=== PATIENT | male | born 1940 | race Caucasian/White ===

== ENCOUNTER → 2020-01-08 07:48 | Outpatient (CLI) | payer MEDICARE, SELFPAY ==
[2019-12-22 15:06] VITALS: BMI 30.8
--- NOTE | 2020-01-08 07:53 | ECHOD_ITS ---
Reason For Study: DYSPNEA Procedure This was a 2D Doppler, Color Flow transthoracic echocardiogram. Exam performed in department. Left Ventricle Normal LV size. Mild concentric left ventricular hypertrophy. The estimated ejection fraction is 53 %. Post operative septal motion. Normal diastology for age. No regional wall motion abnormalities noted. Right Ventricle Normal RV size. Normal systolic function. Tricuspid Valve Normal tricuspid valve. Mild tricuspid valve insufficiency. Pulmonary artery systolic pressure is 28 mmHg. Aortic Valve Mean aortic valve gradient 5 mmHg. Bioprosthetic aortic valve. Great Vessels Normal aortic root. The pulmonary artery is normal size. Normal inferior vena cava. Pericardium/Pleural No pericardial effusion. MMode/2D Measurements & Calculations LVIDd: 4.5 cm IVSd: 1.4 cm LVOT diam: 2.0 cm LVIDs: 3.0 cm LVPWd: 1.3 cm RVDd: 4.1 cm FS: 33.7 % LVOT area: 3.3 cm2 Ao root diam: 4.2 cm LAV(MOD-bp): 54.1 ml LVAd ap4: 34.2 cm2 LAV(MOD-bp) Indexed: 27.0 ml/m2 EDV(MOD-sp4): 110.6 ml LAV(MOD-sp2): 42.4 ml EDV(sp4-el): 113.0 ml LAV(MOD-sp4): 62.2 ml LVAs ap4: 19.7 cm2 ESV(MOD-sp4): 51.0 ml ESV(sp4-el): 46.3 ml EF(MOD-sp4): 53.9 % EF(sp4-el): 59.0 % SV(MOD-sp4): 59.7 ml SV(sp4-el): 66.7 ml LA A4 area: 19.7 cm2 LA dimension(2D): 5.2 cm RA A4 area: 16.6 cm2 Time Measurements MV dec time: 0.21 sec Doppler Measurements & Calculations MV E max nathaniel: 98.1 cm/sec Lat Peak E' Nathaniel: 10.3 cm/sec Med Peak E' Nathaniel: 3.4 cm/sec MV A max nathaniel: 96.5 cm/sec E/E' lat: 9.6 E/E' med: 29.2 MV E/A: 1.0 MV V2 max: 95.2 cm/sec Ao V2 max: 158.4 cm/sec LV V1 max: 74.4 cm/sec MV max P.6 mmHg Ao max P.0 mmHg LV V1 max P.2 mmHg MV V2 mean: 49.8 cm/sec Ao V2 mean: 107.6 cm/sec LV V1 mean P.3 mmHg MV mean P.3 mmHg Ao mean P.2 mmHg LV V1 mean: 53.4 cm/sec MV V2 VTI: 36.7 cm Ao V2 VTI: 36.6 cm LV V1 VTI: 19.1 cm MVA(VTI): 1.7 cm2 VIANEY(I,D): 1.7 cm2 VIANEY(V,D): 1.5 cm2 SV(LVOT): 62.6 ml PA V2 max: 159.0 cm/sec TR max nathaniel: 242.5 cm/sec TR max P.5 mmHg MV P1/2t-pr_phl: 93.4 msec Interpretation Summary Normal LV size. Mild concentric left ventricular hypertrophy. The estimated ejection fraction is 53 %. Normal diastology for age. Bioprosthetic aortic valve. Mean aortic valve gradient 5 mmHg. Ordering Physician: Aramis Larson Referring Physician: JOHNNY FRANCIS Performed By: Lyly Sanders, PÉREZ, RVT
[2020-01-08 10:40] LABS: T4 Free Direct 0.85 ng/dL (0.76-1.46)
[2020-01-08 12:25] LABS: BNP,B-Type NATRIURETIC PEPTIDE 156.3 pg/mL (0-100)
== END ==
PROVIDERS: PCP Family Medicine; Referring Provider Internal Medicine Cardiovascular Disease; Visit Provider Internal Medicine Cardiovascular Disease
DX: R06.00 Dyspnea, unspecified (principal); R06.02 Shortness of breath; I25.10 Atherosclerotic heart disease of native coronary artery without angina pectoris; Z95.2 Presence of prosthetic heart valve; M79.89 Other specified soft tissue disorders; R79.89 Other specified abnormal findings of blood chemistry
CPT/HCPCS: 36415; 83880; 84439; 84443; 93306

== ENCOUNTER → 2024-05-08 | Outpatient (CLI) | payer MEDICARE, SELFPAY ==
--- NOTE | 2024-05-08 12:53 | VDLE_ITS ---
Reason For Study: PAIN RIGHT LEFT GSV is normal. GSV is normal. CFV is compressible, spontaneous, phasic, CFV is compressible, spontaneous, phasic, competent and demonstrates normal competent, and demonstrates normal augmentation. augmentation. FV is compressible, spontaneous, phasic, FV is compressible, spontaneous, phasic, competent and demonstrates normal competent and demonstrates normal augmentation. augmentation. POP V is compressible, spontaneous, phasic, POP V is compressible, spontaneous, phasic, competent and demonstrates normal competent and demonstrates normal augmentation. augmentation. T/P Trunk is compressible. T/P Trunk is compressible. PTV is compressible. PTV is compressible. RT PerV is compressible. LT PerV is compressible. NON-VASCULAR structure noted in RT POP FOSSA measuring 3.46 cm x 1.54 cm. Procedure This is a venous duplex using B-mode, color flow and spectral Doppler. Exam performed in department. A preliminary report was called and/or faxed to Cristal Giron @ [phone] @ 13:20. VL/Venous Duplex US - Claudy Extrem Interpretation Summary Deep veins of the lower extremities are bilaterally patent and compressible seg mentally. There is no evidence of deep vein thrombosis on either side. Valvular competence appears in tact within the proximal deep venous systems bilaterally. The great saphenous veins appear bila terally patent and compressible segmentally. A non-vascular, hypoechoic structure is noted in the right popliteal space, measuring 3.46 cm x 1.54 cm. This probably represents a popliteal cyst. Clinical correlation is advised. Ordering Physician: Cristal Giron Referring Physician: Oniel Posada Performed By: Ashtyn Foster, JAZLYNCS, RVT
== END | disposition home or self-care (01) ==
LOC: CVS 12:46
PROVIDERS: PCP Family Medicine; Referring Provider Nurse Practitioner Family; Visit Provider Nurse Practitioner Family
DX: M79.604 Pain in right leg (principal); M79.605 Pain in left leg; R60.0 Localized edema
CPT/HCPCS: 93970

== ENCOUNTER 2025-01-19 03:53 | Observation (INO) | payer MEDICARE, SELFPAY ==
[2025-01-19] VITALS (15 sets, daily range): BP systolic 116–157; BP diastolic 59–98; PULSE 59–69; RESP 17–18; TEMP 36.3–36.8; O2SAT 86–96; BMI 33.4; BMI 32.0
--- NOTE | 2025-01-19 04:00 | CT_ITS ---
PROCEDURE: STROKE BRAIN/HEAD WITHOUT CONT 01/19/2025 REASON FOR EXAM: NEURO DEFICIT, ACUTE, STROKE SUSPECTED TECHNIQUE: STROKE BRAIN/HEAD WITHOUT CONT Coronal and Sagittal reconstruction series were provided. One or more dose reduction techniques were used (e.g., Automated exposure control, adjustment of the mA and/or kV according to patient size, use of iterative reconstruction technique. RADIATION DOSE SUMMARY: CTDlvol: 44.99 mGy DLP: 812 mGycm COMPARISON: None. FINDINGS: Mild diffuse cortical atrophy, commensurate with the patient's age. Scattered hypodense foci in the periventricular and subcortical white matter suggestive of chronic ischemic white matter disease. Normal size of the ventricles and extra-axial spaces for the patient's age. Normal basal ganglia and thalami. Normal brainstem. Normal cerebellum. There is no demonstrated extra-axial, intraparenchymal, or intraventricular hemorrhage. There are no findings of an acute ischemic infarction. Normal calvarium. There is no demonstrated fracture. Normal soft tissue structures. Mild chronic mucosal inflammatory changes of the visualized paranasal sinuses. CT/STROKE Brain/Head without Cont IMPRESSION: No CT evidence for acute brain abnormality. Reading Location: [facility]
--- NOTE | 2025-01-19 04:00 | EKG12_ITS ---
Test Reason : NEURO Blood Pressure : */* mmHG Vent. 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
--- NOTE | 2025-01-19 04:03 | CT_ITS ---
PROCEDURE: STROKE CTA HEAD AND NECK W/CON 01/19/2025 REASON FOR EXAM: NEURO DEFICIT, ACUTE, STROKE SUSPECTED TECHNIQUE: STROKE CTA HEAD AND NECK W/CON Multiplanar Sagittal and Coronal images were obtained. CONTRAST: Isovue-300 70 VOLUME: 100 mL One or more dose reduction techniques were used (e.g., Automated exposure control, adjustment of the mA and/or kV according to patient size, use of iterative reconstruction technique). RADIATION DOSE SUMMARY: CTDlvol: 19.77 mGy DLP: 816 mGycm COMPARISON: CT scan of the head on 01/19/2025. FINDINGS: Normal bilateral petrous carotid arteries. Calcified atheromatous plaques with mild multifocal stenosis of the right cavernous carotid artery with a normal supraclinoid bifurcation. Calcified atheromatous plaques with mild multifocal stenosis of the left cavernous carotid artery with a normal supraclinoid bifurcation. Normal right A1 segments of the anterior cerebral artery. Normal left A1 segments of the anterior cerebral artery. Normal intact anterior communicating artery (ACOM). Normal bilateral A2 segments of the anterior cerebral arteries. Normal right M1 and M2 segments of the middle cerebral arteries, with a normal M1 bifurcation. Normal left M1 and M2 segments of the middle cerebral arteries, with a normal M1 bifurcation. Normal right posterior communicating artery (PCOM). Normal left posterior communicating artery (PCOM). Normal bilateral vertebral arteries. Normal basilar artery with a normal basilar bifurcation. The visualized bilateral superior cerebellar (SCA) arteries are normal. Normal bilateral P1, P2 and visualized P3 segments of the posterior cerebral arteries. There is no demonstrated aneurysm of the [place]. There is no major vessel occlusion or hemodynamically significant stenosis. There is no demonstrated abnormality of the visualized brain. Technique: Axial CT angiographic images of the neck. Reformatted coronal and sagittal images. 3D, MIP images. Reconstructed images were reviewed on a different workstation by radiologist. RIGHT CAROTID ARTERIES: Normal right common carotid artery (CCA). 20% stenosis of the right common carotid bulb. 20% stenosis of the origin of the right internal carotid (ICA) artery without a hemodynamically significant stenosis. Normal visualized cervical portion of the right internal carotid artery. Normal origin of the right external carotid artery (ECA). LEFT CAROTID ARTERIES: Normal left common carotid artery (CCA). 20% stenosis of the left common carotid bulb. 20% stenosis of the origin of the left internal carotid (ICA) artery without a hemodynamically significant stenosis. Normal visualized cervical portion of the left internal carotid artery. Normal origin of the left external carotid artery (ECA). VERTEBRAL ARTERIES: 20% stenosis of the bilateral vertebral artery without a hemodynamically significant stenosis. CT/STROKE CTA Head AND Neck W/Con IMPRESSION: Atherosclerosis without high-grade stenosis. [facility]
--- OUTSIDE RECORDS SUMMARY | 2025-01-19 04:06 | XMS RPT_ITS | CCD ---
Author Organization [facility] Care Securities Clerk Name Role Phone KIZZY BAILEY Attending Unavailable KIZZY BAILEY Referring Unavailable Oniel Francis Primary Care Unavailable KIZZY BAILEY Attending Unavailable KIZZY BAILEY Referring Unavailable Oniel Francis Primary Care Unavailable ARLENE ROMAN Admitting Unavailable ARLENE ROMAN Attending Unavailable Oniel Francis Primary Care Unavailable Oniel Francis MD Primary Care Provider No, Referral Unavailable Unavailable Oniel Francis MD Primary Care Provider Oniel Francis MD Primary Care Provider Oniel Francis MD Primary Care Provider [phone] No, Referral Unavailable Unavailable No, Referral Unavailable Unavailable Oniel Francis MD Primary Care Provider Oniel Francis MD Primary Care Provider ONIEL FRANCIS MD Primary Care Physician [facility] PT Amy Unavailable Unavailable JAVI BARTH, DR DEAN Abbott Attending Unavailab Roseanne BARTH, ONIEL Abbott Primary Care Unavailable JAVI BARTH, DR DEAN Abbott Attending UnavailONIEL Doe MD Primary Care Unavailable JAVI BARTH, DR DEAN Abbott Attending Unavailab Roseanne BARTH, ONIEL Abbott Primary Care Unavailable DR DEAN CALDWELL MD Admitting Unavailab AMY [employer] Unavailable Oniel Francis Primary Care Unavailable Zina Duran Referring Unavailable Zina Duran Attending Unavailable Bree CLOTH WIRE WEAVERZina PATEL Unavailable Ella Valdovinos PA-C Unavailable [phone] Oniel Francis MD Primary Care Provider TITO, ONIEL A Primary Care Unavailable TITO, ONIEL A Referring Unavailable TITO, ONIEL A Primary Care Unavailable TITO, ONIEL A Referring Unavailable TITO, ONIEL A Primary Care Unavailable ELLA VALDOVINOS Attending Unavailable ZINA DURAN Referring Unavailable TITO, ONIEL A Primary Care Unavailable TITO, ONIEL A Primary Care Unavailable SELF Referring Unavailable ABBY PATE Attending Unavailable TITO, ONIEL A Primary Care Unavailable TITO, ONIEL A Attending Unavailable TITO, ONIEL A Primary Care Unavailable ELLA VALDOVINOS Attending Unavailable ZINA DURAN Attending Unavailable TITO, ONIEL A Primary Care Unavailable MARJ MACKEY Attending Unavailable MARJ MACKEY Referring Unavailable TITO, ONIEL A Primary Care Unavailable MARJ MACKEY Referring Unavailable TITO, ONIEL A Primary Care Unavailable ABBY PATE Attending Unavailable ABBY PATE Referring Unavailable TITO, ONIEL A Primary Care Unavailable MARJ MACKEY Referring Unavailable TITO, ONIEL A Primary Care Unavailable TITO, ONIEL A Primary Care Unavailable SHAMAR BARLOW Referring Unavailable TITO, ONIEL A Primary Care Unavailable TITO, ONIEL A Primary Care Unavailable MARJ MACKEY Attending Unavailable MARJ MACKEY Referring Unavailable Tito , Dr. Engle Primary Care Provider [phone] Dr. Aramis Larson MD Attending Provider Allergies Allergy Classification Reported Allergen(s) Allergy Type Date of Onset Reaction(s) Facility Iodine (and Iodine containting drugs) (2 sources) Iodine Drug Allergy 3 Other: See Comments [facility] Penicillins (antibiotic) (2 sources) Penicillin G Drug Allergy [address] [facility] (20 sources) Iodine; Translations: [IODINE] Drug Allergy 3 Other: See Comments [facility] Repository (20 sources) Penicillin; Translations: [PENICILLIN G] Drug Allergy 3 [facility] [place] Repository (3 sources) Contrast media; Translations: [iodinated radiocontrast agents] Allergy to substance Hypotension [facility] (3 sources) Penicillin; Translations: [penicillin] Drug Allergy Rash [facility] (1 source) Penicillins Drug allergy (disorder) 1 [facility] Repository (1 source) Penicillins Allergy to substance 1 [facility] Medications Current Medications Medication Drug Class(es) Dates Sig (Normalized) Sig (Original) acetaminophen 500 mg oral capsule (20 sources) Start: 02-19-2024 End: 03-04-2024 take 1 capsule by mouth once daily acetaminophen 500 mg oral capsule Dose : 1,000 mg = 2 cap(s), Oral, TID, PRN for pain, not to exceed 3000 mg/day, # 100 cap(s), 0 Refill(s), 03/04/24 8:41:00 AM EDT, Pharmacy: [facility]/pharmacy #[id number], 170.2, cm, 02/18/24 17:02:00 EDT, Height, kg, 02/18/24 17:02:00 EDT, Dosing Weight Start Date: 02/19/24 Stop Date: 03/04/24 Status: Ordered Start: 05-29-2019 take 2 tablets by mo uth three times daily as needed Acetaminophen 500 mg tablet Active 1000 mg PO THREE TIMES A DAY as needed May 29, 2019 12:00am take 2 tablets by mo uth every eight hours as needed acetaminophen (TYLENOL) 500 mg tablet Take 1,000 mg by mouth every 8 hours as needed for Pain. Active Comment on above: Take 1,000 mg by filemon th every 8 hours as needed for Pain. acetaminophen 500 mg / diphenhydrAMINE hydrochloride 25 mg oral tablet (3 sources) Histamine-1 Receptor Antagonist Start: 4 take 1 tablet by mouth once daily at bedtime as needed for pain Tylenol PM Extra Strength oral tablet Dose = 2 tab(s), Oral, qHS, PRN as needed for pain, # 20 tab(s), 0 Refill(s) Start Date: 01/27/24 Status: Ordered aspirin 81 mg chewable tablet (20 sources) Platelet Aggregation Inhibitor, Nonsteroidal Anti-inflammatory Drug Start: 0 take 1 tablet by mouth once daily Aspirin 81 mg tablet,chewable Active 81 mg PO DAILY December 22, 2019 3:09pm Start: 12-11-2019 take 1 tablet by filemon th once daily aspirin, enteric coated (ECOTRIN LOW STRENGTH) 81 mg EC tablet Take 1 tablet by mouth once daily. 12/11/2019 Active Start: 06-03-2019 End: 12-22-2019 take 2 tablets by mouth twice daily Aspirin 81 mg tablet,chewable Discontinued 162 mg PO TWICE A DAY June 03, 2019 9:19am December 22, 2019 3:11pm Start: 05-29-2019 End: 06-03-2019 take 2 tablets by mouth once daily Aspirin 81 mg tablet,chewable Discontinued 162 mg PO DAILY May 29, 2019 1:55pm June 03, 2019 9:22am Start: 05-28-2016 End: 05-29-2019 take 1 tablet by mouth every other day Aspirin 81 MG tablet,chewable Discontinued 81 mg PO EVERY OTHER DAY May 28, 2016 12:00am May 29, 2019 2:01pm Comment on above: Take 1 tablet by filemon th once daily. atorvastatin 80 mg oral tablet (20 sources) HMG-CoA Reductase Inhibitor Start: End: take 1 tablet by mouth once daily atorvastatin (LIPITOR) 80 mg tablet Indications: Mixed hyperlipidemia Take 1 tablet by mouth once daily. 90 tablet 1 11/02/2024 Active Start: 07-31-2023 take 1 tablet by filemon th once daily atorvastatin (LIPITOR) 80 mg tablet Indications: Mixed hyperlipidemia Take 1 tablet by mouth once daily. 90 tablet 1 07/31/2023 Active Start: 12-25-2022 take 1 tablet by filemon th once daily atorvastatin (LIPITOR) 80 mg tablet Indications: Mixed hyperlipidemia Take 1 tablet by mouth once daily. 90 tablet 1 12/25/2022 Active Start: 12-13-2021 End: 06-22-2022 take 1 tablet by mouth once daily atorvastatin (LIPITOR) 80 mg tablet Indications: Mixed hyperlipidemia Take 1 tablet by mouth once daily. 90 tablet 1 06/22/2022 Active Start: 05-28-2016 End: 11-07-2021 take 1 tablet by mouth once daily atorvastatin (LIPITOR) 40 mg tablet Indications: Mixed hyperlipidemia Take 1 tablet by mouth once daily. 90 tablet 1 11/08/2021 Active Comment on above: Take 1 tablet by filemon th once daily. carbidopa 25 mg / levodopa 100 mg oral tablet (20 sources) Aromatic Amino Acid Decarboxylation Inhibitor, Aromatic Amino Acid Start: End: take 3 tablets by mouth three times daily carbidopa-levodopa (SINEMET 25-100) 25-100 mg per tablet Indications: Parkinson's disease with dyskinesia and fluctuating manifestations (HCC) Take 3 tablets by mouth three times a day. 810 tablet 3 09/11/2024 09/11/2025 Active Comment on above: Take 3 tablets by mo uth three times daily. TAKE 3 TABLETS 3 GUSTAVO ES A DAY cholecalciferol 0.025 mg oral tablet (20 sources) Vitamin D Start: take 1 tablet by mouth twice daily Cholecalciferol (Vitamin D3) 25 mcg (1,000 unit) tablet Active 2000 U PO TWICE A DAY February 03, 2021 8:49am Start: 05-29-2019 End: 02-03-2021 take 1 tablet by mouth once daily Cholecalciferol (Vitamin D3) 1,000 unit (25 mcg) tablet Discontinued 4000 U PO DAILY May 29, 2019 1:58pm February 03, 2021 8:52am Start: 06-25-2016 take 2 tablets by mo uth once daily Cholecalciferol, Vitamin D3, 2,000 unit cap Take 2 tablets by mouth once daily. 0 06/25/2016 Active Start: 05-28-2016 End: 05-29-2019 take 2 tablets by mouth twice daily Cholecalciferol (Vitamin D3) 1,000 UNIT tablet Discontinued 2000 U PO TWICE A DAY May 28, 2016 12:00am May 29, 2019 2:01pm Comment on above: Take 2 tablets by mo ut once daily. clindamycin 150 mg oral capsule (20 sources) Lincosamide Antibacterial Start: 02-04-20 take 4 capsules by mouth once as needed Clindamycin Hcl 150 mg capsule Active 600 mg PO ONCE as needed February 03, 2021 12:00am Start: 12-29-2019 clindamycin (C LEOCIN) 150 mg capsule Take 4 tabs 30-60 min before dental procedures. 4 capsule 3 12/29/2019 Active Comment on above: Take 4 tabs 30-60 mi n before dental procedures. SENOKOT-S (2 sources) Start: 02-19-2024 Senokot S Dose = 2 tab(s), Oral, BID, Take until first bowel movement, then as needed, 0 Refill(s) Start Date: 02/19/24 Status: Ordered Start: 05-29-2019 End: 06-03-2019 Sennosides-Docusate Sodium ( Senna-S) 8.6-50 mg tablet Discontinued 1 {tbl} PO TWICE A DAY as needed May 29, 2019 12:00am June 03, 2019 9:21am doxycycline hyclate 100 mg oral tablet (3 sources) Tetracycline-class Drug Start: 12-14-2023 End: 12-21-2023 take 1 tablet by mouth twice daily doxycycline (VIBRA-TABS) 100 mg tablet Indications: Acute cough Take 1 tablet by mouth two times a day for 7 days. 14 tablet 0 12/14/2023 12/21/2023 Active Start: 02-19-2022 End: 02-26-2022 take 1 tablet by mouth twice daily doxycycline monohydrate 100 mg tablet Indications: Rash Take 1 tablet by mouth twice daily for 7 days. 14 tablet 0 02/19/2022 02/26/2022 Active Comment on above: Take 1 tablet by filemon twice daily for 7 days. ezetimibe 10 mg oral tablet (20 sources) Dietary Cholesterol Absorption Inhibitor Start: End: take 1 tablet by mouth once daily ezetimibe (ZETIA) 10 mg tablet Indications: Hyperlipidemia, unspecified hyperlipidemia type Take 1 tablet by mouth once daily. 90 tablet 3 08/31/2024 Active Start: 10-31-2023 End: 07-10-2024 take 1 tablet by mouth once daily ezetimibe (ZETIA) 10 mg tablet Indications: Hyperlipidemia, unspecified hyperlipidemia type Take 1 tablet by mouth once daily. 90 tablet 3 10/31/2023 07/10/2024 Discontinued Start: 04-30-2022 End: 10-29-2022 take 1 tablet by mouth once daily ezetimibe (ZETIA) 10 mg tablet Indications: Hyperlipidemia, unspecified hyperlipidemia type Take 1 tablet by mouth once daily. 90 tablet 3 10/29/2022 Active Comment on above: Take 1 tablet by filemon once daily. famotidine 20 mg oral tablet (1 source) Histamine-2 Receptor Antagonist Start: 02-19-2024 Pepcid 20 mg oral tablet Dose : 20 mg = 1 tab(s), Oral, qDay, # 30 tab(s), 0 Refill(s), Pharmacy: [facility]/pharmacy #[id number], 170.2, cm, 02/18/24 17:02:00 EDT, Height, kg, 02/18/24 17:02:00 EDT, Dosing Weight Start Date: 02/19/24 Status: Ordered Fish Oils (3 sources) Start: 01-27-2024 Fish Oil 1000 mg oral capsule Dose : 1,000 mg = 1 cap(s), Oral, qDay, # 90 cap(s), 0 Refill(s) Start Date: 01/27/24 Status: Ordered fluticasone propionate 0.05 mg/actuat metered dose nasal spray (20 sources) Corticosteroid Start: 05-29-2019 End: 02-03-2021 Fluticasone Propionate (Allergy Relief (Fluticasone)) 50 mcg/actuation spray,suspension Active 1 NMA INTRANASAL DAILY as needed February 03, 2021 8:50am Start: 06-20-2018 take 1 spray(s) by m out once daily fluticasone (FLONASE) 50 mcg/actuation nasal spray Use 1 Blum in each nostril once daily. Rinse mouth after use. 1 Bottle 5 06/20/2018 Active Comment on above: Use 1 Blum in each nostril once daily. Rinse mouth after use. levothyroxine sodium 0.025 mg oral tablet (20 sources) l-Thyroxine Start: 01-27-2024 Synthroid 25 mcg (0.025 mg) oral tablet Dose : 25 mcg = 1 tab(s), Oral, qDayAC, 0 Refill(s) Start Date: 01/27/24 Status: Ordered Start: 07-31-2023 End: 11-02-2024 take 1 tablet by mouth once daily for thyroid dysfunction levothyroxine (SYNTHROID) 25 mcg tablet Take 1 tablet by mouth once daily. Take on empty stomach. For thyroid. 90 tablet 1 11/02/2024 Active Start: 12-25-2022 take 1 tablet by filemon once daily for thyroid dysfunction levothyroxine (SYNTHROID) 25 mcg tablet Take 1 tablet by mouth once daily. Take on empty stomach. For thyroid. 90 tablet 1 12/25/2022 Active Start: 02-03-2021 End: 11-08-2022 take 1 tablet by mouth once daily for thyroid dysfunction levothyroxine (SYNTHROID) 25 mcg tablet Take 1 tablet by mouth once daily. Take on empty stomach. For thyroid. 90 tablet 1 11/08/2022 Active Comment on above: Take 1 tablet by filemon once daily. Take on empty stomach. For thyroid. meloxicam 15 mg oral tablet (20 sources) Nonsteroidal Anti-inflammatory Drug Start: 3 meloxicam (MOBIC) 15 mg tablet once daily. 12/05/2022 Active Comment on above: once daily. metoprolol tartrate 50 mg oral tablet (20 sources) beta-Adrenergic Parth Start: 0 End: 4 take 1 tablet by mouth twice daily metoprolol tartrate, short acting, (LOPRESSOR) 50 mg tablet Indications: Essential hypertension Take 1 tablet by mouth two times a day. 180 tablet 1 05/11/2024 Active Start: 06-03-2019 End: 12-22-2019 take 1 tablet by mouth twice daily Metoprolol Tartrate 25 mg tablet Discontinued 25 mg PO TWICE A DAY June 03, 2019 12:00am December 22, 2019 3:11pm Start: 05-29-2019 End: 06-03-2019 take 2 tablets by mouth twice daily Metoprolol Tartrate 25 mg tablet Discontinued 50 mg PO TWICE A DAY May 29, 2019 1:54pm June 03, 2019 9:20am Start: 05-28-2016 End: 05-29-2019 take 1 tablet by mouth twice daily Metoprolol Tartrate 25 MG tablet Discontinued 25 mg PO TWICE A DAY May 28, 2016 12:00am May 29, 2019 2:01pm Comment on above: Take 1 tablet by filemon twice daily. Take 1 tablet by filemon two times a day. mometasone furoate 1 mg/ml topical cream (5 sources) Corticosteroid Start: 12-26-19 23 End: 12-04-19 24 mometasone (ELOCON) 0.1 % cream Apply to areas twice a day. On for 4 days and off for 3 days. Repeat as needed. 15 g 1 12/25/2022 12/04/2023 Active Comment on above: Apply to areas twice a day. On for 4 days and off for 3 days. Repeat as needed. Erqxejya-Leh-Ur-Lycop en-Lutein 1 EACH tablet (1 source) Start: 05-28-20 Cpwnvijf-Nsy-Kg-Lyco pen-Lutein 1 EACH tablet Active 1 NMA PO DAILY May 28, 2016 12:00am Multivitamin preparation (3 sources) Start: 01-27-20 take 1 tablet by mouth once daily Multivitamin Dose = 1 tab(s), Oral, Daily, 0 Refill(s) Start Date: 01/27/24 Status: Ordered multivitamins w-minerals/lut(CENTRU M SILVER TAB) (20 sources) Start: 01-14-20 10 multivitamins w-minerals/lut(CENTR UM SILVER TAB) One tablet daily 0 01/13/2010 Active Comment on above: One tablet daily nitroglycerin 0.4 mg sublingual tablet (20 sources) Nitrate Vasodilator Start: 07-03-20 End: 02-26-20 nitroglycerin 0.4 mg sublingual tablet 0.4 mg Dose = 1 tab(s), Sublingual, q5min, PRN for chest pain, # 25 tab(s), 0 Refill(s) Start Date: 01/27/24 Status: Ordered Start: 06-03-2019 End: 07-03-2021 nitroglycerin sublingual (NI TROQUICK) 0.4 mg SL tablet Dissolve 1 tablet under the tongue every 5 minutes as needed. 5 tablet 1 06/09/2021 Active Start: 01-26-2017 End: 05-29-2019 Nitroglycerin 0.4 MG tablet Discontinued 0.4 mg SL Q5M as needed for Chest Pain January 26, 2017 12:00am May 29, 2019 1:59pm Comment on above: Dissolve 1 tablet un gunjan the tongue every 5 minutes as needed. [place]-3 Fatty Acids-Fish Oil 1 EACH capsule (1 source) Start: 05-28-20 16 [place]-3 Fatty Acids-Fish Oil 1 EACH capsule Active 1 NMA PO TWICE A DAY May 28, 2016 12:00am omega-3 fatty acids/vitamin e(FISH OIL 1,000 MG CAP) (20 sources) Start: 01-14-20 10 omega-3 fatty acids/vitamin e(FISH OIL 1,000 MG CAP) one tablet twice daily 0 01/13/2010 Active Comment on above: one tablet twice aliyah ly oxyCODONE hydrochloride 5 mg oral tablet (1 source) Opioid Agonist Start: 02-19-20 End: 02-26-20 24 take 1-2 tablets by mouth every four hours as needed for pain oxyCODONE 5 mg oral tablet ( IMMEDIATE release ) See Instructions, PRN as needed for pain, 1-2 tab(s) Oral q4h, # 42 tab(s), 0 Refill(s), 02/26/24 8:43:00 AM EDT, Pharmacy: [facility]/pharmacy #[id number], Status post total left knee replacement, 170.2, cm, 02/18/24 17:02:00 EDT, Height, 88, kg, 02/18/24 17:02:00 EDT, Dosing Weight Start Date: 02/19/24 Stop Date: 02/26/24 Status: Ordered perflutren lipid microspheres 1.3 mL in NaCl (PF) 0.9% 10 mL injection (DEFINADMETA) (20 sources) Start: 06-24-20 End: 09-22-19 perflutren lipid microspheres 1.3 mL in NaCl (PF) 0.9% 10 mL injection (DEFINADMETA) 24 hr propranolol hydrochloride 80 mg extended release oral capsule (4 sources) beta-Adrenergic Parth Start: 09-17-19 End: 03-16-20 take 1 capsule by mouth once daily propranolol ER (INDERAL LA) 80 mg 24 hr capsule Indications: Tremor Take 1 capsule by mouth once daily. 90 capsule 1 09/17/2024 03/16/2025 Active rivaroxaban 10 mg oral tablet (1 source) Factor Xa Inhibitor Start: 02-19-20 Xarelto 10 mg oral tablet Dose : 10 mg = 1 tab(s), Oral, qDay, 1 tablet daily for 2 weeks postoperatively due to past history of DVT, # 13 tab(s), 0 Refill(s), Pharmacy: [facility]/pharmacy #[id number], 170.2, cm, 02/18/24 17:02:00 EDT, Height, 88, kg, 02/18/24 17:02:00 EDT, Dosing Weight Start Date: 02/19/24 Status: Ordered 125 ml sodium chloride 9 mg/ml prefilled syringe (20 sources) Start: 06-24-20 End: 09-22-19 sodium chloride 0.9 % (flush) 10 mL (BD POSIFLUSH) tamsulosin hydrochloride 0.4 mg oral capsule (20 sources) alpha-Adrenergic Parth Start: 04-07-20 End: 08-03-20 take 2 capsules by mouth once daily at bedtime tamsulosin (FLOMAX) 0.4 mg Indications: Benign localized prostatic hyperplasia with lower urinary tract symptoms (LUTS) TAKE 2 CAPSULES BY MOUTH DAILY AT BEDTIME. 180 capsule 1 08/03/2024 Active Start: 02-10-2024 End: 04-07-2024 take 1 capsule by mouth once daily at bedtime tamsulosin (FLOMAX) 0.4 mg Take 1 capsule by mouth daily at bedtime. 30 capsule 5 02/10/2024 04/07/2024 Discontinued traZODone hydrochloride 50 mg oral tablet (5 sources) Serotonin Reuptake Inhibitor Start: 09-11-2024 End: 03-10-2025 take 1 tablet by mouth once daily at bedtime traZODone (DESYREL) 50 mg tablet Indications: Insomnia, unspecified type Take 1 tablet by mouth daily at bedtime. 90 tablet 1 09/11/2024 03/10/2025 Active vitamin b12 0.5 mg sublingual tablet (20 sources) Vitamin B12 Start: 05-29-2019 take 2 tablets by mouth once daily cyanocobalamin, vitamin B-12, 500 mcg ODT Indications: B12 deficiency Take 2 tablets by mouth once daily. 12/12/2021 Active Start: 10-18-2014 End: 05-29-2019 take 1 tablet under the tongue once daily Cyanocobalamin (Vitamin B-12) 500 MCG tablet, sublingual Discontinued 500 ug SL DAILY May 28, 2016 12:00am May 29, 2019 2:01pm Comment on above: Dissolve 500 mcg und er the tongue once daily. Take 2 tablets by [facility] once daily. Vitamin B12 500 mcg oral tablet (3 sources) Start: 01-27-2024 Vitamin B12 500 mcg oral tablet Dose : 500 mcg = 1 tab(s), Oral, Daily, 0 Refill(s) Start Date: 01/27/24 Status: Ordered Vitamin D3 (3 sources) Start: 01-27-2024 Vitamin D3 Dose : 100 mcg = 1 tab(s), Oral, Daily, # 90 tab(s), 0 Refill(s) Start Date: 01/27/24 Status: Ordered Completed/Discontinued Medications Medication Drug Class(es) Dates Sig (Normalized) Sig (Original) furosemide 40 mg oral tablet (20 sources) Loop Diuretic Start: 01-08-2020 End: 02-10-2024 take 1 tablet by mouth once daily Furosemide (Lasix) 40 mg tablet Discontinued 40 mg PO DAILY April 13, 2020 12:17pm August 10, 2021 5:46pm Comment on above: Take 1 tablet by filemon th once daily. Per cardio 24 hr isosorbide mononitrate 30 mg extended release oral tablet (1 source) Nitrate Vasodilator Start: 05-28-2016 End: 05-29-2019 Isosorbide Mononitrate 30 MG tablet Discontinued 45 mg PO DAILY May 28, 2016 12:00am May 29, 2019 1:59pm primidone 250 mg oral tablet (3 sources) Anti-epileptic Agent Start: 12-22-2019 End: 02-03-2021 take 1 tablet by mouth at bedtime Primidone 250 mg tablet Discontinued 250 mg PO AT BEDTIME December 22, 2019 12:00am February 03, 2021 8:51am Start: 05-28-2016 End: 12-22-2019 take 1 tablet by mouth at bedtime Primidone 50 mg tablet Discontinued 250 mg PO AT BEDTIME May 29, 2019 2:00pm December 22, 2019 3:12pm warfarin sodium 10 mg oral tablet (1 source) Vitamin K Antagonist Start: 05-28-2016 End: 05-29-2019 take 1 tablet by mouth once daily Warfarin 10 MG tablet Discontinued 10 mg PO DAILY May 28, 2016 12:00am May 29, 2019 2:01pm Problems Active Problems Problem Classification Problem Date Documented Da te Episodic/Chronic Complication of device; implant or graft (2 sources) Prosthetic aortic valve regurgitation; Translations: [Other specified complication of cardiac prosthetic devices, implants and grafts, initial encounter] 12-19-2019 Episodic Coronary atherosclerosis and other heart disease (20 sources) Coronary atherosclerosis; Translations: [Atherosclerotic heart disease of [place] coronary artery without angina pectoris] Onset: 08-24-2015 06-22-2019 Chronic Disorders of lipid metabolism (20 sources) Mixed hyperlipidemia; Translations: [Mixed hyperlipidemia] Onset: 10-09-2002 Chronic Essential hypertension (20 sources) Essential hypertension; Translations: [Essential (primary) hypertension] Onset: 10-30-2018 12-17-2018 Chronic Heart valve disorders (20 sources) Nonrheumatic aortic (valve) stenosis; Translations: [History of aortic valve replacement] Onset: 10-09-2002 Resolved: 01-14-2020 12-11-2019 Chronic Comment on above: Prosthetic valve #27 Bernice Rush Pericardial Vlave 10/13/02; REDO AVR w/ #27 CE valve 10/2018 Hyperplasia of prostate (20 sources) Benign prostatic hypertrophy with outflow obstruction; Translations: [Benign prostatic hyperplasia with lower urinary tract symptoms] Onset: 2006 12-18-2018 Chronic Nutritional deficiencies (20 sources) Vitamin D deficiency; Translations: [Vitamin D deficiency, unspecified] Onset: 12-03-2013 11-06-2014 Chronic Occlusion or stenosis of precerebral arteries (20 sources) Bilateral stenosis of carotid arteries; Translations: [Occlusion and stenosis of bilateral carotid arteries] Onset: 10-29-2008 12-07-2020 Chronic Comment on above: LCEA Open wounds of extremities (1 source) Laceration of finger without foreign body; Translations: [Laceration without foreign body of unspecified finger without damage to nail, initial encounter] 05-29-2019 Episodic Osteoarthritis (20 sources) Arthritis of knee; Translations: [Unilateral primary osteoarthritis, unspecified knee] Onset: 02-10-2024 02-10-2024 Chronic Other and unspecified benign neoplasm (1 source) History of polyp of colon; Translations: [History of colonic polyps] 05-11-2020 Episodic Other connective tissue disease (1 source) Artificial knee joint present; Translations: [Presence of left artificial knee joint] Onset: 02-19-2024 Chronic Other connective tissue disease (1 source) Bursitis of olecranon of right elbow; Translations: [Olecranon bursitis, right elbow] Episodic Other connective tissue disease (1 source) Pain in bilateral legs; Translations: [Pain in right leg] 05-07-2024 Episodic Other gastrointestinal disorders (6 sources) Chronic idiopathic constipation; Translations: [Chronic idiopathic constipation] Chronic Other lower respiratory disease (2 sources) Cough; Translations: [Acute cough] 12-14-2023 Episodic Other lower respiratory disease (2 sources) Abnormal findings on diagnostic imaging of lung; Translations: [Other nonspecific abnormal finding of lung field] 12-31-2023 Episodic Other lower respiratory disease (1 source) Hypoxemia; Translations: [Hypoxemia] Onset: 02-19-2024 Episodic Other lower respiratory disease (1 source) Dyspnea; Translations: [Dyspnea, unspecified] 01-08-2020 Episodic Other non-traumatic joint disorders (1 source) Hip pain; Translations: [Pain in right hip] Onset: 12-02-2024 12-02-2024 Episodic Other nutritional; endocrine; and metabolic disorders (20 sources) Obese class I; Translations: [Obesity, unspecified] Onset: 08-26-2018 12-17-2018 Chronic Other skin disorders (1 source) Eruption; Translations: [Rash and other nonspecific skin eruption] Episodic Other upper respiratory disease (20 sources) Allergic rhinitis; Translations: [Allergic rhinitis, unspecified] Onset: 06-20-2018 12-17-2018 Chronic Parkinson`s disease (20 sources) Parkinson's disease; Translations: [Parkinson's disease] Onset: 12-01-2013 12-07-2020 Chronic Parkinson`s disease (1 source) Parkinson`s disease; Translations: [Parkinson's disease with dyskinesia and fluctuating manifestations (HCC)] Onset: 09-11-2023 Residual codes; unclassified (20 sources) Hypoxia; Translations: [Idiopathic sleep related nonobstructive alveolar hypoventilation] Onset: 07-26-2015 12-07-2020 Chronic Residual codes; unclassified (4 sources) REM sleep behavior disorder; Translations: [REM sleep behavior disorder] Chronic Residual codes; unclassified (3 sources) Insomnia; Translations: [Insomnia, unspecified] 09-11-2023 Episodic Residual codes; unclassified (20 sources) Family history of cancer of colon; Translations: [Family history of malignant neoplasm of digestive organs] Onset: 01-31-2010 Resolved: 07-03-2021 07-03-2021 Episodic Residual codes; unclassified (1 source) Bilateral lower limb edema; Translations: [Localized edema] 05-07-2024 Episodic Spondylosis; intervertebral disc disorders; other back problems (20 sources) Neck pain; Translations: [Cervicalgia] Onset: 10-22-2008 Resolved: 02-22-2011 02-22-2011 Episodic Superficial injury; contusion (1 source) Contusion of finger; Translations: [Contusion of unspecified finger without damage to nail, initial encounter] 05-29-2019 Episodic Thyroid disorders (20 sources) Acquired hypothyroidism; Translations: [Hypothyroidism, unspecified] Onset: 03-16-2020 04-12-2020 Chronic Unclassified (20 sources) Active living will ; Translations: [Living will on file] Onset: 12-12-2021 12-12-2021 Unclassified (1 source) Acute cough; Translations: [Acute cough] Onset: 12-14-2023 Past or Other Problems Problem Classification Problem Date Documented Da te Episodic/Chronic Administrative/social admission (20 sources) Advance directive discussed with patient; Translations: [Other specified counseling] Onset: 2 12-12-2021 Episodic Coagulation and hemorrhagic disorders (20 sources) Blood coagulation disorder; Translations: [Coagulation defect, unspecified] Onset: 9 Resolved: 9 10-30-2018 Chronic Diabetes mellitus without complication (20 sources) Hyperglycemia; Translations: [Hyperglycemia, unspecified] Onset: 6 Resolved: 9 04-12-2020 Episodic Genitourinary symptoms and ill-defined conditions (20 sources) Microscopic hematuria; Translations: [Other microscopic hematuria] Onset: 1 Resolved: 3 01-10-2021 Episodic Joint disorders and dislocations; trauma-related (20 sources) Tear of meniscus of knee; Translations: [Unspecified tear of unspecified meniscus, current injury, unspecified knee, initial encounter] Onset: 6 07-31-2021 Episodic Nutritional deficiencies (20 sources) Cobalamin deficiency; Translations: [Deficiency of other specified B group vitamins] Onset: 5 10-18-2014 Episodic Other aftercare (20 sources) Patient encounter status; Translations: [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] Onset: 7 Resolved: 0 04-12-2020 Episodic Other circulatory disease (20 sources) H/O: heart disorder; Translations: [Personal history of other diseases of the circulatory system] Onset: 3 06-19-2017 Episodic Other connective tissue disease (20 sources) Synovial cyst of right popliteal space; Translations: [Synovial cyst of popliteal space [Mcintosh], right knee] Onset: 7 01-28-2017 Episodic Other connective tissue disease (20 sources) Swelling of hand; Translations: [Other specified soft tissue disorders] Onset: 0 12-31-2019 Episodic Other connective tissue disease (20 sources) Synovial cyst of popliteal space [Mcintosh], right knee; Translations: [Synovial cyst of popliteal space] Onset: 7 01-28-2017 Episodic Other connective tissue disease (2 sources) Pain in right leg; Translations: [Pain in right leg] Onset: 4 Episodic Other connective tissue disease (1 source) Pain in left leg; Translations: [Bilateral leg pain] Onset: 4 Episodic Other lower respiratory disease (20 sources) Dyspnea on exertion; Translations: [Other forms of dyspnea] Onset: 3 06-24-2023 Episodic Other lower respiratory disease (1 source) Other forms of dyspnea; Translations: [SAUCEDA (dyspnea on exertion)] Onset: 3 Episodic Other lower respiratory disease (1 source) Other nonspecific abnormal finding of lung field; Translations: [X-ray of lung, abnormal] Onset: 4 Episodic Other male genital disorders (17 sources) Disorder of prostate; Translations: [Disorder of prostate, unspecified] Onset: 6 06-19-2016 Episodic Other nervous system disorders (20 sources) Other abnormal involuntary movements; Translations: [Abnormal involuntary movements] Onset: 8 Resolved: 2 02-28-2012 Episodic Other nervous system disorders (20 sources) Tremor; Translations: [Tremor, unspecified] Onset: 0 Resolved: 0 01-14-2020 Episodic Other non-traumatic joint disorders (20 sources) Hand joint stiff; Translations: [Stiffness of unspecified hand, not elsewhere classified] Onset: 0 12-31-2019 Episodic Other screening for suspected conditions (not mental disorders or infectious disease) (1 source) Encounter for screening for cardiovascular disorders; Translations: [Screening for ischemic heart disease] Onset: 4 Episodic Other upper respiratory disease (20 sources) Seasonal allergy; Translations: [Other seasonal allergic rhinitis] Onset: 7 Resolved: 0 01-14-2020 Chronic Other upper respiratory infections (4 sources) Viral upper respiratory tract infection; Translations: [Acute upper respiratory infection, unspecified] Onset: 4 Episodic Phlebitis; thrombophlebitis and thromboembolism (20 sources) H/O: Deep vein thrombosis; Translations: [Personal history of other venous thrombosis and embolism] Onset: 7 Resolved: 0 06-19-2017 Episodic Residual codes; unclassified (20 sources) Sleep disorder; Translations: [Sleep disorder, unspecified] Onset: 5 08-24-2015 Episodic Residual codes; unclassified (20 sources) Family history of Parkinson's disease; Translations: [Family history of epilepsy and other diseases of the nervous system] Onset: 0 02-02-2020 Episodic Residual codes; unclassified (5 sources) Active living will ; Translations: [Personal history of other specified conditions] Onset: 2 12-12-2021 Episodic Residual codes; unclassified (20 sources) Family history of malignant neoplasm of gastrointestinal tract; Translations: [Family history of malignant neoplasm of digestive organs] Resolved: 0 01-14-2020 Episodic Residual codes; unclassified (1 source) Localized edema; Translations: [Bilateral lower extremity edema] Onset: 4 Episodic Unclassified (1 source) Tingling and numbness left fingers 05-29-2019 Results Test Name Value Interpretation Reference Range [facility] 09-18-2024 [facility] Telephone ([facility]) SONIYA COOLEY ([id number]) 1940 M Date Time Provider Department 09/18/24 ABBY PATE [facility] During your visit today, we recorded the following information about you: Moni Encarnacion MA 09/18/2024 2:07 PM Signed Abby Pate MD P [facility] Can you let patient know his game agent was OK with me switching metoprolol to propranolol, so I sent in for 80 mg propranolol once a day - he can just change one day to the next from metoprolol to this new propanolol dose. Depending on response we could increase propranolol in the future. Thanks Preicous Caballero RN 09/21/2024 12:16 PM Signed Called patient at [phone]. Left message on voicemail for patient to return call. Moni Encarnacion MA 09/23/2024 1:39 PM Signed Called and spoke with patient. He expressed understanding. Allergies As of Date: 09/18/2024 Noted Allergy Reaction IODINE 10/09/2002 14 - Other: See Comments Comments: ?decreased BP with iodinated contrast during a cardiac cath. Pt reports he was told by the game agent that they almost lost him due to his reaction and was allergic reaction. The patient reports taking 13 hour allergy premedications in the past with Iodinated contrast without experiencing any breakthrough reaction. PENICILLIN G 10/09/2002 4 - Hives Date Reviewed: 09/11/2024 Reviewed by: Moni Encarnacion MA - Fully Assessed Prescriptions as of 09/23/2024 - propranolol ER (INDERAL LA) 80 mg 24 hr capsule Take 1 capsule by mouth once daily. - traZODone (DESYREL) 50 mg tablet Take 1 tablet by mouth daily at bedtime. - carbidopa-levodopa (SINEMET 25-100) 25-100 mg per tablet Take 3 tablets by mouth three times a day. - ezetimibe (ZETIA) 10 mg tablet Take 1 tablet by mouth once daily. - tamsulosin (FLOMAX) 0.4 mg TAKE 2 CAPSULES BY MOUTH DAILY AT BEDTIME. - levothyroxine (SYNTHROID) 25 mcg tablet Take 1 tablet by mouth once daily. Take on empty stomach. For thyroid. - atorvastatin (LIPITOR) 80 mg tablet Take 1 tablet by mouth once daily. - meloxicam (MOBIC) 15 mg tablet once daily. - cyanocobalamin, vitamin B-12, 500 mcg ODT Take 2 tablets by mouth once daily. - nitroglycerin sublingual (NITROQUICK) 0.4 mg SL tablet Dissolve 1 tablet under the tongue every 5 minutes as needed. - clindamycin (CLEOCIN) 150 mg capsule Take 4 tabs 30-60 min before dental procedures. - aspirin, enteric coated (ECOTRIN LOW STRENGTH) 81 mg EC tablet Take 1 tablet by mouth once daily. - acetaminophen (TYLENOL) 500 mg tablet Take 1,000 mg by mouth every 8 hours as needed for Pain. - fluticasone (FLONASE) 50 mcg/actuation nasal spray Use 1 Blum in each nostril once daily. Rinse mouth after use. - Cholecalciferol, Vitamin D3, 2,000 unit cap Take 2 tablets by mouth once daily. - omega-3 fatty acids/vitamin e(FISH OIL 1,000 MG CAP) one tablet twice daily - multivitamins w-minerals/lut(CENTRU M SILVER TAB) One tablet daily Meds Comments as of 11/04/2018: 11/04/18 The medications are managed by this patient by: PATIENT and SPOUSE Rhea Alida Emery Pharm-T Problem List As Of Date 09/18/2024 Noted Resolved Aortic valve disorder [I35.9] 10/09/2002 01/14/2020 Mixed hyperlipidemia [E78.2] 10/09/2002 History of rheumatic heart disease [Z86.79] 10/09/2002 Aortic valve replaced [Z95.2] 11/13/2005 Benign localized prostatic hyperplasia with low*2006 Postsurgical aortocoronary bypass status [Z95.1]2006 Abnormal involuntary movements [R25.8, R25.9] 12/16/2007 02/28/2012 Cervicalgia [M54.2] 10/22/2008 02/22/2011 Carotid stenosis, asymptomatic, bilateral [I65.*10/29/2008 Family history of colon cancer [Z80.0] 01/31/2010 07/03/2021 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/01/2013 Vitamin D deficiency [E55.9] 12/03/2013 B12 deficiency [E53.8] 10/18/2014 Nocturnal hypoxemia [G47.34] 07/26/2015 Sleep disorder [G47.9] 07/26/2015 Coronary 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quechan ballard*08/24/2015 Meniscus tear [S83.209A] 12/27/2015 Elevated blood sugar [R73.9] 06/19/2016 Seasonal allergies [J30.2] 12/17/2016 01/14/2020 Medicare annual wellness visit, subsequent [Z00*12/17/2016 Colon cancer screening [Z12.11] 12/17/2016 01/14/2020 Synovial cyst of right popliteal space [M71.21] 01/28/2017 History of DVT (deep vein thrombosis) [Z86.718] 06/19/2017 Allergic rhinitis [J30.9] 06/20/2018 Obesity, Class I, BMI 30-34.9 [E66.811] 08/26/2018 Stress hyperglycemia [R73.9] 10/29/2018 11/01/2018 Coagulopathy (HCC) [D68.9] 10/29/2018 10/30/2018 Essential hypertension [I10] 10/30/2018 Family history of malignant neoplasm of gastroi* 01/14/2020 Acute deep vein thrombosis (DVT) of distal vein*04/20/2019 01/14/2020 Tremor [R25.1] 12/11/2019 01/14/2020 Family history of Parkinson's disease [Z82.0] 12/11/2019 Stiffness of hand joint [M25.649] 12/31/2019 Swelling of both henderson (more content not included)... Normal [facility] ECHOon 09-17-2024 Echocardiography Echocardiography Report: Transthoracic Echo [facility] Date of service: 09/17/2024 9:23:08 AM ARTS TECHNICIAN Ordering physician: MARJ MACKEY Indication: Routine surveillance of prosthetic valve (>3yrs) Technologist: Michelle Tomlin [facility] Interpreting physician: Tonia Castro MD PATIENT: Name: MR. SONIYA COOLEY : 1940 Age: 83 years Gender: M History of hypertension, coronary artery disease, valvular heart disease and dyslipidemia. Previous cardiovascular interventions: CABG (2002) Aortic valve replacement (2002, 2018) Primary rhythm: sinus. Height: 170.20 cm BSA: 2.08 m Weight: 91.17 kg BMI: 31.5 kg/m Heart rate 52 bpm Blood pressure 106/63 mmHg Technically difficult exam due to body habitus. Color Doppler was utilized to interrogate the cardiac valves assessed and spectral Doppler was utilized to determine the flow velocities and pressure gradients reported in this exam. MEASUREMENTS: Value Indexed Normal Max aortic dimension 4.0 cm Ao < 3.8 Left atrial volume 54 ml (4ch A-L) 26 ml/m Livier <= 34 LV ID (diastole) 4.1 cm (2D) 1.98 cm/m LV ID (systole) 3.0 cm (2D) 1.42 cm/m IVS, leaflet tips 1.5 cm (2D) Posterior wall thickness 1.4 cm (2D) Left ventricular mass 225 g (2D) 109 g/m LV stroke volume 69 ml (2D biplane) LV end diastolic volume 118 ml (2D biplane) 57.1 ml/m 34<=EDVi<75 LV end systolic volume 49 ml (2D biplane) 23.7 ml/m Ejection Fraction 59 % (2D biplane) EF > 52 FINDINGS: LEFT VENTRICLE The left ventricle is normal in size. There is mild concentric left ventricular hypertrophy. Left ventricular systolic function is normal. Grade I left ventricular diastolic dysfunction. Mitral annular lateral E/e': 5.7. Mitral annular septal E/e': 10.5. Wall Motion: All scored segments are normal. RIGHT VENTRICLE The right ventricle is normal in size. Right ventricular systolic function is mildly decreased. RV systolic tissue Doppler velocity is 9.0 cm/s. Estimated right ventricular systolic pressure is 30 mmHg consistent with normal pulmonary artery pressures. Estimated right atrial pressure is 3 mmHg (although IVC not seen). LEFT ATRIUM The left atrial cavity is normal in size. Pulmonary Veins: The pulmonary venous pattern showed normal systolic flow. RIGHT ATRIUM The right atrial cavity is normal in size. MITRAL VALVE There is mild mitral annular calcification observed posterior. There is trace mitral valve regurgitation. The pressure half time is 65 msec. The peak mitral E/A ratio is 0.64. The average mitral E/e' ratio is 8.1. The mitral flow deceleration time is 224 msec. TRICUSPID VALVE The tricuspid valve leaflets are structurally normal. There is moderate (2+) tricuspid valve regurgitation. AORTIC VALVE The aortic valve morphology was not well seen. Bernice-Rush prosthetic valve size #27. There is no aortic valve regurgitation. The peak gradient is 13 mmHg (peak velocity = 183.6 cm/s). The mean gradient is 7 mmHg. The LVOT mean velocity is 68.3 cm/s. The aortic VTI is 36.1 cm. The mean velocity in the aortic valve is 122.4 cm/s. The dimensionless valve index is 0.56. PULMONIC VALVE The pulmonic valve cusps are structurally normal. There is mild (1+) pulmonic valve regurgitation. AORTA The visualized aorta is borderline dilated. Measurements - Mid ascending aorta 4.0 cm. Distal ascending aorta 3.8 cm. INTERATRIAL SEPTUM The interatrial septum is mobile. INTERVENTRICULAR SEPTUM There is abnormal motion of the interventricular septum secondary to prior cardiac surgery. PERICARDIUM There is no pericardial effusion. CONCLUSIONS: - Technically difficult exam due to body habitus. - Exam indication: Routine surveillance of prosthetic valve (>3yrs) - The left ventricle is normal in size. There is mild concentric left ventricular hypertrophy. Left ventricular systolic function is normal. EF = 59 5% (2D biplane) Grade I left ventricular diastolic dysfunction. - The right ventricle is normal in size. Right ventricular systolic function is mildly decreased. - The visualized aorta is borderline dilated with a maximal dimension of 4.0 cm. - There is moderate (2+) tricuspid valve regurgitation. - Bernice-Rush prosthetic aortic valve (size #27). There is no aortic valve regurgitation. The peak gradient is 13 mmHg, the mean gradient is 7 mmHg and the dimensionless valve index is 0.56. Prior pk/mn gradients were 10/6 mmHg. - Exam was compared with the prior CC echocardiographic exam performed on 08/20/2023, prior pk/mn AV gradients were 10/6 mmHg respectively. Prior peak AV velocity was 156.3 cm/s. * * * Final (Updated) * * * CC [employer] [facility] Image : [id number] Normal [facility] CNOVon 09-11-2024 CNOV Office Visit ([facility] ) SONIYA COOLEY ([id number]) 1940 M Date Time Provider Department 09/11/24 3:00 PM ABBY PATE [facility] During your visit today, we recorded the following information about you: Pulse Blood pressure Weight Height 68/minute 150/88 94.1 kg 1.702 m Abby Pate MD 09/17/2024 3:31 PM Addendum Neurology Follow Up Note Subjective Soniya Cooley is an 83 year old male who presents for follow up. CC: PD Summary of prior care: 01/2020 right-handed male with a history of CAD / s/p CABG and AVR, left carotid stenosis s/p CEA, and tremor who presents for evaluation of tremor. His examination demonstrates mild parkinsonian features. His presentation is most consistent with Parkinson's Disease. He has motor features of tremor, mild left sided bradykinesia, and mild gait changes. He has mild hypomimia and hypophonia. 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 First visit 01/2020 taper off primidone, start levodopa, encourage exercise, increase hydration but caution with cardiac disease, start miralax. 05/2020 increase levodopa to 150 mg TID, increase hydration, add miralax. 10/2020 increase to 200 mg TID. 04/2021 increase levodopa to 300 mg TID, add melatonin. 08/2021 taper off levodopa without benefit. 12/2021 had increased to 300 TID, no change. 06/2022 try 250 TID with mild dyskinesia. 03/2023 offered changes deferred. 09/2023 no changes. 03/2024 try 350 mg TID. HPI Current Issues - Maybe tried 3.5 pills per dose for a couple weeks but not completely sure, thinks he did but he isn't sure - Not as sure right now how much it is helping, once forgot a couple doses in a row and woke up the next day very shaky - Will often forget the mid-day dose - Doesn't feel a clear ON effect after taking it - No clear side effects - Constipation good with miralax - Still trouble urinating all night, was started on Flomax 7 12 5 Cd/ld 25/100 3 3 3 Current Outpatient Medications Medication Sig Dispense Refill ezetimibe (ZETIA) 10 mg tablet Take 1 tablet by mouth once daily. 90 tablet 3 tamsulosin (FLOMAX) 0.4 mg TAKE 2 CAPSULES BY MOUTH DAILY AT BEDTIME. 180 capsule 1 levothyroxine (SYNTHROID) 25 mcg tablet Take 1 tablet by mouth once daily. Take on empty stomach. For thyroid. 90 tablet 1 atorvastatin (LIPITOR) 80 mg tablet Take 1 tablet by mouth once daily. 90 tablet 1 metoprolol tartrate, short acting, (LOPRESSOR) 50 mg tablet Take 1 tablet by mouth two times a day. 180 tablet 1 carbidopa-levodopa (SINEMET 25-100) 25-100 mg per tablet TAKE 3 TABLETS 3 TIMES A DAY 810 tablet 2 cyanocobalamin, vitamin B-12, 500 mcg ODT Take 2 tablets by mouth once daily. nitroglycerin sublingual (NITROQUICK) 0.4 mg SL tablet Dissolve 1 tablet under the tongue every 5 minutes as needed. 5 tablet 1 clindamycin (CLEOCIN) 150 mg capsule Take 4 tabs 30-60 min before dental procedures. 4 capsule 3 aspirin, enteric coated (ECOTRIN LOW STRENGTH) 81 mg EC tablet Take 1 tablet by mouth once daily. acetaminophen (TYLENOL) 500 mg tablet Take 1,000 mg by mouth every 8 hours as needed for Pain. fluticasone (FLONASE) 50 mcg/actuation nasal spray Use 1 Blum in each nostril once daily. Rinse mouth after use. 1 Bottle 5 Cholecalciferol, Vitamin D3, 2,000 unit cap Take 2 tablets by mouth once daily. 0 omega-3 fatty acids/vitamin e(FISH OIL 1,000 MG CAP) one tablet twice daily 0 multivitamins w-minerals/lut(CENTRU M SILVER TAB) One tablet daily 0 meloxicam (MOBIC) 15 mg tablet once daily. Current Facility-Administered Medications Medication Dose Route Frequency Provider Last Rate Last Admin perflutren lipid microspheres 1.3 mL in NaCl (PF) 0.9% 10 mL injection (DEFINITY) INTRAVENOUS DIRECTED PRN Marj Mackey MD sodium chloride 0.9 % (flush) 10 mL (BD POSIFLUSH) 10 mL INTRAVENOUS DIRECTED PRN Marj Mackey MD REVIEW OF SYSTEMS His ROS was positive for that mentioned in the HPI. Otherwise a 10-point ROS was completed and was negative. Objective OBJECTIVE 09/11/24 1446 BP: 150/88 BP Site: Right Arm BP Position: Sitting BP Cuff Size: Large Adult Pulse: 68 SpO2: 93% Weight: 94.1 kg (207 lb 7.3 oz) Height: 170.2 cm (5' 7) General: General Appearance: Well appearing, alert, in no acute distress, well-hydrated, well nourished. Head: Normocephalic Neurologic Exam: Mental Status: He is alert. Attention is intact. Language shows normal comprehension and fluency. Affect is appropriate. Cranial Nerves: Extraocular movements show full and smooth pursuits. No nystagmus. Facial activation is symmetric. Hearing is intact to conversation. There is mild hypomimia. There is mild hypophonia. There is no dysarthria. Tongue is midline. Palate elevates symmetrically. Shoulder shrug is normal. Last dose levodopa 300 mg @ 1300, exam 1520 (more content not included)... Normal [facility] Comprehensive metabolic 2000 panelon 09-01-2024 Albumin [Mass/Vol] 4.6 g/dL Normal 3.9-4.9 [facility] Comment on above: Order Comment: Myles gottlieb Type: BLOOD SPECIMEN Ordering Facility: [facility] Address: [address] [place] [address] Performed By: #### 2 4323-8 #### [facility] CLIA [id number] [address] [place] [address] [place] ALP [Catalytic activity/Vol] 96 U/L Normal 38-113 [facility] Comment on above: Order Comment: Myles gottlieb Type: BLOOD SPECIMEN Ordering Facility: [facility] Address: [address] [id number] Performed By: #### 2 4323-8 #### [facility] CLIA [id number] [address] [place] [address] [place] ALT [Catalytic activity/Vol] 34 U/L Normal 10-54 [facility] Comment on above: Order Comment: Myles gottlieb Type: BLOOD SPECIMEN Ordering Facility: [facility] Address: [address] [id number] Performed By: #### 2 4323-8 #### [facility] CLIA [id number] [address] [place] [address] [place] Anion gap [Moles/Vol] 9 mmol/L Normal 8-15 [facility] Comment on above: Order Comment: Speci men Type: BLOOD SPECIMEN Ordering Facility: [facility] Address: [address] [place] [address] Performed By: #### 2 4323-8 #### [facility] CLIA [id number] [address] [place] [address] [place] AST [Catalytic activity/Vol] 26 U/L Normal 14-40 [facility] Comment on above: Order Comment: Speci men Type: BLOOD SPECIMEN Ordering Facility: [facility] Address: [address] [place] [address] Performed By: #### 2 4323-8 #### [facility] CLIA [id number] [address] [place] [address] [place] Bilirubin [Mass/Vol] 0.9 mg/dL Normal 0.2-1.3 [facility] Comment on above: Order Comment: Speci men Type: BLOOD SPECIMEN Ordering Facility: [facility] Address: [address] [place] [address] Performed By: #### 2 4323-8 #### [facility] CLIA [id number] [address] [place] [address] [place] Calcium [Mass/Vol] 10.1 mg/dL Normal 8.5-10.2 [facility] Comment on above: Order Comment: Speci men Type: BLOOD SPECIMEN Ordering Facility: [facility] Address: [address] [place] [address] Performed By: #### 2 4323-8 #### [facility] CLIA [id number] [address] [place] [address] [place] Chloride [Moles/Vol] 104 mmol/L Normal 98-107 [facility] Comment on above: Order Comment: Speci men Type: BLOOD SPECIMEN Ordering Facility: [facility] Address: [address] [place], [place] [address] Performed By: #### 2 4323-8 #### [facility] CLIA [id number] [address] [place] [address] [place] CO2 [Moles/Vol] 27 mmol/L Normal 22-30 [facility] Comment on above: Order Comment: Speci men Type: BLOOD SPECIMEN Ordering Facility: [facility] Address: [address] [place] [address] Performed By: #### 2 4323-8 #### [facility] CLIA [id number] [address] [place] [address] [place] Creatinine [Mass/Vol] 0.84 mg/dL Normal 0.73-1.22 [facility] Comment on above: Order Comment: Speci men Type: BLOOD SPECIMEN Ordering Facility: [facility] Address: [address] [place] [address] Performed By: #### 2 4323-8 #### [facility] CLIA [id number] [address] [place] [address] [place] Creatinine and Glomerular filtration rate.predicted panel (S/P/Bld) 87 mL/min/1.73m??? Normal >=60 [facility] Comment on above: Order Comment: Speci men Type: BLOOD SPECIMEN Ordering Facility: [facility] Address: [address] [place] [address] Result Comment: Janae mated Glomerular Filtration Rate (eGFR) is calculated using the 2020 CKD-EPI creatinine equation. This equation utilizes serum creatinine, sex, and age as parameters. The creatinine assay has traceable calibration to isotope dilution-mass spectrometry. Refer to KDIGO guidelines for clinical interpretation. In patients with unstable renal function, e.g. those with acute kidney injury, the eGFR may not accurately reflect actual GFR. Performed By: #### 2 4323-8 #### [facility] CLIA [id number] [address] [place] [address] [place] Glucose [Mass/Vol] 124 mg/dL High 74-99 [facility] Comment on above: Order Comment: Specag men Type: BLOOD SPECIMEN Ordering Facility: [facility] Address: [address] [place] [address] Result Comment: The [place] Diabetes Association (ADA) provides guidance for cutoff values for fasting glucose and random glucose. The ADA defines fasting as no caloric intake for at least 8 hours. Fasting plasma glucose results between 100 to 125 mg/dL indicate increased risk for diabetes (prediabetes). Fasting plasma glucose results greater than or equal to 126 mg/dL meet the criteria for diagnosis of diabetes. In the absence of unequivocal hyperglycemia, results should be confirmed by repeat testing. In a patient with classic symptoms of hyperglycemia or hyperglycemic crisis, random plasma glucose results greater than or equal to 200 mg/dL meet the criteria for diagnosis of diabetes. Reference: Standards of Medical Care in Diabetes 2016, [place] Diabetes Association. Diabetes Care. 2016.39(Suppl 1). Performed By: #### 2 4323-8 #### [facility] [id number] [address] [place] [address] [place] Potassium [Moles/Vol] 4.7 mmol/L Normal 3.7-5.1 [facility] Comment on above: Order Comment: Myles gottlieb Type: BLOOD SPECIMEN Ordering Facility: [facility] Address: [address] [place], [place] [address] Performed By: #### 2 4323-8 #### [facility] [id number] [address] [place] [address] [place] Protein [Mass/Vol] 7.0 g/dL Normal 6.3-8.0 [facility] Comment on above: Order Comment: Myles gottlieb Type: BLOOD SPECIMEN Ordering Facility: [facility] Address: [address] [place], [place] [address] Performed By: #### 2 4323-8 #### [facility] CLIA [id number] [address] [place] [address] [place] Sodium [Moles/Vol] 140 mmol/L Normal 136-144 [facility] Comment on above: Order Comment: Speci men Type: BLOOD SPECIMEN Ordering Facility: [facility] Address: [address] [place] [address] Performed By: #### 2 4323-8 #### [facility] CLIA [id number] [address] [place] [address] [place] Urea nitrogen [Mass/Vol] 34 mg/dL High 9-24 [facility] Comment on above: Order Comment: Speci men Type: BLOOD SPECIMEN Ordering Facility: [facility] Address: [address] [place] [address] Performed By: #### 2 4323-8 #### [facility] [id number] [address] [place] [address] [place] Lipid 1996 panelon 5 Cholesterol [Mass/Vol] 109 mg/dL Normal <200 [facility] Comment on above: Order Comment: Speci men Type: BLOOD SPECIMENOrdering Facility: [facility] Address: [address] [place] [address] Result Comment: <200 mg/dL, Desirable 200-239 mg/dL, Borderline high >239 mg/dL, High Performed By: #### 3 3762-6 ####[facility] LABCLIA [id number] [place] [address] [place]#### 76584-0 ####[facility] LABCLIA [id number] [place] [id number] [place] [facility] [id number] [address] [place] Cholesterol in HDL [Mass/Vol] 47 mg/dL Normal >39 [facility] Comment on above: Order Comment: Speci men Type: BLOOD SPECIMENOrdering Facility: [facility] Address: [address] [place] [address] Result Comment: 40-5 9 mg/dL, Acceptable >59 mg/dL, High: Negative risk factor for coronary heart disease <40 mg/dL, Low: Positive risk factor for coronary heart disease Performed By: #### 3 3762-6 ####[facility] LABCLIA [id number] [place] [address] [place]#### 07448-0 ####[facility] LABCLIA [id number] [place] [address] [place] [facility] [id number] [place] [address] [place] Cholesterol in LDL [Mass/Vol] 47 mg/dL Normal <100 [facility] Comment on above: Order Comment: Speci men Type: BLOOD SPECIMENOrdering Facility: [facility] Address: [address] [place] [address] Result Comment: <100 mg/dL, Optimal 100-129 mg/dL, Near optimal/above optimal 130-159 mg/dL, Borderline high 160-189 mg/dL, High >189 mg/dL, Very high Secondary prevention optimal LDL Cholesterol levels are recommended to be < 70 mg/dL Performed By: #### 3 3762-6 ####[facility] LABCLIA [id number] [place] [address] [place]#### 79800-2 ####[facility] LABCLIA [id number] [place] [address] [place] [facility] [id number] [place] [address] [place] Cholesterol in LDL/Cholesterol in HDL [Mass ratio] 1.00 {ratio} Normal <2.54 [facility] Comment on above: Order Comment: Speci men Type: BLOOD SPECIMENOrdering Facility: [facility] Address: [address] [place] [address] Result Comment: Refe rence: 1. National Cholesterol Education Program ATP III Guideline At-A-Glance Quick Desk Reference: National Heart, Lung, and Blood Vader. National Institutes of Health. 2001: NIH Publication No. 01-3305. 2. An International Atherosclerosis Society position paper: global recommendations for the management of dyslipidemia: executive summary, Atherosclerosis. 2014: 232(2):410-413. Performed By: #### 3 3762-6 ####[facility] LABCLIA [id number] [address] [place] [facility]#### 99634-4 ####[facility] LABCLIA [id number] [address] [id number] [address] [place] Cholesterol in VLDL [Mass/Vol] 15 mg/dL Normal <30 [facility] Comment on above: Order Comment: Speci men Type: BLOOD SPECIMENOrdering Facility: [facility] Address: [address] [place] [address] Performed By: #### 3 3762-6 ####[facility] LABCLIA [id number] [address] [place]#### 06562-4 ####[facility] LABCLIA [id number] [address] [id number] [address] [place] Cholesterol non HDL [Mass/Vol] 62 mg/dL Normal <130 [facility] Comment on above: Order Comment: Speci men Type: BLOOD SPECIMENOrdering Facility: [facility] Address: [address] [place] [address] Result Comment: <130 mg/dL, Optimal 130-159 mg/dL, Near optimal/above optimal 160-189 mg/dL, Borderline high 190-219 mg/dL, High >219 mg/dL, Very high Secondary prevention optimal non HDL Cholesterol levels are recommended to be <100 mg/dL Performed By: #### 3 3762-6 ####[facility] LABCLIA [id number] [place] [address] [place]#### 19805-8 ####[facility] LABCLIA [id number] [place] [id number] [place] [address] [place] Cholesterol.total/Cho lesterol in HDL [Mass ratio] 2.32 {ratio} Normal <5.10 [facility] Comment on above: Order Comment: Speci men Type: BLOOD SPECIMENOrdering Facility: [facility] Address: [address] [place] [address] Performed By: #### 3 3762-6 ####[facility] LABCLIA [id number] [place] [address] [place]#### 56578-6 ####[facility] LABCLIA [id number] [place] [id number] [place] [address] [place] FASTING TIME 12 hrs Normal [facility] Comment on above: Order Comment: Speci men Type: BLOOD SPECIMENOrdering Facility: [facility] Address: [address] [place], [place] [address] Performed By: #### 3 3762-6 ####[facility] LABCLIA [id number] [place] [address] [place]#### 40403-2 ####[facility] LABCLIA [id number] [place] [id number] [place] [facility] [id number] [place] [address] [place] Triglyceride [Mass/Vol] 73 mg/dL Normal <150 [facility] Comment on above: Order Comment: Speci men Type: BLOOD SPECIMENOrdering Facility: [facility] Address: [address] [place] [address] Result Comment: <150 mg/dL, Normal 150-199 mg/dL, Borderline high 200-499 mg/dL, High >499 mg/dL, Very high Performed By: #### 3 3762-6 ####[facility] LABCLIA [id number] [place] [address] [place]#### 10028-3 ####[facility] LABIA [id number] [address] [id number] [place] [address] [place] NT-proBNP [facility] 09-01 Natriuretic peptide.B prohormone N-Terminal [Mass/Vol] 131 pg/mL Normal <450 [facility] Comment on above: Order Comment: Speci men Type: BLOOD SPECIMENOrdering Facility: [facility] Address: [address] [place] [address] Performed By: #### 3 3762-6 ####[facility] LABIA [id number] [place] [address] [place]#### 88709-1 ####[facility] LABIA [id number] [id number] [place] [address] [place] CNOVon 08-31-2024 CNOV Office Visit (CARDWS ) SONIYA COOLEY ([id number]) 1940 M Date Time Provider Department 08/31/24 3:40 PM MARJ MACKEY During your visit today, we recorded the following information about you: Pulse Respiration Blood pressure Weight 74/minute 14/minute 98/56 91.2 kg Height 1.702 m Marj Mackey MD 08/31/2024 4:39 PM Signed [facility] Cardiology ([address]) [address] [place] [address] OUTPATIENT VISIT DATE 08/31/2024 PRIMARY CARE PHYSICIAN: Oniel Francis [address] [place] [address] HISTORY OF PRESENT ILLNESS: Mr. Cooley is a 83 year old gentleman with a history of coronary artery disease with remote coronary bypass grafting with an SVG graft to dominant left circumflex, left PDA with a Y graft to the diagonal branch (2002). He underwent repeat grafting aortic valve replacement in 2019 with a LLANOS graft LAD and Bernice-Rush aortic valve replacement. He has a history of carotid artery disease with prior left carotid endarterectomy, hypertension, dyslipidemia. He presents the office for routine follow-up. Patient continues to have dyspnea on exertion which is unchanged from prior. He has not had overt chest pain or chest pressure. His functional capacity remains adequate. He has not had symptoms concerning for congestive heart failure including PND, orthopnea, or lower extremity edema. PAST MEDICAL HISTORY Diagnosis Date Acquired hypothyroidism 03/16/2020 Advance directive discussed with patient 12/12/2021 Allergic rhinitis 06/20/2018 Anticoagulated on Coumadin 01/28/[address] Francis: Aortic (per cardio target INR of 2-2.5.), was placed on coumadin per cardio due to US showing a build up on the bovine Valve, Started in 12/2015 Aortic valve disorder 10/09/2002 History: s/p AVR October 2002 Assessment: s/p 10/29/2018: Redo sternotomy AVR ( tissue valve size 27 ) was implanted in usual manner, LLANOS ( skeletonized ) to LAD BRIEF FINDINGS: Dense pericardial adhesions, degeneration of previous implanted aortic valve, Excellent quality and flow in LLANOS and good size LAD target Plan: ASA Aortic valve replaced 11/13/2005 Aortic, was placed on coumadin per cardio due to US showing a build up on the bovine Valve, Started in 12/2015 Aortic valve replaced 11/13/200510/2018 and anticoagulation was stopped. B12 deficiency 10/18/2014 Carotid stenosis, asymptomatic, bilateral 10/29/2008 S/P left repair, Sees Edu for yearly US. Coronary atherosclerosis 08/24/2015 History: S/p CABG with a sequential graft to the diagonal branch, lateral and posterior lateral circumflex branches as well as PDA in October 2002 Assessment: Now s/p CABG x 1 LLANOS to LAD Plan: CAD Core Measures: Aspirin: Yes Beta blockers: Yes Statins: Lipitor 40mg started 3-30, LFTs normal-continue on dc. Elevated fasting blood sugar 06/19/2016 Essential hypertension 10/30/2018 Family history of colon cancer 01/31/2010 Family history of malignant neoplasm of gastrointestinal tract Family history of Parkinson's disease 12/11/2019 History of DVT (deep vein thrombosis) 06/19/2017 Patient was on coumadin at the time. spring History of rheumatic heart disease 10/09/2002 Living will on file 12/12/2021 DPA: Elizabet () Meniscus tear 12/27/2015 Right, minimal. Seen Lamont hebert Microscopic hematuria 01/10/2021 Saw Luciano 02/2021 and felt further w/u not warranted. 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 Dunn Obesity, Class I, BMI 30-34.9 08/26/2018 Other proteinuria 01/10/2021 24 hr patient 01/2021 normal, Repeat yearly Other proteinuria 01/10/2021 24 hr patient 01/2021 normal, Parkinson disease (HCC) 12/01/2013 Postsurgical aortocoronary bypass status 2006 Rheum heart dis NEC/NOS Rheumatic fever Seasonal allergies 12/17/[address] Dash Sleep disorder 07/26/2015 Synovial cyst of right popliteal space 01/28/2017 US ER 01/2017: 3.5 x 1.1 CM Vitamin D deficiency 12/03/2013 PAST SURGICAL HISTORY Procedure Laterality Date 2D ECHO (EXEP) 01/08/2020 EF=53%, mild LVH, ABDOMINAL SURGERY HX CABG W/ARTERIAL GRAFT SINGLE ARTERIAL GRAFT 10/29/2018 used mammorary artery COLONOSCOPY FLX DX W/COLLJ SPEC WHEN PFRMD 2003 Colonoscopy COLONOSCOPY FLX DX W/COLLJ SPEC WHEN PFRMD 03/24/2010 Normal, recheck 5 yrs COLONOSCOPY FLX DX W/COLLJ SPEC WHEN PFRMD 01/28/2015 repeat in 5 yrs COLONOSCOPY FLX DX W/COLLJ SPEC WHEN PFRMD 07/03/2021 repeat in 5 years-polyp CORONARY ARTERY BYP W/VEIN AND ARTERY GRAFT 4 VEIN 2002 CABG, quadruple grafts FECAL OC (more content not included)... Normal [facility] 05-08-2024 [facility]ONIYA COOLEY ([id number]) 1940 M Date Time Provider Department 05/08/24 ZINA DURAN [facility] During your visit today, we recorded the following information about you: Zina Duran APRN.[employer] 05/08/2024 11:49 AM Signed Please let patient know their labs are WNL Olive Raphael OCCA 05/11/2024 11:02 AM Signed TC to patients , listed in chart to receive medical information, who verbalized understanding of below. asking that refills of atorvastatin and metoprolol be sent to pharmacy. Pended as such if provider agreeable. ROLAN 05/07/2024 NOV 02/08/2025 Zina Duran APRN.[employer] 05/11/2024 1:04 PM Signed Please let patient know refills sent. Also Us results from [facility] negative for DVT ;however does show a likely popliteal cyst which could be causing pain. Recommend follow up with ortho. Atuumn Mares MA 05/11/2024 1:07 PM Signed Left message for patient to return call to office RUSLAN NavasMayra cordero, CHELLY 05/11/2024 2:31 PM Signed Patient returned call and went over results, notes from Zina Duran [employer] with understanding. Patient said he has appt on Saturday with Dr Caldwell at [facility] and requesting a copy of report be faxed. Printed and faxed to [phone] as requested. Allergies As of Date: 05/08/2024 Noted Allergy Reaction IODINE 10/09/2002 14 - Other: See Comments Comments: ?decreased BP with iodinated contrast during a cardiac cath. Pt reports he was told by the game agent that they almost lost him due to his reaction and was allergic reaction. The patient reports taking 13 hour allergy premedications in the past with Iodinated contrast without experiencing any breakthrough reaction. PENICILLIN G 10/09/2002 4 - Hives Date Reviewed: 05/07/2024 Reviewed by: Autumn Mares MA - Fully Assessed Reason for Visit: Results [95] Primary Visit Diagnosis:Essential hypertension [I10] Other Visit Diagnosis:Mixed hyperlipidemia [E78.2] Order(s):atorvastatin (LIPITOR) 80 mg tabletTake 1 tablet by mouth once daily.Disp: 90 tabletRfl: 1 metoprolol tartrate, short acting, (LOPRESSOR) 50 mg tabletTake 1 tablet by mouth two times a day.Disp: 180 tabletRfl: 1 Prescriptions as of 05/11/2024 - atorvastatin (LIPITOR) 80 mg tablet Take 1 tablet by mouth once daily. - metoprolol tartrate, short acting, (LOPRESSOR) 50 mg tablet Take 1 tablet by mouth two times a day. - tamsulosin (FLOMAX) 0.4 mg Take 2 capsules by mouth daily at bedtime. - levothyroxine (SYNTHROID) 25 mcg tablet Take 1 tablet by mouth once daily. Take on empty stomach. For thyroid. - ezetimibe (ZETIA) 10 mg tablet Take 1 tablet by mouth once daily. - carbidopa-levodopa (SINEMET 25-100) 25-100 mg per tablet TAKE 3 TABLETS 3 TIMES A DAY - meloxicam (MOBIC) 15 mg tablet once daily. - cyanocobalamin, vitamin B-12, 500 mcg ODT Take 2 tablets by mouth once daily. - nitroglycerin sublingual (NITROQUICK) 0.4 mg SL tablet Dissolve 1 tablet under the tongue every 5 minutes as needed. - clindamycin (CLEOCIN) 150 mg capsule Take 4 tabs 30-60 min before dental procedures. - aspirin, enteric coated (ECOTRIN LOW STRENGTH) 81 mg EC tablet Take 1 tablet by mouth once daily. - acetaminophen (TYLENOL) 500 mg tablet Take 1,000 mg by mouth every 8 hours as needed for Pain. - fluticasone (FLONASE) 50 mcg/actuation nasal spray Use 1 Blum in each nostril once daily. Rinse mouth after use. - Cholecalciferol, Vitamin D3, 2,000 unit cap Take 2 tablets by mouth once daily. - omega-3 fatty acids/vitamin e(FISH OIL 1,000 MG CAP) one tablet twice daily - multivitamins w-minerals/lut(CENTRU M SILVER TAB) One tablet daily Facility-Administered Medications as of 05/11/2024 - perflutren lipid microspheres 1.3 mL in NaCl (PF) 0.9% 10 mL injection (DEFINITY) - sodium chloride 0.9 % (flush) 10 mL (BD POSIFLUSH) Meds Comments as of 11/04/2018: 11/04/18 The medications are managed by this patient by: PATIENT and SPOUSE Rhea Emery Pharm-T Problem List As Of Date 05/08/2024 Noted Resolved Aortic valve disorder [I35.9] 10/09/2002 01/14/2020 Mixed hyperlipidemia [E78.2] 10/09/2002 History of rheumatic heart disease [Z86.79] 10/09/2002 Aortic valve replaced [Z95.2] 11/13/2005 Benign localized prostatic hyperplasia with low*2006 Postsurgical aortocoronary bypass status [Z95.1]2006 Abnormal involuntary movements [R25.8, R25.9] 12/16/2007 02/28/2012 Cervicalgia [M54.2] 10/22/2008 02/22/2011 Carotid stenosis, asymptomatic, bilateral [I65.*10/29/2008 Family history of colon cancer [Z80.0] 01/31/2010 07/03/2021 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 [facility] SONIYA COOLEY ([id number]) 1940 M Date Time Provider Department 05/08/24 ZINA DURAN During your visit today, we recorded the following information about you: Mayra Breaux LPN 05/08/2024 10:03 AM Signed Patient Elizabet calling having problem scheduling ultrasound for his legs at [facility]. She was told office has to call to schedule. This nurse called and spoke to scheduling Rosalia and scheduled STAT ultrasound of his legs today at 1 pm patient to be there at 1245 pm. Phoned patient back and gave instructions, told may want to be earlier since construction is going on at [facility] area. Phoned space scheduler and cancelled appt for [facility] for this afternoon. Allergies As of Date: 05/08/2024 Noted Allergy Reaction IODINE 10/09/2002 14 - Other: See Comments Comments: ?decreased BP with iodinated contrast during a cardiac cath. Pt reports he was told by the game agent that they almost lost him due to his reaction and was allergic reaction. The patient reports taking 13 hour allergy premedications in the past with Iodinated contrast without experiencing any breakthrough reaction. PENICILLIN G 10/09/2002 4 - Hives Date Reviewed: 05/07/2024 Reviewed by: Autumn Mares MA - Fully Assessed Reason for Visit: problem scheduling ultrasound [Other] Prescriptions as of 05/08/2024 - tamsulosin (FLOMAX) 0.4 mg Take 2 capsules by mouth daily at bedtime. - levothyroxine (SYNTHROID) 25 mcg tablet Take 1 tablet by mouth once daily. Take on empty stomach. For thyroid. - atorvastatin (LIPITOR) 80 mg tablet Take 1 tablet by mouth once daily. - ezetimibe (ZETIA) 10 mg tablet Take 1 tablet by mouth once daily. - metoprolol tartrate, short acting, (LOPRESSOR) 50 mg tablet Take 1 tablet by mouth two times a day. - carbidopa-levodopa (SINEMET 25-100) 25-100 mg per tablet TAKE 3 TABLETS 3 TIMES A DAY - meloxicam (MOBIC) 15 mg tablet once daily. - cyanocobalamin, vitamin B-12, 500 mcg ODT Take 2 tablets by mouth once daily. - nitroglycerin sublingual (NITROQUICK) 0.4 mg SL tablet Dissolve 1 tablet under the tongue every 5 minutes as needed. - clindamycin (CLEOCIN) 150 mg capsule Take 4 tabs 30-60 min before dental procedures. - aspirin, enteric coated (ECOTRIN LOW STRENGTH) 81 mg EC tablet Take 1 tablet by mouth once daily. - acetaminophen (TYLENOL) 500 mg tablet Take 1,000 mg by mouth every 8 hours as needed for Pain. - fluticasone (FLONASE) 50 mcg/actuation nasal spray Use 1 Blum in each nostril once daily. Rinse mouth after use. - Cholecalciferol, Vitamin D3, 2,000 unit cap Take 2 tablets by mouth once daily. - omega-3 fatty acids/vitamin e(FISH OIL 1,000 MG CAP) one tablet twice daily - multivitamins w-minerals/lut(CENTRU M SILVER TAB) One tablet daily Facility-Administered Medications as of 05/08/2024 - perflutren lipid microspheres 1.3 mL in NaCl (PF) 0.9% 10 mL injection (DEFINITY) - sodium chloride 0.9 % (flush) 10 mL (BD POSIFLUSH) Meds Comments as of 11/04/2018: 11/04/18 The medications are managed by this patient by: PATIENT and SPOUSE Rhea Emery Pharm-T Problem List As Of Date 05/08/2024 Noted Resolved Aortic valve disorder [I35.9] 10/09/2002 01/14/2020 Mixed hyperlipidemia [E78.2] 10/09/2002 History of rheumatic heart disease [Z86.79] 10/09/2002 Aortic valve replaced [Z95.2] 11/13/2005 Benign localized prostatic hyperplasia with low*2006 Postsurgical aortocoronary bypass status [Z95.1]2006 Abnormal involuntary movements [R25.8, R25.9] 12/16/2007 02/28/2012 Cervicalgia [M54.2] 10/22/2008 02/22/2011 Carotid stenosis, asymptomatic, bilateral [I65.*10/29/2008 Family history of colon cancer [Z80.0] 01/31/2010 07/03/2021 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/01/2013 Vitamin D deficiency [E55.9] 12/03/2013 B12 deficiency [E53.8] 10/18/2014 Nocturnal hypoxemia [G47.34] 07/26/2015 Sleep disorder [G47.9] 07/26/2015 Coronary 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quechan ballard*08/24/2015 Meniscus tear [S83.209A] 12/27/2015 Elevated blood sugar [R73.9] 06/19/2016 Seasonal allergies [J30.2] 12/17/2016 01/14/2020 Medicare annual wellness visit, subsequent [Z00*12/17/2016 Colon cancer screening [Z12.11] 12/17/2016 01/14/2020 Synovial cyst of right popliteal space [M71.21] 01/28/2017 History of DVT (deep vein thrombosis) [Z86.718] 06/19/2017 Allergic rhinitis [J30.9] 06/20/2018 Obesity, Class I, BMI 30-34.9 [E66.811] 08/26/2018 Stress hyperglycemia [R73.9] 10/29/2018 11/01/2018 Coagulopathy (HCC) [D68.9] 10/29/2018 10/30/2018 Essential hypertension [I10] 10/30/2018 Family history of malignant neoplasm of gastroi* 01/14/2020 Acute deep vein thrombosis (DVT) of distal vein*04/20/2019 01/14/2020 Tremor [R25.1] 12/11/2019 01/14/2020 Family history of Parkinson's disease [Z82.0] 12/11/2019 Stiffness of hand jodie (more content not included)... Normal [facility] Venous Duplex US - Claudy Extre [facility] 05-08-2024 Venous Duplex US - Claudy Extrem [facility] [address] [place] [address] Venous Duplex US - Claudy Extrem 05/08/24 1257 MR#: [id number] Acct: [id number] Name: SONIYA COOLEY Rep #: [id number] : 1940 83 From: aCrloz Voss MD Attending Dr: Zina Duran, CHIEF CREW SCHEDULER-C Status: REG CLI Ordering Dr: Zina Duran CHIEF CREW SCHEDULER-C Date: 05/08/24 Location: [facility]S Sex: M C Admitted: Reason For Study: PAIN RIGHT LEFT GSV is normal. GSV is normal. CFV is compressible, spontaneous, phasic, CFV is compressible, spontaneous, phasic, competent and demonstrates normal competent, and demonstrates normal augmentation. augmentation. FV is compressible, spontaneous, phasic, FV is compressible, spontaneous, phasic, competent and demonstrates normal competent and demonstrates normal augmentation. augmentation. POP V is compressible, spontaneous, phasic, POP V is compressible, spontaneous, phasic, competent and demonstrates normal competent and demonstrates normal augmentation. augmentation. T/P Trunk is compressible. T/P Trunk is compressible. PTV is compressible. PTV is compressible. RT PerV is compressible. LT PerV is compressible. NON-VASCULAR structure noted in RT POP FOSSA measuring 3.46 cm x 1.54 cm. Procedure This is a venous duplex using B-mode, color flow and spectral Doppler. Exam performed in department. A preliminary report was called and/or faxed to Zina Duran @ [phone] @ 13:20. VL/Venous Duplex US - Claudy Extrem Interpretation Summary Deep veins of the lower extremities are bilaterally patent and compressible segmentally. There is no evidence of deep vein thrombosis on either side. Valvular competence appears intact within the proximal deep venous systems bilaterally. The great saphenous veins appear bilaterally patent and compressible segmentally. A non-vascular, hypoechoic structure is noted in the right popliteal space, measuring 3.46 cm x 1.54 cm. This probably represents a popliteal cyst. Clinical correlation is advised. Ordering Physician: Zina Duran Referring Physician: Oniel Francis Performed By: Ashtyn Foster, PÉREZ, RVT 05/08/242250 Date Carloz Voss MD CC: CHIEF CREW SCHEDULER-C Zina Duran; Dr. Oniel Francis MD Date Dictated: 05/08/24 1257 Date Transcribed: 05/08/242250 Doorshaker: Signed Normal [facility] CBC W Auto Differential pane l (Bld)on 05-07-2024 Basophils (Bld) [#/Vol] 0.05 10*3/uL Normal <0.11 [facility] Comment on above: Order Comment: Speci men Type: BLOOD SPECIMENOrdering Facility: [facility] Address: [address] [place] [address] Performed By: #### 5 7021-8 ####[facility] LABCLIA [id number] [place] [address] [place] Basophils/100 WBC (Bld) 0.8 % Normal [facility] Comment on above: Order Comment: Speci men Type: BLOOD SPECIMENOrdering Facility: [facility] Address: [address] [place] [address] Performed By: #### 5 7021-8 ####[facility] LABCLIA [id number] [place] [address] [place] Differential cell count method Nom (Bld) Auto Normal [facility] Comment on above: Order Comment: Speci men Type: BLOOD SPECIMENOrdering Facility: [facility] Address: [address] [place] [address] Performed By: #### 5 7021-8 ####[facility] LABCLIA [id number] [place] [address] [place] Eosinophils (Bld) [#/Vol] 0.42 10*3/uL Normal <0.46 [facility] Comment on above: Order Comment: Speci men Type: BLOOD SPECIMENOrdering Facility: [facility] Address: [address] [place] [address] Performed By: #### 5 7021-8 ####[facility] LABIA [id number] [place] [address] [place] Eosinophils/100 WBC (Bld) 6.3 % Normal [facility] Comment on above: Order Comment: Speci men Type: BLOOD SPECIMENOrdering Facility: [facility] Address: [address] [place] [address] Performed By: #### 5 7021-8 ####[facility] LABIA [id number] [place] [address] [place] Erythrocyte distribution width (RBC) [Ratio] 12.8 % Normal 11.5-15.0 [facility] Comment on above: Order Comment: Speci men Type: BLOOD SPECIMENOrdering Facility: [facility] Address: [address] [place] [address] Performed By: #### 5 7021-8 ####[facility] LABIA [id number] [place] [address] [place] Hematocrit (Bld) [Volume fraction] 41.0 % Normal 39.0-51.0 [facility] Comment on above: Order Comment: Speci men Type: BLOOD SPECIMENOrdering Facility: [facility] Address: [address] [place] [address] Performed By: #### 5 7021-8 ####[facility] LABCLIA [id number] [place] [address] [place] Hemoglobin (Bld) [Mass/Vol] 13.7 g/dL Normal 13.0-17.0 [facility] Comment on above: Order Comment: Speci men Type: BLOOD SPECIMENOrdering Facility: [facility] Address: [address] [place] [address] Performed By: #### 5 7021-8 ####[facility] LABCLIA [id number] [place] [address] [place] Immature granulocytes (Bld) [#/Vol] 0.03 10*3/uL Normal <0.10 [facility] Comment on above: Order Comment: Speci men Type: BLOOD SPECIMENOrdering Facility: [facility] Address: [address] [place] [address] Performed By: #### 5 7021-8 ####[facility] LABIA [id number] [place] [address] [place] Immature granulocytes/100 WBC (Bld) 0.5 % Normal [facility] Comment on above: Order Comment: Speci men Type: BLOOD SPECIMENOrdering Facility: [facility] Address: [address] [place] [address] Performed By: #### 5 7021-8 ####[facility] LABIA [id number] [place] [address] [place] Lymphocytes (Bld) [#/Vol] 2.63 10*3/uL Normal 1.00-4.00 [facility] Comment on above: Order Comment: Speci men Type: BLOOD SPECIMENOrdering Facility: [facility] Address: [address] [place] [address] Performed By: #### 5 7021-8 ####[facility] LABIA [id number] [place] [address] [place] Lymphocytes/100 WBC (Bld) 39.5 % Normal [facility] Comment on above: Order Comment: Speci men Type: BLOOD SPECIMENOrdering Facility: [facility] Address: [address] [place] [address] Performed By: #### 5 7021-8 ####[facility] LABIA [id number] [place] [address] [place] MCH (RBC) [Entitic mass] 32.5 pg Normal 26.0-34.0 [facility] Comment on above: Order Comment: Speci men Type: BLOOD SPECIMENOrdering Facility: [facility] Address: [address] [place] [address] Performed By: #### 5 7021-8 ####[facility] [id number] [place] [address] [place] MCHC (RBC) [Mass/Vol] 33.4 g/dL Normal 30.5-36.0 [facility] Comment on above: Order Comment: Speci men Type: BLOOD SPECIMENOrdering Facility: [facility] Address: [address] [place] [address] Performed By: #### 5 7021-8 ####[facility] [id number] [place] [address] [place] MCV (RBC) [Entitic vol] 97.2 fL Normal 80.0-100.0 [facility] Comment on above: Order Comment: Speci men Type: BLOOD SPECIMENOrdering Facility: [facility] Address: [address] [place] [address] Performed By: #### 5 7021-8 ####[facility] [id number] [place] [address] [place] Monocytes (Bld) [#/Vol] 0.66 10*3/uL Normal <0.87 [facility] Comment on above: Order Comment: Speci men Type: BLOOD SPECIMENOrdering Facility: [facility] Address: [address] [place] [address] Performed By: #### 5 7021-8 ####[facility] LABCLIA [id number] [place] [address] [place] Monocytes/100 WBC (Bld) 9.9 % Normal [facility] Comment on above: Order Comment: Speci men Type: BLOOD SPECIMENOrdering Facility: [facility] Address: [address] [place] [address] Performed By: #### 5 7021-8 ####[facility] LABCLIA [id number] [place] [address] [place] Neutrophils (Bld) [#/Vol] 2.86 10*3/uL Normal 1.45-7.50 [facility] Comment on above: Order Comment: Speci men Type: BLOOD SPECIMENOrdering Facility: [facility] Address: [address] [place] [address] Performed By: #### 5 7021-8 ####[facility] LABCLIA [id number] [place] [address] [place] Neutrophils/100 WBC (Bld) 43.0 % Normal [facility] Comment on above: Order Comment: Speci men Type: BLOOD SPECIMENOrdering Facility: [facility] Address: [address] [place] [address] Performed By: #### 5 7021-8 ####[facility] LABCLIA [id number] [place] [address] [place] Nucleated RBC (Bld) [#/Vol] 10*3/uL Normal <0.01 [facility] Comment on above: Order Comment: Speci men Type: BLOOD SPECIMENOrdering Facility: [facility] Address: [address] [place] [address] Performed By: #### 5 7021-8 ####[facility] LABCLIA [id number] [place] [address] [place] Nucleated RBC/100 WBC (Bld) [Ratio] 0.0 /100 WBC Normal [facility] Comment on above: Order Comment: Speci men Type: BLOOD SPECIMENOrdering Facility: [facility] Address: [address] [place] [address] Performed By: #### 5 7021-8 ####[facility] LABCLIA [id number] [place] [address] [place] Platelet mean volume (Bld) [Entitic vol] 11.5 fL Normal 9.0-12.7 [facility] Comment on above: Order Comment: Speci men Type: BLOOD SPECIMENOrdering Facility: [facility] Address: [address] [place] [address] Performed By: #### 5 7021-8 ####[facility] LABCLIA [id number] [place] [address] [place] Platelets (Bld) [#/Vol] 145 10*3/uL Low 150-400 [facility] Comment on above: Order Comment: Speci men Type: BLOOD SPECIMENOrdering Facility: [facility] Address: [address] [place] [address] Performed By: #### 5 7021-8 ####[facility] LABIA [id number] [place] [address] [place] RBC (Bld) [#/Vol] 4.22 10*6/uL Normal 4.20-6.00 [facility] Comment on above: Order Comment: Speci men Type: BLOOD SPECIMENOrdering Facility: [facility] Address: [address] [place] [address] Performed By: #### 5 7021-8 ####[facility] LABCLIA [id number] [place] [address] [place] WBC (Bld) [#/Vol] 6.65 10*3/uL Normal 3.70-11.00 [facility] Comment on above: Order Comment: Speci men Type: BLOOD SPECIMENOrdering Facility: [facility] Address: [address] [place] [address] Performed By: #### 5 7021-8 ####[facility] LABCHRISSIE [id number] [address] [id number] [address] [place] CNOVon 05-07-2024 CNOV Office Visit (FAMPWS ) SONIYA COOLEY ([id number]) 1940 M Date Time Provider Department 05/07/24 3:40 PM [facility] During your visit today, we recorded the following information about you: Pulse Respiration Blood pressure Weight 63/minute 16/minute 125/67 90.7 kg Zina Duran, 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 Patient presents for swelling to bilateral lower legs and pain to bilateral legs. Patient reports pain and swelling started about 3 days ago and has gradually gotten worse. Denies any new medications. Pain worse with ambulation better with rest. Patient reports he had knee replacement about 3 months ago. Past medical history, appointments, medications, allergies reviewed. Previous Medical History PAST MEDICAL HISTORY Diagnosis Date Acquired hypothyroidism 03/16/2020 Advance directive discussed with patient 12/12/2021 Allergic rhinitis 06/20/2018 Anticoagulated on Coumadin 01/28/[address] Francis: Aortic (per cardio target INR of 2-2.5.), was placed on coumadin per cardio due to US showing a build up on the bovine Valve, Started in 12/2015 Aortic valve disorder 10/09/2002 History: s/p AVR October 2002 Assessment: s/p 10/29/2018: Redo sternotomy AVR ( tissue valve size 27 ) was implanted in usual manner, LLANOS ( skeletonized ) to LAD BRIEF FINDINGS: Dense pericardial adhesions, degeneration of previous implanted aortic valve, Excellent quality and flow in LLANOS and good size LAD target Plan: ASA Aortic valve replaced 11/13/2005 Aortic, was placed on coumadin per cardio due to US showing a build up on the bovine Valve, Started in 12/2015 Aortic valve replaced 11/13/200510/2018 and anticoagulation was stopped. B12 deficiency 10/18/2014 Carotid stenosis, asymptomatic, bilateral 10/29/2008 S/P left repair, Sees Edu for yearly US. Coronary atherosclerosis 08/24/2015 History: S/p CABG with a sequential graft to the diagonal branch, lateral and posterior lateral circumflex branches as well as PDA in October 2002 Assessment: Now s/p CABG x 1 LLANOS to LAD Plan: CAD Core Measures: Aspirin: Yes Beta blockers: Yes Statins: Lipitor 40mg started 3-30, LFTs normal-continue on dc. Elevated fasting blood sugar 06/19/2016 Essential hypertension 10/30/2018 Family history of colon cancer 01/31/2010 Family history of malignant neoplasm of gastrointestinal tract Family history of Parkinson's disease 12/11/2019 History of DVT (deep vein thrombosis) 06/19/2017 Patient was on coumadin at the time. spring History of rheumatic heart disease 10/09/2002 Living will on file 12/12/2021 DPA: Elizabet () Meniscus tear 12/27/2015 Right, minimal. Seen Lamont hebert Microscopic hematuria 01/10/2021 Saw Luciano 02/2021 and felt further w/u not warranted. 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 Dunn Obesity, Class I, BMI 30-34.9 08/26/2018 Other proteinuria 01/10/2021 24 hr patient 01/2021 normal, Repeat yearly Other proteinuria 01/10/2021 24 hr patient 01/2021 normal, Parkinson disease (HCC) 12/01/2013 Postsurgical aortocoronary bypass status 2006 Rheum heart dis NEC/NOS Rheumatic fever Seasonal allergies 12/17/[address] Dash Sleep disorder 07/26/2015 Synovial cyst of right popliteal space 01/28/2017 US ER 01/2017: 3.5 x 1.1 CM Vitamin D deficiency 12/03/2013 Previous Surgical History PAST SURGICAL HISTORY Procedure Laterality Date 2D ECHO (EXEP) 01/08/2020 EF=53%, mild LVH, ABDOMINAL SURGERY HX CABG W/ARTERIAL GRAFT SINGLE ARTERIAL GRAFT 10/29/2018 used mammorary artery COLONOSCOPY FLX DX W/COLLJ SPEC WHEN PFRMD 2003 Colonoscopy COLONOSCOPY FLX DX W/COLLJ SPEC WHEN PFRMD 03/24/2010 Normal, recheck 5 yrs COLONOSCOPY FLX DX W/COLLJ SPEC WHEN PFRMD 01/28/2015 repeat in 5 yrs COLONOSCOPY FLX DX W/COLLJ SPEC WHEN PFRMD 07/03/2021 repeat in 5 years-polyp CORONARY ARTERY BYP W/VEIN AND ARTERY GRAFT 4 VEIN 2002 CABG, quadruple grafts FECAL OCCULT BLOOD TEST 12/25/2016 negative HEART CATHETERIZATION [facility], HEART SURGERY HX HERNIA REPAIR HX LAPAROSCOPY SURG CHOLECYSTECTOMY Cholecystectomy, lap LEFT HEART CATH,PERCUTANEOUS 1998 Cardiac cath, L heart PAST SURGICAL HISTORY OF 10/29/2018 Aortic valve replacement with pig valve and anticoagulation stopped RADICAL RESECTION TONSIL W/O CLOSURE REMV CATARACT EXTRACAP,INSERT LENS 08/22/2020 and 09/14/2020 REMV CATARACT EXTRACAP,INSERT LENS Bilateral 2021 RPLCMT PROST AORTIC VALVE OPEN XCP H (more content not included)... Normal [facility] 05-07-2024 [facility] SONIYA COOLEY ([id number]) 1940 M Date Time Provider Department 05/07/24 ZINA DURAN [facility] During your visit today, we recorded the following information about you: Sophie Collier 05/07/2024 4:57 PM Signed Pt called to check schedule in [place] for US. There are no appointments available here tomorrow. He would like to check at the [facility] if the order could be sent there to check appointment availability tomorrow. He kept the [facility] appointment just in case we find that the [facility] can't accommodate tomorrow. Zina Duran APRN.NIGHAT 05/07/2024 5:04 PM Signed Please check to see if [facility] has availability. If so please fax order. Autumn Mares MA 05/08/2024 9:12 AM Signed Referral placed. Waiting to hear back from pre access if approved RUSLAN Navas Brittany, MA 05/08/2024 9:28 AM Signed Approval received. Pt will call [facility] to schedule Autumn Mares MA Allergies As of Date: 05/07/2024 Noted Allergy Reaction IODINE 10/09/2002 14 - Other: See Comments Comments: ?decreased BP with iodinated contrast during a cardiac cath. Pt reports he was told by the game agent that they almost lost him due to his reaction and was allergic reaction. The patient reports taking 13 hour allergy premedications in the past with Iodinated contrast without experiencing any breakthrough reaction. PENICILLIN G 10/09/2002 4 - Hives Date Reviewed: 05/07/2024 Reviewed by: Autumn Mares MA - Fully Assessed Reason for Visit: US DVT order [Other] Prescriptions as of 05/08/2024 - tamsulosin (FLOMAX) 0.4 mg Take 2 capsules by mouth daily at bedtime. - levothyroxine (SYNTHROID) 25 mcg tablet Take 1 tablet by mouth once daily. Take on empty stomach. For thyroid. - atorvastatin (LIPITOR) 80 mg tablet Take 1 tablet by mouth once daily. - ezetimibe (ZETIA) 10 mg tablet Take 1 tablet by mouth once daily. - metoprolol tartrate, short acting, (LOPRESSOR) 50 mg tablet Take 1 tablet by mouth two times a day. - carbidopa-levodopa (SINEMET 25-100) 25-100 mg per tablet TAKE 3 TABLETS 3 TIMES A DAY - meloxicam (MOBIC) 15 mg tablet once daily. - cyanocobalamin, vitamin B-12, 500 mcg ODT Take 2 tablets by mouth once daily. - nitroglycerin sublingual (NITROQUICK) 0.4 mg SL tablet Dissolve 1 tablet under the tongue every 5 minutes as needed. - clindamycin (CLEOCIN) 150 mg capsule Take 4 tabs 30-60 min before dental procedures. - aspirin, enteric coated (ECOTRIN LOW STRENGTH) 81 mg EC tablet Take 1 tablet by mouth once daily. - acetaminophen (TYLENOL) 500 mg tablet Take 1,000 mg by mouth every 8 hours as needed for Pain. - fluticasone (FLONASE) 50 mcg/actuation nasal spray Use 1 Blum in each nostril once daily. Rinse mouth after use. - Cholecalciferol, Vitamin D3, 2,000 unit cap Take 2 tablets by mouth once daily. - omega-3 fatty acids/vitamin e(FISH OIL 1,000 MG CAP) one tablet twice daily - multivitamins w-minerals/lut(CENTRU M SILVER TAB) One tablet daily Facility-Administered Medications as of 05/08/2024 - perflutren lipid microspheres 1.3 mL in NaCl (PF) 0.9% 10 mL injection (DEFINITY) - sodium chloride 0.9 % (flush) 10 mL (BD POSIFLUSH) Meds Comments as of 11/04/2018: 11/04/18 The medications are managed by this patient by: PATIENT and SPOUSE Rhea Emery Pharm-T Problem List As Of Date 05/07/2024 Noted Resolved Aortic valve disorder [I35.9] 10/09/2002 01/14/2020 Mixed hyperlipidemia [E78.2] 10/09/2002 History of rheumatic heart disease [Z86.79] 10/09/2002 Aortic valve replaced [Z95.2] 11/13/2005 Benign localized prostatic hyperplasia with low*2006 Postsurgical aortocoronary bypass status [Z95.1]2006 Abnormal involuntary movements [R25.8, R25.9] 12/16/2007 02/28/2012 Cervicalgia [M54.2] 10/22/2008 02/22/2011 Carotid stenosis, asymptomatic, bilateral [I65.*10/29/2008 Family history of colon cancer [Z80.0] 01/31/2010 07/03/2021 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/01/2013 Vitamin D deficiency [E55.9] 12/03/2013 B12 deficiency [E53.8] 10/18/2014 Nocturnal hypoxemia [G47.34] 07/26/2015 Sleep disorder [G47.9] 07/26/2015 Coronary 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quechan ballard*08/24/2015 Meniscus tear [S83.209A] 12/27/2015 Elevated blood sugar [R73.9] 06/19/2016 Seasonal allergies [J30.2] 12/17/2016 01/14/2020 Medicare annual wellness visit, subsequent [Z00*12/17/2016 Colon cancer screening [Z12.11] 12/17/2016 01/14/2020 Synovial cyst of right popliteal space [M71.21] 01/28/2017 History of DVT (deep vein thrombosis) [Z86.718] 06/19/2017 Allergic rhinitis [J30.9] 06/20/2018 Obesity, Class I, BMI 30-34.9 [E66.811] 08/26/2018 Stress hyperglycemia [R73.9] 10/29/2018 11/01/2018 Coagulopathy (HCC) [D68.9] 10/29/2018 10/30/2018 Essential hypertension [I10] 10/30/2018 Family history of maligna (more content not included)... Normal [facility] Comprehensive metabolic 2000 panelon 05-07-2024 Albumin [Mass/Vol] 4.2 g/dL Normal 3.9-4.9 [facility] Comment on above: Order Comment: Speci men Type: BLOOD SPECIMEN Ordering Facility: [facility] Address: [address] [place] [address] Performed By: #### 2 4323-8 #### [facility] CLIA [id number] [address] [place] [address] [place] ALP [Catalytic activity/Vol] 103 U/L Normal 38-113 [facility] Comment on above: Order Comment: Speci men Type: BLOOD SPECIMEN Ordering Facility: [facility] Address: [address] [place] [address] Performed By: #### 2 4323-8 #### [facility] CLIA [id number] [address] [place] [address] [place] ALT [Catalytic activity/Vol] 11 U/L Normal 10-54 [facility] Comment on above: Order Comment: Speci men Type: BLOOD SPECIMEN Ordering Facility: [facility] Address: [address] [place] [address] Performed By: #### 2 4323-8 #### [facility] CLIA [id number] [address] [place] [address] [place] Anion gap [Moles/Vol] 9 mmol/L Normal 8-15 [facility] Comment on above: Order Comment: Speci men Type: BLOOD SPECIMEN Ordering Facility: [facility] Address: [address] [place] [address] Performed By: #### 2 4323-8 #### [facility] CLIA [id number] [address] [place] [address] [place] AST [Catalytic activity/Vol] 26 U/L Normal 14-40 [facility] Comment on above: Order Comment: Speci men Type: BLOOD SPECIMEN Ordering Facility: [facility] Address: [address] [place] [address] Performed By: #### 2 4323-8 #### [facility] CLIA [id number] [address] [place] [address] [place] Bilirubin [Mass/Vol] 0.4 mg/dL Normal 0.2-1.3 [facility] Comment on above: Order Comment: Speci men Type: BLOOD SPECIMEN Ordering Facility: [facility] Address: [address] [place] [address] Performed By: #### 2 4323-8 #### [facility] CLIA [id number] [address] [place] [address] [place] Calcium [Mass/Vol] 9.1 mg/dL Normal 8.5-10.2 [facility] Comment on above: Order Comment: Speci men Type: BLOOD SPECIMEN Ordering Facility: [facility] Address: [address] [place] [address] Performed By: #### 2 4323-8 #### [facility] CLIA [id number] [address] [place] [address] [place] Chloride [Moles/Vol] 107 mmol/L Normal 98-107 [facility] Comment on above: Order Comment: Speci men Type: BLOOD SPECIMEN Ordering Facility: [facility] Address: [address] [place] [address] Performed By: #### 2 4323-8 #### [facility] CLIA [id number] [address] [place] [address] [place] CO2 [Moles/Vol] 24 mmol/L Normal 22-30 [facility] Comment on above: Order Comment: Speci men Type: BLOOD SPECIMEN Ordering Facility: [facility] Address: [address] [place] [address] Performed By: #### 2 4323-8 #### [facility] CLIA [id number] [address] [place] [address] [place] Creatinine [Mass/Vol] 0.72 mg/dL Low 0.73-1.22 [facility] Comment on above: Order Comment: Speci men Type: BLOOD SPECIMEN Ordering Facility: [facility] Address: [address] [place] [address] Performed By: #### 2 4323-8 #### [facility] [id number] [address] [place] [address] [place] [facility] Creatinine and Glomerular filtration rate.predicted panel (S/P/Bld) 91 mL/min/1.73m??? Normal >=60 [facility] Comment on above: Order Comment: Speci men Type: BLOOD SPECIMEN Ordering Facility: [facility] Address: [address] [place] [address] Result Comment: Janae mated Glomerular Filtration Rate (eGFR) is calculated using the 2020 CKD-EPI creatinine equation. This equation utilizes serum creatinine, sex, and age as parameters. The creatinine assay has traceable calibration to isotope dilution-mass spectrometry. Refer to KDIGO guidelines for clinical interpretation. In patients with unstable renal function, e.g. those with acute kidney injury, the eGFR may not accurately reflect actual GFR. Performed By: #### 2 4323-8 #### [facility] [id number] [address] [place] [address] [place] Glucose [Mass/Vol] 141 mg/dL High 74-99 [facility] Comment on above: Order Comment: Speci men Type: BLOOD SPECIMEN Ordering Facility: [facility] Address: [address] [place] [address] Result Comment: The [place] [employer] Association (ADA) provides guidance for cutoff values for fasting glucose and random glucose. The ADA defines fasting as no caloric intake for at least 8 hours. Fasting plasma glucose results between 100 to 125 mg/dL indicate increased risk for diabetes (prediabetes). Fasting plasma glucose results greater than or equal to 126 mg/dL meet the criteria for diagnosis of diabetes. In the absence of unequivocal hyperglycemia, results should be confirmed by repeat testing. In a patient with classic symptoms of hyperglycemia or hyperglycemic crisis, random plasma glucose results greater than or equal to 200 mg/dL meet the criteria for diagnosis of diabetes. Reference: Standards of Medical Care in Diabetes 2016, [place] [employer] Association. Diabetes Care. 2016.39(Suppl 1). Performed By: #### 2 4323-8 #### [facility] [id number] [address] [place] [address] [place] Potassium [Moles/Vol] 4.1 mmol/L Normal 3.7-5.1 [facility] Comment on above: Order Comment: Murphyi men Type: BLOOD SPECIMEN Ordering Facility: [facility] Address: [address] [place] [address] Performed By: #### 2 4323-8 #### [facility] [id number] [address] [place] [address] [place] Protein [Mass/Vol] 6.6 g/dL Normal 6.3-8.0 [facility] Comment on above: Order Comment: Speci men Type: BLOOD SPECIMEN Ordering Facility: [facility] Address: [address] [place] [address] Performed By: #### 2 4323-8 #### [facility] [id number] [address] [place] [address] [place] Sodium [Moles/Vol] 140 mmol/L Normal 136-144 [facility] Comment on above: Order Comment: Speci men Type: BLOOD SPECIMEN Ordering Facility: [facility] Address: [address] [place] [address] Performed By: #### 2 4323-8 #### [facility] [id number] [address] [place] [address] [place] Urea nitrogen [Mass/Vol] 20 mg/dL Normal 9-24 [facility] Comment on above: Order Comment: Speci men Type: BLOOD SPECIMEN Ordering Facility: [facility] Address: [address] [place] [address] Performed By: #### 2 4323-8 #### [facility] [id number] [address] [place] [address] [place] Magnesium SerPl-mCncon 05-07 Magnesium [Mass/Vol] 2.3 mg/dL Normal 1.7-2.3 [facility] Comment on above: Order Comment: Speci men Type: BLOOD SPECIMEN Ordering Facility: [facility] Address: [address] [place] [address] Performed By: #### 2 4323-8 #### [facility] [id number] [address] [place] [address] [place] Phosphate SerPl-mCncon 05-07 Phosphate [Mass/Vol] 2.7 mg/dL Normal 2.7-4.8 [facility] Comment on above: Order Comment: Speci men Type: BLOOD SPECIMEN Ordering Facility: [facility] Address: [address] [place] [address] Performed By: #### 2 4323-8 #### [facility] [id number] [address] [place] [address] [facility] CNOVon 04-07-2024 CNOV Office Visit ([facility] ) SONIYA COOLEY ([id number]) 1940 M Date Time Provider Department 04/07/24 10:40 AM [facility] During your visit today, we recorded the following information about you: Temperature Pulse Respiration Blood pressure 97.9 degrees 75/minute 18/minute 104/70 Weight 88.9 kg Ella Valdovinos PA-C 04/07/2024 11:07 AM Signed Chief Complaint Patient presents with: Recheck HPI Soniya Cooley is a 83 year old male who presents here today for recheck nocturia.. Patient started flomax about 3 weeks ago. Continues to have frequent night time wakening to urinate. 3-4 times a night. No other concerns. Past medical history, appointments, medications, allergies reviewed. Previous Medical History PAST MEDICAL HISTORY 03/16/2020: Acquired hypothyroidism 12/12/2021: Advance directive discussed with patient 06/20/2018: Allergic rhinitis 01/28/2017: Anticoagulated on Coumadin Comment: Per Dr. Francis: Aortic (per cardio target INR of 2-2.5.), was placed on coumadin per cardio due to US showing a build up on the bovine Valve, Started in 12/201510/09/2002: Aortic valve disorder Comment: History: s/p AVR October 2002 Assessment: s/p 10/29/2018: Redo sternotomy AVR ( tissue valve size 27 ) was implanted in usual manner, LLANOS ( skeletonized ) to LAD BRIEF FINDINGS: Dense pericardial adhesions, degeneration of previous implanted aortic valve, Excellent quality and flow in LLANOS and good size LAD target Plan: ASA 11/13/2005: Aortic valve replaced Comment: Aortic, was placed on coumadin per cardio due to US showing a build up on the bovine Valve, Started in 12/201511/13/2005: Aortic valve replaced Comment: 10/2018 and anticoagulation was stopped. 10/18/2014: B12 deficiency 10/29/2008: Carotid stenosis, asymptomatic, bilateral Comment: S/P left repair, Sees Edu for yearly US. 08/24/2015: Coronary atherosclerosis Comment: History: S/p CABG with a sequential graft to the diagonal branch, lateral and posterior lateral circumflex branches as well as PDA in October 2002 Assessment: Now s/p CABG x 1 LLANOS to LAD Plan: CAD Core Measures: Aspirin: Yes Beta blockers: Yes Statins: Lipitor 40mg started -, LFTs normal-continue on dc. 06/19/2016: Elevated fasting blood sugar 10/30/2018: Essential hypertension Comment: 01/31/2010: Family history of colon cancer No date: Family history of malignant neoplasm of gastrointestinal tract 12/11/2019: Family history of Parkinson's disease 06/19/2017: History of DVT (deep vein thrombosis) Comment: Patient was on coumadin at the time. spring10/09/2002: History of rheumatic heart disease 12/12/2021: Living will on file Comment: DPA: Elizabet () 12/27/2015: Meniscus tear Comment: Right, minimal. Seen Lamont hebert 01/10/2021: Microscopic hematuria Comment: Saw Luciano 02/2021 and felt further w/u not warranted. 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 Dunn 08/26/2018: Obesity, Class I, BMI 30-34.9 01/10/2021: Other proteinuria Comment: 24 hr patient 01/2021 normal, Repeat yearly 01/10/2021: Other proteinuria Comment: 24 hr patient 01/2021 normal, 12/01/2013: Parkinson disease (HCC) 2006: Postsurgical aortocoronary bypass status No date: Rheum heart dis NEC/NOS Comment: Rheumatic fever 12/17/2016: Seasonal allergies Comment: Sees Dr. Dash 07/26/2015: Sleep disorder 01/28/2017: Synovial cyst of right popliteal space Comment: US ER 01/2017: 3.5 x 1.1 CM 12/03/2013: Vitamin D deficiency Previous Surgical History PAST SURGICAL HISTORY 01/08/2020: 2D ECHO (EXEP) Comment: EF=53%, mild LVH, No date: ABDOMINAL SURGERY HX 10/29/2018: CABG W/ARTERIAL GRAFT SINGLE ARTERIAL GRAFT Comment: used mammorary artery 2003: COLONOSCOPY FLX DX W/COLLJ SPEC WHEN PFRMD Comment: Colonoscopy 03/24/2010: COLONOSCOPY FLX DX W/COLLJ SPEC WHEN PFRMD Comment: Normal, recheck 5 yrs 01/28/2015: COLONOSCOPY FLX DX W/COLLJ SPEC WHEN PFRMD Comment: repeat in 5 yrs 07/03/2021: COLONOSCOPY FLX DX W/COLLJ SPEC WHEN PFRMD Comment: repeat in 5 years-polyp 2002: CORONARY ARTERY BYP W/VEIN AND ARTERY GRAFT 4 VEIN Comment: CABG, quadruple grafts 12/25/2016: FECAL OCCULT BLOOD TEST Comment: negative No date: HEART CATHETERIZATION Comment: [facility], No date: HEART SURGERY HX No date: HERNIA REPAIR HX : LAPAROSCOPY SURG CHOLECYSTECTOMY Comment: Cholecystectomy, lap 1997: LEFT HEART CATH,PERCUTANEOUS Comment: Cardiac cath, L heart 10/29/2018: PAST SURGICAL HISTORY OF Comment: Aortic valve replacement with pig valve and anticoagulation stopped No date: RADICAL RESECTIO (more content not included)... Normal [facility] Nickolas 04-07-2024 [facility] SONIYA COOLEY ([id number]) 1940 M Date Time Provider Department 04/07/24 ELLA VALDOVINOS [facility] During your visit today, we recorded the following information about you: Ella Valdovinos PA-C 04/07/2024 11:14 AM Signed Ordering labs for next year's wellness exam. Ella Valdovinos PA-C Allergies As of Date: 04/07/2024 Noted Allergy Reaction IODINE 10/09/2002 14 - Other: See Comments Comments: ?decreased BP with iodinated contrast during a cardiac cath. Pt reports he was told by the game agent that they almost lost him due to his reaction and was allergic reaction. The patient reports taking 13 hour allergy premedications in the past with Iodinated contrast without experiencing any breakthrough reaction. PENICILLIN G 10/09/2002 4 - Hives Date Reviewed: 04/07/2024 Reviewed by: Hazel Sellers LPN - Fully Assessed Reason for Visit: Orders [681] Primary Visit Diagnosis:Mixed hyperlipidemia [E78.2] Other Visit Diagnoses:Essential hypertension [I10] B12 deficiency [E53.8] Elevated blood sugar [R73.9] Acquired hypothyroidism [E03.9] Vitamin D deficiency [E55.9] Order(s):LIPID PANEL, NONFASTING [SQLIPNF] Order #: [id number] FUTURE URINALYSIS, WITH MICROSCOPIC [SQUAWMIC] Order #: [id number] FUTURE COMPREHENSIVE METABOLIC PANEL [SQCMP] Order #: [id number] FUTURE HEMOGLOBIN A1C [RODWA2J] Order #: [id number] FUTURE THYROID STIMULATING HORMONE [SQTSH] Order #: [id number] FUTURE VITAMIN D 25 HYDROXY [SQVITD] Order #: [id number] FUTURE VITAMIN B12 [SQB12] Order #: [id number] FUTURE COMPLETE BLOOD COUNT AND DIFFERENTIAL [SQCBCDIF] Order #: [id number] FUTURE Prescriptions as of 04/07/2024 - tamsulosin (FLOMAX) 0.4 mg Take 2 capsules by mouth daily at bedtime. - levothyroxine (SYNTHROID) 25 mcg tablet Take 1 tablet by mouth once daily. Take on empty stomach. For thyroid. - atorvastatin (LIPITOR) 80 mg tablet Take 1 tablet by mouth once daily. - ezetimibe (ZETIA) 10 mg tablet Take 1 tablet by mouth once daily. - metoprolol tartrate, short acting, (LOPRESSOR) 50 mg tablet Take 1 tablet by mouth two times a day. - carbidopa-levodopa (SINEMET 25-100) 25-100 mg per tablet TAKE 3 TABLETS 3 TIMES A DAY - meloxicam (MOBIC) 15 mg tablet once daily. - cyanocobalamin, vitamin B-12, 500 mcg ODT Take 2 tablets by mouth once daily. - nitroglycerin sublingual (NITROQUICK) 0.4 mg SL tablet Dissolve 1 tablet under the tongue every 5 minutes as needed. - clindamycin (CLEOCIN) 150 mg capsule Take 4 tabs 30-60 min before dental procedures. - aspirin, enteric coated (ECOTRIN LOW STRENGTH) 81 mg EC tablet Take 1 tablet by mouth once daily. - acetaminophen (TYLENOL) 500 mg tablet Take 1,000 mg by mouth every 8 hours as needed for Pain. - fluticasone (FLONASE) 50 mcg/actuation nasal spray Use 1 Blum in each nostril once daily. Rinse mouth after use. - Cholecalciferol, Vitamin D3, 2,000 unit cap Take 2 tablets by mouth once daily. - omega-3 fatty acids/vitamin e(FISH OIL 1,000 MG CAP) one tablet twice daily - multivitamins w-minerals/lut(CENTRU M SILVER TAB) One tablet daily Facility-Administered Medications as of 04/07/2024 - perflutren lipid microspheres 1.3 mL in NaCl (PF) 0.9% 10 mL injection (DEFINITY) - sodium chloride 0.9 % (flush) 10 mL (BD POSIFLUSH) Meds Comments as of 11/04/2018: 11/04/18 The medications are managed by this patient by: PATIENT and SPOUSE Rhea Emery Pharm-T Problem List As Of Date 04/07/2024 Noted Resolved Aortic valve disorder [I35.9] 10/09/2002 01/14/2020 Mixed hyperlipidemia [E78.2] 10/09/2002 History of rheumatic heart disease [Z86.79] 10/09/2002 Aortic valve replaced [Z95.2] 11/13/2005 Benign localized prostatic hyperplasia with low*2006 Postsurgical aortocoronary bypass status [Z95.1]2006 Abnormal involuntary movements [R25.8, R25.9] 12/16/2007 02/28/2012 Cervicalgia [M54.2] 10/22/2008 02/22/2011 Carotid stenosis, asymptomatic, bilateral [I65.*10/29/2008 Family history of colon cancer [Z80.0] 01/31/2010 07/03/2021 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/01/2013 Vitamin D deficiency [E55.9] 12/03/2013 B12 deficiency [E53.8] 10/18/2014 Nocturnal hypoxemia [G47.34] 07/26/2015 Sleep disorder [G47.9] 07/26/2015 Coronary 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quechan ballard*08/24/2015 Meniscus tear [S83.209A] 12/27/2015 Elevated blood sugar [R73.9] 06/19/2016 Seasonal allergies [J30.2] 12/17/2016 01/14/2020 Medicare annual wellness visit, subsequent [Z00*12/17/2016 Colon cancer screening [Z12.11] 12/17/2016 01/14/2020 Synovial cyst of right popliteal space [M71.21] 01/28/2017 History of DVT (deep vein thrombosis) [Z86.718] 06/19/2017 Allergic rhinitis [J30.9] 06/20/2018 Obesity, Class I, BMI 30-34.9 [E66.9] 08/26/2018 Stress hyperglycemia [R73.9] 10/29/2018 11/01/2018 Coagulopathy (HCC) [D68. (more content not included)... Normal [facility] CNOVon 03-11-2024 CNOV Office Visit ([facility] ) SONIYA COOLEY ([id number]) 1940 M Date Time Provider Department 03/11/24 1:00 PM ABBY PATE [facility] During your visit today, we recorded the following information about you: Pulse Blood pressure Weight Height 66/minute 113/74 85.6 kg 1.702 m Abby Pate MD 03/11/2024 2:11 PM Signed Neurology Follow Up Note Subjective Soniya Ella Cooley is a 83 year old male who presents for follow up. CC: PD Summary of prior care: 01/2020 right-handed male with a history of CAD / s/p CABG and AVR, left carotid stenosis s/p CEA, and tremor who presents for evaluation of tremor. His examination demonstrates mild parkinsonian features. His presentation is most consistent with Parkinson's Disease. He has motor features of tremor, mild left sided bradykinesia, and mild gait changes. He has mild hypomimia and hypophonia. 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 First visit 01/2020 taper off primidone, start levodopa, encourage exercise, increase hydration but caution with cardiac disease, start miralax. 05/2020 increase levodopa to 150 mg TID, increase hydration, add miralax. 10/2020 increase to 200 mg TID. 04/2021 increase levodopa to 300 mg TID, add melatonin. 08/2021 taper off levodopa without benefit. 12/2021 had increased to 300 TID, no change. 06/2022 try 250 TID with mild dyskinesia. 03/2023 offered changes deferred. 09/2023 no changes. HPI Current Issues 1. PD - Seems like doing worse - More tremor - Had knee surgery 3 weeks ago, seems a bit worse since then - Taking 3 pills TID still - No clear levodopa side effects - His notices wearing OFF and more clear ON effect, he doesn't seem to notice variability - One fall where was backing up and lost balance falling over the arm of a chair 2. Constipation - Was worse around surgery / pain medicine added stool softener now back to normal with Miralax 3. Sleep - Still trouble urinating all night - Was started on Flomax 7 12 5 Cd/ld 25/100 3 3 3 Current Outpatient Medications Medication Sig Dispense Refill tamsulosin (FLOMAX) 0.4 mg Take 1 capsule by mouth daily at bedtime. 30 capsule 5 levothyroxine (SYNTHROID) 25 mcg tablet Take 1 tablet by mouth once daily. Take on empty stomach. For thyroid. 90 tablet 1 atorvastatin (LIPITOR) 80 mg tablet Take 1 tablet by mouth once daily. 90 tablet 1 ezetimibe (ZETIA) 10 mg tablet Take 1 tablet by mouth once daily. 90 tablet 3 metoprolol tartrate, short acting, (LOPRESSOR) 50 mg tablet Take 1 tablet by mouth two times a day. 180 tablet 1 carbidopa-levodopa (SINEMET 25-100) 25-100 mg per tablet TAKE 3 TABLETS 3 TIMES A DAY 810 tablet 2 meloxicam (MOBIC) 15 mg tablet once daily. cyanocobalamin, vitamin B-12, 500 mcg ODT Take 2 tablets by mouth once daily. nitroglycerin sublingual (NITROQUICK) 0.4 mg SL tablet Dissolve 1 tablet under the tongue every 5 minutes as needed. 5 tablet 1 clindamycin (CLEOCIN) 150 mg capsule Take 4 tabs 30-60 min before dental procedures. 4 capsule 3 aspirin, enteric coated (ECOTRIN LOW STRENGTH) 81 mg EC tablet Take 1 tablet by mouth once daily. acetaminophen (TYLENOL) 500 mg tablet Take 1,000 mg by mouth every 8 hours as needed for Pain. fluticasone (FLONASE) 50 mcg/actuation nasal spray Use 1 Blum in each nostril once daily. Rinse mouth after use. 1 Bottle 5 Cholecalciferol, Vitamin D3, 2,000 unit cap Take 2 tablets by mouth once daily. 0 omega-3 fatty acids/vitamin e(FISH OIL 1,000 MG CAP) one tablet twice daily 0 multivitamins w-minerals/lut(CENTRU M SILVER TAB) One tablet daily 0 Current Facility-Administered Medications Medication Dose Route Frequency Provider Last Rate Last Admin perflutren lipid microspheres 1.3 mL in NaCl (PF) 0.9% 10 mL injection (DEFINITY) INTRAVENOUS DIRECTED PRMarj Mullen MD sodium chloride 0.9 % (flush) 10 mL (BD POSIFLUSH) 10 mL INTRAVENOUS DIRECTED PRN Marj Mackey MD REVIEW OF SYSTEMS His ROS was positive for that mentioned in the HPI. Otherwise a 10-point ROS was completed and was negative. Objective OBJECTIVE 03/11/24 1304 BP: 113/74 BP Site: Left Arm BP Position: Sitting BP Cuff Size: Large Adult Pulse: 66 Weight: 85.6 kg (188 lb 13.2 oz) Height: 170.2 cm (5' 7) General: General Appearance: Well appearing, alert, in no acute distress, well-hydrated, well nourished. Head: Normocephalic Neurologic Exam: Mental Status: He is alert. Attention is intact. Language shows normal comprehension and fluency. Affect is appropriate. Cranial Nerves: Extraocular movements show full and smooth pursuits. No nystagmus. Facial activation is symmetric. Hearing is intact to conversation. There is mild hypomimia. There is mild hypophonia. There is no dysarthria. Tongue is midline. Palate elevates symmetrically. Shoulder shru (more content not included)... Normal [facility] 02-24-2024 [facility] Telephone ([facility]) SONIYA COOLEY ([id number]) 1940 M Date Time Provider Department 02/24/24 [facility] FR[facility]IS [facility] During your visit today, we recorded the following information about you: Jessica Brown LPN 02/24/2024 4:26 PM Signed Pt and call to report at OV: 02/10/24 pt was prescribed flomax because he was getting up during the night to urinate. Pt reports he had knee surgery a week ago. Pt was supposed to wait two weeks after surgery to start Flomax but wanted to start medication right away. reports now pt is up more during the night urinating every 1.5-2 hours. Pt and are asking what pt should do because they are not getting much sleep at night. CHELLY Elizondo Danielle, APRN.[facility] 02/24/2024 4:33 PM Signed Is patient currently taking flomax? If he has not started medication he may start it. If he is taking it is he going more or less than before starting medication? Autumn Mares MA 02/24/2024 4:37 PM Signed Spoke to patient and . Pt states he is taking the Flomax and he is urinating more than before he started the medication. RUSLAN Navas Danielle, ANGIE.[facility] 02/25/2024 8:09 AM Signed Please let patient know it can take 2-6 weeks for medication to become effective. Stacy aVrghese, NORA 02/25/2024 11:51 AM Signed Call placed to patient and notified of provider message below. Patient verbalizes understanding and will continue taking Flomax. Stacy Varghese RN Allergies As of Date: 02/24/2024 Noted Allergy Reaction IODINE 10/09/2002 14 - Other: See Comments Comments: ?decreased BP with iodinated contrast during a cardiac cath. Pt reports he was told by the game agent that they almost lost him due to his reaction and was allergic reaction. The patient reports taking 13 hour allergy premedications in the past with Iodinated contrast without experiencing any breakthrough reaction. PENICILLIN G 10/09/2002 4 - Hives Date Reviewed: 02/10/2024 Reviewed by: Carmen Stoner MA - Fully Assessed Reason for Visit: Medication Question [7338] Prescriptions as of 02/25/2024 - tamsulosin (FLOMAX) 0.4 mg Take 1 capsule by mouth daily at bedtime. - levothyroxine (SYNTHROID) 25 mcg tablet Take 1 tablet by mouth once daily. Take on empty stomach. For thyroid. - atorvastatin (LIPITOR) 80 mg tablet Take 1 tablet by mouth once daily. - ezetimibe (ZETIA) 10 mg tablet Take 1 tablet by mouth once daily. - metoprolol tartrate, short acting, (LOPRESSOR) 50 mg tablet Take 1 tablet by mouth two times a day. - carbidopa-levodopa (SINEMET 25-100) 25-100 mg per tablet TAKE 3 TABLETS 3 TIMES A DAY - meloxicam (MOBIC) 15 mg tablet once daily. - cyanocobalamin, vitamin B-12, 500 mcg ODT Take 2 tablets by mouth once daily. - nitroglycerin sublingual (NITROQUICK) 0.4 mg SL tablet Dissolve 1 tablet under the tongue every 5 minutes as needed. - clindamycin (CLEOCIN) 150 mg capsule Take 4 tabs 30-60 min before dental procedures. - aspirin, enteric coated (ECOTRIN LOW STRENGTH) 81 mg EC tablet Take 1 tablet by mouth once daily. - acetaminophen (TYLENOL) 500 mg tablet Take 1,000 mg by mouth every 8 hours as needed for Pain. - fluticasone (FLONASE) 50 mcg/actuation nasal spray Use 1 Blum in each nostril once daily. Rinse mouth after use. - Cholecalciferol, Vitamin D3, 2,000 unit cap Take 2 tablets by mouth once daily. - omega-3 fatty acids/vitamin e(FISH OIL 1,000 MG CAP) one tablet twice daily - multivitamins w-minerals/lut(CENTRU M SILVER TAB) One tablet daily Facility-Administered Medications as of 02/25/2024 - perflutren lipid microspheres 1.3 mL in NaCl (PF) 0.9% 10 mL injection (DEFINITY) - sodium chloride 0.9 % (flush) 10 mL (BD POSIFLUSH) Meds Comments as of 11/04/2018: 11/04/18 The medications are managed by this patient by: PATIENT and SPOUSE Rhea Irwin Rupert Pharm-T Problem List As Of Date 02/24/2024 Noted Resolved Aortic valve disorder [I35.9] 10/09/2002 01/14/2020 Mixed hyperlipidemia [E78.2] 10/09/2002 History of rheumatic heart disease [Z86.79] 10/09/2002 Aortic valve replaced [Z95.2] 11/13/2005 Benign localized prostatic hyperplasia with low*2006 Postsurgical aortocoronary bypass status [Z95.1]2006 Abnormal involuntary movements [R25.8, R25.9] 12/16/2007 02/28/2012 Cervicalgia [M54.2] 10/22/2008 02/22/2011 Carotid stenosis, asymptomatic, bilateral [I65.*10/29/2008 Family history of colon cancer [Z80.0] 01/31/2010 07/03/2021 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/01/2013 Vitamin D deficiency [E55.9] 12/03/2013 B12 deficiency [E53.8] 10/18/2014 Nocturnal hypoxemia [G47.34] 07/26/2015 Sleep disorder [G47.9] 07/26/2015 Coronary 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quechan ballard*08/24/2015 Meniscus tear [S83.209A] 12/27/2015 Elevated blood sugar [R73.9] 06/19/2016 Seasonal (more content not included)... Normal [facility] .Auto Diffon 02-19-2024 Basophil, Absolute 0.0 10 3/mcL Normal 0.0-0.2 [facility] [place] Comment on above: Performed By: #### A BOGEL, ANEU, CBC, GFR, ADIFF, ABSGEL, BMP, ALB #### [address] [address] Basophils/100 WBC (Bld) 0.0 % Normal 0.0-2.5 [facility] ([place]) Comment on above: Performed By: #### A BOGEL, ANEU, CBC, GFR, ADIFF, ABSGEL, BMP, ALB #### [address] [address] Eosinophil, Absolute 0.0 10 3/mcL Normal 0.0-0.4 [facility] ([place]) Comment on above: Performed By: #### A BOGEL, ANEU, CBC, GFR, ADIFF, ABSGEL, BMP, ALB #### [address] [address] Eosinophils/100 WBC (Bld) 0.0 % Normal 0.0-7.0 [facility] ([place]) Comment on above: Performed By: #### A BOGEL, ANEU, CBC, GFR, ADIFF, ABSGEL, BMP, ALB #### [address] [address] Lymphocyte, Absolute 1.2 10 3/mcL Normal 0.8-3.9 [facility] ([place]) Comment on above: Performed By: #### A BOGEL, ANEU, CBC, GFR, ADIFF, ABSGEL, BMP, ALB #### [address] [address] Lymphocytes/100 WBC (Bld) 8.8 % Low 10.0-50.0 [facility] ([place]) Comment on above: Performed By: #### A BOGEL, ANEU, CBC, GFR, ADIFF, ABSGEL, BMP, ALB #### [address] [address] Monocyte, Absolute 0.6 10 3/mcL Normal 0.2-1.0 [facility] [place] Comment on above: Performed By: #### A BOGEL, ANEU, CBC, GFR, ADIFF, ABSGEL, BMP, ALB #### [address] [address] Monocytes/100 WBC (Bld) 4.7 % Normal 1.7-13.0 [facility] ([place]) Comment on above: Performed By: #### A BOGEL, ANEU, CBC, GFR, ADIFF, ABSGEL, BMP, ALB #### [address] [address] Neutrophils/100 WBC (Bld) 86.5 % High 37.0-80.0 [facility] ([place]) Comment on above: Performed By: #### A BOGEL, ANEU, CBC, GFR, ADIFF, ABSGEL, BMP, ALB #### [address] [address] .GFRon 02-19-2024 GFR 95 ml/min/1.73sqm Normal [facility] ([place]) Comment on above: Result Comment: GFR Population mean for , Non- Americans Ages 20-29 = 116 mL/min/1.73 sq.m. Ages 30-39 = 107 mL/min/1.73 sq.m. Ages 40-49 = 99 mL/min/1.73 sq.m. Ages 50-59 = 93 mL/min/1.73 sq.m. Ages 60-69 = 85 mL/min/1.73 sq.m. Ages 70+ = 75 mL/min/1.73 sq.m. Chronic Kidney Disease: Less than 60 mL/min/1.73 square meters End Stage Renal Disease: Less than 15 mL/min/1.73 square meters Performed By: #### A BOGEL, ANEU, CBC, GFR, ADIFF, ABSGEL, BMP, ALB #### [address] [address] GFR Non- 79 ml/min/1.73sqm Normal [facility] ([place]) Comment on above: Result Comment: GFR Population mean for , Non- Americans Ages 20-29 = 116 mL/min/1.73 sq.m. Ages 30-39 = 107 mL/min/1.73 sq.m. Ages 40-49 = 99 mL/min/1.73 sq.m. Ages 50-59 = 93 mL/min/1.73 sq.m. Ages 60-69 = 85 mL/min/1.73 sq.m. Ages 70+ = 75 mL/min/1.73 sq.m. Chronic Kidney Disease: Less than 60 mL/min/1.73 square meters End Stage Renal Disease: Less than 15 mL/min/1.73 square meters Performed By: #### A BOGEL, ANEU, CBC, GFR, ADIFF, ABSGEL, BMP, ALB #### [address] [address] .NEUABSon 02-19-2024 Neutrophil, Absolute 11.7 10 3/mcL High 2.9-6.2 A [facility] ([place]) Comment on above: Performed By: #### A BOGEL, ANEU, CBC, GFR, ADIFF, ABSGEL, BMP, ALB #### [address] [address] BMPon 02-19-2024 BUN/Creatinine Ratio 25 ratio Normal 7-27 [facility] [place] Comment on above: Performed By: #### A BOGEL, ANEU, CBC, GFR, ADIFF, ABSGEL, BMP, ALB #### [address] [address] Calcium [Mass/Vol] 8.9 mg/dL Normal 8.4-10.2 [facility] ([place]) Comment on above: Performed By: #### A BOGEL, ANEU, CBC, GFR, ADIFF, ABSGEL, BMP, ALB #### [address] [address] Chloride [Moles/Vol] 105 mmol/L Normal 98-107 [facility] [place] Comment on above: Performed By: #### A BOGEL, ANEU, CBC, GFR, ADIFF, ABSGEL, BMP, ALB #### [address] [address] CO2 [Moles/Vol] 26 mmol/L Normal 23-31 [facility] ([place]) Comment on above: Performed By: #### A BOGEL, ANEU, CBC, GFR, ADIFF, ABSGEL, BMP, ALB #### [address] [address] Creatinine [Mass/Vol] 0.92 mg/dL Normal 0.70-1.30 [facility] [place] Comment on above: Performed By: #### A BOGEL, ANEU, CBC, GFR, ADIFF, ABSGEL, BMP, ALB #### [address] [address] Electrolyte Balance 8.0 mEq/L Normal 4.0-15.0 [facility] ([place]) Comment on above: Performed By: #### A JAMIEEL, ANEU, CBC, GFR, ADIFF, ABSGEL, BMP, ALB #### [address] [address] Glucose [Mass/Vol] 131 mg/dL High 83-110 [facility] ([place]) Comment on above: Performed By: #### A ARA, ANEU, CBC, GFR, ADIFF, ABSGEL, BMP, ALB #### [address] [address] Potassium [Moles/Vol] 4.2 mmol/L Normal 3.5-5.1 [facility] [place] Comment on above: Performed By: #### A ARA ANEU, CBC, GFR, ADIFF, ABSGEL, BMP, ALB #### [address] [address] Sodium [Moles/Vol] 139 mmol/L Normal 136-145 [facility] ([place]) Comment on above: Performed By: #### A BOGEL, ANEU, CBC, GFR, ADIFF, ABSGEL, BMP, ALB #### [address] [address] Urea nitrogen [Mass/Vol] 23 mg/dL High 7-18 [facility] ([place] Comment on above: Performed By: #### A BOGEL, ANEU, CBC, GFR, ADIFF, ABSGEL, BMP, ALB #### [address] [address] CBCon 02-19-2024 Erythrocyte distribution width (RBC) [Ratio] 13.7 % Normal 11.5-14.5 [facility] ([place]) Comment on above: Performed By: #### G FR, ADIFF, CBC, ANEU, BMP #### [address] [address] Hematocrit (Bld) [Volume fraction] 37.1 % Low 42.0-52.0 [facility] ([place]) Comment on above: Performed By: #### G FR, ADIFF, CBC, ANEU, BMP #### [address] [address] Hgb 12.7 G/dL Low 14.0-18.0 [facility] ([place] Comment on above: Performed By: #### G FR, ADIFF, CBC, ANEU, BMP #### [address] [address] MCH (RBC) [Entitic mass] 33.1 pg High 27.0-31.2 [facility] ([place]) Comment on above: Performed By: #### Levi FR, ADIFF, CBC, ANEU, BMP #### [address] [address] MCHC 34.2 G/dL Normal 31.8-35.4 [facility] ([place]) Comment on above: Performed By: #### Levi FR, ADIFF, CBC, ANEU, BMP #### [address] [address] MCV (RBC) [Entitic vol] 96.7 fL High 80.0-94.0 [facility] ([place]) Comment on above: Performed By: #### G FR, ADIFF, CBC, ANEU, BMP #### [address] [address] Platelet 135 10 3/mcL Normal 130-400 [facility] ([place]) Comment on above: Performed By: #### G FR, ADIFF, CBC, ANEU, BMP #### [address] [address] Platelet mean volume (Bld) [Entitic vol] 9.4 fL Normal 7.4-10.4 [facility] ([place]) Comment on above: Performed By: #### G FR, ADIFF, CBC, ANEU, BMP #### [address] [place], [place] [address] RBC 3.84 10 6/mcL Low 4.04-6.13 [facility] ([place]) Comment on above: Performed By: #### G FR, ADIFF, CBC, ANEU, BMP #### [address] [place], [place] [address] WBC 13.6 10 3/mcL High 4.6-10.8 [facility] ([place]) Comment on above: Performed By: #### G FR, ADIFF, CBC, ANEU, BMP #### [address] [address] LABORATORYOrdered By: SYSTEM SYSTEM on 02-19-2024 Basophil, Absolute 0.0 103/mcL Normal 0.0 - 0.2 10^3/mcL AO Workflow SS Basophils/100 WBC (Bld) 0.0 % Normal 0.0 - 2.5 % AO Workflow SS Calcium [Mass/Vol] 8.9 mg/dL Normal 8.4 - 10. 2 mg/dL AO ADM SS Chloride [Moles/Vol] 105 mmol/L Normal 98 - 10 7 mmol/L AO ADM SS CO2 [Moles/Vol] 26 mmol/L Normal 23 - 31 mmol/L AO ADM SS Creatinine [Mass/Vol] 0.92 mg/dL Normal 0.70 - 1.30 mg/dL AO ADM SS Electrolyte Balance 8.0 mEq/L Normal 4.0 - 15 .0 mEq/L AO ADM SS Eosinophil, Absolute 0.0 103/mcL Normal 0.0 - 0 .4 10^3/mcL AO Workflow SS Eosinophils/100 WBC (Bld) 0.0 % Normal 0.0 - 7.0 % AO Workflow SS Erythrocyte distribution width (RBC) [Ratio] 13.7 % Normal 11.5 - 14.5 % AO Workflow SS GFR/1.73 sq M.predicted among blacks MDRD (S/P/Bld) [Vol rate/Area] 95 ml/min/1.73sqm Invalid Interpretation Code AO Chemistry S Comment on above: Interpretive Data: GFR Population mean for , Non- Americans Ages 20-29 = 116 mL/min/1.73 sq.m. Ages 30-39 = 107 mL/min/1.73 sq.m. Ages 40-49 = 99 mL/min/1.73 sq.m. Ages 50-59 = 93 mL/min/1.73 sq.m. Ages 60-69 = 85 mL/min/1.73 sq.m. Ages 70+ = 75 mL/min/1.73 sq.m. Chronic Kidney Disease: Less than 60 mL/min/1.73 square meters End Stage Renal Disease: Less than 15 mL/min/1.73 square meters GFR/1.73 sq M.predicted among non-blacks MDRD (S/P/Bld) [Vol rate/Area] 79 ml/min/1.73sqm Invalid Interpretation Code AO Chemistry S Comment on above: Interpretive Data: GFR Population mean for , Non- Americans Ages 20-29 = 116 mL/min/1.73 sq.m. Ages 30-39 = 107 mL/min/1.73 sq.m. Ages 40-49 = 99 mL/min/1.73 sq.m. Ages 50-59 = 93 mL/min/1.73 sq.m. Ages 60-69 = 85 mL/min/1.73 sq.m. Ages 70+ = 75 mL/min/1.73 sq.m. Chronic Kidney Disease: Less than 60 mL/min/1.73 square meters End Stage Renal Disease: Less than 15 mL/min/1.73 square meters Glucose [Mass/Vol] 131 mg/dL High 83 - 110 mg/dL AO ADM SS Hematocrit (Bld) [Volume fraction] 37.1 % Low 42.0 - 52.0 % AO Workflow SS Hemoglobin (Bld) [Mass/Vol] 12.7 G/dL Low 14.0 - 18.0 G/dL AO Workflow SS Lymphocyte, Absolute 1.2 103/mcL Normal 0.8 - 3 .9 10^3/mcL AO Workflow SS Lymphocytes/100 WBC (Bld) 8.8 % Low 10.0 - 50.0 % AO Workflow SS MCH (RBC) [Entitic mass] 33.1 pg High 27.0 - 31.2 pg AO Workflow SS MCHC 34.2 G/dL Normal 31.8 - 35.4 G/dL AO Workflow SS MCV (RBC) [Entitic vol] 96.7 fL High 80.0 - 94.0 fL AO Workflow SS Monocyte, Absolute 0.6 103/mcL Normal 0.2 - 1.0 10^3/mcL AO Workflow SS Monocytes/100 WBC (Bld) 4.7 % Normal 1.7 - 13.0 % AO Workflow SS Neutrophil, Absolute 11.7 103/mcL High 2.9 - 6 .2 10^3/mcL AO Workflow SS Neutrophils/100 WBC (Bld) 86.5 % High 37.0 - 80.0 % AO Workflow SS Platelet mean volume (Bld) [Entitic vol] 9.4 fL Normal 7.4 - 10.4 fL AO Workflow SS Platelets (Bld) [#/Vol] 135 103/mcL Normal 130 - 400 10^3/mcL AO Workflow SS Potassium [Moles/Vol] 4.2 mmol/L Normal 3.5 - 5.1 mmol/L AO ADM SS RBC (Bld) [#/Vol] 3.84 106/mcL Low 4.04 - 6.1 3 10^6/mcL AO Workflow SS Sodium [Moles/Vol] 139 mmol/L Normal 136 - 145 mmol/L AO ADM SS Urea nitrogen [Mass/Vol] 23 mg/dL High 7 - 18 mg/dL AO ADM SS Urea nitrogen/Creatinine [Mass ratio] 25 ratio Normal 7 - 27 ratio AO ADM SS WBC (Bld) [#/Vol] 13.6 103/mcL High 4.6 - 10.8 10^3/mcL AO Workflow SS ABO/Rh (Gel)on 02-18-2024 ABO/Rh Interp Positive Invalid Interpretation Code [facility] ([place]) Comment on above: Performed By: #### A LA BULLOCK, CBC, GFR, ADIFF, ABSGEL, BMP, ALB #### [address] [address] ABS (Gel)on 02-18-2024 ABSC Interp (Gel) Negative Normal [facility] ([place]) Comment on above: Performed By: #### A AL BULLOCK, CBC, GFR, ADIFF, ABSGEL, BMP, ALB #### [id number] [place], [place] [address] LABORATORYOrdered By: Pee Leavitt on 02-18-2024 ABO and Rh group Nom (Bld) Blood group A Rh(D) positive Invalid Interpretation Code AO BB Auto SS Blood group antibody screen Ql Negative ABSC (02/18/24 11:17 AM) Normal AO BB Auto SS XR KNEE 1 OR 2 VIEWS LEFTon 02-18-2024 XR KNEE 1 OR 2 VIEWS LEFT ORIGINAL EXAMINATION: TWO XRAY VIEWS OF THE LEFT KNEE 02/18/2024 3:33 pm COMPARISON: CT dated 01/27/2024 HISTORY: ORDERING SYSTEM PROVIDED HISTORY: Reason for Exam: Status Post Arthroplasty IMPRESSION: Status post left knee arthroplasty, patellar spurring. The hardware is intact. There are surgical skin tony. Expected postoperative changes including subcutaneous swelling, gas and joint fluid. No acute fracture. Hardware is intact. Vascular calcifications. Interpreted by: Nae Rahman Preliminary Report By: Nae Rahman Electronically signed By Nae Rahman Dictated Date: 02/18/2024 3:47:42 PM Prelim Date: 02/18/2024 3:48:22 PM Sign Date: 02/18/2024 3:48:22 PM Ordering Provider: DEAN Rivas [facility] ([place]) Nickolas 02-12-2024 [facility] Telephone (FAMPWS) SONIYA COOLEY ([id number]) 1940 Date Time Provider Department 02/12/24 [facility] During your visit today, we recorded the following information about you: Shae Morrissey LPN 02/12/2024 4:13 PM Signed Katia calling from [facility], pt is there for a pre op appt. Requesting last 2 chest xrays. Xrays from 12/14/23 AND 01/31/24 faxed to [phone]. Shae Morrissey LPN Allergies As of Date: 02/12/2024 Noted Allergy Reaction IODINE 10/09/2002 14 - Other: See Comments Comments: ?decreased BP with iodinated contrast during a cardiac cath. Pt reports he was told by the game agent that they almost lost him due to his reaction and was allergic reaction. The patient reports taking 13 hour allergy premedications in the past with Iodinated contrast without experiencing any breakthrough reaction. PENICILLIN G 10/09/2002 4 - Hives Date Reviewed: 02/10/2024 Reviewed by: Carmen Stoner MA - Fully Assessed Reason for Visit: Requsting Records [Other] Prescriptions as of 02/12/2024 - tamsulosin (FLOMAX) 0.4 mg Take 1 capsule by mouth daily at bedtime. - levothyroxine (SYNTHROID) 25 mcg tablet Take 1 tablet by mouth once daily. Take on empty stomach. For thyroid. - atorvastatin (LIPITOR) 80 mg tablet Take 1 tablet by mouth once daily. - ezetimibe (ZETIA) 10 mg tablet Take 1 tablet by mouth once daily. - metoprolol tartrate, short acting, (LOPRESSOR) 50 mg tablet Take 1 tablet by mouth two times a day. - carbidopa-levodopa (SINEMET 25-100) 25-100 mg per tablet TAKE 3 TABLETS 3 TIMES A DAY - meloxicam (MOBIC) 15 mg tablet once daily. - cyanocobalamin, vitamin B-12, 500 mcg ODT Take 2 tablets by mouth once daily. - nitroglycerin sublingual (NITROQUICK) 0.4 mg SL tablet Dissolve 1 tablet under the tongue every 5 minutes as needed. - clindamycin (CLEOCIN) 150 mg capsule Take 4 tabs 30-60 min before dental procedures. - aspirin, enteric coated (ECOTRIN LOW STRENGTH) 81 mg EC tablet Take 1 tablet by mouth once daily. - acetaminophen (TYLENOL) 500 mg tablet Take 1,000 mg by mouth every 8 hours as needed for Pain. - fluticasone (FLONASE) 50 mcg/actuation nasal spray Use 1 Blum in each nostril once daily. Rinse mouth after use. - Cholecalciferol, Vitamin D3, 2,000 unit cap Take 2 tablets by mouth once daily. - omega-3 fatty acids/vitamin e(FISH OIL 1,000 MG CAP) one tablet twice daily - multivitamins w-minerals/lut(CENTRU M SILVER TAB) One tablet daily Facility-Administered Medications as of 02/12/2024 - perflutren lipid microspheres 1.3 mL in NaCl (PF) 0.9% 10 mL injection (DEFINITY) - sodium chloride 0.9 % (flush) 10 mL (BD POSIFLUSH) Meds Comments as of 11/04/2018: 11/04/18 The medications are managed by this patient by: PATIENT and SPOUSE Rhea Irwin Rupert Pharm-T Problem List As Of Date 02/12/2024 Noted Resolved Aortic valve disorder [I35.9] 10/09/2002 01/14/2020 Mixed hyperlipidemia [E78.2] 10/09/2002 History of rheumatic heart disease [Z86.79] 10/09/2002 Aortic valve replaced [Z95.2] 11/13/2005 Benign localized prostatic hyperplasia with low*2006 Postsurgical aortocoronary bypass status [Z95.1]2006 Abnormal involuntary movements [R25.8, R25.9] 12/16/2007 02/28/2012 Cervicalgia [M54.2] 10/22/2008 02/22/2011 Carotid stenosis, asymptomatic, bilateral [I65.*10/29/2008 Family history of colon cancer [Z80.0] 01/31/2010 07/03/2021 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/01/2013 Vitamin D deficiency [E55.9] 12/03/2013 B12 deficiency [E53.8] 10/18/2014 Nocturnal hypoxemia [G47.34] 07/26/2015 Sleep disorder [G47.9] 07/26/2015 Coronary 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quechan ballard*08/24/2015 Meniscus tear [S83.209A] 12/27/2015 Elevated blood sugar [R73.9] 06/19/2016 Seasonal allergies [J30.2] 12/17/2016 01/14/2020 Medicare annual wellness visit, subsequent [Z00*12/17/2016 Colon cancer screening [Z12.11] 12/17/2016 01/14/2020 Synovial cyst of right popliteal space [M71.21] 01/28/2017 History of DVT (deep vein thrombosis) [Z86.718] 06/19/2017 Allergic rhinitis [J30.9] 06/20/2018 Obesity, Class I, BMI 30-34.9 [E66.9] 08/26/2018 Stress hyperglycemia [R73.9] 10/29/2018 11/01/2018 Coagulopathy (HCC) [D68.9] 10/29/2018 10/30/2018 Essential hypertension [I10] 10/30/2018 Family history of malignant neoplasm of gastroi* 01/14/2020 Acute deep vein thrombosis (DVT) of distal vein*04/20/2019 01/14/2020 Tremor [R25.1] 12/11/2019 01/14/2020 Family history of Parkinson's disease [Z82.0] 12/11/2019 Stiffness of hand joint [M25.649] 12/31/2019 Swelling of both hands [M79.89] 12/31/2019 Acquired hypothyroidism [E03.9] 03/16/2020 Pre-operative cardiovascular examination [Z01.8*04/12/2020 Microscopic hematuria [R31.29] 01/10/2021 Other proteinuria [R80.8] 01/10/2021 12/25/2022 Living will on file [[id number]] 12/12/2021 (more content not included)... Normal [facility] CNOVon 02-10-2024 CNOV Office Visit (FAMPWS ) SONIYA COOLEY ([id number]) 1940 M Date Time Provider Department 02/10/24 9:40 AM ELLA VALDOVINOS FAMWS During your visit today, we recorded the following information about you: Pulse Respiration Blood pressure Weight 60/minute 16/minute 118/72 89.8 kg Height 1.702 m Ella Valdovinos PA-C 02/10/2024 12:14 PM Addendum Soniya Cooley is a 83 year old male here for a Medicare wellness visit. Medicare Health Risk Assessment General Health Very good Exercise: Minutes/Day Exercise: Days/Week Alcohol: Daily Use 2-4 times a month Alcohol: Drinks/Day 1 or 2 Alcohol: 6 or more drinks Never Feel off balance No Concerns: Teeth/Dentures No Concerns: Sexual function No Troubled by feelings None of the above Frequency: Eating healthy diet Several days ADLs requiring help Safety precautions in home/vehicle Yes Smoke, vape, chews tobacco No Difficulty hearing No Difficulty seeing Yes Current Providers Specialists: I have reviewed specialist-related care of the patient in the medical record. Medical/Family history review Reviewed and updated problem list, medical/surgical/fami ly/social history, medications, and allergies. Opioid use review Opioid Medications (last 90 days) No data to display Anxiety/Depression screening PHQ-9 Score: 4 (Minimal Depression) Recommendation: no further intervention at this time Cognitive screening Mini Cog score: 5/5 Cognitive screening reviewed and No further action needed (score 3-5). Functional Observation Was the patient's Timed Up AND Go test unsteady or ? 12 seconds? No Advance Care Planning Surrogate decision maker and/or advance care plan documented Measurements BP 118/72 Pulse 60 Resp 16 Ht 5' 7 (1.70m) Wt 198 lb (89.8kg) BMI 31.00 kg/(m2). Vision Screening: Follows with optometry/ophthalmolo gy Assessment/Plan Medicare annual wellness visit, subsequent (Z00.00) - Counseled on healthy diet and regular exercise - Fall avoidance information provided - Personalized prevention plan provided Chief Complaint Patient presents with: Yearly Exam Medicare Wellness Exam HPI Soniya Cooley is a 83 year old male who presents here today for preop and extensive exam. Patient with hx CAD, HTN, hyperlipidemia, Parkinson's Disease, B12 deficiency, BPH, hypothyroid, and those as below. Patient is scheduled for Left TKA on 02/18/[address] Caldwell. No recent medical changes Did get clearance from cardiology already. Concern today: increase in nocturnal urination. 3-5 times a night. Past medical history, appointments, medications, allergies reviewed. Previous Medical History PAST MEDICAL HISTORY Diagnosis Date Acquired hypothyroidism 03/16/2020 Advance directive discussed with patient 12/12/2021 Allergic rhinitis 06/20/2018 Anticoagulated on Coumadin 01/28/[address] Francis: Aortic (per cardio target INR of 2-2.5.), was placed on coumadin per cardio due to US showing a build up on the bovine Valve, Started in 12/2015 Aortic valve disorder 10/09/2002 History: s/p AVR October 2002 Assessment: s/p 10/29/2018: Redo sternotomy AVR ( tissue valve size 27 ) was implanted in usual manner, LLANOS ( skeletonized ) to LAD BRIEF FINDINGS: Dense pericardial adhesions, degeneration of previous implanted aortic valve, Excellent quality and flow in LLANOS and good size LAD target Plan: ASA Aortic valve replaced 11/13/2005 Aortic, was placed on coumadin per cardio due to US showing a build up on the bovine Valve, Started in 12/2015 Aortic valve replaced 11/13/200510/2018 and anticoagulation was stopped. B12 deficiency 10/18/2014 Carotid stenosis, asymptomatic, bilateral 10/29/2008 S/P left repair, Sees Edu for yearly US. Coronary atherosclerosis 08/24/2015 History: S/p CABG with a sequential graft to the diagonal branch, lateral and posterior lateral circumflex branches as well as PDA in October 2002 Assessment: Now s/p CABG x 1 LLANOS to LAD Plan: CAD Core Measures: Aspirin: Yes Beta blockers: Yes Statins: Lipitor 40mg started 11-01, LFTs normal-continue on dc. Elevated fasting blood sugar 06/19/2016 Essential hypertension 10/30/2018 Family history of colon cancer 01/31/2010 Family history of malignant neoplasm of gastrointestinal tract Family history of Parkinson's disease 12/11/2019 History of DVT (deep vein thrombosis) 06/19/2017 Patient was on coumadin at the time. spring History of rheumatic heart disease 10/09/2002 Living will on file 12/12/2021 DPA: Elizabet () Meniscus tear 12/27/2015 Right, minimal. Seen [facility] Microscopic hematuria 01/10/2021 Saw [facility]iano 02/2021 and felt further w/u not warranted. 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 Normal [facility] Nickolas 02-03-2024 NIGHATN Telephone (FAMPWS) SONIYA COOLEY ([id number]) 1940 M Date Time Provider Department 02/03/24 ELLA VALDOVINOS During your visit today, we recorded the following information about you: Ella Valdovinos PA-C 02/03/2024 2:14 PM Signed Repeat CXR is normal. LAUREN Hurst Sherill A, LPN 02/03/2024 3:00 PM Signed Left message for pt to contact office. CHELLY Emanuel Roxanne, MA 02/04/2024 11:15 AM Signed Left additional message for patient to contact office. RUSLAN Morales Krystle, RN 02/05/2024 8:34 AM Signed Patient calls and notified of results. Patient verbalizes understanding. Stacy Varghese RN Allergies As of Date: 02/03/2024 Noted Allergy Reaction IODINE 10/09/2002 14 - Other: See Comments Comments: ?decreased BP with iodinated contrast during a cardiac cath. Pt reports he was told by the game agent that they almost lost him due to his reaction and was allergic reaction. The patient reports taking 13 hour allergy premedications in the past with Iodinated contrast without experiencing any breakthrough reaction. PENICILLIN G 10/09/2002 4 - Hives Date Reviewed: 12/31/2023 Reviewed by: Oniel Francis MD - Fully Assessed Reason for Visit: Results [95] Prescriptions as of 02/05/2024 - levothyroxine (SYNTHROID) 25 mcg tablet Take 1 tablet by mouth once daily. Take on empty stomach. For thyroid. - atorvastatin (LIPITOR) 80 mg tablet Take 1 tablet by mouth once daily. - ezetimibe (ZETIA) 10 mg tablet Take 1 tablet by mouth once daily. - metoprolol tartrate, short acting, (LOPRESSOR) 50 mg tablet Take 1 tablet by mouth two times a day. - carbidopa-levodopa (SINEMET 25-100) 25-100 mg per tablet TAKE 3 TABLETS 3 TIMES A DAY - meloxicam (MOBIC) 15 mg tablet once daily. - cyanocobalamin, vitamin B-12, 500 mcg ODT Take 2 tablets by mouth once daily. - nitroglycerin sublingual (NITROQUICK) 0.4 mg SL tablet Dissolve 1 tablet under the tongue every 5 minutes as needed. - furosemide (LASIX) 40 mg tablet Take 1 tablet by mouth once daily. Per cardio - clindamycin (CLEOCIN) 150 mg capsule Take 4 tabs 30-60 min before dental procedures. - aspirin, enteric coated (ECOTRIN LOW STRENGTH) 81 mg EC tablet Take 1 tablet by mouth once daily. - acetaminophen (TYLENOL) 500 mg tablet Take 1,000 mg by mouth every 8 hours as needed for Pain. - fluticasone (FLONASE) 50 mcg/actuation nasal spray Use 1 Blum in each nostril once daily. Rinse mouth after use. - Cholecalciferol, Vitamin D3, 2,000 unit cap Take 2 tablets by mouth once daily. - omega-3 fatty acids/vitamin e(FISH OIL 1,000 MG CAP) one tablet twice daily - multivitamins w-minerals/lut(CENTRU M SILVER TAB) One tablet daily Facility-Administered Medications as of 02/05/2024 - perflutren lipid microspheres 1.3 mL in NaCl (PF) 0.9% 10 mL injection (DEFINITY) - sodium chloride 0.9 % (flush) 10 mL (BD POSIFLUSH) Meds Comments as of 11/04/2018: 11/04/18 The medications are managed by this patient by: PATIENT and SPOUSE Rhea Emery Pharm-T Problem List As Of Date 02/03/2024 Noted Resolved Aortic valve disorder [I35.9] 10/09/2002 01/14/2020 Mixed hyperlipidemia [E78.2] 10/09/2002 History of rheumatic heart disease [Z86.79] 10/09/2002 Aortic valve replaced [Z95.2] 11/13/2005 Benign localized prostatic hyperplasia with low*2006 Postsurgical aortocoronary bypass status [Z95.1]2006 Abnormal involuntary movements [R25.8, R25.9] 12/16/2007 02/28/2012 Cervicalgia [M54.2] 10/22/2008 02/22/2011 Carotid stenosis, asymptomatic, bilateral [I65.*10/29/2008 Family history of colon cancer [Z80.0] 01/31/2010 07/03/2021 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/01/2013 Vitamin D deficiency [E55.9] 12/03/2013 B12 deficiency [E53.8] 10/18/2014 Nocturnal hypoxemia [G47.34] 07/26/2015 Sleep disorder [G47.9] 07/26/2015 Coronary 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quechan ballard*08/24/2015 Meniscus tear [S83.209A] 12/27/2015 Elevated blood sugar [R73.9] 06/19/2016 Seasonal allergies [J30.2] 12/17/2016 01/14/2020 Medicare annual wellness visit, subsequent [Z00*12/17/2016 Colon cancer screening [Z12.11] 12/17/2016 01/14/2020 Synovial cyst of right popliteal space [M71.21] 01/28/2017 History of DVT (deep vein thrombosis) [Z86.718] 06/19/2017 Allergic rhinitis [J30.9] 06/20/2018 Obesity, Class I, BMI 30-34.9 [E66.9] 08/26/2018 Stress hyperglycemia [R73.9] 10/29/2018 11/01/2018 Coagulopathy (HCC) [D68.9] 10/29/2018 10/30/2018 Essential hypertension [I10] 10/30/2018 Family history of malignant neoplasm of gastroi* 01/14/2020 Acute deep vein thrombosis (DVT) of distal vein*04/20/2019 01/14/2020 Tremor [R25.1] 12/11/2019 01/14/2020 Family history of Parkinson's disease [Z82.0] 12/11/2019 Stiffness of hand joint [M25.649] 12/31/2019 Swelling of both hands [M79. (more content not included)... Normal [facility] XR Chest PA and Lateralon IMPRESSION: Overall unremarkable exam with no acute radiographic abnormality. Doorshaker: PSCB Transcribe Date/Time: Feb 02 2024 10:25A Dictated by : MAGO RAINEY MD This examination was interpreted and the report reviewed and electronically signed by: MAGO RAINEY MD on Feb 02 2024 10:26AM [facility] DIVISION OF RADIOLOGY * * *Final Report* * * DATE OF EXAM: Jan 31 2024 8:17AM WOX [id number] - XR CHEST 2V FRONTAL/LAT / PROCEDURE REASON: multiple diagnoses * * * * Physician Interpretation * * * * EXAMINATION: CHEST RADIOGRAPH (2 VIEW FRONTAL & LATERAL) CLINICAL HISTORY: URI, acute X-ray of lung, abnormal MQ: XC2_6 EXAM DATE/TIME: 01/31/2024 8:17 AM COMPARISON: 12/14/2023. RESULT: Lines, tubes, and devices: None. Lungs and pleura: There has been resolution of the previously seen small left midlung opacity. No consolidation. No lung mass. No pleural effusion. No pneumothorax. 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 Bones and soft tissues: Unremarkable. DIVISION OF RADIOLOGY Provider, [facility] - 02/02/2024 * * *Final Report* * * DATE OF EXAM: Jan 31 2024 8:17AM WOX 5291 - XR CHEST 2V FRONTAL/LAT / PROCEDURE REASON: multiple diagnoses * * * * Physician Interpretation * * * * EXAMINATION: CHEST RADIOGRAPH (2 VIEW FRONTAL & LATERAL) CLINICAL HISTORY: URI, acute X-ray of lung, abnormal MQ: XC2_6 EXAM DATE/TIME: 01/31/2024 8:17 AM COMPARISON: 12/14/2023. RESULT: Lines, tubes, and devices: None. Lungs and pleura: There has been resolution of the previously seen small left midlung opacity. No consolidation. No lung mass. No pleural effusion. No pneumothorax. 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 Bones and soft tissues: Unremarkable. IMPRESSION IMPRESSION: Overall unremarkable exam with no acute radiographic abnormality. Doorshaker: PSCB Transcribe Date/Time: Feb 02 2024 10:25A Dictated by : MAGO RAINEY MD This examination was interpreted and the report reviewed and electronically signed by: MAGO RAINEY MD on Feb 02 2024 10:26AM EST [facility] XR Chest PA and LateralOrder ed By: Ccf Provider on 02-02-2024 [facility] 25(OH)D3 SerPl-mCncon 2023 25-hydroxyvitamin D3 [Mass/Vol] 56.2 ng/mL Normal 31.0-80.0 [facility] Comment on above: Order Comment: Speci men Type: BLOOD SPECIMENOrdering Facility: [facility] Address: [address] [place] [address] Result Comment: Clas sification of 25 [place] Vitamin D status: Deficiency/Insufficiency: < or = 30 ng/ml. Sufficiency/Optimal Levels: 31-80 ng/mL Toxicity: > 100 ng/mL. Test performed by chemiluminescent immunoassay. Performed By: #### 1 989-3 ####[facility] LABCLIA [id number] [place] [address] [place] CBC W Auto Differential pane l (Bld)on 01-31-2024 Basophils (Bld) [#/Vol] 0.04 10*3/uL Normal <0.11 [facility] Comment on above: Order Comment: Speci men Type: BLOOD SPECIMENOrdering Facility: [facility] Address: [address] [place] [address] Performed By: #### 5 7021-8 ####[facility] LABCLIA [id number] [place] [address] [place] Basophils/100 WBC (Bld) 0.6 % Normal [facility] Comment on above: Order Comment: Speci men Type: BLOOD SPECIMENOrdering Facility: [facility] Address: [address] [place] [address] Performed By: #### 5 7021-8 ####[facility] LABCLIA [id number] [place] [address] [place] Differential cell count method Nom (Bld) Auto Normal [facility] Comment on above: Order Comment: Speci men Type: BLOOD SPECIMENOrdering Facility: [facility] Address: [address] [place] [address] Performed By: #### 5 7021-8 ####[facility] LABCLIA [id number] [place] [address] [place] Eosinophils (Bld) [#/Vol] 0.40 10*3/uL Normal <0.46 [facility] Comment on above: Order Comment: Speci men Type: BLOOD SPECIMENOrdering Facility: [facility] Address: [address] [place] [address] Performed By: #### 5 7021-8 ####[facility] LABCLIA [id number] [place] [address] [place] Eosinophils/100 WBC (Bld) 5.6 % Normal [facility] Comment on above: Order Comment: Speci men Type: BLOOD SPECIMENOrdering Facility: [facility] Address: [address] [place] [address] Performed By: #### 5 7021-8 ####[facility] LABCLIA [id number] [place] [address] [place] Erythrocyte distribution width (RBC) [Ratio] 12.9 % Normal 11.5-15.0 [facility] Comment on above: Order Comment: Speci men Type: BLOOD SPECIMENOrdering Facility: [facility] Address: [address] [place] [address] Performed By: #### 5 7021-8 ####[facility] LABCLIA [id number] [place] [address] [place] Hematocrit (Bld) [Volume fraction] 44.9 % Normal 39.0-51.0 [facility] Comment on above: Order Comment: Speci men Type: BLOOD SPECIMENOrdering Facility: [facility] Address: [address] [place] [address] Performed By: #### 5 7021-8 ####[facility]CLIA [id number] [place] [address] [place] Hemoglobin (Bld) [Mass/Vol] 15.1 g/dL Normal 13.0-17.0 [facility] Comment on above: Order Comment: Speci men Type: BLOOD SPECIMENOrdering Facility: [facility] Address: [address] [place] [address] Performed By: #### 5 7021-8 ####[facility]CLIA [id number] [place] [address] [place] Immature granulocytes (Bld) [#/Vol] 10*3/uL Normal <0.10 [facility] Comment on above: Order Comment: Speci men Type: BLOOD SPECIMENOrdering Facility: [facility] Address: [address] [place] [address] Performed By: #### 5 7021-8 ####[facility] LABCLIA [id number] [place] [address] [place] Immature granulocytes/100 WBC (Bld) 0.3 % Normal [facility] Comment on above: Order Comment: Speci men Type: BLOOD SPECIMENOrdering Facility: [facility] Address: [address] [place] [address] Performed By: #### 5 7021-8 ####[facility] LABCLIA [id number] [place] [address] [place] Lymphocytes (Bld) [#/Vol] 3.12 10*3/uL Normal 1.00-4.00 [facility] Comment on above: Order Comment: Speci men Type: BLOOD SPECIMENOrdering Facility: [facility] Address: [address] [place] [address] Performed By: #### 5 7021-8 ####[facility] LABCLIA [id number] [place] [address] [place] Lymphocytes/100 WBC (Bld) 43.4 % Normal [facility] Comment on above: Order Comment: Speci men Type: BLOOD SPECIMENOrdering Facility: [facility] Address: [address] [place] [address] Performed By: #### 5 7021-8 ####[facility]CLIA [id number] [place] [address] [place] MCH (RBC) [Entitic mass] 32.3 pg Normal 26.0-34.0 [facility] Comment on above: Order Comment: Speci men Type: BLOOD SPECIMENOrdering Facility: [facility] Address: [address] [place] [address] Performed By: #### 5 7021-8 ####[facility] LABCLIA [id number] [place] [address] [place] MCHC (RBC) [Mass/Vol] 33.6 g/dL Normal 30.5-36.0 [facility] Comment on above: Order Comment: Speci men Type: BLOOD SPECIMENOrdering Facility: [facility] Address: [address] [place] [address] Performed By: #### 5 7021-8 ####[facility] LABCLIA [id number] [place] [address] [place] MCV (RBC) [Entitic vol] 96.1 fL Normal 80.0-100.0 [facility] Comment on above: Order Comment: Speci men Type: BLOOD SPECIMENOrdering Facility: [facility] Address: [address] [place] [address] Performed By: #### 5 7021-8 ####[facility] LABCLIA [id number] [place] [address] [place] Monocytes (Bld) [#/Vol] 0.68 10*3/uL Normal <0.87 [facility] Comment on above: Order Comment: Speci men Type: BLOOD SPECIMENOrdering Facility: [facility] Address: [address] [place] [address] Performed By: #### 5 7021-8 ####[facility] LABCLIA [id number] [place] [address] [place] Monocytes/100 WBC (Bld) 9.5 % Normal [facility] Comment on above: Order Comment: Speci men Type: BLOOD SPECIMENOrdering Facility: [facility] Address: [address] [place] [address] Performed By: #### 5 7021-8 ####[facility] LABCLIA [id number] [place] [id number] [place] Neutrophils (Bld) [#/Vol] 2.93 10*3/uL Normal 1.45-7.50 [facility] Comment on above: Order Comment: Speci men Type: BLOOD SPECIMENOrdering Facility: [facility] Address: [address] [place] [address] Performed By: #### 5 7021-8 ####[facility] LABCLIA [id number] [place] [address] [place] Neutrophils/100 WBC (Bld) 40.6 % Normal [facility] Comment on above: Order Comment: Speci men Type: BLOOD SPECIMENOrdering Facility: [facility] Address: [address] [place] [address] Performed By: #### 5 7021-8 ####[facility] LABCLIA [id number] [place] [address] [place] Nucleated RBC (Bld) [#/Vol] 10*3/uL Normal <0.01 [facility] Comment on above: Order Comment: Speci men Type: BLOOD SPECIMENOrdering Facility: [facility] Address: [address] [place] [address] Performed By: #### 5 7021-8 ####[facility] LABCLIA [id number] [place] [id number] [place] Nucleated RBC/100 WBC (Bld) [Ratio] 0.0 /100 WBC Normal [facility] Comment on above: Order Comment: Speci men Type: BLOOD SPECIMENOrdering Facility: [facility] Address: [address] [place] [address] Performed By: #### 5 7021-8 ####[facility] LABCLIA [id number] [place] [address] [place] Platelet mean volume (Bld) [Entitic vol] 12.0 fL Normal 9.0-12.7 [facility] Comment on above: Order Comment: Speci men Type: BLOOD SPECIMENOrdering Facility: [facility] Address: [address] [place] [address] Performed By: #### 5 7021-8 ####[facility] LABIA [id number] [place] [address] [place] Platelets (Bld) [#/Vol] 157 10*3/uL Normal 150-400 [facility] Comment on above: Order Comment: Speci men Type: BLOOD SPECIMENOrdering Facility: [facility] Address: [address] [place] [address] Performed By: #### 5 7021-8 ####[facility] LABIA [id number] [place] [address] [place] RBC (Bld) [#/Vol] 4.67 10*6/uL Normal 4.20-6.00 [facility] Comment on above: Order Comment: Speci men Type: BLOOD SPECIMENOrdering Facility: [facility] Address: [address] [place] [address] Performed By: #### 5 7021-8 ####[facility] LABIA [id number] [place] [address] [place] WBC (Bld) [#/Vol] 7.19 10*3/uL Normal 3.70-11.00 [facility] Comment on above: Order Comment: Speci men Type: BLOOD SPECIMENOrdering Facility: [facility] Address: [address] [place] [address] Performed By: #### 5 7021-8 ####[facility] LABIA [id number] [place] [address] [place] Comprehensive metabolic 2000 panelon 01-31-2024 Albumin [Mass/Vol] 4.2 g/dL Normal 3.9-4.9 [facility] Comment on above: Order Comment: Speci men Type: BLOOD SPECIMENOrdering Facility: [facility] Address: [address] [place] [address] Performed By: #### 3 016-3, 9, 40767-1, LIPNF ####[facility] LABCLIA [id number] [place] [address] [place] ALP [Catalytic activity/Vol] 97 U/L Normal 38-113 [facility] Comment on above: Order Comment: Speci men Type: BLOOD SPECIMENOrdering Facility: [facility] Address: [address] [place] [address] Performed By: #### 3 016-3, 2132-04, , LIPNF ####[facility] LABCLIA [id number] [place] [address] [place] ALT [Catalytic activity/Vol] 41 U/L Normal 10-54 [facility] Comment on above: Order Comment: Speci men Type: BLOOD SPECIMENOrdering Facility: [facility] Address: [address] [place] [address] Performed By: #### 3 016-3, 2132-04, , LIPNF ####[facility] LABCLIA [id number] [place] [address] [place] Anion gap [Moles/Vol] 11 mmol/L Normal 8-15 [facility] Comment on above: Order Comment: Speci men Type: BLOOD SPECIMENOrdering Facility: [facility] Address: [address] [place] [address] Performed By: #### 3 016-3, 9, , LIPNF ####[facility] LABCLIA [id number] [place] [address] [place] AST [Catalytic activity/Vol] 34 U/L Normal 14-40 [facility] Comment on above: Order Comment: Speci men Type: BLOOD SPECIMENOrdering Facility: [facility] Address: [address] [place] [address] Performed By: #### 3 016-3, 2132-04, , LIPNF ####[facility] LABCLIA [id number] [place] [address] [place] Bilirubin [Mass/Vol] 0.6 mg/dL Normal 0.2-1.3 [facility] Comment on above: Order Comment: Speci men Type: BLOOD SPECIMENOrdering Facility: [facility] Address: [address] [place] [address] Performed By: #### 3 016-3, 2132-04, , LIPNF ####[facility] LABCLIA [id number] [place] [address] [place] Calcium [Mass/Vol] 9.4 mg/dL Normal 8.5-10.2 [facility] Comment on above: Order Comment: Speci men Type: BLOOD SPECIMENOrdering Facility: [facility] Address: [address] [place] [address] Performed By: #### 3 016-3, 2132-04, , LIPNF ####[facility] LABCLIA [id number] [place] [address] [place] Chloride [Moles/Vol] 105 mmol/L Normal 98-107 [facility] Comment on above: Order Comment: Speci men Type: BLOOD SPECIMENOrdering Facility: [facility] Address: [address] [place] [address] Performed By: #### 3 016-3, 2132-04, , LIPNF ####[facility] LABCLIA [id number] [place] [id number] [place] CO2 [Moles/Vol] 24 mmol/L Normal 22-30 [facility] Comment on above: Order Comment: Speci men Type: BLOOD SPECIMENOrdering Facility: [facility] Address: [address] [place] [address] Performed By: #### 3 016-3, 2132-04, , LIPNF ####[facility] LABCLIA [id number] [place] [address] [place] Creatinine [Mass/Vol] 0.77 mg/dL Normal 0.73-1.22 [facility] Comment on above: Order Comment: Speci men Type: BLOOD SPECIMENOrdering Facility: [facility] Address: [address] [place] [address] Performed By: #### 3 016-3, 2132-04, , LIPNF ####[facility] LABCLIA [id number] [place] [address] [place] Creatinine and Glomerular filtration rate.predicted panel (S/P/Bld) 89 mL/min/1.73m??? Normal >=60 [facility] Comment on above: Order Comment: Speci men Type: BLOOD SPECIMENOrdering Facility: [facility] Address: [address] [place] [address] Result Comment: Janae mated Glomerular Filtration Rate (eGFR) is calculated using the 2020 CKD-EPI creatinine equation. This equation utilizes serum creatinine, sex, and age as parameters. The creatinine assay has traceable calibration to isotope dilution-mass spectrometry. Refer to KDIGO guidelines for clinical interpretation. In patients with unstable renal function, e.g. those with acute kidney injury, the eGFR may not accurately reflect actual GFR. Performed By: #### 3 016-3, 2132-04, , LIPNF ####[facility] LABCLIA [id number] [place] [address] [place] Glucose [Mass/Vol] 99 mg/dL Normal 74-99 [facility] Comment on above: Order Comment: Speci men Type: BLOOD SPECIMENOrdering Facility: [facility] Address: [address] [place] [address] Result Comment: The [place] [employer] (ADA) provides guidance for cutoff values for fasting glucose and random glucose. The ADA defines fasting as no caloric intake for at least 8 hours. Fasting plasma glucose results between 100 to 125 mg/dL indicate increased risk for diabetes (prediabetes). Fasting plasma glucose results greater than or equal to 126 mg/dL meet the criteria for diagnosis of diabetes. In the absence of unequivocal hyperglycemia, results should be confirmed by repeat testing. In a patient with classic symptoms of hyperglycemia or hyperglycemic crisis, random plasma glucose results greater than or equal to 200 mg/dL meet the criteria for diagnosis of diabetes. Reference: Standards of Medical Care in Diabetes 2016, [place] [employer]. Diabetes Care. 2016.39(Suppl 1). Performed By: #### 3 016-3, 2132-04, , LIPNF ####[facility] LABCLIA [id number] [place] [address] [place] Potassium [Moles/Vol] 4.3 mmol/L Normal 3.7-5.1 [facility] Comment on above: Order Comment: Speci men Type: BLOOD SPECIMENOrdering Facility: [facility] Address: [address] [place] [address] Performed By: #### 3 016-3, 2132-04, , LIPNF ####[facility] LABCLIA [id number] [place] [address] [place] Protein [Mass/Vol] 6.9 g/dL Normal 6.3-8.0 [facility] Comment on above: Order Comment: Speci men Type: BLOOD SPECIMENOrdering Facility: [facility] Address: [address] [place] [address] Performed By: #### 3 016-3, 2132-04, , LIPNF ####[facility] LABCLIA [id number] [place] [id number] [place] Sodium [Moles/Vol] 140 mmol/L Normal 136-144 [facility] Comment on above: Order Comment: Speci men Type: BLOOD SPECIMENOrdering Facility: [facility] [facility] Address: [address] [place] [address] Performed By: #### 3 016-3, 2132-04, , LIPNF ####[facility] LABCLIA [id number] [address] [address] [place] Urea nitrogen [Mass/Vol] 23 mg/dL Normal 9-24 [facility] Comment on above: Order Comment: Murphyi men Type: BLOOD SPECIMENOrdering Facility: [facility] Address: [address] [place] [address] Performed By: #### 3 016-3, 2132-04, , LIPNF ####[facility] LABCLIA [id number] [place] [address] [place] HbA1c (Bld)on 01-31-2024 Average glucose Estimated from glycated hemoglobin (Bld) [Mass/Vol] 120 mg/dL Normal [facility] Comment on above: Order Comment: [facility] Type: BLOOD SPECIMENOrdering Facility: [facility] Address: [address] [place] [address] Result Comment: eAG: (Estimated average glucose) is a calculated value from HgbA1c and is brewery representative of the average blood glucose level in the last 2-3 month period. Performed By: #### 5 5454-3 ####[facility] LABIA [id number] [place] [address] [place] HbA1c (Bld) [Mass fraction] 5.8 % High 4.3-5.6 [facility] Comment on above: [facility]: [facility] Type: BLOOD SPECIMENOrdering Facility: [facility] Address: [address] [place] [address] Result Comment: Amer ican Diabetes Association guidelines indicate that patients with HgbA1c in the range 5.7-6.4% are at increased risk for development of diabetes, and intervention by lifestyle modification may be beneficial. HgbA1c greater or equal to 6.5% is considered diagnostic of diabetes. Performed By: #### 5 5454-3 ####[facility] LABCLIA [id number] [address] [place] LIPID PANEL, NONFASTINGon Cholesterol [Mass/Vol] 106 mg/dL Normal <200 [facility] Comment on above: Order Comment: Speci men Type: BLOOD SPECIMENOrdering Facility: [facility] Address: [address] [place] [address] Result Comment: <200 mg/dL, Desirable 200-239 mg/dL, Borderline high >239 mg/dL, High Performed By: #### 3 016-3, 2132-04, , LIPNF ####[facility] LABCLIA [id number] [address] [place] HDL CHOLESTEROL, NF 45 mg/dL Normal >39 [facility] Comment on above: Order Comment: Speci men Type: BLOOD SPECIMENOrdering Facility: [facility] Address: [address] [place] [address] Result Comment: 40-5 9 mg/dL, Acceptable >59 mg/dL, High: Negative risk factor for coronary heart disease <40 mg/dL, Low: Positive risk factor for coronary heart disease Performed By: #### 3 016-3, 2132-04, , LIPNF ####[facility] LABCLIA [id number] [address] [place] LDL CHOLESTEROL, NF 48 mg/dL Normal <100 [facility] Comment on above: Order Comment: Speci men Type: BLOOD SPECIMENOrdering Facility: [facility] Address: [address] [place] [address] Result Comment: <100 mg/dL, Optimal 100-129 mg/dL, Near optimal/above optimal 130-159 mg/dL, Borderline high 160-189 mg/dL, High >189 mg/dL, Very high Secondary prevention optimal LDL Cholesterol levels are recommended to be < 70 mg/dL Performed By: #### 3 016-3, 2132-04, 95613-4, LIPNF ####[facility] LABCLIA [id number] [place] [address] [place] LDL/HDL RATIO, NF 1.07 mg/dL Normal <2.54 [facility] Comment on above: Order Comment: Speci men Type: BLOOD SPECIMENOrdering Facility: [facility] Address: [address] [place] [address] Result Comment: Refe rence: 1. National Cholesterol Education Program ATP III Guideline At-A-Glance Quick Desk Reference: National Heart, Lung, and Blood Vader. National Institutes of Health. 2001: NIH Publication No. 01-3305. 2. An International Atherosclerosis Society position paper: global recommendations for the management of dyslipidemia: executive summary, Atherosclerosis. 2014: 232(2):410-413. Performed By: #### 3 016-3, 2132-04, 01016-2, LIPNF ####[facility] LABCLIA [id number] [place] [address] [place] NON HDL CHOL, NF 61 mg/dL Normal <130 [facility] Comment on above: Order Comment: Speci men Type: BLOOD SPECIMENOrdering Facility: [facility] Address: [address] [place] [address] Result Comment: <130 mg/dL, Optimal 130-159 mg/dL, Near optimal/above optimal 160-189 mg/dL, Borderline high 190-219 mg/dL, High >219 mg/dL, Very high Secondary prevention optimal non HDL Cholesterol levels are recommended to be <100 mg/dL Performed By: #### 3 016-3, 2132-04, 12850-0, LIPNF ####[facility] LABCLIA [id number] [address] [place] T CHOL/HDL RATIO NF 2.36 mg/dL Normal <5.10 [facility] Comment on above: Order Comment: Speci men Type: BLOOD SPECIMENOrdering Facility: [facility] Address: [address] [place] [address] Performed By: #### 3 016-3, 2132-04, , LIPNF ####[facility] LABCLIA [id number] [place] [address] [place] TRIGLYCERIDES, NF 63 mg/dL Normal <150 [facility] Comment on above: Order Comment: Speci men Type: BLOOD SPECIMENOrdering Facility: [facility] Address: [address] [place] [address] Result Comment: <150 mg/dL, Normal 150-199 mg/dL, Borderline high 200-499 mg/dL, High >499 mg/dL, Very high Performed By: #### 3 016-3, 2132-04, , LIPNF ####[facility] LABIA [id number] [place] [address] [place] VLDL CHOLESTEROL, NF 13 mg/dL Normal <30 [facility] Comment on above: Order Comment: Speci men Type: BLOOD SPECIMENOrdering Facility: [facility] Address: [address] [place] [address] Performed By: #### 3 016-3, 2132-04, , LIPNF ####[facility] LABCLIA [id number] [place] [address] [place] TSH SerPl-aCncon 01-31-2024 TSH Qn 2.670 m[IU]/L Normal 0.270-4.200 [facility] Comment on above: Order Comment: Speci men Type: BLOOD SPECIMENOrdering Facility: [facility] Address: [address] [place] [address] Performed By: #### 3 016-3, 2132-04, , LIPNF ####[facility] LABCLIA [id number] [place] [address] [place] Urinalysis complete panel (U )on 01-31-2024 Bacteria LM.HPF (Urine sed) [#/Area] Negative Normal Negative [facility] Comment on above: Order Comment: Speci men Type: URINE SPECIMEN Ordering Facility: [facility] Address: [address] [place] [address] Performed By: #### 2 4356-8 #### [facility] CLIA [id number] [address] [place] [address] [place] Bilirubin Ql (U) Negative Normal Negative [facility] Comment on above: Order Comment: Speci men Type: URINE SPECIMEN Ordering Facility: [facility] Address: [address] [place] [address] Performed By: #### 2 4356-8 #### [facility] CLIA [id number] [address] [place] [address] [place] Clarity (Unsp spec) Clear Normal Clear [facility] Comment on above: Order Comment: Speci men Type: URINE SPECIMEN Ordering Facility: [facility] Address: [address] [place] [address] Performed By: #### 2 4356-8 #### [facility] CLIA [id number] [address] [place] [address] [place] Color (U) Yellow Normal Yellow [facility] Comment on above: Order Comment: Speci men Type: URINE SPECIMEN Ordering Facility: [facility] Address: [address] [place] [address] Performed By: #### 2 4356-8 #### [facility] CLIA [id number] [address] [place] [address] [place] Epithelial cells LM.HPF (Urine sed) [#/Area] None Seen Normal [facility] Comment on above: Order Comment: Speci men Type: URINE SPECIMEN Ordering Facility: [facility] Address: [address] [place] [address] Performed By: #### 2 4356-8 #### [facility] CLIA [id number] [address] [place] [address] [place] Glucose Test strip (U) [Mass/Vol] Negative Normal Negative [facility] Comment on above: Order Comment: Speci men Type: URINE SPECIMEN Ordering Facility: [facility] Address: [address] [place] [address] Performed By: #### 2 4356-8 #### [facility] CLIA [id number] [address] [place] [address] [place] Hemoglobin Ql (U) Negative Normal Negative [facility] Comment on above: Order Comment: Speci men Type: URINE SPECIMEN Ordering Facility: [facility] Address: [address] [place] [address] Performed By: #### 2 4356-8 #### [facility] CLIA [id number] [address] [place] [address] [place] Hyaline casts (Urine sed) [#/Area] 0 /[LPF] Normal 0 /LPF [facility] Comment on above: Order Comment: Speci men Type: URINE SPECIMEN Ordering Facility: [facility] Address: [address] [place] [address] Performed By: #### 2 4356-8 #### [facility] CLIA [id number] [address] [place] [address] [place] Ketones Ql (U) Negative Normal Negative [facility] Comment on above: Order Comment: Speci men Type: URINE SPECIMEN Ordering Facility: [facility] Address: [address] [place] [address] Performed By: #### 2 4356-8 #### [facility] CLIA [id number] [address] [place] [address] [place] Leukocyte esterase Test strip Ql (U) Negative Normal Negative [facility] Comment on above: Order Comment: Speci men Type: URINE SPECIMEN Ordering Facility: [facility] Address: [address] [place] [address] Performed By: #### 2 4356-8 #### [facility] CLIA [id number] [address] [place] [address] [place] Nitrite Ql (U) Negative Normal Negative [facility] Comment on above: Order Comment: Speci men Type: URINE SPECIMEN Ordering Facility: [facility] Address: [address] [place] [address] Performed By: #### 2 4356-8 #### [facility] CLIA [id number] [address] [place] [address] [place] pH (U) 6.0 [pH] Normal <8.5 [facility] Comment on above: Order Comment: Speci men Type: URINE SPECIMEN Ordering Facility: [facility] Address: [address] [place] [address] Performed By: #### 2 4356-8 #### [facility] CLIA [id number] [address] [place] [address] [place] Protein (U) [Mass/Vol] Negative Normal Negative [facility] Comment on above: Order Comment: Speci men Type: URINE SPECIMEN Ordering Facility: [facility] Address: [address] [place] [address] Performed By: #### 2 4356-8 #### [facility] CLIA [id number] [address] [place] [address] [place] RBC LM.HPF (Urine sed) [#/Area] 0-2 /HPF Normal 0-2 /HPF [facility] Comment on above: Order Comment: Speci men Type: URINE SPECIMEN Ordering Facility: [facility] Address: [address] [place] [address] Performed By: #### 2 4356-8 #### [facility] CLIA [id number] [address] [place] [address] [place] Specific gravity (U) [Rel density] 1.020 Normal 1.005-1.030 [facility] Comment on above: Order Comment: Speci men Type: URINE SPECIMEN Ordering Facility: [facility] Address: [address] [place] [address] Performed By: #### 2 4356-8 #### [facility] CLIA [id number] [address] [place] [address] [place] Urobilinogen Ql (U) 0.2 EU/dL Normal 0.2-1.0 EU/dL [facility] Comment on above: Order Comment: Speci men Type: URINE SPECIMEN Ordering Facility: [facility] Address: [address] [place] [address] Performed By: #### 2 4356-8 #### [facility] CLIA [id number] [address] [place] [address] [place] WBC LM.HPF (Urine sed) [#/Area] 0-5 /HPF Normal 0-5 /HPF [facility] Comment on above: Order Comment: Speci men Type: URINE SPECIMEN Ordering Facility: [facility] Address: [address] [place] [address] Performed By: #### 2 4356-8 #### [facility] CLIA [id number] [address] [place] [address] [place] Vit B12 SerPl-mCncon 024 Cobalamin (Vitamin B12) [Mass/Vol] 414 pg/mL Normal 232-1245 [facility] Comment on above: Order Comment: Speci men Type: BLOOD SPECIMENOrdering Facility: [facility] Address: [address] [place] [address] Performed By: #### 3 016-3, 2132-9, 85388-5, LIPNF ####[facility] LABCLIA [id number] [place] [address] [place] XR CHEST 2V FRONTAL/LATon XR CHEST 2V FRONTAL/LAT * * *Final Report* * * DATE OF EXAM: Jan 31 2024 8:17AM WOX [id number] - XR CHEST 2V FRONTAL/LAT / PROCEDURE REASON: multiple diagnoses * * * * Physician Interpretation * * * * EXAMINATION: CHEST RADIOGRAPH (2 VIEW FRONTAL and LATERAL) CLINICAL HISTORY: URI, acute X-ray of lung, abnormal MQ: [id number] EXAM DATE/TIME: 01/31/2024 8:17 AM COMPARISON: 12/14/2023. RESULT: Lines, tubes, and devices: None. Lungs and pleura: There has been resolution of the previously seen small left midlung opacity. No consolidation. No lung mass. No pleural effusion. No pneumothorax. 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 Bones and soft tissues: Unremarkable. IMPRESSION: Overall unremarkable exam with no acute radiographic abnormality. Doorshaker: PSCB Transcribe Date/Time: Feb 02 2024 10:25A Dictated by : MAGO RAINEY MD This examination was interpreted and the report reviewed and electronically signed by: MAGO RAINEY MD on Feb 02 2024 10:26AM EST [id number] N Normal [facility] XR Chest PA and Lateralon Radiology Study observation (narrative) [facility] .Auto Diffon 01-27-2024 Basophil, Absolute 0.0 10 3/mcL Normal 0.0-0.2 [facility] Comment on above: Performed By: #### A JAMIEELLA, CBC, GFR, ADIFF, ABSGEL, BMP, ALB #### [address] [address] Basophils/100 WBC (Bld) 0.4 % Normal 0.0-2.5 [facility] ([place] Comment on above: Performed By: #### A BOGEL ANEU, CBC, GFR, ADIFF, ABSGEL, BMP, ALB #### [address] [address] Eosinophil, Absolute 0.4 10 3/mcL Normal 0.0-0.4 [facility] ([place]) Comment on above: Performed By: #### A BOGEL ANEU, CBC, GFR, ADIFF, ABSGEL, BMP, ALB #### [address] [address] Eosinophils/100 WBC (Bld) 5.5 % Normal 0.0-7.0 [facility] [place] Comment on above: Performed By: #### A BOGEL, ANEU, CBC, GFR, ADIFF, ABSGEL, BMP, ALB #### [address] [address] Lymphocyte, Absolute 2.7 10 3/mcL Normal 0.8-3.9 [facility] ([place] Comment on above: Performed By: #### A BOGEL, ANEU, CBC, GFR, ADIFF, ABSGEL, BMP, ALB #### [address] [address] Lymphocytes/100 WBC (Bld) 40.8 % Normal 10.0-50.0 [facility] ([place] Comment on above: Performed By: #### A BOGEL, ANEU, CBC, GFR, ADIFF, ABSGEL, BMP, ALB #### [address] [address] Monocyte, Absolute 0.7 10 3/mcL Normal 0.2-1.0 [facility] [place] Comment on above: Performed By: #### A BOGEL, ANEU, CBC, GFR, ADIFF, ABSGEL, BMP, ALB #### [address] [address] Monocytes/100 WBC (Bld) 10.3 % Normal 1.7-13.0 [facility] ([place] Comment on above: Performed By: #### A BOGEL, ANEU, CBC, GFR, ADIFF, ABSGEL, BMP, ALB #### [address] [address] Neutrophils/100 WBC (Bld) 43.0 % Normal 37.0-80.0 [facility] [place] Comment on above: Performed By: #### A BOGEL, ANEU, CBC, GFR, ADIFF, ABSGEL, BMP, ALB #### [address] [address] .GFRon 01-27-2024 GFR 121 ml/min/1.73sqm Normal [facility] ([place] Comment on above: Result Comment: GFR Population mean for , Non- Americans Ages 20-29 = 116 mL/min/1.73 sq.m. Ages 30-39 = 107 mL/min/1.73 sq.m. Ages 40-49 = 99 mL/min/1.73 sq.m. Ages 50-59 = 93 mL/min/1.73 sq.m. Ages 60-69 = 85 mL/min/1.73 sq.m. Ages 70+ = 75 mL/min/1.73 sq.m. Chronic Kidney Disease: Less than 60 mL/min/1.73 square meters End Stage Renal Disease: Less than 15 mL/min/1.73 square meters Performed By: #### A BOGEL, ANEU, CBC, GFR, ADIFF, ABSGEL, BMP, ALB #### [address] [address] GFR Non- 100 ml/min/1.73sqm Normal [facility] ([place] Comment on above: Result Comment: GFR Population mean for , Non- Americans Ages 20-29 = 116 mL/min/1.73 sq.m. Ages 30-39 = 107 mL/min/1.73 sq.m. Ages 40-49 = 99 mL/min/1.73 sq.m. Ages 50-59 = 93 mL/min/1.73 sq.m. Ages 60-69 = 85 mL/min/1.73 sq.m. Ages 70+ = 75 mL/min/1.73 sq.m. Chronic Kidney Disease: Less than 60 mL/min/1.73 square meters End Stage Renal Disease: Less than 15 mL/min/1.73 square meters Performed By: #### A BOGEL, ANEU, CBC, GFR, ADIFF, ABSGEL, BMP, ALB #### [address] [address] .NEUABSon 01-27-2024 Neutrophil, Absolute 2.9 10 3/mcL Normal 2.9-6.2 [facility] ([place] Comment on above: Performed By: #### A BOGEL, ANEU, CBC, GFR, ADIFF, ABSGEL, BMP, ALB #### [address] [address] ABO/Rh (Gel)on 01-27-2024 ABO/Rh Interp Positive Invalid Interpretation Code [facility] ([place] Comment on above: Order Comment: SURG PEPITO 7/16 -AC Performed By: #### A BOGEL, ANEU, CBC, GFR, ADIFF, ABSGEL, BMP, ALB #### [address] [address] ABS (Gel)on 01-27-2024 ABSC Interp (Gel) Negative Normal [facility] ([place] Comment on above: Order Comment: SURG PEPITO 7/16 -AC Performed By: #### A BOGEL, ANEU, CBC, GFR, ADIFF, ABSGEL, BMP, ALB #### [address] [address] ALBon 01-27-2024 Albumin Level 3.9 G/dL Normal 3.4-4.8 [facility] ([place] Comment on above: Performed By: #### A JAMIEEL, ANEU, CBC, GFR, ADIFF, ABSGEL, BMP, ALB #### [address] [address] BMPon 01-27-2024 BUN/Creatinine Ratio 28 ratio High 7-27 [facility] [place] Comment on above: Performed By: #### A BOGEL, ANEU, CBC, GFR, ADIFF, ABSGEL, BMP, ALB #### [address] [address] Calcium [Mass/Vol] 8.8 mg/dL Normal 8.4-10.2 [facility] ([place]) Comment on above: Performed By: #### A BOGEL, ANEU, CBC, GFR, ADIFF, ABSGEL, BMP, ALB #### [address] [address] Chloride [Moles/Vol] 104 mmol/L Normal 98-107 [facility] [place] Comment on above: Performed By: #### A BOGEL, ANEU, CBC, GFR, ADIFF, ABSGEL, BMP, ALB #### [address] [address] CO2 [Moles/Vol] 30 mmol/L Normal 23-31 [facility] ([place] Comment on above: Performed By: #### A BOGEL, ANEU, CBC, GFR, ADIFF, ABSGEL, BMP, ALB #### [address] [address] Creatinine [Mass/Vol] 0.75 mg/dL Normal 0.70-1.30 [facility] [place] Comment on above: Performed By: #### A BOGEL, ANEU, CBC, GFR, ADIFF, ABSGEL, BMP, ALB #### [address] [address] Electrolyte Balance 7.0 mEq/L Normal 4.0-15.0 [facility] ([place]) Comment on above: Performed By: #### A BOGEL, ANEU, CBC, GFR, ADIFF, ABSGEL, BMP, ALB #### [address] [address] Glucose [Mass/Vol] 113 mg/dL High 83-110 [facility] ([place] Comment on above: Performed By: #### A BOGEL, ANEU, CBC, GFR, ADIFF, ABSGEL, BMP, ALB #### [address] [address] Potassium [Moles/Vol] 4.4 mmol/L Normal 3.5-5.1 [facility] [place] Comment on above: Performed By: #### A BOGEL, ANEU, CBC, GFR, ADIFF, ABSGEL, BMP, ALB #### [address] [address] Sodium [Moles/Vol] 141 mmol/L Normal 136-145 [facility] ([place] Comment on above: Performed By: #### A BOGEL, ANEU, CBC, GFR, ADIFF, ABSGEL, BMP, ALB #### [address] [address] Urea nitrogen [Mass/Vol] 21 mg/dL High 7-18 [facility] ([place] Comment on above: Performed By: #### A BOGEL, ANEU, CBC, GFR, ADIFF, ABSGEL, BMP, ALB #### [address] [address] CBCon 01-27-2024 Erythrocyte distribution width (RBC) [Ratio] 13.8 % Normal 11.5-14.5 [facility] ([place] Comment on above: Order Comment: Pre-A dmission Testing Performed By: #### A BOGEL, ANEU, CBC, GFR, ADIFF, ABSGEL, BMP, ALB #### [place] [address] Hematocrit (Bld) [Volume fraction] 43.2 % Normal 42.0-52.0 [facility] ([place] Comment on above: Order Comment: Pre-A dmission Testing Performed By: #### A BOGEL, ANEU, CBC, GFR, ADIFF, ABSGEL, BMP, ALB #### [place] [address] Hgb 15.2 G/dL Normal 14.0-18.0 [facility] ([place] Comment on above: Order Comment: Pre-A dmission Testing Performed By: #### A BOGEL, ANEU, CBC, GFR, ADIFF, ABSGEL, BMP, ALB #### [address] [address] MCH (RBC) [Entitic mass] 33.8 pg High 27.0-31.2 [facility] ([place] Comment on above: Order Comment: Pre-A dmission Testing Performed By: #### A BOGEL, ANEU, CBC, GFR, ADIFF, ABSGEL, BMP, ALB #### [place] [address] MCHC 35.1 G/dL Normal 31.8-35.4 [facility] ([place] Comment on above: Order Comment: Pre-A dmission Testing Performed By: #### A BOGEL, ANEU, CBC, GFR, ADIFF, ABSGEL, BMP, ALB #### [address] [address] MCV (RBC) [Entitic vol] 96.3 fL High 80.0-94.0 [facility] ([place] Comment on above: Order Comment: Pre-A dmission Testing Performed By: #### A BOGEL, ANEU, CBC, GFR, ADIFF, ABSGEL, BMP, ALB #### [address] [address] Platelet 147 10 3/mcL Normal 130-400 [facility] ([place] Comment on above: Order Comment: Pre-A dmission Testing Performed By: #### A BOGEL, ANEU, CBC, GFR, ADIFF, ABSGEL, BMP, ALB #### [address] [address] Platelet mean volume (Bld) [Entitic vol] 10.2 fL Normal 7.4-10.4 [facility] ([place] Comment on above: Order Comment: Pre-A dmission Testing Performed By: #### A BOGEL, ANEU, CBC, GFR, ADIFF, ABSGEL, BMP, ALB #### [address] [address] RBC 4.49 10 6/mcL Normal 4.04-6.13 [facility] ([place] Comment on above: Order Comment: Pre-A dmission Testing Performed By: #### A BOGEL, ANEU, CBC, GFR, ADIFF, ABSGEL, BMP, ALB #### [address] [address] WBC 6.7 10 3/mcL Normal 4.6-10.8 [facility] ([place] Comment on above: Order Comment: Pre-A dmission Testing Performed By: #### A BOGEL, ANEU, CBC, GFR, ADIFF, ABSGEL, BMP, ALB #### [address] [address] [address] KNEE W/O CONTRAST LEFTon 01-27-2024 CT KNEE W/O CONTRAST LEFT ORIGINAL EXAMINATION: CT OF THE LEFT KNEE WITHOUT CONTRAST 01/27/2024 1:20 pm TECHNIQUE: CT of the left knee was performed without the administration of intravenous contrast. Multiplanar reformatted images are provided for review. Automated exposure control, iterative reconstruction, and/or weight based adjustment of the mA/kV was utilized to reduce the radiation dose to as low as reasonably achievable. COMPARISON: None. HISTORY ORDERING SYSTEM PROVIDED HISTORY: Reason for Exam: PRIMARY OSTEOARTHRITIS LEFT KNEE FINDINGS: Survey images of the left hip: Degenerative changes. No fracture or aggressive bony lesion. Vascular calcifications noted. Left knee: Tricompartmental degenerative changes are most advanced in the medial tibiofemoral and patellofemoral compartments. A small joint effusion is identified. Survey images left ankle: No aggressive bony lesion. IMPRESSION: Tricompartmental degenerative changes of the left knee. Small joint effusion. Interpreted by: Shorty Loredo MD Preliminary Report By: Shorty Loredo MD Electronically signed By Shorty Loredo MD Dictated Date: 01/27/2024 1:33:01 PM Prelim Date: 01/27/2024 1:37:20 PM Sign Date: 01/27/2024 1:37:20 PM Ordering Provider: DEAN Rivas [facility] ([place]) LABORATORYOrdered By: Reg Heck on 01-27-2024 ABO and Rh group Nom (Bld) Blood group A Rh(D) positive Invalid Interpretation Code AO BB Auto SS Blood group antibody screen Ql Negative ABSC (01/27/24 11:50 AM) Normal AO BB Auto SS LABORATORYOrdered By: SYSTEM SYSTEM on 01-27-2024 Albumin BCP dye [Mass/Vol] 3.9 G/dL Normal 3.4 - 4.8 G/dL AO ADM SS Basophil, Absolute 0.0 103/mcL Normal 0.0 - 0.2 10^3/mcL AO Workflow SS Basophils/100 WBC (Bld) 0.4 % Normal 0.0 - 2.5 % AO Workflow SS Calcium [Mass/Vol] 8.8 mg/dL Normal 8.4 - 10. 2 mg/dL AO ADM SS Chloride [Moles/Vol] 104 mmol/L Normal 98 - 10 7 mmol/L AO ADM SS CO2 [Moles/Vol] 30 mmol/L Normal 23 - 31 mmol/L AO ADM SS Creatinine [Mass/Vol] 0.75 mg/dL Normal 0.70 - 1.30 mg/dL AO ADM SS Electrolyte Balance 7.0 mEq/L Normal 4.0 - 15 .0 mEq/L AO ADM SS Eosinophil, Absolute 0.4 103/mcL Normal 0.0 - 0 .4 10^3/mcL AO Workflow SS Eosinophils/100 WBC (Bld) 5.5 % Normal 0.0 - 7.0 % AO Workflow SS Erythrocyte distribution width (RBC) [Ratio] 13.8 % Normal 11.5 - 14.5 % AO Workflow SS GFR/1.73 sq M.predicted among blacks MDRD (S/P/Bld) [Vol rate/Area] 121 ml/min/1.73sqm Invalid Interpretation Code AO Chemistry S Comment on above: Interpretive Data: GFR Population mean for , Non- Americans Ages 20-29 = 116 mL/min/1.73 sq.m. Ages 30-39 = 107 mL/min/1.73 sq.m. Ages 40-49 = 99 mL/min/1.73 sq.m. Ages 50-59 = 93 mL/min/1.73 sq.m. Ages 60-69 = 85 mL/min/1.73 sq.m. Ages 70+ = 75 mL/min/1.73 sq.m. Chronic Kidney Disease: Less than 60 mL/min/1.73 square meters End Stage Renal Disease: Less than 15 mL/min/1.73 square meters GFR/1.73 sq M.predicted among non-blacks MDRD (S/P/Bld) [Vol rate/Area] 100 ml/min/1.73sqm Invalid Interpretation Code AO Chemistry S Comment on above: Interpretive Data: GFR Population mean for , Non- Americans Ages 20-29 = 116 mL/min/1.73 sq.m. Ages 30-39 = 107 mL/min/1.73 sq.m. Ages 40-49 = 99 mL/min/1.73 sq.m. Ages 50-59 = 93 mL/min/1.73 sq.m. Ages 60-69 = 85 mL/min/1.73 sq.m. Ages 70+ = 75 mL/min/1.73 sq.m. Chronic Kidney Disease: Less than 60 mL/min/1.73 square meters End Stage Renal Disease: Less than 15 mL/min/1.73 square meters Glucose [Mass/Vol] 113 mg/dL High 83 - 110 mg/dL AO ADM SS Hematocrit (Bld) [Volume fraction] 43.2 % Normal 42.0 - 52.0 % AO Workflow SS Hemoglobin (Bld) [Mass/Vol] 15.2 G/dL Normal 14.0 - 18.0 G/dL AO Workflow SS Lymphocyte, Absolute 2.7 103/mcL Normal 0.8 - 3 .9 10^3/mcL AO Workflow SS Lymphocytes/100 WBC (Bld) 40.8 % Normal 10.0 - 50.0 % AO Workflow SS MCH (RBC) [Entitic mass] 33.8 pg High 27.0 - 31.2 pg AO Workflow SS MCHC 35.1 G/dL Normal 31.8 - 35.4 G/dL AO Workflow SS MCV (RBC) [Entitic vol] 96.3 fL High 80.0 - 94.0 fL AO Workflow SS Monocyte, Absolute 0.7 103/mcL Normal 0.2 - 1.0 10^3/mcL AO Workflow SS Monocytes/100 WBC (Bld) 10.3 % Normal 1.7 - 13.0 % AO Workflow SS Neutrophil, Absolute 2.9 103/mcL Normal 2.9 - 6 .2 10^3/mcL AO Workflow SS Neutrophils/100 WBC (Bld) 43.0 % Normal 37.0 - 80.0 % AO Workflow SS Platelet mean volume (Bld) [Entitic vol] 10.2 fL Normal 7.4 - 10.4 fL AO Workflow SS Platelets (Bld) [#/Vol] 147 103/mcL Normal 130 - 400 10^3/mcL AO Workflow SS Potassium [Moles/Vol] 4.4 mmol/L Normal 3.5 - 5.1 mmol/L AO ADM SS RBC (Bld) [#/Vol] 4.49 106/mcL Normal 4.04 - 6.1 3 10^6/mcL AO Workflow SS Sodium [Moles/Vol] 141 mmol/L Normal 136 - 145 mmol/L AO ADM SS Urea nitrogen [Mass/Vol] 21 mg/dL High 7 - 18 mg/dL AO ADM SS Urea nitrogen/Creatinine [Mass ratio] 28 ratio High 7 - 27 ratio AO ADM SS WBC (Bld) [#/Vol] 6.7 103/mcL Normal 4.6 - 10.8 10^3/mcL AO Workflow SS LABORATORYOrdered By: Kaiser Lima on 01-27-2024 MRSA (PCR) Not Detected 1 (01/27/24 11:50 AM) Normal Not Detected AH Auto Viro/Sero SS Comment on above: Result Comment: [place] [id number] MRSA PCR Int MRSA DNA not detecte d by Real-Time Polymerase Chain Reaction (PCR). A negative result may be due to intermittent colonization. Colonization may vary depending on patient treatment, patient status, or exposure to high-risk environments.As with all PCR based in vitro diagnostic tests, extremely low levels of target below the limit of detection of the assay may be detected, but results may not be reproducible. Invalid Interpretation Code AH Auto Viro/Sero SS MRSAPCRon 01-27-2024 MRSA (PCR) Not detected Normal Not Detected [facility] ([place]) Comment on above: Result Comment: [place] [id number] Performed By: #### A LA BULLOCK, CBC, GFR, ADIFF, ABSGEL, BMP, ALB #### [address] [address] MRSA PCR Int Normal [facility] ([place]) Comment on above: Result Comment: MRSA DNA not detected by Real-Time Polymerase Chain Reaction (PCR). A negative result may be due to intermittent colonization. Colonization may vary depending on patient treatment, patient status, or exposure to high-risk environments. As with all PCR based in vitro diagnostic tests, extremely low levels of target below the limit of detection of the assay may be detected, but results may not be reproducible. See Below Performed By: #### A LA BULLOCK, CBC, GFR, ADIFF, ABSGEL, BMP, ALB #### [id number] [place], [place] [address] CNOVon 12-31-2023 CNOV Office Visit (FAMPWS ) SONIYA COOLEY ([id number]) 1940 M Date Time Provider Department 12/31/23 10:40 AM ONIEL FRANCIS During your visit today, we recorded the following information about you: Temperature Pulse Respiration Blood pressure 97.5 degrees 58/minute 16/minute 120/82 Weight 90.7 kg Oniel Francis MD 12/31/2023 7:09 PM Signed Chief Complaint Patient presents with: Follow Up HPI Soniya Cooley is a 83 year old male who presents here today for follow up on Urgent Care visit. Patient was seen in Urgent Care on 12/14/2023 for cough and congestion. Was treated with doxy 100 mg twice a day for a week. Patient indicated that his cough and congestion has cleared up and is feeling good. Has slight shortness of breath but feels it's similar to his normal. No fevers or chills. X-ray showed Questionable vague hazy opacity in the left midlung. Consider short-term follow-up. Past medical history, appointments, medications, allergies reviewed. Previous Medical History PAST MEDICAL HISTORY Diagnosis Date Acquired hypothyroidism 03/16/2020 Advance directive discussed with patient 12/12/2021 Allergic rhinitis 06/20/2018 Anticoagulated on Coumadin 01/28/[address] Francis: Aortic (per cardio target INR of 2-2.5.), was placed on coumadin per cardio due to US showing a build up on the bovine Valve, Started in 12/2015 Aortic valve disorder 10/09/2002 History: s/p AVR October 2002 Assessment: s/p 10/29/2018: Redo sternotomy AVR ( tissue valve size 27 ) was implanted in usual manner, LLANOS ( skeletonized ) to LAD BRIEF FINDINGS: Dense pericardial adhesions, degeneration of previous implanted aortic valve, Excellent quality and flow in LLANOS and good size LAD target Plan: ASA Aortic valve replaced 11/13/2005 Aortic, was placed on coumadin per cardio due to US showing a build up on the bovine Valve, Started in 12/2015 Aortic valve replaced 11/13/200510/2018 and anticoagulation was stopped. B12 deficiency 10/18/2014 Carotid stenosis, asymptomatic, bilateral 10/29/2008 S/P left repair, Sees Edu for yearly US. Coronary atherosclerosis 08/24/2015 History: S/p CABG with a sequential graft to the diagonal branch, lateral and posterior lateral circumflex branches as well as PDA in October 2002 Assessment: Now s/p CABG x 1 LLANOS to LAD Plan: CAD Core Measures: Aspirin: Yes Beta blockers: Yes Statins: Lipitor 40mg started 3-30, LFTs normal-continue on dc. Elevated fasting blood sugar 06/19/2016 Essential hypertension 10/30/2018 Family history of colon cancer 01/31/2010 Family history of malignant neoplasm of gastrointestinal tract Family history of Parkinson's disease 12/11/2019 History of DVT (deep vein thrombosis) 06/19/2017 Patient was on coumadin at the time. spring History of rheumatic heart disease 10/09/2002 Living will on file 12/12/2021 DPA: Elizabet () Meniscus tear 12/27/2015 Right, minimal. Seen Niagarazuly hebert Microscopic hematuria 01/10/2021 Saw [facility] 02/2021 and felt further w/u not warranted. 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 Dunn Obesity, Class I, BMI 30-34.9 08/26/2018 Other proteinuria 01/10/2021 24 hr patient 01/2021 normal, Repeat yearly Other proteinuria 01/10/2021 24 hr patient 01/2021 normal, Parkinson disease (HCC) 12/01/2013 Postsurgical aortocoronary bypass status 2006 Rheum heart dis NEC/NOS Rheumatic fever Seasonal allergies 12/17/[address] Dash Sleep disorder 07/26/2015 Synovial cyst of right popliteal space 01/28/2017 US ER 01/2017: 3.5 x 1.1 CM Vitamin D deficiency 12/03/2013 Previous Surgical History PAST SURGICAL HISTORY Procedure Laterality Date 2D ECHO (EXEP) 01/08/2020 EF=53%, mild LVH, ABDOMINAL SURGERY HX CABG W/ARTERIAL GRAFT SINGLE ARTERIAL GRAFT 10/29/2018 used mammorary artery COLONOSCOPY FLX DX W/COLLJ SPEC WHEN PFRMD 2003 Colonoscopy COLONOSCOPY FLX DX W/COLLJ SPEC WHEN PFRMD 03/24/2010 Normal, recheck 5 yrs COLONOSCOPY FLX DX W/COLLJ SPEC WHEN PFRMD 01/28/2015 repeat in 5 yrs COLONOSCOPY FLX DX W/COLLJ SPEC WHEN PFRMD 07/03/2021 repeat in 5 years-polyp CORONARY ARTERY BYP W/VEIN AND ARTERY GRAFT 4 VEIN 2002 CABG, quadruple grafts FECAL OCCULT BLOOD TEST 12/25/2016 negative HEART CATHETERIZATION [facility], HEART SURGERY HX HERNIA REPAIR HX LAPAROSCOPY SURG CHOLECYSTECTOMY Cholecystectomy, lap LEFT HEART CATH,PERCUTANEOUS 1998 Cardiac cath, L heart PAST SURGICAL HISTORY OF 10/29/2018 Aortic valve replacement with pig valve and anticoagulation stopped RADICAL RESECTION TONSIL W/O CLOSURE REMV CATARACT EXTRACAP,INSERT LENS 08/22/2020 and 09/14/2020 R (more content not included)... Normal [facility] CNOVon 12-23-2023 CNOV Office Visit (CAWSTR ) SONIYA COOLEY ([id number]) 1940 M Date Time Provider Department 12/23/23 3:40 PM MARJ MACKEY [facility] During your visit today, we recorded the following information about you: Pulse Blood pressure Weight Height 57/minute 119/72 89.2 kg 1.702 m Marj Mackey MD 12/23/2023 4:30 PM Signed [facility] Cardiology ([facility]) [address] [place] [id number] OUTPATIENT VISIT DATE 12/23/2023 PRIMARY CARE PHYSICIAN: Oniel Francis [address] [place] [address] HISTORY OF PRESENT ILLNESS: Mr. Cooley is a 83 year old gentleman with a history of coronary artery disease with remote coronary bypass grafting with an SVG graft to dominant left circumflex, left PDA with a Y graft to the diagonal branch (2002). He underwent repeat grafting aortic valve replacement in 2019 with a LLANOS graft LAD and Bernice-Rush aortic valve replacement. He has a history of carotid artery disease with prior left carotid endarterectomy, hypertension, dyslipidemia. He presents the office for routine follow-up. He is considering knee replacement surgery. Patient has been doing well from a functional standpoint. He has not had symptoms of chest pain or pressure. He does well from with ambulation and denies symptoms of shortness of breath or dyspnea on exertion. He has not had symptoms concerning for CHF including PND, orthopnea, or lower extremity edema. PAST MEDICAL HISTORY Diagnosis Date Acquired hypothyroidism 03/16/2020 Advance directive discussed with patient 12/12/2021 Allergic rhinitis 06/20/2018 Anticoagulated on Coumadin 01/28/[address] Francis: Aortic (per cardio target INR of 2-2.5.), was placed on coumadin per cardio due to US showing a build up on the bovine Valve, Started in 12/2015 Aortic valve disorder 10/09/2002 History: s/p AVR October 2002 Assessment: s/p 10/29/2018: Redo sternotomy AVR ( tissue valve size 27 ) was implanted in usual manner, LLANOS ( skeletonized ) to LAD BRIEF FINDINGS: Dense pericardial adhesions, degeneration of previous implanted aortic valve, Excellent quality and flow in LLANOS and good size LAD target Plan: ASA Aortic valve replaced 11/13/2005 Aortic, was placed on coumadin per cardio due to US showing a build up on the bovine Valve, Started in 12/2015 Aortic valve replaced 11/13/200510/2018 and anticoagulation was stopped. B12 deficiency 10/18/2014 Carotid stenosis, asymptomatic, bilateral 10/29/2008 S/P left repair, Sees Edu for yearly US. Coronary atherosclerosis 08/24/2015 History: S/p CABG with a sequential graft to the diagonal branch, lateral and posterior lateral circumflex branches as well as PDA in October 2002 Assessment: Now s/p CABG x 1 LLANOS to LAD Plan: CAD Core Measures: Aspirin: Yes Beta blockers: Yes Statins: Lipitor 40mg started 3-30, LFTs normal-continue on dc. Elevated fasting blood sugar 06/19/2016 Essential hypertension 10/30/2018 Family history of colon cancer 01/31/2010 Family history of malignant neoplasm of gastrointestinal tract Family history of Parkinson's disease 12/11/2019 History of DVT (deep vein thrombosis) 06/19/2017 Patient was on coumadin at the time. spring History of rheumatic heart disease 10/09/2002 Living will on file 12/12/2021 DPA: Elizabet () Meniscus tear 12/27/2015 Right, minimal. Seen [facility] Microscopic hematuria 01/10/2021 Saw [facility] 02/2021 and felt further w/u not warranted. 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 Dunn Obesity, Class I, BMI 30-34.9 08/26/2018 Other proteinuria 01/10/2021 24 hr patient 01/2021 normal, Repeat yearly Other proteinuria 01/10/2021 24 hr patient 01/2021 normal, Parkinson disease (HCC) 12/01/2013 Postsurgical aortocoronary bypass status 2006 Rheum heart dis NEC/NOS Rheumatic fever Seasonal allergies 12/17/[address] Dash Sleep disorder 07/26/2015 Synovial cyst of right popliteal space 01/28/2017 US ER 01/2017: 3.5 x 1.1 CM Vitamin D deficiency 12/03/2013 PAST SURGICAL HISTORY Procedure Laterality Date 2D ECHO (EXEP) 01/08/2020 EF=53%, mild LVH, ABDOMINAL SURGERY HX CABG W/ARTERIAL GRAFT SINGLE ARTERIAL GRAFT 10/29/2018 used mammorary artery COLONOSCOPY FLX DX W/COLLJ SPEC WHEN PFRMD 2003 Colonoscopy COLONOSCOPY FLX DX W/COLLJ SPEC WHEN PFRMD 03/24/2010 Normal, recheck 5 yrs COLONOSCOPY FLX DX W/COLLJ SPEC WHEN PFRMD 01/28/2015 repeat in 5 yrs COLONOSCOPY FLX DX W/COLLJ SPEC WHEN PFRMD 07/03/2021 repeat in 5 years-polyp CORONARY ARTERY BYP W/VEIN AND ARTERY GRAFT 4 VEIN , (more content not included)... Normal [facility] [id number] 12-23-2023 ECG01 Ventricular Rate : 6 8 BPM Atrial Rate : 68 BPM P-R Interval : 216 ms QRS Duration : 106 ms Q-T Interval : 404 ms QTC Calculation(Bazett) : 429 ms Calculated P [place] : 73 degrees Calculated R [place] : 32 degrees Calculated T [place] : 83 degrees SINUS RHYTHM WITH 1ST DEGREE AV BLOCK WITH PREMATURE SUPRAVENTRICULAR COMPLEXES AND WITH OCCASIONAL PREMATURE VENTRICULAR COMPLEXES NONSPECIFIC ST ABNORMALITY ABNORMAL ECG Confirmed by MD HANNAH, DILIP () on 12/24/2023 8:16:59 AM NAME : SONIYA COOLEY PID : [id number] : 1940 Gender : Male Race : ORD : Procedure Date : Dec 23 2023 15:45:47 Edit Date : Dec 24 2023 08:17:03 Diagnosis: SINUS RHYTHM WITH 1ST DEGREE AV BLOCK WITH PREMATURE SUPRAVENTRICULAR COMPLEXES AND WITH OCCASIONAL PREMATURE VENTRICULAR COMPLEXES NONSPECIFIC ST ABNORMALITY ABNORMAL ECG Confirmed by MD YOUNG GREGORY () on 12/24/2023 8:16:59 AM Test Reason : Location : 136 : [facility] Overread By : MD YOUNG GREGORY Edited By : MD YOUNG GREGORY Referred By : MARJ MACKEY [facility] : [facility] (FAMWS) SONIYA COOLEY ([id number]) 1940 M Date Time Provider Department 12/16/23 [facility] During your visit today, we recorded the following information about you: Oniel Francis MD 12/16/2023 10:05 PM Signed Needs f/u in 3 weeks within [facility] for f/u pneumonia and repeat chest x-ray to see if vague hazy opacity in left mid lung has resolved. Prudencio Barlow MA 12/17/2023 9:06 AM Signed Left message for patient to contact office. RUSLAN Morales Stephanie, RN 12/17/2023 11:46 AM Signed Patient's scheduled for appointment on 12/31/2023. Michelle Herring RN Allergies As of Date: 12/16/2023 Noted Allergy Reaction IODINE 10/09/2002 14 - Other: See Comments Comments: ?decreased BP with iodinated contrast during a cardiac cath. Pt reports he was told by the game agent that they almost lost him due to his reaction and was allergic reaction. The patient reports taking 13 hour allergy premedications in the past with Iodinated contrast without experiencing any breakthrough reaction. PENICILLIN G 10/09/2002 4 - Hives Date Reviewed: 12/14/2023 Reviewed by: Samara Grossman - Fully Assessed Reason for Visit: Appointment [[id number]] Prescriptions as of 12/17/2023 - doxycycline (VIBRA-TABS) 100 mg tablet Take 1 tablet by mouth two times a day for 7 days. - atorvastatin (LIPITOR) 80 mg tablet Take 1 tablet by mouth once daily. - ezetimibe (ZETIA) 10 mg tablet Take 1 tablet by mouth once daily. - metoprolol tartrate, short acting, (LOPRESSOR) 50 mg tablet Take 1 tablet by mouth two times a day. - levothyroxine (SYNTHROID) 25 mcg tablet Take 1 tablet by mouth once daily. Take on empty stomach. For thyroid. - carbidopa-levodopa (SINEMET 25-100) 25-100 mg per tablet TAKE 3 TABLETS 3 TIMES A DAY - meloxicam (MOBIC) 15 mg tablet once daily. - cyanocobalamin, vitamin B-12, 500 mcg ODT Take 2 tablets by mouth once daily. - nitroglycerin sublingual (NITROQUICK) 0.4 mg SL tablet Dissolve 1 tablet under the tongue every 5 minutes as needed. - furosemide (LASIX) 40 mg tablet Take 1 tablet by mouth once daily. Per cardio - clindamycin (CLEOCIN) 150 mg capsule Take 4 tabs 30-60 min before dental procedures. - aspirin, enteric coated (ECOTRIN LOW STRENGTH) 81 mg EC tablet Take 1 tablet by mouth once daily. - acetaminophen (TYLENOL) 500 mg tablet Take 1,000 mg by mouth every 8 hours as needed for Pain. - fluticasone (FLONASE) 50 mcg/actuation nasal spray Use 1 Blum in each nostril once daily. Rinse mouth after use. - Cholecalciferol, Vitamin D3, 2,000 unit cap Take 2 tablets by mouth once daily. - omega-3 fatty acids/vitamin e(FISH OIL 1,000 MG CAP) one tablet twice daily - multivitamins w-minerals/lut(CENTRU M SILVER TAB) One tablet daily Facility-Administered Medications as of 12/17/2023 - perflutren lipid microspheres 1.3 mL in NaCl (PF) 0.9% 10 mL injection (DEFINITY) - sodium chloride 0.9 % (flush) 10 mL (BD POSIFLUSH) Meds Comments as of 11/04/2018: 11/04/18 The medications are managed by this patient by: PATIENT and SPOUSE Rhea Emery Pharm-T Problem List As Of Date 12/16/2023 Noted Resolved Aortic valve disorder [I35.9] 10/09/2002 01/14/2020 Mixed hyperlipidemia [E78.2] 10/09/2002 History of rheumatic heart disease [Z86.79] 10/09/2002 Aortic valve replaced [Z95.2] 11/13/2005 Benign localized prostatic hyperplasia with low*2006 Postsurgical aortocoronary bypass status [Z95.1]2006 Abnormal involuntary movements [R25.8, R25.9] 12/16/2007 02/28/2012 Cervicalgia [M54.2] 10/22/2008 02/22/2011 Carotid stenosis, asymptomatic, bilateral [I65.*10/29/2008 Family history of colon cancer [Z80.0] 01/31/2010 07/03/2021 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/01/2013 Vitamin D deficiency [E55.9] 12/03/2013 B12 deficiency [E53.8] 10/18/2014 Nocturnal hypoxemia [G47.34] 07/26/2015 Sleep disorder [G47.9] 07/26/2015 Coronary 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quechan ballard*08/24/2015 Meniscus tear [S83.209A] 12/27/2015 Elevated blood sugar [R73.9] 06/19/2016 Seasonal allergies [J30.2] 12/17/2016 01/14/2020 Medicare annual wellness visit, subsequent [Z00*12/17/2016 Colon cancer screening [Z12.11] 12/17/2016 01/14/2020 Synovial cyst of right popliteal space [M71.21] 01/28/2017 History of DVT (deep vein thrombosis) [Z86.718] 06/19/2017 Allergic rhinitis [J30.9] 06/20/2018 Obesity, Class I, BMI 30-34.9 [E66.9] 08/26/2018 Stress hyperglycemia [R73.9] 10/29/2018 11/01/2018 Coagulopathy (HCC) [D68.9] 10/29/2018 10/30/2018 Essential hypertension [I10] 10/30/2018 Family history of malignant neoplasm of gastroi* 01/14/2020 Acute deep vein thrombosis (DVT) of distal vein*04/20/2019 01/14/2020 Tremor [R25.1] 12/11/2019 01/14/2020 Family history of Parkinson's disease [Z82.0] 12/11/2019 Stiffness of hand joint [M25.649] (more content not included)... Normal [facility] CNOVon 12-14-2023 CNOV Office Visit (UCWSTR ) RITAANNE BLUELIE Ella ([id number]) 1940 M Date Time Provider Department 12/14/23 11:15 AM SHAMAR BARLOW [facility] During your visit today, we recorded the following information about you: Temperature Pulse Respiration Blood pressure 96.2 degrees 62/minute 16/minute 120/62 Weight 91.1 kg Shamar Barlow APRN.[employer] 12/14/2023 1:47 PM Signed CC: Patient presents with: Cough: Congestion and runny nose x6 days HPI: Soniya Cooley is a 83 year old male who presents to the office with complaint of head congestion, cough, nonproductive, and rhinorrhea for 6 days. Symptoms are staying the same. Associated symptoms includes wheezing. Denies fever, nausea, vomiting , and diarrhea. Treatments tried include nothing so far. with no relief of symptoms. Sick contacts: unknown. History of asthma, frequent episodes of bronchitis, chronic bronchitis, bronchiectasis or COPD: No Smoker: No Seasonal/environmenta l allergies: No The ROS is otherwise negative. The patient's pmh, medications, allergies, and past visits are reviewed. PHYSICAL EXAM: BP 120/62 Pulse 62 Temp (!) 35.7 ?C (96.2 ?F) Resp 16 Wt 91.1 kg (200 lb 13.4 oz) SpO2 98% BMI 31.46 kg/m? General appearance: alert, cooperative, pleasant, in no acute distress Head: Normocephalic Eyes: EOM's intact, conjunctiva pink and moist, no icterus, sclera white, non-injected Ears: Right ear: External ear/canal- Normal, TM - clear with good landmarks. Left ear: External ear/canal- Normal, TM - clear with good landmarks Oropharynx:moist without lesions, No erythema, exudates or tonsillar hypertrophy. Heart: Negative. RRR without obvious murmur, gallop, or rubs. No ectopy. Lungs: clear to auscultation, without rales or wheeze, good air exchange PAST MEDICAL HISTORY Diagnosis Date Acquired hypothyroidism 03/16/2020 Advance directive discussed with patient 12/12/2021 Allergic rhinitis 06/20/2018 Anticoagulated on Coumadin 01/28/[address] Francis: Aortic (per cardio target INR of 2-2.5.), was placed on coumadin per cardio due to US showing a build up on the bovine Valve, Started in 12/2015 Aortic valve disorder 10/09/2002 History: s/p AVR October 2002 Assessment: s/p 10/29/2018: Redo sternotomy AVR ( tissue valve size 27 ) was implanted in usual manner, LLANOS ( skeletonized ) to LAD BRIEF FINDINGS: Dense pericardial adhesions, degeneration of previous implanted aortic valve, Excellent quality and flow in LLANOS and good size LAD target Plan: ASA Aortic valve replaced 11/13/2005 Aortic, was placed on coumadin per cardio due to US showing a build up on the bovine Valve, Started in 12/2015 Aortic valve replaced 11/13/200510/2018 and anticoagulation was stopped. B12 deficiency 10/18/2014 Carotid stenosis, asymptomatic, bilateral 10/29/2008 S/P left repair, Sees Edu for yearly US. Coronary atherosclerosis 08/24/2015 History: S/p CABG with a sequential graft to the diagonal branch, lateral and posterior lateral circumflex branches as well as PDA in October 2002 Assessment: Now s/p CABG x 1 LLANOS to LAD Plan: CAD Core Measures: Aspirin: Yes Beta blockers: Yes Statins: Lipitor 40mg started 3-30, LFTs normal-continue on dc. Elevated fasting blood sugar 06/19/2016 Essential hypertension 10/30/2018 Family history of colon cancer 01/31/2010 Family history of malignant neoplasm of gastrointestinal tract Family history of Parkinson's disease 12/11/2019 History of DVT (deep vein thrombosis) 06/19/2017 Patient was on coumadin at the time. spring History of rheumatic heart disease 10/09/2002 Living will on file 12/12/2021 DPA: Elizabet () Meniscus tear 12/27/2015 Right, minimal. Seen Lamont hebert Microscopic hematuria 01/10/2021 Saw Luciano 02/2021 and felt further w/u not warranted. 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 Dunn Obesity, Class I, BMI 30-34.9 08/26/2018 Other proteinuria 01/10/2021 24 hr patient 01/2021 normal, Repeat yearly Other proteinuria 01/10/2021 24 hr patient 01/2021 normal, Parkinson disease (HCC) 12/01/2013 Postsurgical aortocoronary bypass status 2006 Rheum heart dis NEC/NOS Rheumatic fever Seasonal allergies 12/17/[address] Dash Sleep disorder 07/26/2015 Synovial cyst of right popliteal space 01/28/2017 US ER 01/2017: 3.5 x 1.1 CM Vitamin D deficiency 12/03/2013 PAST SURGICAL HISTORY Procedure Laterality Date 2D ECHO (EXEP) 01/08/2020 EF=53%, mild LVH, ABDOMINAL SURGERY HX CABG W/ARTERIAL GRAFT SINGLE ARTERIAL GRAFT 10/29/2018 used mammorary artery COLONOSCOPY FLX DX W/COLLJ SPEC WHEN PFRMD 2003 Colonoscopy COLONOSCOPY FLX DX W/COLLJ SPEC WHEN PFRMD 03/24/2010 Normal, (more content not included)... Normal [facility] XR CHEST 2V FRONTAL/LATon XR CHEST 2V FRONTAL/LAT * * *Final Report* * * DATE OF EXAM: Dec 14 2023 11:49AM WOX [id number] - XR CHEST 2V FRONTAL/LAT / PROCEDURE REASON: Acute cough * * * * Physician Interpretation * * * * EXAMINATION: CHEST RADIOGRAPH (2 VIEW FRONTAL and LATERAL) CLINICAL HISTORY: Acute cough MQ: XC2_6 EXAM DATE/TIME: 12/14/2023 11:49 AM COMPARISON: Chest x-ray on 11/07/2018 RESULT: Lines, tubes, and devices: Status post aortic valve replacement. Lungs and pleura: Questionable vague hazy opacity in the left midlung. No lung mass. No pleural effusion. No pneumothorax. Cardiomediastinal silhouette: Stable cardiomediastinal silhouette. Bones and soft tissues: There are postoperative changes from median sternotomy. IMPRESSION: Questionable vague hazy opacity in the left midlung. Consider short-term follow-up. Doorshaker: PSCB Transcribe Date/Time: Dec 14 2023 1:30P Dictated by : JAGUAR GONZALES MD This examination was interpreted and the report reviewed and electronically signed by: JAGUAR GONZALES MD on Dec 14 2023 1:32PM EST [id number] N Normal [facility] XR Chest PA and Lateralon IMPRESSION: Questionable vague hazy opacity in the left midlung. Consider short-term follow-up. Doorshaker: GEOFFREY Transcribe Date/Time: Dec 14 2023 1:30P Dictated by : JAGUAR GONZALES MD This examination was interpreted and the report reviewed and electronically signed by: JAGUAR GONZALES MD on Dec 14 2023 1:32PM EST DIVISION OF RADIOLOGY * * *Final Report* * * DATE OF EXAM: Dec 14 2023 11:49AM WOX [id number] - XR CHEST 2V FRONTAL/LAT / PROCEDURE REASON: Acute cough * * * * Physician Interpretation * * * * EXAMINATION: CHEST RADIOGRAPH (2 VIEW FRONTAL & LATERAL) CLINICAL HISTORY: Acute cough MQ: XC2_6 EXAM DATE/TIME: 12/14/2023 11:49 AM COMPARISON: Chest x-ray on 11/07/2018 RESULT: Lines, tubes, and devices: Status post aortic valve replacement. Lungs and pleura: Questionable vague hazy opacity in the left midlung. No lung mass. No pleural effusion. No pneumothorax. Cardiomediastinal silhouette: Stable cardiomediastinal silhouette. Bones and soft tissues: There are postoperative changes from median sternotomy. DIVISION OF RADIOLOGY Provider, [facility] - 12/14/2023 * * *Final Report* * * DATE OF EXAM: Dec 14 2023 11:49AM WOX 5291 - XR CHEST 2V FRONTAL/LAT / PROCEDURE REASON: Acute cough * * * * Physician Interpretation * * * * EXAMINATION: CHEST RADIOGRAPH (2 VIEW FRONTAL & LATERAL) CLINICAL HISTORY: Acute cough MQ: XC2_6 EXAM DATE/TIME: 12/14/2023 11:49 AM COMPARISON: Chest x-ray on 11/07/2018 RESULT: Lines, tubes, and devices: Status post aortic valve replacement. Lungs and pleura: Questionable vague hazy opacity in the left midlung. No lung mass. No pleural effusion. No pneumothorax. Cardiomediastinal silhouette: Stable cardiomediastinal silhouette. Bones and soft tissues: There are postoperative changes from median sternotomy. IMPRESSION IMPRESSION: Questionable vague hazy opacity in the left midlung. Consider short-term follow-up. Doorshaker: PSCB Transcribe Date/Time: Dec 14 2023 1:30P Dictated by : JAGUAR GONZALES MD This examination was interpreted and the report reviewed and electronically signed by: JAGUAR GONZALES MD on Dec 14 2023 1:32PM EST [facility] Radiology Study observation (narrative) [facility] XR Chest PA and LateralOrder ed By: Ccf Provider on 12-14-2023 [facility] TSH BLDon 06-23-2022 TSH Qn 1.610 m[IU]/L 0.270 - 4.200 mIU/L [facility] HbA1c (Bld)on 06-22-2022 Average glucose Estimated from glycated hemoglobin (Bld) [Mass/Vol] 117 mg/dL [facility] HbA1c (Bld) [Mass fraction] 5.7 % High 4.3 - 5.6 % [facility] CNPGay 12-16-2020 CNPN Telephone (CODY) SONIYA COOLEY ([id number]) 1940 M Date Time Provider Department 12/16/20 ABBY PATE During your visit today, we recorded the following information about you: Michelle Blackmon Ma 12/16/2020 4:00 PM Signed Physical Therapy order faxed to Amy at [facility] PT at [phone]. Michelle Blackmon PANTOMIMIST ([facility]) Allergies As of Date: 12/16/2020 Noted Allergy Reaction IODINE 10/09/2002 14 - Other: See Comments Comments: ?decreased BP with iodinated contrast during a cardiac cath. Pt reports he was told by the game agent that they almost lost him due to his reaction and was allergic reaction. The patient reports taking 13 hour allergy premedications in the past with Iodinated contrast without experiencing any breakthrough reaction. PENICILLIN G 10/09/2002 4 - Hives Date Reviewed: 12/07/2020 Reviewed by: Oniel Francis MD - Fully Assessed Reason for Visit: Orders [681] Prescriptions as of 12/16/2020 Sig: LEVOTHYROXINE 25 MCG TABLET Take 1 tablet by mouth once d* ATORVASTATIN 40 MG TABLET Take 1 tablet by mouth once d* CARBIDOPA 25 MG-LEVODOPA 100 * Take 2 tablets by mouth three* NITROGLYCERIN 0.4 MG SUBLINGU* 0.4 mg. FUROSEMIDE 40 MG TABLET Take 1 tablet by mouth once d* CLINDAMYCIN HCL 150 MG CAPSULE Take 4 tabs 30-60 min before * METOPROLOL TARTRATE 50 MG TAB* Take 1 tablet by mouth twice * ASPIRIN 81 MG TABLET,DELAYED * Take 1 tablet by mouth once d* ACETAMINOPHEN 500 MG TABLET Take 1,000 mg by mouth every * FLUTICASONE PROPIONATE 50 MCG* Use 1 Blum in each nostril o* CHOLECALCIFEROL (VITAMIN D3) * Take 2 tablets by mouth once * CYANOCOBALAMIN (VIT B-12) 500* Dissolve 500 mcg under the to* Patient taking differently: Take 1,000 mcg by mouth once * * FISH OIL 1,000 MG CAPSULE one tablet twice daily * CENTRUM SILVER TABLET One tablet daily Problem List As Of Date 12/16/2020 Noted Resolved Aortic valve disorder [I35.9] 10/09/2002 01/14/2020 Mixed hyperlipidemia [E78.2] 10/09/2002 History of rheumatic heart disease [Z86.79] 10/09/2002 Aortic valve replaced [Z95.2] 11/13/2005 Benign localized prostatic hyperplasia with low*2006 Postsurgical aortocoronary bypass status [Z95.1]2006 Abnormal involuntary movements [R25.8, R25.9] 12/16/2007 02/28/2012 Cervicalgia [M54.2] 10/22/2008 02/22/2011 Carotid stenosis, asymptomatic, bilateral [I65.*10/29/2008 Family history of colon cancer [Z80.0] 01/31/2010 01/14/2020 Parkinson disease (HCC) [G20] 12/01/2013 Vitamin D deficiency [E55.9] 12/03/2013 B12 deficiency [E53.8] 10/18/2014 Nocturnal hypoxemia [G47.34] 07/26/2015 Sleep disorder [G47.9] 07/26/2015 Coronary atherosclerosis [I25.10] 08/24/2015 Meniscus tear [S83.209A] 12/27/2015 Elevated blood sugar [R73.9] 06/19/2016 Disorder of prostate [N42.9] 06/19/2016 Seasonal allergies [J30.2] 12/17/2016 01/14/2020 Medicare annual wellness visit, subsequent [Z00*12/17/2016 Colon cancer screening [Z12.11] 12/17/2016 01/14/2020 Synovial cyst of right popliteal space [M71.21] 01/28/2017 History of DVT (deep vein thrombosis) [Z86.718] 06/19/2017 Allergic rhinitis [J30.9] 06/20/2018 Obesity, Class I, BMI 30-34.9 [E66.9] 08/26/2018 Stress hyperglycemia [R73.9] 10/29/2018 11/01/2018 Coagulopathy (HCC) [D68.9] 10/29/2018 10/30/2018 Essential hypertension [I10] 10/30/2018 Family history of malignant neoplasm of gastroi* 01/14/2020 Acute deep vein thrombosis (DVT) of distal vein*04/20/2019 01/14/2020 Tremor [R25.1] 12/11/2019 01/14/2020 Family history of Parkinson's disease [Z82.0] 12/11/2019 Stiffness of hand joint [M25.649] 12/31/2019 Swelling of both hands [M79.89] 12/31/2019 Acquired hypothyroidism [E03.9] 03/16/2020 Medication management [Z79.899] 04/12/2020 Encounter Status:Closed by MICHELLE BLACKMON MA on 12/16/20 [facility] WILLIAMon 10-06-2020 CNOV Office Visit (ERASMOMarcus ) RITASONIYA BLUE ([id number]) 1940 M Date Time Provider Department 10/06/20 11:00 AM ABBY PATE During your visit today, we recorded the following information about you: Pulse Blood pressure Weight Height 52/minute 142/90 87.6 kg 1.702 m Abby Pate MD 10/20/2020 9:53 PM Signed FOLLOW UP NOTE Subjective Soniya Jaramillo Marioluis is a 79 year old male who presents for follow up. CC: PD Summary: Right-handed male with a history of CAD / s/p CABG and AVR, left carotid stenosis s/p CEA, and tremor who presents for evaluation of tremor. His examination demonstrates mild parkinsonian features. His presentation is most consistent with Parkinson's Disease. He has motor features of tremor, mild left sided bradykinesia, and mild gait changes. He has mild hypomimia and hypophonia. 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 First visit 01/2020 taper off primidone, start levodopa, encourage exercise, increase hydration but caution with cardiac disease, start miralax. Last visit 05/2020 increase levodopa to 150 mg TID, increase hydration, add miralax. HPI Current Issues 1. PD - Increased to 1.5 tabs of levodopa last visit - No benefit or worsening with increased dose - No side effects - Using weighted spoon, helping with eating - Exercises with walking 2. Constipation - Has been better since the last visit though completely sure why - Using Miralax PRN - Didn't significantly increase hydration 3. Sleep - For a period of time was having difficulty falling asleep, would be lying in bed awake - Thinks taking it too late in the evening seemed to negatively impact sleep - Has tried melatonin a couple times but doesn't take it regularly 0800 1200 17-1800 Cd/ld 25/100 1.5 1.5 1.5 Current Outpatient Medications Medication Sig Dispense Refill - carbidopa-levodopa (SINEMET 25-100) 25-100 mg per tablet Take 2 tablets by mouth three times daily. 540 tablet 3 - levothyroxine (SYNTHROID) 25 mcg tablet Take 1 tablet by mouth once daily. Take on empty stomach. For thyroid. 90 tablet 1 - atorvastatin (LIPITOR) 40 mg tablet Take 1 tablet by mouth once daily. 90 tablet 1 - nitroglycerin sublingual (NITROQUICK) 0.4 mg SL tablet 0.4 mg. - furosemide (LASIX) 40 mg tablet Take 1 tablet by mouth once daily. Per cardio - clindamycin (CLEOCIN) 150 mg capsule Take 4 tabs 30-60 min before dental procedures. 4 capsule 3 - metoprolol tartrate, short acting, (LOPRESSOR) 50 mg tablet Take 1 tablet by mouth twice daily. - aspirin, enteric coated (ECOTRIN LOW STRENGTH) 81 mg EC tablet Take 1 tablet by mouth once daily. - Cholecalciferol, Vitamin D3, 2,000 unit cap Take 2 tablets by mouth once daily. 0 - cyanocobalamin, vitamin B-12, 500 mcg TbDL Dissolve 500 mcg under the tongue once daily. (Patient taking differently: Take 1,000 mcg by mouth once daily. ) 0 - omega-3 fatty acids/vitamin e(FISH OIL 1,000 MG CAP) one tablet twice daily 0 - multivitamins w-minerals/lut(CENTRU M SILVER TAB) One tablet daily 0 - acetaminophen (TYLENOL) 500 mg tablet Take 1,000 mg by mouth every 8 hours as needed for Pain. - fluticasone (FLONASE) 50 mcg/actuation nasal spray Use 1 Blum in each nostril once daily. Rinse mouth after use. (Patient not taking: Reported on 10/06/2020 ) 1 Bottle 5 No current facility-administered medications for this visit. REVIEW OF SYSTEMS His ROS was positive for that mentioned in the HPI. Otherwise a 10-point ROS was completed and was negative. Objective OBJECTIVE 10/06/20 1057 BP: 142/90 BP Site: Right Arm BP Position: Sitting BP Cuff Size: Regular Adult Pulse: (!) 52 SpO2: 97% Weight: 193 lb 3.2 oz (87.6 kg) Height: 5' 7 (1.702 m) General: General Appearance: Well appearing, alert, in no acute distress, well-hydrated, well nourished. Head: Normocephalic, no masses, lesions, tenderness or abnormalities Neck: Supple Heart: RRR Peripheral Pulses: Normal Neurologic Exam: Mental Status: He is alert. He is fully oriented. Attention is intact. Memory is intact. Language shows normal comprehension and fluency. Affect is appropriate. Cranial Nerves: Pupils are equal and reactive to light. Extraocular movements show full and smooth pursuits. No nystagmus. Visual freeman are full to confrontation. Facial sensation is intact. Facial activation is symmetric. Hearing is intact to conversation. There is mild hypomimia. There is mild hypophonia. There is no dysarthria. Tongue is midline. Palate elevates symmetrically. Shoulder shrug is normal. Motor: Muscle bulk is normal. Muscle power is full. Bilateral UE and LLE rest tremor. Mild R>L bradykinesia. Neck rigidity. Mirror movements. Sensory: Intact to fine touch. Coordination: Finger to nose is smooth without ataxia. Gait/station: Mildly decreased (more content not included)... Normal [facility] CNOVon 06-03-2020 [facility] Office Visit (CODY ) SONIYA COOLEY ([id number]) 1940 M Date Time Provider Department 06/03/20 9:30 AM ABBY PATE During your visit today, we recorded the following information about you: Pulse Blood pressure Weight Height 66/minute 127/74 84.4 kg 1.702 m Abby Pate MD 06/03/2020 11:00 AM Signed FOLLOW UP NOTE Subjective Soniya Cooley is a 79 year old male who presents for follow up. CC: PD Summary: Right-handed male with a history of CAD / s/p CABG and AVR, left carotid stenosis s/p CEA, and tremor who presents for evaluation of tremor. His examination demonstrates mild parkinsonian features. His presentation is most consistent with Parkinson's Disease. He has motor features of tremor, mild left sided bradykinesia, and mild gait changes. He has mild hypomimia and hypophonia. 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 First visit 01/2020 taper off primidone, start levodopa, encourage exercise, increase hydration but caution with cardiac disease, start miralax. HPI Current Issues 1. PD - Slightly better since the last visit overall - Shaking maybe slightly worse when - More animated, seems to have more energy with talking per family. 2 of his 4 kids recently have spontaneously told him how much better he looks. - Still with tremor, which can interfere with certain activity - 2 siblings with PD - Exercises daily by walking up to 2 miles 2. Constipation - Going every 2-3 days and can be difficult - Drinks at least one large Powerade (32 oz) a day - Also does Citracel fiber tablets 0700 1200 1700 Cd/ld 25/100 1 1 1 Current Outpatient Medications Medication Sig Dispense Refill - carbidopa-levodopa (SINEMET 25-100) 25-100 mg per tablet Take 1.5 tablets by mouth three times daily. 405 tablet 3 - atorvastatin (LIPITOR) 40 mg tablet Take 1 tablet by mouth once daily. 90 tablet 1 - nitroglycerin sublingual (NITROQUICK) 0.4 mg SL tablet 0.4 mg. - furosemide (LASIX) 40 mg tablet Take 1 tablet by mouth once daily. Per cardio - levothyroxine (SYNTHROID) 25 mcg tablet Take 1 tablet by mouth once daily. Take on empty stomach. For thyroid. 90 tablet 1 - clindamycin (CLEOCIN) 150 mg capsule Take 4 tabs 30-60 min before dental procedures. 4 capsule 3 - metoprolol tartrate, short acting, (LOPRESSOR) 50 mg tablet Take 1 tablet by mouth twice daily. - aspirin, enteric coated (ECOTRIN LOW STRENGTH) 81 mg EC tablet Take 1 tablet by mouth once daily. - acetaminophen (TYLENOL) 500 mg tablet Take 1,000 mg by mouth every 8 hours as needed for Pain. - fluticasone (FLONASE) 50 mcg/actuation nasal spray Use 1 Blum in each nostril once daily. Rinse mouth after use. 1 Bottle 5 - Cholecalciferol, Vitamin D3, 2,000 unit cap Take 2 tablets by mouth once daily. 0 - cyanocobalamin, vitamin B-12, 500 mcg TbDL Dissolve 500 mcg under the tongue once daily. (Patient taking differently: Take 1,000 mcg by mouth once daily. ) 0 - omega-3 fatty acids/vitamin e(FISH OIL 1,000 MG CAP) one tablet twice daily 0 - multivitamins w-minerals/lut(CENTRU M SILVER TAB) One tablet daily 0 No current facility-administered medications for this visit. REVIEW OF SYSTEMS His ROS was positive for that mentioned in the HPI. Otherwise a 10-point ROS was completed and was negative. Objective OBJECTIVE 06/03/20 0925 BP: 127/74 Pulse: 66 SpO2: 96% Weight: 186 lb (84.4 kg) Height: 5' 7 (1.702 m) General: General Appearance: Well appearing, alert, in no acute distress, well-hydrated, well nourished. Head: Normocephalic, no masses, lesions, tenderness or abnormalities Neck: Supple Heart: RRR Peripheral Pulses: Normal Neurologic Exam: Mental Status: He is alert. He is fully oriented. Attention is intact. Memory is intact. Language shows normal comprehension and fluency. Affect is appropriate. Cranial Nerves: Pupils are equal and reactive to light. Extraocular movements show full and smooth pursuits. No nystagmus. Visual freeman are full to confrontation. Facial sensation is intact. Facial activation is symmetric. Hearing is intact to conversation. There is mild hypomimia. There is mild hypophonia. There is no dysarthria. Tongue is midline. Palate elevates symmetrically. Shoulder shrug is normal. Motor: Muscle bulk is normal. Muscle power is full. Rest tremor during exam most prominent in LUE and LLE but with walking has tremor of right hand. Mild bradykinesia. Neck rigidity. Mirror movements. Mouth opening / closing while doing Francisco J. Sensory: Intact to fine touch. Coordination: Finger to nose is smooth without ataxia. Gait/station: Mildly decreased arm swing on right. Right hand tremor during gait. MDS-UPDRS Motor subscale condition of exam Medication Off/On/Naiive OFF Time of UPDRS Time of Last Medication Last Medication (more content not included)... Normal [facility] INR, POCT Whole Bloodon 08-07 INR Coag RelTime (Bld) 1.40 {INR} High 0.90-1.10 [facility] Comment on above: Result Comment: Brayna dard Therapy 2.0-3.0 High Dose 2.5-3.5 Performed By: #### P INR #### [facility] [address] [id number] Vital Signs Date Time Vital Sign Value Performing Clinician Facility 01-18-2025 15:22-0400 Body height 170.[address] Oniel Francis MD Work Phone: [facility] 09-11-2024 14:46-0500 Body height 170.2 cm Abby Pate MD Work Phone: [facility] 09-11-2024 14:46-0500 Body mass index (BMI) [Ratio] 32.49 kg/m2 Abby Paet MD Work Phone: [facility] 09-11-2024 14:46-0500 Body weight 94.1 kg Abby Pate MD Work Phone: [facility] 09-11-2024 14:46-0500 Diastolic blood pressure 88 mm[Hg] Abby Pate MD Work Phone: [facility] 09-11-2024 14:46-0500 Heart rate 68 /min Abby Pate MD Work Phone: [facility] 09-11-2024 14:46-0500 SaO2% (BldA) [Mass fraction] 93 % Abby Pate MD Work Phone: [facility] 09-11-2024 14:46-0500 Systolic blood pressure 150 mm[Hg] Abby Pate MD Work Phone: [facility] 08-31-2024 15:43-0500 Body height 170.2 cm Marj Mackey MD Work Phone: [facility] 08-31-2024 15:43-0500 Body mass index (BMI) [Ratio] 31.48 kg/m2 Marj Mackey MD Work Phone: [facility] 08-31-2024 15:43-0500 Body weight 91.17 kg Marj Mackey MD Work Phone: [facility] 08-31-2024 15:43-0500 Diastolic blood pressure 56 mm[Hg] Marj Mackey MD Work Phone: [facility] 08-31-2024 15:43-0500 Heart rate 74 /min Marj Mackey MD Work Phone: [facility] 08-31-2024 15:43-0500 Respiratory rate 14 /min Marj Mackey MD Work Phone: [facility] 08-31-2024 15:43-0500 SaO2% (BldA) [Mass fraction] 95 % Marj Mackey MD Work Phone: [facility] 08-31-2024 15:43-0500 Systolic blood pressure 98 mm[Hg] Marj Mackey MD Work Phone: [facility] 05-07-2024 15:30-0400 Body mass index (BMI) [Ratio] 31.32 kg/m2 Zina Duran APRN.[employer] Work Phone: [facility] 05-07-2024 15:30-0400 Body weight 90.72 kg Zina Duran APRN.[employer] Work Phone: [facility] 05-07-2024 15:30-0400 Diastolic blood pressure 67 mm[Hg] Zina Duran APRN.[employer] Work Phone: [facility] 05-07-2024 15:30-0400 Heart rate 63 /min Zina Duran APRN.[employer] Work Phone: [facility] 05-07-2024 15:30-0400 Respiratory rate 16 /min Zina Duran APRN.[employer] Work Phone: [facility] 05-07-2024 15:30-0400 Systolic blood pressure 125 mm[Hg] Zina Duran APRN.[employer] Work Phone: [facility] 04-07-2024 10:57-0400 Diastolic blood pressure 70 mm[Hg] Ella Valdovinos PA-C Work Phone: [facility] 04-07-2024 10:57-0400 Systolic blood pressure 104 mm[Hg] Ella Valdovinos PA-C Work Phone: [facility] 04-07-2024 10:44-0400 Body mass index (BMI) [Ratio] 30.7 kg/m2 Ella Valdovinos PA-C Work Phone: [facility] 04-07-2024 10:44-0400 Body temperature 97.9 [degF] Ella Valdovinos PA-C Work Phone: [facility] 04-07-2024 10:44-0400 Body weight 88.91 kg Ella Valdovinos PA-C Work Phone: [facility] 04-07-2024 10:44-0400 Heart rate 75 /min Ella Valdovinos PA-C Work Phone: [facility] 04-07-2024 10:44-0400 Respiratory rate 18 /min Ella Valdovinos PA-C Work Phone: [facility] 04-07-2024 10:44-0400 SaO2% (BldA) [Mass fraction] 94 % Ella Valdovinos PA-C Work Phone: [facility] 03-11-2024 13:04-0400 Body height 170.2 cm Abby Pate MD Work Phone: [facility] 03-11-2024 13:04-0400 Body mass index (BMI) [Ratio] 29.57 kg/m2 Abby Pate MD Work Phone: [facility] 03-11-2024 13:04-0400 Body weight 85.65 kg Abby Pate MD Work Phone: [facility] 03-11-2024 13:04-0400 Diastolic blood pressure 74 mm[Hg] Abby Pate MD Work Phone: [facility] 03-11-2024 13:04-0400 Heart rate 66 /min Abby Pate MD Work Phone: [facility] 03-11-2024 13:04-0400 Systolic blood pressure 113 mm[Hg] Abby Pate MD Work Phone: [facility] 02-19-2024 15:10-0400 Body temperature 97.7 [degF] DR DEAN CALDWELL MD [facility] 02-19-2024 15:10-0400 Diastolic Blood Pressure Non-Invasive 71 mm[Hg] DR DEAN CALDWELL MD [facility] 02-19-2024 15:10-0400 Heart rate 68 /min DR DEAN CALDWELL MD [facility] 02-19-2024 15:10-0400 Respiratory rate 18 /min DR DEAN CALDWELL MD [facility] 02-19-2024 15:10-0400 Systolic Blood Pressure Non-Invasive 122 mm[Hg] DR DEAN CALDWELL MD [facility] 02-19-2024 13:16-0400 Respiratory rate 18 /min DR DEAN CALDWELL MD [facility] 02-19-2024 11:33-0400 Body temperature 97.52 [degF] DR DEAN CALDWELL MD [facility] 02-19-2024 11:33-0400 Diastolic Blood Pressure Non-Invasive 65 mm[Hg] DR DEAN CALDWELL MD [facility] 02-19-2024 11:33-0400 Heart rate 68 /min DR DEAN CALDWELL MD [facility] 02-19-2024 11:33-0400 Respiratory rate 18 /min DR DEAN CALDWELL MD [facility] 02-19-2024 11:33-0400 Systolic Blood Pressure Non-Invasive 126 mm[Hg] DR DEAN CALDWELL MD [facility] 02-19-2024 08:15-0400 Heart rate 84 /min DR DEAN CALDWELL MD [facility] [place] 02-19-2024 06:27-0400 Body temperature 97.34 [degF] DR DEAN CALDWELL MD [facility] [place] 02-19-2024 06:27-0400 Diastolic Blood Pressure Non-Invasive 58 mm[Hg] DR DEAN CALDWELL MD [facility] [place] 02-19-2024 06:27-0400 Heart rate 67 /min DR DEAN CALDWELL MD [facility] [place] 02-19-2024 06:27-0400 Systolic Blood Pressure Non-Invasive 103 mm[Hg] DR DEAN CALDWELL MD [facility] [place] 02-18-2024 20:42-0400 Heart rate 82 /min DR DEAN CALDWELL MD [facility] [place] 02-18-2024 17:02-0400 Body height 170.[address] DEAN CALDWELL MD [facility] [place] 02-18-2024 17:02-0400 Body weight [address] DEAN CALDWELL MD [facility] [place] 02-18-2024 17:02-0400 Body weight 30.38 kg/m2 DR DEAN CALDWELL MD [facility] [place] 02-18-2024 15:17-0400 Body temperature 97.52 [degF] DR DEAN CALDWELL MD [facility] [place] 02-18-2024 15:10-0400 Respiratory Rate - Anes 0 br/min DR DEAN CALDWELL MD [facility] [place] 02-18-2024 15:05-0400 Respiratory Rate - Anes 0 br/min DR DEAN CALDWELL MD [facility] [place] 02-18-2024 15:00-0400 Respiratory Rate - Anes 15 br/min DR DEAN CALDWELL MD [facility] [place] 02-18-2024 11:01-0400 Body height 170.[address] DEAN CALDWELL MD [facility] [place] 02-18-2024 11:01-0400 Body temperature 97.88 [degF] DR DEAN CALDWELL MD [facility] [place] 02-18-2024 11:01-0400 Body weight [address] DEAN CALDWELL MD [facility] [place] 02-18-2024 11:01-0400 Heart rate 60 /min DR DEAN CALDWELL MD [facility] [place] 02-10-2024 09:39-0400 Body height 170.2 cm Ella Valdovinos PA-C Work Phone: [facility] 02-10-2024 09:39-0400 Body mass index (BMI) [Ratio] 31.01 kg/m2 Ella Valdovinos PA-C Work Phone: [facility] 02-10-2024 09:39-0400 Body weight 89.81 kg Ella Valdovinos PA-C Work Phone: [facility] 02-10-2024 09:39-0400 Diastolic blood pressure 72 mm[Hg] Ella Valdovinos PA-C Work Phone: [facility] 02-10-2024 09:39-0400 Heart rate 60 /min Ella Valdovinos PA-C Work Phone: [facility] 02-10-2024 09:39-0400 Respiratory rate 16 /min Ella Valdovinos PA-C Work Phone: [facility] 02-10-2024 09:39-0400 Systolic blood pressure 118 mm[Hg] Ella Valdovinos PA-C Work Phone: [facility] 01-27-2024 11:15-[address] DEAN CALDWELL MD [facility] [place] 01-27-2024 11:15-[address] DEAN Calero [facility] [place] 01-27-2024 11:15-0400 Body height 170.[address] DEAN CALDEWLL MD [facility] [place] 01-27-2024 11:15-0400 Body weight 88.[address] DEAN CALDWELL MD [facility] [place] 01-27-2024 11:15-0400 Body weight 30.59 kg/m2 DR DEAN CALDWELL MD [facility] [place] 01-27-2024 11:15-0400 Diastolic Blood Pressure Non-Invasive 87 mm[Hg] DR DEAN CALDWELL MD [facility] [place] 01-27-2024 11:15-0400 Heart rate 60 /min DR DEAN CALDWELL MD [facility] [place] 01-27-2024 11:15-0400 Respiratory rate 18 /min DR DEAN CALDWELL MD [facility] [place] 01-27-2024 11:15-0400 Systolic Blood Pressure Non-Invasive 151 mm[Hg] DR DEAN CALDWELL MD [facility] [place] 12-31-2023 10:59-0400 Body mass index (BMI) [Ratio] 31.32 kg/m2 Oniel Francis MD Work Phone: [facility] 12-31-2023 10:59-0400 Body temperature 97.5 [degF] Oniel Francis MD Work Phone: [facility] 12-31-2023 10:59-0400 Body weight 90.72 kg Oniel Francis MD Work Phone: [facility] 12-31-2023 10:59-0400 Diastolic blood pressure 82 mm[Hg] Oniel Francis MD Work Phone: [facility] 12-31-2023 10:59-0400 Heart rate 58 /min Oniel Francis MD Work Phone: [facility] 12-31-2023 10:59-0400 Respiratory rate 16 /min Oniel Francis MD Work Phone: [facility] 12-31-2023 10:59-0400 SaO2% (BldA) [Mass fraction] 95 % Oniel Francis MD Work Phone: [facility] 12-31-2023 10:59-0400 Systolic blood pressure 120 mm[Hg] Oniel Francis MD Work Phone: [facility] 12-23-2023 15:40-0400 Body height 170.2 cm Marj Mackey MD Work Phone: [facility] 12-23-2023 15:40-0400 Body mass index (BMI) [Ratio] 30.79 kg/m2 Marj Mackey MD Work Phone: [facility] 12-23-2023 15:40-0400 Body weight 89.18 kg Marj Mackey MD Work Phone: [facility] 12-23-2023 15:40-0400 Diastolic blood pressure 72 mm[Hg] Marj Mackey MD Work Phone: [facility] 12-23-2023 15:40-0400 Heart rate 57 /min Marj Mackey MD Work Phone: [facility] 12-23-2023 15:40-0400 SaO2% (BldA) [Mass fraction] 96 % Marj Mackey MD Work Phone: [facility] 12-23-2023 15:40-0400 Systolic blood pressure 119 mm[Hg] Marj Mackey MD Work Phone: [facility] 12-14-2023 11:17-0400 Body mass index (BMI) [Ratio] 31.46 kg/m2 Shamar Barlow APRN.[employer] Work Phone: [facility] 12-14-2023 11:17-0400 Body temperature 96.21 [degF] Shamar Barlow APRN.[employer] Work Phone: [facility] 12-14-2023 11:17-0400 Body weight 91.1 kg Shamar Barlow APRN.[employer] Work Phone: [facility] 12-14-2023 11:17-0400 Diastolic blood pressure 62 mm[Hg] Shamar Barlow APRN.[employer] Work Phone: [facility] 12-14-2023 11:17-0400 Heart rate 62 /min Shamar Barlow APRN.[employer] Work Phone: [facility] 12-14-2023 11:17-0400 Respiratory rate 16 /min Shamar Barlow APRN.[employer] Work Phone: [facility] 12-14-2023 11:17-0400 SaO2% (BldA) [Mass fraction] 98 % Shamar Barlow APRN.[employer] Work Phone: [facility] 12-14-2023 11:17-0400 Systolic blood pressure 120 mm[Hg] Shamar Barlow APRN.[employer] Work Phone: [facility] 09-11-2023 13:31-0500 Body height 170.2 cm Abby Pate MD Work Phone: [facility] 09-11-2023 13:31-0500 Body weight 92 kg Abby Pate MD Work Phone: [facility] 09-11-2023 13:31-0500 Diastolic blood pressure 78 mm[Hg] Abby Pate MD Work Phone: [facility] 09-11-2023 13:31-0500 Heart rate 66 /min Abby Pate MD Work Phone: [facility] 09-11-2023 13:31-0500 SaO2% (BldA) [Mass fraction] 93 % Abby Pate MD Work Phone: [facility] 09-11-2023 13:31-0500 Systolic blood pressure 139 mm[Hg] Abby Pate MD Work Phone: [facility] 06-24-2023 15:52-0500 Body weight 89.81 kg Marj Mackey MD Work Phone: [facility] 06-24-2023 15:52-0500 Diastolic blood pressure 67 mm[Hg] Marj Mackey MD Work Phone: [facility] 06-24-2023 15:52-0500 Heart rate 66 /min Marj Mackey MD Work Phone: [facility] 06-24-2023 15:52-0500 Respiratory rate 16 /min Marj Mackey MD Work Phone: [facility] 06-24-2023 15:52-0500 SaO2% (BldA) [Mass fraction] 95 % Marj Mackey MD Work Phone: [facility] 06-24-2023 15:52-0500 Systolic blood pressure 117 mm[Hg] Marj Mackey MD Work Phone: [facility] 03-20-2023 11:33-0400 Body height 168.9 cm Abby Pate MD Work Phone: [facility] 03-20-2023 11:33-0400 Body weight 85.28 kg Abby Pate MD Work Phone: [facility] 03-20-2023 11:33-0400 Diastolic blood pressure 87 mm[Hg] Abby Pate MD Work Phone: [facility] 03-20-2023 11:33-0400 Heart rate 63 /min Abby Pate MD Work Phone: [facility] 03-20-2023 11:33-0400 SaO2% (BldA) [Mass fraction] 96 % Abby Pate MD Work Phone: [facility] 03-20-2023 11:33-0400 Systolic blood pressure 135 mm[Hg] Abby Pate MD Work Phone: [facility] 10-29-2022 11:18-0400 Diastolic blood pressure 78 mm[Hg] Marj Mackey MD Work Phone: [facility] 10-29-2022 11:18-0400 Systolic blood pressure 128 mm[Hg] Marj Mackey MD Work Phone: [facility] 10-29-2022 10:47-0400 Body height 170.2 cm Marj Mackey MD Work Phone: [facility] 10-29-2022 10:47-0400 Body weight 92.08 kg Marj Mackey MD Work Phone: [facility] 10-29-2022 10:47-0400 Heart rate 60 /min Marj Mackey MD Work Phone: [facility] 06-22-2022 08:48-0500 Body temperature 97.2 [degF] Oniel Francis MD Work Phone: [facility] 06-22-2022 08:48-0500 Body weight 88.91 kg Oniel Francis MD Work Phone: [facility] 06-22-2022 08:48-0500 Diastolic blood pressure 82 mm[Hg] Oniel Francis MD Work Phone: [facility] 06-22-2022 08:48-0500 Heart rate 60 /min Oniel Francis MD Work Phone: [facility] 06-22-2022 08:48-0500 Respiratory rate 18 /min Oniel Francis MD Work Phone: [facility] 06-22-2022 08:48-0500 Systolic blood pressure 136 mm[Hg] Oniel Francis MD Work Phone: [facility] 04-30-2022 09:59-0400 Body height 170.2 cm Marj Mackey MD Work Phone: [facility] 04-30-2022 09:59-0400 Body weight 88.45 kg Marj Mackey MD Work Phone: [facility] 04-30-2022 09:59-0400 Diastolic blood pressure 80 mm[Hg] Marj Mackey MD Work Phone: [facility] 04-30-2022 09:59-0400 Heart rate 56 /min Marj Mackey MD Work Phone: [facility] 04-30-2022 09:59-0400 SaO2% (BldA) [Mass fraction] 94 % Marj Mackey MD Work Phone: [facility] 04-30-2022 09:59-0400 Systolic blood pressure 120 mm[Hg] Marj Mackey MD Work Phone: [facility] 04-23-2022 17:38-0400 Body temperature 97.9 [degF] Naun Monterroso MD Work Phone: [facility] 04-23-2022 17:38-0400 Body weight 88.45 kg Naun Monterroso MD Work Phone: [facility] 04-23-2022 17:38-0400 Diastolic blood pressure 78 mm[Hg] Naun Monterroso MD Work Phone: [facility] 04-23-2022 17:38-0400 Heart rate 57 /min Naun Monterroso MD Work Phone: [facility] 04-23-2022 17:38-0400 Respiratory rate 18 /min Naun Monterroso MD Work Phone: [facility] 04-23-2022 17:38-0400 SaO2% (BldA) [Mass fraction] 94 % Naun Monterroso MD Work Phone: [facility] 04-23-2022 17:38-0400 Systolic blood pressure 116 mm[Hg] Naun Monterroso MD Work Phone: [facility] 02-19-2022 09:59-0400 Body temperature 96.8 [degF] Chraan Abel [employer] Work Phone: [facility] 02-19-2022 09:59-0400 Body weight 86.91 kg Charan Abel [employer] Work Phone: [facility] 02-19-2022 09:59-0400 Diastolic blood pressure 82 mm[Hg] Charan Abel [employer] Work Phone: [facility] 02-19-2022 09:59-0400 Heart rate 56 /min Charan Abel [employer]ER.[employer] Work Phone: [facility] 02-19-2022 09:59-0400 Respiratory rate 20 /min Charan Abel [employer]ER.[employer] Work Phone: [facility] 02-19-2022 09:59-0400 SaO2% (BldA) [Mass fraction] 94 % Charan Abel [employer]ER.[employer] Work Phone: [facility] 02-19-2022 09:59-0400 Systolic blood pressure 136 mm[Hg] Charan Abel [employer] Work Phone: [facility] 12-15-2021 15:27-0400 Body height 168 cm Abby Pate MD Work Phone: [facility] 12-15-2021 15:27-0400 Body weight 87.09 kg Abby Pate MD Work Phone: [facility] 12-15-2021 15:27-0400 Diastolic blood pressure 73 mm[Hg] Abby Pate MD Work Phone: [facility] 12-15-2021 15:27-0400 Heart rate 61 /min Abby Pate MD Work Phone: [facility] 12-15-2021 15:27-0400 Systolic blood pressure 128 mm[Hg] Abby Pate MD Work Phone: [facility] Encounters Encounter Date Encounter Type Care Provider Facility Start: 01-18-2025 End: 01-18-[address] Oniel Francis MD Work Phone: [facility] Work Phone: Start: 01-18-2025 End: 01-18-[address] Aramis Larson MD [facility] Start: 12-02-2024 End: 12-02-2024 Chart abstracting Prudencio Barlow MA [facility] [place] Comment on above: Consult (Outside [facility] - Dr. Bowden ) Start: 11-02-2024 End: 11-02-2024 Refill Oniel Francis MD Work Phone: [facility] [place] Comment on above: Refill Request Start: 09-18-2024 End: 09-18-2024 Follow-up encounter Marj Mackey MD Work Phone: [facility] [place] Start: 09-18-2024 End: 09-23-2024 Telephone encounter Abby Pate MD Work Phone: Neurology Start: 09-17-2024 End: 09-17-2024 ambulatory MARJ MACKEY Facility:[facility] Start: 09-11-2024 End: 09-11-2024 ambulatory ABBY PATE Facility:[facility] Start: 09-11-2024 End: 09-11-2024 Patient encounter procedure Abby Pate MD Work Phone: Neurology Comment on above: 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); Insomnia, unspecified type; Chronic idiopathic constipation; RBD (REM behavioral disorder) Start: 09-01-2024 End: 09-01-2024 ambulatory MARJ MACKEY Facility:[facility] Start: 08-31-2024 End: 08-31-2024 ambulatory MARJ MACKEY Facility:[facility] Start: 08-31-2024 End: 08-31-2024 Patient encounter procedure Marj Mackey MD Work Phone: Cardiology Comment on above: 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 (Primary Dx); Aortic valve replaced; Mixed hyperlipidemia; Essential hypertension; Carotid stenosis, asymptomatic, bilateral; Hyperlipidemia, unspecified hyperlipidemia type; SAUCEDA (dyspnea on exertion) Start: 08-01-2024 End: 08-03-2024 Refill Zina Duran APRN.[employer] Work Phone: [facility] Comment on above: Med Change Request Start: 07-10-2024 End: 07-13-2024 Refill Oniel rFancis MD Work Phone: [facility] Comment on above: Refill Request Start: 06-25-2024 End: 06-25-2024 Refill Zina Duran APRN.[employer] Work Phone: [facility] Comment on above: Med Change Request Start: 05-30-2024 End: 06-01-2024 Refill Zina Duran APRN.[employer] Work Phone: [facility] Comment on above: Med Change Request Start: 05-08-2024 End: 05-11-2024 Telephone encounter Zina Duran APRN.[employer] Work Phone: [facility] Comment on above: problem scheduling u ltrasound Results Start: 05-07-2024 End: 05-07-2024 Patient encounter procedure Zina Duran APRN.[employer] Work Phone: [facility] Comment on above: Bilateral leg pain ( Primary Dx); Bilateral lower extremity edema; Benign localized prostatic hyperplasia with lower urinary tract symptoms (LUTS) Start: 05-07-2024 End: 05-08-2024 ambulatory Oniel Francis Facility:[facility] Start: 05-07-2024 End: 05-08-2024 Telephone encounter Zina Duran APRN.[employer] Work Phone: [facility] Comment on above: US DVT order Start: 04-07-2024 End: 04-07-2024 Telephone encounter Ella Valdovinos PA-C Work Phone: [facility] [place] Comment on above: Orders Start: 04-07-2024 End: 04-07-2024 ambulatory ONIEL FRANCIS Facility:[facility] Start: 04-07-2024 End: 04-07-2024 Patient encounter procedure Ella Valdovinos PA-C Work Phone: [facility] [place] Comment on above: Nocturia associated with benign prostatic hyperplasia (Primary Dx) Start: 03-11-2024 End: 03-11-2024 ambulatory ONIEL FRANCIS Facility:[facility] Start: 03-11-2024 End: 03-11-2024 Patient encounter procedure Abby Pate MD Work Phone: Neurology Comment on above: 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); Chronic idiopathic constipation; Insomnia, unspecified type Start: 02-24-2024 Telephone encounter Oniel Francis MD Work Phone: [facility] [place] Comment on above: Medication Question Start: 02-18-2024 End: 02-19-[address] DEAN CALDWELL MD Facility: Start: 02-18-2024 End: 02-19-[address] DEAN CALDWELL MD [facility] Start: 02-12-2024 Telephone encounter Oniel Francis MD Work Phone: [facility] [place] Comment on above: Requsting Records Start: 02-10-2024 Patient encounter procedure ELLA VALDOVINOS [facility] Start: 02-10-2024 End: 02-10-2024 Patient encounter procedure Ella Valdovinos PA-C Work Phone: [facility] [place] Comment on above: Medicare annual well ness visit, subsequent (Primary Dx); Advance directive discussed with patient; Arthritis of knee; Acquired hypothyroidism; Elevated blood sugar; B12 deficiency; Mixed hyperlipidemia; Essential hypertension; 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, - [place] [facility]) Start: 02-03-2024 Telephone encounter Ella neff PA-C Work Phone: [facility] [place] Comment on above: Results Start: 01-31-2024 End: 01-31-2024 Subsequent hospital visit by physician [facility] [place] Work Phone: Radiology Comment on above: URI, acute [J06.9] Start: 01-31-2024 End: 01-31-2024 ambulatory ONIEL FRANCIS Facility:[facility] Start: 01-27-2024 End: 01-27-[address] DEAN CALDWELL MD Facility:[facility] Start: 01-27-2024 End: 01-27-[address] DEAN CALDWELL MD [facility] Start: 01-27-2024 End: 01-27-[address] DEAN CALDWELL MD [facility] Start: 01-27-2024 End: 01-27-[address] DEAN CALDWELL MD Facility:[facility] Start: 12-31-2023 End: 12-31-2023 ambulatory ONIEL FRANCIS Facility:[facility] Start: 12-31-2023 End: 12-31-2023 Patient encounter procedure Oniel Francis MD Work Phone: [facility] [place] Comment on above: URI, acute (Primary Dx); X-ray of lung, abnormal; Mixed hyperlipidemia; 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; Elevated blood sugar; Essential hypertension; Acquired hypothyroidism; Vitamin D deficiency; B12 deficiency Start: 12-23-2023 End: 12-23-2023 ambulatory ONIEL FRANCIS Facility:[facility] Start: 12-23-2023 End: 12-23-2023 Patient encounter procedure Marj Mackey MD Work Phone: Cardiology Comment on above: 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 (Primary Dx); Aortic valve replaced; Essential hypertension; Mixed hyperlipidemia; Carotid stenosis, asymptomatic, bilateral; Screening for ischemic heart disease; Pre-operative cardiovascular examination Start: 12-23-2023 End: 12-23-2023 Patient encounter status Marj Mackey MD Work Phone: [facility] Start: 12-16-2023 Telephone encounter Oniel Francis MD Work Phone: [facility] [place] Comment on above: Appointment Start: 12-14-2023 End: 12-14-2023 Subsequent hospital visit by physician [facility] [place] Work Phone: Radiology Comment on above: Acute cough [R05.1] Start: 12-14-2023 End: 12-14-2023 ambulatory ONIEL A TITO Facility:[facility] Start: 12-14-2023 End: 12-14-2023 Patient encounter procedure Shamar Barlow APRN.CNP Work Phone: [facility] Comment on above: Acute cough (Primary Dx) Start: 11-12-2023 ambulatory Lelia Soni [facility] [place] Comment on above: Population Health Na vigation Outreach ([place] [facility] ) Start: 09-11-2023 End: 09-11-2023 Patient encounter procedure Abby Pate MD Work Phone: Neurology Comment on above: 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); Chronic idiopathic constipation; Insomnia, unspecified type Start: 06-24-2023 End: 06-24-2023 Patient encounter procedure Marj Mackey MD Work Phone: Cardiology Comment on above: 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 (Primary Dx); Aortic valve replaced; Essential hypertension; Hyperlipidemia, unspecified hyperlipidemia type; Mixed hyperlipidemia; Carotid stenosis, asymptomatic, bilateral; SAUCEDA (dyspnea on exertion) Start: 03-20-2023 End: 03-20-2023 Patient encounter procedure Abby Pate MD Work Phone: Neurology Comment on above: Parkinson disease (H CC) (Primary Dx); Chronic idiopathic constipation; RBD (REM behavioral disorder) Start: 03-19-2023 Refill Abby Pate MD Work Phone: [facility] Comment on above: Refill Request (Carb idopa-Levodopa) Start: 12-25-2022 Patient encounter procedure Abby Pate MD Work Phone: [facility] Work Phone: Start: 12-12-2022 Telephone encounter Marj Mackey MD Work Phone: Cardiology Comment on above: Patient Update Start: 11-08-2022 Refill Oniel smith MD Work Phone: Family [facility] [place] Comment on above: Refill Request Start: 11-07-2022 Telephone encounter Marj Mackey MD Work Phone: Cardiology Comment on above: Patient Question Start: 10-29-2022 End: 10-29-2022 Patient encounter procedure Marj Mackey MD Work Phone: Cardiology Comment on above: 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 (Primary Dx); Aortic valve replaced; Essential hypertension; Mixed hyperlipidemia; Carotid stenosis, asymptomatic, bilateral; Hyperlipidemia, unspecified hyperlipidemia type Start: 07-13-2022 Refill Abby Pate MD Work Phone: [facility] Neurology Comment on above: Refill Request Start: 06-25-2022 Telephone encounter Oniel Francis MD Work Phone: [facility] [place] Comment on above: Results Start: 06-22-2022 End: 06-22-2022 Patient encounter procedure Oniel Francis MD Work Phone: [facility] [place] Comment on above: Essential hypertensi on (Primary Dx); Mixed hyperlipidemia; Elevated blood sugar; 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; Carotid stenosis, asymptomatic, bilateral; Acquired hypothyroidism; Vitamin D deficiency; Obesity, Class I, BMI 30-34.9; B12 deficiency; Viral URI with cough; Medication management Start: 06-18-2022 End: 06-18-2022 [facility] Abby Pate MD Work Phone: Neurology Comment on above: Parkinson disease (H CC) (Primary Dx); Chronic idiopathic constipation; RBD (REM behavioral disorder) Start: 05-23-2022 End: 05-23-2022 ambulatory Mi Nurse Work Phone: [facility] [place] Start: 05-11-2022 Refill Ella Russo on PA-C Work Phone: [facility] [place] Comment on above: Refill Request Start: 04-30-2022 End: 04-30-2022 Patient encounter procedure Marj Mackey MD Work Phone: Cardiology Comment on above: 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 (Primary Dx); Aortic valve replaced; Essential hypertension; Mixed hyperlipidemia; Carotid stenosis, asymptomatic, bilateral; Hyperlipidemia, unspecified hyperlipidemia type Start: 04-23-2022 End: 04-23-2022 Orders Only Marj Mackey MD Work Phone: Cardiology Comment on above: Aortic valve replace d (Primary Dx) Olecranon bursitis o f right elbow (Primary Dx) Start: 02-19-2022 End: 02-19-2022 Patient encounter procedure Charan Roman APRN.CNP Work Phone: [facility] Comment on above: Rash (Primary Dx) Start: 12-15-2021 End: 12-15-2021 Patient encounter procedure Abby Pate MD Work Phone: Neurology Comment on above: Parkinson disease (H CC) (Primary Dx); Chronic idiopathic constipation; RBD (REM behavioral disorder) Start: 12-12-2021 Patient encounter procedure Abby Pate MD Work Phone: [facility] Work Phone: Start: 12-01-2021 ambulatory Oniel smith MD Work Phone: [facility] [place] Start: 12-01-2021 Patient encounter procedure Oniel Francis MD Work Phone: [facility] [place] Comment on above: office visit Start: 11-07-2021 Refill Ella Russo on PA-C Work Phone: [facility] [place] Comment on above: Refill Request Start: 12-07-2020 Patient encounter procedure Ella Valdovinos PA-C Work Phone: [facility] Work Phone: Start: 08-26-2018 End: 08-26-2018 Evaluation and management of inpatient ARLENE Meredith Facility:[facility] Start: 01-17-2018 Patient encounter procedure KIZZY BAILEY Facility:[facility] Start: 12-31-2017 Patient encounter procedure KIZZY BAILEY Facility:[facility] Procedures Date Procedure Procedure Detail Performing Clinician Start: 02-18-[address] DEAN CALDWELL MD Comment on above: LEFT Start: 02-18-[address] DEAN CALDWELL MD Comment on above: LEFT Start: 02-10-2024 Adult depression screening assessment Abby Pate MD Work Phone: Start: 01-31-2024 Radiologic exam ches t 2 views Oniel Francis MD Work Phone: Start: 12-23-2023 Ecg routine ecg w/le ast 12 lds i&r only [facility] Provider Start: 12-14-2023 Radiologic exam ches t 2 views Shamar Barlow APRN.CNP Work Phone: Start: 05-23-2022 INFLUENZA SEASONAL QUADRIVALENT HIGH DOSE AGE 65+ Oniel Francis MD Work Phone: Start: 12-12-2021 Adult depression screening assessment Abby Pate MD Work Phone: Start: 06-08-2021 Adult depression screening assessment Ella Valdovinos PA-C Work Phone: Start: 10-03-2018 History of coronary artery bypass grafting H/O coronary artery bypass surgery Dr. 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 Ella Valdovinos PA-C Work Phone: Cholecystectomy DR DEAN RAMIREZ MD Colonoscopy DR DEAN Felix MD Coronary artery bypa ss grafts x 4 DR DEAN CALDWELL MD Tonsillectomy and adenoidectomy DR DEAN CALDWELL MD Plan of Treatment Date Care Activity Detail Author Start: 12-04-2027 Urine microalbumin profile [facility] Start: 09-01-2027 [facility] Start: 05-07-2027 [facility] Start: 01-30-2027 [facility] Start: 12-25-2025 DIABETES SCREEN DIABETES SCREEN [facility] Start: 12-25-2025 [facility] Start: 09-01-2025 Hepatitis B surface antibody level LDL Cholesterol [facility] Start: 06-22-2025 DIABETES SCREEN DIABETES SCREEN [facility] Start: 05-24-2025 End: 05-24-2025 Patient encounter procedure 05/24/2025 9:20 AM EDT Office Visit Cardiology [address] [place] [address] Marj Mackey MD [address] [facility] [address] [place] [address] 6 month follow up Cardiology Comment on above: 6 month follow up Start: 03-24-2025 End: 03-24-2025 Patient encounter procedure 03/24/2025 3:30 PM EDT Office Visit Neurology [address] [place] [address] [place] [phone] Abby Pate MD [address] [facility] [address] [place], [place] [id number] six month follow up Neurology Comment on above: six month follow up Start: 03-12-2025 End: 03-12-2025 Patient encounter procedure 03/12/2025 3:30 PM EDT Office Visit Neurology [address] [phone] Abby Pate MD [address] [place] [address] six month follow up Neurology Comment on above: six month follow up Start: 02-09-2025 Anxiety Screening Anxiety Screening [facility] Start: 02-09-2025 Depression Screening Depression Scre ening [facility] Start: 02-08-2025 End: 02-08-2025 Patient encounter procedure [facility] [place] Comment on above: Medicare Wellness Start: 02-02-2025 End: 05-04-2025 25-hydroxyvitamin D3 [Mass/volume] in Serum or Plasma VITAMIN D 25 HYDROXY Lab Routine Vitamin D deficiency Expected: 02/02/2025, Expires: 05/04/2025 [facility] Comment on above: Expected: 02/02/2025 , Expires: 05/04/2025 Start: 02-02-2025 End: 05-04-2025 CBC W Auto Differential panel - Blood COMPLETE BLOOD COUNT AND DIFFERENTIAL Lab Routine Essential hypertension B12 deficiency Elevated blood sugar Expected: 02/02/2025, Expires: 05/04/2025 [facility] Comment on above: Expected: 02/02/2025 , Expires: 05/04/2025 Start: 02-02-2025 End: 05-04-2025 Cobalamin (Vitamin B12) [Mass/volume] in Serum or Plasma VITAMIN B12 Lab Routine B12 deficiency Expected: 02/02/2025, Expires: 05/04/2025 [facility] Comment on above: Expected: 02/02/2025 , Expires: 05/04/2025 Start: 02-02-2025 End: 05-04-2025 Comprehensive metabolic 2000 panel - Serum or Plasma COMPREHENSIVE METABOLIC PANEL Lab Routine Essential hypertension Expected: 02/02/2025, Expires: 05/04/2025 [facility] Comment on above: Expected: 02/02/2025 , Expires: 05/04/2025 Start: 02-02-2025 End: 05-04-2025 Hemoglobin A1c in Blood HEMOGLOBIN A1C Lab Routine Elevated blood sugar Expected: 02/02/2025, Expires: 05/04/2025 [facility] Comment on above: Expected: 02/02/2025 , Expires: 05/04/2025 Start: 02-02-2025 End: 05-04-2025 LIPID PANEL, NONFASTING LIPID PANEL, NONFASTING Lab Routine Mixed hyperlipidemia Expected: 02/02/2025, Expires: 05/04/2025 [facility] Work Phone: Comment on above: Expected: 02/02/2025 , Expires: 05/04/2025 Start: 02-02-2025 End: 05-04-2025 Thyrotropin [Units/volume] in Serum or Plasma THYROID STIMULATING HORMONE Lab Routine Acquired hypothyroidism Expected: 02/02/2025, Expires: 05/04/2025 [facility] Comment on above: Expected: 02/02/2025 , Expires: 05/04/2025 Start: 02-02-2025 End: 05-04-2025 Urinalysis complete panel - Urine URINALYSIS, WITH MICROSCOPIC Lab Routine Essential hypertension Expected: 02/02/2025, Expires: 05/04/2025 [facility] Comment on above: Expected: 02/02/2025 , Expires: 05/04/2025 Start: 01-30-2025 Hepatitis B surface antibody level LDL Cholesterol [facility] Start: 01-18-2025 X-ray of lumbar spin e, two or three views Lumbar Spine 2 or 3 Views [facility] Start: 12-12-2024 DIABETES SCREEN DIABETES SCREEN [facility] Start: 09-17-2024 End: 09-17-2024 Patient encounter procedure 09/17/2024 9:40 AM EST Office Visit Cardiology [address] [place] [address] Coronary 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quechan coronary artery of quechan heart without... 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 Start: 09-11-2024 End: 09-11-2024 Patient encounter procedure 09/11/2024 3:00 PM EST Office Visit Neurology [address] [place] [phone] Abby Pate MD [address] [address] Six month follow up Neurology Comment on above: Six month follow up Start: 09-01-2024 End: 09-01-2024 ambulatory 09/01/2024 7:45 AM EST Results Only [facility] [address] [place] [address] Labs [facility] Comment on above: Labs Start: 08-31-2024 End: 08-31-2024 Patient encounter procedure 08/31/2024 3:40 PM EST Office Visit Cardiology [address] [place] [phone] Marj Mackey MD [address] [place], [place] [phone] 6 month follow up Cardiology Comment on above: 6 month follow up Start: 08-31-2024 End: 11-30-2024 Comprehensive metabolic 2000 panel - Serum or Plasma COMPREHENSIVE METABOLIC PANEL Lab Routine 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 Hyperlipidemia, unspecified hyperlipidemia type Expected: 08/31/2024, Expires: 11/30/2024 [facility] Comment on above: Expected: 08/31/2024 , Expires: 11/30/2024 Start: 08-31-2024 End: 11-30-2024 Lipid 1996 panel - Serum or Plasma LIPID PANEL BASIC Lab Routine Hyperlipidemia, unspecified hyperlipidemia type Expected: 08/31/2024, Expires: 11/30/2024 [facility] Comment on above: Expected: 08/31/2024 , Expires: 11/30/2024 Start: 08-31-2024 End: 11-30-2024 Natriuretic peptide.B prohormone N-Terminal [Mass/volume] in Serum or Plasma NT PRO BNP Lab Routine SAUCEDA (dyspnea on exertion) Expected: 08/31/2024, Expires: 11/30/2024 [facility] Comment on above: Expected: 08/31/2024 , Expires: 11/30/2024 Start: 08-05-2024 Advance Directive Discussion Advance Directive Discussion [facility] Start: 06-09-2024 DIABETES SCREEN DIABETES SCREEN [facility] Start: 05-08-2024 End: 05-08-2024 Patient encounter procedure 05/08/2024 1:00 PM EDT Appointment [facility] [address] [place] [address] Bilateral leg pain [M79.604, M79.605] [facility] Comment on above: Bilateral leg pain [ M79.604, M79.605] Start: 05-07-2024 End: 08-06-2024 CBC W Auto Differential panel - Blood [facility] Work Phone: Comment on above: Expected: 05/07/2024 , Expires: 08/06/2024 Start: 05-07-2024 End: 08-06-2024 Comprehensive metabolic 2000 panel - Serum or Plasma [facility] Comment on above: Expected: 05/07/2024 , Expires: 08/06/2024 Start: 05-07-2024 End: 08-06-2024 Magnesium [Mass/volume] in Serum or Plasma [facility] Comment on above: Expected: 05/07/2024 , Expires: 08/06/2024 Start: 05-07-2024 End: 08-06-2024 Phosphate [Mass/volume] in Serum or Plasma [facility] Comment on above: Expected: 05/07/2024 , Expires: 08/06/2024 Start: 04-07-2024 End: 04-07-2024 Patient encounter procedure 04/07/2024 10:40 AM EDT Office Visit [facility] [place] [address] [place], [place] [phone] Ella Valdovinos PA-C [address] [place], [place] [phone] 8 wk follow up, noctural urination/med follow upo [facility] [place] Comment on above: 8 wk follow up, noct ural urination/med follow upo Start: 04-05-2024 Covid-19 Vaccine ( season) Covid-19 Vaccine ( season) [facility] Start: 04-05-2024 Covid-19 Vaccine ( season) Covid-19 Vaccine () [facility] Start: 04-05-2024 Influenza vaccination [facility] Start: 03-11-2024 End: 03-11-2024 Patient encounter procedure 03/11/2024 1:00 PM EDT Office Visit Neurology [address] [place] [phone] Abby Pate MD [address] [address] 6 month follow up Neurology Comment on above: 6 month follow up Start: 02-10-2024 End: 02-10-2024 Patient encounter procedure 02/10/2024 9:40 AM EDT Office Visit [facility] [address] [place] [address] Ella Valdovinos PA-C [address] [facility] [address] Medicare Wellness [facility] [place] Comment on above: Medicare Wellness Start: 01-30-2024 End: 01-30-2024 Patient encounter procedure 01/30/2024 9:00 AM EDT Office Visit [facility] [address] [place] [address] Oniel Francis MD [address] [facility] [place] [address] Medicare Wellness [facility] [place] Comment on above: Medicare Wellness Start: 01-17-2024 End: 04-17-2024 25-hydroxyvitamin D3 [Mass/volume] in Serum or Plasma VITAMIN D 25 HYDROXY Lab Routine Vitamin D deficiency Expected: 01/17/2024, Expires: 04/17/2024 [facility] Comment on above: Expected: 01/17/2024 , Expires: 04/17/2024 Start: 01-17-2024 End: 04-17-2024 CBC W Auto Differential panel - Blood COMPLETE BLOOD COUNT AND DIFFERENTIAL Lab Routine Acquired hypothyroidism Expected: 01/17/2024, Expires: 04/17/2024 [facility] Comment on above: Expected: 01/17/2024 , Expires: 04/17/2024 Start: 01-17-2024 End: 04-17-2024 Cobalamin (Vitamin B12) [Mass/volume] in Serum or Plasma VITAMIN B12 Lab Routine B12 deficiency Expected: 01/17/2024, Expires: 04/17/2024 [facility] Comment on above: Expected: 01/17/2024 , Expires: 04/17/2024 Start: 01-17-2024 End: 04-17-2024 Comprehensive metabolic 2000 panel - Serum or Plasma COMPREHENSIVE METABOLIC PANEL Lab Routine Mixed hyperlipidemia 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 Elevated blood sugar Essential hypertension Expected: 01/17/2024, Expires: 04/17/2024 [facility] Comment on above: Expected: 01/17/2024 , Expires: 04/17/2024 Start: 01-17-2024 End: 04-17-2024 Hemoglobin A1c in Blood HEMOGLOBIN A1C Lab Routine Elevated blood sugar Expected: 01/17/2024, Expires: 04/17/2024 [facility] Comment on above: Expected: 01/17/2024 , Expires: 04/17/2024 Start: 01-17-2024 End: 04-17-2024 LIPID PANEL, NONFASTING LIPID PANEL, NONFASTING Lab Routine Mixed hyperlipidemia 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 Essential hypertension Expected: 01/17/2024, Expires: 04/17/2024 [facility] Comment on above: Expected: 01/17/2024 , Expires: 04/17/2024 Start: 01-17-2024 End: 04-17-2024 Thyrotropin [Units/volume] in Serum or Plasma THYROID STIMULATING HORMONE Lab Routine Acquired hypothyroidism Expected: 01/17/2024, Expires: 04/17/2024 [facility] Comment on above: Expected: 01/17/2024 , Expires: 04/17/2024 Start: 01-17-2024 End: 04-17-2024 Urinalysis complete panel - Urine URINALYSIS, WITH MICROSCOPIC Lab Routine Mixed hyperlipidemia Essential hypertension Expected: 01/17/2024, Expires: 04/17/2024 [facility] Comment on above: Expected: 01/17/2024 , Expires: 04/17/2024 Start: 01-14-2024 End: 01-29-2025 XR Chest PA and Lateral XR CHEST 2V FRONTAL/LAT Radiology Routine URI, acute X-ray of lung, abnormal Expected: 01/14/2024, Expires: 01/29/2025 [facility] Work Phone: Comment on above: Expected: 01/14/2024 , Expires: 01/29/2025 Start: 12-31-2023 End: 12-31-2023 Patient encounter procedure 12/31/2023 10:40 AM EDT Office Visit Family [facility] [place] [address] [place] [address] Oniel Francis MD [address] [place] [address] 12/13 EC Follow Up Family [facility] [place] Comment on above: 12/13 EC Follow Up Start: 12-26-2023 Hepatitis B surface antibody level LDL CHOLESTEROL [facility] Start: 12-23-2023 End: 12-23-2023 Patient encounter procedure 12/23/2023 3:40 PM EDT Office Visit Cardiology [address] [place] [phone] Marj Mackey MD [address] [place], [place] [phone] 6 month follow up Cardiology Comment on above: 6 month follow up Start: 10-30-2023 BP CONTROLLED (<130/80) BP CONTROLLE D (<130/80) [facility] Start: 09-27-2023 Covid-19 Vaccine () Covid-19 Vaccine () [facility] Start: 08-05-2023 Advance Directive Discussion Advance Directive Discussion [facility] Start: 08-05-2023 Behavioral Health Screening Behavioral Health Screening [facility] Start: 08-05-2023 Depression Assessment Depression Ass essment [facility] Start: 06-22-2023 ANNUAL PCP TEAM HOSPITALITY JOB TITLES SHANDA DISEASE VISIT ANNUAL PCP TEAM CHRONIC DISEASE VISIT [facility] Start: 06-22-2023 BP CONTROLLED (<130/80) BP CONTROLLE D (<130/80) [facility] Start: 06-14-2023 Hepatitis B surface antibody level LDL CHOLESTEROL [facility] Start: 04-23-2023 BP CONTROLLED (<130/80) BP CONTROLLE D (<130/80) [facility] Start: 04-05-2023 Influenza vaccination [facility] Start: 12-15-2022 BP CONTROLLED (<130/80) BP CONTROLLE D (<130/80) [facility] Start: 12-12-2022 Adult depression scr eening assessment DEPRESSION SCREENING [facility] Start: 12-12-2022 ANNUAL PCP TEAM HOSPITALITY JOB TITLES SHANDA DISEASE VISIT ANNUAL PCP TEAM CHRONIC DISEASE VISIT [facility] Start: 12-12-2022 Hepatitis B surface antibody level LDL CHOLESTEROL [facility] Start: 12-07-2022 End: 02-06-2023 25-hydroxyvitamin D3 [Mass/volume] in Serum or Plasma VITAMIN D 25 HYDROXY Lab Routine Vitamin D deficiency Expected: 12/07/2022, Expires: 02/06/2023 [facility] Work Phone: Comment on above: Expected: 12/07/2022 , Expires: 02/06/2023 Start: 12-07-2022 End: 02-06-2023 CBC W Auto Differential panel - Blood CBC + DIFF Lab Routine Acquired hypothyroidism Medication management Expected: 12/07/2022, Expires: 02/06/2023 [facility] Work Phone: Comment on above: Expected: 12/07/2022 , Expires: 02/06/2023 Start: 12-07-2022 End: 02-06-2023 Cobalamin (Vitamin B12) [Mass/volume] in Serum or Plasma VITAMIN B12 BLOOD Lab Routine B12 deficiency Expected: 12/07/2022, Expires: 02/06/2023 [facility] Work Phone: Comment on above: Expected: 12/07/2022 , Expires: 02/06/2023 Start: 12-07-2022 End: 02-06-2023 Comprehensive metabolic 2000 panel - Serum or Plasma COMP METABOLIC PANEL Lab Routine Mixed hyperlipidemia Essential hypertension 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 Expected: 12/07/2022, Expires: 02/06/2023 [facility] Work Phone: Comment on above: Expected: 12/07/2022 , Expires: 02/06/2023 Start: 12-07-2022 End: 02-06-2023 Hemoglobin A1c in Blood HGB A1C Lab Routine Elevated blood sugar Expected: 12/07/2022, Expires: 02/06/2023 [facility] Work Phone: Comment on above: Expected: 12/07/2022 , Expires: 02/06/2023 Start: 12-07-2022 End: 02-06-2023 LIPID PANEL, NONFASTING LIPID PANEL, NONFASTING Lab Routine Mixed hyperlipidemia Essential hypertension 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 Expected: 12/07/2022, Expires: 02/06/2023 [facility] Work Phone: Comment on above: Expected: 12/07/2022 , Expires: 02/06/2023 Start: 12-07-2022 End: 02-06-2023 Thyrotropin [Units/volume] in Serum or Plasma TSH BLD Lab Routine Acquired hypothyroidism Expected: 12/07/2022, Expires: 02/06/2023 [facility] Work Phone: Comment on above: Expected: 12/07/2022 , Expires: 02/06/2023 Start: 12-07-2022 End: 02-06-2023 Urinalysis complete panel - Urine URINALYSIS, WITH MICROSCOPIC Lab Routine Mixed hyperlipidemia Essential hypertension Expected: 12/07/2022, Expires: 02/06/2023 [facility] Work Phone: Comment on above: Expected: 12/07/2022 , Expires: 02/06/2023 Start: 10-06-2022 COVID-19 VACCINE (6 - Moderna series) COVID-19 VACCINE (6 - Moderna series) [facility] Start: 08-14-2022 BP CONTROLLED (<130/80) BP CONTROLLE D (<130/80) [facility] Start: 08-05-2022 ADVANCE DIRECTIVE DISCUSSION ADVANCE DIRECTIVE DISCUSSION [facility] Start: 08-05-2022 DEPRESSION ASSESSMENT DEPRESSION ASS ESSMENT [facility] Start: 06-09-2022 ANNUAL PCP TEAM HOSPITALITY JOB TITLES SHANDA DISEASE VISIT ANNUAL PCP TEAM CHRONIC DISEASE VISIT [facility] Start: 06-09-2022 Hepatitis B surface antibody level LDL CHOLESTEROL [facility] Start: 06-08-2022 Adult depression scr eening assessment DEPRESSION SCREENING [facility] Start: 04-30-2022 End: 06-30-2022 Alanine aminotransferase [Enzymatic activity/volume] in Serum or Plasma ALT/SGPT Lab Routine Mixed hyperlipidemia Expected: 04/30/2022, Expires: 06/30/2022 [facility] Work Phone: Comment on above: Expected: 04/30/2022 , Expires: 06/30/2022 Start: 04-30-2022 End: 06-30-2022 Aspartate aminotransferase [Enzymatic activity/volume] in Serum or Plasma AST/SGOT BLD Lab Routine Mixed hyperlipidemia Expected: 04/30/2022, Expires: 06/30/2022 [facility] Work Phone: Comment on above: Expected: 04/30/2022 , Expires: 06/30/2022 Start: 04-30-2022 End: 06-30-2022 Lipid 1996 panel - Serum or Plasma LIPID PANEL BASIC Lab Routine Mixed hyperlipidemia Expected: 04/30/2022, Expires: 06/30/2022 [facility] Work Phone: Comment on above: Expected: 04/30/2022 , Expires: 06/30/2022 Start: 04-20-2022 COVID-19 VACCINE (5 - Booster for Moderna series) COVID-19 VACCINE (5 - Booster for Moderna series) [facility] Start: 04-05-2022 Influenza vaccination INFLUENZA (#1) [facility] Start: 10-02-2021 COVID-19 VACCINE (4 - Booster for Moderna series) COVID-19 VACCINE (4 - Booster for Moderna series) [facility] Start: 08-05-2021 ADVANCE DIRECTIVE DISCUSSION ADVANCE DIRECTIVE DISCUSSION [facility] Start: 08-05-2021 DEPRESSION ASSESSMENT DEPRESSION ASS ESSMENT [facility] Start: 06-22-2020 BP CONTROLLED (<130/80) BP CONTROLLE D (<130/80) [facility] End: 04-23-2023 ECG COMPLETE ECG COMPLETE ECG Routine Aortic valve replaced 1 Occurrences starting 04/23/2022 until 04/23/2023 [facility] Work Phone: Comment on above: 1 Occurrences starti ng 04/23/2022 until 04/23/2023 ECG COMPLETE ECG COMPLETE ECG Routine Essential hypertension Hyperlipidemia, unspecified hyperlipidemia type Ordered: 06/18/2023 [facility] Work Phone: Comment on above: Ordered: 06/18/2023 ECG COMPLETE ECG COMPLETE ECG Routine Screening for ischemic heart disease Ordered: 12/18/2023 [facility] Work Phone: Comment on above: Ordered: 12/18/2023 ECG COMPLETE ECG COMPLETE ECG 12/23/2023 3:45 PM EDT [facility] End: 06-24-2024 Echocardiography ECHO Cardiology Routine Aortic valve replaced SAUCEDA (dyspnea on exertion) 1 Occurrences starting 06/24/2023 until 06/24/2024 [facility] Work Phone: Comment on above: 1 Occurrences starti ng 06/24/2023 until 06/24/2024 End: 08-31-2025 Echocardiography ECHO Cardiology Routine 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 Aortic valve replaced 1 Occurrences starting 08/31/2024 until 08/31/2025 [facility] Work Phone: Comment on above: 1 Occurrences starti ng 08/31/2024 until 08/31/2025 End: 04-30-2023 US CAROTID ARTERIES [facility] US CAROTID ARTERIES [facility] Vascular Lab Routine Carotid stenosis, asymptomatic, bilateral 1 Occurrences starting 04/30/2022 until 04/30/2023 [facility] Work Phone: Comment on above: 1 Occurrences starti ng 04/30/2022 until 04/30/2023 End: 06-24-2024 US CAROTID ARTERIES [facility] US CAROTID ARTERIES [facility] Vascular Lab Routine Carotid stenosis, asymptomatic, bilateral 1 Occurrences starting 06/24/2023 until 06/24/2024 [facility] Work Phone: Comment on above: 1 Occurrences starti ng 06/24/2023 until 06/24/2024 End: 06-06-2025 US Lower extremity vein - bilateral US DVT LOWER BILATERAL Radiology STAT Bilateral leg pain Bilateral lower extremity edema 1 Occurrences starting 05/07/2024 until 06/06/2025 [facility] Comment on above: 1 Occurrences starti ng 05/07/2024 until 06/06/2025 [facility] Immunizations Immunization Date Immunization Notes Care Provider Fa [facility] 06-14-2023 respiratory syncytia l virus (RSV) vaccine, adjuvanted (AREXVY) Ella Valdovinos PA-C Work Phone: [facility] 06-14-2023 RSV vaccine preF3, recombinant DR DEAN CALDWELL MD [facility] 05-27-2023 SARS-CoV-2 (COVID-19 ) [id number] DR DEAN CALDWELL MD [facility] 06-08-2022 SARS-CoV-2 (CV19)[id number] DEAN CALDWELL MD [facility] 05-23-2022 influenza, high-dose , quadrivalent vaccine (FLUZONE HIGH DOSE QUADRIVALENT) Mi Nurse Work Phone: [facility] Work Phone: 05-23-2022 influenza virus vacc ine, unspecified formulation Marj Mackey MD Work Phone: [facility] [place] 02-23-2022 SARS-CoV-2 (COVID-19 ) mRNA-[address] DEAN CALDWELL MD [facility] Comment on above: Result Comment: 2023: BOOSTER #2 12-12-2021 pneumococcal polysaccharide vaccine, 23 valent Abby Pate MD Work Phone: [facility] 06-09-2021 influenza virus vacc ine, unspecified formulation DR DEAN CALDWELL MD [facility] 06-09-2021 influenza, high-dose , quadrivalent vaccine (FLUZONE HIGH DOSE QUADRIVALENT) Ella Valdovinos PA-C Work Phone: [facility] 06-01-2021 SARS-CoV-2 (COVID-19 ) mRNA-[address] DEAN CALDWELL MD [facility] 09-28-2020 COVID-19 vaccine, fu ll dose (MODERNA) Ella Valdovinos PA-C Work Phone: [facility] Work Phone: 08-31-2020 COVID-19 vaccine, fu ll dose (MODERNA) Ella Valdovinos PA-C Work Phone: [facility] Work Phone: 06-22-[address] DEAN CALDWELL MD [facility] 06-21-2020 zoster vaccine recombinant Ella Valdovinos PA-C Work Phone: [facility] 05-25-2020 influenza virus vacc ine, unspecified formulation DR DEAN CALDWELL MD [facility] 05-25-2020 influenza, high-dose , quadrivalent vaccine (FLUZONE HIGH DOSE QUADRIVALENT) Ella Valdovinos PA-C Work Phone: [facility] Work Phone: 04-26-2020 zoster vaccine recombinant Ella Valdovinos PA-C Work Phone: [facility] 06-09-2019 influenza virus vacc ine, unspecified formulation DR DEAN CALDWELL MD [facility] 05-14-2018 influenza virus vacc ine, unspecified formulation DR DEAN CALDWELL MD [facility] 12-03-2017 diphtheria, tetanus toxoids and acellular pertussis vaccine, unspecified formulation Ella Valdovinos PA-C Work Phone: [facility] 12-03-2017 tetanus toxoid, redu lorraine diphtheria toxoid, and acellular pertussis vaccine, adsorbed Ella Valdovinos PA-C Work Phone: [facility] 06-19-2017 influenza virus vacc ine, unspecified formulation DR DEAN CALDWELL MD [facility] 06-19-2017 influenza, injectabl e, quadrivalent, contains preservative Ella HAAS-C Work Phone: [facility] 05-25-2016 influenza virus vacc ine, unspecified formulation DR DEAN CALDWELL MD [facility] 05-25-2016 influenza, high dose seasonal, preservative-free Ella HAAS-C Work Phone: [facility] 12-27-2015 pneumococcal polysaccharide vaccine, 23 valent Ella HAAS-C Work Phone: [facility] 05-16-2015 influenza virus vacc ine, unspecified formulation Ella HAAS-C Work Phone: [facility] Work Phone: 12-22-2014 pneumococcal conjuga te vaccine, 13 valent Ella Valdovinos PA-C Work Phone: [facility] Work Phone: 10-22-2014 tetanus toxoid, redu lorraine diphtheria toxoid, and acellular pertussis vaccine, adsorbed Ella Valdovinos PA-C Work Phone: [facility] Work Phone: 10-18-2014 pneumococcal conjuga te vaccine, 13 valent Ella Valdovinos PA-C Work Phone: [facility] 05-12-2014 influenza virus vacc ine, unspecified formulation DR DEAN CALDWELL MD [facility] 05-12-2014 influenza, seasonal, injectable Ella Valdovinos PA-C Work Phone: [facility] 05-16-2013 influenza virus vacc ine, unspecified formulation Ella Valdovinos PA-C Work Phone: [facility] 05-24-2012 influenza virus vacc ine, unspecified formulation Ella Valdovinos PA-C Work Phone: [facility] 06-22-2011 influenza virus vacc ine, unspecified formulation Ella Valdovinos PA-C Work Phone: [facility] 05-25-2010 influenza virus vacc ine, unspecified formulation Ella Valdovinos PA-C Work Phone: [facility] Work Phone: 05-24-2009 influenza virus vacc ine, unspecified formulation Ella Valdovinos PA-C Work Phone: [facility] Work Phone: 05-24-2009 zoster vaccine, live Ella Valdovinos PA-C Work Phone: [facility] Work Phone: 06-10-2007 influenza virus vacc ine, unspecified formulation Ella Valdovinos PA-C Work Phone: [facility] 2006 pneumococcal polysaccharide vaccine, 23 valent Ella Valdovinos PA-C Work Phone: [facility] Work Phone: 07-05-2005 influenza virus vacc ine, unspecified formulation Ella Valdovinos PA-C Work Phone: [facility] Work Phone: 06-30-2005 diphtheria and tetan us toxoids, adsorbed for pediatric use Ella Valdovinos PA-C Work Phone: [facility] Work Phone: Payers Date Payer Category Payer Self-pay 2019 Medicare (Managed Care) [employer] Member Subscriber Plan / Payer (Effective 2019-Present) Name: Soniya Cooley Relation to Subscriber: Self Name: Soniya Cooley Payer ID: [id number] ([facility]) Group ID: [id number] Type: HMO Address: [address] [place] [id number] 2019 Unknown [employer] [place] [employer] O [id number] 2019-Present [phone] [address] [place] [address] HMO [id number] 2019 Unknown [id number] 2019 Unknown [id number] 1940 Unknown [id number] 1941 Unknown [id number] 1941 Unknown [id number] 1941 Unknown [id number] 1941 Unknown [id number] 1941 Unknown [id number] Unknown [id number] Unknown [id number] Social History Date Type Detail Facility Start: 02-22-2011 End: 01-18-2025 Tobacco smoking status NHIS Never smoked tobacco [facility] Start: 08-14-2021 End: 12-02-2024 Alcohol intake Current drinker of alcohol (finding) [facility] Start: 08-14-2021 End: 09-11-2024 Alcohol intake [facility] Start: 06-03-2020 End: 06-19-2022 History SDOH Alcohol Frequency 3 [facility] Start: 12-10-2019 End: 06-03-2020 History SDOH Alcohol Std Drinks 98 [facility] Start: 06-03-2020 End: 06-19-2022 History SDOH Alcohol Binge 1 [facility] Start: 03-14-2020 End: 06-19-2022 History SDOH Social Connections Phone 4 [facility] Start: 03-14-2020 End: 06-19-2022 History SDOH Social Connections Get Together 2 [facility] Start: 03-14-2020 History SDOH Physica l Activity DPW 6 [facility] Start: 12-10-2019 End: 06-19-2022 History SDOH Physical Activity MPS 5 [facility] Start: 12-10-2019 Education 21 [facility] Start: 1940 Sex Assigned At Male [facility] Work Phone: Start: 11-14-2021 End: 06-22-2022 Exposure to SARS-CoV-2 (event) Not sure [facility] Start: 02-22-2011 Tobacco use and exposure Smoke less tobacco non-user [facility] Work Phone: Start: 06-19-2022 End: 09-11-2024 Social connection and isolation panel [facility] Do you belong to any clubs or organizations such as zoroastrianism groups, unions, fraternal or athletic groups, or school groups? No [facility] Are you now , , , , never or living with a partner? [facility] How often to you hav e a drink containing alcohol? 2-4 times a month [facility] How many standard dr inks containing alcohol do you have on a typical day? 1 or 2 [facility] How often do you hav e 6 or more drinks on 1 occasion? Never [facility] How hard is it for y ou to pay for the very basics like food, housing, medical care, and heating Not hard at all [facility] Do you feel stress - tense, restless, nervous, or anxious, or unable to sleep at night because your mind is troubled all the time - these days [OSQ] Not at all [facility] (I/We) worried norbert er (my/our) food would run out before (I/we) got money to buy more. Never true [facility] Start: 10-10-2018 Gender identity Identifies as male gender (finding) [facility] Work Phone: Sex Assigned At Sex [facility] Do you belong to any clubs or organizations such as zoroastrianism groups, unions, fraternal or athletic groups, or school groups? Yes [facility] Start: 05-29-2016 Alcohol Alcohol [facility] [place] Start: 05-29-2016 Lives Lives [facility] [place] Start: 05-29-2016 Tobacco Use Tobacco Use [facility] [place] Medical Equipment Procedure Code Equipment Code Equipment Original Text Equipment Identifier Dates [place] Thk1.65mm P tfe 4x.5in Cardiovascular Sterile - [id number] Start: 10-29-2018 Valve Aort 27mm Crp-Ed Thfx - [id number] Start: 10-29-2018 Goals Date Patient Goal Desired Activity /State Personal health goal Functional Status Date Assessment Result Facility 02-19-2024 [facility] Functional Status Single level home [facility] 02-19-2024 Functional Status Front wheeled [facility] 02-19-2024 Functional Status [facility] 02-19-2024 Functional Status Identified as high risk, Fall ID band on, Room located near nursing station, Bed alert on, Door open, Bathroom light on, Non-Slip footwear, Room check performed [facility] 02-19-2024 Functional Status [facility] 02-18-2024 Functional Status [facility] 02-18-2024 Functional Status [facility] 02-18-2024 Functional Status [facility] 02-18-2024 Functional Status Maintained [facility] 11-03-2018 Are you deaf, or do you have serious difficulty hearing No 11/03/2018 12:09 PM EDT Bekah GarzaRn)(Hist), RN [facility] 11-03-2018 Are you blind, or do you have serious difficulty seeing, even when wearing glasses No 11/03/2018 12:09 PM EDT Bekah GarzaRn)(Hist), RN [facility] 11-03-2018 Do you have serious difficulty walking or climbing stairs No 11/03/2018 12:09 PM EDT Bekah GarzaRn)(Hist), RN No [facility] 11-03-2018 Do you have difficul ty dressing or bathing No 11/03/2018 12:09 PM EDT Bekah GarzaRn)(Hist), RN No [facility] 11-03-2018 Because of a physica l, mental, or emotional condition, do you have difficulty doing errands alone such as visiting a physician's office or shopping No 11/03/2018 12:09 PM EDT Bekah GarzaRn)(Hist), RN No [facility] Mental Status Date Assessment Result Facility 02-19-2024 Mental Status Oriented x 4 [facility] 02-18-2024 Mental Status [facility] 02-18-2024 Mental Status [facility] 11-03-2018 Because of a physica l, mental, or emotional condition, do you have serious difficulty concentrating, remembering, or making decisions No 11/03/2018 12:09 PM EDBekah Sheridan (Rn)(Hist), RN No [facility] Clinical Notes 12-11-2019 to 12-02-2024 Prudencio Barlow MA - 12/02/2024 8:05 AM EDTTelephone Encounter - Elizabet Heredia - 11/02/2024 1:56 PM EDTTelephone Encounter - Elizabet Heredia - 11/02/2024 1:56 PM EDTPatient Instructions Note Date & Type Note Facility 12-02-2024 Note HNO ID: [id number] Author: PRUDENCIO BARLOW MA Service: ? Author Type: [employer] Tr[employer] Machine Operator Type: Progress Notes Filed: 12/02/2024 08:06 Note Text: Scan on 11/20/2024 4:11 PM by ProviderKaren PA-C: Consultation - Anesthesia/Pain Prudencio Barlow MA [facility] 12-02-2024 History of Present illness Narrative Scan on 11/20/2024 4:11 PM by ProviderKaren PA-C: Consultation - Anesthesia/Pain Prudencio Barlow MA documented in this encounter [facility] 11-02-2024 Telephone encounter Note Prescription Refill Information The patient has been identified by name and date of : Yes Caregiver verified no other encounters exist for this prescription request: Yes Caregiver confirmed with patient/requestor that no other refills are due, in the near future, with this provider at this time: Yes The last office visit in the department: 05-07-24 Does the patient have a future office visit with this provider/department: Yes Requested Prescriptions Pending Prescriptions Disp Refills levothyroxine (SYNTHROID) 25 mcg tablet 90 tablet 1 Sig: Take 1 tablet by mouth once daily. Take on empty stomach. For thyroid. atorvastatin (LIPITOR) 80 mg tablet 90 tablet 1 Sig: Take 1 tablet by mouth once daily. Elizabet Heredia November 02, 2024 1:57 PM [facility] 11-02-2024 Miscellaneous Notes Prescription Refill Information The patient has been identified by name and date of : Yes Caregiver verified no other encounters exist for this prescription request: Yes Caregiver confirmed with patient/requestor that no other refills are due, in the near future, with this provider at this time: Yes The last office visit in the department: 05-07-24 Does the patient have a future office visit with this provider/department: Yes Requested Prescriptions Pending Prescriptions Disp Refills levothyroxine (SYNTHROID) 25 mcg tablet 90 tablet 1 Sig: Take 1 tablet by mouth once daily. Take on empty stomach. For thyroid. atorvastatin (LIPITOR) 80 mg tablet 90 tablet 1 Sig: Take 1 tablet by mouth once daily. Elizabet Heredia November 02, 2024 1:57 PM documented in this encounter [facility] 09-23-2024 Telephone encounter Note Called and spoke with patient. He expressed understanding. [facility] 09-23-2024 Miscellaneous Notes Called and spoke with patient. He expressed understanding. Called patient at [phone]. Left message on voicemail for patient to return call. Images from the original note were not included. Abby Pate MD [facility] Can you let patient know his game agent was OK with me switching metoprolol to propranolol, so I sent in for 80 mg propranolol once a day - he can just change one day to the next from metoprolol to this new propanolol dose. Depending on response we could increase propranolol in the future. Thanks documented in this encounter [facility] 09-21-2024 Telephone encounter Note Called patient at [phone]. Left message on voicemail for patient to return call. [facility] 09-18-2024 Telephone encounter Note Images from the original note were not included. Abby Pate MD [facility] Can you let patient know his game agent was OK with me switching metoprolol to propranolol, so I sent in for 80 mg propranolol once a day - he can just change one day to the next from metoprolol to this new propanolol dose. Depending on response we could increase propranolol in the future. Thanks [facility] 09-18-2024 Telephone encounter Note Message with results sent to patient in [employer] message. Hemalatha Oneil LPN [facility] 09-18-2024 Miscellaneous Notes Message with results sent to patient in [email or web address] message. Hemalatha Oneil LPN Images from the original note were not included. Marj Mackey MD routed this conversation to [facility] Marj Mackey MD to Anne Cooley 09/18/24 1:54 PM Hey Les Your echocardiogram looks good and the valve continues to function well Lewis Mackey This [employer] message has not been read. documented in this encounter [facility] 09-18-2024 Telephone encounter Note Images from the original note were not included. Marj Mackey MD routed this conversation to [facility] Marj Mackey MD to Anne Cooley 09/18/24 1:54 PM Hey Les Your echocardiogram looks good and the valve continues to function well Lewis Mackey This [employer] message has not been read. [facility] 09-11-2024 Instructions Abby Pate MD - 09/11/2024 3:26 PM EST 1. I'll message Dr. Mackey to see if metoprolol can be changed to propranolol 2. Try trazodone for sleep - try a half pill at bedtime for a week and if no better go up to a full pill. If after 2-3 weeks of 1 pill you've had no benefit and no side effects you can go up to 2 pills and let me know for future refills. Watch out for sleepiness with it. documented in this encounter [facility] 09-11-2024 Note HNO ID: [id number] Author: ABBY PATE MD Service: ? Author Type: Physician Type: Progress Notes Filed: 09/17/2024 15:31 Note Text: Neurology Follow Up Note Subjective Soniya Cooley is an 83 year old male who presents for follow up. CC: PD Summary of prior care: 01/2020 right-handed male with a history of CAD / s/p CABG and AVR, left carotid stenosis s/p CEA, and tremor who presents for evaluation of tremor. His examination demonstrates mild parkinsonian features. His presentation is most consistent with Parkinson's Disease. He has motor features of tremor, mild left sided bradykinesia, and mild gait changes. He has mild hypomimia and hypophonia. 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 First visit 01/2020 taper off primidone, start levodopa, encourage exercise, increase hydration but caution with cardiac disease, start miralax. 05/2020 increase levodopa to 150 mg TID, increase hydration, add miralax. 10/2020 increase to 200 mg TID. 04/2021 increase levodopa to 300 mg TID, add melatonin. 08/2021 taper off levodopa without benefit. 12/2021 had increased to 300 TID, no change. 06/2022 try 250 TID with mild dyskinesia. 03/2023 offered changes deferred. 09/2023 no changes. 03/2024 try 350 mg TID. HPI Current Issues - Maybe tried 3.5 pills per dose for a couple weeks but not completely sure, thinks he did but he isn't sure - Not as sure right now how much it is helping, once forgot a couple doses in a row and woke up the next day very shaky - Will often forget the mid-day dose - Doesn't feel a clear ON effect after taking it - No clear side effects - Constipation good with miralax - Still trouble urinating all night, was started on Flomax 7 12 5 Cd/ld 25/100 3 3 3 Current Outpatient Medications Medication Sig Dispense Refill ezetimibe (ZETIA) 10 mg tablet Take 1 tablet by mouth once daily. 90 tablet 3 tamsulosin (FLOMAX) 0.4 mg TAKE 2 CAPSULES BY MOUTH DAILY AT BEDTIME. 180 capsule 1 levothyroxine (SYNTHROID) 25 mcg tablet Take 1 tablet by mouth once daily. Take on empty stomach. For thyroid. 90 tablet 1 atorvastatin (LIPITOR) 80 mg tablet Take 1 tablet by mouth once daily. 90 tablet 1 metoprolol tartrate, short acting, (LOPRESSOR) 50 mg tablet Take 1 tablet by mouth two times a day. 180 tablet 1 carbidopa-levodopa (SINEMET 25-100) 25-100 mg per tablet TAKE 3 TABLETS 3 TIMES A DAY 810 tablet 2 cyanocobalamin, vitamin B-12, 500 mcg ODT Take 2 tablets by mouth once daily. nitroglycerin sublingual (NITROQUICK) 0.4 mg SL tablet Dissolve 1 tablet under the tongue every 5 minutes as needed. 5 tablet 1 clindamycin (CLEOCIN) 150 mg capsule Take 4 tabs 30-60 min before dental procedures. 4 capsule 3 aspirin, enteric coated (ECOTRIN LOW STRENGTH) 81 mg EC tablet Take 1 tablet by mouth once daily. acetaminophen (TYLENOL) 500 mg tablet Take 1,000 mg by mouth every 8 hours as needed for Pain. fluticasone (FLONASE) 50 mcg/actuation nasal spray Use 1 Blum in each nostril once daily. Rinse mouth after use. 1 Bottle 5 Cholecalciferol, Vitamin D3, 2,000 unit cap Take 2 tablets by mouth once daily. 0 omega-3 fatty acids/vitamin e(FISH OIL 1,000 MG CAP) one tablet twice daily 0 multivitamins w-minerals/lut(CENTRUM SILVER TAB) One tablet daily 0 meloxicam (MOBIC) 15 mg tablet once daily. Current Facility-Administered Medications Medication Dose Route Frequency Provider Last Rate Last Admin perflutren lipid microspheres 1.3 mL in NaCl (PF) 0.9% 10 mL injection (DEFINITY) INTRAVENOUS DIRECTED PRN Marj Mackey MD sodium chloride 0.9 % (flush) 10 mL (BD POSIFLUSH) 10 mL INTRAVENOUS DIRECTED PRN Marj Mackey MD REVIEW OF SYSTEMS His ROS was positive for that mentioned in the HPI. Otherwise a 10-point ROS was completed and was negative. Objective OBJECTIVE 09/11/24 1446 BP: 150/88 BP Site: Right Arm BP Position: Sitting BP Cuff Size: Large Adult Pulse: 68 SpO2: 93% Weight: 94.1 kg (207 lb 7.3 oz) Height: 170.2 cm (5' 7) General: General Appearance: Well appearing, alert, in no acute distress, well-hydrated, well nourished. Head: Normocephalic Neurologic Exam: Mental Status: He is alert. Attention is intact. Language shows normal comprehension and fluency. Affect is appropriate. Cranial Nerves: Extraocular movements show full and smooth pursuits. No nystagmus. Facial activation is symmetric. Hearing is intact to conversation. There is mild hypomimia. There is mild hypophonia. There is no dysarthria. Tongue is midline. Palate elevates symmetrically. Shoulder shrug is normal. Last dose levodopa 300 mg @ 1300, exam 1520 Motor: Muscle bulk is normal. Muscle power is full. Mild bradykinesia. Mild-mod bilateral rest tremor intermittent. No dyskinesia. Coordination: Finger to nose is smooth without ataxia. Gait: Mildly stooped, mild tremor each hand DATA REVIEW Actual films (more content not included)... [facility] 09-11-2024 History of Present illness Narrative Neurology Follow Up Note Subjective Soniya Cooley is an 83 year old male who presents for follow up. CC: PD Summary of prior care: 01/2020 right-handed male with a history of CAD / s/p CABG and AVR, left carotid stenosis s/p CEA, and tremor who presents for evaluation of tremor. His examination demonstrates mild parkinsonian features. His presentation is most consistent with Parkinson's Disease. He has motor features of tremor, mild left sided bradykinesia, and mild gait changes. He has mild hypomimia and hypophonia. 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 First visit 01/2020 taper off primidone, start levodopa, encourage exercise, increase hydration but caution with cardiac disease, start miralax. 05/2020 increase levodopa to 150 mg TID, increase hydration, add miralax. 10/2020 increase to 200 mg TID. 04/2021 increase levodopa to 300 mg TID, add melatonin. 08/2021 taper off levodopa without benefit. 12/2021 had increased to 300 TID, no change. 06/2022 try 250 TID with mild dyskinesia. 03/2023 offered changes deferred. 09/2023 no changes. 03/2024 try 350 mg TID. HPI Current Issues - Maybe tried 3.5 pills per dose for a couple weeks but not completely sure, thinks he did but he isn't sure - Not as sure right now how much it is helping, once forgot a couple doses in a row and woke up the next day very shaky - Will often forget the mid-day dose - Doesn't feel a clear ON effect after taking it - No clear side effects - Constipation good with miralax - Still trouble urinating all night, was started on Flomax 7 12 5 Cd/ld 25/100 3 3 3 Current Outpatient Medications Medication Sig Dispense Refill ezetimibe (ZETIA) 10 mg tablet Take 1 tablet by mouth once daily. 90 tablet 3 tamsulosin (FLOMAX) 0.4 mg TAKE 2 CAPSULES BY MOUTH DAILY AT BEDTIME. 180 capsule 1 levothyroxine (SYNTHROID) 25 mcg tablet Take 1 tablet by mouth once daily. Take on empty stomach. For thyroid. 90 tablet 1 atorvastatin (LIPITOR) 80 mg tablet Take 1 tablet by mouth once daily. 90 tablet 1 metoprolol tartrate, short acting, (LOPRESSOR) 50 mg tablet Take 1 tablet by mouth two times a day. 180 tablet 1 carbidopa-levodopa (SINEMET 25-100) 25-100 mg per tablet TAKE 3 TABLETS 3 TIMES A DAY 810 tablet 2 cyanocobalamin, vitamin B-12, 500 mcg ODT Take 2 tablets by mouth once daily. nitroglycerin sublingual (NITROQUICK) 0.4 mg SL tablet Dissolve 1 tablet under the tongue every 5 minutes as needed. 5 tablet 1 clindamycin (CLEOCIN) 150 mg capsule Take 4 tabs 30-60 min before dental procedures. 4 capsule 3 aspirin, enteric coated (ECOTRIN LOW STRENGTH) 81 mg EC tablet Take 1 tablet by mouth once daily. acetaminophen (TYLENOL) 500 mg tablet Take 1,000 mg by mouth every 8 hours as needed for Pain. fluticasone (FLONASE) 50 mcg/actuation nasal spray Use 1 Blum in each nostril once daily. Rinse mouth after use. 1 Bottle 5 Cholecalciferol, Vitamin D3, 2,000 unit cap Take 2 tablets by mouth once daily. 0 omega-3 fatty acids/vitamin e(FISH OIL 1,000 MG CAP) one tablet twice daily 0 multivitamins w-minerals/lut(CENTRUM SILVER TAB) One tablet daily 0 meloxicam (MOBIC) 15 mg tablet once daily. Current Facility-Administered Medications Medication Dose Route Frequency Provider Last Rate Last Admin perflutren lipid microspheres 1.3 mL in NaCl (PF) 0.9% 10 mL injection (DEFINITY) INTRAVENOUS DIRECTED PRN Marj Mackey MD sodium chloride 0.9 % (flush) 10 mL (BD POSIFLUSH) 10 mL INTRAVENOUS DIRECTED PRN Marj Mackey MD REVIEW OF SYSTEMS His ROS was positive for that mentioned in the HPI. Otherwise a 10-point ROS was completed and was negative. Objective OBJECTIVE 09/11/24 1446 BP: 150/88 BP Site: Right Arm BP Position: Sitting BP Cuff Size: Large Adult Pulse: 68 SpO2: 93% Weight: 94.1 kg (207 lb 7.3 oz) Height: 170.2 cm (5' 7) General: General Appearance: Well appearing, alert, in no acute distress, well-hydrated, well nourished. Head: Normocephalic Neurologic Exam: Mental Status: He is alert. Attention is intact. Language shows normal comprehension and fluency. Affect is appropriate. Cranial Nerves: Extraocular movements show full and smooth pursuits. No nystagmus. Facial activation is symmetric. Hearing is intact to conversation. There is mild hypomimia. There is mild hypophonia. There is no dysarthria. Tongue is midline. Palate elevates symmetrically. Shoulder shrug is normal. Last dose levodopa 300 mg @ 1300, exam 1520 Motor: Muscle bulk is normal. Muscle power is full. Mild bradykinesia. Mild-mod bilateral rest tremor intermittent. No dyskinesia. Coordination: Finger to nose is smooth without ataxia. Gait: Mildly stooped, mild tremor each hand DATA REVIEW Actual films/image/tracing reviewed and summarized as follows: n/a Old records reviewed and summarized as follows: n/a Assessment/Plan ASSESSMENT & PLAN: Soniya Cooley is an 83 year old right-handed male with a history of CAD / s/p CABG and AVR, left carotid stenosis s/p CEA, and tremor who presents for follow up of PD. His examination shows tremor predominant parkinsonism. 1. Parkinson's Disease - Not much change since last visit - Unclear levodopa benefit, misses mid-day dose without clear effect, though after missing two doses once had significant tremor - They aren't completely sure but think they tried increasing levodopa after last visit without benefit so returned to 3 pills TID - Some recent data that propranolol can help PD tremor, and he is actually most bothered by action tremor. He is on metoprolol with heart history, will touch base with his game agent if metoprolol could be changed to propranolol from a cardiac perspective or if metoprolol is clearly best and should not be changed. - Encouraged exercise 2. Constipation - Miralax 3. RBD, insomnia - Working with PCP on medications for nocturia without much benefit as of yet - Will try low dose of trazodone, gave him titration and discussed side effects - Should consider seeing a urologist depending on course Follow-up: 6 months Risks & Side Effects of Newly Prescribed Medication, Discussed with Patient: YES Abby Pate MD [facility] Neurology documented in this encounter [facility] 08-31-2024 History of Present illness Narrative Images from the original note were not included. [facility] Cardiology ([address]) [address] [facility] [id number] OUTPATIENT VISIT DATE 08/31/2024 PRIMARY CARE PHYSICIAN: Oniel Francis [address] [place] [address] HISTORY OF PRESENT ILLNESS: Mr. Cooley is a 83 year old gentleman with a history of coronary artery disease with remote coronary bypass grafting with an SVG graft to dominant left circumflex, left PDA with a Y graft to the diagonal branch (2002). He underwent repeat grafting aortic valve replacement in 2019 with a LLANOS graft LAD and Bernice-Rush aortic valve replacement. He has a history of carotid artery disease with prior left carotid endarterectomy, hypertension, dyslipidemia. He presents the office for routine follow-up. Patient continues to have dyspnea on exertion which is unchanged from prior. He has not had overt chest pain or chest pressure. His functional capacity remains adequate. He has not had symptoms concerning for congestive heart failure including PND, orthopnea, or lower extremity edema. PAST MEDICAL HISTORY Diagnosis Date Acquired hypothyroidism 03/16/2020 Advance directive discussed with patient 12/12/2021 Allergic rhinitis 06/20/2018 Anticoagulated on Coumadin 01/28/[address] Francis: Aortic (per cardio target INR of 2-2.5.), was placed on coumadin per cardio due to US showing a build up on the bovine Valve, Started in 12/2015 Aortic valve disorder 10/09/2002 History: s/p AVR October 2002 Assessment: s/p 10/29/2018: Redo sternotomy AVR ( tissue valve size 27 ) was implanted in usual manner, LLANOS ( skeletonized ) to LAD BRIEF FINDINGS: Dense pericardial adhesions, degeneration of previous implanted aortic valve, Excellent quality and flow in LLANOS and good size LAD target Plan: ASA Aortic valve replaced 11/13/2005 Aortic, was placed on coumadin per cardio due to US showing a build up on the bovine Valve, Started in 12/2015 Aortic valve replaced 11/13/200510/2018 and anticoagulation was stopped. B12 deficiency 10/18/2014 Carotid stenosis, asymptomatic, bilateral 10/29/2008 S/P left repair, Sees Edu for yearly US. Coronary atherosclerosis 08/24/2015 History: S/p CABG with a sequential graft to the diagonal branch, lateral and posterior lateral circumflex branches as well as PDA in October 2002 Assessment: Now s/p CABG x 1 LLANOS to LAD Plan: CAD Core Measures: Aspirin: Yes Beta blockers: Yes Statins: Lipitor 40mg started 3-30, LFTs normal-continue on dc. Elevated fasting blood sugar 06/19/2016 Essential hypertension 10/30/2018 Family history of colon cancer 01/31/2010 Family history of malignant neoplasm of gastrointestinal tract Family history of Parkinson's disease 12/11/2019 History of DVT (deep vein thrombosis) 06/19/2017 Patient was on coumadin at the time. spring History of rheumatic heart disease 10/09/2002 Living will on file 12/12/2021 DPA: Elizabet () Meniscus tear 12/27/2015 Right, minimal. Seen Lamont hebert Microscopic hematuria 01/10/2021 Saw Luciano 02/2021 and felt further w/u not warranted. 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 Dunn Obesity, Class I, BMI 30-34.9 08/26/2018 Other proteinuria 01/10/2021 24 hr patient 01/2021 normal, Repeat yearly Other proteinuria 01/10/2021 24 hr patient 01/2021 normal, Parkinson disease (HCC) 12/01/2013 Postsurgical aortocoronary bypass status 2006 Rheum heart dis NEC/NOS Rheumatic fever Seasonal allergies 12/17/[address] Dash Sleep disorder 07/26/2015 Synovial cyst of right popliteal space 01/28/2017 US ER 01/2017: 3.5 x 1.1 CM Vitamin D deficiency 12/03/2013 PAST SURGICAL HISTORY Procedure Laterality Date 2D ECHO (EXEP) 01/08/2020 EF=53%, mild LVH, ABDOMINAL SURGERY HX CABG W/ARTERIAL GRAFT SINGLE ARTERIAL GRAFT 10/29/2018 used mammorary artery COLONOSCOPY FLX DX W/COLLJ SPEC WHEN PFRMD 2003 Colonoscopy COLONOSCOPY FLX DX W/COLLJ SPEC WHEN PFRMD 03/24/2010 Normal, recheck 5 yrs COLONOSCOPY FLX DX W/COLLJ SPEC WHEN PFRMD 01/28/2015 repeat in 5 yrs COLONOSCOPY FLX DX W/COLLJ SPEC WHEN PFRMD 07/03/2021 repeat in 5 years-polyp CORONARY ARTERY BYP W/VEIN & ARTERY GRAFT 4 VEIN 2002 CABG, quadruple grafts FECAL OCCULT BLOOD TEST 12/25/2016 negative HEART CATHETERIZATION [facility], HEART SURGERY HX HERNIA REPAIR HX LAPAROSCOPY SURG CHOLECYSTECTOMY Cholecystectomy, lap LEFT HEART CATH,PERCUTANEOUS 1998 Cardiac cath, L heart PAST SURGICAL HISTORY OF 10/29/2018 Aortic valve replacement with pig valve and anticoagulation stopped RADICAL RESECTION TONSIL W/O CLOSURE REMV CATARACT EXTRACAP,INSERT LENS 08/22/2020 and 09/14/2020 REMV CATARACT EXTRACAP,INSERT LENS Bilateral 2021 RPLCMT PROST AORTIC VALVE OPEN XCP HOMOGRF/STENT 10/13/2002 Aortic valve replacement RPR 1ST INGUN HRNA AGE 5 YRS/> REDUCIBLE Hernia repair, inguinal SKIN BIOPSY HX TEAEC W/PATCH GRF CAROTID VERTB SUBCLAV NECK INC 12/24/2008 Endarterectomy, carotid, Left TONSILLECTOMY HX TOTAL KNEE REPLACEMENT Left 02/18/2024 SOCIAL HISTORY Social History Tobacco Use Smoking status: Never Smokeless tobacco: Never Vaping Use Vaping status: Never Used Substance Use Topics Alcohol use: Yes Alcohol/week: 3.0 standard drinks of alcohol Types: 3 Cans of Beer (12oz) per week Comment: social only Drug use: No FAMILY HISTORY Problem Relation Age of Onset Ischemic Heart Disease Mother Colon Cancer Mother Heart Mother chf Thyroid Mother Diabetes Father other (liver failure/ETOH abuse) Father Ischemic Heart Disease Sister Ischemic Heart Disease Brother Ischemic Heart Disease Brother Hyperlipidemia Sister PTCA/PCI other (parkensons) Sister Cancer Brother prostate cancer other (Kurtisensons) Brother Hyperlipidemia Child Hyperlipidemia Child ALLERGIES: ALLERGIES Allergen Reactions Iodine Other: See Comments ?decreased BP with iodinated contrast during a cardiac cath. Pt reports he was told by the game agent that they almost lost him due to his reaction and was allergic reaction. The patient reports taking 13 hour allergy premedications in the past with Iodinated contrast without experiencing any breakthrough reaction. Penicillin G Hives MEDICATIONS: tamsulosin (FLOMAX) 0.4 mg^TAKE 2 CAPSULES BY MOUTH DAILY AT BEDTIME.^Disp: 180 capsule^Rfl: 1 levothyroxine (SYNTHROID) 25 mcg tablet^Take 1 tablet by mouth once daily. Take on empty stomach. For thyroid.^Disp: 90 tablet^Rfl: 1 atorvastatin (LIPITOR) 80 mg tablet^Take 1 tablet by mouth once daily.^Disp: 90 tablet^Rfl: 1 metoprolol tartrate, short acting, (LOPRESSOR) 50 mg tablet^Take 1 tablet by mouth two times a day.^Disp: 180 tablet^Rfl: 1 carbidopa-levodopa (SINEMET 25-100) 25-100 mg per tablet^TAKE 3 TABLETS 3 TIMES A DAY^Disp: 810 tablet^Rfl: 2 cyanocobalamin, vitamin B-12, 500 mcg ODT^Take 2 tablets by mouth once daily.^Disp: ^Rfl: nitroglycerin sublingual (NITROQUICK) 0.4 mg SL tablet^Dissolve 1 tablet under the tongue every 5 minutes as needed.^Disp: 5 tablet^Rfl: 1 clindamycin (CLEOCIN) 150 mg capsule^Take 4 tabs 30-60 min before dental procedures.^Disp: 4 capsule^Rfl: 3 aspirin, enteric coated (ECOTRIN LOW STRENGTH) 81 mg EC tablet^Take 1 tablet by mouth once daily.^Disp: ^Rfl: acetaminophen (TYLENOL) 500 mg tablet^Take 1,000 mg by mouth every 8 hours as needed for Pain.^Disp: ^Rfl: fluticasone (FLONASE) 50 mcg/actuation nasal spray^Use 1 Blum in each nostril once daily. Rinse mouth after use.^Disp: 1 Bottle^Rfl: 5 Cholecalciferol, Vitamin D3, 2,000 unit cap^Take 2 tablets by mouth once daily.^Disp: ^Rfl: 0 omega-3 fatty acids/vitamin e(FISH OIL 1,000 MG CAP)^one tablet twice daily^Disp: ^Rfl: 0 multivitamins w-minerals/lut(CENTRUM SILVER TAB)^One tablet daily^Disp: ^Rfl: 0 ezetimibe (ZETIA) 10 mg tablet^Take 1 tablet by mouth once daily.^Disp: 90 tablet^Rfl: 3 meloxicam (MOBIC) 15 mg tablet^once daily.^Disp: ^Rfl: (Patient not taking: Reported on 08/31/2024) REVIEW OF SYSTEMS: Review of Systems Constitutional: Negative for chills, fever, malaise/fatigue and weight loss. HENT: Negative for hearing loss and sore throat. Eyes: Negative for blurred vision and double vision. Respiratory: Negative. Cardiovascular: Negative. Genitourinary: Negative for dysuria, frequency, hematuria and urgency. Musculoskeletal: Negative. Skin: Negative. Neurological: Negative for dizziness, seizures, loss of consciousness, weakness and headaches. Endo/Heme/Allergies: Negative for environmental allergies. Does not bruise/bleed easily. Psychiatric/Behavioral: Negative for depression. PHYSICAL EXAMINATION: BP 98/56 Pulse 74 Resp 14 Ht 5' 7 (1.70m) Wt 201 lb (91.2kg) SpO2 95% BMI 31.47 kg/(m^2). General: Pleasant gentleman sitting appears comfortable no apparent distress. He is alert and oriented x3 HEENT: Carotid upstrokes are brisk bilaterally. Left carotid endarterectomy scar noted. No JVD. Pulmonary: Lungs are clear no rales, wheezes, rhonchi Cardiovascular: Normal S1, S2 with regular rate and rhythm. Hudspeth aortic valve sounds noted. CARDIOVASCULAR MEDICINE TESTING: ECG in the office 12/23/2023: Sinus rhythm with first-degree AV block. Frequent conducted PACs. No significant ST or T wave changes Cardiac Catheterization August 2018 Findings: Left main Normal LAD 50% mid stenosis LCx (dominant) severe diffuse proximal disease RCA 100% mid occlusion (non-dominant per records) SVG to Diagonal, AV groove LCx, LPDA patent IFR of the 50% stenosis in the mid LAD was 0.85 which was hemodynamically significant. Impressions: Severe quechan multivessel CAD Patent Bypass grafts Echocardiogram [facility] 01/08/2020 Normal LV size, mild concentric left ventricular hypertrophy. Estimated EF 53% Normal functioning bioprosthetic aortic valve. Mean aortic valve gradient 5 mmHg CTA Chest 10/17/2018: IMPRESSION: 1. Status post AVR and CABG. The bioprosthetic AVR has mild cusp calcifications. 2. The thoracic aorta is normal, aside from mild mixed atherosclerotic changes of the arch and descending segment. There is no acute aortic pathology. 3. Proximity of the cardiovascular structures to the sternum: The left brachiocephalic vein and right ventricular myocardium both lie immediately adjacent to the retrosternum. The remainder of the cardiac and vascular structures, including the bypass grafts, lie a safe distance (>5 mm) from the sternum. Echocardiogram 08/20/2023: - The left ventricle is normal in size. There is mild concentric left ventricular hypertrophy. Left ventricular systolic function is normal. EF = 59 5% (2D biplane) Left ventricular diastolic function was not evaluated. There is paradoxical septal motion consistent with the patient's previous open heart surgery - The right ventricle is normal in size. Right ventricular systolic function is normal. - The visualized aorta is borderline dilated with a maximal dimension of 4.0 cm. - Bernice-Rush prosthetic aortic valve (size #27). There is no aortic valve regurgitation. The peak gradient is 10 mmHg, the mean gradient is 6 mmHg and the dimensionless valve index is 0.37. - Exam was compared with the prior CC echocardiographic exam performed on 10/29/2018 (OR). Carotid Ultrasound 08/20/2023 IMPRESSION Irregular cardiac rhythm noted. Compared to prior study of 05/08/2022, No significant change. RIGHT SIDE Common carotid artery: Plaque visualized without evidence of hemodynamically significant stenosis. Internal carotid artery: 20-39% stenosis. Vertebral artery: Patent and antegrade flow noted. Innominate artery: Turbulent flow noted. LEFT SIDE Common carotid artery: Plaque visualized without evidence of hemodynamically significant stenosis. Endarterectomy patch at distal measuring 1.2 cm. Internal carotid artery: 20-39% stenosis. Endarterectomy patch from origin to proximal . Vertebral artery: Patent and antegrade flow noted. Carotid Ultrasound 05/08/2022: IMPRESSION Compared to prior study of 03/23/2015, no change in degree of stenosis. RIGHT SIDE Common carotid artery: Plaque visualized without evidence of hemodynamically significant stenosis. Internal carotid artery: 20-39% stenosis. Vertebral artery: Patent and antegrade flow noted. LEFT SIDE Common carotid artery: Patent. Endarterectomy patch at distal measuring 1.06 cm. Internal carotid artery: 20-39% stenosis. Endarterectomy patch from origin to proximal . Vertebral artery: Patent and antegrade flow noted. CABG/AVR Date of Surgery: 10/29/2018 Primary Surgeon: Michelle Ramirez MD Operations: Reoperative median sternotomy, coronary artery bypass grafting with in situ left internal thoracic artery to the LAD and replacement of aortic valve with #27 CE valve IMPRESSION: Mr. Cooley is a 83 year old gentleman with a history of coronary artery disease and remote coronary bypass grafting in 2002 with an SVG Y graft diagonal and left PDA. He had undergone repeat coronary bypass grafting with aortic valve replacement 2018. Preoperative catheterization demonstrated patent SVG graft. He had a LLANOS to the LAD and a Bernice-Rush valve placed October 2018. He has a history of carotid artery disease with a left carotid endarterectomy, peripheral arterial disease, hypertension, and dyslipidemia. He presents for routine follow-up PLAN AND RECOMMENDATIONS: 1. 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 - ICD9: 414.01, ICD10: I25.10 (primary diagnosis) Patient with chronic dyspnea on exertion. Unclear if this is an anginal equivalent. May consider restratification. I have ordered a follow-up echocardiogram. - ECHO - PERFLUTREN LIPID MICROSPHERES 1.1 MG/ML INJECTION IN NS 10 ML - SODIUM CHLORIDE 0.9 % (FLUSH) INJECTION SYRINGE - COMPREHENSIVE METABOLIC PANEL 2. Aortic valve replaced - ICD9: V43.3, ICD10: Z95.2 - ECHO - PERFLUTREN LIPID MICROSPHERES 1.1 MG/ML INJECTION IN NS 10 ML - SODIUM CHLORIDE 0.9 % (FLUSH) INJECTION SYRINGE 3. Mixed hyperlipidemia - ICD9: 272.2, ICD10: E78.2 Maintained on atorvastatin 80 mg daily and Zetia 10 mg daily. Last fasting blood work was from January 2024 at which time his LDL cholesterol was 48 mg/dL 4. Essential hypertension - ICD9: 401.9, ICD10: I10 Well-controlled on current regimen 5. Carotid stenosis, asymptomatic, bilateral - ICD9: 433.10, 433.30, ICD10: I65.23 Mild bilateral disease most recent carotid ultrasound August 2023 6. Hyperlipidemia, unspecified hyperlipidemia type - ICD9: 272.4, ICD10: E78.5 - EZETIMIBE 10 MG TABLET - LIPID PANEL BASIC - COMPREHENSIVE METABOLIC PANEL 7. SAUCEDA (dyspnea on exertion) - ICD9: 786.09, ICD10: R06.09 - NT PRO BNP Marj Mackey MD documented in this encounter [facility] 08-31-2024 Note HNO ID: [id number] Author: MARJ MACKEY MD Service: ? Author Type: Physician Type: Progress Notes Filed: 08/31/2024 16:39 Note Text: [facility] Cardiology ([address]) [address] [facility] [address] OUTPATIENT VISIT DATE 08/31/2024 PRIMARY CARE PHYSICIAN: Oniel Franics [address] [place] [address] HISTORY OF PRESENT ILLNESS: Mr. Cooley is a 83 year old gentleman with a history of coronary artery disease with remote coronary bypass grafting with an SVG graft to dominant left circumflex, left PDA with a Y graft to the diagonal branch (2002). He underwent repeat grafting aortic valve replacement in 2019 with a LLANOS graft LAD and Bernice-Rush aortic valve replacement. He has a history of carotid artery disease with prior left carotid endarterectomy, hypertension, dyslipidemia. He presents the office for routine follow-up. Patient continues to have dyspnea on exertion which is unchanged from prior. He has not had overt chest pain or chest pressure. His functional capacity remains adequate. He has not had symptoms concerning for congestive heart failure including PND, orthopnea, or lower extremity edema. PAST MEDICAL HISTORY Diagnosis Date Acquired hypothyroidism 03/16/2020 Advance directive discussed with patient 12/12/2021 Allergic rhinitis 06/20/2018 Anticoagulated on Coumadin 01/28/[address] Francis: Aortic (per cardio target INR of 2-2.5.), was placed on coumadin per cardio due to US showing a build up on the bovine Valve, Started in 12/2015 Aortic valve disorder 10/09/2002 History: s/p AVR October 2002 Assessment: s/p 10/29/2018: Redo sternotomy AVR ( tissue valve size 27 ) was implanted in usual manner, LLANOS ( skeletonized ) to LAD BRIEF FINDINGS: Dense pericardial adhesions, degeneration of previous implanted aortic valve, Excellent quality and flow in LLANOS and good size LAD target Plan: ASA Aortic valve replaced 11/13/2005 Aortic, was placed on coumadin per cardio due to US showing a build up on the bovine Valve, Started in 12/2015 Aortic valve replaced 11/13/200510/2018 and anticoagulation was stopped. B12 deficiency 10/18/2014 Carotid stenosis, asymptomatic, bilateral 10/29/2008 S/P left repair, Sees Edu for yearly US. Coronary atherosclerosis 08/24/2015 History: S/p CABG with a sequential graft to the diagonal branch, lateral and posterior lateral circumflex branches as well as PDA in October 2002 Assessment: Now s/p CABG x 1 LLANOS to LAD Plan: CAD Core Measures: Aspirin: Yes Beta blockers: Yes Statins: Lipitor 40mg started 3-30, LFTs normal-continue on dc. Elevated fasting blood sugar 06/19/2016 Essential hypertension 10/30/2018 Family history of colon cancer 01/31/2010 Family history of malignant neoplasm of gastrointestinal tract Family history of Parkinson's disease 12/11/2019 History of DVT (deep vein thrombosis) 06/19/2017 Patient was on coumadin at the time. spring History of rheumatic heart disease 10/09/2002 Living will on file 12/12/2021 DPA: Elizabet () Meniscus tear 12/27/2015 Right, minimal. Seen Lamont hebert Microscopic hematuria 01/10/2021 Saw Luciano 02/2021 and felt further w/u not warranted. 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 Dunn Obesity, Class I, BMI 30-34.9 08/26/2018 Other proteinuria 01/10/2021 24 hr patient 01/2021 normal, Repeat yearly Other proteinuria 01/10/2021 24 hr patient 01/2021 normal, Parkinson disease (HCC) 12/01/2013 Postsurgical aortocoronary bypass status 2006 Rheum heart dis NEC/NOS Rheumatic fever Seasonal allergies 12/17/[address] Dash Sleep disorder 07/26/2015 Synovial cyst of right popliteal space 01/28/2017 US ER 01/2017: 3.5 x 1.1 CM Vitamin D deficiency 12/03/2013 PAST SURGICAL HISTORY Procedure Laterality Date 2D ECHO (EXEP) 01/08/2020 EF=53%, mild LVH, ABDOMINAL SURGERY HX CABG W/ARTERIAL GRAFT SINGLE ARTERIAL GRAFT 10/29/2018 used mammorary artery COLONOSCOPY FLX DX W/COLLJ SPEC WHEN PFRMD 2003 Colonoscopy COLONOSCOPY FLX DX W/COLLJ SPEC WHEN PFRMD 03/24/2010 Normal, recheck 5 yrs COLONOSCOPY FLX DX W/COLLJ SPEC WHEN PFRMD 01/28/2015 repeat in 5 yrs COLONOSCOPY FLX DX W/COLLJ SPEC WHEN PFRMD 07/03/2021 repeat in 5 years-polyp CORONARY ARTERY BYP W/VEIN AND ARTERY GRAFT 4 VEIN 2002 CABG, quadruple grafts FECAL OCCULT BLOOD TEST 12/25/2016 negative HEART CATHETERIZATION [facility], HEART SURGERY HX HERNIA REPAIR HX LAPAROSCOPY SURG CHOLECYSTECTOMY Cholecystectomy, lap LEFT HEART CATH,PERCUTANEOUS 1998 Cardiac cath, L heart PAST SURGICAL HISTORY OF 10/29/2018 Aortic valve rep (more content not included)... [facility] 08-03-2024 Telephone encounter Note Prescription Refill Information The patient has been identified by name and date of : Yes Caregiver verified no other encounters exist for this prescription request: Yes Caregiver confirmed with patient/requestor that no other refills are due, in the near future, with this provider at this time: Yes The last office visit in the department: 02/10/2024 Does the patient have a future office visit with this provider/department: Yes Requested Prescriptions Pending Prescriptions Disp Refills tamsulosin (FLOMAX) 0.4 mg [Pharmacy Med Name: TAMSULOSIN HCL 0.4 MG CAPSULE] 180 capsule 1 Sig: TAKE 2 CAPSULES BY MOUTH DAILY AT BEDTIME. Анна Martini LPN August 03, 2024 7:25 AM [facility] 08-03-2024 Miscellaneous Notes Prescription Refill Information The patient has been identified by name and date of : Yes Caregiver verified no other encounters exist for this prescription request: Yes Caregiver confirmed with patient/requestor that no other refills are due, in the near future, with this provider at this time: Yes The last office visit in the department: 02/10/2024 Does the patient have a future office visit with this provider/department: Yes Requested Prescriptions Pending Prescriptions Disp Refills tamsulosin (FLOMAX) 0.4 mg [Pharmacy Med Name: TAMSULOSIN HCL 0.4 MG CAPSULE] 180 capsule 1 Sig: TAKE 2 CAPSULES BY MOUTH DAILY AT BEDTIME. Анна Martini LPN August 03, 2024 7:25 AM documented in this encounter [facility] 07-10-2024 Telephone encounter Note The following approved medication requests have been transmitted electronically. Requested Prescriptions Signed Prescriptions Disp Refills levothyroxine (SYNTHROID) 25 mcg tablet 90 tablet 1 Sig: Take 1 tablet by mouth once daily. Take on empty stomach. For thyroid. Authorizing Provider: ONIEL FRANCIS MD [facility] 07-10-2024 Miscellaneous Notes The following approved medication requests have been transmitted electronically. Requested Prescriptions Signed Prescriptions Disp Refills levothyroxine (SYNTHROID) 25 mcg tablet 90 tablet 1 Sig: Take 1 tablet by mouth once daily. Take on empty stomach. For thyroid. Authorizing Provider: ONIEL FRANCIS MD Sent message to [facility] for other medication refill. Prescription Refill Information The patient has been identified by name and date of : Yes Caregiver verified no other encounters exist for this prescription request: Yes Caregiver confirmed with patient/requestor that no other refills are due, in the near future, with this provider at this time: Yes The last office visit in the department: 02/2024 Does the patient have a future office visit with this provider/department: Yes Requested Prescriptions Pending Prescriptions Disp Refills ezetimibe (ZETIA) 10 mg tablet 90 tablet 3 Sig: Take 1 tablet by mouth once daily. levothyroxine (SYNTHROID) 25 mcg tablet 90 tablet 1 Sig: Take 1 tablet by mouth once daily. Take on empty stomach. For thyroid. Prudencio Barlow MA July 10, 2024 4:52 PM Patient has been identified by name and date of : Yes, Patient phones for refill(s): Requested Prescriptions Pending Prescriptions Disp Refills ezetimibe (ZETIA) 10 mg tablet 90 tablet 3 Sig: Take 1 tablet by mouth once daily. levothyroxine (SYNTHROID) 25 mcg tablet 90 tablet 1 Sig: Take 1 tablet by mouth once daily. Take on empty stomach. For thyroid. Date of last office visit in primary care: 05/07/2024 Date of next office visit in primary care: 02/08/2025 Please advise. Thank you. Daly Art. documented in this encounter [facility] 07-10-2024 Telephone encounter Note Prescription Refill Information The patient has been identified by name and date of : Yes Caregiver verified no other encounters exist for this prescription request: Yes Caregiver confirmed with patient/requestor that no other refills are due, in the near future, with this provider at this time: Yes The last office visit in the department: Does the patient have a future office visit with this provider/department: Yes Requested Prescriptions Pending Prescriptions Disp Refills ezetimibe (ZETIA) 10 mg tablet 90 tablet 3 Sig: Take 1 tablet by mouth once daily. Prudencio Barlow MA July 10, 2024 4:54 PM [facility] 07-10-2024 Miscellaneous Notes Prescription Refill Information The patient has been identified by name and date of : Yes Caregiver verified no other encounters exist for this prescription request: Yes Caregiver confirmed with patient/requestor that no other refills are due, in the near future, with this provider at this time: Yes The last office visit in the department: Does the patient have a future office visit with this provider/department: Yes Requested Prescriptions Pending Prescriptions Disp Refills ezetimibe (ZETIA) 10 mg tablet 90 tablet 3 Sig: Take 1 tablet by mouth once daily. Prudencio Barlow MA July 10, 2024 4:54 PM documented in this encounter [facility] 07-10-2024 Telephone encounter Note Sent message to [facility] for other medication refill. Prescription Refill Information The patient has been identified by name and date of : Yes Caregiver verified no other encounters exist for this prescription request: Yes Caregiver confirmed with patient/requestor that no other refills are due, in the near future, with this provider at this time: Yes The last office visit in the department: 02/2024 Does the patient have a future office visit with this provider/department: Yes Requested Prescriptions Pending Prescriptions Disp Refills ezetimibe (ZETIA) 10 mg tablet 90 tablet 3 Sig: Take 1 tablet by mouth once daily. levothyroxine (SYNTHROID) 25 mcg tablet 90 tablet 1 Sig: Take 1 tablet by mouth once daily. Take on empty stomach. For thyroid. Prudencio Barlow MA July 10, 2024 4:52 PM [facility] 07-10-2024 Telephone encounter Note Patient has been identified by name and date of : Yes, Patient phones for refill(s): Requested Prescriptions Pending Prescriptions Disp Refills ezetimibe (ZETIA) 10 mg tablet 90 tablet 3 Sig: Take 1 tablet by mouth once daily. levothyroxine (SYNTHROID) 25 mcg tablet 90 tablet 1 Sig: Take 1 tablet by mouth once daily. Take on empty stomach. For thyroid. Date of last office visit in primary care: 05/07/2024 Date of next office visit in primary care: 02/08/2025 Please advise. Thank you. Daly Art. [facility] 05-11-2024 Telephone encounter Note Patient returned call and went over results, notes from Zina Duran [employer]IE[employer]W SCHEDULER with understanding. Patient said he has appt on Saturday with Dr Caldwell at [facility] and requesting a copy of report be faxed. Printed and faxed to [phone] as requested. [facility] 05-11-2024 Miscellaneous Notes Patient returned call and went over results, notes from Zina Duran [employer]IE[employer]W SCHEDULER with understanding. Patient said he has appt on Saturday with Dr Caldwell at [facility] and requesting a copy of report be faxed. Printed and faxed to [phone] as requested. Left message for patient to return call to office Autumn Mares MA Please let patient know refills sent. Also Us results from [facility] negative for DVT ;however does show a likely popliteal cyst which could be causing pain. Recommend follow up with ortho. TC to patients , listed in chart to receive medical information, who verbalized understanding of below. asking that refills of atorvastatin and metoprolol be sent to pharmacy. Pended as such if provider agreeable. [facility] 05/07/2024 NOV 02/08/2025 Please let patient know their labs are WNL documented in this encounter [facility] 05-11-2024 Telephone encounter Note Left message for patient to return call to office Autumn Mares MA [facility] 05-11-2024 Telephone encounter Note Please let patient know refills sent. Also Us results from [facility] negative for DVT ;however does show a likely popliteal cyst which could be causing pain. Recommend follow up with ortho. [facility] 05-11-2024 Telephone encounter Note TC to patients , listed in chart to receive medical information, who verbalized understanding of below. asking that refills of atorvastatin and metoprolol be sent to pharmacy. Pended as such if provider agreeable. [facility] 05/07/2024 NOV 02/08/2025 [facility] 05-08-2024 Telephone encounter Note Please let patient know their labs are WNL [facility] 05-08-2024 Telephone encounter Note Patient Elizabet calling having problem scheduling ultrasound for his legs at [facility]. She was told office has to call to schedule. This nurse called and spoke to scheduling Rosalia and scheduled STAT ultrasound of his legs today at 1 pm patient to be there at 1245 pm. Phoned patient back and gave instructions, told may want to be earlier since construction is going on at [facility] area. Phoned space scheduler and cancelled appt for [facility] for this afternoon. [facility] 05-08-2024 Miscellaneous Notes Patient Elizabet calling having problem scheduling ultrasound for his legs at [facility]. She was told office has to call to schedule. This nurse called and spoke to scheduling Rosalia and scheduled STAT ultrasound of his legs today at 1 pm patient to be there at 1245 pm. Phoned patient back and gave instructions, told may want to be earlier since construction is going on at [facility] area. Phoned space scheduler and cancelled appt for [facility] for this afternoon. documented in this encounter [facility] 05-08-2024 Telephone encounter Note Approval received. Pt will call [facility] to schedule Autumn Mares MA [facility] 05-08-2024 Miscellaneous Notes Approval received. Pt will call [facility] to schedule Autumn Mares MA Referral placed. Waiting to hear back from pre access if approved Autumn Mares MA Please check to see if [facility] has availability. If so please fax order. Pt called to check schedule in [place] for [place]. There are no appointments available here tomorrow. He would like to check at the [facility] if the order could be sent there to check appointment availability tomorrow. He kept the [facility] appointment just in case we find that the [facility] can't accommodate tomorrow. documented in this encounter [facility] 05-08-2024 Telephone encounter Note Referral placed. Waiting to hear back from pre access if approved Autumn Mares MA [facility] 05-07-2024 Telephone encounter Note Please check to see if [facility] has availability. If so please fax order. [facility] 05-07-2024 Telephone encounter Note Pt called to check schedule in [place] for US. There are no appointments available here tomorrow. He would like to check at the [facility] if the order could be sent there to check appointment availability tomorrow. He kept the [facility] appointment just in case we find that the [facility] can't accommodate tomorrow. [facility] Work Phone: 05-07-2024 Note HNO ID: [id number] Author: ZINA DURAN APRN.[employer] Service: ? Author Type: Nurse Practitioner Type: Progress Notes Filed: 05/07/2024 16:00 Note Text: Chief Complaint Patient presents with: Edema: Both legs X 3 days Leg Pain: Thigh pain X 3 days HPI Soniya Cooley is a 83 year old male who presents here today for Above Complaints.. Patient presents for swelling to bilateral lower legs and pain to bilateral legs. Patient reports pain and swelling started about 3 days ago and has gradually gotten worse. Denies any new medications. Pain worse with ambulation better with rest. Patient reports he had knee replacement about 3 months ago. Past medical history, appointments, medications, allergies reviewed. Previous Medical History PAST MEDICAL HISTORY Diagnosis Date Acquired hypothyroidism 03/16/2020 Advance directive discussed with patient 12/12/2021 Allergic rhinitis 06/20/2018 Anticoagulated on Coumadin 01/28/[address] Francis: Aortic (per cardio target INR of 2-2.5.), was placed on coumadin per cardio due to US showing a build up on the bovine Valve, Started in 12/2015 Aortic valve disorder 10/09/2002 History: s/p AVR October 2002 Assessment: s/p 10/29/2018: Redo sternotomy AVR ( tissue valve size 27 ) was implanted in usual manner, LLANOS ( skeletonized ) to LAD BRIEF FINDINGS: Dense pericardial adhesions, degeneration of previous implanted aortic valve, Excellent quality and flow in LLANOS and good size LAD target Plan: ASA Aortic valve replaced 11/13/2005 Aortic, was placed on coumadin per cardio due to US showing a build up on the bovine Valve, Started in 12/2015 Aortic valve replaced 11/13/200510/2018 and anticoagulation was stopped. B12 deficiency 10/18/2014 Carotid stenosis, asymptomatic, bilateral 10/29/2008 S/P left repair, Sees Edu for yearly US. Coronary atherosclerosis 08/24/2015 History: S/p CABG with a sequential graft to the diagonal branch, lateral and posterior lateral circumflex branches as well as PDA in October 2002 Assessment: Now s/p CABG x 1 LLANOS to LAD Plan: CAD Core Measures: Aspirin: Yes Beta blockers: Yes Statins: Lipitor 40mg started 3-30, LFTs normal-continue on dc. Elevated fasting blood sugar 06/19/2016 Essential hypertension 10/30/2018 Family history of colon cancer 01/31/2010 Family history of malignant neoplasm of gastrointestinal tract Family history of Parkinson's disease 12/11/2019 History of DVT (deep vein thrombosis) 06/19/2017 Patient was on coumadin at the time. spring History of rheumatic heart disease 10/09/2002 Living will on file 12/12/2021 DPA: Elizabet () Meniscus tear 12/27/2015 Right, minimal. Seen Lamont hebert Microscopic hematuria 01/10/2021 Saw Luciano 02/2021 and felt further w/u not warranted. 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 Dunn Obesity, Class I, BMI 30-34.9 08/26/2018 Other proteinuria 01/10/2021 24 hr patient 01/2021 normal, Repeat yearly Other proteinuria 01/10/2021 24 hr patient 01/2021 normal, Parkinson disease (HCC) 12/01/2013 Postsurgical aortocoronary bypass status 2006 Rheum heart dis NEC/NOS Rheumatic fever Seasonal allergies 12/17/[address] Dash Sleep disorder 07/26/2015 Synovial cyst of right popliteal space 01/28/2017 US ER 01/2017: 3.5 x 1.1 CM Vitamin D deficiency 12/03/2013 Previous Surgical History PAST SURGICAL HISTORY Procedure Laterality Date 2D ECHO (EXEP) 01/08/2020 EF=53%, mild LVH, ABDOMINAL SURGERY HX CABG W/ARTERIAL GRAFT SINGLE ARTERIAL GRAFT 10/29/2018 used mammorary artery COLONOSCOPY FLX DX W/COLLJ SPEC WHEN PFRMD 2003 Colonoscopy COLONOSCOPY FLX DX W/COLLJ SPEC WHEN PFRMD 03/24/2010 Normal, recheck 5 yrs COLONOSCOPY FLX DX W/COLLJ SPEC WHEN PFRMD 01/28/2015 repeat in 5 yrs COLONOSCOPY FLX DX W/COLLJ SPEC WHEN PFRMD 07/03/2021 repeat in 5 years-polyp CORONARY ARTERY BYP W/VEIN AND ARTERY GRAFT 4 VEIN 2002 CABG, quadruple grafts FECAL OCCULT BLOOD TEST 12/25/2016 negative HEART CATHETERIZATION [facility], HEART SURGERY HX HERNIA REPAIR HX LAPAROSCOPY SURG CHOLECYSTECTOMY Cholecystectomy, lap LEFT HEART CATH,PERCUTANEOUS 1998 Cardiac cath, L heart PAST SURGICAL HISTORY OF 10/29/2018 Aortic valve replacement with pig valve and anticoagulation stopped RADICAL RESECTION TONSIL W/O CLOSURE REMV CATARACT EXTRACAP,INSERT LENS 08/22/2020 and 09/14/2020 REMV CATARACT EXTRACAP,INSERT LENS Bilateral 2021 RPLCMT PROST AORTIC VALVE OPEN XCP HOMOGRF/STENT 10/13/2002 Aortic valve replacement RPR 1ST INGUN HRNA AGE 5 YRS/> REDUCIBLE Hernia repair, inguinal SKIN BIOPSY HX TEAEC W/PATCH GRF CAROTID VERTB SUBCLAV NECK INC 12/24/2008 Endarterectomy, carotid, Left TONSILLECTOMY HX TOTA (more content not included)... [facility] 05-07-2024 History of Present illness Narrative Chief Complaint Patient presents with: Edema: Both legs X 3 days Leg Pain: Thigh pain X 3 days HPI Soniya Cooley is a 83 year old male who presents here today for Above Complaints.. Patient presents for swelling to bilateral lower legs and pain to bilateral legs. Patient reports pain and swelling started about 3 days ago and has gradually gotten worse. Denies any new medications. Pain worse with ambulation better with rest. Patient reports he had knee replacement about 3 months ago. Past medical history, appointments, medications, allergies reviewed. Previous Medical History PAST MEDICAL HISTORY Diagnosis Date Acquired hypothyroidism 03/16/2020 Advance directive discussed with patient 12/12/2021 Allergic rhinitis 06/20/2018 Anticoagulated on Coumadin 01/28/[address] Francis: Aortic (per cardio target INR of 2-2.5.), was placed on coumadin per cardio due to US showing a build up on the bovine Valve, Started in 12/2015 Aortic valve disorder 10/09/2002 History: s/p AVR October 2002 Assessment: s/p 10/29/2018: Redo sternotomy AVR ( tissue valve size 27 ) was implanted in usual manner, LLANOS ( skeletonized ) to LAD BRIEF FINDINGS: Dense pericardial adhesions, degeneration of previous implanted aortic valve, Excellent quality and flow in LLANOS and good size LAD target Plan: ASA Aortic valve replaced 11/13/2005 Aortic, was placed on coumadin per cardio due to US showing a build up on the bovine Valve, Started in 12/2015 Aortic valve replaced 11/13/200510/2018 and anticoagulation was stopped. B12 deficiency 10/18/2014 Carotid stenosis, asymptomatic, bilateral 10/29/2008 S/P left repair, Sees Edu for yearly US. Coronary atherosclerosis 08/24/2015 History: S/p CABG with a sequential graft to the diagonal branch, lateral and posterior lateral circumflex branches as well as PDA in October 2002 Assessment: Now s/p CABG x 1 LLANOS to LAD Plan: CAD Core Measures: Aspirin: Yes Beta blockers: Yes Statins: Lipitor 40mg started -, LFTs normal-continue on dc. Elevated fasting blood sugar 06/19/2016 Essential hypertension 10/30/2018 Family history of colon cancer 01/31/2010 Family history of malignant neoplasm of gastrointestinal tract Family history of Parkinson's disease 12/11/2019 History of DVT (deep vein thrombosis) 06/19/2017 Patient was on coumadin at the time. spring History of rheumatic heart disease 10/09/2002 Living will on file 12/12/2021 DPA: Elizabet () Meniscus tear 12/27/2015 Right, minimal. Seen Lamont hebert Microscopic hematuria 01/10/2021 Saw Luciano 02/2021 and felt further w/u not warranted. 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 Dunn Obesity, Class I, BMI 30-34.9 08/26/2018 Other proteinuria 01/10/2021 24 hr patient 01/2021 normal, Repeat yearly Other proteinuria 01/10/2021 24 hr patient 01/2021 normal, Parkinson disease (HCC) 12/01/2013 Postsurgical aortocoronary bypass status 2006 Rheum heart dis NEC/NOS Rheumatic fever Seasonal allergies 12/17/[address] Dash Sleep disorder 07/26/2015 Synovial cyst of right popliteal space 01/28/2017 US ER 01/2017: 3.5 x 1.1 CM Vitamin D deficiency 12/03/2013 Previous Surgical History PAST SURGICAL HISTORY Procedure Laterality Date 2D ECHO (EXEP) 01/08/2020 EF=53%, mild LVH, ABDOMINAL SURGERY HX CABG W/ARTERIAL GRAFT SINGLE ARTERIAL GRAFT 10/29/2018 used mammorary artery COLONOSCOPY FLX DX W/COLLJ SPEC WHEN PFRMD 2003 Colonoscopy COLONOSCOPY FLX DX W/COLLJ SPEC WHEN PFRMD 03/24/2010 Normal, recheck 5 yrs COLONOSCOPY FLX DX W/COLLJ SPEC WHEN PFRMD 01/28/2015 repeat in 5 yrs COLONOSCOPY FLX DX W/COLLJ SPEC WHEN PFRMD 07/03/2021 repeat in 5 years-polyp CORONARY ARTERY BYP W/VEIN & ARTERY GRAFT 4 VEIN 2002 CABG, quadruple grafts FECAL OCCULT BLOOD TEST 12/25/2016 negative HEART CATHETERIZATION [facility], HEART SURGERY HX HERNIA REPAIR HX LAPAROSCOPY SURG CHOLECYSTECTOMY Cholecystectomy, lap LEFT HEART CATH,PERCUTANEOUS 1998 Cardiac cath, L heart PAST SURGICAL HISTORY OF 10/29/2018 Aortic valve replacement with pig valve and anticoagulation stopped RADICAL RESECTION TONSIL W/O CLOSURE REMV CATARACT EXTRACAP,INSERT LENS 08/22/2020 and 09/14/2020 REMV CATARACT EXTRACAP,INSERT LENS Bilateral 2021 RPLCMT PROST AORTIC VALVE OPEN XCP HOMOGRF/STENT 10/13/2002 Aortic valve replacement RPR 1ST INGUN HRNA AGE 6 YRS/> REDUCIBLE Hernia repair, inguinal SKIN BIOPSY HX TEAEC W/PATCH GRF CAROTID VERTB SUBCLAV NECK INC 12/24/2008 Endarterectomy, carotid, Left TONSILLECTOMY HX TOTAL KNEE REPLACEMENT Left 02/18/2024 Family History FAMILY HISTORY Problem Relation Age of Onset Ischemic Heart Disease Mother Colon Cancer Mother Heart Mother chf Thyroid Mother Diabetes Father other (liver failure/ETOH abuse) Father Ischemic Heart Disease Sister Ischemic Heart Disease Brother Ischemic Heart Disease Brother Hyperlipidemia Sister PTCA/PCI other ([place]) Sister Cancer Brother prostate cancer other ([place]) Brother Hyperlipidemia Child Hyperlipidemia Child Patient Allergies ALLERGIES Allergen Reactions Iodine Other: See Comments ?decreased BP with iodinated contrast during a cardiac cath. Pt reports he was told by the game agent that they almost lost him due to his reaction and was allergic reaction. The patient reports taking 13 hour allergy premedications in the past with Iodinated contrast without experiencing any breakthrough reaction. Penicillin G Hives Current Medications Current Outpatient Medications on File Prior to Visit Medication Sig tamsulosin (FLOMAX) 0.4 mg Take 2 capsules by mouth daily at bedtime. levothyroxine (SYNTHROID) 25 mcg tablet Take 1 tablet by mouth once daily. Take on empty stomach. For thyroid. atorvastatin (LIPITOR) 80 mg tablet Take 1 tablet by mouth once daily. ezetimibe (ZETIA) 10 mg tablet Take 1 tablet by mouth once daily. metoprolol tartrate, short acting, (LOPRESSOR) 50 mg tablet Take 1 tablet by mouth two times a day. carbidopa-levodopa (SINEMET 25-100) 25-100 mg per tablet TAKE 3 TABLETS 3 TIMES A DAY meloxicam (MOBIC) 15 mg tablet once daily. cyanocobalamin, vitamin B-12, 500 mcg ODT Take 2 tablets by mouth once daily. nitroglycerin sublingual (NITROQUICK) 0.4 mg SL tablet Dissolve 1 tablet under the tongue every 5 minutes as needed. clindamycin (CLEOCIN) 150 mg capsule Take 4 tabs 30-60 min before dental procedures. aspirin, enteric coated (ECOTRIN LOW STRENGTH) 81 mg EC tablet Take 1 tablet by mouth once daily. acetaminophen (TYLENOL) 500 mg tablet Take 1,000 mg by mouth every 8 hours as needed for Pain. fluticasone (FLONASE) 50 mcg/actuation nasal spray Use 1 Blum in each nostril once daily. Rinse mouth after use. Cholecalciferol, Vitamin D3, 2,000 unit cap Take 2 tablets by mouth once daily. omega-3 fatty acids/vitamin e(FISH OIL 1,000 MG CAP) one tablet twice daily multivitamins w-minerals/lut(CENTRUM SILVER TAB) One tablet daily Current Facility-Administered Medications on File Prior to Visit Medication perflutren lipid microspheres 1.3 mL in NaCl (PF) 0.9% 10 mL injection (DEFINITY) sodium chloride 0.9 % (flush) 10 mL (BD POSIFLUSH) Social History Social History Tobacco Use Smoking status: Never Smokeless tobacco: Never Vaping Use Vaping status: Never Used Substance Use Topics Alcohol use: Yes Alcohol/week: 3.0 standard drinks of alcohol Types: 3 Cans of Beer (12oz) per week Comment: social only Drug use: No Review of Symptoms REVIEW OF SYSTEMS SEE HPI EXAM: BP 125/67 Pulse 63 Resp 16 Wt 90.7 kg (200 lb) BMI 31.32 kg/m General Appearance: Well appearing, alert, in no acute distress, well-hydrated, well nourished.. Lungs: Lungs clear to auscultation. No wheezing, rhonchi, rales.. Heart: RRR without murmur, gallop, or rubs. No ectopy. Extremities: Pulses: 2+, Edema: 1-2+ pitting edema bilaterally from ankles down. Bilateral calves tender with palpation. Health Maintenance List Influenza Vaccine(1) due on 04/05/2024 Covid-19 Vaccine( season) due on 04/05/2024 LDL Cholesterol due on 01/30/2025 Depression Screening due on 02/09/2025 Anxiety Screening due on 02/09/2025 Diabetes Screening due on 01/30/2027 DTaP,Tdap,Td Vaccine(5 - Td or Tdap) due on 12/04/2027 Advance Directive Discussion Completed RSV Vaccine Completed Shingrix Vaccine Completed Pneumococcal Vaccine: 65+ Completed Colorectal Cancer Screening Discontinued ASSESSMENT/PLAN: 1. Bilateral leg pain - ICD9: 729.5, ICD10: M79.604, M79.605 (primary diagnosis) - COMPLETE BLOOD COUNT AND DIFFERENTIAL - MAGNESIUM - US DVT LOWER BILATERAL 2. Bilateral lower extremity edema - ICD9: 782.3, ICD10: R60.0 - COMPREHENSIVE METABOLIC PANEL - PHOSPHORUS INORGANIC - US DVT LOWER BILATERAL Zina Duran APRN.[employer] documented in this encounter [facility] 04-07-2024 Miscellaneous Notes Ordering labs for next year's wellness exam. Ella Valdovinos PA-C documented in this encounter [facility] 04-07-2024 Telephone encounter Note Ordering labs for next year's wellness exam. Ella Valdovinos PA-C [facility] 04-07-2024 Note HNO ID: [id number] Author: ELLA VALDOVINOS PA-C Service: ? Author Type: Physician [employer] Worker Type: Progress Notes Filed: 04/07/2024 11:07 Note Text: Chief Complaint Patient presents with: Recheck HPI Soniya Cooley is a 83 year old male who presents here today for recheck nocturia.. Patient started flomax about 3 weeks ago. Continues to have frequent night time wakening to urinate. 3-4 times a night. No other concerns. Past medical history, appointments, medications, allergies reviewed. Previous Medical History PAST MEDICAL HISTORY 03/16/2020: Acquired hypothyroidism 12/12/2021: Advance directive discussed with patient 06/20/2018: Allergic rhinitis 01/28/2017: Anticoagulated on Coumadin Comment: Per Dr. Francis: Aortic (per cardio target INR of 2-2.5.), was placed on coumadin per cardio due to US showing a build up on the bovine Valve, Started in 12/201510/09/2002: Aortic valve disorder Comment: History: s/p AVR October 2002 Assessment: s/p 10/29/2018: Redo sternotomy AVR ( tissue valve size 27 ) was implanted in usual manner, LLANOS ( skeletonized ) to LAD BRIEF FINDINGS: Dense pericardial adhesions, degeneration of previous implanted aortic valve, Excellent quality and flow in LLANOS and good size LAD target Plan: ASA 11/13/2005: Aortic valve replaced Comment: Aortic, was placed on coumadin per cardio due to US showing a build up on the bovine Valve, Started in 12/201511/13/2005: Aortic valve replaced Comment: 10/2018 and anticoagulation was stopped. 10/18/2014: B12 deficiency 10/29/2008: Carotid stenosis, asymptomatic, bilateral Comment: S/P left repair, Sees Edu for yearly US. 08/24/2015: Coronary atherosclerosis Comment: History: S/p CABG with a sequential graft to the diagonal branch, lateral and posterior lateral circumflex branches as well as PDA in October 2002 Assessment: Now s/p CABG x 1 LLANOS to LAD Plan: CAD Core Measures: Aspirin: Yes Beta blockers: Yes Statins: Lipitor 40mg started 3-30, LFTs normal-continue on dc. 06/19/2016: Elevated fasting blood sugar 10/30/2018: Essential hypertension Comment: 01/31/2010: Family history of colon cancer No date: Family history of malignant neoplasm of gastrointestinal tract 12/11/2019: Family history of Parkinson's disease 06/19/2017: History of DVT (deep vein thrombosis) Comment: Patient was on coumadin at the time. spring10/09/2002: History of rheumatic heart disease 12/12/2021: Living will on file Comment: DPA: Elizabet () 12/27/2015: Meniscus tear Comment: Right, minimal. Seen Lamont hebert 01/10/2021: Microscopic hematuria Comment: Saw Luciano 02/2021 and felt further w/u not warranted. 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 Dunn 08/26/2018: Obesity, Class I, BMI 30-34.9 01/10/2021: Other proteinuria Comment: 24 hr patient 01/2021 normal, Repeat yearly 01/10/2021: Other proteinuria Comment: 24 hr patient 01/2021 normal, 12/01/2013: Parkinson disease (HCC) 2006: Postsurgical aortocoronary bypass status No date: Rheum heart dis NEC/NOS Comment: Rheumatic fever 12/17/2016: Seasonal allergies Comment: Sees Dr. Dash 07/26/2015: Sleep disorder 01/28/2017: Synovial cyst of right popliteal space Comment: US ER 01/2017: 3.5 x 1.1 CM 12/03/2013: Vitamin D deficiency Previous Surgical History PAST SURGICAL HISTORY 01/08/2020: 2D ECHO (EXEP) Comment: EF=53%, mild LVH, No date: ABDOMINAL SURGERY HX 10/29/2018: CABG W/ARTERIAL GRAFT SINGLE ARTERIAL GRAFT Comment: used mammorary artery 2003: COLONOSCOPY FLX DX W/COLLJ SPEC WHEN PFRMD Comment: Colonoscopy 03/24/2010: COLONOSCOPY FLX DX W/COLLJ SPEC WHEN PFRMD Comment: Normal, recheck 5 yrs 01/28/2015: COLONOSCOPY FLX DX W/COLLJ SPEC WHEN PFRMD Comment: repeat in 5 yrs 07/03/2021: COLONOSCOPY FLX DX W/COLLJ SPEC WHEN PFRMD Comment: repeat in 5 years-polyp 2002: CORONARY ARTERY BYP W/VEIN AND ARTERY GRAFT 4 VEIN Comment: CABG, quadruple grafts 12/25/2016: FECAL OCCULT BLOOD TEST Comment: negative No date: HEART CATHETERIZATION Comment: [facility], No date: HEART SURGERY HX No date: HERNIA REPAIR HX : LAPAROSCOPY SURG CHOLECYSTECTOMY Comment: Cholecystectomy, lap 1997: LEFT HEART CATH,PERCUTANEOUS Comment: Cardiac cath, L heart 10/29/2018: PAST SURGICAL HISTORY OF Comment: Aortic valve replacement with pig valve and anticoagulation stopped No date: RADICAL RESECTION TONSIL W/O CLOSURE No date: REMV CATARACT EXTRACAP,INSERT LENS Comment: 08/22/2020 and 09/14/20202021: REMV CATARACT EXTRACAP,INSERT LENS; Bilateral 10/13/2002: RPLCMT PROST AORTIC VALVE OPEN XCP HOMOGRF/STENT Comment: Aortic valve replacement : RPR 1ST INGUN HRNA AGE 6 Y (more content not included)... [facility] 04-07-2024 History of Present illness Narrative Chief Complaint Patient presents with: Recheck HPI Soniya Cooley is a 83 year old male who presents here today for recheck nocturia.. Patient started flomax about 3 weeks ago. Continues to have frequent night time wakening to urinate. 3-4 times a night. No other concerns. Past medical history, appointments, medications, allergies reviewed. Previous Medical History PAST MEDICAL HISTORY 03/16/2020: Acquired hypothyroidism 12/12/2021: Advance directive discussed with patient 06/20/2018: Allergic rhinitis 01/28/2017: Anticoagulated on Coumadin Comment: Per Dr. Francis: Aortic (per cardio target INR of 2-2.5.), was placed on coumadin per cardio due to US showing a build up on the bovine Valve, Started in 12/201510/09/2002: Aortic valve disorder Comment: History: s/p AVR October 2002 Assessment: s/p 10/29/2018: Redo sternotomy AVR ( tissue valve size 27 ) was implanted in usual manner, LLANOS ( skeletonized ) to LAD BRIEF FINDINGS: Dense pericardial adhesions, degeneration of previous implanted aortic valve, Excellent quality and flow in LLANOS and good size LAD target Plan: ASA 11/13/2005: Aortic valve replaced Comment: Aortic, was placed on coumadin per cardio due to US showing a build up on the bovine Valve, Started in 12/201511/13/2005: Aortic valve replaced Comment: 10/2018 and anticoagulation was stopped. 10/18/2014: B12 deficiency 10/29/2008: Carotid stenosis, asymptomatic, bilateral Comment: S/P left repair, Sees Edu for yearly US. 08/24/2015: Coronary atherosclerosis Comment: History: S/p CABG with a sequential graft to the diagonal branch, lateral and posterior lateral circumflex branches as well as PDA in October 2002 Assessment: Now s/p CABG x 1 LLANOS to LAD Plan: CAD Core Measures: Aspirin: Yes Beta blockers: Yes Statins: Lipitor 40mg started 3-30, LFTs normal-continue on dc. 06/19/2016: Elevated fasting blood sugar 10/30/2018: Essential hypertension Comment: 01/31/2010: Family history of colon cancer No date: Family history of malignant neoplasm of gastrointestinal tract 12/11/2019: Family history of Parkinson's disease 06/19/2017: History of DVT (deep vein thrombosis) Comment: Patient was on coumadin at the time. spring10/09/2002: History of rheumatic heart disease 12/12/2021: Living will on file Comment: DPA: Elizabet () 12/27/2015: Meniscus tear Comment: Right, minimal. Seen Lamont hebert 01/10/2021: Microscopic hematuria Comment: Saw Luciano 02/2021 and felt further w/u not warranted. 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 Dunn 08/26/2018: Obesity, Class I, BMI 30-34.9 01/10/2021: Other proteinuria Comment: 24 hr patient 01/2021 normal, Repeat yearly 01/10/2021: Other proteinuria Comment: 24 hr patient 01/2021 normal, 12/01/2013: Parkinson disease (HCC) 2006: Postsurgical aortocoronary bypass status No date: Rheum heart dis NEC/NOS Comment: Rheumatic fever 12/17/2016: Seasonal allergies Comment: Sees Dr. Dash 07/26/2015: Sleep disorder 01/28/2017: Synovial cyst of right popliteal space Comment: US ER 01/2017: 3.5 x 1.1 CM 12/03/2013: Vitamin D deficiency Previous Surgical History PAST SURGICAL HISTORY 01/08/2020: 2D ECHO (EXEP) Comment: EF=53%, mild LVH, No date: ABDOMINAL SURGERY HX 10/29/2018: CABG W/ARTERIAL GRAFT SINGLE ARTERIAL GRAFT Comment: used mammorary artery 2003: COLONOSCOPY FLX DX W/COLLJ SPEC WHEN PFRMD Comment: Colonoscopy 03/24/2010: COLONOSCOPY FLX DX W/COLLJ SPEC WHEN PFRMD Comment: Normal, recheck 5 yrs 01/28/2015: COLONOSCOPY FLX DX W/COLLJ SPEC WHEN PFRMD Comment: repeat in 5 yrs 07/03/2021: COLONOSCOPY FLX DX W/COLLJ SPEC WHEN PFRMD Comment: repeat in 5 years-polyp 2002: CORONARY ARTERY BYP W/VEIN & ARTERY GRAFT 4 VEIN Comment: CABG, quadruple grafts 12/25/2016: FECAL OCCULT BLOOD TEST Comment: negative No date: HEART CATHETERIZATION Comment: [facility], No date: HEART SURGERY HX No date: HERNIA REPAIR HX : LAPAROSCOPY SURG CHOLECYSTECTOMY Comment: Cholecystectomy, lap 1997: LEFT HEART CATH,PERCUTANEOUS Comment: Cardiac cath, L heart 10/29/2018: PAST SURGICAL HISTORY OF Comment: Aortic valve replacement with pig valve and anticoagulation stopped No date: RADICAL RESECTION TONSIL W/O CLOSURE No date: REMV CATARACT EXTRACAP,INSERT LENS Comment: 08/22/2020 and 09/14/20202021: REMV CATARACT EXTRACAP,INSERT LENS; Bilateral 10/13/2002: RPLCMT PROST AORTIC VALVE OPEN XCP HOMOGRF/STENT Comment: Aortic valve replacement : RPR 1ST INGUN HRNA AGE 6 YRS/> REDUCIBLE Comment: Hernia repair, inguinal No date: SKIN BIOPSY HX 12/24/2008: TEAEC W/PATCH GRF CAROTID VERTB SUBCLAV NECK INC Comment: Endarterectomy, carotid, Left No date: TONSILLECTOMY HX 02/18/2024: TOTAL KNEE REPLACEMENT; Left Family History FAMILY HISTORY Problem Relation Age of Onset Ischemic Heart Disease Mother Colon Cancer Mother Heart Mother chf Thyroid Mother Diabetes Father other (liver failure/ETOH abuse) Father Ischemic Heart Disease Sister Ischemic Heart Disease Brother Ischemic Heart Disease Brother Hyperlipidemia Sister PTCA/PCI other ([place]) Sister Cancer Brother prostate cancer other ([place]) Brother Hyperlipidemia Child Hyperlipidemia Child Patient Allergies ALLERGIES Allergen Reactions Iodine Other: See Comments ?decreased BP with iodinated contrast during a cardiac cath. Pt reports he was told by the game agent that they almost lost him due to his reaction and was allergic reaction. The patient reports taking 13 hour allergy premedications in the past with Iodinated contrast without experiencing any breakthrough reaction. Penicillin G Hives Current Medications Current Outpatient Medications on File Prior to Visit Medication Sig levothyroxine (SYNTHROID) 25 mcg tablet Take 1 tablet by mouth once daily. Take on empty stomach. For thyroid. atorvastatin (LIPITOR) 80 mg tablet Take 1 tablet by mouth once daily. ezetimibe (ZETIA) 10 mg tablet Take 1 tablet by mouth once daily. metoprolol tartrate, short acting, (LOPRESSOR) 50 mg tablet Take 1 tablet by mouth two times a day. carbidopa-levodopa (SINEMET 25-100) 25-100 mg per tablet TAKE 3 TABLETS 3 TIMES A DAY meloxicam (MOBIC) 15 mg tablet once daily. cyanocobalamin, vitamin B-12, 500 mcg ODT Take 2 tablets by mouth once daily. nitroglycerin sublingual (NITROQUICK) 0.4 mg SL tablet Dissolve 1 tablet under the tongue every 5 minutes as needed. clindamycin (CLEOCIN) 150 mg capsule Take 4 tabs 30-60 min before dental procedures. aspirin, enteric coated (ECOTRIN LOW STRENGTH) 81 mg EC tablet Take 1 tablet by mouth once daily. acetaminophen (TYLENOL) 500 mg tablet Take 1,000 mg by mouth every 8 hours as needed for Pain. fluticasone (FLONASE) 50 mcg/actuation nasal spray Use 1 Blum in each nostril once daily. Rinse mouth after use. Cholecalciferol, Vitamin D3, 2,000 unit cap Take 2 tablets by mouth once daily. omega-3 fatty acids/vitamin e(FISH OIL 1,000 MG CAP) one tablet twice daily multivitamins w-minerals/lut(CENTRUM SILVER TAB) One tablet daily Current Facility-Administered Medications on File Prior to Visit Medication perflutren lipid microspheres 1.3 mL in NaCl (PF) 0.9% 10 mL injection (DEFINITY) sodium chloride 0.9 % (flush) 10 mL (BD POSIFLUSH) Social History Social History Tobacco Use Smoking status: Never Smokeless tobacco: Never Vaping Use Vaping status: Never Used Substance Use Topics Alcohol use: Yes Alcohol/week: 3.0 standard drinks of alcohol Types: 3 Cans of Beer (12oz) per week Comment: social only Drug use: No Review of Symptoms REVIEW OF SYSTEMS See hpi EXAM: BP 96/60 (BP Site: Left Arm, BP Position: Sitting, BP Cuff Size: Large Adult) Pulse 75 Temp 36.6 C (97.9 F) Resp 18 Wt 88.9 kg (196 lb) SpO2 94% BMI 30.70 kg/m General Appearance: Well appearing, alert, in no acute distress, well-hydrated, well nourished.. Health Maintenance List Covid-19 Vaccine() due on 04/05/2024 Influenza Vaccine(1) due on 04/05/2024 LDL Cholesterol due on 01/30/2025 Depression Screening due on 02/09/2025 Anxiety Screening due on 02/09/2025 Diabetes Screening due on 01/30/2027 DTaP,Tdap,Td Vaccine(5 - Td or Tdap) due on 12/04/2027 Advance Directive Discussion Completed RSV Vaccine Completed Shingrix Vaccine Completed Pneumococcal Vaccine: 65+ Completed Colorectal Cancer Screening Discontinued Data reviewed ASSESSMENT/PLAN: 1. Nocturia associated with benign prostatic hyperplasia - ICD9: 600.01, 788.43, ICD10: N40.1, R35.1 Increase flomax to 0.8 If not improving, patient to let me know and will set up with urology Ella Valdovinos PA-C documented in this encounter [facility] 03-11-2024 Instructions Abby Pate MD - 03/11/2024 1:29 PM EDT Try taking 3.5 pills of the carbidopa/levodopa three times a day. You can wait a few weeks to start doing this to see if things improve with a little more time away from the surgery. Watch out for side effects such as nausea, light-headedness, fatigue, hallucinations, or extra movements (dyskinesia). documented in this encounter [facility] 03-11-2024 Note HNO ID: [id number] Author: ABBY PATE MD Service: ? Author Type: Physician Type: Progress Notes Filed: 03/11/2024 14:11 Note Text: Neurology Follow Up Note Subjective Soniya Cooley is a 83 year old male who presents for follow up. CC: PD Summary of prior care: 01/2020 right-handed male with a history of CAD / s/p CABG and AVR, left carotid stenosis s/p CEA, and tremor who presents for evaluation of tremor. His examination demonstrates mild parkinsonian features. His presentation is most consistent with Parkinson's Disease. He has motor features of tremor, mild left sided bradykinesia, and mild gait changes. He has mild hypomimia and hypophonia. 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 First visit 01/2020 taper off primidone, start levodopa, encourage exercise, increase hydration but caution with cardiac disease, start miralax. 05/2020 increase levodopa to 150 mg TID, increase hydration, add miralax. 10/2020 increase to 200 mg TID. 04/2021 increase levodopa to 300 mg TID, add melatonin. 08/2021 taper off levodopa without benefit. 12/2021 had increased to 300 TID, no change. 06/2022 try 250 TID with mild dyskinesia. 03/2023 offered changes deferred. 09/2023 no changes. HPI Current Issues 1. PD - Seems like doing worse - More tremor - Had knee surgery 3 weeks ago, seems a bit worse since then - Taking 3 pills TID still - No clear levodopa side effects - His notices wearing OFF and more clear ON effect, he doesn't seem to notice variability - One fall where was backing up and lost balance falling over the arm of a chair 2. Constipation - Was worse around surgery / pain medicine added stool softener now back to normal with Miralax 3. Sleep - Still trouble urinating all night - Was started on Flomax 7 12 5 Cd/ld 25/100 3 3 3 Current Outpatient Medications Medication Sig Dispense Refill tamsulosin (FLOMAX) 0.4 mg Take 1 capsule by mouth daily at bedtime. 30 capsule 5 levothyroxine (SYNTHROID) 25 mcg tablet Take 1 tablet by mouth once daily. Take on empty stomach. For thyroid. 90 tablet 1 atorvastatin (LIPITOR) 80 mg tablet Take 1 tablet by mouth once daily. 90 tablet 1 ezetimibe (ZETIA) 10 mg tablet Take 1 tablet by mouth once daily. 90 tablet 3 metoprolol tartrate, short acting, (LOPRESSOR) 50 mg tablet Take 1 tablet by mouth two times a day. 180 tablet 1 carbidopa-levodopa (SINEMET 25-100) 25-100 mg per tablet TAKE 3 TABLETS 3 TIMES A DAY 810 tablet 2 meloxicam (MOBIC) 15 mg tablet once daily. cyanocobalamin, vitamin B-12, 500 mcg ODT Take 2 tablets by mouth once daily. nitroglycerin sublingual (NITROQUICK) 0.4 mg SL tablet Dissolve 1 tablet under the tongue every 5 minutes as needed. 5 tablet 1 clindamycin (CLEOCIN) 150 mg capsule Take 4 tabs 30-60 min before dental procedures. 4 capsule 3 aspirin, enteric coated (ECOTRIN LOW STRENGTH) 81 mg EC tablet Take 1 tablet by mouth once daily. acetaminophen (TYLENOL) 500 mg tablet Take 1,000 mg by mouth every 8 hours as needed for Pain. fluticasone (FLONASE) 50 mcg/actuation nasal spray Use 1 Blum in each nostril once daily. Rinse mouth after use. 1 Bottle 5 Cholecalciferol, Vitamin D3, 2,000 unit cap Take 2 tablets by mouth once daily. 0 omega-3 fatty acids/vitamin e(FISH OIL 1,000 MG CAP) one tablet twice daily 0 multivitamins w-minerals/lut(CENTRUM SILVER TAB) One tablet daily 0 Current Facility-Administered Medications Medication Dose Route Frequency Provider Last Rate Last Admin perflutren lipid microspheres 1.3 mL in NaCl (PF) 0.9% 10 mL injection (DEFINITY) INTRAVENOUS DIRECTED PRMarj Mullen MD sodium chloride 0.9 % (flush) 10 mL (BD POSIFLUSH) 10 mL INTRAVENOUS DIRECTED PRN Marj Mackey MD REVIEW OF SYSTEMS His ROS was positive for that mentioned in the HPI. Otherwise a 10-point ROS was completed and was negative. Objective OBJECTIVE 03/11/24 1304 BP: 113/74 BP Site: Left Arm BP Position: Sitting BP Cuff Size: Large Adult Pulse: 66 Weight: 85.6 kg (188 lb 13.2 oz) Height: 170.2 cm (5' 7) General: General Appearance: Well appearing, alert, in no acute distress, well-hydrated, well nourished. Head: Normocephalic Neurologic Exam: Mental Status: He is alert. Attention is intact. Language shows normal comprehension and fluency. Affect is appropriate. Cranial Nerves: Extraocular movements show full and smooth pursuits. No nystagmus. Facial activation is symmetric. Hearing is intact to conversation. There is mild hypomimia. There is mild hypophonia. There is no dysarthria. Tongue is midline. Palate elevates symmetrically. Shoulder shrug is normal. Last dose levodopa 300 mg @ 12, exam 1317. Mildly ON. Motor: Muscle bulk is normal. Muscle power is full. Mild bradykinesia. L>RUE mild-mod severity, mild LLE tremor up to mod with Francisco J, no bradykinesia, no rigidity. No dyskinesia today. 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 [facility] 03-11-2024 History of Present illness Narrative Neurology Follow Up Note Subjective Soniya oColey is a 83 year old male who presents for follow up. CC: PD Summary of prior care: 01/2020 right-handed male with a history of CAD / s/p CABG and AVR, left carotid stenosis s/p CEA, and tremor who presents for evaluation of tremor. His examination demonstrates mild parkinsonian features. His presentation is most consistent with Parkinson's Disease. He has motor features of tremor, mild left sided bradykinesia, and mild gait changes. He has mild hypomimia and hypophonia. 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 First visit 01/2020 taper off primidone, start levodopa, encourage exercise, increase hydration but caution with cardiac disease, start miralax. 05/2020 increase levodopa to 150 mg TID, increase hydration, add miralax. 10/2020 increase to 200 mg TID. 04/2021 increase levodopa to 300 mg TID, add melatonin. 08/2021 taper off levodopa without benefit. 12/2021 had increased to 300 TID, no change. 06/2022 try 250 TID with mild dyskinesia. 03/2023 offered changes deferred. 09/2023 no changes. HPI Current Issues 1. PD - Seems like doing worse - More tremor - Had knee surgery 3 weeks ago, seems a bit worse since then - Taking 3 pills TID still - No clear levodopa side effects - His notices wearing OFF and more clear ON effect, he doesn't seem to notice variability - One fall where was backing up and lost balance falling over the arm of a chair 2. Constipation - Was worse around surgery / pain medicine added stool softener now back to normal with Miralax 3. Sleep - Still trouble urinating all night - Was started on Flomax 7 12 5 Cd/ld 25/100 3 3 3 Current Outpatient Medications Medication Sig Dispense Refill tamsulosin (FLOMAX) 0.4 mg Take 1 capsule by mouth daily at bedtime. 30 capsule 5 levothyroxine (SYNTHROID) 25 mcg tablet Take 1 tablet by mouth once daily. Take on empty stomach. For thyroid. 90 tablet 1 atorvastatin (LIPITOR) 80 mg tablet Take 1 tablet by mouth once daily. 90 tablet 1 ezetimibe (ZETIA) 10 mg tablet Take 1 tablet by mouth once daily. 90 tablet 3 metoprolol tartrate, short acting, (LOPRESSOR) 50 mg tablet Take 1 tablet by mouth two times a day. 180 tablet 1 carbidopa-levodopa (SINEMET 25-100) 25-100 mg per tablet TAKE 3 TABLETS 3 TIMES A DAY 810 tablet 2 meloxicam (MOBIC) 15 mg tablet once daily. cyanocobalamin, vitamin B-12, 500 mcg ODT Take 2 tablets by mouth once daily. nitroglycerin sublingual (NITROQUICK) 0.4 mg SL tablet Dissolve 1 tablet under the tongue every 5 minutes as needed. 5 tablet 1 clindamycin (CLEOCIN) 150 mg capsule Take 4 tabs 30-60 min before dental procedures. 4 capsule 3 aspirin, enteric coated (ECOTRIN LOW STRENGTH) 81 mg EC tablet Take 1 tablet by mouth once daily. acetaminophen (TYLENOL) 500 mg tablet Take 1,000 mg by mouth every 8 hours as needed for Pain. fluticasone (FLONASE) 50 mcg/actuation nasal spray Use 1 Blum in each nostril once daily. Rinse mouth after use. 1 Bottle 5 Cholecalciferol, Vitamin D3, 2,000 unit cap Take 2 tablets by mouth once daily. 0 omega-3 fatty acids/vitamin e(FISH OIL 1,000 MG CAP) one tablet twice daily 0 multivitamins w-minerals/lut(CENTRUM SILVER TAB) One tablet daily 0 Current Facility-Administered Medications Medication Dose Route Frequency Provider Last Rate Last Admin perflutren lipid microspheres 1.3 mL in NaCl (PF) 0.9% 10 mL injection (DEFINITY) INTRAVENOUS DIRECTED PRMarj Mullen MD sodium chloride 0.9 % (flush) 10 mL (BD POSIFLUSH) 10 mL INTRAVENOUS DIRECTED PRN Marj Mackey MD REVIEW OF SYSTEMS His ROS was positive for that mentioned in the HPI. Otherwise a 10-point ROS was completed and was negative. Objective OBJECTIVE 03/11/24 1304 BP: 113/74 BP Site: Left Arm BP Position: Sitting BP Cuff Size: Large Adult Pulse: 66 Weight: 85.6 kg (188 lb 13.2 oz) Height: 170.2 cm (5' 7) General: General Appearance: Well appearing, alert, in no acute distress, well-hydrated, well nourished. Head: Normocephalic Neurologic Exam: Mental Status: He is alert. Attention is intact. Language shows normal comprehension and fluency. Affect is appropriate. Cranial Nerves: Extraocular movements show full and smooth pursuits. No nystagmus. Facial activation is symmetric. Hearing is intact to conversation. There is mild hypomimia. There is mild hypophonia. There is no dysarthria. Tongue is midline. Palate elevates symmetrically. Shoulder shrug is normal. Last dose levodopa 300 mg @ 12, exam 1317. Mildly ON. Motor: Muscle bulk is normal. Muscle power is full. Mild bradykinesia. L>RUE mild-mod severity, mild LLE tremor up to mod with Francisco J, no bradykinesia, no rigidity. No dyskinesia today. Coordination: Finger to nose is smooth without ataxia. Gait: Walks with walker due to recent left knee surgery DATA REVIEW Actual films/image/tracing reviewed and summarized as follows: n/a Old records reviewed and summarized as follows: n/a Assessment/Plan ASSESSMENT & PLAN: Soniya Cooley is a 83 year old right-handed male with a history of CAD / s/p CABG and AVR, left carotid stenosis s/p CEA, and tremor who presents for follow up of PD. His examination shows tremor predominant parkinsonism. 1. Parkinson's Disease - Tremor worse since last visit and only main symptom, minimal bradykinesia or rigidity, gait more from knee right now - Seems to have levodopa benefit though not always clear - Not wearing OFF, no current peak side effects - Can try increasing to 3.5 tabs TID, discussed side effects - Discussed surgeries for tremor, not a great candidate for DBS with age / medical conditions, could consider HIFU if interested which he is not currently - Encouraged exercise 2. Constipation - Miralax 3. RBD, insomnia - Working with PCP on medications for nocturia Follow-up: 6 months Risks & Side Effects of Newly Prescribed Medication, Discussed with Patient: YES Abby Pate MD [facility] Neurology documented in this encounter [facility] 02-25-2024 Telephone encounter Note Call placed to patient and notified of provider message below. Patient verbalizes understanding and will continue taking Flomax. Stacy Varghese RN [facility] 02-25-2024 Miscellaneous Notes Call placed to patient and notified of provider message below. Patient verbalizes understanding and will continue taking Flomax. Stacy Varghese RN Please let patient know it can take 2-6 weeks for medication to become effective. Spoke to patient and . Pt states he is taking the Flomax and he is urinating more than before he started the medication. Autumn Mares MA Is patient currently taking flomax? If he has not started medication he may start it. If he is taking it is he going more or less than before starting medication? Pt and call to report at OV: 02/10/24 pt was prescribed flomax because he was getting up during the night to urinate. Pt reports he had knee surgery a week ago. Pt was supposed to wait two weeks after surgery to start Flomax but wanted to start medication right away. reports now pt is up more during the night urinating every 1.5-2 hours. Pt and are asking what pt should do because they are not getting much sleep at night. Jessica Brown LPN documented in this encounter [facility] 02-25-2024 Telephone encounter Note Please let patient know it can take 2-6 weeks for medication to become effective. [facility] Work Phone: 02-24-2024 Telephone encounter Note Spoke to patient and . Pt states he is taking the Flomax and he is urinating more than before he started the medication. Autumn Mares MA [facility] 02-24-2024 Telephone encounter Note Is patient currently taking flomax? If he has not started medication he may start it. If he is taking it is he going more or less than before starting medication? [facility] 02-24-2024 Telephone encounter Note Pt and call to report at OV: 02/10/24 pt was prescribed flomax because he was getting up during the night to urinate. Pt reports he had knee surgery a week ago. Pt was supposed to wait two weeks after surgery to start Flomax but wanted to start medication right away. reports now pt is up more during the night urinating every 1.5-2 hours. Pt and are asking what pt should do because they are not getting much sleep at night. Jessica Brown LPN [facility] 02-19-2024 Note Discharge Instructions Thank you for allowing [facility] to assist you with your healthcare needs. The following is important discharge information regarding your hospital visit. Your Care Team Dr eDan Caldwell Your Diagnosis CAD (coronary artery disease) DVT (deep venous thrombosis) Hypertension Hypothyroidism Parkinson's disease Postoperative hypoxia Status post total left knee replacement What to do next Follow Up Appointments Follow Up with ONIEL FRANCIS When:Only if needed Where:[address] [place] [address]- Business (1) Follow Up with CHRIS COX When:In 2 weeks Where:[facility] [address] [place] [address]- Business (1) Someone Will Contact You Regarding These Home Health Referrals No home referrals have been ordered for you. No one will call you. Allergies Contrast dye Hypotension penicillin Rash Medications Please ask your primary doctor or pharmacist before taking any other medication not listed, including over the counter drugs, herbal medications, vitamins and or supplements as they may interact with your home medications. What How Much When Why Instructions Last Dose New acetaminophen (acetaminophen 500 mg oral capsule) 2 cap by mouth Three (3) times a day as needed for for pain not to exceed 3000 mg/ day Pickup at [facility]/pharmacy #[id number] New docusate-senna (Senokot S) 2 tab(s) by mouth Two (2) times a day Take until first bowel movement, then as needed New famotidine (Pepcid 20 mg oral tablet) 1 tab(s) by mouth Once a day Pickup at [facility]/pharmacy #[id number] New oxyCODONE (oxyCODONE 5 mg oral tablet ( IMMEDIATE release )) See instructions Status post total left knee replacement 1-2 tab(s) Oral q4h, As needed for as needed for pain Pickup at [facility]/pharmacy #[id number] New rivaroxaban (Xarelto 10 mg oral tablet) 1 tab(s) by mouth Once a day Status post total left knee replacement 1 tablet daily for 2 weeks postoperatively due to past history of DVT Pickup at [facility]/pharmacy #3321 Unchanged acetaminophen-diphenhydramine (Tylenol PM Extra Strength oral tablet) 2 tab(s) by mouth Daily at bedtime as needed for as needed for pain Unchanged aspirin (aspirin 81 mg oral delayed release tablet) 1 tab(s) by mouth Every day Unchanged atorvastatin (atorvastatin 80 mg oral tablet) 1 tab(s) by mouth Every day Unchanged carbidopa-levodopa (carbidopa-levodopa 25 mg-100 mg oral tablet) 3 tab(s) by mouth Three (3) times a day Unchanged cholecalciferol (Vitamin D3) 100 Microgram by mouth Every day Unchanged cyanocobalamin (Vitamin B12 500 mcg oral tablet) 1 tab(s) by mouth Every day Unchanged ezetimibe (ezetimibe 10 mg oral tablet) 1 tab(s) by mouth Every day Unchanged furosemide (Lasix 40 mg oral tablet) 1 tab(s) by mouth Every day Unchanged levothyroxine (Synthroid 25 mcg (0.025 mg) oral tablet) 1 tab(s) by mouth Once a day before a meal Unchanged metoprolol (Metoprolol Tartrate 50 mg oral tablet) 1 tab(s) by mouth Two (2) times a day Unchanged multivitamin (Multivitamin) 1 tab(s) by mouth Every day Unchanged nitroGLYcerin (nitroglycerin 0.4 mg sublingual tablet) 1 tab(s) under the tongue Every 5 minutes as needed for for chest pain Unchanged omega-3 polyunsaturated fatty acids (Fish Oil 1000 mg oral capsule) 1 cap by mouth Once a day Unchanged tamsulosin (tamsulosin 0.4 mg oral capsule) 1 cap by mouth Once a day Pharmacy Information [facility]/pharmacy #[id number]: [address] [place], [place] [id number] [phone] Please take this list to your next doctor s visit. Bring all medications you take, including over the counter medications, herbals and other supplements with you to your doctor s visit. Patients and families are reminded to discard old lists and to update any records with all medication providers or retail pharmacies. Education Materials [facility] Post-operative Instructions PLEASE FOLLOW [facility] POST-OP INSTRUCTIONS GIVEN WATCH FOR SIGNS OF INFECTION: call the office ([phone]) if experencing any of the following: (Usually appears 36-48 hours after surgery) Increased temperature (101 degrees Fahrenheit or higher) Redness or swelling Increased uncontrolled pain Foul odor or drainage Calf discomfort Significant swelling Or if having any chest pain, shortness of breath, or difficulty breathing or swallowing call the office or go the nearest Emergency Room. If you have any questions, please call your doctor at the number listed on your follow up instructions. Form: 338A ([id number]) R: 12/09 Additional Information VACCINATE! IT SAVES LIVES! Members of the community who have not yet received the COVID-19 vaccine and would like to receive it can visit one of [facility] vaccine clinics. There are many vaccine clinic locations within the [facility]. For locations and available times, please visit [email or web address].[place] .gov/. It is important to note that some COVID mobile vaccine clinics are held outdoors and may be canceled in rainy or stormy conditions. To learn more about pediatric vaccinations (ages 5-11), we invite you to visit the [facility] webpage. [email or web address] -[email or web address] To learn more about the COVID-19 vaccine, we invite you to visit the CDC website for a list of frequently asked questions.https://www.cdc.gov/coron avirus/2019-ncov/vaccines/faq.html [facility] Patient Portal Access Instructions: Stay connected with your healthcare team and access your personal medical information anytime with the [facility] Patient Portal. Please follow the directions below to create your [facility] account: 1.Access the email account you provided upon registration to the hospital/physician office.2.Look for an invitation email from [facility].3.Open the email and access the invitation link: Accept Invitation to [facility].4.Fill in the required freeman to create your account. To access your account, visit [email or web address]. Click the blue button labeled Access Patient Portal and then log in with the username and password that you created in the steps above. You will be able to view your test results, lab results, a summary of your visits, upcoming appointments and more. There is also a convenient messaging option where you can send secure messages to your provider. In addition, you will have the ability to download any documents or summaries to your computer and/or send the information securely to a physician. Remember that your healthcare information is confidential, so carefully consider who you will allow to register on the [facility] Patient Portal for access to your information. You can also access the [facility] Patient Portal on the [facility] marti. Simply click on Patient Portal and then log into your account. If you would like to receive a full copy of your medical records, please contact the [facility] Medical Records Department by calling [phone], Saturday through Saturday between 8 a.m. and 4:30 p.m. HOW TO SAFELY DISPOSE OF PRESCRIPTION MEDICATIONS Please use one of the following methods to safely dispose of your unused medications. 1.Use a drug disposal kit: the drug disposal pouch allows you to safely discard your old and unused drugs. Ask your nurse to give you one when you are discharged.2.Visit a local take-back location: Many local pharmacies and police departments have programs that collect old and unwanted prescription drugs. Call your local pharmacy or go to http://Windcentrale.Groxis/5H5Le9n to find one close to you.3.Make use of household items: Use cat litter or old coffee grounds to dispose medications if other options are not available. Mix your drugs with these household products, seal them in an airtight container and throw it into the garbage. Call [facility]: [phone] to be sure your drugs can be disposed of in this way. Some medicines may require a different approach.4.Never flush your medications down the toilet. IF YOU HAVE BEEN PRESCRIBED AN OPIOID FOR PAIN If you have been prescribed an opioid (such as hydrocodone, oxycodone or morphine), it is critical to understand the possible side effects and risks of opioid pain medications. Even when taken as directed, opioids can have several side effects including: Tolerance, meaning you might need to take more of a medication for the same pain relief. Nausea, vomiting and/or constipation. Sleepiness, dizziness, dry mouth, confusion, depression or itching. Physical dependence, meaning you have withdrawal symptoms when a medication is stopped, can develop within a few days. KNOW YOUR RESPONSIBILITIES It is important to know exactly how much and how often to take the opioid pain medications you are prescribed. Never take opioids in higher amounts or more often than prescribed. Do not combine opioids with alcohol or other drugs that cause drowsiness, such as benzodiazepines, also known as benzos, including diazepam and alprazolam, muscle relaxants or sleep aids. Never sell or share prescription opioids. This is illegal. Store opioids in a secure place and out of reach of others (including children, family, friends and visitors). The last page of this document has been signed and retained as a CHART COPY. Signatures Patient Education Materials [address] [place] [address] Post-op Instruction 03/2017 (59722) Medication Leaflets My discharge plan and instructions have been reviewed and explained to me and I,SONIYA COOLEY understand my current condition and have read and understand these discharge instructions. I have received a written copy of the plan/instructions. If I have questions, I am aware that I should contact my doctor. 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 Patient denies any chest pain, shortness of breath, dizziness, lightheadedness, nausea or vomiting, or calf pain. No adverse overnight events. Pain has been controlled on medications. Patient has required 1 L of nasal oxygen overnight. He denies any shortness of breath. Patient states his does tell him he snores at nighttime. I do feel he has undiagnosed sleep apnea which could be playing a part. Patient does have history of benign prostatic hyperplasia and has been able to urinate on his own. Also has history of Parkinson's. He is doing very well from pain standpoint at this time. Plan is for patient to go home when medically stable. He does have outpatient physical therapy established. Objective Vitals and Measurements T: 36.3 C (Oral) TMIN: 36.3 C (Oral) TMAX: 36.6 C (Temporal Artery) HR: 84 (Apical) RR: 18 BP: 103/58 SpO2: 95% HT: 170.2 cm WT: 88 kg BMI: 30.38 Intake and Output 7AM Yesterday to 7AM Today Intake and Output (Last 24 hours) Intake Administration Information 1746.20 Supplement Intake 240.00 Output Urine Voided 3.00 Intra-Op EBL 200.00 Urine Count 2.00 Diaper Count 1.00 Total Summary Total Intake 1986.20 Total Output 203.00 Fluid Balance 1783.20 Physical Exam Vital signs stable, afebrile. Currently on 1 L nasal oxygen SCD's and ABBY Hose in place bilaterally Patient is able to plantarflex and dorsiflex actively Sensation is intact to saphenous, sural, superficial and deep peroneal, and tibial distribution Dressings are clean dry and intact Negative signs and symptoms of DVT, negative Homans bilaterally Weight Dosing Weight: 88 kg (02/18/24) Dosing Weight: 88 kg (02/18/24) Medications Medications (28) Active Scheduled: (16) acetaminophen 500 mg Tablet 1,000 mg 2 tab(s), Oral, q8hr atorvastatin 40 mg tablet 80 mg 2 tab(s), Oral, Daily carbidopa-levodopa 25 mg-100 mg Tablet 3 tab(s), Oral, TID ceFAZolin 2 g, IV Piggyback, q8h docusate sodium 100 mg Capsule 100 mg 1 cap(s), Oral, BID docusate-senna (Senokot S) 50 mg-8.6 mg Tablet 2 tab(s), Oral, BID ezetimibe 10 mg tablet 10 mg 1 tab(s), Oral, Daily famotidine 20 mg tablet 20 mg 1 tab(s), Oral, qDay levothyroxine 50 mcg tablet 25 mcg 0.5 tab(s), Oral, qDayAC magnesium hydroxide 8% Suspension 30 mL UD 30 mL, Oral, Daily meloxicam 7.5 mg tablet 7.5 mg 1 tab(s), Oral, BIDM metoprolol tartrate 50 mg tablet 50 mg 1 tab(s), Oral, BID multivitamin (Myadec) with minerals Therapeutic Multiple Vitamins with Minerals Tablet 1 tab(s), Oral, qDayM ondansetron 2 mg/ 1 mL 2 mL INJ 4 mg 2 mL, IV Push, q8hr rivaroxaban 10 mg tablet 10 mg 1 tab(s), Oral, qDay tamsulosin 0.4 mg Capsule 0.4 mg 1 cap(s), Oral, qDay Continuous: (0) PRN: (12) acetaminophen 325 mg Tablet 650 mg 2 tab(s), Oral, q4h diphenhydramine 25 mg tablet 25 mg 1 tab(s), Oral, q6h diphenhyDRAMINE 50 mg/mL (1 mL) INJ 25 mg 0.5 mL, IV Push, q6h furosemide 40 mg tablet 40 mg 1 tab(s), Oral, Daily ketorolac 30 mg/mL (1 mL) vial 15 mg 0.5 mL, IV Push, q6h morphine 2 mg/mL 1 mL syringe 2 mg 1 mL, IV Push, q1h nitroglycerin 0.4 mg Tablet (25/btl) 0.4 mg 1 tab(s), Sublingual, q5min ondansetron 2 mg/ 1 mL 2 mL INJ 4 mg 2 mL, IV Push, q8h oxycodone 5 mg tablet (immediate release) 5 mg 1 tab(s), Oral, q4h oxycodone 5 mg tablet (immediate release) 10 mg 2 tab(s), Oral, q4h prochlorperazine 10 mg/2 mL vial 5 mg 1 mL, IV Push, q6h sodium biphosphate-sodium phosphate 19 gm-7 gm Enema 133 mL, Rectal, qDay Lab Results 02/18 05:25 WBC: 13.6 H Hgb: 12.7 L Hct: 37.1 L Platelet: 135 Neutrophil %: 86.5 H Glucose Level: 131 H Sodium Level: 139 Potassium Level: 4.2 BUN: 23 H Creatinine Lvl (s): 0.92 EKG No qualifying data available. Assessment/Plan 1. Status post robotic assisted left total knee arthroplasty postop day #1 2. Continue pain medications: Tylenol and oxycodone 3. DVT prophylaxis: Patient is currently on Xarelto 10 mg once daily for 2 weeks postoperatively. He does have past history of DVT. Plan will be for 2 weeks of Xarelto followed by 2 weeks of aspirin 81 mg twice daily. I did discuss this in detail with the patient. 4. Physical therapy: Weightbearing as tolerated with walker 5. H & H: 12.7/37.1, asymptomatic. Labs have been reviewed and stable 6. Reactive Leukocytosis: currently 13.6, afebrile. Patient did receive decadron intra-operatively. No clinical signs of infection. 7. Encouraged incentive spirometry 8. Continue postoperative medical management per medicine 9. Postoperative constipation: Discussed with the patient to continue stool softener until first bowel movement. After first bowel movement patient can then take as needed. They were also instructed that if they are not able to have a bowel movement within 3 days they are to contact our office for change of medication. Patient voiced understanding. 10. Disposition: Plan will be for possible discharge home this afternoon as long as patient is medically stable, tolerates therapy, and pain is adequately controlled. Case was discussed with medicine and plan will be to get patient out of bed up and moving. Recommended incentive spirometer. As long as patient is able to wean off of oxygen plan will be for discharge home today. I did suggest to the patient to have discussion with primary care physician for appropriate workup for possible sleep apnea. He did voiced understanding. Patient would like his prescriptions E scribed to [facility] in [facility]. He has outpatient physical therapy established. He will follow-up per postoperative instructions. Upon discharge he will contact our office with any concerns or questions. I have reviewed the [place] Automated Rx Reporting System (OARRS) report for this patient for refill pattern and other prescriber involvement as part of the appropriate surveillance for the provision of acute and chronic controlled medications. The report was requested and reviewed on the date of this entry, and was considered in the prescribing process This dictation was created using voice recognition software. Phonetic and/or grammatical errors may exist. Digitally Signed by CHRIS COX PA-C on 02/19/2024 08:40 AM [facility] 02-19-2024 Hospital Discharge instructions Patient Education 02/19/2024 08:40:59 5 - [facility] Post-op Instruction 03/2017 (22936) [facility] Post-operative Instructions PLEASE FOLLOW [facility] POST-OP INSTRUCTIONS GIVEN WATCH FOR SIGNS OF INFECTION: call the office ([phone]) if experencing any of the following: (Usually appears 36-48 hours after surgery) Increased temperature (101 degrees Fahrenheit or higher) Redness or swelling Increased uncontrolled pain Foul odor or drainage Calf discomfort Significant swelling Or if having any chest pain, shortness of breath, or difficulty breathing or swallowing call the office or go the nearest Emergency Room. If you have any questions, please call your doctor at the number listed on your follow up instructions. Form: 338A (14832) R: 12/09 Follow Up Care 01/09/2024 07:46:38 With:ONIEL FRANCIS Address: [address] [place] [address]- Business (1) When: only if needed With:CHRIS COX Address: [facility] [address] [place] [id number] Business (1) When:Within 2 Week(s) [facility] 02-19-2024 Note Date of Service February 19, 2024 Subjective The patient was sitting in bed upon examination. Patient denies any chest pain, shortness of breath, dizziness, lightheadedness, nausea or vomiting, or calf pain. No adverse overnight events. Pain has been controlled on medications. Patient has required 1 L of nasal oxygen overnight. He denies any shortness of breath. Patient states his does tell him he snores at nighttime. I do feel he has undiagnosed sleep apnea which could be playing a part. Patient does have history of benign prostatic hyperplasia and has been able to urinate on his own. Also has history of Parkinson's. He is doing very well from pain standpoint at this time. Plan is for patient to go home when medically stable. He does have outpatient physical therapy established. Objective Vitals and Measurements T: 36.3 C (Oral) TMIN: 36.3 C (Oral) TMAX: 36.6 C (Temporal Artery) HR: 84 (Apical) RR: 18 BP: 103/58 SpO2: 95% HT: 170.2 cm WT: 88 kg BMI: 30.38 Intake and Output 7AM Yesterday to 7AM Today Intake and Output (Last 24 hours) Intake Administration Information 1746.20 Supplement Intake 240.00 Output Urine Voided 3.00 Intra-Op EBL 200.00 Urine Count 2.00 Diaper Count 1.00 Total Summary Total Intake 1986.20 Total Output 203.00 Fluid Balance 1783.20 Physical Exam Vital signs stable, afebrile. Currently on 1 L nasal oxygen SCD's and ABBY Hose in place bilaterally Patient is able to plantarflex and dorsiflex actively Sensation is intact to saphenous, sural, superficial and deep peroneal, and tibial distribution Dressings are clean dry and intact Negative signs and symptoms of DVT, negative Homans bilaterally Weight Dosing Weight: 88 kg (02/18/24) Dosing Weight: 88 kg (02/18/24) Medications Medications (28) Active Scheduled: (16) acetaminophen 500 mg Tablet 1,000 mg 2 tab(s), Oral, q8hr atorvastatin 40 mg tablet 80 mg 2 tab(s), Oral, Daily carbidopa-levodopa 25 mg-100 mg Tablet 3 tab(s), Oral, TID ceFAZolin 2 g, IV Piggyback, q8h docusate sodium 100 mg Capsule 100 mg 1 cap(s), Oral, BID docusate-senna (Senokot S) 50 mg-8.6 mg Tablet 2 tab(s), Oral, BID ezetimibe 10 mg tablet 10 mg 1 tab(s), Oral, Daily famotidine 20 mg tablet 20 mg 1 tab(s), Oral, qDay levothyroxine 50 mcg tablet 25 mcg 0.5 tab(s), Oral, qDayAC magnesium hydroxide 8% Suspension 30 mL UD 30 mL, Oral, Daily meloxicam 7.5 mg tablet 7.5 mg 1 tab(s), Oral, BIDM metoprolol tartrate 50 mg tablet 50 mg 1 tab(s), Oral, BID multivitamin (Myadec) with minerals Therapeutic Multiple Vitamins with Minerals Tablet 1 tab(s), Oral, qDayM ondansetron 2 mg/ 1 mL 2 mL INJ 4 mg 2 mL, IV Push, q8hr rivaroxaban 10 mg tablet 10 mg 1 tab(s), Oral, qDay tamsulosin 0.4 mg Capsule 0.4 mg 1 cap(s), Oral, qDay Continuous: (0) PRN: (12) acetaminophen 325 mg Tablet 650 mg 2 tab(s), Oral, q4h diphenhydramine 25 mg tablet 25 mg 1 tab(s), Oral, q6h diphenhyDRAMINE 50 mg/mL (1 mL) INJ 25 mg 0.5 mL, IV Push, q6h furosemide 40 mg tablet 40 mg 1 tab(s), Oral, Daily ketorolac 30 mg/mL (1 mL) vial 15 mg 0.5 mL, IV Push, q6h morphine 2 mg/mL 1 mL syringe 2 mg 1 mL, IV Push, q1h nitroglycerin 0.4 mg Tablet (25/btl) 0.4 mg 1 tab(s), Sublingual, q5min ondansetron 2 mg/ 1 mL 2 mL INJ 4 mg 2 mL, IV Push, q8h oxycodone 5 mg tablet (immediate release) 5 mg 1 tab(s), Oral, q4h oxycodone 5 mg tablet (immediate release) 10 mg 2 tab(s), Oral, q4h prochlorperazine 10 mg/2 mL vial 5 mg 1 mL, IV Push, q6h sodium biphosphate-sodium phosphate 19 gm-7 gm Enema 133 mL, Rectal, qDay Lab Results 02/18 05:25 WBC: 13.6 H Hgb: 12.7 L Hct: 37.1 L Platelet: 135 Neutrophil %: 86.5 H Glucose Level: 131 H Sodium Level: 139 Potassium Level: 4.2 BUN: 23 H Creatinine Lvl (s): 0.92 EKG No qualifying data available. Assessment/Plan 1. Status post robotic assisted left total knee arthroplasty postop day #1 2. Continue pain medications: Tylenol and oxycodone 3. DVT prophylaxis: Patient is currently on Xarelto 10 mg once daily for 2 weeks postoperatively. He does have past history of DVT. Plan will be for 2 weeks of Xarelto followed by 2 weeks of aspirin 81 mg twice daily. I did discuss this in detail with the patient. 4. Physical therapy: Weightbearing as tolerated with walker 5. H & H: 12.7/37.1, asymptomatic. Labs have been reviewed and stable 6. Reactive Leukocytosis: currently 13.6, afebrile. Patient did receive decadron intra-operatively. No clinical signs of infection. 7. Encouraged incentive spirometry 8. Continue postoperative medical management per medicine 9. Postoperative constipation: Discussed with the patient to continue stool softener until first bowel movement. After first bowel movement patient can then take as needed. They were also instructed that if they are not able to have a bowel movement within 3 days they are to contact our office for change of medication. Patient voiced understanding. 10. Disposition: Plan will be for possible discharge home this afternoon as long as patient is medically stable, tolerates therapy, and pain is adequately controlled. Case was discussed with medicine and plan will be to get patient out of bed up and moving. Recommended incentive spirometer. As long as patient is able to wean off of oxygen plan will be for discharge home today. I did suggest to the patient to have discussion with primary care physician for appropriate workup for possible sleep apnea. He did voiced understanding. Patient would like his prescriptions E scribed to [facility] in [facility]. He has outpatient physical therapy established. He will follow-up per postoperative instructions. Upon discharge he will contact our office with any concerns or questions. I have reviewed the [place] Automated Rx Reporting System (OARRS) report for this patient for refill pattern and other prescriber involvement as part of the appropriate surveillance for the provision of acute and chronic controlled medications. The report was requested and reviewed on the date of this entry, and was considered in the prescribing process This dictation was created using voice recognition software. Phonetic and/or grammatical errors may exist. Digitally Signed by CHRIS COX PA-C on 02/19/2024 08:40 AM [facility] 02-18-2024 Note ORIGINAL EXAMINATION: TWO XRAY VIEWS OF THE LEFT KNEE 02/18/2024 3:33 pm COMPARISON: CT dated 01/27/2024 HISTORY: ORDERING SYSTEM PROVIDED HISTORY: Reason for Exam: Status Post Arthroplasty IMPRESSION: Status post left knee arthroplasty, patellar spurring. The hardware is intact. There are surgical skin tony. Expected postoperative changes including subcutaneous swelling, gas and joint fluid. No acute fracture. Hardware is intact. Vascular calcifications. 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 Family's history: negative. Review of Systems Ear/Nose/Mouth/Throat: Negative. Respiratory: Negative. Cardiovascular: cad, htn. Gastrointestinal: Negative. Genitourinary: Negative. Endocrine: hypothyroid. Musculoskeletal: OA. Integumentary: Negative. Neurologic: parkinsons. Health Status Allergies: Allergic Reactions (Selected) Severity Not Documented Contrast dye- Hypotension. Penicillin- Rash., Allergies (2) ActiveSeverityReaction penicillinRash Contrast dyeHypotension Current medications: (Selected) Inpatient Medications Ordered Cyklokapron IVPB: 2,000 mg, 20 mL, 0 mL/hr, Topical (INT), PREOP pharm Decadron: 10 mg, 1 mL, IV Push, AsDirected LR 1,000 mL: 20 mL/hr, Intravenous, Stop: 02/18/24 23:59:00 EDT Naropin 25 mg + Toradol 15 mg + morphine 2.5 mg + EPINEPHrine 0.3 m mg, 5 mL, mL/hr, Other, PREOP pharm Naropin 25 mg + Toradol 15 mg + morphine 2.5 mg + EPINEPHrine 0.3 m mg, 5 mL, mL/hr, Other, PREOP pharm ceFAZolin: 2 gram(s), 200 mL/hr, IV Piggyback, PREOP pharm Documented Medications Documented Fish Oil 1000 mg oral capsule: 1,000 mg, 1 cap(s), Oral, qDay, 90 cap(s), 0 Refill(s) Lasix 40 mg oral tablet: 40 mg, 1 tab(s), Oral, Daily, 0 Refill(s) Metoprolol Tartrate 50 mg oral tablet: 50 mg, 1 tab(s), Oral, BID, 180 tab(s), 0 Refill(s) Multivitamin: 1 tab(s), Oral, Daily, 0 Refill(s) Synthroid 25 mcg (0.025 mg) oral tablet: 25 mcg, 1 tab(s), Oral, qDayAC, 0 Refill(s) Tylenol PM Extra Strength oral tablet: 2 tab(s), Oral, qHS, PRN: as needed for pain, 20 tab(s), 0 Refill(s) Vitamin B12 500 mcg oral tablet: 500 mcg, 1 tab(s), Oral, Daily, 0 Refill(s) Vitamin D3: 100 mcg, 1 tab(s), Oral, Daily, 90 tab(s), 0 Refill(s) aspirin 81 mg oral delayed release tablet: 81 mg, 1 tab(s), Oral, Daily, 0 Refill(s) atorvastatin 80 mg oral tablet: 80 mg, 1 tab(s), Oral, Daily, 0 Refill(s) carbidopa-levodopa 25 mg-100 mg oral tablet: 3 tab(s), Oral, TID, 540 tab(s), 0 Refill(s) ezetimibe 10 mg oral tablet: 10 mg, 1 tab(s), Oral, Daily, 0 Refill(s) nitroglycerin 0.4 mg sublingual tablet: 0.4 mg, 1 tab(s), Sublingual, q5min, PRN: for chest pain, 25 tab(s), 0 Refill(s) tamsulosin 0.4 mg oral capsule: 0.4 mg, 1 cap(s), Oral, qDay, 30 cap(s), 0 Refill(s), Medications (6) Active Scheduled: (5) ceFAZolin 2 gram(s), IV Piggyback, PREOP pharm dexamethasone 10 mg/mL (1mL) SDV 10 mg 1 mL, IV Push, AsDirected ropivacaine 25 mg + ketorolac 15 mg + morphine 2.5 mg + epinephrine 0.3 mg 25 mg 5 mL, Other, PREOP pharm ropivacaine 25 mg + ketorolac 15 mg + morphine 2.5 mg + epinephrine 0.3 mg 25 mg 5 mL, Other, PREOP pharm tranexamic acid 2,000 mg 20 mL, Topical (INT), PREOP pharm Continuous: (1) Lactated Ringers 1,000 mL 1,000 mL, Intravenous, 20 mL/hr PRN: (0) Problem list: Active Problems (8) CAD (coronary artery disease) DVT (deep venous thrombosis) Hypertension Hypothyroidism Osteoarthritis Parkinson's disease Pneumonia Rheumatic fever Histories Past Medical History: No active or resolved past medical history items have been selected or recorded. Family History: No family history items have been selected or recorded. Procedure history: Arthroplasty of knee ([id number]) on 02/18/2024 at 83 Years. Comments: 02/18/2024 10:54 EDT - Chichi Gunderson RN LEFT CABG x 3 - Coronary artery bypass grafts x 3 ([id number]) in 2019 at 78 Years. Tonsillectomy and adenoidectomy ([id number]). Colonoscopy ([id number]). Cholecystectomy ([id number]). CABG x 4 - Coronary artery bypass grafts x 4 ([id number]). Social History: Social & Psychosocial Habits Alcohol 02/18/2024 Use: Current Frequency: 1-2 times per week Substance Abuse 02/18/2024 Use: Never Tobacco 02/18/2024 Tobacco Use: Never (less than 100 in l Home/Environment 02/18/2024 Domestic Concerns None Lives In Single level home Spouse Name ELIZABET Marital Status of Patient if Patient Independent Adult: Nutrition/Health 02/18/2024 Type of diet: Regular Eating Difficulties None Physical Examination Vital Signs 02/18/2024 13:55 EDT Heart Rate Monitored 63 bpm bpm Respiratory Rate - Anes 19 br/min br/min Systolic Blood Pressure Non-Invasive 115 mmHg mmHg Diastolic Blood Pressure Non-Invasive 59 mmHg mmHg 02/18/2024 13:50 EDT Heart Rate Monitored 67 bpm bpm Respiratory Rate - Anes 0 br/min br/min Systolic Blood Pressure Non-Invasive 102 mmHg mmHg Diastolic Blood Pressure Non-Invasive 59 mmHg mmHg 02/18/2024 13:45 EDT Respiratory Rate - Anes 0 br/min br/min 02/18/2024 13:40 EDT Respiratory Rate - Anes 0 br/min br/min Systolic Blood Pressure Non-Invasive 125 mmHg mmHg Diastolic Blood Pressure Non-Invasive 85 mmHg mmHg 02/18/2024 11:01 EDT Temperature Temporal Artery 36.6 DegC Peripheral Pulse Rate 60 bpm Respiratory Rate 17 br/min Vital Signs (last 24 hrs) Last Charted Temp Tzecvmtk87.6 DegC (FEB 17 11:01) Heart Rate [id number] bpm (FEB 17 13:55) CLJ828 mmHg (FEB 17 13:55) DBP59 mmHg (FEB 17 13:55) Measurements from flowsheet : Measurements 02/18/2024 11:01 EDT Height 170.2 cm Admission Weight 88 kg [place] Body Weight 66.12 kg Admission Body Mass Index 30.38 m2 Pain assessment: Pain Assessment 02/18/2024 11:01 EDT Primary Pain Intensity 0 Pain Scale Type 0-10 Pain scale . General: Alert and oriented. Airway: Normal temporomandibular joint mobility. Mallampati classification: II (soft palate, fauces, uvula visible). Head: Normocephalic. Dentition Evaluation: Own teeth. Neck: Supple. Respiratory: Lungs are clear to auscultation. Cardiovascular: pvc. Heart Sounds: Normal. Gastrointestinal: Soft. Musculoskeletal Normal range of motion. Integumentary: Intact. Neurologic: Alert, Oriented. Review / Management Results review: No qualifying data available , Lab results 02/18/2024 13:59 EDT SN - CTm - Surgery Start 02/18/2024 13:57 02/18/2024 13:55 EDT Heart Rate Monitored 63 bpm bpm Respiratory Rate - Anes 19 br/min br/min Systolic Blood Pressure Non-Invasive 115 mmHg mmHg Diastolic Blood Pressure Non-Invasive 59 mmHg mmHg Oxygen Saturation 98 % % 02/18/2024 13:50 EDT Heart Rate Monitored 67 bpm bpm Respiratory Rate - Anes 0 br/min br/min Systolic Blood Pressure Non-Invasive 102 mmHg mmHg Diastolic Blood Pressure Non-Invasive 59 mmHg mmHg Oxygen Saturation 96 % % 02/18/2024 13:45 EDT Respiratory Rate - Anes 0 br/min br/min 02/18/2024 13:40 EDT Respiratory Rate - Anes 0 br/min br/min Systolic Blood Pressure Non-Invasive 125 mmHg mmHg Diastolic Blood Pressure Non-Invasive 85 mmHg mmHg 02/18/2024 13:23 EDT SN - Proc - Anesthesia Type Spinal SN - Proc - Actual Procedure ROBOTIC ASSISTED LEFT TOTAL KNEE ARTHROPLASTY 02/18/2024 13:23 EDT SN - Irl - Irrigant Normal Saline 02/18/2024 13:23 EDT SN - SP - Prep Agents Chloraprep SN - SP - HR - Method Clipped 02/18/2024 13:22 EDT SN - PP - Body Position OP Supine 02/18/2024 13:20 EDT SN - PTCare - Anti-thromboembolism Lorrie Sequential Compression Device (SCD) 02/18/2024 13:20 EDT SN - Assess - LOC Alert SN - Assess - Orientation Oriented X 3 SN - Assess - Post-op Skin Integrity Intact/Dry 02/18/2024 13:19 EDT SN - GA - Medication SODIUM CHLORIDE 0.9% 43.95ML SN - GA - Medication SODIUM CHLORIDE 0.9% 43.95ML SN - GA - Medication SODIUM CHLORIDE 0.9% 50ML SN - GA - Route of Administration Local SN - GA - Route of Administration Local SN - GA - Route of Administration Topical SN - GA - By (Single) SN - GA - By (Single) SN - GA - By (Single) SN - GA - By (Single) SN - GA - By (Single) SN - GA - By (Single) 02/18/2024 13:16 EDT SN - GCD - Post-operative Diagnosis UNILATERAL PRIMARY OSTEOARTHRITIS, LEFT KNEE SN - GCD - Case Level Level 6 02/18/2024 13:11 EDT SN - DRS - Site and Details LEFT KNEE- 02/18/2024 13:08 EDT SN - Cul - Culture Type No Specimen per Surgeon 02/18/2024 13:06 EDT SN - CAt - Case Attendee SN - CAt - Case Attendee SN - CAt - Case Attendee SN - CAt - Case Attendee SN - CAt - Case Attendee SN - CAt - Case Attendee SN - CAt - Case Attendee SN - CAt - Case Attendee SN - CAt - Case Attendee SN - CAt - Case Attendee SN - CAt - Case Attendee SN - CAt - Case Attendee SN - CAt - Case Attendee SN - CAt - Case Attendee SN - CAt - Case Attendee SN - CAt - Case Attendee SN - CAt - Case Attendee SN - CAt - Case Attendee SN - CAt - Role Performed Primary Surgeon SN - CAt - Role Performed Laundry Or Dry Cleaners Counter Clerk 1 SN - CAt - Role Performed Scrub 1 SN - CAt - Role Performed Scrub 1 SN - CAt - Role Performed Teacher Early Childhood Development 1 SN - CAt - Role Performed [employer] SOFTWARE DEVELOPMENT ENGINEER SN - CAt - Role Performed Refrigerator Room Clerk SN - CAt - Role Performed Refrigerator Room Clerk SN - CAt - Role Performed Physician Egg Factory Worker 02/18/2024 12:41 EDT citric acid-sodium citrate Not Done: Other (Not Done) 02/18/2024 11:39 EDT SN - Preop - CTm Pt in SDS Room 02/18/2024 10:41 SN - Preop - CTm Pt Ready for OR/Proced 02/18/2024 11:39 02/18/2024 11:38 EDT Wrist Right 20 gauge Peripheral IV Activity: Insert new site Peripheral IV Dressing Condition: Clean, Dry, Intact Peripheral IV Dressing Activity: Transparent dressing Peripheral IV Line Status/Patency: Continuous infusion Peripheral IV Site Condition: No complications Peripheral IV Equipment: Extension set Peripheral IV Number of Attempts: 2 02/18/2024 11:23 EDT celecoxib 400 mg mg 02/18/2024 11:22 EDT Lactated Ringers Injection 1,000 mL mL 02/18/2024 11:21 EDT famotidine 20 mg mg 02/18/2024 11:17 EDT ABO/Rh Interp A POS ABSC Interp (Gel) Negative ABSC 02/18/2024 11:01 EDT Height 170.2 cm Admission Weight 88 kg [place] Body Weight 66.12 kg Admission Body Mass Index 30.38 m2 Temperature Temporal Artery 36.6 DegC Peripheral Pulse Rate 60 bpm Respiratory Rate 17 br/min Primary Pain Intensity 0 Pain Scale Type 0-10 Pain scale Heart Rhythm Regular Dorsalis Pedis Pulse, Left 2+ Normal Dorsalis Pedis Pulse, Right 2+ Normal Respirations Unlabored All Lobes Breath Sounds Clear Oxygen Therapy Room air Oxygen Saturation 95 % Abdomen Description Non-distended Bowel Sounds All Quadrants Present Skin Temperature Warm Skin Description [place] Skin Integrity Intact Mucous Membrane Color [place] Skin Moisture General Dry Neurological Symptoms Patient denies Characteristics of Speech Clear Level of Consciousness Alert Strength All Extremities Strong Affect/Behavior Appropriate, Calm, Cooperative Orientation Oriented x 4 Sequential Compression Device right knee high applied/on Antiembolism Stocking On/Re-applied right thigh high Standard Safety ID band on, Allergy Band on, Call device within reach, Bed in low position, Wheels locked, Non-Slip footwear 02/18/2024 10:55 EDT Designated Person #1 We May Share MARIS MCNEAL [phone] Designated Person #1 Relationship Spouse Privacy Restrictions Requested None Status N/A Sensory Deficits None Sleep Apnea Snore Yes Sleep Apnea Tired Yes Sleep Apnea Obstruction No Sleep Apnea Pressure Yes Sleep Apnea BMI No Sleep Apnea Age Yes Sleep Apnea Neck No Sleep Apnea Gender Yes Sleep Apnea Score 5 HI Diagnosed With Sleep Apnea No Advanced Directives Yes Advance Directive Type [place] Durable Power of Alignment Specialist for [place], [place] Declaration (Living Will) Advance Directive Location Indicates that [place] has been given copy Infectious Disease Symptoms Patient states no symptoms Infectious Disease Recent Exposure No Alcohol and Drug Use No Employee of Institutional Living No Health Care Employee No History of Exposure to TB No History of Positive Chest X-Ray for TB No History of Positive TB Skin Test No Homeless No Known Immunosuppression No Recent Immigrant No Resident of Institutional Living No Bloody Sputum No Fatigue No Fever No Loss of Appetite No Night Sweats No Persistent Cough > 3 Weeks No Weight Loss No Pre-Op Patient Education NPO after midnight, No smoking after midnight, No makeup, No jewelry, Aware of surgery location, Pre-op education done, 1 bottle CHG wash with instructions given, Instructed to take ordered medications, Anesthesia block education provided SN - Preprocedure Comments Spoke with patient, Verbalizes/Nonverbally indicates understanding, Other: METOPROLOL, LEVOTHYROXINE, CARBIDPOA-LEVODOPA Barriers to Learning None evident Teaching Method Explanation, Printed materials Preferred Spoken Language Citizen Of [place] Preferred Written Language Citizen Of [place] Teaching Evaluation Verbalizes/Nonverbally indicates understanding Total Joint Book Given Yes Safety Brochure Information Reviewed Unable to complete Chaz Welcome Video Viewed No Information Given by Patient Patient's Current Physicians Patient's Current Physicians Discharge To, Anticipated Home with family care Prev Test Positive/Diagnosis w/COVID-19 Yes Previous COVID-19 Positive Date 2020 Current Quarantine/Isolated any Illness No Any Contact with Sick Animals/Birds No Traveled Anywhere in Last 30 Days No Lost Weight Unintentionally Recently No Eat Poorly Due to Decreased Appetite No Total MST Score 0 N/A Personal Devices, Patient Valuables Glasses Anesthesia/Transfusions Prior anesthesia Admission Note-Nursing Same Day Patient History 02/18/2024 10:41 EDT Urinary Elimination Voiding, no difficulties IV Present Present Allergies Yes Anesthesia Extension Set Applied Yes Movie Shot Camera Operator On Yes Consent Form Signed Yes Patient Dressed In Hospital gown CHG Preoperative Wash/Wipe Night before procedure, Day of procedure Preop Nasal Swab Povidone-Iodine CHG Skin Prep Completed for Eligible Surgery History & Physical Update On Chart Yes History & Physical On Chart Yes Belongings At Bedside Glasses, Shirt, Shoes, Shorts Personal Home Medications Received No home medications were brought in NPO Status Maintained Allergy Band on and Verified Yes Patient ID Band on and Verified Yes Implants Verified Yes Pacemaker/AICD Verified Yes Site Verified by Patient/Family Yes Anesthesia Consent Signed Yes Blood Consent Signed Yes Last Fluid Intake 02/17/2024 22:00 Last Food Intake 02/17/2024 22:00 . Assessment and Plan [place] Society of Anesthesiologists (ASA) physical status classification: Class III. Anesthetic Preoperative Plan Premedication: intravenous. Anesthetic technique: Spinal. Induction: intravenously. Maintenance airway: 40%. Regional: Adductor Canal Block. Postoperative pain management: Per surgeon. Informed consent: signed by patient. Digitally Signed by HUSEYIN ANGELO on 02/18/2024 02:08 PM [facility] 02-12-2024 Telephone encounter Note Katia calling from [facility], pt is there for a pre op appt. Requesting last 2 chest xrays. Xrays from 12/14/23 & 01/31/24 faxed to [phone]. Shae Morrissey LPN [facility] 02-12-2024 Miscellaneous Notes Katia calling from [facility], pt is there for a pre op appt. Requesting last 2 chest xrays. Xrays from 12/14/23 & 01/31/24 faxed to [phone]. Shae Morrissey LPN documented in this encounter [facility] 02-10-2024 Instructions Ella Valdovinos PA-C - 02/10/2024 10:18 AM EDT After 2 weeks post op. Start flomax to see if would help with night time frequent urination. Follow up up about 4 weeks for recheck after starting medication. Screening schedule The following prevention plan is recommended: Advance Directive Discussion due on 08/05/2023 Behavioral Health Screening Never done Covid-19 Vaccine( season) due on 09/27/2023 WHAT YOU CAN DO TO PREVENT FALLS Many falls can be prevented. By making some changes, you can lower your chances of falling. Four things YOU can do to prevent falls for you* and your caregiver 1. Begin a regular exercise program Exercise is one of the most important ways to lower your chances of falling. It makes you stronger and helps you feel better. Exercises that improve balance and coordination (like Avery Chi) are the most helpful. Lack of exercise leads to weakness and increases your chances of falling. Ask your doctor or health care provider about the best type of exercise program for you. 2. Have your health care provider review your medicines Have your doctor or pharmacist review all the medicines you take, even [id number] medicines. As you get older, the way medicines work in your body can change. Some medicines, or combinations of medicines, can make you sleepy or dizzy and can cause you to fall. 3. Have your vision checked Have your eyes checked by an eye doctor at least once a year. You may be wearing the wrong glasses or have a condition like glaucoma or cataracts that limits your vision. Poor vision can increase your chances of falling. 4. Make your home safer About half of all falls happen at home. To make your home safer: Remove things you can trip over (like papers, books, clothes, and shoes) from stairs and places where you walk. Remove small throw rugs or use double-sided tape to keep the rugs from slipping. Keep items you use often in cabinets you can reach easily without using a step stool. Have grab bars put in next to your toilet and in the tub or shower. Use non-slip mats in the bathtub and on shower floors. Improve the lighting in your home. As you get older, you need brighter lights to see well. Hang light-weight curtains or shades to reduce glare. Have handrails and lights put in on all staircases. Wear shoes both inside and outside the house. Avoid going barefoot or wearing slippers. For more information, contact: Centers for Disease Control and Prevention www.cdc.gov/injury * This information may not apply if you have certain medical conditions. documented in this encounter [facility] 02-10-2024 Note HNO ID: [id number] Author: ELLA VALDOVINOS PA-C Service: ? Author Type: Physician Egg Factory Worker Type: Progress Notes Filed: 02/10/2024 12:14 Note Text: Soniya Cooley is a 83 year old male here for a Medicare wellness visit. Medicare Health Risk Assessment General Health Very good Exercise: Minutes/Day Exercise: Days/Week Alcohol: Daily Use 2-4 times a month Alcohol: Drinks/Day 1 or 2 Alcohol: 6 or more drinks Never Feel off balance No Concerns: Teeth/Dentures No Concerns: Sexual function No Troubled by feelings None of the above Frequency: Eating healthy diet Several days ADLs requiring help Safety precautions in home/vehicle Yes Smoke, vape, chews tobacco No Difficulty hearing No Difficulty seeing Yes Current Providers Specialists: I have reviewed specialist-related care of the patient in the medical record. Medical/Family history review Reviewed and updated problem list, medical/surgical/family/social history, medications, and allergies. Opioid use review Opioid Medications (last 90 days) No data to display Anxiety/Depression screening PHQ-9 Score: 4 (Minimal Depression) Recommendation: no further intervention at this time Cognitive screening Mini Cog score: 5/5 Cognitive screening reviewed and No further action needed (score 3-5). Functional Observation Was the patient's Timed Up AND Go test unsteady or ? 12 seconds? No Advance Care Planning Surrogate decision maker and/or advance care plan documented Measurements BP 118/72 Pulse 60 Resp 16 Ht 5' 7 (1.70m) Wt 198 lb (89.8kg) BMI 31.00 kg/(m2). Vision Screening: Follows with optometry/ophthalmology Assessment/Plan Medicare annual wellness visit, subsequent (Z00.00) - Counseled on healthy diet and regular exercise - Fall avoidance information provided - Personalized prevention plan provided Chief Complaint Patient presents with: Yearly Exam Medicare Wellness Exam HPI Soniya Cooley is a 83 year old male who presents here today for preop and extensive exam. Patient with hx CAD, HTN, hyperlipidemia, Parkinson's Disease, B12 deficiency, BPH, hypothyroid, and those as below. Patient is scheduled for Left TKA on 02/18/[address] Caldwell. No recent medical changes Did get clearance from cardiology already. Concern today: increase in nocturnal urination. 3-5 times a night. Past medical history, appointments, medications, allergies reviewed. Previous Medical History PAST MEDICAL HISTORY Diagnosis Date Acquired hypothyroidism 03/16/2020 Advance directive discussed with patient 12/12/2021 Allergic rhinitis 06/20/2018 Anticoagulated on Coumadin 01/28/[address] Francis: Aortic (per cardio target INR of 2-2.5.), was placed on coumadin per cardio due to US showing a build up on the bovine Valve, Started in 12/2015 Aortic valve disorder 10/09/2002 History: s/p AVR October 2002 Assessment: s/p 10/29/2018: Redo sternotomy AVR ( tissue valve size 27 ) was implanted in usual manner, LLANOS ( skeletonized ) to LAD BRIEF FINDINGS: Dense pericardial adhesions, degeneration of previous implanted aortic valve, Excellent quality and flow in LLANOS and good size LAD target Plan: ASA Aortic valve replaced 11/13/2005 Aortic, was placed on coumadin per cardio due to US showing a build up on the bovine Valve, Started in 12/2015 Aortic valve replaced 11/13/200510/2018 and anticoagulation was stopped. B12 deficiency 10/18/2014 Carotid stenosis, asymptomatic, bilateral 10/29/2008 S/P left repair, Sees Edu for yearly US. Coronary atherosclerosis 08/24/2015 History: S/p CABG with a sequential graft to the diagonal branch, lateral and posterior lateral circumflex branches as well as PDA in October 2002 Assessment: Now s/p CABG x 1 LLANOS to LAD Plan: CAD Core Measures: Aspirin: Yes Beta blockers: Yes Statins: Lipitor 40mg started 3-30, LFTs normal-continue on dc. Elevated fasting blood sugar 06/19/2016 Essential hypertension 10/30/2018 Family history of colon cancer 01/31/2010 Family history of malignant neoplasm of gastrointestinal tract Family history of Parkinson's disease 12/11/2019 History of DVT (deep vein thrombosis) 06/19/2017 Patient was on coumadin at the time. spring History of rheumatic heart disease 10/09/2002 Living will on file 12/12/2021 DPA: Elizabet () Meniscus tear 12/27/2015 Right, minimal. Seen [facility] Microscopic hematuria 01/10/2021 Saw Wolf 02/2021 and felt further w/u not warranted. 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 Dunn Obesity, Class I, BMI 30-34.9 08/26/2018 Other proteinuria 01/10/2021 24 hr patient 01/2021 normal, Repeat yearly Other proteinuria 01/10/2021 24 hr patient 01/2021 normal, Parkinson disease (HCC) 12/01/2013 Postsurgical aort (more content not included)... [facility] 02-10-2024 History of Present illness Narrative Images from the original note were not included. Soniya Cooley is a 83 year old male here for a Medicare wellness visit. Medicare Health Risk Assessment General Health Very good Exercise: Minutes/Day Exercise: Days/Week Alcohol: Daily Use 2-4 times a month Alcohol: Drinks/Day 1 or 2 Alcohol: 6 or more drinks Never Feel off balance No Concerns: Teeth/Dentures No Concerns: Sexual function No Troubled by feelings None of the above Frequency: Eating healthy diet Several days ADLs requiring help Safety precautions in home/vehicle Yes Smoke, vape, chews tobacco No Difficulty hearing No Difficulty seeing Yes Current Providers Specialists: I have reviewed specialist-related care of the patient in the medical record. Medical/Family history review Reviewed and updated problem list, medical/surgical/family/social history, medications, and allergies. Opioid use review Opioid Medications (last 90 days) No data to display Anxiety/Depression screening PHQ-9 Score: 4 (Minimal Depression) Recommendation: no further intervention at this time Cognitive screening Mini Cog score: 5/5 Cognitive screening reviewed and No further action needed (score 3-5). Functional Observation Was the patient's Timed Up & Go test unsteady or ? 12 seconds? No Advance Care Planning Surrogate decision maker and/or advance care plan documented Measurements BP 118/72 Pulse 60 Resp 16 Ht 5' 7 (1.70m) Wt 198 lb (89.8kg) BMI 31.00 kg/(m^2). Vision Screening: Follows with optometry/ophthalmology Assessment/Plan Medicare annual wellness visit, subsequent (Z00.00) - Counseled on healthy diet and regular exercise - Fall avoidance information provided - Personalized prevention plan provided Chief Complaint Patient presents with: Yearly Exam Medicare Wellness Exam HPI Soniya Cooley is a 83 year old male who presents here today for preop and extensive exam. Patient with hx CAD, HTN, hyperlipidemia, Parkinson's Disease, B12 deficiency, BPH, hypothyroid, and those as below. Patient is scheduled for Left TKA on 02/18/[address] Caldwell. No recent medical changes Did get clearance from cardiology already. Concern today: increase in nocturnal urination. 3-5 times a night. Past medical history, appointments, medications, allergies reviewed. Previous Medical History PAST MEDICAL HISTORY Diagnosis Date Acquired hypothyroidism 03/16/2020 Advance directive discussed with patient 12/12/2021 Allergic rhinitis 06/20/2018 Anticoagulated on Coumadin 01/28/[address] Francis: Aortic (per cardio target INR of 2-2.5.), was placed on coumadin per cardio due to US showing a build up on the bovine Valve, Started in 12/2015 Aortic valve disorder 10/09/2002 History: s/p AVR October 2002 Assessment: s/p 10/29/2018: Redo sternotomy AVR ( tissue valve size 27 ) was implanted in usual manner, LLANOS ( skeletonized ) to LAD BRIEF FINDINGS: Dense pericardial adhesions, degeneration of previous implanted aortic valve, Excellent quality and flow in LLANOS and good size LAD target Plan: ASA Aortic valve replaced 11/13/2005 Aortic, was placed on coumadin per cardio due to US showing a build up on the bovine Valve, Started in 12/2015 Aortic valve replaced 11/13/200510/2018 and anticoagulation was stopped. B12 deficiency 10/18/2014 Carotid stenosis, asymptomatic, bilateral 10/29/2008 S/P left repair, Sees Edu for yearly US. Coronary atherosclerosis 08/24/2015 History: S/p CABG with a sequential graft to the diagonal branch, lateral and posterior lateral circumflex branches as well as PDA in October 2002 Assessment: Now s/p CABG x 1 LLANOS to LAD Plan: CAD Core Measures: Aspirin: Yes Beta blockers: Yes Statins: Lipitor 40mg started 3-30, LFTs normal-continue on dc. Elevated fasting blood sugar 06/19/2016 Essential hypertension 10/30/2018 Family history of colon cancer 01/31/2010 Family history of malignant neoplasm of gastrointestinal tract Family history of Parkinson's disease 12/11/2019 History of DVT (deep vein thrombosis) 06/19/2017 Patient was on coumadin at the time. spring History of rheumatic heart disease 10/09/2002 Living will on file 12/12/2021 DPA: Elizabet () Meniscus tear 12/27/2015 Right, minimal. Seen [facility] Microscopic hematuria 01/10/2021 Saw [facility] 02/2021 and felt further w/u not warranted. 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 Dunn Obesity, Class I, BMI 30-34.9 08/26/2018 Other proteinuria 01/10/2021 24 hr patient 01/2021 normal, Repeat yearly Other proteinuria 01/10/2021 24 hr patient 01/2021 normal, Parkinson disease (HCC) 12/01/2013 Postsurgical aortocoronary bypass status 2006 Rheum heart dis NEC/NOS Rheumatic fever Seasonal allergies 12/17/[address] Dash Sleep disorder 07/26/2015 Synovial cyst of right popliteal space 01/28/2017 US ER 01/2017: 3.5 x 1.1 CM Vitamin D deficiency 12/03/2013 Previous Surgical History PAST SURGICAL HISTORY Procedure Laterality Date 2D ECHO (EXEP) 01/08/2020 EF=53%, mild LVH, ABDOMINAL SURGERY HX CABG W/ARTERIAL GRAFT SINGLE ARTERIAL GRAFT 10/29/2018 used mammorary artery COLONOSCOPY FLX DX W/COLLJ SPEC WHEN PFRMD 2003 Colonoscopy COLONOSCOPY FLX DX W/COLLJ SPEC WHEN PFRMD 03/24/2010 Normal, recheck 5 yrs COLONOSCOPY FLX DX W/COLLJ SPEC WHEN PFRMD 01/28/2015 repeat in 5 yrs COLONOSCOPY FLX DX W/COLLJ SPEC WHEN PFRMD 07/03/2021 repeat in 5 years-polyp CORONARY ARTERY BYP W/VEIN & ARTERY GRAFT 4 VEIN 2002 CABG, quadruple grafts FECAL OCCULT BLOOD TEST 12/25/2016 negative HEART CATHETERIZATION [facility], HEART SURGERY HX HERNIA REPAIR HX LAPAROSCOPY SURG CHOLECYSTECTOMY Cholecystectomy, lap LEFT HEART CATH,PERCUTANEOUS 1998 Cardiac cath, L heart PAST SURGICAL HISTORY OF 10/29/2018 Aortic valve replacement with pig valve and anticoagulation stopped RADICAL RESECTION TONSIL W/O CLOSURE REMV CATARACT EXTRACAP,INSERT LENS 08/22/2020 and 09/14/2020 REMV CATARACT EXTRACAP,INSERT LENS Bilateral 2021 RPLCMT PROST AORTIC VALVE OPEN XCP HOMOGRF/STENT 10/13/2002 Aortic valve replacement RPR 1ST INGUN HRNA AGE 6 YRS/> REDUCIBLE Hernia repair, inguinal SKIN BIOPSY HX TEAEC W/PATCH GRF CAROTID VERTB SUBCLAV NECK INC 12/24/2008 Endarterectomy, carotid, Left TONSILLECTOMY HX Family History FAMILY HISTORY Problem Relation Age of Onset Ischemic Heart Disease Mother Colon Cancer Mother Heart Mother chf Thyroid Mother Diabetes Father other (liver failure/ETOH abuse) Father Ischemic Heart Disease Sister Ischemic Heart Disease Brother Ischemic Heart Disease Brother Hyperlipidemia Sister PTCA/PCI other (jerzyensons) Sister Cancer Brother prostate cancer other (Kurtisensons) Brother Hyperlipidemia Child Hyperlipidemia Child Patient Allergies ALLERGIES Allergen Reactions Iodine Other: See Comments ?decreased BP with iodinated contrast during a cardiac cath. Pt reports he was told by the game agent that they almost lost him due to his reaction and was allergic reaction. The patient reports taking 13 hour allergy premedications in the past with Iodinated contrast without experiencing any breakthrough reaction. Penicillin G Hives Current Medications Current Outpatient Medications on File Prior to Visit Medication Sig levothyroxine (SYNTHROID) 25 mcg tablet Take 1 tablet by mouth once daily. Take on empty stomach. For thyroid. atorvastatin (LIPITOR) 80 mg tablet Take 1 tablet by mouth once daily. ezetimibe (ZETIA) 10 mg tablet Take 1 tablet by mouth once daily. metoprolol tartrate, short acting, (LOPRESSOR) 50 mg tablet Take 1 tablet by mouth two times a day. carbidopa-levodopa (SINEMET 25-100) 25-100 mg per tablet TAKE 3 TABLETS 3 TIMES A DAY meloxicam (MOBIC) 15 mg tablet once daily. nitroglycerin sublingual (NITROQUICK) 0.4 mg SL tablet Dissolve 1 tablet under the tongue every 5 minutes as needed. clindamycin (CLEOCIN) 150 mg capsule Take 4 tabs 30-60 min before dental procedures. aspirin, enteric coated (ECOTRIN LOW STRENGTH) 81 mg EC tablet Take 1 tablet by mouth once daily. acetaminophen (TYLENOL) 500 mg tablet Take 1,000 mg by mouth every 8 hours as needed for Pain. fluticasone (FLONASE) 50 mcg/actuation nasal spray Use 1 Blum in each nostril once daily. Rinse mouth after use. Cholecalciferol, Vitamin D3, 2,000 unit cap Take 2 tablets by mouth once daily. cyanocobalamin, vitamin B-12, 500 mcg ODT Take 2 tablets by mouth once daily. furosemide (LASIX) 40 mg tablet Take 1 tablet by mouth once daily. Per cardio (Patient not taking: Reported on 12/14/2023) omega-3 fatty acids/vitamin e(FISH OIL 1,000 MG CAP) one tablet twice daily multivitamins w-minerals/lut(CENTRUM SILVER TAB) One tablet daily Current Facility-Administered Medications on File Prior to Visit Medication perflutren lipid microspheres 1.3 mL in NaCl (PF) 0.9% 10 mL injection (DEFINITY) sodium chloride 0.9 % (flush) 10 mL (BD POSIFLUSH) Social History Social History Tobacco Use Smoking status: Never Smokeless tobacco: Never Vaping Use Vaping Use: Never used Substance Use Topics Alcohol use: Yes Alcohol/week: 3.0 standard drinks of alcohol Types: 3 Cans of Beer (12oz) per week Comment: social only Drug use: No Review of Symptoms REVIEW OF SYSTEMS GENERAL: No weight loss, malaise or fevers HEENT: No changes in hearing or vision, no nose bleeds or other nasal problems NECK: Negative for lumps, goiter, pain and significant neck swelling RESPIRATORY: Negative for cough, hemoptysis, wheezing, COPD, dyspnea or shortness of breath CARDIOVASCULAR: Negative for chest pain, leg swelling, CHF or palpitations GI: Negative for abdominal discomfort, blood in stools or black stools, change in bowel habit, heart burn, nausea, vomiting : No history of dysuria, frequency or incontinence, See HPI MUSCULOSKELETAL: chronic knee pain SKIN: Negative for lesions, rash, and itching PSYCH: Negative for sleep disturbance, mood disorder and recent psychosocial stressors HEMATOLOGY/LYMPHOLOGY: Negative for prolonged bleeding, bruising easily or swollen nodes ENDOCRINE: Negative for cold or heat intolerance, polyuria, polydipsia and goiter NEURO:+parkinson's with tremor. No history of headaches, syncope, paralysis, seizures EXAM: BP 118/72 Pulse 60 Resp 16 Ht 170.2 cm (5' 7) Wt 89.8 kg (198 lb) BMI 31.01 kg/m General Appearance: Well appearing, alert, in no acute distress, well-hydrated, well nourished.. Skin: Skin color, texture, turgor normal, no suspicious rashes or lesions. Head: Normocephalic, no masses, lesions, tenderness or abnormalities. Eyes: Anicteric sclera. Pupils are equally round and reactive to light. Extraocular movements are intact. . Ears: External ears normal, canals clear, TMs pearly pruett. Nose/Sinuses: Nares normal, septum midline, mucosa normal, no drainage or sinus tenderness. Oropharynx: Lips, mucosa, and tongue normal, teeth and gums normal, oropharynx normal. Neck: Supple, no adenopathy; thyroid symmetric, normal size, no bruits. Lungs: Lungs clear to auscultation. No wheezing, rhonchi, rales.. Heart: RRR without murmur, gallop, or rubs. No ectopy. Abdomen: Normal abdominal exam, Abdomen soft, non-tender. Bowel sounds normal. No masses, organomegaly. Extremities: No deformities, edema, skin discoloration, clubbing or cyanosis. Good capillary refill.. Peripheral Pulses: Normal. Neurologic: Gait normal. Reflexes normal and symmetric. Sensation grossly intact.. Health Maintenance List Covid-19 Vaccine( season) due on 09/27/2023 Influenza Vaccine(1) due on 04/05/2024 LDL Cholesterol due on 01/30/2025 Diabetes Screening due on 01/30/2027 DTaP,Tdap,Td Vaccine(4 - Td or Tdap) due on 12/04/2027 Advance Directive Discussion Completed Behavioral Health Screening Completed RSV Vaccine Completed Shingrix Vaccine Completed Pneumococcal Vaccine: 65+ Completed Colorectal Cancer Screening Discontinued Data reviewed CXR 01/31/24: WNL Latest Ref Rng 01/31/2024 WBC 3.70 - 11.00 k/uL 7.19 RBC 4.20 - 6.00 m/uL 4.67 Hemoglobin 13.0 - 17.0 g/dL 15.1 Hematocrit 39.0 - 51.0 % 44.9 MCV 80.0 - 100.0 fL 96.1 MCH 26.0 - 34.0 pg 32.3 MCHC 30.5 - 36.0 g/dL 33.6 RDW-CV 11.5 - 15.0 % 12.9 Platelet Count 150 - 400 k/uL 157 MPV 9.0 - 12.7 fL 12.0 Neut% % 40.6 Abs Neut (ANC) 1.45 - 7.50 k/uL 2.93 Lymph% % 43.4 Abs Lymph 1.00 - 4.00 k/uL 3.12 [place]% % 9.5 Abs [place] <0.87 k/uL 0.68 Eosin% % 5.6 Abs Eosin <0.46 k/uL 0.40 Baso% % 0.6 Abs Baso <0.11 k/uL 0.04 Immature Gran % % 0.3 IMMATURE GRANS (ABS) <0.10 k/uL <0.03 NRBC /100 WBC 0.0 Absolute nRBC <0.01 k/uL <0.01 DTYPE Auto Color Yellow Yellow Clarity Clear Clear Glucose, Urine Negative Negative Bilirubin, Urine Negative Negative Ketones, Urine Negative Negative Specific [place], Ur 1.005 - 1.030 1.020 Hemoglobin/Blood,Ur Negative Negative pH, Urine <8.5 6.0 Protein, Urine Negative Negative Urobilinogen 0.2-1.0 EU/dL 0.2 EU/dL Nitrites Negative Negative Leukest Negative Negative WBC, Urine 0-5 /HPF 0-5 /HPF RBC, Urine 0-2 /HPF 0-2 /HPF Bacteria Negative /HPF Negative Epithelial Cells /HPF None Seen Hyaline Cast 0 /LPF 0 /LPF Protein, Total 6.3 - 8.0 g/dL 6.9 Albumin 3.9 - 4.9 g/dL 4.2 Calcium 8.5 - 10.2 mg/dL 9.4 Bilirubin, Total 0.2 - 1.3 mg/dL 0.6 Alkaline Phosphatase 38 - 113 U/L 97 AST 14 - 40 U/L 34 ALT 10 - 54 U/L 41 Glucose 74 - 99 mg/dL 99 BUN 9 - 24 mg/dL 23 Creatinine 0.73 - 1.22 mg/dL 0.77 Sodium 136 - 144 mmol/L 140 Potassium 3.7 - 5.1 mmol/L 4.3 Chloride 98 - 107 mmol/L 105 CO2 22 - 30 mmol/L 24 Anion Gap 8 - 15 mmol/L 11 eGFR >=60 mL/min/1.73m 89 Total Cholesterol, Nonfasting <200 mg/dL 106 Triglycerides, Nonfasting <150 mg/dL 63 HDL Cholesterol, Nonfasting >39 mg/dL 45 LDL Cholesterol, Nonfasting <100 mg/dL 48 Non HDL Cholesterol, Nonfasting <130 mg/dL 61 VLDL Cholesterol, Nonfasting <30 mg/dL 13 Total Chol/HDL Ratio, Nonfasting <5.10 mg/dL 2.36 LDL/HDL Ratio, Nonfasting <2.54 mg/dL 1.07 Hemoglobin A1C 4.3 - 5.6 % 5.8 (H) Estimated Average Glucose mg/dL 120 Vitamin B12 232 - 1,245 pg/mL 414 Vitamin D 25 Hydroxy 31.0 - 80.0 ng/mL 56.2 TSH 0.270 - 4.200 mIU/L 2.670 ASSESSMENT/PLAN: 1. Medicare annual wellness visit, subsequent - ICD9: V70.0, ICD10: Z00.00 (primary diagnosis) - Counseled on healthy diet and regular exercise - Follow up for annual exam in one year 2. Advance directive discussed with patient - ICD9: V65.49, ICD10: Z71.89 Up to date 3. Arthritis of knee - ICD9: 716.96, ICD10: M17.10 Patient is medically cleared for surgery 4. Acquired hypothyroidism - ICD9: 244.9, ICD10: E03.9 - Instructed patient on importance of taking on an empty stomach either first thing in the morning or at bedtime. - continue current dose of Synthroid 5. Elevated blood sugar - ICD9: 790.29, ICD10: R73.9 stable 6. B12 deficiency - ICD9: 266.2, ICD10: E53.8 Overall stable. Low normal. Patient can start OTC b12 every other day 7. Mixed hyperlipidemia - ICD9: 272.2, ICD10: E78.2 - Controlled - Continue current medications - Counseled on healthy diet and regular exercise 8. Essential hypertension - ICD9: 401.9, ICD10: I10 - Controlled - Continue current medications - Recommend home blood pressure monitoring, to bring results to next visit - Encouraged sodium restriction, DASH or Mediterranean diet - Recommend regular aerobic exercise 9. 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 - ICD9: 414.01, ICD10: I25.10 Continue with cardio Stable 10. Aortic valve replaced - ICD9: V43.3, ICD10: Z95.2 Cont with cardio stable 11. Parkinson's disease with dyskinesia and fluctuating manifestations (HCC) - ICD9: 332.0, ICD10: G20.B2 Continue with neuro Stable. 12. BPH associated with nocturia - ICD9: 600.01, 788.43, ICD10: N40.1, R35.1 Will have patient trial flomax. Start this after surgery and then follow up 1 month later. Follow up around 2 months for recheck on nocturia. Otherwise wellness in 1 year. Ella Valdovinos PA-C I spent a total of 40 minutes on the date of the service which included preparing to see the patient, [id number] patient care, completing clinical documentation, obtaining and/or reviewing separately obtained history, performing a medically appropriate examination, counseling and educating the patient/family/caregiver, ordering medications, tests, or procedures, and communicating results to the patient/family/caregiver. documented in this encounter [facility] 02-05-2024 Note HNO ID: [id number] Author: ZINA SANTIAGO MA Service: ? Author Type: Thermal Cutting Tracer Machine Operator Type: Progress Notes Filed: 02/05/2024 12:20 Note Text: POPULATION HEALTH NAVIGATION OUTREACH Action/FYI Patient is on [facility] CURRENT ROSTER Workbench list for below and needs appointment to address: Advance Directive Discussion Behavioral Health Screening Covid-19 Vaccine( season) Hemoglobin A1C (%) Date Value 01/31/2024 5.8 06/09/2021 5.7 Patient due for: Medicare Annual Wellness Visit Advance Directives Patient already scheduled for AWV. Updated notes for AWV to please address due care gaps and HCC gap closure. No HCC Reason for Outreach Care Gap/HCC or Scheduling Wellness Visits Care Gaps due: Medicare Annual Wellness Visit Advance Directives Patient Contacted: Unable or unnecessary to reach patient: Patient already scheduled Updated appointment notes Navigation Signature: Zina Santiago MA February 05, 2024 12:19 PM [facility] 02-05-2024 History of Present illness Narrative POPULATION HEALTH NAVIGATION OUTREACH Action/FYI Patient is on [facility] CURRENT ROSTER Workbench list for below and needs appointment to address: Advance Directive Discussion Behavioral Health Screening Covid-19 Vaccine( season) Hemoglobin A1C (%) Date Value 01/31/2024 5.8 06/09/2021 5.7 Patient due for: Medicare Annual Wellness Visit Advance Directives Patient already scheduled for AWV. Updated notes for AWV to please address due care gaps and HCC gap closure. No HCC Reason for Outreach Care Gap/HCC or Scheduling Wellness Visits Care Gaps due: Medicare Annual Wellness Visit Advance Directives Patient Contacted: Unable or unnecessary to reach patient: Patient already scheduled Updated appointment notes Navigation Signature: Zina Santiago MA February 05, 2024 12:19 PM documented in this encounter [facility] 02-05-2024 Telephone encounter Note Patient calls and notified of results. Patient verbalizes understanding. Stacy Varghese RN [facility] 02-05-2024 Miscellaneous Notes Patient calls and notified of results. Patient verbalizes understanding. Stacy Varghese RN Left additional message for patient to contact office. Prudencio Barlow MA Left message for pt to contact office. Hazel Sellers LPN Repeat CXR is normal. Ella Valdovinos PA-C documented in this encounter [facility] 02-05-2024 Note Patient Outreach (NE TNAV) SONIYA COOLEY ([id number]) 1940 M Date Time Provider Department 02/05/24 [facility] During your visit today, we recorded the following information about you: Zina Santiago MA 02/05/2024 12:20 PM Signed POPULATION HEALTH NAVIGATION OUTREACH Action/FYI Patient is on [facility] CURRENT ROSTER Workbench list for below and needs appointment to address: Advance Directive Discussion Behavioral Health Screening Covid-19 Vaccine( season) Hemoglobin A1C (%) Date Value 01/31/2024 5.8 06/09/2021 5.7 Patient due for: Medicare Annual Wellness Visit Advance Directives Patient already scheduled for AWV. Updated notes for AWV to please address due care gaps and HCC gap closure. No HCC Reason for Outreach Care Gap/HCC or Scheduling Wellness Visits Care Gaps due: Medicare Annual Wellness Visit Advance Directives Patient Contacted: Unable or unnecessary to reach patient: Patient already scheduled Updated appointment notes Navigation Signature: Zina Santiago MA February 05, 2024 12:19 PM Allergies As of Date: 02/05/2024 Noted Allergy Reaction IODINE 10/09/2002 14 - Other: See Comments Comments: ?decreased BP with iodinated contrast during a cardiac cath. Pt reports he was told by the game agent that they almost lost him due to his reaction and was allergic reaction. The patient reports taking 13 hour allergy premedications in the past with Iodinated contrast without experiencing any breakthrough reaction. PENICILLIN G 10/09/2002 4 - Hives Date Reviewed: 12/31/2023 Reviewed by: Oniel Francis MD - Fully Assessed Reason for Visit: Population Health Navigation Outreach [[id number]] Cmt: [facility] 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 - AWV, Care gaps, - [place] [facility] Prescriptions as of 02/05/2024 - levothyroxine (SYNTHROID) 25 mcg tablet Take 1 tablet by mouth once daily. Take on empty stomach. For thyroid. - atorvastatin (LIPITOR) 80 mg tablet Take 1 tablet by mouth once daily. - ezetimibe (ZETIA) 10 mg tablet Take 1 tablet by mouth once daily. - metoprolol tartrate, short acting, (LOPRESSOR) 50 mg tablet Take 1 tablet by mouth two times a day. - carbidopa-levodopa (SINEMET 25-100) 25-100 mg per tablet TAKE 3 TABLETS 3 TIMES A DAY - meloxicam (MOBIC) 15 mg tablet once daily. - cyanocobalamin, vitamin B-12, 500 mcg ODT Take 2 tablets by mouth once daily. - nitroglycerin sublingual (NITROQUICK) 0.4 mg SL tablet Dissolve 1 tablet under the tongue every 5 minutes as needed. - furosemide (LASIX) 40 mg tablet Take 1 tablet by mouth once daily. Per cardio - clindamycin (CLEOCIN) 150 mg capsule Take 4 tabs 30-60 min before dental procedures. - aspirin, enteric coated (ECOTRIN LOW STRENGTH) 81 mg EC tablet Take 1 tablet by mouth once daily. - acetaminophen (TYLENOL) 500 mg tablet Take 1,000 mg by mouth every 8 hours as needed for Pain. - fluticasone (FLONASE) 50 mcg/actuation nasal spray Use 1 Blum in each nostril once daily. Rinse mouth after use. - Cholecalciferol, Vitamin D3, 2,000 unit cap Take 2 tablets by mouth once daily. - omega-3 fatty acids/vitamin e(FISH OIL 1,000 MG CAP) one tablet twice daily - multivitamins w-minerals/lut(CENTRUM SILVER TAB) One tablet daily Facility-Administered Medications as of 02/05/2024 - perflutren lipid microspheres 1.3 mL in NaCl (PF) 0.9% 10 mL injection (DEFINITY) - sodium chloride 0.9 % (flush) 10 mL (BD POSIFLUSH) Meds Comments as of 11/04/2018: 11/04/18 The medications are managed by this patient by: PATIENT and SPOUSE Rhea Irwin Rupert Pharm-T Problem List As Of Date 02/05/2024 Noted Resolved Aortic valve disorder [I35.9] 10/09/2002 01/14/2020 Mixed hyperlipidemia [E78.2] 10/09/2002 History of rheumatic heart disease [Z86.79] 10/09/2002 Aortic valve replaced [Z95.2] 11/13/2005 Benign localized prostatic hyperplasia with low*2006 Postsurgical aortocoronary bypass status [Z95.1]2006 Abnormal involuntary movements [R25.8, R25.9] 12/16/2007 02/28/2012 Cervicalgia [M54.2] 10/22/2008 02/22/2011 Carotid stenosis, asymptomatic, bilateral [I65.*10/29/2008 Family history of colon cancer [Z80.0] 01/31/2010 07/03/2021 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/01/2013 Vitamin D deficiency [E55.9] 12/03/2013 B12 deficiency [E53.8] 10/18/2014 Nocturnal hypoxemia [G47.34] 07/26/2015 Sleep disorder [G47.9] 07/26/2015 Coronary 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quechan ballard*08/24/2015 Meniscus tear [S83.209A] 12/27/2015 Elevated blood sugar [R73.9] 06/19/2016 Seasonal allergies [J30.2] 12/17/2016 01/14/2020 Medicare annual wellness visit, subsequent [Z00*12/17/2016 Colon cancer screening [Z12.11] 12/17/2016 01/14/2020 Synovial cyst of right popliteal space [M71.21] 01/28/2017 History of DVT (deep vein thrombosis) [Z86.718] 06/19/2017 Nasir (more content not included)... [facility] 02-04-2024 Telephone encounter Note Left additional message for patient to contact office. Prudencio Barlow MA [facility] 02-03-2024 Telephone encounter Note Left message for pt to contact office. Hazel Sellers LPN [facility] 02-03-2024 Telephone encounter Note Repeat CXR is normal. Ella Valdovinos PA-C [facility] 01-31-2024 History of Present illness Narrative Radiology Service Progress Note PATIENT NAME: Soniya Cooley DATE OF SERVICE: January 31, 2024 TIME: 8:11 AM PATIENT IDENTITY VERIFICATION COMPLETED USING TWO (2) IDENTIFIERS: Name and Date of confirmed by patient verbally. FALL SCREENING: Has the patient had 2 falls in the last year or 1 fall with injury or currently using an Ambulatory Assistive Device (Walker, Cane, Wheelchair, Crutches, etc.)? No PATIENT GENDER DATA: Male PATIENT RELEVANT IMPLANT DATA REVIEWED: Not Applicable PATIENT PRESENTS WITH AN IMPLANTABLE OR ATTACHED STARCHMAKER: No RADIOLOGY DEPARTMENT: General X-ray: Exam(s) Completed: Chest X-Ray PERIPHERAL IV DATA: Not applicable SIGNED BY: RT Teresa(Elvira) January 31, 2024 8:11 AM documented in this encounter [facility] 01-31-2024 Note HNO ID: [id number] Author: IFEANYI WILCOX RT(R) Service: Radiology Author Type: Technologist Type: Progress Notes Filed: 01/31/2024 08:18 Note Text: Radiology Service Progress Note PATIENT NAME: Soniya Cooley DATE OF SERVICE: January 31, 2024 TIME: 8:11 AM PATIENT IDENTITY VERIFICATION COMPLETED USING TWO (2) IDENTIFIERS: Name and Date of confirmed by patient verbally. FALL SCREENING: Has the patient had 2 falls in the last year or 1 fall with injury or currently using an Ambulatory Assistive Device (Walker, Cane, Wheelchair, Crutches, etc.)? No PATIENT GENDER DATA: Male PATIENT RELEVANT IMPLANT DATA REVIEWED: Not Applicable PATIENT PRESENTS WITH AN IMPLANTABLE OR ATTACHED STARCHMAKER: No RADIOLOGY DEPARTMENT: General X-ray: Exam(s) Completed: Chest X-Ray PERIPHERAL IV DATA: Not applicable SIGNED BY: RT Teresa(R) January 31, 2024 8:11 AM [facility] 01-27-2024 Note ORIGINAL EXAMINATION: CT OF THE LEFT KNEE WITHOUT CONTRAST 01/27/2024 1:20 pm TECHNIQUE: CT of the left knee was performed without the administration of intravenous contrast. Multiplanar reformatted images are provided for review. Automated exposure control, iterative reconstruction, and/or weight based adjustment of the mA/kV was utilized to reduce the radiation dose to as low as reasonably achievable. COMPARISON: None. HISTORY ORDERING SYSTEM PROVIDED HISTORY: Reason for Exam: PRIMARY OSTEOARTHRITIS LEFT KNEE FINDINGS: Survey images of the left hip: Degenerative changes. No fracture or aggressive bony lesion. Vascular calcifications noted. Left knee: Tricompartmental degenerative changes are most advanced in the medial tibiofemoral and patellofemoral compartments. A small joint effusion is identified. Survey images left ankle: No aggressive bony lesion. IMPRESSION: Tricompartmental degenerative changes of the left knee. Small joint effusion. Interpreted by: Shorty Loredo MD Preliminary Report By: Shorty Loredo MD Electronically signed By Shorty Loredo MD Dictated Date: 01/27/2024 1:33:01 PM Prelim Date: 01/27/2024 1:37:20 PM Sign Date: 01/27/2024 1:37:20 PM Ordering Provider: [facility] 12-31-2023 Instructions Oniel Francis MD - 12/31/2023 11:44 AM EDT Come in to get the repeat chest x-ray on or after 01/17/2024 along with labs and urine test. You do not need to fast. documented in this encounter [facility] 12-31-2023 Note HNO ID: [id number] Author: ONIEL FRANCIS MD Service: ? Author Type: Physician Type: Progress Notes Filed: 12/31/2023 19:09 Note Text: Chief Complaint Patient presents with: Follow Up HPI Soniya Cooley is a 83 year old male who presents here today for follow up on Urgent Care visit. Patient was seen in Urgent Care on 12/14/2023 for cough and congestion. Was treated with doxy 100 mg twice a day for a week. Patient indicated that his cough and congestion has cleared up and is feeling good. Has slight shortness of breath but feels it's similar to his normal. No fevers or chills. X-ray showed Questionable vague hazy opacity in the left midlung. Consider short-term follow-up. Past medical history, appointments, medications, allergies reviewed. Previous Medical History PAST MEDICAL HISTORY Diagnosis Date Acquired hypothyroidism 03/16/2020 Advance directive discussed with patient 12/12/2021 Allergic rhinitis 06/20/2018 Anticoagulated on Coumadin 01/28/[address] Francis: Aortic (per cardio target INR of 2-2.5.), was placed on coumadin per cardio due to US showing a build up on the bovine Valve, Started in 12/2015 Aortic valve disorder 10/09/2002 History: s/p AVR October 2002 Assessment: s/p 10/29/2018: Redo sternotomy AVR ( tissue valve size 27 ) was implanted in usual manner, LLANOS ( skeletonized ) to LAD BRIEF FINDINGS: Dense pericardial adhesions, degeneration of previous implanted aortic valve, Excellent quality and flow in LLANOS and good size LAD target Plan: ASA Aortic valve replaced 11/13/2005 Aortic, was placed on coumadin per cardio due to US showing a build up on the bovine Valve, Started in 12/2015 Aortic valve replaced 11/13/200510/2018 and anticoagulation was stopped. B12 deficiency 10/18/2014 Carotid stenosis, asymptomatic, bilateral 10/29/2008 S/P left repair, Sees [facility] for yearly US. Coronary atherosclerosis 08/24/2015 History: S/p CABG with a sequential graft to the diagonal branch, lateral and posterior lateral circumflex branches as well as PDA in October 2002 Assessment: Now s/p CABG x 1 LLANOS to LAD Plan: CAD Core Measures: Aspirin: Yes Beta blockers: Yes Statins: Lipitor 40mg started 3-30, LFTs normal-continue on dc. Elevated fasting blood sugar 06/19/2016 Essential hypertension 10/30/2018 Family history of colon cancer 01/31/2010 Family history of malignant neoplasm of gastrointestinal tract Family history of Parkinson's disease 12/11/2019 History of DVT (deep vein thrombosis) 06/19/2017 Patient was on coumadin at the time. spring History of rheumatic heart disease 10/09/2002 Living will on file 12/12/2021 DPA: Elizabet () Meniscus tear 12/27/2015 Right, minimal. Seen [facility] Microscopic hematuria 01/10/2021 Saw [facility] 02/2021 and felt further w/u not warranted. 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 Dunn Obesity, Class I, BMI 30-34.9 08/26/2018 Other proteinuria 01/10/2021 24 hr patient 01/2021 normal, Repeat yearly Other proteinuria 01/10/2021 24 hr patient 01/2021 normal, Parkinson disease (HCC) 12/01/2013 Postsurgical aortocoronary bypass status 2006 Rheum heart dis NEC/NOS Rheumatic fever Seasonal allergies 12/17/[address] Dash Sleep disorder 07/26/2015 Synovial cyst of right popliteal space 01/28/2017 US ER 01/2017: 3.5 x 1.1 CM Vitamin D deficiency 12/03/2013 Previous Surgical History PAST SURGICAL HISTORY Procedure Laterality Date 2D ECHO (EXEP) 01/08/2020 EF=53%, mild LVH, ABDOMINAL SURGERY HX CABG W/ARTERIAL GRAFT SINGLE ARTERIAL GRAFT 10/29/2018 used mammorary artery COLONOSCOPY FLX DX W/COLLJ SPEC WHEN PFRMD 2003 Colonoscopy COLONOSCOPY FLX DX W/COLLJ SPEC WHEN PFRMD 03/24/2010 Normal, recheck 5 yrs COLONOSCOPY FLX DX W/COLLJ SPEC WHEN PFRMD 01/28/2015 repeat in 5 yrs COLONOSCOPY FLX DX W/COLLJ SPEC WHEN PFRMD 07/03/2021 repeat in 5 years-polyp CORONARY ARTERY BYP W/VEIN AND ARTERY GRAFT 4 VEIN 2002 CABG, quadruple grafts FECAL OCCULT BLOOD TEST 12/25/2016 negative HEART CATHETERIZATION [facility], HEART SURGERY HX HERNIA REPAIR HX LAPAROSCOPY SURG CHOLECYSTECTOMY Cholecystectomy, lap LEFT HEART CATH,PERCUTANEOUS 1998 Cardiac cath, L heart PAST SURGICAL HISTORY OF 10/29/2018 Aortic valve replacement with pig valve and anticoagulation stopped RADICAL RESECTION TONSIL W/O CLOSURE REMV CATARACT EXTRACAP,INSERT LENS 08/22/2020 and 09/14/2020 REMV CATARACT EXTRACAP,INSERT LENS Bilateral 2021 RPLCMT PROST AORTIC VALVE OPEN XCP HOMOGRF/STENT 10/13/2002 Aortic valve replacement RPR 1ST INGUN HRNA AGE 5 YRS/> REDUCIBLE Hernia repair, inguinal SKIN BIOPSY HX TEAEC W/PATCH GRF CAROTID VERTB SUBCLAV NECK INC 12/24/2008 Endarterec (more content not included)... [facility] 12-31-2023 History of Present illness Narrative Chief Complaint Patient presents with: Follow Up HPI Soniya Cooley is a 83 year old male who presents here today for follow up on Urgent Care visit. Patient was seen in Urgent Care on 12/14/2023 for cough and congestion. Was treated with doxy 100 mg twice a day for a week. Patient indicated that his cough and congestion has cleared up and is feeling good. Has slight shortness of breath but feels it's similar to his normal. No fevers or chills. X-ray showed Questionable vague hazy opacity in the left midlung. Consider short-term follow-up. Past medical history, appointments, medications, allergies reviewed. Previous Medical History PAST MEDICAL HISTORY Diagnosis Date Acquired hypothyroidism 03/16/2020 Advance directive discussed with patient 12/12/2021 Allergic rhinitis 06/20/2018 Anticoagulated on Coumadin 01/28/[address] Francis: Aortic (per cardio target INR of 2-2.5.), was placed on coumadin per cardio due to US showing a build up on the bovine Valve, Started in 12/2015 Aortic valve disorder 10/09/2002 History: s/p AVR October 2002 Assessment: s/p 10/29/2018: Redo sternotomy AVR ( tissue valve size 27 ) was implanted in usual manner, LLANOS ( skeletonized ) to LAD BRIEF FINDINGS: Dense pericardial adhesions, degeneration of previous implanted aortic valve, Excellent quality and flow in LLANOS and good size LAD target Plan: ASA Aortic valve replaced 11/13/2005 Aortic, was placed on coumadin per cardio due to US showing a build up on the bovine Valve, Started in 12/2015 Aortic valve replaced 11/13/200510/2018 and anticoagulation was stopped. B12 deficiency 10/18/2014 Carotid stenosis, asymptomatic, bilateral 10/29/2008 S/P left repair, Sees [facility] for yearly US. Coronary atherosclerosis 08/24/2015 History: S/p CABG with a sequential graft to the diagonal branch, lateral and posterior lateral circumflex branches as well as PDA in October 2002 Assessment: Now s/p CABG x 1 LLANOS to LAD Plan: CAD Core Measures: Aspirin: Yes Beta blockers: Yes Statins: Lipitor 40mg started 11-01, LFTs normal-continue on dc. Elevated fasting blood sugar 06/19/2016 Essential hypertension 10/30/2018 Family history of colon cancer 01/31/2010 Family history of malignant neoplasm of gastrointestinal tract Family history of Parkinson's disease 12/11/2019 History of DVT (deep vein thrombosis) 06/19/2017 Patient was on coumadin at the time. spring History of rheumatic heart disease 10/09/2002 Living will on file 12/12/2021 DPA: Elizabet () Meniscus tear 12/27/2015 Right, minimal. Seen [facility] Microscopic hematuria 01/10/2021 Saw [facility] 02/2021 and felt further w/u not warranted. 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 Dunn Obesity, Class I, BMI 30-34.9 08/26/2018 Other proteinuria 01/10/2021 24 hr patient 01/2021 normal, Repeat yearly Other proteinuria 01/10/2021 24 hr patient 01/2021 normal, Parkinson disease (HCC) 12/01/2013 Postsurgical aortocoronary bypass status 2006 Rheum heart dis NEC/NOS Rheumatic fever Seasonal allergies 12/17/[address] Dash Sleep disorder 07/26/2015 Synovial cyst of right popliteal space 01/28/2017 US ER 01/2017: 3.5 x 1.1 CM Vitamin D deficiency 12/03/2013 Previous Surgical History PAST SURGICAL HISTORY Procedure Laterality Date 2D ECHO (EXEP) 01/08/2020 EF=53%, mild LVH, ABDOMINAL SURGERY HX CABG W/ARTERIAL GRAFT SINGLE ARTERIAL GRAFT 10/29/2018 used mammorary artery COLONOSCOPY FLX DX W/COLLJ SPEC WHEN PFRMD 2003 Colonoscopy COLONOSCOPY FLX DX W/COLLJ SPEC WHEN PFRMD 03/24/2010 Normal, recheck 5 yrs COLONOSCOPY FLX DX W/COLLJ SPEC WHEN PFRMD 01/28/2015 repeat in 5 yrs COLONOSCOPY FLX DX W/COLLJ SPEC WHEN PFRMD 07/03/2021 repeat in 5 years-polyp CORONARY ARTERY BYP W/VEIN & ARTERY GRAFT 4 VEIN 2002 CABG, quadruple grafts FECAL OCCULT BLOOD TEST 12/25/2016 negative HEART CATHETERIZATION [facility], HEART SURGERY HX HERNIA REPAIR HX LAPAROSCOPY SURG CHOLECYSTECTOMY Cholecystectomy, lap LEFT HEART CATH,PERCUTANEOUS 1998 Cardiac cath, L heart PAST SURGICAL HISTORY OF 10/29/2018 Aortic valve replacement with pig valve and anticoagulation stopped RADICAL RESECTION TONSIL W/O CLOSURE REMV CATARACT EXTRACAP,INSERT LENS 08/22/2020 and 09/14/2020 REMV CATARACT EXTRACAP,INSERT LENS Bilateral 2021 RPLCMT PROST AORTIC VALVE OPEN XCP HOMOGRF/STENT 10/13/2002 Aortic valve replacement RPR 1ST INGUN HRNA AGE 5 YRS/> REDUCIBLE Hernia repair, inguinal SKIN BIOPSY HX TEAEC W/PATCH GRF CAROTID VERTB SUBCLAV NECK INC 12/24/2008 Endarterectomy, carotid, Left TONSILLECTOMY HX Family History FAMILY HISTORY Problem Relation Age of Onset Ischemic Heart Disease Mother Colon Cancer Mother Heart Mother chf Thyroid Mother Diabetes Father other (liver failure/ETOH abuse) Father Ischemic Heart Disease Sister Ischemic Heart Disease Brother Ischemic Heart Disease Brother Hyperlipidemia Sister PTCA/PCI other (parkensons) Sister Cancer Brother prostate cancer other (Pakensons) Brother Hyperlipidemia Child Hyperlipidemia Child Patient Allergies ALLERGIES Allergen Reactions Iodine Other: See Comments ?decreased BP with iodinated contrast during a cardiac cath. Pt reports he was told by the game agent that they almost lost him due to his reaction and was allergic reaction. The patient reports taking 13 hour allergy premedications in the past with Iodinated contrast without experiencing any breakthrough reaction. Penicillin G Hives Current Medications Current Outpatient Medications on File Prior to Visit Medication Sig atorvastatin (LIPITOR) 80 mg tablet Take 1 tablet by mouth once daily. ezetimibe (ZETIA) 10 mg tablet Take 1 tablet by mouth once daily. metoprolol tartrate, short acting, (LOPRESSOR) 50 mg tablet Take 1 tablet by mouth two times a day. levothyroxine (SYNTHROID) 25 mcg tablet Take 1 tablet by mouth once daily. Take on empty stomach. For thyroid. carbidopa-levodopa (SINEMET 25-100) 25-100 mg per tablet TAKE 3 TABLETS 3 TIMES A DAY meloxicam (MOBIC) 15 mg tablet once daily. cyanocobalamin, vitamin B-12, 500 mcg ODT Take 2 tablets by mouth once daily. nitroglycerin sublingual (NITROQUICK) 0.4 mg SL tablet Dissolve 1 tablet under the tongue every 5 minutes as needed. furosemide (LASIX) 40 mg tablet Take 1 tablet by mouth once daily. Per cardio (Patient not taking: Reported on 12/14/2023) clindamycin (CLEOCIN) 150 mg capsule Take 4 tabs 30-60 min before dental procedures. aspirin, enteric coated (ECOTRIN LOW STRENGTH) 81 mg EC tablet Take 1 tablet by mouth once daily. acetaminophen (TYLENOL) 500 mg tablet Take 1,000 mg by mouth every 8 hours as needed for Pain. fluticasone (FLONASE) 50 mcg/actuation nasal spray Use 1 Blum in each nostril once daily. Rinse mouth after use. Cholecalciferol, Vitamin D3, 2,000 unit cap Take 2 tablets by mouth once daily. omega-3 fatty acids/vitamin e(FISH OIL 1,000 MG CAP) one tablet twice daily multivitamins w-minerals/lut(CENTRUM SILVER TAB) One tablet daily Current Facility-Administered Medications on File Prior to Visit Medication perflutren lipid microspheres 1.3 mL in NaCl (PF) 0.9% 10 mL injection (DEFINITY) sodium chloride 0.9 % (flush) 10 mL (BD POSIFLUSH) Social History Social History Tobacco Use Smoking status: Never Smokeless tobacco: Never Vaping Use Vaping Use: Never used Substance Use Topics Alcohol use: Yes Alcohol/week: 3.0 standard drinks of alcohol Types: 3 Cans of Beer (12oz) per week Comment: social only Drug use: No Review of Symptoms REVIEW OF SYSTEMS See HPI EXAM: BP 120/82 (BP Site: Right Arm, BP Position: Sitting, BP Cuff Size: Large Adult) Pulse (!) 58 Temp 36.4 C (97.5 F) (Tympanic) Resp 16 Wt 90.7 kg (200 lb) SpO2 95% BMI 31.32 kg/m General Appearance: Well appearing, alert, in no acute distress, well-hydrated, well nourished.. Neck: Supple, no adenopathy; thyroid symmetric, normal size, no bruits. Lungs: Lungs clear to auscultation. No wheezing, rhonchi, rales.. Heart: RRR without murmur, gallop, or rubs. No ectopy. Extremities: No deformities, edema. Health Maintenance List Advance Directive Discussion due on 08/05/2023 Behavioral Health Screening Never done Covid-19 Vaccine( season) due on 09/27/2023 LDL Cholesterol due on 12/26/2023 Influenza Vaccine(Season Ended) due on 04/05/2024 Diabetes Screening due on 12/25/2025 DTaP,Tdap,Td Vaccine(4 - Td or Tdap) due on 12/04/2027 RSV Vaccine Completed Shingrix Vaccine Completed Pneumococcal Vaccine: 65+ Completed Colorectal Cancer Screening Discontinued Data reviewed Results XR CHEST 2V FRONTAL/LAT (Acc#[id number] ) (Order [id number]) Patient Info Patient Name Sex Soniya Camacho ([id number]) Male 1940 12/14/2023 1:34 PM - Radiology, [place] [facility] Impression IMPRESSION: Questionable vague hazy opacity in the left midlung. Consider short-term follow-up. Doorshaker: GEOFFREY Transcribe Date/Time: Dec 14 2023 1:30P Dictated by : JAGUAR GONZALES MD This examination was interpreted and the report reviewed and electronically signed by: JAGUAR GONZALES MD on Dec 14 2023 1:32PM EST Results-Findings * * *Final Report* * * DATE OF EXAM: Dec 14 2023 11:49AM WOX [id number] - XR CHEST 2V FRONTAL/LAT / PROCEDURE REASON: Acute cough * * * * Physician Interpretation * * * * EXAMINATION: CHEST RADIOGRAPH (2 VIEW FRONTAL & LATERAL) CLINICAL HISTORY: Acute cough MQ: [id number] EXAM DATE/TIME: 12/14/2023 11:49 AM COMPARISON: Chest x-ray on 11/07/2018 RESULT: Lines, tubes, and devices: Status post aortic valve replacement. Lungs and pleura: Questionable vague hazy opacity in the left midlung. No lung mass. No pleural effusion. No pneumothorax. Cardiomediastinal silhouette: Stable cardiomediastinal silhouette. Bones and soft tissues: There are postoperative changes from median sternotomy. A/P ASSESSMENT/PLAN: 1. URI, acute - ICD9: 465.9, ICD10: J06.9 (primary diagnosis) - resolved and clinically doing well - XR CHEST 2V FRONTAL/LAT 2. X-ray of lung, abnormal - ICD9: 793.19, ICD10: R91.8 Will repeat a - XR CHEST 2V FRONTAL/LAT on or after 01/14/2024 F/u next routine or sooner if needed. Oniel Francis MD documented in this encounter [facility] 12-23-2023 History of Present illness Narrative Images from the original note were not included. [facility] SECTION OF [facility]IONAL CARDIOLOGY Cardiology ([facility]) [address] [facility] [id number] OUTPATIENT VISIT DATE 12/23/2023 PRIMARY CARE PHYSICIAN: Oniel Francis [address] [place] [address] HISTORY OF PRESENT ILLNESS: Mr. Cooley is a 83 year old gentleman with a history of coronary artery disease with remote coronary bypass grafting with an SVG graft to dominant left circumflex, left PDA with a Y graft to the diagonal branch (2002). He underwent repeat grafting aortic valve replacement in 2019 with a LLANOS graft LAD and Bernice-Rush aortic valve replacement. He has a history of carotid artery disease with prior left carotid endarterectomy, hypertension, dyslipidemia. He presents the office for routine follow-up. He is considering knee replacement surgery. Patient has been doing well from a functional standpoint. He has not had symptoms of chest pain or pressure. He does well from with ambulation and denies symptoms of shortness of breath or dyspnea on exertion. He has not had symptoms concerning for CHF including PND, orthopnea, or lower extremity edema. PAST MEDICAL HISTORY Diagnosis Date Acquired hypothyroidism 03/16/2020 Advance directive discussed with patient 12/12/2021 Allergic rhinitis 06/20/2018 Anticoagulated on Coumadin 01/28/[address] Francis: Aortic (per cardio target INR of 2-2.5.), was placed on coumadin per cardio due to US showing a build up on the bovine Valve, Started in 12/2015 Aortic valve disorder 10/09/2002 History: s/p AVR October 2002 Assessment: s/p 10/29/2018: Redo sternotomy AVR ( tissue valve size 27 ) was implanted in usual manner, LLANOS ( skeletonized ) to LAD BRIEF FINDINGS: Dense pericardial adhesions, degeneration of previous implanted aortic valve, Excellent quality and flow in LLANOS and good size LAD target Plan: ASA Aortic valve replaced 11/13/2005 Aortic, was placed on coumadin per cardio due to US showing a build up on the bovine Valve, Started in 12/2015 Aortic valve replaced 11/13/200510/2018 and anticoagulation was stopped. B12 deficiency 10/18/2014 Carotid stenosis, asymptomatic, bilateral 10/29/2008 S/P left repair, Sees [facility] for yearly US. Coronary atherosclerosis 08/24/2015 History: S/p CABG with a sequential graft to the diagonal branch, lateral and posterior lateral circumflex branches as well as PDA in October 2002 Assessment: Now s/p CABG x 1 LLANOS to LAD Plan: CAD Core Measures: Aspirin: Yes Beta blockers: Yes Statins: Lipitor 40mg started 3-30, LFTs normal-continue on dc. Elevated fasting blood sugar 06/19/2016 Essential hypertension 10/30/2018 Family history of colon cancer 01/31/2010 Family history of malignant neoplasm of gastrointestinal tract Family history of Parkinson's disease 12/11/2019 History of DVT (deep vein thrombosis) 06/19/2017 Patient was on coumadin at the time. spring History of rheumatic heart disease 10/09/2002 Living will on file 12/12/2021 DPA: Elizabet () Meniscus tear 12/27/2015 Right, minimal. Seen [facility] Microscopic hematuria 01/10/2021 Saw [facility] 02/2021 and felt further w/u not warranted. 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 Dunn Obesity, Class I, BMI 30-34.9 08/26/2018 Other proteinuria 01/10/2021 24 hr patient 01/2021 normal, Repeat yearly Other proteinuria 01/10/2021 24 hr patient 01/2021 normal, Parkinson disease (HCC) 12/01/2013 Postsurgical aortocoronary bypass status 2006 Rheum heart dis NEC/NOS Rheumatic fever Seasonal allergies 12/17/[address] Dash Sleep disorder 07/26/2015 Synovial cyst of right popliteal space 01/28/2017 US ER 01/2017: 3.5 x 1.1 CM Vitamin D deficiency 12/03/2013 PAST SURGICAL HISTORY Procedure Laterality Date 2D ECHO (EXEP) 01/08/2020 EF=53%, mild LVH, ABDOMINAL SURGERY HX CABG W/ARTERIAL GRAFT SINGLE ARTERIAL GRAFT 10/29/2018 used mammorary artery COLONOSCOPY FLX DX W/COLLJ SPEC WHEN PFRMD 2003 Colonoscopy COLONOSCOPY FLX DX W/COLLJ SPEC WHEN PFRMD 03/24/2010 Normal, recheck 5 yrs COLONOSCOPY FLX DX W/COLLJ SPEC WHEN PFRMD 01/28/2015 repeat in 5 yrs COLONOSCOPY FLX DX W/COLLJ SPEC WHEN PFRMD 07/03/2021 repeat in 5 years-polyp CORONARY ARTERY BYP W/VEIN & ARTERY GRAFT 4 VEIN 2002 CABG, quadruple grafts FECAL OCCULT BLOOD TEST 12/25/2016 negative HEART CATHETERIZATION [facility], HEART SURGERY HX HERNIA REPAIR HX LAPAROSCOPY SURG CHOLECYSTECTOMY Cholecystectomy, lap LEFT HEART CATH,PERCUTANEOUS 1997 Cardiac cath, L heart PAST SURGICAL HISTORY OF 10/29/2018 Aortic valve replacement with pig valve and anticoagulation stopped RADICAL RESECTION TONSIL W/O CLOSURE REMV CATARACT EXTRACAP,INSERT LENS 08/22/2020 and 09/14/2020 REMV CATARACT EXTRACAP,INSERT LENS Bilateral 2021 RPLCMT PROST AORTIC VALVE OPEN XCP HOMOGRF/STENT 10/13/2002 Aortic valve replacement RPR 1ST INGUN HRNA AGE 6 YRS/> REDUCIBLE Hernia repair, inguinal SKIN BIOPSY HX TEAEC W/PATCH GRF CAROTID VERTB SUBCLAV NECK INC 12/24/2008 Endarterectomy, carotid, Left TONSILLECTOMY HX SOCIAL HISTORY Social History Tobacco Use Smoking status: Never Smokeless tobacco: Never Vaping Use Vaping Use: Never used Substance Use Topics Alcohol use: Yes Alcohol/week: 3.0 standard drinks of alcohol Types: 3 Cans of Beer (12oz) per week Comment: social only Drug use: No FAMILY HISTORY Problem Relation Age of Onset Ischemic Heart Disease Mother Colon Cancer Mother Heart Mother chf Thyroid Mother Diabetes Father other (liver failure/ETOH abuse) Father Ischemic Heart Disease Sister Ischemic Heart Disease Brother Ischemic Heart Disease Brother Hyperlipidemia Sister PTCA/PCI other ([place]) Sister Cancer Brother prostate cancer other ([place]) Brother Hyperlipidemia Child Hyperlipidemia Child ALLERGIES: ALLERGIES Allergen Reactions Iodine Other: See Comments ?decreased BP with iodinated contrast during a cardiac cath. Pt reports he was told by the game agent that they almost lost him due to his reaction and was allergic reaction. The patient reports taking 13 hour allergy premedications in the past with Iodinated contrast without experiencing any breakthrough reaction. Penicillin G Hives MEDICATIONS: atorvastatin (LIPITOR) 80 mg tablet^Take 1 tablet by mouth once daily.^Disp: 90 tablet^Rfl: 1 ezetimibe (ZETIA) 10 mg tablet^Take 1 tablet by mouth once daily.^Disp: 90 tablet^Rfl: 3 metoprolol tartrate, short acting, (LOPRESSOR) 50 mg tablet^Take 1 tablet by mouth two times a day.^Disp: 180 tablet^Rfl: 1 levothyroxine (SYNTHROID) 25 mcg tablet^Take 1 tablet by mouth once daily. Take on empty stomach. For thyroid.^Disp: 90 tablet^Rfl: 1 carbidopa-levodopa (SINEMET 25-100) 25-100 mg per tablet^TAKE 3 TABLETS 3 TIMES A DAY^Disp: 810 tablet^Rfl: 2 meloxicam (MOBIC) 15 mg tablet^once daily.^Disp: ^Rfl: cyanocobalamin, vitamin B-12, 500 mcg ODT^Take 2 tablets by mouth once daily.^Disp: ^Rfl: nitroglycerin sublingual (NITROQUICK) 0.4 mg SL tablet^Dissolve 1 tablet under the tongue every 5 minutes as needed.^Disp: 5 tablet^Rfl: 1 clindamycin (CLEOCIN) 150 mg capsule^Take 4 tabs 30-60 min before dental procedures.^Disp: 4 capsule^Rfl: 3 aspirin, enteric coated (ECOTRIN LOW STRENGTH) 81 mg EC tablet^Take 1 tablet by mouth once daily.^Disp: ^Rfl: acetaminophen (TYLENOL) 500 mg tablet^Take 1,000 mg by mouth every 8 hours as needed for Pain.^Disp: ^Rfl: fluticasone (FLONASE) 50 mcg/actuation nasal spray^Use 1 Blum in each nostril once daily. Rinse mouth after use.^Disp: 1 Bottle^Rfl: 5 Cholecalciferol, Vitamin D3, 2,000 unit cap^Take 2 tablets by mouth once daily.^Disp: ^Rfl: 0 omega-3 fatty acids/vitamin e(FISH OIL 1,000 MG CAP)^one tablet twice daily^Disp: ^Rfl: 0 multivitamins w-minerals/lut(CENTRUM SILVER TAB)^One tablet daily^Disp: ^Rfl: 0 furosemide (LASIX) 40 mg tablet^Take 1 tablet by mouth once daily. Per cardio^Disp: ^Rfl: (Patient not taking: Reported on 12/14/2023) REVIEW OF SYSTEMS: Review of Systems Constitutional: Negative for chills, fever, malaise/fatigue and weight loss. HENT: Negative for hearing loss and sore throat. Eyes: Negative for blurred vision and double vision. Respiratory: Negative. Cardiovascular: Negative. Genitourinary: Negative for dysuria, frequency, hematuria and urgency. Musculoskeletal: Negative. Skin: Negative. Neurological: Negative for dizziness, seizures, loss of consciousness, weakness and headaches. Endo/Heme/Allergies: Negative for environmental allergies. Does not bruise/bleed easily. Psychiatric/Behavioral: Negative for depression. PHYSICAL EXAMINATION: BP 119/72 Pulse 57 Ht 5' 7 (1.70m) Wt 196 lb 9.6 oz (89.2kg) SpO2 96% BMI 30.78 kg/(m^2). General: Pleasant gentleman sitting appears comfortable no apparent distress. He is alert and oriented x3 HEENT: Carotid upstrokes are brisk bilaterally. Left carotid endarterectomy scar noted. No JVD. Pulmonary: Lungs are clear no rales, wheezes, rhonchi Cardiovascular: Normal S1, S2 with regular rate and rhythm. Hudspeth aortic valve sounds noted. CARDIOVASCULAR MEDICINE TESTING: ECG in the office 12/23/2023: Sinus rhythm with first-degree AV block. Frequent conducted PACs. No significant ST or T wave changes Cardiac Catheterization August 2018 Findings: Left main Normal LAD 50% mid stenosis LCx (dominant) severe diffuse proximal disease RCA 100% mid occlusion (non-dominant per records) SVG to Diagonal, AV groove LCx, LPDA patent IFR of the 50% stenosis in the mid LAD was 0.85 which was hemodynamically significant. Impressions: Severe quechan multivessel CAD Patent Bypass grafts Echocardiogram [facility] 01/08/2020 Normal LV size, mild concentric left ventricular hypertrophy. Estimated EF 53% Normal functioning bioprosthetic aortic valve. Mean aortic valve gradient 5 mmHg CTA Chest 10/17/2018: IMPRESSION: 1. Status post AVR and CABG. The bioprosthetic AVR has mild cusp calcifications. 2. The thoracic aorta is normal, aside from mild mixed atherosclerotic changes of the arch and descending segment. There is no acute aortic pathology. 3. Proximity of the cardiovascular structures to the sternum: The left brachiocephalic vein and right ventricular myocardium both lie immediately adjacent to the retrosternum. The remainder of the cardiac and vascular structures, including the bypass grafts, lie a safe distance (>5 mm) from the sternum. Echocardiogram 08/20/2023: - The left ventricle is normal in size. There is mild concentric left ventricular hypertrophy. Left ventricular systolic function is normal. EF = 59 5% (2D biplane) Left ventricular diastolic function was not evaluated. There is paradoxical septal motion consistent with the patient's previous open heart surgery - The right ventricle is normal in size. Right ventricular systolic function is normal. - The visualized aorta is borderline dilated with a maximal dimension of 4.0 cm. - Bernice-Rush prosthetic aortic valve (size #27). There is no aortic valve regurgitation. The peak gradient is 10 mmHg, the mean gradient is 6 mmHg and the dimensionless valve index is 0.37. - Exam was compared with the prior echocardiographic exam performed on 10/29/2018 (OR). Carotid Ultrasound 08/20/2023 IMPRESSION Irregular cardiac rhythm noted. Compared to prior study of 05/08/2022, No significant change. RIGHT SIDE Common carotid artery: Plaque visualized without evidence of hemodynamically significant stenosis. Internal carotid artery: 20-39% stenosis. Vertebral artery: Patent and antegrade flow noted. Innominate artery: Turbulent flow noted. LEFT SIDE Common carotid artery: Plaque visualized without evidence of hemodynamically significant stenosis. Endarterectomy patch at distal measuring 1.2 cm. Internal carotid artery: 20-39% stenosis. Endarterectomy patch from origin to proximal . Vertebral artery: Patent and antegrade flow noted. Carotid Ultrasound 05/08/2022: IMPRESSION Compared to prior study of 03/23/2015, no change in degree of stenosis. RIGHT SIDE Common carotid artery: Plaque visualized without evidence of hemodynamically significant stenosis. Internal carotid artery: 20-39% stenosis. Vertebral artery: Patent and antegrade flow noted. LEFT SIDE Common carotid artery: Patent. Endarterectomy patch at distal measuring 1.06 cm. Internal carotid artery: 20-39% stenosis. Endarterectomy patch from origin to proximal . Vertebral artery: Patent and antegrade flow noted. CABG/AVR Date of Surgery: 10/29/2018 Primary Surgeon: Michelle Ramirez MD Operations: Reoperative median sternotomy, coronary artery bypass grafting with in situ left internal thoracic artery to the LAD and replacement of aortic valve with #27 CE valve IMPRESSION: Mr. Cooley is a 83 year old gentleman with a history of coronary artery disease and remote coronary bypass grafting in 2002 with an SVG Y graft diagonal and left PDA. He had undergone repeat coronary bypass grafting with aortic valve replacement 2018. Preoperative catheterization demonstrated patent SVG graft. He had a LLANOS to the LAD and a Bernice-Rush valve placed October 2018. He has a history of carotid artery disease with a left carotid endarterectomy, peripheral arterial disease, hypertension, and dyslipidemia. He presents for routine follow-up PLAN AND RECOMMENDATIONS: 1. 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 - ICD9: 414.01, ICD10: I25.10 (primary diagnosis) Patient doing well without symptoms concerning for angina. Continue current medical therapy and risk factor modification 2. Aortic valve replaced - ICD9: V43.3, ICD10: Z95.2 Well-functioning bioprosthetic aortic valve echocardiogram August 2023. Patient needs antibiotic prophylaxis for procedures 3. Essential hypertension - ICD9: 401.9, ICD10: I10 Well-controlled on current regimen 4. Mixed hyperlipidemia - ICD9: 272.2, ICD10: E78.2 Patient doing well on atorvastatin 80 mg daily. 5. Carotid stenosis, asymptomatic, bilateral - ICD9: 433.10, 433.30, ICD10: I65.23 Follow-up carotid ultrasound August 2023 demonstrating mild bilateral disease 6. Screening for ischemic heart disease - ICD9: V81.0, ICD10: Z13.6 - ECG COMPLETE 7. Pre-operative cardiovascular examination - ICD9: V72.81, ICD10: Z01.810 Patient is at low acceptable risk for moderate risk procedure. He will need no further testing prior to surgery. Marj Mackey MD documented in this encounter [facility] 12-23-2023 Note HNO ID: [id number] Author: MARJ MACKEY MD Service: ? Author Type: Physician Type: Progress Notes Filed: 12/23/2023 16:30 Note Text: [facility] CARDIOLOGY Cardiology ([facility]) [address] [facility] [id number] OUTPATIENT VISIT DATE 12/23/2023 PRIMARY CARE PHYSICIAN: Oniel Francis [address] [place] [address] HISTORY OF PRESENT ILLNESS: Mr. Cooley is a 83 year old gentleman with a history of coronary artery disease with remote coronary bypass grafting with an SVG graft to dominant left circumflex, left PDA with a Y graft to the diagonal branch (2002). He underwent repeat grafting aortic valve replacement in 2019 with a LLANOS graft LAD and Bernice-Rush aortic valve replacement. He has a history of carotid artery disease with prior left carotid endarterectomy, hypertension, dyslipidemia. He presents the office for routine follow-up. He is considering knee replacement surgery. Patient has been doing well from a functional standpoint. He has not had symptoms of chest pain or pressure. He does well from with ambulation and denies symptoms of shortness of breath or dyspnea on exertion. He has not had symptoms concerning for CHF including PND, orthopnea, or lower extremity edema. PAST MEDICAL HISTORY Diagnosis Date Acquired hypothyroidism 03/16/2020 Advance directive discussed with patient 12/12/2021 Allergic rhinitis 06/20/2018 Anticoagulated on Coumadin 01/28/[address] Francis: Aortic (per cardio target INR of 2-2.5.), was placed on coumadin per cardio due to US showing a build up on the bovine Valve, Started in 12/2015 Aortic valve disorder 10/09/2002 History: s/p AVR October 2002 Assessment: s/p 10/29/2018: Redo sternotomy AVR ( tissue valve size 27 ) was implanted in usual manner, LLANOS ( skeletonized ) to LAD BRIEF FINDINGS: Dense pericardial adhesions, degeneration of previous implanted aortic valve, Excellent quality and flow in LLANOS and good size LAD target Plan: ASA Aortic valve replaced 11/13/2005 Aortic, was placed on coumadin per cardio due to US showing a build up on the bovine Valve, Started in 12/2015 Aortic valve replaced 11/13/200510/2018 and anticoagulation was stopped. B12 deficiency 10/18/2014 Carotid stenosis, asymptomatic, bilateral 10/29/2008 S/P left repair, Sees Edu for yearly US. Coronary atherosclerosis 08/24/2015 History: S/p CABG with a sequential graft to the diagonal branch, lateral and posterior lateral circumflex branches as well as PDA in October 2002 Assessment: Now s/p CABG x 1 LLANOS to LAD Plan: CAD Core Measures: Aspirin: Yes Beta blockers: Yes Statins: Lipitor 40mg started 3-30, LFTs normal-continue on dc. Elevated fasting blood sugar 06/19/2016 Essential hypertension 10/30/2018 Family history of colon cancer 01/31/2010 Family history of malignant neoplasm of gastrointestinal tract Family history of Parkinson's disease 12/11/2019 History of DVT (deep vein thrombosis) 06/19/2017 Patient was on coumadin at the time. spring History of rheumatic heart disease 10/09/2002 Living will on file 12/12/2021 DPA: Elizabet () Meniscus tear 12/27/2015 Right, minimal. Seen [facility] Microscopic hematuria 01/10/2021 Saw [facility] 02/2021 and felt further w/u not warranted. 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 Sabilia Obesity, Class I, BMI 30-34.9 08/26/2018 Other proteinuria 01/10/2021 24 hr patient 01/2021 normal, Repeat yearly Other proteinuria 01/10/2021 24 hr patient 01/2021 normal, Parkinson disease (HCC) 12/01/2013 Postsurgical aortocoronary bypass status 2006 Rheum heart dis NEC/NOS Rheumatic fever Seasonal allergies 12/17/[address] Dash Sleep disorder 07/26/2015 Synovial cyst of right popliteal space 01/28/2017 US ER 01/2017: 3.5 x 1.1 CM Vitamin D deficiency 12/03/2013 PAST SURGICAL HISTORY Procedure Laterality Date 2D ECHO (EXEP) 01/08/2020 EF=53%, mild LVH, ABDOMINAL SURGERY HX CABG W/ARTERIAL GRAFT SINGLE ARTERIAL GRAFT 10/29/2018 used mammorary artery COLONOSCOPY FLX DX W/COLLJ SPEC WHEN PFRMD 2003 Colonoscopy COLONOSCOPY FLX DX W/COLLJ SPEC WHEN PFRMD 03/24/2010 Normal, recheck 5 yrs COLONOSCOPY FLX DX W/COLLJ SPEC WHEN PFRMD 01/28/2015 repeat in 5 yrs COLONOSCOPY FLX DX W/COLLJ SPEC WHEN PFRMD 07/03/2021 repeat in 5 years-polyp CORONARY ARTERY BYP W/VEIN AND ARTERY GRAFT 4 VEIN 2002 CABG, quadruple grafts FECAL OCCULT BLOOD TEST 12/25/2016 negative HEART CATHETERIZATION [facility], HEART SURGERY HX HERNIA REPAIR HX LAPAROSCOPY SURG CHOLECYSTECTOMY Cholecystectomy, lap LEFT HEART CATH,PERCUTANEOUS 1997 Cardiac cath, (more content not included)... [facility] 12-17-2023 Telephone encounter Note Patient's scheduled for appointment on 12/31/2023. Michelle Herring RN [facility] 12-17-2023 Miscellaneous Notes Patient's scheduled for appointment on 12/31/2023. Michelle Herring RN Left message for patient to contact office. Prudencio Barlow MA Needs f/u in 3 weeks within [facility] for f/u pneumonia and repeat chest x-ray to see if vague hazy opacity in left mid lung has resolved. documented in this encounter [facility] 12-17-2023 Telephone encounter Note Left message for patient to contact office. Prudencio Barlow MA [facility] 12-16-2023 Telephone encounter Note Needs f/u in 3 weeks within [facility] for f/u pneumonia and repeat chest x-ray to see if vague hazy opacity in left mid lung has resolved. [facility] 12-14-2023 History of Present illness Narrative Radiology Service Progress Note PATIENT NAME: Soniya Cooley DATE OF SERVICE: December 14, 2023 TIME: 11:44 AM PATIENT IDENTITY VERIFICATION COMPLETED USING TWO (2) IDENTIFIERS: Name and Date of confirmed by patient verbally. FALL SCREENING: Has the patient had 2 falls in the last year or 1 fall with injury or currently using an Ambulatory Assistive Device (Walker, Cane, Wheelchair, Crutches, etc.)? No PATIENT GENDER DATA: Male PATIENT RELEVANT IMPLANT DATA REVIEWED: Not Applicable PATIENT PRESENTS WITH AN IMPLANTABLE OR ATTACHED STARCHMAKER: No RADIOLOGY DEPARTMENT: General X-ray: Exam(s) Completed: Chest X-Ray PERIPHERAL IV DATA: Not applicable SIGNED BY: RT Marjorie(R) December 14, 2023 11:44 AM documented in this encounter [facility] 12-14-2023 Note HNO ID: [id number] Author: GEORGE LYMAN RT(Elvira) Service: ? Author Type: Technologist Type: Progress Notes Filed: 12/14/2023 11:49 Note Text: Radiology Service Progress Note PATIENT NAME: Soniya Cooley DATE OF SERVICE: December 14, 2023 TIME: 11:44 AM PATIENT IDENTITY VERIFICATION COMPLETED USING TWO (2) IDENTIFIERS: Name and Date of confirmed by patient verbally. FALL SCREENING: Has the patient had 2 falls in the last year or 1 fall with injury or currently using an Ambulatory Assistive Device (Walker, Cane, Wheelchair, Crutches, etc.)? No PATIENT GENDER DATA: Male PATIENT RELEVANT IMPLANT DATA REVIEWED: Not Applicable PATIENT PRESENTS WITH AN IMPLANTABLE OR ATTACHED STARCHMAKER: No RADIOLOGY DEPARTMENT: General X-ray: Exam(s) Completed: Chest X-Ray PERIPHERAL IV DATA: Not applicable SIGNED BY: RT Marjorie(Elvira) December 14, 2023 11:44 AM [facility] 12-14-2023 Note HNO ID: [id number] Author: SHAMAR BARLOW APRN.[employer] Service: ? Author Type: Nurse Practitioner Type: Progress Notes Filed: 12/14/2023 13:47 Note Text: CC: Patient presents with: Cough: Congestion and runny nose x6 days HPI: Soniya Cooley is a 83 year old male who presents to the office with complaint of head congestion, cough, nonproductive, and rhinorrhea for 6 days. Symptoms are staying the same. Associated symptoms includes wheezing. Denies fever, nausea, vomiting , and diarrhea. Treatments tried include nothing so far. with no relief of symptoms. Sick contacts: unknown. History of asthma, frequent episodes of bronchitis, chronic bronchitis, bronchiectasis or COPD: No Smoker: No Seasonal/environmental allergies: No The ROS is otherwise negative. The patient's pmh, medications, allergies, and past visits are reviewed. PHYSICAL EXAM: BP 120/62 Pulse 62 Temp (!) 35.7 ?C (96.2 ?F) Resp 16 Wt 91.1 kg (200 lb 13.4 oz) SpO2 98% BMI 31.46 kg/m? General appearance: alert, cooperative, pleasant, in no acute distress Head: Normocephalic Eyes: EOM's intact, conjunctiva pink and moist, no icterus, sclera white, non-injected Ears: Right ear: External ear/canal- Normal, TM - clear with good landmarks. Left ear: External ear/canal- Normal, TM - clear with good landmarks Oropharynx:moist without lesions, No erythema, exudates or tonsillar hypertrophy. Heart: Negative. RRR without obvious murmur, gallop, or rubs. No ectopy. Lungs: clear to auscultation, without rales or wheeze, good air exchange PAST MEDICAL HISTORY Diagnosis Date Acquired hypothyroidism 03/16/2020 Advance directive discussed with patient 12/12/2021 Allergic rhinitis 06/20/2018 Anticoagulated on Coumadin 01/28/[address] Francis: Aortic (per cardio target INR of 2-2.5.), was placed on coumadin per cardio due to US showing a build up on the bovine Valve, Started in 12/2015 Aortic valve disorder 10/09/2002 History: s/p AVR October 2002 Assessment: s/p 10/29/2018: Redo sternotomy AVR ( tissue valve size 27 ) was implanted in usual manner, LLANOS ( skeletonized ) to LAD BRIEF FINDINGS: Dense pericardial adhesions, degeneration of previous implanted aortic valve, Excellent quality and flow in LLANOS and good size LAD target Plan: ASA Aortic valve replaced 11/13/2005 Aortic, was placed on coumadin per cardio due to US showing a build up on the bovine Valve, Started in 12/2015 Aortic valve replaced 11/13/200510/2018 and anticoagulation was stopped. B12 deficiency 10/18/2014 Carotid stenosis, asymptomatic, bilateral 10/29/2008 S/P left repair, Sees [facility] for yearly US. Coronary atherosclerosis 08/24/2015 History: S/p CABG with a sequential graft to the diagonal branch, lateral and posterior lateral circumflex branches as well as PDA in October 2002 Assessment: Now s/p CABG x 1 LLANOS to LAD Plan: CAD Core Measures: Aspirin: Yes Beta blockers: Yes Statins: Lipitor 40mg started 3-30, LFTs normal-continue on dc. Elevated fasting blood sugar 06/19/2016 Essential hypertension 10/30/2018 Family history of colon cancer 01/31/2010 Family history of malignant neoplasm of gastrointestinal tract Family history of Parkinson's disease 12/11/2019 History of DVT (deep vein thrombosis) 06/19/2017 Patient was on coumadin at the time. spring History of rheumatic heart disease 10/09/2002 Living will on file 12/12/2021 DPA: Elizabet () Meniscus tear 12/27/2015 Right, minimal. Seen [facility] Microscopic hematuria 01/10/2021 Saw [facility] 02/2021 and felt further w/u not warranted. 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 Dunn Obesity, Class I, BMI 30-34.9 08/26/2018 Other proteinuria 01/10/2021 24 hr patient 01/2021 normal, Repeat yearly Other proteinuria 01/10/2021 24 hr patient 01/2021 normal, Parkinson disease (HCC) 12/01/2013 Postsurgical aortocoronary bypass status 2006 Rheum heart dis NEC/NOS Rheumatic fever Seasonal allergies 12/17/[address] Dash Sleep disorder 07/26/2015 Synovial cyst of right popliteal space 01/28/2017 US ER 01/2017: 3.5 x 1.1 CM Vitamin D deficiency 12/03/2013 PAST SURGICAL HISTORY Procedure Laterality Date 2D ECHO (EXEP) 01/08/2020 EF=53%, mild LVH, ABDOMINAL SURGERY HX CABG W/ARTERIAL GRAFT SINGLE ARTERIAL GRAFT 10/29/2018 used mammorary artery COLONOSCOPY FLX DX W/COLLJ SPEC WHEN PFRMD 2003 Colonoscopy COLONOSCOPY FLX DX W/COLLJ SPEC WHEN PFRMD 03/24/2010 Normal, recheck 5 yrs COLONOSCOPY FLX DX W/COLLJ SPEC WHEN PFRMD 01/28/2015 repeat in 5 yrs COLONOSCOPY FLX DX W/COLLJ SPEC WHEN PFRMD 07/03/2021 repeat in 5 years-polyp CORONARY ARTERY BYP W/VEIN AND ARTERY GRAFT 4 VEIN 2002 CABG, quadruple grafts FECAL OCCULT BLOOD TEST (more content not included)... [facility] 12-14-2023 History of Present illness Narrative CC: Patient presents with: Cough: Congestion and runny nose x6 days HPI: Soniya Cooley is a 83 year old male who presents to the office with complaint of head congestion, cough, nonproductive, and rhinorrhea for 6 days. Symptoms are staying the same. Associated symptoms includes wheezing. Denies fever, nausea, vomiting , and diarrhea. Treatments tried include nothing so far. with no relief of symptoms. Sick contacts: unknown. History of asthma, frequent episodes of bronchitis, chronic bronchitis, bronchiectasis or COPD: No Smoker: No Seasonal/environmental allergies: No The ROS is otherwise negative. The patient's pmh, medications, allergies, and past visits are reviewed. PHYSICAL EXAM: BP 120/62 Pulse 62 Temp (!) 35.7 C (96.2 F) Resp 16 Wt 91.1 kg (200 lb 13.4 oz) SpO2 98% BMI 31.46 kg/m General appearance: alert, cooperative, pleasant, in no acute distress Head: Normocephalic Eyes: EOM's intact, conjunctiva pink and moist, no icterus, sclera white, non-injected Ears: Right ear: External ear/canal- Normal, TM - clear with good landmarks. Left ear: External ear/canal- Normal, TM - clear with good landmarks Oropharynx:moist without lesions, No erythema, exudates or tonsillar hypertrophy. Heart: Negative. RRR without obvious murmur, gallop, or rubs. No ectopy. Lungs: clear to auscultation, without rales or wheeze, good air exchange PAST MEDICAL HISTORY Diagnosis Date Acquired hypothyroidism 03/16/2020 Advance directive discussed with patient 12/12/2021 Allergic rhinitis 06/20/2018 Anticoagulated on Coumadin 01/28/[address] Francis: Aortic (per cardio target INR of 2-2.5.), was placed on coumadin per cardio due to US showing a build up on the bovine Valve, Started in 12/2015 Aortic valve disorder 10/09/2002 History: s/p AVR October 2002 Assessment: s/p 10/29/2018: Redo sternotomy AVR ( tissue valve size 27 ) was implanted in usual manner, LLANOS ( skeletonized ) to LAD BRIEF FINDINGS: Dense pericardial adhesions, degeneration of previous implanted aortic valve, Excellent quality and flow in LLANOS and good size LAD target Plan: ASA Aortic valve replaced 11/13/2005 Aortic, was placed on coumadin per cardio due to US showing a build up on the bovine Valve, Started in 12/2015 Aortic valve replaced 11/13/200510/2018 and anticoagulation was stopped. B12 deficiency 10/18/2014 Carotid stenosis, asymptomatic, bilateral 10/29/2008 S/P left repair, Sees [facility] for yearly US. Coronary atherosclerosis 08/24/2015 History: S/p CABG with a sequential graft to the diagonal branch, lateral and posterior lateral circumflex branches as well as PDA in October 2002 Assessment: Now s/p CABG x 1 LLANOS to LAD Plan: CAD Core Measures: Aspirin: Yes Beta blockers: Yes Statins: Lipitor 40mg started 11-01, LFTs normal-continue on dc. Elevated fasting blood sugar 06/19/2016 Essential hypertension 10/30/2018 Family history of colon cancer 01/31/2010 Family history of malignant neoplasm of gastrointestinal tract Family history of Parkinson's disease 12/11/2019 History of DVT (deep vein thrombosis) 06/19/2017 Patient was on coumadin at the time. spring History of rheumatic heart disease 10/09/2002 Living will on file 12/12/2021 DPA: Elizabet () Meniscus tear 12/27/2015 Right, minimal. Seen Lamont hebert Microscopic hematuria 01/10/2021 Saw Luciano 02/2021 and felt further w/u not warranted. 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 Dunn Obesity, Class I, BMI 30-34.9 08/26/2018 Other proteinuria 01/10/2021 24 hr patient 01/2021 normal, Repeat yearly Other proteinuria 01/10/2021 24 hr patient 01/2021 normal, Parkinson disease (HCC) 12/01/2013 Postsurgical aortocoronary bypass status 2006 Rheum heart dis NEC/NOS Rheumatic fever Seasonal allergies 12/17/[address] Dash Sleep disorder 07/26/2015 Synovial cyst of right popliteal space 01/28/2017 US ER 01/2017: 3.5 x 1.1 CM Vitamin D deficiency 12/03/2013 PAST SURGICAL HISTORY Procedure Laterality Date 2D ECHO (EXEP) 01/08/2020 EF=53%, mild LVH, ABDOMINAL SURGERY HX CABG W/ARTERIAL GRAFT SINGLE ARTERIAL GRAFT 10/29/2018 used mammorary artery COLONOSCOPY FLX DX W/COLLJ SPEC WHEN PFRMD 2003 Colonoscopy COLONOSCOPY FLX DX W/COLLJ SPEC WHEN PFRMD 03/24/2010 Normal, recheck 5 yrs COLONOSCOPY FLX DX W/COLLJ SPEC WHEN PFRMD 01/28/2015 repeat in 5 yrs COLONOSCOPY FLX DX W/COLLJ SPEC WHEN PFRMD 07/03/2021 repeat in 5 years-polyp CORONARY ARTERY BYP W/VEIN & ARTERY GRAFT 4 VEIN 2002 CABG, quadruple grafts FECAL OCCULT BLOOD TEST 12/25/2016 negative HEART CATHETERIZATION [facility], HEART SURGERY HX HERNIA REPAIR HX LAPAROSCOPY SURG CHOLECYSTECTOMY Cholecystectomy, lap LEFT HEART CATH,PERCUTANEOUS 1998 Cardiac cath, L heart PAST SURGICAL HISTORY OF 10/29/2018 Aortic valve replacement with pig valve and anticoagulation stopped RADICAL RESECTION TONSIL W/O CLOSURE REMV CATARACT EXTRACAP,INSERT LENS 08/22/2020 and 09/14/2020 REMV CATARACT EXTRACAP,INSERT LENS Bilateral 2021 RPLCMT PROST AORTIC VALVE OPEN XCP HOMOGRF/STENT 10/13/2002 Aortic valve replacement RPR 1ST INGUN HRNA AGE 5 YRS/> REDUCIBLE Hernia repair, inguinal SKIN BIOPSY HX TEAEC W/PATCH GRF CAROTID VERTB SUBCLAV NECK INC 12/24/2008 Endarterectomy, carotid, Left TONSILLECTOMY HX ALLERGIES Iodine and Penicillin G MEDICATIONS atorvastatin (LIPITOR) 80 mg tablet^Take 1 tablet by mouth once daily.^Disp: 90 tablet^Rfl: 1 ezetimibe (ZETIA) 10 mg tablet^Take 1 tablet by mouth once daily.^Disp: 90 tablet^Rfl: 3 metoprolol tartrate, short acting, (LOPRESSOR) 50 mg tablet^Take 1 tablet by mouth two times a day.^Disp: 180 tablet^Rfl: 1 levothyroxine (SYNTHROID) 25 mcg tablet^Take 1 tablet by mouth once daily. Take on empty stomach. For thyroid.^Disp: 90 tablet^Rfl: 1 carbidopa-levodopa (SINEMET 25-100) 25-100 mg per tablet^TAKE 3 TABLETS 3 TIMES A DAY^Disp: 810 tablet^Rfl: 2 meloxicam (MOBIC) 15 mg tablet^once daily.^Disp: ^Rfl: cyanocobalamin, vitamin B-12, 500 mcg ODT^Take 2 tablets by mouth once daily.^Disp: ^Rfl: nitroglycerin sublingual (NITROQUICK) 0.4 mg SL tablet^Dissolve 1 tablet under the tongue every 5 minutes as needed.^Disp: 5 tablet^Rfl: 1 clindamycin (CLEOCIN) 150 mg capsule^Take 4 tabs 30-60 min before dental procedures.^Disp: 4 capsule^Rfl: 3 aspirin, enteric coated (ECOTRIN LOW STRENGTH) 81 mg EC tablet^Take 1 tablet by mouth once daily.^Disp: ^Rfl: acetaminophen (TYLENOL) 500 mg tablet^Take 1,000 mg by mouth every 8 hours as needed for Pain.^Disp: ^Rfl: fluticasone (FLONASE) 50 mcg/actuation nasal spray^Use 1 Blum in each nostril once daily. Rinse mouth after use.^Disp: 1 Bottle^Rfl: 5 Cholecalciferol, Vitamin D3, 2,000 unit cap^Take 2 tablets by mouth once daily.^Disp: ^Rfl: 0 omega-3 fatty acids/vitamin e(FISH OIL 1,000 MG CAP)^one tablet twice daily^Disp: ^Rfl: 0 multivitamins w-minerals/lut(CENTRUM SILVER TAB)^One tablet daily^Disp: ^Rfl: 0 furosemide (LASIX) 40 mg tablet^Take 1 tablet by mouth once daily. Per cardio^Disp: ^Rfl: (Patient not taking: Reported on 12/14/2023) FAMILY HISTORY Problem Relation Age of Onset Ischemic Heart Disease Mother Colon Cancer Mother Heart Mother chf Thyroid Mother Diabetes Father other (liver failure/ETOH abuse) Father Ischemic Heart Disease Sister Ischemic Heart Disease Brother Ischemic Heart Disease Brother Hyperlipidemia Sister PTCA/PCI other (erin) Sister Cancer Brother prostate cancer other (Malini) Brother Hyperlipidemia Child Hyperlipidemia Child Social History Tobacco Use Smoking status: Never Smokeless tobacco: Never Vaping Use Vaping Use: Never used Substance Use Topics Alcohol use: Yes Alcohol/week: 3.0 standard drinks of alcohol Types: 3 Cans of Beer (12oz) per week Comment: social only Drug use: No ASSESSMENT/PLAN: 1. Acute cough - ICD9: 786.2, ICD10: R05.1 - XR CHEST 2V FRONTAL/LAT * * * * Physician Interpretation * * * * EXAMINATION: CHEST RADIOGRAPH (2 VIEW FRONTAL & LATERAL) CLINICAL HISTORY: Acute cough MQ: [id number] EXAM DATE/TIME: 12/14/2023 11:49 AM COMPARISON: Chest x-ray on 11/07/2018 RESULT: Lines, tubes, and devices: Status post aortic valve replacement. Lungs and pleura: Questionable vague hazy opacity in the left midlung. No lung mass. No pleural effusion. No pneumothorax. Cardiomediastinal silhouette: Stable cardiomediastinal silhouette. Bones and soft tissues: There are postoperative changes from median sternotomy. IMPRESSION IMPRESSION: Questionable vague hazy opacity in the left midlung. Consider short-term follow-up. Doorshaker: GEOFFREY Transcribe Date/Time: Dec 14 2023 1:30P Dictated by : JAGUAR GONZALES MD - DOXYCYCLINE HYCLATE 100 MG TABLET Instructed that they needed to follow-up in 1 to 2 weeks with primary care for possible repeat x-ray to see if the hazy opacity went away. Will forward chart to PCP. Prescription instructions reviewed with patient as applicable. Potential red flag symptoms discussed with the patient. Reviewed appropriate action plan to take if red flag symptoms occur. Patient agreeable to treatment plan. Shamar Barlow APRN.[employer] documented in this encounter [facility] 11-12-2023 History of Present illness Narrative POPULATION HEALTH NAVIGATION OUTREACH Action/FYI Contacted patient to schedule [place] Annual Wellness Visit, care gaps and HCCs due. 1st attempt: Left message with my direct number 2nd attempt: My Chart message sent Reason for Outreach Care Gap/HCC or Scheduling Wellness Visits Care Gaps due: Medicare Annual Wellness Visit Patient Contacted: Unable or unnecessary to reach patient: Left message MyChart message sent HCC related Navigation Signature: Lelia Soni MA November 12, 2023 3:16 PM documented in this encounter [facility] 09-11-2023 Instructions Abby Pate MD - 09/11/2023 2:08 PM EST Continue the same dose of medication today, consider compressing the times to every 5 hours. Try to stay physically active, consider stationary bike if it doesn't trigger too much pain. Ask your doctor about medications for urination overnight. Continue the miralax for constipation. documented in this encounter [facility] 09-11-2023 History of Present illness Narrative Neurology Follow Up Note Subjective Soniya Cooley is a 82 year old male who presents for follow up. CC: PD Summary of prior care: Right-handed male with a history of CAD / s/p CABG and AVR, left carotid stenosis s/p CEA, and tremor who presents for evaluation of tremor. His examination demonstrates mild parkinsonian features. His presentation is most consistent with Parkinson's Disease. He has motor features of tremor, mild left sided bradykinesia, and mild gait changes. He has mild hypomimia and hypophonia. 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 First visit 01/2020 taper off primidone, start levodopa, encourage exercise, increase hydration but caution with cardiac disease, start miralax. 05/2020 increase levodopa to 150 mg TID, increase hydration, add miralax. 10/2020 increase to 200 mg TID. 04/2021 increase levodopa to 300 mg TID, add melatonin. 08/2021 taper off levodopa without benefit. 12/2021 had increased to 300 TID, no change. 06/2022 try 250 TID with mild dyskinesia. HPI Current Issues 1. PD - Tremor slightly worse - Little bit harder to eat - Taking levodopa every 6 hours, doesn't notice wearing off - notices mouth movements occasionally - Not exercising much right now with knee pain 2. Constipation - Still doing well with miralax - No LH 3. Sleep - Bedtime is 10-1030 - Biggest issue is staying asleep, gets up to urinate every 1-2 hours. Has not seen urology. Often hard to go back to sleep after waking up sometimes. - Goes to sleep fairly quickly when he first goes to bed. 6-7 12 6 Cd/ld 25/100 3 3 3 Current Outpatient Medications Medication Sig Dispense Refill levothyroxine (SYNTHROID) 25 mcg tablet Take 1 tablet by mouth once daily. Take on empty stomach. For thyroid. 90 tablet 1 atorvastatin (LIPITOR) 80 mg tablet Take 1 tablet by mouth once daily. 90 tablet 1 carbidopa-levodopa (SINEMET 25-100) 25-100 mg per tablet TAKE 3 TABLETS 3 TIMES A DAY 810 tablet 2 metoprolol tartrate, short acting, (LOPRESSOR) 50 mg tablet Take 1 tablet by mouth twice daily. 180 tablet 1 mometasone (ELOCON) 0.1 % cream Apply to areas twice a day. On for 4 days and off for 3 days. Repeat as needed. 15 g 1 meloxicam (MOBIC) 15 mg tablet once daily. ezetimibe (ZETIA) 10 mg tablet Take 1 tablet by mouth once daily. 90 tablet 3 cyanocobalamin, vitamin B-12, 500 mcg ODT Take 2 tablets by mouth once daily. nitroglycerin sublingual (NITROQUICK) 0.4 mg SL tablet Dissolve 1 tablet under the tongue every 5 minutes as needed. 5 tablet 1 furosemide (LASIX) 40 mg tablet Take 1 tablet by mouth once daily. Per cardio clindamycin (CLEOCIN) 150 mg capsule Take 4 tabs 30-60 min before dental procedures. 4 capsule 3 aspirin, enteric coated (ECOTRIN LOW STRENGTH) 81 mg EC tablet Take 1 tablet by mouth once daily. acetaminophen (TYLENOL) 500 mg tablet Take 1,000 mg by mouth every 8 hours as needed for Pain. fluticasone (FLONASE) 50 mcg/actuation nasal spray Use 1 Blum in each nostril once daily. Rinse mouth after use. 1 Bottle 5 Cholecalciferol, Vitamin D3, 2,000 unit cap Take 2 tablets by mouth once daily. 0 omega-3 fatty acids/vitamin e(FISH OIL 1,000 MG CAP) one tablet twice daily 0 multivitamins w-minerals/lut(CENTRUM SILVER TAB) One tablet daily 0 Current Facility-Administered Medications Medication Dose Route Frequency Provider Last Rate Last Admin perflutren lipid microspheres 1.3 mL in NaCl (PF) 0.9% 10 mL injection (DEFINITY) INTRAVENOUS DIRECTED PRN Marj Mackey MD sodium chloride 0.9 % (flush) 10 mL (BD POSIFLUSH) 10 mL INTRAVENOUS DIRECTED PRN Marj Mackey MD REVIEW OF SYSTEMS His ROS was positive for that mentioned in the HPI. Otherwise a 10-point ROS was completed and was negative. Objective OBJECTIVE 09/11/23 1331 BP: 139/78 Pulse: 66 SpO2: 93% Weight: 92 kg (202 lb 13.2 oz) Height: 170.2 cm (5' 7) General: General Appearance: Well appearing, alert, in no acute distress, well-hydrated, well nourished. Head: Normocephalic Neurologic Exam: Mental Status: He is alert. Attention is intact. Language shows normal comprehension and fluency. Affect is appropriate. Cranial Nerves: Extraocular movements show full and smooth pursuits. No nystagmus. Facial activation is symmetric. Hearing is intact to conversation. There is mild hypomimia. There is mild hypophonia. There is no dysarthria. Tongue is midline. Palate elevates symmetrically. Shoulder shrug is normal. Last dose levodopa 300 mg @ 12-1230, exam 1400. Mildly ON. Motor: Muscle bulk is normal. Muscle power is full. Mild bradykinesia. L>RUE mild-mod severity, no LE tremor, minimal R>L bradykinesia, no rigidity. There is minimal oral dyskinesia during FRANCISCO J only. Coordination: Finger to nose is smooth without ataxia. Gait: No tremor during gait, good arm swing and stride length DATA REVIEW Actual films/image/tracing reviewed and summarized as follows: n/a Old records reviewed and summarized as follows: n/a Assessment/Plan ASSESSMENT & PLAN: Soniya Cooley is a 82 year old right-handed male with a history of CAD / s/p CABG and AVR, left carotid stenosis s/p CEA, and tremor who presents for follow up of PD. His examination shows tremor predominant parkinsonism. 1. Parkinson's Disease - ON exam today looks better than last visit when was OFF - Discuss possible changes and decided to leave things unchanged today - Can slightly compress times - Encouraged exercise 2. Constipation - Improved with Miralax 3. RBD, insomnia - Sounds like biggest issue right now is frequent urination at night - Discussed med options for other issues like levodopa or melatonin but deferred, will talk to his PCP about urination and potentially see urology Follow-up: 6 months Risks & Side Effects of Newly Prescribed Medication, Discussed with Patient: n/a Abby Pate MD [facility] Neurology documented in this encounter [facility] 06-24-2023 Instructions Marj Mackey MD - 06/24/2023 4:28 PM EST We are ordering an echocardiogram and a carotid ultrasound documented in this encounter [facility] 06-24-2023 History of Present illness Narrative Images from the original note were not included. [facility] Cardiology ([address]) [address] [facility] [address] OUTPATIENT VISIT DATE 06/24/2023 PRIMARY CARE PHYSICIAN: Oniel Francis [address] [place] [address] HISTORY OF PRESENT ILLNESS: Mr. Cooley is a 82 year old gentleman with a history of coronary artery disease with remote coronary bypass grafting with an SVG graft to dominant left circumflex, left PDA with a Y graft to the diagonal branch (2002). He underwent repeat grafting aortic valve replacement in 2019 with a LLANOS graft LAD and Bernice-Rush aortic valve replacement. Since his last visit, he reports mild increased shortness of breath on exertion. He has not had overt chest pain or pressure. He has not had symptoms concerning for CHF including PND, orthopnea, or lower extremity edema. PAST MEDICAL HISTORY Diagnosis Date Acquired hypothyroidism 03/16/2020 Advance directive discussed with patient 12/12/2021 Allergic rhinitis 06/20/2018 Anticoagulated on Coumadin 01/28/[address] Francis: Aortic (per cardio target INR of 2-2.5.), was placed on coumadin per cardio due to US showing a build up on the bovine Valve, Started in 12/2015 Aortic valve disorder 10/09/2002 History: s/p AVR October 2002 Assessment: s/p 10/29/2018: Redo sternotomy AVR ( tissue valve size 27 ) was implanted in usual manner, LLANOS ( skeletonized ) to LAD BRIEF FINDINGS: Dense pericardial adhesions, degeneration of previous implanted aortic valve, Excellent quality and flow in LLANOS and good size LAD target Plan: ASA Aortic valve replaced 11/13/2005 Aortic, was placed on coumadin per cardio due to US showing a build up on the bovine Valve, Started in 12/2015 Aortic valve replaced 11/13/200510/2018 and anticoagulation was stopped. B12 deficiency 10/18/2014 Carotid stenosis, asymptomatic, bilateral 10/29/2008 S/P left repair, Sees Edu for yearly US. Coronary atherosclerosis 08/24/2015 History: S/p CABG with a sequential graft to the diagonal branch, lateral and posterior lateral circumflex branches as well as PDA in October 2002 Assessment: Now s/p CABG x 1 LLANOS to LAD Plan: CAD Core Measures: Aspirin: Yes Beta blockers: Yes Statins: Lipitor 40mg started 11-01, LFTs normal-continue on dc. Elevated fasting blood sugar 06/19/2016 Essential hypertension 10/30/2018 Family history of colon cancer 01/31/2010 Family history of malignant neoplasm of gastrointestinal tract Family history of Parkinson's disease 12/11/2019 History of DVT (deep vein thrombosis) 06/19/2017 Patient was on coumadin at the time. spring History of rheumatic heart disease 10/09/2002 Living will on file 12/12/2021 DPA: Elizabet () Meniscus tear 12/27/2015 Right, minimal. Seen [facility] hebert Microscopic hematuria 01/10/2021 Saw Luciano 02/2021 and felt further w/u not warranted. 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 Dunn Obesity, Class I, BMI 30-34.9 08/26/2018 Other proteinuria 01/10/2021 24 hr patient 01/2021 normal, Repeat yearly Other proteinuria 01/10/2021 24 hr patient 01/2021 normal, Parkinson disease 12/01/2013 Postsurgical aortocoronary bypass status 2006 Rheum heart dis NEC/NOS Rheumatic fever Seasonal allergies 12/17/[address] Dash Sleep disorder 07/26/2015 Synovial cyst of right popliteal space 01/28/2017 US ER 01/2017: 3.5 x 1.1 CM Vitamin D deficiency 12/03/2013 PAST SURGICAL HISTORY Procedure Laterality Date 2D ECHO (EXEP) 01/08/2020 EF=53%, mild LVH, ABDOMINAL SURGERY HX CABG W/ARTERIAL GRAFT SINGLE ARTERIAL GRAFT 10/29/2018 used mammorary artery COLONOSCOPY FLX DX W/COLLJ SPEC WHEN PFRMD 2003 Colonoscopy COLONOSCOPY FLX DX W/COLLJ SPEC WHEN PFRMD 03/24/2010 Normal, recheck 5 yrs COLONOSCOPY FLX DX W/COLLJ SPEC WHEN PFRMD 01/28/2015 repeat in 5 yrs COLONOSCOPY FLX DX W/COLLJ SPEC WHEN PFRMD 07/03/2021 repeat in 5 years-polyp CORONARY ARTERY BYP W/VEIN & ARTERY GRAFT 4 VEIN 2002 CABG, quadruple grafts FECAL OCCULT BLOOD TEST 12/25/2016 negative HEART CATHETERIZATION [facility], HEART SURGERY HX HERNIA REPAIR HX LAPAROSCOPY SURG CHOLECYSTECTOMY Cholecystectomy, lap LEFT HEART CATH,PERCUTANEOUS 1998 Cardiac cath, L heart PAST SURGICAL HISTORY OF 10/29/2018 Aortic valve replacement with pig valve and anticoagulation stopped RADICAL RESECTION TONSIL W/O CLOSURE REMV CATARACT EXTRACAP,INSERT LENS 08/22/2020 and 09/14/2020 REMV CATARACT EXTRACAP,INSERT LENS Bilateral 2021 RPLCMT PROST AORTIC VALVE OPEN XCP HOMOGRF/STENT 10/13/2002 Aortic valve replacement RPR 1ST INGUN HRNA AGE 6 YRS/> REDUCIBLE Hernia repair, inguinal SKIN BIOPSY HX TEAEC W/PATCH GRF CAROTID VERTB SUBCLAV NECK INC 12/24/2008 Endarterectomy, carotid, Left TONSILLECTOMY HX SOCIAL HISTORY Social History Tobacco Use Smoking status: Never Smokeless tobacco: Never Vaping Use Vaping Use: Never used Substance Use Topics Alcohol use: Yes Alcohol/week: 7.5 standard drinks of alcohol Types: 3 Cans of Beer (12oz) per week Comment: social only Drug use: No FAMILY HISTORY Problem Relation Age of Onset Ischemic Heart Disease Mother Colon Cancer Mother Heart Mother chf Thyroid Mother Diabetes Father other (liver failure/ETOH abuse) Father Ischemic Heart Disease Sister Ischemic Heart Disease Brother Ischemic Heart Disease Brother Hyperlipidemia Sister PTCA/PCI other (parkensons) Sister Cancer Brother prostate cancer other (Pakensons) Brother Hyperlipidemia Child Hyperlipidemia Child ALLERGIES: ALLERGIES Allergen Reactions Iodine Other: See Comments ?decreased BP with iodinated contrast during a cardiac cath. Pt reports he was told by the game agent that they almost lost him due to his reaction and was allergic reaction. The patient reports taking 13 hour allergy premedications in the past with Iodinated contrast without experiencing any breakthrough reaction. Penicillin G Hives MEDICATIONS: carbidopa-levodopa (SINEMET 25-100) 25-100 mg per tablet TAKE 3 TABLETS 3 TIMES A DAY levothyroxine (SYNTHROID) 25 mcg tablet Take 1 tablet by mouth once daily. Take on empty stomach. For thyroid. atorvastatin (LIPITOR) 80 mg tablet Take 1 tablet by mouth once daily. metoprolol tartrate, short acting, (LOPRESSOR) 50 mg tablet Take 1 tablet by mouth twice daily. mometasone (ELOCON) 0.1 % cream Apply to areas twice a day. On for 4 days and off for 3 days. Repeat as needed. meloxicam (MOBIC) 15 mg tablet once daily. ezetimibe (ZETIA) 10 mg tablet Take 1 tablet by mouth once daily. cyanocobalamin, vitamin B-12, 500 mcg ODT Take 2 tablets by mouth once daily. nitroglycerin sublingual (NITROQUICK) 0.4 mg SL tablet Dissolve 1 tablet under the tongue every 5 minutes as needed. clindamycin (CLEOCIN) 150 mg capsule Take 4 tabs 30-60 min before dental procedures. aspirin, enteric coated (ECOTRIN LOW STRENGTH) 81 mg EC tablet Take 1 tablet by mouth once daily. acetaminophen (TYLENOL) 500 mg tablet Take 1,000 mg by mouth every 8 hours as needed for Pain. fluticasone (FLONASE) 50 mcg/actuation nasal spray Use 1 Blum in each nostril once daily. Rinse mouth after use. Cholecalciferol, Vitamin D3, 2,000 unit cap Take 2 tablets by mouth once daily. omega-3 fatty acids/vitamin e(FISH OIL 1,000 MG CAP) one tablet twice daily multivitamins w-minerals/lut(CENTRUM SILVER TAB) One tablet daily furosemide (LASIX) 40 mg tablet Take 1 tablet by mouth once daily. Per cardio (Patient not taking: Reported on 06/24/2023) REVIEW OF SYSTEMS: Review of Systems Constitutional: Negative for chills, fever, malaise/fatigue and weight loss. HENT: Negative for hearing loss and sore throat. Eyes: Negative for blurred vision and double vision. Respiratory: Negative. Cardiovascular: Negative. Genitourinary: Negative for dysuria, frequency, hematuria and urgency. Musculoskeletal: Negative. Skin: Negative. Neurological: Negative for dizziness, seizures, loss of consciousness, weakness and headaches. Endo/Heme/Allergies: Negative for environmental allergies. Does not bruise/bleed easily. Psychiatric/Behavioral: Negative for depression. PHYSICAL EXAMINATION: BP 117/67 Pulse 66 Resp 16 Wt 198 lb (89.8kg) SpO2 95% General: Pleasant gentleman sitting appears comfortable no apparent distress. He is alert and oriented x3 HEENT: Carotid upstrokes are brisk bilaterally. Left carotid endarterectomy scar noted. No JVD. Pulmonary: Lungs are clear no rales, wheezes, rhonchi Cardiovascular: Normal S1, S2 with regular rate and rhythm. Hudspeth aortic valve sounds noted. CARDIOVASCULAR MEDICINE TESTING: Cardiac Catheterization August 2018 Findings: Left main Normal LAD 50% mid stenosis LCx (dominant) severe diffuse proximal disease RCA 100% mid occlusion (non-dominant per records) SVG to Diagonal, AV groove LCx, LPDA patent IFR of the 50% stenosis in the mid LAD was 0.85 which was hemodynamically significant. Impressions: Severe quechan multivessel CAD Patent Bypass grafts Echocardiogram [facility] 01/08/2020 Normal LV size, mild concentric left ventricular hypertrophy. Estimated EF 53% Normal functioning bioprosthetic aortic valve. Mean aortic valve gradient 5 mmHg CTA Chest 10/17/2018: IMPRESSION: 1. Status post AVR and CABG. The bioprosthetic AVR has mild cusp calcifications. 2. The thoracic aorta is normal, aside from mild mixed atherosclerotic changes of the arch and descending segment. There is no acute aortic pathology. 3. Proximity of the cardiovascular structures to the sternum: The left brachiocephalic vein and right ventricular myocardium both lie immediately adjacent to the retrosternum. The remainder of the cardiac and vascular structures, including the bypass grafts, lie a safe distance (>5 mm) from the sternum. Carotid Ultrasound 05/08/2022: IMPRESSION Compared to prior study of 03/23/2015, no change in degree of stenosis. RIGHT SIDE Common carotid artery: Plaque visualized without evidence of hemodynamically significant stenosis. Internal carotid artery: 20-39% stenosis. Vertebral artery: Patent and antegrade flow noted. LEFT SIDE Common carotid artery: Patent. Endarterectomy patch at distal measuring 1.06 cm. Internal carotid artery: 20-39% stenosis. Endarterectomy patch from origin to proximal . Vertebral artery: Patent and antegrade flow noted. CABG/AVR Date of Surgery: 10/29/2018 Primary Surgeon: Michelle Ramirez MD Operations: Reoperative median sternotomy, coronary artery bypass grafting with in situ left internal thoracic artery to the LAD and replacement of aortic valve with #27 CE valve IMPRESSION: Mr. Cooley is a 82 year old gentleman with a history of coronary artery disease and remote coronary bypass grafting in 2002 with an SVG Y graft diagonal and left PDA. He had undergone repeat coronary bypass grafting with aortic valve replacement 2018. Preoperative catheterization demonstrated patent SVG graft. He had a LLANOS to the LAD and a Bernice-Rush valve placed October 2018. He has a history of carotid artery disease with a left carotid endarterectomy, peripheral arterial disease, hypertension, and dyslipidemia. He presents for routine follow-up PLAN AND RECOMMENDATIONS: 1. 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 - ICD9: 414.01, ICD10: I25.10 (primary diagnosis) Doing well without overt anginal symptoms. Some symptoms of shortness of breath. We will recheck an echocardiogram for LV function. May need to consider repeat ischemic evaluation if any progression of symptoms. 2. Aortic valve replaced - ICD9: V43.3, ICD10: Z95.2 - ECHO - PERFLUTREN LIPID MICROSPHERES 1.1 MG/ML INJECTION IN NS 10 ML - SODIUM CHLORIDE 0.9 % (FLUSH) INJECTION SYRINGE 3. Essential hypertension - ICD9: 401.9, ICD10: I10 Well-controlled on current regimen. - ECG COMPLETE 4. Hyperlipidemia, unspecified hyperlipidemia type - ICD9: 272.4, ICD10: E78.5 Maintained on Lipitor 80 mg/Zetia 10 mg once daily. Fasting blood work from December 2022 was reviewed. LDL cholesterol 51 mg/dL - ECG COMPLETE 5. Mixed hyperlipidemia - ICD9: 272.2, ICD10: E78.2 6. Carotid stenosis, asymptomatic, bilateral - ICD9: 433.10, 433.30, ICD10: I65.23 History of left carotid endarterectomy. Repeat carotid ultrasound - US CAROTID ARTERIES [facility] 7. SAUCEDA (dyspnea on exertion) - ICD9: 786.09, ICD10: R06.09 - ECHO - PERFLUTREN LIPID MICROSPHERES 1.1 MG/ML INJECTION IN NS 10 ML - SODIUM CHLORIDE 0.9 % (FLUSH) INJECTION SYRINGE Marj Mackey MD documented in this encounter [facility] 03-20-2023 Instructions Abby Pate MD - 03/20/2023 12:03 PM EDT Lets keep things the same today. We could consider compressing the times of your doses to every 5 hours to try to reduce OFF time. Try to keep an eye on when you're feeling better or worse in comparison to medicine timing. Try to increase activitiy. documented in this encounter [facility] 03-20-2023 History of Present illness Narrative Neurology Follow Up Note Subjective Soniya Cooley is a 82 year old male who presents for follow up. CC: PD Summary of prior care: Right-handed male with a history of CAD / s/p CABG and AVR, left carotid stenosis s/p CEA, and tremor who presents for evaluation of tremor. His examination demonstrates mild parkinsonian features. His presentation is most consistent with Parkinson's Disease. He has motor features of tremor, mild left sided bradykinesia, and mild gait changes. He has mild hypomimia and hypophonia. 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 First visit 01/2020 taper off primidone, start levodopa, encourage exercise, increase hydration but caution with cardiac disease, start miralax. 05/2020 increase levodopa to 150 mg TID, increase hydration, add miralax. 10/2020 increase to 200 mg TID. 04/2021 increase levodopa to 300 mg TID, add melatonin. 08/2021 taper off levodopa without benefit. 12/2021 had increased to 300 TID, no change. 06/2022 try 250 TID with mild dyskinesia. HPI Current Issues 1. PD - Tremor has worsened a bit - Thinks there is some wearing OFF hard to say exactly how long - When he wakes up tremor is definitely worse though not that bothersome - Seeing ortho about knee, had gel injected, doesn't exercise much - Generally doing well on 300 mg TID - Not noticing much mouth movement (dyskinesia) 2. Constipation - Still doing good with miralax - No LH 3. Sleep - Bedtime is 10-1030 - Sleeping well overall except occasionally wakes up to urinate - Moaning a bit more at night, not acting out dreams physically - Gets some cramps in his legs when getting into bed 6-7 12 6-7 Cd/ld 25/100 3 3 3 Current Outpatient Medications Medication Sig Dispense Refill carbidopa-levodopa (SINEMET 25-100) 25-100 mg per tablet TAKE 3 TABLETS 3 TIMES A DAY 810 tablet 2 levothyroxine (SYNTHROID) 25 mcg tablet Take 1 tablet by mouth once daily. Take on empty stomach. For thyroid. 90 tablet 1 atorvastatin (LIPITOR) 80 mg tablet Take 1 tablet by mouth once daily. 90 tablet 1 metoprolol tartrate, short acting, (LOPRESSOR) 50 mg tablet Take 1 tablet by mouth twice daily. 180 tablet 1 mometasone (ELOCON) 0.1 % cream Apply to areas twice a day. On for 4 days and off for 3 days. Repeat as needed. 15 g 1 meloxicam (MOBIC) 15 mg tablet once daily. ezetimibe (ZETIA) 10 mg tablet Take 1 tablet by mouth once daily. 90 tablet 3 cyanocobalamin, vitamin B-12, 500 mcg ODT Take 2 tablets by mouth once daily. nitroglycerin sublingual (NITROQUICK) 0.4 mg SL tablet Dissolve 1 tablet under the tongue every 5 minutes as needed. 5 tablet 1 furosemide (LASIX) 40 mg tablet Take 1 tablet by mouth once daily. Per cardio (Patient not taking: Reported on 02/27/2023) clindamycin (CLEOCIN) 150 mg capsule Take 4 tabs 30-60 min before dental procedures. 4 capsule 3 aspirin, enteric coated (ECOTRIN LOW STRENGTH) 81 mg EC tablet Take 1 tablet by mouth once daily. acetaminophen (TYLENOL) 500 mg tablet Take 1,000 mg by mouth every 8 hours as needed for Pain. fluticasone (FLONASE) 50 mcg/actuation nasal spray Use 1 Blum in each nostril once daily. Rinse mouth after use. 1 Bottle 5 Cholecalciferol, Vitamin D3, 2,000 unit cap Take 2 tablets by mouth once daily. 0 omega-3 fatty acids/vitamin e(FISH OIL 1,000 MG CAP) one tablet twice daily 0 multivitamins w-minerals/lut(CENTRUM SILVER TAB) One tablet daily 0 No current facility-administered medications for this visit. REVIEW OF SYSTEMS His ROS was positive for that mentioned in the HPI. Otherwise a 10-point ROS was completed and was negative. Objective OBJECTIVE 03/20/23 1133 BP: 135/87 BP Site: Left Arm BP Position: Sitting BP Cuff Size: Regular Adult Pulse: 63 SpO2: 96% Weight: 85.3 kg (188 lb) Height: 168.9 cm (5' 6.5) General: General Appearance: Well appearing, alert, in no acute distress, well-hydrated, well nourished. Head: Normocephalic Neurologic Exam: Mental Status: He is alert. Attention is intact. Language shows normal comprehension and fluency. Affect is appropriate. Cranial Nerves: Extraocular movements show full and smooth pursuits. No nystagmus. Facial activation is symmetric. Hearing is intact to conversation. There is mild hypomimia. There is mild hypophonia. There is no dysarthria. Tongue is midline. Palate elevates symmetrically. Shoulder shrug is normal. Last dose levodopa 300 mg @ 2304-7094, exam 1200. Mildly ON. Motor: Muscle bulk is normal. Muscle power is full. Mild bradykinesia. L>RUE mod severity rest tremor mod RLE today as well, mild R>L bradykinesia, no rigidity. There is mild oral dyskinesia during FRANCISCO J only. Coordination: Finger to nose is smooth without ataxia. Gait: Subtle right hand tremor during gait, good arm swing and stride length DATA REVIEW Actual films/image/tracing reviewed and summarized as follows: n/a Old records reviewed and summarized as follows: n/a Assessment/Plan ASSESSMENT & PLAN: Soniya Cooley is a 82 year old right-handed male with a history of CAD / s/p CABG and AVR, left carotid stenosis s/p CEA, and tremor who presents for follow up of PD. His examination shows tremor predominant parkinsonism. 1. Parkinson's Disease - Tremor worse on exam today may be in an OFF state - Seems to be wearing OFF a bit but doesn't think he wants to change regimen today - Could compress timing to every 5 hours if interested - Could also consider adding a CR dose at bedtime if interested - Encouraged him to resume exercise 2. Constipation - Miralax 3. RBD - Not bad enough to need melatonin Follow-up: 6 months Risks & Side Effects of Newly Prescribed Medication, Discussed with Patient: n/a Abby Pate MD [facility] Neurology documented in this encounter [facility] 03-19-2023 Miscellaneous Notes Pharmacy requesting refills as follows via ERAR: ROLAN: 06/18/2022 NOV: 03/20/2023 Requested Prescriptions Pending Prescriptions Disp Refills carbidopa-levodopa (SINEMET 25-100) 25-100 mg per tablet [Pharmacy Med Name: CARB/LEVO TAB 25-100MG] 810 tablet 2 Sig: TAKE 3 TABLETS 3 TIMES A DAY Please review and advise. Amy Garcia documented in this encounter [facility] 12-12-2022 Miscellaneous Notes Pt calling to let office know that [facility] ordered Meloxicam for him. He wanted to be sure it was ok to take with his other medications. Added to med list. No contraindications listed. I verified with ink jet operator. Ana Quigley documented in this encounter [facility] 11-08-2022 Miscellaneous Notes Patient has been identified by name and date of : Pharmacy phones for refill(s): Requested Prescriptions Pending Prescriptions Disp Refills levothyroxine (SYNTHROID) 25 mcg tablet 90 tablet 1 Sig: Take 1 tablet by mouth once daily. Take on empty stomach. For thyroid. Date of last office visit in primary care: 06/22/2022, has appt 12/25/2022 Last 2 Encounter Wt Readings: Date: Wt: 10/29/2022 92.1 kg (203 lb) 06/22/2022 88.9 kg (196 lb) Previous labs/tests for medication: Thyroid: TSH Date Value 06/22/2022 1.610 mIU/L 06/09/2021 1.700 uU/mL Please advise. Thank you. Mayra Breaux LPN documented in this encounter [facility] 11-07-2022 Miscellaneous Notes Patient called this nurse requesting clarification about possibly needing an echocardiogram. Patient reports understanding of plan of care that Dr. Mackey May consider repeat echocardiogram later this year. At 6 month follow up after this nurse reviewed MD note from appointment on 10/29/22. Zoe Madrid RN documented in this encounter [facility] 10-29-2022 History of Present illness Narrative Images from the original note were not included. [facility] SECTION OF REGIONAL CARDIOLOGY Cardiology ([facility]) [address] [facility] [id number] OUTPATIENT VISIT DATE 10/29/2022 PRIMARY CARE PHYSICIAN: Oniel Francis [address] [place] [address] HISTORY OF PRESENT ILLNESS: Mr. Cooley is a 81 year old gentleman with a history of coronary artery disease with remote coronary bypass grafting with an SVG graft to dominant left circumflex, left PDA with a Y graft to the diagonal branch (2002). He underwent repeat grafting aortic valve replacement in 2019 with a LLANOS graft LAD and Bernice-Rush aortic valve replacement. Overall, he reports that he has been doing well from a functional standpoint. He denies symptoms of chest pain or pressure. He has not had symptoms concerning for congestive heart failure including PND, orthopnea, or lower extremity edema. He has not had palpitations, lightheadedness, dizziness, or syncope. PAST MEDICAL HISTORY Diagnosis Date Acquired hypothyroidism 03/16/2020 Advance directive discussed with patient 12/12/2021 Allergic rhinitis 06/20/2018 Anticoagulated on Coumadin 01/28/[address] Francis: Aortic (per cardio target INR of 2-2.5.), was placed on coumadin per cardio due to US showing a build up on the bovine Valve, Started in 12/2015 Aortic valve disorder 10/09/2002 History: s/p AVR October 2002 Assessment: s/p 10/29/2018: Redo sternotomy AVR ( tissue valve size 27 ) was implanted in usual manner, LLANOS ( skeletonized ) to LAD BRIEF FINDINGS: Dense pericardial adhesions, degeneration of previous implanted aortic valve, Excellent quality and flow in LLANOS and good size LAD target Plan: ASA Aortic valve replaced 11/13/2005 Aortic, was placed on coumadin per cardio due to US showing a build up on the bovine Valve, Started in 12/2015 Aortic valve replaced 11/13/200510/2018 and anticoagulation was stopped. B12 deficiency 10/18/2014 Carotid stenosis, asymptomatic, bilateral 10/29/2008 S/P left repair, Sees Edu for yearly US. Coronary atherosclerosis 08/24/2015 History: S/p CABG with a sequential graft to the diagonal branch, lateral and posterior lateral circumflex branches as well as PDA in October 2002 Assessment: Now s/p CABG x 1 LLANOS to LAD Plan: CAD Core Measures: Aspirin: Yes Beta blockers: Yes Statins: Lipitor 40mg started -, LFTs normal-continue on dc. Elevated fasting blood sugar 06/19/2016 Essential hypertension 10/30/2018 Family history of colon cancer 01/31/2010 Family history of malignant neoplasm of gastrointestinal tract Family history of Parkinson's disease 12/11/2019 History of DVT (deep vein thrombosis) 06/19/2017 Patient was on coumadin at the time. spring History of rheumatic heart disease 10/09/2002 Living will on file 12/12/2021 DPA: Elizabet () Meniscus tear 12/27/2015 Right, minimal. Seen Niagar[facility] hebert Microscopic hematuria 01/10/2021 Saw Luciano 02/2021 and felt further w/u not warranted. 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 Dunn Obesity, Class I, BMI 30-34.9 08/26/2018 Other proteinuria 01/10/2021 24 hr patient 01/2021 normal, Repeat yearly Parkinson disease (HCC) 12/01/2013 Postsurgical aortocoronary bypass status 2006 Rheum heart dis NEC/NOS Rheumatic fever Seasonal allergies 12/17/[address] Dash Sleep disorder 07/26/2015 Synovial cyst of right popliteal space 01/28/2017 US ER 01/2017: 3.5 x 1.1 CM Vitamin D deficiency 12/03/2013 PAST SURGICAL HISTORY Procedure Laterality Date 2D ECHO (EXEP) 01/08/2020 EF=53%, mild LVH, ABDOMINAL SURGERY HX CABG W/ARTERIAL GRAFT SINGLE ARTERIAL GRAFT 10/29/2018 used mammorary artery COLONOSCOPY FLX DX W/COLLJ SPEC WHEN PFRMD 2003 Colonoscopy COLONOSCOPY FLX DX W/COLLJ SPEC WHEN PFRMD 03/24/2010 Normal, recheck 5 yrs COLONOSCOPY FLX DX W/COLLJ SPEC WHEN PFRMD 01/28/2015 repeat in 5 yrs COLONOSCOPY FLX DX W/COLLJ SPEC WHEN PFRMD 07/03/2021 repeat in 5 years-polyp CORONARY ARTERY BYP W/VEIN & ARTERY GRAFT 4 VEIN 2002 CABG, quadruple grafts EYE SURGERY HX FECAL OCCULT BLOOD TEST 12/25/2016 negative HEART CATHETERIZATION [facility], HEART SURGERY HX HERNIA REPAIR HX LAPAROSCOPY SURG CHOLECYSTECTOMY Cholecystectomy, lap LEFT HEART CATH,PERCUTANEOUS 1998 Cardiac cath, L heart PAST SURGICAL HISTORY OF 10/29/2018 Aortic valve replacement with pig valve and anticoagulation stopped RADICAL RESECTION TONSIL W/O CLOSURE REMV CATARACT EXTRACAP,INSERT LENS 08/22/2020 and 09/14/2020 RPLCMT PROST AORTIC VALVE OPEN XCP HOMOGRF/STENT 10/13/2002 Aortic valve replacement RPR 1ST INGUN HRNA AGE 5 YRS/> REDUCIBLE Hernia repair, inguinal SKIN BIOPSY HX TEAEC W/PATCH GRF CAROTID VERTB SUBCLAV NECK INC 12/24/2008 Endarterectomy, carotid, Left TONSILLECTOMY HX SOCIAL HISTORY Social History Tobacco Use Smoking status: Never Smokeless tobacco: Never Vaping Use Vaping Use: Never used Substance Use Topics Alcohol use: Yes Alcohol/week: 7.5 standard drinks Types: 3 Cans of Beer (12oz) per week Comment: social only Drug use: No FAMILY HISTORY Problem Relation Age of Onset Ischemic Heart Disease Mother Colon Cancer Mother Heart Mother chf Thyroid Mother Diabetes Father other (liver failure/ETOH abuse) Father Ischemic Heart Disease Sister Ischemic Heart Disease Brother Ischemic Heart Disease Brother Hyperlipidemia Sister PTCA/PCI other (parkensons) Sister Cancer Brother prostate cancer other (Pakensons) Brother Hyperlipidemia Child Hyperlipidemia Child ALLERGIES: ALLERGIES Allergen Reactions Iodine Other: See Comments ?decreased BP with iodinated contrast during a cardiac cath. Pt reports he was told by the game agent that they almost lost him due to his reaction and was allergic reaction. The patient reports taking 13 hour allergy premedications in the past with Iodinated contrast without experiencing any breakthrough reaction. Penicillin G Hives MEDICATIONS: carbidopa-levodopa (SINEMET 25-100) 25-100 mg per tablet TAKE 3 TABLETS 3 TIMES A DAY atorvastatin (LIPITOR) 80 mg tablet Take 1 tablet by mouth once daily. levothyroxine (SYNTHROID) 25 mcg tablet Take 1 tablet by mouth once daily. Take on empty stomach. For thyroid. cyanocobalamin, vitamin B-12, 500 mcg ODT Take 2 tablets by mouth once daily. nitroglycerin sublingual (NITROQUICK) 0.4 mg SL tablet Dissolve 1 tablet under the tongue every 5 minutes as needed. metoprolol tartrate, short acting, (LOPRESSOR) 50 mg tablet Take 1 tablet by mouth twice daily. aspirin, enteric coated (ECOTRIN LOW STRENGTH) 81 mg EC tablet Take 1 tablet by mouth once daily. acetaminophen (TYLENOL) 500 mg tablet Take 1,000 mg by mouth every 8 hours as needed for Pain. fluticasone (FLONASE) 50 mcg/actuation nasal spray Use 1 Blum in each nostril once daily. Rinse mouth after use. Cholecalciferol, Vitamin D3, 2,000 unit cap Take 2 tablets by mouth once daily. omega-3 fatty acids/vitamin e(FISH OIL 1,000 MG CAP) one tablet twice daily multivitamins w-minerals/lut(CENTRUM SILVER TAB) One tablet daily ezetimibe (ZETIA) 10 mg tablet Take 1 tablet by mouth once daily. furosemide (LASIX) 40 mg tablet Take 1 tablet by mouth once daily. Per cardio (Patient not taking: Reported on 10/29/2022) clindamycin (CLEOCIN) 150 mg capsule Take 4 tabs 30-60 min before dental procedures. (Patient not taking: No sig reported) REVIEW OF SYSTEMS: Review of Systems Constitutional: Negative for chills, fever, malaise/fatigue and weight loss. HENT: Negative for hearing loss and sore throat. Eyes: Negative for blurred vision and double vision. Respiratory: Negative. Cardiovascular: Negative. Genitourinary: Negative for dysuria, frequency, hematuria and urgency. Musculoskeletal: Negative. Skin: Negative. Neurological: Negative for dizziness, seizures, loss of consciousness, weakness and headaches. Endo/Heme/Allergies: Negative for environmental allergies. Does not bruise/bleed easily. Psychiatric/Behavioral: Negative for depression. PHYSICAL EXAMINATION: BP 128/78 Pulse 60 Ht 5' 7 (1.70m) Wt 203 lb (92.1kg) BMI 31.79 kg/(m^2). General: Pleasant gentleman sitting appears comfortable no apparent distress. He is alert and oriented x3 HEENT: Carotid upstrokes are brisk bilaterally. Left carotid endarterectomy scar noted. No JVD. Pulmonary: Lungs are clear no rales, wheezes, rhonchi Cardiovascular: Normal S1, S2 with regular rate and rhythm. Hudspeth aortic valve sounds noted. CARDIOVASCULAR MEDICINE TESTING: Cardiac Catheterization August 2018 Findings: Left main Normal LAD 50% mid stenosis LCx (dominant) severe diffuse proximal disease RCA 100% mid occlusion (non-dominant per records) SVG to Diagonal, AV groove LCx, LPDA patent IFR of the 50% stenosis in the mid LAD was 0.85 which was hemodynamically significant. Impressions: Severe quechan multivessel CAD Patent Bypass grafts Echocardiogram [facility] 01/08/2020 Normal LV size, mild concentric left ventricular hypertrophy. Estimated EF 53% Normal functioning bioprosthetic aortic valve. Mean aortic valve gradient 5 mmHg CTA Chest 10/17/2018: IMPRESSION: 1. Status post AVR and CABG. The bioprosthetic AVR has mild cusp calcifications. 2. The thoracic aorta is normal, aside from mild mixed atherosclerotic changes of the arch and descending segment. There is no acute aortic pathology. 3. Proximity of the cardiovascular structures to the sternum: The left brachiocephalic vein and right ventricular myocardium both lie immediately adjacent to the retrosternum. The remainder of the cardiac and vascular structures, including the bypass grafts, lie a safe distance (>5 mm) from the sternum. Carotid Ultrasound 05/08/2022: IMPRESSION Compared to prior study of 03/23/2015, no change in degree of stenosis. RIGHT SIDE Common carotid artery: Plaque visualized without evidence of hemodynamically significant stenosis. Internal carotid artery: 20-39% stenosis. Vertebral artery: Patent and antegrade flow noted. LEFT SIDE Common carotid artery: Patent. Endarterectomy patch at distal measuring 1.06 cm. Internal carotid artery: 20-39% stenosis. Endarterectomy patch from origin to proximal . Vertebral artery: Patent and antegrade flow noted. CABG/AVR Date of Surgery: 10/29/2018 Primary Surgeon: Michelle Ramirez MD Operations: Reoperative median sternotomy, coronary artery bypass grafting with in situ left internal thoracic artery to the LAD and replacement of aortic valve with #27 CE valve IMPRESSION: Mr. Cooley is a 81 year old gentleman with a history of coronary artery disease and remote coronary bypass grafting in 2002 with an SVG Y graft diagonal and left PDA. He had undergone repeat coronary bypass grafting with aortic valve replacement 2018. Preoperative catheterization demonstrated patent SVG graft. He had a LLANOS to the LAD and a Bernice-Rush valve placed October 2018. He has a history of carotid artery disease with a left carotid endarterectomy, peripheral arterial disease, hypertension, and dyslipidemia. He presents for routine follow-up PLAN AND RECOMMENDATIONS: 1. 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 - ICD9: 414.01, ICD10: I25.10 (primary diagnosis) Patient doing well without symptoms concerning for angina. Continue current medical therapy and risk factor modification 2. Aortic valve replaced - ICD9: V43.3, ICD10: Z95.2 Last echocardiogram 2019. May consider repeat echocardiogram later this year. 3. Essential hypertension - ICD9: 401.9, ICD10: I10 Well-controlled on current regimen. 4. Mixed hyperlipidemia - ICD9: 272.2, ICD10: E78.2 Maintained on Lipitor 80 mg daily. I have added Zetia 10 mg daily. Most recent blood work was from June 2022. LDL cholesterol 50 mg/dL. Patient's is reporting increased cost for the Setia. Therapy and attempt to get the medication at another pharmacy. However, the crespo is markedly elevated may consider discontinuation of Zetia 5. Carotid stenosis, asymptomatic, bilateral - ICD9: 433.10, 433.30, ICD10: I65.23 History of left carotid endarterectomy. Most recent ultrasound May 2022. Mild disease bilaterally. 6. Hyperlipidemia, unspecified hyperlipidemia type - ICD9: 272.4, ICD10: E78.5 - EZETIMIBE 10 MG TABLET Marj Mackey MD documented in this encounter [facility] 07-18-2022 Miscellaneous Notes Pharmacy requesting refills as follows via ERAR: ROLAN: 06/18/22 NOV: not scheduled Requested Prescriptions Pending Prescriptions Disp Refills carbidopa-levodopa (SINEMET 25-100) 25-100 mg per tablet [Pharmacy Med Name: CARB/LEVO TAB 25-100MG] 810 tablet 2 Sig: TAKE 3 TABLETS 3 TIMES A DAY Please review and advise. Moni Encarnacion documented in this encounter [facility] 06-26-2022 Miscellaneous Notes Patient calls and notified of results and providers instructions. Patient verbalizes understanding. Stacy Varghese RN Left message for pt to contact office. Hazel Sellers LPN Let patient know his thyroid lab was ok. His A1c is still slightly elevated at 5.7% and has been stable at thi for the last 18 months Continue to try to reduce sugars, starches and carbs in diet. documented in this encounter [facility] 06-22-2022 Instructions Oniel Francis MD - 06/22/2022 9:16 AM EST Please get labs and urine test done on or after 12/07/2022 prior to your next visit. documented in this encounter [facility] 06-22-2022 History of Present illness Narrative Chief Complaint Cough/Runny Nose/Sore Throat HPI Soniya Cooley is a 81 year old male who presents here today for Cough/Runny Nose/Throat Symptoms started about a week sago. The sore throat has improved. Still has rhinorrhea and cough with slight yellow mucus. No hemoptysis. No ear pain, facial pain, gum pain. No shortness of breath or wheezing. No new body aches. No nausea, vomiting or diarrhea. Loss of taste and smell has been a chronic issue. Hs been taking z-cam and niquil with improvement and cough seems to be getting better. Past medical history, appointments, medications, allergies reviewed. Previous Medical History PAST MEDICAL HISTORY Diagnosis Date Acquired hypothyroidism 03/16/2020 Advance directive discussed with patient 12/12/2021 Allergic rhinitis 06/20/2018 Anticoagulated on Coumadin 01/28/[address] Francis: Aortic (per cardio target INR of 2-2.5.), was placed on coumadin per cardio due to US showing a build up on the bovine Valve, Started in 12/2015 Aortic valve disorder 10/09/2002 History: s/p AVR October 2002 Assessment: s/p 10/29/2018: Redo sternotomy AVR ( tissue valve size 27 ) was implanted in usual manner, LLANOS ( skeletonized ) to LAD BRIEF FINDINGS: Dense pericardial adhesions, degeneration of previous implanted aortic valve, Excellent quality and flow in LLANOS and good size LAD target Plan: ASA Aortic valve replaced 11/13/2005 Aortic, was placed on coumadin per cardio due to US showing a build up on the bovine Valve, Started in 12/2015 Aortic valve replaced 11/13/200510/2018 and anticoagulation was stopped. B12 deficiency 10/18/2014 Carotid stenosis, asymptomatic, bilateral 10/29/2008 S/P left repair, Sees Edu for yearly US. Coronary atherosclerosis 08/24/2015 History: S/p CABG with a sequential graft to the diagonal branch, lateral and posterior lateral circumflex branches as well as PDA in October 2002 Assessment: Now s/p CABG x 1 LLANOS to LAD Plan: CAD Core Measures: Aspirin: Yes Beta blockers: Yes Statins: Lipitor 40mg started 3-30, LFTs normal-continue on dc. Elevated fasting blood sugar 06/19/2016 Essential hypertension 10/30/2018 Family history of colon cancer 01/31/2010 Family history of malignant neoplasm of gastrointestinal tract Family history of Parkinson's disease 12/11/2019 History of DVT (deep vein thrombosis) 06/19/2017 Patient was on coumadin at the time. spring History of rheumatic heart disease 10/09/2002 Living will on file 12/12/2021 DPA: Elizabet () Meniscus tear 12/27/2015 Right, minimal. Seen Niagarazuly hebert Microscopic hematuria 01/10/2021 Saw Luciano 02/2021 and felt further w/u not warranted. 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 Dunn Obesity, Class I, BMI 30-34.9 08/26/2018 Other proteinuria 01/10/2021 24 hr patient 01/2021 normal, Repeat yearly Parkinson disease (HCC) 12/01/2013 Postsurgical aortocoronary bypass status 2006 Rheum heart dis NEC/NOS Rheumatic fever Seasonal allergies 12/17/[address] Dash Sleep disorder 07/26/2015 Synovial cyst of right popliteal space 01/28/2017 US ER 01/2017: 3.5 x 1.1 CM Vitamin D deficiency 12/03/2013 Previous Surgical History PAST SURGICAL HISTORY Procedure Laterality Date 2D ECHO (EXEP) 01/08/2020 EF=53%, mild LVH, ABDOMINAL SURGERY HX CABG W/ARTERIAL GRAFT SINGLE ARTERIAL GRAFT 10/29/2018 used mammorary artery COLONOSCOPY FLX DX W/COLLJ SPEC WHEN PFRMD 2003 Colonoscopy COLONOSCOPY FLX DX W/COLLJ SPEC WHEN PFRMD 03/24/2010 Normal, recheck 5 yrs COLONOSCOPY FLX DX W/COLLJ SPEC WHEN PFRMD 01/28/2015 repeat in 5 yrs COLONOSCOPY FLX DX W/COLLJ SPEC WHEN PFRMD 07/03/2021 repeat in 5 years-polyp CORONARY ARTERY BYP W/VEIN & ARTERY GRAFT 4 VEIN 2002 CABG, quadruple grafts EYE SURGERY HX FECAL OCCULT BLOOD TEST 12/25/2016 negative HEART CATHETERIZATION [facility], HEART SURGERY HX HERNIA REPAIR HX LAPAROSCOPY SURG CHOLECYSTECTOMY Cholecystectomy, lap LEFT HEART CATH,PERCUTANEOUS 1997 Cardiac cath, L heart PAST SURGICAL HISTORY OF 10/29/2018 Aortic valve replacement with pig valve and anticoagulation stopped RADICAL RESECTION TONSIL W/O CLOSURE REMV CATARACT EXTRACAP,INSERT LENS 08/22/2020 and 09/14/2020 RPLCMT PROST AORTIC VALVE OPEN XCP HOMOGRF/STENT 10/13/2002 Aortic valve replacement RPR 1ST INGUN HRNA AGE 6 YRS/> REDUCIBLE Hernia repair, inguinal SKIN BIOPSY HX TEAEC W/PATCH GRF CAROTID VERTB SUBCLAV NECK INC 12/24/2008 Endarterectomy, carotid, Left TONSILLECTOMY HX Family History FAMILY HISTORY Problem Relation Age of Onset Ischemic Heart Disease Mother Colon Cancer Mother Heart Mother chf Thyroid Mother Diabetes Father other (liver failure/ETOH abuse) Father Ischemic Heart Disease Sister Ischemic Heart Disease Brother Ischemic Heart Disease Brother Hyperlipidemia Sister PTCA/PCI other (parkensons) Sister Cancer Brother prostate cancer other (Pakensons) Brother Hyperlipidemia Child Hyperlipidemia Child Patient Allergies ALLERGIES Allergen Reactions Iodine Other: See Comments ?decreased BP with iodinated contrast during a cardiac cath. Pt reports he was told by the game agent that they almost lost him due to his reaction and was allergic reaction. The patient reports taking 13 hour allergy premedications in the past with Iodinated contrast without experiencing any breakthrough reaction. Penicillin G Hives Current Medications Current Outpatient Medications on File Prior to Visit Medication Sig levothyroxine (SYNTHROID) 25 mcg tablet Take 1 tablet by mouth once daily. Take on empty stomach. For thyroid. ezetimibe (ZETIA) 10 mg tablet Take 1 tablet by mouth once daily. atorvastatin (LIPITOR) 80 mg tablet Take 1 tablet by mouth once daily. cyanocobalamin, vitamin B-12, 500 mcg ODT Take 2 tablets by mouth once daily. carbidopa-levodopa (SINEMET 25-100) 25-100 mg per tablet Take 3 tablets by mouth three times daily. nitroglycerin sublingual (NITROQUICK) 0.4 mg SL tablet Dissolve 1 tablet under the tongue every 5 minutes as needed. furosemide (LASIX) 40 mg tablet Take 1 tablet by mouth once daily. Per cardio clindamycin (CLEOCIN) 150 mg capsule Take 4 tabs 30-60 min before dental procedures. (Patient not taking: No sig reported) metoprolol tartrate, short acting, (LOPRESSOR) 50 mg tablet Take 1 tablet by mouth twice daily. aspirin, enteric coated (ECOTRIN LOW STRENGTH) 81 mg EC tablet Take 1 tablet by mouth once daily. acetaminophen (TYLENOL) 500 mg tablet Take 1,000 mg by mouth every 8 hours as needed for Pain. fluticasone (FLONASE) 50 mcg/actuation nasal spray Use 1 Blum in each nostril once daily. Rinse mouth after use. Cholecalciferol, Vitamin D3, 2,000 unit cap Take 2 tablets by mouth once daily. omega-3 fatty acids/vitamin e(FISH OIL 1,000 MG CAP) one tablet twice daily multivitamins w-minerals/lut(CENTRUM SILVER TAB) One tablet daily No current facility-administered medications on file prior to visit. Social History Social History Tobacco Use Smoking status: Never Smokeless tobacco: Never Vaping Use Vaping Use: Never used Substance Use Topics Alcohol use: Yes Alcohol/week: 7.5 standard drinks Types: 3 Cans of Beer (12oz) per week Comment: social only Drug use: No Review of Symptoms REVIEW OF SYSTEMS See HPI GENERAL: No weight loss, malaise or fevers CARDIOVASCULAR: Negative for chest pain, leg swelling, hypertension, CHF or palpitations GI: No nausea, vomiting, or diarrhea and No heartburn or reflux symptoms ENDOCRINE: Negative for cold or heat intolerance, polyuria, polydipsia and goiter NEURO: No history of headaches, syncope, paralysis, seizures or tremors EXAM: BP 136/82 (BP Site: Right Arm, BP Position: Sitting, BP Cuff Size: Regular Adult) Pulse 60 Temp 36.2 C (97.2 F) (Tympanic) Resp 18 Wt 88.9 kg (196 lb) BMI 30.70 kg/m Last 5 Encounter Wt Readings: Date: Wt: 06/22/2022 88.9 kg (196 lb) 04/30/2022 88.5 kg (195 lb) 04/23/2022 88.5 kg (195 lb) 02/19/2022 86.9 kg (191 lb 9.6 oz) 12/15/2021 87.1 kg (192 lb) General Appearance: Well appearing, alert, in no acute distress, well-hydrated, well nourished.. Head: Normocephalic, no masses, lesions, tenderness or abnormalities. Eyes: Anicteric sclera. Pupils are equally round. Extraocular movements are intact. . Ears: External ears, TM's normal, canals clear. Nose/Sinuses: Nares normal, septum midline, mucosa normal, no drainage or sinus tenderness. Oropharynx: Lips, mucosa, and tongue normal, teeth and gums normal, oropharynx with post nasal drainage and mild erythema Neck: Supple, no adenopathy; thyroid symmetric, normal size, no bruits. Lungs: Lungs clear to auscultation. No wheezing, rhonchi, rales.. Heart: RRR without murmur, gallop, or rubs. No ectopy. Abdomen: Normal abdominal exam, Abdomen soft, non-tender. Bowel sounds normal. No masses, organomegaly. Extremities: No deformities, edema, skin discoloration, Good capillary refill. . Health Maintenance List BP CONTROLLED (<130/80) due on 06/22/2020 DEPRESSION ASSESSMENT Never done ANNUAL PCP TEAM CHRONIC DISEASE VISIT due on 12/12/2022 LDL CHOLESTEROL due on 06/14/2023 DIABETES SCREEN due on 12/12/2024 DTAP,TDAP,TD(4 - Td or Tdap) due on 12/04/2027 INFLUENZA Completed ADVANCE DIRECTIVE DISCUSSION Completed SHINGRIX VACCINE Completed COVID-19 VACCINE Completed PNEUMOCOCCAL: 65+ Completed Data reviewed Component Latest Ref Rng & Units 12/12/2021 06/14/2022 WBC 3.70 - 11.00 k/uL 6.61 RBC 4.20 - 6.00 m/uL 5.01 Hemoglobin 13.0 - 17.0 g/dL 16.1 Hematocrit 39.0 - 51.0 % 49.3 MCV 80.0 - 100.0 fL 98.4 MCH 26.0 - 34.0 pg 32.1 MCHC 30.5 - 36.0 g/dL 32.7 RDW-CV 11.5 - 15.0 % 12.9 Platelet Count 150 - 400 k/uL 155 MPV 9.0 - 12.7 fL 11.4 Neut% % 43.5 Abs Neut (ANC) 1.45 - 7.50 k/uL 2.88 Lymph% % 44.3 Abs Lymph 1.00 - 4.00 k/uL 2.93 [place]% % 9.2 Abs [place] <0.87 k/uL 0.61 Eosin% % 2.0 Abs Eosin <0.46 k/uL 0.13 Baso% % 0.8 Abs Baso <0.11 k/uL 0.05 Immature Gran % % 0.2 IMMATURE GRANS (ABS) <0.10 k/uL <0.03 NRBC /100 WBC 0.0 Absolute nRBC <0.01 k/uL <0.01 DTYPE Auto Protein, Total 6.3 - 8.0 g/dL 7.3 Albumin 3.9 - 4.9 g/dL 4.6 Calcium 8.5 - 10.2 mg/dL 9.6 Bilirubin, Total 0.2 - 1.3 mg/dL 1.1 Alkaline Phosphatase 38 - 113 U/L 113 AST 14 - 40 U/L 34 35 ALT 10 - 54 U/L 36 37 Glucose 74 - 99 mg/dL 99 BUN 9 - 24 mg/dL 24 Creatinine 0.73 - 1.22 mg/dL 0.85 Sodium 136 - 144 mmol/L 140 Potassium 3.7 - 5.1 mmol/L 4.6 Chloride 97 - 105 mmol/L 104 CO2 22 - 30 mmol/L 26 Anion Gap 9 - 18 mmol/L 10 eGFR >=60 mL/min/1.73m 88 Cholesterol, Total <200 mg/dL 113 Triglyceride <150 mg/dL 99 HDL Cholesterol >39 mg/dL 43 Non HDL Cholesterol <130 mg/dL 70 Fasting Time hrs 12 VLDL Cholesterol <30 mg/dL 20 TC:HDL Ratio <5.10 2.63 LDL Cholesterol <100 mg/dL 50 LDL:HDL Ratio <2.54 1.16 Total Cholesterol, Nonfasting <200 mg/dL 152 Triglycerides, Nonfasting <150 mg/dL 97 HDL Cholesterol, Nonfasting >39 mg/dL 48 LDL Cholesterol, Nonfasting <100 mg/dL 85 Non HDL Cholesterol, Nonfasting <130 mg/dL 104 VLDL Cholesterol, Nonfasting <30 mg/dL 19 Total Chol/HDL Ratio, Nonfasting <5.10 mg/dL 3.17 LDL/HDL Ratio, Nonfasting <2.54 mg/dL 1.77 Hemoglobin A1C 4.3 - 5.6 % 5.7 (H) Estimated Average Glucose mg/dL 117 Vitamin B12 232-1,245 pg/mL 1,130 Vitamin D 25 Hydroxy 31.0 - 80.0 ng/mL 61.1 TSH 0.270 - 4.200 mIU/L 1.710 A/P ASSESSMENT/PLAN: 1. Essential hypertension - ICD9: 401.9, ICD10: I10 (primary diagnosis) - good control - Continue current medication(s) - Recommended regular aerobic exercise. - Recommend home blood pressure monitoring, to bring results in on next visit - Goal of BP <130/80 2. Mixed hyperlipidemia - ICD9: 272.2, ICD10: E78.2 - good control - Encouraged following a low fat, low cholesterol diet. - Discussed the benefits of regular aerobic exercise and weight loss. - Encouraged following a low carbohydrate, healthy oil intake diet. - Continue current therapy. - ATORVASTATIN 80 MG TABLET 3. Elevated blood sugar - ICD9: 790.29, ICD10: R73.9 - check A1c 4. 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 - ICD9: 414.01, ICD10: I25.10 - clinically stable no changes and cont f/u with cardio 5. Carotid stenosis, asymptomatic, bilateral - ICD9: 433.10, 433.30, ICD10: I65.23 - management per vascular and lipids good. 6. Acquired hypothyroidism - ICD9: 244.9, ICD10: E03.9 - Instructed patient on importance of taking on an empty stomach either first thing in the morning or at bedtime. - continue current dose of Synthroid Check TSH 7. Vitamin D deficiency - ICD9: 268.9, ICD10: E55.9 - controlled 8. Obesity, Class I, BMI 30-34.9 - ICD9: 278.00, ICD10: E66.9 Stable - Behavioral intervention 9. B12 deficiency - ICD9: 266.2, ICD10: E53.8 - controlled 10. Viral URI with cough - ICD9: 465.9, ICD10: J06.9 - Discussed viral etiology and rationale for treatment. - Symptomatic treatment with prn analgesia - Supportive care with fluids and rest - will not test for covid since today would be day 110 and patient is improved. Diagnosis would not change Tx. Guidelines discussed. Requested Prescriptions Signed Prescriptions Disp Refills atorvastatin (LIPITOR) 80 mg tablet 90 tablet 1 Sig: Take 1 tablet by mouth once daily. F/u in 6 months extensive check CMP, TSH, Lipid, UA, A1c, CBC, B12, Vit D prior Oniel Francis MD documented in this encounter [facility] 06-18-2022 History of Present illness Narrative VIRTUAL VISIT PROGRESS NOTE This is a virtual visit. It required patient-provider interaction for the medical decision making as documented below. Persons Present: patient and patient's spouse/significant other Subjective Soniya Cooley is a 81 year old male who presents for follow up. CC: PD Summary of prior care: Right-handed male with a history of CAD / s/p CABG and AVR, left carotid stenosis s/p CEA, and tremor who presents for evaluation of tremor. His examination demonstrates mild parkinsonian features. His presentation is most consistent with Parkinson's Disease. He has motor features of tremor, mild left sided bradykinesia, and mild gait changes. He has mild hypomimia and hypophonia. 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 First visit 01/2020 taper off primidone, start levodopa, encourage exercise, increase hydration but caution with cardiac disease, start miralax. 05/2020 increase levodopa to 150 mg TID, increase hydration, add miralax. 10/2020 increase to 200 mg TID. 04/2021 increase levodopa to 300 mg TID, add melatonin. 08/2021 taper off levodopa without benefit. 12/2021 no changes. HPI Current Issues 1. PD - Generally doing well on 300 mg TID - Little bit of tremor first thing in morning before medication - No side effects - Still walking for exercise - Sometimes mouth moves slightly, more noticeable is the legs moving more in the left leg 2. Constipation - Still doing good with miralax 3. Sleep - Sleeping well overall except occasionally wakes up to urinate - Moaning a bit more at night, not acting out dreams physically 0700 1200 1700 Cd/ld 25/100 3 3 3 Current Outpatient Medications Medication Sig Dispense Refill levothyroxine (SYNTHROID) 25 mcg tablet Take 1 tablet by mouth once daily. Take on empty stomach. For thyroid. 90 tablet 1 ezetimibe (ZETIA) 10 mg tablet Take 1 tablet by mouth once daily. 90 tablet 3 atorvastatin (LIPITOR) 80 mg tablet Take 1 tablet by mouth once daily. 90 tablet 1 cyanocobalamin, vitamin B-12, 500 mcg ODT Take 2 tablets by mouth once daily. carbidopa-levodopa (SINEMET 25-100) 25-100 mg per tablet Take 3 tablets by mouth three times daily. 810 tablet 2 nitroglycerin sublingual (NITROQUICK) 0.4 mg SL tablet Dissolve 1 tablet under the tongue every 5 minutes as needed. 5 tablet 1 furosemide (LASIX) 40 mg tablet Take 1 tablet by mouth once daily. Per cardio clindamycin (CLEOCIN) 150 mg capsule Take 4 tabs 30-60 min before dental procedures. (Patient not taking: No sig reported) 4 capsule 3 metoprolol tartrate, short acting, (LOPRESSOR) 50 mg tablet Take 1 tablet by mouth twice daily. aspirin, enteric coated (ECOTRIN LOW STRENGTH) 81 mg EC tablet Take 1 tablet by mouth once daily. acetaminophen (TYLENOL) 500 mg tablet Take 1,000 mg by mouth every 8 hours as needed for Pain. fluticasone (FLONASE) 50 mcg/actuation nasal spray Use 1 Blum in each nostril once daily. Rinse mouth after use. 1 Bottle 5 Cholecalciferol, Vitamin D3, 2,000 unit cap Take 2 tablets by mouth once daily. 0 omega-3 fatty acids/vitamin e(FISH OIL 1,000 MG CAP) one tablet twice daily 0 multivitamins w-minerals/lut(CENTRUM SILVER TAB) One tablet daily 0 No current facility-administered medications for this visit. REVIEW OF SYSTEMS His ROS was positive for that mentioned in the HPI. Otherwise a 10-point ROS was completed and was negative. Objective OBJECTIVE There were no vitals filed for this visit. General: General Appearance: Well appearing, alert, in no acute distress, well-hydrated, well nourished. Head: Normocephalic Neurologic Exam: Mental Status: He is alert. Attention is intact. Language shows normal comprehension and fluency. Affect is appropriate. Cranial Nerves: Extraocular movements show full and smooth pursuits. No nystagmus. Facial activation is symmetric. Hearing is intact to conversation. There is mild hypomimia. There is mild hypophonia. There is no dysarthria. Tongue is midline. Palate elevates symmetrically. Shoulder shrug is normal. Motor: Muscle bulk is normal. Muscle power is full. Mild R>L rest tremor and bradykinesia. There is mild oral dyskinesia during FRANCISCO J only. Coordination: Finger to nose is smooth without ataxia. DATA REVIEW Actual films/image/tracing reviewed and summarized as follows: n/a Old records reviewed and summarized as follows: n/a Assessment/Plan ASSESSMENT & PLAN: Soniya Cooley is a 81 year old right-handed male with a history of CAD / s/p CABG and AVR, left carotid stenosis s/p CEA, and tremor who presents for follow up of PD. His examination shows tremor predominant parkinsonism. 1. Parkinson's Disease - Generally doing well on 300 mg levodopa TID with tremor control - On exam has subtle oral dyskinesia, not bothersome to him - Discussed options, could either continue unchanged or do slight reduction in levodopa to 250 mg TID to see if same level of control without dyskinesia, will try 2.5 tabs first but if he he is interested could try the 25/250 mg tabs - Continue excellent exercise 2. Constipation - Miralax 3. 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 Requested Prescriptions Signed Prescriptions Disp Refills levothyroxine (SYNTHROID) 25 mcg tablet 90 tablet 1 Sig: Take 1 tablet by mouth once daily. Take on empty stomach. For thyroid. Authorizing Provider: ONIEL FRANCIS MD Patient has been identified by name and date of : Yes Requested Prescriptions Pending Prescriptions Disp Refills levothyroxine (SYNTHROID) 25 mcg tablet 90 tablet 1 Sig: Take 1 tablet by mouth once daily. Take on empty stomach. For thyroid. RX INSTRUCTIONS: Patient aware RX will be sent to pharmacy. No need to notify patient. Prudencio Barlow MA Rolan: 12/2021 Nov: 06/2022 Last refill: 11/2021 documented in this encounter [facility] 04-30-2022 Instructions Marj Mackey MD - 04/30/2022 10:36 AM EDT We are adding Zetia 10 mg once per day Repeat fasting blood work in 3-4 months We are scheduling you for an ultrasound of the carotids documented in this encounter [facility] 04-30-2022 History of Present illness Narrative Images from the original note were not included. [facility] SECTION OF REGIONAL CARDIOLOGY Cardiology ([facility]) [address] [facility] [id number] OUTPATIENT VISIT DATE 04/30/2022 PRIMARY CARE PHYSICIAN: Oniel Francis [address] [place] [address] REFERRING PHYSICIAN: SELF CHIEF COMPLAINT: Establish new cardiology follow-up HISTORY OF PRESENT ILLNESS: Mr. Cooley is a 81 year old gentleman with a history of coronary artery disease with remote coronary bypass grafting with an SVG graft to dominant left circumflex, left PDA with a Y graft to the diagonal branch 2002. Underwent repeat grafting aortic valve replacement in 2018 with a LLANOS graft LAD and Bernice-Rush aortic valve replacement. He presents office to establish new cardiology follow-up. From a functional standpoint, he continues to do extremely well. He has had no limitations due to shortness of breath or chest pain/pressure. He has not had symptoms concerning for CHF including PND, orthopnea, lower extremity edema. He has a prescription for Lasix which he uses as needed for lower extremity edema. According to his , home blood pressure readings have been adequate. He denies symptoms concerning for palpitations, heart racing, lightheadedness, dizziness, or syncope. PAST MEDICAL HISTORY Diagnosis Date Acquired hypothyroidism 03/16/2020 Advance directive discussed with patient 12/12/2021 Allergic rhinitis 06/20/2018 Anticoagulated on Coumadin 01/28/[address] Francis: Aortic (per cardio target INR of 2-2.5.), was placed on coumadin per cardio due to US showing a build up on the bovine Valve, Started in 12/2015 Aortic valve disorder 10/09/2002 History: s/p AVR October 2002 Assessment: s/p 10/29/2018: Redo sternotomy AVR ( tissue valve size 27 ) was implanted in usual manner, LLANOS ( skeletonized ) to LAD BRIEF FINDINGS: Dense pericardial adhesions, degeneration of previous implanted aortic valve, Excellent quality and flow in LLANOS and good size LAD target Plan: ASA Aortic valve replaced 11/13/2005 Aortic, was placed on coumadin per cardio due to US showing a build up on the bovine Valve, Started in 12/2015 Aortic valve replaced 11/13/200510/2018 and anticoagulation was stopped. B12 deficiency 10/18/2014 Carotid stenosis, asymptomatic, bilateral 10/29/2008 S/P left repair, Sees Edu for yearly US. Coronary atherosclerosis 08/24/2015 History: S/p CABG with a sequential graft to the diagonal branch, lateral and posterior lateral circumflex branches as well as PDA in October 2002 Assessment: Now s/p CABG x 1 LLANOS to LAD Plan: CAD Core Measures: Aspirin: Yes Beta blockers: Yes Statins: Lipitor 40mg started 11-01, LFTs normal-continue on dc. Elevated fasting blood sugar 06/19/2016 Essential hypertension 10/30/2018 Family history of colon cancer 01/31/2010 Family history of malignant neoplasm of gastrointestinal tract Family history of Parkinson's disease 12/11/2019 History of DVT (deep vein thrombosis) 06/19/2017 Patient was on coumadin at the time. spring History of rheumatic heart disease 10/09/2002 Living will on file 12/12/2021 DPA: Elizabet () Meniscus tear 12/27/2015 Right, minimal. Seen Lamont hebert Microscopic hematuria 01/10/2021 Saw Luciano 02/2021 and felt further w/u not warranted. 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 Dunn Obesity, Class I, BMI 30-34.9 08/26/2018 Other proteinuria 01/10/2021 24 hr patient 01/2021 normal, Repeat yearly Parkinson disease (HCC) 12/01/2013 Postsurgical aortocoronary bypass status 2006 Rheum heart dis NEC/NOS Rheumatic fever Seasonal allergies 12/17/[address] Dash Sleep disorder 07/26/2015 Synovial cyst of right popliteal space 01/28/2017 US ER 01/2017: 3.5 x 1.1 CM Vitamin D deficiency 12/03/2013 PAST SURGICAL HISTORY Procedure Laterality Date 2D ECHO (EXEP) 01/08/2020 EF=53%, mild LVH, ABDOMINAL SURGERY HX CABG W/ARTERIAL GRAFT SINGLE ARTERIAL GRAFT 10/29/2018 used mammorary artery COLONOSCOPY FLX DX W/COLLJ SPEC WHEN PFRMD 2003 Colonoscopy COLONOSCOPY FLX DX W/COLLJ SPEC WHEN PFRMD 03/24/2010 Normal, recheck 5 yrs COLONOSCOPY FLX DX W/COLLJ SPEC WHEN PFRMD 01/28/2015 repeat in 5 yrs COLONOSCOPY FLX DX W/COLLJ SPEC WHEN PFRMD 07/03/2021 repeat in 5 years-polyp CORONARY ARTERY BYP W/VEIN & ARTERY GRAFT 4 VEIN 2002 CABG, quadruple grafts EYE SURGERY HX FECAL OCCULT BLOOD TEST 12/25/2016 negative HEART CATHETERIZATION [facility], HEART SURGERY HX HERNIA REPAIR HX LAPAROSCOPY SURG CHOLECYSTECTOMY Cholecystectomy, lap LEFT HEART CATH,PERCUTANEOUS 1998 Cardiac cath, L heart PAST SURGICAL HISTORY OF 10/29/2018 Aortic valve replacement with pig valve and anticoagulation stopped RADICAL RESECTION TONSIL W/O CLOSURE REMV CATARACT EXTRACAP,INSERT LENS 08/22/2020 and 09/14/2020 RPLCMT PROST AORTIC VALVE OPEN XCP HOMOGRF/STENT 10/13/2002 Aortic valve replacement RPR 1ST INGUN HRNA AGE 6 YRS/> REDUCIBLE Hernia repair, inguinal SKIN BIOPSY HX TEAEC W/PATCH GRF CAROTID VERTB SUBCLAV NECK INC 12/24/2008 Endarterectomy, carotid, Left TONSILLECTOMY HX SOCIAL HISTORY Social History Tobacco Use Smoking status: Never Smokeless tobacco: Never Vaping Use Vaping Use: Never used Substance Use Topics Alcohol use: Yes Alcohol/week: 7.5 standard drinks Types: 3 Cans of Beer (12oz) per week Comment: social only Drug use: No FAMILY HISTORY Problem Relation Age of Onset Ischemic Heart Disease Mother Colon Cancer Mother Heart Mother chf Thyroid Mother Diabetes Father other (liver failure/ETOH abuse) Father Ischemic Heart Disease Sister Ischemic Heart Disease Brother Ischemic Heart Disease Brother Hyperlipidemia Sister PTCA/PCI other (jerzyensons) Sister Cancer Brother prostate cancer other (Kurtisensons) Brother Hyperlipidemia Child Hyperlipidemia Child ALLERGIES: ALLERGIES Allergen Reactions Iodine Other: See Comments ?decreased BP with iodinated contrast during a cardiac cath. Pt reports he was told by the game agent that they almost lost him due to his reaction and was allergic reaction. The patient reports taking 13 hour allergy premedications in the past with Iodinated contrast without experiencing any breakthrough reaction. Penicillin G Hives MEDICATIONS: atorvastatin (LIPITOR) 80 mg tablet Take 1 tablet by mouth once daily. cyanocobalamin, vitamin B-12, 500 mcg ODT Take 2 tablets by mouth once daily. levothyroxine (SYNTHROID) 25 mcg tablet Take 1 tablet by mouth once daily. Take on empty stomach. For thyroid. carbidopa-levodopa (SINEMET 25-100) 25-100 mg per tablet Take 3 tablets by mouth three times daily. nitroglycerin sublingual (NITROQUICK) 0.4 mg SL tablet Dissolve 1 tablet under the tongue every 5 minutes as needed. metoprolol tartrate, short acting, (LOPRESSOR) 50 mg tablet Take 1 tablet by mouth twice daily. aspirin, enteric coated (ECOTRIN LOW STRENGTH) 81 mg EC tablet Take 1 tablet by mouth once daily. acetaminophen (TYLENOL) 500 mg tablet Take 1,000 mg by mouth every 8 hours as needed for Pain. fluticasone (FLONASE) 50 mcg/actuation nasal spray Use 1 Blum in each nostril once daily. Rinse mouth after use. Cholecalciferol, Vitamin D3, 2,000 unit cap Take 2 tablets by mouth once daily. omega-3 fatty acids/vitamin e(FISH OIL 1,000 MG CAP) one tablet twice daily multivitamins w-minerals/lut(CENTRUM SILVER TAB) One tablet daily furosemide (LASIX) 40 mg tablet Take 1 tablet by mouth once daily. Per cardio clindamycin (CLEOCIN) 150 mg capsule Take 4 tabs 30-60 min before dental procedures. (Patient not taking: No sig reported) REVIEW OF SYSTEMS: Review of Systems Constitutional: Negative for chills, fever, malaise/fatigue and weight loss. HENT: Negative for hearing loss and sore throat. Eyes: Negative for blurred vision and double vision. Respiratory: Negative. Cardiovascular: Negative. Genitourinary: Negative for dysuria, frequency, hematuria and urgency. Musculoskeletal: Negative. Skin: Negative. Neurological: Negative for dizziness, seizures, loss of consciousness, weakness and headaches. Endo/Heme/Allergies: Negative for environmental allergies. Does not bruise/bleed easily. Psychiatric/Behavioral: Negative for depression. PHYSICAL EXAMINATION: BP 120/80 Pulse 56 Ht 5' 7 (1.70m) Wt 195 lb (88.5kg) SpO2 94% BMI 30.53 kg/(m^2). General: Pleasant gentleman sitting appears comfortable no apparent distress. He is alert and oriented x3 HEENT: Carotid upstrokes are brisk bilaterally. Left carotid endarterectomy scar noted. No JVD. Pulmonary: Lungs are clear no rales, wheezes, rhonchi Cardiovascular: Normal S1, S2 with regular rate and rhythm. Hudspeth aortic valve sounds noted. CARDIOVASCULAR MEDICINE TESTING: Cardiac Catheterization August 2018 Findings: Left main Normal LAD 50% mid stenosis LCx (dominant) severe diffuse proximal disease RCA 100% mid occlusion (non-dominant per records) SVG to Diagonal, AV groove LCx, LPDA patent IFR of the 50% stenosis in the mid LAD was 0.85 which was hemodynamically significant. Impressions: Severe quechan multivessel CAD Patent Bypass grafts Echocardiogram [facility] 01/08/2020 Normal LV size, mild concentric left ventricular hypertrophy. Estimated EF 53% Normal functioning bioprosthetic aortic valve. Mean aortic valve gradient 5 mmHg CABG/AVR Date of Surgery: 10/29/2018 Primary Surgeon: Michelle Ramirez MD Operations: Reoperative median sternotomy, coronary artery bypass grafting with in situ left internal thoracic artery to the LAD and replacement of aortic valve with #27 CE valve IMPRESSION: Mr. Cooley is a 81 year old gentleman with a history of coronary artery disease and remote coronary bypass grafting in 2002 with an SVG Y graft diagonal and left PDA. He had undergone repeat coronary bypass grafting with aortic valve replacement 2018. Preoperative catheterization demonstrated patent SVG graft. He had a LLANOS to the LAD and a Bernice-Rush valve placed October 2018. He has a history of carotid artery disease with a left carotid endarterectomy, peripheral arterial disease, hypertension, and dyslipidemia. He presents the office to establish new cardiology follow-up. PLAN AND RECOMMENDATIONS: 1. 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 - ICD9: 414.01, ICD10: I25.10 (primary diagnosis) Patient doing well without symptoms concerning for angina. Continue current medical therapy and risk factor modification. 2. Aortic valve replaced - ICD9: V43.3, ICD10: Z95.2 Well-functioning aortic valve on most recent echocardiogram. Consider repeat echocardiogram 2022 3. Essential hypertension - ICD9: 401.9, ICD10: I10 Well-controlled on current regimen 4. Mixed hyperlipidemia - ICD9: 272.2, ICD10: E78.2 Maintained on Lipitor 80 mg daily. Blood work from December 2021 was reviewed. LDL cholesterol 85 mg/dL. I have added Zetia 10 mg daily to his medical regimen. Discussed dietary modification for further improvements in his cholesterol profile and cardiovascular risk reduction - ALT/SGPT - AST/SGOT BLD - LIPID PANEL BASIC 5. Carotid stenosis, asymptomatic, bilateral - ICD9: 433.10, 433.30, ICD10: I65.23 History of left carotid endarterectomy. Plan to repeat carotid ultrasound before next office visit. - US CAROTID ARTERIES [facility] 6. Hyperlipidemia, unspecified hyperlipidemia type - ICD9: 272.4, ICD10: E78.5 - EZETIMIBE 10 MG TABLET Marj Mackey MD documented in this encounter [facility] 04-23-2022 History of Present illness Narrative Patient presents with: Pain (Elbow Pain): Possible bursitis R elbow x today HPI: Right elbow swelling: Duration: noticed today Location: right posterior elbow Character: no pain, feels tight when he bends his elbow Pain relievers: takes daily aspirin Associated: Pertinent negatives: Denies known injury, fever, malaise MEDICATIONS: atorvastatin (LIPITOR) 80 mg tablet Take 1 tablet by mouth once daily. cyanocobalamin, vitamin B-12, 500 mcg ODT Take 2 tablets by mouth once daily. levothyroxine (SYNTHROID) 25 mcg tablet Take 1 tablet by mouth once daily. Take on empty stomach. For thyroid. carbidopa-levodopa (SINEMET 25-100) 25-100 mg per tablet Take 3 tablets by mouth three times daily. nitroglycerin sublingual (NITROQUICK) 0.4 mg SL tablet Dissolve 1 tablet under the tongue every 5 minutes as needed. furosemide (LASIX) 40 mg tablet Take 1 tablet by mouth once daily. Per cardio clindamycin (CLEOCIN) 150 mg capsule Take 4 tabs 30-60 min before dental procedures. (Patient not taking: Reported on 07/17/2021 ) metoprolol tartrate, short acting, (LOPRESSOR) 50 mg tablet Take 1 tablet by mouth twice daily. aspirin, enteric coated (ECOTRIN LOW STRENGTH) 81 mg EC tablet Take 1 tablet by mouth once daily. acetaminophen (TYLENOL) 500 mg tablet Take 1,000 mg by mouth every 8 hours as needed for Pain. fluticasone (FLONASE) 50 mcg/actuation nasal spray Use 1 Blum in each nostril once daily. Rinse mouth after use. Cholecalciferol, Vitamin D3, 2,000 unit cap Take 2 tablets by mouth once daily. omega-3 fatty acids/vitamin e(FISH OIL 1,000 MG CAP) one tablet twice daily multivitamins w-minerals/lut(CENTRUM SILVER TAB) One tablet daily ALLERGIES: ALLERGIES Allergen Reactions Iodine Other: See Comments ?decreased BP with iodinated contrast during a cardiac cath. Pt reports he was told by the game agent that they almost lost him due to his reaction and was allergic reaction. The patient reports taking 13 hour allergy premedications in the past with Iodinated contrast without experiencing any breakthrough reaction. Penicillin G Hives VITALS: BP 116/78 Pulse (!) 57 Temp 36.6 C (97.9 F) Resp 18 Wt 88.5 kg (195 lb) SpO2 94% BMI 31.34 kg/m PE: Pleasant, in no acute distress. Accompanied by his . Elbow: right. Ping-pong ball sized fluid filled sac over the olecranon. No overlying erythema, induration, or abrasion. Non-tender to palpation. Normal range of motion ASSESSMENT/PLAN: 1. Olecranon bursitis of right elbow - ICD9: 726.33, ICD10: M70.21 Suspect hemorrhagic bursitis because of rapid onset painless fluid collection. Placed in Jim wrap. Avoid pressure on the elbow. Follow-up immediately with signs of infection such as redness, pain, or fever/malaise. He may consider orthopedic evaluation for large size of hematoma, but often risk of infection outweighs benefits of evacuation. Naun Monterroso MD documented in this encounter [facility] 04-23-2022 History of Present illness Narrative 01 documented in this encounter [facility] 02-19-2022 History of Present illness Narrative Images from the original note were not included. Subjective HPI HPI Soniya Cooley is a 81 year old male who presents today for CC of tender bumps on body. This started 3 days ago, more coming. Has tried squeezing/popping. Risk factors, no new clothing, injuries. Denies fever. .Patient presents with: Rash: buttocks and groin x3 weeks, 3 days getting worse PAST MEDICAL HISTORY Diagnosis Date Acquired hypothyroidism 03/16/2020 Advance directive discussed with patient 12/12/2021 Allergic rhinitis 06/20/2018 Anticoagulated on Coumadin 01/28/[address] Francis: Aortic (per cardio target INR of 2-2.5.), was placed on coumadin per cardio due to US showing a build up on the bovine Valve, Started in 12/2015 Aortic valve disorder 10/09/2002 History: s/p AVR October 2002 Assessment: s/p 10/29/2018: Redo sternotomy AVR ( tissue valve size 27 ) was implanted in usual manner, LLANOS ( skeletonized ) to LAD BRIEF FINDINGS: Dense pericardial adhesions, degeneration of previous implanted aortic valve, Excellent quality and flow in LLANOS and good size LAD target Plan: ASA Aortic valve replaced 11/13/2005 Aortic, was placed on coumadin per cardio due to US showing a build up on the bovine Valve, Started in 12/2015 Aortic valve replaced 11/13/200510/2018 and anticoagulation was stopped. B12 deficiency 10/18/2014 Carotid stenosis, asymptomatic, bilateral 10/29/2008 S/P left repair, Sees Edu for yearly US. Coronary atherosclerosis 08/24/2015 History: S/p CABG with a sequential graft to the diagonal branch, lateral and posterior lateral circumflex branches as well as PDA in October 2002 Assessment: Now s/p CABG x 1 LLANOS to LAD Plan: CAD Core Measures: Aspirin: Yes Beta blockers: Yes Statins: Lipitor 40mg started 3-30, LFTs normal-continue on dc. Elevated fasting blood sugar 06/19/2016 Essential hypertension 10/30/2018 Family history of colon cancer 01/31/2010 Family history of malignant neoplasm of gastrointestinal tract Family history of Parkinson's disease 12/11/2019 History of DVT (deep vein thrombosis) 06/19/2017 Patient was on coumadin at the time. spring History of rheumatic heart disease 10/09/2002 Living will on file 12/12/2021 DPA: Elizabet () Meniscus tear 12/27/2015 Right, minimal. Seen [facility] Microscopic hematuria 01/10/2021 Saw [facility] 02/2021 and felt further w/u not warranted. 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 Dunn Obesity, Class I, BMI 30-34.9 08/26/2018 Other proteinuria 01/10/2021 24 hr patient 01/2021 normal, Repeat yearly Parkinson disease (HCC) 12/01/2013 Postsurgical aortocoronary bypass status 2006 Rheum heart dis NEC/NOS Rheumatic fever Seasonal allergies 12/17/[address] Dash Sleep disorder 07/26/2015 Synovial cyst of right popliteal space 01/28/2017 US ER 01/2017: 3.5 x 1.1 CM Vitamin D deficiency 12/03/2013 PAST SURGICAL HISTORY Procedure Laterality Date 2D ECHO (EXEP) 01/08/2020 EF=53%, mild LVH, ABDOMINAL SURGERY HX CABG W/ARTERIAL GRAFT SINGLE ARTERIAL GRAFT 10/29/2018 used mammorary artery COLONOSCOPY FLX DX W/COLLJ SPEC WHEN PFRMD 2003 Colonoscopy COLONOSCOPY FLX DX W/COLLJ SPEC WHEN PFRMD 03/24/2010 Normal, recheck 5 yrs COLONOSCOPY FLX DX W/COLLJ SPEC WHEN PFRMD 01/28/2015 repeat in 5 yrs COLONOSCOPY FLX DX W/COLLJ SPEC WHEN PFRMD 07/03/2021 repeat in 5 years-polyp CORONARY ARTERY BYP W/VEIN & ARTERY GRAFT 4 VEIN 2002 CABG, quadruple grafts EYE SURGERY HX FECAL OCCULT BLOOD TEST 12/25/2016 negative HEART CATHETERIZATION [facility], HEART SURGERY HX HERNIA REPAIR HX LAPAROSCOPY SURG CHOLECYSTECTOMY Cholecystectomy, lap LEFT HEART CATH,PERCUTANEOUS 1997 Cardiac cath, L heart PAST SURGICAL HISTORY OF 10/29/2018 Aortic valve replacement with pig valve and anticoagulation stopped RADICAL RESECTION TONSIL W/O CLOSURE REMV CATARACT EXTRACAP,INSERT LENS 08/22/2020 and 09/14/2020 RPLCMT PROST AORTIC VALVE OPEN XCP HOMOGRF/STENT 10/13/2002 Aortic valve replacement RPR 1ST INGUN HRNA AGE 6 YRS/> REDUCIBLE Hernia repair, inguinal SKIN BIOPSY HX TEAEC W/PATCH GRF CAROTID VERTB SUBCLAV NECK INC 12/24/2008 Endarterectomy, carotid, Left TONSILLECTOMY HX ALLERGIES Iodine and Penicillin G MEDICATIONS atorvastatin (LIPITOR) 80 mg tablet Take 1 tablet by mouth once daily. cyanocobalamin, vitamin B-12, 500 mcg ODT Take 2 tablets by mouth once daily. levothyroxine (SYNTHROID) 25 mcg tablet Take 1 tablet by mouth once daily. Take on empty stomach. For thyroid. carbidopa-levodopa (SINEMET 25-100) 25-100 mg per tablet Take 3 tablets by mouth three times daily. nitroglycerin sublingual (NITROQUICK) 0.4 mg SL tablet Dissolve 1 tablet under the tongue every 5 minutes as needed. furosemide (LASIX) 40 mg tablet Take 1 tablet by mouth once daily. Per cardio metoprolol tartrate, short acting, (LOPRESSOR) 50 mg tablet Take 1 tablet by mouth twice daily. aspirin, enteric coated (ECOTRIN LOW STRENGTH) 81 mg EC tablet Take 1 tablet by mouth once daily. acetaminophen (TYLENOL) 500 mg tablet Take 1,000 mg by mouth every 8 hours as needed for Pain. fluticasone (FLONASE) 50 mcg/actuation nasal spray Use 1 Blum in each nostril once daily. Rinse mouth after use. Cholecalciferol, Vitamin D3, 2,000 unit cap Take 2 tablets by mouth once daily. omega-3 fatty acids/vitamin e(FISH OIL 1,000 MG CAP) one tablet twice daily multivitamins w-minerals/lut(CENTRUM SILVER TAB) One tablet daily doxycycline monohydrate 100 mg tablet Take 1 tablet by mouth twice daily for 7 days. clindamycin (CLEOCIN) 150 mg capsule Take 4 tabs 30-60 min before dental procedures. FAMILY HISTORY Problem Relation Age of Onset Ischemic Heart Disease Mother Colon Cancer Mother Heart Mother chf Thyroid Mother Diabetes Father other (liver failure/ETOH abuse) Father Ischemic Heart Disease Sister Ischemic Heart Disease Brother Ischemic Heart Disease Brother Hyperlipidemia Sister PTCA/PCI other (parkensons) Sister Cancer Brother prostate cancer other (Kurtisensons) Brother Hyperlipidemia Child Hyperlipidemia Child Social History Tobacco Use Smoking status: Never Smoker Smokeless tobacco: Never Used Vaping Use Vaping Use: Never used Substance Use Topics Alcohol use: Yes Alcohol/week: 7.5 standard drinks Types: 3 Cans of Beer (12oz) per week Comment: social only Drug use: No ROS Objective Blood pressure 136/82, pulse (!) 56, temperature 36 C (96.8 F), resp. rate 20, weight 86.9 kg (191 lb 9.6 oz), SpO2 94 %. Physical Exam Constitutional: General: He is not in acute distress. Appearance: He is not toxic-appearing or diaphoretic. HENT: Head: Normocephalic and atraumatic. Pulmonary: Effort: Pulmonary effort is normal. No accessory muscle usage or respiratory distress. Skin: Neurological: Mental Status: He is alert and oriented to person, place, and time. ASSESSMENT/PLAN: 1. Rash - ICD9: 782.1, ICD10: R21 Cover with doxy, f/u for continued/worsening s/s. - DOXYCYCLINE MONOHYDRATE 100 MG TABLET Agrees to plan Charan Roman APRN.[employer] documented in this encounter [facility] 12-15-2021 Instructions Abby Pate MD - 12/15/2021 3:52 PM EDT Continue the same dose of medication today. Continue to exercise as much as possible. Consider melatonin for dream enactment behavior - 5 mg a couple hours before bed for 2 weeks then increase to 10 mg if no improvement. documented in this encounter [facility] 12-15-2021 History of Present illness Narrative FOLLOW UP NOTE Subjective Soniya Cooley is a 81 year old male who presents for follow up. CC: PD Summary: Right-handed male with a history of CAD / s/p CABG and AVR, left carotid stenosis s/p CEA, and tremor who presents for evaluation of tremor. His examination demonstrates mild parkinsonian features. His presentation is most consistent with Parkinson's Disease. He has motor features of tremor, mild left sided bradykinesia, and mild gait changes. He has mild hypomimia and hypophonia. 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 First visit 01/2020 taper off primidone, start levodopa, encourage exercise, increase hydration but caution with cardiac disease, start miralax. 05/2020 increase levodopa to 150 mg TID, increase hydration, add miralax. 10/2020 increase to 200 mg TID. 04/2021 increase levodopa to 300 mg TID, add melatonin. 08/2021 taper off levodopa without benefit. HPI Current Issues 1. PD - In interim from last visit had tapered down levodopa to 100 mg TID but shaking worsened so went back up to 300 mg TID - No side effects - No fluctuations - Walks daily 2. Constipation - Still doing good with miralax 3. Sleep - Sometimes wakes up at night to urinate then can't get back to sleep - Moans sometimes in his sleep, physical behavior a few times a month - Sometimes calls out in sleep, maybe a couple times a week - Took melatonin for a while but hasn't lately, didn't notice any difference with it. Not sure took that long. 0800 1200 17-1800 Cd/ld 25/100 3 3 3 Current Outpatient Medications Medication Sig Dispense Refill atorvastatin (LIPITOR) 80 mg tablet Take 1 tablet by mouth once daily. 90 tablet 1 cyanocobalamin, vitamin B-12, 500 mcg ODT Take 2 tablets by mouth once daily. levothyroxine (SYNTHROID) 25 mcg tablet Take 1 tablet by mouth once daily. Take on empty stomach. For thyroid. 90 tablet 1 carbidopa-levodopa (SINEMET 25-100) 25-100 mg per tablet Take 3 tablets by mouth three times daily. 810 tablet 2 nitroglycerin sublingual (NITROQUICK) 0.4 mg SL tablet Dissolve 1 tablet under the tongue every 5 minutes as needed. 5 tablet 1 furosemide (LASIX) 40 mg tablet Take 1 tablet by mouth once daily. Per cardio metoprolol tartrate, short acting, (LOPRESSOR) 50 mg tablet Take 1 tablet by mouth twice daily. aspirin, enteric coated (ECOTRIN LOW STRENGTH) 81 mg EC tablet Take 1 tablet by mouth once daily. acetaminophen (TYLENOL) 500 mg tablet Take 1,000 mg by mouth every 8 hours as needed for Pain. fluticasone (FLONASE) 50 mcg/actuation nasal spray Use 1 Blum in each nostril once daily. Rinse mouth after use. 1 Bottle 5 Cholecalciferol, Vitamin D3, 2,000 unit cap Take 2 tablets by mouth once daily. 0 omega-3 fatty acids/vitamin e(FISH OIL 1,000 MG CAP) one tablet twice daily 0 multivitamins w-minerals/lut(CENTRUM SILVER TAB) One tablet daily 0 clindamycin (CLEOCIN) 150 mg capsule Take 4 tabs 30-60 min before dental procedures. (Patient not taking: Reported on 07/17/2021 ) 4 capsule 3 No current facility-administered medications for this visit. REVIEW OF SYSTEMS His ROS was positive for that mentioned in the HPI. Otherwise a 10-point ROS was completed and was negative. Objective OBJECTIVE 12/15/21 1527 BP: 128/73 BP Site: Right Arm BP Position: Sitting BP Cuff Size: Regular Adult Pulse: 61 Weight: 87.1 kg (192 lb) Height: 168 cm (5' 6.14) General: General Appearance: Well appearing, alert, in no acute distress, well-hydrated, well nourished. Head: Normocephalic Neck: Supple Heart: Borderline bradycardic Peripheral Pulses: Normal Neurologic Exam: Mental Status: He is alert. He is fully oriented. Attention is intact. Memory is intact. Language shows normal comprehension and fluency. Affect is appropriate. Cranial Nerves: Extraocular movements show full and smooth pursuits. No nystagmus. Visual freeman are full to confrontation. Facial activation is symmetric. Hearing is intact to conversation. There is mild hypomimia. There is mild hypophonia. There is no dysarthria. Tongue is midline. Palate elevates symmetrically. Shoulder shrug is normal. Motor: Muscle bulk is normal. Muscle power is full. Mild R>L rest tremor improved from prior. Minimal R>L bradykinesia. Neck rigidity. Mirror movements. Sensory: Intact to fine touch. Coordination: Finger to nose is smooth without ataxia. Gait/station: Mildly decreased arm swing on right. Right hand tremor during gait. DATA REVIEW Actual films/image/tracing reviewed and summarized as follows: n/a Old records reviewed and summarized as follows: n/a Assessment/Plan ASSESSMENT & PLAN: Soniya Cooley is a 81 year old right-handed male with a history of CAD / s/p CABG and AVR, left carotid stenosis s/p CEA, and tremor who presents for follow up of PD. His examination shows tremor predominant parkinsonism. 1. Parkinson's Disease - Levodopa 300 mg TID has helped tremor, continue - No wearing OFF to need to increase frequency - Continue excellent exercise 2. Constipation - Better with miralax, continue 3. RBD - Discussed use of melatonin if they feel is needed Follow-up: 6 months Risks & Side Effects of Newly Prescribed Medication, Discussed with Patient: n/a Abby Pate MD [facility] Neurology documented in this encounter [facility] 11-08-2021 Miscellaneous Notes Pt notified of same and that rx's have lacie sent as requested. Hazel Sellers LPN Please let patient know to contact us for refills. Prescription sent Ella Valdovinos PA-C Please send both medications to mail order pharmacy, [facility]. The pharmacy has been trying to reach the office with no reply. documented in this encounter [facility] 01-10-2021 History of Past i llness Narrative Problem Noted Date Diagnosed Date Resolved Date Other proteinuria 01/10/2021 12/25/2022 Overview: 24 hr patient 01/2021 normal, Tremor 12/11/2019 01/14/2020 Acute deep vein thrombosis ( DVT) of distal vein of lower extremity 04/20/2019 01/14/2020 Stress hyperglycemia 10/29/2018 019 Overview: History: No h/o DM. Assessment: Adrianna-operative insulin resistance and exacerbation of hyperglycemia. Plan: SSI Coagulopathy 10/29/2018 10/30/2018 Overview: History: Given 2 FFP, 2 Plts intra-op. Assessment: No significant bleeding so far. Temp 35.9 Plan: Recheck Coags. Monitor for bleeding. Seasonal allergies 12/17/2016 0 Overview: Sees Dr. Dash Colon cancer screening 12/17/201601/13 Family history of colon cancer 01/31/2010 07/03/2021 Cervicalgia 10/22/2008 02/22/2011 Abnormal involuntary movements(781.0) 12/16/2007 02/28/2012 Aortic valve disorder 10/09/20022019 Overview: History: s/p AVR October 2002 and 10/2018 Assessment: s/p 10/29/2018: Redo sternotomy AVR ( tissue valve size 27 ) was implanted in usual manner, LLANOS ( skeletonized ) to LAD BRIEF FINDINGS: Dense pericardial adhesions, degeneration of previous implanted aortic valve, Excellent quality and flow in LLANOS and good size LAD target Plan: ASA Family history of malignant neoplasm of gastrointestinal tract 01/14/2020 documented as of this encounter (statuses as of 03/19/2023) [facility] History of Past illness Narrative* Problem Noted Date Diagnosed Date Resolved Date Other proteinuria 01/10/2021 12/25/2022 Overview: 24 hr patient 01/2021 normal, Tremor 12/11/2019 01/14/2020 Acute deep vein thrombosis ( DVT) of distal vein of lower extremity 04/20/2019 01/14/2020 Stress hyperglycemia 10/29/201811/01/ 019 Overview: History: No h/o DM. Assessment: Adrianna-operative insulin resistance and exacerbation of hyperglycemia. Plan: SSI Coagulopathy 10/29/2018 10/30/2018 Overview: History: Given 2 FFP, 2 Plts intra-op. Assessment: No significant bleeding so far. Temp 35.9 Plan: Recheck Coags. Monitor for bleeding. Seasonal allergies 12/17/2016 0 Overview: Sees Dr. Dash Colon cancer screening 12/17/201601/13 Family history of colon cancer 01/31/2010 07/03/2021 Cervicalgia 10/22/2008 02/22/2011 Abnormal involuntary movements(781.0) 12/16/2007 02/28/2012 Aortic valve disorder 10/09/20022019 Overview: History: s/p AVR October 2002 and 10/2018 Assessment: s/p 10/29/2018: Redo sternotomy AVR ( tissue valve size 27 ) was implanted in usual manner, LLANOS ( skeletonized ) to LAD BRIEF FINDINGS: Dense pericardial adhesions, degeneration of previous implanted aortic valve, Excellent quality and flow in LLANOS and good size LAD target Plan: ASA Family history of malignant neoplasm of gastrointestinal tract 01/14/2020 documented as of this encounter (statuses as of 03/21/2023) [facility] History of Past illness Narrative* Problem Noted Date Diagnosed Date Resolved Date Other proteinuria 01/10/2021 12/25/2022 Overview: 24 hr patient 01/2021 normal, Tremor 12/11/2019 01/14/2020 Acute deep vein thrombosis ( DVT) of distal vein of lower extremity 04/20/2019 01/14/2020 Stress hyperglycemia 10/29/201811/01/ 019 Overview: History: No h/o DM. Assessment: Adrianna-operative insulin resistance and exacerbation of hyperglycemia. Plan: SSI Coagulopathy 10/29/2018 10/30/2018 Overview: History: Given 2 FFP, 2 Plts intra-op. Assessment: No significant bleeding so far. Temp 35.9 Plan: Recheck Coags. Monitor for bleeding. Seasonal allergies 12/17/2016 0 Overview: Sees Dr. Dash Colon cancer screening 12/17/201601/13 Family history of colon cancer 01/31/2010 07/03/2021 Cervicalgia 10/22/2008 02/22/2011 Abnormal involuntary movements(781.0) 12/16/2007 02/28/2012 Aortic valve disorder 10/09/20022019 Overview: History: s/p AVR October 2002 and 10/2018 Assessment: s/p 10/29/2018: Redo sternotomy AVR ( tissue valve size 27 ) was implanted in usual manner, LLANOS ( skeletonized ) to LAD BRIEF FINDINGS: Dense pericardial adhesions, degeneration of previous implanted aortic valve, Excellent quality and flow in LLANOS and good size LAD target Plan: ASA Family history of malignant neoplasm of gastrointestinal tract 01/14/2020 documented as of this encounter (statuses as of 06/25/2023) [facility] History of Past illness Narrative* Problem Noted Date Diagnosed Date Resolved Date Other proteinuria 01/10/2021 12/25/2022 Overview: 24 hr patient 01/2021 normal, Tremor 12/11/2019 01/14/2020 Acute deep vein thrombosis ( DVT) of distal vein of lower extremity 04/20/2019 01/14/2020 Stress hyperglycemia 10/29/201811/01/ 019 Overview: History: No h/o DM. Assessment: Adrianna-operative insulin resistance and exacerbation of hyperglycemia. Plan: SSI Coagulopathy 10/29/2018 10/30/2018 Overview: History: Given 2 FFP, 2 Plts intra-op. Assessment: No significant bleeding so far. Temp 35.9 Plan: Recheck Coags. Monitor for bleeding. Seasonal allergies 12/17/2016 0 Overview: Sees Dr. Dash Colon cancer screening 12/17/201601/13 Family history of colon cancer 01/31/2010 07/03/2021 Cervicalgia 10/22/2008 02/22/2011 Abnormal involuntary movements(781.0) 12/16/2007 02/28/2012 Aortic valve disorder 10/09/20022019 Overview: History: s/p AVR October 2002 and 10/2018 Assessment: s/p 10/29/2018: Redo sternotomy AVR ( tissue valve size 27 ) was implanted in usual manner, LLANOS ( skeletonized ) to LAD BRIEF FINDINGS: Dense pericardial adhesions, degeneration of previous implanted aortic valve, Excellent quality and flow in LLANOS and good size LAD target Plan: ASA Family history of malignant neoplasm of gastrointestinal tract 01/14/2020 documented as of this encounter (statuses as of 09/12/2023) [facility] History of Past illness Narrative* Problem Noted Date Diagnosed Date Resolved Date Other proteinuria 01/10/2021 12/25/2022 Overview: 24 hr patient 01/2021 normal, Tremor 12/11/2019 01/14/2020 Acute deep vein thrombosis ( DVT) of distal vein of lower extremity 04/20/2019 01/14/2020 Stress hyperglycemia 10/29/2018 019 Overview: History: No h/o DM. Assessment: Adrianna-operative insulin resistance and exacerbation of hyperglycemia. Plan: SSI Coagulopathy 10/29/2018 10/30/2018 Overview: History: Given 2 FFP, 2 Plts intra-op. Assessment: No significant bleeding so far. Temp 35.9 Plan: Recheck Coags. Monitor for bleeding. Seasonal allergies 12/17/2016 Overview: Sees Dr. Dash Colon cancer screening 12/17/201601/13 Family history of colon cancer 01/31/2010 07/03/2021 Cervicalgia 10/22/2008 02/22/2011 Abnormal involuntary movements(781.0) 12/16/2007 02/28/2012 Aortic valve disorder 10/09/20022019 Overview: History: s/p AVR October 2002 and 10/2018 Assessment: s/p 10/29/2018: Redo sternotomy AVR ( tissue valve size 27 ) was implanted in usual manner, LLANOS ( skeletonized ) to LAD BRIEF FINDINGS: Dense pericardial adhesions, degeneration of previous implanted aortic valve, Excellent quality and flow in LLANOS and good size LAD target Plan: ASA Family history of malignant neoplasm of gastrointestinal tract 01/14/2020 documented as of this encounter (statuses as of 11/13/2023) [facility]21 NoteHNO ID: [id number] Author: Abby Pate Service: ? Author Type: Physician Type: Progress Notes Filed: 10/20/2020 9:53 PM Note Text: FOLLOW UP NOTE Subjective Soniya Cooley is a 79 year old male who presents for follow up. CC: PD Summary: Right-handed male with a history of CAD / s/p CABG and AVR, left carotid stenosis s/p CEA, and tremor who presents for evaluation of tremor. His examination demonstrates mild parkinsonian features. His presentation is most consistent with Parkinson's Disease. He has motor features of tremor, mild left sided bradykinesia, and mild gait changes. He has mild hypomimia and hypophonia. 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 First visit 01/2020 taper off primidone, start levodopa, encourage exercise, increase hydration but caution with cardiac disease, start miralax. Last visit 05/2020 increase levodopa to 150 mg TID, increase hydration, add miralax. HPI Current Issues 1. PD - Increased to 1.5 tabs of levodopa last visit - No benefit or worsening with increased dose - No side effects - Using weighted spoon, helping with eating - Exercises with walking 2. Constipation - Has been better since the last visit though completely sure why - Using Miralax PRN - Didn't significantly increase hydration 3. Sleep - For a period of time was having difficulty falling asleep, would be lying in bed awake - Thinks taking it too late in the evening seemed to negatively impact sleep - Has tried melatonin a couple times but doesn't take it regularly 0800 1200 17-1800 Cd/ld 25/100 1.5 1.5 1.5 Current Outpatient Medications Medication Sig Dispense Refill - carbidopa-levodopa (SINEMET 25-100) 25-100 mg per tablet Take 2 tablets by mouth three times daily. 540 tablet 3 - levothyroxine (SYNTHROID) 25 mcg tablet Take 1 tablet by mouth once daily. Take on empty stomach. For thyroid. 90 tablet 1 - atorvastatin (LIPITOR) 40 mg tablet Take 1 tablet by mouth once daily. 90 tablet 1 - nitroglycerin sublingual (NITROQUICK) 0.4 mg SL tablet 0.4 mg. - furosemide (LASIX) 40 mg tablet Take 1 tablet by mouth once daily. Per cardio - clindamycin (CLEOCIN) 150 mg capsule Take 4 tabs 30-60 min before dental procedures. 4 capsule 3 - metoprolol tartrate, short acting, (LOPRESSOR) 50 mg tablet Take 1 tablet by mouth twice daily. - aspirin, enteric coated (ECOTRIN LOW STRENGTH) 81 mg EC tablet Take 1 tablet by mouth once daily. - Cholecalciferol, Vitamin D3, 2,000 unit cap Take 2 tablets by mouth once daily. 0 - cyanocobalamin, vitamin B-12, 500 mcg TbDL Dissolve 500 mcg under the tongue once daily. (Patient taking differently: Take 1,000 mcg by mouth once daily. ) 0 - omega-3 fatty acids/vitamin e(FISH OIL 1,000 MG CAP) one tablet twice daily 0 - multivitamins w-minerals/lut(CENTRUM SILVER TAB) One tablet daily 0 - acetaminophen (TYLENOL) 500 mg tablet Take 1,000 mg by mouth every 8 hours as needed for Pain. - fluticasone (FLONASE) 50 mcg/actuation nasal spray Use 1 Blum in each nostril once daily. Rinse mouth after use. (Patient not taking: Reported on 10/06/2020 ) 1 Bottle 5 No current facility-administered medications for this visit. REVIEW OF SYSTEMS His ROS was positive for that mentioned in the HPI. Otherwise a 10-point ROS was completed and was negative. Objective OBJECTIVE 10/06/20 1057 BP: 142/90 BP Site: Right Arm BP Position: Sitting BP Cuff Size: Regular Adult Pulse: (!) 52 SpO2: 97% Weight: 193 lb 3.2 oz (87.6 kg) Height: 5' 7 (1.702 m) General: General Appearance: Well appearing, alert, in no acute distress, well-hydrated, well nourished. Head: Normocephalic, no masses, lesions, tenderness or abnormalities Neck: Supple Heart: RRR Peripheral Pulses: Normal Neurologic Exam: Mental Status: He is alert. He is fully oriented. Attention is intact. Memory is intact. Language shows normal comprehension and fluency. Affect is appropriate. Cranial Nerves: Pupils are equal and reactive to light. Extraocular movements show full and smooth pursuits. No nystagmus. Visual freeman are full to confrontation. Facial sensation is intact. Facial activation is symmetric. Hearing is intact to conversation. There is mild hypomimia. There is mild hypophonia. There is no dysarthria. Tongue is midline. Palate elevates symmetrically. Shoulder shrug is normal. Motor: Muscle bulk is normal. Muscle power is full. Bilateral UE and LLE rest tremor. Mild R>L bradykinesia. Neck rigidity. Mirror movements. Sensory: Intact to fine touch. Coordination: Finger to nose is smooth without ataxia. Gait/station: Mildly decreased arm swing on right. Right hand tremor during gait. MDS-UPDRS 06/03/2020 10/06/2020 MDS-UPDRS MEDICATION OFF/ON OFF ON MDS-UPDRS TIME of UPDRS - 65437 MDS-UPDRS TIME OF LAST MEDICATION - 38516 MDS-UPDRS LAST MEDICATION TAKEN - cd/ld 25/100 mg 1.5 tabs MDS (more content not included)...[facility]10-30-2020 NoteHNO ID: [id number] Author: Abby Pate Service: ? Author Type: Physician Type: Progress Notes Filed: 06/03/2020 11:00 AM Note Text: FOLLOW UP NOTE Subjective Soniya Cooley is a 79 year old male who presents for follow up. CC: PD Summary: Right-handed male with a history of CAD / s/p CABG and AVR, left carotid stenosis s/p CEA, and tremor who presents for evaluation of tremor. His examination demonstrates mild parkinsonian features. His presentation is most consistent with Parkinson's Disease. He has motor features of tremor, mild left sided bradykinesia, and mild gait changes. He has mild hypomimia and hypophonia. 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 First visit 01/2020 taper off primidone, start levodopa, encourage exercise, increase hydration but caution with cardiac disease, start miralax. HPI Current Issues 1. PD - Slightly better since the last visit overall - Shaking maybe slightly worse when - More animated, seems to have more energy with talking per family. 2 of his 4 kids recently have spontaneously told him how much better he looks. - Still with tremor, which can interfere with certain activity - 2 siblings with PD - Exercises daily by walking up to 2 miles 2. Constipation - Going every 2-3 days and can be difficult - Drinks at least one large Powerade (32 oz) a day - Also does Citracel fiber tablets 0700 1200 1700 Cd/ld 25/100 1 1 1 Current Outpatient Medications Medication Sig Dispense Refill - carbidopa-levodopa (SINEMET 25-100) 25-100 mg per tablet Take 1.5 tablets by mouth three times daily. 405 tablet 3 - atorvastatin (LIPITOR) 40 mg tablet Take 1 tablet by mouth once daily. 90 tablet 1 - nitroglycerin sublingual (NITROQUICK) 0.4 mg SL tablet 0.4 mg. - furosemide (LASIX) 40 mg tablet Take 1 tablet by mouth once daily. Per cardio - levothyroxine (SYNTHROID) 25 mcg tablet Take 1 tablet by mouth once daily. Take on empty stomach. For thyroid. 90 tablet 1 - clindamycin (CLEOCIN) 150 mg capsule Take 4 tabs 30-60 min before dental procedures. 4 capsule 3 - metoprolol tartrate, short acting, (LOPRESSOR) 50 mg tablet Take 1 tablet by mouth twice daily. - aspirin, enteric coated (ECOTRIN LOW STRENGTH) 81 mg EC tablet Take 1 tablet by mouth once daily. - acetaminophen (TYLENOL) 500 mg tablet Take 1,000 mg by mouth every 8 hours as needed for Pain. - fluticasone (FLONASE) 50 mcg/actuation nasal spray Use 1 Blum in each nostril once daily. Rinse mouth after use. 1 Bottle 5 - Cholecalciferol, Vitamin D3, 2,000 unit cap Take 2 tablets by mouth once daily. 0 - cyanocobalamin, vitamin B-12, 500 mcg TbDL Dissolve 500 mcg under the tongue once daily. (Patient taking differently: Take 1,000 mcg by mouth once daily. ) 0 - omega-3 fatty acids/vitamin e(FISH OIL 1,000 MG CAP) one tablet twice daily 0 - multivitamins w-minerals/lut(CENTRUM SILVER TAB) One tablet daily 0 No current facility-administered medications for this visit. REVIEW OF SYSTEMS His ROS was positive for that mentioned in the HPI. Otherwise a 10-point ROS was completed and was negative. Objective OBJECTIVE 06/03/20 0925 BP: 127/74 Pulse: 66 SpO2: 96% Weight: 186 lb (84.4 kg) Height: 5' 7 (1.702 m) General: General Appearance: Well appearing, alert, in no acute distress, well-hydrated, well nourished. Head: Normocephalic, no masses, lesions, tenderness or abnormalities Neck: Supple Heart: RRR Peripheral Pulses: Normal Neurologic Exam: Mental Status: He is alert. He is fully oriented. Attention is intact. Memory is intact. Language shows normal comprehension and fluency. Affect is appropriate. Cranial Nerves: Pupils are equal and reactive to light. Extraocular movements show full and smooth pursuits. No nystagmus. Visual freeman are full to confrontation. Facial sensation is intact. Facial activation is symmetric. Hearing is intact to conversation. There is mild hypomimia. There is mild hypophonia. There is no dysarthria. Tongue is midline. Palate elevates symmetrically. Shoulder shrug is normal. Motor: Muscle bulk is normal. Muscle power is full. Rest tremor during exam most prominent in LUE and LLE but with walking has tremor of right hand. Mild bradykinesia. Neck rigidity. Mirror movements. Mouth opening / closing while doing Francisco J. Sensory: Intact to fine touch. Coordination: Finger to nose is smooth without ataxia. Gait/station: Mildly decreased arm swing on right. Right hand tremor during gait. MDS-UPDRS Motor subscale condition of exam Medication Off/On/Naiive OFF Time of UPDRS Time of Last Medication Last Medication Taken DBS Right DBS Left MDS-UPDRS Motor subscale scores Speech 2-Mild. Loss of modulation, diction, or volume, with a few words unclear, but the overall sentences easy to follow. Facial Expression 2-Mild. In addition to decreased eye-blink frequency, Ma (more content not included)...[facility]06-30-2020 NoteHNO ID: [id number] Author: Abby Pate Service: ? Author Type: Physician Type: Progress Notes Filed: 02/02/2020 1:56 PM Note Text: VIRTUAL VISIT NEW PATIENT NOTE This is a virtual visit. It required patient-provider interaction for the medical decision making as documented below. Persons Present: patient and patient's spouse/significant other Subjective HPI Soniya Cooley is a 79 year old right-handed male who presents for evaluation of tremor. Dr. Francis is the referring physician. Dr. Oniel Francis MD is the PCP. He has been dealing with tremor for around 2-3 years. He first noticed it in his left hand, then spread into right hand and left leg. He notices the hand tremor more when he is using it though left leg more at rest per . They notice tremor when his hand is rest on the steering wheel. He will spill some food while eating, using a spoon now more. No known alcohol response to tremor. He has 2 siblings with PD, both diagnosed in the last 1.5 years (older sister and younger brother). 5 brothers and 2 sisters total. Mom with shaking towards end of her life. [place] background. He endorses some difficulty with manual dexterity due to tremor. Handwriting is small and hard to read. He denies difficulty with walking, says seems slower, slightly hunched. Sense of smell gone, thinks lost it after heart surgery 17 years ago. He has constipation going every 2-3 days but very hard. Doesn't drink enough fluids. Has started taking fiber (citracel) without much benefit. notes that he will moan in his sleep and may push at her a bit, nothing more formed. He was started on primidone pretty close to when his tremor started, slowly increased to current dose of 250 mg QHS. He isn't sure how much benefit it has given him. Was also started on gabapentin late 2018 but this caused too much sedation so stopped. No major problems with memory. Denies mood changes. No LH with standing. Urination with slow stream, going more often with diuretic recently started. Unable to get erections. Recently started on low dose levothyroxine recently with mildly elevated TSH. Medications: Current Outpatient Medications Medication Sig Dispense Refill - nitroglycerin sublingual (NITROQUICK) 0.4 mg SL tablet 0.4 mg. - furosemide (LASIX) 40 mg tablet Take 1 tablet by mouth once daily. Per cardio - levothyroxine (SYNTHROID) 25 mcg tablet Take 1 tablet by mouth once daily. Take on empty stomach. For thyroid. 90 tablet 1 - clindamycin (CLEOCIN) 150 mg capsule Take 4 tabs 30-60 min before dental procedures. 4 capsule 3 - metoprolol tartrate, short acting, (LOPRESSOR) 50 mg tablet Take 1 tablet by mouth twice daily. - aspirin, enteric coated (ECOTRIN LOW STRENGTH) 81 mg EC tablet Take 1 tablet by mouth once daily. - primidone (MYSOLINE) 250 mg tablet Take 1 tablet by mouth daily at bedtime. 90 tablet 1 - atorvastatin (LIPITOR) 40 mg tablet Take 1 tablet by mouth once daily. 90 tablet 1 - acetaminophen (TYLENOL) 500 mg tablet Take 1,000 mg by mouth every 8 hours as needed for Pain. - fluticasone (FLONASE) 50 mcg/actuation nasal spray Use 1 Blum in each nostril once daily. Rinse mouth after use. 1 Bottle 5 - Cholecalciferol, Vitamin D3, 2,000 unit cap Take 2 tablets by mouth once daily. 0 - cyanocobalamin, vitamin B-12, 500 mcg TbDL Dissolve 500 mcg under the tongue once daily. (Patient taking differently: Take 1,000 mcg by mouth once daily. ) 0 - omega-3 fatty acids/vitamin e(FISH OIL 1,000 MG CAP) one tablet twice daily 0 - multivitamins w-minerals/lut(CENTRUM SILVER TAB) One tablet daily 0 No current facility-administered medications for this visit. ROS ROS: His ROS was positive for that mentioned in the HPI. Otherwise a 10-point ROS was completed and was negative. ALLERGIES Allergen Reactions - Iodine Other: See Comments ?decreased BP with iodinated contrast during a cardiac cath. Pt reports he was told by the game agent that they almost lost him due to his reaction and was allergic reaction. The patient reports taking 13 hour allergy premedications in the past with Iodinated contrast without experiencing any breakthrough reaction. - Penicillin G Hives Past Medical History: PAST MEDICAL HISTORY Diagnosis Date - Allergic rhinitis 06/20/2018 - Anticoagulated on Coumadin 01/28/[address] Francis: Aortic (per cardio target INR of 2-2.5.), was placed on coumadin per cardio due to US showing a build up on the bovine Valve, Started in 12/2015 - Aortic valve disorder 10/09/2002 History: s/p AVR October 2002 Assessment: s/p 10/29/2018: Redo sternotomy AVR ( tissue valve size 27 ) was implanted in usual manner, LLANOS ( skeletonized )?to LAD BRIEF FINDINGS:?Dense pericardial adhesions, degeneration of previous implanted aortic valve, Excellent quality and flow in LLANOS and good size LAD target Plan: ASA - Aortic valve replaced 11/14/19 (more content not included)...[facility]05-08-2020 History of Past illness Narrative* Problem Noted Date Resolved Date Tremor 12/11/2019 01/14/2020 Acute deep vein thrombosis ( DVT) of distal vein of lower extremity 04/20/2019 01/14/2020 Stress hyperglycemia 10/29/2018 11/01/2018 Overview: History: No h/o DM. Assessment: Adrianna-operative insulin resistance and exacerbation of hyperglycemia. Plan: SSI Coagulopathy 10/29/2018 10/30/2018 Overview: History: Given 2 FFP, 2 Plts intra-op. Assessment: No significant bleeding so far. Temp 35.9 Plan: Recheck Coags. Monitor for bleeding. Seasonal allergies 12/17/2016 01/14/2020 Overview: Sees Dr. Dash Colon cancer screening 12/17/2016 0 Family history of colon cancer 01/31/2010 1 09/02/2020 Cervicalgia 10/22/2008 02/22/2011 Abnormal involuntary movements(781.0) 12/16/2007 02/28/2012 Aortic valve disorder 10/09/2002 01/14/2020 Overview: History: s/p AVR October 2002 and 10/2018 Assessment: s/p 10/29/2018: Redo sternotomy AVR ( tissue valve size 27 ) was implanted in usual manner, LLANOS ( skeletonized ) to LAD BRIEF FINDINGS: Dense pericardial adhesions, degeneration of previous implanted aortic valve, Excellent quality and flow in LLANOS and good size LAD target Plan: ASA Family history of malignant neoplasm of gastrointestinal tract 01/14/2020 documented as of this encounter (statuses as of 11/08/2021) [facility]05-08-2020 History of Past illness Narrative* Problem Noted Date Resolved Date Tremor 12/11/2019 01/14/2020 Acute deep vein thrombosis ( DVT) of distal vein of lower extremity 04/20/2019 01/14/2020 Stress hyperglycemia 10/29/2018 11/01/2018 Overview: History: No h/o DM. Assessment: Adrianna-operative insulin resistance and exacerbation of hyperglycemia. Plan: SSI Coagulopathy 10/29/2018 10/30/2018 Overview: History: Given 2 FFP, 2 Plts intra-op. Assessment: No significant bleeding so far. Temp 35.9 Plan: Recheck Coags. Monitor for bleeding. Seasonal allergies 12/17/2016 01/14/2020 Overview: Sees Dr. Dash Colon cancer screening 12/17/2016 0 Family history of colon cancer 01/31/2010 1 09/02/2020 Cervicalgia 10/22/2008 02/22/2011 Abnormal involuntary movements(781.0) 12/16/2007 02/28/2012 Aortic valve disorder 10/09/2002 01/14/2020 Overview: History: s/p AVR October 2002 and 10/2018 Assessment: s/p 10/29/2018: Redo sternotomy AVR ( tissue valve size 27 ) was implanted in usual manner, LLANOS ( skeletonized ) to LAD BRIEF FINDINGS: Dense pericardial adhesions, degeneration of previous implanted aortic valve, Excellent quality and flow in LLANOS and good size LAD target Plan: ASA Family history of malignant neoplasm of gastrointestinal tract 01/14/2020 documented as of this encounter (statuses as of 12/01/2021) [facility] History of Past illness Narrative* Problem Noted Date Resolved Date Tremor 12/11/2019 01/14/2020 Acute deep vein thrombosis ( DVT) of distal vein of lower extremity 04/20/2019 01/14/2020 Stress hyperglycemia 10/29/2018 11/01/2018 Overview: History: No h/o DM. Assessment: Adrianna-operative insulin resistance and exacerbation of hyperglycemia. Plan: SSI Coagulopathy 10/29/2018 10/30/2018 Overview: History: Given 2 FFP, 2 Plts intra-op. Assessment: No significant bleeding so far. Temp 35.9 Plan: Recheck Coags. Monitor for bleeding. Seasonal allergies 12/17/2016 01/14/2020 Overview: Sees Dr. Dash Colon cancer screening 12/17/2016 0 Family history of colon cancer 01/31/2010 1 09/02/2020 Cervicalgia 10/22/2008 02/22/2011 Abnormal involuntary movements(781.0) 12/16/2007 02/28/2012 Aortic valve disorder 10/09/2002 01/14/2020 Overview: History: s/p AVR October 2002 and 10/2018 Assessment: s/p 10/29/2018: Redo sternotomy AVR ( tissue valve size 27 ) was implanted in usual manner, LLANOS ( skeletonized ) to LAD BRIEF FINDINGS: Dense pericardial adhesions, degeneration of previous implanted aortic valve, Excellent quality and flow in LLANOS and good size LAD target Plan: ASA Family history of malignant neoplasm of gastrointestinal tract 01/14/2020 documented as of this encounter (statuses as of 12/15/2021) [facility] History of Past illness Narrative* Problem Noted Date Resolved Date Tremor 12/11/2019 01/14/2020 Acute deep vein thrombosis ( DVT) of distal vein of lower extremity 04/20/2019 01/14/2020 Stress hyperglycemia 10/29/2018 11/01/2018 Overview: History: No h/o DM. Assessment: Adrianna-operative insulin resistance and exacerbation of hyperglycemia. Plan: SSI Coagulopathy 10/29/2018 10/30/2018 Overview: History: Given 2 FFP, 2 Plts intra-op. Assessment: No significant bleeding so far. Temp 35.9 Plan: Recheck Coags. Monitor for bleeding. Seasonal allergies 12/17/2016 01/14/2020 Overview: Sees Dr. Dash Colon cancer screening 12/17/2016 0 Family history of colon cancer 01/31/2010 1 09/02/2020 Cervicalgia 10/22/2008 02/22/2011 Abnormal involuntary movements(781.0) 12/16/2007 02/28/2012 Aortic valve disorder 10/09/2002 01/14/2020 Overview: History: s/p AVR October 2002 and 10/2018 Assessment: s/p 10/29/2018: Redo sternotomy AVR ( tissue valve size 27 ) was implanted in usual manner, LLANOS ( skeletonized ) to LAD BRIEF FINDINGS: Dense pericardial adhesions, degeneration of previous implanted aortic valve, Excellent quality and flow in LLANOS and good size LAD target Plan: ASA Family history of malignant neoplasm of gastrointestinal tract 01/14/2020 documented as of this encounter (statuses as of 02/19/2022) [facility] History of Past illness Narrative* Problem Noted Date Resolved Date Tremor 12/11/2019 01/14/2020 Acute deep vein thrombosis ( DVT) of distal vein of lower extremity 04/20/2019 01/14/2020 Stress hyperglycemia 10/29/2018 11/01/2018 Overview: History: No h/o DM. Assessment: Adrianna-operative insulin resistance and exacerbation of hyperglycemia. Plan: SSI Coagulopathy 10/29/2018 10/30/2018 Overview: History: Given 2 FFP, 2 Plts intra-op. Assessment: No significant bleeding so far. Temp 35.9 Plan: Recheck Coags. Monitor for bleeding. Seasonal allergies 12/17/2016 01/14/2020 Overview: Sees Dr. Dash Colon cancer screening 12/17/2016 0 Family history of colon cancer 01/31/2010 1 09/02/2020 Cervicalgia 10/22/2008 02/22/2011 Abnormal involuntary movements(781.0) 12/16/2007 02/28/2012 Aortic valve disorder 10/09/2002 01/14/2020 Overview: History: s/p AVR October 2002 and 10/2018 Assessment: s/p 10/29/2018: Redo sternotomy AVR ( tissue valve size 27 ) was implanted in usual manner, LLANOS ( skeletonized ) to LAD BRIEF FINDINGS: Dense pericardial adhesions, degeneration of previous implanted aortic valve, Excellent quality and flow in LLANOS and good size LAD target Plan: ASA Family history of malignant neoplasm of gastrointestinal tract 01/14/2020 documented as of this encounter (statuses as of 04/23/2022) [facility] History of Past illness Narrative* Problem Noted Date Resolved Date Tremor 12/11/2019 01/14/2020 Acute deep vein thrombosis ( DVT) of distal vein of lower extremity 04/20/2019 01/14/2020 Stress hyperglycemia 10/29/2018 11/01/2018 Overview: History: No h/o DM. Assessment: Adrianna-operative insulin resistance and exacerbation of hyperglycemia. Plan: SSI Coagulopathy 10/29/2018 10/30/2018 Overview: History: Given 2 FFP, 2 Plts intra-op. Assessment: No significant bleeding so far. Temp 35.9 Plan: Recheck Coags. Monitor for bleeding. Seasonal allergies 12/17/2016 01/14/2020 Overview: Sees Dr. Dash Colon cancer screening 12/17/2016 0 Family history of colon cancer 01/31/2010 1 09/02/2020 Cervicalgia 10/22/2008 02/22/2011 Abnormal involuntary movements(781.0) 12/16/2007 02/28/2012 Aortic valve disorder 10/09/2002 01/14/2020 Overview: History: s/p AVR October 2002 and 10/2018 Assessment: s/p 10/29/2018: Redo sternotomy AVR ( tissue valve size 27 ) was implanted in usual manner, LLANOS ( skeletonized ) to LAD BRIEF FINDINGS: Dense pericardial adhesions, degeneration of previous implanted aortic valve, Excellent quality and flow in LLANOS and good size LAD target Plan: ASA Family history of malignant neoplasm of gastrointestinal tract 01/14/2020 documented as of this encounter (statuses as of 04/23/2022) [facility] History of Past illness Narrative* Problem Noted Date Resolved Date Tremor 12/11/2019 01/14/2020 Acute deep vein thrombosis ( DVT) of distal vein of lower extremity 04/20/2019 01/14/2020 Stress hyperglycemia 10/29/2018 11/01/2018 Overview: History: No h/o DM. Assessment: Adrianna-operative insulin resistance and exacerbation of hyperglycemia. Plan: SSI Coagulopathy 10/29/2018 10/30/2018 Overview: History: Given 2 FFP, 2 Plts intra-op. Assessment: No significant bleeding so far. Temp 35.9 Plan: Recheck Coags. Monitor for bleeding. Seasonal allergies 12/17/2016 01/14/2020 Overview: Sees Dr. Dash Colon cancer screening 12/17/2016 0 Family history of colon cancer 01/31/2010 1 09/02/2020 Cervicalgia 10/22/2008 02/22/2011 Abnormal involuntary movements(781.0) 12/16/2007 02/28/2012 Aortic valve disorder 10/09/2002 01/14/2020 Overview: History: s/p AVR October 2002 and 10/2018 Assessment: s/p 10/29/2018: Redo sternotomy AVR ( tissue valve size 27 ) was implanted in usual manner, LLANOS ( skeletonized ) to LAD BRIEF FINDINGS: Dense pericardial adhesions, degeneration of previous implanted aortic valve, Excellent quality and flow in LLANOS and good size LAD target Plan: ASA Family history of malignant neoplasm of gastrointestinal tract 01/14/2020 documented as of this encounter (statuses as of 04/30/2022) [facility] History of Past illness Narrative* Problem Noted Date Resolved Date Tremor 12/11/2019 01/14/2020 Acute deep vein thrombosis ( DVT) of distal vein of lower extremity 04/20/2019 01/14/2020 Stress hyperglycemia 10/29/2018 11/01/2018 Overview: History: No h/o DM. Assessment: Adrianna-operative insulin resistance and exacerbation of hyperglycemia. Plan: SSI Coagulopathy 10/29/2018 10/30/2018 Overview: History: Given 2 FFP, 2 Plts intra-op. Assessment: No significant bleeding so far. Temp 35.9 Plan: Recheck Coags. Monitor for bleeding. Seasonal allergies 12/17/2016 01/14/2020 Overview: Sees Dr. Dash Colon cancer screening 12/17/2016 0 Family history of colon cancer 01/31/2010 1 09/02/2020 Cervicalgia 10/22/2008 02/22/2011 Abnormal involuntary movements(781.0) 12/16/2007 02/28/2012 Aortic valve disorder 10/09/2002 01/14/2020 Overview: History: s/p AVR October 2002 and 10/2018 Assessment: s/p 10/29/2018: Redo sternotomy AVR ( tissue valve size 27 ) was implanted in usual manner, LLANOS ( skeletonized ) to LAD BRIEF FINDINGS: Dense pericardial adhesions, degeneration of previous implanted aortic valve, Excellent quality and flow in LLANOS and good size LAD target Plan: ASA Family history of malignant neoplasm of gastrointestinal tract 01/14/2020 documented as of this encounter (statuses as of 05/11/2022) [facility] History of Past illness Narrative* Problem Noted Date Resolved Date Tremor 12/11/2019 01/14/2020 Acute deep vein thrombosis ( DVT) of distal vein of lower extremity 04/20/2019 01/14/2020 Stress hyperglycemia 10/29/2018 11/01/2018 Overview: History: No h/o DM. Assessment: Adrianna-operative insulin resistance and exacerbation of hyperglycemia. Plan: SSI Coagulopathy 10/29/2018 10/30/2018 Overview: History: Given 2 FFP, 2 Plts intra-op. Assessment: No significant bleeding so far. Temp 35.9 Plan: Recheck Coags. Monitor for bleeding. Seasonal allergies 12/17/2016 01/14/2020 Overview: Sees Dr. Dash Colon cancer screening 12/17/2016 0 Family history of colon cancer 01/31/2010 1 09/02/2020 Cervicalgia 10/22/2008 02/22/2011 Abnormal involuntary movements(781.0) 12/16/2007 02/28/2012 Aortic valve disorder 10/09/2002 01/14/2020 Overview: History: s/p AVR October 2002 and 10/2018 Assessment: s/p 10/29/2018: Redo sternotomy AVR ( tissue valve size 27 ) was implanted in usual manner, LLANOS ( skeletonized ) to LAD BRIEF FINDINGS: Dense pericardial adhesions, degeneration of previous implanted aortic valve, Excellent quality and flow in LLANOS and good size LAD target Plan: ASA Family history of malignant neoplasm of gastrointestinal tract 01/14/2020 documented as of this encounter (statuses as of 05/23/2022) [facility] History of Past illness Narrative* Problem Noted Date Resolved Date Tremor 12/11/2019 01/14/2020 Acute deep vein thrombosis ( DVT) of distal vein of lower extremity 04/20/2019 01/14/2020 Stress hyperglycemia 10/29/2018 11/01/2018 Overview: History: No h/o DM. Assessment: Adrianna-operative insulin resistance and exacerbation of hyperglycemia. Plan: SSI Coagulopathy 10/29/2018 10/30/2018 Overview: History: Given 2 FFP, 2 Plts intra-op. Assessment: No significant bleeding so far. Temp 35.9 Plan: Recheck Coags. Monitor for bleeding. Seasonal allergies 12/17/2016 01/14/2020 Overview: Sees Dr. Dash Colon cancer screening 12/17/2016 0 Family history of colon cancer 01/31/2010 1 09/02/2020 Cervicalgia 10/22/2008 02/22/2011 Abnormal involuntary movements(781.0) 12/16/2007 02/28/2012 Aortic valve disorder 10/09/2002 01/14/2020 Overview: History: s/p AVR October 2002 and 10/2018 Assessment: s/p 10/29/2018: Redo sternotomy AVR ( tissue valve size 27 ) was implanted in usual manner, LLANOS ( skeletonized ) to LAD BRIEF FINDINGS: Dense pericardial adhesions, degeneration of previous implanted aortic valve, Excellent quality and flow in LLANOS and good size LAD target Plan: ASA Family history of malignant neoplasm of gastrointestinal tract 01/14/2020 documented as of this encounter (statuses as of 06/24/2022) [facility] History of Past illness Narrative* Problem Noted Date Resolved Date Tremor 12/11/2019 01/14/2020 Acute deep vein thrombosis ( DVT) of distal vein of lower extremity 04/20/2019 01/14/2020 Stress hyperglycemia 10/29/2018 11/01/2018 Overview: History: No h/o DM. Assessment: Adrianna-operative insulin resistance and exacerbation of hyperglycemia. Plan: SSI Coagulopathy 10/29/2018 10/30/2018 Overview: History: Given 2 FFP, 2 Plts intra-op. Assessment: No significant bleeding so far. Temp 35.9 Plan: Recheck Coags. Monitor for bleeding. Seasonal allergies 12/17/2016 01/14/2020 Overview: Sees Dr. Dash Colon cancer screening 12/17/2016 0 Family history of colon cancer 01/31/2010 1 09/02/2020 Cervicalgia 10/22/2008 02/22/2011 Abnormal involuntary movements(781.0) 12/16/2007 02/28/2012 Aortic valve disorder 10/09/2002 01/14/2020 Overview: History: s/p AVR October 2002 and 10/2018 Assessment: s/p 10/29/2018: Redo sternotomy AVR ( tissue valve size 27 ) was implanted in usual manner, LLANOS ( skeletonized ) to LAD BRIEF FINDINGS: Dense pericardial adhesions, degeneration of previous implanted aortic valve, Excellent quality and flow in LLANOS and good size LAD target Plan: ASA Family history of malignant neoplasm of gastrointestinal tract 01/14/2020 documented as of this encounter (statuses as of 06/24/2022) [facility] History of Past illness Narrative* Problem Noted Date Resolved Date Tremor 12/11/2019 01/14/2020 Acute deep vein thrombosis ( DVT) of distal vein of lower extremity 04/20/2019 01/14/2020 Stress hyperglycemia 10/29/2018 11/01/2018 Overview: History: No h/o DM. Assessment: Adrianna-operative insulin resistance and exacerbation of hyperglycemia. Plan: SSI Coagulopathy 10/29/2018 10/30/2018 Overview: History: Given 2 FFP, 2 Plts intra-op. Assessment: No significant bleeding so far. Temp 35.9 Plan: Recheck Coags. Monitor for bleeding. Seasonal allergies 12/17/2016 01/14/2020 Overview: Sees Dr. Dash Colon cancer screening 12/17/2016 0 Family history of colon cancer 01/31/2010 1 09/02/2020 Cervicalgia 10/22/2008 02/22/2011 Abnormal involuntary movements(781.0) 12/16/2007 02/28/2012 Aortic valve disorder 10/09/2002 01/14/2020 Overview: History: s/p AVR October 2002 and 10/2018 Assessment: s/p 10/29/2018: Redo sternotomy AVR ( tissue valve size 27 ) was implanted in usual manner, LLANOS ( skeletonized ) to LAD BRIEF FINDINGS: Dense pericardial adhesions, degeneration of previous implanted aortic valve, Excellent quality and flow in LLANOS and good size LAD target Plan: ASA Family history of malignant neoplasm of gastrointestinal tract 01/14/2020 documented as of this encounter (statuses as of 06/26/2022) [facility] History of Past illness Narrative* Problem Noted Date Resolved Date Tremor 12/11/2019 01/14/2020 Acute deep vein thrombosis ( DVT) of distal vein of lower extremity 04/20/2019 01/14/2020 Stress hyperglycemia 10/29/2018 11/01/2018 Overview: History: No h/o DM. Assessment: Adrianna-operative insulin resistance and exacerbation of hyperglycemia. Plan: SSI Coagulopathy 10/29/2018 10/30/2018 Overview: History: Given 2 FFP, 2 Plts intra-op. Assessment: No significant bleeding so far. Temp 35.9 Plan: Recheck Coags. Monitor for bleeding. Seasonal allergies 12/17/2016 01/14/2020 Overview: Sees Dr. Dash Colon cancer screening 12/17/2016 0 Family history of colon cancer 01/31/2010 1 09/02/2020 Cervicalgia 10/22/2008 02/22/2011 Abnormal involuntary movements(781.0) 12/16/2007 02/28/2012 Aortic valve disorder 10/09/2002 01/14/2020 Overview: History: s/p AVR October 2002 and 10/2018 Assessment: s/p 10/29/2018: Redo sternotomy AVR ( tissue valve size 27 ) was implanted in usual manner, LLANOS ( skeletonized ) to LAD BRIEF FINDINGS: Dense pericardial adhesions, degeneration of previous implanted aortic valve, Excellent quality and flow in LLANOS and good size LAD target Plan: ASA Family history of malignant neoplasm of gastrointestinal tract 01/14/2020 documented as of this encounter (statuses as of 07/18/2022) [facility] History of Past illness Narrative* Problem Noted Date Resolved Date Tremor 12/11/2019 01/14/2020 Acute deep vein thrombosis ( DVT) of distal vein of lower extremity 04/20/2019 01/14/2020 Stress hyperglycemia 10/29/2018 11/01/2018 Overview: History: No h/o DM. Assessment: Adrianna-operative insulin resistance and exacerbation of hyperglycemia. Plan: SSI Coagulopathy 10/29/2018 10/30/2018 Overview: History: Given 2 FFP, 2 Plts intra-op. Assessment: No significant bleeding so far. Temp 35.9 Plan: Recheck Coags. Monitor for bleeding. Seasonal allergies 12/17/2016 01/14/2020 Overview: Sees Dr. Dash Colon cancer screening 12/17/2016 0 Family history of colon cancer 01/31/2010 1 09/02/2020 Cervicalgia 10/22/2008 02/22/2011 Abnormal involuntary movements(781.0) 12/16/2007 02/28/2012 Aortic valve disorder 10/09/2002 01/14/2020 Overview: History: s/p AVR October 2002 and 10/2018 Assessment: s/p 10/29/2018: Redo sternotomy AVR ( tissue valve size 27 ) was implanted in usual manner, LLANOS ( skeletonized ) to LAD BRIEF FINDINGS: Dense pericardial adhesions, degeneration of previous implanted aortic valve, Excellent quality and flow in LLANOS and good size LAD target Plan: ASA Family history of malignant neoplasm of gastrointestinal tract 01/14/2020 documented as of this encounter (statuses as of 10/29/2022) [facility] History of Past illness Narrative* Problem Noted Date Resolved Date Tremor 12/11/2019 01/14/2020 Acute deep vein thrombosis ( DVT) of distal vein of lower extremity 04/20/2019 01/14/2020 Stress hyperglycemia 10/29/2018 11/01/2018 Overview: History: No h/o DM. Assessment: Adrianna-operative insulin resistance and exacerbation of hyperglycemia. Plan: SSI Coagulopathy 10/29/2018 10/30/2018 Overview: History: Given 2 FFP, 2 Plts intra-op. Assessment: No significant bleeding so far. Temp 35.9 Plan: Recheck Coags. Monitor for bleeding. Seasonal allergies 12/17/2016 01/14/2020 Overview: Sees Dr. Dash Colon cancer screening 12/17/2016 0 Family history of colon cancer 01/31/2010 1 09/02/2020 Cervicalgia 10/22/2008 02/22/2011 Abnormal involuntary movements(781.0) 12/16/2007 02/28/2012 Aortic valve disorder 10/09/2002 01/14/2020 Overview: History: s/p AVR October 2002 and 10/2018 Assessment: s/p 10/29/2018: Redo sternotomy AVR ( tissue valve size 27 ) was implanted in usual manner, LLANOS ( skeletonized ) to LAD BRIEF FINDINGS: Dense pericardial adhesions, degeneration of previous implanted aortic valve, Excellent quality and flow in LLANOS and good size LAD target Plan: ASA Family history of malignant neoplasm of gastrointestinal tract 01/14/2020 documented as of this encounter (statuses as of 11/08/2022) [facility] of Past illness Narrative* Problem Noted Date Resolved Date Tremor 12/11/2019 01/14/2020 Acute deep vein thrombosis ( DVT) of distal vein of lower extremity 04/20/2019 01/14/2020 Stress hyperglycemia 10/29/2018 11/01/2018 Overview: History: No h/o DM. Assessment: Adrianna-operative insulin resistance and exacerbation of hyperglycemia. Plan: SSI Coagulopathy 10/29/2018 10/30/2018 Overview: History: Given 2 FFP, 2 Plts intra-op. Assessment: No significant bleeding so far. Temp 35.9 Plan: Recheck Coags. Monitor for bleeding. Seasonal allergies 12/17/2016 01/14/2020 Overview: Sees Dr. Dash Colon cancer screening 12/17/2016 0 Family history of colon cancer 01/31/2010 1 09/02/2020 Cervicalgia 10/22/2008 02/22/2011 Abnormal involuntary movements(781.0) 12/16/2007 02/28/2012 Aortic valve disorder 10/09/2002 01/14/2020 Overview: History: s/p AVR October 2002 and 10/2018 Assessment: s/p 10/29/2018: Redo sternotomy AVR ( tissue valve size 27 ) was implanted in usual manner, LLANOS ( skeletonized ) to LAD BRIEF FINDINGS: Dense pericardial adhesions, degeneration of previous implanted aortic valve, Excellent quality and flow in LLANOS and good size LAD target Plan: ASA Family history of malignant neoplasm of gastrointestinal tract 01/14/2020 documented as of this encounter (statuses as of 11/08/2022) [facility] of Past illness Narrative* Problem Noted Date Resolved Date Tremor 12/11/2019 01/14/2020 Acute deep vein thrombosis ( DVT) of distal vein of lower extremity 04/20/2019 01/14/2020 Stress hyperglycemia 10/29/2018 11/01/2018 Overview: History: No h/o DM. Assessment: Adrianna-operative insulin resistance and exacerbation of hyperglycemia. Plan: SSI Coagulopathy 10/29/2018 10/30/2018 Overview: History: Given 2 FFP, 2 Plts intra-op. Assessment: No significant bleeding so far. Temp 35.9 Plan: Recheck Coags. Monitor for bleeding. Seasonal allergies 12/17/2016 01/14/2020 Overview: Sees Dr. Dash Colon cancer screening 12/17/2016 0 Family history of colon cancer 01/31/2010 1 09/02/2020 Cervicalgia 10/22/2008 02/22/2011 Abnormal involuntary movements(781.0) 12/16/2007 02/28/2012 Aortic valve disorder 10/09/2002 01/14/2020 Overview: History: s/p AVR October 2002 and 10/2018 Assessment: s/p 10/29/2018: Redo sternotomy AVR ( tissue valve size 27 ) was implanted in usual manner, LLANOS ( skeletonized ) to LAD BRIEF FINDINGS: Dense pericardial adhesions, degeneration of previous implanted aortic valve, Excellent quality and flow in LLANOS and good size LAD target Plan: ASA Family history of malignant neoplasm of gastrointestinal tract 01/14/2020 documented as of this encounter (statuses as of 12/13/2022) [facility]* Diagnosis Mixed hyperlipidemia [facility] Parkinson disease (HCC)- Primary Paralysis agitans Chronic idiopathic constipation Unspecified constipation 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 [facility] Rash- Primary Rash and other nonspecific skin eruption [facility] Aortic valve replaced- Primary Heart valve replaced by other means [facility] Diagnosis Olecranon bursitis of right elbow- Primary Olecranon bursitis [facility] Diagnosis 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 Aortic valve replaced Heart valve replaced by other means Essential hypertension Unspecified essential hypertension Mixed hyperlipidemia Carotid stenosis, asymptomatic, bilateral Hyperlipidemia, unspecified hyperlipidemia type [facility] Diagnosis Essential hypertension- Primary Unspecified essential hypertension Mixed hyperlipidemia Elevated blood sugar Other abnormal glucose 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 Carotid stenosis, asymptomatic, bilateral Acquired hypothyroidism Unspecified hypothyroidism Vitamin D deficiency Unspecified vitamin D deficiency Obesity, Class I, BMI 30-34.9 Obesity, unspecified B12 deficiency Other B-complex deficiencies Viral URI with cough Acute upper respiratory infections of unspecified site Medication management Encounter for long-term (current) use of other medications [facility] Diagnosis Parkinson disease (HCC) Paralysis agitans [facility] 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 Aortic valve replaced Heart valve replaced by other means Essential hypertension Unspecified essential hypertension Mixed hyperlipidemia Carotid stenosis, asymptomatic, bilateral Hyperlipidemia, unspecified hyperlipidemia type [facility] Parkinson disease (HCC) Paralysis agitans [facility] Parkinson disease (HCC)- Primary Paralysis agitans Chronic idiopathic constipation Unspecified constipation 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 [facility] Diagnosis 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 Aortic valve replaced Heart valve replaced by other means Essential hypertension Unspecified essential hypertension Hyperlipidemia, unspecified hyperlipidemia type Mixed hyperlipidemia Carotid stenosis, asymptomatic, bilateral SAUCEDA (dyspnea on exertion) Other dyspnea and respiratory abnormality [facility] Diagnosis 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 Chronic idiopathic constipation Unspecified constipation Insomnia, unspecified type [facility] Acute cough- Primary [facility] 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 Aortic valve replaced Heart valve replaced by other means Essential hypertension Unspecified essential hypertension Mixed hyperlipidemia Carotid stenosis, asymptomatic, bilateral Screening for ischemic heart disease Pre-operative cardiovascular examination [facility] Diagnosis URI, acute- Primary Acute upper respiratory infections of unspecified site X-ray of lung, abnormal Other nonspecific abnormal finding of lung field Mixed hyperlipidemia 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 Elevated blood sugar Other abnormal glucose Essential hypertension Unspecified essential hypertension Acquired hypothyroidism Unspecified hypothyroidism Vitamin D deficiency Unspecified vitamin D deficiency B12 deficiency Other B-complex deficiencies [facility] Diagnosis Medicare annual wellness visit, subsequent- Primary Routine general medical examination at a health care facility [facility] directive discussed with patient Other specified counseling Arthritis of knee Unspecified arthropathy, lower leg Acquired hypothyroidism Unspecified hypothyroidism Elevated blood sugar Other abnormal glucose B12 deficiency Other B-complex deficiencies Mixed hyperlipidemia Essential hypertension Unspecified essential hypertension 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 Aortic valve replaced Heart valve replaced by other means Parkinson's disease with dyskinesia and fluctuating manifestations (HCC) BPH associated with nocturia Hypertrophy of prostate with urinary obstruction and other lower urinary tract symptoms (LUTS) [facility]* Diagnosis 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 Chronic idiopathic constipation Unspecified constipation Insomnia, unspecified type documented [facility] this encounter [facility]* Diagnosis Nocturia associated with benign prostatic hyperplasia- Primary documented [facility]* Diagnosis Mixed hyperlipidemia- Primary Essential hypertension Unspecified essential hypertension B12 deficiency Other B-complex deficiencies Elevated blood sugar Other abnormal glucose Acquired hypothyroidism Unspecified hypothyroidism Vitamin D deficiency Unspecified vitamin D deficiency documented in this encounter [facility] note* Diagnosis URI, acute Acute upper respiratory infections of unspecified site X-ray of lung, abnormal Other nonspecific abnormal finding of lung field [facility] encounter [facility]* Diagnosis Acute cough [facility]* Diagnosis Bilateral leg pain- Primary Pain in limb Bilateral lower extremity edema Edema Benign localized prostatic hyperplasia with lower urinary tract symptoms (LUTS) Benign localized hyperplasia of prostate with urinary obstruction and other lower urinary tract symptoms (LUTS) documented [facility]* Diagnosis Essential hypertension- Primary Unspecified essential hypertension Mixed hyperlipidemia documented [facility]* Diagnosis Benign localized prostatic hyperplasia with lower urinary tract symptoms (LUTS) Benign localized hyperplasia of prostate with urinary obstruction and other lower urinary tract symptoms (LUTS) documented [facility]* Diagnosis Hyperlipidemia, unspecified hyperlipidemia type documented [facility]* Diagnosis Hyperlipidemia, unspecified hyperlipidemia type documented in this encounter [facility] note* Diagnosis Benign localized prostatic hyperplasia with lower urinary tract symptoms (LUTS) Benign localized hyperplasia of prostate with urinary obstruction and other lower urinary tract symptoms (LUTS) [facility]* Diagnosis 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 Aortic valve replaced Heart valve replaced by other means Mixed hyperlipidemia Essential hypertension Unspecified essential hypertension Carotid stenosis, asymptomatic, bilateral Hyperlipidemia, unspecified hyperlipidemia type SAUCEDA (dyspnea on exertion) Other dyspnea and respiratory abnormality [facility]* Diagnosis 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 Insomnia, unspecified type Chronic idiopathic constipation Unspecified constipation 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 [facility] Mixed hyperlipidemia [facility] noteNo assessment information availableMenifee Global [facility] Center Work Phone: Hospital course Narrative No data available for this section [facility] Discharge instructions No data available for this section [facility] Progress note No data available for this section [facility] Reason for referral (narrative)* Outpatient Procedure (Routine) - Authorized Specialty Diagnoses / Procedures Referred By Nayely t Referred To [facility] Diagnoses Aortic valve replaced Procedures ECG COMPLETE ECG ROUTINE ECG W/LEAST 12 LDS W/I&R Marj Mackey MD [address] [place] [address] [address] Referral ID Status Reason Start Date Expiration Date Visits Requested Visits Authorized [id number] Authorized Auto-Generat ed Referral 04/23/2022 04/23/2023 1 1 [facility] for referral (narrative)* Outpatient Procedure (Routine) - Authorized Specialty Diagnoses / Procedures Referred By Contac t Referred To [facility] Diagnoses Carotid stenosis, asymptomatic, bilateral Procedures US CAROTID ARTERIES CLAUDY VAS LAB DUPLEX SCAN EXTRACRANIAL ART COMPL BI STUDY Marj Mackey MD [address] [place] [address] [address] Referral ID Status Reason Start Date Expiration Date Visits Requested Visits Authorized [id number] Authorized Auto-Generat ed Referral 04/30/2022 08/04/2022 1 1 [facility] for referral (narrative)* Outpatient Procedure (Routine) - Authorized Specialty Diagnoses / Procedures [facility] Diagnoses Carotid stenosis, asymptomatic, bilateral Procedures US CAROTID ARTERIES CLAUDY VAS LAB DUPLEX SCAN EXTRACRANIAL ART COMPL BI STUDY Marj Mackey MD [facility] [place] [address] [address] Referral ID Status Reason Start Date Expiration Date Visits Requested Visits Authorized [id number] Authorized Auto-Generat ed Referral 3 06/23/2024 1 1 * Outpatient Procedure (Routine) - Authorized Specialty Diagnoses / Procedures [facility] Diagnoses Aortic valve replaced SAUCEDA (dyspnea on exertion) Procedures ECHO ECHO TTHRC R-T 2D W/WOM-MODE COMPL SPEC&COLR D Marj Mackey MD [address] [place] [address] [address] Referral ID Status Reason Start Date Expiration Date Visits Requested Visits Authorized [id number] Authorized Auto-Generat ed Referral 3 06/23/2024 1 1 * Outpatient Procedure (Routine) - Pending Review Specialty Diagnoses / Procedures [facility] Referred To Contact [facility] Diagnoses Essential hypertension Hyperlipidemia, unspecified hyperlipidemia type Procedures ECG COMPLETE ECG ROUTINE ECG W/LEAST 12 LDS W/I&R Marj Mackey MD [address] [place] [address] [address] Referral ID Status Reason Start Date Expiration Date Visits Requested Visits Authorized [id number] Pending Review Auto-Generat ed Referral 3 06/17/2024 1 1 [facility] for referral (narrative)* Outpatient Procedure (Routine) - Pending Review Specialty Diagnoses / Procedures [facility] Referred To Contact [facility] Diagnoses Screening for ischemic heart disease Procedures ECG COMPLETE ECG ROUTINE ECG W/LEAST 12 LDS W/I&R Marj Mackey MD [address] [place] [address] Fax: [facility] [address] [address] Referral ID Status Reason Start Date Expiration Date Visits Requested Visits Authorized [id number] Pending Review Auto-Generat ed Referral 12/18/2023 12/17/2024 1 1 [facility] for referral (narrative)* Diagnostic Procedure Only (Urgent) - Authorized Specialty Diagnoses / Procedures [facility]erred [facility] Referred To Contact [facility] Diagnoses Bilateral leg pain Bilateral lower extremity edema Procedures US DVT LOWER BILATERAL DUP-SCAN XTR VEINS COMPLETE BILATERAL STUDY Zina Druan APRN.[employer] [facility] [place] [address] [place] [id number] Referral ID Status Reason Start Date Expiration Date Visits Requested Visits Authorized [id number] Authorized Auto-Generat ed Referral 05/07/2024 06/06/2025 1 1 T [facility] for referral (narrative)* Outpatient Procedure (Routine) - Authorized Specialty Diagnoses / Procedures [facility] Referred To Contact [facility] Diagnoses 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 Aortic valve replaced Procedures ECHO ECHO TTHRC R-T 2D W/WOM-MODE COMPL SPEC&COLR D Marj Mackey MD [address] [place] [address] Fax: [facility] [address] [place] [address] Referral ID Status Reason Start Date Expiration Date Visits Requested Visits Authorized [id number] Authorized Auto-Generat ed Referral 08/31/2024 08/31/2025 1 1 [facility] for referral (narrative)No reason for referral information availableMenifee Global Medical Center Work Phone: Summary Purpose Family History Relationship Condition Age at Onset Recorded Date/T dany mother Cardiac disease Unknown Malignant neoplasm of colon Unknown father Diabetes mellitus Unknown sister Cardiac disease Unknown brother Cardiac disease Unknown Advance Directives Documents on File Type Date 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 Advance Directive(s) 07/03/2021 9:21 AM Advance Directive(s) 06/16/2021 11:32 AM Advance Directive(s) 10/17/2018 5:01 PM Advance Directive(s) 10/17/2018 5:00 PM Advance Directive(s) 09/24/2018 1:08 PM Advance Directive(s) 08/26/2018 7:31 AM Advance Directive(s) 09/05/2011 12:00 AM Advance Directive(s) 09/20/2006 12:00 AM Documents on File Type Date Recorded 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 Advance Directive(s) 10/17/2018 5:00 PM Advance Directive(s) 09/05/2011 Advance Directive(s) 09/20/2006 Documents on File Type Date Recorded 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 Advance Directive(s) 10/17/2018 5:00 PM Advance Directive(s) 09/05/2011 Advance Directive(s) 09/20/2006 Advance Directive Response Recorded Date/ Time Advance Directives Yes January 18 3:22pm Chief Complaint and Reason for Visit Chief Complaint Admit Date XRAY January 18, 2025 3:23 pm Additional Source Comments (unrecognized sect ion and content) No Status Records FoundNo Status Records FoundNo Status Records FoundNo Status Records FoundNo Status Records Found INFORMATION SOURCE (unrecogn ized section and content) DATE CREATED AUTHOR 10/18/2018 [facility] DATE CREATED AUTHOR AUTHOR'S ORGANIZ ATION 12/19/2020 [facility] DATE CREATED AUTHOR AUTHOR'S ORGANIZ ATION 02/26/2024 [facility] ([place]) DATE CREATED AUTHOR AUTHOR'S ORGANIZ ATION 06/06/2024 [facility] DATE CREATED AUTHOR AUTHOR'S ORGANIZ ATION 12/03/2024 [facility] Source Comments (unrecognize d section and content) In the event this informatio n is protected by the Federal Confidentiality of Alcohol and Drug Abuse Patient Records regulations: The Federal rules restrict any use of the information to criminally investigate or prosecute any alcohol or drug abuse patient.[facility] the event this information is protected by the Federal Confidentiality of Alcohol and Drug Abuse Patient Records regulations: The Federal rules restrict any use of the information to criminally investigate or prosecute any alcohol or drug abuse patient.[facility] SystemIn the event this information is protected by the Federal Confidentiality of Alcohol and Drug Abuse Patient Records regulations: The Federal rules restrict any use of the information to criminally investigate or prosecute any alcohol or drug abuse patient.[facility] SystemIn the event this information is protected by the Federal Confidentiality of Alcohol and Drug Abuse Patient Records regulations: The Federal rules restrict any use of the information to criminally investigate or prosecute any alcohol or drug abuse patient.[facility] SystemIn the event this information is protected by the Federal Confidentiality of Alcohol and Drug Abuse Patient Records regulations: The Federal rules restrict any use of the information to criminally investigate or prosecute any alcohol or drug abuse patient.[facility] SystemIn the event this information is protected by the Federal Confidentiality of Alcohol and Drug Abuse Patient Records regulations: The Federal rules restrict any use of the information to criminally investigate or prosecute any alcohol or drug abuse patient.[facility] SystemIn the event this information is protected by the Federal Confidentiality of Alcohol and Drug Abuse Patient Records regulations: The Federal rules restrict any use of the information to criminally investigate or prosecute any alcohol or drug abuse patient.[facility] SystemIn the event this information is protected by the Federal Confidentiality of Alcohol and Drug Abuse Patient Records regulations: The Federal rules restrict any use of the information to criminally investigate or prosecute any alcohol or drug abuse patient.[facility] SystemIn the event this information is protected by the Federal Confidentiality of Alcohol and Drug Abuse Patient Records regulations: The Federal rules restrict any use of the information to criminally investigate or prosecute any alcohol or drug abuse patient.[facility] SystemIn the event this information is protected by the Federal Confidentiality of Alcohol and Drug Abuse Patient Records regulations: The Federal rules restrict any use of the information to criminally investigate or prosecute any alcohol or drug abuse patient.[facility] SystemIn the event this information is protected by the Federal Confidentiality of Alcohol and Drug Abuse Patient Records regulations: The Federal rules restrict any use of the information to criminally investigate or prosecute any alcohol or drug abuse patient.[facility] SystemIn the event this information is protected by the Federal Confidentiality of Alcohol and Drug Abuse Patient Records regulations: The Federal rules restrict any use of the information to criminally investigate or prosecute any alcohol or drug abuse patient.[facility] SystemIn the event this information is protected by the Federal Confidentiality of Alcohol and Drug Abuse Patient Records regulations: The Federal rules restrict any use of the information to criminally investigate or prosecute any alcohol or drug abuse patient.[facility] SystemIn the event this information is protected by the Federal Confidentiality of Alcohol and Drug Abuse Patient Records regulations: The Federal rules restrict any use of the information to criminally investigate or prosecute any alcohol or drug abuse patient.[facility] SystemIn the event this information is protected by the Federal Confidentiality of Alcohol and Drug Abuse Patient Records regulations: The Federal rules restrict any use of the information to criminally investigate or prosecute any alcohol or drug abuse patient.[facility] SystemIn the event this information is protected by the Federal Confidentiality of Alcohol and Drug Abuse Patient Records regulations: The Federal rules restrict any use of the information to criminally investigate or prosecute any alcohol or drug abuse patient.[facility] SystemIn the event this information is protected by the Federal Confidentiality of Alcohol and Drug Abuse Patient Records regulations: The Federal rules restrict any use of the information to criminally investigate or prosecute any alcohol or drug abuse patient.[facility] SystemIn the event this information is protected by the Federal Confidentiality of Alcohol and Drug Abuse Patient Records regulations: The Federal rules restrict any use of the information to criminally investigate or prosecute any alcohol or drug abuse patient.[facility] SystemIn the event this information is protected by the Federal Confidentiality of Alcohol and Drug Abuse Patient Records regulations: The Federal rules restrict any use of the information to criminally investigate or prosecute any alcohol or drug abuse patient.[facility] SystemIn the event this information is protected by the Federal Confidentiality of Alcohol and Drug Abuse Patient Records regulations: The Federal rules restrict any use of the information to criminally investigate or prosecute any alcohol or drug abuse patient.[facility] the event this information is protected by the Federal Confidentiality of Alcohol and Drug Abuse Patient Records regulations: The Federal rules restrict any use of the information to criminally investigate or prosecute any alcohol or drug abuse patient.[facility] SystemIn the event this information is protected by the Federal Confidentiality of Alcohol and Drug Abuse Patient Records regulations: The Federal rules restrict any use of the information to criminally investigate or prosecute any alcohol or drug abuse patient.[facility] SystemIn the event this information is protected by the Federal Confidentiality of Alcohol and Drug Abuse Patient Records regulations: The Federal rules restrict any use of the information to criminally investigate or prosecute any alcohol or drug abuse patient.[facility] the event this information is protected by the Federal Confidentiality of Alcohol and Drug Abuse Patient Records regulations: The Federal rules restrict any use of the information to criminally investigate or prosecute any alcohol or drug abuse patient.[facility] SystemIn the event this information is protected by the Federal Confidentiality of Alcohol and Drug Abuse Patient Records regulations: The Federal rules restrict any use of the information to criminally investigate or prosecute any alcohol or drug abuse patient.[facility] SystemIn the event this information is protected by the Federal Confidentiality of Alcohol and Drug Abuse Patient Records regulations: The Federal rules restrict any use of the information to criminally investigate or prosecute any alcohol or drug abuse patient.[facility] SystemIn the event this information is protected by the Federal Confidentiality of Alcohol and Drug Abuse Patient Records regulations: The Federal rules restrict any use of the information to criminally investigate or prosecute any alcohol or drug abuse patient.[facility] SystemIn the event this information is protected by the Federal Confidentiality of Alcohol and Drug Abuse Patient Records regulations: The Federal rules restrict any use of the information to criminally investigate or prosecute any alcohol or drug abuse patient.[facility] SystemIn the event this information is protected by the Federal Confidentiality of Alcohol and Drug Abuse Patient Records regulations: The Federal rules restrict any use of the information to criminally investigate or prosecute any alcohol or drug abuse patient.[facility] SystemIn the event this information is protected by the Federal Confidentiality of Alcohol and Drug Abuse Patient Records regulations: The Federal rules restrict any use of the information to criminally investigate or prosecute any alcohol or drug abuse patient.[facility] SystemIn the event this information is protected by the Federal Confidentiality of Alcohol and Drug Abuse Patient Records regulations: The Federal rules restrict any use of the information to criminally investigate or prosecute any alcohol or drug abuse patient.[facility] SystemIn the event this information is protected by the Federal Confidentiality of Alcohol and Drug Abuse Patient Records regulations: The Federal rules restrict any use of the information to criminally investigate or prosecute any alcohol or drug abuse patient.[facility] SystemIn the event this information is protected by the Federal Confidentiality of Alcohol and Drug Abuse Patient Records regulations: The Federal rules restrict any use of the information to criminally investigate or prosecute any alcohol or drug abuse patient.[facility] SystemIn the event this information is protected by the Federal Confidentiality of Alcohol and Drug Abuse Patient Records regulations: The Federal rules restrict any use of the information to criminally investigate or prosecute any alcohol or drug abuse patient.[facility] SystemIn the event this information is protected by the Federal Confidentiality of Alcohol and Drug Abuse Patient Records regulations: The Federal rules restrict any use of the information to criminally investigate or prosecute any alcohol or drug abuse patient.[facility] SystemIn the event this information is protected by the Federal Confidentiality of Alcohol and Drug Abuse Patient Records regulations: The Federal rules restrict any use of the information to criminally investigate or prosecute any alcohol or drug abuse patient.[facility] SystemIn the event this information is protected by the Federal Confidentiality of Alcohol and Drug Abuse Patient Records regulations: The Federal rules restrict any use of the information to criminally investigate or prosecute any alcohol or drug abuse patient.[facility] SystemIn the event this information is protected by the Federal Confidentiality of Alcohol and Drug Abuse Patient Records regulations: The Federal rules restrict any use of the information to criminally investigate or prosecute any alcohol or drug abuse patient.[facility] SystemIn the event this information is protected by the Federal Confidentiality of Alcohol and Drug Abuse Patient Records regulations: The Federal rules restrict any use of the information to criminally investigate or prosecute any alcohol or drug abuse patient.[facility] SystemIn the event this information is protected by the Federal Confidentiality of Alcohol and Drug Abuse Patient Records regulations: The Federal rules restrict any use of the information to criminally investigate or prosecute any alcohol or drug abuse patient.[facility] SystemIn the event this information is protected by the Federal Confidentiality of Alcohol and Drug Abuse Patient Records regulations: The Federal rules restrict any use of the information to criminally investigate or prosecute any alcohol or drug abuse patient.[facility] SystemIn the event this information is protected by the Federal Confidentiality of Alcohol and Drug Abuse Patient Records regulations: The Federal rules restrict any use of the information to criminally investigate or prosecute any alcohol or drug abuse patient.[facility] SystemIn the event this information is protected by the Federal Confidentiality of Alcohol and Drug Abuse Patient Records regulations: The Federal rules restrict any use of the information to criminally investigate or prosecute any alcohol or drug abuse patient.[facility] SystemIn the event this information is protected by the Federal Confidentiality of Alcohol and Drug Abuse Patient Records regulations: The Federal rules restrict any use of the information to criminally investigate or prosecute any alcohol or drug abuse patient.[facility] SystemIn the event this information is protected by the Federal Confidentiality of Alcohol and Drug Abuse Patient Records regulations: The Federal rules restrict any use of the information to criminally investigate or prosecute any alcohol or drug abuse patient.[facility] SystemIn the event this information is protected by the Federal Confidentiality of Alcohol and Drug Abuse Patient Records regulations: The Federal rules restrict any use of the information to criminally investigate or prosecute any alcohol or drug abuse patient.[facility] SystemIn the event this information is protected by the Federal Confidentiality of Alcohol and Drug Abuse Patient Records regulations: The Federal rules restrict any use of the information to criminally investigate or prosecute any alcohol or drug abuse patient.[facility] SystemIn the event this information is protected by the Federal Confidentiality of Alcohol and Drug Abuse Patient Records regulations: The Federal rules restrict any use of the information to criminally investigate or prosecute any alcohol or drug abuse patient.[facility] SystemIn the event this information is protected by the Federal Confidentiality of Alcohol and Drug Abuse Patient Records regulations: The Federal rules restrict any use of the information to criminally investigate or prosecute any alcohol or drug abuse patient.[facility] SystemIn the event this information is protected by the Federal Confidentiality of Alcohol and Drug Abuse Patient Records regulations: The Federal rules restrict any use of the information to criminally investigate or prosecute any alcohol or drug abuse patient.[facility] SystemIn the event this information is protected by the Federal Confidentiality of Alcohol and Drug Abuse Patient Records regulations: The Federal rules restrict any use of the information to criminally investigate or prosecute any alcohol or drug abuse patient.[facility] Reason for Visit (unrecogniz ed section and content) Reason Onset Date Comments Refill Request 11/07/2021 Reason Comments Parkinson's Disease Reason Comments Rash buttocks and groin x 3 weeks, 3 days getting worse Reason Comments Pain (Elbow Pain) Possible bursitis R elbow x today Reason Comments New Reason Onset Date Comments Refill Request 05/11/2022 Reason Comments Cough Reason Comments Follow Up Reason Comments Results Reason Comments Refill Request Reason Comments Patient Question Reason Onset Date Comments Refill Request 11/08/2022 Reason Comments Patient Update Reason Comments Refill Request Carbidopa-Levodopa Reason Comments Established Patient Follow-Up Reason Comments Follow Up Parkinsons Reason Onset Date Comments Population Health Navigation Outreach 11/12/2023 [place] [facility] Reason Comments Cough Congestion and runny nose x6 days Reason Comments Appointment Reason Comments Follow Up Reason Onset Date Comments Population Health Navigation Outreach 02/05/[address] [place] 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, - [place] [facility] Reason Comments Yearly Exam Medicare Wellness Exam Reason Comments Requsting Records Reason Comments Medication Question Reason Comments 6 month follow up Reason Comments Recheck Reason Comments Orders Reason Comments Edema Both legs X 3 days Leg Pain Thigh pain X 3 days Reason Comments US DVT order Reason Comments problem scheduling ultrasound Reason Comments Med Change Request Reason Onset Date Comments Refill Request 07/10/2024 Reason Onset Date Comments Results 09/18/2024 Reason Onset Date Comments Refill Request 11/02/2024 Reason Comments Consult Outside Pain Managem ent - Dr. Bowden Care Teams (unrecognized sec tion and content) Securities Clerk Relationship Specialty Start Date End Date Oniel Francis MD [address] [facility] [address] PCP - General Family Practice 05/16/15 No, Referral Referring 10/17/18 Securities Clerk Relationship Specialty Start Date End Date Oniel Francis MD [address] [facility] [place] [address] PCP - General Family Practice 05/16/15 No, Referral Referring 10/17/18 Securities Clerk Relationship Specialty Start Date End Date Oniel Farncis MD [address] [facility] [place] [address] PCP - General Family Practice 05/16/15 No, Referral Referring 10/17/18 Securities Clerk Relationship Specialty Start Date End Date Oniel Francis MD [address] [facility] [place] [address] PCP - General Family Practice 05/16/15 No, Referral Referring 10/17/18 Securities Clerk Relationship Specialty Start Date End Date Oniel Francis MD [address] [facility] [place] [address] PCP - General Family Practice 05/16/15 No, Referral Referring 10/17/18 Securities Clerk Relationship Specialty Start Date End Date Oniel Francis MD [address] [facility] [place] [address] PCP - General Family Medicine 05/16/15 No, Referral Referring 10/17/18 Securities Clerk Relationship Specialty Start Date End Date Oniel Francis MD [address] [facility] [place] [address] PCP - General Family Medicine 05/16/15 No, Referral Referring 10/17/18 Securities Clerk Relationship Specialty Start Date End Date Oniel Francis MD [address] [facility] [place] [address] PCP - General Family Medicine 05/16/15 No, Referral Referring 10/17/18 Securities Clerk Relationship Specialty Start Date End Date Oniel Francis MD [address] [place] [address] PCP - General Family Medicine 05/16/15 No, Referral Referring 10/17/18 Securities Clerk Relationship Specialty Start Date End Date Oniel Francis MD [address] [place] [address] PCP - General Family Medicine 05/16/15 No, Referral Referring 10/17/18 Securities Clerk Relationship Specialty Start Date End Date Oniel Francis MD [address] [place] [address] PCP - General Family Medicine 05/16/15 No, Referral Referring 10/17/18 Securities Clerk Relationship Specialty Start Date End Date Oniel Francis MD [address] [place] [address] PCP - General Family Medicine 05/16/15 No, Referral Referring 10/17/18 Securities Clerk Relationship Specialty Start Date End Date Oniel Francis MD [facility] [place] [address] PCP - General Family Medicine 05/16/15 No, Referral Referring 10/17/18 Securities Clerk Relationship Specialty Start Date End Date Oniel Francis MD [facility] [place] [address] PCP - General Family Medicine 05/16/15 No, Referral Referring 10/17/18 Securities Clerk Relationship Specialty [place] [address] [place] [address] [place] [address] PCP - General Family Medicine 05/16/15 No, Referral Referring 10/17/18 Securities Clerk Relationship Specialty Start Date End Date Oniel Francis MD [address] [place] [address] PCP - General Family Medicine 05/16/15 No, Referral Referring 10/17/18 Securities Clerk Relationship Specialty Start Date End Date Oniel Francis MD [address] [facility] [place] [address] PCP - General Family Medicine 05/16/15 No, Referral Referring 10/17/18 Securities Clerk Relationship Specialty Start Date End Date Oniel Francis MD [address] [facility] [place] [address] PCP - General Family Medicine 05/16/15 No, Referral Referring 10/17/18 Securities Clerk Relationship Specialty Start Date End Date Oniel Francis MD [address] [facility] [place] [address] PCP - General Family Medicine 05/16/15 No, Referral Referring 10/17/18 Securities Clerk Relationship Specialty Start Date End Date Oniel Francis MD [address] [facility] [place] [address] PCP - General Family Medicine 05/16/15 No, Referral Referring 10/17/18 Securities Clerk Relationship Specialty Start Date End Date Oniel Francis MD [address] [facility] [place] [address] PCP - General Family Medicine 05/16/15 No, Referral Referring 10/17/18 Securities Clerk Relationship Specialty Start Date End Date Oniel Francis MD [address] [facility] [place] [address] PCP - General Family Medicine 05/16/15 No, Referral Referring 10/17/18 Securities Clerk Relationship Specialty Start Date End Date Oniel Francis MD [address] [facility] [place] [address] PCP - General Family Medicine 05/16/15 No, Referral Referring 10/17/18 Securities Clerk Relationship Specialty Start Date End Date Oniel Francis MD [address] [facility] [place] [address] PCP - General Family Medicine 05/16/15 No, Referral Referring 10/17/18 Securities Clerk Relationship Specialty Start Date End Date Oniel Francis MD [address] [facility] [place] [address] PCP - General Family Medicine 05/16/15 No, Referral Referring 10/17/18 Securities Clerk Relationship Specialty Start Date End Date Oniel Francis MD [address] [facility] [place] [address] PCP - General Family Medicine 05/16/15 No, Referral Referring 10/17/18 Securities Clerk Relationship Specialty Start Date End Date Oniel Francis MD [address] [facility] [place] [address] PCP - General Family Medicine 05/16/15 No, Referral Referring 10/17/18 Securities Clerk Relationship Specialty Start Date End Date Oniel Francis MD [address] [facility] [place] [address] PCP - General Family Medicine 05/16/15 No, Referral Referring 10/17/18 Securities Clerk Relationship Specialty Start Date End Date Oniel Francis MD [address] [facility] [place] [address] PCP - General Family Medicine 05/16/15 No, Referral Referring 10/17/18 Securities Clerk Relationship Specialty Start Date End Date Oniel Francis MD [address] [facility] [place] [address] PCP - General Family Medicine 05/16/15 No, Referral Referring 10/17/18 Securities Clerk Relationship Specialty Start Date End Date Oniel Francis MD [address] [place] [address] PCP - General Family Medicine 05/16/15 No, Referral Referring 10/17/18 Securities Clerk Relationship Specialty Start Date End Date Oniel Francis MD [address] [place] [address] PCP - General Family Medicine 05/16/15 No, Referral Referring 10/17/18 Securities Clerk Relationship Specialty Start Date End Date Oniel Francis MD [address] [place] [address] PCP - General Family Medicine 05/16/15 No, Referral Referring 10/17/18 Securities Clerk Relationship Specialty Start Date End Date Oniel Francis MD [address] [place] [address] PCP - General Family Medicine 05/16/15 No, Referral Referring 10/17/18 Zina Duran APRN.[employer] [address] [place] [address] Supervisor Painting Department Family Medicine 07/11/24 Ella Valdovinos PA-C [address] [facility] [place] [address] Supervisor Painting Department Family Medicine 07/11/24 Securities Clerk Relationship Specialty Start Date End Date Oniel Francis MD [address] [place] [address] PCP - General Family Medicine 05/16/15 No, Referral Referring 10/17/18 Zina Duran APRN.[employer] [address] [place] [address] Supervisor Painting Department Family Medicine 07/11/24 Ella Valdovinos PA-C [address] [place] [address] Supervisor Painting Department Family Medicine 07/11/24 Securities Clerk Relationship Specialty Start Date End Date Oniel Francis MD [address] [place] [address] PCP - General Family Medicine 05/16/15 No, Referral Referring 10/17/18 Zina Duran APRN.[employer] [address] [place] [address] Supervisor Painting Department Family Medicine 07/11/24 Ella Valdovinos PA-C [address] [place] [address] Supervisor Painting Department Family [facility] 07/11/24 Securities Clerk Relationship Specialty Start Date End Date Oniel Francis MD [address] [place] [address] PCP - General Family Medicine 05/16/15 No, Referral Referring 10/17/18 Zina Duran APRN.[employer] [facility] [place] [address] Supervisor Painting Department Family Medicine 07/11/24 Ella Valdovinos PA-C [address] [place] [address] Supervisor Painting Department Family [facility] 07/11/24 Securities Clerk Relationship Specialty Start Date End Date Oniel Francis MD [address] [place] [address] PCP - General Family Medicine 05/16/15 No, Referral Referring 10/17/18 Zina Duran APRN.[employer] [address] [place] [address] Supervisor Painting Department Family [facility] 07/11/24 Ella Valdovinos PA-C [address] [place] [address] [facility] Securities Clerk Relationship Specialty Start Date End Date Oniel Francis MD [address] [place] [address] PCP - General Family Medicine 05/16/15 No, Referral Referring 10/17/18 Zina Duran APRN.[employer] [address] [place] [address] Supervisor Painting Department Family [facility] 07/11/24 Ella Valdovinos PA-C [address] [place] [address] [facility] 07/11/24 Securities Clerk Relationship Specialty Start Date End Date Oniel Francis MD [address] [place] [address] PCP - General Family Medicine 05/16/15 No, Referral Referring 10/17/18 Zina Duran APRN.[employer] [address] [place], [place] [id number] [facility] 07/11/24 Ella Valdovinos PA-C [address] [place], [place] [id number] [facility] 07/11/24 Securities Clerk Relationship Specialty Start Date End Date Oniel Francis MD [address] [place] [address] PCP - General Family Medicine 11/09/24 No, Referral Referring 10/17/18 Zina Duran APRN.[employer] [address] [place] [address] [facility] 07/11/24 Ella Valdovinos PA-C [address] [place], [place] [id number] [facility] 07/11/24 Team Status: Active Member Role Status Dates Dr. Oniel Francis MD Family Provider Active Dr. Oniel Francis MD Primary Care Provider Active Team Status: Inactive Member Role Status Dates Dr. Oniel Francis MD Primary Care Provider Active Start: January 18, 2025 End: January 18, 2025 Dr. Aramis Larson MD Attending Provider Active S tart: January 18, 2025 End: January 18, 2025 Goals (unrecognized section and content) Goals may be documented in a n alternate section FOR RECORDS PERTAINING TO PATIENTS WHO ARE OR HAVE BEEN ENROLLED IN A CHEMICAL DEPENDENCY/SUBSTANCEABUSE PROGRAM, SOME INFORMATION MAY BE OMITTED. This clinical summary was aggregated from multiple sources. Caution should be exercised in using it in the provision of clinical care. This summary normalizes information from multiple sources, and as a consequence, information in this document may materially change the coding, format and clinical context of patient data. In addition, data may be omitted in some cases. CLINICAL DECISIONS SHOULD BE BASED ON THE PRIMARY CLINICAL RECORDS. [employer] provides no warranty or guarantee of the accuracy or completeness of information in this document.
[2025-01-19 04:08] LABS: Absolute Lymphocyte Count 3.03 X10^3/uL (0.83-4.51); Absolute Neutrophil Count 2.3 X10^3/uL (2.0-7.7); Basophil# 0.03 X10^3/uL; Basophil% 0.5 % (0-1); Eosinophil# 0.27 X10^3/uL; Eosinophils% 4.3 % (0-5); Hematocrit 40.8 % (40-54); Hemoglobin 14.2 g/dL (13.0-16.5); Lymphocyte # 3.03 X10^3/ul (0.83-4.51); Lymphocyte % 48.3 % (19-41); Mean Corp Hgb Conc 34.8 g/dL (32-36); Mean Corpuscular Hgb 32.9 pg (27.0-32.0); Mean Corpuscular Volume 94.7 fL (80-94); Mean Platelet Vol. 10.4 fl (6.2-12.0); Monocyte# 0.63 X10^3/uL; NRBC Flagged by Analyzer 0 % (0-5); Neutrophil % 36.7 % (47-70); Platelet Count 135 K/mm3 (150-450); RBC Distribution Width CV 13.2 % (11.6-14.6); RBC Distribution Width SD 46.3 fl (35.1-43.9); Red Blood Count 4.31 M/mm3 (4.6-6.2); White Blood Count 6.3 K/mm3 (4.4-11.0)
[2025-01-19 04:17] LABS: Prothrombin Time (Protime)PT. 13.4 SECONDS (11.7-14.9)
[2025-01-19 04:18] LABS: Partial Thromboplast Time 28.5 Seconds (24.1-36.2)
[2025-01-19 04:25] LABS: Anion Gap 12 (5-15); BUN 25 mg/dL (4-19); Calcium,Total 9.7 mg/dL (7.6-11.0); Carbon Dioxide 23.1 mmol/L (21.0-32.0); Chloride 105 mmol/L (98-108); Creatinine, Serum 0.91 mg/dL (0.70-1.20); EST Glomerular Filtration Rate 84 (>60); Estimated Creatinine Clearance 68.19 ml/min (50-250); Glucose 145 mg/dL (70-99); Potassium 4.1 mmol/L (3.3-5.1); Sodium Level 140 mmol/L (133-145)
[2025-01-19] MEDS: Aspirin 325 MG Tablet PO (04:31)
--- NOTE | 2025-01-19 04:45 | RAD_ITS ---
PROCEDURE: CHEST 1 VIEW 01/19/2025 REASON FOR EXAM: NEURO DEFICIT, ACUTE, STROKE SUSPECTED TECHNIQUE: Frontal view of the chest. COMPARISON: None. FINDINGS: Unremarkable median sternotomy wires. Mild bilateral basilar atelectatic pulmonary changes. There is no demonstrated pleural abnormality. Enlarged cardiac silhouette. Normal mediastinum and julee. Normal visualized pulmonary arteries. Atheromatous plaques of the visualized aortic arch and descending thoracic aorta. Diffuse spondylosis of the visualized thoracic spine. Normal visualized ribs, clavicles. Degenerative joint disease. There is no demonstrated abnormality of the visualized soft tissue structures of the upper abdomen. RAD/Chest 1 View IMPRESSION: Mild bilateral basilar atelectatic pulmonary changes. Reading [facility]
[2025-01-19 04:46] LABS: Bacteria 0 SEEN /hpf (None Seen); Mucous, Urine 0 SEEN /hpf (<or=2+); Red Blood Cells-Urine 0 SEEN /hpf (0-5); Squamous Epithelial Cells - UA 0 SEEN /hpf (0-5); White Blood Cells 0 SEEN /hpf (0-5)
[2025-01-19 04:48] LABS: Color, Urine Yellow (Yellow); Glucose, Dipstick Normal (Normal); Ketone-Dipstick Negative (Negative); Leukocyte Esterase-Dipstick Negative /ul (Negative); Nitrite-Dipstick Negative (Negative); Occult Blood-Urine Negative /ul (Negative); Protein-Dipstick Negative (Negative); Specific Gravity, Urine 1.015 (1.002-1.030); Urine Bilirubin Dipstick Negative (Negative); Urine Clarity Clear (Clear); Urine Urobilinogen Normal (Normal)
--- NOTE | 2025-01-19 05:47 | EX.ED.DYSGE1 ---
HPI History of Present Illness Chief Complaint: Neuro S/Sx Informant: patient and spouse/S.O. Narrative Narrative: Patient is an 84-year-old male with past medical history of Parkinson's disease hypertension hyperlipidemia and coronary artery disease. Patient and state that he awoke this morning to use the restroom but was so weak that he could not stand and she noticed that during this time he was also slurring his speech. She states that he went to bed approximate 11 PM and that was his last known well. With concern for an acute stroke he was brought in for evaluation. [facility] Medical History (Updated 01/19/25 @ 08:[address] Tate Mcdonough, DO) Parkinson disease Family history of malignant neoplasm of colon in mother Personal history of colonic polyps Essential tremor Aortic prosthetic valve regurgitation Deep vein thrombophlebitis of right leg Obesity Left carotid artery stenosis Prosthetic aortic valve stenosis Central sleep apnea Nonrheumatic aortic (valve) insufficiency Bicuspid aortic valve Vitamin D deficiency History of rheumatic fever Hyperlipidemia History of carotid artery disease Atherosclerosis of coronary artery of [place] heart without angina pectoris Essential hypertension Contusion of finger without damage to nail Laceration of finger of left hand without foreign body without damage to nail Hemorrhoids Shortness of breath Neck pain on left side Tingling and numbness left fingers Home Medications ?Medication ?Instructions ?Recorded ?Last Taken ?Type rhpayeqe-qcx-omzve acid 0.4 1 ea PO DAILY 05/28/16 05/28/16 History mg-lycopene 300 mcg-lutein 250 mcg tablet acetaminophen 500 mg tablet 1,000 mg PO TID PRN fever or pain 05/29/19 Unknown History cyanocobalamin (vitamin B-12) 500 1,000 mcg PO DAILY 05/29/19 Unknown History mcg sublingual tablet aspirin 81 mg chewable tablet 81 mg PO DAILY 12/22/19 Unknown History carbidopa 25 mg-levodopa 100 mg 2 tab PO TID 02/03/21 Unknown History tablet cholecalciferol (vitamin D3) 25 2,000 unit PO BID 02/03/21 Unknown History mcg (1,000 unit) tablet fluticasone propionate 50 1 spray intranasal DAILY PRN nasal 02/03/21 Unknown History mcg/actuation nasal congestion spray,suspension (Allergy Relief (fluticasone)) levothyroxine 25 mcg tablet 25 mcg PO DAILY 02/03/21 Unknown History metoprolol tartrate 50 mg tablet See Rx Instructions .Route 12/17/22 Unknown Rx .COMPLEX #180 tabs nitroglycerin 0.4 mg sublingual See Rx Instructions .Route 02/25/23 Unknown Rx tablet .COMPLEX #25 tabs atorvastatin 80 mg tablet 80 mg PO QHS 01/19/25 Unknown History propranolol 80 mg capsule,24 80 mg PO Q24H 01/19/25 Unknown History hr,extended release tamsulosin 0.4 mg capsule 0.8 mg PO QHS 01/19/25 Unknown History trazodone 50 mg tablet 50 mg PO QHS 01/19/25 Unknown History Allergy/AdvReac Type Severity Reaction Status Date / Time iodine Allergy Other Verified 01/19/25 03:56 Penicillins Allergy Hives Verified 01/19/25 03:56 Family History Mother Heart disease Colon cancer Father Diabetes Sister Heart disease Brother Heart disease Surgical History (Updated 01/19/25 @ 04:14 by Alexsandra Salas) History of single vessel coronary artery bypass History of cataract extraction History of colonoscopy (~2014) History of left heart catheterization (08/26/18) H/O coronary artery bypass surgery (10/2018) H/O aortic valve replacement (10/2018) History of left-sided carotid endarterectomy (2008) History of hernia repair History of cholecystectomy History of tonsillectomy Social History Smoking Status: Never smoker alcohol intake: current alcohol intake frequency: a few times a month Alcohol type: beer and wine substance use type: does not use caffeine: No ROS ROS ED Constitutional Constitutional ED: Denies chills or fever(s) Eyes Eyes: Denies blurry vision or change in vision ENT ENT ED: Denies sore throat Cardiovascular Cardiovascular: Denies chest pain, palpitations or racing heartbeat Respiratory/Chest Respiratory/Chest: Denies cough or dyspnea Gastrointestinal Gastrointestinal: Denies abdominal pain, diarrhea, nausea or vomiting Genitourinary Genitourinary ED: Denies dysuria Musculoskeletal Musculoskeletal: Denies myalgias Integumentary Denies rash Neurologic Neurologic: Reports weakness; Denies headache(s) Hematologic/Lymphatic Hematologic/Lymphatic: Denies easy bleeding or easy bruising EXAM Physical Exam Const Vital Signs: 01/19/25 03:53 01/19/25 03:57 01/19/25 04:00 Temperature 98.0 F Temperature Source Oral Pulse Rate 69 67 69 Respiratory Rate 18 18 18 Blood Pressure 152/73 H 152/73 H 137/70 H Blood Pressure Mean 99 99 92 Pulse Ox 93 93 92 Oxygen Delivery Method Room Air Room Air 01/19/25 04:10 01/19/25 04:30 01/19/25 05:00 Temperature Temperature Source Pulse Rate 68 66 Respiratory Rate 18 18 Blood Pressure 154/84 H 135/83 H Blood Pressure Mean 107 100 Pulse Ox 93 92 92 Oxygen Delivery Method Room Air Room Air Room Air 01/19/25 05:30 01/19/25 06:00 Temperature Temperature Source Pulse Rate 65 63 Respiratory Rate 18 18 Blood Pressure 157/92 H 141/75 H Blood Pressure Mean 113 97 Pulse Ox 93 92 Oxygen Delivery Method Room Air Room Air Positive well nourished and well developed General Appearance ED: well developed; Negative for pallor HEENT HEENT Narrative: Normocephalic atraumatic Eyes PERRL and EOMs intact bilaterally Neck supple Neck Narrative: No nuchal rigidity or meningeal signs Resp normal respiratory effort and clear to auscultation bilaterally Cardio regular rate and regular rhythm Rate: other Other Details: Radial and carotid pulses are equal and symmetric GI normal to inspection, nondistended, normoactive bowel sounds, non-tender, non-distended and no masses GI Narrative: No voluntary guarding or rigidity or pulsatile mass Auscultation: normoactive bowel sounds Palpation: soft Extremity normal to inspection Extremity Narrative: No asymmetric edema no pitting edema negative Homans' sign bilaterally Neuro oriented x3, CN's II-XII intact bilaterally and no sensory deficits noted Neuro Narrative: GCS of 15 Cranial nerves II through XII are grossly intact without focal neurologic deficit No pronator drift no dysmetria no truncal ataxia NIH stroke scale score of 0 Sensorium / Orientation: alert Motor Exam: general weakness Psych mental status grossly normal Skin no rashes or lesions noted and no wounds General Skin Exam: Negative for jaundice or pallor MDM MDM MDM Narrative Medical decision making narrative: Patient arrived to the ER with stable vitals and by the time he had arrived from home had improvement of his symptoms. As the patient's last known well was 11 PM and is now 4 AM he is outside any type of stroke window and therefore there is no need for TNK. Moreover his symptoms are spontaneously improving. However as patient could have an LVO and further intervention be needed a stroke alert was activated upon his arrival and he received a CT and CTA of the head and neck. Imaging studies revealed no acute finding. The case was discussed with [facility] neurologist Dr. Rosales who agrees that patient is outside the window for TNK he has had spontaneous resolution/improvement of his symptoms and therefore there is no need for intervention at this time. He recommends checking for potential metabolic causes of his weakness and having an MRI performed to confirm no acute stroke. Patient and family were instructed of this plan and they are agreeable to the care at this time. The patient's labs show no leukocytosis signs of acute kidney injury or clinically significant electrolyte abnormality to suggest this as the cause of his symptoms. Urine sample shows no sign of infection and chest x-ray reveals no acute lung pathology. [facility] recommends patient receive a full-strength aspirin based on his symptoms that appear most consistent with potential TIA. Therefore in order to complete the stroke workup he will be admitted to the hospital for continued observation and care History & Record Review Discussion w/independent historian: Patient and Significant other Lab Data Attestation: I reviewed the patient's lab results. Labs: Laboratory Results - last 24 hr 01/19/25 01/19/25 04:00 04:40 WBC 6.3 RBC 4.31 L Hgb 14.2 Hct 40.8 MCV 94.7 H MCH 32.9 H MCHC 34.8 RDW Std Deviation 46.3 H RDW Coeff of [place] 13.2 Plt Count 135 L MPV 10.4 Immature Gran % (Auto) 0.200 Neut % (Auto) 36.7 L Lymph % (Auto) 48.3 H [place] % (Auto) 10.0 Eos % (Auto) 4.3 Baso % (Auto) 0.5 Absolute Neuts (auto) 2.3 Absolute Lymphs (auto) 3.03 Nucleated RBC % 0 PT 13.4 INR 1.0 APTT 28.5 Sodium 140 Potassium 4.1 Chloride 105 Carbon Dioxide 23.1 Anion Gap 12 BUN 25 H Creatinine 0.91 Estim Creat Clear Calc 68.19 Est GFR (MDRD) Non-Af 84 BUN/Creatinine Ratio 27.0 H Glucose 145 H Calcium 9.7 Urine Color Yellow Urine Clarity Clear Urine pH 6.0 Ur Specific [place] 1.015 Urine Protein Negative Urine Glucose (UA) Normal Urine Ketones Negative Urine Occult Blood Negative Urine Nitrite Negative Urine Bilirubin Negative Urine Urobilinogen Normal Ur Leukocyte Esterase Negative Urine RBC 0 SEEN Urine WBC 0 SEEN Ur Squamous Epith Cells 0 SEEN Urine Bacteria 0 SEEN Urine Mucus 0 SEEN Radiography Diagnostic Testing: Clinical Impression(s) from Imaging Studies Brain CT 01/19/25 04:00 IMPRESSION: No CT evidence for acute brain abnormality. Reading Location: [place] [address] Head/Neck CTA 01/19/25 04:03 IMPRESSION: Atherosclerosis without high-grade stenosis. Reading [id number] Chest X-Ray 01/19/25 04:45 IMPRESSION: Mild bilateral basilar atelectatic pulmonary changes. Reading Location: [place] [address] Chest x-ray as interpreted by the emergency medicine physician reveals bibasilar atelectasis without acute infiltrate or pneumothorax Management Discussion w/another healthcare provider: Hospitalist and [employer] Tender Discharge Plan Dx/Rx/DC Orders Clinical Impression: Stroke-like symptoms, Essential hypertension, Hyperlipidemia, Parkinson's disease Disposition Disposition: Acute Care Hospital [facility] Discharge Date/Time: 01/19/25 07:02
--- NOTE | 2025-01-19 05:58 | HP.PCM_ITS ---
HPI - General General Date of Admission: 01/19/25 Date of Service: 01/19/25 Chief Complaint: Leg weakness and slurring of speech HPI Narrative SEBASTIÁN COOLEY, is a 84 M who presents to the emergency room with chief complaint of lower extremity weakness and slurring of speech. Onset of symptoms began approximately 11:00 earlier this evening when he awoke to use the restroom and found himself to be weak in both lower extremities. His spouse noticed he was slurring his speech for approximately 15 minutes and then that subsequently resolved. Patient has significant past medical history of carotid artery disease, coronary artery bypass surgery in 2019, status post aortic valve replacement, and hypertension. Patient arrived in the emergency room by personal vehicle with the spouse several hours later as symptoms seem to have resolved. 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 Laboratory studies were unremarkable. And urinalysis was negative. There is a fact that all neurologic symptoms have resolved at this point patient will be admitted for observation and an MRI of the head will be ordered to rule out active neurologic process. Patient currently denies chest pain, shortness of breath, fever or chills and/or nausea vomiting or diarrhea. [facility] Medical History (Updated 01/19/25 @ 05:[address] Tate Mcdonough, ) Parkinson disease Family history of malignant neoplasm of colon in mother Personal history of colonic polyps Essential tremor Aortic prosthetic valve regurgitation Deep vein thrombophlebitis of right leg Obesity Left carotid artery stenosis Prosthetic aortic valve stenosis Central sleep apnea Nonrheumatic aortic (valve) insufficiency Bicuspid aortic valve Vitamin D deficiency History of rheumatic fever Hyperlipidemia History of carotid artery disease Atherosclerosis of coronary artery of [place] heart without angina pectoris Essential hypertension Contusion of finger without damage to nail Laceration of finger of left hand without foreign body without damage to nail Hemorrhoids Shortness of breath Neck pain on left side Tingling and numbness left fingers Home Medications ?Medication ?Instructions ?Recorded ?Last Taken ?Type esmrroci-xrv-tkgqt acid 0.4 1 ea PO DAILY 05/28/16 History mg-lycopene 300 mcg-lutein 250 mcg tablet acetaminophen 500 mg tablet 1,000 mg PO TID PRN fever or pain 05/29/19 Unknown History cyanocobalamin (vitamin B-12) 500 1,000 mcg PO DAILY 1 Unknown History mcg sublingual tablet aspirin 81 mg chewable tablet 81 mg PO DAILY 12/22/19 Unknown History carbidopa 25 mg-levodopa 100 mg 2 tab PO TID 02/03/21 Unknown History tablet cholecalciferol (vitamin D3) 25 2,000 unit PO BID 09/25 Unknown History mcg (1,000 unit) tablet fluticasone propionate 50 1 spray intranasal DAILY PRN nasal 02/03/21 Unknown History mcg/actuation nasal congestion spray,suspension (Allergy Relief (fluticasone)) levothyroxine 25 mcg tablet 25 mcg PO DAILY 02/03/21 U nknown History metoprolol tartrate 50 mg tablet See Rx Instructions . Route 12/17/22 Unknown Rx .COMPLEX #180 tabs nitroglycerin 0.4 mg sublingual See Rx Instructions .R oute 02/25/23 Unknown Rx tablet .COMPLEX #25 tabs atorvastatin 80 mg tablet 80 mg PO QHS 01/19/25 Unknow n History propranolol 80 mg capsule,24 80 mg PO Q24H 01/19/25 Un known History hr,extended release tamsulosin 0.4 mg capsule 0.8 mg PO QHS 01/19/25 Unkno wn History trazodone 50 mg tablet 50 mg PO QHS 01/19/25 Unknow n History Allergy/AdvReac Type Severity Reaction Status Date / Time iodine Allergy Other Verified 01/19/25 03:56 Penicillins Allergy Hives Verified 01/19/25 03:56 Family History Mother Heart disease Colon cancer Father Diabetes Sister Heart disease Brother Heart disease Surgical History (Updated 01/19/25 @ 04:14 by Alexsandra Salas) History of single vessel coronary artery bypass History of cataract extraction History of colonoscopy (~2014) History of left heart catheterization (08/26/18) H/O coronary artery bypass surgery (10/2018) H/O aortic valve replacement (10/2018) History of left-sided carotid endarterectomy (2008) History of hernia repair History of cholecystectomy History of tonsillectomy Social History Smoking Status: Never smoker alcohol intake: current alcohol intake frequency: a few times a month Alcohol type: beer and wine substance use type: does not use caffeine: No ROS Constitutional Constitutional: Denies chills or fever(s) Eyes Eyes: Denies blurry vision ENT HEENT: Denies abnormal hearing Cardiovascular Cardiovascular: Denies chest pain Respiratory/Chest Respiratory/Chest: Denies shortness of breath at rest Gastrointestinal Gastrointestinal: Denies abdominal pain Genitourinary Genitourinary: Denies dysuria Musculoskeletal Musculoskeletal: Denies back pain Integumentary Integumentary: Denies dry skin Neurologic Neurologic: Reports abnormal speech and focal weakness Psychiatric Psychiatric: Denies anxiety Endocrine Endocrinology: Denies change in body appearance Vital Signs Vital Signs Vital Signs: 01/19/25 03:53 01/19/25 03:57 01/19/25 04:00 Temperature 98.0 F Temperature Source Oral Pulse Rate 69 67 69 Respiratory Rate 18 18 18 Blood Pressure 152/73 H 152/73 H 137/70 H Blood Pressure Mean 99 99 92 Pulse Ox 93 93 92 Oxygen Delivery Method Room Air Room Air 01/19/25 04:10 01/19/25 04:30 01/19/25 05:00 Temperature Temperature Source Pulse Rate 68 66 Respiratory Rate 18 18 Blood Pressure 154/84 H 135/83 H Blood Pressure Mean 107 100 Pulse Ox 93 92 92 Oxygen Delivery Method Room Air Room Air Room Air Weight Weight: 213 lb 6.519 oz Body Mass Index (BMI) 33.4 Physical Exam Const alert, oriented x3 and no apparent distress General Appearance: cooperative and well developed HEENT normocephalic and head/scalp atraumatic Neck no lymphadenopathy Lymph Lymphatic: no lymphadenopathy noted Resp normal respiratory effort, normal air movement and clear to auscultation bilaterally Cardio regular rate, regular rhythm, S1 normal heart sound and S2 normal heart sound GI normal to inspection, nondistended, normoactive bowel sounds Extremity normal capillary refill General Extremity: no tenderness to palpation of joints or extremities Skin General Skin Exam: no breakdown Neuro CN's II-XII intact bilaterally, no focal motor deficits and no sensory deficits noted Speech: speech normal Motor Exam: strength 5/5 throughout Psych thought process normal, cooperative and affect normal Results Lab / Micro Data 01/19/25 04:00 01/19/25 04:00 Labs: Laboratory Results - last 24 hr 01/19/25 04:00: WBC 6.3, RBC 4.31 L, Hgb 14.2, Hct 40.8, MCV 94.7 H, MCH 32.9 H, MCHC 34.8, RDW Std Deviation 46.3 H, RDW Coeff of [place] 13.2, Plt Count 135 L, MPV 10.4, Immature Gran % (Auto) 0.200, Neut % (Auto) 36.7 L, Lymph % (Auto) 48.3 H, [place] % (Auto) 10.0, Eos % (Auto) 4.3, Baso % (Auto) 0.5, Absolute Neuts (auto) 2.3, Absolute Lymphs (auto) 3.03, Nucleated RBC % 0, PT 13.4, INR 1.0, APTT 28.5, Sodium 140, Potassium 4.1, Chloride 105, Carbon Dioxide 23.1, Anion Gap 12, BUN 25 H, Creatinine 0.91, Estim Creat Clear Calc 68.19, Est GFR (MDRD) Non- Af 84, BUN/Creatinine Ratio 27.0 H, Glucose 145 H, Calcium 9.7 01/19/25 04:40: Urine Color Yellow, Urine Clarity Clear, Urine pH 6.0, Ur Specific [place] 1.015, Urine Protein Negative, Urine Glucose (UA) Normal, Urine Ketones Negative, Urine Occult Blood Negative, Urine Nitrite Negative, Urine Bilirubin Negative, Urine Urobilinogen Normal, Ur Leukocyte Esterase Negative, Urine RBC 0 SEEN, Urine WBC 0 SEEN, Ur Squamous Epith Cells 0 SEEN, Urine Bacteria 0 SEEN, Urine Mucus 0 SEEN Imaging Radiology Impression Brain CT 01/19/25 04:00 IMPRESSION: No CT evidence for acute brain abnormality. [facility] Head/Neck CTA 01/19/25 04:03 IMPRESSION: Atherosclerosis without high-grade stenosis. Reading Location: [place] [address] Chest X-Ray 01/19/25 04:45 IMPRESSION: Mild bilateral basilar atelectatic pulmonary changes. Reading Location: [place] [address] Assessment & Plan Assessment/Plan (1) H/O coronary artery bypass surgery: (2) H/O aortic valve replacement: (3) Essential hypertension: (4) Hyperlipidemia: (5) Stroke-like symptoms: PLAN: Plan 1 strokelike symptoms that have resolved consistent with transient ischemic attack?admit patient to progressive care unit for observation, initiate neurologic assessments every 4 hours, continue aspirin therapy and order MRI of the brain. CT angiogram was performed and patient does have some level of disease that we will need to be followed by vascular surgery post discharge. 2. Hyperlipidemia?continue statin medication 3. Hypertension?continue routine home medications will add as needed antihypertensive therapy per protocol 4. DVT prophylaxis?low molecular weight heparin Charges/Coding Visit Charges OBSV E&M: 35672 Observ/hosp same date L2
--- OUTSIDE RECORDS SUMMARY | 2025-01-19 06:32 | XMS RPT_ITS | CCD ---
Author Organization [facility] Providers Care Secondary Art Teacher Name Role Phone KIZZY BAILEY Attending Unavailable [...] Oniel Francis MD Primary Care Provider [phone] ONIEL FRANCIS MD Primary Care Physician Merritt [...] Referring Unavailable Zina Duran Attending Unavailable Bree MANAGER MANAGEMENTZina PATEL Unavailable Elal Valdovinos PA-C Unavailable [phone] Oniel Francis MD Primary Care Provider TITO, [...] Unavailable TITO, ONIEL A Primary Care Unavailable ITTO, ONIEL A Attending Unavailable TITO, ONIEL A [...] Tito , Dr. Engle Primary Care Provider [phone] Dr. Aramis Larson MD Attending Provider Allergies Allergy Classification Reported Allergen(s) Allergy Type Date of Onset Reaction(s) Facility Iodine (and Iodine containting drugs) (2 sources) Iodine Drug Allergy 3 Other: See Comments [facility] Penicillins (antibiotic) (2 sources) Penicillin G Drug Allergy 3 [facility] (20 sources) Iodine; Translations: [IODINE] Drug Allergy 3 Other: See Comments [facility] Repository (20 sources) Penicillin; Translations: [PENICILLIN G] Drug Allergy 3 [facility] Repository (3 sources) Contrast media; Translations: [iodinated radiocontrast agents] Allergy to substance Hypotension [facility] (3 sources) Penicillin; Translations: [penicillin] Drug Allergy Rash [facility] (1 source) Penicillins Drug allergy (disorder) 1 [facility] Repository (1 source) Penicillins Allergy to substance 1 [facility] Medications Current Medications Medication Drug Class(es) Dates Sig (Normalized) Sig (Original) acetaminophen 500 mg oral capsule (20 sources) Start: 02-19-2024 End: 03-04-2024 take 1 capsule by mouth once daily acetaminophen 500 mg oral capsule Dose : 1,000 mg = 2 cap(s), Oral, TID, PRN for pain, not to exceed 3000 mg/day, # 100 cap(s), 0 Refill(s), 03/04/24 8:41:00 AM EDT, Pharmacy: [facility]/pharmacy #[id number], 170.2, cm, 02/18/24 17:02:00 EDT, [...] qDay, # 30 tab(s), 0 Refill(s), Pharmacy: [facility]/pharmacy #[id number], 170.2, cm, 02/18/24 17:02:00 EDT, [...] (FLONASE) 50 mcg/actuation nasal spray Use 1 Rigby in each nostril once daily. Rinse mouth after use. 1 Bottle 5 06/20/2018 Active Comment on above: Use 1 Rigby in each nostril once daily. Rinse mouth [...] off for 3 days. Repeat as needed. Gkdmtkuo-Mfk-Mg-Lycop en-Lutein 1 EACH tablet (1 source) Start: 05-28-20 Vhmylrxi-Vvx-Na-Lyco pen-Lutein 1 EACH tablet Active 1 NMA [...] the tongue every 5 minutes as needed. Davison-3 Fatty Acids-Fish Oil 1 EACH capsule (1 source) Start: 05-28-20 16 Davison-3 Fatty Acids-Fish Oil 1 EACH capsule Active [...] 0 Refill(s), 02/26/24 8:43:00 AM EDT, Pharmacy: [facility]/pharmacy #[id number], Status post total left knee replacement, 170.2, cm, 02/18/24 17:02:00 EDT, Height, 88, kg, 02/18/24 17:02:00 EDT, Dosing Weight Start Date: 02/19/24 Stop Date: 02/26/24 Status: Ordered perflutren lipid microspheres 1.3 mL in NaCl (PF) 0.9% 10 mL injection (DEFINWag Moblie) (20 sources) Start: 06-24-20 End: 09-22-19 perflutren lipid microspheres 1.3 mL in NaCl (PF) 0.9% 10 mL injection (DEFINWag Moblie) 24 hr propranolol hydrochloride 80 mg extended [...] DVT, # 13 tab(s), 0 Refill(s), Pharmacy: [facility]/pharmacy #[id number], 170.2, cm, 02/18/24 17:02:00 EDT, [...] tongue once daily. Take 2 tablets by [facility] once daily. Vitamin B12 500 mcg oral [...] Coronary atherosclerosis; Translations: [Atherosclerotic heart disease of [place] coronary artery without angina pectoris] Onset: 08-24-2015 [...] (20 sources) Patient encounter status; Translations: [Other rib puller (current) drug therapy] Onset: 7 Resolved: 0 04-12-2020 Episodic Other circulatory disease (20 sources) H/O: heart disorder; Translations: [Personal history of other diseases of the circulatory system] Onset: 3 06-19-2017 Episodic Other connective tissue disease (20 sources) Synovial cyst of right popliteal space; Translations: [Synovial cyst of popliteal space [[place]], right knee] Onset: 7 01-28-2017 Episodic Other [...] Results Test Name Value Interpretation Reference Range [facility] 09-18-2024 [facility] Telephone ([facility]) SONIYA COOLEY ([id number]) 1940 M Date Time Provider Department 09/18/24 ABBY PATE [facility] During your visit today, we recorded the following information about you: Moni Encarnacion MA 09/18/2024 2:07 PM Signed Abby Pate MD P [facility] Pool Can you let patient know his health advocate was OK with me switching metoprolol to propranolol, so I sent in for 80 mg propranolol once a day - he can just change one day to the next from metoprolol to this new propanolol dose. Depending on response we could increase propranolol in the future. Thanks Precious Caballero RN 09/21/2024 12:16 PM Signed Called patient at [phone]. Left message on voicemail for patient to return call. Moni Encarnacion MA 09/23/2024 1:39 PM Signed Called and spoke with patient. He expressed understanding. Allergies As of Date: 09/18/2024 Noted Allergy Reaction IODINE 10/09/2002 14 - Other: See Comments Comments: ?decreased BP with iodinated contrast during a cardiac cath. Pt reports he was told by the health advocate that they almost lost him due to [...] (FLONASE) 50 mcg/actuation nasal spray Use 1 Rigby in each nostril once daily. 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 Rinse mouth [...] exam 1520 (more content not included)... Normal [facility] Comprehensive metabolic 2000 panelon 09-01-2024 Albumin [Mass/Vol] 4.6 g/dL Normal 3.9-4.9 [facility] Comment on above: Order Comment: Myles gottlieb Type: BLOOD SPECIMEN Ordering Facility: [facility] Address: [address] [place] [address] Performed By: #### 2 4323-8 #### [facility] CLIA [id number] [address] [place] [address] [place] ALP [Catalytic activity/Vol] 96 U/L Normal 38-113 [facility] Comment on above: Order Comment: Myles gottlieb Type: BLOOD SPECIMEN Ordering Facility: [facility] Address: [address] [id number] Performed By: #### 2 4323-8 #### [facility] CLIA [id number] [address] [place] [address] [place] ALT [Catalytic activity/Vol] 34 U/L Normal 10-54 [facility] Comment on above: Order Comment: Myles gottlieb Type: BLOOD SPECIMEN Ordering Facility: [facility] Address: [address] [id number] Performed By: #### 2 4323-8 #### [facility] CLIA [id number] [address] [place] [address] [place] Anion gap [Moles/Vol] 9 mmol/L Normal 8-15 [facility] Comment on above: Order Comment: Speci men Type: BLOOD SPECIMEN Ordering Facility: [facility] Address: [address] [place] [address] Performed By: #### 2 4323-8 #### [facility] CLIA [id number] [address] [place] [address] [place] AST [Catalytic activity/Vol] 26 U/L Normal 14-40 [facility] Comment on above: Order Comment: Speci men Type: BLOOD SPECIMEN Ordering Facility: [facility] Address: [address] [place] [address] Performed By: #### 2 4323-8 #### [facility] CLIA [id number] [address] [place] [address] [place] Bilirubin [Mass/Vol] 0.9 mg/dL Normal 0.2-1.3 [facility] Comment on above: Order Comment: Speci men Type: BLOOD SPECIMEN Ordering Facility: [facility] Address: [address] [place] [address] Performed By: #### 2 4323-8 #### [facility] CLIA [id number] [address] [place] [address] [place] Calcium [Mass/Vol] 10.1 mg/dL Normal 8.5-10.2 [facility] Comment on above: Order Comment: Speci men Type: BLOOD SPECIMEN Ordering Facility: [facility] Address: [address] [place] [address] Performed By: #### 2 4323-8 #### [facility] CLIA [id number] [address] [place] [address] [place] Chloride [Moles/Vol] 104 mmol/L Normal 98-107 [facility] Comment on above: Order Comment: Speci men Type: BLOOD SPECIMEN Ordering Facility: [facility] Address: [address] [place], [place] [address] Performed By: #### 2 4323-8 #### [facility] CLIA [id number] [address] [place] [address] [place] CO2 [Moles/Vol] 27 mmol/L Normal 22-30 [facility] Comment on above: Order Comment: Speci men Type: BLOOD SPECIMEN Ordering Facility: [facility] Address: [address] [place] [address] Performed By: #### 2 4323-8 #### [facility] CLIA [id number] [address] [place] [address] [place] Creatinine [Mass/Vol] 0.84 mg/dL Normal 0.73-1.22 [facility] Comment on above: Order Comment: Speci men Type: BLOOD SPECIMEN Ordering Facility: [facility] Address: [address] [place] [address] Performed By: #### 2 4323-8 #### [facility] CLIA [id number] [address] [place] [address] [place] Creatinine and Glomerular filtration rate.predicted panel (S/P/Bld) 87 mL/min/1.73m??? Normal >=60 [facility] Comment on above: Order Comment: Speci men Type: BLOOD SPECIMEN Ordering Facility: [facility] Address: [address] [place] [address] Result Comment: Janae mated Glomerular Filtration Rate [...] GFR. Performed By: #### 2 4323-8 #### [facility] CLIA [id number] [address] [place] [address] [place] Glucose [Mass/Vol] 124 mg/dL High 74-99 [facility] Comment on above: Order Comment: Specag men Type: BLOOD SPECIMEN Ordering Facility: [facility] Address: [address] [place] [address] Result Comment: The [place] Diabetes Association (ADA) provides guidance for cutoff [...] Standards of Medical Care in Diabetes 2016, [place] Diabetes Association. Diabetes Care. 2016.39(Suppl 1). Performed By: #### 2 4323-8 #### [id number] [address] [place] [address] [place] Potassium [Moles/Vol] 4.7 mmol/L Normal 3.7-5.1 [facility] Comment on above: Order Comment: Myles gottlieb Type: BLOOD SPECIMEN Ordering Facility: [facility] Address: [address] [place], [place] [address] Performed By: #### 2 4323-8 #### [facility] [id number] [address] [place] [address] [place] Protein [Mass/Vol] 7.0 g/dL Normal 6.3-8.0 [facility] Comment on above: Order Comment: Myles gottlieb Type: BLOOD SPECIMEN Ordering Facility: [facility] Address: [address] [place], [place] [address] Performed By: #### 2 4323-8 #### [facility] CLIA [id number] [address] [place] [address] [place] Sodium [Moles/Vol] 140 mmol/L Normal 136-144 [facility] Comment on above: Order Comment: Speci men Type: BLOOD SPECIMEN Ordering Facility: [facility] Address: [address] [place] [address] Performed By: #### 2 4323-8 #### [facility] CLIA [id number] [address] [place] [address] [place] Urea nitrogen [Mass/Vol] 34 mg/dL High 9-24 [facility] Comment on above: Order Comment: Speci men Type: BLOOD SPECIMEN Ordering Facility: [facility] Address: [address] [place] [address] Performed By: #### 2 4323-8 #### [facility] [id number] [address] [place] [address] [place] Lipid 1996 panelon 5 Cholesterol [Mass/Vol] 109 mg/dL Normal <200 [facility] Comment on above: Order Comment: Speci men Type: BLOOD SPECIMENOrdering Facility: [facility] Address: [address] [place] [address] Result Comment: <200 mg/dL, Desirable 200-239 mg/dL, Borderline high >239 mg/dL, High Performed By: #### 3 3762-6 ####[facility] LABCLIA [id number] [place] [address] [place]#### 50559-1 ####[facility] LABCLIA [id number] [place] [id number] [place] [facility] [id number] [address] [place] Cholesterol in HDL [Mass/Vol] 47 mg/dL Normal >39 [facility] Comment on above: Order Comment: Speci men Type: BLOOD SPECIMENOrdering Facility: [facility] Address: [address] [place] [address] Result Comment: 40-5 9 mg/dL, Acceptable >59 mg/dL, High: Negative risk factor for coronary heart disease <40 mg/dL, Low: Positive risk factor for coronary heart disease Performed By: #### 3 3762-6 ####[facility] LABCLIA [id number] [place] [address] [place]#### 01973-7 ####[facility] LABCLIA [id number] [place] [address] [place] [facility] [id number] [place] [address] [place] Cholesterol in LDL [Mass/Vol] 47 mg/dL Normal <100 [facility] Comment on above: Order Comment: Speci men Type: BLOOD SPECIMENOrdering Facility: [facility] Address: [address] [place] [address] Result Comment: <100 mg/dL, Optimal 100-129 mg/dL, Near optimal/above optimal 130-159 mg/dL, Borderline high 160-189 mg/dL, High >189 mg/dL, Very high Secondary prevention optimal LDL Cholesterol levels are recommended to be < 70 mg/dL Performed By: #### 3 3762-6 ####[facility] LABCLIA [id number] [place] [address] [place]#### 35991-9 ####[facility] LABCLIA [id number] [place] [address] [place] [facility] [id number] [place] [address] [place] Cholesterol in LDL/Cholesterol in HDL [Mass ratio] 1.00 {ratio} Normal <2.54 [facility] Comment on above: Order Comment: Speci men Type: BLOOD SPECIMENOrdering Facility: [facility] Address: [address] [place] [address] Result Comment: Refe rence: 1. National Cholesterol Education Program ATP III Guideline At-A-Glance Quick Desk Reference: National Heart, Lung, and Blood [place]. National Institutes of Health. 2001: NIH Publication No. 01-3305. 2. An International Atherosclerosis Society position paper: global recommendations for the management of dyslipidemia: executive summary, Atherosclerosis. 2014: 232(2):410-413. Performed By: #### 3 3762-6 ####[facility] LABCLIA [id number] [address] STATES [facility]#### 05838-2 ####[facility] LABCLIA [id number] [address] [id number] [address] [place] Cholesterol in VLDL [Mass/Vol] 15 mg/dL Normal <30 [facility] Comment on above: Order Comment: Speci men Type: BLOOD SPECIMENOrdering Facility: [facility] Address: [address] [place] [address] Performed By: #### 3 3762-6 ####[facility] LABCLIA [id number] [address] [place]#### 43643-6 ####[facility] LABCLIA [id number] [address] [id number] [address] [place] Cholesterol non HDL [Mass/Vol] 62 mg/dL Normal <130 [facility] Comment on above: Order Comment: Speci men Type: BLOOD SPECIMENOrdering Facility: [facility] Address: [address] [place] [address] Result Comment: <130 mg/dL, Optimal 130-159 mg/dL, Near optimal/above optimal 160-189 mg/dL, Borderline high 190-219 mg/dL, High >219 mg/dL, Very high Secondary prevention optimal non HDL Cholesterol levels are recommended to be <100 mg/dL Performed By: #### 3 3762-6 ####[facility] LABCLIA [id number] [place] [address] [place]#### 81699-5 ####[facility] LABCLIA [id number] [place] [id number] [place] [address] [place] Cholesterol.total/Cho lesterol in HDL [Mass ratio] 2.32 {ratio} Normal <5.10 [facility] Comment on above: Order Comment: Speci men Type: BLOOD SPECIMENOrdering Facility: [facility] Address: [address] [place] [address] Performed By: #### 3 3762-6 ####[facility] LABCLIA [id number] [place] [address] [place]#### 81886-4 ####[facility] LABCLIA [id number] [place] [id number] [place] [address] [place] FASTING TIME 12 hrs Normal [facility] Comment on above: Order Comment: Speci men Type: BLOOD SPECIMENOrdering Facility: [facility] Address: [address] [place], [place] [address] Performed By: #### 3 3762-6 ####[facility] LABCLIA [id number] [place] [address] [place]#### 54476-2 ####[facility] LABCLIA [id number] [place] [id number] [place] [facility] [id number] [place] [address] [place] Triglyceride [Mass/Vol] 73 mg/dL Normal <150 [facility] Comment on above: Order Comment: Speci men Type: BLOOD SPECIMENOrdering Facility: [facility] Address: [address] [place] [address] Result Comment: <150 mg/dL, Normal 150-199 mg/dL, Borderline high 200-499 mg/dL, High >499 mg/dL, Very high Performed By: #### 3 3762-6 ####[facility] LABCLIA [id number] [place] [address] [place]#### 56976-5 ####[facility] LABIA [id number] [id number] [place] [address] [place] NT-proBNP [facility] 09-01 Natriuretic peptide.B prohormone N-Terminal [Mass/Vol] 131 pg/mL Normal <450 [facility] Comment on above: Order Comment: Speci men Type: BLOOD SPECIMENOrdering Facility: [facility] Address: [address] [place] [address] Performed By: #### 3 3762-6 ####[facility] LABIA [id number] [place] [address] [place]#### 23430-2 ####[facility] LABIA [id number] [id number] [place] [address] [place] CNOVon 08-31-2024 CNOV Office Visit ([facility] ) SONIYA COOLEY ([id number]) 1940 M Date Time Provider Department 08/31/24 3:40 PM MARJ MACKEY During your visit today, we recorded the following information about you: Pulse Respiration Blood pressure Weight 74/minute 14/minute 98/56 91.2 kg Height 1.702 m Marj Mackey MD 08/31/2024 4:39 PM Signed [facility]ARDIOLOGY Cardiology ([address]) [address] [facility] [address] OUTPATIENT VISIT DATE 08/31/2024 PRIMARY CARE PHYSICIAN: Oniel Francis [address] [place] [address] HISTORY OF PRESENT ILLNESS: Mr. Cooley is [...] FECAL OC (more content not included)... Normal [facility] OS[facility]OO[facility] ([id number]) 1940 M Date Time Provider Department 05/08/24 ZINA DURAN [facility] During your visit today, we recorded the following information about you: Zina Duran APRN.TEMPORARY ADMINISTRATIVE ASSISTANT 05/08/2024 11:49 AM Signed Please let patient know their labs are WNL Olive Raphael OCCA 05/11/2024 11:02 AM Signed TC to patients , listed in chart to receive medical information, who verbalized understanding of below. asking that refills of atorvastatin and metoprolol be sent to pharmacy. Pended as such if provider agreeable. ROLAN 05/07/2024 NOV 02/08/2025 Zina Duran APRN.TEMPORARY ADMINISTRATIVE ASSISTANT 05/11/2024 1:04 PM Signed Please let patient know refills sent. Also Us results from [facility] negative for DVT ;however does show a likely popliteal cyst which could be causing pain. Recommend follow up with ortho. Autumn Mares MA 05/11/2024 1:07 PM Signed Left message for patient to return call to office RUSLAN NavasMayra cordero, CHELLY 05/11/2024 2:31 PM Signed Patient returned call and went over results, notes from Zina Duran NUT GRADER with understanding. Patient said he has appt on Saturday with Dr Caldwell at [facility] and requesting a copy of report be faxed. Printed and faxed to [phone] as requested. Allergies As of Date: 05/08/2024 Noted Allergy Reaction IODINE 10/09/2002 14 - Other: See Comments Comments: ?decreased BP with iodinated contrast during a cardiac cath. Pt reports he was told by the health advocate that they almost lost him due to [...] (FLONASE) 50 mcg/actuation nasal spray Use 1 Rigby in each nostril once daily. Rinse mouth [...] involving na (more content not included)... [facility] SONIYA COOLEY ([id number]) 1940 M Date Time Provider Department 05/08/24 ZINA DURAN During your visit today, we recorded the following information about you: Mayra Breaux LPN 05/08/2024 10:03 AM Signed Patient Elizabet calling having problem scheduling ultrasound for his legs at [facility]. She was told office has to call to schedule. This nurse called and spoke to scheduling Rosalia and scheduled STAT ultrasound of his legs today at 1 pm patient to be there at 1245 pm. Phoned patient back and gave instructions, told may want to be earlier since construction is going on at [facility] area. Phoned imaging scheduler and cancelled appt for [place] for this afternoon. Allergies As of Date: 05/08/2024 Noted Allergy Reaction IODINE 10/09/2002 14 - Other: See Comments Comments: ?decreased BP with iodinated contrast during a cardiac cath. Pt reports he was told by the health advocate that they almost lost him due to [...] (FLONASE) 50 mcg/actuation nasal spray Use 1 Rigby in each nostril once daily. 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 Normal [facility] Venous Duplex US - Claudy Extre [facility] 05-08-2024 Venous Duplex US - Claudy Extrem [facility] [address] [place] [address] Venous Duplex US - Claudy Extrem 05/08/24 1257 MR#: [id number] Acct: [id number] Name: SONIYA COOLEY Rep #: [id number] : 1940 83 From: Carloz Voss MD Attending Dr: Zina Duran, NUT GRADER-C Status: REG CLI Ordering Dr: Zina Duran NUT GRADER-C Date: 05/08/24 Location: [facility] Sex: M C [...] called and/or faxed to Zina Duran @ [phone] @ 13:20. VL/Venous Duplex US - Claudy [...] RVT 05/08/242250 Date Carloz Voss MD CC: NUT GRADER-C Zina Duran; Dr. Oniel Francis MD Date Dictated: 05/08/24 1257 Date Transcribed: 05/08/242250 Medical Physics Researcher: Signed Normal [facility] CBC W Auto Differential pane l (Bld)on 05-07-2024 Basophils (Bld) [#/Vol] 0.05 10*3/uL Normal <0.11 [facility] Comment on above: Order Comment: Speci men Type: BLOOD SPECIMENOrdering Facility: [facility] Address: [address] [place] [address] Performed By: #### 5 7021-8 ####[facility] LABCLIA [id number] [place] [address] [place] Basophils/100 WBC (Bld) 0.8 % Normal [facility] Comment on above: Order Comment: Speci men Type: BLOOD SPECIMENOrdering Facility: [facility] Address: [address] [place] [address] Performed By: #### 5 7021-8 ####[facility] LABCLIA [id number] [place] [address] [place] Differential cell count method Nom (Bld) Auto Normal [facility] Comment on above: Order Comment: Speci men Type: BLOOD SPECIMENOrdering Facility: [facility] Address: [address] [place] [address] Performed By: #### 5 7021-8 ####[facility] LABCLIA [id number] [place] [address] [place] Eosinophils (Bld) [#/Vol] 0.42 10*3/uL Normal <0.46 [facility] Comment on above: Order Comment: Speci men Type: BLOOD SPECIMENOrdering Facility: [facility] Address: [address] [place] [address] Performed By: #### 5 7021-8 ####[facility] LABIA [id number] [place] [address] [place] Eosinophils/100 WBC (Bld) 6.3 % Normal [facility] Comment on above: Order Comment: Speci men Type: BLOOD SPECIMENOrdering Facility: [facility] Address: [address] [place] [address] Performed By: #### 5 7021-8 ####[facility] LABIA [id number] [place] [address] [place] Erythrocyte distribution width (RBC) [Ratio] 12.8 % Normal 11.5-15.0 [facility] Comment on above: Order Comment: Speci men Type: BLOOD SPECIMENOrdering Facility: [facility] Address: [address] [place] [address] Performed By: #### 5 7021-8 ####[facility] LABIA [id number] [place] [address] [place] Hematocrit (Bld) [Volume fraction] 41.0 % Normal 39.0-51.0 [facility] Comment on above: Order Comment: Speci men Type: BLOOD SPECIMENOrdering Facility: [facility] Address: [address] [place] [address] Performed By: #### 5 7021-8 ####[facility] LABCLIA [id number] [place] [address] [place] Hemoglobin (Bld) [Mass/Vol] 13.7 g/dL Normal 13.0-17.0 [facility] Comment on above: Order Comment: Speci men Type: BLOOD SPECIMENOrdering Facility: [facility] Address: [address] [place] [address] Performed By: #### 5 7021-8 ####[facility] LABCLIA [id number] [place] [address] [place] Immature granulocytes (Bld) [#/Vol] 0.03 10*3/uL Normal <0.10 [facility] Comment on above: Order Comment: Speci men Type: BLOOD SPECIMENOrdering Facility: [facility] Address: [address] [place] [address] Performed By: #### 5 7021-8 ####[facility] LABIA [id number] [place] [address] [place] Immature granulocytes/100 WBC (Bld) 0.5 % Normal [facility] Comment on above: Order Comment: Speci men Type: BLOOD SPECIMENOrdering Facility: [facility] Address: [address] [place] [address] Performed By: #### 5 7021-8 ####[facility] LABIA [id number] [place] [address] [place] Lymphocytes (Bld) [#/Vol] 2.63 10*3/uL Normal 1.00-4.00 [facility] Comment on above: Order Comment: Speci men Type: BLOOD SPECIMENOrdering Facility: [facility] Address: [address] [place] [address] Performed By: #### 5 7021-8 ####[facility] LABIA [id number] [place] [address] [place] Lymphocytes/100 WBC (Bld) 39.5 % Normal [facility] Comment on above: Order Comment: Speci men Type: BLOOD SPECIMENOrdering Facility: [facility] Address: [address] [place] [address] Performed By: #### 5 7021-8 ####[facility] LABIA [id number] [place] [address] [place] MCH (RBC) [Entitic mass] 32.5 pg Normal 26.0-34.0 [facility] Comment on above: Order Comment: Speci men Type: BLOOD SPECIMENOrdering Facility: [facility] Address: [address] [place] [address] Performed By: #### 5 7021-8 ####[facility] [id number] [place] [address] [place] MCHC (RBC) [Mass/Vol] 33.4 g/dL Normal 30.5-36.0 [facility] Comment on above: Order Comment: Speci men Type: BLOOD SPECIMENOrdering Facility: [facility] Address: [address] [place] [address] Performed By: #### 5 7021-8 ####[facility] [id number] [place] [address] [place] MCV (RBC) [Entitic vol] 97.2 fL Normal 80.0-100.0 [facility] Comment on above: Order Comment: Speci men Type: BLOOD SPECIMENOrdering Facility: [facility] Address: [address] [place] [address] Performed By: #### 5 7021-8 ####[facility] [id number] [place] [address] [place] Monocytes (Bld) [#/Vol] 0.66 10*3/uL Normal <0.87 [facility] Comment on above: Order Comment: Speci men Type: BLOOD SPECIMENOrdering Facility: [facility] Address: [address] [place] [address] Performed By: #### 5 7021-8 ####[facility] LABCLIA [id number] [place] [address] [place] Monocytes/100 WBC (Bld) 9.9 % Normal [facility] Comment on above: Order Comment: Speci men Type: BLOOD SPECIMENOrdering Facility: [facility] Address: [address] [place] [address] Performed By: #### 5 7021-8 ####[facility] LABCLIA [id number] [place] [address] [place] Neutrophils (Bld) [#/Vol] 2.86 10*3/uL Normal 1.45-7.50 [facility] Comment on above: Order Comment: Speci men Type: BLOOD SPECIMENOrdering Facility: [facility] Address: [address] [place] [address] Performed By: #### 5 7021-8 ####[facility] LABCLIA [id number] [place] [address] [place] Neutrophils/100 WBC (Bld) 43.0 % Normal [facility] Comment on above: Order Comment: Speci men Type: BLOOD SPECIMENOrdering Facility: [facility] Address: [address] [place] [address] Performed By: #### 5 7021-8 ####[facility] LABCLIA [id number] [place] [address] [place] Nucleated RBC (Bld) [#/Vol] 10*3/uL Normal <0.01 [facility] Comment on above: Order Comment: Speci men Type: BLOOD SPECIMENOrdering Facility: [facility] Address: [address] [place] [address] Performed By: #### 5 7021-8 ####[facility] LABCLIA [id number] [place] [address] [place] Nucleated RBC/100 WBC (Bld) [Ratio] 0.0 /100 WBC Normal [facility] Comment on above: Order Comment: Speci men Type: BLOOD SPECIMENOrdering Facility: [facility] Address: [address] [place] [address] Performed By: #### 5 7021-8 ####[facility] LABCLIA [id number] [place] [address] [place] Platelet mean volume (Bld) [Entitic vol] 11.5 fL Normal 9.0-12.7 [facility] Comment on above: Order Comment: Speci men Type: BLOOD SPECIMENOrdering Facility: [facility] Address: [address] [place] [address] Performed By: #### 5 7021-8 ####[facility] LABCLIA [id number] [place] [address] [place] Platelets (Bld) [#/Vol] 145 10*3/uL Low 150-400 [facility] Comment on above: Order Comment: Speci men Type: BLOOD SPECIMENOrdering Facility: [facility] Address: [address] [place] [address] Performed By: #### 5 7021-8 ####[facility] LABIA [id number] [place] [address] [place] RBC (Bld) [#/Vol] 4.22 10*6/uL Normal 4.20-6.00 [facility] Comment on above: Order Comment: Speci men Type: BLOOD SPECIMENOrdering Facility: [facility] Address: [address] [place] [address] Performed By: #### 5 7021-8 ####[facility] LABCLIA [id number] [place] [address] [place] WBC (Bld) [#/Vol] 6.65 10*3/uL Normal 3.70-11.00 [facility] Comment on above: Order Comment: Speci men Type: BLOOD SPECIMENOrdering Facility: [facility] Address: [address] [place] [address] Performed By: #### 5 7021-8 ####[facility] LABCHRISSIE [id number] [address] [id number] [address] [place] CNOVon 05-07-2024 CNOV Office Visit ([facility] ) SONIYA COOLEY ([id number]) 1940 M Date Time Provider Department 05/07/24 3:40 PM [facility] During your visit today, we recorded the following information about you: Pulse Respiration Blood pressure Weight 63/minute 16/minute 125/67 90.7 kg Zina Duran, MANAGER MANAGEMENT.TEMPORARY ADMINISTRATIVE ASSISTANT 05/07/2024 4:00 PM Signed Chief Complaint Patient [...] XCP H (more content not included)... Normal [facility] SONIYA COOLEY ([id number]) 1940 M Date Time Provider Department 05/07/24 ZINA DURAN [facility] During your visit today, we recorded the following information about you: Sophie Collier 05/07/2024 4:57 PM Signed Pt called to check schedule in [place] for [place]. There are no appointments available here tomorrow. He would like to check at the [facility] if the order could be sent there to check appointment availability tomorrow. He kept the [place] appointment just in case we find that the [facility] can't accommodate tomorrow. Zina Duran APRN.NIGHAT 05/07/2024 5:04 PM Signed Please check to see if [facility] has availability. If so please fax order. Autumn Mares MA 05/08/2024 9:12 AM Signed Referral placed. Waiting to hear back from pre access if approved RUSLAN Navas Brittany, MA 05/08/2024 9:28 AM Signed Approval received. Pt will call [facility] to schedule Autumn Mares MA Allergies As of Date: 05/07/2024 Noted Allergy Reaction IODINE 10/09/2002 14 - Other: See Comments Comments: ?decreased BP with iodinated contrast during a cardiac cath. Pt reports he was told by the health advocate that they almost lost him due to [...] (FLONASE) 50 mcg/actuation nasal spray Use 1 Rigby in each nostril once daily. Rinse mouth [...] disorder [G47.9] 07/26/2015 Coronary 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[place] owing[place] ballard*08/24/2015 Meniscus tear [S83.209A] 12/27/2015 Elevated blood [...] of maligna (more content not included)... Normal [facility] Comprehensive metabolic 2000 panelon 05-07-2024 Albumin [Mass/Vol] 4.2 g/dL Normal 3.9-4.9 [facility] Comment on above: Order Comment: Speci men Type: BLOOD SPECIMEN [facility] Facility[facility] Address: [address] [place] [address] Performed By: #### 2 4323-8 #### [facility] CLIA [id number] [address] [place] [address] [place] ALP [Catalytic activity/Vol] 103 U/L Normal 38-113 [facility] Comment on above: Order Comment: Speci men Type: BLOOD SPECIMEN [facility] Address: [address] [place] [address] Performed By: #### 2 4323-8 #### [facility] CLIA [id number] [address] [place] [address] [place] ALT [Catalytic activity/Vol] 11 U/L Normal 10-54 [facility] Comment on above: Order Comment: Speci men Type: BLOOD SPECIMEN [facility] Facility: [facility] Address: [address] [place] [address] Performed By: #### 2 4323-8 #### [facility] CLIA [id number] [address] [place] [address] [place] Anion gap [Moles/Vol] 9 mmol/L Normal 8-15 [facility] Comment on above: Order Comment: Speci men Type: BLOOD SPECIMEN [facility] Address: [address] [place] [address] Performed By: #### 2 4323-8 #### [facility] CLIA [id number] [address] [place] [address] [place] AST [Catalytic activity/Vol] 26 U/L Normal 14-40 [facility] Comment on above: Order Comment: Speci men Type: BLOOD SPECIMEN Ordering Facility: [facility] Address: [address] [place] [address] Performed By: #### 2 4323-8 #### [facility] CLIA [id number] [address] [place] [address] [place] Bilirubin [Mass/Vol] 0.4 mg/dL Normal 0.2-1.3 [facility] Comment on above: Order Comment: Speci men Type: BLOOD SPECIMEN Ordering Facility: [facility] Address: [address] [place] [address] Performed By: #### 2 4323-8 #### [facility] CLIA [id number] [address] [place] [address] [place] Calcium [Mass/Vol] 9.1 mg/dL Normal 8.5-10.2 [facility] Comment on above: Order Comment: Speci men Type: BLOOD SPECIMEN [facility]ing Facility: [facility] Address: [address] [place] [address] Performed By: #### 2 4323-8 #### [facility] CLIA [id number] [address] [place] [address] [place] Chloride [Moles/Vol] 107 mmol/L Normal 98-107 [facility] Comment on above: Order Comment: Speci men Type: BLOOD SPECIMEN [facility]: [facility] Address: [address] [place] [address] Performed By: #### 2 4323-8 #### [facility] CLIA [id number] [address] [place] [address] [place] CO2 [Moles/Vol] 24 mmol/L Normal 22-30 [facility] Comment on above: Order Comment: Speci men Type: BLOOD SPECIMEN Ordering Facility: [facility] Address: [address] [place] [address] Performed By: #### 2 4323-8 #### [facility] CLIA [id number] [address] [place] [address] [place] Creatinine [Mass/Vol] 0.72 mg/dL Low 0.73-1.22 [facility] Comment on above: Order Comment: Speci men Type: BLOOD SPECIMEN Ordering Facility: [facility] Address: [address] [place] [address] Performed By: #### 2 4323-8 #### [id number] [address] [place] [address] [place] [facility] Creatinine and Glomerular filtration rate.predicted panel (S/P/Bld) 91 mL/min/1.73m??? Normal >=60 [facility] Comment on above: Order Comment: Speci men Type: BLOOD SPECIMEN [facility] Address: [address] [place] [address] Result Comment: Janae mated Glomerular Filtration Rate [...] GFR. Performed By: #### 2 4323-8 #### [facility] [id number] [address] [place] [address] [place] Glucose [Mass/Vol] 141 mg/dL High 74-99 [facility] Comment on above: Order Comment: Speci men Type: BLOOD SPECIMEN Ordering Facility: [facility] Address: [address] [place] [address] Result Comment: The [place] Diabetes Association (ADA) provides guidance for cutoff [...] Standards of Medical Care in Diabetes 2016, [place] [employer]. Diabetes Care. 2016.39(Suppl 1). Performed By: #### 2 4323-8 #### [facility] [id number] [address] [place] [address] [place] Potassium [Moles/Vol] 4.1 mmol/L Normal 3.7-5.1 [facility] Comment on above: Order Comment: Murphyi men Type: BLOOD SPECIMEN Ordering Facility: [facility] Address: [address] [place] [address] Performed By: #### 2 4323-8 #### [facility] [id number] [address] [place] [address] [place] Protein [Mass/Vol] 6.6 g/dL Normal 6.3-8.0 [facility] Comment on above: Order Comment: Speci men Type: BLOOD SPECIMEN [facility]ing [facility]: [facility] Address: [address] [place] [address] Performed By: #### 2 4323-8 #### [facility] [id number] [address] [place] [address] [place] Sodium [Moles/Vol] 140 mmol/L Normal 136-144 [facility] Comment on above: Order Comment: Speci men Type: BLOOD SPECIMEN Ordering Facility: [facility] Address: [address] [place] [address] Performed By: #### 2 4323-8 #### [facility] [id number] [address] [place] [address] [place] Urea nitrogen [Mass/Vol] 20 mg/dL Normal 9-24 [facility] Comment on above: Order Comment: Speci men Type: BLOOD SPECIMEN [facility]ing Facility: [facility] Address: [address] [place] [address] Performed By: #### 2 4323-8 #### [facility] [id number] [address] [place] [address] [place] Magnesium SerPl-mCncon 05-07 Magnesium [Mass/Vol] 2.3 mg/dL Normal 1.7-2.3 [facility] Comment on above: Order Comment: Speci men Type: BLOOD SPECIMEN Ordering Facility: [facility] Address: [address] [place] [address] Performed By: #### 2 4323-8 #### [facility] [id number] [address] [place] [address] [place] Phosphate SerPl-mCncon 05-07 Phosphate [Mass/Vol] 2.7 mg/dL Normal 2.7-4.8 [facility] Comment on above: Order Comment: Speci men Type: BLOOD SPECIMEN Ordering Facility: [facility] Address: [address] [place] [address] Performed By: #### 2 4323-8 #### [facility] [id number] [address] [place] [address] [facility] CNOVon 04-07-2024 CNOV Office Visit (FAMPWS ) SONIYA COOLEY ([id number]) 1940 M Date Time Provider Department 04/07/24 10:40 AM [facility] During your visit today, we recorded [...] RADICAL RESECTIO (more content not included)... Normal [facility] Nickolas 04-07-2024 [facility] SONIYA COOLEY ([id number]) 1940 M Date Time Provider Department 04/07/24 ELLA VALDOVINOS [facility] During your visit today, we recorded the following information about you: Ella Valdovinos PA-C 04/07/2024 11:14 AM Signed Ordering labs for next year's wellness exam. Ella Valdovinos PA-C Allergies As of Date: 04/07/2024 Noted Allergy Reaction IODINE 10/09/2002 14 - Other: See Comments Comments: ?decreased BP with iodinated contrast during a cardiac cath. Pt reports he was told by the health advocate that they almost lost him due to [...] [E55.9] Order(s):LIPID PANEL, NONFASTING [SQLIPNF] Order #: [id number] FUTURE URINALYSIS, WITH MICROSCOPIC [SQUAWMIC] Order #: [id number] FUTURE COMPREHENSIVE METABOLIC PANEL [SQCMP] Order #: [id number] FUTURE HEMOGLOBIN A1C [KRUYH4K] Order #: [id number] FUTURE THYROID STIMULATING HORMONE [SQTSH] Order #: [id number] FUTURE VITAMIN D 25 HYDROXY [SQVITD] Order #: [id number] FUTURE VITAMIN B12 [SQB12] Order #: [id number] FUTURE COMPLETE BLOOD COUNT AND DIFFERENTIAL [SQCBCDIF] Order #: [id number] FUTURE Prescriptions as of 04/07/2024 - tamsulosin [...] (FLONASE) 50 mcg/actuation nasal spray Use 1 Rigby in each nostril once daily. Rinse mouth [...] disorder [G47.9] 07/26/2015 Coronary 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[place] owing[place] ballard*08/24/2015 Meniscus tear [S83.209A] 12/27/2015 Elevated blood [...] (HCC) [D68. (more content not included)... Normal [facility] CNOVon 03-11-2024 CNOV Office Visit ([facility] ) SONIYA COOLEY ([id number]) 1940 M Date Time Provider Department 03/11/24 1:00 PM ABBY PATE [facility] During your visit today, we recorded [...] (FLONASE) 50 mcg/actuation nasal spray Use 1 Rigby in each nostril once daily. Rinse mouth [...] Shoulder shru (more content not included)... Normal [facility] 02[facility]24-[facility] SON[facility] COO[facility] ([id number]) 1940 M Date Time Provider Department 02/24/24 [facility] During your visit today, we recorded [...] much sleep at night. CHELLY Elizondo Danielle, APRN.[facility] 02/24/2024 4:33 PM Signed Is patient currently [...] he started the medication. RUSLAN Navas Danielle, ANGIE.[facility] 02/25/2024 8:09 AM Signed Please let patient know it can take 2-6 weeks for medication to become effective. Stacy Varghese, NORA 02/25/2024 11:51 AM Signed Call placed to patient and notified of provider message below. Patient verbalizes understanding and will continue taking Flomax. Stacy Varghese RN Allergies As of Date: 02/24/2024 Noted Allergy Reaction IODINE 10/09/2002 14 - Other: See Comments Comments: ?decreased BP with iodinated contrast during a cardiac cath. Pt reports he was told by the health advocate that they almost lost him due to his reaction and was allergic reaction. The patient reports taking 13 hour allergy premedications in the past with Iodinated contrast without experiencing any breakthrough reaction. PENICILLIN G 10/09/2002 4 - Hives Date Reviewed: 02/10/2024 Reviewed by: Carmen Stoner MA - Fully Assessed Reason for Visit: Medication Question [2688] Prescriptions as of 02/25/2024 - tamsulosin (FLOMAX) [...] (FLONASE) 50 mcg/actuation nasal spray Use 1 Rigby in each nostril once daily. Rinse mouth [...] disorder [G47.9] 07/26/2015 Coronary 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[place] ballard*08/24/2015 Meniscus tear [S83.209A] 12/27/2015 Elevated blood sugar [R73.9] 06/19/2016 Seasonal (more content not included)... Normal [facility] .Auto Diffon 02-19-2024 Basophil, Absolute 0.0 10 3/mcL Normal 0.0-0.2 [facility] ([place]) Comment on above: Performed By: #### A BOGEL, ANEU, CBC, GFR, ADIFF, ABSGEL, BMP, ALB #### [address] [address] Basophils/100 WBC (Bld) 0.0 % Normal 0.0-2.5 [facility] ([place]) Comment on above: Performed By: #### A BOGEL, ANEU, CBC, GFR, ADIFF, ABSGEL, BMP, ALB #### [address] [address] Eosinophil, Absolute 0.0 10 3/mcL Normal 0.0-0.4 [facility] ([place]) Comment on above: Performed By: #### A BOGEL, ANEU, CBC, GFR, ADIFF, ABSGEL, BMP, ALB #### [address] [address] Eosinophils/100 WBC (Bld) 0.0 % Normal 0.0-7.0 [facility] ([place]) Comment on above: Performed By: #### A BOGEL, ANEU, CBC, GFR, ADIFF, ABSGEL, BMP, ALB #### [address] [address] Lymphocyte, Absolute 1.2 10 3/mcL Normal 0.8-3.9 [facility] ([place]) Comment on above: Performed By: #### A BOGEL, ANEU, CBC, GFR, ADIFF, ABSGEL, BMP, ALB #### [address] [address] Lymphocytes/100 WBC (Bld) 8.8 % Low 10.0-50.0 [facility] ([place]) Comment on above: Performed By: #### A BOGEL, ANEU, CBC, GFR, ADIFF, ABSGEL, BMP, ALB #### [address] [address] Monocyte, Absolute 0.6 10 3/mcL Normal 0.2-1.0 [facility] ([place]) Comment on above: Performed By: #### A BOGEL, ANEU, CBC, GFR, ADIFF, ABSGEL, BMP, ALB #### [address] [address] Monocytes/100 WBC (Bld) 4.7 % Normal 1.7-13.0 [facility] ([place]) Comment on above: Performed By: #### A BOGEL, ANEU, CBC, GFR, ADIFF, ABSGEL, BMP, ALB #### [address] [address] Neutrophils/100 WBC (Bld) 86.5 % High 37.0-80.0 [facility] ([place]) Comment on above: Performed By: #### A BOGEL, ANEU, CBC, GFR, ADIFF, ABSGEL, BMP, ALB #### [address] [address] .GFRon 02-19-2024 GFR 95 ml/min/1.73sqm Normal [facility] ([place]) Comment on above: Result Comment: GFR [...] CBC, GFR, ADIFF, ABSGEL, BMP, ALB #### [address] [address] GFR Non- 79 ml/min/1.73sqm Normal [facility] ([place]) Comment on above: Result Comment: GFR [...] CBC, GFR, ADIFF, ABSGEL, BMP, ALB #### [address] [address] .NEUABSon 02-19-2024 Neutrophil, Absolute 11.7 10 3/mcL High 2.9-6.2 A [facility] ([place]) Comment on above: Performed By: #### A BOGEL, ANEU, CBC, GFR, ADIFF, ABSGEL, BMP, ALB #### [address] [address] BMPon 02-19-2024 BUN/Creatinine Ratio 25 ratio Normal 7-27 [facility] ([place]) Comment on above: Performed By: #### A BOGEL, ANEU, CBC, GFR, ADIFF, ABSGEL, BMP, ALB #### [address] [address] Calcium [Mass/Vol] 8.9 mg/dL Normal 8.4-10.2 [facility] ([place]) Comment on above: Performed By: #### A BOGEL, ANEU, CBC, GFR, ADIFF, ABSGEL, BMP, ALB #### [address] [address] Chloride [Moles/Vol] 105 mmol/L Normal 98-107 [facility] ([place]) Comment on above: Performed By: #### A BOGEL, ANEU, CBC, GFR, ADIFF, ABSGEL, BMP, ALB #### [address] [address] CO2 [Moles/Vol] 26 mmol/L Normal 23-31 [facility] ([place]) Comment on above: Performed By: #### A BOGEL, ANEU, CBC, GFR, ADIFF, ABSGEL, BMP, ALB #### [address] [address] Creatinine [Mass/Vol] 0.92 mg/dL Normal 0.70-1.30 [facility] ([place]) Comment on above: Performed By: #### A BOGEL, ANEU, CBC, GFR, ADIFF, ABSGEL, BMP, ALB #### [address] [address] Electrolyte Balance 8.0 mEq/L Normal 4.0-15.0 [facility] ([place]) Comment on above: Performed By: #### A JAMIEEL, ANEU, CBC, GFR, ADIFF, ABSGEL, BMP, ALB #### [address] [address] Glucose [Mass/Vol] 131 mg/dL High 83-110 [facility] ([place]) Comment on above: Performed By: #### A ARA, ANEU, CBC, GFR, ADIFF, ABSGEL, BMP, ALB #### [address] [address] Potassium [Moles/Vol] 4.2 mmol/L Normal 3.5-5.1 [facility] ([place]) Comment on above: Performed By: #### A ARA ANEU, CBC, GFR, ADIFF, ABSGEL, BMP, ALB #### [address] [address] Sodium [Moles/Vol] 139 mmol/L Normal 136-145 [facility] ([place]) Comment on above: Performed By: #### A BOGEL, ANEU, CBC, GFR, ADIFF, ABSGEL, BMP, ALB #### [address] [address] Urea nitrogen [Mass/Vol] 23 mg/dL High 7-18 [facility] ([place]) Comment on above: Performed By: #### A BOGEL, ANEU, CBC, GFR, ADIFF, ABSGEL, BMP, ALB #### [address] [address] CBCon 02-19-2024 Erythrocyte distribution width (RBC) [Ratio] 13.7 % Normal 11.5-14.5 [facility] ([place]) Comment on above: Performed By: #### G FR, ADIFF, CBC, ANEU, BMP #### [address] [address] Hematocrit (Bld) [Volume fraction] 37.1 % Low 42.0-52.0 [facility] ([place]) Comment on above: Performed By: #### G FR, ADIFF, CBC, ANEU, BMP #### [address] [address] Hgb 12.7 G/dL Low 14.0-18.0 [facility] ([place]) Comment on above: Performed By: #### G FR, ADIFF, CBC, ANEU, BMP #### [address] [address] MCH (RBC) [Entitic mass] 33.1 pg High 27.0-31.2 [facility] ([place]) Comment on above: Performed By: #### Levi FR, ADIFF, CBC, ANEU, BMP #### [address] [address] MCHC 34.2 G/dL Normal 31.8-35.4 [facility] ([place]) Comment on above: Performed By: #### Levi FR, ADIFF, CBC, ANEU, BMP #### [address] [address] MCV (RBC) [Entitic vol] 96.7 fL High 80.0-94.0 [facility] ([place]) Comment on above: Performed By: #### G FR, ADIFF, CBC, ANEU, BMP #### [address] [address] Platelet 135 10 3/mcL Normal 130-400 [facility] ([place]) Comment on above: Performed By: #### G FR, ADIFF, CBC, ANEU, BMP #### [address] [address] Platelet mean volume (Bld) [Entitic vol] 9.4 fL Normal 7.4-10.4 [facility] ([place]) Comment on above: Performed By: #### G FR, ADIFF, CBC, ANEU, BMP #### [address] [place], [place] [address] RBC 3.84 10 6/mcL Low 4.04-6.13 [facility] ([place]) Comment on above: Performed By: #### G FR, ADIFF, CBC, ANEU, BMP #### [address] [place], [place] [address] WBC 13.6 10 3/mcL High 4.6-10.8 [facility] ([place]) Comment on above: Performed By: #### G FR, ADIFF, CBC, ANEU, BMP #### [address] [address] LABORATORYOrdered By: SYSTEM SYSTEM on 02-19-2024 Basophil, [...] 02-18-2024 ABO/Rh Interp Positive Invalid Interpretation Code [facility] ([place]) Comment on above: Performed By: #### A LA BULLOCK, CBC, GFR, ADIFF, ABSGEL, BMP, ALB #### [address] [address] ABS (Gel)on 02-18-2024 ABSC Interp (Gel) Negative Normal [facility] ([place]) Comment on above: Performed By: #### A LA BULLOCK, CBC, GFR, ADIFF, ABSGEL, BMP, ALB #### [address] [place], [place] [address] LABORATORYOrdered By: Pee Leavitt on 02-18-2024 ABO [...] 02/18/2024 3:48:22 PM Ordering Provider: DEAN Rivas [facility] ([place]) [facility]) [facility] ([id number]) 1940 Date Time Provider Department 02/12[facility] During [facility] visit today, we recorded the following information about you: Shae Morrissey LPN 02/12/2024 4:13 PM Signed Katia calling from [address] [employer], pt is there for a pre op appt. Requesting last 2 chest xrays. Xrays from 12/14/23 AND 01/31/24 faxed to [phone]. Shae Morrissey LPN Allergies As of Date: 02/12/2024 Noted Allergy Reaction IODINE 10/09/2002 14 - Other: See Comments Comments: ?decreased BP with iodinated contrast during a cardiac cath. Pt reports he was told by the health advocate that they almost lost him due to [...] (FLONASE) 50 mcg/actuation nasal spray Use 1 Rigby in each nostril once daily. Rinse mouth [...] disorder [G47.9] 07/26/2015 Coronary 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[place] ballard*08/24/2015 Meniscus tear [S83.209A] 12/27/2015 Elevated blood [...] [R80.8] 01/10/2021 12/25/2022 Living will on file [[id number]] 12/12/2021 (more content not included)... Normal [facility] CNOVon 02-10-2024 CNOV Office Visit (FAMPWS ) SONIYA COOLEY ([id number]) 1940 M Date Time Provider Department 02/10/24 [...] Nocturnal hy (more content not included)... Normal [facility] Nickolas 02-03-2024 [facility]IGH[facility] Telephone (FAMPWS) SONIYA COOLEY ([id number]) 1940 M Date Time Provider Department 02/03/24 [...] Pt reports he was told by the health advocate that they almost lost him due to [...] (FLONASE) 50 mcg/actuation nasal spray Use 1 Rigby in each nostril once daily. Rinse mouth [...] by this patient by: PATIENT and SPOUSE Reha Emery Pharm-T Problem List As Of Date [...] disorder [G47.9] 07/26/2015 Coronary 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[place] ballard*08/24/2015 Meniscus tear [S83.209A] 12/27/2015 Elevated blood [...] hands [M79. (more content not included)... Normal [facility] XR Chest PA and Lateralon IMPRESSION: Overall unremarkable exam with no acute radiographic abnormality. Medical Physics Researcher: PSCB Transcribe Date/Time: Feb 02 2024 10:25A Dictated by : MAGO RAINEY MD This examination was interpreted and the report reviewed and electronically signed by: MAGO RAINEY MD on Feb 02 2024 10:26AM [facility] DIVISION OF RADIOLOGY * * *Final Report* [...] soft tissues: Unremarkable. DIVISION OF RADIOLOGY Provider, [facility] - 02/02/2024 * * *Final Report* [...] unremarkable exam with no acute radiographic abnormality. Medical Physics Researcher: PSCB Transcribe Date/Time: Feb 02 2024 10:25A Dictated by : MAGO RAINEY MD This examination was interpreted and the report reviewed and electronically signed by: MAGO RAINEY MD on Feb 02 2024 10:26AM EST [facility] XR Chest PA and LateralOrder ed By: Ccf Provider on 02-02-2024 [facility] 25(OH)D3 SerPl-mCncon 2023 25-hydroxyvitamin D3 [Mass/Vol] 56.2 ng/mL Normal 31.0-80.0 [facility] Comment on above: Order Comment: Speci men Type: BLOOD SPECIMENOrdering Facility: [facility] Address: [address] [place] [address] Result Comment: Clas sification of 25 [place] Vitamin D status: Deficiency/Insufficiency: < or = 30 ng/ml. Sufficiency/Optimal Levels: 31-80 ng/mL Toxicity: > 100 ng/mL. Test performed by chemiluminescent immunoassay. Performed By: #### 1 989-3 ####[facility] LABCLIA [id number] [place] [address] [place] CBC W Auto Differential pane l (Bld)on 01-31-2024 Basophils (Bld) [#/Vol] 0.04 10*3/uL Normal <0.11 [facility] Comment on above: Order Comment: Speci men Type: BLOOD SPECIMENOrdering Facility: [facility] Address: [address] [place] [address] Performed By: #### 5 7021-8 ####[facility] LABCLIA [id number] [place] [address] [place] Basophils/100 WBC (Bld) 0.6 % Normal [facility] Comment on above: Order Comment: Speci men Type: BLOOD SPECIMENOrdering Facility: [facility] Address: [address] [place] [address] Performed By: #### 5 7021-8 ####[facility] LABCLIA [id number] [place] [address] [place] Differential cell count method Nom (Bld) Auto Normal [facility] Comment on above: Order Comment: Speci men Type: BLOOD SPECIMENOrdering Facility: [facility] Address: [address] [place] [address] Performed By: #### 5 7021-8 ####[facility] LABCLIA [id number] [place] [address] [place] Eosinophils (Bld) [#/Vol] 0.40 10*3/uL Normal <0.46 [facility] Comment on above: Order Comment: Speci men Type: BLOOD SPECIMENOrdering Facility: [facility] Address: [address] [place] [address] Performed By: #### 5 7021-8 ####[facility] LABCLIA [id number] [place] [address] [place] Eosinophils/100 WBC (Bld) 5.6 % Normal [facility] Comment on above: Order Comment: Speci men Type: BLOOD SPECIMENOrdering Facility: [facility] Address: [address] [place] [address] Performed By: #### 5 7021-8 ####[facility] LABCLIA [id number] [place] [address] [place] Erythrocyte distribution width (RBC) [Ratio] 12.9 % Normal 11.5-15.0 [facility] Comment on above: Order Comment: Speci men Type: BLOOD SPECIMENOrdering Facility: [facility] Address: [address] [place] [address] Performed By: #### 5 7021-8 ####[facility] LABCLIA [id number] [place] [address] [place] Hematocrit (Bld) [Volume fraction] 44.9 % Normal 39.0-51.0 [facility] Comment on above: Order Comment: Speci men Type: BLOOD SPECIMENOrdering Facility: [facility] Address: [address] [place] [address] Performed By: #### 5 7021-8 ####[facility] LABCLIA [id number] [place] [address] [place] Hemoglobin (Bld) [Mass/Vol] 15.1 g/dL Normal 13.0-17.0 [facility] Comment on above: Order Comment: Speci men Type: BLOOD SPECIMENOrdering Facility: [facility] Address: [address] [place] [address] Performed By: #### 5 7021-8 ####[facility] LABCLIA [id number] [place] [address] [place] Immature granulocytes (Bld) [#/Vol] 10*3/uL Normal <0.10 [facility] Comment on above: Order Comment: Speci men Type: BLOOD SPECIMENOrdering Facility: [facility] Address: [address] [place] [address] Performed By: #### 5 7021-8 ####[facility] LABCLIA [id number] [place] [address] [place] Immature granulocytes/100 WBC (Bld) 0.3 % Normal [facility] Comment on above: Order Comment: Speci men Type: BLOOD SPECIMENOrdering Facility: [facility] Address: [address] [place] [address] Performed By: #### 5 7021-8 ####[facility] LABCLIA [id number] [place] [address] [place] Lymphocytes (Bld) [#/Vol] 3.12 10*3/uL Normal 1.00-4.00 [facility] Comment on above: Order Comment: Speci men Type: BLOOD SPECIMENOrdering Facility: [facility] Address: [address] [place] [address] Performed By: #### 5 7021-8 ####[facility] LABCLIA [id number] [place] [address] [place] Lymphocytes/100 WBC (Bld) 43.4 % Normal [facility] Comment on above: Order Comment: Speci men Type: BLOOD SPECIMENOrdering Facility: [facility] Address: [address] [place] [address] Performed By: #### 5 7021-8 ####[facility] LABCLIA [id number] [place] [address] [place] MCH (RBC) [Entitic mass] 32.3 pg Normal 26.0-34.0 [facility] Comment on above: Order Comment: Speci men Type: BLOOD SPECIMENOrdering Facility: [facility] Address: [address] [place] [address] Performed By: #### 5 7021-8 ####[facility] LABCLIA [id number] [place] [address] [place] MCHC (RBC) [Mass/Vol] 33.6 g/dL Normal 30.5-36.0 [facility] Comment on above: Order Comment: Speci men Type: BLOOD SPECIMENOrdering Facility: [facility] Address: [address] [place] [address] Performed By: #### 5 7021-8 ####[facility] LABCLIA [id number] [place] [address] [place] MCV (RBC) [Entitic vol] 96.1 fL Normal 80.0-100.0 [facility] Comment on above: Order Comment: Speci men Type: BLOOD SPECIMENOrdering Facility: [facility] Address: [address] [place] [address] Performed By: #### 5 7021-8 ####[facility] LABCLIA [id number] [place] [address] [place] Monocytes (Bld) [#/Vol] 0.68 10*3/uL Normal <0.87 [facility] Comment on above: Order Comment: Speci men Type: BLOOD SPECIMENOrdering Facility: [facility] Address: [address] [place] [address] Performed By: #### 5 7021-8 ####[facility] LABCLIA [id number] [place] [address] [place] Monocytes/100 WBC (Bld) 9.5 % Normal [facility] Comment on above: Order Comment: Speci men Type: BLOOD SPECIMENOrdering Facility: [facility] Address: [address] [place] [address] Performed By: #### 5 7021-8 ####[facility] LABCLIA [id number] [place] [id number] [place] Neutrophils (Bld) [#/Vol] 2.93 10*3/uL Normal 1.45-7.50 [facility] Comment on above: Order Comment: Speci men Type: BLOOD SPECIMENOrdering Facility: [facility] Address: [address] [place] [address] Performed By: #### 5 7021-8 ####[facility] LABCLIA [id number] [place] [address] [place] Neutrophils/100 WBC (Bld) 40.6 % Normal [facility] Comment on above: Order Comment: Speci men Type: BLOOD SPECIMENOrdering Facility: [facility] Address: [address] [place] [address] Performed By: #### 5 7021-8 ####[facility] LABCLIA [id number] [place] [address] [place] Nucleated RBC (Bld) [#/Vol] 10*3/uL Normal <0.01 [facility] Comment on above: Order Comment: Speci men Type: BLOOD SPECIMENOrdering Facility: [facility] Address: [address] [place] [address] Performed By: #### 5 7021-8 ####[facility] LABCLIA [id number] [place] [id number] [place] Nucleated RBC/100 WBC (Bld) [Ratio] 0.0 /100 WBC Normal [facility] Comment on above: Order Comment: Speci men Type: BLOOD SPECIMENOrdering Facility: [facility] Address: [address] [place] [address] Performed By: #### 5 7021-8 ####[facility] LABCLIA [id number] [place] [address] [place] Platelet mean volume (Bld) [Entitic vol] 12.0 fL Normal 9.0-12.7 [facility] Comment on above: Order Comment: Speci men Type: BLOOD SPECIMENOrdering Facility: [facility] Address: [address] [place] [address] Performed By: #### 5 7021-8 ####[facility] LABIA [id number] [place] [address] [place] Platelets (Bld) [#/Vol] 157 10*3/uL Normal 150-400 [facility] Comment on above: Order Comment: Speci men Type: BLOOD SPECIMENOrdering Facility: [facility] Address: [address] [place] [address] Performed By: #### 5 7021-8 ####[facility] LABIA [id number] [place] [address] [place] RBC (Bld) [#/Vol] 4.67 10*6/uL Normal 4.20-6.00 [facility] Comment on above: Order Comment: Speci men Type: BLOOD SPECIMENOrdering Facility: [facility] Address: [address] [place] [address] Performed By: #### 5 7021-8 ####[facility] LABIA [id number] [place] [address] [place] WBC (Bld) [#/Vol] 7.19 10*3/uL Normal 3.70-11.00 [facility] Comment on above: Order Comment: Speci men Type: BLOOD SPECIMENOrdering Facility: [facility] Address: [address] [place] [address] Performed By: #### 5 7021-8 ####[facility] LABIA [id number] [place] [address] [place] Comprehensive metabolic 2000 panelon 01-31-2024 Albumin [Mass/Vol] 4.2 g/dL Normal 3.9-4.9 [facility] Comment on above: Order Comment: Speci men Type: BLOOD SPECIMENOrdering Facility: [facility] Address: [address] [place] [address] Performed By: #### 3 016-3, 9, 71734-3, LIPNF ####[facility] LABCLIA [id number] [place] [address] [place] ALP [Catalytic activity/Vol] 97 U/L Normal 38-113 [facility] Comment on above: Order Comment: Speci men Type: BLOOD SPECIMENOrdering Facility: [facility] Address: [address] [place] [address] Performed By: #### 3 016-3, 2132-04, , LIPNF ####[facility] LABCLIA [id number] [place] [address] [place] ALT [Catalytic activity/Vol] 41 U/L Normal 10-54 [facility] Comment on above: Order Comment: Speci men Type: BLOOD SPECIMENOrdering Facility: [facility] Address: [address] [place] [address] Performed By: #### 3 016-3, 2132-04, , LIPNF ####[facility] LABCLIA [id number] [place] [address] [place] Anion gap [Moles/Vol] 11 mmol/L Normal 8-15 [facility] Comment on above: Order Comment: Speci men Type: BLOOD SPECIMENOrdering Facility: [facility] Address: [address] [place] [address] Performed By: #### 3 016-3, 9, , LIPNF ####[facility] LABCLIA [id number] [place] [address] [place] AST [Catalytic activity/Vol] 34 U/L Normal 14-40 [facility] Comment on above: Order Comment: Speci men Type: BLOOD SPECIMENOrdering Facility: [facility] Address: [address] [place] [address] Performed By: #### 3 016-3, 2132-04, , LIPNF ####[facility] LABCLIA [id number] [place] [address] [place] Bilirubin [Mass/Vol] 0.6 mg/dL Normal 0.2-1.3 [facility] Comment on above: Order Comment: Speci men Type: BLOOD SPECIMENOrdering Facility: [facility] Address: [address] [place] [address] Performed By: #### 3 016-3, 2132-04, , LIPNF ####[facility] LABCLIA [id number] [place] [address] [place] Calcium [Mass/Vol] 9.4 mg/dL Normal 8.5-10.2 [facility] Comment on above: Order Comment: Speci men Type: BLOOD SPECIMENOrdering Facility: [facility] Address: [address] [place] [address] Performed By: #### 3 016-3, 2132-04, , LIPNF ####[facility] LABCLIA [id number] [place] [address] [place] Chloride [Moles/Vol] 105 mmol/L Normal 98-107 [facility] Comment on above: Order Comment: Speci men Type: BLOOD SPECIMENOrdering Facility: [facility] Address: [address] [place] [address] Performed By: #### 3 016-3, 2132-04, , LIPNF ####[facility] LABCLIA [id number] [place] [id number] [place] CO2 [Moles/Vol] 24 mmol/L Normal 22-30 [facility] Comment on above: Order Comment: Speci men Type: BLOOD SPECIMENOrdering Facility: [facility] Address: [address] [place] [address] Performed By: #### 3 016-3, 2132-04, , LIPNF ####[facility] LABCLIA [id number] [place] [address] [place] Creatinine [Mass/Vol] 0.77 mg/dL Normal 0.73-1.22 [facility] Comment on above: Order Comment: Speci men Type: BLOOD SPECIMENOrdering Facility: [facility] Address: [address] [place] [address] Performed By: #### 3 016-3, 2132-04, , LIPNF ####[facility] LABCLIA [id number] [place] [address] [place] Creatinine and Glomerular filtration rate.predicted panel (S/P/Bld) 89 mL/min/1.73m??? Normal >=60 [facility] Comment on above: Order Comment: Speci men Type: BLOOD SPECIMENOrdering Facility: [facility] Address: [address] [place] [address] Result Comment: Janae mated Glomerular Filtration Rate [...] By: #### 3 016-3, 2132-04, , LIPNF ####[facility] LABCLIA [id number] [place] [address] [place] Glucose [Mass/Vol] 99 mg/dL Normal 74-99 [facility] Comment on above: Order Comment: Speci men Type: BLOOD SPECIMENOrdering Facility: [facility] Address: [address] [place] [address] Result Comment: The [place] [employer] (ADA) provides guidance for cutoff [...] Standards of Medical Care in Diabetes 2016, [place] [employer]. Diabetes Care. 2016.39(Suppl 1). Performed By: #### 3 016-3, 2132-04, , LIPNF ####[facility] LABCLIA [id number] [place] [address] [place] Potassium [Moles/Vol] 4.3 mmol/L Normal 3.7-5.1 [facility] Comment on above: Order Comment: Speci men Type: BLOOD SPECIMENOrdering Facility: [facility] Address: [address] [place] [address] Performed By: #### 3 016-3, 2132-04, , LIPNF ####[facility] [facility] [id number] [place] [address] [place] Protein [Mass/Vol] 6.9 g/dL Normal 6.3-8.0 [facility] Comment on above: Order Comment: Speci men Type: BLOOD SPECIMENOrdering Facility: [facility] Address: [address] [place] [address] Performed By: #### 3 016-3, 2132-04, , LIPNF ####[facility] [id number] [place] [id number] [place] Sodium [Moles/Vol] 140 mmol/L Normal 136-144 [facility] Comment on above: Order Comment: Speci men Type: BLOOD SPECIMENOrdering Facility: [facility] Address: [address] [place] [address] Performed By: #### 3 016-3, 2132-04, , LIPNF ####[facility] [id number] [address] [address] [place] Urea nitrogen [Mass/Vol] 23 mg/dL Normal 9-24 [facility] Comment on above: Order Comment: Murphyi men Type: BLOOD SPECIMENOrdering Facility: [facility] Address: [address] [place] [address] Performed By: #### 3 016-3, 2132-04, , LIPNF ####[facility] [id number] [place] [address] [place] HbA1c (Bld)on 01-31-2024 Average glucose Estimated from glycated hemoglobin (Bld) [Mass/Vol] 120 mg/dL Normal [facility] Comment on above: Order Comment: [facility] Type: BLOOD SPECIMENOrdering Facility: [facility] Address: [address] [place] [address] Result Comment: eAG: (Estimated average glucose) is a calculated value from HgbA1c and is inbound customer service representative of the average blood glucose level in the last 2-3 month period. Performed By: #### 5 5454-3 ####[facility] LABIA [id number] [place] [address] [place] HbA1c (Bld) [Mass fraction] 5.8 % High 4.3-5.6 [facility] Comment on above: Order Comment: [facility] Type: BLOOD SPECIMENOrdering Facility: [facility] Address: [address] [place] [address] Result Comment: Amer ican Diabetes Association guidelines indicate that patients with HgbA1c in the range 5.7-6.4% are at increased risk for development of diabetes, and intervention by lifestyle modification may be beneficial. HgbA1c greater or equal to 6.5% is considered diagnostic of diabetes. Performed By: #### 5 5454-3 ####[facility] [id number] [address] [place] LIPID PANEL, NONFASTINGon Cholesterol [Mass/Vol] 106 mg/dL Normal <200 [facility] Comment on above: Order Comment: Speci men Type: BLOOD SPECIMENOrdering Facility: [facility] Address: [address] [place] [address] Result Comment: <200 mg/dL, Desirable 200-239 mg/dL, Borderline high >239 mg/dL, High Performed By: #### 3 016-3, 2132-04, , LIPNF ####[facility] [id number] [address] [place] HDL CHOLESTEROL, NF 45 mg/dL Normal >39 [facility] Comment on above: Order Comment: Speci men Type: BLOOD SPECIMENOrdering Facility: [facility] Address: [address] [place] [address] Result Comment: 40-5 9 mg/dL, Acceptable >59 mg/dL, High: Negative risk factor for coronary heart disease <40 mg/dL, Low: Positive risk factor for coronary heart disease Performed By: #### 3 016-3, 2132-04, , LIPNF ####[facility] [id number] [address] [place] LDL CHOLESTEROL, NF 48 mg/dL Normal <100 [facility] Comment on above: Order Comment: Speci men Type: BLOOD SPECIMENOrdering Facility: [facility] Address: [address] [place] [address] Result Comment: <100 mg/dL, Optimal 100-129 mg/dL, Near optimal/above optimal 130-159 mg/dL, Borderline high 160-189 mg/dL, High >189 mg/dL, Very high Secondary prevention optimal LDL Cholesterol levels are recommended to be < 70 mg/dL Performed By: #### 3 016-3, 2132-04, 00867-2, LIPNF ####[facility]IA [id number] [place] [address] [place] LDL/HDL RATIO, NF 1.07 mg/dL Normal <2.54 [facility] Comment on above: Order Comment: Speci men Type: BLOOD SPECIMENOrdering Facility: [facility] Address: [address] [place] [address] Result Comment: Refe rence: 1. National Cholesterol Education Program ATP III Guideline At-A-Glance Quick Desk Reference: National Heart, Lung, and Blood [place]. National Institutes of Health. 2001: NIH Publication No. 01-3305. 2. An International Atherosclerosis Society position paper: global recommendations for the management of dyslipidemia: executive summary, Atherosclerosis. 2014: 232(2):410-413. Performed By: #### 3 016-3, 2132-04, 72395-8, LIPNF ####[facility] [id number] [place] [address] [place] NON HDL CHOL, NF 61 mg/dL Normal <130 [facility] Comment on above: Order Comment: Speci men Type: BLOOD SPECIMENOrdering Facility: [facility] Address: [address] [place] [address] Result Comment: <130 mg/dL, Optimal 130-159 mg/dL, Near optimal/above optimal 160-189 mg/dL, Borderline high 190-219 mg/dL, High >219 mg/dL, Very high Secondary prevention optimal non HDL Cholesterol levels are recommended to be <100 mg/dL Performed By: #### 3 016-3, 2132-04, 41841-9, LIPNF ####[facility] [id number] [address] [place] T CHOL/HDL RATIO NF 2.36 mg/dL Normal <5.10 [facility] Comment on above: Order Comment: Speci men Type: BLOOD SPECIMENOrdering Facility: [facility] Address: [address] [place] [address] Performed By: #### 3 016-3, 2132-04, , LIPNF ####[facility] [id number] [place] [address] [place] TRIGLYCERIDES, NF 63 mg/dL Normal <150 [facility] Comment on above: Order Comment: Speci men Type: BLOOD SPECIMENOrdering Facility: [facility] Address: [address] [place] [address] Result Comment: <150 mg/dL, Normal 150-199 mg/dL, Borderline high 200-499 mg/dL, High >499 mg/dL, Very high Performed By: #### 3 016-3, 2132-04, , LIPNF ####[facility] LABIA [id number] [place] [address] [place] VLDL CHOLESTEROL, NF 13 mg/dL Normal <30 [facility] Comment on above: Order Comment: Speci men Type: BLOOD SPECIMENOrdering Facility: [facility] Address: [address] [place] [address] Performed By: #### 3 016-3, 2132-04, , LIPNF ####[facility] [id number] [place] [address] [place] TSH SerPl-aCncon 01-31-2024 TSH Qn 2.670 m[IU]/L Normal 0.270-4.200 [facility] Comment on above: Order Comment: Speci men Type: BLOOD SPECIMENOrdering Facility: [facility] Address: [address] [place] [address] Performed By: #### 3 016-3, 2132-04, , LIPNF ####[facility] [id number] [place] [address] [place] Urinalysis complete panel (U )on 01-31-2024 Bacteria LM.HPF (Urine sed) [#/Area] Negative Normal Negative [facility] Comment on above: Order Comment: Speci men Type: URINE SPECIMEN [facility] Address: [address] [place] [address] Performed By: #### 2 4356-8 #### [facility] CLIA [id number] [address] [place] [address] [place] Bilirubin Ql (U) Negative Normal Negative [facility] Comment on above: Order Comment: Speci men Type: URINE SPECIMEN [facility] Address: [address] [place] [address] Performed By: #### 2 4356-8 #### [facility] CLIA [id number] [address] [place] [address] [place] Clarity (Unsp spec) Clear Normal Clear [facility] Comment on above: Order Comment: Speci men Type: URINE SPECIMEN [facility] Address: [address] [place] [address] Performed By: #### 2 4356-8 #### [facility] CLIA [id number] [address] [place] [address] [place] Color (U) Yellow Normal Yellow [facility] Comment on above: Order Comment: Speci men Type: URINE SPECIMEN [facility] Address: [address] [place] [address] Performed By: #### 2 4356-8 #### [facility] CLIA [id number] [address] [place] [address] [place] Epithelial cells LM.HPF (Urine sed) [#/Area] None Seen Normal [facility] Comment on above: Order Comment: Speci men Type: URINE SPECIMEN [facility] Address: [address] [place] [address] Performed By: #### 2 4356-8 #### [facility] CLIA [id number] [address] [place] [address] [place] Glucose Test strip (U) [Mass/Vol] Negative Normal Negative [facility] Comment on above: Order Comment: Speci men Type: URINE SPECIMEN [facility] Address: [address] [place] [address] Performed By: #### 2 4356-8 #### [facility] CLIA [id number] [address] [place] [address] [place] Hemoglobin Ql (U) Negative Normal Negative [facility] Comment on above: Order Comment: Speci men Type: URINE SPECIMEN [facility] Address: [address] [place] [address] Performed By: #### 2 4356-8 #### [facility] CLIA [id number] [address] [place] [address] [place] Hyaline casts (Urine sed) [#/Area] 0 /[LPF] Normal 0 /LPF [facility] Comment on above: Order Comment: Speci men Type: URINE SPECIMEN [facility] Address: [address] [place] [address] Performed By: #### 2 4356-8 #### [facility] CLIA [id number] [address] [place] [address] [place] Ketones Ql (U) Negative Normal Negative [facility] Comment on above: Order Comment: Speci men Type: URINE SPECIMEN [facility] Address: [address] [place] [address] Performed By: #### 2 4356-8 #### [facility] CLIA [id number] [address] [place] [address] [place] Leukocyte esterase Test strip Ql (U) Negative Normal Negative [facility] Comment on above: Order Comment: Speci men Type: URINE SPECIMEN [facility] Address: [address] [place] [address] Performed By: #### 2 4356-8 #### [facility] CLIA [id number] [address] [place] [address] [place] Nitrite Ql (U) Negative Normal Negative [facility] Comment on above: Order Comment: Speci men Type: URINE SPECIMEN [facility] Address: [address] [place] [address] Performed By: #### 2 4356-8 #### [facility] CLIA [id number] [address] [place] [address] [place] pH (U) 6.0 [pH] Normal <8.5 [facility] Comment on above: Order Comment: Speci men Type: URINE SPECIMEN [facility] Address: [address] [place] [address] Performed By: #### 2 4356-8 #### [facility] CLIA [id number] [address] [place] [address] [place] Protein (U) [Mass/Vol] Negative Normal Negative [facility] Comment on above: Order Comment: Speci men Type: URINE SPECIMEN [facility] Address: [address] [place] [address] Performed By: #### 2 4356-8 #### [facility] CLIA [id number] [address] [place] [address] [place] RBC LM.HPF (Urine sed) [#/Area] 0-2 /HPF Normal 0-2 /HPF [facility] Comment on above: Order Comment: Speci men Type: URINE SPECIMEN [facility] Address: [address] [place] [address] Performed By: #### 2 4356-8 #### [facility] CLIA [id number] [address] [place] [address] [place] Specific gravity (U) [Rel density] 1.020 Normal 1.005-1.030 [facility] Comment on above: Order Comment: Speci men Type: URINE SPECIMEN [facility] Address: [address] [place] [address] Performed By: #### 2 4356-8 #### [facility] CLIA [id number] [address] [place] [address] [place] Urobilinogen Ql (U) 0.2 EU/dL Normal 0.2-1.0 EU/dL [facility] Comment on above: Order Comment: Speci men Type: URINE SPECIMEN [facility] Address: [address] [place] [address] Performed By: #### 2 4356-8 #### [facility] CLIA [id number] [address] [place] [address] [place] WBC LM.HPF (Urine sed) [#/Area] 0-5 /HPF Normal 0-5 /HPF [facility] Comment on above: Order Comment: Speci men Type: URINE SPECIMEN [facility] Address: [address] [place] [address] Performed By: #### 2 4356-8 #### [facility] CLIA [id number] [address] [place] [address] [place] Vit B12 SerPl-mCncon 024 Cobalamin (Vitamin B12) [Mass/Vol] 414 pg/mL Normal 232-1245 [facility] Comment on above: Order Comment: Speci men Type: BLOOD SPECIMENOrdering Facility: [facility] Address: [address] [place] [address] Performed By: #### 3 016-3, 2132-9, 13775-3, LIPNF ####[facility] LABCLIA [id number] [place] [address] [place] XR CHEST 2V [...] unremarkable exam with no acute radiographic abnormality. Medical Physics Researcher: PSCB Transcribe Date/Time: Feb 02 2024 10:25A Dictated by : MAGO RAINEY MD This examination was interpreted and the report reviewed and electronically signed by: MAGO RAINEY MD on Feb 02 2024 10:26AM EST [id number] N Normal [facility] XR Chest PA and Lateralon Radiology Study observation (narrative) [facility] .Auto Diffon 01-27-2024 Basophil, Absolute 0.0 10 3/mcL Normal 0.0-0.2 [facility] ([place]) Comment on above: Performed By: #### A JAMIEELLA, CBC, GFR, ADIFF, ABSGEL, BMP, ALB #### [address] [address] Basophils/100 WBC (Bld) 0.4 % Normal 0.0-2.5 [facility] ([place]) Comment on above: Performed By: #### A BOGEL ANEU, CBC, GFR, ADIFF, ABSGEL, BMP, ALB #### [address] [address] Eosinophil, Absolute 0.4 10 3/mcL Normal 0.0-0.4 [facility] ([place]) Comment on above: Performed By: #### A BOGEL ANEU, CBC, GFR, ADIFF, ABSGEL, BMP, ALB #### [address] [address] Eosinophils/100 WBC (Bld) 5.5 % Normal 0.0-7.0 [facility] ([place]) Comment on above: Performed By: #### A BOGEL, ANEU, CBC, GFR, ADIFF, ABSGEL, BMP, ALB #### [address] [address] Lymphocyte, Absolute 2.7 10 3/mcL Normal 0.8-3.9 [facility] ([place]) Comment on above: Performed By: #### A BOGEL, ANEU, CBC, GFR, ADIFF, ABSGEL, BMP, ALB #### [address] [address] Lymphocytes/100 WBC (Bld) 40.8 % Normal 10.0-50.0 [facility] ([place]) Comment on above: Performed By: #### A BOGEL, ANEU, CBC, GFR, ADIFF, ABSGEL, BMP, ALB #### [address] [address] Monocyte, Absolute 0.7 10 3/mcL Normal 0.2-1.0 [facility] ([place]) Comment on above: Performed By: #### A BOGEL, ANEU, CBC, GFR, ADIFF, ABSGEL, BMP, ALB #### [address] [address] Monocytes/100 WBC (Bld) 10.3 % Normal 1.7-13.0 [facility] ([place]) Comment on above: Performed By: #### A BOGEL, ANEU, CBC, GFR, ADIFF, ABSGEL, BMP, ALB #### [address] [address] Neutrophils/100 WBC (Bld) 43.0 % Normal 37.0-80.0 [facility] ([place]) Comment on above: Performed By: #### A BOGEL, ANEU, CBC, GFR, ADIFF, ABSGEL, BMP, ALB #### [address] [address] .GFRon 01-27-2024 GFR 121 ml/min/1.73sqm Normal [facility] ([place]) Comment on above: Result Comment: GFR Population [...] CBC, GFR, ADIFF, ABSGEL, BMP, ALB #### [address] [address] GFR Non- 100 ml/min/1.73sqm Normal [facility] ([place]) Comment on above: Result Comment: GFR Population [...] CBC, GFR, ADIFF, ABSGEL, BMP, ALB #### [address] [address] .NEUABSon 01-27-2024 Neutrophil, Absolute 2.9 10 3/mcL Normal 2.9-6.2 [facility] ([place]) Comment on above: Performed By: #### A BOGEL, ANEU, CBC, GFR, ADIFF, ABSGEL, BMP, ALB #### [address] [address] ABO/Rh (Gel)on 01-27-2024 ABO/Rh Interp Positive Invalid Interpretation Code [facility] ([place]) Comment on above: Order Comment: SURG PEPITO 7/16 -AC Performed By: #### A BOGEL, ANEU, CBC, GFR, ADIFF, ABSGEL, BMP, ALB #### [address] [address] ABS (Gel)on 01-27-2024 ABSC Interp (Gel) Negative Normal [facility] ([place]) Comment on above: Order Comment: SURG PEPITO 7/16 -AC Performed By: #### A BOGEL, ANEU, CBC, GFR, ADIFF, ABSGEL, BMP, ALB #### [address] [address] ALBon 01-27-2024 Albumin Level 3.9 G/dL Normal 3.4-4.8 [facility] ([place]) Comment on above: Performed By: #### A JAMIEEL, ANEU, CBC, GFR, ADIFF, ABSGEL, BMP, ALB #### [address] [address] BMPon 01-27-2024 BUN/Creatinine Ratio 28 ratio High 7-27 [facility] ([place]) Comment on above: Performed By: #### A BOGEL, ANEU, CBC, GFR, ADIFF, ABSGEL, BMP, ALB #### [address] [address] Calcium [Mass/Vol] 8.8 mg/dL Normal 8.4-10.2 [facility] ([place]) Comment on above: Performed By: #### A BOGEL, ANEU, CBC, GFR, ADIFF, ABSGEL, BMP, ALB #### [address] [address] Chloride [Moles/Vol] 104 mmol/L Normal 98-107 [facility] ([place]) Comment on above: Performed By: #### A BOGEL, ANEU, CBC, GFR, ADIFF, ABSGEL, BMP, ALB #### [address] [address] CO2 [Moles/Vol] 30 mmol/L Normal 23-31 [facility] ([place]) Comment on above: Performed By: #### A BOGEL, ANEU, CBC, GFR, ADIFF, ABSGEL, BMP, ALB #### [address] [address] Creatinine [Mass/Vol] 0.75 mg/dL Normal 0.70-1.30 [facility] ([place]) Comment on above: Performed By: #### A BOGEL, ANEU, CBC, GFR, ADIFF, ABSGEL, BMP, ALB #### [address] [address] Electrolyte Balance 7.0 mEq/L Normal 4.0-15.0 [facility] ([place]) Comment on above: Performed By: #### A BOGEL, ANEU, CBC, GFR, ADIFF, ABSGEL, BMP, ALB #### [address] [address] Glucose [Mass/Vol] 113 mg/dL High 83-110 [facility] ([place]) Comment on above: Performed By: #### A BOGEL, ANEU, CBC, GFR, ADIFF, ABSGEL, BMP, ALB #### [address] [address] Potassium [Moles/Vol] 4.4 mmol/L Normal 3.5-5.1 [facility] ([place]) Comment on above: Performed By: #### A BOGEL, ANEU, CBC, GFR, ADIFF, ABSGEL, BMP, ALB #### [address] [address] Sodium [Moles/Vol] 141 mmol/L Normal 136-145 [facility] ([place]) Comment on above: Performed By: #### A BOGEL, ANEU, CBC, GFR, ADIFF, ABSGEL, BMP, ALB #### [address] [address] Urea nitrogen [Mass/Vol] 21 mg/dL High 7-18 [facility] ([place]) Comment on above: Performed By: #### A BOGEL, ANEU, CBC, GFR, ADIFF, ABSGEL, BMP, ALB #### [address] [address] CBCon 01-27-2024 Erythrocyte distribution width (RBC) [Ratio] 13.8 % Normal 11.5-14.5 [facility] ([place]) Comment on above: Order Comment: Pre-A dmission Testing Performed By: #### A BOGEL, ANEU, CBC, GFR, ADIFF, ABSGEL, BMP, ALB #### [place] [address] Hematocrit (Bld) [Volume fraction] 43.2 % Normal 42.0-52.0 [facility] ([place]) Comment on above: Order Comment: Pre-A dmission Testing Performed By: #### A BOGEL, ANEU, CBC, GFR, ADIFF, ABSGEL, BMP, ALB #### [place] [address] Hgb 15.2 G/dL Normal 14.0-18.0 [facility] ([place]) Comment on above: Order Comment: Pre-A dmission Testing Performed By: #### A BOGEL, ANEU, CBC, GFR, ADIFF, ABSGEL, BMP, ALB #### [address] [address] MCH (RBC) [Entitic mass] 33.8 pg High 27.0-31.2 [facility] ([place]) Comment on above: Order Comment: Pre-A dmission Testing Performed By: #### A BOGEL, ANEU, CBC, GFR, ADIFF, ABSGEL, BMP, ALB #### [place] [id number] MCHC 35.1 G/dL Normal 31.8-35.4 [facility] ([place]) Comment on above: Order Comment: Pre-A dmission Testing Performed By: #### A BOGEL, ANEU, CBC, GFR, ADIFF, ABSGEL, BMP, ALB #### [address] [address] MCV (RBC) [Entitic vol] 96.3 fL High 80.0-94.0 [facility] ([place]) Comment on above: Order Comment: Pre-A dmission Testing Performed By: #### A BOGEL, ANEU, CBC, GFR, ADIFF, ABSGEL, BMP, ALB #### [address] [address] Platelet 147 10 3/mcL Normal 130-400 [facility] ([place]) Comment on above: Order Comment: Pre-A dmission Testing Performed By: #### A BOGEL, ANEU, CBC, GFR, ADIFF, ABSGEL, BMP, ALB #### [address] [address] Platelet mean volume (Bld) [Entitic vol] 10.2 fL Normal 7.4-10.4 [facility] ([place]) Comment on above: Order Comment: Pre-A dmission Testing Performed By: #### A BOGEL, ANEU, CBC, GFR, ADIFF, ABSGEL, BMP, ALB #### [address] [address] RBC 4.49 10 6/mcL Normal 4.04-6.13 [facility] ([place]) Comment on above: Order Comment: Pre-A dmission Testing Performed By: #### A BOGEL, ANEU, CBC, GFR, ADIFF, ABSGEL, BMP, ALB #### [address] [address] WBC 6.7 10 3/mcL Normal 4.6-10.8 [facility] ([place]) Comment on above: Order Comment: Pre-A dmission Testing Performed By: #### A BOGEL, ANEU, CBC, GFR, ADIFF, ABSGEL, BMP, ALB #### [address] [address] [address] KNEE W/O CONTRAST LEFTon 01-27-2024 CT [...] 01/27/2024 1:37:20 PM Ordering Provider: DEAN Rivas [facility] ([place]) LABORATORYOrdered By: Reg Heck on 01-27-2024 ABO [...] Comment on above: Result Comment: [place] [id number] MRSA PCR Int MRSA DNA not detecte [...] MRSA (PCR) Not detected Normal Not Detected [facility] ([place]) Comment on above: Result Comment: [place] [id number] Performed By: #### A LA BULLOCK, CBC, GFR, ADIFF, ABSGEL, BMP, ALB #### [address] [address] MRSA PCR Int Normal [facility] ([place]) Comment on above: Result Comment: MRSA DNA [...] CBC, GFR, ADIFF, ABSGEL, BMP, ALB #### [place] [id number] [place], [place] [address] CNOVon 12-31-2023 CNOV Office Visit (FAMPWS ) SONIYA COOLEY ([id number]) 1940 M Date Time Provider Department 12/31/23 10:40 AM ONIEL FRANCIS During your visit today, we recorded the following information about you: Temperature Pulse Respiration Blood pressure 97.5 degrees 58/minute 16/minute 120/82 Weight 90.7 kg nOiel Francis MD 12/31/2023 7:09 PM Signed Chief [...] () Meniscus tear 12/27/2015 Right, minimal. [facility]en [facility] Microscopic hematuria 01/10/2021 Saw Luciano 02/2021 [...] 09/14/2020 R (more content not included)... Normal [facility] CNOVon 12-23-2023 CNOV Office Visit (CAWSTR ) SONIYA COOLEY ([id number]) 1940 M Date Time Provider Department 12/23/23 3:40 PM MARJ MACKEY [facility] During your visit today, we recorded the following information about you: Pulse Blood pressure Weight Height 57/minute 119/72 89.2 kg 1.702 m Marj Mackey MD 12/23/2023 4:30 PM Signed [facility] Cardiology (Lamont Guzmanwerich [place]) [address] [facility] [id number] OUTPATIENT VISIT DATE 12/23/2023 PRIMARY CARE PHYSICIAN: Oniel Francis [address] [place] [address] HISTORY OF PRESENT ILLNESS: Mr. Cooley is [...] VEIN , (more content not included)... Normal [facility] [id number] 12-23-2023 ECG01 Ventricular Rate : 6 8 BPM Atrial Rate : 68 BPM P-R Interval : 216 ms QRS Duration : 106 ms Q-T Interval : 404 ms QTC Calculation(Bazett) : 429 ms Calculated P [place] : 73 degrees Calculated R [place] : 32 degrees Calculated T [place] : 83 degrees SINUS RHYTHM WITH 1ST DEGREE AV BLOCK WITH PREMATURE SUPRAVENTRICULAR COMPLEXES AND WITH OCCASIONAL PREMATURE VENTRICULAR COMPLEXES NONSPECIFIC ST ABNORMALITY ABNORMAL ECG Confirmed by MD HANNAH, DILIP () on 12/24/2023 8:16:59 AM NAME : SONIYA COOLEY PID : [id number] : 1940 Gender : Male Race : [...] MARJ MACKEY Acquired by : Evelyn MONROY [facility]ON[facility]OO[facility] ([id number]) 1940 M Date Time Provider Department 12/16/23 [facility] During your visit today, we recorded [...] Pt reports he was told by the health advocate that they almost lost him due to [...] (FLONASE) 50 mcg/actuation nasal spray Use 1 Rigby in each nostril once daily. 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 Normal [facility] CNOVon 12-14-2023 CNOV Office Visit (UCWSTR ) RITAANNE BLUELIE Ella ([id number]) 1940 M Date Time Provider Department 12/14/23 11:15 AM SHAMAR BARLOW [facility] During your visit today, we recorded the following information about you: Temperature Pulse Respiration Blood pressure 96.2 degrees 62/minute 16/minute 120/62 Weight 91.1 kg Shamar Barlow APRN.TEMPORARY ADMINISTRATIVE ASSISTANT 12/14/2023 1:47 PM Signed CC: Patient presents [...] 03/24/2010 Normal, (more content not included)... Normal [facility] XR CHEST 2V FRONTAL/LATon XR CHEST [...] in the left midlung. Consider short-term follow-up. Medical Physics Researcher: PSCB Transcribe Date/Time: Dec 14 2023 1:30P Dictated by : JAGUAR GONZALES MD This examination was interpreted and the report reviewed and electronically signed by: JAGUAR GONZALES MD on Dec 14 2023 1:32PM EST [id number] N Normal [facility] XR Chest PA and Lateralon IMPRESSION: Questionable vague hazy opacity in the left midlung. Consider short-term follow-up. Medical Physics Researcher: GEOFFREY Transcribe Date/Time: Dec 14 2023 1:30P [...] from median sternotomy. DIVISION OF RADIOLOGY [facility] * * *Final [...] in the left midlung. Consider short-term follow-up. Medical Physics Researcher: PSCB Transcribe Date/Time: Dec 14 2023 1:30P Dictated by : JAGUAR GONZALES MD This examination was interpreted and the report reviewed and electronically signed by: JAGUAR GONZALES MD on Dec 14 2023 1:32PM EST [facility] Radiology Study observation (narrative) [facility] XR Chest PA and LateralOrder ed By: Ccf Provider on 12-14-2023 [facility] TSH BLDon 06-23-2022 TSH Qn 1.610 m[IU]/L 0.270 - 4.200 mIU/L [facility] HbA1c (Bld)on 06-22-2022 Average glucose Estimated from glycated hemoglobin (Bld) [Mass/Vol] 117 mg/dL [facility] HbA1c (Bld) [Mass fraction] 5.7 % High 4.3 - 5.6 % [facility] CNPGay 12-16-2020 CNP[facility] Telephone (CODY) SONIYA COOLEY ([id number]) 1940 M Date Time Provider Department 12/16/20 ABBY PATE During your visit today, we recorded the following information about you: Michelle Blackmon Ma 12/16/2020 4:00 PM Signed Physical Therapy order faxed to Amy at [facility] PT at [phone]. Michelle Blackmon OPERATIONS MGR ([facility]) Allergies As of Date: 12/16/2020 Noted Allergy Reaction IODINE 10/09/2002 14 - Other: See Comments Comments: ?decreased BP with iodinated contrast during a cardiac cath. Pt reports he was told by the health advocate that they almost lost him due to [...] * FLUTICASONE PROPIONATE 50 MCG* Use 1 Rigby in each nostril o* CHOLECALCIFEROL (VITAMIN D3) [...] Status:Closed by MICHELLE BLACKMON MA on 12/16/20 [facility] WILLIAMon 10-06-2020 CNOV Office Visit (ERASMOMarcus ) RITASONIYA BLUE ([id number]) 1940 M Date Time Provider Department 10/06/20 [...] (FLONASE) 50 mcg/actuation nasal spray Use 1 Rigby in each nostril once daily. Rinse mouth [...] Mildly decreased (more content not included)... Normal [facility] CNOVon 06-03-2020 [facility] Office Visit (CODY ) SONIYA COOLEY ([id number]) 1940 M Date Time Provider Department 06/03/20 [...] (FLONASE) 50 mcg/actuation nasal spray Use 1 Rigby in each nostril once daily. Rinse mouth [...] Last Medication (more content not included)... Normal [facility] INR, POCT Whole Bloodon 08-07 INR Coag RelTime (Bld) 1.40 {INR} High 0.90-1.10 [facility] Comment on above: Result Comment: Brayan dard Therapy 2.0-3.0 High Dose 2.5-3.5 Performed By: #### P INR #### [facility] [address] [id number] Vital Signs Date Time Vital Sign Value Performing Clinician Facility 01-18-2025 15:22-0400 Body height 170.[address] Oniel Francis MD Work Phone: [facility] 09-11-2024 14:46-0500 Body height 170.2 cm Abby aPte MD Work Phone: [facility] 09-11-2024 14:46-0500 Body mass index (BMI) [Ratio] 32.49 kg/m2 Abby Pate MD Work Phone: [facility] 09-11-2024 14:46-0500 Body weight 94.1 kg Abby Pate MD Work Phone: [facility] 09-11-2024 14:46-0500 Diastolic blood pressure 88 mm[Hg] Abby Pate MD Work Phone: [facility] 09-11-2024 14:46-0500 Heart rate 68 /min Abby Pate MD Work Phone: [facility] 09-11-2024 14:46-0500 SaO2% (BldA) [Mass fraction] 93 % Abby Pate MD Work Phone: [facility] 09-11-2024 14:46-0500 Systolic blood pressure 150 mm[Hg] Abby Pate MD Work Phone: [facility] 08-31-2024 15:43-0500 Body height 170.2 cm Marj Mackey MD Work Phone: [facility] 08-31-2024 15:43-0500 Body mass index (BMI) [Ratio] 31.48 kg/m2 Marj Mackey MD Work Phone: [facility] 08-31-2024 15:43-0500 Body weight 91.17 kg Marj Mackey MD Work Phone: [facility] 08-31-2024 15:43-0500 Diastolic blood pressure 56 mm[Hg] Marj Mackey MD Work Phone: [facility] 08-31-2024 15:43-0500 Heart rate 74 /min Marj Mackey MD Work Phone: [facility] 08-31-2024 15:43-0500 Respiratory rate 14 /min Marj Mackey MD Work Phone: [facility] 08-31-2024 15:43-0500 SaO2% (BldA) [Mass fraction] 95 % Marj aMckey MD Work Phone: [facility] 08-31-2024 15:43-0500 Systolic blood pressure 98 mm[Hg] Marj Mackey MD Work Phone: [facility] 05-07-2024 15:30-0400 Body mass index (BMI) [Ratio] 31.32 kg/m2 Zina Duran APRN.TEMPORARY ADMINISTRATIVE ASSISTANT Work Phone: [facility] 05-07-2024 15:30-0400 Body weight 90.72 kg Zina Duran APRN.TEMPORARY ADMINISTRATIVE ASSISTANT Work Phone: [facility] 05-07-2024 15:30-0400 Diastolic blood pressure 67 mm[Hg] Zina Duran APRN.TEMPORARY ADMINISTRATIVE ASSISTANT Work Phone: [facility] 05-07-2024 15:30-0400 Heart rate 63 /min Zina Duran APRN.TEMPORARY ADMINISTRATIVE ASSISTANT Work Phone: [facility] 05-07-2024 15:30-0400 Respiratory rate 16 /min Zina Duran APRN.TEMPORARY ADMINISTRATIVE ASSISTANT Work Phone: [facility] 05-07-2024 15:30-0400 Systolic blood pressure 125 mm[Hg] Zina Duran APRN.TEMPORARY ADMINISTRATIVE ASSISTANT Work Phone: [facility] 04-07-2024 10:57-0400 Diastolic blood pressure 70 mm[Hg] Ella Valdovinos PA-C Work Phone: [facility] 04-07-2024 10:57-0400 Systolic blood pressure 104 mm[Hg] Ella Valdovinos PA-C Work Phone: [facility] 04-07-2024 10:44-0400 Body mass index (BMI) [Ratio] 30.7 kg/m2 Ella Valdovinos PA-C Work Phone: [facility] 04-07-2024 10:44-0400 Body temperature 97.9 [degF] Ella Valdovinos PA-C Work Phone: [facility] 04-07-2024 10:44-0400 Body weight 88.91 kg Ella Valdovinos PA-C Work Phone: [facility] 04-07-2024 10:44-0400 Heart rate 75 /min Ella Valdovinos PA-C Work Phone: [facility] 04-07-2024 10:44-0400 Respiratory rate 18 /min Ella Valdovinos PA-C Work Phone: [facility] 04-07-2024 10:44-0400 SaO2% (BldA) [Mass fraction] 94 % Ella Valdovinos PA-C Work Phone: [facility] 03-11-2024 13:04-0400 Body height 170.2 cm Abby Pate MD Work Phone: [facility] 03-11-2024 13:04-0400 Body mass index (BMI) [Ratio] 29.57 kg/m2 Abby Pate MD Work Phone: [facility] 03-11-2024 13:04-0400 Body weight 85.65 kg Abby Pate MD Work Phone: [facility] 03-11-2024 13:04-0400 Diastolic blood pressure 74 mm[Hg] Abby Pate MD Work Phone: [facility] 03-11-2024 13:04-0400 Heart rate 66 /min Abby Pate MD Work Phone: [facility] 03-11-2024 13:04-0400 Systolic blood pressure 113 mm[Hg] Abby Pate MD Work Phone: [facility] 02-19-2024 15:10-0400 Body temperature 97.7 [degF] DR DEAN CALDWELL MD [facility] 02-19-2024 15:10-0400 Diastolic Blood Pressure Non-Invasive 71 mm[Hg] DR DEAN CALDWELL MD [facility] 02-19-2024 15:10-0400 Heart rate 68 /min DR DEAN CALDWELL MD [facility] 02-19-2024 15:10-0400 Respiratory rate 18 /min DR DEAN CALDWELL MD [facility] 02-19-2024 15:10-0400 Systolic Blood Pressure Non-Invasive 122 mm[Hg] DR DEAN CALDWELL MD [facility] 02-19-2024 13:16-0400 Respiratory rate 18 /min DR DEAN CALDWELL MD [facility] 02-19-2024 11:33-0400 Body temperature 97.52 [degF] DR DEAN CALDWELL MD [facility] 02-19-2024 11:33-0400 Diastolic Blood Pressure Non-Invasive 65 mm[Hg] DR DEAN CALDWELL MD [facility] 02-19-2024 11:33-0400 Heart rate 68 /min DR DEAN CALDWELL MD [facility] 02-19-2024 11:33-0400 Respiratory rate 18 /min DR DEAN CALDWELL MD [facility] 02-19-2024 11:33-0400 Systolic Blood Pressure Non-Invasive 126 mm[Hg] DR DEAN CALDWELL MD [facility] 02-19-2024 08:15-0400 Heart rate 84 /min DR DEAN CALDWELL MD [facility] 02-19-2024 06:27-0400 Body temperature 97.34 [degF] DR DEAN CALDWELL MD [facility] 02-19-2024 06:27-0400 Diastolic Blood Pressure Non-Invasive 58 mm[Hg] DR DEAN CALDWELL MD [facility] 02-19-2024 06:27-0400 Heart rate 67 /min DR DEAN CALDWELL MD [facility] 02-19-2024 06:27-0400 Systolic Blood Pressure Non-Invasive 103 mm[Hg] DR DEAN CALDEWLL MD [facility] 02-18-2024 20:42-0400 Heart rate 82 /min DR DEAN CALDWELL MD [facility] 02-18-2024 17:02-0400 Body height 170.[address] DEAN CALDWELL MD [facility] 02-18-2024 17:02-0400 Body weight [address] DEAN CALDWELL MD [facility] 02-18-2024 17:02-0400 Body weight 30.38 kg/m2 DR DEAN CALDWELL MD [facility] 02-18-2024 15:17-0400 Body temperature 97.52 [degF] DR DEAN CALDWELL MD [facility] 02-18-2024 15:10-0400 Respiratory Rate - Anes 0 br/min DR DEAN CALDWELL MD [facility] 02-18-2024 15:05-0400 Respiratory Rate - Anes 0 br/min DR DEAN CALDWELL MD [facility] 02-18-2024 15:00-0400 Respiratory Rate - Anes 15 br/min DR DEAN CALDWELL MD [facility] 02-18-2024 11:01-0400 Body height 170.[address] DEAN CALDWELL MD [facility] 02-18-2024 11:01-0400 Body temperature 97.88 [degF] DR DEAN CALDWELL MD [facility] 02-18-2024 11:01-0400 Body weight [address] DEAN CALDWELL MD [facility] 02-18-2024 11:01-0400 Heart rate 60 /min DR DEAN CALDWELL MD [facility] 02-10-2024 09:39-0400 Body height 170.2 cm Ella Valdovinos PA-C Work Phone: [facility] 02-10-2024 09:39-0400 Body mass index (BMI) [Ratio] 31.01 kg/m2 Ella Valdovinos PA-C Work Phone: [facility] 02-10-2024 09:39-0400 Body weight 89.81 kg Ella Valdovinos PA-C Work Phone: [facility] 02-10-2024 09:39-0400 Diastolic blood pressure 72 mm[Hg] Ella Valdovinos PA-C Work Phone: [facility] 02-10-2024 09:39-0400 Heart rate 60 /min Ella Valdovinos PA-C Work Phone: [facility] 02-10-2024 09:39-0400 Respiratory rate 16 /min Ella Valdovinos PA-C Work Phone: [facility] 02-10-2024 09:39-0400 Systolic blood pressure 118 mm[Hg] Ella Valdovinos PA-C Work Phone: [facility] 01-27-2024 11:15-[address] DEAN CALDWELL MD [facility] 01-27-2024 11:15-[address] DEAN Calero [facility] 01-27-2024 11:15-0400 Body height 170.[address] DEAN CALDWELL MD [facility] 01-27-2024 11:15-0400 Body weight 88.[address] DEAN CALDWELL MD [facility] 01-27-2024 11:15-0400 Body weight 30.59 kg/m2 DR DEAN CALDWELL MD [facility] 01-27-2024 11:15-0400 Diastolic Blood Pressure Non-Invasive 87 mm[Hg] DR DEAN CALDWELL MD [facility] 01-27-2024 11:15-0400 Heart rate 60 /min DR DEAN CALDWELL MD [facility] 01-27-2024 11:15-0400 Respiratory rate 18 /min DR DEAN CALDWELL MD [facility] 01-27-2024 11:15-0400 Systolic Blood Pressure Non-Invasive 151 mm[Hg] DR DEAN CALDWELL MD [facility] 12-31-2023 10:59-0400 Body mass index (BMI) [Ratio] 31.32 kg/m2 Oniel Francis MD Work Phone: [facility] 12-31-2023 10:59-0400 Body temperature 97.5 [degF] Oniel Francis MD Work Phone: [facility] 12-31-2023 10:59-0400 Body weight 90.72 kg Oniel Francis MD Work Phone: [facility] 12-31-2023 10:59-0400 Diastolic blood pressure 82 mm[Hg] Oniel Francis MD Work Phone: [facility] 12-31-2023 10:59-0400 Heart rate 58 /min Oniel Francis MD Work Phone: [facility] 12-31-2023 10:59-0400 Respiratory rate 16 /min Oniel Francis MD Work Phone: [facility] 12-31-2023 10:59-0400 SaO2% (BldA) [Mass fraction] 95 % Oniel Francis MD Work Phone: [facility] 12-31-2023 10:59-0400 Systolic blood pressure 120 mm[Hg] Oniel Francis MD Work Phone: [facility] 12-23-2023 15:40-0400 Body height 170.2 cm Marj Mackey MD Work Phone: [facility] 12-23-2023 15:40-0400 Body mass index (BMI) [Ratio] 30.79 kg/m2 Marj Mackey MD Work Phone: [facility] 12-23-2023 15:40-0400 Body weight 89.18 kg Marj Mackey MD Work Phone: [facility] 12-23-2023 15:40-0400 Diastolic blood pressure 72 mm[Hg] Marj Mackey MD Work Phone: [facility] 12-23-2023 15:40-0400 Heart rate 57 /min Marj Mackey MD Work Phone: [facility] 12-23-2023 15:40-0400 SaO2% (BldA) [Mass fraction] 96 % Marj Mackey MD Work Phone: [facility] 12-23-2023 15:40-0400 Systolic blood pressure 119 mm[Hg] Marj Mackey MD Work Phone: [facility] 12-14-2023 11:17-0400 Body mass index (BMI) [Ratio] 31.46 kg/m2 Shamar Barlow APRN.TEMPORARY ADMINISTRATIVE ASSISTANT Work Phone: [facility] 12-14-2023 11:17-0400 Body temperature 96.21 [degF] Shamar Barlow APRN.TEMPORARY ADMINISTRATIVE ASSISTANT Work Phone: [facility] 12-14-2023 11:17-0400 Body weight 91.1 kg Shamar Barlow APRN.TEMPORARY ADMINISTRATIVE ASSISTANT Work Phone: [facility] 12-14-2023 11:17-0400 Diastolic blood pressure 62 mm[Hg] Shamar Barlow APRN.TEMPORARY ADMINISTRATIVE ASSISTANT Work Phone: [facility] 12-14-2023 11:17-0400 Heart rate 62 /min Shamar Barlow APRN.TEMPORARY ADMINISTRATIVE ASSISTANT Work Phone: [facility] 12-14-2023 11:17-0400 Respiratory rate 16 /min Shamar Barlow APRN.TEMPORARY ADMINISTRATIVE ASSISTANT Work Phone: [facility] 12-14-2023 11:17-0400 SaO2% (BldA) [Mass fraction] 98 % Shamar Barlow APRN.TEMPORARY ADMINISTRATIVE ASSISTANT Work Phone: [facility] 12-14-2023 11:17-0400 Systolic blood pressure 120 mm[Hg] Shamar Barlow APRN.TEMPORARY ADMINISTRATIVE ASSISTANT Work Phone: [facility] 09-11-2023 13:31-0500 Body height 170.2 cm Abby Pate MD Work Phone: [facility] 09-11-2023 13:31-0500 Body weight 92 kg Abby Pate MD Work Phone: [facility] 09-11-2023 13:31-0500 Diastolic blood pressure 78 mm[Hg] Abby Pate MD Work Phone: [facility] 09-11-2023 13:31-0500 Heart rate 66 /min Abby Pate MD Work Phone: [facility] 09-11-2023 13:31-0500 SaO2% (BldA) [Mass fraction] 93 % Abby Pate MD Work Phone: [facility] 09-11-2023 13:31-0500 Systolic blood pressure 139 mm[Hg] Abby Pate MD Work Phone: [facility] 06-24-2023 15:52-0500 Body weight 89.81 kg Marj Mackey MD Work Phone: [facility] 06-24-2023 15:52-0500 Diastolic blood pressure 67 mm[Hg] Marj Mackey MD Work Phone: [facility] 06-24-2023 15:52-0500 Heart rate 66 /min Marj Mackey MD Work Phone: [facility] 06-24-2023 15:52-0500 Respiratory rate 16 /min Marj Mackey MD Work Phone: [facility] 06-24-2023 15:52-0500 SaO2% (BldA) [Mass fraction] 95 % Marj Mackey MD Work Phone: [facility] 06-24-2023 15:52-0500 Systolic blood pressure 117 mm[Hg] Marj Mackey MD Work Phone: [facility] 03-20-2023 11:33-0400 Body height 168.9 cm Abby Pate MD Work Phone: [facility] 03-20-2023 11:33-0400 Body weight 85.28 kg Abby Pate MD Work Phone: [facility] 03-20-2023 11:33-0400 Diastolic blood pressure 87 mm[Hg] Abby Pate MD Work Phone: [facility] 03-20-2023 11:33-0400 Heart rate 63 /min Abby Pate MD Work Phone: [facility] 03-20-2023 11:33-0400 SaO2% (BldA) [Mass fraction] 96 % Abby Pate MD Work Phone: [facility] 03-20-2023 11:33-0400 Systolic blood pressure 135 mm[Hg] Abby Pate MD Work Phone: [facility] 10-29-2022 11:18-0400 Diastolic blood pressure 78 mm[Hg] Marj Mackey MD Work Phone: [facility] 10-29-2022 11:18-0400 Systolic blood pressure 128 mm[Hg] Marj Mackey MD Work Phone: [facility] 10-29-2022 10:47-0400 Body height 170.2 cm Marj Mackey MD Work Phone: [facility] 10-29-2022 10:47-0400 Body weight 92.08 kg Marj Mackey MD Work Phone: [facility] 10-29-2022 10:47-0400 Heart rate 60 /min Marj Mackey MD Work Phone: [facility] 06-22-2022 08:48-0500 Body temperature 97.2 [degF] Oniel Francis MD Work Phone: [facility] 06-22-2022 08:48-0500 Body weight 88.91 kg Oniel Francis MD Work Phone: [facility] 06-22-2022 08:48-0500 Diastolic blood pressure 82 mm[Hg] Oniel Francis MD Work Phone: [facility] 06-22-2022 08:48-0500 Heart rate 60 /min Oniel Francis MD Work Phone: [facility] 06-22-2022 08:48-0500 Respiratory rate 18 /min Oniel Francis MD Work Phone: [facility] 06-22-2022 08:48-0500 Systolic blood pressure 136 mm[Hg] Oniel Francis MD Work Phone: [facility] 04-30-2022 09:59-0400 Body height 170.2 cm Marj Mackey MD Work Phone: [facility] 04-30-2022 09:59-0400 Body weight 88.45 kg Marj Mackey MD Work Phone: [facility] 04-30-2022 09:59-0400 Diastolic blood pressure 80 mm[Hg] Marj Mackey MD Work Phone: [facility] 04-30-2022 09:59-0400 Heart rate 56 /min Marj Mackey MD Work Phone: [facility] 04-30-2022 09:59-0400 SaO2% (BldA) [Mass fraction] 94 % Marj Mackey MD Work Phone: [facility] 04-30-2022 09:59-0400 Systolic blood pressure 120 mm[Hg] Marj Mackey MD Work Phone: [facility] 04-23-2022 17:38-0400 Body temperature 97.9 [degF] Naun Monterroso MD Work Phone: [facility] 04-23-2022 17:38-0400 Body weight 88.45 kg Naun Monterroso MD Work Phone: [facility] 04-23-2022 17:38-0400 Diastolic blood pressure 78 mm[Hg] Naun Monterroso MD Work Phone: [facility] 04-23-2022 17:38-0400 Heart rate 57 /min Naun Monterroso MD Work Phone: [facility] 04-23-2022 17:38-0400 Respiratory rate 18 /min Naun Montreroso MD Work Phone: [facility] 04-23-2022 17:38-0400 SaO2% (BldA) [Mass fraction] 94 % Naun Monterroso MD Work Phone: [facility] 04-23-2022 17:38-0400 Systolic blood pressure 116 mm[Hg] Naun Monterroso MD Work Phone: [facility] 02-19-2022 09:59-0400 Body temperature 96.8 [degF] Charan Abel MANAGER MANAGEMENT.TEMPORARY ADMINISTRATIVE ASSISTANT Work Phone: [facility] 02-19-2022 09:59-0400 Body weight 86.91 kg Charan Abel MANAGER MANAGEMENT.TEMPORARY ADMINISTRATIVE ASSISTANT Work Phone: [facility] 02-19-2022 09:59-0400 Diastolic blood pressure 82 mm[Hg] Charan Abel MANAGER MANAGEMENT.TEMPORARY ADMINISTRATIVE ASSISTANT Work Phone: [facility] 02-19-2022 09:59-0400 Heart rate 56 /min Charan Abel MANAGER MANAGEMENT.TEMPORARY ADMINISTRATIVE ASSISTANT Work Phone: [facility] 02-19-2022 09:59-0400 Respiratory rate 20 /min Charan Abel MANAGER MANAGEMENT.TEMPORARY ADMINISTRATIVE ASSISTANT Work Phone: [facility] 02-19-2022 09:59-0400 SaO2% (BldA) [Mass fraction] 94 % Charan Abel MANAGER MANAGEMENT.TEMPORARY ADMINISTRATIVE ASSISTANT Work Phone: [facility] 02-19-2022 09:59-0400 Systolic blood pressure 136 mm[Hg] Charan Able MANAGER MANAGEMENT.TEMPORARY ADMINISTRATIVE ASSISTANT Work Phone: [facility] 12-15-2021 15:27-0400 Body height 168 cm Abby Pate MD Work Phone: [facility] 12-15-2021 15:27-0400 Body weight 87.09 kg Abby Pate MD Work Phone: [facility] 12-15-2021 15:27-0400 Diastolic blood pressure 73 mm[Hg] Abby Pate MD Work Phone: [facility] 12-15-2021 15:27-0400 Heart rate 61 /min Abby Pate MD Work Phone: [facility] 12-15-2021 15:27-0400 Systolic blood pressure 128 mm[Hg] Abby Pate MD Work Phone: [facility] Encounters Encounter Date Encounter Type Care Provider Facility Start: 01-18-2025 End: 01-18-[address] Oniel Francis MD Work Phone: [facility] Work Phone: Start: 01-18-2025 End: 01-18-[address] Aramis Larson MD [facility] Start: 12-02-2024 End: 12-02-2024 Chart abstracting Prudencio Barlow MA [facility] [place] Comment on above: Consult (Outside Patrick n Management - Dr. Bowden ) Start: 11-02-2024 End: 11-02-2024 Refill Oniel Francis MD Work Phone: [facility] [place] Comment on above: Refill Request Start: 09-18-2024 End: 09-18-2024 Follow-up encounter Marj Mackey MD Work Phone: [facility] Cardiology [place] Start: 09-18-2024 End: 09-23-2024 Telephone encounter Abby Pate MD Work Phone: Neurology Start: 09-17-2024 End: 09-17-2024 ambulatory MARJ MACKEY Facility:[facility] Start: 09-11-2024 End: 09-11-2024 ambulatory ABBY PATE Facility:[facility] Start: 09-11-2024 End: 09-11-2024 Patient encounter procedure Abby Pate MD Work Phone: Neurology Comment on above: 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); Insomnia, unspecified type; Chronic idiopathic constipation; RBD (REM behavioral disorder) Start: 09-01-2024 End: 09-01-2024 ambulatory MARJ MACKEY Facility:[facility] Start: 08-31-2024 End: 08-31-2024 ambulatory MARJ MACKEY Facility:[facility] Start: 08-31-2024 End: 08-31-2024 Patient encounter procedure Marj Mackey MD Work Phone: Cardiology Comment on above: Coronary artery dise ase involving [place] coronary artery of [place] heart without angina pectoris (Primary Dx); Aortic valve replaced; Mixed hyperlipidemia; Essential hypertension; Carotid stenosis, asymptomatic, bilateral; Hyperlipidemia, unspecified hyperlipidemia type; SAUCEDA (dyspnea on exertion) Start: 08-01-2024 End: 08-03-2024 Refill Zina Duran APRN.TEMPORARY ADMINISTRATIVE ASSISTANT Work Phone: [facility] Comment on above: Med Change Request Start: 07-10-2024 End: 07-13-2024 Refill Oniel Francis MD Work Phone: [facility] Comment on above: Refill Request Start: 06-25-2024 End: 06-25-2024 Refill Zina Duran APRN.TEMPORARY ADMINISTRATIVE ASSISTANT Work Phone: [facility] Comment on above: Med Change Request Start: 05-30-2024 End: 06-01-2024 Refill Zina Duran APRN.TEMPORARY ADMINISTRATIVE ASSISTANT Work Phone: [facility] Comment on above: Med Change Request Start: 05-08-2024 End: 05-11-2024 Telephone encounter Zina Duran APRN.TEMPORARY ADMINISTRATIVE ASSISTANT Work Phone: [facility] Comment on above: problem scheduling u ltrasound Results Start: 05-07-2024 End: 05-07-2024 Patient encounter procedure Zina uDran APRN.TEMPORARY ADMINISTRATIVE ASSISTANT Work Phone: [facility] Comment on above: Bilateral leg pain ( Primary Dx); Bilateral lower extremity edema; Benign localized prostatic hyperplasia with lower urinary tract symptoms (LUTS) Start: 05-07-2024 End: 05-08-2024 ambulatory Oniel Francis Facility:[facility] Start: 05-07-2024 End: 05-08-2024 Telephone encounter Zina Duran APRN.TEMPORARY ADMINISTRATIVE ASSISTANT Work Phone: [facility] Comment on above: US DVT order Start: 04-07-2024 End: 04-07-2024 Telephone encounter Ella Valdovinos PA-C Work Phone: [facility] [place] Comment on above: Orders Start: 04-07-2024 End: 04-07-2024 ambulatory ONIEL FRANCIS Facility:[facility] Start: 04-07-2024 End: 04-07-2024 Patient encounter procedure Ella Valdovinos PA-C Work Phone: [facility] [place] Comment on above: Nocturia associated with benign prostatic hyperplasia (Primary Dx) Start: 03-11-2024 End: 03-11-2024 ambulatory ONIEL FRANCIS Facility:[facility] Start: 03-11-2024 End: 03-11-2024 Patient encounter procedure Abby Pate MD Work Phone: Neurology Comment on above: 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); Chronic idiopathic constipation; Insomnia, unspecified type Start: 02-24-2024 Telephone encounter Oniel Francis MD Work Phone: [facility] [place] Comment on above: Medication Question Start: 02-18-2024 End: 02-19-[address] DEAN CALDWELL MD Facility: Start: 02-18-2024 End: 02-19-[address] DEAN CALDWELL MD [facility] Start: 02-12-2024 Telephone encounter Oniel Francis MD Work Phone: [facility] [place] Comment on above: Requsting Records Start: 02-10-2024 Patient encounter procedure ELLA VALDOVINOS [facility] Start: 02-10-2024 End: 02-10-2024 Patient encounter procedure Ella Valdovinos PA-C Work Phone: [facility] [place] Comment on above: Medicare annual well ness visit, subsequent (Primary Dx); Advance directive discussed with patient; Arthritis of knee; Acquired hypothyroidism; Elevated blood sugar; B12 deficiency; Mixed hyperlipidemia; Essential hypertension; Coronary 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[place] coronary artery of [place] heart without angina pectoris; Aortic valve replaced; Parkinson's disease with dyskinesia and fluctuating manifestations (HCC); BPH associated with nocturia Start: 02-10-2024 End: 02-10-2024 ambulatory ONIEL FRANCIS Facility:[facility] Start: 02-05-2024 ambulatory Zina Santiago MA [facility] [place] Start: 02-05-2024 Patient encounter procedure Zina Santiago MA [facility] Comment on above: Population Health Na vigation Outreach ([place] [facility] 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 - AWV, Care gaps, - [place] [facility]) Start: 02-03-2024 Telephone encounter Ella neff PA-C Work Phone: [facility] [place] Comment on above: Results Start: 01-31-2024 End: 01-31-2024 Subsequent hospital visit by physician [facility] [place] Work Phone: Radiology Comment on above: URI, acute [J06.9] Start: 01-31-2024 End: 01-31-2024 ambulatory ONIEL FRANCIS Facility:[facility] Start: 01-27-2024 End: 01-27-[address] DEAN CALDWELL MD Facility:[facility] Start: 01-27-2024 End: 01-27-[address] DEAN CALDWELL MD [facility] Start: 01-27-2024 End: 01-27-[address] DEAN CALDWELL MD [facility] Start: 01-27-2024 End: 01-27-[address] DEAN CALDWELL MD Facility:[facility] Start: 12-31-2023 End: 12-31-2023 ambulatory ONIEL FRANCIS Facility:[facility] Start: 12-31-2023 End: 12-31-2023 Patient encounter procedure Oniel Francis MD Work Phone: [facility] [place] Comment on above: URI, acute (Primary Dx); X-ray of lung, abnormal; Mixed hyperlipidemia; Coronary 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[place] coronary artery of [place] heart without angina pectoris; Elevated blood sugar; Essential hypertension; Acquired hypothyroidism; Vitamin D deficiency; B12 deficiency Start: 12-23-2023 End: 12-23-2023 ambulatory ONIEL FRANCIS Facility:[facility] Start: 12-23-2023 End: 12-23-2023 Patient encounter procedure Marj Mackey MD Work Phone: Cardiology Comment on above: Coronary artery dise ase involving [place] coronary artery of [place] heart without angina pectoris (Primary Dx); Aortic valve replaced; Essential hypertension; Mixed hyperlipidemia; Carotid stenosis, asymptomatic, bilateral; Screening for ischemic heart disease; Pre-operative cardiovascular examination Start: 12-23-2023 End: 12-23-2023 Patient encounter status Marj Mackey MD Work Phone: [facility] Start: 12-16-2023 Telephone encounter Oniel Francis MD Work Phone: [facility] [place] Comment on above: Appointment Start: 12-14-2023 End: 12-14-2023 Subsequent hospital visit by physician [facility] [place] Work Phone: Radiology Comment on above: Acute cough [R05.1] Start: 12-14-2023 End: 12-14-2023 ambulatory ONIEL A TITO Facility:[facility] Start: 12-14-2023 End: 12-14-2023 Patient encounter procedure Shamar Barlow APRN.CNP Work Phone: [place] [facility] Comment on above: Acute cough (Primary Dx) Start: 11-12-2023 ambulatory Lelia Soni MA [facility] [place] Comment on above: Population Health Na vigation Outreach ([place] [facility] ) Start: 09-11-2023 End: 09-11-2023 Patient encounter procedure Abby Pate MD Work Phone: Neurology Comment on above: 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); Chronic idiopathic constipation; Insomnia, unspecified type Start: 06-24-2023 End: 06-24-2023 Patient encounter procedure Marj Mackey MD Work Phone: Cardiology Comment on above: Coronary artery dise ase involving [place] coronary artery of [place] heart without angina pectoris (Primary Dx); Aortic valve replaced; Essential hypertension; Hyperlipidemia, unspecified hyperlipidemia type; Mixed hyperlipidemia; Carotid stenosis, asymptomatic, bilateral; SAUCEDA (dyspnea on exertion) Start: 03-20-2023 End: 03-20-2023 Patient encounter procedure Abby Pate MD Work Phone: Neurology Comment on above: Parkinson disease (H CC) (Primary Dx); Chronic idiopathic constipation; RBD (REM behavioral disorder) Start: 03-19-2023 Refill Abby Pate MD Work Phone: [facility] Neurology Comment on above: Refill Request (Carb idopa-Levodopa) Start: 12-25-2022 Patient encounter procedure Abby Pate MD Work Phone: [facility] Work Phone: Start: 12-12-2022 Telephone encounter Marj [...] on above: Coronary artery dise ase involving [place] coronary artery of [place] heart without angina pectoris (Primary Dx); Aortic valve replaced; Essential hypertension; Mixed hyperlipidemia; Carotid stenosis, asymptomatic, bilateral; Hyperlipidemia, unspecified hyperlipidemia type Start: 07-13-2022 Refill Abyb Pate MD Work Phone: [facility] Neurology Comment on above: Refill Request Start: 06-25-2022 Telephone encounter Oniel Francis MD Work Phone: Family Medicine [place] Comment on above: Results Start: 06-22-2022 End: 06-22-2022 Patient encounter procedure Oniel Francis MD Work Phone: Family Medicine [place] Comment on above: Essential hypertensi on (Primary Dx); Mixed hyperlipidemia; Elevated blood sugar; Coronary 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[place] coronary artery of [place] heart without angina pectoris; Carotid stenosis, asymptomatic, bilateral; Acquired hypothyroidism; Vitamin D deficiency; Obesity, Class I, BMI 30-34.9; B12 deficiency; Viral URI with cough; Medication management Start: 06-18-2022 End: 06-18-2022 [facility] Abby Pate MD Work Phone: Neurology Comment on above: Parkinson disease (H CC) (Primary Dx); Chronic idiopathic constipation; RBD (REM behavioral disorder) Start: 05-23-2022 End: 05-23-2022 ambulatory Mi Nurse Work Phone: Family Medicine [place] Start: 05-11-2022 Refill Ella Russo on PA-C Work Phone: [facility] [place] Comment on above: Refill Request Start: 04-30-2022 End: 04-30-2022 Patient encounter procedure Marj Mackey MD Work Phone: Cardiology Comment on above: Coronary artery dise ase involving [place] coronary artery of [place] heart without angina pectoris (Primary Dx); Aortic valve replaced; Essential hypertension; Mixed hyperlipidemia; Carotid stenosis, asymptomatic, bilateral; Hyperlipidemia, unspecified hyperlipidemia type Start: 04-23-2022 End: 04-23-2022 Orders Only Marj Mackey MD Work Phone: Cardiology Comment on above: Aortic valve replace d (Primary Dx) Olecranon bursitis o f right elbow (Primary Dx) Start: 02-19-2022 End: 02-19-2022 Patient encounter procedure Charan Roman APRN.CNP Work Phone: [facility] Comment on above: Rash (Primary Dx) Start: 12-15-2021 End: 12-15-2021 Patient encounter procedure Abby Pate MD Work Phone: Neurology Comment on above: Parkinson disease (H CC) (Primary Dx); Chronic idiopathic constipation; RBD (REM behavioral disorder) Start: 12-12-2021 Patient encounter procedure Abby Pate MD Work Phone: [facility] Work Phone: Start: 12-01-2021 ambulatory Oniel smith MD Work Phone: [facility] [place] Start: 12-01-2021 Patient encounter procedure Oniel Francis MD Work Phone: [facility] [place] Comment on above: office visit Start: 11-07-2021 Refill Ella Russo on PA-C Work Phone: [facility] [place] Comment on above: Refill Request Start: 12-07-2020 Patient encounter procedure Ella Valdovinos PA-C Work Phone: [facility] Work Phone: Start: 08-26-2018 End: 08-26-2018 Evaluation and management of inpatient ARLENE Meredith Facility:[facility] Start: 01-17-2018 Patient encounter procedure KIZZY BAILEY Facility:[facility] Start: 12-31-2017 Patient encounter procedure KIZZY BAILEY Facility:[facility] Procedures Date Procedure Procedure Detail Performing Clinician [...] Detail Author Start: 12-04-2027 Urine microalbumin profile [facility] Start: 09-01-2027 [facility] Start: 05-07-2027 [facility] Start: 01-30-2027 [facility] Start: 12-25-2025 DIABETES SCREEN DIABETES SCREEN [facility] Start: 12-25-2025 [facility] Start: 09-01-2025 Hepatitis B surface antibody level LDL Cholesterol [facility] Start: 06-22-2025 DIABETES SCREEN DIABETES SCREEN [facility] Start: 05-24-2025 End: 05-24-2025 Patient encounter procedure 05/24/2025 9:20 AM EDT Office Visit Cardiology [address] [place] [address] Marj Mackey MD [address] [facility] [address] [place] [address] 6 month follow up Cardiology Comment on above: 6 month follow up Start: 03-24-2025 End: 03-24-2025 Patient encounter procedure 03/24/2025 3:30 PM EDT Office Visit Neurology [address] [place] [address] [place] [phone] Abby Pate MD [address] [place], [place] [id number] six month follow up Neurology Comment on above: six month follow up Start: 03-12-2025 End: 03-12-2025 Patient encounter procedure 03/12/2025 3:30 PM EDT Office Visit Neurology [address] [place] [phone] Abby Pate MD [address] [place] [address] six month follow up Neurology Comment on above: six month follow up Start: 02-09-2025 Anxiety Screening Anxiety Screening [facility] Start: 02-09-2025 Depression Screening Depression Scre ening [facility] Start: 02-08-2025 End: 02-08-2025 Patient encounter procedure [facility] [place] Comment on above: Medicare Wellness Start: 02-02-2025 End: 05-04-2025 25-hydroxyvitamin D3 [Mass/volume] in Serum or Plasma VITAMIN D 25 HYDROXY Lab Routine Vitamin D deficiency Expected: 02/02/2025, Expires: 05/04/2025 [facility] Comment on above: Expected: 02/02/2025 , Expires: 05/04/2025 Start: 02-02-2025 End: 05-04-2025 CBC W Auto Differential panel - Blood COMPLETE BLOOD COUNT AND DIFFERENTIAL Lab Routine Essential hypertension B12 deficiency Elevated blood sugar Expected: 02/02/2025, Expires: 05/04/2025 [facility] Comment on above: Expected: 02/02/2025 , Expires: 05/04/2025 Start: 02-02-2025 End: 05-04-2025 Cobalamin (Vitamin B12) [Mass/volume] in Serum or Plasma VITAMIN B12 Lab Routine B12 deficiency Expected: 02/02/2025, Expires: 05/04/2025 [facility] Comment on above: Expected: 02/02/2025 , Expires: 05/04/2025 Start: 02-02-2025 End: 05-04-2025 Comprehensive metabolic 2000 panel - Serum or Plasma COMPREHENSIVE METABOLIC PANEL Lab Routine Essential hypertension Expected: 02/02/2025, Expires: 05/04/2025 [facility] Comment on above: Expected: 02/02/2025 , Expires: 05/04/2025 Start: 02-02-2025 End: 05-04-2025 Hemoglobin A1c in Blood HEMOGLOBIN A1C Lab Routine Elevated blood sugar Expected: 02/02/2025, Expires: 05/04/2025 [facility] Comment on above: Expected: 02/02/2025 , Expires: 05/04/2025 Start: 02-02-2025 End: 05-04-2025 LIPID PANEL, NONFASTING LIPID PANEL, NONFASTING Lab Routine Mixed hyperlipidemia Expected: 02/02/2025, Expires: 05/04/2025 [facility] Work Phone: Comment on above: Expected: 02/02/2025 , Expires: 05/04/2025 Start: 02-02-2025 End: 05-04-2025 Thyrotropin [Units/volume] in Serum or Plasma THYROID STIMULATING HORMONE Lab Routine Acquired hypothyroidism Expected: 02/02/2025, Expires: 05/04/2025 [facility] Comment on above: Expected: 02/02/2025 , Expires: 05/04/2025 Start: 02-02-2025 End: 05-04-2025 Urinalysis complete panel - Urine URINALYSIS, WITH MICROSCOPIC Lab Routine Essential hypertension Expected: 02/02/2025, Expires: 05/04/2025 [facility] Comment on above: Expected: 02/02/2025 , Expires: 05/04/2025 Start: 01-30-2025 Hepatitis B surface antibody level LDL Cholesterol [facility] Start: 01-18-2025 X-ray of lumbar spin e, two or three views Lumbar Spine 2 or 3 Views [facility] Start: 12-12-2024 DIABETES SCREEN DIABETES SCREEN [facility] Start: 09-17-2024 End: 09-17-2024 Patient encounter procedure 09/17/2024 9:40 AM EST Office Visit Cardiology [address] [place] [address] Coronary 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[place] coronary artery of [place] heart without... Cardiology Comment on above: Coronary artery dise ase involving [place] coronary artery of [place] heart without... Start: 09-11-2024 End: 09-11-2024 Patient encounter procedure 09/11/2024 3:00 PM EST Office Visit Neurology [address] [place] [phone] Abby Pate MD [address] [place] [address] Six month follow up Neurology Comment on above: Six month follow up Start: 09-01-2024 End: 09-01-2024 ambulatory 09/01/2024 7:45 AM EST Results Only [facility] [address] [place] [address] Labs [facility] Comment on above: Labs Start: 08-31-2024 End: 08-31-2024 Patient encounter procedure 08/31/2024 3:40 PM EST Office Visit Cardiology [address] [place] [phone] Marj Mackey MD [address] [place], [place] [id number] 6 month follow up Cardiology Comment on above: 6 month follow up Start: 08-31-2024 End: 11-30-2024 Comprehensive metabolic 2000 panel - Serum or Plasma COMPREHENSIVE METABOLIC PANEL Lab Routine Coronary 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[place] coronary artery of [place] heart without angina pectoris Hyperlipidemia, unspecified hyperlipidemia type Expected: 08/31/2024, Expires: 11/30/2024 [facility] Comment on above: Expected: 08/31/2024 , Expires: 11/30/2024 Start: 08-31-2024 End: 11-30-2024 Lipid 1996 panel - Serum or Plasma LIPID PANEL BASIC Lab Routine Hyperlipidemia, unspecified hyperlipidemia type Expected: 08/31/2024, Expires: 11/30/2024 [facility] Comment on above: Expected: 08/31/2024 , Expires: 11/30/2024 Start: 08-31-2024 End: 11-30-2024 Natriuretic peptide.B prohormone N-Terminal [Mass/volume] in Serum or Plasma NT PRO BNP Lab Routine SAUCEDA (dyspnea on exertion) Expected: 08/31/2024, Expires: 11/30/2024 [facility] Comment on above: Expected: 08/31/2024 , Expires: 11/30/2024 Start: 08-05-2024 Advance Directive Discussion Advance Directive Discussion [facility] Start: 06-09-2024 DIABETES SCREEN DIABETES SCREEN [facility] Start: 05-08-2024 End: 05-08-2024 Patient encounter procedure 05/08/2024 1:00 PM EDT Appointment [facility] [address] [facility] [place] [address] Bilateral leg pain [M79.604, M79.605] [facility] Comment on above: Bilateral leg pain [ M79.604, M79.605] Start: 05-07-2024 End: 08-06-2024 CBC W Auto Differential panel - Blood [facility] Work Phone: Comment on above: Expected: 05/07/2024 , Expires: 08/06/2024 Start: 05-07-2024 End: 08-06-2024 Comprehensive metabolic 2000 panel - Serum or Plasma [facility] Comment on above: Expected: 05/07/2024 , Expires: 08/06/2024 Start: 05-07-2024 End: 08-06-2024 Magnesium [Mass/volume] in Serum or Plasma [facility] Comment on above: Expected: 05/07/2024 , Expires: 08/06/2024 Start: 05-07-2024 End: 08-06-2024 Phosphate [Mass/volume] in Serum or Plasma [facility] Comment on above: Expected: 05/07/2024 , Expires: 08/06/2024 Start: 04-07-2024 End: 04-07-2024 Patient encounter procedure 04/07/2024 10:40 AM EDT Office Visit [facility] [place] [address] [place], [place] [id number] Ella Valdovinos PA-C [address] [place], [place] [phone] 8 wk follow up, noctural urination/med follow upo [facility] [place] Comment on above: 8 wk follow up, noct ural urination/med follow upo Start: 04-05-2024 Covid-19 Vaccine ( season) Covid-19 Vaccine ( season) [facility] Start: 04-05-2024 Covid-19 Vaccine ( season) Covid-19 Vaccine () [facility] Start: 04-05-2024 Influenza vaccination C [facility] Start: 03-11-2024 End: 03-11-2024 Patient encounter procedure 03/11/2024 1:00 PM EDT Office Visit Neurology [address] [place] [phone] Abby Pate MD [address] [place] [address] 6 month follow up Neurology Comment on above: 6 month follow up Start: 02-10-2024 End: 02-10-2024 Patient encounter procedure 02/10/2024 9:40 AM EDT Office Visit [facility] [address] [facility] [address] Ella Valdovinos PA-C [address] [place] [address] Medicare Wellness [facility] [place] Comment on above: Medicare Wellness Start: 01-30-2024 End: 01-30-2024 Patient encounter procedure 01/30/2024 9:00 AM EDT Office Visit [facility] [address] [place] [address] Oniel Francis MD [address] [place] [address] Medicare Wellness [facility] [place] Comment on above: Medicare Wellness Start: 01-17-2024 End: 04-17-2024 25-hydroxyvitamin D3 [Mass/volume] in Serum or Plasma VITAMIN D 25 HYDROXY Lab Routine Vitamin D deficiency Expected: 01/17/2024, Expires: 04/17/2024 [facility] Comment on above: Expected: 01/17/2024 , Expires: 04/17/2024 Start: 01-17-2024 End: 04-17-2024 CBC W Auto Differential panel - Blood COMPLETE BLOOD COUNT AND DIFFERENTIAL Lab Routine Acquired hypothyroidism Expected: 01/17/2024, Expires: 04/17/2024 [facility] Comment on above: Expected: 01/17/2024 , Expires: 04/17/2024 Start: 01-17-2024 End: 04-17-2024 Cobalamin (Vitamin B12) [Mass/volume] in Serum or Plasma VITAMIN B12 Lab Routine B12 deficiency Expected: 01/17/2024, Expires: 04/17/2024 [facility] Comment on above: Expected: 01/17/2024 , Expires: 04/17/2024 Start: 01-17-2024 End: 04-17-2024 Comprehensive metabolic 2000 panel - Serum or Plasma COMPREHENSIVE METABOLIC PANEL Lab Routine Mixed hyperlipidemia Coronary 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[place] coronary artery of [place] heart without angina pectoris Elevated blood sugar Essential hypertension Expected: 01/17/2024, Expires: 04/17/2024 [facility] Comment on above: Expected: 01/17/2024 , Expires: 04/17/2024 Start: 01-17-2024 End: 04-17-2024 Hemoglobin A1c in Blood HEMOGLOBIN A1C Lab Routine Elevated blood sugar Expected: 01/17/2024, Expires: 04/17/2024 [facility] Comment on above: Expected: 01/17/2024 , Expires: 04/17/2024 Start: 01-17-2024 End: 04-17-2024 LIPID PANEL, NONFASTING LIPID PANEL, NONFASTING Lab Routine Mixed hyperlipidemia Coronary 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[place] coronary artery of [place] heart without angina pectoris Essential hypertension Expected: 01/17/2024, Expires: 04/17/2024 [facility] Comment on above: Expected: 01/17/2024 , Expires: 04/17/2024 Start: 01-17-2024 End: 04-17-2024 Thyrotropin [Units/volume] in Serum or Plasma THYROID STIMULATING HORMONE Lab Routine Acquired hypothyroidism Expected: 01/17/2024, Expires: 04/17/2024 [facility] Comment on above: Expected: 01/17/2024 , Expires: 04/17/2024 Start: 01-17-2024 End: 04-17-2024 Urinalysis complete panel - Urine URINALYSIS, WITH MICROSCOPIC Lab Routine Mixed hyperlipidemia Essential hypertension Expected: 01/17/2024, Expires: 04/17/2024 [facility] Comment on above: Expected: 01/17/2024 , Expires: 04/17/2024 Start: 01-14-2024 End: 01-29-2025 XR Chest PA and Lateral XR CHEST 2V FRONTAL/LAT Radiology Routine URI, acute X-ray of lung, abnormal Expected: 01/14/2024, Expires: 01/29/2025 [facility] Work Phone: Comment on above: Expected: 01/14/2024 , Expires: 01/29/2025 Start: 12-31-2023 End: 12-31-2023 Patient encounter procedure 12/31/2023 10:40 AM EDT Office Visit [facility] [address] [place] [address] Oniel Francis MD [address] [place] [address] 12/13 EC Follow Up [facility] Comment on above: 12/13 EC Follow Up Start: 12-26-2023 Hepatitis B surface antibody level LDL CHOLESTEROL [facility] Start: 12-23-2023 End: 12-23-2023 Patient encounter procedure 12/23/2023 3:40 PM EDT Office Visit Cardiology [address] [place] [id number] Marj Mackey MD [address] [place], [place] [id number] 6 month follow up Cardiology Comment on above: 6 month follow up Start: 10-30-2023 BP CONTROLLED (<130/80) BP CONTROLLE D (<130/80) [facility] Start: 09-27-2023 Covid-19 Vaccine () Covid-19 Vaccine () [facility] Start: 08-05-2023 Advance Directive Discussion Advance Directive Discussion [facility] Start: 08-05-2023 Behavioral Health Screening Behavioral Health Screening [facility] Start: 08-05-2023 Depression Assessment Depression Ass essment [facility] Start: 06-22-2023 ANNUAL PCP TEAM EXTRACTOR TENDER RAW STOCK SHANDA DISEASE VISIT ANNUAL PCP TEAM CHRONIC DISEASE VISIT [facility] Start: 06-22-2023 BP CONTROLLED (<130/80) BP CONTROLLE D (<130/80) [facility] Start: 06-14-2023 Hepatitis B surface antibody level LDL CHOLESTEROL [facility] Start: 04-23-2023 BP CONTROLLED (<130/80) BP CONTROLLE D (<130/80) [facility] Start: 04-05-2023 Influenza vaccination C [facility] Start: 12-15-2022 BP CONTROLLED (<130/80) BP CONTROLLE D (<130/80) [facility] Start: 12-12-2022 Adult depression scr eening assessment DEPRESSION SCREENING [facility] Start: 12-12-2022 ANNUAL PCP TEAM EXTRACTOR TENDER RAW STOCK SHANDA DISEASE VISIT ANNUAL PCP TEAM CHRONIC DISEASE VISIT [facility] Start: 12-12-2022 Hepatitis B surface antibody level LDL CHOLESTEROL [facility] Start: 12-07-2022 End: 02-06-2023 25-hydroxyvitamin D3 [Mass/volume] in Serum or Plasma VITAMIN D 25 HYDROXY Lab Routine Vitamin D deficiency Expected: 12/07/2022, Expires: 02/06/2023 [facility] Work Phone: Comment on above: Expected: 12/07/2022 , Expires: 02/06/2023 Start: 12-07-2022 End: 02-06-2023 CBC W Auto Differential panel - Blood CBC + DIFF Lab Routine Acquired hypothyroidism Medication management Expected: 12/07/2022, Expires: 02/06/2023 [facility] Work Phone: Comment on above: Expected: 12/07/2022 , Expires: 02/06/2023 Start: 12-07-2022 End: 02-06-2023 Cobalamin (Vitamin B12) [Mass/volume] in Serum or Plasma VITAMIN B12 BLOOD Lab Routine B12 deficiency Expected: 12/07/2022, Expires: 02/06/2023 [facility] Work Phone: Comment on above: Expected: 12/07/2022 , Expires: 02/06/2023 Start: 12-07-2022 End: 02-06-2023 Comprehensive metabolic 2000 panel - Serum or Plasma COMP METABOLIC PANEL Lab Routine Mixed hyperlipidemia Essential hypertension Coronary 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[place] coronary artery of [place] heart without angina pectoris Expected: 12/07/2022, Expires: 02/06/2023 [facility] Work Phone: Comment on above: Expected: 12/07/2022 , Expires: 02/06/2023 Start: 12-07-2022 End: 02-06-2023 Hemoglobin A1c in Blood HGB A1C Lab Routine Elevated blood sugar Expected: 12/07/2022, Expires: 02/06/2023 [facility] Work Phone: Comment on above: Expected: 12/07/2022 , Expires: 02/06/2023 Start: 12-07-2022 End: 02-06-2023 LIPID PANEL, NONFASTING LIPID PANEL, NONFASTING Lab Routine Mixed hyperlipidemia Essential hypertension Coronary 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[place] coronary artery of [place] heart without angina pectoris Expected: 12/07/2022, Expires: 02/06/2023 [facility] Work Phone: Comment on above: Expected: 12/07/2022 , Expires: 02/06/2023 Start: 12-07-2022 End: 02-06-2023 Thyrotropin [Units/volume] in Serum or Plasma TSH BLD Lab Routine Acquired hypothyroidism Expected: 12/07/2022, Expires: 02/06/2023 [facility] Work Phone: Comment on above: Expected: 12/07/2022 , Expires: 02/06/2023 Start: 12-07-2022 End: 02-06-2023 Urinalysis complete panel - Urine URINALYSIS, WITH MICROSCOPIC Lab Routine Mixed hyperlipidemia Essential hypertension Expected: 12/07/2022, Expires: 02/06/2023 [facility] Work Phone: Comment on above: Expected: 12/07/2022 , Expires: 02/06/2023 Start: 10-06-2022 COVID-19 VACCINE (6 - Moderna series) COVID-19 VACCINE (6 - Moderna series) [facility] Start: 08-14-2022 BP CONTROLLED (<130/80) BP CONTROLLE D (<130/80) [facility] Start: 08-05-2022 ADVANCE DIRECTIVE DISCUSSION ADVANCE DIRECTIVE DISCUSSION [facility] Start: 08-05-2022 DEPRESSION ASSESSMENT DEPRESSION ASS ESSMENT [facility] Start: 06-09-2022 ANNUAL PCP TEAM EXTRACTOR TENDER RAW STOCK SHANDA DISEASE VISIT ANNUAL PCP TEAM CHRONIC DISEASE VISIT [facility] Start: 06-09-2022 Hepatitis B surface antibody level LDL CHOLESTEROL [facility] Start: 06-08-2022 Adult depression scr eening assessment DEPRESSION SCREENING [facility] Start: 04-30-2022 End: 06-30-2022 Alanine aminotransferase [Enzymatic activity/volume] in Serum or Plasma ALT/SGPT Lab Routine Mixed hyperlipidemia Expected: 04/30/2022, Expires: 06/30/2022 [facility] Work Phone: Comment on above: Expected: 04/30/2022 , Expires: 06/30/2022 Start: 04-30-2022 End: 06-30-2022 Aspartate aminotransferase [Enzymatic activity/volume] in Serum or Plasma AST/SGOT BLD Lab Routine Mixed hyperlipidemia Expected: 04/30/2022, Expires: 06/30/2022 [facility] Work Phone: Comment on above: Expected: 04/30/2022 , Expires: 06/30/2022 Start: 04-30-2022 End: 06-30-2022 Lipid 1996 panel - Serum or Plasma LIPID PANEL BASIC Lab Routine Mixed hyperlipidemia Expected: 04/30/2022, Expires: 06/30/2022 [facility] Work Phone: Comment on above: Expected: 04/30/2022 , Expires: 06/30/2022 Start: 04-20-2022 COVID-19 VACCINE (5 - Booster for Moderna series) COVID-19 VACCINE (5 - Booster for Moderna series) [facility] Start: 04-05-2022 Influenza vaccination INFLUENZA (#1) [facility] Start: 10-02-2021 COVID-19 VACCINE (4 - Booster for Moderna series) COVID-19 VACCINE (4 - Booster for Moderna series) [facility] Start: 08-05-2021 ADVANCE DIRECTIVE DISCUSSION ADVANCE DIRECTIVE DISCUSSION [facility] Start: 08-05-2021 DEPRESSION ASSESSMENT DEPRESSION ASS ESSMENT [facility] Start: 06-22-2020 BP CONTROLLED (<130/80) BP CONTROLLE D (<130/80) [facility] End: 04-23-2023 ECG COMPLETE ECG COMPLETE ECG Routine Aortic valve replaced 1 Occurrences starting 04/23/2022 until 04/23/2023 [facility] Work Phone: Comment on above: 1 Occurrences starti ng 04/23/2022 until 04/23/2023 ECG COMPLETE ECG COMPLETE ECG Routine Essential hypertension Hyperlipidemia, unspecified hyperlipidemia type Ordered: 06/18/2023 [facility] Work Phone: Comment on above: Ordered: 06/18/2023 ECG COMPLETE ECG COMPLETE ECG Routine Screening for ischemic heart disease Ordered: 12/18/2023 [facility] Work Phone: Comment on above: Ordered: 12/18/2023 ECG COMPLETE ECG COMPLETE ECG 12/23/2023 3:45 PM EDT [facility] End: 06-24-2024 Echocardiography ECHO Cardiology Routine Aortic valve replaced SAUCEDA (dyspnea on exertion) 1 Occurrences starting 06/24/2023 until 06/24/2024 [facility] Work Phone: Comment on above: 1 Occurrences starti ng 06/24/2023 until 06/24/2024 End: 08-31-2025 Echocardiography ECHO Cardiology Routine Coronary 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[place] coronary artery of [place] heart without angina pectoris Aortic valve replaced 1 Occurrences starting 08/31/2024 until 08/31/2025 [facility] Work Phone: Comment on above: 1 Occurrences starti ng 08/31/2024 until 08/31/2025 End: 04-30-2023 US CAROTID ARTERIES [facility]UDY [facility]AS LAB US CAROTID ARTERIES [facility]UD[facility] Vascular Lab Routine Carotid stenosis, asymptomatic, bilateral 1 Occurrences starting 04/30/2022 until 04/30/2023 [facility] Work Phone: Comment on above: 1 Occurrences starti ng 04/30/2022 until 04/30/2023 End: 06-24-2024 US CAROTID ARTERIES CLAUDY VAS LAB US CAROTID ARTERIES CLAUDY VAS LAB Vascular Lab Routine Carotid stenosis, asymptomatic, bilateral 1 Occurrences starting 06/24/2023 until 06/24/2024 [facility] Work Phone: Comment on above: 1 Occurrences starti ng 06/24/2023 until 06/24/2024 End: 06-06-2025 US Lower extremity vein - bilateral US DVT LOWER BILATERAL Radiology STAT Bilateral leg pain Bilateral lower extremity edema 1 Occurrences starting 05/07/2024 until 06/06/2025 [facility] Comment on above: 1 Occurrences starti ng 05/07/2024 until 06/06/2025 [facility] Immunizations Immunization Date Immunization Notes Care Provider Fa [facility] 06-14-2023 respiratory syncytia l virus (RSV) vaccine, adjuvanted (AREXVY) Ella Valdovinos PA-C Work Phone: [facility] 06-14-2023 RSV vaccine preF3, recombinant DR DEAN CALDWELL MD [facility] 05-27-2023 SARS-CoV-2 (COVID-19 ) [id number] DR DEAN CALDWELL MD [facility] 06-08-2022 SARS-CoV-2 (CV19)mRNA-[address] DEAN CALDWELL MD [facility] 05-23-2022 influenza, high-dose , quadrivalent vaccine (FLUZONE HIGH DOSE QUADRIVALENT) Mi Nurse Work Phone: [facility] Work Phone: 05-23-2022 influenza virus vacc ine, unspecified formulation Marj Mackey MD Work Phone: [facility] 02-23-2022 SARS-CoV-2 (COVID-19 ) mRNA-[id number] DEAN CALDWELL MD [facility] Comment on above: Result Comment: 2023: BOOSTER #2 12-12-2021 pneumococcal polysaccharide vaccine, 23 valent Abby Pate MD Work Phone: [facility] 06-09-2021 influenza virus vacc ine, unspecified formulation DR DEAN CALDWELL MD [facility] 06-09-2021 influenza, high-dose , quadrivalent vaccine (FLUZONE HIGH DOSE QUADRIVALENT) Ella Valdovinos PA-C Work Phone: [facility] 06-01-2021 SARS-CoV-2 (COVID-19 ) mRNA-[id number] DEAN CALDWELL MD [facility] 09-28-2020 COVID-19 vaccine, fu ll dose (MODERNA) Ella Valdovinos PA-C Work Phone: [facility] Work Phone: 08-31-2020 COVID-19 vaccine, fu ll dose (MODERNA) Ella Valdovinos PA-C Work Phone: [facility] Work Phone: 06-22-[address] DEAN CALDWELL MD [facility] 06-21-2020 zoster vaccine recombinant Ella Valdovinos PA-C Work Phone: [facility] 05-25-2020 influenza virus vacc ine, unspecified formulation DR DEAN CALDWELL MD [facility] 05-25-2020 influenza, high-dose , quadrivalent vaccine (FLUZONE HIGH DOSE QUADRIVALENT) Ella Valdovinos PA-C Work Phone: [facility] Work Phone: 04-26-2020 zoster vaccine recombinant Ella Valdovinos PA-C Work Phone: [facility] 06-09-2019 influenza virus vacc ine, unspecified formulation DR DEAN CALDWELL MD [facility] 05-14-2018 influenza virus vacc ine, unspecified formulation DR DEAN CALDWELL MD [facility] 12-03-2017 diphtheria, tetanus toxoids and acellular pertussis vaccine, unspecified formulation Ella Valdovinos PA-C Work Phone: [facility] 12-03-2017 tetanus toxoid, redu lorraine diphtheria toxoid, and acellular pertussis vaccine, adsorbed Ella Valdovinos PA-C Work Phone: [facility] 06-19-2017 influenza virus vacc ine, unspecified formulation DR DEAN CALDWELL MD [facility] 06-19-2017 influenza, injectabl e, quadrivalent, contains preservative Ella HAAS-C Work Phone: [facility] 05-25-2016 influenza virus vacc ine, unspecified formulation DR DEAN CALDWELL MD [facility] 05-25-2016 influenza, high dose seasonal, preservative-free Ella HAAS-C Work Phone: [facility] 12-27-2015 pneumococcal polysaccharide vaccine, 23 valent Ella HAAS-C Work Phone: [facility] 05-16-2015 influenza virus vacc ine, unspecified formulation Ella HAAS-C Work Phone: [facility] Work Phone: 12-22-2014 pneumococcal conjuga te vaccine, 13 valent Ella Valdovinos PA-C Work Phone: [facility] Work Phone: 10-22-2014 tetanus toxoid, redu lorraine diphtheria toxoid, and acellular pertussis vaccine, adsorbed Ella Valdovinos PA-C Work Phone: [facility] Work Phone: 10-18-2014 pneumococcal conjuga te vaccine, 13 valent Ella Valdovinos PA-C Work Phone: [facility] 05-12-2014 influenza virus vacc ine, unspecified formulation DR DEAN CALDWELL MD [facility] 05-12-2014 influenza, seasonal, injectable Ella Valdovinos PA-C Work Phone: [facility] 05-16-2013 influenza virus vacc ine, unspecified formulation Ella Valdovinos PA-C Work Phone: [facility] 05-24-2012 influenza virus vacc ine, unspecified formulation Ella Valdovinos PA-C Work Phone: [facility] 06-22-2011 influenza virus vacc ine, unspecified formulation Ella Valdovinos PA-C Work Phone: [facility] 05-25-2010 influenza virus vacc ine, unspecified formulation Ella Valdovinos PA-C Work Phone: [facility] Work Phone: 05-24-2009 influenza virus vacc ine, unspecified formulation Ella Valdovinos PA-C Work Phone: [facility] Work Phone: 05-24-2009 zoster vaccine, live Ella Valdovinos PA-C Work Phone: [facility] Work Phone: 06-10-2007 influenza virus vacc ine, unspecified formulation Ella Valdovinos PA-C Work Phone: [facility] 2006 pneumococcal polysaccharide vaccine, 23 valent Ella aVldovinos PA-C Work Phone: [facility] Work Phone: 07-05-2005 influenza virus vacc ine, unspecified formulation Ella Valdovinos PA-C Work Phone: [facility] Work Phone: 06-30-2005 diphtheria and tetan us toxoids, adsorbed for pediatric use Ella Valdovinos PA-C Work Phone: [facility] Work Phone: Payers Date Payer Category Payer Self-pay 2019 Medicare (Managed Care) [employer] Member Subscriber Plan / Payer (Effective 2019-Present) Name: Soniya Cooley Relation to Subscriber: Self Name: Soniya Cooley Payer ID: [id number] ([facility]) Group ID: [id number] Type: HMO Address: [address] [place] [id number] 2019 Unknown [employer] O [id number] 2019-Present [phone] [address] [place] [address] HMO [id number] 2019 Unknown [id number] 2019 Unknown [id number] 1941 Unknown [id number] 1941 Unknown [id number] 1941 Unknown [id number] 1941 Unknown [id number] 1941 Unknown [id number] 1941 Unknown [id number] Unknown [id number] Unknown [id number] Social History Date Type Detail Facility Start: 02-22-2011 End: 01-18-2025 Tobacco smoking status NHIS Never smoked tobacco [facility] Start: 08-14-2021 End: 12-02-2024 Alcohol intake Current drinker of alcohol (finding) [facility] Start: 08-14-2021 End: 09-11-2024 Alcohol intake [facility] Start: 06-03-2020 End: 06-19-2022 History SDOH Alcohol Frequency 3 [facility] Start: 12-10-2019 End: 06-03-2020 History SDOH Alcohol Std Drinks 98 [facility] Start: 06-03-2020 End: 06-19-2022 History SDOH Alcohol Binge 1 [facility] Start: 03-14-2020 End: 06-19-2022 History SDOH Social Connections Phone 4 [facility] Start: 03-14-2020 End: 06-19-2022 History SDOH Social Connections Get Together 2 [facility] Start: 03-14-2020 History SDOH Physica l Activity DPW 6 [facility] Start: 12-10-2019 End: 06-19-2022 History SDOH Physical Activity MPS 5 [facility] Start: 12-10-2019 Education 21 [facility] Start: 1940 Sex Assigned At Male C [facility] Work Phone: Start: 11-14-2021 End: 06-22-2022 Exposure to SARS-CoV-2 (event) Not sure [facility] Start: 02-22-2011 Tobacco use and exposure Smoke less tobacco non-user [facility] Work Phone: Start: 06-19-2022 End: 09-11-2024 Social connection and isolation panel [facility] Do you belong to any clubs or organizations such as religion groups, unions, fraternal or athletic groups, or school groups? No [facility] Are you now , , , , never or living with a partner? [facility] How often to you hav e a drink containing alcohol? 2-4 times a month [facility] How many standard dr inks containing alcohol do you have on a typical day? 1 or 2 [facility] How often do you hav e 6 or more drinks on 1 occasion? Never [facility] How hard is it for y ou to pay for the very basics like food, housing, medical care, and heating Not hard at all [facility] Do you feel stress - tense, restless, nervous, or anxious, or unable to sleep at night because your mind is troubled all the time - these days [OSQ] Not at all [facility] (I/We) worried norbert er (my/our) food would run out before (I/we) got money to buy more. Never true [facility] Start: 10-10-2018 Gender identity Identifies as male gender (finding) [facility] Work Phone: Sex Assigned At Sex [facility] Do you belong to any clubs or organizations such as religion groups, unions, fraternal or athletic groups, or school groups? Yes [facility] Start: 05-29-[address] [facility] Start: 05-29-[address] [facility] Start: 05-29-[address] [facility] Medical Equipment Procedure Code Equipment Code Equipment Original Text Equipment Identifier Dates Solsberry Thk1.65mm P tfe 4x.5in Cardiovascular Sterile - [id number] Start: 10-29-2018 Valve Aort 27mm Crp-Ed Thfx - [id number] Start: 10-29-2018 Goals Date Patient Goal Desired Activity /State Personal health goal Functional Status Date Assessment Result Facility 02-19-2024 [facility] Functional Status Single level home [facility] 02-19-2024 Functional Status Front wheeled [facility] 02-19-2024 Functional Status [facility] 02-19-2024 Functional Status Identified as high risk, Fall ID band on, Room located near nursing station, Bed alert on, Door open, Bathroom light on, Non-Slip footwear, Room check performed [facility] 02-19-2024 Functional Status [facility] 02-18-2024 Functional Status [facility] 02-18-2024 Functional Status [facility] 02-18-2024 Functional Status [facility] 02-18-2024 Functional Status Maintained [facility] 11-03-2018 Are you deaf, or do you have serious difficulty hearing No 11/03/2018 12:09 PM EDT Bekah GarzaRn)(Hist), RN [facility] 11-03-2018 Are you blind, or do you have serious difficulty seeing, even when wearing glasses No 11/03/2018 12:09 PM EDT Bekah GarzaRn)(Hist), RN [facility] 11-03-2018 Do you have serious difficulty walking or climbing stairs No 11/03/2018 12:09 PM EDT Bekah GarzaRn)(Hist), RN No [facility] 11-03-2018 Do you have difficul ty dressing or bathing No 11/03/2018 12:09 PM EDT Bekah GarzaRn)(Hist), RN No [facility] 11-03-2018 Because of a physica l, mental, or emotional condition, do you have difficulty doing errands alone such as visiting a physician's office or shopping No 11/03/2018 12:09 PM EDT Bekah GarzaRn)(Hist), RN No [facility] Mental Status Date Assessment Result Facility 02-19-2024 Mental Status Oriented x 4 [facility] 02-18-2024 Mental Status [facility] 02-18-2024 Mental Status [facility] 11-03-2018 Because of a physica l, mental, or emotional condition, do you have serious difficulty concentrating, remembering, or making decisions No 11/03/2018 12:09 PM EDBkeah Sheridan (Rn)(Hist), RN No [facility] Clinical Notes 12-11-2019 to 12-02-2024 Prudencio Barlow MA - 12/02/2024 8:05 AM EDTTelephone Encounter - Elizabet Heredia - 11/02/2024 1:56 PM EDTTelephone Encounter - Elizabet Heredia - 11/02/2024 1:56 PM EDTPatient Instructions Note Date & Type Note Facility 12-02-2024 Note HNO ID: [id number] Author: PRUDENCIO BARLOW MA Service: ? Author Type: Porcelain Technician Type: Progress Notes Filed: 12/02/2024 08:06 Note Text: Scan on 11/20/2024 4:11 PM by ProviderKaren PA-C: Consultation - Anesthesia/Pain Prudencio Barlow MA [facility] 12-02-2024 History of Present illness Narrative Scan on 11/20/2024 4:11 PM by ProviderKaren PA-C: Consultation - Anesthesia/Pain Prudencio Barlow MA documented in this encounter [facility] [facility]24 Telephone encounter Note Prescription Refill Information [...] Elizabet Heredia November 02, 2024 1:57 PM [facility] 11-02-2024 Miscellaneous Notes Prescription Refill Information The [...] 2024 1:57 PM documented in this encounter [facility] 09-23-2024 Telephone encounter Note Called and spoke with patient. He expressed understanding. [facility] 09-23-2024 Miscellaneous Notes Called and spoke with patient. He expressed understanding. Called patient at [phone]. Left message on voicemail for patient to return call. Images from the original note were not included. Abby Pate MD P [facility] Can you let patient know his health advocate was OK with me switching metoprolol to propranolol, so I sent in for 80 mg propranolol once a day - he can just change one day to the next from metoprolol to this new propanolol dose. Depending on response we could increase propranolol in the future. Thanks documented in this encounter [facility] 09-21-2024 Telephone encounter Note Called patient at [phone]. Left message on voicemail for patient to return call. [facility] 09-18-2024 Telephone encounter Note Images from the original note were not included. Abby Pate MD P [facility] Can you let patient know his health advocate was OK with me switching metoprolol to propranolol, so I sent in for 80 mg propranolol once a day - he can just change one day to the next from metoprolol to this new propanolol dose. Depending on response we could increase propranolol in the future. Thanks [facility] 09-18-2024 Telephone encounter Note Message with results sent to patient in [employer]rock [employer] message. Hemalatha Oneil LPN [facility] 09-18-2024 Miscellaneous Notes Message with results sent to patient in SafeBoott message. Hemalatha Oneil LPN Images from the original note were not included. Marj Mackey MD routed this conversation to [facility] Marj Mackey MD to Anne Cooley 09/18/24 1:54 PM Hey Les Your echocardiogram looks good and the valve continues to function well Lewis Mackey This PeopleJar message has not been read. documented in this encounter [facility] 09-18-2024 Telephone encounter Note Images from the original note were not included. Marj Mackey MD routed this conversation to [facility] Marj Mackey MD to Anne Cooley 09/18/24 1:54 PM Hey Les Your echocardiogram looks good and the valve continues to function well Lewis Mackey This ImaCort message has not been read. [facility] 09-11-2024 Instructions Abby Pate MD - 09/11/2024 [...] sleepiness with it. documented in this encounter [facility] 09-11-2024 Note HNO ID: [id number] Author: ABBY PATE MD Service: ? Author [...] (FLONASE) 50 mcg/actuation nasal spray Use 1 Rigby in each nostril once daily. Rinse mouth [...] REVIEW Actual films (more content not included)... [facility] 09-11-2024 History of Present illness Narrative [...] (FLONASE) 50 mcg/actuation nasal spray Use 1 Rigby in each nostril once daily. Rinse mouth [...] heart history, will touch base with his health advocate if metoprolol could be changed to propranolol [...] Discussed with Patient: YES Abby Pate MD [facility] Neurology documented in this encounter [facility] 08-31-2024 History of Present illness Narrative Images from the original note were not included. [facility] SE[facility]IONAL CARDIOLOGY Cardiology ([address]) [address] [facility] [address] OUTPATIENT VISIT DATE 08/31/2024 PRIMARY CARE PHYSICIAN: Oniel Francis [address] [place] [address] HISTORY OF PRESENT ILLNESS: Mr. Cooley is [...] 06/20/2018 Anticoagulated on Coumadin 01/28/[address] Fracnis: Aortic (per cardio target INR of 2-2.5.), [...] Pt reports he was told by the health advocate that they almost lost him due to [...] fluticasone (FLONASE) 50 mcg/actuation nasal spray^Use 1 Rigby in each nostril once daily. Rinse mouth [...] S1, S2 with regular rate and rhythm. Harris aortic valve sounds noted. CARDIOVASCULAR MEDICINE TESTING: [...] 0.85 which was hemodynamically significant. 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 Coronary 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[place] coronary artery of [place] heart without angina pectoris - ICD9: 414.01, [...] Marj Mackey MD documented in this encounter [facility] 08-31-2024 Note HNO ID: [id number] Author: MARJ MACKEY MD Service: ? Author Type: Physician Type: Progress Notes Filed: 08/31/2024 16:39 Note Text: [facility]AL CARDIOLOGY Cardiology ([address]) [address] [facility] [address] OUTPATIENT VISIT DATE 08/31/2024 PRIMARY CARE PHYSICIAN: Oniel Francis [address] [place] [address] HISTORY OF PRESENT ILLNESS: Mr. Cooley is [...] Aortic valve rep (more content not included)... [facility] 08-03-2024 Telephone encounter Note Prescription Refill [...] Martini LPN August 03, 2024 7:25 AM [facility] 08-03-2024 Miscellaneous Notes Prescription Refill Information The [...] 2024 7:25 AM documented in this encounter [facility] 07-10-2024 Telephone encounter Note The following approved medication requests have been transmitted electronically. Requested Prescriptions Signed Prescriptions Disp Refills levothyroxine (SYNTHROID) 25 mcg tablet 90 tablet 1 Sig: Take 1 tablet by mouth once daily. Take on empty stomach. For thyroid. Authorizing Provider: ONIEL FRANCIS MD [facility] 07-10-2024 Miscellaneous Notes The following approved medication requests have been transmitted electronically. Requested Prescriptions Signed Prescriptions Disp Refills levothyroxine (SYNTHROID) 25 mcg tablet 90 tablet 1 Sig: Take 1 tablet by mouth once daily. Take on empty stomach. For thyroid. Authorizing Provider: ONIEL FRANCIS MD Sent message to [facility] for other medication refill. Prescription Refill [...] you. Daly Art. documented in this encounter [facility] 07-10-2024 Telephone encounter Note Prescription Refill Information [...] Barlow MA July 10, 2024 4:54 PM [facility] 07-10-2024 Miscellaneous Notes Prescription Refill Information The [...] 2024 4:54 PM documented in this encounter [facility] 07-10-2024 Telephone encounter Note Sent message to [facility] for other medication refill. Prescription Refill [...] Barlow MA July 10, 2024 4:52 PM [facility] 07-10-2024 Telephone encounter Note Patient has [...] 02/08/2025 Please advise. Thank you. Daly Art. [facility] 05-11-2024 Telephone encounter Note Patient returned call and went over results, notes from Zina Duran NUT GRADER with understanding. Patient said he has appt on Saturday with Dr Caldwell at [facility] and requesting a copy of report be faxed. Printed and faxed to [phone] as requested. [facility] 05-11-2024 Miscellaneous Notes Patient returned call and went over results, notes from Zina Duran NUT GRADER with understanding. Patient said he has appt on Saturday with Dr Caldwell at [facility] and requesting a copy of report be faxed. Printed and faxed to [phone] as requested. Left message for patient to return call to office Autumn Mares MA Please let patient know refills sent. Also Us results from [facility] negative for DVT ;however does show [...] labs are WNL documented in this encounter [facility] 05-11-2024 Telephone encounter Note Left message for patient to return call to office Autumn Mares MA [facility] 05-11-2024 Telephone encounter Note Please let patient know refills sent. Also Us results from [facility] negative for DVT ;however does show a likely popliteal cyst which could be causing pain. Recommend follow up with ortho. [facility] 05-11-2024 Telephone encounter Note TC to patients , listed in chart to receive medical information, who verbalized understanding of below. asking that refills of atorvastatin and metoprolol be sent to pharmacy. Pended as such if provider agreeable. ROLAN 05/07/2024 NOV 02/08/2025 [facility] 05-08-2024 Telephone encounter Note Please let patient know their labs are WNL [facility] 05-08-2024 Telephone encounter Note Patient Elizabet calling having problem scheduling ultrasound for his legs at [facility]. She was told office has to call to schedule. This nurse called and spoke to scheduling Rosalia and scheduled STAT ultrasound of his legs today at 1 pm patient to be there at 1245 pm. Phoned patient back and gave instructions, told may want to be earlier since construction is going on at [facility] area. Phoned imaging scheduler and cancelled appt for [place] for this afternoon. [facility] 05-08-2024 Miscellaneous Notes Patient Elizabet calling having problem scheduling ultrasound for his legs at [facility]. She was told office has to call to schedule. This nurse called and spoke to scheduling Rosalia and scheduled STAT ultrasound of his legs today at 1 pm patient to be there at 1245 pm. Phoned patient back and gave instructions, told may want to be earlier since construction is going on at [facility] area. Phoned imaging scheduler and cancelled appt for [place] for this afternoon. documented in this encounter [facility] 05-08-2024 Telephone encounter Note Approval received. Pt will call [facility] to schedule Autumn Mares MA [facility] 05-08-2024 Miscellaneous Notes Approval received. Pt will call [facility] to schedule Autumn Mares MA Referral placed. Waiting to hear back from pre access if approved Autumn Mares MA Please check to see if [facility] has availability. If so please fax order. Pt called to check schedule in [facility] for [place]. There are no appointments available here tomorrow. He would like to check at the [facility] if the order could be sent there to check appointment availability tomorrow. He kept the [place] appointment just in case we find that the [facility] can't accommodate tomorrow. documented in this encounter [facility] 05-08-2024 Telephone encounter Note Referral placed. Waiting to hear back from pre access if approved Autumn Mares MA [facility] 05-07-2024 Telephone encounter Note Please check to see if [facility] has availability. If so please fax order. [facility] 05-07-2024 Telephone encounter Note Pt called to check schedule in [facility] for [place]. There are no appointments available here tomorrow. He would like to check at the [facility] if the order could be sent there to check appointment availability tomorrow. He kept the [place] appointment just in case we find that the [facility] can't accommodate tomorrow. [facility] Work Phone: 05-07-2024 Note HNO ID: [id number] Author: ZINA DURAN APRN.TEMPORARY ADMINISTRATIVE ASSISTANT Service: ? Author Type: Nurse Practitioner Type: [...] TONSILLECTOMY HX TOTA (more content not included)... [facility] 05-07-2024 History of Present illness Narrative [...] Pt reports he was told by the health advocate that they almost lost him due to [...] (FLONASE) 50 mcg/actuation nasal spray Use 1 Rigby in each nostril once daily. Rinse mouth [...] - US DVT LOWER BILATERAL Zina Duran APRN.TEMPORARY ADMINISTRATIVE ASSISTANT documented in this encounter [facility] 04-07-2024 Miscellaneous Notes Ordering labs for next year's wellness exam. Ella Valdovinos PA-C documented in this encounter [facility] 04-07-2024 Telephone encounter Note Ordering labs for next year's wellness exam. Ella Valdovinos PA-C [facility] 04-07-2024 Note HNO ID: [id number] Author: ELLA VALDOVINOS PA-C Service: ? Author Type: Physician Director Religious Education Type: Progress Notes Filed: 04/07/2024 11:07 Note [...] AGE 6 Y (more content not included)... [facility] 04-07-2024 History of Present illness Narrative [...] Pt reports he was told by the health advocate that they almost lost him due to [...] (FLONASE) 50 mcg/actuation nasal spray Use 1 Rigby in each nostril once daily. Rinse mouth [...] Ella Valdovinos PA-C documented in this encounter [facility] 03-11-2024 Instructions Abby Pate MD - 03/11/2024 [...] extra movements (dyskinesia). documented in this encounter [facility] 03-11-2024 Note HNO ID: [id number] Author: ABBY PATE MD Service: ? Author [...] (FLONASE) 50 mcg/actuation nasal spray Use 1 Rigby in each nostril once daily. Rinse mouth [...] no bradykinesia, no rigidity. No dyskinesia today. Student Career Development Specialist (more content not included)... [facility] 03-11-2024 History of Present illness Narrative [...] (FLONASE) 50 mcg/actuation nasal spray Use 1 Rigby in each nostril once daily. Rinse mouth [...] Discussed with Patient: YES Abby Pate MD [facility] Neurology documented in this encounter [facility] 02-25-2024 Telephone encounter Note Call placed to patient and notified of provider message below. Patient verbalizes understanding and will continue taking Flomax. Stacy Varghese RN [facility] 02-25-2024 Miscellaneous Notes Call placed to patient [...] Jessica Brown LPN documented in this encounter [facility] 02-25-2024 Telephone encounter Note Please let patient know it can take 2-6 weeks for medication to become effective. [facility] Work Phone: 02-24-2024 Telephone encounter Note Spoke to patient and . Pt states he is taking the Flomax and he is urinating more than before he started the medication. Autumn Mraes MA [facility] 02-24-2024 Telephone encounter Note Is patient currently taking flomax? If he has not started medication he may start it. If he is taking it is he going more or less than before starting medication? [facility] 02-24-2024 Telephone encounter Note Pt and call [...] much sleep at night. Jessica Brown LPN [facility] 02-19-2024 Note Discharge Instructions Thank you for allowing [facility] to assist you with your healthcare needs. The following is important discharge information regarding your hospital visit. Your Care Team Dr Dean Caldwell Your Diagnosis CAD (coronary artery disease) DVT (deep venous thrombosis) Hypertension Hypothyroidism Parkinson's disease Postoperative hypoxia Status post total left knee replacement What to do next Follow Up Appointments Follow Up with ONIEL FRANCIS When:Only if needed Where:[address] [place] [address]- Business (1) Follow Up with CHRIS COX When:In 2 weeks Where:[facility] [address] [place] [address]- Business (1) Someone Will Contact You Regarding [...] to exceed 3000 mg/ day Pickup at [facility]/pharmacy #2657 New docusate-senna (Senokot S) 2 tab(s) by mouth Two (2) times a day Take until first bowel movement, then as needed New famotidine (Pepcid 20 mg oral tablet) 1 tab(s) by mouth Once a day Pickup at [facility]/pharmacy #3321 New oxyCODONE (oxyCODONE 5 mg oral tablet ( IMMEDIATE release )) See instructions Status post total left knee replacement 1-2 tab(s) Oral q4h, As needed for as needed for pain Pickup at [facility]/pharmacy #3321 New rivaroxaban (Xarelto 10 mg oral tablet) 1 tab(s) by mouth Once a day Status post total left knee replacement 1 tablet daily for 2 weeks postoperatively due to past history of DVT Pickup at [facility]/pharmacy #3321 Unchanged acetaminophen-diphenhydramine (Tylenol PM Extra [...] by mouth Once a day Pharmacy Information [facility]/pharmacy #3321: [address] [place], [place] [id number] [phone] Please take this list to your next [...] FOR SIGNS OF INFECTION: call the office ([phone]) if experencing any of the following: (Usually [...] on your follow up instructions. Form: 338A (30454) R: 12/09 Additional Information VACCINATE! IT SAVES LIVES! Members of the community who have not yet received the COVID-19 vaccine and would like to receive it can visit one of [facility] vaccine clinics. There are many vaccine clinic locations within the [facility]. For locations and available times, please visit [email or web address] It is important to note that some COVID mobile vaccine clinics are held outdoors and may be canceled in rainy or stormy conditions. To learn more about pediatric vaccinations (ages 5-11), we invite you to visit the [facility] webpage. [email or web address] -[email or web address] To learn more about the COVID-19 vaccine, we invite you to visit the CDC website for a list of frequently asked questions.https://www.cdc.gov/coron avirus/2019-ncov/vaccines/faq.html [facility] Patient [facility] Access Instructions: Stay connected with your healthcare team and access your personal medical information anytime with the [facility] Patient Portal. Please follow the directions below to create your [facility] account: 1.Access the email account you provided upon registration to the hospital/physician office.2.Look for an invitation email from [facility].3.Open the email and access the invitation link: Accept Invitation to [facility].4.Fill in the required freeman to create your account. To access your account, visit [email or web address]. Click the blue button labeled Access Patient [...] you will allow to register on the [facility] Patient Portal for access to your information. You can also access the [facility] Patient Portal on the [facility] marti. Simply click on Patient Portal and then log into your account. If you would like to receive a full copy of your medical records, please contact the [facility] Medical Records Department by calling [phone], Saturday through Saturday between 8 a.m. and [...] Call your local pharmacy or go to [email or web address] to find one close to you.3.Make use of household items: Use cat litter or old coffee grounds to dispose medications if other options are not available. Mix your drugs with these household products, seal them in an airtight container and throw it into the garbage. Call [facility]: [phone] to be sure your drugs can be [...] a CHART COPY. Signatures Patient Education Materials [address] [place] [address] Post-op Instruction 03/2017 (32736) Medication Leaflets My discharge plan and instructions have been reviewed and explained to me and I,SONIYA COOLEY understand my current condition and have read and understand these discharge instructions. I have received a written copy of the plan/instructions. If I have questions, I am aware that I should contact my doctor. Patient/Web Designer Signature: ____ Date/Time: Relationship to Patient: __ Witness Name/Signature: Date/Time: [facility] 02-19-2024 Note Date of Service February 19, [...] would like his prescriptions E scribed to [facility] in [facility]. He has outpatient physical therapy established. He will follow-up per postoperative instructions. Upon discharge he will contact our office with any concerns or questions. I have reviewed the [place] Automated Rx Reporting System (OARRS) report for [...] CHRIS COX PA-C on 02/19/2024 08:40 AM [facility] 02-19-2024 Hospital Discharge instructions Patient Education 02/19/2024 08:40:59 5 - [facility] Post-op Instruction 03/2017 (79035) [facility] Post-operative Instructions PLEASE FOLLOW [facility] POST-OP INSTRUCTIONS GIVEN WATCH FOR SIGNS OF INFECTION: call the office ([phone]) if experencing any of the following: (Usually [...] on your follow up instructions. Form: 338A (73279) R: 12/09 Follow Up Care 01/09/2024 07:46:38 With:ONIEL FRANCIS Address: [address] [place] [address]- Business (1) When: only if needed With:CHRIS COX Address: [facility] [address] [place] [address] Business (1) When:Within 2 Week(s) [facility] 02-19-2024 Note Date of Service February 19, [...] would like his prescriptions E scribed to [facility] in [facility]. He has outpatient physical therapy established. He will follow-up per postoperative instructions. Upon discharge he will contact our office with any concerns or questions. I have reviewed the [place] Automated Rx Reporting System (OARRS) report for [...] CHRIS COX PA-C on 02/19/2024 08:40 AM [facility] 02-18-2024 Note ORIGINAL EXAMINATION: TWO XRAY VIEWS [...] Date: 02/18/2024 3:48:22 PM Ordering Provider: [facility] 02-18-2024 Anesthesiology Consult note Patient: SONIYA COOLEY Age: 83 years Sex: Male : 1940 Associated Diagnoses: None Author: HUSEYIN ANGELO APRN-CASER SHOE PARTS Preoperative Information Time of last food or [...] or recorded. Procedure history: Arthroplasty of knee ([id number]) on 02/18/2024 at 83 Years. 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 Tonsillectomy and adenoidectomy (126424712). Colonoscopy (543230188). Cholecystectomy (04476438). CABG x 4 - Coronary artery bypass grafts x 4 ([id number]). Social History: Social & Psychosocial Habits Alcohol [...] Signs (last 24 hrs) Last Charted Temp Zypqqwsy73.6 DegC (FEB 17 11:01) Heart Rate Tfrwvfuir93 bpm (FEB 17 13:55) RWQ180 mmHg (FEB 17 13:55) DBP59 mmHg (FEB 17 13:55) Measurements from flowsheet : Measurements 02/18/2024 11:01 EDT Height 170.2 cm Admission Weight 88 kg [place] Body Weight 66.12 kg Admission Body Mass [...] Integrity Intact/Dry 02/18/2024 13:19 EDT SN - [place] - Medication SODIUM CHLORIDE 0.9% 43.95ML SN - [place] - Medication SODIUM CHLORIDE 0.9% 43.95ML SN - [place] - Medication SODIUM CHLORIDE 0.9% 50ML SN - [place] - Route of Administration Local SN - [place] - Route of Administration Local SN - [place] - Route of Administration Topical SN - [place] - By (Single) SN - [place] - By (Single) SN - [place] - By (Single) SN - [place] - By (Single) SN - [place] - By (Single) SN - [place] - By (Single) 02/18/2024 13:16 EDT SN [...] Surgeon SN - CAt - Role Performed Mechanical Systems Designer 1 SN - CAt - Role Performed Scrub 1 SN - CAt - Role Performed Scrub 1 SN - CAt - Role Performed Security Operations Manager 1 SN - CAt - Role Performed CASER [employer]S SN - CAt - Role Performed Aviculturist SN - CAt - Role Performed Aviculturist SN - CAt - Role Performed Physician Director Religious Education 02/18/2024 12:41 EDT citric acid-sodium citrate Not [...] Height 170.2 cm Admission Weight 88 kg [place] Body Weight 66.12 kg Admission Body Mass [...] Quadrants Present Skin Temperature Warm Skin Description [place] Skin Integrity Intact Mucous Membrane Color [place] Skin Moisture General Dry Neurological Symptoms Patient [...] Person #1 We May Share MARIS MCNEAL [phone] Designated Person #1 Relationship Spouse Privacy Restrictions Requested None Status N/A Sensory Deficits None Sleep Apnea Snore Yes Sleep Apnea Tired Yes Sleep Apnea Obstruction No Sleep Apnea Pressure Yes Sleep Apnea BMI No Sleep Apnea Age Yes Sleep Apnea Neck No Sleep Apnea Gender Yes Sleep Apnea Score 5 HI Diagnosed With Sleep Apnea No Advanced Directives Yes Advance Directive Type [place] Durable Power of Brick Paver for [place], [place] Declaration (Living Will) Advance Directive Location [...] Method Explanation, Printed materials Preferred Spoken Language Palestinian Preferred Written Language Palestinian Teaching Evaluation Verbalizes/Nonverbally indicates understanding Total Joint [...] Allergies Yes Anesthesia Extension Set Applied Yes Restaurant Hourly Manager On Yes Consent Form Signed Yes Patient [...] Intake 02/17/2024 22:00 . Assessment and Plan [place] [employer] Anesthesiologists (ASA) physical status classification: Class III. Anesthetic Preoperative Plan Premedication: intravenous. Anesthetic technique: Spinal. Induction: intravenously. Maintenance airway: 40%. Regional: Adductor Canal Block. Postoperative pain management: Per surgeon. Informed consent: signed by patient. Digitally Signed by HUSEYIN ANGELO on 02/18/2024 02:08 PM [facility] 02-12-2024 Telephone encounter Note Katia calling from [facility], pt is there for a pre op appt. Requesting last 2 chest xrays. Xrays from 12/14/23 & 01/31/24 faxed to [phone]. Shae Morrissey LPN [facility] 02-12-2024 Miscellaneous Notes Katia calling from [facility], pt is there for a pre op appt. Requesting last 2 chest xrays. Xrays from 12/14/23 & 01/31/24 faxed to [phone]. Shae Morrissey LPN documented in this encounter [facility] 02-10-2024 Instructions Ella Valdovinos PA-C - 02/10/2024 [...] review all the medicines you take, even diqx-qsx-[id number] medicines. As you get older, the way [...] certain medical conditions. documented in this encounter [facility] 02-10-2024 Note HNO ID: [id number] Author: ELLA VALDOVINOS PA-C Service: ? Author Type: Physician Director Religious Education Type: Progress Notes Filed: 02/10/2024 12:14 Note [...] 12/01/2013 Postsurgical aort (more content not included)... [facility] 02-10-2024 History of Present illness Narrative [...] Pt reports he was told by the health advocate that they almost lost him due to [...] (FLONASE) 50 mcg/actuation nasal spray Use 1 Rigby in each nostril once daily. Rinse mouth [...] Abs Lymph 1.00 - 4.00 k/uL 3.12 Amador% % 9.5 Abs Amador <0.87 k/uL 0.68 Eosin% % 5.6 Abs Eosin <0.46 k/uL 0.40 Baso% % 0.6 Abs Baso <0.11 k/uL 0.04 Immature Gran % % 0.3 IMMATURE GRANS (ABS) <0.10 k/uL <0.03 NRBC /100 WBC 0.0 Absolute nRBC <0.01 k/uL <0.01 DTYPE Auto Color Yellow Yellow Clarity Clear Clear Glucose, Urine Negative Negative Bilirubin, Urine Negative Negative Ketones, Urine Negative Negative Specific [place], Ur 1.005 - 1.030 1.020 Hemoglobin/Blood,Ur Negative [...] aerobic exercise 9. Coronary 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[place] coronary artery of [place] heart without angina pectoris - ICD9: 414.01, [...] which included preparing to see the patient, [id number] patient care, completing clinical documentation, obtaining and/or reviewing separately obtained history, performing a medically appropriate examination, counseling and educating the patient/family/caregiver, ordering medications, tests, or procedures, and communicating results to the patient/family/caregiver. documented in this encounter [facility] 02-05-2024 Note HNO ID: [id number] Author: ZINA SANTIAGO MA Service: ? Author Type: Porcelain Technician Type: Progress Notes Filed: 02/05/2024 12:20 Note Text: POPULATION HEALTH NAVIGATION OUTREACH Action/FYI Patient is on [facility] CURRENT ROSTER Workbench list for below and [...] Santiago MA February 05, 2024 12:19 PM [facility] 02-05-2024 History of Present illness Narrative POPULATION HEALTH NAVIGATION OUTREACH Action/FYI Patient is on [facility] CURRENT ROSTER Workbench list for below and [...] 2024 12:19 PM documented in this encounter [facility] 02-05-2024 Telephone encounter Note Patient calls and notified of results. Patient verbalizes understanding. Stacy Varghese RN [facility] 02-05-2024 Miscellaneous Notes Patient calls and notified of results. Patient verbalizes understanding. Stacy Varghese RN Left additional message for patient to contact office. Prudencio Barlow MA Left message for pt to contact office. Hazel Sellers LPN Repeat CXR is normal. Ella Valdovinos PA-C documented in this encounter [facility] 02-05-2024 Note Patient Outreach (NE TNAV) SONIYA COOLEY ([id number]) 1940 M Date Time Provider Department 02/05/24 ZINA SANTIAGO [facility] During your visit today, we recorded the following information about you: Zina Santiago MA 02/05/2024 12:20 PM Signed POPULATION HEALTH NAVIGATION OUTREACH Action/FYI Patient is on [facility] CURRENT ROSTER Workbench list for below and [...] Pt reports he was told by the health advocate that they almost lost him due to his reaction and was allergic reaction. The patient reports taking 13 hour allergy premedications in the past with Iodinated contrast without experiencing any breakthrough reaction. PENICILLIN G 10/09/2002 4 - Hives Date Reviewed: 12/31/2023 Reviewed by: Oniel Francis MD - Fully Assessed Reason for Visit: Population Health Navigation Outreach [3910] Cmt: [facility] 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 - AWV, Care gaps, - [facility] Prescriptions as of 02/05/2024 - levothyroxine [...] (FLONASE) 50 mcg/actuation nasal spray Use 1 Rigby in each nostril once daily. Rinse mouth [...] disorder [G47.9] 07/26/2015 Coronary 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[place] ballard*08/24/2015 Meniscus tear [S83.209A] 12/27/2015 Elevated blood sugar [R73.9] 06/19/2016 Seasonal allergies [J30.2] 12/17/2016 01/14/2020 Medicare annual wellness visit, subsequent [Z00*12/17/2016 Colon cancer screening [Z12.11] 12/17/2016 01/14/2020 Synovial cyst of right popliteal space [M71.21] 01/28/2017 History of DVT (deep vein thrombosis) [Z86.718] 06/19/2017 Nasir (more content not included)... [facility] 02-04-2024 Telephone encounter Note Left additional message for patient to contact office. Prudencio Barlow MA [facility] 02-03-2024 Telephone encounter Note Left message for pt to contact office. Hazel Sellers LPN [facility] 02-03-2024 Telephone encounter Note Repeat CXR is normal. Ella Valdovinos PA-C [facility] 01-31-2024 History of Present illness Narrative Radiology [...] PATIENT PRESENTS WITH AN IMPLANTABLE OR ATTACHED KITCHEN OPERATOR: No RADIOLOGY DEPARTMENT: General X-ray: Exam(s) Completed: Chest X-Ray PERIPHERAL IV DATA: Not applicable SIGNED BY: RT Teresa(Elvira) January 31, 2024 8:11 AM documented in this encounter [facility] 01-31-2024 Note HNO ID: [id number] Author: IFEANYI WILOCX RT(R) Service: Radiology Author Type: Technologist Type: [...] PATIENT PRESENTS WITH AN IMPLANTABLE OR ATTACHED KITCHEN OPERATOR: No RADIOLOGY DEPARTMENT: General X-ray: Exam(s) Completed: Chest X-Ray PERIPHERAL IV DATA: Not applicable SIGNED BY: RT Teresa(R) January 31, 2024 8:11 AM [facility] 01-27-2024 Note ORIGINAL EXAMINATION: CT OF [...] Date: 01/27/2024 1:37:20 PM Ordering Provider: [facility] 12-31-2023 Instructions Oniel Francis MD - 12/31/2023 11:44 AM EDT Come in to get the repeat chest x-ray on or after 01/17/2024 along with labs and urine test. You do not need to fast. documented in this encounter [facility] 12-31-2023 Note HNO ID: [id number] Author: ONIEL FRANCIS MD Service: ? Author Type: Physician Type: Progress Notes Filed: 12/31/2023 19:09 Note Text: Chief Complaint Patient presents with: Follow Up HPI Soniya Cooely is a 83 year old male who [...] INC 12/24/2008 Endarterec (more content not included)... [facility] 12-31-2023 History of Present illness Narrative [...] Pt reports he was told by the health advocate that they almost lost him due to [...] (FLONASE) 50 mcg/actuation nasal spray Use 1 Rigby in each nostril once daily. Rinse mouth [...] Data reviewed Results XR CHEST 2V FRONTAL/LAT (Acc#[id number] ) (Order [id number]) Patient Info Patient Name Sex Soniya Camacho ([id number]) Male 1940 12/14/2023 1:34 PM - Radiology, [place] Impression IMPRESSION: Questionable vague hazy opacity in the left midlung. Consider short-term follow-up. Medical Physics Researcher: GEOFFREY Transcribe Date/Time: Dec 14 2023 1:30P [...] Oniel Francis MD documented in this encounter [facility] 12-23-2023 History of Present illness Narrative Images from the original note were not included. [facility] SECTION OF REGIONAL CARDIOLOGY Cardiology ([facility]) [address] [id number] OUTPATIENT VISIT DATE 12/23/2023 PRIMARY CARE PHYSICIAN: Oniel Francis [address] [place] [address] HISTORY OF PRESENT ILLNESS: Mr. Cooley is [...] () Meniscus tear 12/27/2015 Right, minimal. [facility] Microscopic hematuria 01/10/2021 Saw Luc[facility] 02/2021 [...] Pt reports he was told by the health advocate that they almost lost him due to [...] fluticasone (FLONASE) 50 mcg/actuation nasal spray^Use 1 Rigby in each nostril once daily. Rinse mouth [...] S1, S2 with regular rate and rhythm. Harris aortic valve sounds noted. CARDIOVASCULAR MEDICINE TESTING: [...] 0.85 which was hemodynamically significant. 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 Coronary 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[place] coronary artery of [place] heart without angina pectoris - ICD9: 414.01, [...] Marj Mackey MD documented in this encounter [facility] 12-23-2023 Note HNO ID: [id number] Author: MARJ MACKEY MD Service: ? Author Type: Physician Type: Progress Notes Filed: 12/23/2023 16:30 Note Text: [facility] SECTION OF REGIONAL CARDIOLOGY Cardiology ([facility]) [address] [id number] OUTPATIENT VISIT DATE 12/23/2023 PRIMARY CARE PHYSICIAN: Oniel Francis [address] [place] [address] HISTORY OF PRESENT ILLNESS: Mr. Cooley is [...] 1997 Cardiac cath, (more content not included)... [facility] 12-17-2023 Telephone encounter Note Patient's scheduled for appointment on 12/31/2023. Michelle Herring RN [facility] 12-17-2023 Miscellaneous Notes Patient's scheduled for appointment on 12/31/2023. Michelle Herring RN Left message for patient to contact office. Prudencio Barlow MA Needs f/u in 3 weeks within [facility] for f/u pneumonia and repeat chest x-ray to see if vague hazy opacity in left mid lung has resolved. documented in this encounter [facility] 12-17-2023 Telephone encounter Note Left message for patient to contact office. Prudencio Barlow MA [facility] 12-16-2023 Telephone encounter Note Needs f/u in 3 weeks within [facility] for f/u pneumonia and repeat chest x-ray to see if vague hazy opacity in left mid lung has resolved. [facility] 12-14-2023 History of Present illness Narrative Radiology [...] PATIENT PRESENTS WITH AN IMPLANTABLE OR ATTACHED KITCHEN OPERATOR: No RADIOLOGY DEPARTMENT: General X-ray: Exam(s) Completed: Chest X-Ray PERIPHERAL IV DATA: Not applicable SIGNED BY: RT Marjorie(R) December 14, 2023 11:44 AM documented in this encounter [facility] 12-14-2023 Note HNO ID: [id number] Author: GEORGE LYMAN RT(Elvira) Service: ? Author [...] PATIENT PRESENTS WITH AN IMPLANTABLE OR ATTACHED KITCHEN OPERATOR: No RADIOLOGY DEPARTMENT: General X-ray: Exam(s) Completed: Chest X-Ray PERIPHERAL IV DATA: Not applicable SIGNED BY: RT Marjorie(Elvira) December 14, 2023 11:44 AM [facility] 12-14-2023 Note HNO ID: [id number] Author: SHAMAR BARLOW APRN.TEMPORARY ADMINISTRATIVE ASSISTANT Service: ? Author Type: Nurse Practitioner Type: [...] OCCULT BLOOD TEST (more content not included)... [facility] 12-14-2023 History of Present illness Narrative [...] fluticasone (FLONASE) 50 mcg/actuation nasal spray^Use 1 Rigby in each nostril once daily. Rinse mouth [...] in the left midlung. Consider short-term follow-up. Medical Physics Researcher: GEOFFREY Transcribe Date/Time: Dec 14 2023 1:30P [...] Patient agreeable to treatment plan. Shamar Barlow APRN.TEMPORARY ADMINISTRATIVE ASSISTANT documented in this encounter [facility] 11-12-2023 History of Present illness Narrative POPULATION HEALTH NAVIGATION OUTREACH Action/FYI Contacted patient to schedule [place] Annual Wellness Visit, care gaps and HCCs [...] 2023 3:16 PM documented in this encounter [facility] 09-11-2023 Instructions Abby Pate MD - 09/11/2023 2:08 PM EST Continue the same dose of medication today, consider compressing the times to every 5 hours. Try to stay physically active, consider stationary bike if it doesn't trigger too much pain. Ask your doctor about medications for urination overnight. Continue the miralax for constipation. documented in this encounter [facility] 09-11-2023 History of Present illness Narrative Neurology [...] (FLONASE) 50 mcg/actuation nasal spray Use 1 Rigby in each nostril once daily. Rinse mouth [...] Discussed with Patient: n/a Abby Pate MD [facility] Neurology documented in this encounter [facility] 06-24-2023 Instructions Marj Mackey MD - 06/24/2023 4:28 PM EST We are ordering an echocardiogram and a carotid ultrasound documented in this encounter [facility] 06-24-2023 History of Present illness Narrative Images from the original note were not included. [facility] SECTION OF REGIONAL CARDIOLOGY Cardiology ([address]) [address] [facility] [id number] OUTPATIENT VISIT DATE 06/24/2023 PRIMARY CARE PHYSICIAN: Oniel Francis [address] [place] [address] HISTORY OF PRESENT ILLNESS: Mr. Cooley is [...] Pt reports he was told by the health advocate that they almost lost him due to [...] (FLONASE) 50 mcg/actuation nasal spray Use 1 Rigby in each nostril once daily. Rinse mouth [...] S1, S2 with regular rate and rhythm. Harris aortic valve sounds noted. CARDIOVASCULAR MEDICINE TESTING: Cardiac Catheterization August 2018 Findings: Left main Normal LAD 50% mid stenosis LCx (dominant) severe diffuse proximal disease RCA 100% mid occlusion (non-dominant per records) SVG to Diagonal, AV groove LCx, LPDA patent IFR of the 50% stenosis in the mid LAD was 0.85 which was hemodynamically significant. 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 Coronary 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[place] coronary artery of [place] heart without angina pectoris - ICD9: 414.01, [...] Marj Mackey MD documented in this encounter [facility] 03-20-2023 Instructions Abby Pate MD - 03/20/2023 12:03 PM EDT Lets keep things the same today. We could consider compressing the times of your doses to every 5 hours to try to reduce OFF time. Try to keep an eye on when you're feeling better or worse in comparison to medicine timing. Try to increase activitiy. documented in this encounter [facility] 03-20-2023 History of Present illness Narrative Neurology [...] (FLONASE) 50 mcg/actuation nasal spray Use 1 Rigby in each nostril once daily. Rinse mouth [...] normal. Last dose levodopa 300 mg @ 1357-6432, exam 1200. Mildly ON. Motor: Muscle bulk [...] Discussed with Patient: n/a Abby Pate MD [facility] Neurology documented in this encounter [facility] 03-19-2023 Miscellaneous Notes Pharmacy requesting refills as follows via ERAR: ROLAN: 06/18/2022 NOV: 03/20/2023 Requested Prescriptions Pending Prescriptions Disp Refills carbidopa-levodopa (SINEMET 25-100) 25-100 mg per tablet [Pharmacy Med Name: CARB/LEVO TAB 25-100MG] 810 tablet 2 Sig: TAKE 3 TABLETS 3 TIMES A DAY Please review and advise. Amy Garcia documented in this encounter [facility] 12-12-2022 Miscellaneous Notes Pt calling to let office know that [facility] ordered Meloxicam for him. He wanted to be sure it was ok to take with his other medications. Added to med list. No contraindications listed. I verified with loans officer. Ana Quigley documented in this encounter [facility] 11-08-2022 Miscellaneous Notes Patient has been identified [...] Mayra Breaux LPN documented in this encounter [facility] 11-07-2022 Miscellaneous Notes Patient called this nurse requesting clarification about possibly needing an echocardiogram. Patient reports understanding of plan of care that Dr. Mackey May consider repeat echocardiogram later this year. At 6 month follow up after this nurse reviewed MD note from appointment on 10/29/22. Zoe Madrid RN documented in this encounter [facility] 10-29-2022 History of Present illness Narrative Images from the original note were not included. [facility] SECTION OF REGIONAL CARDIOLOGY Cardiology ([facility]) [address] [id number] OUTPATIENT VISIT DATE 10/29/2022 PRIMARY CARE PHYSICIAN: Oniel Francis [address] [place] [address] HISTORY OF PRESENT ILLNESS: Mr. Cooley is [...] () Meniscus tear 12/27/2015 Right, minimal. [facility] 01/10/2021 Saw [facility] 02/2021 [...] Pt reports he was told by the health advocate that they almost lost him due to [...] (FLONASE) 50 mcg/actuation nasal spray Use 1 Rigby in each nostril once daily. Rinse mouth [...] S1, S2 with regular rate and rhythm. Harris aortic valve sounds noted. CARDIOVASCULAR MEDICINE TESTING: Cardiac Catheterization August 2018 Findings: Left main Normal LAD 50% mid stenosis LCx (dominant) severe diffuse proximal disease RCA 100% mid occlusion (non-dominant per records) SVG to Diagonal, AV groove LCx, LPDA patent IFR of the 50% stenosis in the mid LAD was 0.85 which was hemodynamically significant. 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 Coronary 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[place] coronary artery of [place] heart without angina pectoris - ICD9: 414.01, [...] Marj Mackey MD documented in this encounter [facility] 07-18-2022 Miscellaneous Notes Pharmacy requesting refills as follows via ERAR: ROLAN: 06/18/22 NOV: not scheduled Requested Prescriptions Pending Prescriptions Disp Refills carbidopa-levodopa (SINEMET 25-100) 25-100 mg per tablet [Pharmacy Med Name: CARB/LEVO TAB 25-100MG] 810 tablet 2 Sig: TAKE 3 TABLETS 3 TIMES A DAY Please review and advise. Moni Encarnacion documented in this encounter [facility] 06-26-2022 Miscellaneous Notes Patient calls and notified [...] carbs in diet. documented in this encounter [facility] 06-22-2022 Instructions Oniel Francis MD - 06/22/2022 9:16 AM EST Please get labs and urine test done on or after 12/07/2022 prior to your next visit. documented in this encounter [facility] 06-22-2022 History of Present illness Narrative Chief [...] () Meniscus tear 12/27/2015 Right, minimal. [facility] 01/10/2021 Saw [facility] 02/2021 [...] Pt reports he was told by the health advocate that they almost lost him due to [...] (FLONASE) 50 mcg/actuation nasal spray Use 1 Rigby in each nostril once daily. Rinse mouth [...] Abs Lymph 1.00 - 4.00 k/uL 2.93 Amador% % 9.2 Abs Amador <0.87 k/uL 0.61 Eosin% % 2.0 Abs [...] check A1c 4. Coronary 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[place] coronary artery of [place] heart without angina pectoris - ICD9: 414.01, [...] Oniel Francis MD documented in this encounter [facility] 06-18-2022 History of Present illness Narrative VIRTUAL [...] (FLONASE) 50 mcg/actuation nasal spray Use 1 Rigby in each nostril once daily. Rinse mouth [...] Discussed with Patient: YES Abby Pate MD [facility] Neurology documented in this encounter [facility] 05-11-2022 Miscellaneous Notes The following approved medication [...] Last refill: 11/2021 documented in this encounter [facility] 04-30-2022 Instructions Marj Mackey MD - 04/30/2022 10:36 AM EDT We are adding Zetia 10 mg once per day Repeat fasting blood work in 3-4 months We are scheduling you for an ultrasound of the carotids documented in this encounter [facility] 04-30-2022 History of Present illness Narrative Images from the original note were not included. [facility] SECTION OF REGIONAL CARDIOLOGY Cardiology ([facility]) [address] [id number] OUTPATIENT VISIT DATE 04/30/2022 PRIMARY CARE PHYSICIAN: Oniel Francis [address] [place] [address] REFERRING PHYSICIAN: SELF CHIEF COMPLAINT: Establish new [...] Pt reports he was told by the health advocate that they almost lost him due to [...] (FLONASE) 50 mcg/actuation nasal spray Use 1 Rigby in each nostril once daily. Rinse mouth [...] S1, S2 with regular rate and rhythm. Harris aortic valve sounds noted. CARDIOVASCULAR MEDICINE TESTING: Cardiac Catheterization August 2018 Findings: Left main Normal LAD 50% mid stenosis LCx (dominant) severe diffuse proximal disease RCA 100% mid occlusion (non-dominant per records) SVG to Diagonal, AV groove LCx, LPDA patent IFR of the 50% stenosis in the mid LAD was 0.85 which was hemodynamically significant. 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 Coronary 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[place] coronary artery of [place] heart without angina pectoris - ICD9: 414.01, [...] Marj Mackey MD documented in this encounter [facility] 04-23-2022 History of Present illness Narrative Patient [...] (FLONASE) 50 mcg/actuation nasal spray Use 1 Rigby in each nostril once daily. Rinse mouth [...] Pt reports he was told by the health advocate that they almost lost him due to [...] Naun Monterroso MD documented in this encounter [facility] 04-23-2022 History of Present illness Narrative 01 documented in this encounter [facility] 02-19-2022 History of Present illness Narrative Images from the original note were not included. Subjective HPI HPI Sonyia Cooley is a 81 year old male [...] (FLONASE) 50 mcg/actuation nasal spray Use 1 Rigby in each nostril once daily. Rinse mouth [...] MG TABLET Agrees to plan Charan Roman APRN.TEMPORARY ADMINISTRATIVE ASSISTANT documented in this encounter [facility] 12-15-2021 Instructions Abby Pate MD - 12/15/2021 3:52 PM EDT Continue the same dose of medication today. Continue to exercise as much as possible. Consider melatonin for dream enactment behavior - 5 mg a couple hours before bed for 2 weeks then increase to 10 mg if no improvement. documented in this encounter [facility] 12-15-2021 History of Present illness Narrative FOLLOW [...] (FLONASE) 50 mcg/actuation nasal spray Use 1 Rigby in each nostril once daily. Rinse mouth [...] Discussed with Patient: n/a Abby Pate MD [facility] Neurology documented in this encounter [facility] 11-08-2021 Miscellaneous Notes Pt notified of same and that rx's have lacie sent as requested. Hazel Sellers LPN Please let patient know to contact us for refills. Prescription sent Ella Valdovinos PA-C Please send both medications to mail order pharmacy, [facility]. The pharmacy has been trying to reach the office with no reply. documented in this encounter [facility] 01-10-2021 History of Past i llness Narrative [...] of this encounter (statuses as of 03/19/2023) [facility] History of Past illness Narrative* Problem Noted [...] of this encounter (statuses as of 03/21/2023) [facility] History of Past illness Narrative* Problem Noted [...] of this encounter (statuses as of 06/25/2023) [facility] History of Past illness Narrative* Problem Noted [...] aortic valve, Excellent quality and flow in LLNAOS and good size LAD target Plan: ASA Family history of malignant neoplasm of gastrointestinal tract 01/14/2020 documented as of this encounter (statuses as of 09/12/2023) [facility] History of Past illness Narrative* Problem Noted [...] of this encounter (statuses as of 11/13/2023) [facility]03-04-2021 NoteHNO ID: [id number] Author: Abby Pate Service: ? Author Type: [...] (FLONASE) 50 mcg/actuation nasal spray Use 1 Rigby in each nostril once daily. Rinse mouth [...] OFF ON MDS-UPDRS TIME of UPDRS - 36375 MDS-UPDRS TIME OF LAST MEDICATION - 57128 MDS-UPDRS LAST MEDICATION TAKEN - cd/ld 25/100 mg 1.5 tabs MDS (more content not included)...[facility]10-30-2020 NoteHNO ID: [id number] Author: Abby Pate Service: ? Author Type: [...] (FLONASE) 50 mcg/actuation nasal spray Use 1 Rigby in each nostril once daily. Rinse mouth [...] decreased eye-blink frequency, Ma (more content not included)...[facility]06-30-2020 NoteHNO ID: [id number] Author: Abby Pate Service: ? Author Type: [...] who presents for evaluation of tremor. Dr. Farncis is the referring physician. Dr. Oniel Francis [...] with shaking towards end of her life. [place]ian and French background. He endorses some difficulty with manual [...] (FLONASE) 50 mcg/actuation nasal spray Use 1 Rigby in each nostril once daily. Rinse mouth [...] Pt reports he was told by the health advocate that they almost lost him due to [...] Aortic valve replaced 11/14/19 (more content not included)...[facility] History of Past illness Narrative* Problem Noted [...] of this encounter (statuses as of 11/08/2021) [facility] History of Past illness Narrative* Problem [...] of this encounter (statuses as of 12/01/2021) [facility] History of Past illness Narrative* Problem [...] of this encounter (statuses as of 12/15/2021) [facility] History of Past illness Narrative* Problem [...] of this encounter (statuses as of 02/19/2022) [facility] History of Past illness Narrative* Problem [...] of this encounter (statuses as of 04/23/2022) [facility] History of Past illness Narrative* Problem [...] of this encounter (statuses as of 04/23/2022) [facility] History of Past illness Narrative* Problem [...] of this encounter (statuses as of 04/30/2022) [facility] History of Past illness Narrative* Problem [...] of this encounter (statuses as of 05/11/2022) [facility] History of Past illness Narrative* Problem [...] of this encounter (statuses as of 05/23/2022) [facility] History of Past illness Narrative* Problem [...] of this encounter (statuses as of 06/24/2022) [facility] History of Past illness Narrative* Problem [...] of this encounter (statuses as of 06/24/2022) [facility] History of Past illness Narrative* Problem [...] of this encounter (statuses as of 06/26/2022) [facility] History of Past illness Narrative* Problem [...] of this encounter (statuses as of 07/18/2022) [facility] History of Past illness Narrative* Problem [...] of this encounter (statuses as of 10/29/2022) [facility] History of Past illness Narrative* Problem [...] of this encounter (statuses as of 11/08/2022) [facility] History of Past illness Narrative* Problem [...] of this encounter (statuses as of 11/08/2022) [facility] History of Past illness Narrative* Problem [...] of this encounter (statuses as of 12/13/2022) [facility] Evaluation note* Diagnosis Mixed hyperlipidemia [facility] Diagnosis Parkinson disease (HCC)- Primary Paralysis agitans Chronic idiopathic constipation Unspecified constipation 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 [facility] Diagnosis Rash- Primary Rash and other nonspecific skin eruption [facility] Diagnosis Aortic valve replaced- Primary Heart valve replaced by other means [facility] Diagnosis Olecranon bursitis of right elbow- Primary Olecranon bursitis [facility] Diagnosis Coronary 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[place] coronary artery of [place] heart without angina pectoris- Primary Aortic valve replaced Heart valve replaced by other means Essential hypertension Unspecified essential hypertension Mixed hyperlipidemia Carotid stenosis, asymptomatic, bilateral Hyperlipidemia, unspecified hyperlipidemia type [facility] Diagnosis Essential hypertension- Primary Unspecified essential hypertension Mixed hyperlipidemia Elevated blood sugar Other abnormal glucose Coronary 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[place] coronary artery of [place] heart without angina pectoris Carotid stenosis, asymptomatic, bilateral Acquired hypothyroidism Unspecified hypothyroidism Vitamin D deficiency Unspecified vitamin D deficiency Obesity, Class I, BMI 30-34.9 Obesity, unspecified B12 deficiency Other B-complex deficiencies Viral URI with cough Acute upper respiratory infections of unspecified site Medication management Encounter for long-term (current) use of other medications [facility] Diagnosis Parkinson disease (HCC) Paralysis agitans [facility] Diagnosis Coronary 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[place] coronary artery of [place] heart without angina pectoris- Primary Aortic valve replaced Heart valve replaced by other means Essential hypertension Unspecified essential hypertension Mixed hyperlipidemia Carotid stenosis, asymptomatic, bilateral Hyperlipidemia, unspecified hyperlipidemia type [facility] Diagnosis Parkinson disease (HCC) Paralysis agitans [facility] Diagnosis Parkinson disease (HCC)- Primary Paralysis agitans Chronic idiopathic constipation Unspecified constipation 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 [facility] Diagnosis Coronary 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[place] coronary artery of [place] heart without angina pectoris- Primary Aortic valve replaced Heart valve replaced by other means Essential hypertension Unspecified essential hypertension Hyperlipidemia, unspecified hyperlipidemia type Mixed hyperlipidemia Carotid stenosis, asymptomatic, bilateral SAUCEDA (dyspnea on exertion) Other dyspnea and respiratory abnormality [facility] Diagnosis 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 Chronic idiopathic constipation Unspecified constipation Insomnia, unspecified type [facility] Diagnosis Acute cough- Primary Acute cough [facility] Diagnosis Coronary 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[place] coronary artery of [place] heart without angina pectoris- Primary Aortic valve replaced Heart valve replaced by other means Essential hypertension Unspecified essential hypertension Mixed hyperlipidemia Carotid stenosis, asymptomatic, bilateral Screening for ischemic heart disease Pre-operative cardiovascular examination [facility] Diagnosis URI, acute- Primary Acute upper respiratory infections of unspecified site X-ray of lung, abnormal Other nonspecific abnormal finding of lung field Mixed hyperlipidemia Coronary 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[place] coronary artery of [place] heart without angina pectoris Elevated blood sugar Other abnormal glucose Essential hypertension Unspecified essential hypertension Acquired hypothyroidism Unspecified hypothyroidism Vitamin D deficiency Unspecified vitamin D deficiency B12 deficiency Other B-complex deficiencies [facility] Diagnosis Medicare annual wellness visit, subsequent- Primary Routine general medical examination at a health care facility Advance directive discussed with patient Other specified counseling Arthritis of knee Unspecified arthropathy, lower leg Acquired hypothyroidism Unspecified hypothyroidism Elevated blood sugar Other abnormal glucose B12 deficiency Other B-complex deficiencies Mixed hyperlipidemia Essential hypertension Unspecified essential hypertension 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 fluctuating manifestations (HCC) BPH associated with nocturia Hypertrophy of prostate with urinary obstruction and other lower urinary tract symptoms (LUTS) [facility] Diagnosis 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 Chronic idiopathic constipation Unspecified constipation Insomnia, unspecified type [facility]* Diagnosis Nocturia associated with benign prostatic hyperplasia- Primary [facility] Diagnosis Mixed hyperlipidemia- Primary Essential hypertension Unspecified essential hypertension B12 deficiency Other B-complex deficiencies Elevated blood sugar Other abnormal glucose Acquired hypothyroidism Unspecified hypothyroidism Vitamin D deficiency Unspecified vitamin D deficiency documented in this encounter [facility] note* Diagnosis URI, acute Acute upper respiratory infections of unspecified site X-ray of lung, abnormal Other nonspecific abnormal finding of lung field [facility] Diagnosis Acute cough [facility] Diagnosis Bilateral leg pain- Primary Pain in limb Bilateral lower extremity edema Edema Benign localized prostatic hyperplasia with lower urinary tract symptoms (LUTS) Benign localized hyperplasia of prostate with urinary obstruction and other lower urinary tract symptoms (LUTS) [facility]* Diagnosis Essential hypertension- Primary Unspecified essential hypertension Mixed hyperlipidemia [facility]* Diagnosis Benign localized prostatic hyperplasia with lower urinary tract symptoms (LUTS) Benign localized hyperplasia of prostate with urinary obstruction and other lower urinary tract symptoms (LUTS) [facility]* Diagnosis Hyperlipidemia, unspecified hyperlipidemia type [facility]* Diagnosis Hyperlipidemia, unspecified hyperlipidemia type documented in this encounter [facility] note* Diagnosis Benign localized prostatic hyperplasia with lower urinary tract symptoms (LUTS) Benign localized hyperplasia of prostate with urinary obstruction and other lower urinary tract symptoms (LUTS) [facility]* Diagnosis Coronary 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[place] coronary artery of [place] heart without angina pectoris- Primary Aortic valve replaced Heart valve replaced by other means Mixed hyperlipidemia Essential hypertension Unspecified essential hypertension Carotid stenosis, asymptomatic, bilateral Hyperlipidemia, unspecified hyperlipidemia type SAUCEDA (dyspnea on exertion) Other dyspnea and respiratory abnormality [facility]* Diagnosis 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 Insomnia, unspecified type Chronic idiopathic constipation Unspecified constipation 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 [facility] Diagnosis Mixed hyperlipidemia [facility] noteNo assessment information availableSherman [facility]aks [facility] Work Phone: Hospital course Narrative No data available for this section [facility] Hospital Discharge instructions No data available for this section [facility] Progress note No data available for this section [facility] Reason for referral (narrative)* Outpatient Procedure (Routine) - Authorized Specialty Diagnoses / Procedures Referred By Nayely t Referred To [facility] [place] Diagnoses Aortic valve replaced Procedures ECG COMPLETE ECG ROUTINE ECG W/LEAST 12 LDS W/I&R Marj Mackey MD [address] [place] [address] [address] Referral ID Status Reason Start Date Expiration Date Visits Requested Visits Authorized [id number] Authorized Auto-Generat ed Referral 04/23/2022 04/23/2023 1 1 [facility] for referral (narrative)* Outpatient Procedure (Routine) - Authorized Specialty Diagnoses / Procedures Referred By Contac t Referred To [facility] Diagnoses Carotid stenosis, asymptomatic, bilateral Procedures US CAROTID ARTERIES CLAUDY VAS LAB DUPLEX SCAN EXTRACRANIAL ART COMPL BI STUDY Marj Mackey MD [address] [place] [address] [address] Referral ID Status Reason Start Date Expiration Date Visits Requested Visits Authorized [id number] Authorized Auto-Generat ed Referral 04/30/2022 08/04/2022 1 1 [facility] for referral (narrative)* Outpatient Procedure (Routine) - Authorized Specialty Diagnoses / Procedures [facility] Diagnoses Carotid stenosis, asymptomatic, bilateral Procedures US CAROTID ARTERIES CLAUDY VAS LAB DUPLEX SCAN EXTRACRANIAL ART COMPL BI STUDY Marj Mackey MD [facility] [place] [address] [address] Referral ID Status Reason Start Date Expiration Date Visits Requested Visits Authorized [id number] Authorized Auto-Generat ed Referral 3 06/23/2024 1 1 * Outpatient Procedure (Routine) - Authorized Specialty Diagnoses / Procedures [facility] Diagnoses Aortic valve replaced SAUCEDA (dyspnea on exertion) Procedures ECHO ECHO TTHRC R-T 2D W/WOM-MODE COMPL SPEC&COLR D Marj Mackey MD [address] [place] [address] [address] Referral ID Status Reason Start Date Expiration Date Visits Requested Visits Authorized [id number] Authorized Auto-Generat ed Referral 3 06/23/2024 1 1 * Outpatient Procedure (Routine) - Pending Review Specialty Diagnoses / Procedures [facility]erred To [facility] Diagnoses Essential hypertension Hyperlipidemia, unspecified hyperlipidemia type Procedures ECG COMPLETE ECG ROUTINE ECG W/LEAST 12 LDS W/I&R Marj Mackey MD [address] [place] [address] [address] [address] Referral ID Status Reason Start Date Expiration Date Visits Requested Visits Authorized [id number] Pending Review Auto-Generat ed Referral 3 06/17/2024 1 1 [facility] for referral (narrative)* Outpatient Procedure (Routine) - Pending Review Specialty Diagnoses / Procedures [facility]erred To Contact [facility] [place] Diagnoses Screening for ischemic heart disease Procedures ECG COMPLETE ECG ROUTINE ECG W/LEAST 12 LDS W/I&R Marj Mackey MD [address] [place] [address] Fax: [facility] [address] [address] Referral ID Status Reason Start Date Expiration Date Visits Requested Visits Authorized [id number] Pending Review Auto-Generat ed Referral 12/18/2023 12/17/2024 1 1 [facility] for referral (narrative)* Diagnostic Procedure Only (Urgent) - Authorized Specialty Diagnoses / Procedures [facility] Referred To Contact [facility] Diagnoses Bilateral leg pain Bilateral lower extremity edema Procedures US DVT LOWER BILATERAL DUP-SCAN XTR VEINS COMPLETE BILATERAL STUDY Zina Duran APRN.TEMPORARY ADMINISTRATIVE ASSISTANT [facility] [place] [address] [place] [address] Referral ID Status Reason Start Date Expiration Date Visits Requested Visits Authorized [id number] Authorized Auto-Generat ed Referral 05/07/2024 06/06/2025 1 1 T [facility] for referral (narrative)* Outpatient Procedure (Routine) - Authorized Specialty Diagnoses / Procedures [facility] Referred To Contact [facility] [place] Diagnoses Coronary 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[place] coronary artery of [place] heart without angina pectoris Aortic valve replaced Procedures ECHO ECHO TTHRC R-T 2D W/WOM-MODE COMPL SPEC&COLR D Marj Mackey MD [address] [place] [address] Fax: [facility] [place] [address] [place] [address] Referral ID Status Reason Start Date Expiration Date Visits Requested Visits Authorized [id number] Authorized Auto-Generat ed Referral 08/31/2024 08/31/2025 1 1 [facility] for referral (narrative)No reason for referral information availableSherman [facility]aks [facility] Work Phone: Summary Purpose Family History Relationship Condition Age at Onset Recorded Date/T dany mother Cardiac disease Unknown Malignant neoplasm of colon Unknown father Diabetes mellitus Unknown sister Cardiac disease Unknown brother Cardiac disease Unknown Advance Directives Documents on File Type Date Recorded 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 Advance Directive(s) 07/03/2021 9:21 AM Advance Directive(s) 06/16/2021 11:32 AM Advance Directive(s) 10/17/2018 5:01 PM Advance Directive(s) 10/17/2018 5:00 PM Advance Directive(s) 09/24/2018 1:08 PM Advance Directive(s) 08/26/2018 7:31 AM Advance Directive(s) 09/05/2011 12:00 AM Advance Directive(s) 09/20/2006 12:00 AM Documents on File Type Date Recorded 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 DATE CREATED AUTHOR AUTHOR'S ORGANIZ ATION 02/26/2024 [facility] ([place]) DATE CREATED AUTHOR AUTHOR'S ORGANIZ ATION 06/06/2024 [facility] DATE CREATED AUTHOR AUTHOR'S ORGANIZ ATION 12/03/2024 [facility] Source Comments (unrecognize d section and content) In the event this informatio n is protected by the Federal Confidentiality of Alcohol and Drug Abuse Patient Records regulations: The Federal rules restrict any use of the information to criminally investigate or prosecute any alcohol or drug abuse patient.[facility] the event this information is protected by the Federal Confidentiality of Alcohol and Drug Abuse Patient Records regulations: The Federal rules restrict any use of the information to criminally investigate or prosecute any alcohol or drug abuse patient.[facility] the event this information is protected by the Federal Confidentiality of Alcohol and Drug Abuse Patient Records regulations: The Federal rules restrict any use of the information to criminally investigate or prosecute any alcohol or drug abuse patient.[facility] the event this information is protected by the Federal Confidentiality of Alcohol and Drug Abuse Patient Records regulations: The Federal rules restrict any use of the information to criminally investigate or prosecute any alcohol or drug abuse patient.[facility] the event this information is protected by the Federal Confidentiality of Alcohol and Drug Abuse Patient Records regulations: The Federal rules restrict any use of the information to criminally investigate or prosecute any alcohol or drug abuse patient.[facility] the event this information is protected by the Federal Confidentiality of Alcohol and Drug Abuse Patient Records regulations: The Federal rules restrict any use of the information to criminally investigate or prosecute any alcohol or drug abuse patient.[facility] the event this information is protected by the Federal Confidentiality of Alcohol and Drug Abuse Patient Records regulations: The Federal rules restrict any use of the information to criminally investigate or prosecute any alcohol or drug abuse patient.[facility] the event this information is protected by the Federal Confidentiality of Alcohol and Drug Abuse Patient Records regulations: The Federal rules restrict any use of the information to criminally investigate or prosecute any alcohol or drug abuse patient.[facility] the event this information is protected by the Federal Confidentiality of Alcohol and Drug Abuse Patient Records regulations: The Federal rules restrict any use of the information to criminally investigate or prosecute any alcohol or drug abuse patient.[facility] HospitalIn the event this information is protected by the Federal Confidentiality of Alcohol and Drug Abuse Patient Records regulations: The Federal rules restrict any use of the information to criminally investigate or prosecute any alcohol or drug abuse patient.[facility] HospitalIn the event this information is protected by the Federal Confidentiality of Alcohol and Drug Abuse Patient Records regulations: The Federal rules restrict any use of the information to criminally investigate or prosecute any alcohol or drug abuse patient.[facility] HospitalIn the event this information is protected by the Federal Confidentiality of Alcohol and Drug Abuse Patient Records regulations: The Federal rules restrict any use of the information to criminally investigate or prosecute any alcohol or drug abuse patient.[facility] HospitalIn the event this information is protected by the Federal Confidentiality of Alcohol and Drug Abuse Patient Records regulations: The Federal rules restrict any use of the information to criminally investigate or prosecute any alcohol or drug abuse patient.[facility] HospitalIn the event this information is protected by the Federal Confidentiality of Alcohol and Drug Abuse Patient Records regulations: The Federal rules restrict any use of the information to criminally investigate or prosecute any alcohol or drug abuse patient.[facility] HospitalIn the event this information is protected by the Federal Confidentiality of Alcohol and Drug Abuse Patient Records regulations: The Federal rules restrict any use of the information to criminally investigate or prosecute any alcohol or drug abuse patient.[facility] HospitalIn the event this information is protected by the Federal Confidentiality of Alcohol and Drug Abuse Patient Records regulations: The Federal rules restrict any use of the information to criminally investigate or prosecute any alcohol or drug abuse patient.[facility] HospitalIn the event this information is protected by the Federal Confidentiality of Alcohol and Drug Abuse Patient Records regulations: The Federal rules restrict any use of the information to criminally investigate or prosecute any alcohol or drug abuse patient.[facility] HospitalIn the event this information is protected by the Federal Confidentiality of Alcohol and Drug Abuse Patient Records regulations: The Federal rules restrict any use of the information to criminally investigate or prosecute any alcohol or drug abuse patient.[facility] HospitalIn the event this information is protected by the Federal Confidentiality of Alcohol and Drug Abuse Patient Records regulations: The Federal rules restrict any use of the information to criminally investigate or prosecute any alcohol or drug abuse patient.[facility] HospitalIn the event this information is protected by the Federal Confidentiality of Alcohol and Drug Abuse Patient Records regulations: The Federal rules restrict any use of the information to criminally investigate or prosecute any alcohol or drug abuse patient.[facility] the event this information is protected by the Federal Confidentiality of Alcohol and Drug Abuse Patient Records regulations: The Federal rules restrict any use of the information to criminally investigate or prosecute any alcohol or drug abuse patient.[facility] HospitalIn the event this information is protected by the Federal Confidentiality of Alcohol and Drug Abuse Patient Records regulations: The Federal rules restrict any use of the information to criminally investigate or prosecute any alcohol or drug abuse patient.[facility] HospitalIn the event this information is protected by [...] or prosecute any alcohol or drug abuse patient.[facility] HospitalIn the event this information is protected by the Federal Confidentiality of Alcohol and Drug Abuse Patient Records regulations: The Federal rules restrict any use of the information to criminally investigate or prosecute any alcohol or drug abuse patient.[facility] HospitalIn the event this information is protected by the Federal Confidentiality of Alcohol and Drug Abuse Patient Records regulations: The Federal rules restrict any use of the information to criminally investigate or prosecute any alcohol or drug abuse patient.[facility] HospitalIn the event this information is protected by the Federal Confidentiality of Alcohol and Drug Abuse Patient Records regulations: The Federal rules restrict any use of the information to criminally investigate or prosecute any alcohol or drug abuse patient.[facility] HospitalIn the event this information is protected by the Federal Confidentiality of Alcohol and Drug Abuse Patient Records regulations: The Federal rules restrict any use of the information to criminally investigate or prosecute any alcohol or drug abuse patient.[facility] HospitalIn the event this information is protected by the Federal Confidentiality of Alcohol and Drug Abuse Patient Records regulations: The Federal rules restrict any use of the information to criminally investigate or prosecute any alcohol or drug abuse patient.[facility] HospitalIn the event this information is protected by the Federal Confidentiality of Alcohol and Drug Abuse Patient Records regulations: The Federal rules restrict any use of the information to criminally investigate or prosecute any alcohol or drug abuse patient.[facility] HospitalIn the event this information is protected by the Federal Confidentiality of Alcohol and Drug Abuse Patient Records regulations: The Federal rules restrict any use of the information to criminally investigate or prosecute any alcohol or drug abuse patient.[facility] HospitalIn the event this information is protected by the Federal Confidentiality of Alcohol and Drug Abuse Patient Records regulations: The Federal rules restrict any use of the information to criminally investigate or prosecute any alcohol or drug abuse patient.[facility] HospitalIn the event this information is protected by the Federal Confidentiality of Alcohol and Drug Abuse Patient Records regulations: The Federal rules restrict any use of the information to criminally investigate or prosecute any alcohol or drug abuse patient.[facility] HospitalIn the event this information is protected by the Federal Confidentiality of Alcohol and Drug Abuse Patient Records regulations: The Federal rules restrict any use of the information to criminally investigate or prosecute any alcohol or drug abuse patient.[facility] HospitalIn the event this information is protected by the Federal Confidentiality of Alcohol and Drug Abuse Patient Records regulations: The Federal rules restrict any use of the information to criminally investigate or prosecute any alcohol or drug abuse patient.[facility] HospitalIn the event this information is protected by the Federal Confidentiality of Alcohol and Drug Abuse Patient Records regulations: The Federal rules restrict any use of the information to criminally investigate or prosecute any alcohol or drug abuse patient.[facility] HospitalIn the event this information is protected by the Federal Confidentiality of Alcohol and Drug Abuse Patient Records regulations: The Federal rules restrict any use of the information to criminally investigate or prosecute any alcohol or drug abuse patient.[facility] HospitalIn the event this information is protected by the Federal Confidentiality of Alcohol and Drug Abuse Patient Records regulations: The Federal rules restrict any use of the information to criminally investigate or prosecute any alcohol or drug abuse patient.[facility] HospitalIn the event this information is protected by the Federal Confidentiality of Alcohol and Drug Abuse Patient Records regulations: The Federal rules restrict any use of the information to criminally investigate or prosecute any alcohol or drug abuse patient.[facility] HospitalIn the event this information is protected by the Federal Confidentiality of Alcohol and Drug Abuse Patient Records regulations: The Federal rules restrict any use of the information to criminally investigate or prosecute any alcohol or drug abuse patient.[facility] HospitalIn the event this information is protected by the Federal Confidentiality of Alcohol and Drug Abuse Patient Records regulations: The Federal rules restrict any use of the information to criminally investigate or prosecute any alcohol or drug abuse patient.[facility] HospitalIn the event this information is protected by the Federal Confidentiality of Alcohol and Drug Abuse Patient Records regulations: The Federal rules restrict any use of the information to criminally investigate or prosecute any alcohol or drug abuse patient.[facility] HospitalIn the event this information is protected by the Federal Confidentiality of Alcohol and Drug Abuse Patient Records regulations: The Federal rules restrict any use of the information to criminally investigate or prosecute any alcohol or drug abuse patient.[facility] HospitalIn the event this information is protected by the Federal Confidentiality of Alcohol and Drug Abuse Patient Records regulations: The Federal rules restrict any use of the information to criminally investigate or prosecute any alcohol or drug abuse patient.[facility] HospitalIn the event this information is protected by the Federal Confidentiality of Alcohol and Drug Abuse Patient Records regulations: The Federal rules restrict any use of the information to criminally investigate or prosecute any alcohol or drug abuse patient.[facility] HospitalIn the event this information is protected by the Federal Confidentiality of Alcohol and Drug Abuse Patient Records regulations: The Federal rules restrict any use of the information to criminally investigate or prosecute any alcohol or drug abuse patient.[facility] HospitalIn the event this information is protected by the Federal Confidentiality of Alcohol and Drug Abuse Patient Records regulations: The Federal rules restrict any use of the information to criminally investigate or prosecute any alcohol or drug abuse patient.[facility] HospitalIn the event this information is protected by the Federal Confidentiality of Alcohol and Drug Abuse Patient Records regulations: The Federal rules restrict any use of the information to criminally investigate or prosecute any alcohol or drug abuse patient.[facility] HospitalIn the event this information is protected by the Federal Confidentiality of Alcohol and Drug Abuse Patient Records regulations: The Federal rules restrict any use of the information to criminally investigate or prosecute any alcohol or drug abuse patient.[facility] HospitalIn the event this information is protected by the Federal Confidentiality of Alcohol and Drug Abuse Patient Records regulations: The Federal rules restrict any use of the information to criminally investigate or prosecute any alcohol or drug abuse patient.[facility] HospitalIn the event this information is protected by the Federal Confidentiality of Alcohol and Drug Abuse Patient Records regulations: The Federal rules restrict any use of the information to criminally investigate or prosecute any alcohol or drug abuse patient.[facility] Reason for Visit (unrecogniz ed section and [...] Date Comments Population Health Navigation Outreach 11/12/2023 [place] AWV/HCC Reason Comments Cough Congestion and runny nose x6 days Reason Comments Appointment Reason Comments Follow Up Reason Onset Date Comments Population Health Navigation Outreach 02/05/2024 [place] [facility] 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 - AWV, [...] Care Teams (unrecognized sec tion and content) Secondary Art Teacher Relationship Specialty Start Date End Date Oniel Francis MD [address] [place] [address] PCP - General Family Practice 05/16/15 No, Referral Referring 10/17/18 Secondary Art Teacher Relationship Specialty Start Date End Date Oniel Francis MD [address] [facility] [address] PCP - General Family Practice 05/16/15 No, Referral Referring 10/17/18 Secondary Art Teacher Relationship Specialty Start Date End Date Oniel Francis MD [address] [facility] [place] [address] PCP - General Family Practice 05/16/15 No, Referral Referring 10/17/18 Secondary Art Teacher Relationship Specialty Start Date End Date Oniel Francis MD [address] [facility] [address] PCP - General Family Practice 05/16/15 No, Referral Referring 10/17/18 Secondary Art Teacher Relationship Specialty Start Date End Date Oniel Francis MD [address] [facility] [address] PCP - General Family Practice 05/16/15 No, Referral Referring 10/17/18 Secondary Art Teacher Relationship Specialty Start Date End Date Oniel Francis MD [address] [facility] [place] [address] PCP - General Family Medicine 05/16/15 No, Referral Referring 10/17/18 Secondary Art Teacher Relationship Specialty Start Date End Date Oniel Francis MD [address] [facility] [place] [address] PCP - General Family Medicine 05/16/15 No, Referral Referring 10/17/18 Secondary Art Teacher Relationship Specialty Start Date End Date Oniel Francis MD [address] [facility] [address] PCP - General Family Medicine 05/16/15 No, Referral Referring 10/17/18 Secondary Art Teacher Relationship Specialty Start Date End Date Oniel Francis MD [address] [place] [address] PCP - General Family Medicine 05/16/15 No, Referral Referring 10/17/18 Secondary Art Teacher Relationship Specialty Start Date End Date Oniel Francis MD [address] [place] [address] PCP - General Family Medicine 05/16/15 No, Referral Referring 10/17/18 Secondary Art Teacher Relationship Specialty Start Date End Date Oniel Francis MD [address] [place] [address] PCP - General Family Medicine 05/16/15 No, Referral Referring 10/17/18 Secondary Art Teacher Relationship Specialty Start Date End Date Oniel Francis MD [address] [place] [address] PCP - General Family Medicine 05/16/15 No, Referral Referring 10/17/18 Secondary Art Teacher Relationship Specialty Start Date End Date Oniel Francis MD [facility] [place] [address] PCP - General Family Medicine 05/16/15 No, Referral Referring 10/17/18 Secondary Art Teacher Relationship Specialty Start Date End Date Oniel Francis MD [facility] [place] [address] PCP - General Family Medicine 05/16/15 No, Referral Referring 10/17/18 Secondary Art Teacher Relationship Specialty [place] [address] [place] [address] [place] [address] PCP - General Family Medicine 05/16/15 No, Referral Referring 10/17/18 Secondary Art Teacher Relationship Specialty Start Date End Date Oniel Francis MD [address] [place] [address] PCP - General Family Medicine 05/16/15 No, Referral Referring 10/17/18 Secondary Art Teacher Relationship Specialty Start Date End Date Oniel Francis MD [address] [facility] [address] PCP - General Family Medicine 05/16/15 No, Referral Referring 10/17/18 Secondary Art Teacher Relationship Specialty Start Date End Date Oniel Francis MD [address] [facility] [place] [address] PCP - General Family Medicine 05/16/15 No, Referral Referring 10/17/18 Secondary Art Teacher Relationship Specialty Start Date End Date Oniel Francis MD [address] [facility] [address] PCP - General Family Medicine 05/16/15 No, Referral Referring 10/17/18 Secondary Art Teacher Relationship Specialty Start Date End Date Oniel Francis MD [address] [facility] [place] [address] PCP - General Family Medicine 05/16/15 No, Referral Referring 10/17/18 Secondary Art Teacher Relationship Specialty Start Date End Date Oniel Francis MD [address] [facility] [place] [address] PCP - General Family Medicine 05/16/15 No, Referral Referring 10/17/18 Secondary Art Teacher Relationship Specialty Start Date End Date Oniel Francis MD [address] [facility] [place] [address] PCP - General Family Medicine 05/16/15 No, Referral Referring 10/17/18 Secondary Art Teacher Relationship Specialty Start Date End Date Oniel Francis MD [address] [facility] [place] [address] PCP - General Family Medicine 05/16/15 No, Referral Referring 10/17/18 Secondary Art Teacher Relationship Specialty Start Date End Date Oniel Francis MD [address] [facility] [place] [address] PCP - General Family Medicine 05/16/15 No, Referral Referring 10/17/18 Secondary Art Teacher Relationship Specialty Start Date End Date Oniel Francis MD [address] [facility] [place] [address] PCP - General Family Medicine 05/16/15 No, Referral Referring 10/17/18 Secondary Art Teacher Relationship Specialty Start Date End Date Oniel Francis MD [address] [facility] [place] [address] PCP - General Family Medicine 05/16/15 No, Referral Referring 10/17/18 Secondary Art Teacher Relationship Specialty Start Date End Date Oniel Francis MD [address] [facility] [place] [address] PCP - General Family Medicine 05/16/15 No, Referral Referring 10/17/18 Secondary Art Teacher Relationship Specialty Start Date End Date Oniel Francis MD [address] [facility] [place] [address] PCP - General Family Medicine 05/16/15 No, Referral Referring 10/17/18 Secondary Art Teacher Relationship Specialty Start Date End Date Oniel Francis MD [address] [facility] [place] [address] PCP - General Family Medicine 05/16/15 No, Referral Referring 10/17/18 Secondary Art Teacher Relationship Specialty Start Date End Date Oniel Francis MD [address] [facility] [place] [address] PCP - General Family Medicine 05/16/15 No, Referral Referring 10/17/18 Secondary Art Teacher Relationship Specialty Start Date End Date Oniel Francis MD [address] [place] [address] PCP - General Family Medicine 05/16/15 No, Referral Referring 10/17/18 Secondary Art Teacher Relationship Specialty Start Date End Date Oniel Francis MD [address] [place] [address] PCP - General Family Medicine 05/16/15 No, Referral Referring 10/17/18 Secondary Art Teacher Relationship Specialty Start Date End Date Oniel Francis MD [address] [place] [address] PCP - General Family Medicine 05/16/15 No, Referral Referring 10/17/18 Secondary Art Teacher Relationship Specialty Start Date End Date Oniel Francis MD [address] [place] [address] PCP - General Family Medicine 05/16/15 No, Referral Referring 10/17/18 Zina Duran APRN.TEMPORARY ADMINISTRATIVE ASSISTANT [address] [place] [address] Medical Detail Representative Family Medicine 07/11/24 Ella Valdovinos PA-C [address] [facility] [address] Medical Detail Representative Family Medicine 07/11/24 Secondary Art Teacher Relationship Specialty Start Date End Date Oniel Francis MD [address] [place] [address] PCP - General Family Medicine 05/16/15 No, Referral Referring 10/17/18 Zina Duran APRN.TEMPORARY ADMINISTRATIVE ASSISTANT [address] [place] [address] Medical Detail Representative Family Medicine 07/11/24 Ella Valdovinos PA-C [address] [place] [address] Medical Detail Representative Family Medicine 07/11/24 Secondary Art Teacher Relationship Specialty Start Date End Date Oniel Francis MD [address] [place] [address] PCP - General Family Medicine 05/16/15 No, Referral Referring 10/17/18 Zina Duran APRN.TEMPORARY ADMINISTRATIVE ASSISTANT [address] [place] [address] Medical Detail Representative Family Medicine 07/11/24 Ella Valdovinos PA-C [address] [place] [address] Medical Detail Representative Family [facility] 07/11/24 Secondary Art Teacher Relationship Specialty Start Date End Date Oniel Francis MD [address] [place] [address] PCP - General Family Medicine 05/16/15 No, Referral Referring 10/17/18 Zina Duran APRN.TEMPORARY ADMINISTRATIVE ASSISTANT [facility] [place] [address] Medical Detail Representative Family Medicine 07/11/24 Ella Valdovinos PA-C [address] [place] [address] Medical Detail Representative Family [facility] 07/11/24 Secondary Art Teacher Relationship Specialty Start Date End Date Oniel Francis MD [address] [place] [address] PCP - General Family Medicine 05/16/15 No, Referral Referring 10/17/18 Zina Duran APRN.TEMPORARY ADMINISTRATIVE ASSISTANT [address] [place] [address] Medical Detail Representative Family [facility] 07/11/24 Ella Valdovinos PA-C [address] [place] [address] [facility] Secondary Art Teacher Relationship Specialty Start Date End Date Oniel Francis MD [address] [place] [address] PCP - General Family Medicine 05/16/15 No, Referral Referring 10/17/18 Zina Duran APRN.TEMPORARY ADMINISTRATIVE ASSISTANT [address] [place] [address] Medical Detail Representative Family [facility] 07/11/24 Ella Valdovinos PA-C [address] [place] [address] [facility] Secondary Art Teacher Relationship Specialty Start Date End Date Oniel Francis MD [address] [place] [address] PCP - General Family Medicine 05/16/15 No, Referral Referring 10/17/18 Zina Duran APRN.TEMPORARY ADMINISTRATIVE ASSISTANT [address] [place], [place] [id number] [facility] 07/11/24 Ella Valdovinos PA-C [address] [place], [place] [id number] [facility] 07/11/24 Secondary Art Teacher Relationship Specialty Start Date End Date Oniel Francis MD [address] [place] [address] PCP - General Family Medicine 11/09/24 No, Referral Referring 10/17/18 Zina Duran APRN.TEMPORARY ADMINISTRATIVE ASSISTANT [address] [place] [address] [facility] 07/11/24 Ella Valdovinos PA-C [address] [place], [place] [id number] [facility] 07/11/24 Team Status: Active Member Role Status [...] BE BASED ON THE PRIMARY CLINICAL RECORDS. [employer] provides no warranty or guarantee of the accuracy or completeness of information in this document.
--- NOTE | 2025-01-19 06:55 | ED.RN ---
verbal order to discontinue NIH due to patient being a zero for the entire ED duration.
--- NOTE | 2025-01-19 09:20 | MRI_ITS ---
EXAM: BRAIN WITHOUT CONTRAST CLINICAL HISTORY: TIA, slurred speech, bilateral lower extremity weakness COMPARISON: None. TECHNIQUE: Multiplanar, multisequence MR images of the brain were obtained without gadolinium contrast material. FINDINGS: No intracranial hemorrhage, mass, mass effect, midline shift or pathologic extra- axial fluid collection. No hydrocephalus. There is no significant white matter disease.. No areas of restricted diffusion to suggest acute ischemia or infarction. No gradient signal blooming artifacts are identified. No cerebellar tonsillar ectopia. No sellar/suprasellar signal abnormalities. The ocular globes and intraorbital soft tissues are symmetrically unremarkable. Sinus disease is visible in the floor of the right maxillary sinus. There is fluid signal in a portion of the right mastoid air cells, with mastoiditis. MRI/Brain without Contrast IMPRESSION: Sinus disease is visible in the floor of the right maxillary sinus. There is fluid signal in a portion of the right mastoid air cells, with mastoid itis. No acute intracranial abnormality is identified. Reading Location: [facility]
[2025-01-19] MEDS: Aspirin 81 MG TAB.CHEW PO (10:37)
[2025-01-19] MEDS: Propranolol LA 80 MG Capsule PO (10:37)
[2025-01-19] MEDS: Carbidopa/Levodopa 25/100 Tablet PO ×2 (10:37→16:41)
[2025-01-19] MEDS: Enoxaparin 40 MG/0.4 ML Syringe SC (10:38)
--- NOTE | 2025-01-19 13:24 | CON.PCM.NE_ITS ---
Assessment and Plan: Stroke Assessment/Plan Mr Cooley presents with acute onset dysarthria and bilateral lower extremity weakness concerning for a Transient Ischemic Attack (TIA). While he did miss a dose of sinemet that evening, he has never had such pronounced dysarthria with previous missed doses so less likely symptoms d/t PD. Obtain lipid panel and hemoglobin A1c. Recommend TTE and 30 day fashion artist after discharge. PT/OT eval. Load with clopidogrel 300mg now. Use aspirin 81mg and clopidogrel 75mg daily x 21 days then stop clopidogrel. Continue aspirin indefinitely. Continue home atorvastatin 80mg daily. OK to discharge after TTE from neurological standpoint. Follow up with neurology as an outpatient. Warned about signs and symptoms of a stroke. HPI Consult Data Date of Consult: 01/19/25 HPI Narrative HPI Narrative: SEBASTIÁN COOLEY, is a 84 M w/ Parkinson Disease, L carotid stenosis s/p CEA, CAD s/p CABG (2019). 01/19/25 awoke in the night w/ acute BLE weakness and dysarthria x 40 min then resolved. NIHSS 0. Did miss a dose of Sinemet but never has had dysarthria like that before with prior missed doses. MRI/CTA neg. [facility] Medical History (Updated 01/19/25 @ 08:[address] Tate Mcdonough, ) Parkinson disease Family history of malignant neoplasm of colon in mother Personal history of colonic polyps Essential tremor Aortic prosthetic valve regurgitation Deep vein thrombophlebitis of right leg Obesity Left carotid artery stenosis Prosthetic aortic valve stenosis Central sleep apnea Nonrheumatic aortic (valve) insufficiency Bicuspid aortic valve Vitamin D deficiency History of rheumatic fever Hyperlipidemia History of carotid artery disease Atherosclerosis of coronary artery of [place] heart without angina pectoris Essential hypertension Contusion of finger without damage to nail Laceration of finger of left hand without foreign body without damage to nail Hemorrhoids Shortness of breath Neck pain on left side Tingling and numbness left fingers Home Medications ?Medication ?Instructions ?Recorded ?Last Taken ?Type slqybaig-exa-cvooq acid 0.4 1 ea PO DAILY 05/28/16 History mg-lycopene 300 mcg-lutein 250 mcg tablet acetaminophen 500 mg tablet 1,000 mg PO TID PRN fever or pain 05/29/19 Unknown History cyanocobalamin (vitamin B-12) 500 1,000 mcg PO DAILY 1 Unknown History mcg sublingual tablet aspirin 81 mg chewable tablet 81 mg PO DAILY 12/22/19 Unknown History carbidopa 25 mg-levodopa 100 mg 2 tab PO TID 02/03/21 Unknown History tablet cholecalciferol (vitamin D3) 25 2,000 unit PO BID 09/25 Unknown History mcg (1,000 unit) tablet fluticasone propionate 50 1 spray intranasal DAILY PRN nasal 02/03/21 Unknown History mcg/actuation nasal congestion spray,suspension (Allergy Relief (fluticasone)) levothyroxine 25 mcg tablet 25 mcg PO DAILY 02/03/21 U nknown History metoprolol tartrate 50 mg tablet See Rx Instructions . Route 12/17/22 Unknown Rx .COMPLEX #180 tabs nitroglycerin 0.4 mg sublingual See Rx Instructions .R oute 02/25/23 Unknown Rx tablet .COMPLEX #25 tabs atorvastatin 80 mg tablet 80 mg PO QHS 01/19/25 Unknow n History propranolol 80 mg capsule,24 80 mg PO Q24H 01/19/25 Un known History hr,extended release tamsulosin 0.4 mg capsule 0.8 mg PO QHS 01/19/25 Unkno wn History trazodone 50 mg tablet 50 mg PO QHS 01/19/25 Unknow n History Allergy/AdvReac Type Severity Reaction Status Date / Time iodine Allergy Other Verified 01/19/25 03:56 Penicillins Allergy Hives Verified 01/19/25 03:56 Family History Mother Heart disease Colon cancer Father Diabetes Sister Heart disease Brother Heart disease Surgical History (Updated 01/19/25 @ 04:14 by Alexsandra Salas) History of single vessel coronary artery bypass History of cataract extraction History of colonoscopy (~2014) History of left heart catheterization (08/26/18) H/O coronary artery bypass surgery (10/2018) H/O aortic valve replacement (10/2018) History of left-sided carotid endarterectomy (2008) History of hernia repair History of cholecystectomy History of tonsillectomy Social History Smoking Status: Never smoker alcohol intake: current alcohol intake frequency: a few times a month Alcohol type: beer and wine substance use type: does not use caffeine: No Vital Signs Vital Signs Vital Signs: 01/19/25 03:53 01/19/25 03:57 01/19/25 04:00 Temperature 98.0 F Temperature Source Oral Pulse Rate 69 67 69 Respiratory Rate 18 18 18 Blood Pressure 152/73 H 152/73 H 137/70 H Blood Pressure Mean 99 99 92 Blood Pressure Source Blood Pressure Position Blood Pressure Location Pulse Ox 93 93 92 Oxygen Delivery Method Room Air Room Air Oxygen Flow Rate (L/min) 01/19/25 04:10 01/19/25 04:30 01/19/25 05:00 Temperature Temperature Source Pulse Rate 68 66 Respiratory Rate 18 18 Blood Pressure 154/84 H 135/83 H Blood Pressure Mean 107 100 Blood Pressure Source Blood Pressure Position Blood Pressure Location Pulse Ox 93 92 92 Oxygen Delivery Method Room Air Room Air Room Air Oxygen Flow Rate (L/min) 01/19/25 05:30 01/19/25 06:00 01/19/25 06:22 Temperature 98.2 F Temperature Source Pulse Rate 65 63 64 Respiratory Rate 18 18 18 Blood Pressure 157/92 H 141/75 H 139/59 H Blood Pressure Mean 113 97 85 Blood Pressure Source Blood Pressure Position Blood Pressure Location Pulse Ox 93 92 93 Oxygen Delivery Method Room Air Room Air Oxygen Flow Rate (L/min) 01/19/25 06:30 01/19/25 06:45 01/19/25 08:07 Temperature 97.7 F L Temperature Source Oral Pulse Rate 60 65 Respiratory Rate 18 18 Blood Pressure 127/98 H 116/78 Blood Pressure Mean 107 90 Blood Pressure Source Monitor Blood Pressure Position Semi-Fowlers Blood Pressure Location Left Arm Pulse Ox 86 94 95 Oxygen Delivery Method Room Air Nasal Cannula Nasal Cannula Oxygen Flow Rate (L/min) 1 2 01/19/25 10:00 01/19/25 10:45 01/19/25 12:51 Temperature 97.4 F L Temperature Source Oral Pulse Rate 59 L Respiratory Rate 17 Blood Pressure 131/78 H Blood Pressure Mean 95 Blood Pressure Source Monitor Blood Pressure Position Semi-Fowlers Blood Pressure Location Left Arm Pulse Ox 96 94 Oxygen Delivery Method Nasal Cannula Nasal Cannula Oxygen Flow Rate (L/min) 3 3 3 Weight Weight: 92.8 kg Body Mass Index (BMI) 32.0 EEG Results Procedure Details EEG Procedure Details: SEBASTIÁN COOLEY is a 84 year old M with a past medical history of , who presents for evaluation of Electroencephalogram on DATE at TIME Physical Exam Narrative No focal neurological deficits. NIHSS 0. mRS 0. Lab / Micro Data 01/19/25 04:00 01/19/25 04:00 Labs: Laboratory Results - last 24 hr 01/19/25 04:00: WBC 6.3, RBC 4.31 L, Hgb 14.2, Hct 40.8, MCV 94.7 H, MCH 32.9 H, MCHC 34.8, RDW Std Deviation 46.3 H, RDW Coeff of Adrian 13.2, Plt Count 135 L, MPV 10.4, Immature Gran % (Auto) 0.200, Neut % (Auto) 36.7 L, Lymph % (Auto) 48.3 H, [place] % (Auto) 10.0, Eos % (Auto) 4.3, Baso % (Auto) 0.5, Absolute Neuts (auto) 2.3, Absolute Lymphs (auto) 3.03, Nucleated RBC % 0, PT 13.4, INR 1.0, APTT 28.5, Sodium 140, Potassium 4.1, Chloride 105, Carbon Dioxide 23.1, Anion Gap 12, BUN 25 H, Creatinine 0.91, Estim Creat Clear Calc 68.19, Est GFR (MDRD) Non- Af 84, BUN/Creatinine Ratio 27.0 H, Glucose 145 H, Calcium 9.7 01/19/25 04:40: Urine Color Yellow, Urine Clarity Clear, Urine pH 6.0, Ur Specific [place] 1.015, Urine Protein Negative, Urine Glucose (UA) Normal, Urine Ketones Negative, Urine Occult Blood Negative, Urine Nitrite Negative, Urine Bilirubin Negative, Urine Urobilinogen Normal, Ur Leukocyte Esterase Negative, Urine RBC 0 SEEN, Urine WBC 0 SEEN, Ur Squamous Epith Cells 0 SEEN, Urine Bacteria 0 SEEN, Urine Mucus 0 SEEN Imaging Radiology Impression Brain CT 01/19/25 04:00 IMPRESSION: No CT evidence for acute brain abnormality. [facility] Head/Neck CTA 01/19/25 04:03 IMPRESSION: Atherosclerosis without high-grade stenosis. Reading Location: [id number] Chest X-Ray 01/19/25 04:45 IMPRESSION: Mild bilateral basilar atelectatic pulmonary changes. [facility] Brain MRI 01/19/25 09:20 IMPRESSION: Sinus disease is visible in the floor of the right maxillary sinus. There is fluid signal in a portion of the right mastoid air cells, with mastoiditis. No acute intracranial abnormality is identified. Reading [facility] Active Medications Active Medications Active Medications: Current Medications Generic Name Dose Route Start Last Admin Trade Name Freq PRN Reason Stop Dose Admin Acetaminophen 1,000 mg 01/19/25 07:29 Acetaminophen 500 Mg Tablet PO TID PRN fever or pain Aspirin 81 mg 01/19/25 08:00 01/19/25 10:37 Aspirin 81 Mg Tab.Chew PO 81 mg BREAKFAST PEPITO Administration Atorvastatin Calcium 80 mg 01/19/25 22:00 Atorvastatin Calcium 80 Mg Tablet PO QHS PEPITO Carbidopa/Levodopa 2 tablet 01/19/25 11:00 01/19/25 10:37 Carbidopa/Levodopa 25/100 Tablet PO 2 tablet TIDAC PEPITO Administration Enoxaparin Sodium 40 mg 01/19/25 10:00 01/19/25 10:38 Enoxaparin 40 Mg/0.4 Ml Syringe SC 40 mg DAILY PEPITO Administration Sodium Chloride 250 mls @ 15 mls/hr 01/19/25 07:44 IV .[id number] PRN Saline Flush Sodium Chloride 250 mls @ 15 mls/hr 01/19/25 07:44 IV .[id number] PRN Additional IVPB Infusion Levothyroxine Sodium 25 mcg 01/20/25 06:00 Levothyroxine 25 Mcg Tablet PO DAILY@0600 PEPITO Propranolol HCl 80 mg 01/19/25 10:00 01/19/25 10:37 Propranolol La 80 Mg Capsule PO 80 mg Q24 PEPITO Administration Protocol Sodium Chloride 10 - 40 ml 01/19/25 07:44 0.9% Saline Lock 10 Ml Syringe IV UD PRN SALINE FLUSH Tamsulosin HCl 0.8 mg 01/19/25 22:00 Tamsulosin Hcl 0.4 Mg Capsule PO QHS [facility] NIHSS NIHSS Nursing Documentation NIHSS Nursing Documentation: NIHSS: Ischemic Stroke/TIA Start: 01/19/25 07:29 Text: For PCU Patients: NIH and Neuro Check every 4 Status: Active hours, PRN and with change in RN caregiver. Freq: [id number] Protocol: Activity Type Activity Date Activity User E-sign Co-sign Detail Recorded Client Recorded Date Recorded By Document 01/19/25 10:00 EM desktop 01/19/25 10:27 EM 01/19/25 10:00 NIH Stroke Scale [NIHSS] A score of 0 is normal or asymptomatic . Total possible score is 42. Inpatient: RN or Physician to activate a stroke alert for onset of new stroke symptoms or with NIHSS increase >/= 3 points. Following change in neurological status, NIHSS will be performed per physician order or more frequently PRN. -1a. Level of Consciousness 0 - Alert; keenly responsive -1b. LOC Questions 0 - Answers BOTH questions correctly -1c. LOC Commands 0 - Performs BOTH tasks correctly -2. Best Gaze 0 - Normal -3. Visual 0 - No visual loss -4. Facial Palsy 0 - Normal symmetrical movements -5a. Left Arm 0 - No drift; arm holds 90 ( or 45) degrees for full 10 seconds -5b. Right Arm 0 - No drift; arm holds 90 ( or 45) degrees for full 10 seconds -6a. Left Leg 0 - No drift; leg holds 30- degree position for full 5 seconds -6b. Right Leg 0 - No drift; leg holds 30- degree position for full 5 seconds -7. Limb Ataxia 0 - Absent -8. Sensory 0 - Normal; no sensory loss -9. Best Language 0 - No aphasia; normal -10. Dysarthria 0 - Normal -11. Extinction and Inattention 0 - No abnormality -Total 0 Query Text:A score of 0 is normal or asymptomatic. Total possible score is 42 . ED: Notify Physician for NIHSS increase by > / = 3 points. Inpatient: RN or Physician to activate a stroke alert for NIHSS increase of > / = 3 points. Coma Scale [Assess] -Eye Opening Spontaneous -Motor Obeys Commands -Verbal Oriented [Total] -Coma Scale Total 15
--- NOTE | 2025-01-19 13:33 | ECHOCS_ITS ---
Reason For Study Reason For Study: TIA/CVA Procedure This was a 2D Doppler, Color Flow transthoracic echocardiogram. Contrast injection was performed. Exam performed portable in patient room. Left Ventricle Normal LV size. The left ventricular ejection fraction is 55 %. Stage 1 diastolic dysfunction. No regional wall motion abnormalities noted. Right Ventricle Normal RV size. Normal systolic function. Atria Normal left atrium. Normal right atrium. Mitral Valve Mild mitral valve prolapse. Mild (1+) eccentric mitral valve insufficiency. Tricuspid Valve Normal tricuspid valve. Mild tricuspid valve insufficiency. Pulmonary artery systolic pressure is 23 mmHg. Aortic Valve Mean aortic valve gradient 5 mmHg. Bioprosthetic aortic valve. Pulmonic Valve Normal pulmonic valve. Great Vessels Mildly dilated aortic root. The pulmonary artery is normal size. Inferior vena cava collapse with respiration. Pericardium/Pleural No pericardial effusion. Medication Diluted definity 3ml given slow IV push to enhance endocardial definition. MMode/2D Measurements & Calculations LVIDd: 4.8 cm IVSd: 0.97 cm LVOT diam: 2.1 cm LVIDs: 3.0 cm LVPWd: 1.2 cm RVDd: 4.7 cm FS: 36.8 % LVOT area: 3.5 cm2 asc Aorta Diam: 3.9 cm LAV(MOD-bp): 48.5 ml LVAd ap4: 35.7 cm2 LAV(MOD-bp) Indexed: 23.8 ml/m2 LVLd ap4: 8.0 cm LAV(MOD-sp2): 52.0 ml EDV(MOD-sp4): 124.9 ml LAV(MOD-sp4): 44.9 ml EDV(sp4-el): 135.3 ml LVAs ap4: 22.2 cm2 LVLs ap4: 6.9 cm ESV(MOD-sp4): 58.8 ml ESV(sp4-el): 60.1 ml EF(MOD-sp4): 52.9 % EF(sp4-el): 55.6 % LVAd ap2: 36.5 cm2 SV(MOD-sp4): 66.1 ml SV(MOD-sp2): 62.1 ml LVLd ap2: 8.3 cm SI(MOD-sp4): 32.4 ml/m2 SI(MOD-sp2): 30.4 ml/m2 EDV(MOD-sp2): 130.2 ml EDV(sp2-el): 135.4 ml LVAs ap2: 25.0 cm2 LVLs ap2: 7.5 cm ESV(MOD-sp2): 68.2 ml ESV(sp2-el): 70.3 ml EF(MOD-sp2): 47.7 % SV(sp4-el): 75.2 ml Ao sinus diam: 3.[address] Junction: 2.9 cm LA dimension(2D): 4.6 cm LA A4 area: 17.9 cm2 RA A4 area: 16.0 cm2 TAPSE: 1.4 cm Time Measurements MV dec time: 0.32 sec Doppler Measurements & Calculations MV E max nathaniel: 54.9 cm/sec Lat Peak E' Nathaniel: 11.1 cm/sec Med Peak E' Nathaniel: 5.6 cm/sec MV A max nathaniel: 81.9 cm/sec E/E' lat: 5.0 E/E' med: 9.7 MV E/A: 0.67 MV dec slope: 173.9 cm/sec2 Ao V2 max: 148.3 cm/sec LV V1 max: 91.3 cm/sec Ao max P.8 mmHg LV V1 max P.3 mmHg Ao V2 mean: 103.3 cm/sec LV V1 mean P.3 mmHg Ao mean P.8 mmHg LV V1 mean: 74.9 cm/sec Ao V2 VTI: 30.2 cm LV V1 VTI: 18.8 cm AV (velocity ratio): 0.62 VIANEY(I,D): 2.2 cm2 VIANEY(V,D): 2.2 cm2 SV(LVOT): 65.9 ml PA V2 max: 132.7 cm/sec PI end-d nathaniel: 78.6 cm/sec TR max nathaniel: 224.4 cm/sec TR max P.1 mmHg ECHO/Echo Complete W/ Contrast Interpretation Summary The left ventricular ejection fraction is 55 %. Normal LV size. Stage 1 diastolic dysfunction. Pulmonary artery systolic pressure is 23 mmHg. Bioprosthetic aortic valve. Contrast injection was performed. Ordering Physician: Freeman Lu Performed By: Suzan Leonard RDCS
--- NOTE | 2025-01-19 14:02 | CASEMGMT ---
SW did not complete a PHQ9 as patient did not have a Stroke. Consuelo CRUZ
[2025-01-19] MEDS: Clopidogrel Bisulfate 300 MG Tablet PO (16:44)
--- NOTE | 2025-01-19 17:39 | CASEMGMT ---
NORA PIERRE NOTE: RN CM to room. Pt resting in bed, @ bedside. Pt lives w/, independent. He and deny having any discharge needs or concerns. Giorgio NAILSN NORA PIERRE
--- NOTE | 2025-01-19 18:05 | PCM.DC ---
Discharge Instructions Diet Discharge Diet: No restrictions DC O2, CPAP, BIPAP needs Home O2 Discharge instructions: No Dressing / Incision Discharge Activity: Return to Normal Activity Weight Bearing Status: Full weight bearing Follow Up Care Test Results: Test results from this visit will be discussed in further detail at your follow-up appointment, if applicable. Discharge Plan Admission Admit Date/Time: 01/19/25 06:07 Primary Reason for Your Visit: Transient ischemic attack Attending Provider: Freeman Lu Primary Care Provider: Oniel Posada Consulting Providers: Mik Kilgore; Graham Gutierrez; Brooklyn Peñaloza; Bianca Jerry; Kavita Glass; Odessa Wray; Matthew Rushing; Yarely Ackerman; Harinder Hill; Jorge Bui; Nando Rosales; Xenia Fournier; Sulaiman Carrasquillo; Aleksandra Gonzales; Zoila Maciel; Audi Phillip; Adebayo Valdovinos; Dali Sanchez; Ángel King; Dary Villalta; Tia Mcleod Instructions Additional Instructions / Restrictions: Follow-up as scheduled with your neurologist Discharge Orders/Prescriptions Prescriptions: New clopidogrel [Plavix] 75 mg tablet 75 mg PO DAILY Qty: 21 0RF Rx Instructions: Start on 01/20/2025, take for 21 days then discontinue Continued acetaminophen 500 mg tablet 1,000 mg PO TID PRN (Reason: fever or pain) fluticasone propionate [Allergy Relief (fluticasone)] 50 mcg/actuation spray,suspension 1 spray INTRANASAL DAILY PRN (Reason: nasal congestion) carbidopa-levodopa 25-100 mg tablet 2 tab PO TID levothyroxine 25 mcg tablet 25 mcg PO DAILY pezhcpmp-euu-CT-lycopen-lutein 1 EACH tablet 1 ea PO DAILY Patient Comments: supplement cyanocobalamin (vitamin B-12) 500 mcg tablet, sublingual 1,000 mcg PO DAILY Patient Comments: supplement aspirin 81 mg tablet,chewable 81 mg PO DAILY Patient Comments: heart health cholecalciferol (vitamin D3) 25 mcg (1,000 unit) tablet 2,000 unit PO BID Patient Comments: supplement atorvastatin 80 mg tablet 80 mg PO QHS propranolol 80 mg capsule,extended release 24 hr 80 mg PO Q24H trazodone 50 mg tablet 50 mg PO QHS tamsulosin 0.4 mg capsule 0.8 mg PO QHS metoprolol tartrate 50 mg tablet See Rx Instructions .ROUTE .COMPLEX Qty: 180 3RF Dose Instruction: TAKE 1 TABLET TWICE A DAY Rx Instructions: TAKE 1 TABLET TWICE A DAY nitroglycerin 0.4 mg tablet, sublingual See Rx Instructions .ROUTE .COMPLEX Qty: 25 6RF Dose Instruction: PLACE 1 TABLET UNDER THE TONGUE AND ALLOW TO DISSOLVE EVERY 5 TO 15 MINUTES FOR CHEST PAIN. DO NOT EXCEED 3 DOSES Rx Instructions: PLACE 1 TABLET UNDER THE TONGUE AND ALLOW TO DISSOLVE EVERY 5 TO 15 MINUTES FOR CHEST PAIN. DO NOT EXCEED 3 DOSES Other Ambulatory Orders: 30 Day Event Recorder Preventi (Urgent) Timeframe: 1 Day Facility: [facility] - Location: Cardiovascular Services Ordered By: Dr. Freeman Lu Referrals / Follow Up: Oniel Posada MD [Primary Care Provider] - See Referral Note (At next appointment time) Disposition Disposition (needs filled in before D/C Order can be placed): Home, Self Care
--- NOTE | 2025-01-19 18:12 | DS.PCM_ITS ---
Providers Date of Admission: 01/19/25 Date of Discharge: 01/19/25 Primary Care Physician: Dr. Oniel Posada MD Consultations 01/19/25 12:11 Neurology [Consult: Tele-Neurology] Routine Consulting Provider: [facility] Reason for Consult: ? TIA EMERGENT Consult: No MD Notified: Yes Date Notified: 01/19/25 Time Notified: 12:11 Method of Notification: Answering Service Nursing Unit Staff Notify [facility] of Tele-Neurology Consult: Yes Reason For Visit: TRANSIENT ISCHEMIC ATTACK Diagnosis Discharge Diagnosis (1) H/O coronary artery bypass surgery: Status: Resolved Code(s): Z95.1 - Presence of aortocoronary bypass graft (2) H/O aortic valve replacement: Status: Chronic Code(s): Z95.2 - Presence of prosthetic heart valve (3) Essential hypertension: Status: Chronic Code(s): I10 - Essential (primary) hypertension (4) Hyperlipidemia: Status: Chronic Code(s): E78.5 - Hyperlipidemia, unspecified (5) Stroke-like symptoms: Status: Acute Code(s): R29.90 - Unspecified symptoms and signs involving the nervous system Plan 1. Transient ischemic attack #2 Parkinson's disease #3 coronary artery disease #4 aortic valvular disease #5 hyperlipidemia Medications at Discharge Home Medications zcpnsblp-vzr-vxtem acid 0.4 mg-lycopene 300 mcg-lutein 250 mcg tablet 1 ea PO DAILY 05/28/16 acetaminophen 500 mg tablet 1,000 mg PO TID PRN fever or pain 05/29/19 cyanocobalamin (vitamin B-12) 500 mcg sublingual tablet 1,000 mcg PO DAILY 05/29/19 aspirin 81 mg chewable tablet 81 mg PO DAILY 12/22/19 carbidopa 25 mg-levodopa 100 mg tablet 2 tab PO TID 02/03/21 cholecalciferol (vitamin D3) 25 mcg (1,000 unit) tablet 2,000 unit PO BID 02/03/21 fluticasone propionate 50 mcg/actuation nasal spray,suspension (Allergy Relief (fluticasone)) 1 spray intranasal DAILY PRN nasal congestion 02/03/21 levothyroxine 25 mcg tablet 25 mcg PO DAILY 02/03/21 metoprolol tartrate 50 mg tablet See Rx Instructions .Route .COMPLEX #180 tabs 12/17/22 nitroglycerin 0.4 mg sublingual tablet See Rx Instructions .Route .COMPLEX #25 tabs 02/25/23 atorvastatin 80 mg tablet 80 mg PO QHS 01/19/25 clopidogrel 75 mg tablet (Plavix) 75 mg PO DAILY #21 tabs 01/19/25 propranolol 80 mg capsule,24 hr,extended release 80 mg PO Q24H 01/19/25 tamsulosin 0.4 mg capsule 0.8 mg PO QHS 01/19/25 trazodone 50 mg tablet 50 mg PO QHS 01/19/25 Hospital Course Operations None Procedures 2-D Echocardiogram Summary of Care Provided Minutes Spent on Discharge: 31 Hospital Course: This 84-year-old white male was seen in the emergency room at [facility] after being brought in by his due to slurred speech and generalized weakness when the patient awoke the morning of 01/19/2025. Patient had gone to bed approximately 11 PM the night before and was well at that time. A stroke team was not called due to the timeframe, the case was discussed with [facility] neurologist however and it was confirmed he was outside the window for TNK and he had spontaneous resolution of his symptoms by the time he had reached the emergency room. Patient had a CT of the brain and CTA of the head and neck which did not reveal any large vessel occlusion or stroke or bleed. Patient's NIH was 0, labs were unremarkable. Patient was placed in observation status on PCU, he was seen in consultation by neurology who recommended a 30-day Holter monitor, the use of aspirin and Plavix for 21 days then drop in the Plavix off, and recommended a statin and the patient follow-up with neurology. Patient had established care with a neurologist due to his Parkinson's disease and had an upcoming appointment in the next few weeks. Patient had echocardiogram performed which was unremarkable, patient was seen by PT and OT as well as speech therapy and required no follow-up to the fact he was asymptomatic On 01/19/2025, patient was seen and examined: On examination he appeared in good health and spirits. Vital signs as documented. Skin warm and dry and without overt rashes. Neck without JVD, neck was supple, trachea midline, thyroid was normal. Lungs clear bilaterally, normal air movement was noted. Heart exam notable for regular rhythm, normal sounds and absence of murmurs, rubs or gallops. Abdomen unremarkable and without evidence of organomegaly, masses, or abdominal aortic enlargement. Bowel sounds are present, abdomen is not distended. Extremities nonedematous, no cyanosis was noted, no clubbing was noted. Neuro: Cranial nerves II through XII are grossly intact, no focal motor deficits were noted, sensation to light touch and pinprick intact, motor exam 5/5 throughout. Psych: Patient is alert and oriented x3, he does not appear anxious or depressed, he does not appear agitated. Patient was discharged home in stable condition on 01/19/2025 Weight / BMI Weight Weight: 92.8 kg Body Mass Index (BMI) 32.0 ABG / Lab / Microbiology Data 01/19/25 04:00 01/19/25 04:00 Laboratory: Laboratory Results - last 24 hr 01/19/25 04:00: WBC 6.3, RBC 4.31 L, Hgb 14.2, Hct 40.8, MCV 94.7 H, MCH 32.9 H, MCHC 34.8, RDW Std Deviation 46.3 H, RDW Coeff of Adrian 13.2, Plt Count 135 L, MPV 10.4, Immature Gran % (Auto) 0.200, Neut % (Auto) 36.7 L, Lymph % (Auto) 48.3 H, [place] % (Auto) 10.0, Eos % (Auto) 4.3, Baso % (Auto) 0.5, Absolute Neuts (auto) 2.3, Absolute Lymphs (auto) 3.03, Nucleated RBC % 0, PT 13.4, INR 1.0, APTT 28.5, Sodium 140, Potassium 4.1, Chloride 105, Carbon Dioxide 23.1, Anion Gap 12, BUN 25 H, Creatinine 0.91, Estim Creat Clear Calc 68.19, Est GFR (MDRD) Non- Af 84, BUN/Creatinine Ratio 27.0 H, Glucose 145 H, Calcium 9.7 01/19/25 04:40: Urine Color Yellow, Urine Clarity Clear, Urine pH 6.0, Ur Specific [place] 1.015, Urine Protein Negative, Urine Glucose (UA) Normal, Urine Ketones Negative, Urine Occult Blood Negative, Urine Nitrite Negative, Urine Bilirubin Negative, Urine Urobilinogen Normal, Ur Leukocyte Esterase Negative, Urine RBC 0 SEEN, Urine WBC 0 SEEN, Ur Squamous Epith Cells 0 SEEN, Urine Bacteria 0 SEEN, Urine Mucus 0 SEEN Radiography Diagnostic Testing: Radiology Impression Brain CT 01/19/25 04:00 IMPRESSION: No CT evidence for acute brain abnormality. Reading Location: [place] [id number] Head/Neck CTA 01/19/25 04:03 IMPRESSION: Atherosclerosis without high-grade stenosis. [facility] Chest X-Ray 01/19/25 04:45 IMPRESSION: Mild bilateral basilar atelectatic pulmonary changes. [facility] Brain MRI 01/19/25 09:20 IMPRESSION: Sinus disease is visible in the floor of the right maxillary sinus. There is fluid signal in a portion of the right mastoid air cells, with mastoiditis. No acute intracranial abnormality is identified. [facility] Echocardiogram 01/19/25 13:33 Interpretation Summary The left ventricular ejection fraction is 55 %. Normal LV size. Stage 1 diastolic dysfunction. Pulmonary artery systolic pressure is 23 mmHg. Bioprosthetic aortic valve. Contrast injection was performed. Ordering Physician: Freeman Lu Performed By: Suzan Leonard RDCS D/C Instructions Discharge Diet: No restrictions Weight Bearing Status: Full weight bearing DC O2, CPAP, BIPAP Needs Home O2 Discharge instructions: No Meaningful Use Info Meaningful Use Meaningful Use Diagnoses (Choose all that apply): None applicable Ischemic Stroke Statin Dosing Therapy Reference: STATIN DOSE THERAPY REFERENCE: * Patients > 75 years receive moderate or high dose statin therapy. * Patients 75 years or YOUNGER should receive HIGH intensity statin dose unless contraindicated. You will be required to document reason for non-treatment if statin daily dose does not meet guidelines. HIGH DOSE STATIN THERAPY DAILY Atorvastatin > than or = to 40 mg Rosuvastatin > than or = to 20 mg Amlodipine + Atorvastatin > than or = to 2.5/40 mg Ezetimibe + Simvastatin 10/80 mg Simvastatin 80mg Discharge Plan Admission Admit Date/Time: 01/19/25 06:07 Primary Reason for Your Visit: Transient ischemic attack Attending Provider: Freeman Lu Primary Care Provider: Oniel Posada Consulting Providers: Mik Kilgore; Graham Gutierrez; Brooklyn Peñaloza; Bianca Jerry; Kavita Glass; Odessa Wray; Matthew Rushing; Yarely Ackerman; Harinder Hill; Jorge Bui; Nando Rosales; Xenia Fournier; Sulaiman Carrasquillo; Aleksandra Gonzales; Zoila Maciel; Audi Phillip; Adebayo Valdovinos; Dali Sanchez; Ángel King; Dary Villalta; Tia Mcleod Instructions Additional Instructions / Restrictions: Follow-up as scheduled with your neurologist Discharge Orders/Prescriptions Prescriptions: New clopidogrel [Plavix] 75 mg tablet 75 mg PO DAILY Qty: 21 0RF Rx Instructions: Start on 01/20/2025, take for 21 days then discontinue Continued acetaminophen 500 mg tablet 1,000 mg PO TID PRN (Reason: fever or pain) fluticasone propionate [Allergy Relief (fluticasone)] 50 mcg/actuation spray,suspension 1 spray INTRANASAL DAILY PRN (Reason: nasal congestion) carbidopa-levodopa 25-100 mg tablet 2 tab PO TID levothyroxine 25 mcg tablet 25 mcg PO DAILY mlqpobrh-nbz-PL-lycopen-lutein 1 EACH tablet 1 ea PO DAILY Patient Comments: supplement cyanocobalamin (vitamin B-12) 500 mcg tablet, sublingual 1,000 mcg PO DAILY Patient Comments: supplement aspirin 81 mg tablet,chewable 81 mg PO DAILY Patient Comments: heart [facility] cholecalciferol (vitamin D3) 25 mcg (1,000 unit) tablet 2,000 unit PO BID Patient Comments: supplement atorvastatin 80 mg tablet 80 mg PO QHS propranolol 80 mg capsule,extended release 24 hr 80 mg PO Q24H trazodone 50 mg tablet 50 mg PO QHS tamsulosin 0.4 mg capsule 0.8 mg PO QHS metoprolol tartrate 50 mg tablet See Rx Instructions .ROUTE .COMPLEX Qty: 180 3RF Dose Instruction: TAKE 1 TABLET TWICE A DAY Rx Instructions: TAKE 1 TABLET TWICE A DAY nitroglycerin 0.4 mg tablet, sublingual See Rx Instructions .ROUTE .COMPLEX Qty: 25 6RF Dose Instruction: PLACE 1 TABLET UNDER THE TONGUE AND ALLOW TO DISSOLVE EVERY 5 TO 15 MINUTES FOR CHEST PAIN. DO NOT EXCEED 3 DOSES Rx Instructions: PLACE 1 TABLET UNDER THE TONGUE AND ALLOW TO DISSOLVE EVERY 5 TO 15 MINUTES FOR CHEST PAIN. DO NOT EXCEED 3 DOSES Other Ambulatory Orders: 30 Day Event Recorder Preventi (Urgent) Timeframe: 1 Day Facility: [facility] - Location: Cardiovascular Services Ordered By: Dr. Freeman Lu Referrals / Follow Up: Oniel Posada MD [Primary Care Provider] - See Referral Note (At next appointment time) Disposition Disposition (needs filled in before D/C Order can be placed): Home, Self Care Charges/Coding Visit Charges Inpatient E&M: 20205 Disch Hosp >30min
[2025-01-27 17:28] LABS: Bedside Glucose 136 mg/dL (74-106)
== END 2025-01-19 19:06 | disposition home or self-care (01) ==
LOC: ED 05:49 → PCU 06:29
PROVIDERS: Admitting Provider Family Medicine; Emergency Provider Emergency Medicine; PCP Family Medicine; Visit Provider Internal Medicine
DX: G45.9 Transient cerebral ischemic attack, unspecified (principal); G20.A1 Parkinson's disease without dyskinesia, without mention of fluctuations; R47.81 Slurred speech; I25.10 Atherosclerotic heart disease of native coronary artery without angina pectoris; Z95.2 Presence of prosthetic heart valve; Z79.82 Long term (current) use of aspirin; E78.5 Hyperlipidemia, unspecified; I69.322 Dysarthria following cerebral infarction; R29.898 Other symptoms and signs involving the musculoskeletal system; I10 Essential (primary) hypertension; Z79.899 Other long term (current) drug therapy; Z95.1 Presence of aortocoronary bypass graft
CPT/HCPCS: 70450; 70496; 70498; 70551; 71045; 80048; 81001; 82962; 85025; 85610; 85730; 93005; 93306; 94762; 96372; 97161; 97166; 99221; 99285; Q9957; Q9967; A4216; C8929; G0378

== ENCOUNTER → 2025-02-23 | Outpatient (CLI) | payer MEDICARE, SELFPAY ==
[2025-02-23 17:28] LABS: PSA,Total- Diagnostic 1.18 ng/mL (0.00-4.00)
== END | disposition home or self-care (01) ==
LOC: LAB 15:31
PROVIDERS: PCP Family Medicine; Referring Provider Urology; Visit Provider Urology
DX: N40.3 Nodular prostate with lower urinary tract symptoms (principal)
CPT/HCPCS: 36415; 84153

== ENCOUNTER 2025-04-07 13:41 | Observation (INO) | payer MEDICARE, SELFPAY ==
--- NOTE | 2025-03-24 20:19 | PAT.ANESEVAL ---
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 When Was Last Pacemaker Check QUESTION #4 FULL TEXT: You/Your Family Experience fever (hyperthermia) with Anesthesia Last Oral Intake Last Oral intake: Last Oral Intake NPO since Meds taken in AM with sips of water? 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: PONV - industrial plant custodian Female No 03/24/25 09:11 HX of Motion Sickness No 03/24/25 09:11 HX of N/V After Surgery No 03/24/25 09:11 Non-Smoker Yes 03/24/25 09:11 Duration of Surgery greater Yes 03/24/25 09:11 than 60 minutes Number of Risk Factors 2 03/24/25 09:11 PONV Score Moderate Risk 03/24/25 09:11 Height & Weight Height & Weight: Anesthesia: Height & Weight Height 5 ft 7 in 01/19/25 16:08 Respiratory Assessment Respiratory Assessment - industrial plant custodian: Respiratory Tract Infection Hx - industrial plant custodian Hx Respiratory Tract Infection No 03/24/25 09:11 STOP Sleep Apnea STOP Sleep Apnea - industrial plant custodian: STOP Sleep Apnea - industrial plant custodian Hx Hypertension Yes 03/24/25 09:11 Hx Sleep Apnea No 03/24/25 09:11 CPAP BIPAP Do you snore loudly (louder Yes 03/24/25 09:11 than talking or can be heard Do you often feel tired/ No 03/24/25 09:11 fatigued/ sleepy during daytime? Has anyone observed you stop No 03/24/25 09:11 breathing during sleep? STOP Results Positive 03/24/25 09:11 QUESTION #5 FULL TEXT : Do you snore loudly (louder than talking or can be heard through closed doors)? 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 Specify any problems Hx of Preganancy in last 3 N/A 03/24/25 09:11 Months Nurse Filling Out Transfusion [id number] 03/24/25 09:11 & Questions: Date: 03/24/25 03/24/25 09:11 Time: :03/24/25 09:11 Patient unable to answer at this time (ie. confused, unrespo /Reproduction History /Reproductive History - industrial plant custodian: /Reproductive Hx- industrial plant custodian Hx Now Gestational Age (in weeks): EDC: Hx Hx Para Hx Section SAB PFSH Medical History (Updated 03/24/25 @ 09:25 by James Landis) Thyroid disease History of steroid therapy Back pain TIA (transient ischemic attack) History of edema History of Holter monitoring History of echocardiogram History of stress test Cardiology follow-up encounter Parkinson's disease Stroke-like symptoms Parkinson disease Family history of malignant neoplasm of colon in mother Personal history of colonic polyps Essential tremor Aortic prosthetic valve regurgitation Deep vein thrombophlebitis of right leg Obesity Left carotid artery stenosis Prosthetic aortic valve stenosis Central sleep apnea Nonrheumatic aortic (valve) insufficiency Bicuspid aortic valve Vitamin D deficiency History of rheumatic fever Hyperlipidemia History of carotid artery disease Atherosclerosis of coronary artery of [place] heart without angina pectoris Essential hypertension Contusion of finger without damage to nail Laceration of finger of left hand without foreign body without damage to nail Hemorrhoids Shortness of breath Neck pain on left side Tingling and numbness left fingers Home Medications ?Medication ?Instructions ?Recorded ?Last Taken ?Type jgovplui-zfk-tbptm acid 0.4 1 ea PO DAILY SUPP 05/28/16 05/28/16 History mg-lycopene 300 mcg-lutein 250 mcg tablet acetaminophen 500 mg tablet 1,000 mg PO TID PRN fever or pain 05/29/19 Unknown History cyanocobalamin (vitamin B-12) 500 1,000 mcg PO DAILY SUPP 05/29/19 Unknown History mcg sublingual tablet aspirin 81 mg chewable tablet 81 mg PO DAILY PER DR 12/22/19 Unknown History carbidopa 25 mg-levodopa 100 mg 2 tab PO TID PARKINSONS 02/03/21 Unknown History tablet cholecalciferol (vitamin D3) 25 2,000 unit PO BID SUPP 02/03/21 Unknown History mcg (1,000 unit) tablet fluticasone propionate 50 1 spray intranasal DAILY PRN nasal 02/03/21 Unknown History mcg/actuation nasal congestion spray,suspension (Allergy Relief (fluticasone)) levothyroxine 25 mcg tablet 25 mcg PO DAILY THYROID 02/03/21 Unknown History atorvastatin 80 mg tablet 80 mg PO QHS CHOLESTEROL 01/19/25 Unknown History propranolol 80 mg capsule,24 80 mg PO Q24H BP 01/19/25 Unknown History hr,extended release tamsulosin 0.4 mg capsule 0.[address] mg PO QHS PER DR 01/19/25 Unknown History trazodone 50 mg tablet 50 mg PO QHS SLEEP 01/19/25 Unknown History clopidogrel 75 mg tablet (Plavix) 75 mg PO DAILY BLOOD THINNER 03/24/25 Unknown History metoprolol tartrate 50 mg tablet 50 mg PO BID BP 03/24/25 Unknown History nitroglycerin 0.4 mg sublingual 0.4 mg sublingual Q5M PRN CHEST 03/24/25 Unknown History tablet PAIN Allergy/AdvReac Type Severity Reaction Status Date / Time iodine Allergy Other Verified 03/24/25 09:05 Penicillins Allergy Hives Verified 03/24/25 09:05 Family History Mother Heart disease Colon cancer Father Diabetes Sister Heart disease Brother Heart disease Surgical History (Updated 03/24/25 @ 09:25 by aJmes Landis) History of total left knee replacement History of single vessel coronary artery bypass History of cataract extraction History of colonoscopy (~2014) History of left heart catheterization (08/26/18) H/O coronary artery bypass surgery (10/2018) H/O aortic valve replacement (10/2018) History of left-sided carotid endarterectomy (2008) History of hernia repair History of cholecystectomy History of tonsillectomy Social History Smoking Status: Never smoker alcohol intake: current alcohol intake frequency: a few times a month Alcohol type: beer and wine substance use type: does not use caffeine: No Audit: Pertinent Findings Pertinent Findings EKG Perinent findings: 01/19/2025. Sinus rhythm with sinus arrhythmia with occasional PVCs. Inferior infarct (cited on or before May 28, 2016) Echo (EF%) pertinent findings: January 19, 2025. EF of 55%. PASP is 23 mmHg. Bioprosthetic aortic valve. Mean aortic valve gradient 5 mmHg. Consult pertinent findings: 08/31/2024. Dr. [facility]?cardiology. 1. Coronary artery disease of [place] coronary arteries without angina pectoris-chronic dyspnea on exertion. Check echo to evaluate heart (see above) 2. Aortic valve replaced-check function with echo. 3. Hypertension?well-controlled. 4. Carotid stenosis?asymptomatic, bilateral?mild on most recent carotid ultrasound August 2023. 5. Dyspnea on exertion-check a BNP Additional pertinent findings: January 27, 2025. Holter monitor. Predominant rhythm was sinus. VE burden was 4%. SVE burden was 1%. Recommendation Anesthesia Recommendation Anesthesia recommendation: OPTIMIZED for anesthesia
[2025-04-07] VITALS (15 sets, daily range): BP systolic 128–171; BP diastolic 71–96; PULSE 52–68; RESP 14–18; TEMP 36.1–36.9; O2SAT 91–98; BMI 29.3
[2025-04-07] MEDS: Lactated Ringers 1,000 ML 15 ML IV (10:35)
--- NOTE | 2025-04-07 11:12 | PCM.PRE.AN2 ---
ASA Classification* ASA Classification ASA Classification: 3 (CABG x 4, CAD, Parkinsons , hypothyroid ) Assessment & Plan Anesthesia* Anesthesia Assessment Anesthesia Assessment: Discussed sedation and/or anesthesia options, risks, benefits, and alternatives with patient/parents/legal guardian/POA. Questions invited. The patient/parents/legal guardian/POA seems to understand and agrees to proceed with anesthesia plan. Reviewed the physical assessment, medical history, allergy history and patient home medications list prior to surgery/procedure/anesthetic and documented any changes. Performed airway and anesthesia risk assessments. I discussed with the patient the increased risk of complications, including but not limited to NM, CVA, and due to his recent TIA and cardiac history. The patient verbalized understanding and agreed to proceed with the procedure today Anesthesia Type Anesthesia Type: General (LMA. Keep BP well controlled near baseline due to CAD ) History Source History Obtained from:: Patient and Chart Anesthesia Focused Assessment* Temperature: 97.0 F Pulse Rate: 63 Blood Pressure: 128/78 Respiratory Rate: 18 Pulse Ox: 95 Oxygen Delivery Method: Room Air Airway Assessment Mouth opens: >3 cm Mallampati Score: III Neck Range of motion (ROM): Full ROM Labs Anesthesia Preop lab: CBC WBC 6.3 K/mm3 (4.4-11.0) 01/19/25 04:00 01/19/25 RBC 4.31 M/mm3 (4.6-6.2) L 01/19/25 04:00 01/19/25 Hgb 14.2 g/dL (13.0-16.5) 01/19/25 04:00 01/19/25 Hct 40.8 % (40-54) 01/19/25 04:00 01/19/25 Plt Count 135 K/mm3 (150-450) L 01/19/25 04:00 01/19/25 CHEMISTRY Potassium 4.1 mmol/L (3.3-5.1) 01/19/25 04:00 01/19/25 Sodium 140 mmol/L (133-145) 01/19/25 04:00 01/19/25 BUN 25 mg/dL (4-19) H 01/19/25 04:00 01/19/25 Creatinine 0.91 mg/dL (0.70-1.20) 01/19/25 04:00 01/19/25 Glucose 145 mg/dL (70-99) H 01/19/25 04:00 01/19/25 POC Glucose 136 mg/dL (74-106) H 01/19/25 03:56 01/19/25 TSH 4.20 uIU/mL (0.358-3.74) H 01/08/20 10:06 01/08/20 COAG PT 13.4 SECONDS (11.7-14.9) 01/19/25 04:00 01/19/25 Pre-Assessment Diagnosis/Proposed Procedure Planned Operative Procedure(s): TRANSURETEHRAL RESECTION OF PROSTATE, BOTOX IN BLADDER Anesthesia History Anesthesia History - senior gis analyst: Anesthesia History - senior gis analyst Hx Hospitalization Yes 03/24/25 09:11 Any Problems With Anesthesia No 03/24/25 09:11 Cholinesterase deficiency No 03/24/25 09:11 You/Your Family Experience No 03/24/25 09:11 fever (hyperthermia) with Relationship Recent Exposure to Contagious No 04/07/25 10:17 Disease Does patient have nerve No 03/24/25 09:11 stimulator Patient instructed to have device shut off --Does patient have Pacemaker No 04/07/25 10:17 or ICD? When Was Last Pacemaker Check QUESTION #4 FULL TEXT: You/Your Family Experience fever (hyperthermia) with Anesthesia Last Oral Intake Last Oral intake: Last Oral Intake NPO since 23:00 04/07/25 10:17 Meds taken in AM with sips of Yes 04/07/25 10:17 water? Meds patient instructed to take am of surgery PONV PONV - senior gis analyst: PONV - senior gis analyst Female No 03/24/25 09:11 HX of Motion Sickness No 03/24/25 09:11 HX of N/V After Surgery No 03/24/25 09:11 Non-Smoker Yes 03/24/25 09:11 Duration of Surgery greater Yes 03/24/25 09:11 than 60 minutes Number of Risk Factors 2 03/24/25 09:11 PONV Score Moderate Risk 03/24/25 09:11 Height & Weight Height & Weight: Anesthesia: Height & Weight Height 5 ft 7 in 04/07/25 10:17 Weight: 85 kg 04/07/25 10:17 Body Mass Index (BMI) 29.3 04/07/25 10:17 Respiratory Assessment Respiratory Assessment - senior gis analyst: Respiratory Tract Infection Hx - senior gis analyst Hx Respiratory Tract Infection No 03/24/25 09:11 STOP Sleep Apnea STOP Sleep Apnea - senior gis analyst: STOP Sleep Apnea - senior gis analyst Hx Hypertension Yes 03/24/25 09:11 Hx Sleep Apnea No 03/24/25 09:11 CPAP BIPAP Do you snore loudly (louder Yes 03/24/25 09:11 than talking or can be heard Do you often feel tired/ No 03/24/25 09:11 fatigued/ sleepy during daytime? Has anyone observed you stop No 03/24/25 09:11 breathing during sleep? STOP Results Positive 03/24/25 09:11 QUESTION #5 FULL TEXT : Do you snore loudly (louder than talking or can be heard through closed doors)? 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 Specify any problems Hx of Preganancy in last 3 N/A 03/24/25 09:11 Months Nurse Filling Out Transfusion [id number] 03/24/25 09:11 & Questions: Date: 03/24/25 03/24/25 09:11 Time: :03/24/25 09:11 Patient unable to answer at this time (ie. confused, unrespo /Reproduction History /Reproductive History - senior gis analyst: /Reproductive Hx- senior gis analyst Hx Now Gestational Age (in weeks): EDC: Hx Hx Para Hx Section SAB Active Medications Active Medications: Current Medications Generic Name Dose Route Start Last Admin Trade Name Freq PRN Reason Stop Dose Admin Botulinum Toxin Type A 100 units 04/07/25 12:00 Botulinum Toxin A 100 Units Vial IJ 04/07/25 12:01 X1 ONE Cefazolin Sodium 2 gm/ Sodium 110 mls @ 200 mls/hr 04/07/25 12:00 Chloride IV 04/07/25 12:32 INTRAOP ONE Lactated Ringer's 1,000 mls @ 15 mls/hr 04/07/25 10:45 04/07/25 10:35 IV 15 mls/hr .Q48H PEPITO Administration PFSH Medical History (Updated 03/24/25 @ 09:25 by James Landis) Thyroid disease History of steroid therapy Back pain TIA (transient ischemic attack) History of edema History of Holter monitoring History of echocardiogram History of stress test Cardiology follow-up encounter Parkinson's disease Stroke-like symptoms Parkinson disease Family history of malignant neoplasm of colon in mother Personal history of colonic polyps Essential tremor Aortic prosthetic valve regurgitation Deep vein thrombophlebitis of right leg Obesity Left carotid artery stenosis Prosthetic aortic valve stenosis Central sleep apnea Nonrheumatic aortic (valve) insufficiency Bicuspid aortic valve Vitamin D deficiency History of rheumatic fever Hyperlipidemia History of carotid artery disease Atherosclerosis of coronary artery of [place] heart without angina pectoris Essential hypertension Contusion of finger without damage to nail Laceration of finger of left hand without foreign body without damage to nail Hemorrhoids Shortness of breath Neck pain on left side Tingling and numbness left fingers Home Medications ?Medication ?Instructions ?Recorded ?Last Taken ?Type hkotatwr-xns-ilzll acid 0.4 1 ea PO DAILY SUPP 05/28/16 03/17/25 History mg-lycopene 300 mcg-lutein 250 mcg tablet acetaminophen 500 mg tablet 1,000 mg PO TID PRN fever or pain 05/29/19 Unknown History cyanocobalamin (vitamin B-12) 500 1,000 mcg PO DAILY SUPP 05/29/19 03/17/25 History mcg sublingual tablet aspirin 81 mg chewable tablet 81 mg PO DAILY PER 12/22/19 03/17/25 History carbidopa 25 mg-levodopa 100 mg 2 tab PO TID PARKINSONS 02/03/21 04/07/25 History tablet cholecalciferol (vitamin D3) 25 2,000 unit PO BID SUPP 02/03/21 03/17/25 History mcg (1,000 unit) tablet fluticasone propionate 50 1 spray intranasal DAILY PRN nasal 02/03/21 Unknown History mcg/actuation nasal congestion spray,suspension (Allergy Relief (fluticasone)) levothyroxine 25 mcg tablet 25 mcg PO DAILY THYROID 02/03/21 04/07/25 History atorvastatin 80 mg tablet 80 mg PO QHS CHOLESTEROL 01/19/25 04/06/25 History propranolol 80 mg capsule,24 80 mg PO Q24H BP 01/19/25 04/07/25 History hr,extended release tamsulosin 0.4 mg capsule 0.[address] PO QHS PER DR 01/19/25 04/06/25 History clopidogrel 75 mg tablet (Plavix) 75 mg PO DAILY BLOOD THINNER 03/24/25 Unknown History Held on 03/25/25. Instructions: MD Ordered nitroglycerin 0.4 mg sublingual 0.4 mg sublingual Q5M PRN CHEST 03/24/25 Unknown History tablet PAIN ezetimibe 10 mg tablet 10 mg PO DAILY 03/25/25 04/06/25 History finasteride 5 mg tablet 5 mg PO QHS 03/25/25 04/06/25 History Allergy/AdvReac Type Severity Reaction Status Date / Time iodine Allergy Other Verified 04/07/25 10:14 Penicillins Allergy Hives Verified 04/07/25 10:14 Family History Mother Heart disease Colon cancer Father Diabetes Sister Heart disease Brother Heart disease Surgical History (Updated 03/24/25 @ 09:25 by James Landis) History of total left knee replacement History of single vessel coronary artery bypass History of cataract extraction History of colonoscopy (~2014) History of left heart catheterization (08/26/18) H/O coronary artery bypass surgery (10/2018) H/O aortic valve replacement (10/2018) History of left-sided carotid endarterectomy (2008) History of hernia repair History of cholecystectomy History of tonsillectomy Social History Smoking Status: Never smoker alcohol intake: current alcohol intake frequency: a few times a month Alcohol type: beer and wine substance use type: does not use caffeine: No Review of Systems (Anesthesia) ROS Narrative System reviewed and no additional complaints, except as documented.
--- NOTE | 2025-04-07 12:00 | PROS_PTH ---
PATIENT: SEBASTIÁN COOLEY LOC: MS3 U#:[id number] AGE/SX: 84/M ROOM: [facility] [place]04/07/[address]: Dr. Andi Jara MD : 1940 BED: 1 DIS: 04/08/2025 SPEC #: [id number] RECD: 04/07/25 13:52 STATUS: GREG ESPINOZA #: [id number] VICKY: 04/07/25 12:[address]: Andi Jara DEPT: SURGICAL PATHOLOGY RECD BY: Piero Waddell ENTERED: 04/07/25 14:42 SP TYPE: TURP OTHR DR: Dr. Oniel Posada MD Tissues: A - Prostate, NOS Procedures: Surgery Specimen Level IV HEADER OPERATION: Cystoscopy, transurethral resection prostate, Botox injection PRE-OP DIAGNOSIS: Elevated prostate specific antigen, frequency of micturition TISSUE SUBMITTED: A- Prostate tissue MICROSCOPIC DIAGNOSIS A. Prostate, transurethral resection: Benign prostate tissue with stromal hyperplasia. MICROSCOPIC DESCRIPTION Slides are reviewed. GROSS DESCRIPTION A. Received in formalin labeled with the patient's name and date of . Designated as prostate tissue is a 12.9 g, 5.5 x 5.5 x 1.3 cm aggregate of irregular, neely, rubbery and cauterized tissue fragments. Entirely submitted in 7 cassettes. MO 04/07/2025 CPT:81302
[2025-04-07] MEDS: Cefazolin 1 GM/5 ML Vial 2 GM IV (12:40)
[2025-04-07] MEDS: Lidocaine 1% (5 ml sdv) 5 ML Vial 10 ML IV (12:49)
[2025-04-07] MEDS: 0.9% Normal Saline (Pres. free 10 ML Vial (13:08)
[2025-04-07] MEDS: fentaNYL 100 MCG/2 ML Ampul IV (13:17)
--- NOTE | 2025-04-07 13:33 | DCINST_ITS ---
Discharge Instructions DC O2, CPAP, BIPAP needs Home O2 Discharge instructions: No Dressing / Incision Discharge Activity: Return to Normal Activity and May Not Drive (while taking narcotic pain medications.) Dressing / Incision Call your doctor if you observe: Fever of 101 or Higher Follow Up Care Please Follow Up With: Andi Jara MD When: Call [phone] for an appointment Test Results: Test results from this visit will be discussed in further detail at your follow- up appointment, if applicable. Discharge Plan Admission Primary Reason for Your Visit: TURP AND BOTOX Attending Provider: Andi Jara Primary Care Provider: Oniel Posada Instructions Print Language: Belizean Discharge Orders/Prescriptions Prescriptions: Continued acetaminophen 500 mg tablet 1,000 mg PO TID PRN (Reason: fever or pain) fluticasone propionate [Allergy Relief (fluticasone)] 50 mcg/actuation spray,suspension 1 spray INTRANASAL DAILY PRN (Reason: nasal congestion) carbidopa-levodopa 25-100 mg tablet 2 tab PO TID levothyroxine 25 mcg tablet 25 mcg PO DAILY wqfgircj-vdy-DJ-lycopen-lutein 1 EACH tablet 1 ea PO DAILY Patient Comments: supplement cyanocobalamin (vitamin B-12) 500 mcg tablet, sublingual 1,000 mcg PO DAILY Patient Comments: supplement cholecalciferol (vitamin D3) 25 mcg (1,000 unit) tablet 2,000 unit PO BID Patient Comments: supplement nitroglycerin 0.4 mg tablet, sublingual 0.4 mg sublingual Q5M PRN (Reason: CHEST PAIN) Rx Instructions: PLACE 1 TABLET UNDER THE TONGUE AND ALLOW TO DISSOLVE EVERY 5 TO 15 MINUTES FOR CHEST PAIN. DO NOT EXCEED 3 DOSES ezetimibe 10 mg tablet 10 mg PO DAILY finasteride 5 mg tablet 5 mg PO QHS atorvastatin 80 mg tablet 80 mg PO QHS propranolol 80 mg capsule,extended release 24 hr 80 mg PO Q24H tamsulosin 0.4 mg capsule 0.8 mg PO QHS Held aspirin 81 mg tablet,chewable 81 mg PO DAILY Hold Instructions: Resume on 04/21/25. Patient Comments: heart [facility] clopidogrel [Plavix] 75 mg tablet 75 mg PO DAILY Hold Instructions: Resume on 04/21/25. Patient Comments: Patient never started after TIA Referrals / Follow Up: Oniel Posada MD [Primary Care Provider] - Andi Jara MD [Med Staff - Active Staff] - Disposition Disposition (needs filled in before D/C Order can be placed): Home, Self Care
--- NOTE | 2025-04-07 13:34 | PCM.OPRPT ---
Operative Report (Standard) Operative Information Date of Procedure: 04/07/25 Pre-Operative Diagnosis: BPH with obstruction and overactive bladder urge incontinence Post-Operative Diagnosis: Same Surgery/Procedure Performed: Cystoscopy injection of Botox in the bladder and transurethral section of prostate daily release and dupe printer: No Type of Anesthesia: General RN Documented Start/Stop Times: Operation Date: 04/07/25 12:00 Case Time Into Pre-Op 04/07/25 09:57 Anesthesia Start 04/07/25 12:40 Into Room 04/07/25 12:40 Out of Pre-Op 04/07/25 12:40 Procedure Start 04/07/25 13:00 Procedure End 04/07/25 13:28 Into Recovery Procedure Start Time: 13:00 Procedure Stop Time: 13:28 Select all DRAINS/GRAFTS/IMPLANTS that apply: Drains Drain details: 22 Russian three-way Estimated Blood Loss: 10 cc Specimen collected: Yes Description of specimen(s) removed: prostate tissue Description of surgery: Indication this is an 84-year-old male who has Parkinson's multiple medical problems who has frequency and urgency and bladder control problems on cystoscopy was found to have a significantly obstructive prostate causing blockage but he also has underlying Parkinson's and overactive bladder so today organ to try to treat both conditions again given Botox injection of the bladder 100 units discomfort on the bladder and will resect also the prostate open to help with bladder emptying hopefully this will improve his bladder symptoms and improve his bladder emptying and cut down his frequency the patient understands no guarantees of surgery or the procedure will help him and his and his problems with bladder control and frequency and urgency also that the risk of Inc. urinary incontinence and leakage and problems getting worse. This is explained to the patient the preoperative area he did express understanding and organ to proceed today Patient was taken back to the operating OptiSmoo duction of general anesthesia he was placed in dorsolithotomy position went in the bladder with a 21 Russian rigid cystourethroscope, 100 units of Botox prepared in the back table we then with the cystoscope he had a short but very obstructive prostate lateral lobes mostly a lot of tissue obstructing from the left lateral lobe of the prostate I then used a Botox needle and injected 10 sites about 1 cc per site for a total of 100 units to the back of the bladder the goal of this was to decrease bladder contractility so that his frequency and urgency will calm down. I then switched over to the resectoscope and using a median loop and used a 24 Russian 9 continuous-flow resectoscope identified the prostate identified obstructing tissue left and right uteruses were identified and then proceeded with the resection resected the prostate completely resect the prostate laterally and then resected back to the verumontanum but I made sure I did not over resect and nature of plenty of tissue around the sphincter area so the patient would hopefully not have any bladder control problems look like a good resection wide open tissue but enough tissue in the sphincter area that hopefully have good control of his bladder. Cauterized extensively to get hemostasis but a catheter in and then for the catheter and continuous bladder irrigation patient was taken back to the PACU in stable condition. Surgical Findings: Very obstructive prostate resected open Complications Complications: No Admit VTE Documentation VTE Present on Admission: No VTE Mechan Device Prophylaxis: SCD's VTE Pharm Prophylaxis ordered?: No
--- NOTE | 2025-04-07 13:42 | PCM.POST.ANE ---
Anesthesia: Postop Eval I Current Vital Signs Temperature: 97.8 F Pulse Rate: 55 Blood Pressure: 131/72 Respiratory Rate: 16 Pulse Ox: 92 Assessment Airway patent: Yes Spontaneous unlabored respirations: Yes nausea: No Vomiting: No Anesthesia Complication: No Fluid Hydration Crystalloid volume administer (ml): 1,000 Total IV fluid infused: 1,000 Progress Note Anesthesia document: Postop Eval 1 completed: Yes
--- NOTE | 2025-04-07 15:15 | POSTOPAN2_ITS ---
Anesthesia Postop Eval I Sum Postop Eval Completion status Anesthesia document: Postop Eval 1 completed: Yes Anesthesia Postop Eval I Summary Anesthesia Postop Eval I Summary: Anesthesia Postop Eval I: Assessment Summary Airway patent Yes 04/07/25 13:42 DENTURE CONTOUR [email or web address] Spontaneous unlabored Yes 04/07/25 13:42 DENTURE CONTOUR WIRE [email or web address] respirations Mental status nausea No 04/07/25 13:42 DENTURE CONTOUR [email or web address] Vomiting No 04/07/25 13:42 DENTURE CONTOUR [email or web address] Anesthesia Postop Eval I: Fluid Summary Crystalloid volume administer 1,000 04/07/25 13:42 DENTURE CONTOUR WIRE [email or web address] (ml) Colloids volume administered ( ml) Blood Product volume administered (ml) Total IV fluid infused 1,000 04/07/25 13:42 DENTURE CONTOUR WIRE [email or web address] Anesthesia Postop Eval I: Summary Notes Anesthesia Complication No 04/07/25 13:42 DENTURE CONTOUR WIRE [email or web address] Anesthesia Complication Comment: Post-operative progress note Anesthesia: Postop Eval II Evaluation Mental status: Awake Pain Level: 0 nausea: No Vomiting: No Complications Anesthesia Complication: No
--- NOTE | 2025-04-07 15:15 | PCM.POSTANE2 ---
Anesthesia Postop Eval I Sum Postop Eval Completion status Anesthesia document: Postop Eval 1 completed: Yes Anesthesia Postop Eval I Summary Anesthesia Postop Eval I Summary: Anesthesia Postop Eval I: Assessment Summary Airway patent Yes 04/07/25 13:42 [email or web address] Spontaneous unlabored Yes 04/07/25 13:42 [email or web address] respirations Mental status nausea No 04/07/25 13:42 [email or web address] Vomiting No 04/07/25 13:42 [email or web address] Anesthesia Postop Eval I: Fluid Summary Crystalloid volume administer 1,000 04/07/25 13:42 [email or web address] (ml) Colloids volume administered ( ml) Blood Product volume administered (ml) Total IV fluid infused 1,000 04/07/25 13:42 [email or web address] Anesthesia Postop Eval I: Summary Notes Anesthesia Complication No 04/07/25 13:42 [email or web address] Anesthesia Complication Comment: Post-operative progress note Anesthesia: Postop Eval II Evaluation Mental status: Awake Pain Level: 0 nausea: No Vomiting: No Complications Anesthesia Complication: No
[2025-04-07] MEDS: 0.9% Normal Saline (1000mL) 1,000 ML 125 ML IV ×2 (15:23→23:26)
[2025-04-08 03:28] VITALS: BP 116/69; PULSE 64; RESP 18; TEMP 36.8; O2SAT 94
[2025-04-08] MEDS: 0.9% Normal Saline (1000mL) 1,000 ML 125 ML IV (07:02)
[2025-04-08 07:05] VITALS: BP 106/63; PULSE 64; RESP 18; TEMP 36.6; O2SAT 94
--- NOTE | 2025-04-08 07:30 | DS.PCM_ITS ---
Providers Date of Admission: 04/07/25 Date of Discharge: 04/08/25 Primary Care Physician: Dr. Oniel Posada MD Reason For Visit: TURP Medications at Discharge Home Medications daxflhoo-idb-gqzsl acid 0.4 mg-lycopene 300 mcg-lutein 250 mcg tablet 1 ea PO DAILY SUPP 05/28/16 acetaminophen 500 mg tablet 1,000 mg PO TID PRN fever or pain 05/29/19 cyanocobalamin (vitamin B-12) 500 mcg sublingual tablet 1,000 mcg PO DAILY SUPP 05/29/19 aspirin 81 mg chewable tablet 81 mg PO DAILY PER 12/22/19 Held on 04/07/25. Instructions: Resume on 04/21/25. carbidopa 25 mg-levodopa 100 mg tablet 3 tab PO TID PARKINSONS 02/03/21 cholecalciferol (vitamin D3) 25 mcg (1,000 unit) tablet 2,000 unit PO BID SUPP 02/03/21 fluticasone propionate 50 mcg/actuation nasal spray,suspension (Allergy Relief (fluticasone)) 1 spray intranasal DAILY PRN nasal congestion 02/03/21 levothyroxine 25 mcg tablet 25 mcg PO DAILY THYROID 02/03/21 atorvastatin 80 mg tablet 80 mg PO QHS CHOLESTEROL 01/19/25 propranolol 80 mg capsule,24 hr,extended release 80 mg PO Q24H BP 01/19/25 tamsulosin 0.4 mg capsule 0.8 mg PO QHS PER 01/19/25 clopidogrel 75 mg tablet (Plavix) 75 mg PO DAILY BLOOD THINNER 03/24/25 Held on 04/07/25. Instructions: Resume on 04/21/25. nitroglycerin 0.4 mg sublingual tablet 0.4 mg sublingual Q5M PRN CHEST PAIN 03/24/25 ezetimibe 10 mg tablet 10 mg PO DAILY 03/25/25 finasteride 5 mg tablet 5 mg PO QHS 03/25/25 Hospital Course Operations TURP Physical Exam Const alert and oriented x3 General Appearance: cooperative HEENT normocephalic and head/scalp atraumatic Eyes PERRL and EOMs intact bilaterally Neck supple, no JVD and no carotid bruits Resp normal respiratory effort, normal air movement and clear to auscultation bilaterally Cardio regular rate and no murmurs GI normal to inspection, nondistended, normoactive bowel sounds and soft to palpation Extremity normal capillary refill General Extremity: no tenderness to palpation of joints or extremities; Negative for edema Skin no rashes or lesions noted and no wounds General Skin Exam: no breakdown Neuro CN's II-XII intact bilaterally Psych affect normal Appearance: appropriate Weight / BMI Weight Weight: 85 kg Body Mass Index (BMI) 29.3 D/C Instructions Call your doctor if you observe: Fever of 101 or Higher DC O2, CPAP, BIPAP Needs Home O2 Discharge instructions: No Please Follow Up With: Andi Jara MD When: Call [phone] for an appointment Meaningful Use Info Meaningful Use Meaningful Use Diagnoses (Choose all that apply): None applicable Discharge Plan Admission Admit Date/Time: 04/07/25 13:41 Primary Reason for Your Visit: TURP AND BOTOX Attending Provider: Andi Jara Primary Care Provider: Oniel Posada Discharge Orders/Prescriptions Prescriptions: Continued acetaminophen 500 mg tablet 1,000 mg PO TID PRN (Reason: fever or pain) fluticasone propionate [Allergy Relief (fluticasone)] 50 mcg/actuation spray,suspension 1 spray INTRANASAL DAILY PRN (Reason: nasal congestion) carbidopa-levodopa 25-100 mg tablet 3 tab PO TID levothyroxine 25 mcg tablet 25 mcg PO DAILY nyqenfgs-lic-EK-lycopen-lutein 1 EACH tablet 1 ea PO DAILY Patient Comments: supplement cyanocobalamin (vitamin B-12) 500 mcg tablet, sublingual 1,000 mcg PO DAILY Patient Comments: supplement cholecalciferol (vitamin D3) 25 mcg (1,000 unit) tablet 2,000 unit PO BID Patient Comments: supplement nitroglycerin 0.4 mg tablet, sublingual 0.4 mg sublingual Q5M PRN (Reason: CHEST PAIN) Rx Instructions: PLACE 1 TABLET UNDER THE TONGUE AND ALLOW TO DISSOLVE EVERY 5 TO 15 MINUTES FOR CHEST PAIN. DO NOT EXCEED 3 DOSES ezetimibe 10 mg tablet 10 mg PO DAILY finasteride 5 mg tablet 5 mg PO QHS atorvastatin 80 mg tablet 80 mg PO QHS propranolol 80 mg capsule,extended release 24 hr 80 mg PO Q24H tamsulosin 0.4 mg capsule 0.8 mg PO QHS Held aspirin 81 mg tablet,chewable 81 mg PO DAILY Hold Instructions: Resume on 04/21/25. Patient Comments: heart [employer] [facility] clopidogrel [Plavix] 75 mg tablet 75 mg PO DAILY Hold Instructions: Resume on 04/21/25. Patient Comments: Patient never started after TIA Referrals / Follow Up: Oniel Posada MD [Primary Care Provider] - Andi Jara MD [Med Staff - Active Staff] - Disposition Discharge Orders: Discharge Patient (Routine); Ordered 04/08/25 Ordered By: Dr. Andi Jara
[2025-04-08 09:15] VITALS: BP 112/62; PULSE 62; RESP 16; TEMP 36.6; O2SAT 94
--- NOTE | 2025-04-08 11:39 | CHAPLAIN ---
Type of Pastoral Visit _x__ Initial Visit ___ Follow-up Visit ___ On-call Visit ___ General Patient Visit ___ Spiritual Assessment ___ Family Conference ___ Bereavement ___ Rapid Response ___ Code Blue ___ Other (describe below) Pastoral Care Referral From _x__ Patient ___ Family ___ Nurse ___ Physician ___ [place] Manager ___ Ice Skating Instructor ___ Other (describe below) Sacrament/Intervention _x__ Active listening ___ Anointing ___ Buddhist ___ Bereavement ___ Communion ___ Belinda exploration ___ ___ Life review ___ Prayer ___ Reconciliation ___ Sacrament of Sick _x__ Supportive presence ___ Wedding ___ Other (describe below) Pastoral Comments patient reports doing well and has expectation of being discharged; spouse is with him and is supportive stating we have been through many surgeries and know what to do; patient denies worries or concerns
[2025-04-08 13:42] VITALS: BP 114/62; PULSE 66; RESP 16; TEMP 36.4; O2SAT 94
== END 2025-04-08 13:43 | disposition home or self-care (01) ==
LOC: SDC 13:52 → MS3 13:52
PROVIDERS: Admitting Provider Urology; PCP Family Medicine; Referring Provider Urology; Visit Provider Urology
PROC: 0VT08ZZ Resection of Prostate, Via Natural or Artificial Opening Endoscopic (ICD-10-PCS; CPT 52601; principal; 2025-04-07 11:50)
DX: N40.1 Benign prostatic hyperplasia with lower urinary tract symptoms (principal); G20.A1 Parkinson's disease without dyskinesia, without mention of fluctuations; N32.81 Overactive bladder; N39.41 Urge incontinence; N13.8 Other obstructive and reflux uropathy; Z79.899 Other long term (current) drug therapy; Z79.82 Long term (current) use of aspirin; R35.0 Frequency of micturition
CPT/HCPCS: 52601; 52287; 00914; 88305; 96360; 96361; 99221; G0378; J0585; J2405

== ENCOUNTER 2025-04-10 06:03 | Emergency (ER) | payer MEDICARE, SELFPAY ==
[2025-04-10 06:05] VITALS: BP 172/91; PULSE 71; RESP 20; TEMP 36.5; O2SAT 96; BMI 30.4
--- NOTE | 2025-04-10 06:07 | EX.ED.DYSGE1 ---
HPI History of Present Illness Chief Complaint: Abd Pain [facility] Medical History (Updated 03/24/25 @ 09:25 by James Landis) Thyroid disease History of steroid therapy Back pain TIA (transient ischemic attack) History of edema History of Holter monitoring History of echocardiogram History of stress test Cardiology follow-up encounter Parkinson's disease Stroke-like symptoms Parkinson disease Family history of malignant neoplasm of colon in mother Personal history of colonic polyps Essential tremor Aortic prosthetic valve regurgitation Deep vein thrombophlebitis of right leg Obesity Left carotid artery stenosis Prosthetic aortic valve stenosis Central sleep apnea Nonrheumatic aortic (valve) insufficiency Bicuspid aortic valve Vitamin D deficiency History of rheumatic fever Hyperlipidemia History of carotid artery disease Atherosclerosis of coronary artery of [place] heart without angina pectoris Essential hypertension Contusion of finger without damage to nail Laceration of finger of left hand without foreign body without damage to nail Hemorrhoids Shortness of breath Neck pain on left side Tingling and numbness left fingers Home Medications ?Medication ?Instructions ?Recorded ?Last Taken ?Type acetaminophen 500 mg tablet 1,000 mg PO TID PRN fever or pain 05/29/19 Unknown History aspirin 81 mg chewable tablet 81 mg PO DAILY PER 12/22/19 03/17/25 History Held on 04/07/25. Instructions: Resume on 04/21/25. carbidopa 25 mg-levodopa 100 mg 3 tab PO TID PARKINSONS 02/03/21 04/07/25 History tablet levothyroxine 25 mcg tablet 25 mcg PO DAILY THYROID 02/03/21 04/07/25 History atorvastatin 80 mg tablet 80 mg PO QHS CHOLESTEROL 01/19/25 04/06/25 History propranolol 80 mg capsule,24 80 mg PO Q24H BP 01/19/25 04/07/25 History hr,extended release tamsulosin 0.4 mg capsule 0.8 mg PO QHS PER 01/19/25 04/06/25 History clopidogrel 75 mg tablet (Plavix) 75 mg PO DAILY BLOOD THINNER 03/24/25 Unknown History Held on 04/07/25. Instructions: Resume on 04/21/25. nitroglycerin 0.4 mg sublingual 0.4 mg sublingual Q5M PRN CHEST 03/24/25 Unknown History tablet PAIN ezetimibe 10 mg tablet 10 mg PO DAILY 03/25/25 04/06/25 History finasteride 5 mg tablet 5 mg PO QHS 03/25/25 04/06/25 History ciprofloxacin HCl 500 mg tablet 500 mg PO BID 7 days #14 TABLETS 04/10/25 Unknown Rx Allergy/AdvReac Type Severity Reaction Status Date / Time iodine Allergy Other Verified 04/07/25 10:14 Penicillins Allergy Hives Verified 04/07/25 10:14 Family History Mother Heart disease Colon cancer Father Diabetes Sister Heart disease Brother Heart disease Surgical History (Updated 03/24/25 @ 09:25 by James Landis) History of total left knee replacement History of single vessel coronary artery bypass History of cataract extraction History of colonoscopy (~2014) History of left heart catheterization (08/26/18) H/O coronary artery bypass surgery (10/2018) H/O aortic valve replacement (10/2018) History of left-sided carotid endarterectomy (2008) History of hernia repair History of cholecystectomy History of tonsillectomy Social History Smoking Status: Never smoker alcohol intake: current alcohol intake frequency: a few times a month Alcohol type: beer and wine substance use type: does not use caffeine: No EXAM Physical Exam Const Vital Signs: 04/10/25 06:05 Temperature 97.7 F L Temperature Source Oral Pulse Rate 71 Respiratory Rate 20 H Blood Pressure 172/91 H Blood Pressure Mean 118 Pulse Ox 96 Oxygen Delivery Method Room Air MDM MDM MDM Narrative Medical decision making narrative: HISTORY OF PRESENT ILLNESS: Chief complaint: Lower abdominal pain 84-year-old male presents 3 days postop after transurethral resection of prostate here at [facility] by Dr. Jara of the local urologist. He states he has lower abdominal pain. This began yesterday. Notes decreased urination. No sense of fullness in the lower abdomen. The patient's notes he got a Botox injection as well as a TURP. Notes bleeding has slowed down since the operation. Patient denies vomiting, fever. Denies falls. REVIEW OF SYSTEMS: Pertinent positives: Abdominal pain, decreased urination Pertinent negatives: As per HPI PHYSICAL EXAM: Nursing triage notes reviewed, Vital signs reviewed Constitutional: please see mdm HENT: MMM Eyes: Pupils equal round and reactive to light, Extraocular muscles intact Neck: No stridor, no JVD, full neck ROM Lungs: Clear to auscultation, No wheezing or rales. No increased work of breathing, no conversational dyspnea, no accessory muscle use, no nasal flaring. No respiratory distress noted Heart: Regular rate and rhythm, No murmurs, No rubs and No gallops, 2+ distal pulses (radial, femoral, posterior tibial) in all extremities Abdomen: Suprapubic TTP, suprapubic distention and fullness. But no rigidity, rebound or guarding, no obvious peritoneal signs, no palpable pulsatile abdominal masses, no auscultated abdominal bruit : No CVAT Extremities: No edema Neuro: No new focal neurological deficits, cranial nerves II through XII intact, 5/5 strength in all present extremities. Intact sensation to light touch in all present extremities, 2+ reflexes bilateral patella tendons. Skin: No rash or lesions noted MEDICAL DECISION MAKING: Chief Complaint: please see HPI External records reviewed: Reviewed operative report by Dr. Jara. Patient underwent cystoscopy with injection of Botox in the bladder and transurethral resection of the prostate on 04/07/2025 Factors affecting care: BPH, overactive bladder, urge incontinence Social determinants of health: none History obtained from others: Consults: none initially likely will require urology consultation once workup is complete. MDM Narrative: The patient was initially hypertensive the blood pressure 172/91, he is afebrile he is nontoxic-appearing. Exam with suprapubic TTP and fullness. Bladder scan revealed greater than 700 cc of urine in the bladder. Is consistent with urinary retention. Patient noted complete improvement in symptoms after Cárdenas catheter was placed. I considered the following differential diagnosis: Urinary retention, UTI, NAVDEEP I obtained a broad lab and imaging workup to further determine if the patient was suffering from a life-threatening etiology. Patient's clinical exam and history consistent with likely urinary retention. Opted to check the patient's kidney function, blood counts and place a Cárdenas catheter. Upon reassessment after Cárdenas catheter placement the patient noted complete improvement in symptoms. ALL IMAGES (IF OBTAINED) HAVE BEEN PERSONALLY REVIEWED AND INTERPRETED BY MYSELF. CBC with mild leukocytosis suggestive of systemic summation, no anemia BMP with no significant electrolyte abnormalities, no sign of endorgan hypoperfusion, there is slight renal insufficiency owing to recent surgery and urinary retention but no significant acute kidney injury or signs of renal failure. Urinalysis is pending at this time. Urine cultures pending at this time. Given recent bladder manipulation with TURP and Cárdenas catheter placement will give prophylactic ciprofloxacin. Gave strict return precautions for urinary retention. Gave close outpatient urology follow-up. The patient and/or family, caregivers express understanding. The patient and/or family, caregivers agrees with the plan. Shared decision making: I will have a discussion with the patient and or visitors regarding risk/benefits of further testing or admission. They will be made aware of of the risk/benefits inherent in this decision they will be given the opportunity to voice understanding. Total critical care time today provided was at least 0 minutes. This excludes separately billable procedures. Critical care time (if documented) is secondary to the patient having high probability of clinically significant/life threatening deterioration in the patient's condition which required my urgent intervention. Impression: 1. Acute abdominal pain 2. History of TURP 3. History of BPH Dispo: Pending lab and imaging evaluation This note was generated with [employer] dictation software. It may contain incorrect words, spelling, and punctuation that were not noted in review of the chart prior to signing. Lab Data Labs: Laboratory Results - last 24 hr 04/10/25 04/10/25 06:12 06:30 WBC 12.8 H RBC 4.17 L Hgb 13.7 Hct 39.7 L MCV 95.2 H MCH 32.9 H MCHC 34.5 RDW Std Deviation 46.0 H RDW Coeff of Adrian 13.1 Plt Count 199 MPV 10.2 Immature Gran % (Auto) 0.500 Neut % (Auto) 74.8 H Lymph % (Auto) 15.0 L Brule % (Auto) 7.8 Eos % (Auto) 1.4 Baso % (Auto) 0.5 Absolute Neuts (auto) 9.6 H Absolute Lymphs (auto) 1.92 Nucleated RBC % 0 Sodium 136 Potassium 4.2 Chloride 103 Carbon Dioxide 19.7 L Anion Gap 13 BUN 29 H Creatinine 1.34 H Estim Creat Clear Calc 44.25 L Est GFR (MDRD) Non-Af 53 L BUN/Creatinine Ratio 21.9 H Glucose 166 H Calcium 9.7 Urine Color Cristiane Urine Clarity Sl. Cloudy Urine pH 6.0 Ur Specific [place] 1.015 Urine Protein 100 H Urine Glucose (UA) Normal Urine Ketones 5 H Urine Occult Blood 250 H Urine Nitrite Positive H Urine Bilirubin Negative Urine Urobilinogen Normal Ur Leukocyte Esterase 25 H Urine RBC 10-25 SEEN Urine WBC 0 SEEN Ur Squamous Epith Cells 0 SEEN Urine Bacteria 1+ Urine Mucus 0 SEEN Discharge Plan Triage Chief Complaint: Abd Pain Other Complaint: Male Pain/Injury ED Provider: Ronn Olson Dx/Rx/DC Orders Instructions: ED Urinary Retention, Female Prescriptions: New ciprofloxacin HCl 500 mg tablet 500 mg PO BID 7 Days Qty: 14 0RF No Action acetaminophen 500 mg tablet 1,000 mg PO TID PRN (Reason: fever or pain) carbidopa-levodopa 25-100 mg tablet 3 tab PO TID levothyroxine 25 mcg tablet 25 mcg PO DAILY aspirin 81 mg tablet,chewable 81 mg PO DAILY Patient Comments: heart [facility] clopidogrel [Plavix] 75 mg tablet 75 mg PO DAILY Patient Comments: Patient never started after TIA nitroglycerin 0.4 mg tablet, sublingual 0.4 mg sublingual Q5M PRN (Reason: CHEST PAIN) Rx Instructions: PLACE 1 TABLET UNDER THE TONGUE AND ALLOW TO DISSOLVE EVERY 5 TO 15 MINUTES FOR CHEST PAIN. DO NOT EXCEED 3 DOSES ezetimibe 10 mg tablet 10 mg PO DAILY finasteride 5 mg tablet 5 mg PO QHS atorvastatin 80 mg tablet 80 mg PO QHS propranolol 80 mg capsule,extended release 24 hr 80 mg PO Q24H tamsulosin 0.4 mg capsule 0.8 mg PO QHS Primary Care Provider: Oniel Posada Referrals: Andi Jara MD [Med Staff - Active Staff] - Activity Restrictions/Additional Instructions: Thank you for trusting us with your care today! Your presentation is consistent with urinary retention. This is treated with Cárdenas catheter. Cárdenas cath remains in place until outpatient urology follow-up. Please take ciprofloxacin as prescribed until course is complete. Please take Tylenol (2 pills, 650 mg), ibuprofen (2 pills, 400 mg) every 6 hours as needed for pain and fever control. Please return to the emergency department if your symptoms change or worsen. Please follow with Dr. Jara for further outpatient evaluation and management. Print Language: Kazakh Disposition Disposition: Home, Self Care
[2025-04-10] MEDS: Lidocaine Jelly 2% 20 ML Syringe (URO-JET) 1 APPLIC TOPICAL (06:28)
[2025-04-10 06:32] LABS: Hematocrit 39.7 % (40-54); Hemoglobin 13.7 g/dL (13.0-16.5); Immature Granulocytes Count 0.060 X10^3/uL (0.0-0.0); Mean Corp Hgb Conc 34.5 g/dL (32-36); Mean Corpuscular Volume 95.2 fL (80-94); Mean Platelet Vol. 10.2 fl (6.2-12.0); NRBC Flagged by Analyzer 0 % (0-5); Platelet Count 199 K/mm3 (150-450); RBC Distribution Width CV 13.1 % (11.6-14.6); RBC Distribution Width SD 46.0 fl (35.1-43.9); Red Blood Count 4.17 M/mm3 (4.6-6.2); White Blood Count 12.8 K/mm3 (4.4-11.0)
[2025-04-10 06:43] LABS: Mucous, Urine 0 SEEN /hpf (<or=2+); Squamous Epithelial Cells - UA 0 SEEN /hpf (0-5)
[2025-04-10 06:45] LABS: Color, Urine Amber (Yellow); Glucose, Dipstick Normal (Normal); Ketone-Dipstick 5 mg/dl (Negative); Leukocyte Esterase-Dipstick 25 /ul (Negative); Nitrite-Dipstick Positive (Negative); Occult Blood-Urine 250 /ul (Negative); Protein-Dipstick 100 mg/dl (Negative); Specific Gravity, Urine 1.015 (1.002-1.030); Urine Bilirubin Dipstick Negative (Negative)
--- OUTSIDE RECORDS SUMMARY | 2025-04-10 06:48 | XMS RPT_ITS | CCD ---
Author Organization [facility] Care Team Providers Care Garage Worker Name Role Phone KIZZY BAILEY Attending Unavailable [...] Oniel Francis MD Primary Care Provider [phone] Oniel Francis MD Primary Care Provider No, Referral Unavailable Unavailable No, Referral Unavailable Unavailable Oniel Francis MD Primary Care Provider Oniel Francis MD Primary Care Provider [phone] ONIEL FRANCIS MD Primary Care Physician Merritt PT, Amy Unavailable Unavailable JAVI BARTH, DR DEAN Abbott Attending UnavailONIEL Doe MD Primary Care Unavailable JAVI BARTH, DR DEAN Abbott Attending UnavailONIEL Doe MD Primary Care Unavailable JAVI BARTH, DR DEAN Abbott Attending Unavailab Roseanne BARTH, ONIEL Abbott Primary Care Unavailable JAVI BARTH, DR DEAN Abbott Admitting Unavailab AMY Shine Consulting Unavailable Bree ADAMS.RECOVERY ASSISTANT, Zina Unavailable Ella Valdovinos PA-C Unavailable Oniel Francis MD Primary Care Provider Tito BARTH, Dr. Engle Primary Care Provider Marsha BARTH, Dr. Self Attending Provider Dr. Tate Mcdonough DO Emergency Provider Jame BARTH, Dr. Houser Attending Provider Jame BARTH, Dr. Houser Admit Provider Jame BARTH, Dr. Houser Other Provider Dr. Leti Lu DO Attending Provider Graham Gutierrez MD Other Provider Unavailable Jh BARTH, Dr. Barahona Other Provider Rosalino BARTH, Bianca Other Provider Unavailable Dr. Kavita Glass DO Other Provider Nils BARTH, Dr. Saxena Other Provider Сергей BARTH, Dr. Castro Other Provider Tyron BARTH, Dr. Pritchett Other Provider Liz BARTH, Dr. Pizano Other Provider Hao BARTH, Dr. Barlow Other Provider Bobby BARTH, Dr. Collier Other Provider Xenia Fournier MD Other Provider Foreign BARTH, Dr. Hilario Other Provider Christian BARTH, Dr. Lake Other Provider Janell BARTH, Dr. Cummings Other Provider Dr. Audi Phillip MD Other Provider Bonifacio BARTH, Dr. Fiore Other Provider Laura BARTH, Dr. Mcnally Other Provider Christine BARTH, Dr. Neal Other Provider Pawan BARTH, Dr. Foote Other Provider Unavailable Harsha BARTH, Tia Other Provider Unavailable Bree BUCKLE INSPECTOR.RECOVERY ASSISTANT, Zina Unavailable Bonifacio AGUILAR, Ella Unavailable Dr. Leti Lu DO Referring Provider Estefani BARTH, Dr. Andi Jaramillo Attending Provider Estefani BARTH, Dr. Andi Jaramillo Referring Provider TITO, ONIEL A Primary Care Unavailable MARJ MACKEY Referring Unavailable ITTO, ONIEL A Primary Care Unavailable WEISSFELD, ABBY Referring Unavailable WEISSFELD, ABBY Attending Unavailable NARENDRAMARJ CHRISTIANSEN Referring Unavailable TITO, ONIEL A Primary Care Unavailable NARENDRAMARJ Referring Unavailable NARENDRA, MARJ HOUSER Attending Unavailable TITO, ONIEL A Primary Care Unavailable TITO, ONIEL A Primary Care Unavailable ZINA DURAN Referring Unavailable TITO, ONIEL A Primary Care Unavailable ZINA DURAN Attending Unavailable TITO, ONIEL A Primary Care Unavailable ELLA VALDOVINOS Attending Unavailable TITO, ONIEL A Primary Care Unavailable WEISSFELD, ABBY Referring Unavailable WEISSFELD, ABBY Attending Unavailable TITO, ONIEL A Primary Care Unavailable LETI RODRIGUEZ Attending Unavailable TITO, ONIEL A Primary Care Unavailable ELLA VALDOVINOS Referring Unavailable TITO, ONIEL A Attending Unavailable TITO, ONIEL A Primary Care Unavailable Estefani BARTH, Dr. Andi Jaramillo Admit Provider [phone] Tito, Oniel Primary Care Unavailable Mik Kilgore Attending Unavailable Tito, Oniel Primary Care Unavailable Aramis Larson Attending Unavailable Tito, Oniel Primary Care Unavailable KnZina ybarra Referring Unavailable Zina Duran Attending Unavailable Leti Lu Attending Unavailable Tito, Oniel Primary Care Unavailable Mik Kilgore Admitting Unavailable Mik Kilgore Consulting Unavailable Graham Gutierrez Consulting Unavailable Adeli, Amir Consulting Unavailable Hinduja, Bianca Consulting Unavailable Quan, Kavita Consulting Unavailable Zha, Odessa Consulting Unavailable Сергей, Matthew Consulting Unavailable Tyron, Yarely Consulting Unavailable Harinder Hill Consulting Unavailable Jorge Bui Consulting Unavailable Nando Rosales Consulting Unavailable Xenia Fournier Consulting Unavailable Sulaiman Carrasquillo Consulting Unavailable Aleksandra Gonzales Consulting Unavailable Zoila Maciel Consulting Unavailable Kenji, Madisond Yoan Consulting UnavailAdebayo Alan Consulting Unavailable Dali Sanchez Consulting Unavailable Ángel King Consulting Unavailable Dary Villalta Consulting Unavailable Tia Mcleod Consulting Unavailable Oniel Francis Primary Care Unavailable Leti Lu Referring Unavailable Aramis Larson Attending Unavailable Oniel Francis Primary Care Unavailable Andi Jara Admitting Unavailable Andi Jara Attending Unavailable Andi Jara Referring Unavailable Oniel Francis Primary Care Unavailable EstefaniAndi madera Referring Unavailable Andi Jara Attending Unavailable Leti Lu Attending Unavailable Leti Lu Referring Unavailable Tito Oniel [facility]available Aramis Larson Attending Unavailable Allergies Allergy Classification Reported Allergen(s) Allergy Type Date of Onset Reaction(s) Facility Iodine (and Iodine containting drugs) (2 sources) Iodine Drug Allergy 3 Other: See Comments [facility] Penicillins (antibiotic) (2 sources) Penicillin G Drug Allergy 3 [facility] (20 sources) Iodine; Translations: [IODINE] Drug Allergy 3 Other: See Comments [facility] Repository (20 sources) Penicillin; Translations: [PENICILLIN G] Drug Allergy 3 [facility] [place] Repository (3 sources) Contrast media; Translations: [iodinated radiocontrast agents] Allergy to substance Hypotension [facility] (3 sources) Penicillin; Translations: [penicillin] Drug Allergy Rash [facility] (5 sources) Penicillins Allergy to substance 1 [facility] (1 source) Penicillins Drug allergy (disorder) 5 [facility] Repository Medications Current Medications Medication Drug Class(es) Dates Sig (Normalized) Sig (Original) acetaminophen 500 mg oral capsule (20 sources) Start: 02-19-2024 End: 03-04-2024 take 1 capsule by mouth once daily acetaminophen 500 mg oral capsule Dose : 1,000 mg = 2 cap(s), Oral, TID, PRN for pain, not to exceed 3000 mg/day, # 100 cap(s), 0 Refill(s), 03/04/24 8:41:00 AM EDT, Pharmacy: [facility]/pharmacy #[id number], 170.2, cm, 02/18/24 17:02:00 EDT, Height, kg, 02/18/24 17:02:00 EDT, Dosing Weight Start Date: 02/19/24 Stop Date: 03/04/24 Status: Ordered Start: 05-29-2019 take 2 tablets by mo uth three times daily as needed for pain Acetaminophen 500 mg tablet Active 1000 mg PO THREE TIMES A DAY as needed for fever or pain May 29, 2019 12:00am take 2 tablets [...] mg PO DAILY December 22, 2019 3:09pm PER DR On Hold: Resume on 04/21/25. Start: 12-11-2019 take 1 tablet by filemon [...] Comment on above: Take 1 tablet by filmeon th once daily. atorvastatin 80 mg oral tablet (20 sources) HMG-CoA Reductase Inhibitor Start: End: take 1 tablet by mouth once daily atorvastatin (LIPITOR) 80 mg tablet Indications: Mixed hyperlipidemia Take 1 tablet by mouth once daily. 90 tablet 1 02/08/2025 Active Start: 07-31-2023 take 1 tablet by [...] tablet 1 06/22/2022 Active Start: 05-28-2016 End: 01-19-2025 take 1 tablet by mouth at bedtime Atorvastatin 40 MG tablet Discontinued 40 mg PO AT BEDTIME May 28, 2016 12:00am January 19, 2025 4:10am Comment on above: Take 1 tablet by filemon th once daily. carbidopa 25 mg / levodopa 100 mg extended release oral tablet (20 sources) Aromatic Amino Acid Decarboxylation Inhibitor, Aromatic Amino Acid Start: 03-24-2025 carbidopa-levodopa CR (SINEMET CR) 25-100 mg per tablet Indications: Parkinson's disease with dyskinesia and fluctuating manifestations (HCC) Take 3 pills at bedtime. 270 tablet 3 03/24/2025 Active Start: 02-03-2021 End: 09-11-2025 take 3 tablets by mouth three times daily carbidopa-levodopa (SINEMET 25-100) 25-100 mg per tablet Indications: Parkinson's disease with dyskinesia and fluctuating manifestations (HCC) Take 3 tablets by mouth three times a day. 810 tablet 3 09/11/2024 09/11/2025 Active Comment on above: Take 3 tablets by mo [facility] three times daily. TAKE 3 TABLETS 3 GUSTAVO ES A DAY cholecalciferol 0.025 mg oral tablet (20 sources) Vitamin D Start: 02-04-20 take 1 tablet by mouth twice daily Cholecalciferol (Vitamin D3) 25 mcg (1,000 unit) tablet Active 2000 U PO TWICE A DAY February 03, 2021 8:49am SUPP Start: 05-29-2019 End: 02-03-2021 take 1 tablet [...] 2 tablets by mo ut once daily. clopidogrel 75 mg oral tablet (16 sources) P2Y12 Platelet Inhibitor Start: 01-19-2025 End: 03-24-2025 take 1 tablet by mouth once daily clopidogrel (PLAVIX) 75 mg tablet Take 1 tablet by mouth once daily. 90 tablet 1 02/23/2025 Active SENOKOT-S (6 sources) Start: 02-19-2024 Senokot S Dose = [...] above: Take 1 tablet by filemon th twice daily for 7 days. ezetimibe 10 mg oral tablet (20 sources) Dietary Cholesterol Absorption Inhibitor Start: 07-13-2024 End: 08-31-2024 take 1 tablet by mouth once daily Ezetimibe 10 mg tablet Active 10 mg PO DAILY March 25, 2025 12:00am Start: 10-31-2023 End: 07-10-2024 take 1 tablet [...] 1 tablet by filemon th once daily. famotidine 20 mg oral tablet (1 source) Histamine-2 Receptor Antagonist Start: 02-19-20 Pepcid 20 mg oral tablet Dose : 20 mg = 1 tab(s), Oral, qDay, # 30 tab(s), 0 Refill(s), Pharmacy: [facility]/pharmacy #[id number], 170.2, cm, 02/18/24 17:02:00 EDT, Height, kg, 02/18/24 17:02:00 EDT, Dosing Weight Start Date: 02/19/24 Status: Ordered finasteride 5 mg oral tablet (2 sources) 5-alpha Reductase Inhibitor Start: 02-24-20 take 1 tablet by mouth at bedtime Finasteride 5 mg tablet Active 5 mg PO AT BEDTIME March 25, 2025 12:00am Fish Oils (3 sources) Start: 01-27-20 Fish Oil 1000 mg oral capsule Dose : 1,000 mg = 1 cap(s), Oral, qDay, # 90 cap(s), 0 Refill(s) Start Date: 01/27/24 Status: Ordered fluticasone propionate 0.05 mg/actuat metered dose nasal spray (20 sources) Corticosteroid Start: 05-29-20 End: 02-04-20 Fluticasone Propionate (Allergy Relief (Fluticasone)) 50 mcg/actuation spray,suspension Active 1 NMA INTRANASAL DAILY as needed for nasal congestion February 03, 2021 8:50am Start: 06-20-2018 End: 02-26-2025 take 1 spray(s) by mouth once daily fluticasone (FLONASE) 50 mcg/actuation nasal spray Use 1 spray in each nostril once daily. Rinse mouth after use. 1 each 5 02/26/2025 02/26/2025 Discontinued Comment on above: Use 1 Howard in each nostril once daily. Rinse mouth after use. levothyroxine sodium 0.025 mg oral tablet (20 sources) l-Thyroxine Start: 01-27-2024 Synthroid 25 mcg (0.025 mg) oral tablet Dose : 25 mcg = 1 tab(s), Oral, qDayAC, 0 Refill(s) Start Date: 01/27/24 Status: Ordered Start: 02-03-2021 End: 11-02-2024 take 1 tablet by mouth once daily for thyroid dysfunction levothyroxine (SYNTHROID) 25 mcg tablet Take 1 tablet by mouth once daily. Take on empty stomach. For thyroid. 90 tablet 1 11/02/2024 Active Comment on above: Take 1 tablet by filemon once daily. Take on empty stomach. For thyroid. mometasone furoate 1 mg/ml topical cream (5 sources) Corticosteroid Start: 12-25-2022 End: 12-04-2023 mometasone (ELOCON) 0.1 % cream Apply to areas twice a day. On for 4 days and off for 3 days. Repeat as needed. 15 g 1 12/25/2022 12/04/2023 Active Comment on above: Apply to areas twice a day. On for 4 days and off for 3 days. Repeat as needed. Sfjpdabs-Dqo-Pz-Lycopen -Lutein 1 EACH tablet (5 sources) Start: 05-28-2016 Oikwvmwr-Ziv-Bb-Lycope n-Lutein 1 EACH tablet Active 1 NMA PO DAILY May 28, 2016 12:00am SUPP Start: 05-28-2016 Sfpzndwv-Ftp-Z k-Oqkldic-Zxuuqb 1 EACH tablet Active 1 NMA PO DAILY May 28, 2016 12:00am Multivitamin preparation (3 sources) Start: 01-27-2024 take 1 tablet by mouth once daily Multivitamin Dose = 1 tab(s), Oral, Daily, 0 Refill(s) Start Date: 01/27/24 Status: Ordered multivitamins w-minerals/lut(CENTR UM SILVER TAB) (20 sources) Start: 01-13-2010 multivitamins w-minerals/lut(CENT RUM SILVER TAB) One tablet daily 0 01/13/2010 Active Comment on above: One tablet daily nitroglycerin 0.4 mg sublingual tablet (20 sources) Nitrate Vasodilator Start: 07-03-2021 End: 03-24-2025 Nitroglycerin 0.4 mg tablet, sublingual Discontinued 0 .ROUTE .COMPLEX 25 6 February 25, 2023 8:38am March 24, 2025 9:11am PLACE 1 TABLET UNDER THE TONGUE AND ALLOW TO DISSOLVE EVERY 5 TO 15 MINUTES FOR CHEST PAIN. DO NOT EXCEED 3 DOSES Start: 06-03-2019 End: 07-03-2021 Nitroglycerin 0.4 mg tablet, sublingual Active 0.4 mg SL Q5M as needed for CHEST PAIN March 24, 2025 12:00am PLACE 1 TABLET UNDER THE TONGUE AND ALLOW TO DISSOLVE EVERY 5 TO 15 MINUTES FOR CHEST PAIN. DO NOT EXCEED 3 DOSES Start: 01-26-2017 End: 05-29-2019 Nitroglycerin 0.4 MG tablet Discontinued 0.4 mg SL Q5M as needed for Chest Pain January 26, 2017 12:00am May 29, 2019 1:59pm Comment on above: Dissolve 1 tablet un gunjan the tongue every 5 minutes as needed. omega-3 fatty acids/vitamin e(FISH OIL 1,000 MG CAP) (20 sources) Start: 0 omega-3 fatty acids/vitamin e(FISH OIL 1,000 MG CAP) one tablet twice daily 0 01/13/2010 Active Comment on above: one tablet twice aliyah ly oxyCODONE hydrochloride 5 mg oral tablet (1 source) Opioid Agonist Start: 4 End: 4 take 1-2 tablets by mouth every four hours as needed for pain oxyCODONE 5 mg oral tablet ( IMMEDIATE release ) See Instructions, PRN as needed for pain, 1-2 tab(s) Oral q4h, # 42 tab(s), 0 Refill(s), 02/26/24 8:43:00 AM EDT, Pharmacy: [facility]/pharmacy #[id number], Status post total left knee replacement, 170.2, cm, 02/18/24 17:02:00 EDT, Height, 88, kg, 02/18/24 17:02:00 EDT, Dosing Weight Start Date: 02/19/24 Stop Date: 02/26/24 Status: Ordered perflutren lipid microspheres 1.3 mL in NaCl (PF) 0.9% 10 mL injection (DEFININRFOOD) (20 sources) Start: End: perflutren lipid microspheres 1.3 mL in NaCl (PF) 0.9% 10 mL injection (DEFINITY) 24 hr propranolol hydrochloride 80 mg extended release oral capsule (19 sources) beta-Adrenergic Parth Start: take 1 capsule by mouth every twenty-four hours Propranolol 80 mg capsule,extended release 24 hr Active 80 mg PO Q24H January 19, 2025 12:00am BP Start: 09-17-2024 End: 03-16-2025 take 1 capsule by mouth once daily propranolol ER (INDERAL LA) 80 mg 24 hr capsule Indications: Tremor TAKE ONE CAPSULE BY MOUTH EVERY DAY 90 capsule 1 03/12/2025 Active rivaroxaban 10 mg oral tablet (1 source) Factor Xa Inhibitor Start: 02-19-2024 Xarelto 10 mg oral tablet Dose : 10 mg = 1 tab(s), Oral, qDay, 1 tablet daily for 2 weeks postoperatively due to past history of DVT, # 13 tab(s), 0 Refill(s), Pharmacy: [facility]/pharmacy #[id number], 170.2, cm, 02/18/24 17:02:00 EDT, Height, 88, kg, 02/18/24 17:02:00 EDT, Dosing Weight Start Date: 02/19/24 Status: Ordered 125 ml sodium chloride 9 mg/ml prefilled syringe (20 sources) Start: 06-24-2023 End: 09-22-2024 sodium chloride 0.9 % (flush) 10 mL (BD POSIFLUSH) tamsulosin hydrochloride 0.4 mg oral capsule (20 sources) alpha-Adrenergi c Parth Start: 04-07-2024 End: 02-26-2025 take 2 capsules by mouth once daily at bedtime tamsulosin (FLOMAX) 0.4 mg Indications: Benign localized prostatic hyperplasia with lower urinary tract symptoms (LUTS) Take 2 capsules by mouth daily at bedtime. 180 capsule 1 02/26/2025 Active Start: 02-10-2024 End: 04-07-2024 take 1 capsule by mouth once daily at bedtime tamsulosin (FLOMAX) 0.4 mg Take 1 capsule by mouth daily at bedtime. 30 capsule 5 02/10/2024 04/07/2024 Discontinued vitamin b12 0.5 mg sublingual tablet (20 [...] tongue once daily. Take 2 tablets by mo [facility] once daily. Vitamin B12 500 mcg [...] Drug Class(es) Dates Sig (Normalized) Sig (Original) clindamycin 150 mg oral capsule (20 sources) Lincosamide Antibacterial Start: 02-03-2021 End: 01-19-2025 take 4 capsules by mouth once as needed Clindamycin Hcl 150 mg capsule Discontinued 600 mg PO ONCE as needed February 03, 2021 12:00am January 19, 2025 4:08am Start: 12-29-2019 clindamycin (C LEOCIN) 150 mg capsule Take 4 tabs 30-60 min before dental procedures. 4 capsule 3 12/29/2019 Active Comment on above: Take 4 tabs 30-60 mi n before dental procedures. furosemide 40 mg oral tablet (20 sources) Loop Diuretic Start: 0 End: 5 take 1 tablet by mouth once daily Furosemide (Lasix) 40 mg tablet Discontinued 40 mg PO DAILY 90 3 August 10, 2021 5:46pm January 19, 2025 4:08am Comment on above: Take 1 tablet by fielmon th once daily. Per cardio 24 hr isosorbide mononitrate 30 mg extended release oral tablet (5 sources) Nitrate Vasodilator Start: 6 End: 9 Isosorbide Mononitrate 30 MG tablet Discontinued 45 mg PO DAILY May 28, 2016 12:00am May 29, 2019 1:59pm meloxicam 15 mg oral tablet (20 sources) Nonsteroidal Anti-inflammatory Drug Start: 3 End: 5 meloxicam (MOBIC) 15 mg tablet once daily. 12/05/2022 02/08/2025 Discontinued (Course of therapy completed) Comment on above: once daily. metoprolol tartrate 50 mg oral tablet (20 sources) beta-Adrenergic Parth Start: 0 End: 5 take 1 tablet by mouth twice daily Metoprolol Tartrate 50 mg tablet Discontinued 50 mg PO TWICE A DAY March 24, 2025 12:00am March 25, 2025 2:06pm BP Start: 06-03-2019 End: 12-22-2019 take 1 tablet [...] above: Take 1 tablet by filemon th twice daily. Take 1 tablet by filemon th two times a day. [place]-3 Fatty Acids-Fish Oil 1 EACH capsule (5 sources) Start: 05-28-2016 End: 01-19-2025 [place]-3 Fatty Acids-Fish Oil 1 EACH capsule Discontinued 1 NMA PO TWICE A DAY May 28, 2016 12:00am January 19, 2025 4:09am Start: 05-28-2016 [place]-3 Fatty Acids-Fish Oil 1 EACH capsule Active 1 NMA PO TWICE A DAY May 28, 2016 12:00am primidone 250 mg oral tablet (15 sources) Anti-epileptic Agent Start: 12-22-2019 End: 02-03-2021 take 1 tablet by mouth at bedtime Primidone 250 mg tablet Discontinued 250 mg PO AT BEDTIME December 22, 2019 12:00am February 03, 2021 8:51am Start: 05-28-2016 End: 12-22-2019 take 1 tablet by mouth at bedtime Primidone 50 mg tablet Discontinued 250 mg PO AT BEDTIME May 29, 2019 2:00pm December 22, 2019 3:12pm traZODone hydrochloride 50 mg oral tablet (20 sources) Serotonin Reuptake Inhibitor Start: 09-11-2024 End: 03-25-2025 take 1 tablet by mouth at bedtime Trazodone 50 mg tablet Discontinued 50 mg PO AT BEDTIME January 19, 2025 12:00am March 25, 2025 2:07pm SLEEP warfarin sodium 10 mg oral tablet (5 sources) Vitamin K Antagonist Start: 05-28-2016 End: 05-29-2019 take 1 tablet by mouth once daily Warfarin 10 MG tablet Discontinued 10 mg PO DAILY May 28, 2016 12:00am May 29, 2019 2:01pm Problems Active Problems Problem Classification Problem Date Documented Da te Episodic/Chronic Complication of device; implant or graft (10 sources) Prosthetic aortic valve regurgitation; Translations: [Other specified complication of cardiac prosthetic devices, implants and grafts, initial encounter] 12-19-2019 Episodic Coronary atherosclerosis and other heart disease (20 sources) Coronary atherosclerosis; Translations: [Atherosclerotic heart disease of [place] coronary artery without angina pectoris] Onset: 08-24-2015 06-22-2019 Chronic Coronary atherosclerosis and other heart disease (1 source) Presence of aortocoronary bypass graft; Translations: [Presence of aortocoronary bypass graft] Onset: 01-20-2025 Episodic Disorders of lipid metabolism (20 sources) Mixed [...] with lower urinary tract symptoms] Onset: 2006 Resolved: 02-08-2025 12-18-2018 Chronic Immunizations and screening for infectious disease (2 sources) Vaccination needed; Translations: [Encounter for immunization] Onset: 02-08-2025 02-08-2025 Episodic Nutritional deficiencies (20 sources) Vitamin D deficiency; Translations: [Vitamin D deficiency, unspecified] Onset: 12-03-2013 11-06-2014 Chronic Occlusion or stenosis of precerebral arteries (20 sources) Bilateral stenosis of carotid arteries; Translations: [Occlusion and stenosis of bilateral carotid arteries] Onset: 10-29-2008 12-07-2020 Chronic Comment on above: LCEA Open wounds of extremities (5 sources) Laceration of finger without foreign body; Translations: [Laceration without foreign body of unspecified finger without damage to nail, initial encounter] 05-29-2019 Episodic Osteoarthritis (20 sources) Arthritis of knee; Translations: [Unilateral primary osteoarthritis, unspecified knee] Onset: 02-10-2024 02-10-2024 Chronic Other aftercare (20 sources) Patient encounter status; Translations: [Other snf (current) drug therapy] Onset: 12-17-2016 Resolved: 01-14-2020 04-12-2020 Episodic Other aftercare (1 source) Other snf (current) drug therapy; Translations: [Medication management] Onset: 02-08-2025 Episodic Other and unspecified benign neoplasm (5 sources) History of polyp of colon; Translations: [History of colonic polyps] 05-11-2020 Episodic Other circulatory disease (12 sources) History of transient ischemic attack; Translations: [Personal history of transient ischemic attack (TIA), and cerebral infarction without residual deficits] Onset: 02-08-2025 02-08-2025 Episodic Other circulatory disease (1 source) Personal history of transient ischemic attack (TIA), and cerebral infarction without residual deficits; Translations: [Hx of transient ischemic attack (TIA)] Onset: 02-08-2025 Episodic Other connective tissue disease (1 source) Artificial knee joint present; Translations: [Presence of left artificial knee joint] Onset: 02-19-2024 Chronic Other connective tissue disease (1 source) Bursitis of olecranon of right elbow; Translations: [Olecranon bursitis, right elbow] Episodic Other connective tissue disease (1 source) Pain in bilateral legs; Translations: [Pain in right leg] 05-07-2024 Episodic Other connective tissue disease (8 sources) Neurological symptom; Translations: [Unspecified symptoms and signs involving the nervous system] 01-19-2025 Episodic Other connective tissue disease (1 source) Unspecified symptoms and signs involving the nervous system; Translations: [Unspecified symptoms and signs involving the nervous system] Onset: 01-20-2025 Episodic Other gastrointestinal disorders (6 sources) Chronic idiopathic constipation; Translations: [Chronic idiopathic constipation] Chronic Other gastrointestinal disorders (1 source) Chronic idiopathic constipation; Translations: [Chronic idiopathic constipation] Onset: 03-24-2025 Chronic Other lower respiratory disease (2 sources) Cough; Translations: [Acute cough] 12-14-2023 Episodic Other lower respiratory disease (2 sources) Abnormal findings on diagnostic imaging of lung; Translations: [Other nonspecific abnormal finding of lung field] 12-31-2023 Episodic Other lower respiratory disease (1 source) Hypoxemia; Translations: [Hypoxemia] Onset: 02-19-2024 Episodic Other lower respiratory disease (5 sources) Dyspnea; Translations: [Dyspnea, unspecified] 01-08-2020 Episodic Other nervous system disorders (1 source) Other chronic pain; Translations: [Chronic bilateral low back pain without sciatica] Onset: 12-02-2024 Chronic Other nervous system disorders (1 source) Slurred speech; Translations: [Slurred speech] Onset: 01-27-2025 Episodic Other nutritional; endocrine; and metabolic disorders (20 sources) Obese class I; Translations: [Obesity, unspecified] Onset: 08-26-2018 12-17-2018 Chronic Other skin disorders (1 source) Eruption; Translations: [Rash and other nonspecific skin eruption] Episodic Other upper respiratory disease (20 sources) Allergic rhinitis; Translations: [Allergic rhinitis, unspecified] Onset: 06-20-2018 12-17-2018 Chronic Other upper respiratory infections (5 sources) Viral upper respiratory tract infection; Translations: [Acute upper respiratory infection, unspecified] Onset: 02-26-2025 Episodic Parkinson`s disease (20 sources) Parkinson's disease; Translations: [...] sleep behavior disorder] Chronic Residual codes; unclassified (4 sources) Insomnia; Translations: [Insomnia, unspecified] 09-11-2023 Episodic Residual codes; unclassified (1 source) Bilateral lower limb edema; Translations: [Localized edema] 05-07-2024 Episodic Residual codes; unclassified (1 source) Insomnia, unspecified; Translations: [Insomnia, unspecified type] Onset: 03-24-2025 Episodic Screening and history of mental health and substance abuse codes (2 sources) Encounter for screening examination for other mental health and behavioral disorders; Translations: [Encounter for screening for depression] Onset: 02-08-2025 Episodic Superficial injury; contusion (5 sources) Contusion of finger; Translations: [Contusion of unspecified finger without damage to nail, initial encounter] 05-29-2019 Episodic Thyroid disorders (20 sources) Acquired hypothyroidism; Translations: [Hypothyroidism, unspecified] Onset: 03-16-2020 04-12-2020 Chronic Unclassified (20 sources) Active living will ; Translations: [Living will on file] Onset: 12-12-2021 12-12-2021 Unclassified (3 sources) At next appointment time Unclassified (1 source) Obesity, Class I, BMI 30-34.9; Translations: [Obesity, Class I, BMI 30-34.9] Onset: 12-17-2018 Unclassified (1 source) Chronic bilateral low back pain without sciatica; Translations: [Chronic bilateral low back pain without sciatica] Onset: 12-02-2024 Past or Other Problems Problem Classification Problem [...] Microscopic hematuria; Translations: [Other microscopic hematuria] Onset: Resolved: 3 01-10-2021 Episodic Joint disorders and dislocations; trauma-related (20 sources) Tear of meniscus of knee; Translations: [Unspecified tear of unspecified meniscus, current injury, unspecified knee, initial encounter] Onset: 6 07-31-2021 Episodic Neoplasms of unspecified nature or uncertain behavior (11 sources) 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; Translations: [Neoplasm of uncertain behavior of bone and articular cartilage] Onset: 6 02-08-2025 Episodic Nutritional deficiencies (20 sources) Cobalamin deficiency; Translations: [Deficiency of other specified B group vitamins] Onset: 5 10-18-2014 Episodic Other circulatory disease (20 sources) H/O: [...] (2 sources) Pain in right leg; Translations: [Bilateral leg pain] Onset: 4 Episodic Other connective tissue disease (1 source) Pain in left leg; Translations: [Bilateral leg pain] Onset: 4 Episodic Other lower respiratory disease (20 sources) Dyspnea on exertion; Translations: [Other forms of dyspnea] Onset: 3 06-24-2023 Episodic Other lower respiratory disease (1 source) Other forms of dyspnea; Translations: [SAUCEDA (dyspnea on exertion)] Onset: 3 Episodic Other male genital disorders (17 sources) [...] elsewhere classified] Onset: 0 12-31-2019 Episodic Other non-traumatic joint disorders (12 sources) Hip pain; Translations: [Pain in right hip] Onset: 5 12-02-2024 Episodic Other upper respiratory disease (20 sources) Seasonal allergy; Translations: [Other seasonal allergic rhinitis] Onset: 7 Resolved: 0 01-14-2020 Chronic Phlebitis; thrombophlebitis and thromboembolism (20 sources) H/O: [...] of malignant neoplasm of digestive organs] Onset: 0 Resolved: 1 07-03-2021 Episodic Residual codes; unclassified (20 sources) Family history of malignant neoplasm of gastrointestinal tract; Translations: [Family history of malignant neoplasm of digestive organs] Resolved: 0 01-14-2020 Episodic Residual codes; unclassified (1 source) Localized edema; Translations: [Bilateral lower extremity edema] Onset: 4 Episodic Spondylosis; intervertebral disc disorders; other back problems (20 sources) Neck pain; Translations: [Cervicalgia] Onset: 9 Resolved: 1 02-22-2011 Episodic Unclassified (5 sources) Tingling and numbness left fingers 05-29-2019 Results Test Name Value Interpretation Reference Range Facility Discharge Instructionon Discharge Instruction [facility] Medical Records Department [address] [place] [address] Instructions for Home/Discharge Instructions 04/07/25 1333 MR#: [id number] Acct: [id number] Name: SONIYA COOLEY Rep #: [id number] : 1940 84 From: Andi Jara MD PCP: Dr. Oniel Francis MD Status:REG SDC Discharge Instructions DC O2, CPAP, BIPAP needs Home O2 Discharge instructions: No Dressing / Incision Discharge Activity: Return to Normal Activity and May Not Drive (while taking narcotic pain medications.) Dressing / Incision Call your doctor if you observe: Fever of 101 or Higher Follow Up Care Please Follow Up With: Andi Jara MD When: Call [phone] for an appointment Test Results: Test results from this visit will be discussed in further detail at your follow-up appointment, if applicable. Discharge Plan Admission Primary Reason for Your Visit: TURP AND BOTOX Attending Provider: Andi Jara Primary Care Provider: Oniel Francis Instructions Print Language: Ugandan Discharge Orders/Prescriptions Prescriptions: Continued acetaminophen 500 mg tablet 1,000 mg PO TID PRN (Reason: fever or pain) fluticasone propionate [Allergy Relief (fluticasone)] 50 mcg/actuation spray,suspension 1 spray INTRANASAL DAILY PRN (Reason: nasal congestion) carbidopa-levodopa 25-100 mg tablet 2 tab PO TID levothyroxine 25 mcg tablet 25 mcg PO DAILY [id number] pen-lutein 1 EACH tablet 1 ea PO DAILY Patient Comments: supplement cyanocobalamin (vitamin B-12) 500 mcg tablet, sublingual 1,000 mcg PO DAILY Patient Comments: supplement cholecalciferol (vitamin D3) 25 mcg (1,000 unit) tablet 2,000 unit PO BID Patient Comments: supplement nitroglycerin 0.4 mg tablet, sublingual 0.4 mg sublingual Q5M PRN (Reason: CHEST PAIN) Rx Instructions: PLACE 1 TABLET UNDER THE TONGUE AND ALLOW TO DISSOLVE EVERY 5 TO 15 MINUTES FOR CHEST PAIN. DO NOT EXCEED 3 DOSES ezetimibe 10 mg tablet 10 mg PO DAILY finasteride 5 mg tablet 5 mg PO QHS atorvastatin 80 mg tablet 80 mg PO QHS propranolol 80 mg capsule,extended release 24 hr 80 mg PO Q24H tamsulosin 0.4 mg capsule 0.8 mg PO QHS Held aspirin 81 mg tablet,chewable 81 mg PO DAILY Hold Instructions: Resume on 04/21/25. Patient Comments: heart [facility] clopidogrel [Plavix] 75 mg tablet 75 mg PO DAILY Hold Instructions: Resume on 04/21/25. Patient Comments: Patient never started after TIA Referrals / Follow Up: Oniel Francis MD [Primary Care Provider] - Andi Jara MD [Med Staff - Active Staff] - Disposition Disposition (needs filled in before D/C Order can be placed): Home, Self Care 04/07/25 1334 Andi Jara MD CC: Dr. Oniel Francis MD Signed [facility] MR/POSTOP.ANEon 04-07-2025 MR/POSTOP.[facility] Medical Records Department [address] [place] [address] Anesthesia Postop Eval I 04/07/25 134 MR#: [id number] Acct: [id number] Name: SONIYA COOLEY Ella Rep #: [id number] : 1940 84 From: Fred Hernandez CRNA PCP: Dr. Oniel Francis MD Status:REG [facility] Y Race: C Location: [place] [address] Anesthesia: Postop Eval I Current Vital Signs Temperature: 97.8 F Pulse Rate: 55 Blood Pressure: 131/72 Respiratory Rate: 16 Pulse Ox: 92 Assessment Airway patent: Yes Spontaneous unlabored respirations: Yes nausea: No Vomiting: No Anesthesia Complication: No Fluid Hydration Crystalloid volume administer (ml): 1,000 Total IV fluid infused: 1,000 Progress Note Anesthesia document: Postop Eval 1 completed: Yes 04/07/251341 Date Fred Hernandez OCEANOGRAPHIC METEOROLOGIST Cosigner Signature: Date CC: Signed [facility] MR/[id number] 04-07-2025 MR/POST[address] Medical Records Department [address] [place] [address] Anesthesia Postop Eval II 04/07/25 1515 MR#: [id number] Acct: [id number] Name: FRANCISCATRACHITOSONIYA L Rep #: [id number] : 1940 84 From: Dario Pires MD PCP: Dr. Oniel Francis MD Status:ADM DARI Y Race: C Location: MS3 [id number] Anesthesia Postop Eval I Sum Postop Eval Completion status Anesthesia document: Postop Eval 1 completed: Yes Anesthesia Postop Eval I Summary Anesthesia Postop Eval I Summary: Anesthesia Postop Eval I: Assessment Summary Airway patent Yes 04/07/25 13:42 OCEANOGRAPHIC METEOROLOGIST.TNES Spontaneous unlabored Yes 04/07/25 13:42 OCEANOGRAPHIC METEOROLOGIST.TNES respirations Mental status nausea No 04/07/25 13:42 OCEANOGRAPHIC METEOROLOGIST.TNES Vomiting No 04/07/25 13:42 OCEANOGRAPHIC METEOROLOGIST.TNES Anesthesia Postop Eval I: Fluid Summary Crystalloid volume administer 1,000 04/07/25 13:42 OCEANOGRAPHIC METEOROLOGIST.TNES (ml) Colloids volume administered ( ml) Blood Product volume administered (ml) Total IV fluid infused 1,000 04/07/25 13:42 OCEANOGRAPHIC METEOROLOGIST.TNES Anesthesia Postop Eval I: Summary Notes Anesthesia Complication No 04/07/25 13:42 OCEANOGRAPHIC METEOROLOGIST.TNES Anesthesia Complication Comment: Post-operative progress note Anesthesia: Postop Eval II Evaluation Mental status: Awake Pain Level: 0 nausea: No Vomiting: No Complications Anesthesia Complication: No 04/07/25 1515 Date Dario Pires MD Cosigner Signature: Date CC: Signed Normal [facility] Operative Reporton 5 Operative Report [facility] Medical Records Department [address] [place] [address] Operative Report 04/07/25 1334 MR#: [id number] Acct: [id number] Name: SONIYA COOLEY Rep #: [id number] : 1940 84 From: Andi Jara MD PCP: Dr. Oniel Francis MD Status:REG [facility] Location: [place] [id number] Operative Report (Standard) Operative Information Date of Procedure: 04/07/25 Pre-Operative Diagnosis: BPH with obstruction and overactive bladder urge incontinence Post-Operative Diagnosis: Same Surgery/Procedure Performed: Cystoscopy injection of Botox in the bladder and transurethral section of prostate travel assistant: No Type of Anesthesia: General RN Documented Start/Stop Times: Operation Date: 04/07/25 12:00 Case Time Into Pre-Op 04/07/25 09:57 Anesthesia Start 04/07/25 12:40 Into Room 04/07/25 12:40 Out of Pre-Op 04/07/25 12:40 Procedure Start 04/07/25 13:00 Procedure End 04/07/25 13:28 Into Recovery Procedure Start Time: 13:00 Procedure Stop Time: 13:28 Select all DRAINS/GRAFTS/IMPLAN TS that apply: Drains Drain details: 22 Kazakh three-way Estimated Blood Loss: 10 cc Specimen collected: Yes Description of specimen(s) removed: prostate tissue Description of surgery: Indication this is an 84-year-old male who has Parkinson's multiple medical problems who has frequency and urgency and bladder control problems on cystoscopy was found to have a significantly obstructive prostate causing blockage but he also has underlying Parkinson's and overactive bladder so today organ to try to treat both conditions again given Botox injection of the bladder 100 units discomfort on the bladder and will resect also the prostate open to help with bladder emptying hopefully this will improve his bladder symptoms and improve his bladder emptying and cut down his frequency the patient understands no guarantees of surgery or the procedure will help him and his and his problems with bladder control and frequency and urgency also that the risk of Inc. urinary incontinence and leakage and problems getting worse. This is explained to the patient the preoperative area he did express understanding and organ to proceed today Patient was taken back to the operating OptiSmooth duction of general anesthesia he was placed in dorsolithotomy position went in the bladder with a 21 Kazakh rigid cystourethroscope, 100 units of Botox prepared in the back table we then with the cystoscope he had a short but very obstructive prostate lateral lobes mostly a lot of tissue obstructing from the left lateral lobe of the prostate I then used a Botox needle and injected 10 sites about 1 cc per site for a total of 100 units to the back of the bladder the goal of this was to decrease bladder contractility so that his frequency and urgency will calm down. I then switched over to the resectoscope and using a median loop and used a 24 Kazakh 9 continuous-flow resectoscope identified the prostate identified obstructing tissue left and right uteruses were identified and then proceeded with the resection resected the prostate completely resect the prostate laterally and then resected back to the verumontanum but I made sure I did not over resect and nature of plenty of tissue around the sphincter area so the patient would hopefully not have any bladder control problems look like a good resection wide open tissue but enough tissue in the sphincter area that hopefully have good control of his bladder. Cauterized extensively to get hemostasis but a catheter in and then for the catheter and continuous bladder irrigation patient was taken back to the PACU in stable condition. Surgical Findings: Very obstructive prostate resected open Complications Complications: No Admit VTE Documentation VTE Present on Admission: No VTE Mechan Device Prophylaxis: SCD's VTE Pharm Prophylaxis ordered?: No 04/07/25 2136 Cosigner Signature (if applicable): CC: Dr. Oniel Francis MD; Dr. Andi Jara MD Signed Normal [facility] 03-24-2025 [facility] Telephone (Godengo[facility]) SONIYA COOLEY ([id number]) 1940 M Date Time Provider Department 03/24/25 [facility] During your visit today, we recorded the following information about you: Michelle Herring RN 03/24/2025 9:56 AM Signed James from [facility] PAT calls and is requesting lab results, last cardiology office visit note, and EKG results to be faxed to [phone]. Information faxed as requested. Michelle Herring RN Allergies As of Date: 03/24/2025 Noted Allergy Reaction IODINE 10/09/2002 14 - Other: See Comments Comments: ?decreased BP with iodinated contrast during a cardiac cath. Pt reports he was told by the white goods appliance tech that they almost lost him due to his reaction and was allergic reaction. The patient reports taking 13 hour allergy premedications in the past with Iodinated contrast without experiencing any breakthrough reaction. PENICILLIN G 10/09/2002 4 - Hives Date Reviewed: 02/26/2025 Reviewed by: Ml Connelly MA - Fully Assessed Reason for Visit: Faxed Information [Other] Prescriptions as of 03/24/2025 - propranolol ER (INDERAL LA) 80 mg 24 hr capsule TAKE ONE CAPSULE BY MOUTH EVERY DAY - tamsulosin (FLOMAX) 0.4 mg Take 2 capsules by mouth daily at bedtime. - clopidogrel (PLAVIX) 75 mg tablet Take 1 tablet by mouth once daily. - traZODone (DESYREL) 50 mg tablet TAKE 1 TABLET BY MOUTH AT BEDTIME - atorvastatin (LIPITOR) 80 mg tablet Take 1 tablet by mouth once daily. - levothyroxine (SYNTHROID) 25 mcg tablet Take 1 tablet by mouth once daily. Take on empty stomach. For thyroid. - carbidopa-levodopa (SINEMET 25-100) 25-100 mg per tablet Take 3 tablets by mouth three times a day. - ezetimibe (ZETIA) 10 mg tablet Take 1 tablet by mouth once daily. - cyanocobalamin, vitamin B-12, 500 [...] 8 hours as needed for Pain. - Cholecalciferol, Vitamin D3, 2,000 unit cap Take 2 tablets by mouth once daily. - omega-3 fatty acids/vitamin e(FISH OIL 1,000 MG CAP) one tablet twice daily - multivitamins w-minerals/lut(CENTR UM SILVER TAB) One tablet daily Meds Comments as of 11/04/2018: 11/04/18 The medications are managed by this patient by: PATIENT and SPOUSE Rhea Emery Pharm-T Problem List As Of Date 03/24/2025 Noted Resolved Aortic valve disorder [I35.9] 10/09/2002 01/14/2020 Mixed hyperlipidemia [E78.2] 10/09/2002 History of rheumatic heart disease [Z86.79] 10/09/2002 Aortic valve replaced [Z95.2] 11/13/2005 Benign localized prostatic hyperplasia with low*2006 02/08/2025 Postsurgical aortocoronary bypass status [Z95.1]2006 Abnormal involuntary movements [R25.8, R25.9] 12/16/2007 02/28/2012 Cervicalgia [M54.2] 10/22/2008 02/22/2011 Carotid stenosis, asymptomatic, bilateral [I65.*10/29/2008 Family history of colon cancer [Z80.0] 01/31/2010 07/03/2021 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/01/2013 Vitamin D deficiency [E55.9] 12/03/2013 B12 deficiency [E53.8] 10/18/2014 Nocturnal hypoxemia [G47.34] 07/26/2015 Sleep disorder [G47.9] 07/26/2015 Coronary 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[place]*08/24/2015 Meniscus tear [S83.209A] 12/27/2015 Elevated hemoglobin A1c [R73.09] 06/19/2016 Seasonal allergies [J30.2] 12/17/2016 01/14/2020 Medicare [...] [R80.8] 01/10/2021 12/25/2022 Living will on file [LMN5603] 12/12/2021 Advance directive discussed with patient [Z71.8*12/12/2021 SAUCEDA (dyspnea on exertion) [R06.09] 06/24/2023 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 Normal [facility] MR/PAT.Lauren 03-24-2025 MR/PAT.[facility] Medical Records Department [address] [place] [address] PAT - Anesthesia 03/24/252018 MR#: [id number] Acct: [id number] Name: SONIYA COOLEY Rep #: [id number] : 1940 84 From: Francis Rene MD PCP: Dr. 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 When Was Last Pacemaker Check QUESTION #4 FULL TEXT: You/Your Family Experience fever (hyperthermia) with Anesthesia Last Oral Intake Last Oral intake: Last Oral Intake NPO since Meds taken in AM with sips of water? 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 Female No 03/24/25 09:11 HX of Motion Sickness No 03/24/25 09:11 HX of N/V After Surgery No 03/24/25 09:11 Non-Smoker Yes 03/24/25 09:11 Duration of Surgery greater Yes 03/24/25 09:11 than 60 minutes Number of Risk Factors 2 03/24/25 09:11 PONV Score Moderate Risk 03/24/25 09:11 Height Weight Height Weight: Anesthesia: Height Weight Height 5 ft 7 in 01/19/25 16:08 Respiratory Assessment Respiratory Assessment - metalworker: Respiratory Tract Infection Hx - metalworker Hx Respiratory Tract Infection No 03/24/25 09:11 STOP Sleep Apnea STOP Sleep Apnea - metalworker: STOP Sleep Apnea - metalworker Hx Hypertension Yes 03/24/25 09:11 Hx Sleep Apnea No 03/24/25 09:11 CPAP BIPAP Do you snore loudly (louder Yes 03/24/25 09:11 than talking or can be heard Do you often feel tired/ No 03/24/25 09:11 fatigued/ sleepy during daytime? Has anyone observed you stop No 03/24/25 09:11 breathing during sleep? STOP Results Positive 03/24/25 09:11 QUESTION #5 FULL TEXT : Do you snore loudly (louder than talking or can be heard through closed doors)? 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 Specify any problems Hx of Preganancy in last 3 N/A 03/24/25 09:11 Months Nurse Filling Out Transfusion [email or web address] 03/24/25 09:11 Questions: Date: 03/24/25 03/24/25 09:11 Time: 09:17 03/24/25 09:11 Patient unable to answer at this time (ie. confused, unrespo /Reproducti on History /Reproducti ve History - metalworker: /Reproducti ve Hx- metalworker Hx Now Gestational Age (in weeks): EDC: Hx Hx Para Hx Section SAB PFSH Medical History (Updated 03/24/25 @ :25 by James Landis) Thyroid disease History of steroid therapy Back pain TIA (transient ischemic attack) History of edema History of Holter monitoring History of echocardiogram History of stress test Cardiology follow-up encounter Parkinson's disease Stroke-like symptoms Parkinson disease Family history of malignant neoplasm of colon in mother Personal history of colonic polyps Essential tremor Aortic prosthetic valve regurgitation Deep vein thrombophlebitis of right leg Obesity Left carotid artery stenosis Prosthetic aortic valve stenosis Central sleep apnea Nonrheumatic aortic (valve) insufficiency Bicuspid aortic valve Vitamin D deficiency History of rheumatic fever Hyperlipidemia History of carotid artery disease Atherosclerosis of coronary artery of [place] heart without angina pectoris Essential hypertension Contusion of finger without damage to nail Lacerati (more content not included)... Normal [facility] 02-26-2025 [facility] Office Visit ([facility]) SONIYA COOLEY ([id number]) 1940 M Date Time Provider Department 02/26/25 8:30 AM LETI RODRIGUEZ During your visit today, we recorded the following information about you: Temperature Pulse Respiration Blood pressure 97.7 degrees 61/minute 20/minute 98/70 Weight 89.6 kg Leti Rodriguez PA-C 02/26/2025 8:37 AM Signed [facility] Subjective Soniya Cooley is a 84 year old male. Patient presents with: Rhinitis: Covid test Patient is an 84-year-old male who arrives for testing for COVID-19. Patient reports that he attended the of his sister several days ago with a large number of people that were in attendance. Patient states he developed mild congestion over the past 1 to 2 days. Patient denies fever, chills, myalgia, sinus pressure, sore throat, cough or other illness symptoms. Patient states he otherwise is feeling in good health. Patient has received a COVID-19 vaccine. Review of Systems HENT: Positive for congestion. All other systems reviewed and are negative. Objective BP 98/70 Pulse 61 Temp 36.5 ?C (97.7 ?F) Resp 20 Wt 89.6 kg (197 lb 8.5 oz) SpO2 95% BMI 32.37 kg/m? Physical Exam Vitals and nursing note reviewed. Constitutional: Appearance: Normal appearance. He is normal weight. HENT: Head: Normocephalic and atraumatic. Right Ear: Tympanic membrane, ear canal and external ear normal. Left Ear: Tympanic membrane, ear canal and external ear normal. Nose: Nose normal. Mouth/Throat: Mouth: Mucous membranes are moist. Pharynx: Oropharynx is clear. Eyes: Extraocular Movements: Extraocular movements intact. Conjunctiva/sclera: Conjunctivae normal. Pupils: Pupils are equal, round, and reactive to light. Cardiovascular: Rate and Rhythm: Normal rate and regular rhythm. Pulses: Normal pulses. Heart sounds: Normal heart sounds. Pulmonary: Effort: Pulmonary effort is normal. Breath sounds: Normal breath sounds. Musculoskeletal: Cervical back: Normal range of motion and neck supple. Skin: General: Skin is warm and dry. Capillary Refill: Capillary refill takes less than 2 seconds. Neurological: General: No focal deficit present. Mental Status: He is alert and oriented to person, place, and time. Psychiatric: Mood and Affect: Mood normal. Behavior: Behavior normal. Thought Content: Thought content normal. Judgment: Judgment normal. MDM Unremarkable physical exam findings as noted above. Influenza A/B/SARS-CoV-2/RSV PCR was ordered and the patient was advised that results will be available tomorrow. Supportive care was discussed and the patient and his verbalize excellent understanding of same. CLINICAL IMPRESSION: Acute URI; Covid-19 Testing ASSESSMENT/PLAN: 1. Acute URI - ICD9: 465.9, ICD10: J06.9 - COVID AND INFLUENZA A/B AND RSV PCR, ROUTINE [facility] Amount and/or Complexity of Data Reviewed Clinical lab tests: ordered Risk of Complications, Morbidity, and/or Mortality Presenting problems: low Diagnostic procedures: low Management options: je Rodriguez PA-C Allergies As of Date: 02/26/2025 Noted Allergy Reaction IODINE 10/09/2002 14 - Other: See Comments Comments: ?decreased BP with iodinated contrast during a cardiac cath. Pt reports he was told by the white goods appliance tech that they almost lost him due to his reaction and was allergic reaction. The patient reports taking 13 hour allergy premedications in the past with Iodinated contrast without experiencing any breakthrough reaction. PENICILLIN G 10/09/2002 4 - Hives Date Reviewed: 02/26/2025 Reviewed by: Ml Connelly MA - Fully Assessed Reason for Visit: Rhinitis [369] Cmt: Covid test Primary Visit Diagnosis:Acute URI [J06.9] Order(s):COVID AND INFLUENZA A/B AND RSV PCR, ROUTINE [[id number]] Order #: [id number]. #:[id number] Prescriptions as of 02/26/2025 - tamsulosin (FLOMAX) 0.4 mg Take 2 capsules by mouth daily at bedtime. - clopidogrel (PLAVIX) 75 mg tablet Take 1 tablet by mouth once daily. - traZODone (DESYREL) 50 mg tablet TAKE 1 TABLET BY MOUTH AT BEDTIME - atorvastatin (LIPITOR) 80 mg tablet Take 1 tablet by mouth once daily. - levothyroxine (SYNTHROID) 25 mcg tablet Take 1 tablet by mouth once daily. Take on empty stomach. For thyroid. - propranolol ER (INDERAL LA) 80 mg 24 hr capsule Take 1 capsule by mouth once daily. - carbidopa-levodopa (SINEMET 25-100) 25-100 mg per tablet Take 3 tablets by mouth three times a day. - ezetimibe (ZETIA) 10 mg tablet Take 1 tablet by mouth once daily. - cyanocobalamin, vitamin B-12, 500 mcg ODT Take 2 tablets by mouth once daily. - nitroglycerin sublingual (NITROQUICK) 0.4 mg SL tablet Dissolve 1 tablet under the tongue every 5 minutes as needed. - clindamycin (CLEOCIN) 150 mg capsule Take 4 tabs 30-60 min before dental procedures. - (more content not included)... Normal [facility] SONIYA COOLEY ([id number]) 1940 M Date Time Provider Department 02/26/25 LETI RODRIGUEZ [facility] During your visit today, we recorded the following information about you: Stacy Varghese RN 02/26/2025 3:04 PM Signed Patient had urgent care visit this morning with Leti HAAS.and is calling to ask when the Paxlovid prescription is going to be sent to [facility]. He reports extremely runny nose and feels warm to touch but thermometer isn't working and is reading 94.3. Noted orders for Covid Testing. Don't seen any results back. Patient reports he was told he would have them back by now. Let him know I would pass the message along. Stacy Varghese RN Allergies As of Date: 02/26/2025 Noted Allergy Reaction IODINE 10/09/2002 14 - Other: See Comments Comments: ?decreased BP with iodinated contrast during a cardiac cath. Pt reports he was told by the white goods appliance tech that they almost lost him due to his reaction and was allergic reaction. The patient reports taking 13 hour allergy premedications in the past with Iodinated contrast without experiencing any breakthrough reaction. PENICILLIN G 10/09/2002 4 - Hives Date Reviewed: 02/26/2025 Reviewed by: Ml Connelly MA - Fully Assessed Reason for Visit: Patient Question [2618] Prescriptions as of 03/02/2025 - tamsulosin (FLOMAX) 0.4 mg Take 2 capsules by mouth daily at bedtime. - clopidogrel (PLAVIX) 75 mg tablet Take 1 tablet by mouth once daily. - traZODone (DESYREL) 50 mg tablet TAKE 1 TABLET BY MOUTH AT BEDTIME - atorvastatin (LIPITOR) 80 mg tablet Take 1 tablet by mouth once daily. - levothyroxine (SYNTHROID) 25 mcg tablet Take 1 tablet by mouth once daily. Take on empty stomach. For thyroid. - propranolol ER (INDERAL LA) 80 mg 24 hr capsule Take 1 capsule by mouth once daily. - carbidopa-levodopa (SINEMET 25-100) 25-100 mg per tablet Take 3 tablets by mouth three times a day. - ezetimibe (ZETIA) 10 mg tablet Take 1 tablet by mouth once daily. - cyanocobalamin, vitamin B-12, 500 [...] 8 hours as needed for Pain. - Cholecalciferol, Vitamin D3, 2,000 unit cap Take 2 tablets by mouth once daily. - omega-3 fatty acids/vitamin e(FISH OIL 1,000 MG CAP) one tablet twice daily - multivitamins w-minerals/lut(CENTR UM SILVER TAB) One tablet daily Meds Comments as of 11/04/2018: 11/04/18 The medications are managed by this patient by: PATIENT and SPOUSE Rhea Emery Pharm-T Problem List As Of Date 02/26/2025 Noted Resolved Aortic valve disorder [I35.9] 10/09/2002 01/14/2020 Mixed hyperlipidemia [E78.2] 10/09/2002 History of rheumatic heart disease [Z86.79] 10/09/2002 Aortic valve replaced [Z95.2] 11/13/2005 Benign localized prostatic hyperplasia with low*2006 02/08/2025 Postsurgical aortocoronary bypass status [Z95.1]2006 Abnormal involuntary movements [R25.8, R25.9] 12/16/2007 02/28/2012 Cervicalgia [M54.2] 10/22/2008 02/22/2011 Carotid stenosis, asymptomatic, bilateral [I65.*10/29/2008 Family history of colon cancer [Z80.0] 01/31/2010 07/03/2021 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/01/2013 Vitamin D deficiency [E55.9] 12/03/2013 B12 deficiency [E53.8] 10/18/2014 Nocturnal hypoxemia [G47.34] 07/26/2015 Sleep disorder [G47.9] 07/26/2015 Coronary 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[place]*08/24/2015 Meniscus tear [S83.209A] 12/27/2015 Elevated hemoglobin A1c [R73.09] 06/19/2016 Seasonal allergies [J30.2] 12/17/2016 01/14/2020 Medicare [...] cardiovascular examination [Z01.8*04/12/2020 Microscopic hematuria [R31.29] 01/10/2021 Othe (more content not included)... Normal [facility] (OUTSIDE)on 02-23-2025 [facility] PSA,Total- Diagnosticon 02-03 PSA, DIAGNOSTIC 1.18 ng/mL Normal 0.00-4.00 [facility] Comment on above: Result Comment: This test was performed using the [employer] tPSA method. Measured values of a patient??sample can vary depending on the testing procedure used. PSA values determined on patient samples by different testing procedures cannot be used interchangeably. If there is a change in PSA assays while monitoring therapy, sequential testing should be performed to confirm baseline values. Performed By: #### L [phone] ####[facility] [id number] [place], [address] [facility] Telephone ([facility]) SONIYA COOLEY ([id number]) 1940 M Date Time Provider Department 02/19/25 ONIEL FRANCIS [facility] During your visit today, we recorded the following information about you: Oniel Francis MD 02/19/2025 5:48 PM Signed Let patient know that the halter monitor he wore after being in [facility] for TIA is showing runs of supraventricular tachycardia and that there were two short runs of V-tach. I want him to continue the plavix but would also like for him to see his white goods appliance tech Dr. Mackey for further eval. (I included Dr. Mackey to see if he can help facilitate an appt.) The 14 day halter was done through [facility] and will be scanned into chart. Roshni Aranda, RN 02/22/2025 12:49 PM Signed Pt's called and is notified of providers results and instructions. She voices understanding. Please call Pt and try and schedule an earlier appointment that May [address] Mackey. Pt's reports he has an appointment coming up with his back doctor where he put the needles in his back, he was asking if this would be ok for him to do. I told her I would need to ask provider. The patient has been identified by name and date of : Yes Caregiver verified no other encounters exist for this prescription request: Yes Caregiver confirmed with patient/requestor that no other refills are due, in the near future, with this provider at this time: Yes The last office visit in the department: 02/08/2025 Does the patient have a future office visit with this provider/department: Yes 02/09/2026 Requested Prescriptions Pending Prescriptions Disp Refills clopidogrel (PLAVIX) 75 mg tablet 90 tablet 1 Sig: Take 1 tablet by mouth once daily. oRshni Aranda RN February 22, 2025 12:48 PM Kenney Gonzalez MD 02/23/2025 2:53 PM Signed With their recent TIA I would be hesitant to stop their antiplatelet medications for at least 3 months. Are they able to do the injections while he is still taking Plavix? Monalisa Arreola RN 02/24/2025 9:18 AM Signed Left vm for pt to return call to triage nurse, for provider message. 's mailbox is full Stacy Varghese RN 02/24/2025 10:55 AM Signed Spouse returns call and message below reviewed. She reports that patient hasn't been taking Plavix and will restart once receives from pharmacy. Reports he is scheduled for injection tomorrow with Dr. Lynn and they plan to do that one as he hasn't been on Plavix and will discuss further injections at appt tomorrow. NORA Carvalho Christopher B, MD 02/24/2025 11:00 AM Signed Reviewed. Will forward to PCP as CHIARA. Zoe Madrid RN 02/25/2025 2:39 PM Signed Patient scheduled to see Dr. Mackey 03/01/25. Zoe Madrid RN Allergies As of Date: 02/19/2025 Noted Allergy Reaction IODINE 10/09/2002 14 - Other: See Comments Comments: ?decreased BP with iodinated contrast during a cardiac cath. Pt reports he was told by the white goods appliance tech that they almost lost him due to his reaction and was allergic reaction. The patient reports taking 13 hour allergy premedications in the past with Iodinated contrast without experiencing any breakthrough reaction. PENICILLIN G 10/09/2002 4 - Hives Date Reviewed: 02/08/2025 Reviewed by: Oniel Francis MD - Fully Assessed Reason for Visit: Results [95] Appointment [186] Order(s):clopidogrel (PLAVIX) 75 mg tabletTake 1 tablet by mouth once daily.Disp: 90 tabletRfl: 1 Prescriptions as of 02/25/2025 - clopidogrel (PLAVIX) 75 mg tablet Take 1 tablet by mouth once daily. - traZODone (DESYREL) 50 mg tablet TAKE 1 TABLET BY MOUTH AT BEDTIME - atorvastatin (LIPITOR) 80 mg tablet Take 1 tablet by mouth once daily. - levothyroxine (SYNTHROID) 25 mcg tablet Take 1 tablet by mouth once daily. Take on empty stomach. For thyroid. - propranolol ER (INDERAL LA) 80 mg 24 hr capsule Take 1 capsule by mouth once daily. - carbidopa-levodopa (SINEMET 25-100) 25-100 mg per tablet Take 3 tablets by mouth three times a day. - ezetimibe (ZETIA) 10 mg tablet Take 1 tablet by mouth once daily. - tamsulosin (FLOMAX) 0.4 mg TAKE 2 CAPSULES BY MOUTH DAILY AT BEDTIME. - cyanocobalamin, vitamin B-12, 500 mcg ODT [...] (FLONASE) 50 mcg/actuation nasal spray Use 1 Howard in each nostril once daily. Rinse mouth after use. - Cholecalciferol, Vitamin D3, 2,000 unit cap Take 2 tablets by (more content not included)... Normal [facility] 25(OH)D3 [facility]am 2024 25-hydroxyvitamin D3 [Mass/Vol] 53.1 ng/mL Normal 31.0-80.0 [facility] Comment on above: Order Comment: Speci men Type: BLOOD SPECIMENOrdering Facility: [facility] Address: [address] [place] [address] Result Comment: Clas sification of 25 [place] Vitamin D status: Deficiency/Insufficiency: < or = 30 ng/ml. Sufficiency/Optimal Levels: 31-80 ng/mL Toxicity: > 100 ng/mL. Test performed by chemiluminescent immunoassay. Performed By: #### 9 5941-1 #### [facility] CLIA [id number] [address] [place] [address] [place] CBC W Auto Differential pane l (Bld)on 02-08-2025 Basophils (Bld) [#/Vol] 0.06 10*3/uL Normal <0.11 [facility] Comment on above: Order Comment: Speci men Type: BLOOD SPECIMENOrdering Facility: [facility] Address: [address] [place] [address] Performed By: #### 9 5941-1 #### [facility] CLIA [id number] [address] [place] [address] [place] Basophils/100 WBC (Bld) 0.9 % Normal [facility] Comment on above: Order Comment: Speci men Type: BLOOD SPECIMENOrdering Facility: [facility] Address: [address] [place] [address] Performed By: #### 9 5941-1 #### [facility] CLIA [id number] [address] [place] [address] [place] Differential cell count method Nom (Bld) Auto Normal [facility] Comment on above: Order Comment: Speci men Type: BLOOD SPECIMENOrdering Facility: [facility] Address: [address] [place] [address] Performed By: #### 9 5941-1 #### [facility] CLIA [id number] [address] [place] [address] [place] Eosinophils (Bld) [#/Vol] 0.35 10*3/uL Normal <0.46 [facility] Comment on above: Order Comment: Speci men Type: BLOOD SPECIMENOrdering Facility: [facility] Address: [address] [place] [address] Performed By: #### 9 5941-1 #### [facility] CLIA [id number] [address] [place] [address] [place] Eosinophils/100 WBC (Bld) 5.3 % Normal [facility] Comment on above: Order Comment: Speci men Type: BLOOD SPECIMENOrdering Facility: [facility] Address: [address] [place] [address] Performed By: #### 9 5941-1 #### [facility] CLIA [id number] [address] [place] [address] [place] Erythrocyte distribution width (RBC) [Ratio] 13.3 % Normal 11.5-15.0 [facility] Comment on above: Order Comment: Speci men Type: BLOOD SPECIMENOrdering Facility: [facility] Address: [address] [place] [address] Performed By: #### 9 5941-1 #### [facility] CLIA [id number] [address] [place] [address] [place] Hematocrit (Bld) [Volume fraction] 43.1 % Normal 39.0-51.0 [facility] Comment on above: Order Comment: Speci men Type: BLOOD SPECIMENOrdering Facility: [facility] Address: [address] [place] [address] Performed By: #### 9 5941-1 #### [facility] CLIA [id number] [address] [place] [address] [place] Hemoglobin (Bld) [Mass/Vol] 14.5 g/dL Normal 13.0-17.0 [facility] Comment on above: Order Comment: Speci men Type: BLOOD SPECIMENOrdering Facility: [facility] Address: [address] [place] [address] Performed By: #### 9 5941-1 #### [facility] CLIA [id number] [address] [place] [address] [place] Immature granulocytes (Bld) [#/Vol] 10*3/uL Normal <0.10 [facility] Comment on above: Order Comment: Speci men Type: BLOOD SPECIMENOrdering Facility: [facility] Address: [address] [place] [address] Performed By: #### 9 5941-1 #### [facility] CLIA [id number] [address] [place] [address] [place] Immature granulocytes/100 WBC (Bld) 0.2 % Normal [facility] Comment on above: Order Comment: Speci men Type: BLOOD SPECIMENOrdering Facility: [facility] Address: [address] [place] [address] Performed By: #### 9 5941-1 #### [facility] CLIA [id number] [address] [place] [address] [place] Lymphocytes (Bld) [#/Vol] 2.24 10*3/uL Normal 1.00-4.00 [facility] Comment on above: Order Comment: Speci men Type: BLOOD SPECIMENOrdering Facility: [facility] Address: [address] [place] [address] Performed By: #### 9 5941-1 #### [facility] CLIA [id number] [address] [place] [address] [place] Lymphocytes/100 WBC (Bld) 33.9 % Normal [facility] Comment on above: Order Comment: Speci men Type: BLOOD SPECIMENOrdering Facility: [facility] Address: [address] [place] [address] Performed By: #### 9 5941-1 #### [facility] CLIA [id number] [address] [place] [address] [place] MCH (RBC) [Entitic mass] 33.3 pg Normal 26.0-34.0 [facility] Comment on above: Order Comment: Speci men Type: BLOOD SPECIMENOrdering Facility: [facility] Address: [address] [place] [address] Performed By: #### 9 5941-1 #### [facility] CLIA [id number] [address] [place] [address] [place] MCHC (RBC) [Mass/Vol] 33.6 g/dL Normal 30.5-36.0 [facility] Comment on above: Order Comment: Speci men Type: BLOOD SPECIMENOrdering Facility: [facility] Address: [address] [place] [address] Performed By: #### 9 5941-1 #### [facility] CLIA [id number] [address] [place] [address] [place] MCV (RBC) [Entitic vol] 99.1 fL Normal 80.0-100.0 [facility] Comment on above: Order Comment: Speci men Type: BLOOD SPECIMENOrdering Facility: [facility] Address: [address] [place] [address] Performed By: #### 9 5941-1 #### [facility] CLIA [id number] [address] [place] [address] [place] Monocytes (Bld) [#/Vol] 0.71 10*3/uL Normal <0.87 [facility] Comment on above: Order Comment: Speci men Type: BLOOD SPECIMENOrdering Facility: [facility] Address: [address] [place] [address] Performed By: #### 9 5941-1 #### [facility] CLIA [id number] [address] [place] [address] [place] Monocytes/100 WBC (Bld) 10.8 % Normal [facility] Comment on above: Order Comment: Speci men Type: BLOOD SPECIMENOrdering Facility: [facility] Address: [address] [place] [address] Performed By: #### 9 5941-1 #### [facility] CLIA [id number] [address] [place] [address] [place] Neutrophils (Bld) [#/Vol] 3.23 10*3/uL Normal 1.45-7.50 [facility] Comment on above: Order Comment: Speci men Type: BLOOD SPECIMENOrdering Facility: [facility] Address: [address] [place] [address] Performed By: #### 9 5941-1 #### [facility] CLIA [id number] [address] [place] [address] [place] Neutrophils/100 WBC (Bld) 48.9 % Normal [facility] Comment on above: Order Comment: Speci men Type: BLOOD SPECIMENOrdering Facility: [facility] Address: [address] [place] [address] Performed By: #### 9 5941-1 #### [facility] CLIA [id number] [address] [place] [address] [place] Nucleated RBC (Bld) [#/Vol] 10*3/uL Normal <0.01 [facility] Comment on above: Order Comment: Speci men Type: BLOOD SPECIMENOrdering Facility: [facility] Address: [address] [place] [address] Performed By: #### 9 5941-1 #### [facility] CLIA [id number] [address] [place] [address] [place] Nucleated RBC/100 WBC (Bld) [Ratio] 0.0 /100 WBC Normal [facility] Comment on above: Order Comment: Speci men Type: BLOOD SPECIMENOrdering Facility: [facility] Address: [address] [place] [address] Performed By: #### 9 5941-1 #### [facility] CLIA [id number] [address] [place] [address] [place] Platelet mean volume (Bld) [Entitic vol] 12.0 fL Normal 9.0-12.7 [facility] Comment on above: Order Comment: Speci men Type: BLOOD SPECIMENOrdering Facility: [facility] Address: [address] [place] [address] Performed By: #### 9 5941-1 #### [facility] CLIA [id number] [address] [place] [address] [place] Platelets (Bld) [#/Vol] 149 10*3/uL Low 150-400 [facility] Comment on above: Order Comment: Speci men Type: BLOOD SPECIMENOrdering Facility: [facility] Address: [address] [place] [address] Performed By: #### 9 5941-1 #### [facility] CLIA [id number] [address] [place] [address] [place] RBC (Bld) [#/Vol] 4.35 10*6/uL Normal 4.20-6.00 [facility] Comment on above: Order Comment: Speci men Type: BLOOD SPECIMENOrdering Facility: [facility] Address: [address] [place] [address] Performed By: #### 9 5941-1 #### [facility] CLIA [id number] [address] [place] [address] [place] WBC (Bld) [#/Vol] 6.60 10*3/uL Normal 3.70-11.00 [facility] Comment on above: Order Comment: Speci men Type: BLOOD SPECIMENOrdering Facility: [facility] Address: [address] [place] [address] Performed By: #### 9 5941-1 #### [facility] CLIA [id number] [address] [place] [address] [facility] CNOVon 02-08-2025 CNOV Office Visit (FAMPWS) SONIYA COOLEY ([id number]) 1940 M Date Time Provider Department 02/08/25 8:00 AM ONIEL FRANCIS During your visit today, we recorded the following information about you: Pulse Respiration Blood pressure Weight 60/minute 18/minute 92/64 90.8 kg Height 1.664 m Oniel Francis MD 02/08/2025 9:20 PM Signed Soniyajanet Cooley is a 84 year old male here for a Medicare wellness visit. Medicare Health Risk Assessment General Health Fair Exercise: Minutes/Day 30 min Exercise: Days/Week 1 day Alcohol: Daily Use Monthly or less Alcohol: Drinks/Day 1 or 2 Alcohol: 6 or more drinks Never Feel off balance Yes Concerns: Teeth/Dentures No Concerns: Sexual function No Troubled by feelings None of the above Frequency: Eating healthy diet Several days ADLs requiring help Walking Safety precautions in home/vehicle No (No grab bar in the bathroom, rugs in home) Smoke, vape, chews tobacco No Difficulty hearing No Difficulty seeing No Current Providers Specialists: I have reviewed specialist-related care of the patient in the medical record. Medical/Family history review Reviewed and updated problem list, medical/surgical/fam gerson/social history, medications, and allergies. Opioid use review Opioid Medications (last 90 days) No data to display Anxiety/Depression screening PHQ-2 Score: 0 (Lower risk for depression) ANA CRISTINA-2 Score: 0 (Lower risk for anxiety) Recommendation: no further intervention at this time Cognitive screening Mini Cog Score: 2 Cognitive screening reviewed, received 3-5. Mini-Cog Patient asked to remember the following three words: Banana, [place] and Chair Visuospatial/Executi ve Functioning: Clock drawin/2 (Normal clock with all number in correct sequence and position, hands are correct = 2 points, inability or refusal to draw a clock = 0) Three word recall: 2/3 Total score: 3/5 (Total score = word recall score + clock draw score) Functional Observation Was the patient's Timed Up AND Go test unsteady or >= 12 seconds? no Advance Care Planning Surrogate decision maker and/or advance care plan documented Measurements BP 92/64 (BP Site: Right Arm, BP Position: Sitting, BP Cuff Size: Large Adult) Pulse 60 Resp 18 Ht 166.4 cm (5' 5.5) Wt 90.8 kg (200 lb 3.2 oz) BMI 32.81 kg/m? Vision Screening: Follows with optometry/ophthalmol ogy Assessment/Plan Medicare annual wellness visit, subsequent (Z00.00) - Counseled on healthy diet and regular exercise - Fall avoidance information provided - Personalized prevention plan provided See below Chief Complaint Patient presents with: Medicare Wellness Exam HPI Soniya Cooley is a 84 year old male who presents here today for a follow up and Medicare Wellness. Patient with hx CAD, HTN, hyperlipidemia, Parkinson's Disease, B12 deficiency, BPH, hypothyroid, and those as below. Patient recently in [facility] for TIA. Placed on plavix. Ordered event monitor. Patient has this on currently. Is taking the plavix. Omero is currently wearing a Holter monitor and is taking Plavix, but is no longer on Coumadin. He is also taking a baby aspirin. He reports difficulty getting up and out of chairs, sometimes requiring multiple attempts or assistance, but does not believe he needs a walker. He does not have a lift chair. Omero had a knee replacement about a year ago and has been receiving pain management for back and hip pain, including injections, with another injection planned due to insufficient relief from the first. Omero had cataract surgery over a year ago and is experiencing vision changes, noting that the results were not as good as expected. He has an upcoming appointment with an offshore wind operations manager in [place]. He reports stable dyspnea, but denies hemoptysis, chest pain, or palpitations. Omero had a TIA with symptoms of general weakness adn slurred speach, which had fully resolved by the time he presented to the ER. Extensive testing at the hospital did not identify a cause. He was advised not to drive until seen by his neurologist, but he drove to today's appointment. He denies nausea, emesis, diarrhea, heartburn, hematuria, or hematochezia. Omero reports nocturia every hour, which disrupts his sleep, and does not find Flomax helpful. He has an upcoming appointment with a urologist. Omero had a couple of skin lesions removed recently and sees a stakes player annually for skin checks. He denies unexplained bruising, changes in heat or cold tolerance, increased thirst, syncope, or seizures. He experiences stable tremors due to Parkinson's disease. Omero is taking multiple medications, including atorvastatin, vitamin D, B12, ezetimibe, Flonase, levothyroxine, a multivitamin, fish oil, tamsulosin, trazodone, and propranolol. He reports that trazodone dose not seem to (more content not included)... Normal [facility] Comprehensive metabolic 2000 panelon 02-08-2025 Albumin [Mass/Vol] 4.4 g/dL Normal 3.9-4.9 [facility] Comment on above: Order Comment: Speci men Type: BLOOD SPECIMENOrdering Facility: [facility] Address: [address] [place] [address] Performed By: #### 9 5941-1 #### [facility] CLIA [id number] [address] [place] [address] [place] ALP [Catalytic activity/Vol] 87 U/L Normal 38-113 [facility] Comment on above: Order Comment: Speci men Type: BLOOD SPECIMENOrdering Facility: [facility] Address: [address] [place] [address] Performed By: #### 9 5941-1 #### [facility] CLIA [id number] [address] [place] [address] [place] ALT [Catalytic activity/Vol] 36 U/L Normal 10-54 [facility] Comment on above: Order Comment: Speci men Type: BLOOD SPECIMENOrdering Facility: [facility] Address: [address] [place] [address] Performed By: #### 9 5941-1 #### [facility] CLIA [id number] [address] [place] [address] [place] Anion gap [Moles/Vol] 11 mmol/L Normal 8-15 [facility] Comment on above: Order Comment: Speci men Type: BLOOD SPECIMENOrdering Facility: [facility] Address: [address] [place] [address] Performed By: #### 9 5941-1 #### [facility] CLIA [id number] [address] [place] [address] [place] AST [Catalytic activity/Vol] 36 U/L Normal 14-40 [facility] Comment on above: Order Comment: Speci men Type: BLOOD SPECIMENOrdering Facility: [facility] Address: [address] [place] [address] Performed By: #### 9 5941-1 #### [facility] CLIA [id number] [address] [place] [address] [place] Bilirubin [Mass/Vol] 0.8 mg/dL Normal 0.2-1.3 [facility] Comment on above: Order Comment: Speci men Type: BLOOD SPECIMENOrdering Facility: [facility] Address: [address] [place] [address] Performed By: #### 9 5941-1 #### [facility] CLIA [id number] [address] [place] [address] [place] Calcium [Mass/Vol] 9.6 mg/dL Normal 8.5-10.2 [facility] Comment on above: Order Comment: Speci men Type: BLOOD SPECIMENOrdering Facility: [facility] Address: [address] [place] [address] Performed By: #### 9 5941-1 #### [facility] CLIA [id number] [address] [place], [place] [address] [place] Chloride [Moles/Vol] 104 mmol/L Normal 98-107 [facility] Comment on above: Order Comment: Speci men Type: BLOOD SPECIMENOrdering Facility: [facility] Address: [address] [place] [address] Performed By: #### 9 5941-1 #### [facility] CLIA [id number] [address] [place] [address] [place] CO2 [Moles/Vol] 25 mmol/L Normal 22-30 [facility] Comment on above: Order Comment: Speci men Type: BLOOD SPECIMENOrdering Facility: [facility] Address: [address] [place] [address] Performed By: #### 9 5941-1 #### [facility] CLIA [id number] [address] [place] [address] [place] Creatinine [Mass/Vol] 0.80 mg/dL Normal 0.73-1.22 [facility] Comment on above: Order Comment: Speci men Type: BLOOD SPECIMENOrdering Facility: [facility] Address: [address] [place] [address] Performed By: #### 9 5941-1 #### [facility] CLIA [id number] [address] [place] [address] [place] Creatinine and Glomerular filtration rate.predicted panel (S/P/Bld) 88 mL/min/1.73m??? Normal >=60 [facility] Comment on above: Order Comment: Speci men Type: BLOOD SPECIMENOrdering Facility: [facility] Address: [address] [place] [address] Result Comment: Janae mated Glomerular Filtration Rate [...] accurately reflect actual GFR. Performed By: #### 9 5941-1 #### [facility] CLIA [id number] [address] [place] [address] [place] Glucose [Mass/Vol] 117 mg/dL High 74-99 [facility] Comment on above: Order Comment: Speci men Type: BLOOD SPECIMENOrdering Facility: [facility] Address: [address] [place] [address] Result Comment: The [place] Diabetes Association (ADA) provides guidance for cutoff [...] Standards of Medical Care in Diabetes 2016, [place] [employer] Association. Diabetes Care. 2016.39(Suppl 1). Performed By: #### 9 5941-1 #### [facility] CLIA [id number] [address] [place] [address] [place] Potassium [Moles/Vol] 4.4 mmol/L Normal 3.7-5.1 [facility] Comment on above: Order Comment: Speci men Type: BLOOD SPECIMENOrdering Facility: [facility] Address: [address] [place] [address] Performed By: #### 9 5941-1 #### [facility] CLIA [id number] [address] [place] [address] [place] Protein [Mass/Vol] 7.0 g/dL Normal 6.3-8.0 [facility] Comment on above: Order Comment: Speci men Type: BLOOD SPECIMENOrdering Facility: [facility] Address: [address] [place] [address] Performed By: #### 9 5941-1 #### [facility] CLIA [id number] [address] [place] [address] [place] Sodium [Moles/Vol] 140 mmol/L Normal 136-144 [facility] Comment on above: Order Comment: Myles gottlieb Type: BLOOD SPECIMENOrdering Facility: [facility] Address: [address] [place] [address] Performed By: #### 9 5941-1 #### [facility] CLIA [id number] [address] [place] [address] [place] Urea nitrogen [Mass/Vol] 21 mg/dL Normal 9-24 [facility] Comment on above: Order Comment: Murphyi men Type: BLOOD SPECIMENOrdering Facility: [facility] Address: [address] [place] [address] Performed By: #### 9 5941-1 #### [facility] CLIA [id number] [address] [place] [address] [place] HbA1c (Bld)on 02-08-2025 Average glucose Estimated from glycated hemoglobin (Bld) [Mass/Vol] 140 mg/dL Normal [facility] Comment on above: Order Comment: Myles gottlieb Type: BLOOD SPECIMENOrdering Facility: [facility] Address: [address] [place] [address] Result Comment: eAG: (Estimated average glucose) is a calculated value from HgbA1c and is provider service representative of the average blood glucose level in the last 2-3 month period. Performed By: #### 5 5454-3 ####[facility] LABCLIA [id number] [place] [address] [place] HbA1c (Bld) [Mass fraction] 6.5 % High 4.3-5.6 [facility] Comment on above: Order Comment: Myles gottlieb Type: BLOOD SPECIMENOrdering Facility: [facility] Address: [address] [place] [address] Result Comment: [place] Diabetes Association guidelines indicate that patients with HgbA1c in the range 5.7-6.4% are at increased risk for development of diabetes, and intervention by lifestyle modification may be beneficial. HgbA1c greater or equal to 6.5% is considered diagnostic of diabetes. Performed By: #### 5 5454-3 ####[facility] LABCLIA [id number] [address] OF [facility] LIPID PANEL, NONFASTINGon Cholesterol [Mass/Vol] 116 mg/dL Normal <200 [facility] Comment on above: Order Comment: Speci men Type: BLOOD SPECIMENOrdering Facility: [facility] Address: [address] [place] [address] Result Comment: <200 mg/dL, Desirable 200-239 mg/dL, Borderline high >239 mg/dL, High Performed By: #### 9 5941-1 #### [facility] CLIA [id number] [address] [place] [address] HDL CHOLESTEROL, NF 46 mg/dL Normal >39 [facility] Comment on above: Order Comment: Speci [facility] Type: BLOOD SPECIMENOrdering Facility: [facility] Address: [address] [place] [address] Result Comment: 40-5 9 mg/dL, Acceptable >59 mg/dL, High: Negative risk factor for coronary heart disease <40 mg/dL, Low: Positive risk factor for coronary heart disease Performed By: #### 9 5941-1 #### [facility] CLIA [id number] [address] [place] [address] LDL CHOLESTEROL CALCULATED, NF 52 mg/dL Normal <100 [facility] Comment on above: Order Comment: Speci men Type: BLOOD SPECIMENOrdering Facility: [facility] Address: [address] [place] [address] Result Comment: <100 mg/dL, Optimal 100-129 mg/dL, Near optimal/above optimal 130-159 mg/dL, Borderline high 160-189 mg/dL, High >189 mg/dL, Very high Secondary prevention optimal LDL Cholesterol levels are recommended to be <70 mg/dL LDL cholesterol is calculated using the Uribe-NIH equation. Performed By: #### 9 5941-1 #### [facility] CLIA [id number] [address] [place] [address] [place] LDL/HDL RATIO, NF 1.13 mg/dL Normal <2.54 [facility] Comment on above: Order Comment: Speci men Type: BLOOD SPECIMENOrdering Facility: [facility] Address: [address] [place] [address] Result Comment: Refe rence: 1. National Cholesterol Education Program ATP III Guideline At-A-Glance Quick Desk Reference: National Heart, Lung, and Blood [place]. National Institutes of Health. 2001: NIH Publication No. 01-3305. 2. An International Atherosclerosis Society position paper: global recommendations for the management of dyslipidemia: executive summary, Atherosclerosis. 2014: 232(2):410-413. Performed By: #### 9 5941-1 #### [facility] [place] [id number] [address] [place] [address] [place] NON HDL CHOL, NF 70 mg/dL Normal <130 [facility] Comment on above: Order Comment: Speci men Type: BLOOD SPECIMENOrdering Facility: [facility] Address: [address] [place] [address] Result Comment: <130 mg/dL, Optimal 130-159 mg/dL, Near optimal/above optimal 160-189 mg/dL, Borderline high 190-219 mg/dL, High >219 mg/dL, Very high Secondary prevention optimal non HDL Cholesterol levels are recommended to be <100 mg/dL Performed By: #### 9 5941-1 #### [facility] CLIA [id number] [address] [place] [address] [place] T CHOL/HDL RATIO NF 2.52 mg/dL Normal <5.10 [facility] Comment on above: Order Comment: Speci men Type: BLOOD SPECIMENOrdering Facility: [facility] Address: [address] [place] [address] Performed By: #### 9 5941-1 #### [facility] CLIA [id number] [address] [place] [address] [place] TRIGLYCERIDES, NF 94 mg/dL Normal <150 [facility] Comment on above: Order Comment: Speci men Type: BLOOD SPECIMENOrdering Facility: [facility] Address: [address] [place] [address] Result Comment: <150 mg/dL, Normal 150-199 mg/dL, Borderline high 200-499 mg/dL, High >499 mg/dL, Very high Performed By: #### 9 5941-1 #### [facility] CLIA [id number] [address] [place] [address] [place] VLDL CHOLESTEROL, NF 13 mg/dL Normal <30 [facility] Comment on above: Order Comment: Speci men Type: BLOOD SPECIMENOrdering Facility: [facility] Address: [address] [place] [address] Performed By: #### 9 5941-1 #### [facility] CLIA [id number] [address] [place] [address] [place] TSH SerPl-aCncon 02-08-2025 TSH Qn 1.680 m[IU]/L Normal 0.270-4.200 [facility] Comment on above: Order Comment: Speci men Type: BLOOD SPECIMENOrdering Facility: [facility] Address: [address] [place] [address] Performed By: #### 9 5941-1 #### [facility] CLIA [id number] [address] [place] [address] [place] Urinalysis complete panel (U )on 02-08-2025 Bacteria LM.HPF (Urine sed) [#/Area] Negative Normal Negative [facility] Comment on above: Order Comment: Speci men Type: URINE SPECIMENOrdering Facility: [facility] Address: [address] [place] [address] Performed By: #### 9 5941-1 #### [facility] CLIA [id number] [id number] [address] [place] Bilirubin Ql (U) Negative Normal Negative [facility] Comment on above: Order Comment: Speci men Type: URINE SPECIMENOrdering Facility: [facility] Address: [address] [place] [address] Performed By: #### 9 5941-1 #### [facility] CLIA [id number] [address] [place] [address] [place] Clarity (Unsp spec) Clear Normal Clear [facility] Comment on above: Order Comment: Speci men Type: URINE SPECIMENOrdering Facility: [facility] Address: [address] [place] [address] Performed By: #### 9 5941-1 #### [facility] CLIA [id number] [address] [place] [address] [place] Color (U) Dark Yellow Abnormal Yellow [facility] Comment on above: Order Comment: Speci men Type: URINE SPECIMENOrdering Facility: [facility] Address: [address] [place] [address] Performed By: #### 9 5941-1 #### [facility] CLIA [id number] [address] [place] [address] [place] Epithelial cells LM.HPF (Urine sed) [#/Area] None Seen Normal [facility] Comment on above: Order Comment: Speci men Type: URINE SPECIMENOrdering Facility: [facility] Address: [address] [place] [address] Performed By: #### 9 5941-1 #### [facility] CLIA [id number] [address] [place] [address] [place] Glucose Test strip (U) [Mass/Vol] Negative Normal Negative [facility] Comment on above: Order Comment: Speci men Type: URINE SPECIMENOrdering Facility: [facility] Address: [address] [place] [address] Performed By: #### 9 5941-1 #### [facility] CLIA [id number] [address] [place] [address] [place] Hemoglobin Ql (U) Negative Normal Negative [facility] Comment on above: Order Comment: Speci men Type: URINE SPECIMENOrdering Facility: [facility] Address: [address] [place] [address] Performed By: #### 9 5941-1 #### [facility] CLIA [id number] [address] [place] [address] [place] Hyaline casts (Urine sed) [#/Area] 0 /[LPF] Normal 0 /LPF [facility] Comment on above: Order Comment: Speci men Type: URINE SPECIMENOrdering Facility: [facility] Address: [address] [place] [address] Performed By: #### 9 5941-1 #### [facility] CLIA [id number] [address] [place] [address] [place] Ketones Ql (U) Trace Abnormal Negative [facility] Comment on above: Order Comment: Speci men Type: URINE SPECIMENOrdering Facility: [facility] Address: [address] [place] [address] Performed By: #### 9 5941-1 #### [facility] CLIA [id number] [address] [place] [address] [place] Leukocyte esterase Test strip Ql (U) Negative Normal Negative [facility] Comment on above: Order Comment: Speci men Type: URINE SPECIMENOrdering Facility: [facility] Address: [address] [place] [address] Performed By: #### 9 5941-1 #### [facility] CLIA [id number] [address] [place] [address] [place] Nitrite Ql (U) Negative Normal Negative [facility] Comment on above: Order Comment: Speci men Type: URINE SPECIMENOrdering Facility: [facility] Address: [address] [place] [address] Performed By: #### 9 5941-1 #### [facility] CLIA [id number] [address] [place] [address] [place] pH (U) 6.0 [pH] Normal <8.5 [facility] Comment on above: Order Comment: Speci men Type: URINE SPECIMENOrdering Facility: [facility] Address: [address] [place] [address] Performed By: #### 9 5941-1 #### [facility] CLIA [id number] [address] [place] [address] [place] Protein (U) [Mass/Vol] Trace Abnormal Negative [facility] Comment on above: Order Comment: Speci men Type: URINE SPECIMENOrdering Facility: [facility] Address: [address] [place] [address] Performed By: #### 9 5941-1 #### [facility] CLIA [id number] [address] [place] [address] [place] RBC LM.HPF (Urine sed) [#/Area] 0-2 /HPF Normal 0-2 /HPF [facility] Comment on above: Order Comment: Speci men Type: URINE SPECIMENOrdering Facility: [facility] Address: [address] [place] [address] Performed By: #### 9 5941-1 #### [facility] CLIA [id number] [address] [place] [address] [place] Specific gravity (U) [Rel density] 1.025 Normal 1.005-1.030 [facility] Comment on above: Order Comment: Speci men Type: URINE SPECIMENOrdering Facility: [facility] Address: [address] [place] [address] Performed By: #### 9 5941-1 #### [facility] CLIA [id number] [address] [place] [address] [place] Urobilinogen Ql (U) 0.2 EU/dL Normal 0.2-1.0 EU/dL [facility] Comment on above: Order Comment: Speci men Type: URINE SPECIMENOrdering Facility: [facility] Address: [address] [place] [address] Performed By: #### 9 5941-1 #### [facility] CLIA [id number] [address] [place] [address] [place] WBC LM.HPF (Urine sed) [#/Area] 0-5 /HPF Normal 0-5 /HPF [facility] Comment on above: Order Comment: Speci men Type: URINE SPECIMENOrdering Facility: [facility] Address: [address] [place] [address] Performed By: #### 9 5941-1 #### [facility] CLIA [id number] [address] [place] [address] [place] Vit B12 [facility] 02-08- 025 Cobalamin (Vitamin B12) [Mass/Vol] 942 pg/mL Normal 232-1245 [facility] Comment on above: Order Comment: Speci men Type: BLOOD SPECIMENOrdering Facility: [facility] Address: [address] [place] [address] Performed By: #### 9 5941-1 #### [facility] CLIA [id number] [address] [place] [address] [place] Bedside Glucoseon 01-27-2025 FINGERSTICK GLU 136 mg/dL High 74-106 [facility] Comment on above: Result Comment: MICHAEL GEMENT OF PATIENT CARE PER NURSING PROTOCOL Performed By: #### L 501.080 ####[facility] [address] [place], [address] CBC W/Diff, Automatedon 01-03 Absolute Neut Normal 2.0-7.7 [facility] Comment on above: Result Comment: Canc elled via OM: Order cancelled - Patient discharged Performed By: #### L 500.4100, L100.0100 ####[facility] [address] [place], [address] HCT Normal 40-54 [facility] Comment on above: Result Comment: Canc elled via OM: Order cancelled - Patient discharged Performed By: #### L 500.4100, L100.0100 ####[facility] [address] [place], [address] HGB Normal 13.0-16.5 [facility] Comment on above: Result Comment: Canc elled via OM: Order cancelled - Patient discharged Performed By: #### L 500.4100, L100.0100 ####[facility] [address] [place], [address] MCH Normal 27.0-32.0 [facility] Comment on above: Result Comment: Canc elled via OM: Order cancelled - Patient discharged Performed By: #### L 500.4100, L100.0100 ####[facility] [address] [place], [address] MCHC Normal 32-36 [facility] Comment on above: Result Comment: Canc elled via OM: Order cancelled - Patient discharged Performed By: #### L 500.4100, L100.0100 ####[facility] [address] [place], [address] MCV Normal 80-94 [facility] Comment on above: Result Comment: Canc elled via OM: Order cancelled - Patient discharged Performed By: #### L 500.4100, L100.0100 ####[facility] [address] [place], [address] NEUT% Normal 47-70 [facility] Comment on above: Result Comment: Canc elled via OM: Order cancelled - Patient discharged Performed By: #### L 500.4100, L100.0100 ####[facility] [address] [place], [address] PLT Normal 150-450 [facility] Comment on above: Result Comment: Canc elled via OM: Order cancelled - Patient discharged Performed By: #### L 500.4100, L100.0100 ####[facility] [address] [place], [address] RBC Normal 4.6-6.2 [facility] Comment on above: Result Comment: Canc elled via OM: Order cancelled - Patient discharged Performed By: #### L 500.4100, L100.0100 ####[facility] [address] [place], [address] RDW CV Normal 11.6-14.6 [facility] Comment on above: Result Comment: Canc elled via OM: Order cancelled - Patient discharged Performed By: #### L 500.4100, L100.0100 ####[facility] [address] [place], [address] RDW SD Normal 35.1-43.9 [facility] Comment on above: Result Comment: Canc elled via OM: Order cancelled - Patient discharged Performed By: #### L 500.4100, L100.0100 ####[facility] [address] [place], [address] WBC Normal 4.4-11.0 [facility] Comment on above: Result Comment: Canc elled via OM: Order cancelled - Patient discharged Performed By: #### L 500.4100, L100.0100 ####[facility] [address] [place], [address] Lipid Profileon 01-20-2025 CHOL Normal <=200 [facility] Comment on above: Order Comment: Comme nts: NPO at MN prior to lipid panel Result Comment: Canc elled via OM: Order cancelled - Patient discharged Performed By: #### L 500.4100, L100.0100 ####[facility] [address] [place], [address] CHOL:HDL Normal [facility] Comment on above: Order Comment: Comme nts: NPO at MN prior to lipid panel Result Comment: Canc elled via OM: Order cancelled - Patient discharged Performed By: #### L 500.4100, L100.0100 ####[facility] [address], [address] CLDL Normal [facility] Comment on above: Order Comment: Comme nts: NPO at MN prior to lipid panel Result Comment: Canc elled via OM: Order cancelled - Patient discharged Performed By: #### L 500.4100, L100.0100 ####[facility] [address] [place], [address] HDL Normal [facility] Comment on above: Order Comment: Comme nts: NPO at MN prior to lipid panel Result Comment: Canc elled via OM: Order cancelled - Patient discharged Performed By: #### L 500.4100, L100.0100 ####[facility] [address] [place], [address] TRIG Normal [facility] Comment on above: Order Comment: Comme nts: NPO at MN prior to lipid panel Result Comment: Canc elled via OM: Order cancelled - Patient discharged Performed By: #### L 500.4100, L100.0100 ####[facility] [address] [place], [address] VLDL Normal 5-40 [facility] Comment on above: Order Comment: Comme nts: NPO at MN prior to lipid panel Result Comment: Canc elled via OM: Order cancelled - Patient discharged Performed By: #### L 500.4100, L100.0100 ####[facility] [address] [place], [address] 12 Lead EKGon 01-19-2025 12 Lead EKG [facility] Cardiovascular Services [address] [place] [address] 12 Lead EKG 01/19/25 0418 MR#: [id number] Acct: [id number] Name: SONIYA COOLEY Rep #: [id number] : 1940 84 From: Aramis Larson MD Attending Dr: Dr. Leti Lu DO Status: A DM DARI Ordering Dr: Tate Mcdonough DO Date: 01/19/25 Location: U Sex: M C Admitted: 01/19/25 Test Reason : NEURO Blood Pressure : */* mmHG Vent. 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 Oniel Francis MD; Dr. Leti Lu DO; Tate Mcdonough DO Signed Normal [facility] Absolute lymphocyte countOrd ered By: Tate Mcdonough on 01-19-2025 Lymphocytes Auto (Unsp spec) [#/Vol] 3.03 10*3/uL 0.83-4.51 [facility] Absolute neutrophil countOrd ered By: Tate Mcdonough on 01-19-2025 Neutrophils (Bld) [#/Vol] 2.3 10*3/uL 2.0-7.7 [facility] Activated partial thrombopla stin time (aPTT) in platelet poor plasma by coagulation aOrdered By: Tate Mcdonough on 01-19-2025 aPTT Coag (PPP) [Time] 28.5 s 24.1-36.2 [facility] Anion gap in Serum or Plasma Ordered By: Tate Mcdonough on 01-19-2025 Anion gap [Moles/Vol] 12 mmol/L 5-15 [facility] Automated blood erythrocyte countOrdered By: Tate Mcdonough on 01-19-2025 RBC (Bld) [#/Vol] 4.31 10*6/uL Low 4.6-6.2 [facility] Comment on above: Performed By: #### L 300.3900, L300.4310, L100.0100, L500.2500 #### [facility] [address] [place], [address] Automated blood hematocrit ( percentage)Ordered By: Tate Mcdonough on 01-19-2025 Hematocrit (Bld) [Volume fraction] 40.8 % Normal 40-54 [facility] Comment on above: Performed By: #### L 300.3900, L300.4310, L100.0100, L500.2500 #### [facility] [address] [place], [address] Automated lymphocyte count a s percentage of total leukocytesOrdered By: Tate Mcdonough on 01-19-2025 Lymphocytes/100 WBC Auto (Unsp spec) 48.3 % High 19-41 [facility] BUN/creatinine ratioOrdered By: Tate Mcdonough on 01-19-2025 Urea nitrogen/Creatinine [Mass ratio] 27.0 mg/mg High 10-20 [facility] Basic Metabolic Profile (BMP )on 01-19-2025 BUN/CRE 27.0 RATIO High 10-20 [facility] Comment on above: Performed By: #### L 300.3900, L300.4310, L100.0100, L500.2500 #### [facility] [address] [place], [address] ECRCL 68.19 ml/min Normal 50-250 [facility] Comment on above: Performed By: #### L 300.3900, L300.4310, L100.0100, L500.2500 #### [facility] [address] [place], [address] GAP 12 Normal 5-15 [facility] Comment on above: Performed By: #### L 300.3900, L300.4310, L100.0100, L500.2500 #### [facility] [address] [place], [address] Potassium [Moles/Vol] 4.1 mmol/L Normal 3.3-5.1 [facility] Comment on above: Performed By: #### L 300.3900, L300.4310, L100.0100, L500.2500 #### [facility] [address] [place], [address] Basophil percentageOrdered B y: Tate Mcdonough on 01-19-2025 Basophils/100 WBC (Bld) 0.5 % Normal 0-1 [facility] Comment on above: Performed By: #### L 300.3900, L300.4310, L100.0100, L500.2500 #### [facility] [address] [place], [address] Bilirubin Test strip Ql (U)O rdered By: Tate Mcdonough on 01-19-2025 Bilirubin Ql (U) Negative Negative [facility] Brain without Contraston Brain without Contrast [facility] Imaging Services [address] [place] [address] Brain without Contrast MR#: [id number] Acct: [id number] Name: SONIYA COOLEY Rep #: [id number] : 1940 M 84 From: Lucas Monroe MD PCP: Dr. Oniel Francis MD Status: ADM DARI Study: Brain without Contrast Date of Exam: 01/19/25 Exam# [id number] Ordering Dr: Mik Kilgore MD EXAM: BRAIN WITHOUT CONTRAST CLINICAL HISTORY: TIA, slurred speech, bilateral lower extremity weakness COMPARISON: None. TECHNIQUE: Multiplanar, multisequence MR images of the brain were obtained without gadolinium contrast material. FINDINGS: No intracranial hemorrhage, mass, mass effect, midline shift or pathologic extra- axial fluid collection. No hydrocephalus. There is no significant white matter disease.. No areas of restricted diffusion to suggest acute ischemia or infarction. No gradient signal blooming artifacts are identified. No cerebellar tonsillar ectopia. No sellar/suprasellar signal abnormalities. The ocular globes and intraorbital soft tissues are symmetrically unremarkable. Sinus disease is visible in the floor of the right maxillary sinus. There is fluid signal in a portion of the right mastoid air cells, with mastoiditis. MRI/Brain without Contrast IMPRESSION: Sinus disease is visible in the floor of the right maxillary sinus. There is fluid signal in a portion of the right mastoid air cells, with mastoiditis. No acute intracranial abnormality is identified. Reading Location: [facility] CC: Dr. Oniel Francis MD; Dr. Mik Kilgore MD Eeg Technician: Signed Normal [facility] CBC W/Diff, Automatedon - Absolute Lymph 3.03 X10 3/uL Normal 0.83-4.51 [facility] Comment on above: Performed By: #### L 300.3900, L300.4310, L100.0100, L500.2500 #### [facility] [address] [place], [address] Absolute Neut 2.3 X10 3/uL Normal 2.0-7.7 [facility] Comment on above: Performed By: #### L 300.3900, L300.4310, L100.0100, L500.2500 #### [facility] [address] [place], [address] IG% 0.200 Normal 0.0-0.9 [facility] Comment on above: Result Comment: IG% - Immature Granulocytes (promyelocytes, myelocytes and metamyelocytes) > 1% indicates that a LEFT SHIFT is Present. Performed By: #### L 300.3900, L300.4310, L100.0100, L500.2500 #### [facility] [address] [place], [address] Lymphocytes/100 WBC (Bld) 48.3 % High 19-41 [facility] Comment on above: Performed By: #### L 300.3900, L300.4310, L100.0100, L500.2500 #### [facility] [address] [place], [address] Nucleated RBC (Bld) [#/Vol] 0 10*3/uL Normal 0-5 [facility] Comment on above: Performed By: #### L 300.3900, L300.4310, L100.0100, L500.2500 #### [facility] [address] [place], [address] RDW SD 46.3 fl High 35.1-43.9 [facility] Comment on above: Performed By: #### L 300.3900, L300.4310, L100.0100, L500.2500 #### [facility] [address] [place], [address] Carbon dioxide, total [Moles /volume] in Central venous bloodOrdered By: Tate Mcdonough on 01-19-2025 CO2 [Moles/Vol] 23.1 mmol/L Normal 21.0-32.0 [facility] Comment on above: Performed By: #### L 300.3900, L300.4310, L100.0100, L500.2500 #### [facility] [address] [place], [address] Chest 1 Viewon 01-19-2025 Chest 1 View [facility] Imaging Services [address] [place] [address] Chest 1 View MR#: [id number] Acct: [id number] Name: SONIYA COOLEY Rep #: [id number] : 1940 M 84 From: Luis Enrique jung MD PCP: Dr. Oniel Francis MD Status: REG ER Study: Chest 1 View Date of Exam: 01/19/25 Exam# [id number] Ordering Dr: Tate Mcdonough DO PROCEDURE: CHEST 1 VIEW 01/19/2025 REASON FOR EXAM: NEURO DEFICIT, ACUTE, STROKE SUSPECTED TECHNIQUE: Frontal view of the chest. COMPARISON: None. FINDINGS: Unremarkable median sternotomy wires. Mild bilateral basilar atelectatic pulmonary changes. There is no demonstrated pleural abnormality. Enlarged cardiac silhouette. Normal mediastinum and julee. Normal visualized pulmonary arteries. Atheromatous plaques of the visualized aortic arch and descending thoracic aorta. Diffuse spondylosis of the visualized thoracic spine. Normal visualized ribs, clavicles. Degenerative joint disease. There is no demonstrated abnormality of the visualized soft tissue structures of the upper abdomen. RAD/Chest 1 View IMPRESSION: Mild bilateral basilar atelectatic pulmonary changes. Reading Location: [place] [address] CC: Dr. Oniel Francis MD; Tate Mcdonough DO Eeg Technician: Signed Normal [facility] Chloride assayOrdered By: Marjan Mcdonough on 01-19-2025 Chloride [Moles/Vol] 105 mmol/L Normal 98-108 [facility] Comment on above: Performed By: #### L 300.3900, L300.4310, L100.0100, L500.2500 #### [facility] [address] [facility] [place], [address] Discharge Instructionon 01-03 Discharge Instruction [facility] Medical Records Department [address] [place] [address] Instructions for Home/Discharge Instructions 01/19/25 1805 MR#: [id number] Acct: [id number] Name: SONIYA COOLEY Rep #: [id number] : 1940 84 From: Leti Lu DO PCP: Dr. Oniel Francis MD Status:ADM DARI Discharge Instructions Diet Discharge Diet: No restrictions DC O2, CPAP, BIPAP needs Home O2 Discharge instructions: No Dressing / Incision Discharge Activity: Return to Normal Activity Weight Bearing Status: Full weight bearing Follow Up Care Test Results: Test results from this visit will be discussed in further detail at your follow-up appointment, if applicable. Discharge Plan Admission Admit Date/Time: 01/19/25 06:07 Primary Reason for Your Visit: Transient ischemic attack Attending Provider: Leti Lu Primary Care Provider: Oniel Francis Consulting Providers: Mik Kilgore; Graham Gutierrez; Brooklyn Peñaloza; Bianca Jerry; Kavita Glass; Odessa Wray; Matthew Rushing; Yarely Ackerman; Harinder Hill; Jorge Bui; Nando Rosales; Xenia Fournier; Sulaiman Luna; Aleksandra Gonzales; Zoila Maciel; Audi Phillip; Adebayo Valdovinos; Dali Sanchez; Ángel King; Dary Villalta; Tia Mcleod Instructions Additional Instructions / Restrictions: Follow-up as scheduled with your neurologist Discharge Orders/Prescriptions Prescriptions: New clopidogrel [Plavix] 75 mg tablet 75 mg PO DAILY Qty: 21 0RF Rx Instructions: Start on 01/20/2025, take for 21 days then discontinue Continued acetaminophen 500 mg tablet 1,000 mg PO TID PRN (Reason: fever or pain) fluticasone propionate [Allergy Relief (fluticasone)] 50 mcg/actuation spray,suspension 1 spray INTRANASAL DAILY PRN (Reason: nasal congestion) carbidopa-levodopa 25-100 mg tablet 2 tab PO TID levothyroxine 25 mcg tablet 25 mcg PO DAILY grniiuxn-ukg-HI-lyco pen-lutein 1 EACH tablet 1 ea PO DAILY Patient Comments: supplement cyanocobalamin (vitamin B-12) 500 mcg tablet, sublingual 1,000 mcg PO DAILY Patient Comments: supplement aspirin 81 mg tablet,chewable 81 mg PO DAILY Patient Comments: heart health cholecalciferol (vitamin D3) 25 mcg (1,000 unit) tablet 2,000 unit PO BID Patient Comments: supplement atorvastatin 80 mg tablet 80 mg PO QHS propranolol 80 mg capsule,extended release 24 hr 80 mg PO Q24H trazodone 50 mg tablet 50 mg PO QHS tamsulosin 0.4 mg capsule 0.8 mg PO QHS metoprolol tartrate 50 mg tablet See Rx Instructions .ROUTE .COMPLEX Qty: 180 3RF Dose Instruction: TAKE 1 TABLET TWICE A DAY Rx Instructions: TAKE 1 TABLET TWICE A DAY nitroglycerin 0.4 mg tablet, sublingual See Rx Instructions .ROUTE .COMPLEX Qty: 25 6RF Dose Instruction: PLACE 1 TABLET UNDER THE TONGUE AND ALLOW TO DISSOLVE EVERY 5 TO 15 MINUTES FOR CHEST PAIN. DO NOT EXCEED 3 DOSES Rx Instructions: PLACE 1 TABLET UNDER THE TONGUE AND ALLOW TO DISSOLVE EVERY 5 TO 15 MINUTES FOR CHEST PAIN. DO NOT EXCEED 3 DOSES Other Ambulatory Orders: 30 Day Event Recorder Preventi (Urgent) Timeframe: 1 Day Facility: [facility] - Location: Cardiovascular Services Ordered By: Dr. Leti Lu Referrals / Follow Up: Oniel Francis MD [Primary Care Provider] - See Referral Note (At next appointment time) Disposition Disposition (needs filled in before D/C Order can be placed): Home, Self Care 01/19/251811 Leti Lu DO CC: Kavita Glass; Aleksandra Gonzales; Adebayo Valdovinos; Odessa Wray MD; Bianca Jerry MD; Graham Gutierrez MD; Dr. Brooklyn Peñaloza MD; Dr. Matthew Rushing MD; Dr. Yarely Ackerman MD; Dr. Jorge Bui MD; Dr. Harinder Hill MD; Dr. Oniel Francis MD; Dr. Nando Rosales MD; Dr. Sulaiman Carrasquillo DO; Dr. Audi Phillip MD; Dr. Zoila Maciel MD; Dr. Mik Kilgore MD; Dr. Dali Sanchez MD; Dr. Ángel King MD; Dr. Dary Villalta MD; Xenia Fournier DO; Tia Mcleod MD Signed Normal [facility] Echo Complete W/ Contraston 01-19-2025 Echo Complete W/ Contrast [facility] Cardiovascular Services [address] [place] [address] Echo Complete W/ Contrast 01/19/25 1437 MR#: [id number] Acct: [id number] Name: SONIYA COOLEY Rep #: [id number] : 1940 84 From: Aramis Larson MD Attending Dr: Dr. Leti Lu, Status: A DM DARI Ordering Dr: Leti Lu DO Date: 01/19/25 Location: [facility] Sex: M C Admitted: 01/19/25 Reason For Study Reason For Study: TIA/CVA Procedure This was a 2D Doppler, Color Flow transthoracic echocardiogram. Contrast injection was performed. Exam performed portable in patient room. Left Ventricle Normal LV size. The left ventricular ejection fraction is 55 %. Stage 1 diastolic dysfunction. No regional wall motion abnormalities noted. Right Ventricle Normal RV size. Normal systolic function. Atria Normal left atrium. Normal right atrium. Mitral Valve Mild mitral valve prolapse. Mild (1+) eccentric mitral valve insufficiency. Tricuspid Valve Normal tricuspid valve. Mild tricuspid valve insufficiency. Pulmonary artery systolic pressure is 23 mmHg. Aortic Valve Mean aortic valve gradient 5 mmHg. Bioprosthetic aortic valve. Pulmonic Valve Normal pulmonic valve. Great Vessels Mildly dilated aortic root. The pulmonary artery is normal size. Inferior vena cava collapse with respiration. Pericardium/Pleural No pericardial effusion. Medication Diluted definity 3ml given slow IV push to enhance endocardial definition. MMode/2D Measurements Calculations LVIDd: 4.8 cm IVSd: 0.97 cm LVOT diam: 2.1 cm LVIDs: 3.0 cm LVPWd: 1.2 cm RVDd: 4.7 cm FS: 36.8 % LVOT area: 3.5 cm2 asc Aorta Diam: 3.9 cm LAV(MOD-bp): 48.5 ml LVAd ap4: 35.7 cm2 LAV(MOD-bp) Indexed: 23.8 ml/m2 LVLd ap4: 8.0 cm LAV(MOD-sp2): 52.0 ml EDV(MOD-sp4): 124.9 ml LAV(MOD-sp4): 44.9 ml EDV(sp4-el): 135.3 ml LVAs ap4: 22.2 cm2 LVLs ap4: 6.9 cm ESV(MOD-sp4): 58.8 ml ESV(sp4-el): 60.1 ml EF(MOD-sp4): 52.9 % EF(sp4-el): 55.6 % LVAd ap2: 36.5 cm2 SV(MOD-sp4): 66.1 ml SV(MOD-sp2): 62.1 ml LVLd ap2: 8.3 cm SI(MOD-sp4): 32.4 ml/m2 SI(MOD-sp2): 30.4 ml/m2 EDV(MOD-sp2): 130.2 ml EDV(sp2-el): 135.4 ml LVAs ap2: 25.0 cm2 LVLs ap2: 7.5 cm ESV(MOD-sp2): 68.2 ml ESV(sp2-el): 70.3 ml EF(MOD-sp2): 47.7 % SV(sp4-el): 75.2 ml Ao sinus diam: 3.[address] Junction: 2.9 cm LA dimension(2D): 4.6 cm LA A4 area: 17.9 cm2 RA A4 area: 16.0 cm2 TAPSE: 1.4 cm Time Measurements MV dec time: 0.32 sec Doppler Measurements Calculations MV E max kian: 54.9 cm/sec Lat Peak E' Kian: 11.1 cm/sec Med Peak E' Kian: 5.6 cm/sec MV A max kian: 81.9 cm/sec E/E' lat: 5.0 E/E' med: 9.7 MV E/A: 0.67 MV dec slope: 173.9 cm/sec2 Ao V2 max: 148.3 cm/sec LV V1 max: 91.3 cm/sec Ao max P.8 mmHg LV V1 max P.3 mmHg Ao V2 mean: 103.3 cm/sec LV V1 mean P.3 mmHg Ao mean P.8 mmHg LV V1 mean: 74.9 cm/sec Ao V2 VTI: 30.2 cm LV V1 VTI: 18.8 cm AV (velocity ratio): 0.62 VIANEY(I,D): 2.2 cm2 VIANEY(V,D): 2.2 cm2 SV(LVOT): 65.9 ml PA V2 max: 132.7 cm/sec PI end-d kian: 78.6 cm/sec TR max kian: 224.4 cm/sec TR max P.1 mmHg ECHO/Echo Complete W/ Contrast Interpretation Summary The left ventricular ejection fraction is 55 %. Normal LV size. Stage 1 diastolic dysfunction. Pulmonary artery systolic pressure is 23 mmHg. Bioprosthetic aortic valve. Contrast injection was performed. Ordering Physician: Leti Lu Performed By: Suzan Leonard RDCS 01/19/25 1720 Date Aramis Larson MD CC: Dr. Oniel Francis MD; Dr. Leti Lu, DO Date Dictated: 01/19/251436 Date Transcribed: 01/19/25 1720 Eeg Technician: Signed Normal [facility] Echocardiogram study reportO rdered By: Aramis Larson on 01-19-2025 Study report [facility] Cardiovascular Services [address] [place] [address] Echo Complete W/ Contrast 01/19/251436 MR#: [id number] Acct: [id number] Name: SONIYA COOLEY Rep #:[id number] : 1940 84 From: Aramis Calero Attending Dr: Dr. Leti Lu, DO Status: ADM DARI Ordering Dr: Leti Lu DO Date: 01/19/25 Location: [facility] Sex: M C Admitted: 01/19/25 Reason For Study Reason For Study: TIA/CVA Procedure This was a 2D Doppler, Color Flow transthoracic echocardiogram. Contrast injection was performed. Exam performed portable in patient room. Left Ventricle Normal LV size. The left ventricular ejection fraction is 55 %. Stage 1 diastolic dysfunction. No regional wall motion abnormalities noted. Right Ventricle Normal RV size. Normal systolic function. Atria Normal left atrium. Normal right atrium. Mitral Valve Mild mitral valve prolapse. Mild (1+) eccentric mitral valve insufficiency. Tricuspid Valve Normal tricuspid valve. Mild tricuspid valve insufficiency. Pulmonary artery systolic pressure is 23 mmHg. Aortic Valve Mean aortic valve gradient 5 mmHg. Bioprosthetic aortic valve. Pulmonic Valve Normal pulmonic valve. Great Vessels Mildly dilated aortic root. The pulmonary artery is normal size. Inferior vena cava collapse with respiration. Pericardium/Pleural No pericardial effusion. Medication Diluted definity 3ml given slow IV push to enhance endocardial definition. MMode/2D Measurements & Calculations LVIDd: 4.8 cm IVSd: 0.97 cm LVOT diam: 2.1 cm LVIDs: 3.0 cm LVPWd: 1.2 cm RVDd: 4.7 cm FS: 36.8 % LVOT area: 3.5 cm2 asc Aorta Diam: 3.9 cm LAV(MOD-bp): 48.5 ml LVAd ap4: 35.7 cm2 LAV(MOD-bp) Indexed: 23.8 ml/m2 LVLd ap4: 8.0 cm LAV(MOD-sp2): 52.0 ml EDV(MOD-sp4): 124.9 ml LAV(MOD-sp4): 44.9 ml EDV(sp4-el): 135.3 ml LVAs ap4: 22.2 cm2 LVLs ap4: 6.9 cm ESV(MOD-sp4): 58.8 ml ESV(sp4-el): 60.1 ml EF(MOD-sp4): 52.9 % EF(sp4-el): 55.6 % LVAd ap2: 36.5 cm2 SV(MOD-sp4): 66.1 ml SV(MOD-sp2): 62.1 ml LVLd ap2: 8.3 cm SI(MOD-sp4): 32.4 ml/m2 SI(MOD-sp2): 30.4 ml/m2 EDV(MOD-sp2): 130.2 ml EDV(sp2-el): 135.4 ml LVAs ap2: 25.0 cm2 LVLs ap2: 7.5 cm ESV(MOD-sp2): 68.2 ml ESV(sp2-el): 70.3 ml EF(MOD-sp2): 47.7 % SV(sp4-el): 75.2 ml Ao sinus diam: 3.[address] Junction: 2.9 cm LA dimension(2D): 4.6 cm LA A4 area: 17.9 cm2 RA A4 area: 16.0 cm2 _ TAPSE: 1.4 cm Time Measurements MV dec time: 0.32 sec Doppler Measurements & Calculations MV E max kian: 54.9 cm/sec Lat Peak E' Kian: 11.1 cm/sec Med Peak E' Kian: 5.6 cm/sec MV A max kian: 81.9 cm/sec E/E' lat: 5.0 E/E' med: 9.7 MV E/A: 0.67 MV dec slope: 173.9 cm/sec2 Ao V2 max: 148.3 cm/sec LV V1 max: 91.3 cm/sec Ao max P.8 mmHg LV V1 max P.3 mmHg Ao V2 mean: 103.3 cm/sec LV V1 mean P.3 mmHg Ao mean P.8 mmHg LV V1 mean: 74.9 cm/sec Ao V2 VTI: 30.2 cm LV V1 VTI: 18.8 cm AV (velocity ratio): 0.62 VIANEY(I,D): 2.2 cm2 VIANEY(V,D): 2.2 cm2 SV(LVOT): 65.9 ml PA V2 max: 132.7 cm/sec PI end-d kian: 78.6 cm/sec TR max kian: 224.4 cm/sec TR max P.1 mmHg ECHO/Echo Complete W/ Contrast Interpretation Summary The left ventricular ejection fraction is 55 %. Normal LV size. Stage 1 diastolic dysfunction. Pulmonary artery systolic pressure is 23 mmHg. Bioprosthetic aortic valve. Contrast injection was performed. Ordering Physician: Leti Lu Performed By: Suzan Leonard, RDVERENA 01/19/25 1720 Date _ Aramis Larson MD CC: Dr. Oniel Francis MD; Dr. Leti Lu, ~ Date Dictated: 01/19/25 1437 Date Transcribed: 01/19/251719 Eeg Technician: Signed [facility] Work Phone: Electrocardiogram reportOrde red By: Aramis Larson on 01-19-2025 EKG study [facility] Cardiovascular Services [address] [place] [address] 12 Lead EKG 01/19/25 0418 MR#: [id number] Acct: [id number] Name: SONIYA COOLEY Rep #:[id number] : 1940 84 From: Aramis Larson MD Attending Dr: Dr. Leti Lu DO Status: ADM DARI Ordering Dr: Tate Mcdonough DO Date: Location: [facility] Sex: M C Admitted: 01/19/25 Test Reason : NEURO Blood Pressure : */* mmHG Vent. Rate : 71 BPM Atrial Rate : 71 BPM P-R Int : 196 ms QRS Dur : 108 ms QT Int : 410 ms P-R-T Axes : 20 9 86 degrees QTcB Int : 445 ms Sinus rhythm with sinus arrhythmia with occasional Premature ventricular complexes Inferior infarct (cited on or before 28-May-2016) Abnormal ECG Confirmed by MARSHA BARTH, ARAMIS ([id number]), map editor JACKELYN DONNELLY ([id number]) on 01/19/2025 10:54:56 AM Referred By: Confirmed By: ARAMIS LARSON MD 01/19/25 1055 Date _ Aramis Larson MD CC: Dr. Oniel Francis MD; Dr. Leti Lu DO; Tate Mcdonough DO ~ Signed [facility] Work Phone: Emergency Department Summary on 01-19-2025 Emergency Department Summary [facility] Medical Records Department [address] [place] [address] Emergency Department Summary 01/19/25 MR#: [id number] Acct: [id number] Name: SONIYA COOLEY Rep #: [id number] : 1940 84 From: Tate Mcdonough DO PCP: Dr. Oniel Francis MD Status:ADM DARI Location: [place] [address] HPI History of Present Illness Chief Complaint: Neuro S/Sx Informant: patient and spouse/S.O. Narrative Narrative: Patient is an 84-year-old male with past medical history of Parkinson's disease hypertension hyperlipidemia and coronary artery disease. Patient and state that he awoke this morning to use the restroom but was so weak that he could not stand and she noticed that during this time he was also slurring his speech. She states that he went to bed approximate 11 PM and that was his last known well. With concern for an acute stroke he was brought in for evaluation. [facility] Medical History (Updated 01/19/25 @ 08:[address] Tate Mcdonough DO) Parkinson disease Family history of malignant neoplasm of colon in mother Personal history of colonic polyps Essential tremor Aortic prosthetic valve regurgitation Deep vein thrombophlebitis of right leg Obesity Left carotid artery stenosis Prosthetic aortic valve stenosis Central sleep apnea Nonrheumatic aortic (valve) insufficiency Bicuspid aortic valve Vitamin D deficiency History of rheumatic fever Hyperlipidemia History of carotid artery disease Atherosclerosis of coronary artery of [place] heart without angina pectoris Essential hypertension Contusion of finger without damage to nail Laceration of finger of left hand without foreign body without damage to nail Hemorrhoids Shortness of breath Neck pain on left side Tingling and numbness left fingers Home Medications ???Medication ???Instructions ???Recorded ???Last Taken ???Type sesmfslf-omp-jxqfx acid 0.4 1 ea PO DAILY 05/28/16 05/28/16 Hi story mg-lycopene 300 mcg-lutein 250 mcg tablet acetaminophen 500 mg tablet 1,000 mg PO TID PRN fever or pain 05/29/19 Unknown History cyanocobalamin (vitamin B-12) 500 1,000 mcg PO DAILY 05/29/19 Unkno wn History mcg sublingual tablet aspirin 81 mg chewable tablet 81 mg PO DAILY 12/22/19 Unknown Hi story carbidopa 25 mg-levodopa 100 mg 2 tab PO TID 02/03/21 Unknown Hist ory tablet cholecalciferol (vitamin D3) 25 2,000 unit PO BID 02/03/21 Unknown History mcg (1,000 unit) tablet fluticasone propionate 50 1 spray intranasal DAILY PRN nasal 02/03/21 Unknown History mcg/actuation nasal congestion spray,suspension (Allergy Relief (fluticasone)) levothyroxine 25 mcg tablet 25 mcg PO DAILY 02/03/21 Unknown H istory metoprolol tartrate 50 mg tablet See Rx Instructions .Route 3 Unknown Rx .COMPLEX #180 tabs nitroglycerin 0.4 mg sublingual See Rx Instructions .Route 3 Unknown Rx tablet .COMPLEX #25 tabs atorvastatin 80 mg tablet 80 mg PO QHS 01/19/25 Unknown Hist ory propranolol 80 mg capsule,24 80 mg PO Q24H 01/19/25 Unknown His tory hr,extended release tamsulosin 0.4 mg capsule 0.8 mg PO QHS 01/19/25 Unknown His tory trazodone 50 mg tablet 50 mg PO QHS 01/19/25 Unknown Hist ory Allergy/AdvReac Type Severity Reaction Status Date / Time iodine Allergy Other Verified 01/19/25 03:56 Penicillins Allergy Hives Verified 01/19/25 03:56 Family History Mother Heart disease Colon cancer Father Diabetes Sister Heart disease Brother Heart disease Surgical History (Updated 01/19/25 @ 04:14 by Alexsandra Salas) History of single vessel coronary artery bypass History of cataract extraction History of colonoscopy ( 2014) History of left heart catheterization (08/26/18) H/O coronary artery bypass surgery (10/2018) H/O aortic valve replacement (10/2018) History of left-sided carotid endarterectomy (2008) History of hernia repair History of cholecystectomy History of tonsillectomy Social History Smoking Status: Never smoker alcohol intake: current alcohol intake frequency: a few times a month Alcohol type: beer and wine substance use type: does not use caffeine: No ROS ROS ED Constitutional Constitutional ED: Denies chills or fever(s) Eyes Eyes: Denies blurry vision or change in vision ENT ENT ED: Denies sore throat Cardiovascular Cardiovascular: Denies chest pain, palpitations or racing heartbeat Respiratory/Chest Respiratory/Chest: Denies cough or dyspnea Gastrointestinal Gastrointestinal: Denies abdominal pain, diarrhea, nausea or vomiting Genitourinary Genitourinary ED: Denies dysuria Musculoskeletal Musculoskeletal: Denies myalgias Integumentary Denies rash Neurologic Neurologic: (more content not included)... Normal [facility] Eosinophil percentageOrdered By: Tate Mcdonough on 01-19-2025 Eosinophils/100 WBC (Bld) 4.3 % Normal 0-5 [facility] Comment on above: Performed By: #### L 300.3900, L300.4310, L100.0100, L500.2500 #### [facility] [address], [place], [id number] Erythrocyte distribution wid th ratioOrdered By: Tate Mcdonough on 01-19-2025 Erythrocyte distribution width (RBC) [Ratio] 13.2 % Normal 11.6-14.6 [facility] Comment on above: Performed By: #### L 300.3900, L300.4310, L100.0100, L500.2500 #### [facility] [address], [place], [address] Erythrocyte distribution wid th standard deviationOrdered By: Tate Mcdonough on 01-19-2025 Erythrocyte distribution width (RBC) [Ratio] 46.3 fl High 35.1-43.9 [facility] Glomerular filtration rate ( GFR) estimation/1.73 sq m using serum, plasma, or whole bOrdered By: Tate Mcdonough on 01-19-2025 GFR/1.73 sq M.predicted among non-blacks MDRD (S/P/Bld) [Vol rate/Area] 84 mL/min/{1.73_m2} Normal >60 [facility] Comment on above: mL/min/1.73m2 CKD-EP I Creatinine Equation (2020) Result Comment: mL/m in/1.73m2 CKD-EPI Creatinine Equation (2020) Performed By: #### L 300.3900, L300.4310, L100.0100, L500.2500 #### [facility] [address] [place], [address] [facility] at [facility] deOrdered By: Leti Lu on 01-19-2025 Glucose [Mass/Vol] 136 mg/dL High 74-106 [facility] Comment on above: MANAGEMENT OF PATIEN T CARE PER NURSING PROTOCOL Hemoglobin measurementOrdere d By: Tate Mcdonough on 01-19-2025 Hemoglobin (Bld) [Mass/Vol] 14.2 g/dL Normal 13.0-16.5 [facility] Comment on above: Performed By: #### L 300.3900, L300.4310, L100.0100, L500.2500 #### [facility] [address] [place], [address] Immature granulocytes/100 WB C Auto (Bld)Ordered By: Tate Mcdonough on 01-19-2025 Immature granulocytes/100 WBC (Bld) 0.200 % 0.0-0.9 [facility] Comment on above: IG% - Immature Granu locytes (promyelocytes, myelocytes and metamyelocytes) > 1% indicates that a LEFT SHIFT is Present. International normalized rat io (INR) calculationOrdered By: Tate Mcdonough on 01-19-2025 INR Coag (Bld) [Relative time] 1.0 {INR} [facility] Ketones Test strip Ql (U)Ord ered By: Tate Mcdonough on 01-19-2025 Ketones Ql (U) Negative Negative [facility] MCV (mean corpuscular volume ) determinationOrdered By: Tate Mcdonough on 01-19-2025 MCV (RBC) [Entitic vol] 94.7 fL High 80-94 [facility] Comment on above: Performed By: #### L 300.3900, L300.4310, L100.0100, L500.2500 #### [facility] [address] [place], [address] MR/CON.PCM.NEon 01-19-2025 MR/CON.PCM.NE [facility] Medical Records Department [address] [place] [address] Consultation - Neurology 01/19/25 1324 MR#: [id number] Acct: [id number] Name: SONIYA COOLEY Rep #: [id number] : 1940 84 From: Sulaiman Carrasquillo MD PCP: Dr. Oniel Francis MD Status:ADM DARI Location: [place] [address] Assessment and Plan: Stroke Assessment/Plan Mr Cooley presents with acute onset dysarthria and bilateral lower extremity weakness concerning for a Transient Ischemic Attack (TIA). While he did miss a dose of sinemet that evening, he has never had such pronounced dysarthria with previous missed doses so less likely symptoms d/t PD. Obtain lipid panel and hemoglobin A1c. Recommend TTE and 30 day rock duster after discharge. PT/OT eval. Load with clopidogrel 300mg now. Use aspirin 81mg and clopidogrel 75mg daily x 21 days then stop clopidogrel. Continue aspirin indefinitely. Continue home atorvastatin 80mg daily. OK to discharge after TTE from neurological standpoint. Follow up with neurology as an outpatient. Warned about signs and symptoms of a stroke. HPI Consult Data Date of Consult: 01/19/25 HPI Narrative HPI Narrative: SONIYA COOLEY, is a 84 M w/ Parkinson Disease, L carotid stenosis s/p CEA, CAD s/p CABG (2019). 01/19/25 awoke in the night w/ acute BLE weakness and dysarthria x 40 min then resolved. NIHSS 0. Did miss a dose of Sinemet but never has had dysarthria like that before with prior missed doses. MRI/CTA neg. [facility] Medical History (Updated 01/19/25 @ 08:[address] Tate Mcdonough DO) Parkinson disease Family history of malignant neoplasm of colon in mother Personal history of colonic polyps Essential tremor Aortic prosthetic valve regurgitation Deep vein thrombophlebitis of right leg Obesity Left carotid artery stenosis Prosthetic aortic valve stenosis Central sleep apnea Nonrheumatic aortic (valve) insufficiency Bicuspid aortic valve Vitamin D deficiency History of rheumatic fever Hyperlipidemia History of carotid artery disease Atherosclerosis of coronary artery of [place] heart without angina pectoris Essential hypertension Contusion of finger without damage to nail Laceration of finger of left hand without foreign body without damage to nail Hemorrhoids Shortness of breath Neck pain on left side Tingling and numbness left fingers Home Medications ???Medication ???Instructions ???Recorded ???Last Taken ???Type bmsfjvbf-vme-mlabt acid 0.4 1 ea PO DAILY 05/28/16 05/28/16 Hi story mg-lycopene 300 mcg-lutein 250 mcg tablet acetaminophen 500 mg tablet 1,000 mg PO TID PRN fever or pain 05/29/19 Unknown History cyanocobalamin (vitamin B-12) 500 1,000 mcg PO DAILY 05/29/19 Unkno wn History mcg sublingual tablet aspirin 81 mg chewable tablet 81 mg PO DAILY 12/22/19 Unknown Hi story carbidopa 25 mg-levodopa 100 mg 2 tab PO TID 02/03/21 Unknown Hist ory tablet cholecalciferol (vitamin D3) 25 2,000 unit PO BID 02/03/21 Unknown History mcg (1,000 unit) tablet fluticasone propionate 50 1 spray intranasal DAILY PRN nasal 02/03/21 Unknown History mcg/actuation nasal congestion spray,suspension (Allergy Relief (fluticasone)) levothyroxine 25 mcg tablet 25 mcg PO DAILY 02/03/21 Unknown H istory metoprolol tartrate 50 mg tablet See Rx Instructions .Route 3 Unknown Rx .COMPLEX #180 tabs nitroglycerin 0.4 mg sublingual See Rx Instructions .Route 3 Unknown Rx tablet .COMPLEX #25 tabs atorvastatin 80 mg tablet 80 mg PO QHS 01/19/25 Unknown Hist ory propranolol 80 mg capsule,24 80 mg PO Q24H 01/19/25 Unknown His tory hr,extended release tamsulosin 0.4 mg capsule 0.8 mg PO QHS 01/19/25 Unknown His tory trazodone 50 mg tablet 50 mg PO QHS 01/19/25 Unknown Hist ory Allergy/AdvReac Type Severity Reaction Status Date / Time iodine Allergy Other Verified 01/19/25 03:56 Penicillins Allergy Hives Verified 01/19/25 03:56 Family History Mother Heart disease Colon cancer Father Diabetes Sister Heart disease Brother Heart disease Surgical History (Updated 01/19/25 @ 04:14 by Alexsandra Salas) History of single vessel coronary artery bypass History of cataract extraction History of colonoscopy ( 2014) History of left heart catheterization (08/26/18) H/O coronary artery bypass surgery (10/2018) H/O aortic valve replacement (10/2018) History of left-sided carotid endarterectomy (2008) History of hernia repair History of cholecystectomy History of tonsillectomy Social History Smoking Status: Never smoker alcohol intake: current alcohol intake frequency: a few times a month Alcohol type: beer and wine substance use type: does not use caffeine: N (more content not included)... Normal [facility] Magnetic resonance imaging r eportOrdered By: Lucas Monroe on 01-19-2025 Study report [facility] Imaging Services [address] [place] [address] Brain without Contrast MR#: [id number] Acct: [id number] Name: SONIYA COOLEY Rep #: [id number] : 1940 M 84 From: Graciela Monroe MD PCP: Dr. Oniel Francis MD Status: ADM DARI Study:Brain without Contrast Date of Exam: 01/19/25 Exam# [id number] Ordering Dr: Mik Kilgore MD EXAM: BRAIN WITHOUT CONTRAST CLINICAL HISTORY: TIA, slurred speech, bilateral lower extremity weakness COMPARISON: None. TECHNIQUE: Multiplanar, multisequence MR images of the brain were obtained without gadolinium contrast material. FINDINGS: No intracranial hemorrhage, mass, mass effect, midline shift or pathologic extra- axial fluid collection. No hydrocephalus. There is no significant white matter disease.. No areas of restricted diffusion to suggest acute ischemia or infarction. No gradient signal blooming artifacts are identified. No cerebellar tonsillar ectopia. No sellar/suprasellar signal abnormalities. The ocular globes and intraorbital soft tissues are symmetrically unremarkable. Sinus disease is visible in the floor of the right maxillary sinus. There is fluid signal in a portion of the right mastoid air cells, with mastoiditis. MRI/Brain without Contrast IMPRESSION: Sinus disease is visible in the floor of the right maxillary sinus. There is fluid signal in a portion of the right mastoid air cells, with mastoiditis. No acute intracranial abnormality is identified. Reading Location: [facility] CC: Dr. Oniel Francis MD; Dr. Mik Kilgore MD ~ Eeg Technician: Signed [facility] Mean corpuscular hemoglobin (MCH) determinationOrdered By: Tate Mcdonough on 01-19-2025 MCH (RBC) [Entitic mass] 32.9 pg High 27.0-32.0 [facility] Comment on above: Performed By: #### L 300.3900, L300.4310, L100.0100, L500.2500 #### [facility] [address] [place], [place], [id number] Mean corpuscular hemoglobin concentration (MCHC) determinationOrdered By: Tate Mcdonough on 01-19-2025 MCHC (RBC) [Mass/Vol] 34.8 g/dL Normal 32-36 [facility] Comment on above: Performed By: #### L 300.3900, L300.4310, L100.0100, L500.2500 #### [facility] [address] [place], [place], [id number] Mean platelet volume determi nationOrdered By: Tate Mcdonough on 01-19-2025 Platelet mean volume (Bld) [Entitic vol] 10.4 fL Normal 6.2-12.0 [facility] Comment on above: Performed By: #### L 300.3900, L300.4310, L100.0100, L500.2500 #### [facility] [address] [place], [place], [address] Microscopic analysis of urin e for red blood cells (RBC)Ordered By: Tate Mcdonough on 01-19-2025 Microscopic analysis of urine for red blood cells (RBC) 0 SEEN /hpf 0-5 [facility] Monocyte percentageOrdered B y: Tate Mcdonough on 01-19-2025 Monocytes/100 WBC (Bld) 10.0 % Normal 0-10 [facility] Comment on above: Performed By: #### L 300.3900, L300.4310, L100.0100, L500.2500 #### [facility] [address] [place], [address] Mucus LM Ql (Urine sed)Order ed By: Tate Mcdonough on 01-19-2025 Mucus Ql (Urine sed) 0 SEEN /hpf [facility] Neutrophil percentageOrdered By: Tate Mcdonough on 01-19-2025 Neutrophils/100 WBC (Bld) 36.7 % Low 47-70 [facility] Comment on above: Performed By: #### L 300.3900, L300.4310, L100.0100, L500.2500 #### [facility] [address] [place], [address] Nitrite Test strip Ql (U)Ord ered By: Tate Mcdonough on 01-19-2025 Nitrite Ql (U) Negative Negative [facility] Nucleated red blood cell per centageOrdered By: Tate Mcdonough on 01-19-2025 Nucleated RBC/100 WBC (Bld) [Ratio] 0 % 0-5 [facility] Partial Thromboplast Timeon 01-19-2025 aPTT Coag (Bld) [Time] 28.5 s Normal 24.1-36.2 [facility] Comment on above: Performed By: #### L 300.3900, L300.4310, L100.0100, L500.2500 ####[facility] [id number] [facility] [place], [address] Platelet countOrdered By: Marjan Mcdonough on 01-19-2025 Platelets (Bld) [#/Vol] 135 10*3/uL Low 150-450 [facility] Comment on above: Performed By: #### L 300.3900, L300.4310, L100.0100, L500.2500 #### [facility] [address] [place], [address] Potassium measurement (mass/ volume)Ordered By: Tate Mcdonough on 01-19-2025 Potassium (Unsp spec) [Mass/Vol] 4.1 mmol/L 3.3-5.1 [facility] Protein Test strip Ql (U)Ord ered By: Tate Mcdonough on 01-19-2025 Protein Ql (U) Negative Negative [facility] Prothrombin Time w/INRon INR Coag (PPP) [Relative time] 1.0 {INR} Normal [facility] Comment on above: Performed By: #### L 300.3900, L300.4310, L100.0100, L500.2500 ####[facility] [id number] [place], [address] Prothrombin timeOrdered By: Tate Mcdonough on 01-19-2025 PT Coag (PPP) [Time] 13.4 s Normal 11.7-14.9 [facility] Comment on above: Performed By: #### L 300.3900, L300.4310, L100.0100, L500.2500 ####[facility] [id number] [place], [address] STROKE Brain/Head without Co nton 01-19-2025 STROKE Brain/Head without Cont [facility] Imaging Services [address] [place] [address] STROKE Brain/Head without Cont MR#: [id number] Acct: [id number] Name: SONIYA COOLEY Ella Rep #: [id number] : 1940 M 84 From: Luis Enrique jung MD PCP: Dr. Oniel Francis MD Status: REG ER Study: STROKE Brain/Head without Cont Date of Exam: 0 01/19/25 Exam# [id number] Ordering Dr: Tate Mcdonough DO PROCEDURE: STROKE BRAIN/HEAD WITHOUT CONT 01/19/2025 REASON FOR EXAM: NEURO DEFICIT, ACUTE, STROKE SUSPECTED TECHNIQUE: STROKE BRAIN/HEAD WITHOUT CONT Coronal and Sagittal reconstruction series were provided. One or more dose reduction techniques were used (e.g., Automated exposure control, adjustment of the mA and/or kV according to patient size, use of iterative reconstruction technique. RADIATION DOSE SUMMARY: CTDlvol: 44.99 mGy DLP: 812 mGycm COMPARISON: None. FINDINGS: Mild diffuse cortical atrophy, commensurate with the patient's age. Scattered hypodense foci in the periventricular and subcortical white matter suggestive of chronic ischemic white matter disease. Normal size of the ventricles and extra-axial spaces for the patient's age. Normal basal ganglia and thalami. Normal brainstem. Normal cerebellum. There is no demonstrated extra-axial, intraparenchymal, or intraventricular hemorrhage. There are no findings of an acute ischemic infarction. Normal calvarium. There is no demonstrated fracture. Normal soft tissue structures. Mild chronic mucosal inflammatory changes of the visualized paranasal sinuses. CT/STROKE Brain/Head without Cont IMPRESSION: No CT evidence for acute brain abnormality. Reading Location: [place] [address] CC: Dr. Oniel Francis MD; Tate Mcdonough DO Eeg Technician: Signed Normal [facility] STROKE CTA Head AND Neck W/C onon 01-19-2025 STROKE CTA Head AND Neck W/Con [facility] Imaging Services [address] [place] [address] STROKE CTA Head AND Neck W/Con MR#: [id number] Acct: [id number] Name: SONIYA COOLEY Rep #: [id number] : 1940 M 84 From: Luis Enrique jung MD PCP: Dr. Oniel Francis MD Status: REG ER Study: STROKE CTA Head AND Neck W/Con Date of Exam: 0 01/19/25 Exam# [id number] Ordering Dr: Tate Mcdonough DO PROCEDURE: STROKE CTA HEAD AND NECK W/CON 01/19/2025 REASON FOR EXAM: NEURO DEFICIT, ACUTE, STROKE SUSPECTED TECHNIQUE: STROKE CTA HEAD AND NECK W/CON Multiplanar Sagittal and Coronal images were obtained. CONTRAST: Isovue-300 70 VOLUME: 100 mL One or more dose reduction techniques were used (e.g., Automated exposure control, adjustment of the mA and/or kV according to patient size, use of iterative reconstruction technique). RADIATION DOSE SUMMARY: CTDlvol: 19.77 mGy DLP: 816 mGycm COMPARISON: CT scan of the head on 01/19/2025. FINDINGS: Normal bilateral petrous carotid arteries. Calcified atheromatous plaques with mild multifocal stenosis of the right cavernous carotid artery with a normal supraclinoid bifurcation. Calcified atheromatous plaques with mild multifocal stenosis of the left cavernous carotid artery with a normal supraclinoid bifurcation. Normal right A1 segments of the anterior cerebral artery. Normal left A1 segments of the anterior cerebral artery. Normal intact anterior communicating artery (ACOM). Normal bilateral A2 segments of the anterior cerebral arteries. Normal right M1 and M2 segments of the middle cerebral arteries, with a normal M1 bifurcation. Normal left M1 and M2 segments of the middle cerebral arteries, with a normal M1 bifurcation. Normal right posterior communicating artery (PCOM). Normal left posterior communicating artery (PCOM). Normal bilateral vertebral arteries. Normal basilar artery with a normal basilar bifurcation. The visualized bilateral superior cerebellar (SCA) arteries are normal. Normal bilateral P1, P2 and visualized P3 segments of the posterior cerebral arteries. There is no demonstrated aneurysm of the [place]. There is no major vessel occlusion or hemodynamically significant stenosis. There is no demonstrated abnormality of the visualized brain. Technique: Axial CT angiographic images of the neck. Reformatted coronal and sagittal images. 3D, MIP images. Reconstructed images were reviewed on a different workstation by radiologist. RIGHT CAROTID ARTERIES: Normal right common carotid artery (CCA). 20% stenosis of the right common carotid bulb. 20% stenosis of the origin of the right internal carotid (ICA) artery without a hemodynamically significant stenosis. Normal visualized cervical portion of the right internal carotid artery. Normal origin of the right external carotid artery (ECA). LEFT CAROTID ARTERIES: Normal left common carotid artery (CCA). 20% stenosis of the left common carotid bulb. 20% stenosis of the origin of the left internal carotid (ICA) artery without a hemodynamically significant stenosis. Normal visualized cervical portion of the left internal carotid artery. Normal origin of the left external carotid artery (ECA). VERTEBRAL ARTERIES: 20% stenosis of the bilateral vertebral artery without a hemodynamically significant stenosis. CT/STROKE CTA Head AND Neck W/Con IMPRESSION: Atherosclerosis without high-grade stenosis. Reading Location: [place] [address] CC: Dr. Oniel Francis MD; Tate Mcdonough DO Eeg Technician: Signed Normal [facility] Serum creatinine measurement (mass/volume)Ordered By: Tate Mcdonough on 01-19-2025 Creatinine [Mass/Vol] 0.91 mg/dL Normal 0.70-1.20 [facility] Comment on above: Performed By: #### L 300.3900, L300.4310, L100.0100, L500.2500 #### [facility] [address] [place], [address] Serum glucose measurement (m ass/volume)Ordered By: Tate Mcdonough on 01-19-2025 Glucose [Mass/Vol] 145 mg/dL High 70-99 [facility] Comment on above: Performed By: #### L 300.3900, L300.4310, L100.0100, L500.2500 #### [facility] [address] [facility] [place], [address] Serum or plasma calcium juan urement (mass/volume)Ordered By: Tate Mcdonough on 01-19-2025 Calcium [Mass/Vol] 9.7 mg/dL Normal 7.6-11.0 [facility] Comment on above: Performed By: #### L 300.3900, L300.4310, L100.0100, L500.2500 #### [facility] [address] [facility] [place], [address] Serum or plasma urea nitroge n measurement (mass/volume)Ordered By: Tate Mcdonough on 01-19-2025 Urea nitrogen [Mass/Vol] 25 mg/dL High 4-19 [facility] Comment on above: Performed By: #### L 300.3900, L300.4310, L100.0100, L500.2500 #### [facility] [address] [place], [address] Sodium levelOrdered By: Aime Mcdonough on 01-19-2025 Sodium [Moles/Vol] 140 mmol/L Normal 133-145 [facility] Comment on above: Performed By: #### L 300.3900, L300.4310, L100.0100, L500.2500 #### [facility] [address] [place], [address] Squamous epithelial cells de tection in urine sediment by light microscopyOrdered By: Tate Mcdonough on 01-19-2025 Epithelial cells.squamous LM Ql (Urine sed) 0 SEEN /hpf 0-5 [facility] Urinalysis, Completeon 01-19 BACTERIA 0 SEEN Normal None Seen [facility] Comment on above: Order Comment: CLEAN CATCH Performed By: #### L 400.0001 #### [facility] [address] [place], [address] EPI,SQUAMOUS 0 SEEN Normal 0-5 [facility] Comment on above: Order Comment: CLEAN CATCH Performed By: #### L 400.0001 #### [facility] [address] [place], [address] Mucus Ql (Urine sed) 0 SEEN Normal [facility] Comment on above: Order Comment: CLEAN CATCH Performed By: #### L 400.0001 #### [facility] [address] [place], [address] RBC 0 SEEN Normal 0-5 [facility] Comment on above: Order Comment: CLEAN CATCH Performed By: #### L 400.0001 #### [facility] [address] [place], [address] WBC 0 SEEN Normal 0-5 [facility] Comment on above: Order Comment: CLEAN CATCH Performed By: #### L 400.0001 #### [facility] [address] [place], [place], [id number] Urine clarityOrdered By: Denny Mcdonough on 01-19-2025 Clarity (U) Clear Clear [facility] Urine color determinationOrd ered By: Tate Mcdonough on 01-19-2025 Color (U) Yellow Yellow [facility] Urine glucose detectionOrder ed By: Tate Mcdonough on 01-19-2025 Glucose Ql (U) Normal mg/dl Normal [facility] Urine leukocyte esterase det ection by dipstickOrdered By: Tate Mcdonough on 01-19-2025 Leukocyte esterase Test strip Ql (U) Negative Negative [facility] Urine pHOrdered By: Tate gutierrez on 01-19-2025 pH (U) 6.0 [pH] 5.0 - 8.0 [facility] Urine sediment bacteria coun t by microscopy (number/high power field)Ordered By: Tate Mcdonough on 01-19-2025 Bacteria LM.HPF (Urine sed) [#/Area] 0 /[HPF] None Seen [facility] Urine specific gravity measu rementOrdered By: Tate Mcdonough on 01-19-2025 Specific gravity (U) [Rel density] 1.015 1.002-1.030 [facility] Urine urobilinogen measureme ntOrdered By: Tate Mcdonough on 01-19-2025 Urobilinogen Ql (U) Normal mg/dl Normal [facility] White blood cell (WBC) count Ordered By: Tate Mcdonough on 01-19-2025 WBC (Bld) [#/Vol] 6.3 10*3/uL Normal 4.4-11.0 [facility] Comment on above: Performed By: #### L 300.3900, L300.4310, L100.0100, L500.2500 #### [facility] [address] [place], [place], [address] White blood cell countOrdere d By: Tate Mcdonough on 01-19-2025 White blood cell count 0 SEEN /hpf 0-5 [facility] Lumbar Spine 2 or 3 Viewson 01-18-2025 Lumbar Spine 2 or 3 Views [facility] [address] [place] [address] Lumbar Spine 2 or 3 Views MR#: [id number] Acct: [id number] Name: SONIYA COOLEY Rep #: [id number] : 1940 M 84 From: Luis Enrique jung MD PCP: Dr. Oniel Francis MD Status: DEP AMB Study: Lumbar Spine 2 or 3 Views Date of Exam: Exam# [id number] Ordering Dr: Mayra Hicks PROCEDURE: LUMBAR SPINE 2 OR 3 VIEWS 01/18/2025 REASON FOR EXAM: LUMBAR DEGENERATIVE DISC DISEASE TECHNIQUE: LUMBAR SPINE 2 OR 3 VIEWS COMPARISON: None. FINDINGS: Mild degenerative dextroscoliosis apex at L3. Grade 1 anterolisthesis of L3 on L4 measuring 4.6 mm. There are diffuse spondylotic changes. Findings are demonstrated to by diffuse disc space narrowing, osteophyte formation and degenerative endplate sclerosis. There is diffuse facet joint arthropathy with secondary bilateral neural foramina narrowing. No fracture or dislocation is seen. No aggressive lytic or blastic bony lesion is noted. RAD/Lumbar Spine 2 or 3 Views IMPRESSION: Spondylosis. Reading Location: [place] [address] CC: Mayra Hicks; Dr. 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 Depending on response we could increase propranolol in the future. Thanks Precious Caballero RN 09/21/2024 12:16 PM Signed Called patient at [phone]. Left message on voicemail for patient to return call. Moni Encarnacion MA 09/23/2024 1:39 PM Signed Called and spoke with patient. He expressed understanding. Allergies As of Date: 09/18/2024 Noted Allergy Reaction IODINE 10/09/2002 14 - Other: See Comments Comments: ?decreased BP with iodinated contrast during a cardiac cath. Pt reports he was told by the white goods appliance tech that they almost lost him due to [...] (FLONASE) 50 mcg/actuation nasal spray Use 1 Howard in each nostril once daily. Rinse mouth after use. - Cholecalciferol, Vitamin D3, 2,000 unit cap Take 2 tablets by mouth once daily. - omega-3 fatty acids/vitamin e(FISH OIL 1,000 MG CAP) one tablet twice daily - multivitamins w-minerals/lut(CENTR UM SILVER TAB) One tablet daily Meds Comments [...] disorder [G47.9] 07/26/2015 Coronary 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[place]*08/24/2015 Meniscus tear [S83.209A] 12/27/2015 Elevated blood [...] both henderson (more content not included)... 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 DynamicsSISUID Normal [facility] CNOVon 09-11-2024 CNOV Office Visit ([facility]) SONIYA COOLEY ([id number]) 1940 M Date Time Provider Department 09/11/24 3:00 PM ABBY PATE [facility] During your visit today, we recorded [...] (FLONASE) 50 mcg/actuation nasal spray Use 1 Howard in each nostril once daily. Rinse mouth after use. 1 Bottle 5 Cholecalciferol, Vitamin D3, 2,000 unit cap Take 2 tablets by mouth once daily. 0 omega-3 fatty acids/vitamin e(FISH OIL 1,000 MG CAP) one tablet twice daily 0 multivitamins w-minerals/lut(CENTR UM SILVER TAB) One tablet daily 0 meloxicam (MOBIC) 15 mg tablet once daily. Current Facility-Administere d Medications Medication Dose Route Frequency Provider Last [...] exam 1520 (more content not included)... Normal [facility] Comprehensive metabolic 2000 panelon 09-01-2024 Albumin [Mass/Vol] 4.6 g/dL Normal 3.9-4.9 [facility] Comment on above: Order Comment: Speci men Type: BLOOD SPECIMENOrdering Facility: [facility] Address: [address] [place], [place] [address] Performed By: #### 2 4323-8 ####[facility] [id number] [place] [address] [place] ALP [Catalytic activity/Vol] 96 U/L Normal 38-113 [facility] Comment on above: Order Comment: Speci men Type: BLOOD SPECIMENOrdering Facility: [facility] Address: [address] [place] [address] Performed By: #### 2 4323-8 ####[facility] [id number] [place] [address] [place] ALT [Catalytic activity/Vol] 34 U/L Normal 10-54 [facility] Comment on above: Order Comment: Speci men Type: BLOOD SPECIMENOrdering Facility: [facility] Address: [address] [place] [address] Performed By: #### 2 4323-8 ####[facility] MILLTOWNCLIA [id number] [place] [address] [place] Anion gap [Moles/Vol] 9 mmol/L Normal 8-15 [facility] Comment on above: Order Comment: Speci men Type: BLOOD SPECIMENOrdering Facility: [facility] Address: [address] [place] [address] Performed By: #### 2 4323-8 ####[facility] [id number] [place] [address] [place] AST [Catalytic activity/Vol] 26 U/L Normal 14-40 [facility] Comment on above: Order Comment: Speci men Type: BLOOD SPECIMENOrdering Facility: [facility] Address: [address] [place] [address] Performed By: #### 2 4323-8 ####[facility] MILLTOWNCLIA [id number] [place] [address] [place] Bilirubin [Mass/Vol] 0.9 mg/dL Normal 0.2-1.3 [facility] Comment on above: Order Comment: Speci men Type: BLOOD SPECIMENOrdering Facility: [facility] Address: [address] [place] [address] Performed By: #### 2 4323-8 ####[facility] MILLTOWNCLIA [id number] [place] [address] [place] Calcium [Mass/Vol] 10.1 mg/dL Normal 8.5-10.2 [facility] Comment on above: Order Comment: Speci men Type: BLOOD SPECIMENOrdering Facility: [facility] Address: [address] [place] [address] Performed By: #### 2 4323-8 ####[facility] [id number] [place] [address] [place] Chloride [Moles/Vol] 104 mmol/L Normal 98-107 [facility] Comment on above: Order Comment: Speci men Type: BLOOD SPECIMENOrdering Facility: [facility] Address: [address] [place] [address] Performed By: #### 2 4323-8 ####[facility] [id number] [place] [address] [place] CO2 [Moles/Vol] 27 mmol/L Normal 22-30 [facility] Comment on above: Order Comment: Speci men Type: BLOOD SPECIMENOrdering Facility: [facility] Address: [address] [place] [address] Performed By: #### 2 4323-8 ####[facility]ENTER[facility] [id number] [place] [address] [place] Creatinine [Mass/Vol] 0.84 mg/dL Normal 0.73-1.22 [facility] Comment on above: Order Comment: Speci men Type: BLOOD SPECIMENOrdering Facility: [facility] Address: [address] [place] [address] Performed By: #### 2 4323-8 ####[facility] [id number] [place] [address] [facility] Creatinine and Glomerular filtration rate.predicted panel (S/P/Bld) 87 mL/min/1.73m??? Normal >=60 [facility] Comment on above: Order Comment: Speci men Type: BLOOD SPECIMENOrdering Facility: [facility] Address: [address] [place] [address] Result Comment: Janae mated Glomerular Filtration Rate [...] actual GFR. Performed By: #### 2 4323-8 ####[facility] [id number] [place] [address] [place] Glucose [Mass/Vol] 124 mg/dL High 74-99 [facility] Comment on above: Order Comment: Speci men Type: BLOOD SPECIMENOrdering Facility: [facility] Address: [address] [place] [address] Result Comment: The [place] Diabetes Association (ADA) provides guidance for cutoff [...] Standards of Medical Care in Diabetes 2016, [place] Diabetes Association. Diabetes Care. 2016.39(Suppl 1). Performed By: #### 2 4323-8 ####[facility] [id number] [place] [address] [place] Potassium [Moles/Vol] 4.7 mmol/L Normal 3.7-5.1 [facility] Comment on above: Order Comment: Speci men Type: BLOOD SPECIMENOrdering Facility: [facility] Address: [address] [place] [address] Performed By: #### 2 4323-8 ####[facility] [id number] [place] [address] [place] Protein [Mass/Vol] 7.0 g/dL Normal 6.3-8.0 [facility] Comment on above: Order Comment: Speci men Type: BLOOD SPECIMENOrdering Facility: [facility] Address: [address] [place] [address] Performed By: #### 2 4323-8 ####[facility] [id number] [place] [address] [place] Sodium [Moles/Vol] 140 mmol/L Normal 136-144 [facility] Comment on above: Order Comment: Speci men Type: BLOOD SPECIMENOrdering Facility: [facility] Address: [address] [place] [address] Performed By: #### 2 4323-8 ####[facility] ER[facility] [id number] [place] [address] [place] Urea nitrogen [Mass/Vol] 34 mg/dL High 9-24 [facility] Comment on above: Order Comment: Speci men Type: BLOOD SPECIMENOrdering Facility: [facility] Address: [address] [place] [address] Performed By: #### 2 4323-8 ####[facility] ERNCLIA [id number] [place] [address] [facility] Lipid 1996 panelon 5 Cholesterol [Mass/Vol] 109 mg/dL Normal <200 [facility] Comment on above: Order Comment: Speci men Type: BLOOD SPECIMENOrdering Facility: [facility] Address: [address] [place] [address] Result Comment: <200 mg/dL, Desirable 200-239 mg/dL, Borderline high >239 mg/dL, High Performed By: #### 3 3762-6 ####[facility] LABCLIA [id number] [place] [address] [place]#### 43563-2 ####[facility] LABCLIA [id number] [place] [address] [place] AMERICALOU[facility] CENTERLIA [id number] [address] [place] Cholesterol in HDL [Mass/Vol] 47 mg/dL Normal >39 [facility] Comment on above: Order Comment: Murphyi men Type: BLOOD SPECIMENOrdering Facility: [facility] Address: [address] [place] [address] Result Comment: 40-5 9 mg/dL, Acceptable >59 mg/dL, High: Negative risk factor for coronary heart disease <40 mg/dL, Low: Positive risk factor for coronary heart disease Performed By: #### 3 3762-6 ####[facility] LABCLIA [id number] [place] [address] [place]#### 35285-5 ####[facility] LABCLIA [id number] [place] [address] [place] [facility] [id number] [address] [place] Cholesterol in LDL [Mass/Vol] 47 mg/dL Normal <100 [facility] Comment on above: Order Comment: Murphyi men Type: BLOOD SPECIMENOrdering Facility: [facility] Address: [address] [place] [address] Result Comment: <100 mg/dL, Optimal 100-129 mg/dL, Near optimal/above optimal 130-159 mg/dL, Borderline high 160-189 mg/dL, High >189 mg/dL, Very high Secondary prevention optimal LDL Cholesterol levels are recommended to be < 70 mg/dL Performed By: #### 3 3762-6 ####[facility] LABCLIA [id number] [place] [address] [place]#### 68751-4 ####[facility] LABCLIA [id number] [place] [address] [place] [facility] [id number] [place] [address] [place] Cholesterol in LDL/Cholesterol in HDL [Mass ratio] 1.00 {ratio} Normal <2.54 [facility] Comment on above: Order Comment: Myles gottlieb Type: BLOOD SPECIMENOrdering Facility: [facility] Address: [address] [place] [address] Result Comment: Mitesh michel: 1. National Cholesterol Education Program ATP III Guideline At-A-Glance Quick Desk Reference: National Heart, Lung, and Blood [place]. National Institutes of Health. 2001: NIH Publication No. 01-3305. 2. An International Atherosclerosis Society position paper: global recommendations for the management of dyslipidemia: executive summary, Atherosclerosis. 2014: 232(2):410-413. Performed By: #### 3 3762-6 ####[facility] LABCLIA [id number] [place] [address] [place]#### 79979-5 ####[facility] LABCLIA [id number] [address] [id number] [place] [address] [place] Cholesterol in VLDL [Mass/Vol] 15 mg/dL Normal <30 [facility] Comment on above: Order Comment: Myles gottlieb Type: BLOOD SPECIMENOrdering Facility: [facility] Address: [address] [place] [address] Performed By: #### 3 3762-6 ####[facility] LABCLIA [id number] [place] [address] [place]#### 97424-3 ####[facility] LABCLIA [id number] [address] STATES OF [facility] [id number] [place] [address] [place] Cholesterol non HDL [Mass/Vol] 62 mg/dL Normal <130 [facility] Comment on above: Order Comment: Speci men Type: BLOOD SPECIMENOrdering Facility: [facility] Address: [address] [place] [address] Result Comment: <130 mg/dL, Optimal 130-159 mg/dL, Near optimal/above optimal 160-189 mg/dL, Borderline high 190-219 mg/dL, High >219 mg/dL, Very high Secondary prevention optimal non HDL Cholesterol levels are recommended to be <100 mg/dL Performed By: #### 3 3762-6 ####[facility] LABCLIA [id number] [place] [address] [place]#### 64608-2 ####[facility] LABCLIA [id number] [place] [id number] [place] [address] [place] Cholesterol.total/Luann sterol in HDL [Mass ratio] 2.32 {ratio} Normal <5.10 [facility] Comment on above: Order Comment: Speci men Type: BLOOD SPECIMENOrdering Facility: [facility] Address: [address] [place] [address] Performed By: #### 3 3762-6 ####[facility] LABCLIA [id number] [place] [address] [place]#### 15292-2 ####[facility] LABCLIA [id number] [address] [id number] [address] [place] FASTING TIME 12 hrs Normal [facility] Comment on above: Order Comment: Speci men Type: BLOOD SPECIMENOrdering Facility: [facility] Address: [address] [place], [place] [address] Performed By: #### 3 3762-6 ####[facility] LABCLIA [id number] [place] [address] [place]#### 76344-0 ####[facility] LABCLIA [id number] [address] [id number] [place] [address] [place] Triglyceride [Mass/Vol] 73 mg/dL Normal <150 [facility] Comment on above: Order Comment: Speci men Type: BLOOD SPECIMENOrdering Facility: [facility] Address: [address] [place] [address] Result Comment: <150 mg/dL, Normal 150-199 mg/dL, Borderline high 200-499 mg/dL, High >499 mg/dL, Very high Performed By: #### 3 3762-6 ####[facility] LABCLIA [id number] [place] [address] [place]#### 45500-9 ####[facility] LABCLIA [id number] [id number] [place] [address] [place] NT-proBNP [facility] 09-01 Natriuretic peptide.B prohormone N-Terminal [Mass/Vol] 131 pg/mL Normal <450 [facility] Comment on above: Order Comment: Speci men Type: BLOOD SPECIMENOrdering Facility: [facility] Address: [address] [place] [id number] Performed By: #### 3 3762-6 ####[facility] LABCLIA [id number] [place] [address] [place]#### 71156-4 ####[facility] LABCLIA [id number] [address] [facility] [id number] [place], [place] [address] [place] [address] CNOVon 08-31-2024 CNOV Office Visit ([facility]) SONIYA COOLEY ([id number]) 1940 M Date Time Provider Department 08/31/24 3:40 PM MARJ MACKEY During your visit today, we recorded the following information about you: Pulse Respiration Blood pressure Weight 74/minute 14/minute 98/56 91.2 kg Height 1.702 m Marj Mackey MD 08/31/2024 4:39 PM Signed [facility] Cardiology ([facility]) [address] [facility] [id number] OUTPATIENT VISIT DATE 08/31/2024 PRIMARY CARE PHYSICIAN: Oniel Francis [address] [place] [address] HISTORY OF PRESENT ILLNESS: Mr. Cooley is [...] FECAL OC (more content not included)... Normal [facility]ON[facility]OO[facility] ([id number]) 1940 M Date Time Provider Department 05/08/24 ZINA DURAN During your visit today, we recorded the following information about you: Mayra Breaux LPN 05/08/2024 10:03 AM Signed Patient Elizabet calling having problem scheduling ultrasound for his legs at [facility]. She was told office has to call to schedule. This nurse called and spoke to scheduling Rosalia and scheduled STAT ultrasound of his legs today at 1 pm patient to be there at 1245 pm. Phoned patient back and gave instructions, told may want to be earlier since construction is going on at [facility] area. Phoned recruiting scheduler and cancelled appt for [place] for this afternoon. Allergies As of Date: 05/08/2024 Noted Allergy Reaction IODINE 10/09/2002 14 - Other: See Comments Comments: ?decreased BP with iodinated contrast during a cardiac cath. Pt reports he was told by the white goods appliance tech that they almost lost him due to [...] (FLONASE) 50 mcg/actuation nasal spray Use 1 Howard in each nostril once daily. Rinse mouth after use. - Cholecalciferol, Vitamin D3, 2,000 unit cap Take 2 tablets by mouth once daily. - omega-3 fatty acids/vitamin e(FISH OIL 1,000 MG CAP) one tablet twice daily - multivitamins w-minerals/lut(CENTR UM SILVER TAB) One tablet daily Facility-Administere d Medications as of 05/08/2024 - perflutren lipid [...] disorder [G47.9] 07/26/2015 Coronary 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[place]*08/24/2015 Meniscus tear [S83.209A] 12/27/2015 Elevated blood [...] hand jodie (more content not included)... [facility]ON[facility]OO[facility] ([id number]) 1940 M Date Time Provider Department 05/08/24 ZINA DURAN [facility] During your visit today, we recorded the following information about you: Zina Duran APRN.RECOVERY ASSISTANT 05/08/2024 11:49 AM Signed Please let patient know their labs are WNL Olive Raphael OCCA 05/11/2024 11:02 AM Signed TC to patients , listed in chart to receive medical information, who verbalized understanding of below. asking that refills of atorvastatin and metoprolol be sent to pharmacy. Pended as such if provider agreeable. ROLAN 05/07/2024 NOV 02/08/2025 Zina Duran APRN.RECOVERY ASSISTANT 05/11/2024 1:04 PM Signed Please let patient know refills sent. Also Us results from [facility] negative for DVT ;however does show a likely popliteal cyst which could be causing pain. Recommend follow up with ortho. Autumn Mares MA 05/11/2024 1:07 PM Signed Left message for patient to return call to office RUSLAN NavasMayra corderoCHELLY 05/11/2024 2:31 PM Signed Patient returned call and went over results, notes from Zina Duran COMMUNITY [employer]S WORKER with understanding. Patient said he has appt on Saturday with Dr Caldwell at [facility] and requesting a copy of report be faxed. Printed and faxed to [phone] as requested. Allergies As of Date: 05/08/2024 Noted Allergy Reaction IODINE 10/09/2002 14 - Other: See Comments Comments: ?decreased BP with iodinated contrast during a cardiac cath. Pt reports he was told by the [employer] goods appliance tech that they almost lost him due to [...] hypertension [I10] Other Visit Diagnosis:Mixed hyperlipidemia [E78.2] Order(s):atorvastati n (LIPITOR) 80 mg tabletTake 1 tablet by [...] (FLONASE) 50 mcg/actuation nasal spray Use 1 Howard in each nostril once daily. Rinse mouth after use. - Cholecalciferol, Vitamin D3, 2,000 unit cap Take 2 tablets by mouth once daily. - omega-3 fatty acids/vitamin e(FISH OIL 1,000 MG CAP) one tablet twice daily - multivitamins w-minerals/lut(CENTR UM SILVER TAB) One tablet daily Facility-Administere d Medications as of 05/11/2024 - perflutren lipid [...] involving na (more content not included)... Normal [facility] Venous Duplex US - Claudy Extre mon 05-08-2024 Venous Duplex US - Claudy Extrem [facility] [address] [place] [address] Venous Duplex US - Claudy Extrem 05/08/24 1257 MR#: [id number] Acct: [id number] Name: SONIYA COOLEY Rep #: [id number] : 1940 83 From: Carloz Voss MD Attending Dr: Zina Duran, COMMUNITY ARTS WORKER-C Status: REG CLI Ordering Dr: Zina Duran COMMUNITY ARTS WORKER-C Date: 05/08/24 Location: [facility] Sex: M C [...] called and/or faxed to Zina Duran @ [phone] @ 13:20. VL/Venous Duplex US - Claudy [...] RVT 05/08/242250 Date Carloz Voss MD CC: COMMUNITY ARTS WORKER-C Zina Duran; Dr. Oniel Francis MD Date Dictated: 05/08/24 1257 Date Transcribed: 05/08/242250 Eeg Technician: Signed Normal [facility] CBC W Auto Differential pane l (Bld)on 05-07-2024 Basophils (Bld) [#/Vol] 0.05 10*3/uL Normal <0.11 [facility] Comment on above: Order Comment: Speci men Type: BLOOD SPECIMENOrdering Facility: [facility] Address: [address] [place] [address] Performed By: #### 5 7021-8 ####[facility] LABCLIA [id number] [place] [address] [place] Basophils/100 WBC (Bld) 0.8 % Normal C [facility] Comment on above: Order Comment: Speci men Type: BLOOD SPECIMENOrdering Facility: [facility] Address: [address] [place] [address] Performed By: #### 5 7021-8 ####[facility] LABCLIA [id number] [place] [address] [place] Differential cell count method Nom (Bld) Auto Normal [facility] Comment on above: Order Comment: Speci men Type: BLOOD SPECIMENOrdering Facility: [facility] Address: [address] [place] [address] Performed By: #### 5 7021-8 ####[facility] LABCLIA [id number] [place] [address] [place] Eosinophils (Bld) [#/Vol] 0.42 10*3/uL Normal <0.46 [facility] Comment on above: Order Comment: Speci men Type: BLOOD SPECIMENOrdering Facility: [facility] Address: [address] [place] [address] Performed By: #### 5 7021-8 ####[facility] LABCLIA [id number] [place] [address] [place] Eosinophils/100 WBC (Bld) 6.3 % Normal [facility] Comment on above: Order Comment: Speci men Type: BLOOD SPECIMENOrdering Facility: [facility] Address: [address] [place] [address] Performed By: #### 5 7021-8 ####[facility] LABCLIA [id number] [place] [address] [place] Erythrocyte distribution width (RBC) [Ratio] 12.8 % Normal 11.5-15.0 [facility] Comment on above: Order Comment: Speci men Type: BLOOD SPECIMENOrdering Facility: [facility] Address: [address] [place] [address] Performed By: #### 5 7021-8 ####[facility] LABCLIA [id number] [place] [address] [place] Hematocrit (Bld) [Volume fraction] 41.0 % Normal 39.0-51.0 [facility] Comment on above: Order Comment: Speci men Type: BLOOD SPECIMENOrdering Facility: [facility] Address: [address] [place] [address] Performed By: #### 5 7021-8 ####[facility] LABCLIA [id number] [place] [address] [place] Hemoglobin (Bld) [Mass/Vol] 13.7 g/dL Normal 13.0-17.0 [facility] Comment on above: Order Comment: Speci men Type: BLOOD SPECIMENOrdering Facility: [facility] Address: [address] [place] [address] Performed By: #### 5 7021-8 ####[facility] LABCLIA [id number] [place] [address] [place] Immature granulocytes (Bld) [#/Vol] 0.03 10*3/uL Normal <0.10 [facility] Comment on above: Order Comment: Speci men Type: BLOOD SPECIMENOrdering Facility: [facility] Address: [address] [place] [address] Performed By: #### 5 7021-8 ####[facility] LABCLIA [id number] [place] [address] [place] Immature granulocytes/100 WBC (Bld) 0.5 % Normal [facility] Comment on above: Order Comment: Speci men Type: BLOOD SPECIMENOrdering Facility: [facility] Address: [address] [place] [address] Performed By: #### 5 7021-8 ####[facility] LABCLIA [id number] [place] [address] [place] Lymphocytes (Bld) [#/Vol] 2.63 10*3/uL Normal 1.00-4.00 [facility] Comment on above: Order Comment: Speci men Type: BLOOD SPECIMENOrdering Facility: [facility] Address: [address] [place] [address] Performed By: #### 5 7021-8 ####[facility] LABCLIA [id number] [place] [address] [place] Lymphocytes/100 WBC (Bld) 39.5 % Normal [facility] Comment on above: Order Comment: Speci men Type: BLOOD SPECIMENOrdering Facility: [facility] Address: [address] [place] [address] Performed By: #### 5 7021-8 ####[facility] LABCLIA [id number] [place] [address] [place] MCH (RBC) [Entitic mass] 32.5 pg Normal 26.0-34.0 [facility] Comment on above: Order Comment: Speci men Type: BLOOD SPECIMENOrdering Facility: [facility] Address: [address] [place] [address] Performed By: #### 5 7021-8 ####[facility] LABCLIA [id number] [place] [address] [place] MCHC (RBC) [Mass/Vol] 33.4 g/dL Normal 30.5-36.0 [facility] Comment on above: Order Comment: Speci men Type: BLOOD SPECIMENOrdering Facility: [facility] Address: [address] [place] [address] Performed By: #### 5 7021-8 ####[facility] LABCLIA [id number] [place] [address] [place] MCV (RBC) [Entitic vol] 97.2 fL Normal 80.0-100.0 C [facility] Comment on above: Order Comment: Speci men Type: BLOOD SPECIMENOrdering Facility: [facility] Address: [address] [place] [address] Performed By: #### 5 7021-8 ####[facility] LABCLIA [id number] [place] [address] [place] Monocytes (Bld) [#/Vol] 0.66 10*3/uL Normal <0.87 [facility] Comment on above: Order Comment: Speci men Type: BLOOD SPECIMENOrdering Facility: [facility] Address: [address] [place] [address] Performed By: #### 5 7021-8 ####[facility] LABCLIA [id number] [place] [address] [place] Monocytes/100 WBC (Bld) 9.9 % Normal [facility] Comment on above: Order Comment: Speci men Type: BLOOD SPECIMENOrdering Facility: [facility] Address: [address] [place] [address] Performed By: #### 5 7021-8 ####[facility] LABCLIA [id number] [place] [address] [place] Neutrophils (Bld) [#/Vol] 2.86 10*3/uL Normal 1.45-7.50 [facility] Comment on above: Order Comment: Speci men Type: BLOOD SPECIMENOrdering Facility: [facility] Address: [address] [place] [address] Performed By: #### 5 7021-8 ####[facility] LABCLIA [id number] [place] [address] [place] Neutrophils/100 WBC (Bld) 43.0 % Normal [facility] Comment on above: Order Comment: Speci men Type: BLOOD SPECIMENOrdering Facility: [facility] Address: [address] [place] [address] Performed By: #### 5 7021-8 ####[facility] LABCLIA [id number] [place] [address] [place] Nucleated RBC (Bld) [#/Vol] 10*3/uL Normal <0.01 [facility] Comment on above: Order Comment: Speci men Type: BLOOD SPECIMENOrdering Facility: [facility] Address: [address] [place] [address] Performed By: #### 5 7021-8 ####[facility] LABIA [id number] [place] [address] [place] Nucleated RBC/100 WBC (Bld) [Ratio] 0.0 /100 WBC Normal [facility] Comment on above: Order Comment: Speci men Type: BLOOD SPECIMENOrdering Facility: [facility] Address: [address] [place] [address] Performed By: #### 5 7021-8 ####[facility] LABIA [id number] [place] [address] [place] Platelet mean volume (Bld) [Entitic vol] 11.5 fL Normal 9.0-12.7 [facility] Comment on above: Order Comment: Speci men Type: BLOOD SPECIMENOrdering Facility: [facility] Address: [address] [place] [address] Performed By: #### 5 7021-8 ####[facility] LABIA [id number] [place] [address] [place] Platelets (Bld) [#/Vol] 145 10*3/uL Low 150-400 [facility] Comment on above: Order Comment: Speci men Type: BLOOD SPECIMENOrdering Facility: [facility] Address: [address] [place] [address] Performed By: #### 5 7021-8 ####[facility] LABIA [id number] [place] [address] [place] RBC (Bld) [#/Vol] 4.22 10*6/uL Normal 4.20-6.00 [facility] Comment on above: Order Comment: Speci men Type: BLOOD SPECIMENOrdering Facility: [facility] Address: [address] [place] [address] Performed By: #### 5 7021-8 ####[facility] LABCLIA [id number] [address] [address] [place] WBC (Bld) [#/Vol] 6.65 10*3/uL Normal 3.70-11.00 [facility] Comment on above: Order Comment: Speci men Type: BLOOD SPECIMENOrdering Facility: [facility] Address: [address] [facility] [place] [address] Performed By: #### 5 7021-8 ####[facility] LABCLIA [id number] [address] [address] [place] CNOVon 05-07-2024 CNOV Office Visit (RYAN) SONIYA COOLEY ([id number]) 1940 M Date Time Provider Department 05/07/24 3:40 PM ZINA DURAN During your visit today, we recorded the following information about you: Pulse Respiration Blood pressure Weight 63/minute 16/minute 125/67 90.7 kg Zina Duran, BUCKLE INSPECTOR.RECOVERY ASSISTANT 05/07/2024 4:00 PM Signed Chief Complaint [...] () Meniscus tear 12/27/2015 Right, minimal. Seen [place] [facility]o Microscopic hematuria 01/10/2021 Saw [facility] 02/2021 [...] XCP H (more content not included)... Normal [facility] CNPGay 05-07-2024 CNPN Telephone (FAMPWS) SONIYA COOLEY ([id number]) 1940 M Date Time Provider Department 05/07/24 ZINA DURAN During your visit today, we recorded the following information about you: Sophie Collier 05/07/2024 4:57 PM Signed Pt called to check schedule in [place] for [place]. There are no appointments available here tomorrow. He would like to check at the [facility] if the order could be sent there to check appointment availability tomorrow. He kept the [place] appointment just in case we find that the [facility] can't accommodate tomorrow. Zina Duran APRN.RECOVERY ASSISTANT 05/07/2024 5:04 PM Signed Please check to see if [facility] has availability. If so please fax order. Autumn Mares MA 05/08/2024 9:12 AM Signed Referral placed. Waiting to hear back from pre access if approved RUSLAN Navas Brittany, MA 05/08/2024 9:28 AM Signed Approval received. Pt will call [facility] to schedule Autumn Mares MA Allergies As of Date: 05/07/2024 Noted Allergy Reaction IODINE 10/09/2002 14 - Other: See Comments Comments: ?decreased BP with iodinated contrast during a cardiac cath. Pt reports he was told by the [employer] appliance tech that they almost lost him due to [...] (FLONASE) 50 mcg/actuation nasal spray Use 1 Howard in each nostril once daily. Rinse mouth after use. - Cholecalciferol, Vitamin D3, 2,000 unit cap Take 2 tablets by mouth once daily. - omega-3 fatty acids/vitamin e(FISH OIL 1,000 MG CAP) one tablet twice daily - multivitamins w-minerals/lut(CENTR UM SILVER TAB) One tablet daily Facility-Administere d Medications as of 05/08/2024 - perflutren lipid [...] disorder [G47.9] 07/26/2015 Coronary 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[place]*08/24/2015 Meniscus tear [S83.209A] 12/27/2015 Elevated blood [...] of maligna (more content not included)... Normal [facility] Comprehensive metabolic 2000 panelon 05-07-2024 Albumin [Mass/Vol] 4.2 g/dL Normal 3.9-4.9 [facility] Comment on above: Order Comment: Speci men Type: BLOOD SPECIMENOrdering Facility: [facility] Address: [address] [place] [address] Performed By: #### 2 777-1, 27982-6, 35128-5 ####[facility] LABCLIA [id number] [place] [address] [place] ALP [Catalytic activity/Vol] 103 U/L Normal 38-113 [facility] Comment on above: Order Comment: Speci men Type: BLOOD SPECIMENOrdering Facility: [facility] Address: [address] [place] [address] Performed By: #### 2 777-1, , ####[facility] LABCLIA [id number] [place] [id number] [place] ALT [Catalytic activity/Vol] 11 U/L Normal 10-54 [facility] Comment on above: Order Comment: Speci men Type: BLOOD SPECIMENOrdering Facility: [facility] Address: [address] [place] [address] Performed By: #### 2 777-1, , ####[facility] LABCLIA [id number] [place] [address] [place] Anion gap [Moles/Vol] 9 mmol/L Normal 8-15 [facility] Comment on above: Order Comment: Speci men Type: BLOOD SPECIMENOrdering Facility: [facility] Address: [address] [place] [address] Performed By: #### 2 777-1, , ####[facility] LABCLIA [id number] [place] [address] [place] AST [Catalytic activity/Vol] 26 U/L Normal 14-40 [facility] Comment on above: Order Comment: Speci men Type: BLOOD SPECIMENOrdering Facility: [facility] Address: [address] [place], [place] [address] Performed By: #### 2 777-1, , ####[facility] LABCLIA [id number] [place] [id number] [place] Bilirubin [Mass/Vol] 0.4 mg/dL Normal 0.2-1.3 [facility] Comment on above: Order Comment: Speci men Type: BLOOD SPECIMENOrdering Facility: [facility] Address: [address] [place], [place] [address] Performed By: #### 2 777-1, 33556-6, ####[facility] LABCLIA [id number] [place] [id number] [place] Calcium [Mass/Vol] 9.1 mg/dL Normal 8.5-10.2 [facility] Comment on above: Order Comment: Speci men Type: BLOOD SPECIMENOrdering Facility: [facility] Address: [address] [place] [address] Performed By: #### 2 777-1, 45292-5, ####[facility] LABCLIA [id number] [place] [address] [place] Chloride [Moles/Vol] 107 mmol/L Normal 98-107 [facility] Comment on above: Order Comment: Speci men Type: BLOOD SPECIMENOrdering Facility: [facility] Address: [address] [place], [place] [address] Performed By: #### 2 777-1, , ####[facility] LABIA [id number] [place] [address] [place] CO2 [Moles/Vol] 24 mmol/L Normal 22-30 [facility] Comment on above: Order Comment: Speci men Type: BLOOD SPECIMENOrdering Facility: [facility] Address: [address] [place] [address] Performed By: #### 2 777-1, 82166-8, ####[facility] LABCLIA [id number] [place] [id number] [place] Creatinine [Mass/Vol] 0.72 mg/dL Low 0.73-1.22 [facility] Comment on above: Order Comment: Speci men Type: BLOOD SPECIMENOrdering Facility: [facility] Address: [address] [place] [address] Performed By: #### 2 777-1, 15564-7, ####[facility] LABIA [id number] [place] [address] [place] Creatinine and Glomerular filtration rate.predicted panel (S/P/Bld) 91 mL/min/1.73m??? Normal >=60 [facility] Comment on above: Order Comment: Myles gottlieb Type: BLOOD SPECIMENOrdering Facility: [facility] Address: [address] [place] [address] Result Comment: Janae mated Glomerular Filtration Rate [...] reflect actual GFR. Performed By: #### 2 777-1, 70773-0, ####[facility] LABIA [id number] [place] [address] [place] Glucose [Mass/Vol] 141 mg/dL High 74-99 [facility] Comment on above: Order Comment: Myles gottlieb Type: BLOOD SPECIMENOrdering Facility: [facility] Address: [address] [place] [address] Result Comment: The [place] Diabetes [employer] (ADA) provides guidance for cutoff [...] Standards of Medical Care in Diabetes 2016, [place] [employer]. Diabetes Care. 2016.39(Suppl 1). Performed By: #### 2 777-1, , ####[facility] LABCLIA [id number] [address] [address] [place] Potassium [Moles/Vol] 4.1 mmol/L Normal 3.7-5.1 [facility] Comment on above: Order Comment: Speci men Type: BLOOD SPECIMENOrdering Facility: [facility] Address: [address] [place] [address] Performed By: #### 2 777-1, , ####[facility] LABCLIA [id number] [address] [address] [place] Protein [Mass/Vol] 6.6 g/dL Normal 6.3-8.0 [facility] Comment on above: Order Comment: Speci men Type: BLOOD SPECIMENOrdering Facility: [facility] Address: [address] [place] [address] Performed By: #### 2 777-1, , ####[facility] LABCLIA [id number] [address] [address] [place] Sodium [Moles/Vol] 140 mmol/L Normal 136-144 [facility] Comment on above: Order Comment: Speci men Type: BLOOD SPECIMENOrdering Facility: [facility] Address: [address] [place] [address] Performed By: #### 2 777-1, , ####[facility] LABCLIA [id number] [address] [address] [place] Urea nitrogen [Mass/Vol] 20 mg/dL Normal 9-24 [facility] Comment on above: Order Comment: Speci men Type: BLOOD SPECIMENOrdering Facility: [facility] Address: [address] [place] [address] Performed By: #### 2 777-1, , ####[facility] LABCLIA [id number] [address] [address] [place] Magnesium [facility] Magnesium [Mass/Vol] 2.3 mg/dL Normal 1.7-2.3 [facility] Comment on above: Order Comment: Speci men Type: BLOOD SPECIMENOrdering Facility: [facility] Address: [address] [place] [address] Performed By: #### 2 777-1, 50759-5, ####[facility] LABIA [id number] [place] [id number] [place] Phosphate SerPl-mCncon 05-07 Phosphate [Mass/Vol] 2.7 mg/dL Normal 2.7-4.8 [facility] Comment on above: Order Comment: Speci men Type: BLOOD SPECIMENOrdering Facility: [facility] Address: [address] [place] [address] Performed By: #### 2 777-1, 00728-6, ####[facility] [id number] [place] [id number] [place] CNOVon 04-07-2024 [facility] ([id number]) 1940 M Date Time Provider Department 04/07/24 10:40 AM [facility] During your visit today, we recorded [...] Meniscus tear Comment: Right, minimal. Seen [place] [facility] 01/10/2021: Microscopic hematuria Comment: Saw [facility] 02/2021 and felt further w/u not warranted. 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 Normal [facility] CNPNon 04-07-2024 CNPN Telephone (FAMPWS) SONIYA COOLEY ([id number]) 1940 M Date Time Provider Department 04/07/24 [facility] During your visit today, we recorded the following information about you: Ella Valdovinos PA-C 04/07/2024 11:14 AM Signed Ordering labs for next year's wellness exam. Ella Valdovinos PA-C Allergies As of Date: 04/07/2024 Noted Allergy Reaction IODINE 10/09/2002 14 - Other: See Comments Comments: ?decreased BP with iodinated contrast during a cardiac cath. Pt reports he was told by the white goods appliance tech that they almost lost him due to his reaction and was allergic reaction. The patient reports taking 13 hour allergy premedications in the past with Iodinated contrast without experiencing any breakthrough reaction. PENICILLIN G 10/09/2002 4 - Hives Date Reviewed: 04/07/2024 Reviewed by: Keren Sykes LPN - Fully Assessed Reason for Visit: Orders [681] Primary Visit Diagnosis:Mixed hyperlipidemia [E78.2] Other Visit Diagnoses:Essential hypertension [I10] B12 deficiency [E53.8] Elevated blood sugar [R73.9] Acquired hypothyroidism [E03.9] Vitamin D deficiency [E55.9] Order(s):LIPID PANEL, NONFASTING [SQLIPNF] Order #: [id number] FUTURE URINALYSIS, WITH MICROSCOPIC [SQUAWMIC] Order #: [id number] FUTURE COMPREHENSIVE METABOLIC PANEL [SQCMP] Order #: [id number] FUTURE HEMOGLOBIN A1C [WJFRE4Y] Order #: [id number] FUTURE THYROID STIMULATING HORMONE [SQTSH] Order #: [id number] FUTURE VITAMIN D 25 HYDROXY [SQVITD] Order #: [id number] FUTURE VITAMIN B12 [SQB12] Order #: [id number] FUTURE COMPLETE BLOOD COUNT AND DIFFERENTIAL [SQCBCDIF] Order #: [id number] FUTURE Prescriptions as of 04/07/2024 - tamsulosin [...] (FLONASE) 50 mcg/actuation nasal spray Use 1 Howard in each nostril once daily. Rinse mouth after use. - Cholecalciferol, Vitamin D3, 2,000 unit cap Take 2 tablets by mouth once daily. - omega-3 fatty acids/vitamin e(FISH OIL 1,000 MG CAP) one tablet twice daily - multivitamins w-minerals/lut(CENTR UM SILVER TAB) One tablet daily Facility-Administere d Medications as of 04/07/2024 - perflutren lipid microspheres 1.3 mL in NaCl (PF) 0.9% 10 mL injection (DEFINITY) - sodium chloride 0.9 % (flush) 10 mL (BD POSIFLUSH) Meds Comments as of 11/04/2018: 11/04/18 The medications are managed by this patient by: PATIENT and SPOUSE Rhea Irwin Rupert Pharm-T Problem List As Of Date 04/07/2024 [...] disorder [G47.9] 07/26/2015 Coronary 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[place]*08/24/2015 Meniscus tear [S83.209A] 12/27/2015 Elevated blood [...] (HCC) [D68. (more content not included)... Normal [facility] .Auto Diffon 02-19-2024 Basophil, Absolute 0.0 10 3/mcL Normal 0.0-0.2 [facility] ([place] Comment on above: Performed By: #### A BOGEL, ANEU, CBC, GFR, ADIFF, ABSGEL, BMP, ALB #### [address] [address] Basophils/100 WBC (Bld) 0.0 % Normal 0.0-2.5 A [facility] ([place]) Comment on above: Performed By: #### A BOGEL, ANEU, CBC, GFR, ADIFF, ABSGEL, BMP, ALB #### [address] [address] Eosinophil, Absolute 0.0 10 3/mcL Normal 0.0-0.4 [facility] ([place] Comment on above: Performed By: #### A BOGEL, ANEU, CBC, GFR, ADIFF, ABSGEL, BMP, ALB #### [address] [address] Eosinophils/100 WBC (Bld) 0.0 % Normal 0.0-7.0 [facility] ([place] Comment on above: Performed By: #### A BOGEL, ANEU, CBC, GFR, ADIFF, ABSGEL, BMP, ALB #### [address] [address] Lymphocyte, Absolute 1.2 10 3/mcL Normal 0.8-3.9 [facility] ([place] Comment on above: Performed By: #### A BOGEL, ANEU, CBC, GFR, ADIFF, ABSGEL, BMP, ALB #### [address] [address] Lymphocytes/100 WBC (Bld) 8.8 % Low 10.0-50.0 [facility] ([place] Comment on above: Performed By: #### A BOGEL, ANEU, CBC, GFR, ADIFF, ABSGEL, BMP, ALB #### [address] [address] Monocyte, Absolute 0.6 10 3/mcL Normal 0.2-1.0 [facility] [place] Comment on above: Performed By: #### A BOGEL, ANEU, CBC, GFR, ADIFF, ABSGEL, BMP, ALB #### [address] [address] Monocytes/100 WBC (Bld) 4.7 % Normal 1.7-13.0 A [facility] ([place] Comment on above: Performed By: #### A BOGEL, ANEU, CBC, GFR, ADIFF, ABSGEL, BMP, ALB #### [address] [address] Neutrophils/100 WBC (Bld) 86.5 % High 37.0-80.0 [facility] ([place] Comment on above: Performed By: #### A BOGEL, ANEU, CBC, GFR, ADIFF, ABSGEL, BMP, ALB #### [address] [address] .GFRon 02-19-2024 GFR 95 ml/min/1.73sqm Normal [facility] ([place] Comment on above: Result Comment: GFR Population [...] CBC, GFR, ADIFF, ABSGEL, BMP, ALB #### [address] [address] GFR Non- 79 ml/min/1.73sqm Normal [facility] ([place] Comment on above: Result Comment: GFR Population [...] mL/min/1.73 square meters Performed By: #### A JAMIEEL, ANEU, CBC, GFR, ADIFF, ABSGEL, BMP, ALB #### [address] [address] .NEUABSon 02-19-2024 Neutrophil, Absolute 11.7 10 3/mcL High 2.9-6.2 [facility] ([place] Comment on above: Performed By: #### A BOGEL, ANEU, CBC, GFR, ADIFF, ABSGEL, BMP, ALB #### [address] [address] BMPon 02-19-2024 BUN/Creatinine Ratio 25 ratio Normal 7-27 [facility] ([place] Comment on above: Performed By: #### A BOGEL, ANEU, CBC, GFR, ADIFF, ABSGEL, BMP, ALB #### [address] [address] Calcium [Mass/Vol] 8.9 mg/dL Normal 8.4-10.2 [facility] ([place] Comment on above: Performed By: #### A BOGEL, ANEU, CBC, GFR, ADIFF, ABSGEL, BMP, ALB #### [address] [address] Chloride [Moles/Vol] 105 mmol/L Normal 98-107 [facility] ([place] Comment on above: Performed By: #### A BOGEL, ANEU, CBC, GFR, ADIFF, ABSGEL, BMP, ALB #### [address] [address] CO2 [Moles/Vol] 26 mmol/L Normal 23-31 [facility] ([place] Comment on above: Performed By: #### A BOGEL, ANEU, CBC, GFR, ADIFF, ABSGEL, BMP, ALB #### [address] [address] Creatinine [Mass/Vol] 0.92 mg/dL Normal 0.70-1.30 [facility] ([place] Comment on above: Performed By: #### A BOGEL, ANEU, CBC, GFR, ADIFF, ABSGEL, BMP, ALB #### [address] [address] Electrolyte Balance 8.0 mEq/L Normal 4.0-15.0 [facility] ([place]) Comment on above: Performed By: #### A BOGEL, ANEU, CBC, GFR, ADIFF, ABSGEL, BMP, ALB #### [address] [address] Glucose [Mass/Vol] 131 mg/dL High 83-110 [facility] ([place] Comment on above: Performed By: #### A BOGEL, ANEU, CBC, GFR, ADIFF, ABSGEL, BMP, ALB #### [address] [address] Potassium [Moles/Vol] 4.2 mmol/L Normal 3.5-5.1 [facility] ([place] Comment on above: Performed By: #### A BOGEL, ANEU, CBC, GFR, ADIFF, ABSGEL, BMP, ALB #### [address] [address] Sodium [Moles/Vol] 139 mmol/L Normal 136-145 [facility] ([place] Comment on above: Performed By: #### A BOGEL, ANEU, CBC, GFR, ADIFF, ABSGEL, BMP, ALB #### [address] [address] Urea nitrogen [Mass/Vol] 23 mg/dL High 7-18 [facility] ([place] Comment on above: Performed By: #### A BOGEL, ANEU, CBC, GFR, ADIFF, ABSGEL, BMP, ALB #### [address] [address] CBCon 02-19-2024 Erythrocyte distribution width (RBC) [Ratio] 13.7 % Normal 11.5-14.5 [facility] ([place] Comment on above: Performed By: #### G FR, ADIFF, CBC, ANEU, BMP #### [address] [address] Hematocrit (Bld) [Volume fraction] 37.1 % Low 42.0-52.0 [facility] ([place] Comment on above: Performed By: #### G FR, ADIFF, CBC, ANEU, BMP #### [address] [address] Hgb 12.7 G/dL Low 14.0-18.0 [facility] ([place] Comment on above: Performed By: #### G FR, ADIFF, CBC, ANEU, BMP #### [address] [address] MCH (RBC) [Entitic mass] 33.1 pg High 27.0-31.2 [facility] ([place] Comment on above: Performed By: #### G FR, ADIFF, CBC, ANEU, BMP #### [address] [address] MCHC 34.2 G/dL Normal 31.8-35.4 [facility] ([place] Comment on above: Performed By: #### G FR, ADIFF, CBC, ANEU, BMP #### [address] [address] MCV (RBC) [Entitic vol] 96.7 fL High 80.0-94.0 A [facility] ([place] Comment on above: Performed By: #### G FR, ADIFF, CBC, ANEU, BMP #### [address] [address] Platelet 135 10 3/mcL Normal 130-400 [facility] ([place] Comment on above: Performed By: #### G FR, ADIFF, CBC, ANEU, BMP #### [address] [address] Platelet mean volume (Bld) [Entitic vol] 9.4 fL Normal 7.4-10.4 [facility] ([place] Comment on above: Performed By: #### G FR, ADIFF, CBC, ANEU, BMP #### [place] [address] RBC 3.84 10 6/mcL Low 4.04-6.13 [facility] ([place] Comment on above: Performed By: #### G FR, ADIFF, CBC, ANEU, BMP #### [address] [address] WBC 13.6 10 3/mcL High 4.6-10.8 [facility] ([place] Comment on above: Performed By: #### G FR, ADIFF, CBC, ANEU, BMP #### [address] [address] LABORATORYOrdered By: SYSTEM SYSTEM on 02-19-2024 Basophil, [...] 02-18-2024 ABO/Rh Interp Positive Invalid Interpretation Code [facility] ([place] Comment on above: Performed By: #### A BOGZAYNAB, ANEU, CBC, GFR, ADIFF, ABSGEL, BMP, ALB #### [place] [address] [place], [place] [address] ABS (Gel)on 02-18-2024 ABSC Interp (Gel) Negative Normal [facility] ([place] Comment on above: Performed By: #### A BOGEL, ANEU, CBC, GFR, ADIFF, ABSGEL, BMP, ALB #### [address] [place], [place] [address] LABORATORYOrdered By: Pee Leavitt on 02-18-2024 ABO [...] Date: 02/18/2024 3:48:22 PM Ordering Provider: DEAN CALDWELL Normal [facility] ([place] XR Chest PA and Lateralon IMPRESSION: Overall unremarkable exam with no acute radiographic abnormality. [facility] Transcribe Date/Time: Feb 02 2024 10:25A Dictated by : MAGO RAINEY MD This examination was interpreted and the report reviewed and electronically signed by: MAGO RAINEY MD on Feb 02 2024 10:26AM [facility] DIVISION OF RADIOLOGY * * *Final [...] soft tissues: Unremarkable. DIVISION OF RADIOLOGY Provider, [facility] [place] - 02/02/2024 * * *Final Report* * [...] unremarkable exam with no acute radiographic abnormality. Eeg Technician: [facility] Transcribe Date/Time: Feb 02 2024 10:25A Dictated by : MAGO RAINEY MD This examination was interpreted and the report reviewed and electronically signed by: MAGO RAINEY MD on Feb 02 2024 10:26AM EST [facility] XR Chest PA and LateralOrder ed By: Ccf Provider on 02-02-2024 [facility] XR Chest PA and Lateralon Radiology Study observation (narrative) [facility] .Auto Diffon 01-27-2024 Basophil, Absolute 0.0 10 3/mcL Normal 0.0-0.2 [facility] ([place]) Comment on above: Performed By: #### A BOGEL, ANEU, CBC, GFR, ADIFF, ABSGEL, BMP, ALB #### [address] [address] Basophils/100 WBC (Bld) 0.4 % Normal 0.0-2.5 A [facility] ([place] Comment on above: Performed By: #### A BOGEL, ANEU, CBC, GFR, ADIFF, ABSGEL, BMP, ALB #### [address] [address] Eosinophil, Absolute 0.4 10 3/mcL Normal 0.0-0.4 [facility] ([place] Comment on above: Performed By: #### A BOGEL, ANEU, CBC, GFR, ADIFF, ABSGEL, BMP, ALB #### [address] [address] Eosinophils/100 WBC (Bld) 5.5 % Normal 0.0-7.0 [facility] ([place] Comment on above: Performed By: #### A BOGEL, ANEU, CBC, GFR, ADIFF, ABSGEL, BMP, ALB #### [address] [address] Lymphocyte, Absolute 2.7 10 3/mcL Normal 0.8-3.9 [facility] ([place] Comment on above: Performed By: #### A BOGEL, ANEU, CBC, GFR, ADIFF, ABSGEL, BMP, ALB #### [address] [address] Lymphocytes/100 WBC (Bld) 40.8 % Normal 10.0-50.0 [facility] ([place] Comment on above: Performed By: #### A BOGEL, ANEU, CBC, GFR, ADIFF, ABSGEL, BMP, ALB #### [address] [address] Monocyte, Absolute 0.7 10 3/mcL Normal 0.2-1.0 [facility] ([place] Comment on above: Performed By: #### A BOGEL, ANEU, CBC, GFR, ADIFF, ABSGEL, BMP, ALB #### [address] [address] Monocytes/100 WBC (Bld) 10.3 % Normal 1.7-13.0 A [facility] ([place] Comment on above: Performed By: #### A [place], CBC, GFR, ADIFF, ABSGEL, BMP, ALB #### [address] [address] Neutrophils/100 WBC (Bld) 43.0 % Normal 37.0-80.0 [facility] [place] Comment on above: Performed By: #### A ARA ANEU, CBC, GFR, ADIFF, ABSGEL, BMP, ALB #### [address] [address] .GFRon 01-27-2024 GFR 121 ml/min/1.73sqm Normal [facility] ([place] Comment on above: Result Comment: GFR Population [...] mL/min/1.73 square meters Performed By: #### A [place], CBC, GFR, ADIFF, ABSGEL, BMP, ALB #### [address] [address] GFR Non- 100 ml/min/1.73sqm Normal [facility] ([place] Comment on above: Result Comment: GFR Population [...] CBC, GFR, ADIFF, ABSGEL, BMP, ALB #### [address] [address] .NEUABSon 01-27-2024 Neutrophil, Absolute 2.9 10 3/mcL Normal 2.9-6.2 [facility] ([place] Comment on above: Performed By: #### A BOGEL, ANEU, CBC, GFR, ADIFF, ABSGEL, BMP, ALB #### [address] [address] ABO/Rh (Gel)on 01-27-2024 ABO/Rh Interp Positive Invalid Interpretation Code [facility] [place] Comment on above: Order Comment: SURG PEPITO 7/16 -AC Performed By: #### A BOGEL, ANEU, CBC, GFR, ADIFF, ABSGEL, BMP, ALB #### [address] [address] ABS (Gel)on 01-27-2024 ABSC Interp (Gel) Negative Normal [facility] [place] Comment on above: Order Comment: SURG PEPITO 7/16 -AC Performed By: #### A BOGEL, ANEU, CBC, GFR, ADIFF, ABSGEL, BMP, ALB #### [address] [address] ALBon 01-27-2024 Albumin Level 3.9 G/dL Normal 3.4-4.8 [facility] ([place] Comment on above: Performed By: #### A BOGEL, ANEU, CBC, GFR, ADIFF, ABSGEL, BMP, ALB #### [address] [address] BMPon 01-27-2024 BUN/Creatinine Ratio 28 ratio High 7-27 [facility] ([place] Comment on above: Performed By: #### A BOGEL, ANEU, CBC, GFR, ADIFF, ABSGEL, BMP, ALB #### [address] [address] Calcium [Mass/Vol] 8.8 mg/dL Normal 8.4-10.2 [facility] ([place] Comment on above: Performed By: #### A BOGEL, ANEU, CBC, GFR, ADIFF, ABSGEL, BMP, ALB #### [address] [address] Chloride [Moles/Vol] 104 mmol/L Normal 98-107 [facility] ([place] Comment on above: Performed By: #### A BOGEL, ANEU, CBC, GFR, ADIFF, ABSGEL, BMP, ALB #### [address] [address] CO2 [Moles/Vol] 30 mmol/L Normal 23-31 [facility] ([place] Comment on above: Performed By: #### A BOGEL, ANEU, CBC, GFR, ADIFF, ABSGEL, BMP, ALB #### [address] [address] Creatinine [Mass/Vol] 0.75 mg/dL Normal 0.70-1.30 [facility] ([place] Comment on above: Performed By: #### A BOGEL, ANEU, CBC, GFR, ADIFF, ABSGEL, BMP, ALB #### [address] [address] Electrolyte Balance 7.0 mEq/L Normal 4.0-15.0 [facility] ([place] Comment on above: Performed By: #### A BOGEL, ANEU, CBC, GFR, ADIFF, ABSGEL, BMP, ALB #### [address] [address] Glucose [Mass/Vol] 113 mg/dL High 83-110 [facility] ([place] Comment on above: Performed By: #### A BOGEL, ANEU, CBC, GFR, ADIFF, ABSGEL, BMP, ALB #### [address] [address] Potassium [Moles/Vol] 4.4 mmol/L Normal 3.5-5.1 [facility] ([place] Comment on above: Performed By: #### A BOGEL, ANEU, CBC, GFR, ADIFF, ABSGEL, BMP, ALB #### [address] [address] Sodium [Moles/Vol] 141 mmol/L Normal 136-145 [facility] ([place] Comment on above: Performed By: #### A BOGEL, ANEU, CBC, GFR, ADIFF, ABSGEL, BMP, ALB #### [address] [address] Urea nitrogen [Mass/Vol] 21 mg/dL High 7-18 [facility] ([place] Comment on above: Performed By: #### A BOGEL, ANEU, CBC, GFR, ADIFF, ABSGEL, BMP, ALB #### [address] [address] CBCon 01-27-2024 Erythrocyte distribution width (RBC) [Ratio] 13.8 % Normal 11.5-14.5 [facility] ([place] Comment on above: Order Comment: Pre-A dmission Testing Performed By: #### A BOGEL, ANEU, CBC, GFR, ADIFF, ABSGEL, BMP, ALB #### [address] [address] Hematocrit (Bld) [Volume fraction] 43.2 % Normal 42.0-52.0 [facility] [place] Comment on above: Order Comment: Pre-A dmission Testing Performed By: #### A BOGEL, ANEU, CBC, GFR, ADIFF, ABSGEL, BMP, ALB #### [address] [address] Hgb 15.2 G/dL Normal 14.0-18.0 [facility] [place] Comment on above: Order Comment: Pre-A dmission Testing Performed By: #### A BOGEL, ANEU, CBC, GFR, ADIFF, ABSGEL, BMP, ALB #### [address] [address] MCH (RBC) [Entitic mass] 33.8 pg High 27.0-31.2 [facility] ([place] Comment on above: Order Comment: Pre-A dmission Testing Performed By: #### A BOGEL, ANEU, CBC, GFR, ADIFF, ABSGEL, BMP, ALB #### [address] [address] MCHC 35.1 G/dL Normal 31.8-35.4 [facility] ([place] Comment on above: Order Comment: Pre-A dmission Testing Performed By: #### A BOGEL, ANEU, CBC, GFR, ADIFF, ABSGEL, BMP, ALB #### [address] [address] MCV (RBC) [Entitic vol] 96.3 fL High 80.0-94.0 A [facility] ([place] Comment on above: Order Comment: Pre-A dmission Testing Performed By: #### A BOGEL, ANEU, CBC, GFR, ADIFF, ABSGEL, BMP, ALB #### [address] [address] Platelet 147 10 3/mcL Normal 130-400 [facility] ([place] Comment on above: Order Comment: Pre-A dmission Testing Performed By: #### A BOGEL, ANEU, CBC, GFR, ADIFF, ABSGEL, BMP, ALB #### [address] [address] Platelet mean volume (Bld) [Entitic vol] 10.2 fL Normal 7.4-10.4 [facility] ([place] Comment on above: Order Comment: Pre-A dmission Testing Performed By: #### A BOGEL, ANEU, CBC, GFR, ADIFF, ABSGEL, BMP, ALB #### [address] [address] RBC 4.49 10 6/mcL Normal 4.04-6.13 [facility] ([place] Comment on above: Order Comment: Pre-A dmission Testing Performed By: #### A BOGEL, ANEU, CBC, GFR, ADIFF, ABSGEL, BMP, ALB #### [address] [address] WBC 6.7 10 3/mcL Normal 4.6-10.8 [facility] ([place] Comment on above: Order Comment: Pre-A dmission Testing Performed By: #### A BOGEL, ANEU, CBC, GFR, ADIFF, ABSGEL, BMP, ALB #### [address] [place], [place] [address] CT KNEE W/O CONTRAST LEFTon 01-27-2024 CT [...] 01/27/2024 1:37:20 PM Ordering Provider: DEAN Rivas [facility] ([place]) LABORATORYOrdered By: Reg Heck on 01-27-2024 ABO [...] 1 (01/27/24 11:50 AM) Normal Not Detected [facility] Comment on above: Result Comment: [place] [id number] MRSA PCR Int MRSA DNA not detected by Real-Time Polymerase [...] may not be reproducible. Invalid Interpretation Code Auto Viro/Sero SS MRSAPCRon 01-27-2024 MRSA (PCR) Not detected Normal Not Detected [facility] ([place] Comment on above: Result Comment: [place] [id number] Performed By: #### A BOGEL, ANEU, CBC, GFR, ADIFF, ABSGEL, BMP, ALB #### [place] [address] [place], [place] [address] MRSA PCR Int Normal [facility] ([place] Comment on above: Result Comment: MRSA DNA [...] reproducible. See Below Performed By: #### A BOGEL, ANEU, CBC, GFR, ADIFF, ABSGEL, BMP, ALB #### [facility] [address] [place], [place] [address] XR Chest PA and Lateralon IMPRESSION: Questionable vague hazy opacity in the left midlung. Consider short-term follow-up. Eeg Technician: GEOFFREY Transcribe Date/Time: Dec 14 2023 1:30P Dictated by : JAGUAR GONZALES MD This examination was interpreted and the report reviewed and electronically signed by: JAGUAR GONZALES MD on Dec 14 2023 1:32PM [facility] DIVISION OF RADIOLOGY * * *Final [...] from median sternotomy. DIVISION OF RADIOLOGY Provider, [facility] - 12/14/2023 * * *Final Report* * [...] in the left midlung. Consider short-term follow-up. Eeg Technician: PSCB Transcribe Date/Time: Dec 14 2023 1:30P Dictated by : JAGUAR GONZALES MD This examination was interpreted and the report reviewed and electronically signed by: JAGUAR GONZALES MD on Dec 14 2023 1:32PM EST [facility] Radiology Study observation (narrative) [facility] XR Chest PA and LateralOrder ed By: Ccf Provider on 12-14-2023 [facility] TSH BLDon 06-23-2022 TSH Qn 1.610 m[IU]/L 0.270 - 4.200 mIU/L [facility] HbA1c (Bld)on 06-22-2022 Average glucose Estimated from glycated hemoglobin (Bld) [Mass/Vol] 117 mg/dL [facility] HbA1c (Bld) [Mass fraction] 5.7 % High 4.3 - 5.6 % [facility] CNPNon 12-16-2020 CNPN Telephone ([employer]) SONIYA COOLEY ([id number]) 1940 M Date Time Provider Department 12/16/20 ABBY PATE During your visit today, we recorded the following information about you: Michelle Blackmon Ma 12/16/2020 4:00 PM Signed Physical Therapy order faxed to Amy at [facility] PT at [phone]. Michelle Blackmon [facility] ([facility]) Allergies As of Date: 12/16/2020 Noted Allergy Reaction IODINE 10/09/2002 14 - Other: See Comments Comments: ?decreased BP with iodinated contrast during a cardiac cath. Pt reports he was told by the white goods appliance tech that they almost lost him due to [...] * FLUTICASONE PROPIONATE 50 MCG* Use 1 Howard in each nostril o* CHOLECALCIFEROL (VITAMIN D3) [...] MICHELLE BLACKMON MA on 12/16/20 [facility] [place] 10-06-2020 WILLIAM Office Visit (CODY) SONIYA COOLEY ([id number]) 1940 M Date Time Provider Department 10/06/20 11:00 AM ABBY PATE During your visit today, we recorded the following information about you: Pulse Blood pressure Weight Height 52/minute 142/90 87.6 kg 1.702 m Abby Pate MD 10/20/2020 9:53 PM Signed FOLLOW UP NOTE Subjective Soniya Cooley [...] one tablet twice daily 0 - multivitamins w-minerals/lut(CENTR UM SILVER TAB) One tablet daily 0 - acetaminophen (TYLENOL) 500 mg tablet Take 1,000 mg by mouth every 8 hours as needed for Pain. - fluticasone (FLONASE) 50 mcg/actuation nasal spray Use 1 Howard in each nostril once daily. Rinse mouth after use. (Patient not taking: Reported on 10/06/2020 ) 1 Bottle 5 No current facility-administere d medications for this visit. REVIEW OF SYSTEMS [...] included)... Normal [facility] CNOVon 06-03-2020 [facility] Office Visit (CODY) RITASONIYA BLUE ([id number]) 1940 M Date Time Provider Department 06/03/20 [...] (FLONASE) 50 mcg/actuation nasal spray Use 1 Howard in each nostril once daily. Rinse mouth [...] one tablet twice daily 0 - multivitamins w-minerals/lut(CENTR UM SILVER TAB) One tablet daily 0 No current facility-administere d medications for this visit. REVIEW OF SYSTEMS [...] Coag RelTime (Bld) 1.40 {INR} High 0.90-1.10 [facility] Comment on above: Result Comment: Brayan dard Therapy 2.0-3.0 High Dose 2.5-3.5 Performed By: #### P INR #### [address] [address] Vital Signs Date Time Vital Sign Value Performing Clinician Facility 04-08-2025 13:42-0400 Body temperature 97.6 [degF] Dr. Oniel Francis MD Work Phone: 3(046)[phone] [place] [address] 04-08-2025 13:42-0400 Diastolic blood pressure 62 mm[Hg] Dr. Oniel Francis MD Work Phone: 7(440)598-035966 [place] [address] 04-08-2025 13:42-0400 Heart rate 66 /min Dr. Oniel Francis MD Work Phone: 4(394)893-224466 [place] [address] 04-08-2025 13:42-0400 Respiratory rate 16 /min Dr. Oniel Francis MD Work Phone: 5(113)098-072266 [place] [address] 04-08-2025 13:42-0400 SaO2% (BldA) [Mass fraction] 94 % Dr. Oniel Francis MD Work Phone: 1(238)024-408866 [place] [address] 04-08-2025 13:42-0400 Systolic blood pressure 114 mm[Hg] Dr. Oniel Francis MD Work Phone: 1(391)530-184566 [place] [address] 04-08-2025 07:05-0400 Inhaled oxygen flow rate 2 L/min Dr. Oniel Francis MD Work Phone: 8(438)917-981666 [place] [address] 04-07-2025 15:42-0400 Body height 170.[address] Oniel Francis MD Work Phone: 2(139)303-162866 [place] [address] 04-07-2025 15:42-0400 Body mass index (BMI) [Ratio] 29.3 kg/m2 Dr. Oniel Francis MD Work Phone: 4(210)[phone] [place] [address] 04-07-2025 15:42-0400 Body weight [address] Oniel Francis MD Work Phone: 1(150)015-198566 [place] [address] 02-26-2025 08:26-0400 Body mass index (BMI) [Ratio] 32.37 kg/m2 Leti Rodriguez PA-C Work Phone: 9(181)681-184112 [place] [address] 02-26-2025 08:26-0400 Body temperature 97.7 [degF] Leti Clutter PA-C Work Phone: [facility] 02-26-2025 08:26-0400 Body weight 89.6 kg Leti Clutter PA-C Work Phone: [facility] 02-26-2025 08:26-0400 Diastolic blood pressure 70 mm[Hg] Leti Clutter PA-C Work Phone: [facility] 02-26-2025 08:26-0400 Heart rate 61 /min Leti Clutter PA-C Work Phone: [facility] 02-26-2025 08:26-0400 Respiratory rate 20 /min Leti Clutter PA-C Work Phone: [facility] 02-26-2025 08:26-0400 SaO2% (BldA) [Mass fraction] 95 % Leti Clutter PA-C Work Phone: [facility] 02-26-2025 08:26-0400 Systolic blood pressure 98 mm[Hg] Leti Clutter PA-C Work Phone: [facility] 02-08-2025 08:07-0400 Body height 166.4 cm Oniel Francis MD Work Phone: [facility] 02-08-2025 08:07-0400 Body mass index (BMI) [Ratio] 32.81 kg/m2 Oniel Francis MD Work Phone: [facility] 02-08-2025 08:07-0400 Body weight 90.81 kg Oniel Francis MD Work Phone: [facility] 02-08-2025 08:07-0400 Diastolic blood pressure 64 mm[Hg] Oniel Francis MD Work Phone: [facility] 02-08-2025 08:07-0400 Heart rate 60 /min Oniel Francis MD Work Phone: [facility] 02-08-2025 08:07-0400 Respiratory rate 18 /min Oniel Francis MD Work Phone: [facility] 02-08-2025 08:07-0400 Systolic blood pressure 92 mm[Hg] Oniel Francis MD Work Phone: [facility] 01-19-2025 17:16-0400 Body temperature 97.7 [degF] Dr. Oniel Francis MD Work Phone: 8(196)541-934666 [place] [address] 01-19-2025 17:16-0400 Diastolic blood pressure 79 mm[Hg] Dr. Oniel Francis MD Work Phone: 8(550)376-488666 [place] [address] 01-19-2025 17:16-0400 Heart rate 61 /min Dr. Oniel Francis MD Work Phone: 0(861)329-472066 [place] [address] 01-19-2025 17:16-0400 Respiratory rate 17 /min Dr. Oniel Francis MD Work Phone: 6(719)277-273966 [place] [address] 01-19-2025 17:16-0400 SaO2% (BldA) [Mass fraction] 90 % Dr. Oniel Francis MD Work Phone: 1(083)426-501766 [place] [address] 01-19-2025 17:16-0400 Systolic blood pressure 132 mm[Hg] Dr. Oniel Francis MD Work Phone: 2(900)377-633566 [place] [address] 01-19-2025 17:00-0400 Body mass index (BMI) [Ratio] 32 kg/m2 Dr. Oniel Francis MD Work Phone: 6(475)457-156466 [place] [address] 01-19-2025 16:08-0400 Body height 170.[address] Oniel Francis MD Work Phone: 2(689)008-235966 [place] [address] 01-19-2025 16:08-0400 Body weight 92.[address] Oniel Francis MD Work Phone: 8(169)310-080866 [place] [address] 01-19-2025 12:51-0400 Inhaled oxygen flow rate 3 L/min Dr. Oniel Francis MD Work Phone: 8(740)375-669866 [place] [address] 01-19-2025 06:45-0400 Inhaled oxygen flow rate 1 L/min Dr. Oniel Francis MD Work Phone: 6(116)716-124366 [place] [address] 01-19-2025 06:45-0400 SaO2% (BldA) [Mass fraction] 94 % Dr. Oniel Francis MD Work Phone: 2(003)232-497474 [place] [address] 01-19-2025 06:30-0400 Diastolic blood pressure 98 mm[Hg] Dr. Oniel Francis MD Work Phone: 0(788)796-010066 [place] [address] 01-19-2025 06:30-0400 Heart rate 60 /min Dr. Oniel Francis MD Work Phone: 7(132)306-292366 [place] [address] 01-19-2025 06:30-0400 Respiratory rate 18 /min Dr. Oniel Francis MD Work Phone: 1(537)298-177366 [place] [address] 01-19-2025 06:30-0400 Systolic blood pressure 127 mm[Hg] Dr. Oniel Francis MD Work Phone: 8(189)954-804466 [place] [address] 01-19-2025 06:22-0400 Body temperature 98.2 [degF] Dr. Oniel Francis MD Work Phone: 9(564)068-062466 [place] [address] 01-19-2025 03:57-0400 Body height 170.[address] Oniel Francis MD Work Phone: 9(839)296-084066 [place] [address] 01-19-2025 03:57-0400 Body mass index (BMI) [Ratio] 33.4 kg/m2 Dr. Oniel Francis MD Work Phone: 3(212)125-515966 [place] [address] 01-19-2025 03:57-0400 Body weight 96.[address] Oniel Francis MD Work Phone: 6(146)820-025366 [place] [address] 01-18-2025 15:22-0400 Body height 170.[address] Oniel Francis MD Work Phone: 0(626)633-183166 [place] [address] 09-11-2024 14:46-0500 Body height 170.2 cm Abby Pate MD Work Phone: [facility] 09-11-2024 14:46-0500 Body mass index (BMI) [Ratio] 32.49 kg/m2 Abby Pate MD Work Phone: [facility] 09-11-2024 14:46-0500 Body weight 94.1 kg Abby Pate MD Work Phone: [facility] 09-11-2024 14:46-0500 Diastolic blood pressure 88 mm[Hg] Abby Pate MD Work Phone: [facility] 09-11-2024 14:46-0500 Heart rate 68 /min Abby Pate MD Work Phone: [facility] 09-11-2024 14:46-0500 SaO2% (BldA) [Mass fraction] 93 % Abby Pate MD Work Phone: [facility] 09-11-2024 14:46-0500 Systolic blood pressure 150 mm[Hg] Abby Pate MD Work Phone: [facility] 08-31-2024 15:43-0500 Body height 170.2 cm Marj Mackey MD Work Phone: [facility] 08-31-2024 15:43-0500 Body mass index (BMI) [Ratio] 31.48 kg/m2 Marj Mackey MD Work Phone: [facility] 08-31-2024 15:43-0500 Body weight 91.17 kg Marj Mackey MD Work Phone: [facility] 08-31-2024 15:43-0500 Diastolic blood pressure 56 mm[Hg] Marj Mackey MD Work Phone: [facility] 08-31-2024 15:43-0500 Heart rate 74 /min Marj Mackey MD Work Phone: [facility] 08-31-2024 15:43-0500 Respiratory rate 14 /min Marj Mackey MD Work Phone: [facility] 08-31-2024 15:43-0500 SaO2% (BldA) [Mass fraction] 95 % Marj Mackey MD Work Phone: [facility] 08-31-2024 15:43-0500 Systolic blood pressure 98 mm[Hg] Mraj Mackey MD Work Phone: [facility] 05-07-2024 15:30-0400 Body mass index (BMI) [Ratio] 31.32 kg/m2 Zina Duran BUCKLE INSPECTOR.RECOVERY ASSISTANT Work Phone: [facility] 05-07-2024 15:30-0400 Body weight 90.72 kg Zina Duran BUCKLE INSPECTOR.RECOVERY ASSISTANT Work Phone: [facility] 05-07-2024 15:30-0400 Diastolic blood pressure 67 mm[Hg] Zina Duran BUCKLE INSPECTOR.RECOVERY ASSISTANT Work Phone: [facility] 05-07-2024 15:30-0400 Heart rate 63 /min Zina Duran BUCKLE INSPECTOR.RECOVERY ASSISTANT Work Phone: [facility] 05-07-2024 15:30-0400 Respiratory rate 16 /min Zina Duran BUCKLE INSPECTOR.RECOVERY ASSISTANT Work Phone: [facility] 05-07-2024 15:30-0400 Systolic blood pressure 125 mm[Hg] Zina Duran APRN.RECOVERY ASSISTANT Work Phone: [facility] 04-07-2024 10:57-0400 Diastolic blood pressure 70 mm[Hg] Ella Valdovinos PA-C Work Phone: [facility] 04-07-2024 10:57-0400 Systolic blood pressure 104 mm[Hg] Ella Valdovinos PA-C Work Phone: [facility] 04-07-2024 10:44-0400 Body mass index (BMI) [Ratio] 30.7 kg/m2 Ella Valdovinos PA-C Work Phone: [facility] 04-07-2024 10:44-0400 Body temperature 97.9 [degF] Ella Valdovinos PA-C Work Phone: [facility] 04-07-2024 10:44-0400 Body weight 88.91 kg Ella Valdovinos PA-C Work Phone: [facility] 04-07-2024 10:44-0400 Heart rate 75 /min Ella Valdovinos PA-C Work Phone: [facility] 04-07-2024 10:44-0400 Respiratory rate 18 /min Ella Valdovinos PA-C Work Phone: [facility] 04-07-2024 10:44-0400 SaO2% (BldA) [Mass fraction] 94 % Ella Valdovinos PA-C Work Phone: [facility] 03-11-2024 13:04-0400 Body height 170.2 cm Abby Pate MD Work Phone: [facility] 03-11-2024 13:04-0400 Body mass index (BMI) [Ratio] 29.57 kg/m2 Abby Pate MD Work Phone: [facility] 03-11-2024 13:04-0400 Body weight 85.65 kg Abby Pate MD Work Phone: [facility] 03-11-2024 13:04-0400 Diastolic blood pressure 74 mm[Hg] Abby Pate MD Work Phone: [facility] 03-11-2024 13:04-0400 Heart rate 66 /min Abby Pate MD Work Phone: [facility] 03-11-2024 13:04-0400 Systolic blood pressure 113 mm[Hg] Abby Pate MD Work Phone: [facility] 02-19-2024 15:10-0400 Body temperature 97.7 [degF] DR DEAN CALDWELL MD [facility] 02-19-2024 15:10-0400 Diastolic Blood Pressure Non-Invasive 71 mm[Hg] DR DEAN CALDWELL MD [facility] 02-19-2024 15:10-0400 Heart rate 68 /min DR DEAN CALDWELL MD [facility] 02-19-2024 15:10-0400 Respiratory rate 18 /min DR DEAN CALDWELL MD [facility] 02-19-2024 15:10-0400 Systolic Blood Pressure Non-Invasive 122 mm[Hg] DR DEAN CALDWELL MD [facility] 02-19-2024 13:16-0400 Respiratory rate 18 /min DR DEAN CALDWELL MD [facility] 02-19-2024 11:33-0400 Body temperature 97.52 [degF] DR DEAN CALDWELL MD [facility] 02-19-2024 11:33-0400 Diastolic Blood Pressure Non-Invasive 65 mm[Hg] DR DEAN CALDWELL MD [facility] 02-19-2024 11:33-0400 Heart rate 68 /min DR DEAN CALDWELL MD [facility] 02-19-2024 11:33-0400 Respiratory rate 18 /min DR DEAN CALDWELL MD [facility] 02-19-2024 11:33-0400 Systolic Blood Pressure Non-Invasive 126 mm[Hg] DR DEAN CALDWELL MD [facility] 02-19-2024 08:15-0400 Heart rate 84 /min DR DEAN CALDWELL MD [facility] 02-19-2024 06:27-0400 Body temperature 97.34 [degF] DR DEAN CALDWELL MD [facility] 02-19-2024 06:27-0400 Diastolic Blood Pressure Non-Invasive 58 mm[Hg] DR DEAN CALDWELL MD [facility] 02-19-2024 06:27-0400 Heart rate 67 /min DR DEAN CALDWELL MD [facility] 02-19-2024 06:27-0400 Systolic Blood Pressure Non-Invasive 103 mm[Hg] DR DEAN CALDWELL MD [facility] 02-18-2024 20:42-0400 Heart rate 82 /min DR DEAN CALDWELL MD [facility] 02-18-2024 17:02-0400 Body height 170.[address] DEAN CALDWELL MD [facility] 02-18-2024 17:02-04[address] Body weight [address] DEAN CALDWELL MD [facility] 02-18-2024 17:02-0400 Body weight 30.38 kg/m2 DR DEAN CALDWELL MD [facility] 02-18-2024 15:17-0400 Body temperature 97.52 [degF] DR DEAN CALDWELL MD [facility] 02-18-2024 15:10-0400 Respiratory Rate - Anes 0 br/min DR DEAN CALDWLEL MD [facility] 02-18-2024 15:05-0400 Respiratory Rate - Anes 0 br/min DR DEAN CALDWELL MD [facility] 02-18-2024 15:00-0400 Respiratory Rate - Anes 15 br/min DR DEAN CALDWELL MD [facility] 02-18-2024 11:01-0400 Body height 170.[address] DEAN CALDWELL MD [facility] 02-18-2024 11:01-0400 Body temperature 97.88 [degF] DR DEAN CALDWELL MD [facility] 02-18-2024 11:01-0400 Body weight [address] DEAN CALDWELL MD [facility] 02-18-2024 11:01-0400 Heart rate 60 /min DR DEAN CALDWELL MD [facility] 02-10-2024 09:39-0400 Body height 170.2 cm Ella Valdovinos PA-C Work Phone: [facility] 02-10-2024 09:39-0400 Body mass index (BMI) [Ratio] 31.01 kg/m2 Ella Valdovinos PA-C Work Phone: [facility] 02-10-2024 09:39-0400 Body weight 89.81 kg Ella Valdovinos PA-C Work Phone: [facility] 02-10-2024 09:39-0400 Diastolic blood pressure 72 mm[Hg] Ella Valdovinos PA-C Work Phone: [facility] 02-10-2024 09:39-0400 Heart rate 60 /min Ella Valdovinos PA-C Work Phone: [facility] 02-10-2024 09:39-0400 Respiratory rate 16 /min Ella Valdovinos PA-C Work Phone: [facility] 02-10-2024 09:39-0400 Systolic blood pressure 118 mm[Hg] Ella Valdovinos PA-C Work Phone: [facility] 01-27-2024 11:15-[address] DEAN CALDWELL MD [facility] 01-27-2024 11:15-[address] DEAN Calero [facility] 01-27-2024 11:15-0400 Body height 170.[address] DEAN CALDWELL MD [facility] 01-27-2024 11:15-0400 Body weight 88.[address] DEAN CALDWELL MD [facility] 01-27-2024 11:15-0400 Body weight 30.59 kg/m2 DR DEAN CALDWELL MD [facility] 01-27-2024 11:15-0400 Diastolic Blood Pressure Non-Invasive 87 mm[Hg] DR DEAN CALDWELL MD [facility] 01-27-2024 11:15-0400 Heart rate 60 /min DR DEAN CALDWELL MD [facility] 01-27-2024 11:15-0400 Respiratory rate 18 /min DR DEAN CALDWELL MD [facility] 01-27-2024 11:15-0400 Systolic Blood Pressure Non-Invasive 151 mm[Hg] DR DEAN CALDWELL MD [facility] 12-31-2023 10:59-0400 Body mass index (BMI) [Ratio] 31.32 kg/m2 Oniel Francis MD Work Phone: [facility] 12-31-2023 10:59-0400 Body temperature 97.5 [degF] Oniel Francis MD Work Phone: [facility] 12-31-2023 10:59-0400 Body weight 90.72 kg Oniel Francis MD Work Phone: [facility] 12-31-2023 10:59-0400 Diastolic blood pressure 82 mm[Hg] Oniel Francis MD Work Phone: [facility] 12-31-2023 10:59-0400 Heart rate 58 /min Oniel Francis MD Work Phone: [facility] 12-31-2023 10:59-0400 Respiratory rate 16 /min Oniel Francis MD Work Phone: [facility] 12-31-2023 10:59-0400 SaO2% (BldA) [Mass fraction] 95 % Oniel Francis MD Work Phone: [facility] 12-31-2023 10:59-0400 Systolic blood pressure 120 mm[Hg] Oniel Francis MD Work Phone: [facility] 12-23-2023 15:40-0400 Body height 170.2 cm Marj Mackey MD Work Phone: [facility] 12-23-2023 15:40-0400 Body mass index (BMI) [Ratio] 30.79 kg/m2 Marj Mackey MD Work Phone: [facility] 12-23-2023 15:40-0400 Body weight 89.18 kg Marj Mackey MD Work Phone: [facility] 12-23-2023 15:40-0400 Diastolic blood pressure 72 mm[Hg] Marj Mackey MD Work Phone: [facility] 12-23-2023 15:40-0400 Heart rate 57 /min Marj Mackey MD Work Phone: [facility] 12-23-2023 15:40-0400 SaO2% (BldA) [Mass fraction] 96 % Marj Mackey MD Work Phone: [facility] 12-23-2023 15:40-0400 Systolic blood pressure 119 mm[Hg] Marj Mackey MD Work Phone: [facility] 12-14-2023 11:17-0400 Body mass index (BMI) [Ratio] 31.46 kg/m2 Eva Barlow APRN.RECOVERY ASSISTANT Work Phone: [facility] 12-14-2023 11:17-0400 Body temperature 96.21 [degF] Eva Barlow APRN.RECOVERY ASSISTANT Work Phone: [facility] 12-14-2023 11:17-0400 Body weight 91.1 kg Eva Barlow APRN.RECOVERY ASSISTANT Work Phone: [facility] 12-14-2023 11:17-0400 Diastolic blood pressure 62 mm[Hg] Eva Barlow APRN.RECOVERY ASSISTANT Work Phone: [facility] 12-14-2023 11:17-0400 Heart rate 62 /min Eva Barlow APRN.RECOVERY ASSISTANT Work Phone: [facility] 12-14-2023 11:17-0400 Respiratory rate 16 /min Eva Barlow APRN.RECOVERY ASSISTANT Work Phone: [facility] 12-14-2023 11:17-0400 SaO2% (BldA) [Mass fraction] 98 % Eva Barlow APRN.RECOVERY ASSISTANT Work Phone: [facility] 12-14-2023 11:17-0400 Systolic blood pressure 120 mm[Hg] Eva Barlow APRN.RECOVERY ASSISTANT Work Phone: [facility] 09-11-2023 13:31-0500 Body height 170.2 cm Abby Pate MD Work Phone: [facility] 09-11-2023 13:31-0500 Body weight 92 kg Abby Pate MD Work Phone: [facility] 09-11-2023 13:31-0500 Diastolic blood pressure 78 mm[Hg] Abby Pate MD Work Phone: [facility] 09-11-2023 13:31-0500 Heart rate 66 /min Abby Pate MD Work Phone: [facility] 09-11-2023 13:31-0500 SaO2% (BldA) [Mass fraction] 93 % Abby Pate MD Work Phone: [facility] 09-11-2023 13:31-0500 Systolic blood pressure 139 mm[Hg] Abby Pate MD Work Phone: [facility] 06-24-2023 15:52-0500 Body weight 89.81 kg Marj Mackey MD Work Phone: [facility] 06-24-2023 15:52-0500 Diastolic blood pressure 67 mm[Hg] Marj Mackey MD Work Phone: [facility] 06-24-2023 15:52-0500 Heart rate 66 /min Marj Mackey MD Work Phone: [facility] 06-24-2023 15:52-0500 Respiratory rate 16 /min Marj Mackey MD Work Phone: [facility] 06-24-2023 15:52-0500 SaO2% (BldA) [Mass fraction] 95 % Marj Mackey MD Work Phone: [facility] 06-24-2023 15:52-0500 Systolic blood pressure 117 mm[Hg] Marj Mackey MD Work Phone: [facility] 03-20-2023 11:33-0400 Body height 168.9 cm Abby Pate MD Work Phone: [facility] 03-20-2023 11:33-0400 Body weight 85.28 kg Abby Pate MD Work Phone: [facility] 03-20-2023 11:33-0400 Diastolic blood pressure 87 mm[Hg] Abby Pate MD Work Phone: [facility] 03-20-2023 11:33-0400 Heart rate 63 /min Abby Pate MD Work Phone: [facility] 03-20-2023 11:33-0400 SaO2% (BldA) [Mass fraction] 96 % Abby Pate MD Work Phone: [facility] 03-20-2023 11:33-0400 Systolic blood pressure 135 mm[Hg] Abby Pate MD Work Phone: [facility] 10-29-2022 11:18-0400 Diastolic blood pressure 78 mm[Hg] Marj Mackey MD Work Phone: [facility] 10-29-2022 11:18-0400 Systolic blood pressure 128 mm[Hg] Marj Mackey MD Work Phone: [facility] 10-29-2022 10:47-0400 Body height 170.2 cm Marj Mackey MD Work Phone: [facility] 10-29-2022 10:47-0400 Body weight 92.08 kg Marj Mackey MD Work Phone: [facility] 10-29-2022 10:47-0400 Heart rate 60 /min Marj Mackey MD Work Phone: [facility] 06-22-2022 08:48-0500 Body temperature 97.2 [degF] Oniel Francis MD Work Phone: [facility] 06-22-2022 08:48-0500 Body weight 88.91 kg Oniel Francis MD Work Phone: [facility] 06-22-2022 08:48-0500 Diastolic blood pressure 82 mm[Hg] Oniel Francis MD Work Phone: [facility] 06-22-2022 08:48-0500 Heart rate 60 /min Oniel Francis MD Work Phone: [facility] 06-22-2022 08:48-0500 Respiratory rate 18 /min Oniel Francis MD Work Phone: [facility] 06-22-2022 08:48-0500 Systolic blood pressure 136 mm[Hg] Oniel Francis MD Work Phone: [facility] 04-30-2022 09:59-0400 Body height 170.2 cm Marj Mackey MD Work Phone: [facility] 04-30-2022 09:59-0400 Body weight 88.45 kg Marj Mackey MD Work Phone: [facility] 04-30-2022 09:59-0400 Diastolic blood pressure 80 mm[Hg] Marj Mackey MD Work Phone: [facility] 04-30-2022 09:59-0400 Heart rate 56 /min Marj Mackey MD Work Phone: [facility] 04-30-2022 09:59-0400 SaO2% (BldA) [Mass fraction] 94 % Marj Mackey MD Work Phone: [facility] 04-30-2022 09:59-0400 Systolic blood pressure 120 mm[Hg] Marj Mackey MD Work Phone: [facility] 04-23-2022 17:38-0400 Body temperature 97.9 [degF] Naun Monterroso MD Work Phone: [facility] 04-23-2022 17:38-0400 Body weight 88.45 kg Naun Monterroso MD Work Phone: [facility] 04-23-2022 17:38-0400 Diastolic blood pressure 78 mm[Hg] Naun Monterroso MD Work Phone: [facility] 04-23-2022 17:38-0400 Heart rate 57 /min Naun Monterroso MD Work Phone: [facility] 04-23-2022 17:38-0400 Respiratory rate 18 /min Naun Monterroso MD Work Phone: [facility] 04-23-2022 17:38-0400 SaO2% (BldA) [Mass fraction] 94 % Naun Monterroso MD Work Phone: [facility] 04-23-2022 17:38-0400 Systolic blood pressure 116 mm[Hg] Naun Monterroso MD Work Phone: [facility] 02-19-2022 09:59-0400 Body temperature 96.8 [degF] Charan Roman BUCKLE INSPECTOR.RECOVERY ASSISTANT Work Phone: [facility] 02-19-2022 09:59-0400 Body weight 86.91 kg Charan Roman BUCKLE INSPECTOR.RECOVERY ASSISTANT Work Phone: [facility] 02-19-2022 09:59-0400 Diastolic blood pressure 82 mm[Hg] Charan Roman APRN.RECOVERY ASSISTANT Work Phone: [facility] 02-19-2022 09:59-0400 Heart rate 56 /min Charan Roman APRN.RECOVERY ASSISTANT Work Phone: [facility] 02-19-2022 09:59-0400 Respiratory rate 20 /min Charan Roman APRN.RECOVERY ASSISTANT Work Phone: [facility] 02-19-2022 09:59-0400 SaO2% (BldA) [Mass fraction] 94 % Charan Roman BUCKLE INSPECTOR.RECOVERY ASSISTANT Work Phone: [facility] 02-19-2022 09:59-0400 Systolic blood pressure 136 mm[Hg] Charan Roman BUCKLE INSPECTOR.RECOVERY ASSISTANT Work Phone: [facility] 12-15-2021 15:27-0400 Body height 168 cm Abby Pate MD Work Phone: [facility] 12-15-2021 15:27-0400 Body weight 87.09 kg Abby Pate MD Work Phone: [facility] 12-15-2021 15:27-0400 Diastolic blood pressure 73 mm[Hg] Abby Pate MD Work Phone: [facility] 12-15-2021 15:27-0400 Heart rate 61 /min Abby Pate MD Work Phone: [facility] 12-15-2021 15:27-0400 Systolic blood pressure 128 mm[Hg] Abby Pate MD Work Phone: [facility] Encounters Encounter Date Encounter Type Care Provider Facility Start: 04-08-2025 End: 04-08-2025 Chart abstracting Oniel Francis MD Work Phone: [facility] Comment on above: Abstract ([facility] disch rge summary, Dr. Jara) Start: 04-07-2025 End: 04-08-2025 ambulatory Oniel Francis Facility:[facility] Start: 04-07-2025 End: 04-08-2025 Evaluation and management of inpatient Dr. Andi Jara MD -Medical Surgical 3 Work Phone: Start: 04-07-2025 End: 04-08-[address] Oniel Francis MD Work Phone: -[facility] Surgical 3 Start: 03-24-2025 End: 03-24-2025 ambulatory ONIEL FRANCIS Facility:[facility] Start: 03-24-2025 End: 03-24-2025 Chart abstracting Oniel Francis MD Work Phone: [facility] Comment on above: Abstract (Urology Pr ocedure report) Start: 03-24-2025 End: 03-24-2025 Telephone encounter Oniel Francis MD Work Phone: [facility] [place] Comment on above: Faxed Information Start: 02-26-2025 End: 02-26-2025 Office outpatient new 30 minutes Leti Rodriguez PA-C Work Phone: [facility] Comment on above: Acute URI (Primary D x) Start: 02-26-2025 End: 03-02-2025 Refill Oneil Francis MD Work Phone: [facility] [place] Comment on above: Refill Request Patient Question Start: 02-24-2025 End: 02-24-2025 Chart abstracting Oniel Francis MD Work Phone: [facility] [place] Comment on above: Outside [id number] Ordered; Outside Urology Start: 02-23-2025 End: 02-23-[address] Oniel Francis MD Work Phone: -Laboratory Start: 02-23-2025 End: 02-23-[address] Andi Jara MD -Laboratory Work Phone: Start: 02-23-2025 End: 02-23-2025 ambulatory Oniel Francis Facility:[facility] Start: 02-19-2025 End: 02-25-2025 Telephone encounter Oniel Francis MD Work Phone: [facility] Comment on above: Results; Appointment Start: 02-13-2025 End: 02-15-2025 Refill Abby Pate MD Work Phone: Neurology Comment on above: Refill Request Start: 02-10-2025 End: 02-11-2025 Follow-up encounter Oniel Francis MD Work Phone: [facility] Comment on above: Results Start: 02-08-2025 End: 02-08-2025 ambulatory ONIEL FRANCIS Facility:[facility] Start: 02-08-2025 End: 02-08-2025 Patient encounter procedure Oniel Francis MD Work Phone: [facility] Comment on above: Medicare annual well ness visit, subsequent (Primary Dx); Mixed hyperlipidemia; Essential hypertension; Acquired hypothyroidism; Elevated blood sugar; Carotid stenosis, asymptomatic, bilateral; Coronary 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[place] coronary artery of [place] heart without angina pectoris; Aortic valve replaced; Hx of transient ischemic attack (TIA); Parkinson's disease with dyskinesia and fluctuating manifestations (HCC); B12 deficiency; Obesity, Class I, BMI 30-34.9; Vitamin D deficiency; Chronic bilateral low back pain without sciatica; Advance directive discussed with patient; BPH associated with nocturia; Need for vaccination; Encounter for screening examination for other mental health and behavioral disorders; Screening for depression; Medication management; Sleep disorder Start: 02-08-2025 End: 02-08-2025 ambulatory ONIEL FRANCIS Facility:[facility] Start: 01-27-2025 ambulatory Oniel Francis [facility] Start: 01-27-2025 Non-patient / Non-visit Dr. Pierre BARTH -[facility] Work Phone: Start: 01-27-2025 ambulatory Leti Lu [facility] Start: 01-27-[address] Leti jauregui DO -Cardiovascular Services Work Phone: Start: 01-19-2025 ambulatory Oniel Francis Facility :[facility] Start: 01-19-2025 Non-patient / Non-visit Dr. Pierre BARTH -[facility] Start: 01-19-2025 End: 01-19-2025 Evaluation and management of inpatient Dr. Mik Kilgore MD -Progressive Care Unit Work Phone: Start: 01-19-2025 End: 01-19-[address] Oniel Frnacis MD Work Phone: [facility] Work Phone: Start: 01-19-2025 End: 01-19-2025 ambulatory Leti Lu Facility:[facility] Start: 01-19-2025 Non-patient / Non-visit Dr. Mik jacob MD -[place] [facility] Work Phone: Start: 01-18-2025 End: 01-18-[address] Aramis Larson MD -[facility] Start: 01-18-2025 End: 01-18-[address] Oniel Francis MD Work Phone: [facility] Work Phone: Start: 12-02-2024 End: 12-02-2024 Chart abstracting Prudencio Barlow [facility] Comment on above: Consult (Outside Patrick n Management - Dr. Bowden ) Start: 11-02-2024 End: 11-02-2024 Refill Oniel Francis MD Work Phone: [facility] Comment on above: Refill Request Start: 09-18-2024 End: 09-18-2024 Follow-up encounter Marj Mackey MD Work Phone: [facility] Cardiology [place] Start: 09-18-2024 End: 09-23-2024 Telephone encounter Abby Pate MD Work Phone: Neurology Start: 09-17-2024 End: 09-17-2024 ambulatory ONIEL FRANCIS Facility:[facility] Start: 09-11-2024 End: 09-11-2024 ambulatory ONIEL FRANCIS Facility:[facility] Start: 09-11-2024 End: 09-11-2024 Patient encounter procedure Abby Pate MD Work Phone: Neurology Comment on above: 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); Insomnia, unspecified type; Chronic idiopathic constipation; RBD (REM behavioral disorder) Start: 09-01-2024 End: 09-01-2024 ambulatory MARJ MACKEY Facility:[facility] Start: 08-31-2024 End: 08-31-2024 ambulatory MARJ MACKEY Facility:[facility] Start: 08-31-2024 End: 08-31-2024 Patient encounter procedure Marj Mackey MD Work Phone: Cardiology Comment on above: Coronary artery dise ase involving [place] coronary artery of [place] heart without angina pectoris (Primary Dx); Aortic valve replaced; Mixed hyperlipidemia; Essential hypertension; Carotid stenosis, asymptomatic, bilateral; Hyperlipidemia, unspecified hyperlipidemia type; SAUCEDA (dyspnea on exertion) Start: 08-01-2024 End: 08-03-2024 Refill Zina Duran APRN.CNP Work Phone: [facility] [place] Comment on above: Med Change Request Start: 07-10-2024 End: 07-13-2024 Refill Oniel Francis MD Work Phone: [facility] [place] Comment on above: Refill Request Start: 06-25-2024 End: 06-25-2024 Refill Zina Duran APRN.RECOVERY ASSISTANT Work Phone: [facility] [place] Comment on above: Med Change Request Start: 05-30-2024 End: 06-01-2024 Refill Zina Duran APRN.RECOVERY ASSISTANT Work Phone: [facility] [place] Comment on above: Med Change Request Start: 05-08-2024 End: 05-11-2024 Telephone encounter Zina Duran APRN.CNP Work Phone: [facility] [place] Comment on above: problem scheduling u ltrasound Results Start: 05-07-2024 End: 05-07-2024 Patient encounter procedure Zina Duran APRN.CNP Work Phone: [facility] [place] Comment on above: Bilateral leg pain ( Primary Dx); Bilateral lower extremity edema; Benign localized prostatic hyperplasia with lower urinary tract symptoms (LUTS) Start: 05-07-2024 End: 05-08-2024 ambulatory ONIEL FRANCIS Facility:[facility] Start: 05-07-2024 End: 05-08-2024 Telephone encounter Zina Duran APRN.CNP Work Phone: [facility] [place] Comment on above: US DVT order Start: 04-07-2024 End: 04-07-2024 Telephone encounter Ella Valdovinos PA-C [facility] Comment on above: Orders Start: 04-07-2024 End: 04-07-2024 ambulatory ONIEL FRANCIS Facility:[facility] Start: 04-07-2024 End: 04-07-2024 Patient encounter procedure Ella Valdovinos PA-C Work Phone: [facility] [place] Comment on above: Nocturia associated with benign prostatic hyperplasia (Primary Dx) Start: 03-11-2024 End: 03-11-2024 Patient encounter procedure Abby Pate MD Work Phone: Neurology Comment on above: 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); Chronic idiopathic constipation; Insomnia, unspecified type Start: 02-24-2024 Telephone encounter Oniel Francis MD Work Phone: Family [facility] [place] Comment on above: Medication Question Start: 02-18-2024 End: 02-19-[address] DEAN CALDWELL MD Facility: Start: 02-18-2024 End: 02-19-[address] DEAN CALDWELL MD [facility] Start: 02-12-2024 Telephone encounter Oniel Francis MD Work Phone: Family [facility] [place] Comment on above: Requsting Records Start: 02-10-2024 End: 02-10-2024 Patient encounter procedure Ella Valdovinos PA-C Work Phone: Family [facility] [place] Comment on above: Medicare annual well ness visit, subsequent (Primary Dx); Advance directive discussed with patient; Arthritis of knee; Acquired hypothyroidism; Elevated blood sugar; B12 deficiency; Mixed hyperlipidemia; Essential hypertension; Coronary 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[place] coronary artery of [place] heart without angina pectoris; Aortic valve replaced; Parkinson's disease with dyskinesia and fluctuating manifestations (HCC); BPH associated with nocturia Start: 02-05-2024 ambulatory [facility] [place] Start: 02-05-2024 Patient encounter procedure [facility] [place] Comment on above: Population Health Na vigation Outreach ([place] [facility] 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 - AW[facility], Care gaps, - [place] [facility]) Start: 02-03-2024 Telephone encounter Ella neff PA-C Work Phone: [facility] [place] Comment on above: Results Start: 01-31-2024 End: 01-31-2024 Subsequent hospital visit by physician Reagan [facility] [place] Work Phone: Radiology Comment on above: URI, acute [J06.9] Start: 01-27-2024 End: 01-27-[address] DEAN CALDWELL MD Facility:B Start: 01-27-2024 End: 01-27-[address] DEAN CALDWELL MD [facility] Start: 01-27-2024 End: 01-27-[address] DEAN CALDWELL MD [facility] Start: 01-27-2024 End: 01-27-[address] DEAN CALDWELL MD Facility:[facility] Start: 12-31-2023 End: 12-31-2023 Patient encounter procedure Oniel Francis MD Work Phone: [facility] [place] Comment on above: URI, acute (Primary Dx); X-ray of lung, abnormal; Mixed hyperlipidemia; Coronary 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[place] coronary artery of [place] heart without angina pectoris; Elevated blood sugar; Essential hypertension; Acquired hypothyroidism; Vitamin D deficiency; B12 deficiency Start: 12-23-2023 End: 12-23-2023 Patient encounter procedure Marj Mackey MD Work Phone: Cardiology Comment on above: Coronary artery dise ase involving [place] coronary artery of [place] heart without angina pectoris (Primary Dx); Aortic valve replaced; Essential hypertension; Mixed hyperlipidemia; Carotid stenosis, asymptomatic, bilateral; Screening for ischemic heart disease; Pre-operative cardiovascular examination Start: 12-23-2023 End: 12-23-2023 Patient encounter status Marj Mackey MD Work Phone: [facility] Start: 12-16-2023 Telephone encounter Oniel Francis MD Work Phone: [facility] [place] Comment on above: Appointment Start: 12-14-2023 End: 12-14-2023 Subsequent hospital visit by physician Reagan [facility] [place] Work Phone: Radiology Comment on above: Acute cough [R05.1] Start: 12-14-2023 End: 12-14-2023 Patient encounter procedure Eva Jorge ADAMS.RECOVERY ASSISTANT Work Phone: [place] [facility] Comment on above: Acute cough (Primary Dx) Start: 11-12-2023 ambulatory Lelia Soni [facility] [place] Comment on above: Population Health Na vigation Outreach ([place] [facility] ) Start: 09-11-2023 End: 09-11-2023 Patient encounter procedure Abby Pate MD Work Phone: Neurology Comment on above: 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); Chronic idiopathic constipation; Insomnia, unspecified type Start: 06-24-2023 End: 06-24-2023 Patient encounter procedure Marj Mackey MD Work Phone: Cardiology Comment on above: Coronary artery dise ase involving [place] coronary artery of [place] heart without angina pectoris (Primary Dx); Aortic valve replaced; Essential hypertension; Hyperlipidemia, unspecified hyperlipidemia type; Mixed hyperlipidemia; Carotid stenosis, asymptomatic, bilateral; SAUCEDA (dyspnea on exertion) Start: 03-20-2023 End: 03-20-2023 Patient encounter procedure Abby Pate MD Work Phone: Neurology Comment on above: Parkinson disease (H CC) (Primary Dx); Chronic idiopathic constipation; RBD (REM behavioral disorder) Start: 03-19-2023 Refill Abby Pate MD Work Phone: [facility] Comment on above: Refill Request (Carb idopa-Levodopa) Start: 12-25-2022 Patient encounter procedure Abby Pate MD Work Phone: [facility] Work Phone: Start: 12-12-2022 Telephone encounter Marj Mackey MD Work Phone: Cardiology Comment on above: Patient Update Start: 11-08-2022 Refill Oniel smith MD Work Phone: [facility] [place] Comment on above: Refill Request Start: 11-07-2022 Telephone encounter Marj Mackey MD Work Phone: Cardiology Comment on above: Patient Question Start: 10-29-2022 End: 10-29-2022 Patient encounter procedure Marj Mackey MD Work Phone: Cardiology Comment on above: Coronary artery dise ase involving [place] coronary artery of [place] heart without angina pectoris (Primary Dx); Aortic valve replaced; Essential hypertension; Mixed hyperlipidemia; Carotid stenosis, asymptomatic, bilateral; Hyperlipidemia, unspecified hyperlipidemia type Start: 07-13-2022 Refill Abby Pate MD Work Phone: [facility] Neurology Comment on above: Refill Request Start: 06-25-2022 Telephone encounter Oniel Francis MD Work Phone: [facility] [place] Comment on above: Results Start: 06-22-2022 End: 06-22-2022 Patient encounter procedure Oniel Francis MD Work Phone: [facility] [place] Comment on above: Essential hypertensi on (Primary Dx); Mixed hyperlipidemia; Elevated blood sugar; Coronary 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[place] coronary artery of [place] heart without angina pectoris; Carotid stenosis, asymptomatic, bilateral; Acquired hypothyroidism; Vitamin D deficiency; Obesity, Class I, BMI 30-34.9; B12 deficiency; Viral URI with cough; Medication management Start: 06-18-2022 End: 06-18-2022 [facility] Abby Pate MD Work Phone: Neurology Comment on above: Parkinson disease (H CC) (Primary Dx); Chronic idiopathic constipation; RBD (REM behavioral disorder) Start: 05-23-2022 End: 05-23-2022 ambulatory Mi Nurse Work Phone: [facility] [place] Start: 05-11-2022 Refill Ella Russo on PA-C Work Phone: [facility] [place] Comment on above: Refill Request Start: 04-30-2022 End: 04-30-2022 Patient encounter procedure Marj Mackey MD Work Phone: Cardiology Comment on above: Coronary artery dise ase involving [place] coronary artery of [place] heart without angina pectoris (Primary Dx); Aortic valve replaced; Essential hypertension; Mixed hyperlipidemia; Carotid stenosis, asymptomatic, bilateral; Hyperlipidemia, unspecified hyperlipidemia type Start: 04-23-2022 End: 04-23-2022 Orders Only Marj Mackey MD Work Phone: Cardiology Comment on above: Aortic valve replace d (Primary Dx) Olecranon bursitis o f right elbow (Primary Dx) Start: 02-19-2022 End: 02-19-2022 Patient encounter procedure Charan Roman APRN.RECOVERY ASSISTANT Work Phone: [place] [facility] Comment on above: Rash (Primary Dx) Start: 12-15-2021 End: 12-15-2021 Patient encounter procedure Abby Pate MD Work Phone: Neurology Comment on above: Parkinson disease (H CC) (Primary Dx); Chronic idiopathic constipation; RBD (REM behavioral disorder) Start: 12-12-2021 Patient encounter procedure Abby Pate MD Work Phone: [facility] Work Phone: Start: 12-01-2021 ambulatory Oniel smith MD Work Phone: [facility] [place] Start: 12-01-2021 Patient encounter procedure Oniel Francis MD Work Phone: [facility] [place] Comment on above: office visit Start: 11-07-2021 Refill Ella luo PA-C Work Phone: [facility] [place] Comment on above: Refill Request Start: 12-07-2020 Patient encounter procedure Ella Valdovinos PA-C Work Phone: [facility] Work Phone: Start: 08-26-2018 End: 08-26-2018 Evaluation and management of inpatient ARLENEAXEL MARINO N Facility:[facility] Start: 01-17-2018 Patient encounter procedure KIZZY BAILEY Facility:[facility] Start: 12-31-2017 Patient encounter procedure KIZZY BAILEY Facility:[facility] Procedures Date Procedure Procedure Detail Performing Clinician Start: 04-07-[address] Oniel Francis MD Work Phone: Start: 02-23-2025 End: 02-23-2025 PSA screening [facility] Provider Comment on above: This test was perfor med using the [employer] tPSA method. Measured values of a patient sample can vary depending on the testing procedure used. PSA values determined on patient samples by different testing procedures cannot be used interchangeably. If there is a change in PSA assays while monitoring therapy, sequential testing should be performed to confirm baseline values. Start: 02-08-2025 LXSN COVI D-19 VACCINE AGE 12+ YR (COMIRNATY) Oniel Francis MD Work Phone: Start: 02-08-2025 Adult depression screening assessment Oniel Francis MD Work Phone: Start: 01-19-2025 MRI of brain without contrast Dr. Oniel Francis MD Work Phone: Start: 01-19-2025 Plain chest X-ray Dr. Alida Francis MD Work Phone: Start: 01-19-2025 Urnls dip stick/tabl et reagent auto microscopy Dr. Oniel Francis MD Work Phone: Start: 01-19-2025 CT angiography of he ad and neck Dr. Oniel Francis MD Work Phone: Start: 01-19-2025 CT of head without contrast Dr. Oniel Francis MD Work Phone: Start: 01-19-[address] Oniel Francis MD Work Phone: Start: 01-18-2025 X-ray of lumbar spin e, two or three views Dr. Oniel Francis MD Work Phone: Start: 02-18-[address] DEAN [...] 12-14-2023 Radiologic exam ches t 2 views Eva Barlow RECOVERY ASSISTANT Work Phone: Start: 05-23-2022 INFLUENZA SEASONAL QUADRIVALENT HIGH DOSE AGE 65+ Oniel Francis MD Work Phone: Start: 12-12-2021 Adult depression screening assessment Abby Pate MD Work Phone: Start: 06-08-2021 Adult depression screening assessment Ella Valdovinos PA-C Work Phone: Start: 10-03-2018 History of coronary artery bypass grafting H/O coronary artery bypass surgery Dr. Mik Kilgore MD Comment on above: CABG X 4 SVG-D2, [...] Treatment Date Care Activity Detail Author Start: 02-09-2028 Diabetes Screening Diabetes Screenin g [facility] Start: 12-04-2027 Urine microalbumin profile [facility] Start: 09-01-2027 Diabetes Screening Diabetes Screenin g [facility] Start: 05-07-2027 Diabetes Screening Diabetes Screenin g [facility] Start: 01-30-2027 Diabetes Screening Diabetes Screenin g [facility] Start: 02-09-2026 End: 02-09-2026 Patient encounter procedure 02/09/2026 8:00 AM EDT Office Visit [facility] [place] [address] [facility] [place] [address] Oniel Francis MD [address] [facility] [address] Medicare Wellness [facility] [place] Comment on above: Medicare Wellness Start: 02-08-2026 Anxiety Screening Anxiety Screening [facility] Start: 02-08-2026 Depression Screening Depression Scre ening [facility] Start: 02-08-2026 Hepatitis B surface antibody level LDL Cholesterol [facility] Start: 01-28-2026 End: 04-29-2026 25-hydroxyvitamin D3 [Mass/volume] in Serum or Plasma VITAMIN D 25 HYDROXY Lab Routine Vitamin D deficiency Expected: 01/28/2026, Expires: 04/29/2026 [facility] Comment on above: Expected: 01/28/2026 , Expires: 04/29/2026 Start: 01-28-2026 End: 04-29-2026 CBC W Auto Differential panel - Blood COMPLETE BLOOD COUNT AND DIFFERENTIAL Lab Routine Acquired hypothyroidism B12 deficiency Medication management Expected: 01/28/2026, Expires: 04/29/2026 [facility] Comment on above: Expected: 01/28/2026 , Expires: 04/29/2026 Start: 01-28-2026 End: 04-29-2026 Cobalamin (Vitamin B12) [Mass/volume] in Serum or Plasma VITAMIN B12 Lab Routine B12 deficiency Expected: 01/28/2026, Expires: 04/29/2026 [facility] Work Phone: Comment on above: Expected: 01/28/2026 , Expires: 04/29/2026 Start: 01-28-2026 End: 04-29-2026 Comprehensive metabolic 2000 panel - Serum or Plasma COMPREHENSIVE METABOLIC PANEL Lab Routine Mixed hyperlipidemia Essential hypertension Elevated blood sugar Expected: 01/28/2026, Expires: 04/29/2026 [facility] Comment on above: Expected: 01/28/2026 , Expires: 04/29/2026 Start: 01-28-2026 End: 04-29-2026 Hemoglobin A1c in Blood HEMOGLOBIN A1C Lab Routine Elevated blood sugar Expected: 01/28/2026, Expires: 04/29/2026 [facility] Comment on above: Expected: 01/28/2026 , Expires: 04/29/2026 Start: 01-28-2026 End: 04-29-2026 LIPID PANEL, NONFASTING LIPID PANEL, NONFASTING Lab Routine Mixed hyperlipidemia Essential hypertension Carotid stenosis, asymptomatic, bilateral Coronary 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[place] coronary artery of [place] heart without angina pectoris Expected: 01/28/2026, Expires: 04/29/2026 [facility] Comment on above: Expected: 01/28/2026 , Expires: 04/29/2026 Start: 01-28-2026 End: 04-29-2026 Thyrotropin [Units/volume] in Serum or Plasma THYROID STIMULATING HORMONE Lab Routine Acquired hypothyroidism Expected: 01/28/2026, Expires: 04/29/2026 [facility] Comment on above: Expected: 01/28/2026 , Expires: 04/29/2026 Start: 01-28-2026 End: 04-29-2026 Urinalysis complete panel - Urine URINALYSIS, WITH MICROSCOPIC Lab Routine Mixed hyperlipidemia Essential hypertension Expected: 01/28/2026, Expires: 04/29/2026 [facility] Comment on above: Expected: 01/28/2026 , Expires: 04/29/2026 Start: 12-25-2025 DIABETES SCREEN DIABETES SCREEN [facility] Start: 12-25-2025 Diabetes Screening Diabetes [facility] Start: 10-11-2025 End: 10-11-2025 Patient encounter procedure 10/11/2025 8:00 AM EDT Office Visit Neurology [facility] [place] [address] Talat Escobedo Jr., MD [address] [place] [address] Sleeping is minimal or not all. I have tried [id number] meds, new mattresses, etc. per web request Neurology Comment on above: Sleeping is minimal or not all. I have tried [id number] meds, new mattresses, etc. per web request Start: 10-01-2025 End: 10-01-2025 Patient encounter procedure 10/01/2025 4:30 PM EST Office Visit Neurology [address] [place] [address] [place] [address] Abby Pate MD [address] [place] [address] Return in about 6 months (around 09/24/2025). Neurology Comment on above: Return in about 6 mo nths (around 09/24/2025). Start: 09-01-2025 Hepatitis B surface antibody level LDL Cholesterol [facility] Start: 08-11-2025 Covid-19 Vaccine () Covid-19 Vaccine () [facility] Start: 06-22-2025 DIABETES SCREEN DIABETES SCREEN [facility] Start: 06-11-2025 End: 09-10-2025 Hemoglobin A1c in Blood HEMOGLOBIN A1C Lab Routine Elevated hemoglobin A1c Expected: 06/11/2025, Expires: 09/10/2025 [facility] Work Phone: Comment on above: Expected: 06/11/2025 , Expires: 09/10/2025 Start: 05-24-2025 End: 05-24-2025 Patient encounter procedure 05/24/2025 9:20 AM EDT Office Visit Cardiology [address] [place] [address] Marj Mackey MD [address] [id number] 6 month follow up Cardiology Comment on above: 6 month follow up Start: 04-12-2025 End: 04-12-2025 Patient encounter procedure Cardiology Comment on above: Recent heart monitor due to possible TIA follow up Start: 04-08-2025 Measuring intake and output [facility] Start: 04-08-2025 Removal of urinary catheter [facility] Start: 04-08-2025 Patient discharge [facility] Start: 04-07-2025 Following clinical p athway protocol [facility] Start: 04-07-2025 Application of intermittent pneumatic compression device [facility] Start: 04-07-2025 Measuring intake and output [facility] Start: 04-07-2025 Ambulation therapy management [facility] Start: 04-07-2025 Catheterization of vein [facility] Start: 04-07-2025 Provision of activit y privileges [facility] Start: 04-07-2025 Admission procedure [facility] Start: 04-07-2025 Assessment of risk o f venous thromboembolism [facility] Start: 04-07-2025 Irrigation of urinar y bladder [facility] Start: 04-07-2025 Taking patient vital signs [facility] Start: 04-07-2025 Vital signs measurements [facility] Start: 04-07-2025 End: 04-07-2025 [facility] Start: 04-07-2025 Verification routine [facility] Start: 04-05-2025 Influenza vaccination Influenza Vacc ine (#1) [facility] Start: 03-24-2025 End: 03-24-2025 Patient encounter procedure Neurology Comment on above: six month follow up Start: 03-12-2025 End: 03-12-2025 Patient encounter procedure 03/12/2025 3:30 PM EDT Office Visit Neurology [address] [place] [phone] Abby Pate MD [address] [place] [address] six month follow up Neurology Comment on above: six month follow up Start: 03-01-2025 End: 03-01-2025 Patient encounter procedure 03/01/2025 9:20 AM EDT Office Visit Cardiology [address] [place] [address] Marj Mackey MD [address] [place], [place] [id number] Recent heart monitor due to possible TIA follow up Cardiology Comment on above: Recent heart monitor due to possible TIA follow up Start: 02-09-2025 Anxiety Screening Anxiety Screening [facility] Start: 02-09-2025 Depression Screening Depression Scre ening [facility] Start: 02-08-2025 End: 02-08-2025 Patient encounter procedure [facility] [place] Comment on above: Medicare Wellness Start: 02-02-2025 End: 05-04-2025 25-hydroxyvitamin D3 [Mass/volume] in Serum or Plasma VITAMIN D 25 HYDROXY Lab Routine Vitamin D deficiency Expected: 02/02/2025, Expires: 05/04/2025 [facility] Comment on above: Expected: 02/02/2025 , Expires: 05/04/2025 Start: 02-02-2025 End: 05-04-2025 CBC W Auto Differential panel - Blood COMPLETE BLOOD COUNT AND DIFFERENTIAL Lab Routine Essential hypertension B12 deficiency Elevated blood sugar Expected: 02/02/2025, Expires: 05/04/2025 [facility] Comment on above: Expected: 02/02/2025 , Expires: 05/04/2025 Start: 02-02-2025 End: 05-04-2025 Cobalamin (Vitamin B12) [Mass/volume] in Serum or Plasma VITAMIN B12 Lab Routine B12 deficiency Expected: 02/02/2025, Expires: 05/04/2025 [facility] Comment on above: Expected: 02/02/2025 , Expires: 05/04/2025 Start: 02-02-2025 End: 05-04-2025 Comprehensive metabolic 2000 panel - Serum or Plasma COMPREHENSIVE METABOLIC PANEL Lab Routine Essential hypertension Expected: 02/02/2025, Expires: 05/04/2025 [facility] Comment on above: Expected: 02/02/2025 , Expires: 05/04/2025 Start: 02-02-2025 End: 05-04-2025 Hemoglobin A1c in Blood HEMOGLOBIN A1C Lab Routine Elevated blood sugar Expected: 02/02/2025, Expires: 05/04/2025 [facility] Comment on above: Expected: 02/02/2025 , Expires: 05/04/2025 Start: 02-02-2025 End: 05-04-2025 LIPID PANEL, NONFASTING LIPID PANEL, NONFASTING Lab Routine Mixed hyperlipidemia Expected: 02/02/2025, Expires: 05/04/2025 [facility] Work Phone: Comment on above: Expected: 02/02/2025 , Expires: 05/04/2025 Start: 02-02-2025 End: 05-04-2025 Thyrotropin [Units/volume] in Serum or Plasma THYROID STIMULATING HORMONE Lab Routine Acquired hypothyroidism Expected: 02/02/2025, Expires: 05/04/2025 [facility] Comment on above: Expected: 02/02/2025 , Expires: 05/04/2025 Start: 02-02-2025 End: 05-04-2025 Urinalysis complete panel - Urine URINALYSIS, WITH MICROSCOPIC Lab Routine Essential hypertension Expected: 02/02/2025, Expires: 05/04/2025 [facility] Comment on above: Expected: 02/02/2025 , Expires: 05/04/2025 Start: 01-30-2025 Hepatitis B surface antibody level LDL Cholesterol [facility] Start: 01-19-2025 Patient discharge [facility] Start: 01-19-2025 Telemedicine consult ation with patient [facility] Start: 01-19-2025 Following clinical p athway protocol [facility] Start: 01-19-2025 Ambulation without limitation [facility] Start: 01-19-2025 Aspiration precautions [facility] Start: 01-19-2025 Assessment of risk o f venous thromboembolism [facility] Start: 01-19-2025 Cardiac monitoring [facility] Start: 01-19-2025 Catheterization of vein [facility] Start: 01-19-2025 Consultation [facility] Start: 01-19-2025 Continuous pulse oximetry [facility] Start: 01-19-2025 Elevation of head of bed [facility] Start: 01-19-2025 Exercises [facility] Start: 01-19-2025 Insertion of cathete r into peripheral vein [facility] Start: 01-19-2025 Measuring intake and output [facility] Start: 01-19-2025 Notification of physician [facility] Start: 01-19-2025 Patient referral to dietitian [facility] Start: 01-19-2025 Providing care accor ding to standard [facility] Start: 01-19-2025 Referral to occupati onal therapist [facility] Start: 01-19-2025 Referral to service [facility] Start: 01-19-2025 Speech therapy assessment [facility] Start: 01-19-2025 Tobacco use cessatio n education [facility] Start: 01-19-2025 Vital signs measurements [facility] Start: 01-19-2025 MRI of brain without contrast Brain without Contrast [facility] Start: 01-19-2025 Verification routine [facility] Start: 01-19-2025 Admission procedure [facility] Start: 01-19-2025 Hospital admission, emergency, from emergency room, medical nature [facility] Start: 01-19-2025 End: 01-19-2025 Oxygen therapy [facility] Start: 01-19-2025 End: 01-19-2025 [facility] Start: 01-18-2025 X-ray of lumbar spin e, two or three views Lumbar Spine 2 or 3 Views [facility] Start: 01-18-2025 XR Lumbar spine 2 or 3 Views [facility] Start: 12-12-2024 DIABETES SCREEN DIABETES SCREEN [facility] Start: 09-17-2024 End: 09-17-2024 Patient encounter procedure 09/17/2024 9:40 AM EST Office Visit Cardiology [address] [place], [place] [address] Coronary 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[place] coronary artery of [place] heart without... Cardiology Comment on above: Coronary artery dise ase involving [place] coronary artery of [place] heart without... Start: 09-11-2024 End: 09-11-2024 Patient encounter procedure 09/11/2024 3:00 PM EST Office Visit Neurology [address] [place] [phone] Abby Pate MD [address] [place] [address] Six month follow up Neurology Comment on above: Six month follow up Start: 09-01-2024 End: 09-01-2024 ambulatory 09/01/2024 7:45 AM EST Results [facility] [address] [place] [address] [facility] Comment on above: Labs Start: 08-31-2024 End: 08-31-2024 Patient encounter procedure 08/31/2024 3:40 PM EST Office Visit Cardiology [address] [place] [phone] Marj Mackey MD [address] [place] [address] 6 month follow up Cardiology Comment on above: 6 month follow up Start: 08-31-2024 End: 11-30-2024 Comprehensive metabolic 2000 panel - Serum or Plasma COMPREHENSIVE METABOLIC PANEL Lab Routine Coronary 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[place] coronary artery of [place] heart without angina pectoris Hyperlipidemia, unspecified hyperlipidemia type Expected: 08/31/2024, Expires: 11/30/2024 [facility] Comment on above: Expected: 08/31/2024 , Expires: 11/30/2024 Start: 08-31-2024 End: 11-30-2024 Lipid 1996 panel - Serum or Plasma LIPID PANEL BASIC Lab Routine Hyperlipidemia, unspecified hyperlipidemia type Expected: 08/31/2024, Expires: 11/30/2024 [facility] Comment on above: Expected: 08/31/2024 , Expires: 11/30/2024 Start: 08-31-2024 End: 11-30-2024 Natriuretic peptide.B prohormone N-Terminal [Mass/volume] in Serum or Plasma NT PRO BNP Lab Routine SAUCEDA (dyspnea on exertion) Expected: 08/31/2024, Expires: 11/30/2024 [facility] Comment on above: Expected: 08/31/2024 , Expires: 11/30/2024 Start: 08-05-2024 Advance Directive Discussion Advance Directive Discussion [facility] Start: 06-09-2024 DIABETES SCREEN DIABETES SCREEN [facility] Start: 05-08-2024 End: 05-08-2024 Patient encounter procedure 05/08/2024 1:00 PM EDT Appointment [facility] [address] [place] [address] Bilateral leg pain [M79.604, M79.605] [facility] Comment on above: Bilateral leg pain [ M79.604, M79.605] Start: 05-07-2024 End: 08-06-2024 CBC W Auto Differential panel - Blood [facility] Work Phone: Comment on above: Expected: 05/07/2024 , Expires: 08/06/2024 Start: 05-07-2024 End: 08-06-2024 Comprehensive metabolic 2000 panel - Serum or Plasma [facility] Comment on above: Expected: 05/07/2024 , Expires: 08/06/2024 Start: 05-07-2024 End: 08-06-2024 Magnesium [Mass/volume] in Serum or Plasma [facility] Comment on above: Expected: 05/07/2024 , Expires: 08/06/2024 Start: 05-07-2024 End: 08-06-2024 Phosphate [Mass/volume] in Serum or Plasma [facility] Comment on above: Expected: 05/07/2024 , Expires: 08/06/2024 Start: 04-07-2024 End: 04-07-2024 Patient encounter procedure 04/07/2024 10:40 AM EDT Office Visit Family Medicine [place] [address] [place], [place] [id number] Ella Valdovinos PA-C [address] [place] [address] 8 wk follow up, noctural urination/med follow upo [facility] Comment on above: 8 wk follow up, noct ural urination/med follow upo Start: 04-05-2024 Covid-19 Vaccine ( season) Covid-19 Vaccine ( season) [facility] Start: 04-05-2024 Covid-19 Vaccine ( season) Covid-19 Vaccine ( season) [facility] Start: 04-05-2024 Influenza vaccination [facility] Start: 03-11-2024 End: 03-11-2024 Patient encounter procedure 03/11/2024 1:00 PM EDT Office Visit Neurology [address] [place] [phone] Abby Pate MD [address] [place] [address] 6 month follow up Neurology Comment on above: 6 month follow up Start: 02-10-2024 End: 02-10-2024 Patient encounter procedure 02/10/2024 9:40 AM EDT Office Visit [facility] [place] [address] [place] [address] Ella Valdovinos PA-C [address] [place] [address] Medicare Wellness [facility] [place] Comment on above: Medicare Wellness Start: 01-30-2024 End: 01-30-2024 Patient encounter procedure 01/30/2024 9:00 AM EDT Office Visit [facility] [place] [address] [place] [address] Oniel Francis MD [address] [place] [address] Medicare Wellness [facility] [place] Comment on above: [employer] Wellness Start: 01-17-2024 End: 04-17-2024 25-hydroxyvitamin D3 [Mass/volume] in Serum or Plasma VITAMIN D 25 HYDROXY Lab Routine Vitamin D deficiency Expected: 01/17/2024, Expires: 04/17/2024 [facility] Comment on above: Expected: 01/17/2024 , Expires: 04/17/2024 Start: 01-17-2024 End: 04-17-2024 CBC W Auto Differential panel - Blood COMPLETE BLOOD COUNT AND DIFFERENTIAL Lab Routine Acquired hypothyroidism Expected: 01/17/2024, Expires: 04/17/2024 [facility] Comment on above: Expected: 01/17/2024 , Expires: 04/17/2024 Start: 01-17-2024 End: 04-17-2024 Cobalamin (Vitamin B12) [Mass/volume] in Serum or Plasma VITAMIN B12 Lab Routine B12 deficiency Expected: 01/17/2024, Expires: 04/17/2024 [facility] Comment on above: Expected: 01/17/2024 , Expires: 04/17/2024 Start: 01-17-2024 End: 04-17-2024 Comprehensive metabolic 2000 panel - Serum or Plasma COMPREHENSIVE METABOLIC PANEL Lab Routine 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 Elevated blood sugar Essential hypertension Expected: 01/17/2024, Expires: 04/17/2024 [facility] Comment on above: Expected: 01/17/2024 , Expires: 04/17/2024 Start: 01-17-2024 End: 04-17-2024 Hemoglobin A1c in Blood HEMOGLOBIN A1C Lab Routine Elevated blood sugar Expected: 01/17/2024, Expires: 04/17/2024 [facility] Comment on above: Expected: 01/17/2024 , Expires: 04/17/2024 Start: 01-17-2024 End: 04-17-2024 LIPID PANEL, NONFASTING LIPID PANEL, NONFASTING Lab Routine 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 Essential hypertension Expected: 01/17/2024, Expires: 04/17/2024 [facility] Comment on above: Expected: 01/17/2024 , Expires: 04/17/2024 Start: 01-17-2024 End: 04-17-2024 Thyrotropin [Units/volume] in Serum or Plasma THYROID STIMULATING HORMONE Lab Routine Acquired hypothyroidism Expected: 01/17/2024, Expires: 04/17/2024 [facility] Comment on above: Expected: 01/17/2024 , Expires: 04/17/2024 Start: 01-17-2024 End: 04-17-2024 Urinalysis complete panel - Urine URINALYSIS, WITH MICROSCOPIC Lab Routine Mixed hyperlipidemia Essential hypertension Expected: 01/17/2024, Expires: 04/17/2024 [facility] Comment on above: Expected: 01/17/2024 , Expires: 04/17/2024 Start: 01-14-2024 End: 01-29-2025 XR Chest PA and Lateral XR CHEST 2V FRONTAL/LAT Radiology Routine URI, acute X-ray of lung, abnormal Expected: 01/14/2024, Expires: 01/29/2025 [facility] Work Phone: Comment on above: Expected: 01/14/2024 , Expires: 01/29/2025 Start: 12-31-2023 End: 12-31-2023 Patient encounter procedure 12/31/2023 10:40 AM EDT Office Visit [facility] [place] [address] [place] [address] Oniel Francis MD [address] [place] [address] 12/13 EC Follow Up [facility] [place] Comment on above: 12/13 EC Follow Up Start: 12-26-2023 Hepatitis B surface antibody level LDL CHOLESTEROL [facility] Start: 12-23-2023 End: 12-23-2023 Patient encounter procedure 12/23/2023 3:40 PM EDT Office Visit Cardiology [address] [place] [phone] Marj Mackey MD [address] [facility] [address] [place] [address] 6 month follow up Cardiology Comment on above: 6 month follow up Start: 10-30-2023 BP CONTROLLED (<130/80) BP CONTROLLE D (<130/80) [facility] Start: 09-27-2023 Covid-19 Vaccine () Covid-19 Vaccine () [facility] Start: 08-05-2023 Advance Directive Discussion Advance Directive Discussion [facility] Start: 08-05-2023 Behavioral Health Screening Behavioral Health Screening [facility] Start: 08-05-2023 Depression Assessment Depression Ass essment [facility] Start: 06-22-2023 ANNUAL PCP TEAM BODY TRIMMER UPHOLSTERER SHANDA DISEASE VISIT ANNUAL PCP TEAM CHRONIC DISEASE VISIT [facility] Start: 06-22-2023 BP CONTROLLED (<130/80) BP CONTROLLE D (<130/80) [facility] Start: 06-14-2023 Hepatitis B surface antibody level LDL CHOLESTEROL [facility] Start: 04-23-2023 BP CONTROLLED (<130/80) BP CONTROLLE D (<130/80) [facility] Start: 04-05-2023 Influenza vaccination C [facility] Start: 12-15-2022 BP CONTROLLED (<130/80) BP CONTROLLE D (<130/80) [facility] Start: 12-12-2022 Adult depression scr eening assessment DEPRESSION SCREENING [facility] Start: 12-12-2022 ANNUAL PCP TEAM BODY TRIMMER UPHOLSTERER SHANDA DISEASE VISIT ANNUAL PCP TEAM CHRONIC DISEASE VISIT [facility] Start: 12-12-2022 Hepatitis B surface antibody level LDL CHOLESTEROL [facility] Start: 12-07-2022 End: 02-06-2023 25-hydroxyvitamin D3 [Mass/volume] in Serum or Plasma VITAMIN D 25 HYDROXY Lab Routine Vitamin D deficiency Expected: 12/07/2022, Expires: 02/06/2023 [facility] Work Phone: Comment on above: Expected: 12/07/2022 , Expires: 02/06/2023 Start: 12-07-2022 End: 02-06-2023 CBC W Auto Differential panel - Blood CBC + DIFF Lab Routine Acquired hypothyroidism Medication management Expected: 12/07/2022, Expires: 02/06/2023 [facility] Work Phone: Comment on above: Expected: 12/07/2022 , Expires: 02/06/2023 Start: 12-07-2022 End: 02-06-2023 Cobalamin (Vitamin B12) [Mass/volume] in Serum or Plasma VITAMIN B12 BLOOD Lab Routine B12 deficiency Expected: 12/07/2022, Expires: 02/06/2023 [facility] Work Phone: Comment on above: Expected: 12/07/2022 , Expires: 02/06/2023 Start: 12-07-2022 End: 02-06-2023 Comprehensive metabolic 2000 panel - Serum or Plasma COMP METABOLIC PANEL Lab Routine Mixed hyperlipidemia Essential hypertension Coronary 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[place] coronary artery of [place] heart without angina pectoris Expected: 12/07/2022, Expires: 02/06/2023 [facility] Work Phone: Comment on above: Expected: 12/07/2022 , Expires: 02/06/2023 Start: 12-07-2022 End: 02-06-2023 Hemoglobin A1c in Blood HGB A1C Lab Routine Elevated blood sugar Expected: 12/07/2022, Expires: 02/06/2023 [facility] Work Phone: Comment on above: Expected: 12/07/2022 , Expires: 02/06/2023 Start: 12-07-2022 End: 02-06-2023 LIPID PANEL, NONFASTING LIPID PANEL, NONFASTING Lab Routine Mixed hyperlipidemia Essential hypertension Coronary 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[place] coronary artery of [place] heart without angina pectoris Expected: 12/07/2022, Expires: 02/06/2023 [facility] Work Phone: Comment on above: Expected: 12/07/2022 , Expires: 02/06/2023 Start: 12-07-2022 End: 02-06-2023 Thyrotropin [Units/volume] in Serum or Plasma TSH BLD Lab Routine Acquired hypothyroidism Expected: 12/07/2022, Expires: 02/06/2023 [facility] Work Phone: Comment on above: Expected: 12/07/2022 , Expires: 02/06/2023 Start: 12-07-2022 End: 02-06-2023 Urinalysis complete panel - Urine URINALYSIS, WITH MICROSCOPIC Lab Routine Mixed hyperlipidemia Essential hypertension Expected: 12/07/2022, Expires: 02/06/2023 [facility] Work Phone: Comment on above: Expected: 12/07/2022 , Expires: 02/06/2023 Start: 10-06-2022 COVID-19 VACCINE (6 - Moderna series) COVID-19 VACCINE (6 - Moderna series) [facility] Start: 08-14-2022 BP CONTROLLED (<130/80) BP CONTROLLE D (<130/80) [facility] Start: 08-05-2022 ADVANCE DIRECTIVE DISCUSSION ADVANCE DIRECTIVE DISCUSSION [facility] Start: 08-05-2022 DEPRESSION ASSESSMENT DEPRESSION ASS ESSMENT [facility] Start: 06-09-2022 ANNUAL PCP TEAM BODY TRIMMER UPHOLSTERER SHANDA DISEASE VISIT ANNUAL PCP TEAM CHRONIC DISEASE VISIT [facility] Start: 06-09-2022 Hepatitis B surface antibody level LDL CHOLESTEROL [facility] Start: 06-08-2022 Adult depression scr eening assessment DEPRESSION SCREENING [facility] Start: 04-30-2022 End: 06-30-2022 Alanine aminotransferase [Enzymatic activity/volume] in Serum or Plasma ALT/SGPT Lab Routine Mixed hyperlipidemia Expected: 04/30/2022, Expires: 06/30/2022 [facility] Work Phone: Comment on above: Expected: 04/30/2022 , Expires: 06/30/2022 Start: 04-30-2022 End: 06-30-2022 Aspartate aminotransferase [Enzymatic activity/volume] in Serum or Plasma AST/SGOT BLD Lab Routine Mixed hyperlipidemia Expected: 04/30/2022, Expires: 06/30/2022 [facility] Work Phone: Comment on above: Expected: 04/30/2022 , Expires: 06/30/2022 Start: 04-30-2022 End: 06-30-2022 Lipid 1996 panel - Serum or Plasma LIPID PANEL BASIC Lab Routine Mixed hyperlipidemia Expected: 04/30/2022, Expires: 06/30/2022 [facility] Work Phone: Comment on above: Expected: 04/30/2022 , Expires: 06/30/2022 Start: 04-20-2022 COVID-19 VACCINE (5 - Booster for Moderna series) COVID-19 VACCINE (5 - Booster for Moderna series) [facility] Start: 04-05-2022 Influenza vaccination INFLUENZA (#1) [facility] Start: 10-02-2021 COVID-19 VACCINE (4 - Booster for Moderna series) COVID-19 VACCINE (4 - Booster for Moderna series) [facility] Start: 08-05-2021 ADVANCE DIRECTIVE DISCUSSION ADVANCE DIRECTIVE DISCUSSION [facility] Start: 08-05-2021 DEPRESSION ASSESSMENT DEPRESSION ASS ESSMENT [facility] Start: 06-22-2020 BP CONTROLLED (<130/80) BP CONTROLLE D (<130/80) [facility] Cardiac event recording [facility] COVID & INFLUENZA A/ B & RSV PCR, ROUTINE COVID & INFLUENZA A/B & RSV PCR, ROUTINE Microbiology Routine Acute URI Ordered: 02/26/2025 [facility] Work Phone: Comment on above: Ordered: 02/26/2025 End: 04-23-2023 ECG COMPLETE ECG COMPLETE ECG Routine Aortic valve replaced 1 Occurrences starting 04/23/2022 until 04/23/2023 [facility] Work Phone: Comment on above: 1 Occurrences starti ng 04/23/2022 until 04/23/2023 ECG COMPLETE ECG COMPLETE ECG Routine Essential hypertension Hyperlipidemia, unspecified hyperlipidemia type Ordered: 06/18/2023 [facility] Work Phone: Comment on above: Ordered: 06/18/2023 ECG COMPLETE ECG COMPLETE ECG Routine Screening for ischemic heart disease Ordered: 12/18/2023 [facility] Work Phone: Comment on above: Ordered: 12/18/2023 ECG COMPLETE ECG COMPLETE ECG 12/23/2023 3:45 PM EDT [facility] End: 06-24-2024 Echocardiography ECHO Cardiology Routine Aortic valve replaced SAUCEDA (dyspnea on exertion) 1 Occurrences starting 06/24/2023 until 06/24/2024 [facility] Work Phone: Comment on above: 1 Occurrences starti ng 06/24/2023 until 06/24/2024 End: 08-31-2025 Echocardiography ECHO Cardiology Routine 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 replaced 1 Occurrences starting 08/31/2024 until 08/31/2025 [facility] Work Phone: Comment on above: 1 Occurrences starti ng 08/31/2024 until 08/31/2025 Patient referral [facility] Work Phone: End: 04-30-2023 US CAROTID ARTERIES CLAUDY VAS LAB US CAROTID ARTERIES CLAUDY VAS LAB Vascular Lab Routine Carotid stenosis, asymptomatic, bilateral 1 Occurrences starting 04/30/2022 until 04/30/2023 [facility] Work Phone: Comment on above: 1 Occurrences starti ng 04/30/2022 until 04/30/2023 End: 06-24-2024 US CAROTID ARTERIES CLAUDY VAS LAB US CAROTID ARTERIES CLAUDY VAS LAB Vascular Lab Routine Carotid stenosis, asymptomatic, bilateral 1 Occurrences starting 06/24/2023 until 06/24/2024 [facility] Work Phone: Comment on above: 1 Occurrences starti ng 06/24/2023 until 06/24/2024 End: 06-06-2025 US Lower extremity vein - bilateral US DVT LOWER BILATERAL Radiology STAT Bilateral leg pain Bilateral lower extremity edema 1 Occurrences starting 05/07/2024 until 06/06/2025 [facility] Comment on above: 1 Occurrences starti ng 05/07/2024 until 06/06/2025 [facility] Immunizations Immunization Date Immunization Notes Care Provider Fa [facility] 02-08-2025 COVID-19 vaccine, ag e 12+ yr ([place] [employer] [facility] Oniel Francis MD Work Phone: [facility] 06-03-2024 influenza virus vacc ine, unspecified formulation Oniel Francis MD Work Phone: [facility] 06-14-2023 respiratory syncytia l virus (RSV) vaccine, adjuvanted (AREXVY) Ella Valdovinos PA-C Work Phone: [facility] 06-14-2023 RSV vaccine preF3, recombinant DR DEAN CALDWELL MD [facility] 05-27-2023 SARS-CoV-2 (COVID-19 ) [id number] DR DEAN CALDWELL MD [facility] 06-08-2022 SARS-CoV-2 (CV19)mRNA-[id number] DEAN CALDWELL MD [facility] 05-23-2022 influenza, high-dose , quadrivalent vaccine (FLUZONE HIGH DOSE QUADRIVALENT) Mi Nurse Work Phone: [facility] Work Phone: 05-23-2022 influenza virus vacc ine, unspecified formulation Marj Mackey MD Work Phone: [facility] 02-23-2022 SARS-CoV-2 (COVID-19 ) [id number] DEAN CALDWELL MD [facility] Comment on above: Result Comment: 2023: BOOSTER #2 12-12-2021 pneumococcal polysaccharide vaccine, 23 valent Abby Pate MD Work Phone: [facility] 06-09-2021 influenza virus vacc ine, unspecified formulation DR DEAN CALDWELL MD [facility] 06-09-2021 influenza, high-dose , quadrivalent vaccine (FLUZONE HIGH DOSE QUADRIVALENT) Ella Valdovinos PA-C Work Phone: [facility] 06-01-2021 SARS-CoV-2 (COVID-19 ) [id number] DEAN CALDWELL MD [facility] 09-28-2020 COVID-19 vaccine, fu ll dose (MODERNA) Ella Valdovinos PA-C Work Phone: [facility] Work Phone: 08-31-2020 COVID-19 vaccine, fu ll dose (MODERNA) Ella Valdovinos PA-C Work Phone: [facility] Work Phone: 06-22-[address] DEAN CALDWELL MD [facility] 06-21-2020 zoster vaccine recombinant Ella Valdovinos PA-C Work Phone: [facility] 05-25-2020 influenza virus vacc ine, unspecified formulation DR DEAN CALDWELL MD [facility] 05-25-2020 influenza, high-dose , quadrivalent vaccine (FLUZONE HIGH DOSE QUADRIVALENT) Ella Valdovinos PA-C Work Phone: [facility] Work Phone: 04-26-2020 zoster vaccine recombinant Ella TORRESC Work Phone: [facility] 06-09-2019 influenza virus vacc ine, unspecified formulation DR DEAN CALDWELL MD [facility] 05-14-2018 influenza virus vacc ine, unspecified formulation DR DEAN CALDWELL MD [facility] 12-03-2017 diphtheria, tetanus toxoids and acellular pertussis vaccine, unspecified formulation Ella Valdovinos PA-C Work Phone: [facility] 12-03-2017 tetanus toxoid, redu lorraine diphtheria toxoid, and acellular pertussis vaccine, adsorbed Ella Valdovinos PA-C Work Phone: [facility] 06-19-2017 influenza virus vacc ine, unspecified formulation DR DEAN CALDWELL MD [facility] 06-19-2017 influenza, injectabl e, quadrivalent, contains preservative Ella Valdovinos PA-C Work Phone: [facility] 05-25-2016 influenza virus vacc ine, unspecified formulation DR DEAN CALDWELL MD [facility] 05-25-2016 influenza, high dose seasonal, preservative-free Ella Valdovinos PA-C Work Phone: [facility] 12-27-2015 pneumococcal polysaccharide vaccine, 23 valent Ella Valdovinos PA-C Work Phone: [facility] 05-16-2015 influenza virus vacc ine, unspecified formulation Ella Valdovinos PA-C Work Phone: [facility] Work Phone: 12-22-2014 pneumococcal conjuga te vaccine, 13 valent Ella Valdovinos PA-C Work Phone: [facility] Work Phone: 10-22-2014 tetanus toxoid, redu lorraine diphtheria toxoid, and acellular pertussis vaccine, adsorbed Ella Valdovinos PA-C Work Phone: [facility] Work Phone: 10-18-2014 pneumococcal conjuga te vaccine, 13 valent Ella Valdovinos PA-C Work Phone: [facility] 05-12-2014 influenza virus vacc ine, unspecified formulation DR DEAN CALDWELL MD [facility] 05-12-2014 influenza, seasonal, injectable Ella Valdovinos PA-C Work Phone: [facility] 05-16-2013 influenza virus vacc ine, unspecified formulation Ella Valdovinos PA-C Work Phone: [facility] 05-24-2012 influenza virus vacc ine, unspecified formulation Ella Valdovinos PA-C Work Phone: [facility] 06-22-2011 influenza virus vacc ine, unspecified formulation Ella Valdovinos PA-C Work Phone: [facility] 05-25-2010 influenza virus vacc ine, unspecified formulation Ella Valdovinos PA-C Work Phone: [facility] Work Phone: 05-24-2009 influenza virus vacc ine, unspecified formulation Ella Valdovinos PA-C Work Phone: [facility] Work Phone: 05-24-2009 zoster vaccine, live Ella Valdovinos PA-C Work Phone: [facility] Work Phone: 06-10-2007 influenza virus vacc ine, unspecified formulation Ella Valdovinos PA-C Work Phone: [facility] 2006 pneumococcal polysaccharide vaccine, 23 valent Ella Valdovinos PA-C Work Phone: [facility] Work Phone: 07-05-2005 influenza virus vacc ine, unspecified formulation Ella Valdovinos PA-C Work Phone: [facility] Work Phone: 06-30-2005 diphtheria and tetan us toxoids, adsorbed for pediatric use Ella Valdovinos PA-C Work Phone: [facility] Work Phone: Payers Date Payer Category Payer Self-pay 2019 Medicare (Managed Care) [employer] H[employer] Member Subscriber Plan / Payer (Effective 2019-Present) Name: Soniya Cooley Relation to Subscriber: Self Name: Omero Cooleylie Ella Payer ID: [id number] ([facility]) Group ID: [id number] Type: HMO Address: [address] [place] [id number] 2019 Unknown [employer]LIN AR[employer] S [employer]THYAMIL MEDIBLUE O [id number] 2019-Present [phone] [address] [place] [address] [facility] [id number] 2019 Unknown [id number]. [id number] 2019 Unknown [id number] 1940 Unknown [id number] 2.16.840.1.721343.3.579. 2.278 1940 Unknown [id number] 2.16.840.1.429810.3.579. 2.278 1940 Unknown [id number] 2.16.840.1.119405.3.579. 2.278 1940 Unknown [id number] 2.16.840.1.164558.3.579. 2.627 1940 Unknown [id number] 2.16.840.1.677143.3.579. 2.627 1940 Unknown [id number] 2.16.840.1.385056.3.579. 2.627 Unknown [id number] Unknown [id number] 2.16.840.1.531059.3.579. 2.462 Unknown [id number] 2.16.840.1.203703.3.579. 2.462 Unknown [id number] 2.16.840.1.203782.3.579. 2.462 Unknown [id number] 2.16.840.1.845679.3.579. 2.462 Unknown [id number] 2.16.840.1.418300.3.579. 2.462 Unknown [id number] 2.16.840.1.923458.3.579. 2.462 Unknown [id number] 2.16.840.1.233894.3.579. 2.462 Unknown [id number] 2.16840.1.308506.3.579. 2.462 Unknown [id number] 2.16.840.1.738669.3.579. 2.462 Social History Date Type Detail Facility Start: 02-22-2011 End: 03-24-2025 Tobacco smoking status NHIS Never smoked tobacco [facility] Start: 08-14-2021 End: 04-08-2025 Alcohol intake Current drinker of alcohol (finding) [facility] Start: 08-14-2021 End: 09-11-2024 Alcohol intake [facility] Start: 06-03-2020 End: 06-19-2022 History SDOH Alcohol Frequency 3 [facility] Start: 12-10-2019 End: 06-03-2020 History SDOH Alcohol Std Drinks 98 [facility] Start: 06-03-2020 End: 06-19-2022 History SDOH Alcohol Binge 1 [facility] Start: 03-14-2020 End: 06-19-2022 History SDOH Social Connections Phone 4 [facility] Start: 03-14-2020 End: 06-19-2022 History SDOH Social Connections Get Together 2 [facility] Start: 03-14-2020 History SDOH Physica l Activity DPW 6 [facility] Start: 12-10-2019 End: 06-19-2022 History SDOH Physical Activity MPS 5 [facility] Start: 12-10-2019 Education 21 [facility] Start: 1940 Sex Assigned At Male C [facility] Work Phone: Start: 11-14-2021 End: 06-22-2022 Exposure to SARS-CoV-2 (event) Not sure [facility] Start: 02-22-2011 Tobacco use and exposure Smoke less tobacco non-user [facility] Work Phone: Start: 06-19-2022 End: 09-11-2024 Social connection and isolation panel [facility] Do you belong to any clubs or organizations such as [employer] groups, [employer], [employer] or [employer] groups, or school groups? No [facility] Are you now , , , , never or living with a partner? [facility] How often to you hav e a drink containing alcohol? 2-4 times a month [facility] How many standard dr inks containing alcohol do you have on a typical day? 1 or 2 [facility] How often do you hav e 6 or more drinks on 1 occasion? Never [facility] Start: 07-06-2012 How hard is it for y ou to pay for the very basics like food, housing, medical care, and heating Not hard at all [facility] Do you feel stress - tense, restless, nervous, or anxious, or unable to sleep at night because your mind is troubled all the time - these days [OSQ] Not at all [facility] (I/We) worried norbert er (my/our) food would run out before (I/we) got money to buy more. Never true [facility] Start: 10-10-2018 Gender identity Identifies as male gender (finding) [facility] Work Phone: Sex Assigned At Sex [facility] Do you belong to any clubs or organizations such as [employer], [employer], [employer] or [employer] groups, or school groups? Yes [facility] Start: 05-29-2016 Alcohol Alcohol [facility] Start: 05-29-2016 Lives Lives [facility] Start: 05-29-2016 Tobacco Use Tobacco Use [facility] How often to you hav e a drink containing alcohol? Monthly or less [facility] Medical Equipment Procedure Code Equipment Code Equipment Original Text Equipment Identifier Dates [place] Thk1.65mm P tfe 4x.5in Cardiovascular Sterile - [id number] Start: 10-29-2018 Valve Aort 27mm Crp-Ed Thfx - [id number] Start: 10-29-2018 Goals Date Patient Goal Desired Activity /State Personal health goal Functional Status Date Assessment Result Facility 04-08-2025 Functional status Chair [facility] Work Phone: 02-08-2025 Total score [AUDIT-C] 1 02/09/20 8:03 AM EDT Mayra German MA [facility] 01-19-2025 Functional status Activity Abili ty Independent [facility] Work Phone: 02-19-2024 Functional Status Mod I [facility] 02-19-2024 Functional Status Single level home [facility] 02-19-2024 Functional Status Front wheeled walker [facility] 02-19-2024 Functional Status [facility] 02-19-2024 Functional Status Identified as high risk, Fall ID band on, Room located near nursing station, Bed alert on, Door open, Bathroom light on, Non-Slip footwear, Room check performed [facility] 02-19-2024 Functional Status [facility] 02-18-2024 Functional Status [facility] 02-18-2024 Functional Status [facility] 02-18-2024 Functional Status [facility] 02-18-2024 Functional Status Maintained [facility] 11-03-2018 Are you deaf, or do you have serious difficulty hearing No 11/03/2018 12:09 PM EDT Bekah Garza (Rn)(Hist), RN No [facility] 11-03-2018 Are you blind, or do you have serious difficulty seeing, even when wearing glasses No 11/03/2018 12:09 PM EDT Bekah GarzaRn)(Hist), RN No [facility] 11-03-2018 Do you have serious difficulty walking or climbing stairs No 11/03/2018 12:09 PM EDT Bekah GarzaRn)(Hist), RN No [facility] 11-03-2018 Do you have difficul ty dressing or bathing No 11/03/2018 12:09 PM EDT Bekah GarzaRn)(Hist), RN No [facility] 11-03-2018 Because of a physica l, mental, or emotional condition, do you have difficulty doing errands alone such as visiting a physician's office or shopping No 11/03/2018 12:09 PM EDT Bekah GarzaRn)(Hist), RN No [facility] Mental Status Date Assessment Result Facility 04-08-2025 Cognitive function Level Of Cons ciousness Awake;Alert;Appropriate;Fol lows Commands [facility] Work Phone: 04-08-2025 Cognitive function Voice/Name [facility] Work Phone: 01-19-2025 Cognitive function Voice/Name [facility] Work Phone: 02-19-2024 Mental Status Oriented x 4 [facility] 02-18-2024 Mental Status [facility] 02-18-2024 Mental Status [facility] 11-03-2018 Because of a physica l, mental, or emotional condition, do you have serious difficulty concentrating, remembering, or making decisions No 11/03/2018 12:09 PM EDT Bekah GarzaRn)(Hist), RN No [facility] Clinical Notes 10-03-2018 to 04-08-2025 Mayra German MA - 04/08/2025 11:45 AM EDT Note Date & Type Note Facility 04-08-2025 Consult note [facility] 04-08-2025 Consult note [facility] 04-08-2025 History of Presen t illness Narrative Scan on 04/08/2025 7:41 AM by Provider, External, PAArielleC: Dr. Jara discharge summary documented in this encounter [facility] 04-08-2025 Discharge summary Note Date/Time April 08, 2025 7:31am [facility] Medical Records Department [address] [place] [address] Discharge Summary 04/08/25 0730 MR#: [id number] Acct: [id number] Name: SONIYA COOLEY Rep #:[id number] : 1940 84 From: Andi Jara MD PCP: Dr. Oniel Francis MD Status:ADM DARI [place] [facility] [place] Providers Date of Admission: 04/07/25 Date of Discharge: 04/08/25 Primary Care Physician: Dr. Oniel Francis MD Reason For Visit: TURP Medications at Discharge Home Medications ivqkpgiw-xhs-eujqk acid 0.4 mg-lycopene 300 mcg-lutein 250 mcg tablet 1 ea PO DAILY SUPP 05/28/16 acetaminophen 500 mg tablet 1,000 mg PO TID PRN fever or pain 05/29/19 cyanocobalamin (vitamin B-12) 500 mcg sublingual tablet 1,000 mcg PO DAILY SUPP 05/29/19 aspirin 81 mg chewable tablet 81 mg PO DAILY PER 12/22/19 Held on 04/07/25. Instructions: Resume on 04/21/25. carbidopa 25 mg-levodopa 100 mg tablet 3 tab PO TID [facility] 02/03/21 cholecalciferol (vitamin D3) 25 mcg (1,000 unit) tablet 2,000 unit PO BID SUPP 02/03/21 fluticasone propionate 50 mcg/actuation nasal spray,suspension (Allergy Relief (fluticasone)) 1 spray intranasal DAILY PRN nasal congestion 02/03/21 levothyroxine 25 mcg tablet 25 mcg PO DAILY THYROID 02/03/21 atorvastatin 80 mg tablet 80 mg PO QHS CHOLESTEROL 01/19/25 propranolol 80 mg capsule,24 hr,extended release 80 mg PO Q24H BP 01/19/25 tamsulosin 0.4 mg capsule 0.8 mg PO QHS PER 01/19/25 clopidogrel 75 mg tablet (Plavix) 75 mg PO DAILY BLOOD THINNER 03/24/25 Held on 04/07/25. Instructions: Resume on 04/21/25. nitroglycerin 0.4 mg sublingual tablet 0.4 mg sublingual Q5M PRN CHEST PAIN 03/24/25 ezetimibe 10 mg tablet 10 mg PO DAILY 03/25/25 finasteride 5 mg tablet 5 mg PO QHS 03/25/25 Hospital Course Operations TURP Physical Exam Const alert and oriented x3 General Appearance: cooperative HEENT normocephalic and head/scalp atraumatic Eyes PERRL and EOMs intact bilaterally Neck supple, no JVD and no carotid bruits Resp normal respiratory effort, normal air movement and clear to auscultation bilaterally Cardio regular rate and no murmurs GI normal to inspection, nondistended, normoactive bowel sounds and soft to palpation Extremity normal capillary refill General Extremity: no tenderness to palpation of joints or extremities; Negativefor edema Skin no rashes or lesions noted and no wounds General Skin Exam: no breakdown Neuro CN's II-XII intact bilaterally Psych affect normal Appearance: appropriate Weight / BMI Weight Weight: 85 kg Body Mass Index (BMI) 29.3 D/C Instructions Call your doctor if you observe: Fever of 101 or Higher DC O2, CPAP, BIPAP Needs Home O2 Discharge instructions: No Please Follow Up With: Andi Jara MD When: Call [phone] for an appointment Meaningful Use Info Meaningful Use Meaningful Use Diagnoses (Choose all that apply): None applicable Discharge Plan Admission Admit Date/Time: 04/07/25 13:41 Primary Reason for Your Visit: TURP AND BOTOX Attending Provider: Andi Jara Primary Care Provider: Oniel Francis Discharge Orders/Prescriptions Prescriptions: Continued acetaminophen 500 mg tablet 1,000 mg PO TID PRN (Reason: fever or pain) fluticasone propionate [Allergy Relief (fluticasone)] 50 mcg/actuation spray,suspension 1 spray INTRANASAL DAILY PRN (Reason: nasal congestion) carbidopa-levodopa 25-100 mg tablet 3 tab PO TID levothyroxine 25 mcg tablet 25 mcg PO DAILY dmjjttax-cpf-DJ-lycopen-lutein 1 EACH tablet 1 ea PO DAILY Patient Comments: supplement cyanocobalamin (vitamin B-12) 500 mcg tablet, sublingual 1,000 mcg PO DAILY Patient Comments: supplement cholecalciferol (vitamin D3) 25 mcg (1,000 unit) tablet 2,000 unit PO BID Patient Comments: supplement nitroglycerin 0.4 mg tablet, sublingual 0.4 mg sublingual Q5M PRN (Reason: CHEST PAIN) Rx Instructions: PLACE 1 TABLET UNDER THE TONGUE AND ALLOW TO DISSOLVE EVERY 5 TO 15 MINUTES FOR CHEST PAIN. DO NOT EXCEED 3 DOSES ezetimibe 10 mg tablet 10 mg PO DAILY finasteride 5 mg tablet 5 mg PO QHS atorvastatin 80 mg tablet 80 mg PO QHS propranolol 80 mg capsule,extended release 24 hr 80 mg PO Q24H tamsulosin 0.4 mg capsule 0.8 mg PO QHS Held aspirin 81 mg tablet,chewable 81 mg PO DAILY Hold Instructions: Resume on 04/21/25. Patient Comments: [facility] clopidogrel [Plavix] 75 mg tablet 75 mg PO DAILY Hold Instructions: Resume on 04/21/25. Patient Comments: Patient never started after TIA Referrals / Follow Up: Oniel Francis MD [Primary Care Provider] - Andi Jara MD [Med Staff - Active Staff] - Disposition Discharge Orders: Discharge Patient (Routine); Ordered 04/08/25 Ordered By: Dr. Andi Jara 04/08/25 0731 <Electronically signed by Andi Jara MD> Cosigner Signature (if applicable): CC: Dr. Oniel Francis MD; Dr. Andi Jara MD~ Signed [facility] Work Phone: 1(228) 174-846209-04-2025 Discharge summary [facility] Medical Records Department [address] [place] [address] Discharge Summary 04/08/25 0730 MR#: [id number] Acct: [id number] Name: SONIYA COOLEY Rep #:[id number] : 1940 84 From: Anid Jara MD PCP: Dr. Oniel Francis MD Status:ADM DARI Location: [place] [address] Providers Date of Admission: 04/07/25 Date of Discharge: 04/08/25 Primary Care Physician: Dr. Oniel Francis MD Reason For Visit: TURP Medications at Discharge Home Medications vtelsjpo-vap-wwfkv acid 0.4 mg-lycopene 300 mcg-lutein 250 mcg tablet 1 ea PO DAILY SUPP 05/28/16 acetaminophen 500 mg tablet 1,000 mg PO TID PRN fever or pain 05/29/19 cyanocobalamin (vitamin B-12) 500 mcg sublingual tablet 1,000 mcg PO DAILY SUPP 05/29/19 aspirin 81 mg chewable tablet 81 mg PO DAILY PER 12/22/19 Held on 04/07/25. Instructions: Resume on 04/21/25. carbidopa 25 mg-levodopa 100 mg tablet 3 tab PO TID [facility]INSONS 02/03/21 cholecalciferol (vitamin D3) 25 mcg (1,000 unit) tablet 2,000 unit PO BID SUPP 02/03/21 fluticasone propionate 50 mcg/actuation nasal spray,suspension (Allergy Relief (fluticasone)) 1 spray intranasal DAILY PRN nasal congestion 02/03/21 levothyroxine 25 mcg tablet 25 mcg PO DAILY THYROID 02/03/21 atorvastatin 80 mg tablet 80 mg PO QHS CHOLESTEROL 01/19/25 propranolol 80 mg capsule,24 hr,extended release 80 mg PO Q24H BP 01/19/25 tamsulosin 0.4 mg capsule 0.8 mg PO QHS PER 01/19/25 clopidogrel 75 mg tablet (Plavix) 75 mg PO DAILY BLOOD THINNER 03/24/25 Held on 04/07/25. Instructions: Resume on 04/21/25. nitroglycerin 0.4 mg sublingual tablet 0.4 mg sublingual Q5M PRN CHEST PAIN 03/24/25 ezetimibe 10 mg tablet 10 mg PO DAILY 03/25/25 finasteride 5 mg tablet 5 mg PO QHS 03/25/25 Hospital Course Operations TURP Physical Exam Const alert and oriented x3 General Appearance: cooperative HEENT normocephalic and head/scalp atraumatic Eyes PERRL and EOMs intact bilaterally Neck supple, no JVD and no carotid bruits Resp normal respiratory effort, normal air movement and clear to auscultation bilaterally Cardio regular rate and no murmurs GI normal to inspection, nondistended, normoactive bowel sounds and soft to palpation Extremity normal capillary refill General Extremity: no tenderness to palpation of joints or extremities; Negativefor edema Skin no rashes or lesions noted and no wounds General Skin Exam: no breakdown Neuro CN's II-XII intact bilaterally Psych affect normal Appearance: appropriate Weight / BMI Weight Weight: 85 kg Body Mass Index (BMI) 29.3 D/C Instructions Call your doctor if you observe: Fever of 101 or Higher DC O2, CPAP, BIPAP Needs Home O2 Discharge instructions: No Please Follow Up With: Andi Jara MD When: Call [phone] for an appointment Meaningful Use Info Meaningful Use Meaningful Use Diagnoses (Choose all that apply): None applicable Discharge Plan Admission Admit Date/Time: 04/07/25 13:41 Primary Reason for Your Visit: TURP AND BOTOX Attending Provider: Andi Jara Primary Care Provider: Oniel Francis Discharge Orders/Prescriptions Prescriptions: Continued acetaminophen 500 mg tablet 1,000 mg PO TID PRN (Reason: fever or pain) fluticasone propionate [Allergy Relief (fluticasone)] 50 mcg/actuation spray,suspension 1 spray INTRANASAL DAILY PRN (Reason: nasal congestion) carbidopa-levodopa 25-100 mg tablet 3 tab PO TID levothyroxine 25 mcg tablet 25 mcg PO DAILY oaufswcp-rfh-KD-lycopen-lutein 1 EACH tablet 1 ea PO DAILY Patient Comments: supplement cyanocobalamin (vitamin B-12) 500 mcg tablet, sublingual 1,000 mcg PO DAILY Patient Comments: supplement cholecalciferol (vitamin D3) 25 mcg (1,000 unit) tablet 2,000 unit PO BID Patient Comments: supplement nitroglycerin 0.4 mg tablet, sublingual 0.4 mg sublingual Q5M PRN (Reason: CHEST PAIN) Rx Instructions: PLACE 1 TABLET UNDER THE TONGUE AND ALLOW TO DISSOLVE EVERY 5 TO 15 MINUTES FOR CHEST PAIN. DO NOT EXCEED 3 DOSES ezetimibe 10 mg tablet 10 mg PO DAILY finasteride 5 mg tablet 5 mg PO QHS atorvastatin 80 mg tablet 80 mg PO QHS propranolol 80 mg capsule,extended release 24 hr 80 mg PO Q24H tamsulosin 0.4 mg capsule 0.8 mg PO QHS Held aspirin 81 mg tablet,chewable 81 mg PO DAILY Hold Instructions: Resume on 04/21/25. Patient Comments: [facility] clopidogrel [Plavix] 75 mg tablet 75 mg PO DAILY Hold Instructions: Resume on 04/21/25. Patient Comments: Patient never started after TIA Referrals / Follow Up: Oniel Francis MD [Primary Care Provider] - Andi Jara MD [Med Staff - Active Staff] - Disposition Discharge Orders: Discharge Patient (Routine); Ordered 04/08/25 Ordered By: Dr. Andi Jara 04/08/25 0731 Cosigner Signature (if applicable): CC: Dr. Oniel Francis MD; Dr. Andi Jara MD~ Signed [facility]09-04-2025 [facility] Medical Records Department [address] [place] [address] Discharge Summary 04/08/25729 MR#: [id number] Acct: [id number] Name: SONIYA COOLEY Rep #: [id number] : 1940 84 From: Andi Jara MD PCP: Dr. Oniel Francis MD Status:ADM DARI Location: [place] [address] Providers Date of Admission: 04/07/25 Date of Discharge: 04/08/25 Primary Care Physician: Dr. Oniel Francis MD Reason For Visit: TURP Medications at Discharge Home Medications qlhdlqmw-cfp-ietds acid 0.4 mg-lycopene 300 mcg-lutein 250 mcg tablet 1 ea PO DAILY SUPP 05/28/16 acetaminophen 500 mg tablet 1,000 mg PO TID PRN fever or pain 05/29/19 cyanocobalamin (vitamin B-12) 500 mcg sublingual tablet 1,000 mcg PO DAILY SUPP 05/29/19 aspirin 81 mg chewable tablet 81 mg PO DAILY PER 12/22/19 Held on 04/07/25. Instructions: Resume on 04/21/25. carbidopa 25 mg-levodopa 100 mg tablet 3 tab PO TID P[facility]INSONS 02/03/21 cholecalciferol (vitamin D3) 25 mcg (1,000 unit) tablet 2,000 unit PO BID SUPP 02/03/21 fluticasone propionate 50 mcg/actuation nasal spray,suspension (Allergy Relief (fluticasone)) 1 spray intranasal DAILY PRN nasal congestion 02/03/21 levothyroxine 25 mcg tablet 25 mcg PO DAILY THYROID 02/03/21 atorvastatin 80 mg tablet 80 mg PO QHS CHOLESTEROL 01/19/25 propranolol 80 mg capsule,24 hr,extended release 80 mg PO Q24H BP 01/19/25 tamsulosin 0.4 mg capsule 0.8 mg PO QHS PER 01/19/25 clopidogrel 75 mg tablet (Plavix) 75 mg PO DAILY BLOOD THINNER 03/24/25 Held on 04/07/25. Instructions: Resume on 04/21/25. nitroglycerin 0.4 mg sublingual tablet 0.4 mg sublingual Q5M PRN CHEST PAIN 03/24/25 ezetimibe 10 mg tablet 10 mg PO DAILY 03/25/25 finasteride 5 mg tablet 5 mg PO QHS 03/25/25 Hospital Course Operations TURP Physical Exam Const alert and oriented x3 General Appearance: cooperative HEENT normocephalic and head/scalp atraumatic Eyes PERRL and EOMs intact bilaterally Neck supple, no JVD and no carotid bruits Resp normal respiratory effort, normal air movement and clear to auscultation bilaterally Cardio regular rate and no murmurs GI normal to inspection, nondistended, normoactive bowel sounds and soft to palpation Extremity normal capillary refill General Extremity: no tenderness to palpation of joints or extremities; Negative for edema Skin no rashes or lesions noted and no wounds General Skin Exam: no breakdown Neuro CN's II-XII intact bilaterally Psych affect normal Appearance: appropriate Weight / BMI Weight Weight: 85 kg Body Mass Index (BMI) 29.3 D/C Instructions Call your doctor if you observe: Fever of 101 or Higher DC O2, CPAP, BIPAP Needs Home O2 Discharge instructions: No Please Follow Up With: Andi Jara MD When: Call [phone] for an appointment Meaningful Use Info Meaningful Use Meaningful Use Diagnoses (Choose all that apply): None applicable Discharge Plan Admission Admit Date/Time: 04/07/25 13:41 Primary Reason for Your Visit: TURP AND BOTOX Attending Provider: Andi Jara Primary Care Provider: Oniel Francis Discharge Orders/Prescriptions Prescriptions: Continued acetaminophen 500 mg tablet 1,000 mg PO TID PRN (Reason: fever or pain) fluticasone propionate [Allergy Relief (fluticasone)] 50 mcg/actuation spray,suspension 1 spray INTRANASAL DAILY PRN (Reason: nasal congestion) carbidopa-levodopa 25-100 mg tablet 3 tab PO TID levothyroxine 25 mcg tablet 25 mcg PO DAILY bapdcbig-inz-CF-lycopen-lutein 1 EACH tablet 1 ea PO DAILY Patient Comments: supplement cyanocobalamin (vitamin B-12) 500 mcg tablet, sublingual 1,000 mcg PO DAILY Patient Comments: supplement cholecalciferol (vitamin D3) 25 mcg (1,000 unit) tablet 2,000 unit PO BID Patient Comments: supplement nitroglycerin 0.4 mg tablet, sublingual 0.4 mg sublingual Q5M PRN (Reason: CHEST PAIN) Rx Instructions: PLACE 1 TABLET UNDER THE TONGUE AND ALLOW TO DISSOLVE EVERY 5 TO 15 MINUTES FOR CHEST PAIN. DO NOT EXCEED 3 DOSES ezetimibe 10 mg tablet 10 mg PO DAILY finasteride 5 mg tablet 5 mg PO QHS atorvastatin 80 mg tablet 80 mg PO QHS propranolol 80 mg capsule,extended release 24 hr 80 mg PO Q24H tamsulosin 0.4 mg capsule 0.8 mg PO QHS Held aspirin 81 mg tablet,chewable 81 mg PO DAILY Hold Instructions: Resume on 04/21/25. Patient Comments: [facility] clopidogrel [Plavix] 75 mg tablet 75 mg PO DAILY Hold Instructions: Resume on 04/21/25. Patient Comments: Patient never started after TIA Referrals / Follow Up: Oniel Francis MD [Primary Care Provider] - Andi Jara MD [Med Staff - Active Staff] - Disposition Discharge Orders: Discharge Patient (Routine); Ordered 04/08/25 Ordered By: Dr. Andi Jara 04/08/25 0731 Ameena Frank (more content not included)...[facility] 04-07-2025 Consult note Author Dario Pires [facility] Note Date/Time April 08, 2025 1:43pm [facility] Medical Records Department [address] [place] [address] Anesthesia Postop Eval II 04/07/25 1515 MR#: [id number] Acct: [id number] Name: SONIYA COOLEY Rep #:[id number] : 1940 84 From: Dario Pires MD PCP: Dr. Oniel Francis MD Status:ADM DARI Y Race: C Location: MS3 MS308 -[id number] Anesthesia Postop Eval I Sum Postop Eval Completion status Anesthesia document: Postop Eval 1 completed: Yes Anesthesia Postop Eval I Summary Anesthesia Postop Eval I Summary: Anesthesia Postop Eval I: Assessment Summary 3 Airway patent Yes 04/07/25 13:42 OCEANOGRAPHIC METEOROLOGIST.TNES Spontaneous unlabored Yes 04/07/25 13:42 OCEANOGRAPHIC METEOROLOGIST.TNES respirations Mental status nausea No 04/07/25 13:42 OCEANOGRAPHIC METEOROLOGIST.TNES Vomiting No 04/07/25 13:42 OCEANOGRAPHIC METEOROLOGIST.TNES Anesthesia Postop Eval I: Fluid Summary Crystalloid volume administer 1,000 04/07/25 13:42 OCEANOGRAPHIC METEOROLOGIST.TNES (ml) Colloids volume administered ( ml) Blood Product volume administered (ml) Total IV fluid infused 1,000 04/07/25 13:42 OCEANOGRAPHIC METEOROLOGIST.TNES Anesthesia Postop Eval I: Summary Notes Anesthesia Complication No 04/07/25 13:42 OCEANOGRAPHIC METEOROLOGIST.TNES Anesthesia Complication Comment: Post-operative progress note Anesthesia: Postop Eval II Evaluation Mental status: Awake Pain Level: 0 nausea: No Vomiting: No Complications Anesthesia Complication: No 04/07/25 1515 <Electronically signed by Dario Pires MD> Date _ Dario Pires MD Cosigner Signature: Date CC: ~ Signed [facility] Work Phone: [phone]) 340-639909-03-2025 Consult note Author Fred Hernandez [facility] Note Date/Time April 08, 2025 1:43pm [facility] Medical Records Department [address] [place] [address] [place] [address] Anesthesia Postop Eval I 04/07/25 1342 MR#: [id number] Acct: [id number] Name: LENORASONIYA Ella Rep #:[id number] : 1940 84 From: Fred TURNER PCP: Dr. Oniel Francis MD Status:REG SDC Y Race: C Location: [place] [address] Anesthesia: Postop Eval I Current Vital Signs Temperature: 97.8 F Pulse Rate: 55 Blood Pressure: 131/72 Respiratory Rate: 16 Pulse Ox: 92 Assessment Airway patent: Yes Spontaneous unlabored respirations: Yes nausea: No Vomiting: No Anesthesia Complication: No Fluid Hydration Crystalloid volume administer (ml): 1,000 Total IV fluid infused: 1,000 Progress Note Anesthesia document: Postop Eval 1 completed: Yes 04/07/25 1342 <Electronically signed by Fred Hernandez CRNA> Date _ Fred Hernandez OCEANOGRAPHIC METEOROLOGIST Cosigner Signature: Date CC: ~ Signed [facility] Work Phone: [phone] 743-360209-03-2025 Discharge summary Author Andi Jara [facility] Note Date/Time April 07, 2025 1:34pm [facility] Medical Records Department [address] [place] [address] Instructions for Home/Discharge Instructions 04/07/25 1333 MR#: [id number] Acct: [id number] Name: SONIYA COOLEY Rep #:[id number] : 1940 84 From: Andi Jara MD PCP: Dr. Oniel Francis MD Status:REG SDC Discharge Instructions DC O2, CPAP, BIPAP needs Home O2 Discharge instructions: No Dressing / Incision Discharge Activity: Return to Normal Activity and May Not Drive (while taking narcotic pain medications.) Dressing / Incision Call your doctor if you observe: Fever of 101 or Higher Follow Up Care Please Follow Up With: Andi Jara MD When: Call [phone] for an appointment Test Results: Test results from this visit will be discussed in further detail at your follow- up appointment, if applicable. Discharge Plan Admission Primary Reason for Your Visit: TURP AND BOTOX Attending Provider: Andi Jara Primary Care Provider: Oniel Francis Instructions Print Language: Ugandan Discharge Orders/Prescriptions Prescriptions: Continued acetaminophen 500 mg tablet 1,000 mg PO TID PRN (Reason: fever or pain) fluticasone propionate [Allergy Relief (fluticasone)] 50 mcg/actuation spray,suspension 1 spray INTRANASAL DAILY PRN (Reason: nasal congestion) carbidopa-levodopa 25-100 mg tablet 2 tab PO TID levothyroxine 25 mcg tablet 25 mcg PO DAILY mntfehbk-qtn-GA-lycopen-lutein 1 EACH tablet 1 ea PO DAILY Patient Comments: supplement cyanocobalamin (vitamin B-12) 500 mcg tablet, sublingual 1,000 mcg PO DAILY Patient Comments: supplement cholecalciferol (vitamin D3) 25 mcg (1,000 unit) tablet 2,000 unit PO BID Patient Comments: supplement nitroglycerin 0.4 mg tablet, sublingual 0.4 mg sublingual Q5M PRN (Reason: CHEST PAIN) Rx Instructions: PLACE 1 TABLET UNDER THE TONGUE AND ALLOW TO DISSOLVE EVERY 5 TO 15 MINUTES FOR CHEST PAIN. DO NOT EXCEED 3 DOSES ezetimibe 10 mg tablet 10 mg PO DAILY finasteride 5 mg tablet 5 mg PO QHS atorvastatin 80 mg tablet 80 mg PO QHS propranolol 80 mg capsule,extended release 24 hr 80 mg PO Q24H tamsulosin 0.4 mg capsule 0.8 mg PO QHS Held aspirin 81 mg tablet,chewable 81 mg PO DAILY Hold Instructions: Resume on 04/21/25. Patient Comments: heart [facility] clopidogrel [Plavix] 75 mg tablet 75 mg PO DAILY Hold Instructions: Resume on 04/21/25. Patient Comments: Patient never started after TIA Referrals / Follow Up: Oniel Francis MD [Primary Care Provider] - Andi Jaar MD [Med Staff - Active Staff] - Disposition Disposition (needs filled in before D/C Order can be placed): Home, Self Care 04/07/25 1334<Electronically signed by Andi Jara MD>Andi Jara MD CC: Dr. Oniel Francis MD ~ Signed [facility] Work Phone: [phone] Procedure note [facility] Medical Records Department [address] [place] [address] Operative Report 04/07/25 1334 MR#: [id number] Acct: [id number] Name: SONIYA COOLEY Rep #:[id number] : 1940 84 From: Andi Jara MD PCP: Dr. 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 Post-Operative Diagnosis: Same Surgery/Procedure Performed: Cystoscopy injection of Botox in the bladder and transurethral sectionof prostate travel assistant: No Type of Anesthesia: General RN Documented Start/Stop Times: Operation Date: 04/07/25 12:00 Case Time Into Pre-Op 04/07/25 09:57 Anesthesia Start 04/07/25 12:40 Into Room 04/07/25 12:40 Out of Pre-Op 04/07/25 12:40 Procedure Start 04/07/25 13:00 Procedure End 04/07/25 13:28 Into Recovery Procedure Start Time: 13:00 Procedure Stop Time: 13:28 Select all DRAINS/GRAFTS/IMPLANTS that apply: Drains Drain details: 22 Kazakh three-way Estimated Blood Loss: 10 cc Specimen collected: Yes Description of specimen(s) removed: prostate tissue Description of surgery: Indication this is an 84-year-old male who has Parkinson's multiple medical problems who has frequency and urgency and bladder control problems on cystoscopy was found to have a significantly obstructive prostate causing blockage but he also has underlying Parkinson's and overactive bladder so today organ to try to treat both conditions again given Botox injection of the modulel340 units discomfort on the bladder and will resect also the prostate open to help with bladder emptying hopefully this will improve his bladder symptoms and improve his bladder emptying and cut down his frequency the patient understands no guarantees of surgery or the procedure will help him and his and his problemswith bladder control and frequency and urgency also that the risk of Inc. urinary incontinence and leakage and problems getting worse. This is explained to the patient the preoperative area he did express understanding and organ to proceed today Patient was taken back to the operating OptiSmooth duction of general anesthesiahe was placed in dorsolithotomy position went in the bladder with a 21 Kazakh rigid cystourethroscope, 100 units of Botox prepared in the back table we then with the cystoscope he had a short but very obstructive prostate lateral lobes mostly a lot of tissue obstructing from the left lateral lobe of the prostate I then used a Botox needle and injected 10 sites about 1 cc per site for a total of 100 units to the backof the bladder the goal of this was to decrease bladdercontractility so that his frequency and urgency will calm down. I then switchedover to the resectoscope and using a median loop and used a 24 Kazakh 9 continuous-flow resectoscope identified the prostate identified obstructing tissue left and right uteruses were identified and then proceeded with the resection resected the prostate completelyresect the prostate laterally and then resected back to the verumontanum but I made sure I did not over resect andnature of plenty of tissue around the sphincter area so the patient would hopefully not have any bladder control problems look like a good resection wide open tissue but enough tissue in the sphincter area that hopefully have good control of his bladder. Cauterized extensively to get hemostasis but a catheter in and then for the catheter and continuous bladder irrigation patient wastaken back to the PACU in stable condition. Surgical Findings: Very obstructive prostate resected open Complications Complications: No Admit VTE Documentation VTE Present on Admission: No VTE Mechan Device Prophylaxis: SCD's VTE Pharm Prophylaxis ordered?: No 04/07/25 1339 Cosigner Signature (if applicable): CC: Dr. Oniel Francis MD; Dr. Andi Jara MD~ Signed [facility]09-03-2025 Discharge summary [facility] Medical Records Department [address] [place] [address] Instructions for Home/Discharge Instructions 04/07/25 1333 MR#: [id number] Acct: [id number] Name: SONIYA COOLEY Rep #:[id number] : 1940 84 From: Andi Jara MD PCP: Dr. Oniel Francis MD Status:REG SDC Discharge Instructions DC O2, CPAP, BIPAP needs Home O2 Discharge instructions: No Dressing / Incision Discharge Activity: Return to Normal Activity and May Not Drive (while taking narcotic pain medications.) Dressing / Incision Call your doctor if you observe: Fever of 101 or Higher Follow Up Care Please Follow Up With: Andi Jara MD When: Call [phone] for an appointment Test Results: Test results from this visit will be discussed in further detail at your follow- up appointment, if applicable. Discharge Plan Admission Primary Reason for Your Visit: TURP AND BOTOX Attending Provider: Andi Jara Primary Care Provider: Oniel Francis Instructions Print Language: Ugandan Discharge Orders/Prescriptions Prescriptions: Continued acetaminophen 500 mg tablet 1,000 mg PO TID PRN (Reason: fever or pain) fluticasone propionate [Allergy Relief (fluticasone)] 50 mcg/actuation spray,suspension 1 spray INTRANASAL DAILY PRN (Reason: nasal congestion) carbidopa-levodopa 25-100 mg tablet 2 tab PO TID levothyroxine 25 mcg tablet 25 mcg PO DAILY phoulpej-pat-TU-lycopen-lutein 1 EACH tablet 1 ea PO DAILY Patient Comments: supplement cyanocobalamin (vitamin B-12) 500 mcg tablet, sublingual 1,000 mcg PO DAILY Patient Comments: supplement cholecalciferol (vitamin D3) 25 mcg (1,000 unit) tablet 2,000 unit PO BID Patient Comments: supplement nitroglycerin 0.4 mg tablet, sublingual 0.4 mg sublingual Q5M PRN (Reason: CHEST PAIN) Rx Instructions: PLACE 1 TABLET UNDER THE TONGUE AND ALLOW TO DISSOLVE EVERY 5 TO 15 MINUTES FOR CHEST PAIN. DO NOT EXCEED 3 DOSES ezetimibe 10 mg tablet 10 mg PO DAILY finasteride 5 mg tablet 5 mg PO QHS atorvastatin 80 mg tablet 80 mg PO QHS propranolol 80 mg capsule,extended release 24 hr 80 mg PO Q24H tamsulosin 0.4 mg capsule 0.8 mg PO QHS Held aspirin 81 mg tablet,chewable 81 mg PO DAILY Hold Instructions: Resume on 04/21/25. Patient Comments: heart health clopidogrel [Plavix] 75 mg tablet 75 mg PO DAILY Hold Instructions: Resume on 04/21/25. Patient Comments: Patient never started after TIA Referrals / Follow Up: Oniel Francis MD [Primary Care Provider] - Andi Jara MD [Med Staff - Active Staff] - Disposition Disposition (needs filled in before D/C Order can be placed): Home, Self Care 04/07/25 1334Andi Jara MD CC: Dr. Oniel Francis MD ~ Signed [facility]09-03-2025 Consult note Author Dario Pires [facility] Note Date/Time April 07, 2025 11:18am [facility] Medical Records Department [address] [place] [address] Pre-Anesthesia Evaluation 04/07/25 1112 MR#: [id number] Acct: [id number] Name: SONIYA COOLEY Rep #:[id number] : 1940 84 From: Dario Pires MD PCP: Dr. Oniel Francis MD Status:REG SDC Y Race: C Location: [place] [address] ASA Classification* ASA Classification ASA Classification: 3 (CABG x 4, CAD, Parkinsons , hypothyroid ) Assessment & Plan Anesthesia* Anesthesia Assessment Anesthesia Assessment: Discussed sedation and/or anesthesia options, risks, benefits, and alternatives with patient/parents/legal guardian/POA. Questions invited. The patient/parents/legal guardian/POA seems to understand and agrees to proceedwith anesthesia plan. Reviewed the physical assessment, medical history, allergy history and patient home medications list prior to surgery/procedure/anesthetic and documented any changes. Performed airway and anesthesia risk assessments. I discussed with the patient the increased risk of complications, including but not limited to [place], CVA, and due to his recent TIA and cardiac history. Thepatient verbalized understanding and agreed to proceed with the procedure today Anesthesia Type Anesthesia Type: General (LMA. Keep BP well controlled near baseline due to CAD ) History Source History Obtained from:: Patient and Chart Anesthesia Focused Assessment* Temperature: 97.0 F Pulse Rate: 63 Blood Pressure: 128/78 Respiratory Rate: 18 Pulse Ox: 95 Oxygen Delivery Method: Room Air Airway Assessment Mouth opens: >3 cm Mallampati Score: III Neck Range of motion (ROM): Full ROM Labs Anesthesia Preop lab: CBC WBC 6.3 K/mm3 (4.4-11.0) 01/19/25 04:00 01/19/25 RBC 4.31 M/mm3 (4.6-6.2) L 01/19/25 04:00 01/19/25 Hgb 14.2 g/dL (13.0-16.5) 01/19/25 04:00 01/19/25 Hct 40.8 % (40-54) 01/19/25 04:00 01/19/25 Plt Count 135 K/mm3 (150-450) L 01/19/25 04:00 01/19/25 CHEMISTRY Potassium 4.1 mmol/L (3.3-5.1) 01/19/25 04:00 01/19/25 Sodium 140 mmol/L (133-145) 01/19/25 04:00 01/19/25 BUN 25 mg/dL (4-19) H 01/19/25 04:00 01/19/25 Creatinine 0.91 mg/dL (0.70-1.20) 01/19/25 04:00 01/19/25 Glucose 145 mg/dL (70-99) H 01/19/25 04:00 01/19/25 POC Glucose 136 mg/dL (74-106) H 01/19/25 03:56 01/19/25 TSH 4.20 uIU/mL (0.358-3.74) H 01/08/20 10:06 06/0 12/22 COAG PT 13.4 SECONDS (11.7-14.9) 01/19/25 04:00 Pre-Assessment Diagnosis/Proposed Procedure Planned Operative Procedure(s): TRANSURETEHRAL RESECTION OF PROSTATE, BOTOX IN BLADDER Anesthesia History 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 When Was Last Pacemaker Check QUESTION #4 FULL TEXT: You/Your Family Experience fever (hyperthermia) with Anesthesia Last Oral Intake Last Oral intake: Last Oral Intake NPO since 23:00 09/03/25 10:17 Meds taken in AM with sips of Yes 04/07/25 10:17 water? 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 Female No 03/24/25 09:11 HX of Motion Sickness No 03/24/25 09:11 HX of N/V After Surgery No 03/24/25 09:11 Non-Smoker Yes 03/24/25 09:11 Duration of Surgery greater Yes 03/24/25 09:11 than 60 minutes Number of Risk Factors 2 03/24/25 09:11 PONV Score Moderate Risk 03/24/25 09:11 Height & Weight Height & Weight: Anesthesia: Height & Weight Height 5 ft 7 in 04/07/25 10:17 Weight: 85 kg 04/07/25 10:17 Body Mass Index (BMI) 29.3 04/07/25 10:17 Respiratory Assessment Respiratory Assessment - metalworker: Respiratory Tract Infection Hx - metalworker Hx Respiratory Tract Infection No 03/24/25 09:11 STOP Sleep Apnea STOP Sleep Apnea - metalworker: STOP Sleep Apnea - metalworker Hx Hypertension Yes 03/24/25 09:11 Hx Sleep Apnea No 03/24/25 09:11 CPAP BIPAP Do you snore loudly (louder Yes 03/24/25 09:11 than talking or can be heard Do you often feel tired/ No 03/24/25 09:11 fatigued/ sleepy during daytime? Has anyone observed you stop No 03/24/25 09:11 breathing during sleep? STOP Results Positive 03/24/25 09:11 QUESTION #5 FULL TEXT : Do you snore loudly (louder than talking or can be heard through closed doors)? 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 Specify any problems Hx of Preganancy in last 3 N/A 03/24/25 09:11 Months Nurse Filling Out Transfusion [id number] 03/24/25 09:11 & Questions: Date: 03/24/25 03/24/25 09:11 Time: 09:17 03/24/25 09:11 Patient unable to answer at this time (ie. confused, unrespo /Reproduction History /Reproductive History - metalworker: /Reproductive Hx- metalworker Hx Now Gestational Age (in weeks): EDC: Hx Hx Para Hx Section SAB Active Medications Active Medications: Current Medications Generic Name Dose Route Start Last Admin Trade Name Freq PRN Reason Stop Dose Admin Botulinum Toxin Type A 100 units 04/07/25 12:00 Botulinum Toxin A 100 Units Vial IJ 04/07/25 12:01 X1 ONE Cefazolin Sodium 2 gm/ Sodium 110 mls @ 200 mls/hr 04/07/25 12:00 Chloride IV 04/07/25 12:32 INTRAOP ONE Lactated Ringer's 1,000 mls @ 15 mls/hr 04/07/25 10:45 04/07/25 10:35 IV 15 mls/hr .Q48H PEPITO Administration PFSH Medical History (Updated 03/24/25 @ 09:25 by James Landis) Thyroid disease History of steroid therapy Back pain TIA (transient ischemic attack) History of edema History of Holter monitoring History of echocardiogram History of stress test Cardiology follow-up encounter Parkinson's disease Stroke-like symptoms Parkinson disease Family history of malignant neoplasm of colon in mother Personal history of colonic polyps Essential tremor Aortic prosthetic valve regurgitation Deep vein thrombophlebitis of right leg Obesity Left carotid artery stenosis Prosthetic aortic valve stenosis Central sleep apnea Nonrheumatic aortic (valve) insufficiency Bicuspid aortic valve Vitamin D deficiency History of rheumatic fever Hyperlipidemia History of carotid artery disease Atherosclerosis of coronary artery of [place] heart without angina pectoris Essential hypertension Contusion of finger without damage to nail Laceration of finger of left hand without foreign body without damage to nail Hemorrhoids Shortness of breath Neck pain on left side Tingling and numbness left fingers Home Medications ?Medication ?Instructions ?Recorded ?Last Taken ?Type hmklecjr-vfo-roqla acid 0.4 1 ea PO DAILY SUPP 6 03/17/25 History mg-lycopene 300 mcg-lutein 250 mcg tablet acetaminophen 500 mg tablet 1,000 mg PO TID PRN fever or pain 05/29/19 Unknown History cyanocobalamin (vitamin B-12) 500 1,000 mcg PO DAILY S UPP 05/29/19 03/17/25 History mcg sublingual tablet aspirin 81 mg chewable tablet 81 mg PO DAILY PER 03/17/25 History carbidopa 25 mg-levodopa 100 mg 2 tab PO TID PARKINSON S 02/03/21 04/07/25 History tablet cholecalciferol (vitamin D3) 25 2,000 unit PO BID SUPP 02/03/21 03/17/25 History mcg (1,000 unit) tablet fluticasone propionate 50 1 spray intranasal DAILY PRN nasal 02/03/21 Unknown History mcg/actuation nasal congestion spray,suspension (Allergy Relief (fluticasone)) levothyroxine 25 mcg tablet 25 mcg PO DAILY THYROID 04/07/25 History atorvastatin 80 mg tablet 80 mg PO QHS CHOLESTEROL 04/06/25 History propranolol 80 mg capsule,24 80 mg PO Q24H BP 01/19/25 04/07/25 History hr,extended release tamsulosin 0.4 mg capsule 0.8 mg PO QHS PER 5 04/06/25 History clopidogrel 75 mg tablet (Plavix) 75 mg PO DAILY BLOOD THINNER 03/24/25 Unknown History Held on 03/25/25. Instructions: MD Ordered nitroglycerin 0.4 mg sublingual 0.4 mg sublingual Q5M PRN CHEST 03/24/25 Unknown History tablet PAIN ezetimibe 10 mg tablet 10 mg PO DAILY 03/25/250 09/29 History finasteride 5 mg tablet 5 mg PO QHS 03/25/25 5 History Allergy/AdvReac Type Severity Reaction Status Date / Time iodine Allergy Other Verified 04/07/25 10:14 Penicillins Allergy Hives Verified 04/07/25 10:14 Family History Mother Heart disease Colon cancer Father Diabetes Sister Heart disease Brother Heart disease Surgical History (Updated 03/24/25 @ 09:25 by James Landis) History of total left knee replacement History of single vessel coronary artery bypass History of cataract extraction History of colonoscopy (~2014) History of left heart catheterization (08/26/18) H/O coronary artery bypass surgery (10/2018) H/O aortic valve replacement (10/2018) History of left-sided carotid endarterectomy (2008) History of hernia repair History of cholecystectomy History of tonsillectomy Social History Smoking Status: Never smoker alcohol intake: current alcohol intake frequency: a few times a month Alcohol type: beer and wine substance use type: does not use caffeine: No Review of Systems (Anesthesia) ROS Narrative System reviewed and no additional complaints, except as documented. 04/07/25 1118 <Electronically signed by Dario Pires MD> Date _ Dario Pires MD Cosigner Signature: Date CC: ~ Signed [facility] Work Phone: 1(126) 354-601909-03-2025 Consult note [facility] Medical Records Department [address] [place] [address] Pre-Anesthesia Evaluation 04/07/25 1112 MR#: [id number] Acct: [id number] Name: SONIYA COOLEY Rep #:[id number] : 1940 84 From: Dario Pires MD PCP: Dr. Oniel Francis MD Status:REG SDC Y Race: C Location: [place] [address] ASA Classification* ASA Classification ASA Classification: 3 (CABG x 4, CAD, Parkinsons , hypothyroid ) Assessment & Plan Anesthesia* Anesthesia Assessment Anesthesia Assessment: Discussed sedation and/or anesthesia options, risks, benefits, and alternatives with patient/parents/legal guardian/POA. Questions invited. The patient/parents/legal guardian/POA seems to understand and agrees to proceedwith anesthesia plan. Reviewed the physical assessment, medical history, allergy history and patient home medications list prior to surgery/procedure/anesthetic and documented any changes. Performed airway and anesthesia risk assessments. I discussed with the patient the increased risk of complications, including but not limited to [place], CVA, and due to his recent TIA and cardiac history. Thepatient verbalized understanding and agreed to proceed with the procedure today Anesthesia Type Anesthesia Type: General (LMA. Keep BP well controlled near baseline due to CAD ) History Source History Obtained from:: Patient and Chart Anesthesia Focused Assessment* Temperature: 97.0 F Pulse Rate: 63 Blood Pressure: 128/78 Respiratory Rate: 18 Pulse Ox: 95 Oxygen Delivery Method: Room Air Airway Assessment Mouth opens: >3 cm Mallampati Score: III Neck Range of motion (ROM): Full ROM Labs Anesthesia Preop lab: CBC WBC 6.3 K/mm3 (4.4-11.0) 01/19/25 04:00 01/19/25 RBC 4.31 M/mm3 (4.6-6.2) L 01/19/25 04:00 01/19/25 Hgb 14.2 g/dL (13.0-16.5) 01/19/25 04:00 01/19/25 Hct 40.8 % (40-54) 01/19/25 04:00 01/19/25 Plt Count 135 K/mm3 (150-450) L 01/19/25 04:00 01/19/25 CHEMISTRY Potassium 4.1 mmol/L (3.3-5.1) 01/19/25 04:00 01/19/25 Sodium 140 mmol/L (133-145) 01/19/25 04:00 01/19/25 BUN 25 mg/dL (4-19) H 01/19/25 04:00 01/19/25 Creatinine 0.91 mg/dL (0.70-1.20) 01/19/25 04:00 01/19/25 Glucose 145 mg/dL (70-99) H 01/19/25 04:00 01/19/25 POC Glucose 136 mg/dL (74-106) H 01/19/25 03:56 01/19/25 TSH 4.20 uIU/mL (0.358-3.74) H 01/08/20 10:06 06/0 12/22 COAG PT 13.4 SECONDS (11.7-14.9) 01/19/25 04:00 Pre-Assessment Diagnosis/Proposed Procedure Planned Operative Procedure(s): TRANSURETEHRAL RESECTION OF PROSTATE, BOTOX IN BLADDER Anesthesia History 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 When Was Last Pacemaker Check QUESTION #4 FULL TEXT: You/Your Family Experience fever (hyperthermia) with Anesthesia Last Oral Intake Last Oral intake: Last Oral Intake NPO since 23:00 04/07/25 10:17 Meds taken in AM with sips of Yes 04/07/25 10:17 water? 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 Female No 03/24/25 09:11 HX of Motion Sickness No 03/24/25 09:11 HX of N/V After Surgery No 03/24/25 09:11 Non-Smoker Yes 03/24/25 09:11 Duration of Surgery greater Yes 03/24/25 09:11 than 60 minutes Number of Risk Factors 2 03/24/25 09:11 PONV Score Moderate Risk 03/24/25 09:11 Height & Weight Height & Weight: Anesthesia: Height & Weight Height 5 ft 7 in 04/07/25 10:17 Weight: 85 kg 04/07/25 10:17 Body Mass Index (BMI) 29.3 04/07/25 10:17 Respiratory Assessment Respiratory Assessment - metalworker: Respiratory Tract Infection Hx - metalworker Hx Respiratory Tract Infection No 03/24/25 09:11 STOP Sleep Apnea STOP Sleep Apnea - metalworker: STOP Sleep Apnea - metalworker Hx Hypertension Yes 03/24/25 09:11 Hx Sleep Apnea No 03/24/25 09:11 CPAP BIPAP Do you snore loudly (louder Yes 03/24/25 09:11 than talking or can be heard Do you often feel tired/ No 03/24/25 09:11 fatigued/ sleepy during daytime? Has anyone observed you stop No 03/24/25 09:11 breathing during sleep? STOP Results Positive 03/24/25 09:11 QUESTION #5 FULL TEXT : Do you snore loudly (louder than talking or can be heard through closeddoors)? 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 Specify any problems Hx of Preganancy in last 3 N/A 03/24/25 09:11 Months Nurse Filling Out Transfusion [id number] 03/24/25 09:11 & Questions: Date: 03/24/25 03/24/25 09:11 Time: 03/24/25 09:11 Patient unable to answer at this time (ie. confused, unrespo /Reproduction History /Reproductive History - metalworker: /Reproductive Hx- metalworker Hx Now Gestational Age (in weeks): EDC: Hx Hx Para Hx Section SAB Active Medications Active Medications: Current Medications Generic Name Dose Route Start Last Admin Trade Name Freq PRN Reason Stop Dose Admin Botulinum Toxin Type A 100 units 04/07/25 12:00 Botulinum Toxin A 100 Units Vial IJ 04/07/25 12:01 X1 ONE Cefazolin Sodium 2 gm/ Sodium 110 mls @ 200 mls/hr 04/07/25 12:00 Chloride IV 04/07/25 12:32 INTRAOP ONE Lactated Ringer's 1,000 mls @ 15 mls/hr 04/07/25 10:45 04/07/25 10:35 IV 15 mls/hr .Q48H PEPITO Administration PFSH Medical History (Updated 03/24/25 @ 09:25 by James Landis) Thyroid disease History of steroid therapy Back pain TIA (transient ischemic attack) History of edema History of Holter monitoring History of echocardiogram History of stress test Cardiology follow-up encounter Parkinson's disease Stroke-like symptoms Parkinson disease Family history of malignant neoplasm of colon in mother Personal history of colonic polyps Essential tremor Aortic prosthetic valve regurgitation Deep vein thrombophlebitis of right leg Obesity Left carotid artery stenosis Prosthetic aortic valve stenosis Central sleep apnea Nonrheumatic aortic (valve) insufficiency Bicuspid aortic valve Vitamin D deficiency History of rheumatic fever Hyperlipidemia History of carotid artery disease Atherosclerosis of coronary artery of [place] heart without angina pectoris Essential hypertension Contusion of finger without damage to nail Laceration of finger of left hand without foreign body without damage to nail Hemorrhoids Shortness of breath Neck pain on left side Tingling and numbness left fingers Home Medications ?Medication ?Instructions ?Recorded ?Last Taken ?Type [id number] acid 0.4 1 ea PO DAILY SUPP 6 03/17/25 History mg-lycopene 300 mcg-lutein 250 mcg tablet acetaminophen 500 mg tablet 1,000 mg PO TID PRN fever or pain 05/29/19 Unknown History cyanocobalamin (vitamin B-12) 500 1,000 mcg PO DAILY S UPP 05/29/19 03/17/25 History mcg sublingual tablet aspirin 81 mg chewable tablet 81 mg PO DAILY PER DR 03/17/25 History carbidopa 25 mg-levodopa 100 mg 2 tab PO TID PARKINSON S 02/03/21 04/07/25 History tablet cholecalciferol (vitamin D3) 25 2,000 unit PO BID SUPP 02/03/21 03/17/25 History mcg (1,000 unit) tablet fluticasone propionate 50 1 spray intranasal DAILY PRN nasal 02/03/21 Unknown History mcg/actuation nasal congestion spray,suspension (Allergy Relief (fluticasone)) levothyroxine 25 mcg tablet 25 mcg PO DAILY THYROID 04/07/25 History atorvastatin 80 mg tablet 80 mg PO QHS CHOLESTEROL 04/06/25 History propranolol 80 mg capsule,24 80 mg PO Q24H BP 01/19/25 04/07/25 History hr,extended release tamsulosin 0.4 mg capsule 0.[address] mg PO QHS PER DR 5 04/06/25 History clopidogrel 75 mg tablet (Plavix) 75 mg PO DAILY BLOOD THINNER 03/24/25 Unknown History Held on 03/25/25. Instructions: MD Ordered nitroglycerin 0.4 mg sublingual 0.4 mg sublingual Q5M PRN CHEST 03/24/25 Unknown History tablet PAIN ezetimibe 10 mg tablet 10 mg PO DAILY 03/25/2509/29 History finasteride 5 mg tablet 5 mg PO QHS 03/25/25 5 History Allergy/AdvReac Type Severity Reaction Status Date / Time iodine Allergy Other Verified 04/07/25 10:14 Penicillins Allergy Hives Verified 04/07/25 10:14 Family History Mother Heart disease Colon cancer Father Diabetes Sister Heart disease Brother Heart disease Surgical History (Updated 03/24/25 @ 09:25 by James Landis) History of total left knee replacement History of single vessel coronary artery bypass History of cataract extraction History of colonoscopy (~2014) History of left heart catheterization (08/26/18) H/O coronary artery bypass surgery (10/2018) H/O aortic valve replacement (10/2018) History of left-sided carotid endarterectomy (2008) History of hernia repair History of cholecystectomy History of tonsillectomy Social History Smoking Status: Never smoker alcohol intake: current alcohol intake frequency: a few times a month Alcohol type: beer and wine substance use type: does not use caffeine: No Review of Systems (Anesthesia) ROS Narrative System reviewed and no additional complaints, except as documented. 04/07/25 1118 MD> Date _ Dario Pires MD Cosigner Signature: Date CC: ~ Signed [facility]08-20-2025 NoteHNO ID: [id number] Author: MAYRA GERMAN MA Service: ? Author Type: Driver'S License Reviewing Officer Type: Progress Notes Filed: 03/24/2025 14:13 Note Text: Scan on 03/24/2025 9:04 AM by Provider, External, LAUREN: Procedure visit report, [facility]08-20-2025 History of Present illness Narrative* Mayra German MA - 03/24/2025 2:12 PM EDT Scan on 03/24/2025 9:04 AM by Provider, LAUREN Jones: Procedure visit report, Cysto [facility] Telephone encounter Note * Telephone Encounter - Michelle Herring RN - 03/24/2025 9:55 AM EDT James from [facility] calls and is requesting lab results, last cardiology office visit note, and EKG results to be faxed to [phone]. Information faxed as requested. Michelle Herring RN [facility]08-20-2025 Miscellaneous Notes* Telephone Encounter - Michelle Herring RN - 03/24/2025 9:55 AM EDT James from [facility] calls and is requesting lab results, last cardiology office visit note, and EKG results to be faxed to [phone]. Information faxed as requested. Michelle Herring RN documented in this encounterDay[facility]07-[facility]-2025 Telephone encounter Note * Telephone Encounter - Stacy Varghese RN - 02/26/2025 2:59 PM EDT Patient had urgent care visit this morning with Leti GILLand is calling to ask when the Paxlovid prescription is going to be sent to [facility]. He reports extremely runny nose and feels warm to touch but thermometer isn't working and is reading 94.3. Noted orders for Covid Testing. Don't seen any results back. Patient reports he was told he would have them back by now. Let him know I would pass the message along. Stacy Varghese RN [facility]07-25-2025 Miscellaneous Notes* Telephone Encounter - Stacy Varghese RN - 02/26/2025 2:59 PM EDT Patient had urgent care visit this morning with Leti GILLand is calling to ask when the Paxlovid prescription is going to be sent to [facility]. He reports extremely runny nose and feels warm to touch but thermometer isn't working and is reading 94.3. Noted orders for Covid Testing. Don't seen any results back. Patient reports he was told he would have them back by now. Let him know I would pass the message along. Stacy Varghese RN documented in this encounterDay[facility]07-25-2025 Note* Addendum Note - Ella Valdovinos PA-C - 02/26/2025 10:30 AM EDTAddended by: ELLA SANCHEZ on: 02/26/2025 10:30 AM Modules accepted: Orders [facility]07-25-2025 Miscellaneous Notes* Addendum Note - Ella Valdovinos PA-C - 02/26/2025 10:30 AM EDTAddended by: ELLA SANCHEZ on: 02/26/2025 10:30 AM Modules accepted: Orders * Telephone Encounter - Ella Valdovinos PA-C - 02/26/2025 10:29 AM EDT Patient requested flomax refill The following approved medication requests have been transmitted electronically. Requested Prescriptions Signed Prescriptions Disp Refills tamsulosin (FLOMAX) 0.4 mg 180 capsule 1 Sig: Take 2 capsules by mouth daily at bedtime. Authorizing Provider: ELLA VALDOVINOS PA-C * Telephone Encounter - Keren Sykes LPN - 02/26/2025 8:34 AM EDT Pt stops by office requesting refill. Prescription Refill Information The patient has been identified by name and date of : Yes Caregiver verified no other encounters exist for this prescription request: Yes Caregiver confirmed with patient/requestor that no other refills are due, in the near future, with this provider at this time: Yes The last office visit in the department: 02/08/25 Does the patient have a future office visit with this provider/department: Yes Requested Prescriptions Pending Prescriptions Disp Refills fluticasone (FLONASE) 50 mcg/actuation nasal spray 1 each 5 Sig: Use 1 spray in each nostril once daily. Rinse mouth after use. Keren Sykes LPN February 26, 2025 8:38 AM documented in this encounterDay[facility]07-25-2025 Telephone encounter Note * Telephone Encounter - Ella Valdovinos PA-C - 02/26/2025 10:29 AM EDT Patient requested flomax refill The following approved medication requests have been transmitted electronically. Requested Prescriptions Signed Prescriptions Disp Refills tamsulosin (FLOMAX) 0.4 mg 180 capsule 1 Sig: Take 2 capsules by mouth daily at bedtime. Authorizing Provider: ELLA VALDOVINOS PA-C [facility]07-25-2025 [id number] (AGENT OF COVID-19) RNA: Detected INFLUENZA A RNA: Not detected INFLUENZA B RNA: Not detected RESPIRATORY SYNCYTIAL VIRUS (RSV) RNA: Not detectedTrumbull Memorial HospitalComment on above:Performed By: #### [id number] #### [facility] CLIA [id number] [address] [place], [place] [id number] Telephone encounter Note* Telephone Encounter - Keren Sykes LPN - 02/26/2025 8:34 AM EDT Pt stops by office requesting refill. Prescription Refill Information The patient has been identified by name and date of : Yes Caregiver verified no other encounters exist for this prescription request: Yes Caregiver confirmed with patient/requestor that no other refills are due, in the near future, with this provider at this time: Yes The last office visit in the department: 02/08/25 Does the patient have a future office visit with this provider/department: Yes Requested Prescriptions Pending Prescriptions Disp Refills fluticasone (FLONASE) 50 mcg/actuation nasal spray 1 each 5 Sig: Use 1 spray in each nostril once daily. Rinse mouth after use. Keren Sykes LPN February 26, 2025 8:38 AM [facility]07-25-2025 NoteHNO ID: [id number] Author: LETI RODRIGUEZ PA-C Service: ? Author Type: Physician Product Trainer Type: Progress Notes Filed: 02/26/2025 08:37 Note Text: [facility] Cooley is a 84 year old male. Patient presents with: Rhinitis: Covid test Patient is an 84-year-old male who arrives for testing for COVID-19. Patient reports that he attended the of his sister several days ago with a large number of people that were in attendance. Patient states he developed mild congestion over the past 1 to 2 days. Patient denies fever, chills, myalgia, sinus pressure, sore throat, cough or other illness symptoms. Patient states he otherwise is feeling in good health. Patient has received a COVID-19 vaccine. Review of Systems HENT: Positive for congestion. All other systems reviewed and are negative. Objective BP 98/70 Pulse 61 Temp 36.5 ?C (97.7 ?F) Resp 20 Wt 89.6 kg (197 lb 8.5 oz) SpO2 95% BMI 32.37 kg/m? Physical Exam Vitals and nursing note reviewed. Constitutional: Appearance: Normal appearance. He is normal weight. HENT: Head: Normocephalic and atraumatic. Right Ear: Tympanic membrane, ear canal and external ear normal. Left Ear: Tympanic membrane, ear canal and external ear normal. Nose: Nose normal. Mouth/Throat: Mouth: Mucous membranes are moist. Pharynx: Oropharynx is clear. Eyes: Extraocular Movements: Extraocular movements intact. Conjunctiva/sclera: Conjunctivae normal. Pupils: Pupils are equal, round, and reactive to light. Cardiovascular: Rate and Rhythm: Normal rate and regular rhythm. Pulses: Normal pulses. Heart sounds: Normal heart sounds. Pulmonary: Effort: Pulmonary effort is normal. Breath sounds: Normal breath sounds. Musculoskeletal: Cervical back: Normal range of motion and neck supple. Skin: General: Skin is warm and dry. Capillary Refill: Capillary refill takes less than 2 seconds. Neurological: General: No focal deficit present. Mental Status: He is alert and oriented to person, place, and time. Psychiatric: Mood and Affect: Mood normal. Behavior: Behavior normal. Thought Content: Thought content normal. Judgment: Judgment normal. MDM Unremarkable physical exam findings as noted above. Influenza A/B/SARS-CoV-2/RSV PCR was ordered and the patient was advised that results will be available tomorrow. Supportive care was discussed and the patient and his verbalize excellent understanding of same. CLINICAL IMPRESSION: Acute URI; Covid-19 Testing ASSESSMENT/PLAN: 1. Acute URI - ICD9: 465.9, ICD10: J06.9 - COVID AND INFLUENZA A/B AND RSV PCR, ROUTINE MDM Amount and/or Complexity of Data Reviewed Clinical lab tests: ordered Risk of Complications, Morbidity, and/or Mortality Presenting problems: low Diagnostic procedures: low Management options: low [facility]07-25-2025 History of Present illness Narrative* Leti Rodriguez PA-C - 02/26/2025 8:33 AM EDT [facility] Subjective Soniya Cooley is a 84 year old male. Patient presents with: Rhinitis: Covid test Patient is an 84-year-old male who arrives for testing for COVID-19. Patient reports that he attended the of his sister several days ago with a large number of people that were in attendance.Patient states he developed mild congestion over the past 1 to 2 days. Patient denies fever, chills, myalgia, sinus pressure, sore throat, cough or other illness symptoms. Patient states he otherwiseis feeling in good health. Patient has received a COVID-19 vaccine. Review of Systems HENT: Positive for congestion. All other systems reviewed and are negative. Objective BP 98/70 Pulse 61 Temp 36.5 C (97.7 F) Resp 20 Wt 89.6 kg (197 lb 8.5 oz) SpO2 95% BMI 32.37 kg/m Physical Exam Vitals and nursing note reviewed. Constitutional: Appearance: Normal appearance. He is normal weight. HENT: Head: Normocephalic and atraumatic. Right Ear: Tympanic membrane, ear canal and external ear normal. Left Ear: Tympanic membrane, ear canal and external ear normal. Nose: Nose normal. Mouth/Throat: Mouth: Mucous membranes are moist. Pharynx: Oropharynx is clear. Eyes: Extraocular Movements: Extraocular movements intact. Conjunctiva/sclera: Conjunctivae normal. Pupils: Pupils are equal, round, and reactive to light. Cardiovascular: Rate and Rhythm: Normal rate and regular rhythm. Pulses: Normal pulses. Heart sounds: Normal heart sounds. Pulmonary: Effort: Pulmonary effort is normal. Breath sounds: Normal breath sounds. Musculoskeletal: Cervical back: Normal range of motion and neck supple. Skin: General: Skin is warm and dry. Capillary Refill: Capillary refill takes less than 2 seconds. Neurological: General: No focal deficit present. Mental Status: He is alert and oriented to person, place, and time. Psychiatric: Mood and Affect: Mood normal. Behavior: Behavior normal. Thought Content: Thought content normal. Judgment: Judgment normal. MDM Unremarkable physical exam findings as noted above. Influenza A/B/SARS-CoV-2/RSV PCR was ordered and the patient was advised that results will be available tomorrow. Supportive care was discussed andthe patient and his verbalize excellent understanding of same. CLINICAL IMPRESSION: Acute URI; Covid-19 Testing ASSESSMENT/PLAN: 1. Acute URI - ICD9: 465.9, ICD10: J06.9 - COVID & INFLUENZA A/B & RSV PCR, ROUTINE MDM Amount and/or Complexity of Data Reviewed Clinical lab tests: ordered Risk of Complications, Morbidity, and/or Mortality Presenting problems: low Diagnostic procedures: low Management options: je Rodriguez PA-C documented in this encounterDay[facility]07-24-2025 Telephone encounter Note * Telephone Encounter - Zoe Madrid RN - 02/25/2025 2:38 PM EDT Patient scheduled to see Dr. Mackey 03/01/25. Zoe Madrid RN [facility]07-24-2025 Miscellaneous Notes* Telephone Encounter - Zoe Madrid RN - 02/25/2025 2:38 PM EDT Patient scheduled to see Dr. Mackey 03/01/25. Zoe Madrid RN * Telephone Encounter - Kenney Gonzalez MD - 02/24/2025 11:00 AM EDT Reviewed. Will forward to PCP as FYI. * Telephone Encounter - Stacy Varghese RN - 02/24/2025 10:53 AM EDT Spouse returns call and message below reviewed. She reports that patient hasn't been taking Plavix and will restart once receives from pharmacy. Reports he is scheduled for injection tomorrow with Dr. Lynn and they plan to do that one as he hasn't been on Plavix and [facility]. Stacy Varghese RN * Telephone Encounter - Monalisa Arreola RN - 02/24/2025 9:17 AM EDT Left vm for pt to return call to triage nurse, for provider message. 's mailbox is full * Telephone Encounter - Kenney Gonzalez MD - 02/23/2025 2:52 PM EDT With their recent TIA I would be hesitant to stop their antiplatelet medications for at least 3 months. Are they able to do the injections while he is still taking Plavix? * Telephone Encounter - Roshni Aranda RN - 02/22/2025 12:45 PM EDT Pt's called and is notified of providers results and instructions. She voices understanding. Please call Pt and try and schedule an earlier appointment that May [address] Mackey. Pt's reports he has an appointment coming up with his back doctor where he put the needles in his back, he was asking if this would be ok for him to do. I told her I would need to ask provider. The patient has been identified by name and date of : Yes Caregiver verified no other encounters exist for this prescription request: Yes Caregiver confirmed with patient/requestor that no other refills are due, in the near future, with this provider at this time: Yes The last office visit in the department: 02/08/2025 Does the patient have a future office visit with this provider/department: Yes 02/09/2026 Requested Prescriptions Pending Prescriptions Disp Refills clopidogrel (PLAVIX) 75 mg tablet 90 tablet 1 Sig: Take 1 tablet by mouth once daily. Roshni Aranda RN February 22, 2025 12:48 PM * Telephone Encounter - Oniel Francis MD - 02/19/2025 5:40 PM EDT Let patient know that the halter monitor he wore after being in [facility] for TIA is showingruns of supraventricular tachycardia and that there were two short runs of V-tach. I want him to continue the plavix but would also like for him to see his white goods appliance tech Dr. Mackey for further eval. (I included Dr. Mackey to see if he can help facilitate an appt.) The 14 day halter was done through [facility] and will be scanned into chart. documented in this encounterDayton [facility] Center07-23-2025 Telephone encounter Note * Telephone Encounter - Kenney Gonzalez MD - 02/24/2025 11:00 AM EDT Reviewed. Will forward to PCP as FYI. [facility]07-23-2025 Telephone encounter Note* Telephone Encounter - Stacy Varghese RN - 02/24/2025 10:53 AM EDT Spouse returns call and message below reviewed. She reports that patient hasn't been taking Plavix and will restart once receives from pharmacy. Reports he is scheduled for injection tomorrow with Dr. Lynn and they plan to do that one as he hasn't been on Plavix and will discuss further injections at appt tomorrow. Stcay Varghese RN [facility]07-23-2025 Telephone encounter Note* Telephone Encounter - Monalisa Arreola RN - 02/24/2025 9:17 AM EDT Left vm for pt to return call to triage nurse, for provider message. 's mailbox is full [facility]07-23-2025 NoteHNO ID: [id number] Author: KEREN SYKES LPN Service: ? Author Type: LICENSED NURSE Type: Progress Notes Filed: 02/24/2025 08:02 Note Text: Scan on 02/23/2025 5:42 PM by Karen Escobar PA-C: Chemistry Scan on 02/24/2025 7:21 AM by Karen Escobar PA-C: [facility] - [facility]07-23-20[facility] History of Present illness Narrative* Keren Sykes LPN - 02/24/2025 7:19 AM EDT Scan on 02/23/2025 5:42 PM by Karen Escobar PA-C: Chemistry Scan on 02/24/2025 7:21 AM by Karen Escobar PA-C: Consultation - documented in this encounterDayton [facility] Center07-22-2025 Telephone encounter Note * Telephone Encounter - Kenney Gonzalez MD - 02/23/2025 2:52 PM EDT With their recent TIA I would be hesitant to stop their antiplatelet medications for at least 3 months. Are they able to do the injections while he is still taking Plavix? [facility]07-21-20[facility] Telephone encounter Note* Telephone Encounter - Roshni Aranda RN - 02/22/2025 12:45 PM EDT Pt's called and is notified of providers results and instructions. She voices understanding. Please call Pt and try and schedule an earlier appointment that May [address] Mackey. Pt's reports he has an appointment coming up with his back doctor where he put the needles in his back, he was asking if this would be ok for him to do. I told her I would need to ask provider. The patient has been identified by name and date of : Yes Caregiver verified no other encounters exist for this prescription request: Yes Caregiver confirmed with patient/requestor that no other refills are due, in the near future, with this provider at this time: Yes The last office visit in the department: 02/08/2025 Does the patient have a future office visit with this provider/department: Yes 02/09/2026 Requested Prescriptions Pending Prescriptions Disp Refills clopidogrel (PLAVIX) 75 mg tablet 90 tablet 1 Sig: Take 1 tablet by mouth once daily. Roshni Aranda RN February 22, 2025 12:48 PM [facility]07-18-2025 Telephone encounter Note* Telephone Encounter - Oniel Francis MD - 02/19/2025 5:40 PM EDT Let patient know that the halter monitor he wore after being in [facility] for TIA is showingruns of supraventricular tachycardia and that there were two short runs of V-tach. I want him to continue the plavix but would also like for him to see his white goods appliance tech Dr. Mackey for further eval. (I included Dr. Mackey to see if he can help facilitate an appt.) The 14 day halter was done through [facility] and will be scanned into chart. [facility]07-14-2025 Telephone encounter Note* Telephone Encounter - Melvina Cruz RN - 02/15/2025 10:46 AM EDT Last OV 09/11/2024 START 09/11/2024 F/U OV 03/24/2025 Route to TW for review. LIZETT Hackett, RN, CPN [facility]07-14-2025 Miscellaneous Notes* Telephone Encounter - Melvina Cruz RN - 02/15/2025 10:46 AM EDT Last OV 09/11/2024 START 09/11/2024 F/U OV 03/24/2025 Route to TW for review. LIZETT Hackett, RN, CPN documented in this [facility] Telephone encounter Note * Telephone Encounter - Heather Keenan MA - 02/11/2025 10:07 AM EDT Pt notified and voiced understanding. Heather Keenan MA [facility]07-10-2025 Miscellaneous Notes* Telephone Encounter - Heather Keenan MA - 02/11/2025 10:07 AM EDT Pt notified and voiced understanding. Heather Keenan MA * Telephone Encounter - Heather Keenan MA - 02/11/2025 10:05 AM EDT ----- Message from Oniel Francis MD sent at 02/10/2025 9:11 PM EDT ----- ----- Message ----- From: Amber, Background User Sent: 02/08/2025 5:27 PM EDT To: Ella Valdovinos PA-C * Telephone Encounter - Oniel Francis MD - 02/10/2025 9:07 PM EDT Let patient know A1c is up at 6.5%. if it stays at 6.5 or higher then he is considered diabetic. Strongly encourage decreased sugars, sweets, starches and carbs in his diet. I have placed an order to recheck the A1c in 4 months. All his other labs and UA were ok. [facility] Telephone encounter Note * Telephone Encounter - Heather Keenan MA - 02/11/2025 10:05 AM EDT ----- Message from Oniel Francis MD sent at 02/10/2025 9:11 PM EDT ----- ----- Message ----- From: Amber, Background User Sent: 02/08/2025 5:27 PM EDT To: Ella Valdovinos PA-C [facility]07-09-2025 Telephone encounter Note* Telephone Encounter - Oniel Francis MD - 02/10/2025 9:07 PM EDT Let patient know A1c is up at 6.5%. if it stays at 6.5 or higher then he is considered diabetic. Strongly encourage decreased sugars, sweets, starches and carbs in his diet. I have placed an order to recheck the A1c in 4 months. All his other labs and UA were ok. [facility]07-07-2025 Instructions* Patient Instructions* Oniel Francis MD - 02/08/2025 9:01 AM EDT Please get labs and urine test done on or after 01/28/2026 prior to your next visit. We discussed your recent health concerns and care plan: - Mini Stroke (TIA): - You are currently wearing a Holter monitor. I sent a message to your neurologist, Dr. Saunders, informing him of your recent hospitalization for the TIA and that you were advised not to drive until cleared by him. I strongly encourage you not to drive until you are seen by him. - Continue taking Plavix as prescribed. [facility]. - Continue taking baby aspirin daily, as it is beneficial for your condition. - COVID-19 Booster: - You received a COVID-19 booster today. This is recommended for individuals over 65 to reduce the risk of severe illness or hospitalization from COVID-19. - Vision Concerns: - You mentioned that your vision has not improved as expected after cataract surgery. You have an upcoming appointment with your eye doctor in [place] to address this. It is possible that a hazy membrane behind the lens may need to be treated with a laser procedure. - Mobility and Fall Risk: - You reported some difficulty getting up from chairs and mentioned a recent fall. While you do notfeel you need a walker at this time, please be cautious, especially when walking at night. If your mobility worsens, we can revisit the need for a walker or physical therapy. - Sleep and Frequent Urination: - You are experiencing frequent nighttime urination and difficulty sleeping. Continue taking Tamsulosin (Flomax) as prescribed, even though you feel it is not helping much. Your upcoming appointment with Dr. Fall (urologist) will address these concerns further. - Discuss your sleep issues with Dr. Damon during your March appointment, as he may adjust yoursleep medication. - Medications: - Continue taking the following medications as prescribed: - Atorvastatin and Ezetimibe for cholesterol. - Levothyroxine for thyroid health. - Vitamin D, B12, multivitamin, and fish oil for general health. - Propranolol to help manage tremors. - Flonase is optional and can be used as needed for congestion. - Pain Management: - You are working with Dr. Bowden for pain management and are scheduled for another injection after the first one was not effective. - Skin Checks: - Continue seeing your stakes player annually for skin checks. You recently had lesions removed. Follow-Up: - See your neurologist, Dr. Saunders, as soon as possible for clearance to drive and further evaluation of your TIA. - Attend your upcoming appointment with Dr. Fall (urologist) in the next day or two to address frequent urination. - Follow up with your eye doctor in [place] regarding your vision concerns. - Discuss your sleep issues with Dr. Damon during your March appointment. If you have any new or worsening symptoms, please contact our office. documented in this [facility]Day[facility] History of Present illness Narrative* Oniel Francis MD - 02/08/2025 8:00 AM EDT Images from the original note were not included. Soniya Cooley is a 84 year old male here for a Medicare wellness visit. Medicare Health Risk Assessment General Health Fair Exercise: Minutes/Day 30 min Exercise: Days/Week 1 day Alcohol: Daily Use Monthly or less Alcohol: Drinks/Day 1 or 2 Alcohol: 6 or more drinks Never Feel off balance Yes Concerns: Teeth/Dentures No Concerns: Sexual function No Troubled by feelings None of the above Frequency: Eating healthy diet Several days ADLs requiring help Walking Safety precautions in home/vehicle No (No grab bar in the bathroom, rugs in home) Smoke, vape, chews tobacco No Difficulty hearing No Difficulty seeing No Current Providers Specialists: I have reviewed specialist-related care of the patient in the medical record. Medical/Family history review Reviewed and updated problem list, medical/surgical/family/social history, medications, and allergies. Opioid use review Opioid Medications (last 90 days) No data to display Anxiety/Depression screening PHQ-2 Score: 0 (Lower risk for depression) ANA CRISTINA-2 Score: 0 (Lower risk for anxiety) Recommendation: no further intervention at this time Cognitive screening Mini Cog Score: 2 Cognitive screening reviewed, received 3-5. Mini-Cog Patient asked to remember the following three words: Banana, [place] and Chair Visuospatial/Executive Functioning: Clock drawin/2 (Normal clock with all number in correct sequence and position, hands are correct = 2 points, inability or refusal to draw a clock = 0) Three word recall: 2/3 Total score: 3/5 (Total score = word recall score + clock draw score) Functional Observation Was the patient's Timed Up & Go test unsteady or >= 12 seconds? no Advance Care Planning Surrogate decision maker and/or advance care plan documented Measurements BP 92/64 (BP Site: Right Arm, BP Position: Sitting, BP Cuff Size: Large Adult) Pulse 60 Resp 18 Ht 166.4 cm (5' 5.5) Wt 90.8 kg (200 lb 3.2 oz) BMI 32.81 kg/m Vision Screening: Follows with optometry/ophthalmology Assessment/Plan Medicare annual wellness visit, subsequent (Z00.00) - Counseled on healthy diet and regular exercise - Fall avoidance information provided - Personalized prevention plan provided See below Chief Complaint Patient presents with: Medicare Wellness Exam HPI Soniya Cooley is a 84 year old male who presents here today for a follow up and Medicare Wellness. Patient with hx CAD, HTN, hyperlipidemia, Parkinson's Disease, B12 deficiency, BPH, hypothyroid, and those as below. Patient recently in [facility] for TIA. Placed on plavix. Ordered event monitor. Patient has this on currently. Is taking the plavix. Omero is currently wearing a Holter monitor and is taking Plavix, but is no longer on Coumadin. He isalso taking a baby aspirin. He reports difficulty getting up and out of chairs, sometimes requiringmultiple attempts or assistance, but does not believe he needs a walker. He does not have a lift chair. Omero had a knee replacement about a year ago and has been receiving pain management for back and hip pain, including injections, with another injection planned due to insufficient relief from the first. Omero had cataract surgery over a year ago and is experiencing vision changes, noting that the results were not as good as expected. He has an upcoming appointment with an offshore wind operations manager in [place]. He reports stable dyspnea, but denies hemoptysis, chest pain, or palpitations. Omero had a TIA with symptoms of general weakness adn slurred speach, which had fully resolved by the time he presented tot ER. Extensive testing at the hospital did not identify a cause. He was advised not to drive until seen by his neurologist, but he drove to today's appointment. He denies nausea, emesis, diarrhea, heartburn, hematuria, or hematochezia. Omero reports nocturia every hour, which disrupts his sleep, and does not find Flomax helpful. He has an upcoming appointment with a urologist. Omero had a couple of skin lesions removed recently and sees a stakes player annually for skin checks. He denies unexplained bruising, changes in heat or cold tolerance, increased thirst, syncope, or seizures. He experiences stable tremors due to Parkinson's disease. Omero is taking multiple medications, including atorvastatin, vitamin D, B12, ezetimibe, Flonase, levothyroxine, a multivitamin, fish oil, tamsulosin, trazodone, and propranolol. He reports that trazodone dose not seem to be working well and was prescribed per neurology. He uses Flonase infrequently. Past medical history, appointments, medications, allergies reviewed. [...] a build up on the bovine Valve, [place] 12/2015 Aortic valve replaced 11/13/200510/2018 and anticoagulation was stopped. B12 deficiency 10/18/2014 Bilateral hip pain 12/02/202411/2024: seeing Dr. Bowden BPH associated with nocturia 02/10/2024 Carotid stenosis, asymptomatic, bilateral 10/29/2008 S/P left repair, Sees Edu for yearly US. Chronic bilateral low back pain without sciatica 12/02/202411/2024: seeing Dr. Bowden Coronary atherosclerosis 08/24/2015 History: S/p CABG with a sequential graft to the diagonal branch, lateral and posterior lateral circumflex branches as well as PDA in October 2002 Assessment: Now s/p CABG x 1 LLANOS to LAD Plan: CAD Core Measures: Aspirin: Yes Beta blockers: Yes Statins: Lipitor 40mg started 3-30, LFTs normal-continueon dc. Elevated fasting blood sugar 06/19/2016 Essential hypertension 10/30/2018 Family history of colon cancer 01/31/2010 Family history of malignant neoplasm of gastrointestinal tract Family history of Parkinson's disease 12/11/2019 History of DVT (deep vein thrombosis) 06/19/2017 Patient was on coumadin at the time. spring History of rheumatic heart disease 10/09/2002 Hx of transient ischemic attack (TIA) 02/08/202501/2025 Living will on file 12/12/2021 DPA: Elizabet [...] fever Seasonal allergies 12/17/[address] Dash Skin cancer screening 02/08/2025 Seeing Dario Florence Sleep disorder 07/26/2015 Synovial cyst of right [...] GRAFT 4 VEIN 2002 CABG, quadruple grafts HEART CATHETERIZATION [facility], HEART SURGERY HX HERNIA REPAIR HX IMMUNOCHEMICAL FECAL OCCULT BLOOD TEST 12/25/2016 negative LAPAROSCOPY SURG CHOLECYSTECTOMY Cholecystectomy, lap LEFT HEART [...] Heart Disease Brother Hyperlipidemia Sister PTCA/PCI other ([place]) Sister Cancer Brother prostate cancer other ([place]) Brother Hyperlipidemia Child Hyperlipidemia Child Patient Allergies ALLERGIES Allergen Reactions Iodine Other: See Comments ?decreased BP with iodinated contrast during a cardiac cath. Pt reports he was told by the white goods appliance tech that they almost lost him due to [...] Take 1 tablet by mouth once daily. propranolol ER (INDERAL LA) 80 mg 24 hr capsule Take 1 capsule by mouth once daily. traZODone (DESYREL) 50 mg tablet Take 1 tablet by mouth daily at bedtime. carbidopa-levodopa (SINEMET 25-100) 25-100 mg per tablet Take 3 tablets by mouth three times a day. ezetimibe (ZETIA) 10 mg tablet Take 1 tablet by mouth once daily. tamsulosin (FLOMAX) 0.4 mg TAKE 2 CAPSULES BY MOUTH DAILY AT BEDTIME. meloxicam (MOBIC) 15 mg tablet once daily. [...] (FLONASE) 50 mcg/actuation nasal spray Use 1 Howard in each nostril once daily. Rinse mouth [...] No weight loss, malaise or fevers HEENT: Negative for frequent or significant headaches, No changes in hearing., no nose bleeds or other nasal problems. Having some decreased vision since cataract surgery. Has appt with provider in [place] in the near future., NECK: Negative for lumps, goiter, pain and significant neck swelling RESPIRATORY: Negative for cough, hemoptysis, wheezing, COPD, dyspnea or increased shortness of breath CARDIOVASCULAR: Negative for chest pain, leg swelling, hypertension, CHF or palpitations GI: No nausea, vomiting, or diarrhea, No heartburn or reflux symptoms, and no blood : No history of dysuria, or blood. Up multiple times a night to urinate. MUSCULOSKELETAL: seeing pain management for low back and hip pain. SKIN: Negative for lesions, rash, and itching PSYCH: Negative for mood disorder and recent psychosocial stressors HEMATOLOGY/LYMPHOLOGY: Negative for prolonged bleeding, bruising easily or swollen nodes ENDOCRINE: Negative for cold or heat intolerance, polyuria, polydipsia and goiter NEURO: No history of headaches, syncope, paralysis, seizures or increased tremors SEE HPI EXAM: BP 92/64 (BP Site: Right Arm, BP Position: Sitting, BP Cuff Size: Large Adult) Pulse 60 Resp 18 Ht 166.4 cm (5' 5.5) Wt 90.8 kg (200 lb 3.2 oz) BMI 32.81 kg/m Last 5 Encounter Wt Readings: Date: Wt: 02/08/2025 90.8 kg (200 lb 3.2 oz) 09/11/2024 94.1 kg (207 lb 7.3 oz) 08/31/2024 91.2 kg (201 lb) 05/07/2024 90.7 kg (200 lb) 04/07/2024 88.9 kg (196 lb) General Appearance: Well appearing, alert, in no acute distress, well-hydrated, well nourished. andObese. Skin: sees Derm Head: Normocephalic, no masses, lesions, tenderness or [...] edema, skin discoloration, Good capillary refill. . Musculoskeletal: Muscular strength intact, No joint swelling, deformity, or tenderness. Peripheral Pulses: Normal. Neurologic: Gait I bradykinetic. . Reflexes decreased at the knees. . Sensation to light touch and crainal nerves 2-12 intact.. Genitalia: Normal, Penis normal. No urethral discharge. Scrotum normal to palpation. No hernia.. Health Maintenance List Medicare Advantage Annual Wellness Visit due on 08/05/2024 Influenza Vaccine(1) due on 04/05/2025 Covid-19 Vaccine( season) due on 08/11/2025 LDL Cholesterol due on 02/08/2026 Depression Screening due on 02/08/2026 Anxiety Screening due on 02/08/2026 DTaP,Tdap,Td Vaccine(5 - Td or Tdap) due on 12/04/2027 Diabetes Screening due on 02/09/2028 Advance Directive Discussion Completed RSV Vaccine Completed Shingrix Vaccine Completed Pneumococcal Vaccine: 50+ Completed Colorectal Cancer Screening Discontinued Data reviewed Assessment and Plan 1. Medicare annual wellness visit, subsequent (Z00.00) Comprehensive review of systems and physical examination performed. Discussed current medications and their benefits. - Ordered labs. - pt to work on weight loss. - Follow-up in one year. - Covid 19 updated. 2. Mixed hyperlipidemia (E78.2) Managed with atorvastatin and ezetimibe. - Continue atorvastatin and ezetimibe. - Sent refill for atorvastatin. - pt to get labs completed. 3. Essential hypertension (I10) Stable on current medication regimen. - complete labs 4. Acquired hypothyroidism (E03.9) Managed with levothyroxine. - Continue levothyroxine. - complete labs 5. Elevated blood sugar (R73.9) - Await A1c 6. Carotid stenosis, asymptomatic, bilateral (I65.23) History of bilateral asymptomatic carotid stenosis. - await lipids. - cont statin, ASA and plavix. 7. Coronary 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[place] coronary artery of [place] heart without angina pectoris(I25.10) Stable on current medication regimen. - cont f/u with cardio. - await labs 8. Aortic valve replaced (Z95.2) History of aortic valve replacement. - cont f/u with cardio 9. Hx of transient ischemic attack (TIA) (Z86.73) Recent TIA with residual speech difficulties. Neurologist advised against driving until further evaluation. - Sent message to neurologist Dr. Damon regarding recent TIA and driving restrictions. - Advised patient to refrain from driving until cleared by neurologist. - Continue Plavix; sent refill to [facility] pharmacy. 10. Parkinson's disease with dyskinesia and fluctuating manifestations (HCC) (G20.B2) Experiencing mild tremors, stable on propranolol. - Continue propranolol. - on meds managed per neurology 11. B12 deficiency (E53.8) Managed with B12 supplementation. - Continue B12 supplementation. - await B12 level 12. Obesity, Class I, BMI 30-34.9 (E66.811) - pt to work on weight loss. 13. Vitamin D deficiency (E55.9) Managed with vitamin D supplementation. - Continue vitamin D supplementation. - await Vit D level 14. Chronic bilateral low back pain without sciatica (M54.50) Undergoing pain management with Dr. Bowden; recent injection with plans for another due to insufficient relief. 15. Advance directive discussed with patient (Z71.89) Advance directive status reviewed. - up to date in chart 16. BPH associated with nocturia (N40.1) Experiencing frequent nocturia, currently on tamsulosin with minimal relief. - Continue tamsulosin. - Follow-up with urologist Dr. Fall in the next day or two for further evaluation. 17. Need for vaccination (Z23) Eligible for COVID-19 booster; last vaccination over a year ago. - Administer COVID-19 booster today. 18. Encounter for screening examination for other mental health and behavioral disorders (Z13.39) 19. Screening for depression (Z13.31) 20. Medication management (Z79.899) Reviewed current medications: atorvastatin, Plavix, baby aspirin, vitamin D, B12, ezetimibe, Flonase, levothyroxine,, multivitamin, fish oil, tamsulosin, trazodone, propranolol. - Continue current medications. 21. Sleep disorder (G47.9) Experiencing difficulty sleeping, currently on trazodone with minimal relief. Discuss sleep issues with neurologist Dr. Damon in March for potential medication adjustment. Requested Prescriptions Signed Prescriptions Disp Refills atorvastatin (LIPITOR) 80 mg tablet 90 tablet 1 Sig: Take 1 tablet by mouth once daily. clopidogrel (PLAVIX) 75 mg tablet 90 tablet 1 Sig: Take 1 tablet by mouth once daily. F/u in a year extensive. Check CMP, lipid, UA, A1c, B12, Vit D, TSH and CBC prior. Oniel Francis MD I spent a total of 40 minutes on the date of the service which included preparing to see the patient, [id number] patient care, completing clinical documentation, performing a medically appropriate examination, counseling and educating the patient/family/caregiver and ordering medications, tests, or procedures. Recording using Veri[employer] software for draft documentation of the visit was discussed with the patient/authorized provider service representative; all questions welcomed and answered. Patient/authorized provider service representative agreed to proceed SENSITIVE EXAMINATION CONSENT: The sensitive examination was discussed with the Patient or Patient's Authorized Medical Assistant Internal Medicine. Asapplicable, any other physician, advance practice provider, medical student, or other health professional student that will be observing or involved in the sensitive examination for educational or training purposes was discussed with the Patient or Authorized Medical Assistant Internal Medicine. The Patient or Authorized Medical Assistant Internal Medicine has agreed to proceed with the sensitive examination. documented in this [facility]Day[facility] NoteHNO ID: [id number] Author: ONIEL FRANCIS MD Service: ? Author Type: Physician Type: Progress Notes Filed: 02/08/2025 21:20 Note Text: Soniya Cooley is a 84 year old male here for a Medicare wellness visit. Medicare Health Risk Assessment General Health Fair Exercise: Minutes/Day 30 min Exercise: Days/Week 1 day Alcohol: Daily Use Monthly or less Alcohol: Drinks/Day 1 or 2 Alcohol: 6 or more drinks Never Feel off balance Yes Concerns: Teeth/Dentures No Concerns: Sexual function No Troubled by feelings None of the above Frequency: Eating healthy diet Several days ADLs requiring help Walking Safety precautions in home/vehicle No (No grab bar in the bathroom, rugs in home) Smoke, vape, chews tobacco No Difficulty hearing No Difficulty seeing No Current Providers Specialists: I have reviewed specialist-related care of the patient in the medical record. Medical/Family history review Reviewed and updated problem list, medical/surgical/family/social history, medications, and allergies. Opioid use review Opioid Medications (last 90 days) No data to display Anxiety/Depression screening PHQ-2 Score: 0 (Lower risk for depression) ANA CRISTINA-2 Score: 0 (Lower risk for anxiety) Recommendation: no further intervention at this time Cognitive screening Mini Cog Score: 2 Cognitive screening reviewed, received 3-5. Mini-Cog Patient asked to remember the following three words: Banana, [place] and Chair Visuospatial/Executive Functioning: Clock drawin/2 (Normal clock with all number in correct sequence and position, hands are correct = 2 points, inability or refusal to draw a clock = 0) Three word recall: 2/3 Total score: 3/5 (Total score = word recall score + clock draw score) Functional Observation Was the patient's Timed Up AND Go test unsteady or >= 12 seconds? no Advance Care Planning Surrogate decision maker and/or advance care plan documented Measurements BP 92/64 (BP Site: Right Arm, BP Position: Sitting, BP Cuff Size: Large Adult) Pulse 60 Resp 18 Ht 166.4 cm (5' 5.5) Wt 90.8 kg (200 lb 3.2 oz) BMI 32.81 kg/m? Vision Screening: Follows with optometry/ophthalmology Assessment/Plan Medicare annual wellness visit, subsequent (Z00.00) - Counseled on healthy diet and regular exercise - Fall avoidance information provided - Personalized prevention plan provided See below Chief Complaint Patient presents with: Medicare Wellness Exam HPI Soniya Cooley is a 84 year old male who presents here today for a follow up and Medicare Wellness. Patient with hx CAD, HTN, hyperlipidemia, Parkinson's Disease, B12 deficiency, BPH, hypothyroid, and those as below. Patient recently in [facility] for TIA. Placed on plavix. Ordered event monitor. Patient has this on currently. Is taking the plavix. Omero is currently wearing a Holter monitor and is taking Plavix, but is no longer on Coumadin. He is also taking a baby aspirin. He reports difficulty getting up and out of chairs, sometimes requiring multiple attempts or assistance, but does not believe he needs a walker. He does not have a lift chair. Omero had a knee replacement about a year ago and has been receiving pain management for back and hip pain, including injections, with another injection planned due to insufficient relief from the first. Omero had cataract surgery over a year ago and is experiencing vision changes, noting that the results were not as good as expected. He has an upcoming appointment with an offshore wind operations manager in [place]. He reports stable dyspnea, but denies hemoptysis, chest pain, or palpitations. Omero had a TIA with symptoms of general weakness adn slurred speach, which had fully resolved by the time he presented to the ER. Extensive testing at the hospital did not identify a cause. He was advised not to drive until seen by his neurologist, but he drove to today's appointment. He denies nausea, emesis, diarrhea, heartburn, hematuria, or hematochezia. Omero reports nocturia every hour, which disrupts his sleep, and does not find Flomax helpful. He has an upcoming appointment with a urologist. Omero had a couple of skin lesions removed recently and sees a stakes player annually for skin checks. He denies unexplained bruising, changes in heat or cold tolerance, increased thirst, syncope, or seizures. He experiences stable tremors due to Parkinson's disease. Omero is taking multiple medications, including atorvastatin, vitamin D, B12, ezetimibe, Flonase, levothyroxine, a multivitamin, fish oil, tamsulosin, trazodone, and propranolol. He reports that trazodone dose not seem to be working well and was prescribed per neurology. He uses Flonase infrequently. Past medical history, appointments, medications, allergies reviewed. Previous Medical History PAST MEDICAL HISTORY Diagnosis Date Acquired hypothyroidism 03/16/2020 Advance directive discussed with pa (more content not included)...[facility]06-17-2025 Discharge summary [facility] Medical Records Department [address] [place] [id number] Discharge Summary 01/19/25 1812 MR#: [id number] Acct: [id number] Name: SONIYA COOLEY Rep #:[id number] : 1940 84 From: Leti Lu DO PCP: Dr. Oniel Francis MD Status:ADM DARI Location: [place] [address] Providers Date of Admission: 01/19/25 Date of Discharge: 01/19/25 Primary Care Physician: Dr. Oniel Francis MD Consultations 01/19/25 12:11 Neurology [Consult: Tele-Neurology] Routine Consulting Provider: [facility] Reason for Consult: ? TIA EMERGENT Consult: No MD Notified: Yes Date Notified: 01/19/25 Time Notified: 12:11 Method of Notification: [facility] Nursing Unit Staff Notify [facility] of Tele-Neurology Consult: Yes Reason For Visit: TRANSIENT ISCHEMIC ATTACK Diagnosis Discharge Diagnosis (1) H/O coronary artery bypass surgery: Status: Resolved Code(s): Z95.1 - Presence of aortocoronary bypass graft (2) H/O aortic valve replacement: Status: Chronic Code(s): Z95.2 - Presence of prosthetic heart valve (3) Essential hypertension: Status: Chronic Code(s): I10 - Essential (primary) hypertension (4) Hyperlipidemia: Status: Chronic Code(s): E78.5 - Hyperlipidemia, unspecified (5) Stroke-like symptoms: Status: Acute Code(s): R29.90 - Unspecified symptoms and signs involving the nervous system Plan 1. Transient ischemic attack #2 Parkinson's disease #3 coronary artery disease #4 aortic valvular disease #5 hyperlipidemia Medications at Discharge Home Medications cfdzybyx-teg-hsjvc acid 0.4 mg-lycopene 300 mcg-lutein 250 mcg tablet 1 ea PO DAILY 05/28/16 acetaminophen 500 mg tablet 1,000 mg PO TID PRN fever or pain 05/29/19 cyanocobalamin (vitamin B-12) 500 mcg sublingual tablet 1,000 mcg PO DAILY 05/29/19 aspirin 81 mg chewable tablet 81 mg PO DAILY 12/22/19 carbidopa 25 mg-levodopa 100 mg tablet 2 tab PO TID 02/03/21 cholecalciferol (vitamin D3) 25 mcg (1,000 unit) tablet 2,000 unit PO BID 02/03/21 fluticasone propionate 50 mcg/actuation nasal spray,suspension (Allergy Relief (fluticasone)) 1 spray intranasal DAILY PRN nasal congestion 02/03/21 levothyroxine 25 mcg tablet 25 mcg PO DAILY 02/03/21 metoprolol tartrate 50 mg tablet See Rx Instructions .Route .COMPLEX #180 tabs 12/17/22 nitroglycerin 0.4 mg sublingual tablet See Rx Instructions .Route .COMPLEX #25 tabs 02/25/23 atorvastatin 80 mg tablet 80 mg PO QHS 01/19/25 clopidogrel 75 mg tablet (Plavix) 75 mg PO DAILY #21 tabs 01/19/25 propranolol 80 mg capsule,24 hr,extended release 80 mg PO Q24H 01/19/25 tamsulosin 0.4 mg capsule 0.8 mg PO QHS 01/19/25 trazodone 50 mg tablet 50 mg PO QHS 01/19/25 Hospital Course Operations None Procedures 2-D Echocardiogram Summary of Care Provided Minutes Spent on Discharge: 31 Hospital Course: This 84-year-old white male was seen in the emergency room at [facility] after being brought in by his due to slurred speech and generalized weakness when the patient awoke the morning of 01/19/2025. Patient had gone to bed approximately 11 PM the night before and was well at that time. A stroke team was not called due to the timeframe, the case was discussed with [facility] neurologist however and it was confirmed he was outside the window for TNK and he had spontaneous resolutionof his symptoms by the time he had reached theemergency room. Patient had a CT of the brain and CTAof the head and neck which did not reveal any large vessel occlusion or stroke or bleed. Patient's N IH was 0, labs were unremarkable. Patient was placed in observation status on PCU, he was seen in consultation by neurology who recommended a 30-day Holter monitor, the use of aspirin and Plavix for 21 days then drop in the Plavix off, and recommended a statin and the patient follow-up with neurology. Patient had established care with a neurologist due to his Parkinson's disease and had an upcoming appointment in the next few weeks. Patient had echocardiogram performed which was unremarkable, patient was seen by PT and OT as well as speech therapy and required no follow-up to the fact he was asymptomatic On 01/19/2025, patient was seen and examined: On examination he appeared in good health and spirits.Vital signs as documented. Skin warm and dry and without overt rashes. Neck without JVD, neck was supple, trachea midline, thyroid was normal. Lungs clear bilaterally, normal air movement was noted. Heart exam notable for regular rhythm, normal sounds and absence of murmurs, rubs or gallops. Abdomen unremarkable and without evidence of organomegaly, masses, or abdominal aortic enlargement. Bowel sounds are present, abdomen is not distended. Extremities nonedematous, no cyanosis was noted, no clubbing was noted. Neuro: Cranial nerves II through XII are grossly intact, no focal motor deficits were noted, sensation to light touch and pinprick intact, motor exam 5/5 throughout. Psych: Patient is alert and oriented x3, he does not appear anxious or depressed, he does not appear agitated. Patient was discharged home in stable condition on 01/19/2025 Weight / BMI Weight Weight: 92.8 kg Body Mass Index (BMI) 32.0 ABG / Lab / Microbiology Data 01/19/25 04:00 01/19/25 04:00 Laboratory: Laboratory Results - last 24 hr 01/19/25 04:00: WBC 6.3, RBC 4.31 L, Hgb 14.2, Hct 40.8, MCV 94.7 H, MCH 32.9 H,MCHC 34.8, RDW Std Deviation 46.3 H, RDW Coeff of Adrian 13.2, Plt Count 135 L, MPV10.4, Immature Gran % (Auto) 0.200, Neut % (Auto) 36.7 L, Lymph % (Auto) 48.3 H,Tensas % (Auto) 10.0, Eos % (Auto) 4.3, Baso % (Auto) 0.5, Absolute Neuts (auto) 2.3, Absolute Lymphs (auto) 3.03, Nucleated RBC % 0, PT 13.4, INR 1.0, APTT 28.5, Sodium 140, Potassium 4.1, Chloride 105, Carbon Dioxide 23.1, Anion Gap 12, BUN 25 H, Creatinine 0.91, Estim Creat Clear Calc 68.19, Est GFR (MDRD) Non- Af 84, BUN/Creatinine Ratio 27.0 H, Glucose 145 H, Calcium 9.7 01/19/25 04:40: Urine Color Yellow, Urine Clarity Clear, Urine pH 6.0, Ur Specific [place] 1.015, Urine Protein Negative, Urine Glucose (UA) Normal, UrineKetones Negative, Urine Occult Blood Negative, Urine Nitrite Negative, Urine Bilirubin Negative, Urine Urobilinogen Normal, Ur Leukocyte Esterase Negative, Urine RBC 0 SEEN, Urine WBC 0 SEEN, Ur Squamous Epith Cells 0 SEEN, Urine Bacteria 0 SEEN, Urine Mucus 0 SEEN Radiography Diagnostic Testing: Radiology Impression Brain CT 01/19/25 04:00 IMPRESSION: No CT evidence for acute brain abnormality. [facility] Head/Neck CTA 01/19/25 04:03 IMPRESSION: Atherosclerosis without high-grade stenosis. [facility] Chest X-Ray 01/19/25 04:45 IMPRESSION: Mild bilateral basilar atelectatic pulmonary changes. Reading [facility] Brain MRI 01/19/25 09:20 IMPRESSION: Sinus disease is visible in the floor of the right maxillary sinus. There is fluid signal in a portion of the right mastoid air cells, with mastoiditis. No acute intracranial abnormality is identified. Reading [facility] Echocardiogram 01/19/25 13:33 Interpretation Summary The left ventricular ejection fraction is 55 %. Normal LV size. Stage 1 diastolic dysfunction. Pulmonary artery systolic pressure is 23 mmHg. Bioprosthetic aortic valve. Contrast injection was performed. Ordering Physician: Leti Lu Performed By: Suzan Leonard RDCS D/C Instructions Discharge Diet: No restrictions Weight Bearing Status: Full weight bearing DC O2, CPAP, BIPAP Needs Home O2 Discharge instructions: No Meaningful Use Info Meaningful Use Meaningful Use Diagnoses (Choose all that apply): None applicable Ischemic Stroke Statin Dosing Therapy Reference: STATIN DOSE THERAPY REFERENCE: * Patients > 75 years receive moderate or high dose statin therapy. * Patients 75 years or YOUNGER should receive HIGH intensity statin dose unless contraindicated. You will be required to document reason for non-treatment if statin daily dose does not meet guidelines. HIGH DOSE STATIN THERAPY DAILY Atorvastatin > than or = to 40 mg Rosuvastatin > than or = to 20 mg Amlodipine + Atorvastatin > than or = to 2.5/40 mg Ezetimibe + Simvastatin 10/80 mg Simvastatin 80mg Discharge Plan Admission Admit Date/Time: 01/19/25 06:07 Primary Reason for Your Visit: Transient ischemic attack Attending Provider: Leti Lu Primary Care Provider: Oniel Francis Consulting Providers: Mik Kilgore; Graham Gutierrez; Brooklyn Peñaloza; Bianca Jerry; Kavita Glass; Odessa Wray; Matthew Rushign; Yarely Ackerman; Harinder Hill; Jorge Bui;Nando Rosales; Xenia Fournier; Sulaiman Carrasquillo; Aleksandra Gonzales; Zoila Maciel; Audi Phillip Yoan; Adebayo Valdovinos; Dali Sanchez; Ángel King; Dary Villalta; Tia Mcleod Instructions Additional Instructions / Restrictions: Follow-up as scheduled with your neurologist Discharge Orders/Prescriptions Prescriptions: New clopidogrel [Plavix] 75 mg tablet 75 mg PO DAILY Qty: 21 0RF Rx Instructions: Start on 01/20/2025, take for 21 days then discontinue Continued acetaminophen 500 mg tablet 1,000 mg PO TID PRN (Reason: fever or pain) fluticasone propionate [Allergy Relief (fluticasone)] 50 mcg/actuation spray,suspension 1 spray INTRANASAL DAILY PRN (Reason: nasal congestion) carbidopa-levodopa 25-100 mg tablet 2 tab PO TID levothyroxine 25 mcg tablet 25 mcg PO DAILY xmpscumq-hos-KD-lycopen-lutein 1 EACH tablet 1 ea PO DAILY Patient Comments: supplement cyanocobalamin (vitamin B-12) 500 mcg tablet, sublingual 1,000 mcg PO DAILY Patient Comments: supplement aspirin 81 mg tablet,chewable 81 mg PO DAILY Patient Comments: heart health cholecalciferol (vitamin D3) 25 mcg (1,000 unit) tablet 2,000 unit PO BID Patient Comments: supplement atorvastatin 80 mg tablet 80 mg PO QHS propranolol 80 mg capsule,extended release 24 hr 80 mg PO Q24H trazodone 50 mg tablet 50 mg PO QHS tamsulosin 0.4 mg capsule 0.8 mg PO QHS metoprolol tartrate 50 mg tablet See Rx Instructions .ROUTE .COMPLEX Qty: 180 3RF Dose Instruction: TAKE 1 TABLET TWICE A DAY Rx Instructions: TAKE 1 TABLET TWICE A DAY nitroglycerin 0.4 mg tablet, sublingual See Rx Instructions .ROUTE .COMPLEX Qty: 25 6RF Dose Instruction: PLACE 1 TABLET UNDER THE TONGUE AND ALLOW TO DISSOLVE EVERY 5 TO 15 MINUTES FOR CHEST PAIN. DO NOT EXCEED 3 DOSES Rx Instructions: PLACE 1 TABLET UNDER THE TONGUE AND ALLOW TO DISSOLVE EVERY 5 TO 15 MINUTES FOR CHEST PAIN. DO NOT EXCEED 3 DOSES Other Ambulatory Orders: 30 Day Event Recorder Preventi (Urgent) Timeframe: 1 Day Facility: [facility] - Location: Cardiovascular Services Ordered By: Dr. Leti Lu Referrals / Follow Up: Oniel Francis MD [Primary Care Provider] - See Referral Note (At next appointment time) Disposition Disposition (needs filled in before D/C Order can be placed): Home, Self Care Charges/Coding Visit Charges Inpatient E&M: 54868 Disch Hosp >30min 01/19/25 181 Cosigner Signature (if applicable): CC: Dr. Oniel Francis MD; Dr. Leti Lu DO~ Signed [facility]06-17-2025 Discharge summary [facility] Medical Records Department [address] [place] [address] Instructions for Home/Discharge Instructions 01/19/25 1805 MR#: [id number] Acct: [id number] Name: SONIYA COOLEY Rep #:[id number] : 1940 84 From: Leti Lu DO PCP: Dr. Oniel Francis MD Status:ADM DARI Discharge Instructions Diet Discharge Diet: No restrictions DC O2, CPAP, BIPAP needs Home O2 Discharge instructions: No Dressing / Incision Discharge Activity: Return to Normal Activity Weight Bearing Status: Full weight bearing Follow Up Care Test Results: Test results from this visit will be discussed in further detail at your follow- up appointment, if applicable. Discharge Plan Admission Admit Date/Time: 01/19/25 06:07 Primary Reason for Your Visit: Transient ischemic attack Attending Provider: Leti Lu Primary Care Provider: Oniel Francis Consulting Providers: Mik Kilgore; Graham Gutierrez; Brooklyn Peñaloza; Bianca Jerry; Kavita Glass; Odessa Wray; Matthew Rushing; Yarely Ackerman; Harinder Hill; Jorge Bui;Nando Rosales; Xenia Fournier; Sulaiman Carrasquillo; Aleksandra Gonzales; Zoila Maciel; Kenjiolinda Milton; Adebayo Valdovinos; Dali Sanchez; Ángel King; Dary Villalta; Tia Mcleod Instructions Additional Instructions / Restrictions: Follow-up as scheduled with your neurologist Discharge Orders/Prescriptions Prescriptions: New clopidogrel [Plavix] 75 mg tablet 75 mg PO DAILY Qty: 21 0RF Rx Instructions: Start on 01/20/2025, take for 21 days then discontinue Continued acetaminophen 500 mg tablet 1,000 mg PO TID PRN (Reason: fever or pain) fluticasone propionate [Allergy Relief (fluticasone)] 50 mcg/actuation spray,suspension 1 spray INTRANASAL DAILY PRN (Reason: nasal congestion) carbidopa-levodopa 25-100 mg tablet 2 tab PO TID levothyroxine 25 mcg tablet 25 mcg PO DAILY oydrszqy-vcv-UF-lycopen-lutein 1 EACH tablet 1 ea PO DAILY Patient Comments: supplement cyanocobalamin (vitamin B-12) 500 mcg tablet, sublingual 1,000 mcg PO DAILY Patient Comments: supplement aspirin 81 mg tablet,chewable 81 mg PO DAILY Patient Comments: heart health cholecalciferol (vitamin D3) 25 mcg (1,000 unit) tablet 2,000 unit PO BID Patient Comments: supplement atorvastatin 80 mg tablet 80 mg PO QHS propranolol 80 mg capsule,extended release 24 hr 80 mg PO Q24H trazodone 50 mg tablet 50 mg PO QHS tamsulosin 0.4 mg capsule 0.8 mg PO QHS metoprolol tartrate 50 mg tablet See Rx Instructions .ROUTE .COMPLEX Qty: 180 3RF Dose Instruction: TAKE 1 TABLET TWICE A DAY Rx Instructions: TAKE 1 TABLET TWICE A DAY nitroglycerin 0.4 mg tablet, sublingual See Rx Instructions .ROUTE .COMPLEX Qty: 25 6RF Dose Instruction: PLACE 1 TABLET UNDER THE TONGUE AND ALLOW TO DISSOLVE EVERY 5 TO 15 MINUTES FOR CHEST PAIN. DO NOT EXCEED 3 DOSES Rx Instructions: PLACE 1 TABLET UNDER THE TONGUE AND ALLOW TO DISSOLVE EVERY 5 TO 15 MINUTES FOR CHEST PAIN. DO NOT EXCEED 3 DOSES Other Ambulatory Orders: 30 Day Event Recorder Preventi (Urgent) Timeframe: 1 Day Facility: [facility] - Location: Cardiovascular Services Ordered By: Dr. Leti Lu Referrals / Follow Up: Oniel Francis MD [Primary Care Provider] - See Referral Note (At next appointment time) Disposition Disposition (needs filled in before D/C Order can be placed): Home, Self Care 01/19/251811Leti Lu DO CC: Kavita Glass; Aleksandra Gonzales; Adebayo Valdovinos; Odessa Wray MD; Bianca Jerry MD; Graham Gutierrez MD; Dr. Brooklyn Peñaloza MD; Dr. Matthew Rushing MD; Dr. Eve MD; Dr. Jorge Bui MD; Dr. Harinder Hill MD; Dr. Oniel Francis MD; Dr.Jorge Bobby MD; Dr. Sulaiman Carrasquillo DO; Dr. Audi Phillip MD; Dr. Zoila Maciel MD; Dr. Mik Kilgore MD; Dr. Dali Sanchez MD; Dr. Ángel King MD; Dr. Dary Villalta MD; Xenia Fournier DO; Tia Mcleod MD ~ Signed [facility]06-17-2025 [facility] Medical Records Department [address] [place] [address] Discharge Summary 01/19/251811 MR#: [id number] Acct: [id number] Name: SONIYA COOLEY Rep #: [id number] : 1940 84 From: Leti Lu DO PCP: Dr. Oniel Francis MD Status:DIS DARI [facility] Prov[facility] Date of Admission: 01/19/25 Date of Discharge: 01/19/25 Primary Care Physician: Dr. Oniel Francis MD Consultations 01/19/25 12:11 Neurology [Consult: Tele-Neurology] Routine Consulting Provider: [facility] Reason for Consult: ? TIA EMERGENT Consult: No MD Notified: Yes Date Notified: 01/19/25 Time Notified: 12:11 Method of Notification: [facility] Service Nursing Unit Staff Not[facility] of Tele-Neurology Consult: Yes Reason For Visit: TRANSIENT ISCHEMIC ATTACK Diagnosis Discharge Diagnosis (1) H/O coronary artery bypass surgery: Status: Resolved Code(s): Z95.1 - Presence of aortocoronary bypass graft (2) H/O aortic valve replacement: Status: Chronic Code(s): Z95.2 - Presence of prosthetic heart valve (3) Essential hypertension: Status: Chronic Code(s): I10 - Essential (primary) hypertension (4) Hyperlipidemia: Status: Chronic Code(s): E78.5 - Hyperlipidemia, unspecified (5) Stroke-like symptoms: Status: Acute Code(s): R29.90 - Unspecified symptoms and signs involving the nervous system Plan 1. Transient ischemic attack #2 Parkinson's disease #3 coronary artery disease #4 aortic valvular disease #5 hyperlipidemia Medications at Discharge Home Medications hkskxttq-amr-jtoxb acid 0.4 mg-lycopene 300 mcg-lutein 250 mcg tablet 1 ea PO DAILY 05/28/16 acetaminophen 500 mg tablet 1,000 mg PO TID PRN fever or pain 05/29/19 cyanocobalamin (vitamin B-12) 500 mcg sublingual tablet 1,000 mcg PO DAILY 05/29/19 aspirin 81 mg chewable tablet 81 mg PO DAILY 12/22/19 carbidopa 25 mg-levodopa 100 mg tablet 2 tab PO TID 02/03/21 cholecalciferol (vitamin D3) 25 mcg (1,000 unit) tablet 2,000 unit PO BID 02/03/21 fluticasone propionate 50 mcg/actuation nasal spray,suspension (Allergy Relief (fluticasone)) 1 spray intranasal DAILY PRN nasal congestion 02/03/21 levothyroxine 25 mcg tablet 25 mcg PO DAILY 02/03/21 metoprolol tartrate 50 mg tablet See Rx Instructions .Route .COMPLEX #180 tabs 12/17/22 nitroglycerin 0.4 mg sublingual tablet See Rx Instructions .Route .COMPLEX #25 tabs 02/25/23 atorvastatin 80 mg tablet 80 mg PO QHS 01/19/25 clopidogrel 75 mg tablet (Plavix) 75 mg PO DAILY #21 tabs 01/19/25 propranolol 80 mg capsule,24 hr,extended release 80 mg PO Q24H 01/19/25 tamsulosin 0.4 mg capsule 0.8 mg PO QHS 01/19/25 trazodone 50 mg tablet 50 mg PO QHS 01/19/25 Hospital Course Operations None Procedures 2-D Echocardiogram Summary of Care Provided Minutes Spent on Discharge: 31 Hospital Course: This 84-year-old white male was seen in the emergency room at [facility] after being brought in by his due to slurred speech and generalized weakness when the patient awoke the morning of 01/19/2025. Patient had gone to bed approximately 11 PM the night before and was well at that time. A stroke team was not called due to the timeframe, the case was discussed with [facility] neurologist however and it was confirmed he was outside the window for TNK and he had spontaneous resolution of his symptoms by the time he had reached the emergency room. Patient had a CT of the brain and CTA of the head and neck which did not reveal any large vessel occlusion or stroke or bleed. Patient's NIH was 0, labs were unremarkable. Patient was placed in observation status on PCU, he was seen in consultation by neurology who recommended a 30-day Holter monitor, the use of aspirin and Plavix for 21 days then drop in the Plavix off, and recommended a statin and the patient follow-up with neurology. Patient had established care with a neurologist due to his Parkinson's disease and had an upcoming appointment in the next few weeks. Patient had echocardiogram performed which was unremarkable, patient was seen by PT and OT as well as speech therapy and required no follow-up to the fact he was asymptomatic On 01/19/2025, patient was seen and examined: On examination he appeared in good health and spirits. Vital signs as documented. Skin warm and dry and without overt rashes. Neck without JVD, neck was supple, trachea midline, thyroid was normal. Lungs clear bilaterally, normal air movement was noted. Heart exam notable for regular rhythm, normal sounds and absence of murmurs, rubs or gallops. Abdomen unremarkable and without evidence of organomegaly, masses, or abdominal aortic enlargement. Bowel sounds are present, abdomen is not distended. Extremities nonedematous, no cyanosis was noted, no clubbing was noted. Neuro: Cranial nerves II through XII are grossly intact, no focal (more content not included)...[facility] 01-19-2025 Consult note Author Sulaiman Carrasquillo [facility] Note Date/Time January 19, 2025 1:29 pm [facility] Medical Records Department [address] [place] [address] Consultation - Neurology 01/19/25 1324 MR#: [id number] Acct: [id number] Name: SONIYA COOLEY Rep #:[id number] : 1940 84 From: Sulaiman Carrasquillo MD PCP: Dr. Oniel Francis MD Status:ADM DARI Location: [place] [address] Assessment and Plan: Stroke Assessment/Plan Mr Cooley presents with acute onset dysarthria and bilateral lower extremity weakness concerning for a Transient Ischemic Attack (TIA). While he did miss a dose of sinemet that evening, he has never had such pronounced dysarthria with previous missed doses so less likely symptoms d/t PD. Obtain lipid panel and hemoglobin A1c. Recommend TTE and 30 day rock duster after discharge. PT/OT eval. Load with clopidogrel 300mg now. Use aspirin 81mg and clopidogrel 75mg daily x 21 days then stop clopidogrel. Continue aspirin indefinitely. Continue home atorvastatin 80mg daily. OK to discharge after TTE from neurological standpoint. Follow up with neurology as an outpatient. Warned about signs and symptoms of a stroke. HPI Consult Data Date of Consult: 01/19/25 HPI Narrative HPI Narrative: SONIYA COOLEY, is a 84 M w/ Parkinson Disease, L carotid stenosis s/p CEA, CADs/p CABG (2019). 01/19/25 awoke in the night w/ acute BLE weakness and dysarthriax 40 min then resolved. NIHSS 0. Did miss a dose of Sinemet but never has had dysarthria like that before with prior missed doses. MRI/CTA neg. [facility] Medical History (Updated 01/19/25 @ 08:[address] Tate Mcdonough DO) Parkinson disease Family history of malignant neoplasm of colon in mother Personal history of colonic polyps Essential tremor Aortic prosthetic valve regurgitation Deep vein thrombophlebitis of right leg Obesity Left carotid artery stenosis Prosthetic aortic valve stenosis Central sleep apnea Nonrheumatic aortic (valve) insufficiency Bicuspid aortic valve Vitamin D deficiency History of rheumatic fever Hyperlipidemia History of carotid artery disease Atherosclerosis of coronary artery of [place] heart without angina pectoris Essential hypertension Contusion of finger without damage to nail Laceration of finger of left hand without foreign body without damage to nail Hemorrhoids Shortness of breath Neck pain on left side Tingling and numbness left fingers Home Medications ?Medication ?Instructions ?Recorded ?Last Taken ?Type xqbgulmf-iod-pikxg acid 0.4 1 ea PO DAILY 05/28/16 History mg-lycopene 300 mcg-lutein 250 mcg tablet acetaminophen 500 mg tablet 1,000 mg PO TID PRN fever or pain 05/29/19 Unknown History cyanocobalamin (vitamin B-12) 500 1,000 mcg PO DAILY 1 Unknown History mcg sublingual tablet aspirin 81 mg chewable tablet 81 mg PO DAILY 12/22/19 Unknown History carbidopa 25 mg-levodopa 100 mg 2 tab PO TID 02/03/21 Unknown History tablet cholecalciferol (vitamin D3) 25 2,000 unit PO BID 09/25 Unknown History mcg (1,000 unit) tablet fluticasone propionate 50 1 spray intranasal DAILY PRN nasal 02/03/21 Unknown History mcg/actuation nasal congestion spray,suspension (Allergy Relief (fluticasone)) levothyroxine 25 mcg tablet 25 mcg PO DAILY 02/03/21 U nknown History metoprolol tartrate 50 mg tablet See Rx Instructions . Route 12/17/22 Unknown Rx .COMPLEX #180 tabs nitroglycerin 0.4 mg sublingual See Rx Instructions .R oute 02/25/23 Unknown Rx tablet .COMPLEX #25 tabs atorvastatin 80 mg tablet 80 mg PO QHS 01/19/25 Unknow n History propranolol 80 mg capsule,24 80 mg PO Q24H 01/19/25 Un known History hr,extended release tamsulosin 0.4 mg capsule 0.8 mg PO QHS 01/19/25 Unkno wn History trazodone 50 mg tablet 50 mg PO QHS 01/19/25 Unknow n History Allergy/AdvReac Type Severity Reaction Status Date / Time iodine Allergy Other Verified 01/19/25 03:56 Penicillins Allergy Hives Verified 01/19/25 03:56 Family History Mother Heart disease Colon cancer Father Diabetes Sister Heart disease Brother Heart disease Surgical History (Updated 01/19/25 @ 04:14 by Alexsandra Salas) History of single vessel coronary artery bypass History of cataract extraction History of colonoscopy (~2014) History of left heart catheterization (08/26/18) H/O coronary artery bypass surgery (10/2018) H/O aortic valve replacement (10/2018) History of left-sided carotid endarterectomy (2008) History of hernia repair History of cholecystectomy History of tonsillectomy Social History Smoking Status: Never smoker alcohol intake: current alcohol intake frequency: a few times a month Alcohol type: beer and wine substance use type: does not use caffeine: No Vital Signs Vital Signs Vital Signs: 01/19/25 03:53 01/19/25 03:57 01/19/25 04:00 Temperature 98.0 F Temperature Source Oral Pulse Rate 69 67 69 Respiratory Rate 18 18 18 Blood Pressure 152/73 H 152/73 H 137/70 H Blood Pressure Mean 99 99 92 Blood Pressure Source Blood Pressure Position Blood Pressure Location Pulse Ox 93 93 92 Oxygen Delivery Method Room Air Room Air Oxygen Flow Rate (L/min) 01/19/25 04:10 01/19/25 04:30 01/19/25 05:00 Temperature Temperature Source Pulse Rate 68 66 Respiratory Rate 18 18 Blood Pressure 154/84 H 135/83 H Blood Pressure Mean 107 100 Blood Pressure Source Blood Pressure Position Blood Pressure Location Pulse Ox 93 92 92 Oxygen Delivery Method Room Air Room Air Room Air Oxygen Flow Rate (L/min) 01/19/25 05:30 01/19/25 06:00 01/19/25 06:22 Temperature 98.2 F Temperature Source Pulse Rate 65 63 64 Respiratory Rate 18 18 18 Blood Pressure 157/92 H 141/75 H 139/59 H Blood Pressure Mean 113 97 85 Blood Pressure Source Blood Pressure Position Blood Pressure Location Pulse Ox 93 92 93 Oxygen Delivery Method Room Air Room Air Oxygen Flow Rate (L/min) 01/19/25 06:30 01/19/25 06:45 01/19/25 08:07 Temperature 97.7 F L Temperature Source Oral Pulse Rate 60 65 Respiratory Rate 18 18 Blood Pressure 127/98 H 116/78 Blood Pressure Mean 107 90 Blood Pressure Source Monitor Blood Pressure Position Semi-Fowlers Blood Pressure Location Left Arm Pulse Ox 86 94 95 Oxygen Delivery Method Room Air Nasal Cannula Nasal Cannula Oxygen Flow Rate (L/min) 1 2 01/19/25 10:00 01/19/25 10:45 01/19/25 12:51 Temperature 97.4 F L Temperature Source Oral Pulse Rate 59 L Respiratory Rate 17 Blood Pressure 131/78 H Blood Pressure Mean 95 Blood Pressure Source Monitor Blood Pressure Position Semi-Fowlers Blood Pressure Location Left Arm Pulse Ox 96 94 Oxygen Delivery Method Nasal Cannula Nasal Cannula Oxygen Flow Rate (L/min) 3 3 3 Weight Weight: 92.8 kg Body Mass Index (BMI) 32.0 EEG Results Procedure Details EEG Procedure Details: SONIYA COOLEY is a 84 year old M with a past medical history of , who presents for evaluation of Electroencephalogram on DATE at TIME Physical Exam Narrative No focal neurological deficits. NIHSS 0. mRS 0. Lab / Micro Data 01/19/25 04:00 01/19/25 04:00 Labs: Laboratory Results - last 24 hr 01/19/25 04:00: WBC 6.3, RBC 4.31 L, Hgb 14.2, Hct 40.8, MCV 94.7 H, MCH 32.9 H,MCHC 34.8, RDW Std Deviation 46.3 H, RDW Coeff of Adrian 13.2, Plt Count 135 L, MPV10.4, Immature Gran % (Auto) 0.200, Neut % (Auto) 36.7 L, Lymph % (Auto) 48.3 H,Tensas % (Auto) 10.0, Eos % (Auto) 4.3, Baso % (Auto) 0.5, Absolute Neuts (auto) 2.3, Absolute Lymphs (auto) 3.03, Nucleated RBC % 0, PT 13.4, INR 1.0, APTT 28.5, Sodium 140, Potassium 4.1, Chloride 105, Carbon Dioxide 23.1, Anion Gap 12, BUN 25 H, Creatinine 0.91, Estim Creat Clear Calc 68.19, Est GFR (MDRD) Non-Af 84, BUN/Creatinine Ratio 27.0 H, Glucose 145 H, Calcium 9.7 01/19/25 04:40: Urine Color Yellow, Urine Clarity Clear, Urine pH 6.0, Ur Specific [place] 1.015, Urine Protein Negative, Urine Glucose (UA) Normal, UrineKetones Negative, Urine Occult Blood Negative, Urine Nitrite Negative, Urine Bilirubin Negative, Urine Urobilinogen Normal, Ur Leukocyte Esterase Negative, Urine RBC 0 SEEN, Urine WBC 0 SEEN, Ur Squamous Epith Cells 0 SEEN, Urine Bacteria 0 SEEN, Urine Mucus 0 SEEN Imaging Radiology Impression Brain CT 01/19/25 04:00 IMPRESSION: No CT evidence for acute brain abnormality. [facility] Head/Neck CTA 01/19/25 04:03 IMPRESSION: Atherosclerosis without high-grade stenosis. Reading [facility] Chest X-Ray 01/19/25 04:45 IMPRESSION: Mild bilateral basilar atelectatic pulmonary changes. [facility] Brain MRI 01/19/25 09:20 IMPRESSION: Sinus disease is visible in the floor of the right maxillary sinus. There is fluid signal in a portion of the right mastoid air cells, with mastoiditis. No acute intracranial abnormality is identified. [facility] Active Medications Active Medications Active Medications: Current Medications Generic Name Dose Route Start Last Admin Trade Name Freq PRN Reason Stop Dose Admin Acetaminophen 1,000 mg 01/19/25 07:29 Acetaminophen 500 Mg Tablet PO TID PRN fever or pain Aspirin 81 mg 01/19/25 08:00 01/19/25 10:37 Aspirin 81 Mg Tab.Chew PO 81 mg BREAKFAST PEPITO Administration Atorvastatin Calcium 80 mg 01/19/25 22:00 Atorvastatin Calcium 80 Mg Tablet PO QHS PEPITO Carbidopa/Levodopa 2 tablet 01/19/25 11:00 01/19/25 10:37 Carbidopa/Levodopa 25/100 Tablet PO 2 tablet TIDAC PEPITO Administration Enoxaparin Sodium 40 mg 01/19/25 10:00 01/19/25 10:38 Enoxaparin 40 Mg/0.4 Ml Syringe SC 40 mg DAILY PEPITO Administration Sodium Chloride 250 mls @ 15 mls/hr 01/19/25 07:44 IV .[id number] PRN Saline Flush Sodium Chloride 250 mls @ 15 mls/hr 01/19/25 07:44 IV .[id number] PRN Additional IVPB Infusion Levothyroxine Sodium 25 mcg 01/20/25 06:00 Levothyroxine 25 Mcg Tablet PO DAILY@0600 PEPITO Propranolol HCl 80 mg 01/19/25 10:00 01/19/25 10:37 Propranolol La 80 Mg Capsule PO 80 mg Q24 [facility] Administration Protocol Sodium Chloride 10 - 40 ml 01/19/25 07:44 0.9% Saline Lock 10 Ml Syringe IV UD PRN SALINE FLUSH Tamsulosin HCl 0.8 mg 01/19/25 22:00 Tamsulosin Hcl 0.4 Mg Capsule PO QHS [facility] NIHSS NIHSS Nursing Documentation NIHSS Nursing Documentation: NIHSS: Ischemic Stroke/TIA Start: 01/19/25 07:29 Text: For PCU Patients: NIH and Neuro Check every 4 Status: Active hours, PRN and with change in RN caregiver. Freq: [id number] Protocol: Activity Type Activity Date Activity User E-sign Co-sign Detail Recorded Client Recorded Date Recorded By Document 01/19/25 10:00 EM desktop 01/19/25 10:27 EM 01/19/25 10:00 NIH Stroke Scale [NIHSS] A score of 0 is normal or asymptomatic . Total possible score is 42. Inpatient: RN or Physician to activate a stroke alert for onset of new stroke symptoms or with NIHSS increase >/= 3 points. Following change in neurological status, NIHSS will be performed per physician order or more frequently PRN. -1a. Level of Consciousness 0 - Alert; keenly responsive -1b. LOC Questions 0 - Answers BOTH questions correctly -1c. LOC Commands 0 - Performs BOTH tasks correctly -2. Best Gaze 0 - Normal -3. Visual 0 - No visual loss -4. Facial Palsy 0 - Normal symmetrical movements -5a. Left Arm 0 - No drift; arm holds 90 ( or 45) degrees for full 10 seconds -5b. Right Arm 0 - No drift; arm holds 90 ( or 45) degrees for full 10 seconds -6a. Left Leg 0 - No drift; leg holds 30- degree position for full 5 seconds -6b. Right Leg 0 - No drift; leg holds 30- degree position for full 5 seconds -7. Limb Ataxia 0 - Absent -8. Sensory 0 - Normal; no sensory loss -9. Best Language 0 - No aphasia; normal -10. Dysarthria 0 - Normal -11. Extinction and Inattention 0 - No abnormality -Total 0 Query Text:A score of 0 is normal or asymptomatic. Total possible score is 42 . ED: Notify Physician for NIHSS increase by > / = 3 points. Inpatient: RN or Physician to activate a stroke alert for NIHSS increase of > / = 3 points. Coma Scale [Assess] -Eye Opening Spontaneous -Motor Obeys Commands -Verbal Oriented [Total] -Coma Scale Total 15 01/19/25 1329 <Electronically signed by Sulaiman Carrasquillo MD> Cosigner Signature (if applicable): CC: Dr. Oniel Francis MD~ Signed [facility] Work Phone: [phone]) 725-798806-17-2025 Hospital Discharge instructions Additional Instructions Follow-up as scheduled with your neurologist [facility]: [facility]: [phone] 316-872906-17-2025 Consult note [facility] Medical Records Department [address] [place] [address] Consultation - Neurology 01/19/25 1324 MR#: [id number] Acct: [id number] Name: SONIYA COOLEY Rep #:[id number] : 1940 84 From: Sulaiman Carrasquillo MD PCP: Dr. Oniel Francis MD Status:ADM DARI Location: [place] [address] Assessment and Plan: Stroke Assessment/Plan Mr Cooley presents with acute onset dysarthria and bilateral lower extremity weakness concerning for a Transient Ischemic Attack (TIA). While he did miss a dose of sinemet that evening, he has never had such pronounced dysarthria with previous missed doses so less likely symptoms d/t PD. Obtain lipid panel and hemoglobin A1c. Recommend TTE and 30 day rock duster after discharge. PT/OT eval.Load with clopidogrel 300mg now. Use aspirin 81mg and clopidogrel 75mg daily x 21 days then stop clopidogrel. Continue aspirin indefinitely. Continue home atorvastatin 80mg daily. OK to discharge after TTE from neurological standpoint. Follow up with neurology as an outpatient. Warned about signs and symptoms of a stroke. HPI Consult Data Date of Consult: 01/19/25 HPI Narrative HPI Narrative: SONIYA COOLEY, is a 84 M w/ Parkinson Disease, L carotid stenosis s/p CEA, CADs/p CABG (2019). 01/19/25 awoke in the night w/ acute BLE weakness and dysarthriax 40 min then resolved. NIHSS 0. Did miss a dose of Sinemet but never has had dysarthria like that before with prior missed doses. MRI/CTA neg. [facility] Medical History (Updated 01/19/25 @ 08:[address] Tate Mcdonough, DO) Parkinson disease Family history of malignant neoplasm of colon in mother Personal history of colonic polyps Essential tremor Aortic prosthetic valve regurgitation Deep vein thrombophlebitis of right leg Obesity Left carotid artery stenosis Prosthetic aortic valve stenosis Central sleep apnea Nonrheumatic aortic (valve) insufficiency Bicuspid aortic valve Vitamin D deficiency History of rheumatic fever Hyperlipidemia History of carotid artery disease Atherosclerosis of coronary artery of [place] heart without angina pectoris Essential hypertension Contusion of finger without damage to nail Laceration of finger of left hand without foreign body without damage to nail Hemorrhoids Shortness of breath Neck pain on left side Tingling and numbness left fingers Home Medications ?Medication ?Instructions ?Recorded ?Last Taken ?Type urduvjqa-rtc-dwojs acid 0.4 1 ea PO DAILY 05/28/16 History mg-lycopene 300 mcg-lutein 250 mcg tablet acetaminophen 500 mg tablet 1,000 mg PO TID PRN fever or pain 05/29/19 Unknown History cyanocobalamin (vitamin B-12) 500 1,000 mcg PO DAILY 1 Unknown History mcg sublingual tablet aspirin 81 mg chewable tablet 81 mg PO DAILY 12/22/19 Unknown History carbidopa 25 mg-levodopa 100 mg 2 tab PO TID 02/03/21 Unknown History tablet cholecalciferol (vitamin D3) 25 2,000 unit PO BID 09/25 Unknown History mcg (1,000 unit) tablet fluticasone propionate 50 1 spray intranasal DAILY PRN nasal 02/03/21 Unknown History mcg/actuation nasal congestion spray,suspension (Allergy Relief (fluticasone)) levothyroxine 25 mcg tablet 25 mcg PO DAILY 02/03/21 U nknown History metoprolol tartrate 50 mg tablet See Rx Instructions . Route 12/17/22 Unknown Rx .COMPLEX #180 tabs nitroglycerin 0.4 mg sublingual See Rx Instructions .R oute 02/25/23 Unknown Rx tablet .COMPLEX #25 tabs atorvastatin 80 mg tablet 80 mg PO QHS 01/19/25 Unknow n History propranolol 80 mg capsule,24 80 mg PO Q24H 01/19/25 Un known History hr,extended release tamsulosin 0.4 mg capsule 0.8 mg PO QHS 01/19/25 Unkno wn History trazodone 50 mg tablet 50 mg PO QHS 01/19/25 Unknow n History Allergy/AdvReac Type Severity Reaction Status Date / Time iodine Allergy Other Verified 01/19/25 03:56 Penicillins Allergy Hives Verified 01/19/25 03:56 Family History Mother Heart disease Colon cancer Father Diabetes Sister Heart disease Brother Heart disease Surgical History (Updated 01/19/25 @ 04:14 by Alexsandra Salas) History of single vessel coronary artery bypass History of cataract extraction History of colonoscopy (~2014) History of left heart catheterization (08/26/18) H/O coronary artery bypass surgery (10/2018) H/O aortic valve replacement (10/2018) History of left-sided carotid endarterectomy (2008) History of hernia repair History of cholecystectomy History of tonsillectomy Social History Smoking Status: Never smoker alcohol intake: current alcohol intake frequency: a few times a month Alcohol type: beer and wine substance use type: does not use caffeine: No Vital Signs Vital Signs Vital Signs: 01/19/25 03:53 01/19/25 03:57 01/19/25 04:00 Temperature 98.0 F Temperature Source Oral Pulse Rate 69 67 69 Respiratory Rate 18 18 18 Blood Pressure 152/73 H 152/73 H 137/70 H Blood Pressure Mean 99 99 92 Blood Pressure Source Blood Pressure Position Blood Pressure Location Pulse Ox 93 93 92 Oxygen Delivery Method Room Air Room Air Oxygen Flow Rate (L/min) 01/19/25 04:10 01/19/25 04:30 01/19/25 05:00 Temperature Temperature Source Pulse Rate 68 66 Respiratory Rate 18 18 Blood Pressure 154/84 H 135/83 H Blood Pressure Mean 107 100 Blood Pressure Source Blood Pressure Position Blood Pressure Location Pulse Ox 93 92 92 Oxygen Delivery Method Room Air Room Air Room Air Oxygen Flow Rate (L/min) 01/19/25 05:30 01/19/25 06:00 01/19/25 06:22 Temperature 98.2 F Temperature Source Pulse Rate 65 63 64 Respiratory Rate 18 18 18 Blood Pressure 157/92 H 141/75 H 139/59 H Blood Pressure Mean 113 97 85 Blood Pressure Source Blood Pressure Position Blood Pressure Location Pulse Ox 93 92 93 Oxygen Delivery Method Room Air Room Air Oxygen Flow Rate (L/min) 01/19/25 06:30 01/19/25 06:45 01/19/25 08:07 Temperature 97.7 F L Temperature Source Oral Pulse Rate 60 65 Respiratory Rate 18 18 Blood Pressure 127/98 H 116/78 Blood Pressure Mean 107 90 Blood Pressure Source Monitor Blood Pressure Position Semi-Fowlers Blood Pressure Location Left Arm Pulse Ox 86 94 95 Oxygen Delivery Method Room Air Nasal Cannula Nasal Cannula Oxygen Flow Rate (L/min) 1 2 01/19/25 10:00 01/19/25 10:45 01/19/25 12:51 Temperature 97.4 F L Temperature Source Oral Pulse Rate 59 L Respiratory Rate 17 Blood Pressure 131/78 H Blood Pressure Mean 95 Blood Pressure Source Monitor Blood Pressure Position Semi-Fowlers Blood Pressure Location Left Arm Pulse Ox 96 94 Oxygen Delivery Method Nasal Cannula Nasal Cannula Oxygen Flow Rate (L/min) 3 3 3 Weight Weight: 92.8 kg Body Mass Index (BMI) 32.0 EEG Results Procedure Details EEG Procedure Details: SONIYA COOLEY is a 84 year old M with a past medical history of , who presents for evaluation of Electroencephalogram on DATE at TIME Physical Exam Narrative No focal neurological deficits. NIHSS 0. mRS 0. Lab / Micro Data 01/19/25 04:00 01/19/25 04:00 Labs: Laboratory Results - last 24 hr 01/19/25 04:00: WBC 6.3, RBC 4.31 L, Hgb 14.2, Hct 40.8, MCV 94.7 H, MCH 32.9 H,MCHC 34.8, RDW Std Deviation 46.3 H, RDW Coeff of Adrian 13.2, Plt Count 135 L, MPV10.4, Immature Gran % (Auto) 0.200, Neut % (Auto) 36.7 L, Lymph % (Auto) 48.3 H,Tensas % (Auto) 10.0, Eos % (Auto) 4.3, Baso % (Auto) 0.5, Absolute Neuts (auto) 2.3, Absolute Lymphs (auto) 3.03, Nucleated RBC % 0, PT 13.4, INR 1.0, APTT 28.5, Sodium 140, Potassium 4.1, Chloride 105, Carbon Dioxide 23.1, Anion Gap 12, BUN 25 H, Creatinine 0.91, Estim Creat Clear Calc 68.19, Est GFR (MDRD) Non-Af 84, BUN/Creatinine Ratio 27.0 H, Glucose 145 H, Calcium 9.7 01/19/25 04:40: Urine Color Yellow, Urine Clarity Clear, Urine pH 6.0, Ur Specific [place] 1.015, Urine Protein Negative, Urine Glucose (UA) Normal, UrineKetones Negative, Urine Occult Blood Negative, Urine Nitrite Negative, Urine Bilirubin Negative, Urine Urobilinogen Normal, Ur Leukocyte Esterase Negative, Urine RBC 0 SEEN, Urine WBC 0 SEEN, Ur Squamous Epith Cells 0 SEEN, Urine Bacteria 0 SEEN, Urine Mucus 0 SEEN Imaging Radiology Impression Brain CT 01/19/25 04:00 IMPRESSION: No CT evidence for acute brain abnormality. Reading Location: [place] [address] Head/Neck CTA 01/19/25 04:03 IMPRESSION: Atherosclerosis without high-grade stenosis. Reading Location: [place] [address] Chest X-Ray 01/19/25 04:45 IMPRESSION: Mild bilateral basilar atelectatic pulmonary changes. Reading Location: [place] [address] Brain MRI 01/19/25 09:20 IMPRESSION: Sinus disease is visible in the floor of the right maxillary sinus. There is fluid signal in a portion of the right mastoid air cells, with mastoiditis. No acute intracranial abnormality is identified. Reading Location: [facility] Active Medications Active Medications Active Medications: Current Medications Generic Name Dose Route Start Last Admin Trade Name Freq PRN Reason Stop Dose Admin Acetaminophen 1,000 mg 01/19/25 07:29 Acetaminophen 500 Mg Tablet PO TID PRN fever or pain Aspirin 81 mg 01/19/25 08:00 01/19/25 10:37 Aspirin 81 Mg Tab.Chew PO 81 mg BREAKFAST PEPITO Administration Atorvastatin Calcium 80 mg 01/19/25 22:00 Atorvastatin Calcium 80 Mg Tablet PO QHS PEPITO Carbidopa/Levodopa 2 tablet 01/19/25 11:00 01/19/25 10:37 Carbidopa/Levodopa 25/100 Tablet PO 2 tablet TIDAC PEPITO Administration Enoxaparin Sodium 40 mg 01/19/25 10:00 01/19/25 10:38 Enoxaparin 40 Mg/0.4 Ml Syringe SC 40 mg DAILY PEPITO Administration Sodium Chloride 250 mls @ 15 mls/hr 01/19/25 07:44 IV .[id number] PRN Saline Flush Sodium Chloride 250 mls @ 15 mls/hr 01/19/25 07:44 IV .[id number] PRN Additional IVPB Infusion Levothyroxine Sodium 25 mcg 01/20/25 06:00 Levothyroxine 25 Mcg Tablet PO DAILY@0600 [facility] Propranolol HCl 80 mg 01/19/25 10:00 01/19/25 10:37 Propranolol La 80 Mg Capsule PO 80 mg Q24 PEPITO Administration Protocol Sodium Chloride 10 - 40 ml 01/19/25 07:44 0.9% Saline Lock 10 Ml Syringe IV UD PRN SALINE FLUSH Tamsulosin HCl 0.8 mg 01/19/25 22:00 Tamsulosin Hcl 0.4 Mg Capsule PO QHS [facility] NIHSS NIHSS Nursing Documentation NIHSS Nursing Documentation: NIHSS: Ischemic Stroke/TIA Start: 01/19/25 07:29 Text: For PCU Patients: NIH and Neuro Check every 4 Status: Active hours, PRN and with change in RN caregiver. Freq: [id number] Protocol: Activity Type Activity Date Activity User E-sign Co-sign Detail Recorded Client Recorded Date Recorded By Document 01/19/25 10:00 EM desktop 01/19/25 10:27 EM 01/19/25 10:00 NIH Stroke Scale [NIHSS] A score of 0 is normal or asymptomatic . Total possible score is 42. Inpatient: RN or Physician to activate a stroke alert for onset of new stroke symptoms or with NIHSS increase >/= 3 points. Following change in neurological status, NIHSS will be performed per physician order or more frequently PRN. -1a. Level of Consciousness 0 - Alert; keenly responsive -1b. LOC Questions 0 - Answers BOTH questions correctly -1c. LOC Commands 0 - Performs BOTH tasks correctly -2. Best Gaze 0 - Normal -3. Visual 0 - No visual loss -4. Facial Palsy 0 - Normal symmetrical movements -5a. Left Arm 0 - No drift; arm holds 90 ( or 45) degrees for full 10 seconds -5b. Right Arm 0 - No drift; arm holds 90 ( or 45) degrees for full 10 seconds -6a. Left Leg 0 - No drift; leg holds 30- degree position for full 5 seconds -6b. Right Leg 0 - No drift; leg holds 30- degree position for full 5 seconds -7. Limb Ataxia 0 - Absent -8. Sensory 0 - Normal; no sensory loss -9. Best Language 0 - No aphasia; normal -10. Dysarthria 0 - Normal -11. Extinction and Inattention 0 - No abnormality -Total 0 Query Text:A score of 0 is normal or asymptomatic. Total possible score is 42 . ED: Notify Physician for NIHSS increase by > / = 3 points. Inpatient: RN or Physician to activate a stroke alert for NIHSS increase of > / = 3 points. Coma Scale [Assess] -Eye Opening Spontaneous -Motor Obeys Commands -Verbal Oriented [Total] -Coma Scale Total 15 01/19/25 1329 Cosigner Signature (if applicable): CC: Dr. Oniel Francis MD~ Signed [facility]06-17-2025 Discharge summary Author Tate Mcdonough [facility] Note Date/Time January 19, 2025 8:06 am [facility] Medical Records Department [address] [place] [address] Emergency Department Summary 01/19/25 MR#: [id number] Acct: [id number] Name: SONIYA COOLEY Rep #:[id number] : 1940 84 From: Tate Mcdonough DO PCP: Dr. Oniel Francis MD Status:ADM DARI Location: [place] [address] HPI History of Present Illness Chief Complaint: Neuro S/Sx Informant: patient and spouse/S.O. Narrative Narrative: Patient is an 84-year-old male with past medical history of Parkinson's disease hypertension hyperlipidemia and coronary artery disease. Patient and statethat he awoke this morning to use the restroom but was so weak that he could notstand and she noticed that during this time he was also slurring his speech. She states that he went to bed approximate 11 PM and that was his last known well. With concern for an acute stroke he was brought in for evaluation. [facility] Medical History (Updated 01/19/25 @ 08:[address] Tate Mcdonough DO) Parkinson disease Family history of malignant neoplasm of colon in mother Personal history of colonic polyps Essential tremor Aortic prosthetic valve regurgitation Deep vein thrombophlebitis of right leg Obesity Left carotid artery stenosis Prosthetic aortic valve stenosis Central sleep apnea Nonrheumatic aortic (valve) insufficiency Bicuspid aortic valve Vitamin D deficiency History of rheumatic fever Hyperlipidemia History of carotid artery disease Atherosclerosis of coronary artery of [place] heart without angina pectoris Essential hypertension Contusion of finger without damage to nail Laceration of finger of left hand without foreign body without damage to nail Hemorrhoids Shortness of breath Neck pain on left side Tingling and numbness left fingers Home Medications ?Medication ?Instructions ?Recorded ?Last Taken ?Type zxabnwuw-jev-fjjyx acid 0.4 1 ea PO DAILY 05/28/16 History mg-lycopene 300 mcg-lutein 250 mcg tablet acetaminophen 500 mg tablet 1,000 mg PO TID PRN fever or pain 05/29/19 Unknown History cyanocobalamin (vitamin B-12) 500 1,000 mcg PO DAILY 1 Unknown History mcg sublingual tablet aspirin 81 mg chewable tablet 81 mg PO DAILY 12/22/19 Unknown History carbidopa 25 mg-levodopa 100 mg 2 tab PO TID 02/03/21 Unknown History tablet cholecalciferol (vitamin D3) 25 2,000 unit PO BID 09/25 Unknown History mcg (1,000 unit) tablet fluticasone propionate 50 1 spray intranasal DAILY PRN nasal 02/03/21 Unknown History mcg/actuation nasal congestion spray,suspension (Allergy Relief (fluticasone)) levothyroxine 25 mcg tablet 25 mcg PO DAILY 02/03/21 U nknown History metoprolol tartrate 50 mg tablet See Rx Instructions . Route 12/17/22 Unknown Rx .COMPLEX #180 tabs nitroglycerin 0.4 mg sublingual See Rx Instructions .R oute 02/25/23 Unknown Rx tablet .COMPLEX #25 tabs atorvastatin 80 mg tablet 80 mg PO QHS 01/19/25 Unknow n History propranolol 80 mg capsule,24 80 mg PO Q24H 01/19/25 Un known History hr,extended release tamsulosin 0.4 mg capsule 0.8 mg PO QHS 01/19/25 Unkno wn History trazodone 50 mg tablet 50 mg PO QHS 01/19/25 Unknow n History Allergy/AdvReac Type Severity Reaction Status Date / Time iodine Allergy Other Verified 01/19/25 03:56 Penicillins Allergy Hives Verified 01/19/25 03:56 Family History Mother Heart disease Colon cancer Father Diabetes Sister Heart disease Brother Heart disease Surgical History (Updated 01/19/25 @ 04:14 by Alexsandra Salas) History of single vessel coronary artery bypass History of cataract extraction History of colonoscopy (~2014) History of left heart catheterization (08/26/18) H/O coronary artery bypass surgery (10/2018) H/O aortic valve replacement (10/2018) History of left-sided carotid endarterectomy (2008) History of hernia repair History of cholecystectomy History of tonsillectomy Social History Smoking Status: Never smoker alcohol intake: current alcohol intake frequency: a few times a month Alcohol type: beer and wine substance use type: does not use caffeine: No ROS ROS ED Constitutional Constitutional ED: Denies chills or fever(s) Eyes Eyes: Denies blurry vision or change in vision ENT ENT ED: Denies sore throat Cardiovascular Cardiovascular: Denies chest pain, palpitations or racing heartbeat Respiratory/Chest Respiratory/Chest: Denies cough or dyspnea Gastrointestinal Gastrointestinal: Denies abdominal pain, diarrhea, nausea or vomiting Genitourinary Genitourinary ED: Denies dysuria Musculoskeletal Musculoskeletal: Denies myalgias Integumentary Denies rash Neurologic Neurologic: Reports weakness; Denies headache(s) Hematologic/Lymphatic Hematologic/Lymphatic: Denies easy bleeding or easy bruising EXAM Physical Exam Const Vital Signs: 01/19/25 03:53 01/19/25 03:57 01/19/25 04:00 Temperature 98.0 F Temperature Source Oral Pulse Rate 69 67 69 Respiratory Rate 18 18 18 Blood Pressure 152/73 H 152/73 H 137/70 H Blood Pressure Mean 99 99 92 Pulse Ox 93 93 92 Oxygen Delivery Method Room Air Room Air 01/19/25 04:10 01/19/25 04:30 01/19/25 05:00 Temperature Temperature Source Pulse Rate 68 66 Respiratory Rate 18 18 Blood Pressure 154/84 H 135/83 H Blood Pressure Mean 107 100 Pulse Ox 93 92 92 Oxygen Delivery Method Room Air Room Air Room Air 01/19/25 05:30 01/19/25 06:00 Temperature Temperature Source Pulse Rate 65 63 Respiratory Rate 18 18 Blood Pressure 157/92 H 141/75 H Blood Pressure Mean 113 97 Pulse Ox 93 92 Oxygen Delivery Method Room Air Room Air Positive well nourished and well developed General Appearance ED: well developed; Negative for pallor HEENT HEENT Narrative: Normocephalic atraumatic Eyes PERRL and EOMs intact bilaterally Neck supple Neck Narrative: No nuchal rigidity or meningeal signs Resp normal respiratory effort and clear to auscultation bilaterally Cardio regular rate and regular rhythm Rate: other Other Details: Radial and carotid pulses are equal and symmetric GI normal to inspection, nondistended, normoactive bowel sounds, non-tender, non-distended and no masses GI Narrative: No voluntary guarding or rigidity or pulsatile mass Auscultation: normoactive bowel sounds Palpation: soft Extremity normal to inspection Extremity Narrative: No asymmetric edema no pitting edema negative Homans' sign bilaterally Neuro oriented x3, CN's II-XII intact bilaterally and no sensory deficits noted Neuro Narrative: GCS of 15 Cranial nerves II through XII are grossly intact without focal neurologic deficit No pronator drift no dysmetria no truncal ataxia NIH stroke scale score of 0 Sensorium / Orientation: alert Motor Exam: general weakness Psych mental status grossly normal Skin no rashes or lesions noted and no wounds General Skin Exam: Negative for jaundice or pallor MDM MDM MDM Narrative Medical decision making narrative: Patient arrived to the ER with stable vitals and by the time he had arrived [facility] had improvement of his symptoms. As the patient's last known well was 11 PM and is now 4 AM he is outside any type of stroke window and therefore there is no need for TNK. Moreover his symptoms are spontaneously improving. Howeveras patient could have an LVO and further intervention be needed a stroke alert was activated upon his arrival and he received a CT and CTA of the head and neck. Imaging studies revealed no acute finding. The case was discussed with [facility] neurologist Dr. Rosales who agrees that patient is outside the window for TNK he has had spontaneous resolution/improvement of his symptoms and therefore there is no need for intervention at this time. He recommends checking for potential metabolic causes of his weakness and having an MRI performed to confirm no acute stroke. Patient and family were instructed of this plan and they are agreeable to the care at this time. The patient's labs show no leukocytosis signs of acute kidney injury or clinically significant electrolyte abnormality to suggest this as the cause of his symptoms. Urine sample shows nosign of infection and chest x-ray reveals no acute lung pathology. [facility] recommends patient receive a full-strength aspirin based on his symptoms that appear most consistent with potential TIA. Therefore in order to complete the stroke workup he will be admitted to the hospital for continued observation and care History & Record Review Discussion w/independent historian: Patient and Significant other Lab Data Attestation: I reviewed the patient's lab results. Labs: Laboratory Results - last 24 hr 01/19/25 01/19/25 04:00 04:40 WBC 6.3 RBC 4.31 L Hgb 14.2 Hct 40.8 MCV 94.7 H MCH 32.9 H MCHC 34.8 RDW Std Deviation 46.3 H RDW Coeff of Adrian 13.2 Plt Count 135 L MPV 10.4 Immature Gran % (Auto) 0.200 Neut % (Auto) 36.7 L Lymph % (Auto) 48.3 H Tensas % (Auto) 10.0 Eos % (Auto) 4.3 Baso % (Auto) 0.5 Absolute Neuts (auto) 2.3 Absolute Lymphs (auto) 3.03 Nucleated RBC % 0 PT 13.4 INR 1.0 APTT 28.5 Sodium 140 Potassium 4.1 Chloride 105 Carbon Dioxide 23.1 Anion Gap 12 BUN 25 H Creatinine 0.91 Estim Creat Clear Calc 68.19 Est GFR (MDRD) Non-Af 84 BUN/Creatinine Ratio 27.0 H Glucose 145 H Calcium 9.7 Urine Color Yellow Urine Clarity Clear Urine pH 6.0 Ur Specific [place] 1.015 Urine Protein Negative Urine Glucose (UA) Normal Urine Ketones Negative Urine Occult Blood Negative Urine Nitrite Negative Urine Bilirubin Negative Urine Urobilinogen Normal Ur Leukocyte Esterase Negative Urine RBC 0 SEEN Urine WBC 0 SEEN Ur Squamous Epith Cells 0 SEEN Urine Bacteria 0 SEEN Urine Mucus 0 SEEN Radiography Diagnostic Testing: Clinical Impression(s) from Imaging Studies Brain CT 01/19/25 04:00 IMPRESSION: No CT evidence for acute brain abnormality. Reading Location: [facility] [place] [address] Head/Neck CTA 01/19/25 04:03 IMPRESSION: Atherosclerosis without high-grade stenosis. Reading Location: [place] [address] Chest X-Ray 01/19/25 04:45 IMPRESSION: Mild bilateral basilar atelectatic pulmonary changes. Reading Location: [place] [address] Chest x-ray as interpreted by the emergency medicine physician reveals bibasilaratelectasis without acute infiltrate or pneumothorax Management Discussion w/another healthcare provider: Hospitalist and [employer] Discharge Plan Dx/Rx/DC Orders Clinical Impression: Stroke-like symptoms, Essential hypertension, Hyperlipidemia, Parkinson's disease Disposition Disposition: Acute Care Hospital [facility] Discharge Date/Time: 01/19/25 07:02 What to do if you have Problems For any increased pain, shortness of breath, bleeding, nausea or vomiting, chestpain, or any unexpected problems, contact your Primary Care Provider. Call [facility] [employer] [facility] ([phone]) or report to the closest Emergency Room. Call 911 if necessary. 01/19/25 0806 <Electronically signed by Tate Mcdonough DO> Cosigner Signature (if applicable): CC: Dr. Oniel Francis MD ~ Signed [facility] Work Phone: 1(168) 256-498106-17-2025 Evaluation note* Diagnosis Onset Date Resolution Status Admit Date Parkinson's disease acute January 19, 2025 6:07am Stroke-like symptoms acute January 19, 2025 6:07am Essential hypertension chronic Ju ne 2024 6:07am H/O aortic valve replacement October, chroni c January 19, 2025 6:07am Hyperlipidemia chronic January 19, 2025 6:07am H/O coronary artery bypass surgery October, resolved January 19, 2025 6:07am [facility] Work Phone: 1(677) 902-391106-17-2025 History and physical note Author Mik Kilgore [facility] Note Date/Time January 19, 2025 6:07 am [facility] Medical Records Department [address] [place] [address] History & Physical Exam 01/19/25 0558 MR#: [id number] Acct: [id number] Name: SONIYA COOLEY Rep #:[id number] : 1940 84 From: Mik Kilgore MD PCP: Dr. Oniel Francis MD Status:REG ER Location: ED HPI - General General Date of Admission: 01/19/25 Date of Service: 01/19/25 Chief Complaint: Leg weakness and slurring of speech HPI Narrative SONIYA COOLEY, is a 84 M who presents to the emergency room with chief complaint of lower extremity weakness and slurring of speech. Onset of symptomsbegan approximately 11:00 earlier this evening when he awoke to use the restroomand found himself to be weak in both lower extremities. His spouse noticed he was slurring his speech for approximately 15 minutes and then that subsequently resolved. Patient has significant past medical history of carotid artery disease, coronary artery bypass surgery in 2019, status post aortic valve replacement, and hypertension. Patient arrived in the emergency room by personal vehicle with the spouse several hours later as symptoms seem to have resolved. 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 Laboratory studies were unremarkable. And urinalysis was negative. There is a fact that all neurologic symptoms have resolved at this point patient will be admitted for observation and an MRI of the head will be ordered to rule out active neurologic process. Patient currently denies chest pain, shortness of breath, fever or chills and/or nausea vomiting or diarrhea. [facility] Medical History (Updated 01/19/25 @ 05:[address] Tate Mcdonough, ) Parkinson disease Family history of malignant neoplasm of colon in mother Personal history of colonic polyps Essential tremor Aortic prosthetic valve regurgitation Deep vein thrombophlebitis of right leg Obesity Left carotid artery stenosis Prosthetic aortic valve stenosis Central sleep apnea Nonrheumatic aortic (valve) insufficiency Bicuspid aortic valve Vitamin D deficiency History of rheumatic fever Hyperlipidemia History of carotid artery disease Atherosclerosis of coronary artery of [place] heart without angina pectoris Essential hypertension Contusion of finger without damage to nail Laceration of finger of left hand without foreign body without damage to nail Hemorrhoids Shortness of breath Neck pain on left side Tingling and numbness left fingers Home Medications ?Medication ?Instructions ?Recorded ?Last Taken ?Type zozlzpkh-poz-gdnrn acid 0.4 1 ea PO DAILY 05/28/16 History mg-lycopene 300 mcg-lutein 250 mcg tablet acetaminophen 500 mg tablet 1,000 mg PO TID PRN fever or pain 05/29/19 Unknown History cyanocobalamin (vitamin B-12) 500 1,000 mcg PO DAILY 1 Unknown History mcg sublingual tablet aspirin 81 mg chewable tablet 81 mg PO DAILY 12/22/19 Unknown History carbidopa 25 mg-levodopa 100 mg 2 tab PO TID 02/03/21 Unknown History tablet cholecalciferol (vitamin D3) 25 2,000 unit PO BID 09/25 Unknown History mcg (1,000 unit) tablet fluticasone propionate 50 1 spray intranasal DAILY PRN nasal 02/03/21 Unknown History mcg/actuation nasal congestion spray,suspension (Allergy Relief (fluticasone)) levothyroxine 25 mcg tablet 25 mcg PO DAILY 02/03/21 U nknown History metoprolol tartrate 50 mg tablet See Rx Instructions . Route 12/17/22 Unknown Rx .COMPLEX #180 tabs nitroglycerin 0.4 mg sublingual See Rx Instructions .R oute 02/25/23 Unknown Rx tablet .COMPLEX #25 tabs atorvastatin 80 mg tablet 80 mg PO QHS 01/19/25 Unknow n History propranolol 80 mg capsule,24 80 mg PO Q24H 01/19/25 Un known History hr,extended release tamsulosin 0.4 mg capsule 0.8 mg PO QHS 01/19/25 Unkno wn History trazodone 50 mg tablet 50 mg PO QHS 01/19/25 Unknow n History Allergy/AdvReac Type Severity Reaction Status Date / Time iodine Allergy Other Verified 01/19/25 03:56 Penicillins Allergy Hives Verified 01/19/25 03:56 Family History Mother Heart disease Colon cancer Father Diabetes Sister Heart disease Brother Heart disease Surgical History (Updated 01/19/25 @ 04:14 by Alexsandra Salas) History of single vessel coronary artery bypass History of cataract extraction History of colonoscopy (~2014) History of left heart catheterization (08/26/18) H/O coronary artery bypass surgery (10/2018) H/O aortic valve replacement (10/2018) History of left-sided carotid endarterectomy (2008) History of hernia repair History of cholecystectomy History of tonsillectomy Social History Smoking Status: Never smoker alcohol intake: current alcohol intake frequency: a few times a month Alcohol type: beer and wine substance use type: does not use caffeine: No ROS Constitutional Constitutional: Denies chills or fever(s) Eyes Eyes: Denies blurry vision ENT HEENT: Denies abnormal hearing Cardiovascular Cardiovascular: Denies chest pain Respiratory/Chest Respiratory/Chest: Denies shortness of breath at rest Gastrointestinal Gastrointestinal: Denies abdominal pain Genitourinary Genitourinary: Denies dysuria Musculoskeletal Musculoskeletal: Denies back pain Integumentary Integumentary: Denies dry skin Neurologic Neurologic: Reports abnormal speech and focal weakness Psychiatric Psychiatric: Denies anxiety Endocrine Endocrinology: Denies change in body appearance Vital Signs Vital Signs Vital Signs: 01/19/25 03:53 01/19/25 03:57 01/19/25 04:00 Temperature 98.0 F Temperature Source Oral Pulse Rate 69 67 69 Respiratory Rate 18 18 18 Blood Pressure 152/73 H 152/73 H 137/70 H Blood Pressure Mean 99 99 92 Pulse Ox 93 93 92 Oxygen Delivery Method Room Air Room Air 01/19/25 04:10 01/19/25 04:30 01/19/25 05:00 Temperature Temperature Source Pulse Rate 68 66 Respiratory Rate 18 18 Blood Pressure 154/84 H 135/83 H Blood Pressure Mean 107 100 Pulse Ox 93 92 92 Oxygen Delivery Method Room Air Room Air Room Air Weight Weight: 213 lb 6.519 oz Body Mass Index (BMI) 33.4 Physical Exam Const alert, oriented x3 and no apparent distress General Appearance: cooperative and well developed HEENT normocephalic and head/scalp atraumatic Neck no lymphadenopathy Lymph Lymphatic: no lymphadenopathy noted Resp normal respiratory effort, normal air movement and clear to auscultation bilaterally Cardio regular rate, regular rhythm, S1 normal heart sound and S2 normal heart sound GI normal to inspection, nondistended, normoactive bowel sounds Extremity normal capillary refill General Extremity: no tenderness to palpation of joints or extremities Skin General Skin Exam: no breakdown Neuro CN's II-XII intact bilaterally, no focal motor deficits and no sensory deficits noted Speech: speech normal Motor Exam: strength 5/5 throughout Psych thought process normal, cooperative and affect normal Results Lab / Micro Data 01/19/25 04:00 01/19/25 04:00 Labs: Laboratory Results - last 24 hr 01/19/25 04:00: WBC 6.3, RBC 4.31 L, Hgb 14.2, Hct 40.8, MCV 94.7 H, MCH 32.9 H,MCHC 34.8, RDW Std Deviation 46.3 H, RDW Coeff of Adrian 13.2, Plt Count 135 L, MPV10.4, Immature Gran % (Auto) 0.200, Neut % (Auto) 36.7 L, Lymph % (Auto) 48.3 H,Tensas % (Auto) 10.0, Eos % (Auto) 4.3, Baso % (Auto) 0.5, Absolute Neuts (auto) 2.3, Absolute Lymphs (auto) 3.03, Nucleated RBC % 0, PT 13.4, INR 1.0, APTT 28.5, Sodium 140, Potassium 4.1, Chloride 105, Carbon Dioxide 23.1, Anion Gap 12, BUN 25 H, Creatinine 0.91, Estim Creat Clear Calc 68.19, Est GFR (MDRD) Non-Af 84, BUN/Creatinine Ratio 27.0 H, Glucose 145 H, Calcium 9.7 01/19/25 04:40: Urine Color Yellow, Urine Clarity Clear, Urine pH 6.0, Ur Specific [place] 1.015, Urine Protein Negative, Urine Glucose (UA) Normal, UrineKetones Negative, Urine Occult Blood Negative, Urine Nitrite Negative, Urine Bilirubin Negative, Urine Urobilinogen Normal, Ur Leukocyte Esterase Negative, Urine RBC 0 SEEN, Urine WBC 0 SEEN, Ur Squamous Epith Cells 0 SEEN, Urine Bacteria 0 SEEN, Urine Mucus 0 SEEN Imaging Radiology Impression Brain CT 01/19/25 04:00 IMPRESSION: No CT evidence for acute brain abnormality. Reading Location: [place] [address] Head/Neck CTA 01/19/25 04:03 IMPRESSION: Atherosclerosis without high-grade stenosis. Reading Location: [place] [address] Chest X-Ray 01/19/25 04:45 IMPRESSION: Mild bilateral basilar atelectatic pulmonary changes. Reading Location: [place] [address] Assessment & Plan Assessment/Plan (1) H/O coronary artery bypass surgery: (2) H/O aortic valve replacement: (3) Essential hypertension: (4) Hyperlipidemia: (5) Stroke-like symptoms: PLAN: Plan 1 strokelike symptoms that have resolved consistent with transient ischemic attack?admit patient to progressive care unit for observation, initiate neurologic assessments every 4 hours, continue aspirin therapy and order MRI of the brain. CT angiogram was performed and patient does have some level of disease that we will need to be followed by vascular surgery post discharge. 2. Hyperlipidemia?continue statin medication 3. Hypertension?continue routine home medications will add as needed antihypertensive therapy per protocol 4. DVT prophylaxis?low molecular weight heparin Charges/Coding Visit Charges OBSV E&M: 38447 Observ/hosp same date L2 01/19/25 0607 <Electronically signed by Mik Kilgore MD> Cosigner Signature (if applicable): CC: Dr. Oniel Francis MD; Dr. Mik Kilgore MD~ Signed [facility] Work Phone: [phone]) 595-373106-17-2025 Discharge summary [facility] Medical Records Department [address] [place] [address] Emergency Department Summary 01/19/25 MR#: [id number] Acct: [id number] Name: SONIYA COOLEY Rep #:[id number] : 1940 84 From: Tate Mcdonough DO PCP: Dr. Oniel Francis MD Status:ADM DARI Location: [place] [address] HPI History of Present Illness Chief Complaint: Neuro S/Sx Informant: patient and spouse/S.O. Narrative Narrative: Patient is an 84-year-old male with past medical history of Parkinson's disease hypertension hyperlipidemia and coronary artery disease. Patient and statethat he awoke this morning to use the restroom but was so weak that he could notstand and she noticed that during this time he was also slurring his speech. She states that he went to bed approximate 11 PM and that was his last known well. With concern for an acute stroke he was brought in for evaluation. [facility] Medical History (Updated 01/19/25 @ 08:[address] Tate Mcdonough DO) Parkinson disease Family history of malignant neoplasm of colon in mother Personal history of colonic polyps Essential tremor Aortic prosthetic valve regurgitation Deep vein thrombophlebitis of right leg Obesity Left carotid artery stenosis Prosthetic aortic valve stenosis Central sleep apnea Nonrheumatic aortic (valve) insufficiency Bicuspid aortic valve Vitamin D deficiency History of rheumatic fever Hyperlipidemia History of carotid artery disease Atherosclerosis of coronary artery of [place] heart without angina pectoris Essential hypertension Contusion of finger without damage to nail Laceration of finger of left hand without foreign body without damage to nail Hemorrhoids Shortness of breath Neck pain on left side Tingling and numbness left fingers Home Medications ?Medication ?Instructions ?Recorded ?Last Taken ?Type esoowfkj-oar-hiqeg acid 0.4 1 ea PO DAILY 05/28/16 History mg-lycopene 300 mcg-lutein 250 mcg tablet acetaminophen 500 mg tablet 1,000 mg PO TID PRN fever or pain 05/29/19 Unknown History cyanocobalamin (vitamin B-12) 500 1,000 mcg PO DAILY 1 Unknown History mcg sublingual tablet aspirin 81 mg chewable tablet 81 mg PO DAILY 12/22/19 Unknown History carbidopa 25 mg-levodopa 100 mg 2 tab PO TID 02/03/21 Unknown History tablet cholecalciferol (vitamin D3) 25 2,000 unit PO BID 09/25 Unknown History mcg (1,000 unit) tablet fluticasone propionate 50 1 spray intranasal DAILY PRN nasal 02/03/21 Unknown History mcg/actuation nasal congestion spray,suspension (Allergy Relief (fluticasone)) levothyroxine 25 mcg tablet 25 mcg PO DAILY 02/03/21 U nknown History metoprolol tartrate 50 mg tablet See Rx Instructions . Route 12/17/22 Unknown Rx .COMPLEX #180 tabs nitroglycerin 0.4 mg sublingual See Rx Instructions .R oute 02/25/23 Unknown Rx tablet .COMPLEX #25 tabs atorvastatin 80 mg tablet 80 mg PO QHS 01/19/25 Unknow n History propranolol 80 mg capsule,24 80 mg PO Q24H 01/19/25 Un known History hr,extended release tamsulosin 0.4 mg capsule 0.8 mg PO QHS 01/19/25 Unkno wn History trazodone 50 mg tablet 50 mg PO QHS 01/19/25 Unknow n History Allergy/AdvReac Type Severity Reaction Status Date / Time iodine Allergy Other Verified 01/19/25 03:56 Penicillins Allergy Hives Verified 01/19/25 03:56 Family History Mother Heart disease Colon cancer Father Diabetes Sister Heart disease Brother Heart disease Surgical History (Updated 01/19/25 @ 04:14 by Alexsandra Salas) History of single vessel coronary artery bypass History of cataract extraction History of colonoscopy (~2014) History of left heart catheterization (08/26/18) H/O coronary artery bypass surgery (10/2018) H/O aortic valve replacement (10/2018) History of left-sided carotid endarterectomy (2008) History of hernia repair History of cholecystectomy History of tonsillectomy Social History Smoking Status: Never smoker alcohol intake: current alcohol intake frequency: a few times a month Alcohol type: beer and wine substance use type: does not use caffeine: No ROS ROS ED Constitutional Constitutional ED: Denies chills or fever(s) Eyes Eyes: Denies blurry vision or change in vision ENT ENT ED: Denies sore throat Cardiovascular Cardiovascular: Denies chest pain, palpitations or racing heartbeat Respiratory/Chest Respiratory/Chest: Denies cough or dyspnea Gastrointestinal Gastrointestinal: Denies abdominal pain, diarrhea, nausea or vomiting Genitourinary Genitourinary ED: Denies dysuria Musculoskeletal Musculoskeletal: Denies myalgias Integumentary Denies rash Neurologic Neurologic: Reports weakness; Denies headache(s) Hematologic/Lymphatic Hematologic/Lymphatic: Denies easy bleeding or easy bruising EXAM Physical Exam Const Vital Signs: 01/19/25 03:53 01/19/25 03:57 01/19/25 04:00 Temperature 98.0 F Temperature Source Oral Pulse Rate 69 67 69 Respiratory Rate 18 18 18 Blood Pressure 152/73 H 152/73 H 137/70 H Blood Pressure Mean 99 99 92 Pulse Ox 93 93 92 Oxygen Delivery Method Room Air Room Air 01/19/25 04:10 01/19/25 04:30 01/19/25 05:00 Temperature Temperature Source Pulse Rate 68 66 Respiratory Rate 18 18 Blood Pressure 154/84 H 135/83 H Blood Pressure Mean 107 100 Pulse Ox 93 92 92 Oxygen Delivery Method Room Air Room Air Room Air 01/19/25 05:30 01/19/25 06:00 Temperature Temperature Source Pulse Rate 65 63 Respiratory Rate 18 18 Blood Pressure 157/92 H 141/75 H Blood Pressure Mean 113 97 Pulse Ox 93 92 Oxygen Delivery Method Room Air Room Air Positive well nourished and well developed General Appearance ED: well developed; Negative for pallor HEENT HEENT Narrative: Normocephalic atraumatic Eyes PERRL and EOMs intact bilaterally Neck supple Neck Narrative: No nuchal rigidity or meningeal signs Resp normal respiratory effort and clear to auscultation bilaterally Cardio regular rate and regular rhythm Rate: other Other Details: Radial and carotid pulses are equal and symmetric GI normal to inspection, nondistended, normoactive bowel sounds, non-tender, non- distended and no masses GI Narrative: No voluntary guarding or rigidity or pulsatile mass Auscultation: normoactive bowel sounds Palpation: soft Extremity normal to inspection Extremity Narrative: No asymmetric edema no pitting edema negative Homans' sign bilaterally Neuro oriented x3, CN's II-XII intact bilaterally and no sensory deficits noted Neuro Narrative: GCS of 15 Cranial nerves II through XII are grossly intact without focal neurologic deficit No pronator drift no dysmetria no truncal ataxia NIH stroke scale score of 0 Sensorium / Orientation: alert Motor Exam: general weakness Psych mental status grossly normal Skin no rashes or lesions noted and no wounds General Skin Exam: Negative for jaundice or pallor MDM MDM MDM Narrative Medical decision making narrative: Patient arrived to the ER with stable vitals and by the time he had arrived [facility] had improvement of his symptoms. As the patient's last known well was 11 PM and is now 4 AM he is outside any typeof stroke window and therefore there is no need for TNK. Moreover his symptoms are spontaneously improving. Howeveras patient could have an LVO and further intervention be needed a stroke alert was activated upon his arrival and he received a CT and CTA of the head and neck. Imaging studies revealed no acute finding. The case was discussed with [facility] neurologist Dr. Rosales who agrees that patient is outside the window for TNK he has had spontaneous resolution/improvement of his symptoms and therefore there is no need for intervention at this time. He recommends checking for potential metaboliccauses of his weakness and having an MRI performed to confirm no acute stroke. Patient and family were instructed of this plan and they are agreeable to the care at this time. The patient's labs showno leukocytosis signs of acute kidney injury or clinically significant electrolyte abnormality to pena ggest this as the cause of his symptoms. Urine sample shows nosign of infection and chest x-ray reveals no acute lung pathology. [facility] recommends patient receive a full-strength aspirin based on his symptoms that appear most consistent with potential TIA. Therefore in order to complete the stroke workup he will be admitted to the hospital for continued observation and care History & Record Review Discussion w/independent historian: Patient and Significant other Lab Data Attestation: I reviewed the patient's lab results. Labs: Laboratory Results - last 24 hr 01/19/25 01/19/25 04:00 04:40 WBC 6.3 RBC 4.31 L Hgb 14.2 Hct 40.8 MCV 94.7 H MCH 32.9 H MCHC 34.8 RDW Std Deviation 46.3 H RDW Coeff of Adrian 13.2 Plt Count 135 L MPV 10.4 Immature Gran % (Auto) 0.200 Neut % (Auto) 36.7 L Lymph % (Auto) 48.3 H Tensas % (Auto) 10.0 Eos % (Auto) 4.3 Baso % (Auto) 0.5 Absolute Neuts (auto) 2.3 Absolute Lymphs (auto) 3.03 Nucleated RBC % 0 PT 13.4 INR 1.0 APTT 28.5 Sodium 140 Potassium 4.1 Chloride 105 Carbon Dioxide 23.1 Anion Gap 12 BUN 25 H Creatinine 0.91 Estim Creat Clear Calc 68.19 Est GFR (MDRD) Non-Af 84 BUN/Creatinine Ratio 27.0 H Glucose 145 H Calcium 9.7 Urine Color Yellow Urine Clarity Clear Urine pH 6.0 Ur Specific [place] 1.015 Urine Protein Negative Urine Glucose (UA) Normal Urine Ketones Negative Urine Occult Blood Negative Urine Nitrite Negative Urine Bilirubin Negative Urine Urobilinogen Normal Ur Leukocyte Esterase Negative Urine RBC 0 SEEN Urine WBC 0 SEEN Ur Squamous Epith Cells 0 SEEN Urine Bacteria 0 SEEN Urine Mucus 0 SEEN Radiography Diagnostic Testing: Clinical Impression(s) from Imaging Studies Brain CT 01/19/25 04:00 IMPRESSION: No CT evidence for acute brain abnormality. Reading Location: [facility] Head/Neck CTA 01/19/25 04:03 IMPRESSION: Atherosclerosis without high-grade stenosis. Reading Location: [facility] Chest X-Ray 01/19/25 04:45 IMPRESSION: Mild bilateral basilar atelectatic pulmonary changes. Reading Location: [facility] Chest x-ray as interpreted by the emergency medicine physician reveals bibasilaratelectasis withoutacute infiltrate or pneumothorax Management Discussion w/another healthcare provider: Hospitalist and Assembler [employer] Discharge Plan Dx/Rx/DC Orders Clinical Impression: Stroke-like symptoms, Essential hypertension, Hyperlipidemia, Parkinson's disease Disposition Disposition: Acute Care Hospital [facility] Discharge Date/Time: 01/19/25 07:02 What to do if you have Problems For any increased pain, shortness of breath, bleeding, nausea or vomiting, chestpain, or any unexpected problems, contact your Primary Care Provider. Call [facility] ([phone]) or report tothe closest Emergency Room. Call 911 if necessary. 01/19/25 0806 Cosigner Signature (if applicable): CC: Dr. Oniel Francis MD ~ Signed [facility]06-17-2025 History and physical note [facility] Medical Records Department [address] [place] [address] History & Physical Exam 01/19/25 0558 MR#: [id number] Acct: [id number] Name: SONIYA COOLEY Rep #:[id number] : 1940 84 From: Mik Kilgore MD PCP: Dr. Oniel Francis MD Status:REG ER Location: ED HPI - General General Date of Admission: 01/19/25 Date of Service: 01/19/25 Chief Complaint: Leg weakness and slurring of speech HPI Narrative SOINYA COOLEY, is a 84 M who presents to the emergency room with chief complaint of lower extremity weakness and slurring of speech. Onset of symptomsbegan approximately 11:00 earlier this evening when he awoke to use the restroomand found himself to be weak in both lower extremities. His spouse n oticed he was slurring his speech for approximately 15 minutes and then that subsequently resolved.Patient has significant past medical history of carotid artery disease, coronary artery bypass surgery in 2019, status post aortic valve replacement, and hypertension. Patient arrived in the emergency room by personal vehicle with the spouse several hours later as symptoms seem to have resolved. 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 Laboratory studies were unremarkable. And urinalysis was negative. There is a fact that all neurologic symptoms have resolved at this point patient will be admitted for observation and an MRI of the head will be ordered to rule out active neurologic process. Patient currently denies chest pain, shortness of breath, fever or chills and/or nausea vomiting or diarrhea. [facility] Medical History (Updated 01/19/25 @ 05:[address] Tate Mcdonough DO) Parkinson disease Family history of malignant neoplasm of colon in mother Personal history of colonic polyps Essential tremor Aortic prosthetic valve regurgitation Deep vein thrombophlebitis of right leg Obesity Left carotid artery stenosis Prosthetic aortic valve stenosis Central sleep apnea Nonrheumatic aortic (valve) insufficiency Bicuspid aortic valve Vitamin D deficiency History of rheumatic fever Hyperlipidemia History of carotid artery disease Atherosclerosis of coronary artery of [place] heart without angina pectoris Essential hypertension Contusion of finger without damage to nail Laceration of finger of left hand without foreign body without damage to nail Hemorrhoids Shortness of breath Neck pain on left side Tingling and numbness left fingers Home Medications ?Medication ?Instructions ?Recorded ?Last Taken ?Type mqbasnfs-wwg-qeqrp acid 0.4 1 ea PO DAILY 05/28/16 History mg-lycopene 300 mcg-lutein 250 mcg tablet acetaminophen 500 mg tablet 1,000 mg PO TID PRN fever or pain 05/29/19 Unknown History cyanocobalamin (vitamin B-12) 500 1,000 mcg PO DAILY 1 Unknown History mcg sublingual tablet aspirin 81 mg chewable tablet 81 mg PO DAILY 12/22/19 Unknown History carbidopa 25 mg-levodopa 100 mg 2 tab PO TID 02/03/21 Unknown History tablet cholecalciferol (vitamin D3) 25 2,000 unit PO BID 09/25 Unknown History mcg (1,000 unit) tablet fluticasone propionate 50 1 spray intranasal DAILY PRN nasal 02/03/21 Unknown History mcg/actuation nasal congestion spray,suspension (Allergy Relief (fluticasone)) levothyroxine 25 mcg tablet 25 mcg PO DAILY 02/03/21 U nknown History metoprolol tartrate 50 mg tablet See Rx Instructions . Route 12/17/22 Unknown Rx .COMPLEX #180 tabs nitroglycerin 0.4 mg sublingual See Rx Instructions .R oute 02/25/23 Unknown Rx tablet .COMPLEX #25 tabs atorvastatin 80 mg tablet 80 mg PO QHS 01/19/25 Unknow n History propranolol 80 mg capsule,24 80 mg PO Q24H 01/19/25 Un known History hr,extended release tamsulosin 0.4 mg capsule 0.8 mg PO QHS 01/19/25 Unkno wn History trazodone 50 mg tablet 50 mg PO QHS 01/19/25 Unknow n History Allergy/AdvReac Type Severity Reaction Status Date / Time iodine Allergy Other Verified 01/19/25 03:56 Penicillins Allergy Hives Verified 01/19/25 03:56 Family History Mother Heart disease Colon cancer Father Diabetes Sister Heart disease Brother Heart disease Surgical History (Updated 01/19/25 @ 04:14 by Alexsandra Salas) History of single vessel coronary artery bypass History of cataract extraction History of colonoscopy (~2014) History of left heart catheterization (08/26/18) H/O coronary artery bypass surgery (10/2018) H/O aortic valve replacement (10/2018) History of left-sided carotid endarterectomy (2008) History of hernia repair History of cholecystectomy History of tonsillectomy Social History Smoking Status: Never smoker alcohol intake: current alcohol intake frequency: a few times a month Alcohol type: beer and wine substance use type: does not use caffeine: No ROS Constitutional Constitutional: Denies chills or fever(s) Eyes Eyes: Denies blurry vision ENT HEENT: Denies abnormal hearing Cardiovascular Cardiovascular: Denies chest pain Respiratory/Chest Respiratory/Chest: Denies shortness of breath at rest Gastrointestinal Gastrointestinal: Denies abdominal pain Genitourinary Genitourinary: Denies dysuria Musculoskeletal Musculoskeletal: Denies back pain Integumentary Integumentary: Denies dry skin Neurologic Neurologic: Reports abnormal speech and focal weakness Psychiatric Psychiatric: Denies anxiety Endocrine Endocrinology: Denies change in body appearance Vital Signs Vital Signs Vital Signs: 01/19/25 03:53 01/19/25 03:57 01/19/25 04:00 Temperature 98.0 F Temperature Source Oral Pulse Rate 69 67 69 Respiratory Rate 18 18 18 Blood Pressure 152/73 H 152/73 H 137/70 H Blood Pressure Mean 99 99 92 Pulse Ox 93 93 92 Oxygen Delivery Method Room Air Room Air 01/19/25 04:10 01/19/25 04:30 01/19/25 05:00 Temperature Temperature Source Pulse Rate 68 66 Respiratory Rate 18 18 Blood Pressure 154/84 H 135/83 H Blood Pressure Mean 107 100 Pulse Ox 93 92 92 Oxygen Delivery Method Room Air Room Air Room Air Weight Weight: 213 lb 6.519 oz Body Mass Index (BMI) 33.4 Physical Exam Const alert, oriented x3 and no apparent distress General Appearance: cooperative and well developed HEENT normocephalic and head/scalp atraumatic Neck no lymphadenopathy Lymph Lymphatic: no lymphadenopathy noted Resp normal respiratory effort, normal air movement and clear to auscultation bilaterally Cardio regular rate, regular rhythm, S1 normal heart sound and S2 normal heart sound GI normal to inspection, nondistended, normoactive bowel sounds Extremity normal capillary refill General Extremity: no tenderness to palpation of joints or extremities Skin General Skin Exam: no breakdown Neuro CN's II-XII intact bilaterally, no focal motor deficits and no sensory deficits noted Speech: speech normal Motor Exam: strength 5/5 throughout Psych thought process normal, cooperative and affect normal Results Lab / Micro Data 01/19/25 04:00 01/19/25 04:00 Labs: Laboratory Results - last 24 hr 01/19/25 04:00: WBC 6.3, RBC 4.31 L, Hgb 14.2, Hct 40.8, MCV 94.7 H, MCH 32.9 H,MCHC 34.8, RDW Std Deviation 46.3 H, RDW Coeff of Adrian 13.2, Plt Count 135 L, MPV10.4, Immature Gran % (Auto) 0.200, Neut % (Auto) 36.7 L, Lymph % (Auto) 48.3 H,Tensas % (Auto) 10.0, Eos % (Auto) 4.3, Baso % (Auto) 0.5, Absolute Neuts (auto) 2.3, Absolute Lymphs (auto) 3.03, Nucleated RBC % 0, PT 13.4, INR 1.0, APTT 28.5, Sodium 140, Potassium 4.1, Chloride 105, Carbon Dioxide 23.1, Anion Gap 12, BUN 25 H, Creatinine 0.91, Estim Creat Clear Calc 68.19, Est GFR (MDRD) Non-Af 84, BUN/Creatinine Ratio 27.0 H, Glucose 145 H, Calcium 9.7 01/19/25 04:40: Urine Color Yellow, Urine Clarity Clear, Urine pH 6.0, Ur Specific [place] 1.015, Urine Protein Negative, Urine Glucose (UA) Normal, UrineKetones Negative, Urine Occult Blood Negative, Urine Nitrite Negative, Urine Bilirubin Negative, Urine Urobilinogen Normal, Ur Leukocyte Esterase Negative, Urine RBC 0 SEEN, Urine WBC 0 SEEN, Ur Squamous Epith Cells 0 SEEN, Urine Bacteria 0 SEEN, Urine Mucus 0 SEEN Imaging Radiology Impression Brain CT 01/19/25 04:00 IMPRESSION: No CT evidence for acute brain abnormality. Reading [facility] Head/Neck CTA 01/19/25 04:03 IMPRESSION: Atherosclerosis without high-grade stenosis. Reading [facility] Chest X-Ray 01/19/25 04:45 IMPRESSION: Mild bilateral basilar atelectatic pulmonary changes. Reading Location: [place] [address] Assessment & Plan Assessment/Plan (1) H/O coronary artery bypass surgery: (2) H/O aortic valve replacement: (3) Essential hypertension: (4) Hyperlipidemia: (5) Stroke-like symptoms: PLAN: Plan 1 strokelike symptoms that have resolved consistent with transient ischemic attack?admit patient toprogressive care unit for observation, initiate neurologic assessments every 4 hours, continue aspirin therapy and order MRI of the brain. CT angiogram was performed and patient does have some level of disease that we will need to be followed by vascular surgery post discharge. 2. Hyperlipidemia?continue statin medication 3. Hypertension?continue routine home medications will add as needed antihypertensive therapy per protocol 4. DVT prophylaxis?low molecular weight heparin Charges/Coding Visit Charges OBSV E&M: 84085 Observ/hosp same date L2 01/19/25 0607 Cosigner Signature (if applicable): CC: Dr. Oniel Francis MD; Dr. Mik Kilgore MD~ Signed [facility]06-17-2025 [facility] Medical Records Department [address] [place] [address] History Physical Exam 01/19/25 0558 MR#: [id number] Acct: [id number] Name: SONIYA COOLEY Rep #: [id number] : 1940 84 From: Mik Kilgore MD PCP: Dr. Oniel Francis MD Status:REG ER Location: ED HPI - General General Date of Admission: 01/19/25 Date of Service: 01/19/25 Chief Complaint: Leg weakness and slurring of speech HPI Narrative SONIYA COOLEY, is a 84 M who presents to the emergency room with chief complaint of lower extremity weakness and slurring of speech. Onset of symptoms began approximately 11:00 earlier this evening when he awoke to use the restroom and found himself to be weak in both lower extremities. His spouse noticed he was slurring his speech for approximately 15 minutes and then that subsequently resolved. Patient has significant past medical history of carotid artery disease, coronary artery bypass surgery in 2019, status post aortic valve replacement, and hypertension. Patient arrived in the emergency room by personal vehicle with the spouse several hours later as symptoms seem to have resolved. 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 Laboratory studies were unremarkable. And urinalysis was negative. There is a fact that all neurologic symptoms have resolved at this point patient will be admitted for observation and an MRI of the head will be ordered to rule out active neurologic process. Patient currently denies chest pain, shortness of breath, fever or chills and/or nausea vomiting or diarrhea. [facility] Medical History (Updated 01/19/25 @ 05:[address] Tate Mcdonough, ) Parkinson disease Family history of malignant neoplasm of colon in mother Personal history of colonic polyps Essential tremor Aortic prosthetic valve regurgitation Deep vein thrombophlebitis of right leg Obesity Left carotid artery stenosis Prosthetic aortic valve stenosis Central sleep apnea Nonrheumatic aortic (valve) insufficiency Bicuspid aortic valve Vitamin D deficiency History of rheumatic fever Hyperlipidemia History of carotid artery disease Atherosclerosis of coronary artery of [place] heart without angina pectoris Essential hypertension Contusion of finger without damage to nail Laceration of finger of left hand without foreign body without damage to nail Hemorrhoids Shortness of breath Neck pain on left side Tingling and numbness left fingers Home Medications ???Medication ???Instructions ???Recorded ???Last Taken ???Type ziywtfda-rae-udbuk acid 0.4 1 ea PO DAILY 05/28/16 05/28/16 Hi story mg-lycopene 300 mcg-lutein 250 mcg tablet acetaminophen 500 mg tablet 1,000 mg PO TID PRN fever or pain 05/29/19 Unknown History cyanocobalamin (vitamin B-12) 500 1,000 mcg PO DAILY 05/29/19 Unkno wn History mcg sublingual tablet aspirin 81 mg chewable tablet 81 mg PO DAILY 12/22/19 Unknown Hi story carbidopa 25 mg-levodopa 100 mg 2 tab PO TID 02/03/21 Unknown Hist ory tablet cholecalciferol (vitamin D3) 25 2,000 unit PO BID 02/03/21 Unknown History mcg (1,000 unit) tablet fluticasone propionate 50 1 spray intranasal DAILY PRN nasal 02/03/21 Unknown History mcg/actuation nasal congestion spray,suspension (Allergy Relief (fluticasone)) levothyroxine 25 mcg tablet 25 mcg PO DAILY 02/03/21 Unknown H istory metoprolol tartrate 50 mg tablet See Rx Instructions .Route 3 Unknown Rx .COMPLEX #180 tabs nitroglycerin 0.4 mg sublingual See Rx Instructions .Route 3 Unknown Rx tablet .COMPLEX #25 tabs atorvastatin 80 mg tablet 80 mg PO QHS 01/19/25 Unknown Hist ory propranolol 80 mg capsule,24 80 mg PO Q24H 01/19/25 Unknown His tory hr,extended release tamsulosin 0.4 mg capsule 0.8 mg PO QHS 01/19/25 Unknown His tory trazodone 50 mg tablet 50 mg PO QHS 01/19/25 Unknown Hist ory Allergy/AdvReac Type Severity Reaction Status Date / Time iodine Allergy Other Verified 01/19/25 03:56 Penicillins Allergy Hives Verified 01/19/25 03:56 Family History Mother Heart disease Colon cancer Father Diabetes Sister Heart disease Brother Heart disease Surgical History (Updated 01/19/25 @ 04:14 by Alexsandra Salas) History of single vessel coronary artery bypass History of cataract extraction History of colonoscopy ( 2014) History of left heart catheterization (08/26/18) H/O coronary artery bypass surgery (10/2018) H/O aortic valve replacement (10/2018) History of left-sided carotid endarterectomy (2008) History of hernia repair History of cholecystectomy History of tonsillectomy Social History ...[facility]06-17-2025 Radiology Diagnostic study note [facility] Imaging Services [address] [place], [place] [id number] STROKE CTA Head AND Neck W/Con MR#: [id number] Acct: [id number] Name: SONIYA COOLEY Rep #: [id number] : 1940 M 84 From: Olvin Watters MD PCP: Dr. Oniel Francis MD Status: REG ER Study:STROKE CTA Head AND Neck W/Con Date of Exam: 01/19/25 Exam# [id number] Ordering Dr: Marjan Mcdonough DO PROCEDURE: STROKE CTA HEAD AND NECK W/CON 01/19/2025 REASON FOR EXAM: NEURO DEFICIT, ACUTE, STROKE SUSPECTED TECHNIQUE: STROKE CTA HEAD AND NECK W/CON Multiplanar Sagittal and Coronal images were obtained. CONTRAST: Isovue-300 70 VOLUME: 100 mL One or more dose reduction techniques were used (e.g., Automated exposure control, adjustment of the mA and/or kV according to patient size, use of iterative reconstruction technique). RADIATION DOSE SUMMARY: CTDlvol: 19.77 mGy DLP: 816 mGycm COMPARISON: CT scan of the head on 01/19/2025. FINDINGS: Normal bilateral petrous carotid arteries. Calcified atheromatous plaques with mild multifocal stenosis of the right cavernous carotid artery with a normal supraclinoid bifurcation. Calcified atheromatous plaques with mild multifocal stenosis of the left cavernous carotid artery with a normal supraclinoid bifurcation. Normal right A1 segments of the anterior cerebral artery. Normal left A1 segments of the anterior cerebral artery. Normal intact anterior communicating artery (ACOM). Normal bilateral A2 segments of the anterior cerebral arteries. Normal right M1 and M2 segments of the middle cerebral arteries, with a normal M1 bifurcation. Normal left M1 and M2 segments of the middle cerebral arteries, with a normal M1 bifurcation. Normal right posterior communicating artery (PCOM). Normal left posterior communicating artery (PCOM). Normal bilateral vertebral arteries. Normal basilar artery with a normal basilar bifurcation. The visualized bilateral superior cerebellar (SCA) arteries are normal. Normal bilateral P1, P2 and visualized P3 segments of the posterior cerebral arteries. There is no demonstrated aneurysm of the [place] of [place]. There is no major vessel occlusion or hemodynamically significant stenosis. There is no demonstrated abnormality of the visualized brain. Technique: Axial CT angiographic images of the neck. Reformatted coronal and sagittal images. 3D, MIP images. Reconstructed images were reviewed on a different workstation by radiologist. RIGHT CAROTID ARTERIES: Normal right common carotid artery (CCA). 20% stenosis of the right common carotid bulb. 20% stenosis of the origin of the right internal carotid (ICA) artery without a hemodynamically significant stenosis. Normal visualized cervical portion of the right internal carotid artery. Normal origin of the right external carotid artery (ECA). LEFT CAROTID ARTERIES: Normal left common carotid artery (CCA). 20% stenosis of the left common carotid bulb. 20% stenosisof the origin of the left internal carotid (ICA) artery without a hemodynamically significant stenosis. Normal visualized cervical portion of the left internal carotid artery. Normal origin of the left external carotid artery (ECA). VERTEBRAL ARTERIES: 20% stenosis of the bilateral vertebral artery without a hemodynamically significant stenosis. CT/STROKE CTA Head AND Neck W/Con IMPRESSION: Atherosclerosis without high-grade stenosis. Reading Location: [place] [address] CC: Dr. Oniel Francis MD; Tate Mcdonough DO ~ Eeg Technician: Signed [facility]06-17-2025 Radiology Diagnostic study note [facility] Imaging Services [address] [place] [id number] Chest 1 View MR#: [id number] Acct: [id number] Name: SONIYA COOLEY Rep #: [id number] : 1940 M 84 From: Olvin Watters MD PCP: Dr. Oniel Francis MD Status: [facility] ER Study:Chest 1 View Date of Exam: 5 Exam# [id number] Ordering Dr: Marjan Mcdonough DO PROCEDURE: CHEST 1 VIEW 01/19/2025 REASON FOR EXAM: NEURO DEFICIT, ACUTE, STROKE SUSPECTED TECHNIQUE: Frontal view of the chest. COMPARISON: None. FINDINGS: Unremarkable median sternotomy wires. Mild bilateral basilar atelectatic pulmonary changes. There is no demonstrated pleural abnormality. Enlarged cardiac silhouette. Normal mediastinum and julee. Normal visualized pulmonary arteries. Atheromatous plaques of the visualized aortic arch and descending thoracic aorta. Diffuse spondylosis of the visualized thoracic spine. Normal visualized ribs, clavicles. Degenerative joint disease. There is no demonstrated abnormality of the visualized soft tissue structures ofthe upper abdomen. RAD/Chest 1 View IMPRESSION: Mild bilateral basilar atelectatic pulmonary changes. Reading Location[facility] CC: Dr. Oniel Francis MD; Tate Mcdonough DO ~ Eeg Technician: Signed [facility]06-17-2025 Radiology Diagnostic study note [facility] Imaging Services [address] [place], [place] [address] STROKE Brain/Head without Cont MR#: [id number] Acct: [id number] Name: SONIYA COOLEY Rep #: [id number] : 1940 M 84 From: Olvin Watters MD PCP: Dr. Oniel Francis MD Status: REG ER Study:STROKE Brain/Head without Cont Date of Exam: 01/19/25 Exam# [id number] Ordering Dr: Marjan Mcdonough DO PROCEDURE: STROKE BRAIN/HEAD WITHOUT CONT 01/19/2025 REASON FOR EXAM: NEURO DEFICIT, ACUTE, STROKE SUSPECTED TECHNIQUE: STROKE BRAIN/HEAD WITHOUT CONT Coronal and Sagittal reconstruction series were provided. One or more dose reduction techniques were used (e.g., Automated exposure control, adjustment of the mA and/or kV according to patient size, use of iterative reconstruction technique. RADIATION DOSE SUMMARY: CTDlvol: 44.99 mGy DLP: 812 mGycm COMPARISON: None. FINDINGS: Mild diffuse cortical atrophy, commensurate with the patient's age. Scattered hypodense foci in the periventricular and subcortical white matter suggestive of chronic ischemic white matter disease. Normal size of the ventricles and extra-axial spaces for the patient's age. Normal basal ganglia and thalami. Normal brainstem. Normal cerebellum. There is no demonstrated extra-axial, intraparenchymal, or intraventricular hemorrhage. There are no findings of an acute ischemic infarction. Normal calvarium. There is no demonstrated fracture. Normal soft tissue structures. Mild chronic mucosal inflammatory changes of the visualized paranasal sinuses. CT/STROKE Brain/Head without Cont IMPRESSION: No CT evidence for acute brain abnormality. Reading Location[facility] CC: Dr. Oniel Francis MD; DO Whitley Duncan Eeg Technician: Signed [facility]04-30-2025 NoteHNO ID: [id number] Author: PRUDENCIO BARLOW MA Service: ? Author Type: Driver'S License Reviewing Officer Type: Progress Notes Filed: 12/02/2024 08:06 Note Text: Scan on 11/20/2024 4:11 PM by ProviderKaren PA-C: Consultation - Anesthesia/Pain Prudencio Barlow [facility]04-30-2025 History of Present illness Narrative* Prudencio Barlow MA - 12/02/2024 8:05 AM EDT Scan on 11/20/2024 4:11 PM by ProviderKaren PA-C: Consultation - Anesthesia/Pain Prudencio Barlow MA documented in this encounterDay[facility]03-31-[facility]25 Telephone encounter Note * Telephone Encounter - Elizabet Heredia - 11/02/2024 1:56 PM EDT Prescription Refill Information The patient has been [...] Elizabet Heredia November 02, 2024 1:57 PM [facility]03-31-2025 Miscellaneous Notes* Telephone Encounter - Elizabet Heredia - 11/02/2024 1:56 PM EDT Prescription Refill Information The patient has been [...] 02, 2024 1:57 PM documented in this encounterDayton [facility] Center02-19-2025 Telephone encounter Note * Telephone Encounter - Moni Encarnacion MA - 09/23/2024 1:38 PM EST Called and spoke with patient. He expressed understanding. [facility]02-19-2025 Miscellaneous Notes* Telephone Encounter - Moni Encarnacion MA - 09/23/2024 1:38 PM EST Called and spoke with patient. He expressed understanding. * Telephone Encounter - Precious Caballero RN - 09/21/2024 12:12 PM EST Called patient at [phone]. Left message on voicemail for patient to return call. * Telephone Encounter - Moni Encarnacion MA - 09/18/2024 2:06 PM EST Images from the original note were not included. 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 Depending on response we could increase propranolol in the future. Thanks documented in this encounterDayton [facility] Medical Center02-17-2025 Telephone encounter Note * Telephone Encounter - Precious Caballero RN - 09/21/2024 12:12 PM EST Called patient at [phone]. Left message on voicemail for patient to return call. [facility]02-14-[facility] Telephone encounter Note* Telephone Encounter - Moni Encarnacion MA - 09/18/2024 2:06 PM EST Images from the original note were not included. 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 Depending on response we could increase propranolol in the future. Thanks [facility]02-14-2025 Telephone encounter Note* Telephone Encounter - Hemalatha Oneil LPN - 09/18/2024 2:00 PM EST Message with results sent to patient in Isagen message. Hemalatha Oneil LPN [facility]02-14-2025 Miscellaneous Notes* Telephone Encounter - Hemalatha Oneil LPN - 09/18/2024 2:00 PM EST Message with results sent to patient in Isagen message. Hemalatha Oneil LPN * Telephone Encounter - Hemalatha Oneil LPN - 09/18/2024 1:59 PM EST Images from the original note were not included. Marj Mackey MD routed this conversation to [facility] Marj Mackey MD to Omero Cooley 09/18/24 1:54 PM Hey Les Your echocardiogram looks good and the valve continues to function well Lewis Mackey This MyChart message has not been read. documented in this encounterDayton Va Medical Center02-14-2025 Telephone encounter Note * Telephone Encounter - Hemalatha Oneil LPN - 09/18/2024 1:59 PM EST Images from the original note were not included. Marj Mackey MD routed this conversation to [facility] Marj Mackey MD to Omero Cooley 09/18/24 1:54 PM Hey Les Your echocardiogram looks good and the valve continues to function well Lewis Mackey This MyChart message has not been read. [facility]02-07-2025 Instructions* Patient Instructions* Abby Pate MD - 09/11/2024 3:26 PM EST 1. I'll message Dr. Mackey to see if metoprolol can be changed to propranolol 2. Try trazodone for sleep - try a half pill at bedtime for a week and if no better go up to a fullpill. If after 2-3 weeks of 1 pill you've had no benefit and no side effects you can go up to 2 pills and let me know for future refills. Watch out for sleepiness with it. documented in this encounterDayton Va Medical Center02-07-2025 NoteHNO ID: [id number] Author: ABBY PATE MD Service: ? Author [...] (FLONASE) 50 mcg/actuation nasal spray Use 1 Howard in each nostril once daily. Rinse mouth [...] DATA REVIEW Actual films (more content not included)...[facility]02-07-2025 History of Present illness Narrative* Abby Pate MD - 09/11/2024 3:10 PM EST Neurology Follow Up Note Subjective Soniya Cooley [...] is most consistent with Parkinson's Disease. He hasmotor features of tremor, mild left sided bradykinesia, [...] increase levodopa to 300 mg TID, add melatonin.08/2021 taper off levodopa without benefit. 12/2021 had increased to 300 TID, no change. 06/2022 try 250 TID with mild dyskinesia. 03/2023 offered changes deferred. 09/2023 no changes. 03/2024 try 350 mg TID. HPI Current Issues - Maybe tried 3.5 pills per dose for a couple weeks but not completely sure, thinks he did buthe isn't sure - Not as sure right now how much it is helping, once forgot a couple doses in a row and woke up thenext day very shaky - Will often forget [...] 1 tablet by mouth two times a day.180 tablet 1 carbidopa-levodopa (SINEMET 25-100) 25-100 mg [...] (FLONASE) 50 mcg/actuation nasal spray Use 1 Howard in each nostril once daily. Rinse mouth [...] (BD POSIFLUSH) 10 mL INTRAVENOUS DIRECTED PRN Shelby Mackey MD REVIEW OF SYSTEMS His ROS [...] heart history, will touch base with his white goods appliance tech if metoprolol could be changed to propranolol [...] Discussed with Patient: YES Abby Pate MD [facility] Neurology documented in this encounterDayton [facility] Medical Center01-27-2025 History of Present illness Narrative* Marj Mackey MD - 08/31/2024 3:40 PM EST Images from the original note were not included. [facility] SE[facility] REGIONAL CARDIOLOGY Cardiology ([address]) [address] [facility] [id number] OUTPATIENT VISIT DATE 08/31/2024 PRIMARY CARE PHYSICIAN: Oniel Francis [address] [place] [address] HISTORY OF PRESENT ILLNESS: Mr. Cooley is [...] hypertension, dyslipidemia. He presents the office for routinefollow-up. Patient continues to have dyspnea on exertion [...] a build up on the bovine Valve, Startedin 12/2015 Aortic valve replaced 11/13/200510/2018 and anticoagulation [...] Yes Statins: Lipitor 40mg started 3-30, LFTs normal-continueon dc. Elevated fasting blood sugar 06/19/2016 Essential [...] () Meniscus tear 12/27/2015 Right, minimal. Seen [place] ortho Microscopic hematuria 01/10/2021 Saw [facility] 02/2021 [...] Pt reports he was told by the white goods appliance tech that they almost lost him due to [...] fluticasone (FLONASE) 50 mcg/actuation nasal spray^Use 1 Howard in each nostril once daily. Rinse mouth [...] S1, S2 with regular rate and rhythm. [place] aortic valve sounds noted. CARDIOVASCULAR MEDICINE TESTING: [...] 0.85 which was hemodynamically significant. Impressions: Severe [place] multivessel CAD Patent Bypass grafts Echocardiogram [facility] 01/08/2020 Normal LV size, mild concentric left [...] There is mild concentric left ventricular hypertrophy. Leftventricular systolic function is normal. EF = 59 [...] AND RECOMMENDATIONS: 1. Coronary 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[place] coronary artery of [place] heart without angina pectoris- ICD9: 414.01, ICD10: I25.10 (primary diagnosis) Patient [...] daily. Last fasting blood work was from January2024 at which time his LDL cholesterol was [...] BNP Marj Mackey MD documented in this encounterDayton [facility] Medical Center01-27-2025 NoteHNO ID: [id number] Author: MARJ MACKEY MD Service: ? Author Type: Physician Type: Progress Notes Filed: 08/31/2024 16:39 Note Text: [facility]AL CARDIOLOGY Cardiology ([facility]) [address] [facility] [id number] OUTPATIENT VISIT DATE 08/31/2024 PRIMARY CARE PHYSICIAN: Oniel Francis [address] [place] [address] HISTORY OF PRESENT ILLNESS: Mr. Cooley is [...] 10/29/2018 Aortic valve rep (more content not included)...[facility] 08-03-2024 Telephone encounter Note* Telephone Encounter - Анна Martini LPN - 08/03/2024 7:25 AM EST Prescription Refill Information The patient has been [...] Martini LPN August 03, 2024 7:25 AM [facility]12-30-2024 Miscellaneous Notes* Telephone Encounter - Анна Martini LPN - 08/03/2024 7:25 AM EST Prescription Refill Information The patient has been [...] 03, 2024 7:25 AM documented in this encounterDayton Va Medical Center12-06-2024 Telephone encounter Note * Telephone Encounter - Oniel Francis MD - 07/10/2024 5:16 PM EST The following approved medication requests have been transmitted electronically. Requested Prescriptions Signed Prescriptions Disp Refills levothyroxine (SYNTHROID) 25 mcg tablet 90 tablet 1 Sig: Take 1 tablet by mouth once daily. Take on empty stomach. For thyroid. Authorizing Provider: ONIEL FRANCIS MD [facility]12-06-2024 Miscellaneous Notes* Telephone Encounter - Oniel Francis MD - 07/10/2024 5:16 PM EST The following approved medication requests have been transmitted electronically. Requested Prescriptions Signed Prescriptions Disp Refills levothyroxine (SYNTHROID) 25 mcg tablet 90 tablet 1 Sig: Take 1 tablet by mouth once daily. Take on empty stomach. For thyroid. Authorizing Provider: ONIEL FRANCIS MD * Telephone Encounter - Prudencio Barlow MA - 07/10/2024 4:51 PM EST Sent message to [facility] for other medication refill. Prescription Refill Information [...] Barlow MA July 10, 2024 4:52 PM * Telephone Encounter - Daly Art - 07/10/2024 4:16 PM EST Patient has been identified by name and [...] Thank you. Daly Art. documented in this encounterDayton Va Medical Center12-06-2024 Telephone encounter Note * Telephone Encounter - Prudencio Barlow MA - 07/10/2024 4:54 PM EST Prescription Refill Information The patient has been [...] Barlow MA July 10, 2024 4:54 PM [facility]12-06-2024 Miscellaneous Notes* Telephone Encounter - Prudencio Barlow MA - 07/10/2024 4:54 PM EST Prescription Refill Information The patient has been [...] 10, 2024 4:54 PM documented in this encounterDayton Va Medical Center12-06-2024 Telephone encounter Note * Telephone Encounter - Prudencio Barlow MA - 07/10/2024 4:51 PM EST Sent message to [facility] for other medication refill. Prescription Refill Information [...] Barlow MA July 10, 2024 4:52 PM [facility]12-06-2024 Telephone encounter Note* Telephone Encounter - Daly Art - 07/10/2024 4:16 PM EST Patient has been identified by name and [...] 02/08/2025 Please advise. Thank you. Daly Art. [facility]10-07-2024 Telephone encounter Note* Telephone Encounter - Mayra Breaux LPN - 05/11/2024 2:17 PM EDT Patient returned call and went over results, notes from Zina Duran COMMUNITY ARTS WORKER with understanding. Patient said he has appt on Saturday with Dr Caldwell at [facility] and requesting a copy of report befaxed. Printed and faxed to [phone] as requested. [facility]10-07[facility]24 Miscellaneous Notes* Telephone Encounter - Mayra Breaux LPN - 05/11/2024 2:17 PM EDT Patient returned call and went over results, notes from Zina Duran COMMUNITY ARTS WORKER with understanding. Patient said he has appt on Saturday with Dr Caldwell at [facility] and requesting a copy of report befaxed. Printed and faxed to [phone] as requested. * Telephone Encounter - Autumn Mares MA - 05/11/2024 1:07 PM EDT Left message for patient to return call to office Autumn Mares MA * Telephone Encounter - Zina Duran APRN.CNP - 05/11/2024 1:02 PM EDT Please let patient know refills sent. Also Us results from [facility] negative for DVT ;however does show a likely popliteal cyst which could be causing pain. Recommend follow up with ortho. * Telephone Encounter - Olive Raphael OCCA - 05/11/2024 11:01 AM EDT TC to patients , listed in chart to receive medical information, who verbalized understanding of below. asking that refills of atorvastatin and metoprolol be sent to pharmacy. Pended as suchif provider agreeable. ROLAN 05/07/2024 NOV 02/08/2025 * Telephone Encounter - Zina Duran APRN.CNP - 05/08/2024 11:49 AM EDT Please let patient know their labs are WNL documented in this encounterDayton Va Medical Center10-07-2024 Telephone encounter Note * Telephone Encounter - Autumn Mares MA - 05/11/2024 1:07 PM EDT Left message for patient to return call to office Autumn Mares MA [facility]10-07-2024 Telephone encounter Note* Telephone Encounter - Zina Duran APRN.CNP - 05/11/2024 1:02 PM EDT Please let patient know refills sent. Also Us results from [facility] negative for DVT ;however does show a likely popliteal cyst which could be causing pain. Recommend follow up with ortho. [facility]10-07-2024 Telephone encounter Note* Telephone Encounter - Olive Raphael OCCA - 05/11/2024 11:01 AM EDT TC to patients , listed in chart to receive medical information, who verbalized understanding of below. asking that refills of atorvastatin and metoprolol be sent to pharmacy. Pended as suchif provider agreeable. ROLAN 05/07/2024 NOV 02/08/2025 [facility]10-04-2024 Telephone encounter Note* Telephone Encounter - Zina Duran APRN.CNP - 05/08/2024 11:49 AM EDT Please let patient know their labs are WNL [facility]10-04-2024 Telephone encounter Note* Telephone Encounter - Mayra Breaux LPN - 05/08/2024 9:59 AM EDT Patient Elizabet calling having problem scheduling ultrasound for his legs at [facility]. She was told office has to call to schedule. This nurse called and spoke to scheduling Rosalia and scheduled STAT ultrasound of his legs today at 1 pm patient to be there at 1245 pm. Phoned patient back and gave instructions, told may want to be earlier since construction is going on at [facility] area. Phoned recruiting scheduler and cancelled appt for [place] for this afternoon. [facility]10-04-2024 Miscellaneous Notes* Telephone Encounter - Mayra Breaux LPN - 05/08/2024 9:59 AM EDT Patient Elizabet calling having problem scheduling ultrasound for his legs at [facility]. She was told office has to call to schedule. This nurse called and spoke to scheduling Rosalia and scheduled STAT ultrasound of his legs today at 1 pm patient to be there at 1245 pm. Phoned patient back and gave instructions, told may want to be earlier since construction is going on at [facility] area. Phoned recruiting scheduler and cancelled appt for [place] for this afternoon. documented in this encounterDayton Va Medical Center10-04-2024 Telephone encounter Note * Telephone Encounter - Autumn Mares MA - 05/08/2024 9:27 AM EDT Approval received. Pt will call [facility] to schedule Autumn Mares MA [facility]10-04-2024 Miscellaneous Notes* Telephone Encounter - Autumn Mares MA - 05/08/2024 9:27 AM EDT Approval received. Pt will call [facility] to schedule Autumn Mares MA * Telephone Encounter - Autumn Mares MA - 05/08/2024 9:11 AM EDT Referral placed. Waiting to hear back from pre access if approved Autumn Mares MA * Telephone Encounter - Zina Duran APRN.CNP - 05/07/2024 5:03 PM EDT Please check to see if [facility] has availability. If so please fax order. * Telephone Encounter - Sophie Collier - 05/07/2024 4:55 PM EDT Pt called to check schedule in [place] for [place]. There are no appointments available here tomorrow. He would like to check at the [facility] if the order could be sent there to check appointment availability tomorrow. He kept the [place] appointment just in case we find that the [facility] can't accommodate tomorrow. documented in this encounterDayton Va Medical Center10-04-2024 Telephone encounter Note * Telephone Encounter - Autumn Mares MA - 05/08/2024 9:11 AM EDT Referral placed. Waiting to hear back from pre access if approved Autumn Mares MA [facility]10-03-2024 Telephone encounter Note* Telephone Encounter - Zina Duran APRN.CNP - 05/07/2024 5:03 PM EDT Please check to see if [facility] has availability. If so please fax order. [facility]10-03-[facility] Telephone encounter Note* Telephone Encounter - Amira Sophie - 05/07/2024 4:55 PM EDT Pt called to check schedule in [place] for US. There are no appointments available here tomorrow. He would like to check at the [facility] if the order could be sent there to check appointment availability tomorrow. He kept the [place] appointment just in case we find that the [facility] can't accommodate tomorrow. [facility] Work Phone: [phone] NoteHNO ID: [id number] Author: ZINA DURAN APRN.RECOVERY ASSISTANT Service: ? Author Type: Nurse Practitioner [...] Left TONSILLECTOMY HX TOTA (more content not included)...[facility]10-03-2024 History of Present illness Narrative* Zina Duran, BUCKLE INSPECTOR.RECOVERY ASSISTANT - 05/07/2024 3:50 PM EDT Chief Complaint Patient presents with: Edema: Both [...] a build up on the bovine Valve, Startedin 12/2015 Aortic valve replaced 11/13/200510/2018 and anticoagulation [...] Yes Statins: Lipitor 40mg started 3-30, LFTs normal-continueon dc. 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 Rinse mouth [...] - US DVT LOWER BILATERAL Zina Duran APRN.RECOVERY ASSISTANT documented in this encounterDayton Va Medical Center09-03-2024 Miscellaneous Notes* Telephone Encounter - Ella Valdovinos PA-C - 04/07/2024 11:12 AM EDT Ordering labs for next year's wellness exam. Ella Valdovinos PA-C documented in this encounterDayton Va Medical Center09-03-2024 Telephone encounter Note * Telephone Encounter - Ella Valdovinos PA-C - 04/07/2024 11:12 AM EDT Ordering labs for next year's wellness exam. Ella Valdovinos PA-C [facility]09-03-2024 NoteHNO ID: [id number] Author: ELLA VALDOVINOS PA-C Service: ? Author Type: Physician Product Trainer Type: Progress Notes Filed: 04/07/2024 11:07 Note [...] 40mg started 11-01, LFTs normal-continue on dc. 06/19/2016: Elevated fasting [...] behavior of thoracic vertebral column Comment: Saw Ortho 06/2016 and felt benign 07/26/2015: Nocturnal hypoxemia [...] HRNA AGE 6 Y (more content not included)...[facility]09-03-2024 History of Present illness Narrative* Ella Valdovinos PA-C - 04/07/2024 10:50 AM EDT Chief Complaint Patient presents with: Recheck HPI [...] stenosis, asymptomatic, bilateral Comment: S/P left repair, [place] for yearly US. 08/24/2015: Coronary atherosclerosis Comment: [...] behavior of thoracic vertebral column Comment: Saw Ortho 06/2016 and felt benign 07/26/2015: Nocturnal hypoxemia [...] Pt reports he was told by the white goods appliance tech that they almost lost him due to [...] (FLONASE) 50 mcg/actuation nasal spray Use 1 Howard in each nostril once daily. Rinse mouth [...] well-hydrated, well nourished.. Health Maintenance List Covid-19 Vaccine( season) due on 04/05/2024 Influenza Vaccine(1) due on [...] urology Ella Valdovinos PA-C documented in this encounterDayton Va Medical Center08-07-2024 Instructions* Patient Instructions* Abby Pate MD - 03/11/2024 1:29 PM EDT Try taking 3.5 pills of the carbidopa/levodopa three times a day. You can wait a few weeks to startdoing this to see if things improve with a little more time away from the surgery. Watch out for side effects such as nausea, light- headedness, fatigue, hallucinations, or extra movements (dyskinesia). documented in this encounterDayton Va Medical Center08-07-2024 History of Present illness Narrative* Abby Pate MD - 03/11/2024 1:04 PM EDT Neurology Follow Up Note Subjective Soniya Cooley [...] is most consistent with Parkinson's Disease. He hasmotor features of tremor, mild left sided bradykinesia, [...] increase levodopa to 300 mg TID, add melatonin.08/2021 taper off levodopa without benefit. 12/2021 had [...] 1 tablet by mouth two times a day.180 tablet 1 carbidopa-levodopa (SINEMET 25-100) 25-100 mg [...] (FLONASE) 50 mcg/actuation nasal spray Use 1 Howard in each nostril once daily. Rinse mouth [...] (BD POSIFLUSH) 10 mL INTRAVENOUS DIRECTED PRN Shelby Mackey MD REVIEW OF SYSTEMS His ROS [...] Discussed with Patient: YES Abby Pate MD [facility] Neurology documented in this encounterDayton Va Medical Center07-23-2024 Telephone encounter Note * Telephone Encounter - Stacy Varghese RN - 02/25/2024 11:51 AM EDT Call placed to patient and notified of provider message below. Patient verbalizes understanding andwill continue taking Flomax. Stacy Varghese RN [facility]07-23-2024 Miscellaneous Notes* Telephone Encounter - Stacy Varghese RN - 02/25/2024 11:51 AM EDT Call placed to patient and notified of provider message below. Patient verbalizes understanding andwill continue taking Flomax. Stacy Varghese RN * Telephone Encounter - Zina Duran APRN.RECOVERY ASSISTANT - 02/25/2024 8:09 AM EDT Please let patient know it can take 2-6 weeks for medication to become effective. * Telephone Encounter - Autumn Mares MA - 02/24/2024 4:36 PM EDT Spoke to patient and . Pt states he is taking the Flomax and he is urinating more than before he started the medication. Autumn Mares MA * Telephone Encounter - Zina Duran APRN.CNP - 02/24/2024 4:32 PM EDT Is patient currently taking flomax? If he has not started medication he may start it. If he is taking it is he going more or less than before starting medication? * Telephone Encounter - Jessica Brown LPN - 02/24/2024 4:20 PM EDT Pt and call to report at [facility]: [...] night. Jessica Brown LPN documented in this encounterDayton Va Medical Center07-23-2024 Telephone encounter Note * Telephone Encounter - Zina Duran APRN.CNP - 02/25/2024 8:09 AM EDT Please let patient know it can take 2-6 weeks for medication to become effective. [facility] Work Phone: [phone]) 820-367907-22-2024 Telephone encounter Note* Telephone Encounter - Autumn Mares MA - 02/24/2024 4:36 PM EDT Spoke to patient and . Pt states he is taking the Flomax and he is urinating more than before he started the medication. Autumn Mares MA [facility]07-22-2024 Telephone encounter Note* Telephone Encounter - Zina Duran APRN.NIGHAT - 02/24/2024 4:32 PM EDT Is patient currently taking flomax? If he has not started medication he may start it. If he is taking it is he going more or less than before starting medication? [facility]07-22-2024 Telephone encounter Note* Telephone Encounter - Jessica Brown LPN - 02/24/2024 4:20 PM EDT Pt and call to report at [facility]: [...] much sleep at night. Jessica Brown LPN [facility]07-17-2024 Note Discharge Instructions Thank you for allowing [facility] to assist you with your healthcare needs. The following is importantdischarge information regarding your hospital visit. Your Care Team Dr Dean Caldwell Your Diagnosis CAD (coronary artery disease) DVT (deep venous thrombosis) Hypertension Hypothyroidism Parkinson's disease Postoperative hypoxia Status post total left knee replacement What to do next Follow Up Appointments Follow Up with ONIEL FRANCIS When:Only if needed Where:[address] [place] [address]- Business (1) Follow Up with CHRIS COX When:In 2 weeks Where:[facility] [address] [place] [address] [place] [address]- Business (1) Someone Will Contact You Regarding These Home Health Referrals No home referrals have been ordered for you. No one will call you. Allergies Contrast dye Hypotension penicillin Rash Medications Please ask your primary doctor or pharmacist before taking any other medication not listed, including over the counter drugs, herbal medications, vitamins and or supplements as they may interact withyour home medications. What How Much When Why Instructions Last Dose New acetaminophen (acetaminophen 500 mg oral capsule) 2 cap by mouth Three (3) times a day as needed for for pain not to exceed 3000 mg/ day Pickup at [facility]/pharmacy #3321 New docusate-senna (Senokot S) 2 tab(s) by mouth Two (2) times a day Take until first bowel movement, then as needed New famotidine (Pepcid 20 mg oral tablet) 1 tab(s) by mouth Once a day Pickup at [facility]/pharmacy #3321 New oxyCODONE (oxyCODONE 5 mg oral tablet ( IMMEDIATE release )) See instructions Status post total left knee replacement 1-2 tab(s) Oral q4h, As needed for as needed for pain Pickup at [facility]/pharmacy #3321 New rivaroxaban (Xarelto 10 mg oral tablet) 1 tab(s) by mouth Once a day Status post total left knee replacement 1 tablet daily for 2 weeks postoperatively due to past history of DVT Pickup at [facility]/pharmacy #3321 Unchanged acetaminophen-diphenhydramine (Tylenol PM Extra Strength [...] by mouth Once a day Pharmacy Information [facility]/pharmacy #3321: [address] [place], [place] [id number] [phone] Please take this list to your next doctor s visit. Bring all medications you take, including over the counter medications, herbals and other supplements with you to your doctor s visit. Patients and families are reminded to discard old lists and to update any records with all medication providers or retail pharmacies. Education Materials [facility] Post-operative Instructions PLEASE FOLLOW [facility] POST-OP INSTRUCTIONS GIVEN WATCH FOR SIGNS OF INFECTION: call the office ([phone]) if experencing any of the following: (Usually [...] on your follow up instructions. Form: 338A (43185) R: 12/09 Additional Information VACCINATE! IT SAVES LIVES! Members of the community who have not yet received the COVID-19 vaccine and would like to receive it can visit one of [place] vaccine clinics. There are many vaccine clinic locations within the State. For locations and available times, please visit https://gettheshot.coronavirus.[place].gov/. It is important to note that some COVID mobile vaccine clinics are held outdoors and may be canceled in rainy or stormy conditions. To learn more about pediatric vaccinations (ages 5-11), we invite you to visit the [facility] webpage. [email or web address]://www.[email or web address]/[email or web address]-Khtgbitnhi-Xuumb-[email or web address] stions.htmlTo learn more about the COVID-19 vaccine, we invite you to visit the CDC website for a list of frequently asked questions.https://www.cdc.gov/coronavirus/2019-ncov/vaccines/faq.html [facility] Patient Portal Access Instructions: Stay connected with your healthcare team and access your personal medical information anytime with the [facility] Patient Portal. Please follow the directions below to create your [facility] account: 1.Access the email account you provided upon registration to the hospital/physician office.2.Look for an invitation email from [facility].3.Open the email and access the invitation link: AcceptInvitation to [facility].4.Fill in the required freeman to create your account. To access your account, visit [email or web address]. Click the blue button labeled Access Patient Portal and then log in with the username and password that you created in the steps above. You will be able to view your test results, lab results, a summary of your visits, upcoming appointments and more. There is also a convenient messaging option where you can send secure messages to your p rovider. In addition, you will have the ability to download any documents or summaries to your computer and/or send the information securely to a physician. Remember that your healthcare information is confidential, so carefully consider who you will allowto register on the [facility] Patient Portal for access to your information. You can also access the [facility] Patient Portal on the [facility] marti. Simply click on Patient Portal and then log into your account. If you would like to receive a full copy of your medical records, please contact the [facility] Medical Records Department by calling [phone], Saturday through Saturday between 8 a.m. and 4:30 p.m. HOW TO SAFELY DISPOSE OF PRESCRIPTION MEDICATIONS Please use one of the following methods to safely dispose of your unused medications. 1.Use a drug disposal kit: the drug disposal pouch allows you to safely discard your old and unuseddrugs. Ask your nurse to give you one when you are discharged.2.Visit a local take-back location: Many local pharmacies and police departments have programs that collect old and unwanted prescriptiondrugs. Call your local pharmacy or go to http://[employer].[facility]/5C7Ws1f to find one close to you.3.Make use of household items: Use cat litter or old coffee grounds to dispose medications if other options arenot available. Mix your drugs with these household products, seal them in an airtight container andthrow it into the garbage. Call [facility]: [phone] to be sure your drugs can be [...] a CHART COPY. Signatures Patient Education Materials 5 - [facility] Post-op Instruction 03/2017 (42725) Medication Leaflets My discharge plan and instructions have been reviewed and explained to me and I,SONIYA COOLEY understand my current condition and have read and understand these discharge instructions. I have received a written copy of the plan/instructions. If I have questions, I am aware that I should contact my doctor. Patient/Medical Assistant Internal Medicine Signature: Date/Time: Relationship to Patient: Witness Name/Signature: Date/Time: [facility]07-17-2024 Note Date of Service February 19, 2024 [...] part. 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 Also has history of Parkinson's. He is doing very well from pain standpoint at this time. Plan is for patient to go home when medically stable. [facility] Objective Vitals [...] currently 13.6, afebrile. Patient did receive decadron intra-operatively.No clinical signs of infection. 7. Encouraged incentive [...] is adequately controlled. Case was discussed with medicineand plan will be to get patient out of bed up and moving. Recommended incentive spirometer. As longas patient is able to wean off of oxygen plan will be for discharge home today. I did suggest to the patient to have discussion with primary care physician for appropriate workup for possible sleep apnea. He did voiced understanding. Patient would like his prescriptions E scribed to [facility] in [facility]. He has outpatient physical therapy established. He will follow-up per postoperative instructions. Upon discharge he will contact our office with any concerns or questions. I have reviewed the [place] Automated Rx Reporting System (OARRS) report for this patient for refill pattern and other prescriber involvement as part of the appropriate surveillance for the provision ofacute and chronic controlled medications. The report was requested and reviewed on the date of thisentry, and was considered in the prescribing process This dictation was created using voice recognition software. Phonetic and/or grammatical errors mayexist. Digitally Signed by CHRIS COX PA-C on 02/19/2024 08:40 AM [facility]07-17-2024 Hospital Discharge instructions Patient Education 02/19/2024 08:40:59 5 - [facility] Post-op Instruction 03/2017 (07007) [facility] Post-operative Instructions PLEASE FOLLOW [facility] POST-OP INSTRUCTIONS GIVEN WATCH FOR SIGNS OF INFECTION: call the office ([phone]) if experencing any of the following: (Usually [...] on your follow up instructions. Form: 338A (45200) R: 12/09 Follow Up Care 01/09/2024 07:46:38 With:ONIEL FRANCIS Address: [address] [place] [address]- Business (1) When: only if needed With:CHRIS COX Address: [facility] [address] [place] [address]- Business (1) When:Within 2 Week(s) [facility] 07-17-2024 Note Date of Service February 19, 2024 [...] part. 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 Also has history of Parkinson's. He is doing very well from pain standpoint at this time. Plan is for patient to go home when medically stable. [facility]. Objective Vitals [...] currently 13.6, afebrile. Patient did receive decadron intra-operatively.No clinical signs of infection. 7. Encouraged incentive [...] is adequately controlled. Case was discussed with medicineand plan will be to get patient out of bed up and moving. Recommended incentive spirometer. As longas patient is able to wean off of oxygen plan will be for discharge home today. I did suggest to the patient to have discussion with primary care physician for appropriate workup for possible sleep apnea. He did voiced understanding. Patient would like his prescriptions E scribed to [facility] in [facility]. He has outpatient physical therapy established. He will follow-up per postoperative instructions. Upon discharge he will contact our office with any concerns or questions. I have reviewed the [place] Automated Rx Reporting System (OARRS) report for this patient for refill pattern and other prescriber involvement as part of the appropriate surveillance for the provision ofacute and chronic controlled medications. The report was requested and reviewed on the date of thisentry, and was considered in the prescribing process This dictation was created using voice recognition software. Phonetic and/or grammatical errors may exist. Digitally Signed by CHRIS COX PA-C on 02/19/2024 08:40 AM [facility]07-16-2024 Note ORIGINAL EXAMINATION: TWO XRAY VIEWS OF [...] Sign Date: 02/18/2024 3:48:22 PM Ordering Provider: [facility]07-16-2024 Anesthesiology Consult note Patient: SONIYA COOLEY Age: 83 years Sex: Male : 1940 Associated Diagnoses: None Author: HUSEYIN ANGELO BUCKLE INSPECTOR-OCEANOGRAPHIC METEOROLOGIST Preoperative Information Time of last food or [...] 0.3 mg 25 mg 5 mL, Other, [facility] ropivacaine 25 mg + ketorolac 15 mg + morphine 2.5 mg + epinephrine 0.3 mg 25 mg 5 mL, Other, [facility] tranexamic acid 2,000 mg 20 mL, Topical [...] or recorded. Procedure history: Arthroplasty of knee ([id number]) on 02/18/2024 at 83 Years. 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 Tonsillectomy and adenoidectomy ([id number]). Colonoscopy (301959743). Cholecystectomy (43103138). CABG x 4 - Coronary artery bypass grafts x 4 ([id number]). Social History: Social & Psychosocial Habits Alcohol [...] Signs (last 24 hrs) Last Charted Temp Mxebvdic21.6 DegC (FEB 17 11:01) Heart Rate Glgwjguir17 bpm (FEB 17 13:55) ZIK572 mmHg (FEB 17 13:55) DBP59 mmHg (FEB 17 13:55) Measurements from flowsheet : Measurements 02/18/2024 11:01 EDT Height 170.2 cm Admission Weight 88 kg [place] Body Weight 66.12 kg Admission Body Mass [...] Integrity Intact/Dry 02/18/2024 13:19 EDT SN - [place] - Medication SODIUM CHLORIDE 0.9% 43.95ML SN - [place] - Medication SODIUM CHLORIDE 0.9% 43.95ML SN - [place] - Medication SODIUM CHLORIDE 0.9% 50ML SN - [place] - Route of Administration Local SN - [place] - Route of Administration Local SN - [place] - Route of Administration Topical SN - [place] - By (Single) SN - [place] - By (Single) SN - [place] - By (Single) SN - [place] - By (Single) SN - [place] - By (Single) SN - [place] - By (Single) 02/18/2024 13:16 EDT SN [...] Surgeon SN - CAt - Role Performed Fashion Show Director 1 SN - CAt - Role Performed Scrub 1 SN - CAt - Role Performed Scrub 1 SN - CAt - Role Performed Telephone Ad Taker 1 SN - CAt - Role Performed OCEANOGRAPHIC METEOROLOGIST SN - CAt - Role Performed Food Service Specialist SN - CAt - Role Performed Food Service Specialist SN - CAt - Role Performed Physician Product Trainer 02/18/2024 12:41 EDT citric acid-sodium citrate Not [...] Height 170.2 cm Admission Weight 88 kg [place] Body Weight 66.12 kg Admission Body Mass [...] Quadrants Present Skin Temperature Warm Skin Description [place] Skin Integrity Intact Mucous Membrane Color [place] Skin Moisture General Dry Neurological Symptoms Patient [...] EDT Designated Person #1 We May Share [facility] [phone] Designated Person #1 Relationship Spouse Privacy Restrictions Requested None Status N/A Sensory Deficits None Sleep Apnea Snore Yes Sleep Apnea Tired Yes Sleep Apnea Obstruction No Sleep Apnea Pressure Yes Sleep Apnea BMI No Sleep Apnea Age Yes Sleep Apnea Neck No Sleep Apnea Gender Yes Sleep Apnea Score 5 HI Diagnosed With Sleep Apnea No Advanced Directives Yes Advance Directive Type [place] Durable Power of Collect On Delivery Clerk for [facility] [place], [place] Declaration (Living Will) Advance Directive Location Indicates that [facility] has been given copy Infectious Disease Symptoms [...] Method Explanation, Printed materials Preferred Spoken Language Ugandan Preferred Written Language Ugandan Teaching Evaluation Verbalizes/Nonverbally indicates understanding Total Joint Book Given Yes Safety Brochure Information Reviewed Unable to complete aGdiel Wade Video Viewed No Information Given by Patient [...] Allergies Yes Anesthesia Extension Set Applied Yes Shell Trim Operator On Yes Consent Form Signed Yes [...] Intake 02/17/2024 22:00 . Assessment and Plan [place] Society of Anesthesiologists (ASA) physical status classification: Class III. Anesthetic Preoperative Plan Premedication: intravenous. Anesthetic technique: Spinal. Induction: intravenously. Maintenance airway: 40%. Regional: Adductor Canal Block. Postoperative pain management: Per surgeon. Informed consent: signed by patient. Digitally Signed by HUSEYIN ANGELO on 02/18/2024 02:08 PM [facility]07-10-2024 Telephone encounter Note* Telephone Encounter - Shae Morrissey LPN - 02/12/2024 4:11 PM EDT Katia calling from [facility], pt is there for a pre op appt. Requesting last 2 chest xrays. Xrays from 12/14/23 & 01/31/24 faxed to [phone]. Shae Morrissey LPN [facility]07-10-2024 Miscellaneous Notes* Telephone Encounter - Shae Morrissey LPN - 02/12/2024 4:11 PM EDT Katia calling from [employer] [facility], pt is there for a pre op appt. Requesting last 2 chest xrays. Xrays from 12/14/23 & 01/31/24 faxed to [phone]. Shae Morrissey LPN documented in this [facility]Day[facility] Instructions* Patient Instructions* Ella Valdovinos PA-C - 02/10/2024 10:18 AM [...] review all the medicines you take, even zfzi-fng-wmbxipa medicines. As you get older, the way medicines work in your body can change. Some medicines, or combinations of medicines, can make you sleepy or dizzy andcan cause you to fall. 3. Have your [...] have certain medical conditions. documented in this encounterDay[facility] History of Present illness Narrative* Ella Valdovinos PA-C - 02/10/2024 9:55 AM EDT Images from the original note were not [...] aortic valve, Excellent quality and flow in LLAONS and good size LAD target Plan: ASA Aortic valve replaced 11/13/2005 Aortic, was placed on coumadin per cardio due to US showing a build up on the bovine Valve, Startedin 12/2015 Aortic valve replaced 11/13/200510/2018 and anticoagulation [...] Yes Statins: Lipitor 40mg started 3-30, LFTs normal-continueon dc. 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 Rinse mouth [...] Abs Lymph 1.00 - 4.00 k/uL 3.12 Tensas% % 9.5 Abs Tensas <0.87 k/uL 0.68 Eosin% % 5.6 Abs Eosin <0.46 k/uL 0.40 Baso% % 0.6 Abs Baso <0.11 k/uL 0.04 Immature Gran % % 0.3 IMMATURE GRANS (ABS) <0.10 k/uL <0.03 NRBC /100 WBC 0.0 Absolute nRBC <0.01 k/uL <0.01 DTYPE Auto Color Yellow Yellow Clarity Clear Clear Glucose, Urine Negative Negative Bilirubin, Urine Negative Negative Ketones, Urine Negative Negative Specific [place], Ur 1.005 - 1.030 1.020 Hemoglobin/Blood,Ur Negative [...] aerobic exercise 9. Coronary 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[place] coronary artery of [place] heart without angina pectoris- ICD9: 414.01, ICD10: I25.10 Continue with cardio [...] which included preparing to see the patient, whhp-cr-dyqd patient care, completing clinical documentation, obtaining and/or reviewing separately obtained history, performing a medically appropriate examination, counseling and educating the pat ient/family/caregiver, ordering medications, tests, or procedures, and communicating results to thepatient/family/caregiver. 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 Patient verbalizes understanding. Stacy Varghese RN [facility]07-03-2024 Miscellaneous Notes* Telephone Encounter - Stacy Varghese RN - 02/05/2024 8:33 AM EDT Patient calls and notified of results. Patient verbalizes understanding. Stacy Varghese, RN * Telephone Encounter - Prudencio Barlow MA - 02/04/2024 11:15 AM EDT Left additional message for patient to contact office. Prudencio Barlow MA * Telephone Encounter - Keren Sykes LPN - 02/03/2024 3:00 PM EDT Left message for pt to contact office. Keren Sykes LPN * Telephone Encounter - Ella Valdovinos PA-C - 02/03/2024 2:14 PM EDT Repeat CXR is normal. Ella Valdovinos PA-C documented in this encounterDayton [facility] Center07-02-2024 Telephone encounter Note * Telephone Encounter - Prudencio Barlow MA - 02/04/2024 11:15 AM EDT Left additional message for patient to contact office. Prudencio Barlow MA [facility]07-01-2024 Telephone encounter Note* Telephone Encounter - Keren Sykes LPN - 02/03/2024 3:00 PM EDT Left message for pt to contact office. Keren Sykes LPN [facility]07-01-2024 Telephone encounter Note* Telephone Encounter - Ella Valdovinos PA-C - 02/03/2024 2:14 PM EDT Repeat CXR is normal. Ella Valdovinos PA-C [facility]06-28-2024 History of Present illness Narrative* Kerri Saenz RT(R) - 01/31/2024 8:10 AM EDT Radiology Service Progress Note PATIENT NAME: Soniya Cooley DATE OF SERVICE: January 31, 2024 TIME: 8:11 AM PATIENT IDENTITY VERIFICATION COMPLETED USING TWO (2) IDENTIFIERS: Name and Date of confirmedby patient verbally. FALL SCREENING: Has the patient had 2 falls in the last year or 1 fall with injury or currently using an Ambulatory Assistive Device (Walker, Cane, Wheelchair, Crutches, etc.)? No PATIENT GENDER DATA: Male PATIENT RELEVANT IMPLANT DATA REVIEWED: Not Applicable PATIENT PRESENTS WITH AN IMPLANTABLE OR ATTACHED LIFE SKILLS COORDINATOR VOLUNTEER: No RADIOLOGY DEPARTMENT: General X-ray: Exam(s) Completed: Chest X-Ray PERIPHERAL IV DATA: Not applicable SIGNED BY: RT Teresa(R) January 31, 2024 8:11 AM documented in this encounterDayton Va Medical Center06-24-2024 Note ORIGINAL EXAMINATION: CT OF THE LEFT [...] Sign Date: 01/27/2024 1:37:20 PM Ordering Provider: [facility]05-28-2024 Instructions* Patient Instructions* Oniel Francis MD - 12/31/2023 11:44 AM EDT Come in to get the repeat chest x-ray on or after 01/17/2024 along with labs and urine test. You do not need to fast. documented in this encounterDayton Va Medical Center05-28-2024 History of Present illness Narrative* Oniel Francis MD - 12/31/2023 10:51 AM EDT Chief Complaint Patient presents with: Follow Up [...] a build up on the bovine Valve, Startedin 12/2015 Aortic valve replaced 11/13/200510/2018 and anticoagulation [...] Yes Statins: Lipitor 40mg started 3-30, LFTs normal-continueon dc. Elevated fasting blood sugar 06/19/2016 Essential [...] Heart Disease Brother Hyperlipidemia Sister PTCA/PCI other ([place]) Sister Cancer Brother prostate cancer other ([place]) Brother Hyperlipidemia Child Hyperlipidemia Child Patient Allergies ALLERGIES Allergen Reactions Iodine Other: See Comments ?decreased BP with iodinated contrast during a cardiac cath. Pt reports he was told by the white goods appliance tech that they almost lost him due to [...] (FLONASE) 50 mcg/actuation nasal spray Use 1 Howard in each nostril once daily. Rinse mouth [...] Data reviewed Results XR CHEST 2V FRONTAL/LAT (Acc#[id number]) (Order [id number]) Patient Info Patient Name Sex Soniya Camacho ([id number]) Male 1940 12/14/2023 1:34 PM - Radiology, [place] In Impression IMPRESSION: Questionable vague hazy opacity in the left midlung. Consider short-term follow-up. Eeg Technician: PSCB Transcribe Date/Time: Dec 14 2023 1:30P [...] needed. Oniel Francis MD documented in this encounterDayton Va Medical Center05-20-2024 History of Present illness Narrative* Marj Mackey MD - 12/23/2023 3:40 PM EDT Images from the original note were not included. [facility] SECTION OF REGIONAL CARDIOLOGY Cardiology ([place]) [address] [facility] [id number] OUTPATIENT VISIT DATE 12/23/2023 PRIMARY CARE PHYSICIAN: Oniel Francis [address] [place] [address] HISTORY OF PRESENT ILLNESS: Mr. Cooley is [...] hypertension, dyslipidemia. He presents the office for routinefollow-up. He is considering knee replacement surgery. Patient has been doing well from a functional standpoint. He has not had symptoms of chest pain or pressure. He does well from with ambulation and denies symptoms of shortness of breath or dyspnea on exertion. He has not had symptoms concerningfor CHF including PND, orthopnea, or lower extremity [...] a build up on the bovine Valve, Startedin 12/2015 Aortic valve replaced 11/13/200510/2018 and anticoagulation [...] Yes Statins: Lipitor 40mg started 3-30, LFTs normal-continueon dc. Elevated fasting blood sugar 06/19/2016 Essential [...] Pt reports he was told by the white goods appliance tech that they almost lost him due to [...] fluticasone (FLONASE) 50 mcg/actuation nasal spray^Use 1 Howard in each nostril once daily. Rinse mouth [...] S1, S2 with regular rate and rhythm. [place] aortic valve sounds noted. CARDIOVASCULAR MEDICINE TESTING: [...] 0.85 which was hemodynamically significant. Impressions: Severe [place] multivessel CAD Patent Bypass grafts Echocardiogram [facility] 01/08/2020 Normal LV size, mild concentric left [...] There is mild concentric left ventricular hypertrophy. Leftventricular systolic function is normal. EF = 59 [...] AND RECOMMENDATIONS: 1. Coronary 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[place] coronary artery of [place] county heart without angina pectoris- ICD9: 414.01, ICD10: I25.10 (primary diagnosis) Patient [...] surgery. Marj Mackey MD documented [facility]Day[facility] Telephone encounter Note * Telephone Encounter - Michelle Herring RN - 12/17/2023 11:46 AM EDT Patient's scheduled for appointment on 12/31/2023. Michelle Herring RN [facility]05-14-[facility]24 Miscellaneous Notes* Telephone Encounter - Michelle Herring RN - 12/17/2023 11:46 AM EDT Patient's scheduled for appointment on 12/31/2023. Michelle Herring RN * Telephone Encounter - Prudencio Barlow MA - 12/17/2023 9:04 AM EDT Left message for patient to contact office. Prudencio Barlow MA * Telephone Encounter - Oniel Francis MD - 12/16/2023 10:04 PM EDT Needs f/u in 3 weeks within [facility] for f/u pneumonia and repeat chest x-ray to see if vague hazy opacity in left mid lung has resolved. documented in this encounterDayton [facility]05-14-2024 Telephone encounter Note * Telephone Encounter - Prudencio Barlow MA - 12/17/2023 9:04 AM EDT Left message for patient to contact office. Prudencio Barlow MA [facility]05-13-2024 Telephone encounter Note* Telephone Encounter - Oniel Francis MD - 12/16/2023 10:04 PM EDT Needs f/u in 3 weeks within [facility] for f/u pneumonia and repeat chest x-ray to see if vague hazy opacity in left mid lung has resolved. [facility] History of Present illness Narrative* Damián Lynn RT(R) - 12/14/2023 11:40 AM EDT Radiology Service Progress Note PATIENT NAME: Soniya Cooley DATE OF SERVICE: December 14, 2023 TIME: 11:44 AM PATIENT IDENTITY VERIFICATION COMPLETED USING TWO (2) IDENTIFIERS: Name and Date of confirmedby patient verbally. FALL SCREENING: Has the patient had 2 falls in the last year or 1 fall with injury or currently using an Ambulatory Assistive Device (Walker, Cane, Wheelchair, Crutches, etc.)? No PATIENT GENDER DATA: Male PATIENT RELEVANT IMPLANT DATA REVIEWED: Not Applicable PATIENT PRESENTS WITH AN IMPLANTABLE OR ATTACHED LIFE SKILLS COORDINATOR VOLUNTEER: No RADIOLOGY DEPARTMENT: General X-ray: Exam(s) Completed: Chest X-Ray PERIPHERAL IV DATA: Not applicable SIGNED BY: RT Marjorie(R) December 14, 2023 11:44 AM documented in this encounterDayton [facility] Center05-11-2024 History of Present illness Narrative* Eva Barlow APRN.RECOVERY ASSISTANT - 12/14/2023 11:31 AM EDT CC: Patient presents with: Cough: Congestion and [...] a build up on the bovine Valve, Startedin 12/2015 Aortic valve replaced 11/13/200510/2018 and anticoagulation [...] Yes Statins: Lipitor 40mg started 11-01, LFTs normal-continueon dc. Elevated fasting blood sugar 06/19/2016 Essential [...] fluticasone (FLONASE) 50 mcg/actuation nasal spray^Use 1 Howard in each nostril once daily. Rinse mouth [...] Heart Disease Brother Hyperlipidemia Sister PTCA/PCI other ([place]) Sister Cancer Brother prostate cancer other ([place]) Brother Hyperlipidemia Child Hyperlipidemia Child Social History [...] in the left midlung. Consider short-term follow-up. Eeg Technician: GEOFFREY Transcribe Date/Time: Dec 14 2023 1:30P [...] symptoms occur. Patient agreeable to treatment plan. Eva Barlow APRN.NIGHAT documented in this encounterDayton [facility]04-09-2024 History of Present illness Narrative* Lelia Soni MA - 11/12/2023 3:16 PM EDT POPULATION HEALTH NAVIGATION OUTREACH Action/ Contacted patient to schedule [place] Annual Wellness Visit, care gaps and HCCs due. 1st attempt: Left message with my direct number 2nd attempt: My Chart message sent Reason for Outreach Care Gap/HCC or Scheduling Wellness Visits Care Gaps due: Medicare Annual Wellness Visit Patient Contacted: Unable or unnecessary to reach patient: Left message EverPresenthart message sent HCC related Navigation Signature: Lelia Soni MA November 12, 2023 3:16 PM documented in this encounterDayton [facility] Center02-07-2024 Instructions* Patient Instructions* Abby Paet MD - 09/11/2023 2:08 PM EST Continue the same dose of medication today, consider compressing the times to every 5 hours. Try to stay physically active, consider stationary bike if it doesn't trigger too much pain. Ask your doctor about medications for urination overnight. Continue the miralax for constipation. documented in this encounterDayton [facility] Center02-07-2024 History of Present illness Narrative* Abby Pate MD - 09/11/2023 1:56 PM EST Neurology Follow Up Note Subjective Soniya Cooley [...] levodopa to 300 mg TID, add melatonin. 08/2021taper off levodopa without benefit. 12/2021 had increased to 300 TID, no change. 06/2022 try 250 TIDwith mild dyskinesia. HPI Current Issues 1. PD [...] Take 1 tablet by mouth twice daily. 180tablet 1 mometasone (ELOCON) 0.1 % cream Apply [...] (FLONASE) 50 mcg/actuation nasal spray Use 1 Howard in each nostril once daily. Rinse mouth [...] (BD POSIFLUSH) 10 mL INTRAVENOUS DIRECTED PRN Shelby Mackey MD REVIEW OF SYSTEMS His ROS [...] rigidity. There is minimal oral dyskinesia during RAMSonly. Coordination: Finger to nose is smooth without [...] Discussed with Patient: n/a Abby Pate MD [facility] Neurology documented in this encounterDayton [facility] Center11-20-2023 Instructions* Patient Instructions* Marj Mackey MD - 06/24/2023 4:28 PM EST We are ordering an echocardiogram and a carotid ultrasound documented in this encounterDayton Va Medical Center11-20-2023 History of Present illness Narrative* Marj Mackey MD - 06/24/2023 4:00 PM EST Images from the original note were not included. [facility] SECTION [facility] REGIONAL CARDIOLOGY Cardiology ([facility]) [address] [facility] [id number] OUTPATIENT VISIT DATE 06/24/2023 PRIMARY CARE PHYSICIAN: Oniel Francis [address] [place] [address] HISTORY OF PRESENT ILLNESS: Mr. Cooley is [...] a build up on the bovine Valve, Startedin 12/2015 Aortic valve replaced 11/13/200510/2018 and anticoagulation [...] Yes Statins: Lipitor 40mg started 3-30, LFTs normal-continueon dc. Elevated fasting blood sugar 06/19/2016 Essential [...] () Meniscus tear 12/27/2015 Right, minimal. Seen [place] [facility] Microscopic hematuria 01/10/2021 Saw [place] 02/2021 [...] Pt reports he was told by the white goods appliance tech that they almost lost him due to [...] (FLONASE) 50 mcg/actuation nasal spray Use 1 Howard in each nostril once daily. Rinse mouth [...] S1, S2 with regular rate and rhythm. [place] aortic valve sounds noted. CARDIOVASCULAR MEDICINE TESTING: Cardiac Catheterization August 2018 Findings: Left main Normal LAD 50% mid stenosis LCx (dominant) severe diffuse proximal disease RCA 100% mid occlusion (non-dominant per records) SVG to Diagonal, AV groove LCx, LPDA patent IFR of the 50% stenosis in the mid LAD was 0.85 which was hemodynamically significant. Impressions: Severe [place] multivessel CAD Patent Bypass grafts Echocardiogram [facility] 01/08/2020 Normal LV size, mild concentric left [...] AND RECOMMENDATIONS: 1. Coronary 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[place] coronary artery of [place] heart without angina pectoris- ICD9: 414.01, ICD10: I25.10 (primary diagnosis) Doing well without overt anginal symptoms. Some symptoms of shortness of breath. We will recheck anechocardiogram for LV function. May need to consider [...] SYRINGE Marj Mackey MD documented in this encounterDayton [facility] Center08-16-2023 Instructions* Patient Instructions* Abby Pate MD - 03/20/2023 12:03 PM EDT Lets keep things the same today. We could consider compressing the times of your doses to every 5 hours to try to reduce OFF time. Try to keep an eye on when you're feeling better or worse in comparison to medicine timing. Try to increase activitiy. documented in this encounterDayton Va Medical Center08-16-2023 History of Present illness Narrative* Abby Pate MD - 03/20/2023 11:34 AM EDT Neurology Follow Up Note Subjective Soniya Cooley [...] levodopa to 300 mg TID, add melatonin. 08/2021taper off levodopa without benefit. 12/2021 had increased to 300 TID, no change. 06/2022 try 250 TIDwith mild dyskinesia. HPI Current Issues 1. PD [...] Take 1 tablet by mouth twice daily. 180tablet 1 mometasone (ELOCON) 0.1 % cream Apply [...] (FLONASE) 50 mcg/actuation nasal spray Use 1 Howard in each nostril once daily. Rinse mouth [...] normal. Last dose levodopa 300 mg @ [id number], exam 1200. Mildly ON. Motor: Muscle bulk [...] Discussed with Patient: n/a Abby Pate MD [facility] Neurology documented in this encounterDayton Va Medical Center08-15-2023 Miscellaneous Notes* Telephone Encounter - Amy Garcia - 03/19/2023 9:28 AM EDT Pharmacy requesting refills as follows via ERAR: ROLAN: 06/18/2022 NOV: 03/20/2023 Requested Prescriptions Pending Prescriptions Disp Refills carbidopa-levodopa (SINEMET 25-100) 25-100 mg per tablet [Pharmacy Med Name: CARB/LEVO TAB 25-100MG] 810 tablet 2 Sig: TAKE 3 TABLETS 3 TIMES A DAY Please review and advise. Amy Garcia documented in this encounterDayton Va Medical Center05-10-2023 Miscellaneous Notes* Telephone Encounter - Ana Quigley - 12/12/2022 3:07 PM EDT Pt calling to let office know that [facility] ordered Meloxicam for him. He wanted to be sure it was ok to take with his other medications. Added to med list. No contraindications listed. I verified with change control manager. Ana Quigley documented in this encounterDayton Va Medical Center04-06-2023 Miscellaneous Notes* Telephone Encounter - Mayra Breaux LPN - 11/08/2022 9:18 AM EDT Patient has been identified by name and [...] you. Mayra Breaux LPN documented in this encounterDayton Va Medical Center04-05-2023 Miscellaneous Notes* Telephone Encounter - Zoe Madrid RN - 11/07/2022 3:56 PM EDT Patient called this nurse requesting clarification about possibly needing an echocardiogram. Patient reports understanding of plan of care that Dr. Mackey May consider repeat echocardiogram later this year. At 6 month follow up after this nurse reviewed MD note from appointment on 10/29/22. Zoe Madrid RN documented in this encounterDayton Va Medical Center03-27-2023 History of Present illness Narrative* Marj Mackey MD - 10/29/2022 11:00 AM EDT Images from the original note were not included. [facility] SECTION OF REGIONAL CARDIOLOGY Cardiology ([facility] [address]) [address] [facility] [id number] OUTPATIENT VISIT DATE 10/29/2022 PRIMARY CARE PHYSICIAN: Oniel Francis [address] [place] [address] HISTORY OF PRESENT ILLNESS: Mr. Cooley is [...] a build up on the bovine Valve, Startedin 12/2015 Aortic valve replaced 11/13/200510/2018 and anticoagulation [...] Yes Statins: Lipitor 40mg started 3-30, LFTs normal-continueon dc. 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 Rinse mouth [...] S1, S2 with regular rate and rhythm. [place] aortic valve sounds noted. CARDIOVASCULAR MEDICINE TESTING: Cardiac Catheterization August 2018 Findings: Left main Normal LAD 50% mid stenosis LCx (dominant) severe diffuse proximal disease RCA 100% mid occlusion (non-dominant per records) SVG to Diagonal, AV groove LCx, LPDA patent IFR of the 50% stenosis in the mid LAD was 0.85 which was hemodynamically significant. Impressions: Severe [place] multivessel CAD Patent Bypass grafts Echocardiogram [facility] 01/08/2020 Normal LV size, mild concentric left [...] AND RECOMMENDATIONS: 1. Coronary 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[place] coronary artery of [place] heart without angina pectoris- ICD9: 414.01, ICD10: I25.10 (primary diagnosis) Patient [...] TABLET Marj Mackey MD documented in this encounterDayton Va Medical Center12-14-2022 Miscellaneous Notes* Telephone Encounter - Moni Encarnacion - 07/18/2022 4:09 PM EST Pharmacy requesting refills as follows via ERAR: ROLAN: 06/18/22 NOV: not scheduled Requested Prescriptions Pending Prescriptions Disp Refills carbidopa-levodopa (SINEMET 25-100) 25-100 mg per tablet [Pharmacy Med Name: CARB/LEVO TAB 25-100MG] 810 tablet 2 Sig: TAKE 3 TABLETS 3 TIMES A DAY Please review and advise. Moni Encarnacion documented in this encounterDayton Va Medical Center11-22-2022 Miscellaneous Notes* Telephone Encounter - Stacy Varghese RN - 06/26/2022 10:35 AM EST Patient calls and notified of results and providers instructions. Patient verbalizes understanding. Stacy Varghese RN * Telephone Encounter - Keren Sykes LPN - 06/25/2022 12:47 PM EST Left message for pt to contact office. Keren Sykes LPN * Telephone Encounter - Oniel Francis MD - 06/25/2022 12:43 PM EST Let patient know his thyroid lab was ok. His A1c is still slightly elevated at 5.7% and has been stable at thi for the last 18 months Continue to try to reduce sugars, starches and carbs in diet. documented in this encounterDayton Va Medical Center11-18-2022 Instructions* Patient Instructions* Oniel Francis MD - 06/22/2022 9:16 AM EST Please get labs and urine test done on or after 12/07/2022 prior to your next visit. documented in this encounterDayton Va Medical Center11-18-2022 History of Present illness Narrative* Oniel Francis MD - 06/22/2022 8:40 AM EST Chief Complaint Cough/Runny Nose/Sore Throat HPI Soniya Cooley is a 81 year old male who presents here today for Cough/Runny Nose/Throat Symptoms started about a week sago. The sore throat has improved. Still has rhinorrhea and cough with slight yellow mucus. No hemoptysis. No ear pain, facial pain, gum pain. No shortness of breath orwheezing. No new body aches. No nausea, vomiting [...] a build up on the bovine Valve, Startedin 12/2015 Aortic valve replaced 11/13/200510/2018 and anticoagulation [...] Yes Statins: Lipitor 40mg started 3-30, LFTs normal-continueon dc. Elevated fasting blood sugar 06/19/2016 Essential [...] Synovial cyst of right popliteal space 01/28/2017 ER 01/2017: 3.5 x 1.1 CM Vitamin [...] Pt reports he was told by the white goods appliance tech that they almost lost him due to [...] (FLONASE) 50 mcg/actuation nasal spray Use 1 Howard in each nostril once daily. Rinse mouth [...] BP Cuff Size: Regular Adult) Pulse 60 Temp36.2 C (97.2 F) (Tympanic) Resp 18 Wt [...] Abs Lymph 1.00 - 4.00 k/uL 2.93 Tensas% % 9.2 Abs Tensas <0.87 k/uL 0.61 Eosin% % 2.0 Abs [...] check A1c 4. Coronary 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[place] coronary artery of [place] heart without angina pectoris- ICD9: 414.01, ICD10: I25.10 - clinically stable [...] 110 and patient is improved. Diagnosis would notchange Tx. Guidelines discussed. Requested Prescriptions Signed Prescriptions Disp Refills atorvastatin (LIPITOR) 80 mg tablet 90 tablet 1 Sig: Take 1 tablet by mouth once daily. F/u in 6 months extensive check CMP, TSH, Lipid, UA, A1c, CBC, B12, Vit D prior Oniel Francis MD documented in this encounterDayton Va Medical Center11-14-2022 History of Present illness Narrative* Abby Pate MD - 06/18/2022 3:09 PM EST VIRTUAL VISIT PROGRESS NOTE This is a [...] levodopa to 300 mg TID, add melatonin. 08/2021taper off levodopa without benefit. 12/2021 no changes. [...] Take 3 tablets by mouth three times daily.810 tablet 2 nitroglycerin sublingual (NITROQUICK) 0.4 mg [...] (FLONASE) 50 mcg/actuation nasal spray Use 1 Howard in each nostril once daily. Rinse mouth [...] full. Mild R>L rest tremor and bradykinesia. Thereis mild oral dyskinesia during FRANCISCO J only. [...] Discussed with Patient: YES Abby Pate MD [facility] Neurology documented in this encounterDayton Va Medical Center10-07-2022 Miscellaneous Notes* Telephone Encounter - Oniel Francis MD - 05/11/2022 5:03 PM EDT The following approved medication requests have been transmitted electronically. Requested Prescriptions Signed Prescriptions Disp Refills levothyroxine (SYNTHROID) 25 mcg tablet 90 tablet 1 Sig: Take 1 tablet by mouth once daily. Take on empty stomach. For thyroid. Authorizing Provider: ONIEL FRANCIS MD * Telephone Encounter - Prudencio Barlow MA - 05/11/2022 5:02 PM EDT Patient has been identified by name and [...] 06/2022 Last refill: 11/2021 documented in this encounterDayton Va Medical Center09-26-2022 Instructions* Patient Instructions* Marj Mackey MD - 04/30/2022 10:36 AM EDT We are adding Zetia 10 mg once per day Repeat fasting blood work in 3-4 months We are scheduling you for an ultrasound of the carotids documented in this encounterDayton Va Medical Center09-26-2022 History of Present illness Narrative* Marj Mackey MD - 04/30/2022 10:14 AM EDT Images from the original note were not included. [facility] SECTION OF REGIONAL CARDIOLOGY Cardiology ([facility]) [address] [facility] [facility] [phone] OUTPATIENT VISIT DATE 04/30/2022 PRIMARY CARE PHYSICIAN: Oniel Francis [address] [place] [address] REFERRING PHYSICIAN: SELF CHIEF COMPLAINT: Establish new [...] replacement in 2018 with a LLANOS graft LADand [place]ice[place] aortic valve replacement. He presents office [...] a build up on the bovine Valve, Startedin 12/2015 Aortic valve replaced 11/13/200510/2018 and anticoagulation [...] Yes Statins: Lipitor 40mg started 3-30, LFTs normal-continueon dc. 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 Rinse mouth [...] S1, S2 with regular rate and rhythm. [place] aortic valve sounds noted. CARDIOVASCULAR MEDICINE TESTING: Cardiac Catheterization August 2018 Findings: Left main Normal LAD 50% mid stenosis LCx (dominant) severe diffuse proximal disease RCA 100% mid occlusion (non-dominant per records) SVG to Diagonal, AV groove LCx, LPDA patent IFR of the 50% stenosis in the mid LAD was 0.85 which was hemodynamically significant. Impressions: Severe [place] multivessel CAD Patent Bypass grafts Echocardiogram [facility] 01/08/2020 Normal LV size, mild concentric left [...] AND RECOMMENDATIONS: 1. Coronary 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[place] coronary artery of [place] heart without angina pectoris- ICD9: 414.01, ICD10: I25.10 (primary diagnosis) Patient [...] December 2021 was reviewed. LDL cholesterol 85 mg/dL.I have added Zetia 10 mg daily to [...] TABLET Marj Mackey MD documented in this encounterDayton Va Medical Center09-19-2022 History of Present illness Narrative* Naun Monterroso MD - 04/23/2022 6:26 PM EDT Patient presents with: Pain (Elbow Pain): Possible [...] (FLONASE) 50 mcg/actuation nasal spray Use 1 Howard in each nostril once daily. Rinse mouth [...] Pt reports he was told by the white goods appliance tech that they almost lost him due to [...] hematoma, but often risk of infection outweighs benefitsof evacuation. Naun Monterroso MD documented in this encounterDayton Va Medical Center09-19-2022 History of Present illness Narrative* Dana Milligan RN - 04/23/2022 11:15 AM EDT 01 documented in this encounterDayton Va Medical Center07-18-2022 History of Present illness Narrative* Charan Roman APRN.NIGHAT - 02/19/2022 11:31 AM EDT Images from the original note were not included. Subjective HPI HPI Soniya Cooley is a 81 year old male who presents today for CC of tender bumps on body. Thisstarted 3 days ago, more coming. Has tried [...] a build up on the bovine Valve, Startedin 12/2015 Aortic valve replaced 11/13/200510/2018 and anticoagulation [...] Yes Statins: Lipitor 40mg started 3-30, LFTs normal-continueon dc. Elevated fasting blood sugar 06/19/2016 Essential [...] (FLONASE) 50 mcg/actuation nasal spray Use 1 Howard in each nostril once daily. Rinse mouth [...] other ([place]) Brother Hyperlipidemia Child Hyperlipidemia Child Social History [...] MG TABLET Agrees to plan Charan Roman APRN.NIGHAT documented in this encounterDayton Va Medical Center05-13-2022 Instructions* Patient Instructions* Abby Pate MD - 12/15/2021 3:52 PM EDT Continue the same dose of medication today. Continue to exercise as much as possible. Consider melatonin for dream enactment behavior - 5 mg a couple hours before bed for 2 weeks then increase to 10 mg if no improvement. documented in this encounterDayton Va Medical Center05-13-2022 History of Present illness Narrative* Abby Pate MD - 12/15/2021 3:31 PM EDT FOLLOW UP NOTE Subjective Soniya Cooley is a 81 year old male who presents for follow up. CC: PD Summary: Right-handed male with a history of CAD / s/p CABG and AVR, left carotid stenosis s/p CEA, and tremor who presents for evaluation of tremor. His examination demonstrates mild parkinsonianfeatures. His presentation is most consistent with Parkinson's Disease. He has motor features of tremor, mild left sided bradykinesia, and mild gait changes. He has mild hypomimia and hypophonia. 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 First visit 01/2020 taperoff primidone, start levodopa, encourage exercise, increase hydration but caution with cardiac disease, start miralax. 05/2020 increase levodopa to 150 mg TID, increase hydration, add miralax. 10/2020increase to 200 mg TID. 04/2021 increase levodopa [...] notice any difference with it. Not sure tookthat long. 0800 1200 17-1800 Cd/ld 25/100 3 [...] Take 3 tablets by mouth three times daily.810 tablet 2 nitroglycerin sublingual (NITROQUICK) 0.4 mg [...] (FLONASE) 50 mcg/actuation nasal spray Use 1 Howard in each nostril once daily. Rinse mouth [...] symmetric. Hearing is intact to conversation. There ismild hypomimia. There is mild hypophonia. There is [...] Discussed with Patient: n/a Abby Pate MD [facility] Neurology documented in this encounterDayton Va Medical Center04-06-2022 Miscellaneous Notes* Telephone Encounter - Keren Sykes LPN - 11/08/2021 2:25 PM EDT Pt notified of same and that rx's have lacie sent as requested. Keren Sykes LPN * Telephone Encounter - Ella Valdovinos PA-C - 11/08/2021 11:35 AM EDT Please let patient know to contact us for refills. Prescription sent Ella Valdovinos PA-C * Telephone Encounter - Merry Sanchez - 11/07/2021 3:19 PM EDT Please send both medications to mail order pharmacy, [facility]. The pharmacy has been trying to reach the office with no reply. documented in this encounterDayton Va Medical Center06-08-2021 History of Past illness Narrative* Problem Noted [...] of this encounter (statuses as of 03/19/2023) [facility] of Past illness Narrative* Problem Noted Date Diagnosed Date Resolved Date Other proteinuria 01/10/2021 12/25/2022 Overview: 24 hr patient 01/2021 normal, Tremor 12/11/2019 01/14/2020 Acute deep vein thrombosis ( DVT) of distal vein of lower extremity 04/20/2019 01/14/2020 Stress hyperglycemia 10/29/2018 03/ 019 Overview: History: No h/o DM. Assessment: [...] of this encounter (statuses as of 03/21/2023) [facility] of Past illness Narrative* Problem Noted [...] of this encounter (statuses as of 06/25/2023) [facility] illness Narrative* Problem Noted [...] of this encounter (statuses as of 09/12/2023) [facility] illness Narrative* Problem Noted Date Diagnosed Date Resolved Date Other proteinuria 01/10/2021 12/25/2022 Overview: 24 hr patient 01/2021 normal, Tremor 12/11/2019 01/14/2020 Acute deep vein thrombosis ( DVT) of distal vein of lower extremity 04/20/2019 01/14/2020 Stress hyperglycemia 10/29/2018 03// 019 Overview: History: No h/o DM. Assessment: [...] of this encounter (statuses as of 11/13/2023) [facility]03-[facility] NoteHNO ID: [id number] Author: Abby Pate Service: ? Author Type: [...] (FLONASE) 50 mcg/actuation nasal spray Use 1 Howard in each nostril once daily. Rinse mouth [...] OFF ON MDS-UPDRS TIME of UPDRS - 46186 MDS-UPDRS TIME OF LAST MEDICATION - 60113 MDS-UPDRS LAST MEDICATION TAKEN - cd/ld 25/100 mg 1.5 tabs MDS (more content not included)...[facility]2020 NoteHNO ID: [id number] Author: Abby Pate Service: ? Author Type: [...] (FLONASE) 50 mcg/actuation nasal spray Use 1 Howard in each nostril once daily. Rinse mouth [...] content not included)...[facility] NoteHNO ID: [id number] Author: Abby Pate Service: ? Author Type: [...] with shaking towards end of her life. [place] and [place] background. He endorses some difficulty with manual [...] (FLONASE) 50 mcg/actuation nasal spray Use 1 Howard in each nostril once daily. Rinse mouth [...] Pt reports he was told by the [employer] appliance tech that they almost lost him due to [...] of this encounter (statuses as of 11/08/2021) [facility] History of Past illness Narrative* [...] of this encounter (statuses as of 12/01/2021) [facility] History of Past illness Narrative* [...] of this encounter (statuses as of 12/15/2021) [facility] History of Past illness Narrative* [...] of this encounter (statuses as of 02/19/2022) [facility] History of Past illness Narrative* [...] of this encounter (statuses as of 04/23/2022) [facility] History of Past illness Narrative* [...] of this encounter (statuses as of 04/23/2022) [facility] History of Past illness Narrative* [...] of this encounter (statuses as of 04/30/2022) [facility] History of Past illness Narrative* [...] of this encounter (statuses as of 05/11/2022) [facility] History of Past illness Narrative* [...] of this encounter (statuses as of 05/23/2022) [facility] History of Past illness Narrative* [...] of this encounter (statuses as of 06/24/2022) [facility] History of Past illness Narrative* [...] of this encounter (statuses as of 06/24/2022) [facility] History of Past illness Narrative* [...] of this encounter (statuses as of 06/26/2022) [facility] History of Past illness Narrative* [...] of this encounter (statuses as of 07/18/2022) [facility] History of Past illness Narrative* [...] Seasonal allergies 12/17/2016 01/14/2020 Overview: Sees Dr. Ekta Colon cancer screening 12/17/2016 0 Family history [...] of this encounter (statuses as of 10/29/2022) [facility] History of Past illness Narrative* [...] of this encounter (statuses as of 11/08/2022) [facility] History of Past illness Narrative* [...] of this encounter (statuses as of 11/08/2022) [facility] History of Past illness Narrative* [...] of this encounter (statuses as of 12/13/2022) [facility]-01[facility]2019 Evaluation note* Diagnosis Onset Date Resolution Status Admit Date Stroke-like symptoms acute January 19, 2025 6:07am Essential hypertension chronic Ju ne 2024 6:07am H/O aortic valve replacement October, chroni c January 19, 2025 6:07am Hyperlipidemia chronic January 19, 2025 6:07am H/O coronary artery bypass surgery October, resolved January 19, 2025 6:07am [facility] Work Phone: 1(844) 350-945003-01-2019 Evaluation note* Diagnosis Onset Date Resolution Status Admit Date H/O coronary artery bypass surgery October, resolved January 19, 2025 6:07am Essential hypertension inactive Ju ne 2024 6:07am H/O aortic valve replacement October, inacti ve January 19, 2025 6:07am Hyperlipidemia inactive January 19, 2025 6:07am Parkinson's disease inactive January 19, 2025 6:07am Stroke-like symptoms inactive January 19, 2025 6:07am [facility] Work Phone: Discharge summary Author Leti Lu [facility] Note Date/Time January 19, 2025 6:12 pm [facility] Medical Records Department [address] [place] [address] Instructions for Home/Discharge Instructions 01/19/25 1805 MR#: [id number] Acct: [id number] Name: SONIYA COOLEY Rep #:[id number] : 1940 84 From: Leti Lu DO PCP: Dr. Oniel Francis MD Status:ADM DARI Discharge Instructions Diet Discharge Diet: No restrictions DC O2, CPAP, BIPAP needs Home O2 Discharge instructions: No Dressing / Incision Discharge Activity: Return to Normal Activity Weight Bearing Status: Full weight bearing Follow Up Care Test Results: Test results from this visit will be discussed in further detail at your follow- up appointment, if applicable. Discharge Plan Admission Admit Date/Time: 01/19/25 06:07 Primary Reason for Your Visit: Transient ischemic attack Attending Provider: Leti Lu Primary Care Provider: Oniel Francis Consulting Providers: Mik Kilgore; Graham Gutierrez; Brooklyn Peñaloza; Bianca Jerry; Kavita Glass; Odessa Wray; Matthew Rushing; Yarely Ackerman; Harinder Hill; Joreg Bui;Nando Rosales; Xenia Fournier; Sulaiman Carrasquillo; Aleksandra Gonzales; Zoila Maciel; Audi Phillip; Adebayo Valdovinos; Dali Sanchez; Ángel King; Dary Villalta; Tia Mcleod Instructions Additional Instructions / Restrictions: Follow-up as scheduled with your neurologist Discharge Orders/Prescriptions Prescriptions: New clopidogrel [Plavix] 75 mg tablet 75 mg PO DAILY Qty: 21 0RF Rx Instructions: Start on 01/20/2025, take for 21 days then discontinue Continued acetaminophen 500 mg tablet 1,000 mg PO TID PRN (Reason: fever or pain) fluticasone propionate [Allergy Relief (fluticasone)] 50 mcg/actuation spray,suspension 1 spray INTRANASAL DAILY PRN (Reason: nasal congestion) carbidopa-levodopa 25-100 mg tablet 2 tab PO TID levothyroxine 25 mcg tablet 25 mcg PO DAILY ybsvkjei-ftt-WY-lycopen-lutein 1 EACH tablet 1 ea PO DAILY Patient Comments: supplement cyanocobalamin (vitamin B-12) 500 mcg tablet, sublingual 1,000 mcg PO DAILY Patient Comments: supplement aspirin 81 mg tablet,chewable 81 mg PO DAILY Patient Comments: heart [facility] cholecalciferol (vitamin D3) 25 mcg (1,000 unit) tablet 2,000 unit PO BID Patient Comments: supplement atorvastatin 80 mg tablet 80 mg PO QHS propranolol 80 mg capsule,extended release 24 hr 80 mg PO Q24H trazodone 50 mg tablet 50 mg PO QHS tamsulosin 0.4 mg capsule 0.8 mg PO QHS metoprolol tartrate 50 mg tablet See Rx Instructions .ROUTE .COMPLEX Qty: 180 3RF Dose Instruction: TAKE 1 TABLET TWICE A DAY Rx Instructions: TAKE 1 TABLET TWICE A DAY nitroglycerin 0.4 mg tablet, sublingual See Rx Instructions .ROUTE .COMPLEX Qty: 25 6RF Dose Instruction: PLACE 1 TABLET UNDER THE TONGUE AND ALLOW TO DISSOLVE EVERY 5 TO 15 MINUTES FOR CHEST PAIN. DO NOT EXCEED 3 DOSES Rx Instructions: PLACE 1 TABLET UNDER THE TONGUE AND ALLOW TO DISSOLVE EVERY 5 TO 15 MINUTES FOR CHEST PAIN. DO NOT EXCEED 3 DOSES Other Ambulatory Orders: 30 Day Event Recorder Preventi (Urgent) Timeframe: 1 Day Facility: [facility] - Location: Cardiovascular Services Ordered By: Dr. Leti Lu Referrals / Follow Up: Oniel Francis MD [Primary Care Provider] - See Referral Note (At next appointment time) Disposition Disposition (needs filled in before D/C Order can be placed): Home, Self Care 01/19/251811<Electronically signed by Leti Lu DO>Leti Lu DO CC: Kavita Glass; Aleksandra Gonzales; Adebayo Valdovinos; Odessa Wray MD; Bianca Jerry MD; Graham Gutierrez MD; Dr. Brooklyn Peñaloza MD; Dr. Matthew Rushing MD; Dr. Eve MD; Dr. Jorge Biu MD; Dr. Harinder Hill MD; Dr. Oniel Francis MD; Dr.Jorge Bobby MD; Dr. Sulaiman Carrasquillo DO; Dr. Audi Phillip MD; Dr. Zoila Maciel MD; Dr. Mik Kilgore MD; Dr. Dali Sanchez MD; Dr. Ángel King MD; Dr. Dary Villalta MD; Xenia Fournier DO; Tia Mcleod MD ~ Signed [facility] Work Phone: Discharge summary Author [facility] Note Date/Time January 19, 2025 6:17 pm [facility] Medical Records Department [address] [place] [address] Discharge Summary 01/19/251811 MR#: [id number] Acct: [id number] Name: SONIYA COOLEY Rep #:[id number] : 1940 84 From: Leti Lu DO PCP: Dr. Oniel Francis MD Status:ADM DARI Location: [place] [address] Providers Date of Admission: 01/19/25 Date of Discharge: 01/19/25 Primary Care Physician: Dr. Oniel Francis MD Consultations 01/19/25 12:11 Neurology [Consult: Tele-Neurology] Routine Consulting Provider: [facility] Reason for Consult: ? TIA EMERGENT Consult: No MD Notified: Yes Date Notified: 01/19/25 Time Notified: 12:11 Method of Notification: Answering Service Nursing Unit Staff Notify [facility] of Tele-Neurology Consult: Yes Reason For Visit: TRANSIENT ISCHEMIC ATTACK Diagnosis Discharge Diagnosis (1) H/O coronary artery bypass surgery: Status: Resolved Code(s): Z95.1 - Presence of aortocoronary bypass graft (2) H/O aortic valve replacement: Status: Chronic Code(s): Z95.2 - Presence of prosthetic heart valve (3) Essential hypertension: Status: Chronic Code(s): I10 - Essential (primary) hypertension (4) Hyperlipidemia: Status: Chronic Code(s): E78.5 - Hyperlipidemia, unspecified (5) Stroke-like symptoms: Status: Acute Code(s): R29.90 - Unspecified symptoms and signs involving the nervous system Plan 1. Transient ischemic attack #2 Parkinson's disease #3 coronary artery disease #4 aortic valvular disease #5 hyperlipidemia Medications at Discharge Home Medications fiqvkoya-yvq-qqedk acid 0.4 mg-lycopene 300 mcg-lutein 250 mcg tablet 1 ea PO DAILY 05/28/16 acetaminophen 500 mg tablet 1,000 mg PO TID PRN fever or pain 05/29/19 cyanocobalamin (vitamin B-12) 500 mcg sublingual tablet 1,000 mcg PO DAILY 05/29/19 aspirin 81 mg chewable tablet 81 mg PO DAILY 12/22/19 carbidopa 25 mg-levodopa 100 mg tablet 2 tab PO TID 02/03/21 cholecalciferol (vitamin D3) 25 mcg (1,000 unit) tablet 2,000 unit PO BID 02/03/21 fluticasone propionate 50 mcg/actuation nasal spray,suspension (Allergy Relief (fluticasone)) 1 spray intranasal DAILY PRN nasal congestion 02/03/21 levothyroxine 25 mcg tablet 25 mcg PO DAILY 02/03/21 metoprolol tartrate 50 mg tablet See Rx Instructions .Route .COMPLEX #180 tabs 12/17/22 nitroglycerin 0.4 mg sublingual tablet See Rx Instructions .Route .COMPLEX #25 tabs 02/25/23 atorvastatin 80 mg tablet 80 mg PO QHS 01/19/25 clopidogrel 75 mg tablet (Plavix) 75 mg PO DAILY #21 tabs 01/19/25 propranolol 80 mg capsule,24 hr,extended release 80 mg PO Q24H 01/19/25 tamsulosin 0.4 mg capsule 0.8 mg PO QHS 01/19/25 trazodone 50 mg tablet 50 mg PO QHS 01/19/25 Hospital Course Operations None Procedures 2-D Echocardiogram Summary of Care Provided Minutes Spent on Discharge: 31 Hospital Course: This 84-year-old white male was seen in the emergency room at [facility] after being brought in by his due to slurred speech and generalized weakness when the patient awoke the morning of 01/19/2025. Patient had gone to bed approximately 11 PM the night before and was well at that time. A stroke team was not called due to the timeframe, the case was discussed with [facility] neurologist however and it was confirmed he was outside the window for TNK and he had spontaneous resolution of his symptoms [facility] Patient had a CT of the brain and CTA of the head and neck which did not reveal any large vessel occlusion or stroke or bleed. Patient's NIH was 0, labs were unremarkable. Patient was placed in observation status on PCU, he was seen in consultation by neurology who recommended a 30-day Holter monitor, the use of aspirin and Plavix for 21 days then drop in the Plavix off, and recommended a statin and the patient follow-up with neurology. Patient had established care with a neurologist due to his Parkinson's disease and had an upcoming appointment in the next few weeks. Patient had echocardiogram performed which was unremarkable, patient was seen by PT and OT as well as speech therapy and required no follow-up to the fact he was asymptomatic On 01/19/2025, patient was seen and examined: On examination he appeared in good health and spirits. Vital signs as documented. Skin warm and dry and without overt rashes. Neck without JVD, neck was supple, trachea midline, thyroid was normal. Lungs clear bilaterally, normal air movement was noted. Heart exam notable for regular rhythm, normal sounds and absence of murmurs, rubs or gallops. Abdomen unremarkable and without evidence of organomegaly, masses, or abdominal aortic enlargement. Bowel sounds are present, abdomen is not distended. Extremities nonedematous, no cyanosis was noted, no clubbing was noted. Neuro: Cranial nerves II through XII are grossly intact, no focal motor deficits were noted, sensation to light touch and pinprick intact, motor exam 5/5 throughout. Psych: Patient is alert and oriented x3, he does not appear anxious or depressed, he does not appear agitated. Patient was discharged home in stable condition on 01/19/2025 Weight / BMI Weight Weight: 92.8 kg Body Mass Index (BMI) 32.0 ABG / Lab / Microbiology Data 01/19/25 04:00 01/19/25 04:00 Laboratory: Laboratory Results - last 24 hr 01/19/25 04:00: WBC 6.3, RBC 4.31 L, Hgb 14.2, Hct 40.8, MCV 94.7 H, MCH 32.9 H,MCHC 34.8, RDW Std Deviation 46.3 H, RDW Coeff of Adrian 13.2, Plt Count 135 L, MPV10.4, Immature Gran % (Auto) 0.200, Neut % (Auto) 36.7 L, Lymph % (Auto) 48.3 H,Tensas % (Auto) 10.0, Eos % (Auto) 4.3, Baso % (Auto) 0.5, Absolute Neuts (auto) 2.3, Absolute Lymphs (auto) 3.03, Nucleated RBC % 0, PT 13.4, INR 1.0, APTT 28.5, Sodium 140, Potassium 4.1, Chloride 105, Carbon Dioxide 23.1, Anion Gap 12, BUN 25 H, Creatinine 0.91, Estim Creat Clear Calc 68.19, Est GFR (MDRD) Non-Af 84, BUN/Creatinine Ratio 27.0 H, Glucose 145 H, Calcium 9.7 01/19/25 04:40: Urine Color Yellow, Urine Clarity Clear, Urine pH 6.0, Ur Specific [place] 1.015, Urine Protein Negative, Urine Glucose (UA) Normal, UrineKetones Negative, Urine Occult Blood Negative, Urine Nitrite Negative, Urine Bilirubin Negative, Urine Urobilinogen Normal, Ur Leukocyte Esterase Negative, Urine RBC 0 SEEN, Urine WBC 0 SEEN, Ur Squamous Epith Cells 0 SEEN, Urine Bacteria 0 SEEN, Urine Mucus 0 SEEN Radiography Diagnostic Testing: Radiology Impression Brain CT 01/19/25 04:00 IMPRESSION: No CT evidence for acute brain abnormality. Reading Location: [place] [address] Head/Neck CTA 01/19/25 04:03 IMPRESSION: Atherosclerosis without high-grade stenosis. [facility] Chest X-Ray 01/19/25 04:45 IMPRESSION: Mild bilateral basilar atelectatic pulmonary changes. Reading Location: [facility] Brain MRI 01/19/25 09:20 IMPRESSION: Sinus disease is visible in the floor of the right maxillary sinus. There is fluid signal in a portion of the right mastoid air cells, with mastoiditis. No acute intracranial abnormality is identified. [facility] Echocardiogram 01/19/25 13:33 Interpretation Summary The left ventricular ejection fraction is 55 %. Normal LV size. Stage 1 diastolic dysfunction. Pulmonary artery systolic pressure is 23 mmHg. Bioprosthetic aortic valve. Contrast injection was performed. Ordering Physician: Leti Lu Performed By: Suzan Lenoard RDCS D/C Instructions Discharge Diet: No restrictions Weight Bearing Status: Full weight bearing DC O2, CPAP, BIPAP Needs Home O2 Discharge instructions: No Meaningful Use Info Meaningful Use Meaningful Use Diagnoses (Choose all that apply): None applicable Ischemic Stroke Statin Dosing Therapy Reference: STATIN DOSE THERAPY REFERENCE: * Patients > 75 years receive moderate or high dose statin therapy. * Patients 75 years or YOUNGER should receive HIGH intensity statin dose unless contraindicated. You will be required to document reason for non-treatment if statin daily dose does not meet guidelines. HIGH DOSE STATIN THERAPY DAILY Atorvastatin > than or = to 40 mg Rosuvastatin > than or = to 20 mg Amlodipine + Atorvastatin > than or = to 2.5/40 mg Ezetimibe + Simvastatin 10/80 mg Simvastatin 80mg Discharge Plan Admission Admit Date/Time: 01/19/25 06:07 Primary Reason for Your Visit: Transient ischemic attack Attending Provider: Leti Lu Primary Care Provider: Oniel Francis Consulting Providers: Mik Kilgore; Graham Gutierrez; Brooklyn Peñaloza; Bianca Jerry; Kavita Glass; Odessa Wray; Matthew Rushing; Yarely Ackerman; Harinder Hill; Jorge Bui;Nando Rosales; Xenia Fournier; Sulaiman Carrasquillo; Aleksandra Gonzales; Zoila Maciel; Kenjiolinda Milton; Adebayo Valdovinos; Dali Sanchez; Ángel King; Dary Villalta; Tia Mcleod Instructions Additional Instructions / Restrictions: Follow-up as scheduled with your neurologist Discharge Orders/Prescriptions Prescriptions: New clopidogrel [Plavix] 75 mg tablet 75 mg PO DAILY Qty: 21 0RF Rx Instructions: Start on 01/20/2025, take for 21 days then discontinue Continued acetaminophen 500 mg tablet 1,000 mg PO TID PRN (Reason: fever or pain) fluticasone propionate [Allergy Relief (fluticasone)] 50 mcg/actuation spray,suspension 1 spray INTRANASAL DAILY PRN (Reason: nasal congestion) carbidopa-levodopa 25-100 mg tablet 2 tab PO TID levothyroxine 25 mcg tablet 25 mcg PO DAILY sflgumci-mvd-ER-lycopen-lutein 1 EACH tablet 1 ea PO DAILY Patient Comments: supplement cyanocobalamin (vitamin B-12) 500 mcg tablet, sublingual 1,000 mcg PO DAILY Patient Comments: supplement aspirin 81 mg tablet,chewable 81 mg PO DAILY Patient Comments: heart health cholecalciferol (vitamin D3) 25 mcg (1,000 unit) tablet 2,000 unit PO BID Patient Comments: supplement atorvastatin 80 mg tablet 80 mg PO QHS propranolol 80 mg capsule,extended release 24 hr 80 mg PO Q24H trazodone 50 mg tablet 50 mg PO QHS tamsulosin 0.4 mg capsule 0.8 mg PO QHS metoprolol tartrate 50 mg tablet See Rx Instructions .ROUTE .COMPLEX Qty: 180 3RF Dose Instruction: TAKE 1 TABLET TWICE A DAY Rx Instructions: TAKE 1 TABLET TWICE A DAY nitroglycerin 0.4 mg tablet, sublingual See Rx Instructions .ROUTE .COMPLEX Qty: 25 6RF Dose Instruction: PLACE 1 TABLET UNDER THE TONGUE AND ALLOW TO DISSOLVE EVERY 5 TO 15 MINUTES FOR CHEST PAIN. DO NOT EXCEED 3 DOSES Rx Instructions: PLACE 1 TABLET UNDER THE TONGUE AND ALLOW TO DISSOLVE EVERY 5 TO 15 MINUTES FOR CHEST PAIN. DO NOT EXCEED 3 DOSES Other Ambulatory Orders: 30 Day Event Recorder Preventi (Urgent) Timeframe: 1 Day Facility: [facility] - Location: Cardiovascular Services Ordered By: Dr. Leti Lu Referrals / Follow Up: Oniel Francis MD [Primary Care Provider] - See Referral Note (At next appointment time) Disposition Disposition (needs filled in before D/C Order can be placed): Home, Self Care Charges/Coding Visit Charges Inpatient E&M: 37542 Disch Hosp >30min 01/19/25 1817 <Electronically signed by Leti Lu DO> Cosigner Signature (if applicable): CC: Dr. Oniel Francis MD; Dr. 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 [facility] Diagnosis Rash- Primary Rash and other nonspecific skin eruption [facility] Diagnosis Aortic valve replaced- Primary Heart valve replaced by other means [facility] Diagnosis Olecranon bursitis of right elbow- Primary Olecranon bursitis [facility] Diagnosis Coronary 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[place] coronary artery of [place] heart without angina pectoris- Primary Aortic valve replaced Heart valve replaced by other means Essential hypertension Unspecified essential hypertension Mixed hyperlipidemia Carotid stenosis, asymptomatic, bilateral Hyperlipidemia, unspecified hyperlipidemia type [facility] Diagnosis Essential hypertension- Primary Unspecified essential hypertension Mixed hyperlipidemia Elevated blood sugar Other abnormal glucose Coronary 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[place] coronary artery of [place] heart without angina pectoris Carotid stenosis, asymptomatic, bilateral Acquired hypothyroidism Unspecified hypothyroidism Vitamin D deficiency Unspecified vitamin D deficiency Obesity, Class I, BMI 30-34.9 Obesity, unspecified B12 deficiency Other B-complex deficiencies Viral URI with cough Acute upper respiratory infections of unspecified site Medication management Encounter for long-term (current) use of other medications [facility] disease (HCC) Paralysis agitans [facility] Coronary 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[place] coronary artery of [place] heart without angina pectoris- Primary Aortic valve replaced Heart valve replaced by other means Essential hypertension Unspecified essential hypertension Mixed hyperlipidemia Carotid stenosis, asymptomatic, bilateral Hyperlipidemia, unspecified hyperlipidemia type [facility] Diagnosis Parkinson disease (HCC) Paralysis agitans [facility] Diagnosis Parkinson disease (HCC)- Primary Paralysis agitans Chronic idiopathic constipation Unspecified constipation 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 [facility] Diagnosis Coronary 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[place] coronary artery of [place] heart without angina pectoris- Primary Aortic valve replaced Heart valve replaced by other means Essential hypertension Unspecified essential hypertension Hyperlipidemia, unspecified hyperlipidemia type Mixed hyperlipidemia Carotid stenosis, asymptomatic, bilateral SAUCEDA (dyspnea on exertion) Other dyspnea and respiratory abnormality [facility] Diagnosis 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 Chronic idiopathic constipation Unspecified constipation Insomnia, unspecified type [facility] Acute cough- Primary Acute cough [facility] Diagnosis Coronary 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[place] coronary artery of [place] heart without angina pectoris- Primary Aortic valve replaced Heart valve replaced by other means Essential hypertension Unspecified essential hypertension Mixed hyperlipidemia Carotid stenosis, asymptomatic, bilateral Screening for ischemic heart disease Pre-operative cardiovascular examination [facility] Diagnosis URI, acute- Primary Acute upper respiratory infections of unspecified site X-ray of lung, abnormal Other nonspecific abnormal finding of lung field 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 Elevated blood sugar Other abnormal glucose Essential hypertension Unspecified essential hypertension Acquired hypothyroidism Unspecified hypothyroidism Vitamin D deficiency Unspecified vitamin D deficiency B12 deficiency Other B-complex deficiencies [facility] Diagnosis Medicare annual wellness visit, subsequent- Primary Routine general medical examination at a [facility] care facility Advance directive discussed with patient Other specified counseling Arthritis of knee Unspecified arthropathy, lower leg Acquired hypothyroidism Unspecified hypothyroidism Elevated blood sugar Other abnormal glucose B12 deficiency Other B-complex deficiencies Mixed hyperlipidemia Essential hypertension Unspecified essential hypertension 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 replaced Heart valve replaced by other means Parkinson's disease with dyskinesia and fluctuating manifestations (HCC) BPH associated with nocturia Hypertrophy of prostate with urinary obstruction and other lower urinary tract symptoms (LUTS) [facility] Diagnosis 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 Chronic idiopathic constipation Unspecified constipation Insomnia, unspecified type [facility] Diagnosis Nocturia associated with benign prostatic hyperplasia- Primary [facility] Diagnosis Mixed hyperlipidemia- Primary Essential hypertension Unspecified essential hypertension B12 deficiency Other B-complex deficiencies Elevated blood sugar Other abnormal glucose Acquired hypothyroidism Unspecified hypothyroidism Vitamin D deficiency Unspecified vitamin D deficiency [facility] Diagnosis URI, acute Acute upper respiratory infections of unspecified site X-ray of lung, abnormal Other nonspecific abnormal finding of lung field [facility] Diagnosis Acute [facility] Diagnosis Bilateral leg pain- Primary Pain in limb Bilateral lower extremity edema Edema Benign localized prostatic hyperplasia with lower urinary tract symptoms (LUTS) Benign localized hyperplasia of prostate with urinary obstruction and other lower urinary tract symptoms (LUTS) [facility] Diagnosis Essential hypertension- Primary Unspecified essential hypertension Mixed hyperlipidemia [facility] Diagnosis Benign localized prostatic hyperplasia with lower urinary tract symptoms (LUTS) Benign localized hyperplasia of prostate with urinary obstruction and other lower urinary tract symptoms (LUTS) [facility] Diagnosis Hyperlipidemia, unspecified hyperlipidemia type [facility] Diagnosis Hyperlipidemia, unspecified hyperlipidemia type [facility] Diagnosis Benign localized prostatic hyperplasia with lower urinary tract symptoms (LUTS) Benign localized hyperplasia of prostate with urinary obstruction and other lower urinary tract symptoms (LUTS) [facility] Diagnosis Coronary 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[place] coronary artery of [place] heart without angina pectoris- Primary Aortic valve replaced Heart valve replaced by other means Mixed hyperlipidemia Essential hypertension Unspecified essential hypertension Carotid stenosis, asymptomatic, bilateral Hyperlipidemia, unspecified hyperlipidemia type SAUCEDA (dyspnea on exertion) Other dyspnea and respiratory abnormality [facility] Diagnosis 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 Insomnia, unspecified type Chronic idiopathic constipation Unspecified constipation 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 [facility] Diagnosis Mixed hyperlipidemia [facility] noteNo assessment information availableLee [employer] Services Work Phone: Evaluation note* Diagnosis Medicare annual wellness visit, subsequent- Primary Routine general medical examination at a health care facility Mixed hyperlipidemia Essential hypertension Unspecified essential hypertension Acquired hypothyroidism Unspecified hypothyroidism Elevated blood sugar Other abnormal glucose Carotid stenosis, asymptomatic, bilateral 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 replaced Heart valve replaced by other means Hx of transient ischemic attack (TIA) Transient ischemic attack (TIA), 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) B12 deficiency Other B-complex deficiencies Obesity, Class I, BMI 30-34.9 Obesity, unspecified Vitamin D deficiency Unspecified vitamin D deficiency Chronic bilateral low back pain without sciatica Advance directive discussed with patient Other specified counseling BPH associated with nocturia Hypertrophy of prostate with urinary obstruction and other lower urinary tract symptoms (LUTS) Need for vaccination Need for prophylactic vaccination and inoculation against unspecified single disease Encounter for screening examination for other mental health and behavioral disorders Screening for depression Medication management Encounter for long-term (current) use of other medications Sleep disorder Sleep disturbance, unspecified [facility] Diagnosis Elevated hemoglobin A1c- Primary Other abnormal blood chemistry [facility] Diagnosis Insomnia, unspecified type [facility] Diagnosis Acute URI- Primary Acute upper respiratory infections of unspecified site [facility] Diagnosis Benign localized prostatic hyperplasia with lower urinary tract symptoms (LUTS) Benign localized hyperplasia of prostate with urinary obstruction and other lower urinary tract symptoms (LUTS) [facility] Author Mik Kilgore [facility] Note Date/Time January 19, 2025 6:07 am [facility] Medical Records Department [address] [place] [address] [place] [address] History & Physical Exam 01/19/25 0558 MR#: [id number] Acct: [id number] Name: SONIYA COOLEY Rep #:[id number] : 1940 84 From: Mik Kilgore MD PCP: Dr. Oniel Francis MD Status:REG ER Location: ED HPI - General General Date of Admission: 01/19/25 Date of Service: 01/19/25 Chief Complaint: Leg weakness and slurring of speech HPI Narrative SONIYA COOLEY, is a 84 M who presents to the emergency room with chief complaint of lower extremity weakness and slurring of speech. Onset of symptomsbegan approximately 11:00 earlier this evening when he awoke to use the restroomand found himself to be weak in both lower extremities. His spouse noticed he was slurring his speech for approximately 15 minutes and then that subsequently resolved. Patient has significant past medical history of carotid artery disease, coronary artery bypass surgery in 2019, status post aortic valve replacement, and hypertension. Patient arrived in the emergency room by personal vehicle with the spouse several hours later as symptoms seem to have resolved. 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 Laboratory studies were unremarkable. And urinalysis was negative. There is a fact that all neurologic symptoms have resolved at this point patient will be admitted for observation and an MRI of the head will be ordered to rule out active neurologic process. Patient currently denies chest pain, shortness of breath, fever or chills and/or nausea vomiting or diarrhea. [facility] Medical History (Updated 01/19/25 @ 05:[address] Tate Mcdonough DO) Parkinson disease Family history of malignant neoplasm of colon in mother Personal history of colonic polyps Essential tremor Aortic prosthetic valve regurgitation Deep vein thrombophlebitis of right leg Obesity Left carotid artery stenosis Prosthetic aortic valve stenosis Central sleep apnea Nonrheumatic aortic (valve) insufficiency Bicuspid aortic valve Vitamin D deficiency History of rheumatic fever Hyperlipidemia History of carotid artery disease Atherosclerosis of coronary artery of [place] heart without angina pectoris Essential hypertension Contusion of finger without damage to nail Laceration of finger of left hand without foreign body without damage to nail Hemorrhoids Shortness of breath Neck pain on left side Tingling and numbness left fingers Home Medications ?Medication ?Instructions ?Recorded ?Last Taken ?Type voglmiug-iiu-hwniu acid 0.4 1 ea PO DAILY 05/28/16 History mg-lycopene 300 mcg-lutein 250 mcg tablet acetaminophen 500 mg tablet 1,000 mg PO TID PRN fever or pain 05/29/19 Unknown History cyanocobalamin (vitamin B-12) 500 1,000 mcg PO DAILY 1 Unknown History mcg sublingual tablet aspirin 81 mg chewable tablet 81 mg PO DAILY 12/22/19 Unknown History carbidopa 25 mg-levodopa 100 mg 2 tab PO TID 02/03/21 Unknown History tablet cholecalciferol (vitamin D3) 25 2,000 unit PO BID 09/25 Unknown History mcg (1,000 unit) tablet fluticasone propionate 50 1 spray intranasal DAILY PRN nasal 02/03/21 Unknown History mcg/actuation nasal congestion spray,suspension (Allergy Relief (fluticasone)) levothyroxine 25 mcg tablet 25 mcg PO DAILY 02/03/21 U nknown History metoprolol tartrate 50 mg tablet See Rx Instructions . Route 12/17/22 Unknown Rx .COMPLEX #180 tabs nitroglycerin 0.4 mg sublingual See Rx Instructions .R oute 02/25/23 Unknown Rx tablet .COMPLEX #25 tabs atorvastatin 80 mg tablet 80 mg PO QHS 01/19/25 Unknow n History propranolol 80 mg capsule,24 80 mg PO Q24H 01/19/25 Un known History hr,extended release tamsulosin 0.4 mg capsule 0.8 mg PO QHS 01/19/25 Unkno wn History trazodone 50 mg tablet 50 mg PO QHS 01/19/25 Unknow n History Allergy/AdvReac Type Severity Reaction Status Date / Time iodine Allergy Other Verified 01/19/25 03:56 Penicillins Allergy Hives Verified 01/19/25 03:56 Family History Mother Heart disease Colon cancer Father Diabetes Sister Heart disease Brother Heart disease Surgical History (Updated 01/19/25 @ 04:14 by Alexsandra Salas) History of single vessel coronary artery bypass History of cataract extraction History of colonoscopy (~2014) History of left heart catheterization (08/26/18) H/O coronary artery bypass surgery (10/2018) H/O aortic valve replacement (10/2018) History of left-sided carotid endarterectomy (2008) History of hernia repair History of cholecystectomy History of tonsillectomy Social History Smoking Status: Never smoker alcohol intake: current alcohol intake frequency: a few times a month Alcohol type: beer and wine substance use type: does not use caffeine: No ROS Constitutional Constitutional: Denies chills or fever(s) Eyes Eyes: Denies blurry vision ENT HEENT: Denies abnormal hearing Cardiovascular Cardiovascular: Denies chest pain Respiratory/Chest Respiratory/Chest: Denies shortness of breath at rest Gastrointestinal Gastrointestinal: Denies abdominal pain Genitourinary Genitourinary: Denies dysuria Musculoskeletal Musculoskeletal: Denies back pain Integumentary Integumentary: Denies dry skin Neurologic Neurologic: Reports abnormal speech and focal weakness Psychiatric Psychiatric: Denies anxiety Endocrine Endocrinology: Denies change in body appearance Vital Signs Vital Signs Vital Signs: 01/19/25 03:53 01/19/25 03:57 01/19/25 04:00 Temperature 98.0 F Temperature Source Oral Pulse Rate 69 67 69 Respiratory Rate 18 18 18 Blood Pressure 152/73 H 152/73 H 137/70 H Blood Pressure Mean 99 99 92 Pulse Ox 93 93 92 Oxygen Delivery Method Room Air Room Air 01/19/25 04:10 01/19/25 04:30 01/19/25 05:00 Temperature Temperature Source Pulse Rate 68 66 Respiratory Rate 18 18 Blood Pressure 154/84 H 135/83 H Blood Pressure Mean 107 100 Pulse Ox 93 92 92 Oxygen Delivery Method Room Air Room Air Room Air Weight Weight: 213 lb 6.519 oz Body Mass Index (BMI) 33.4 Physical Exam Const alert, oriented x3 and no apparent distress General Appearance: cooperative and well developed HEENT normocephalic and head/scalp atraumatic Neck no lymphadenopathy Lymph Lymphatic: no lymphadenopathy noted Resp normal respiratory effort, normal air movement and clear to auscultation bilaterally Cardio regular rate, regular rhythm, S1 normal heart sound and S2 normal heart sound GI normal to inspection, nondistended, normoactive bowel sounds Extremity normal capillary refill General Extremity: no tenderness to palpation of joints or extremities Skin General Skin Exam: no breakdown Neuro CN's II-XII intact bilaterally, no focal motor deficits and no sensory deficits noted Speech: speech normal Motor Exam: strength 5/5 throughout Psych thought process normal, cooperative and affect normal Results Lab / Micro Data 01/19/25 04:00 01/19/25 04:00 Labs: Laboratory Results - last 24 hr 01/19/25 04:00: WBC 6.3, RBC 4.31 L, Hgb 14.2, Hct 40.8, MCV 94.7 H, MCH 32.9 H,MCHC 34.8, RDW Std Deviation 46.3 H, RDW Coeff of Adrian 13.2, Plt Count 135 L, MPV10.4, Immature Gran % (Auto) 0.200, Neut % (Auto) 36.7 L, Lymph % (Auto) 48.3 H,Tensas % (Auto) 10.0, Eos % (Auto) 4.3, Baso % (Auto) 0.5, Absolute Neuts (auto) 2.3, Absolute Lymphs (auto) 3.03, Nucleated RBC % 0, PT 13.4, INR 1.0, APTT 28.5, Sodium 140, Potassium 4.1, Chloride 105, Carbon Dioxide 23.1, Anion Gap 12, BUN 25 H, Creatinine 0.91, Estim Creat Clear Calc 68.19, Est GFR (MDRD) Non-Af 84, BUN/Creatinine Ratio 27.0 H, Glucose 145 H, Calcium 9.7 01/19/25 04:40: Urine Color Yellow, Urine Clarity Clear, Urine pH 6.0, Ur Specific [place] 1.015, Urine Protein Negative, Urine Glucose (UA) Normal, UrineKetones Negative, Urine Occult Blood Negative, Urine Nitrite Negative, Urine Bilirubin Negative, Urine Urobilinogen Normal, Ur Leukocyte Esterase Negative, Urine RBC 0 SEEN, Urine WBC 0 SEEN, Ur Squamous Epith Cells 0 SEEN, Urine Bacteria 0 SEEN, Urine Mucus 0 SEEN Imaging Radiology Impression Brain CT 01/19/25 04:00 IMPRESSION: No CT evidence for acute brain abnormality. Reading Location: [place] [address] Head/Neck CTA 01/19/25 04:03 IMPRESSION: Atherosclerosis without high-grade stenosis. Reading Location: [place] [address] Chest X-Ray 01/19/25 04:45 IMPRESSION: Mild bilateral basilar atelectatic pulmonary changes. Reading Location: [place] [address] Assessment & Plan Assessment/Plan (1) H/O coronary artery bypass surgery: (2) H/O aortic valve replacement: (3) Essential hypertension: (4) Hyperlipidemia: (5) Stroke-like symptoms: PLAN: Plan 1 strokelike symptoms that have resolved consistent with transient ischemic attack?admit patient to progressive care unit for observation, initiate neurologic assessments every 4 hours, continue aspirin therapy and order MRI of the brain. CT angiogram was performed and patient does have some level of disease that we will need to be followed by vascular surgery post discharge. 2. Hyperlipidemia?continue statin medication 3. Hypertension?continue routine home medications will add as needed antihypertensive therapy per protocol 4. DVT prophylaxis?low molecular weight heparin Charges/Coding Visit Charges OBSV E&M: [id number] Observ/hosp same date L2 01/19/25 0607 <Electronically signed by Mik Kilgore MD> Cosigner Signature (if applicable): CC: Dr. Oniel Francis MD; Dr. Mik Kilgore MD~ Signed [facility] Work Phone: Hospital course Narrative No data available for this section [facility] Hospital Discharge instructions No data available for this section [facility] Discharge instructionsAdditional Instructions Date of Discharge: 04/08/25[facility] Work Phone: Progress note No data available for this section [facility] Reason for referral (narrative)* Outpatient Procedure (Routine) - Authorized Specialty Diagnoses / Procedures Referred By Contac t [facility] Diagnoses Aortic valve replaced Procedures ECG COMPLETE ECG ROUTINE ECG W/LEAST 12 LDS W/I&R Marj Mackey MD [address] [place] [address] [facility] [place] [address] [place] [address] Referral ID Status Reason Start Date Expiration Date Visits Requested Visits Authorized [id number] Authorized Auto-Generat ed Referral 04/23/2022 04/23/2023 1 1 T [facility] for referral (narrative)* Outpatient Procedure (Routine) - Authorized Specialty Diagnoses / Procedures Referred By Contac t Referred To Contact [facility] Diagnoses Carotid stenosis, asymptomatic, bilateral Procedures US CAROTID ARTERIES CLAUDY [facility] LAB DUPLEX SCAN EXTRACRANIAL ART COMPL BI STUDY Marj Mackey MD [address] [place] [address] [address] Referral ID Status Reason Start Date Expiration Date Visits Requested Visits Authorized [id number] Authorized Auto-Generat ed Referral 04/30/2022 08/04/2022 1 1 [facility] for referral (narrative)* Outpatient Procedure (Routine) - Authorized Specialty Diagnoses / Procedures Referred By Contac t Referred To Contact [facility] Diagnoses Carotid stenosis, asymptomatic, bilateral Procedures US CAROTID ARTERIES CLAUDY VAS LAB DUPLEX SCAN EXTRACRANIAL ART COMPL BI STUDY Marj Mackey MD [address] [place] [address] [address] Referral ID Status Reason Start Date Expiration Date Visits Requested Visits Authorized [id number] Authorized Auto-Generat ed Referral 3 06/23/2024 1 1 * Outpatient Procedure (Routine) - Authorized Specialty Diagnoses / Procedures Referred By Contac t Referred To Contact [facility] Diagnoses Aortic valve replaced SAUCEDA (dyspnea on exertion) Procedures ECHO ECHO TTHRC R-T 2D W/WOM-MODE COMPL SPEC&COLR D Marj Mackey MD [address] [place] [address] [facility] [place] [address] [place] [address] Referral ID Status Reason Start Date Expiration Date Visits Requested Visits Authorized [id number] Authorized Auto-Generat ed Referral 3 06/23/2024 1 1 * Outpatient Procedure (Routine) - Pending Review Specialty Diagnoses / Procedures Referred By Contac t Referred To Contact [facility] Diagnoses Essential hypertension Hyperlipidemia, unspecified hyperlipidemia type Procedures ECG COMPLETE ECG ROUTINE ECG W/LEAST 12 LDS W/I&R Marj Mackey MD [address] [place] [address] [facility] [address] [address] Referral ID Status Reason Start Date Expiration Date Visits Requested Visits Authorized [id number] Pending Review Auto-Generat ed Referral 3 06/17/2024 1 1 [place] [facility] Outpatient Procedure (Routine) - Pending Review Specialty Diagnoses / Procedures Referred By Contac t Referred To Contact [facility] Diagnoses Screening for ischemic heart disease Procedures ECG COMPLETE ECG ROUTINE ECG W/LEAST 12 LDS W/I&R Marj Mackey MD [address] [place] [address] [facility] [address] [address] Referral ID Status Reason Start Date Expiration Date Visits Requested Visits Authorized [id number] Pending Review Auto-Generat ed Referral 12/18/2023 12/17/2024 1 1 [place] [facility] Diagnostic Procedure Only (Urgent) - Authorized Specialty Diagnoses / Procedures Referred By Contac t Referred To Contact [facility] Diagnoses Bilateral leg pain Bilateral lower extremity edema Procedures US DVT LOWER BILATERAL DUP-SCAN XTR VEINS COMPLETE BILATERAL STUDY Zina Duran, BUCKLE INSPECTOR.[facility] [address] [place] [address] [facility] [id number] Referral ID Status Reason Start Date Expiration Date Visits Requested Visits Authorized [id number] Authorized Auto-Generat ed Referral 05/07/2024 06/06/2025 1 1 [facility] for referral (narrative)* Outpatient Procedure (Routine) - Authorized Specialty Diagnoses / Procedures Referred By Contac t Ref[facility] Diagnoses 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 replaced Procedures ECHO ECHO TTHRC R-T 2D W/WOM-MODE COMPL SPEC&COLR D Marj Mackey MD [address] [place] [address] [facility] [place] [address] [place] [address] Referral ID Status Reason Start Date Expiration Date Visits Requested Visits Authorized [id number] Authorized Auto-Generat ed Referral 08/31/2024 08/31/2025 1 1 [facility] for referral (narrative)No reason for referral information availableWoodlawn [facility] Services Work Phone: Summary Purpose Family History No Family History Records Found Relationship Condition Age at Onset Recorded Date/T dany mother Cardiac disease Unknown Malignant neoplasm of colon Unknown father Diabetes mellitus Unknown sister Cardiac disease Unknown brother Cardiac disease Unknown Advance Directives No Advanced Directives Records FoundDocuments on File Type Date Recorded Patient Medical Assistant Internal Medicine Expl anation Advance Directive(s) 07/03/2021 9:21 AM Advance Directive(s) 06/16/2021 11:32 AM Advance Directive(s) 10/17/2018 5:01 PM Advance Directive(s) 10/17/2018 5:00 PM Advance Directive(s) 09/24/2018 1:08 PM Advance Directive(s) 08/26/2018 7:31 AM Advance Directive(s) 09/05/2011 12:00 AM Advance Directive(s) 09/20/2006 12:00 AM Documents on File Type Date Recorded Patient Medical Assistant Internal Medicine Expl anation Advance Directive(s) 10/17/2018 5:00 PM Advance Directive(s) 09/05/2011 Advance Directive(s) 09/20/2006 Documents on File Type Date Recorded Patient Medical Assistant Internal Medicine Expl anation Advance Directive(s) 10/17/2018 5:00 PM Advance Directive(s) 09/05/2011 Advance Directive(s) 09/20/2006 Advance Directive Response Recorded Date/ Time Advance Directives Yes January 18 3:22pm Advance Directive Response Recorded Date/ Time Advance Directives Yes January 18 3:22pm Do you have a Healthcare Power of Collect On Delivery Clerk? No January 19, 2025 3:53am Advance Directive Response Recorded Date/ Time Advance Directives Yes January 18 3:22pm Do you have a Healthcare Power of Collect On Delivery Clerk? Yes January 19, 2025 7:30am Advance Directive Response Recorded Date/ Time Advance Directives Yes January 18 3:22pm Do you have a Healthcare Power of Collect On Delivery Clerk? Yes April 07, 2025 3:41pm Name of Medical Power of Collect On Delivery Clerk April 07, 2025 3:41pm Do you have a Healthcare Power of Collect On Delivery Clerk? Yes January 19, 2025 7:30am Chief Complaint and Reason for Visit Chief Complaint Admit Date XRAY January 18, 2025 3:23 pm Chief Complaint Admit Date XRAY January 18, 2025 3:23 pm neuro sx January 19, 2025 5:58 am TRANSIENT ISCHEMIC ATTACK January 19 6:07am Reason for Visit Admit Date Stroke-like symptoms January 19, 2025 6:0 7am Essential hypertension January 19, 2025 6 :07am H/O aortic valve replacement January 19, 2025 6:07am Hyperlipidemia January 19, 2025 6:07 am H/O coronary artery bypass surgery January 19, 2025 6:07am Reason for Visit Admit Date Parkinson's disease January 19, 2025 6:07 am Stroke-like symptoms January 19, 2025 6:0 7am Essential hypertension January 19, 2025 6 :07am H/O aortic valve replacement January 19, 2025 6:07am Hyperlipidemia January 19, 2025 6:07 am H/O coronary artery bypass surgery January 19, 2025 6:07am Chief Complaint Admit Date XRAY January 18, 2025 3:23 pm neuro sx January 19, 2025 5:58 am TRANSIENT ISCHEMIC ATTACK January 19 6:07am TIA January 27, 2025 10:4 8am Reason for Visit Admit Date H/O coronary artery bypass surgery January 19, 2025 6:07am Essential hypertension January 19, 2025 6 :07am H/O aortic valve replacement January 19, 2025 6:07am Hyperlipidemia January 19, 2025 6:07 am Parkinson's disease January 19, 2025 6:07 am Stroke-like symptoms January 19, 2025 6:0 7am Chief Complaint Admit Date XRAY January 18, 2025 3:23 pm neuro sx January 19, 2025 5:58 am TRANSIENT ISCHEMIC ATTACK January 19 6:07am TIA January 27, 2025 10:4 8am 30 DAY HOLTER January 27, 2025 12:2 0pm TURP April 07, 2025 1:41pm Additional Source Comments (unrecognized sect ion and content) No Status Records FoundNo Status Records FoundNo Status Records FoundNo Status Records FoundNo Status Records Found INFORMATION SOURCE (unrecogn ized section and content) DATE CREATED AUTHOR 10/18/2018 [facility] DATE CREATED AUTHOR AUTHOR'S ORGANIZ ATION 12/19/2020 [facility] DATE CREATED AUTHOR AUTHOR'S ORGANIZ ATION 02/26/2024 [facility] ([place]) DATE CREATED AUTHOR AUTHOR'S ORGANIZ ATION 03/26/2025 [facility] DATE CREATED AUTHOR AUTHOR'S ORGANIZ ATION 04/08/2025 [facility] Source Comments (unrecognize d section and content) In the event this informatio n is protected by the Federal Confidentiality of Alcohol and Drug Abuse Patient Records regulations: The Federal rules restrict any use of the information to criminally investigate or prosecute any alcohol or drug abuse patient.[facility] the event this information is protected by the Federal Confidentiality of Alcohol and Drug Abuse Patient Records regulations: The Federal rules restrict any use of the information to criminally investigate or prosecute any alcohol or drug abuse patient.[facility] CenterIn the event this information is protected by the Federal Confidentiality of Alcohol and Drug Abuse Patient Records regulations: The Federal rules restrict any use of the information to criminally investigate or prosecute any alcohol or drug abuse patient.[facility] CenterIn the event this information is protected by the Federal Confidentiality of Alcohol and Drug Abuse Patient Records regulations: The Federal rules restrict any use of the information to criminally investigate or prosecute any alcohol or drug abuse patient.[facility] CenterIn the event this information is protected by the Federal Confidentiality of Alcohol and Drug Abuse Patient Records regulations: The Federal rules restrict any use of the information to criminally investigate or prosecute any alcohol or drug abuse patient.[facility] CenterIn the event this information is protected by the Federal Confidentiality of Alcohol and Drug Abuse Patient Records regulations: The Federal rules restrict any use of the information to criminally investigate or prosecute any alcohol or drug abuse patient.[facility] CenterIn the event this information is protected by the Federal Confidentiality of Alcohol and Drug Abuse Patient Records regulations: The Federal rules restrict any use of the information to criminally investigate or prosecute any alcohol or drug abuse patient.[facility] CenterIn the event this information is protected by the Federal Confidentiality of Alcohol and Drug Abuse Patient Records regulations: The Federal rules restrict any use of the information to criminally investigate or prosecute any alcohol or drug abuse patient.[facility] CenterIn the event this information is protected by the Federal Confidentiality of Alcohol and Drug Abuse Patient Records regulations: The Federal rules restrict any use of the information to criminally investigate or prosecute any alcohol or drug abuse patient.[facility] CenterIn the event this information is protected by the Federal Confidentiality of Alcohol and Drug Abuse Patient Records regulations: The Federal rules restrict any use of the information to criminally investigate or prosecute any alcohol or drug abuse patient.[facility] CenterIn the event this information is protected by the Federal Confidentiality of Alcohol and Drug Abuse Patient Records regulations: The Federal rules restrict any use of the information to criminally investigate or prosecute any alcohol or drug abuse patient.[facility] CenterIn the event this information is protected by the Federal Confidentiality of Alcohol and Drug Abuse Patient Records regulations: The Federal rules restrict any use of the information to criminally investigate or prosecute any alcohol or drug abuse patient.[facility] CenterIn the event this information is protected by the Federal Confidentiality of Alcohol and Drug Abuse Patient Records regulations: The Federal rules restrict any use of the information to criminally investigate or prosecute any alcohol or drug abuse patient.[facility] CenterIn the event this information is protected by the Federal Confidentiality of Alcohol and Drug Abuse Patient Records regulations: The Federal rules restrict any use of the information to criminally investigate or prosecute any alcohol or drug abuse patient.[facility] CenterIn the event this information is protected by the Federal Confidentiality of Alcohol and Drug Abuse Patient Records regulations: The Federal rules restrict any use of the information to criminally investigate or prosecute any alcohol or drug abuse patient.[facility] CenterIn the event this information is protected by the Federal Confidentiality of Alcohol and Drug Abuse Patient Records regulations: The Federal rules restrict any use of the information to criminally investigate or prosecute any alcohol or drug abuse patient.[facility] CenterIn the event this information is protected by the Federal Confidentiality of Alcohol and Drug Abuse Patient Records regulations: The Federal rules restrict any use of the information to criminally investigate or prosecute any alcohol or drug abuse patient.[facility] CenterIn the event this information is protected by the Federal Confidentiality of Alcohol and Drug Abuse Patient Records regulations: The Federal rules restrict any use of the information to criminally investigate or prosecute any alcohol or drug abuse patient.[facility] CenterIn the event this information is protected by the Federal Confidentiality of Alcohol and Drug Abuse Patient Records regulations: The Federal rules restrict any use of the information to criminally investigate or prosecute any alcohol or drug abuse patient.[facility] CenterIn the event this information is protected by the Federal Confidentiality of Alcohol and Drug Abuse Patient Records regulations: The Federal rules restrict any use of the information to criminally investigate or prosecute any alcohol or drug abuse patient.[facility] CenterIn the event this information is protected by the Federal Confidentiality of Alcohol and Drug Abuse Patient Records regulations: The Federal rules restrict any use of the information to criminally investigate or prosecute any alcohol or drug abuse patient.[facility] CenterIn the event this information is protected by the Federal Confidentiality of Alcohol and Drug Abuse Patient Records regulations: The Federal rules restrict any use of the information to criminally investigate or prosecute any alcohol or drug abuse patient.[facility] CenterIn the event this information is protected by the Federal Confidentiality of Alcohol and Drug Abuse Patient Records regulations: The Federal rules restrict any use of the information to criminally investigate or prosecute any alcohol or drug abuse patient.[facility] CenterIn the event this information is protected by the Federal Confidentiality of Alcohol and Drug Abuse Patient Records regulations: The Federal rules restrict any use of the information to criminally investigate or prosecute any alcohol or drug abuse patient.[facility] CenterIn the event this information is protected by the Federal Confidentiality of Alcohol and Drug Abuse Patient Records regulations: The Federal rules restrict any use of the information to criminally investigate or prosecute any alcohol or drug abuse patient.[facility] CenterIn the event this information is protected by the Federal Confidentiality of Alcohol and Drug Abuse Patient Records regulations: The Federal rules restrict any use of the information to criminally investigate or prosecute any alcohol or drug abuse patient.[facility] CenterIn the event this information is protected by the Federal Confidentiality of Alcohol and Drug Abuse Patient Records regulations: The Federal rules restrict any use of the information to criminally investigate or prosecute any alcohol or drug abuse patient.[facility] CenterIn the event this information is protected by the Federal Confidentiality of Alcohol and Drug Abuse Patient Records regulations: The Federal rules restrict any use of the information to criminally investigate or prosecute any alcohol or drug abuse patient.[facility] CenterIn the event this information is protected by the Federal Confidentiality of Alcohol and Drug Abuse Patient Records regulations: The Federal rules restrict any use of the information to criminally investigate or prosecute any alcohol or drug abuse patient.[facility] CenterIn the event this information is protected by the Federal Confidentiality of Alcohol and Drug Abuse Patient Records regulations: The Federal rules restrict any use of the information to criminally investigate or prosecute any alcohol or drug abuse patient.[facility] CenterIn the event this information is protected by the Federal Confidentiality of Alcohol and Drug Abuse Patient Records regulations: The Federal rules restrict any use of the information to criminally investigate or prosecute any alcohol or drug abuse patient.[facility] CenterIn the event this information is protected by the Federal Confidentiality of Alcohol and Drug Abuse Patient Records regulations: The Federal rules restrict any use of the information to criminally investigate or prosecute any alcohol or drug abuse patient.[facility] CenterIn the event this information is protected by the Federal Confidentiality of Alcohol and Drug Abuse Patient Records regulations: The Federal rules restrict any use of the information to criminally investigate or prosecute any alcohol or drug abuse patient.[facility] CenterIn the event this information is protected by the Federal Confidentiality of Alcohol and Drug Abuse Patient Records regulations: The Federal rules restrict any use of the information to criminally investigate or prosecute any alcohol or drug abuse patient.[facility] CenterIn the event this information is protected by the Federal Confidentiality of Alcohol and Drug Abuse Patient Records regulations: The Federal rules restrict any use of the information to criminally investigate or prosecute any alcohol or drug abuse patient.[facility] CenterIn the event this information is protected by the Federal Confidentiality of Alcohol and Drug Abuse Patient Records regulations: The Federal rules restrict any use of the information to criminally investigate or prosecute any alcohol or drug abuse patient.[facility] CenterIn the event this information is protected by the Federal Confidentiality of Alcohol and Drug Abuse Patient Records regulations: The Federal rules restrict any use of the information to criminally investigate or prosecute any alcohol or drug abuse patient.[facility] CenterIn the event this information is protected by the Federal Confidentiality of Alcohol and Drug Abuse Patient Records regulations: The Federal rules restrict any use of the information to criminally investigate or prosecute any alcohol or drug abuse patient.[facility] CenterIn the event this information is protected by the Federal Confidentiality of Alcohol and Drug Abuse Patient Records regulations: The Federal rules restrict any use of the information to criminally investigate or prosecute any alcohol or drug abuse patient.[facility] CenterIn the event this information is protected by the Federal Confidentiality of Alcohol and Drug Abuse Patient Records regulations: The Federal rules restrict any use of the information to criminally investigate or prosecute any alcohol or drug abuse patient.[facility] CenterIn the event this information is protected by the Federal Confidentiality of Alcohol and Drug Abuse Patient Records regulations: The Federal rules restrict any use of the information to criminally investigate or prosecute any alcohol or drug abuse patient.[facility] CenterIn the event this information is protected by the Federal Confidentiality of Alcohol and Drug Abuse Patient Records regulations: The Federal rules restrict any use of the information to criminally investigate or prosecute any alcohol or drug abuse patient.[facility] CenterIn the event this information is protected by the Federal Confidentiality of Alcohol and Drug Abuse Patient Records regulations: The Federal rules restrict any use of the information to criminally investigate or prosecute any alcohol or drug abuse patient.[facility] CenterIn the event this information is protected by the Federal Confidentiality of Alcohol and Drug Abuse Patient Records regulations: The Federal rules restrict any use of the information to criminally investigate or prosecute any alcohol or drug abuse patient.[facility] CenterIn the event this information is protected by the Federal Confidentiality of Alcohol and Drug Abuse Patient Records regulations: The Federal rules restrict any use of the information to criminally investigate or prosecute any alcohol or drug abuse patient.[facility] CenterIn the event this information is protected by the Federal Confidentiality of Alcohol and Drug Abuse Patient Records regulations: The Federal rules restrict any use of the information to criminally investigate or prosecute any alcohol or drug abuse patient.[facility] CenterIn the event this information is protected by the Federal Confidentiality of Alcohol and Drug Abuse Patient Records regulations: The Federal rules restrict any use of the information to criminally investigate or prosecute any alcohol or drug abuse patient.[facility] CenterIn the event this information is protected by the Federal Confidentiality of Alcohol and Drug Abuse Patient Records regulations: The Federal rules restrict any use of the information to criminally investigate or prosecute any alcohol or drug abuse patient.[facility] CenterIn the event this information is protected by the Federal Confidentiality of Alcohol and Drug Abuse Patient Records regulations: The Federal rules restrict any use of the information to criminally investigate or prosecute any alcohol or drug abuse patient.[facility] CenterIn the event this information is protected by the Federal Confidentiality of Alcohol and Drug Abuse Patient Records regulations: The Federal rules restrict any use of the information to criminally investigate or prosecute any alcohol or drug abuse patient.[facility] CenterIn the event this information is protected by the Federal Confidentiality of Alcohol and Drug Abuse Patient Records regulations: The Federal rules restrict any use of the information to criminally investigate or prosecute any alcohol or drug abuse patient.[facility] CenterIn the event this information is protected by the Federal Confidentiality of Alcohol and Drug Abuse Patient Records regulations: The Federal rules restrict any use of the information to criminally investigate or prosecute any alcohol or drug abuse patient.[facility] CenterIn the event this information is protected by the Federal Confidentiality of Alcohol and Drug Abuse Patient Records regulations: The Federal rules restrict any use of the information to criminally investigate or prosecute any alcohol or drug abuse patient.[facility] CenterIn the event this information is protected by the Federal Confidentiality of Alcohol and Drug Abuse Patient Records regulations: The Federal rules restrict any use of the information to criminally investigate or prosecute any alcohol or drug abuse patient.[facility] CenterIn the event this information is protected by the Federal Confidentiality of Alcohol and Drug Abuse Patient Records regulations: The Federal rules restrict any use of the information to criminally investigate or prosecute any alcohol or drug abuse patient.[facility] CenterIn the event this information is protected by the Federal Confidentiality of Alcohol and Drug Abuse Patient Records regulations: The Federal rules restrict any use of the information to criminally investigate or prosecute any alcohol or drug abuse patient.[facility] CenterIn the event this information is protected by the Federal Confidentiality of Alcohol and Drug Abuse Patient Records regulations: The Federal rules restrict any use of the information to criminally investigate or prosecute any alcohol or drug abuse patient.[facility] CenterIn the event this information is protected by the Federal Confidentiality of Alcohol and Drug Abuse Patient Records regulations: The Federal rules restrict any use of the information to criminally investigate or prosecute any alcohol or drug abuse patient.[facility] CenterIn the event this information is protected by the Federal Confidentiality of Alcohol and Drug Abuse Patient Records regulations: The Federal rules restrict any use of the information to criminally investigate or prosecute any alcohol or drug abuse patient.[facility] CenterIn the event this information is protected by the Federal Confidentiality of Alcohol and Drug Abuse Patient Records regulations: The Federal rules restrict any use of the information to criminally investigate or prosecute any alcohol or drug abuse patient.[facility] CenterIn the event this information is protected by the Federal Confidentiality of Alcohol and Drug Abuse Patient Records regulations: The Federal rules restrict any use of the information to criminally investigate or prosecute any alcohol or drug abuse patient.[facility] CenterIn the event this information is protected by the Federal Confidentiality of Alcohol and Drug Abuse Patient Records regulations: The Federal rules restrict any use of the information to criminally investigate or prosecute any alcohol or drug abuse patient.[facility] Reason for Visit (unrecogniz ed section and [...] Follow Up Parkinsons Reason Onset Date Comments [facility] Navigation Outreach 11/12/2023 [place] [facility] Reason Comments Cough Congestion and runny nose x6 days Reason Comments Appointment Reason Comments Follow Up Reason Onset Date Comments 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 Bowden Reason Comments Medicare Wellness Exam Reason Onset Date Comments Results 02/10/2025 Reason Comments Outside [id number] Ordered Outside Urology Reason Comments Results Appointment Reason Comments Rhinitis Covid test Reason Onset Date Comments Refill Request 02/26/2025 Reason Comments Abstract Urology Procedure re port Reason Comments Faxed Information Reason Comments Abstract [facility] discharge summar y, Dr. Jara Care Teams (unrecognized sec tion and content) Team Status: Active Member Role Status Dates Dr. Oniel Francis MD Primary Care Provider Active Team Status: Inactive Member Role Status Dates Dr. Oniel Francis MD Primary Care Provider Active Start: January 18, 2025 End: January 18, 2025 Dr. Aramis Larson MD Attending Provider Active S tart: January 18, 2025 End: January 18, 2025 Team Status: Active Member Role Status Dates Dr. Oniel Francis MD Primary Care Provider Active Start: January 19, 2025 Dr. Tate Mcdonough DO Emergency Provider Active Start: January 19, 2025 Dr. Mik Kilgore MD Attending Provider Active Start: January 19, 2025 Team Status: Active Member Role Status Dates Dr. Oniel Francis MD Primary Care Provider Active Start: January 19, 2025 Dr. Tate Mcdonough DO Emergency Provider Active Start: January 19, 2025 Dr. Mik Kilgore MD Admit Provider Active Star t: January 19, 2025 Dr. Mik Kilgore MD Attending Provider Active Start: January 19, 2025 Garage Worker Relationship Specialty Start Date End Date Oniel Francis MD [address] [place] [address] PCP - General Family Practice 05/16/15 No, Referral Referring 10/17/18 Garage Worker Relationship Specialty Start Date End Date Oniel Francis MD [address] [facility] [place] [address] PCP - General Family Practice 05/16/15 No, Referral Referring 10/17/18 Garage Worker Relationship Specialty Start Date End Date Oniel Francis MD [address] [place] [address] PCP - General Family Practice 05/16/15 No, Referral Referring 10/17/18 Garage Worker Relationship Specialty Start Date End Date Oniel Francis MD [address] [facility] [place] [address] PCP - General Family Practice 05/16/15 No, Referral Referring 10/17/18 Garage Worker Relationship Specialty Start Date End Date Oniel Francis MD [address] [facility] [place] [address] PCP - General Family Practice 05/16/15 No, Referral Referring 10/17/18 Garage Worker Relationship Specialty Start Date End Date Oniel Francis MD [address] [facility] [place] [address] PCP - General Family Medicine 05/16/15 No, Referral Referring 10/17/18 Garage Worker Relationship Specialty Start Date End Date Oniel Francis MD [address] [facility] [place] [address] PCP - General Family Medicine 05/16/15 No, Referral Referring 10/17/18 Garage Worker Relationship Specialty Start Date End Date Oniel Francis MD [address] [facility] [place] [address] PCP - General Family Medicine 05/16/15 No, Referral Referring 10/17/18 Garage Worker Relationship Specialty Start Date End Date Oniel Francis MD [address] [facility] [place] [address] PCP - General Family Medicine 05/16/15 No, Referral Referring 10/17/18 Garage Worker Relationship Specialty Start Date End Date Oniel Francis MD [address] [facility] [place] [address] PCP - General Family Medicine 05/16/15 No, Referral Referring 10/17/18 Garage Worker Relationship Specialty Start Date End Date Oniel Francis MD [address] [facility] [place] [address] PCP - General Family Medicine 05/16/15 No, Referral Referring 10/17/18 Garage Worker Relationship Specialty Start Date End Date Oniel Francis MD [address] [facility] [place] [address] PCP - General Family Medicine 05/16/15 No, Referral Referring 10/17/18 Garage Worker Relationship Specialty Start Date End Date Oniel Francis MD [address] [facility] [place] [address] PCP - General Family Medicine 05/16/15 No, Referral Referring 10/17/18 Garage Worker Relationship Specialty Start Date End Date Oniel Francis MD [address] [facility] [place] [address] PCP - General Family Medicine 05/16/15 No, Referral Referring 10/17/18 Garage Worker Relationship Specialty Start Date End Date Oniel Francis MD [address] [facility] [place] [address] PCP - General Family Medicine 05/16/15 No, Referral Referring 10/17/18 Garage Worker Relationship Specialty Start Date End Date Oniel Francis MD [address] [facility] [place] [address] PCP - General Family Medicine 05/16/15 No, Referral Referring 10/17/18 Garage Worker Relationship Specialty Start Date End Date Oniel Francis MD [address] [facility] [place] [address] PCP - General Family Medicine 05/16/15 No, Referral Referring 10/17/18 Garage Worker Relationship Specialty Start Date End Date Oniel Francis MD [address] [facility] [place] [address] PCP - General Family Medicine 05/16/15 No, Referral Referring 10/17/18 Garage Worker Relationship Specialty Start Date End Date Oniel Francis MD [address] [facility] [place] [address] PCP - General Family Medicine 05/16/15 No, Referral Referring 10/17/18 Garage Worker Relationship Specialty Start Date End Date Oniel Francis MD [address] [facility] [place] [address] PCP - General Family Medicine 05/16/15 No, Referral Referring 10/17/18 Garage Worker Relationship Specialty Start Date End Date Oniel Francis MD [address] [facility] [place] [address] PCP - General Family Medicine 05/16/15 No, Referral Referring 10/17/18 Garage Worker Relationship Specialty Start Date End Date Oniel Francis MD [address] [facility] [place] [address] PCP - General Family Medicine 05/16/15 No, Referral Referring 10/17/18 Garage Worker Relationship Specialty Start Date End Date Oniel Francis MD [address] [facility] [place] [address] PCP - General Family Medicine 05/16/15 No, Referral Referring 10/17/18 Garage Worker Relationship Specialty Start Date End Date Oniel Francis MD [address] [facility] [place] [address] PCP - General Family Medicine 05/16/15 No, Referral Referring 10/17/18 Garage Worker Relationship Specialty Start Date End Date Oniel Francis MD [address] [facility] [place] [address] PCP - General Family Medicine 05/16/15 No, Referral Referring 10/17/18 Garage Worker Relationship Specialty Start Date End Date Oniel Francis MD [address] [facility] [place] [address] PCP - General Family Medicine 05/16/15 No, Referral Referring 10/17/18 Garage Worker Relationship Specialty Start Date End Date Oniel Francis MD [address] [facility] [place] [address] PCP - General Family Medicine 05/16/15 No, Referral Referring 10/17/18 Garage Worker Relationship Specialty Start Date End Date Oniel Francis MD [address] [facility] [place] [address] PCP - General Family Medicine 05/16/15 No, Referral Referring 10/17/18 Garage Worker Relationship Specialty Start Date End Date Oniel Francis MD [address] [facility] [place] [address] PCP - General Family Medicine 05/16/15 No, Referral Referring 10/17/18 Garage Worker Relationship Specialty Start Date End Date Oniel Francis MD [address] [facility] [place] [address] PCP - General Family Medicine 05/16/15 No, Referral Referring 10/17/18 Garage Worker Relationship Specialty Start Date End Date Oniel Francis MD [address] [place] [id number] PCP - General Family Medicine 05/16/15 No, Referral Referring 10/17/18 Garage Worker Relationship Specialty Start Date End Date Oniel Francis MD [address] [place] [address] PCP - General Family Medicine 05/16/15 No, Referral Referring 10/17/18 Garage Worker Relationship Specialty Start Date End Date Oniel Francis MD [address] [facility] [place] [address] PCP - General Family Medicine 05/16/15 No, Referral Referring 10/17/18 Garage Worker Relationship Specialty Start Date End Date Oniel Francis MD [address] [facility] [place] [address] PCP - General Family Medicine 05/16/15 No, Referral Referring 10/17/18 Zina Duran APRN.RECOVERY ASSISTANT [address] [place] [address] Engineering Inspector Family [facility] 07/11/24 Ella Valdovinos PA-C [address] [place], [place] [address] [facility] 07/11/24 Garage Worker Relationship Specialty Start Date End Date Oniel Francis MD [address] [place], [place] [id number] [phone] PCP - General Family Medicine 05/16/15 No, Referral Referring 10/17/18 Zina Duran APRN.RECOVERY ASSISTANT [address] [place] [address] [facility] 07/11/24 Ella Valdovinos PA-C [address] [place] [address] [facility] 07/11/24 Garage Worker Relationship Specialty Start Date End Date Oniel Francis MD [address] [place] [address] PCP - General Family Medicine 05/16/15 No, Referral Referring 10/17/18 Zina Duran APRN.RECOVERY ASSISTANT [address] [place] [address] [facility] 07/11/24 Ella Valdovinos PA-C [address] [place] [address] [facility] 07/11/24 Garage Worker Relationship Specialty Start Date End Date Oniel Francis MD [address] [place] [address] PCP - General Family Medicine 05/16/15 No, Referral Referring 10/17/18 Zina Duran APRN.RECOVERY ASSISTANT [address] [place], [place] [id number] [phone] [facility] 07/11/24 Ella Valdovinos PA-C [address] [place], [place] [address] [phone] [facility] 07/11/24 Garage Worker Relationship Specialty Start Date End Date Oniel Francis MD [address] [place] [address] PCP - General Family Medicine 05/16/15 No, Referral Referring 10/17/18 Zina Duran APRN.RECOVERY ASSISTANT [address] [place] [address] [facility] 07/11/24 Ella Valdovinos PA-C [address] [place], [place] [address] [phone] [facility] 07/11/24 Garage Worker Relationship Specialty Start Date End Date Oniel Francis MD [address] [place] [address] PCP - General Family Medicine 05/16/15 No, Referral Referring 10/17/18 Zina Duran APRN.RECOVERY ASSISTANT [address] [place], [place] [id number] [phone] [facility] 07/11/24 Ella Valdovinos PA-C [address] [place] [address] [facility] 07/11/24 Garage Worker Relationship Specialty [place] [address] [place] [phone] PCP - General Family Medicine 05/16/15 No, Referral Referring 10/17/18 Zina Duran, ANGIE.RECOVERY ASSISTANT [address] [place] [address] [phone] [facility] 07/11/24 Ella Valdovinos PA-C [address] [place] [address] [facility] 07/11/24 Garage Worker Relationship Specialty Start Date End Date Oniel Francis MD [address] [place] [address] PCP - General Family Medicine 11/09/24 No, Referral Referring 10/17/18 Zina Duran, ANGIE.RECOVERY ASSISTANT [address] [place] [address] [phone] [facility] 07/11/24 Ella Valdovinos PA-C [facility] [place], [place] [address] [facility] 07/11/24 Team Status: Active Member Role Status Dates Dr. Oniel Francis MD Family Provider Active Dr. Oniel Francis MD Primary Care Provider Active Team Status: Inactive Member Role Status Dates Dr. Oniel Francis MD Primary Care Provider Active Start: January 19, 2025 End: January 19, 2025 Dr. Tate Mcdonough DO Emergency Provider Active Start: January 19, 2025 End: January 19, 2025 Dr. Mik Kilgore MD Admit Provider Active Star t: January 19, 2025 End: January 19, 2025 Dr. Mik Kilgore MD Other Provider Active Star t: January 19, 2025 End: January 19, 2025 Dr. Leti Lu DO Attending Provider Active Start: January 19, 2025 End: January 19, 2025 Graham Gutierrez MD Other Provider Active Start: 2024 End: January 19, 2025 Dr. Brooklyn Peñaloza MD Other Provider Active Start: January 19, 2025 End: January 19, 2025 Bianca Jerry MD Other Provider Active Start : January 19, 2025 End: January 19, 2025 Dr. Kavita Glass DO Other Provider Active St art: January 19, 2025 End: January 19, 2025 Dr. Odessa Wray MD Other Provider Active Start: January 19, 2025 End: January 19, 2025 Dr. Matthew Rushing MD Other Provider Active Sta rt: January 19, 2025 End: January 19, 2025 Dr. Yarely Ackerman MD Other Provider Active Start : January 19, 2025 End: January 19, 2025 Dr. Harinder Hill MD Other Provider Active Start: January 19, 2025 End: January 19, 2025 Dr. Jorge Bui MD Other Provider Active Start : January 19, 2025 End: January 19, 2025 Dr. Nando Rosales MD Other Provider Active Sta rt: January 19, 2025 End: January 19, 2025 Xenia Fournier MD Other Provider Active Start : January 19, 2025 End: January 19, 2025 Dr. Sulaiman Carrasquillo MD Other Provider Active St art: January 19, 2025 End: January 19, 2025 Dr. Aleksandra Gonzales MD Other Provider Active Start : January 19, 2025 End: January 19, 2025 Dr. Zoila Maciel MD Other Provider Active Sta rt: January 19, 2025 End: January 19, 2025 Dr. Audi Phillip MD Other Provider Active Start: January 19, 2025 End: January 19, 2025 Dr. Adebayo Valdovinos MD Other Provider Active St art: January 19, 2025 End: January 19, 2025 Dr. Dali Sanchez MD Other Provider Active Star t: January 19, 2025 End: January 19, 2025 Dr. Ángel King MD Other Provider Active St art: January 19, 2025 End: January 19, 2025 Dr. Dary Villalta MD Other Provider Active Start: January 19, 2025 End: January 19, 2025 Tia Mcleod MD Other Provider Active Start: January 19, 2025 End: January 19, 2025 Team Status: Active Member Role Status Dates Dr. Oniel Francis MD Primary Care Provider Active Start: January 19, 2025 Dr. Aramis Larson MD Attending Provider Active S tart: January 19, 2025 Garage Worker Relationship Specialty Start Date End Date Oniel Francis MD [address] [place] [address] PCP - General Family Medicine 11/09/24 No, Referral Referring 10/17/18 Zina Duran, BUCKLE INSPECTOR.RECOVERY ASSISTANT [address] [place] [phone] Engineering Inspector Family Medicine 01/04/25 Ella Valdovinos PA-C [address] [place] [address] [phone] Engineering Inspector Family Medicine 01/04/25 Garage Worker Relationship Specialty Start Date End Date Oniel Francis MD [address] [place] [place] [phone] PCP - General Family Medicine 11/09/24 No, Referral Referring 10/17/18 Zina Duran, ANGIE.RECOVERY ASSISTANT [address] [place] [phone] Engineering Inspector Family Medicine 01/04/25 Ella Valdovinos PA-C [facility] [place] [address] Engineering Inspector Family Medicine 01/04/25 Garage Worker Relationship Specialty Start Date End Date Oniel Francis MD [address] [place] [address] PCP - General Family Medicine 11/09/24 No, Referral Referring 10/17/18 Zina Duran APRN.RECOVERY ASSISTANT [facility] [place] [address] Engineering Inspector Family Medicine 01/04/25 Ella Valdovinos PA-C [facility] [place] [address] Engineering Inspector Family Medicine 01/04/25 Garage Worker Relationship Specialty Start Date End Date Oniel Francis MD [address] [place] [address] PCP - General Family Medicine 11/09/24 No, Referral Referring 10/17/18 Zina Duran APRN.RECOVERY ASSISTANT [address] [place] [phone] Engineering Inspector Family Medicine 01/04/25 Ella Valdovinos PA-C [facility] [place] [address] Engineering Inspector Family Medicine 01/04/25 Garage Worker Relationship Specialty Start Date End Date Oniel Francis MD [address] [place] [address] PCP - General Family Medicine 11/09/24 No, Referral Referring 10/17/18 Zina Duran APRN.RECOVERY ASSISTANT [address] [place] [phone] Engineering Inspector Family Medicine 01/04/25 Ella Valdovinos PA-C [address] [place] [address] Engineering Inspector Family Medicine 01/04/25 Garage Worker Relationship Specialty Start Date End Date Oniel Francis MD [address] [place] [address] PCP - General Family Medicine 11/09/24 No, Referral Referring 10/17/18 Zina Duran APRN.RECOVERY ASSISTANT [facility] [place] [address] Engineering Inspector Family Medicine 01/04/25 Ella Valdovinos PA-C [address] [place] [address] Engineering Inspector Family Medicine 01/04/25 Garage Worker Relationship Specialty Start Date End Date Oniel Francis MD [address] [place] [address] PCP - General Family Medicine 11/09/24 No, Referral Referring 10/17/18 Zina Duran, ANGIE.RECOVERY ASSISTANT [address] [place] [address] Engineering Inspector Family Medicine 01/04/25 Ella Valdovinos PA-C [address] [place] [address] Engineering Inspector Family Medicine 01/04/25 Team Status: Active Member Role/Relationship Status Dates Dr. Oniel Francis MD Primary Care Provider Active Team Status: Inactive Member Role/Relationship Status Dates Dr. Oniel Francis MD Primary Care Provider Active Start: January 18, 2025 End: January 18, 2025 Dr. Aramis Larson MD Attending Provider Active S tart: January 18, 2025 End: January 18, 2025 Team Status: Active Member Role/Relationship Status Dates Dr. Oniel Francis MD Primary Care Provider Active Start: January 19, 2025 Dr. Tate Mcdonough DO Emergency Provider Active Start: January 19, 2025 Dr. Mik Kilgore MD Attending Provider Active Start: January 19, 2025 Team Status: Inactive Member Role/Relationship Status Dates Dr. Oniel Francis MD Primary Care Provider Active Start: January 19, 2025 End: January 19, 2025 Dr. Tate Mcdonough DO Emergency Provider Active Start: January 19, 2025 End: January 19, 2025 Dr. Mik Kilgore MD Admit Provider Active Star t: January 19, 2025 End: January 19, 2025 Dr. Mik Kilgore MD Other Provider Active Star t: January 19, 2025 End: January 19, 2025 Dr. Leti Lu DO Attending Provider Active Start: January 19, 2025 End: January 19, 2025 Graham Gutierrez MD Other Provider Active Start: 2024 End: January 19, 2025 Dr. Brooklyn Peñaloza MD Other Provider Active Start: January 19, 2025 End: January 19, 2025 Bianca Jerry MD Other Provider Active Start : January 19, 2025 End: January 19, 2025 Dr. Kavita Glass DO Other Provider Active St art: January 19, 2025 End: January 19, 2025 Dr. Odessa Wray MD Other Provider Active Start: January 19, 2025 End: January 19, 2025 Dr. Matthew Rushing MD Other Provider Active Sta rt: January 19, 2025 End: January 19, 2025 Dr. Yarely Ackerman MD Other Provider Active Start : January 19, 2025 End: January 19, 2025 Dr. Har[place] Hill MD Other Provider Active Start: January 19, 2025 End: January 19, 2025 Dr. Jorge Bui MD Other Provider Active Start : January 19, 2025 End: January 19, 2025 Dr. Nando Rosales MD Other Provider Active Sta rt: January 19, 2025 End: January 19, 2025 Xenia Fournier MD Other Provider Active Start : January 19, 2025 End: January 19, 2025 Dr. Sulaiman Carrasquillo MD Other Provider Active St art: January 19, 2025 End: January 19, 2025 Dr. Aleksandra Gonzales MD Other Provider Active Start : January 19, 2025 End: January 19, 2025 Dr. Zoila Maciel MD Other Provider Active Sta rt: January 19, 2025 End: January 19, 2025 Dr. Audi Phillip MD Other Provider Active Start: January 19, 2025 End: January 19, 2025 Dr. Adebayo Valdovinos MD Other Provider Active St art: January 19, 2025 End: January 19, 2025 Dr. Dail Sanchez MD Other Provider Active Star t: January 19, 2025 End: January 19, 2025 Dr. Ángel King MD Other Provider Active St art: January 19, 2025 End: January 19, 2025 Dr. Dary Villalta MD Other Provider Active Start: January 19, 2025 End: January 19, 2025 Tia Mcleod MD Other Provider Active Start: January 19, 2025 End: January 19, 2025 Team Status: Active Member Role/Relationship Status Dates Dr. Oniel Francis MD Primary Care Provider Active Start: January 19, 2025 Dr. Aramis Larson MD Attending Provider Active S tart: January 19, 2025 Team Status: Active Member Role/Relationship Status Dates Dr. Oniel Francis MD Primary Care Provider Active Start: January 27, 2025 Dr. Leti Lu DO Attending Provider Active Start: January 27, 2025 Dr. Leti Lu DO Referring Provider Active Start: January 27, 2025 Team Status: Inactive Member Role/Relationship Status Dates Dr. Oniel Francis MD Primary Care Provider Active Start: February 23, 2025 End: February 23, 2025 Dr. Andi Jara MD Attending Provider Active Start: February 23, 2025 End: February 23, 2025 Dr. Andi Jara MD Referring Provider Active Start: February 23, 2025 End: February 23, 2025 Garage Worker Relationship Specialty Start Date End Date Oniel Francis MD [address] [place] [address] PCP - General Family Medicine 11/09/24 No, Referral Referring 10/17/18 Zina Duran, BUCKLE INSPECTOR.RECOVERY ASSISTANT [facility] [place] [address] Engineering Inspector Family Medicine 01/04/25 Ella Valdovinos PA-C [address] [place] [phone] Engineering Inspector [facility] Medicine 01/04/25 Garage Worker Relationship Specialty Start Date End Date Oniel Francis MD [address] [place] [address] PCP - General Family Medicine 11/09/24 No, Referral Referring 10/17/18 Zina Duran, BUCKLE INSPECTOR.RECOVERY ASSISTANT [address] [place] [phone] Engineering Inspector Family Medicine 01/04/25 Ella Valdovinos PA-C [facility] [place] [address] [facility] Team Status: Active Member Role/Relationship Status Dates Dr. Oniel Francis MD Primary Care Provider Active Start: January 27, 2025 Dr. Aramis Larson MD Attending Provider Active S tart: January 27, 2025 Dr. Leti Lu DO Referring Provider Active Start: January 27, 2025 Team Status: Inactive Member Role/Relationship Status Dates Dr. Oniel Francis MD Primary Care Provider Active Start: February 23, 2025 End: February 23, 2025 Dr. Andi Jara MD Attending Provider Active Start: February 23, 2025 End: February 23, 2025 Dr. Andi Jara MD Referring Provider Active Start: February 23, 2025 End: February 23, 2025 Team Status: Inactive Member Role/Relationship Status Dates Dr. Oniel Francis MD Primary Care Provider Active Start: April 07, 2025 End: April 08, 2025 Dr. Andi Jara MD Admit Provider Active Start: April 07, 2025 End: April 08, 2025 Dr. Andi Jara MD Attending Provider Active Start: April 07, 2025 End: April 08, 2025 Dr. Andi Jara MD Referring Provider Active Start: April 07, 2025 End: April 08, 2025 Goals (unrecognized section and content) Goals [...] BE BASED ON THE PRIMARY CLINICAL RECORDS. [employer] [facility]. provides no warranty or guarantee of the accuracy or completeness of information in this document.
[2025-04-10 07:01] LABS: Anion Gap 13 (5-15); BUN 29 mg/dL (4-19); BUN/Creat Ratio 21.9 RATIO (10-20); Calcium,Total 9.7 mg/dL (7.6-11.0); Carbon Dioxide 19.7 mmol/L (21.0-32.0); Chloride 103 mmol/L (98-108); Estimated Creatinine Clearance 44.25 ml/min (50-250); Glucose 166 mg/dL (70-99); Potassium 4.2 mmol/L (3.3-5.1)
[2025-04-10 07:17] LABS: Red Blood Cells-Urine 10-25 SEEN /hpf (0-5)
[2025-04-10 07:30] VITALS: BP 153/69; PULSE 66; RESP 18; TEMP 36.9; O2SAT 93
== END 2025-04-10 08:05 | disposition home or self-care (01) ==
LOC: ED 06:44
PROVIDERS: Emergency Provider Emergency Medicine; PCP Family Medicine; Visit Provider Emergency Medicine
DX: R10.9 Unspecified abdominal pain (principal); I10 Essential (primary) hypertension; N39.41 Urge incontinence; E78.5 Hyperlipidemia, unspecified; N32.81 Overactive bladder; I25.10 Atherosclerotic heart disease of native coronary artery without angina pectoris; Z98.890 Other specified postprocedural states; N40.1 Benign prostatic hyperplasia with lower urinary tract symptoms
CPT/HCPCS: 51702; 80048; 81001; 85025; 87077; 87086; 87088; 87186; 99285; A4216

== ENCOUNTER 2025-04-10 18:47 | Emergency (ER) | payer MEDICARE, SELFPAY ==
[2025-04-10 18:48] VITALS: BP 104/66; PULSE 72; RESP 18; TEMP 36.7; O2SAT 96
[2025-04-10 18:51] VITALS: BMI 30.5
--- NOTE | 2025-04-10 18:57 | ED.RN ---
PT HERE THIS MORNING, HAD GRAY PLACED IN THE ED AFTER A TURP SATURDAY. URINE RETENTION SINCE D/C TODAY
--- NOTE | 2025-04-10 19:35 | EX.ED.GUMALE ---
HPI History of Present Illness Chief Complaint: Cárdenas C/O Narrative Narrative: Chief complaint and HPI: 84-year-old male with recent transurethral section of prostate by Dr. Jara presents for evaluation of urinary retention and hematuria. Associated symptom is suprapubic abdominal pain. Patient was seen early this morning for same complaint in which she had Cárdenas catheter placed. He states his symptoms improved with the Cárdenas catheter however he developed urinary retention and has not been able to urinate into the Cárdenas bag since noon. He denies any fever, chills, shortness of breath, chest pain, nausea, vomiting. Review of systems: See HPI Medications: As listed on the chart Allergies: As listed on the chart PFSH: Per chart Vital signs: As listed on the chart. Reviewed. Physical exam: Gen: A&O x3, NAD Head: Normocephalic, atraumatic Eyes: No sclera icterus, conjunctiva clear ENT: Moist mucous membranes Neck: Trachea midline, No JVD CV: RRR, no murmurs, no peripheral edema Resp: Lungs CTA BL, no w/r/c GI: Abd soft, distended suprapubically secondary to bladder, tender to palpation suprapubically, no r/r/g : No CVA tenderness. Circumcised penis. No penile tenderness or discharge. No penile or testicular swelling. Normal lie and position of the testicles. No testicular tenderness, masses, or skin changes. No rashes. 16 Jamaican Cárdenas catheter in place with dried blood at the penile meatus. Minimal/bloody urine in Cárdenas catheter. 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Instructions ?Recorded ?Last Taken ?Type acetaminophen 500 mg tablet 1,000 mg PO TID PRN fever or pain 05/29/19 Unknown History aspirin 81 mg chewable tablet 81 mg PO DAILY PER DR 12/22/19 03/17/25 History Held on 04/07/25. Instructions: Resume on 04/21/25. carbidopa 25 mg-levodopa 100 mg 3 tab PO TID PARKINSONS 02/03/21 04/07/25 History tablet levothyroxine 25 mcg tablet 25 mcg PO DAILY THYROID 02/03/21 04/07/25 History atorvastatin 80 mg tablet 80 mg PO QHS CHOLESTEROL 01/19/25 04/06/25 History propranolol 80 mg capsule,24 80 mg PO Q24H BP 01/19/25 04/07/25 History hr,extended release tamsulosin 0.4 mg capsule 0.[address] PO QHS PER DR 01/19/25 04/06/25 History clopidogrel 75 mg tablet (Plavix) 75 mg PO DAILY BLOOD THINNER 03/24/25 Unknown History Held on 04/07/25. Instructions: Resume on 04/21/25. nitroglycerin 0.4 mg sublingual 0.4 mg sublingual Q5M PRN CHEST 03/24/25 Unknown History tablet PAIN ezetimibe 10 mg tablet 10 mg PO DAILY 03/25/25 04/06/25 History finasteride 5 mg tablet 5 mg PO QHS 03/25/25 04/06/25 History ciprofloxacin HCl 500 mg tablet 500 mg PO BID 7 days #14 TABLETS 04/10/25 Unknown Rx Allergy/AdvReac Type Severity Reaction Status Date / Time iodine Allergy Other Verified 04/10/25 18:48 Penicillins Allergy Hives Verified 04/10/25 18:48 Family History Mother Heart disease Colon cancer Father Diabetes Sister Heart disease Brother Heart disease Surgical History History of total left knee replacement History of single vessel coronary artery bypass History of cataract extraction History of colonoscopy (~2014) History of left heart catheterization (08/26/18) H/O coronary artery bypass surgery (10/2018) H/O aortic valve replacement (10/2018) History of left-sided carotid endarterectomy (2008) History of hernia repair History of cholecystectomy History of tonsillectomy Social History Smoking Status: Never smoker alcohol intake: current alcohol intake frequency: a few times a month Alcohol type: beer and wine substance use type: does not use caffeine: No EXAM Physical Exam Const Vital Signs: 04/10/25 18:48 Temperature 98.1 F Temperature Source Oral Pulse Rate 72 Respiratory Rate 18 Blood Pressure 104/66 Blood Pressure Mean 78 Pulse Ox 96 Oxygen Delivery Method Room Air MDM MDM MDM Narrative Medical decision making narrative: 84-year-old male with recent transurethral resection of prostate by Dr. Jara presents for evaluation of urinary retention and hematuria. Associated symptom is suprapubic abdominal pain. Patient was seen early this morning for same complaint in which she had Cárdenas catheter placed. He states his symptoms improved with the Cárdenas catheter however he developed urinary retention and has not been able to urinate into the Cárdenas bag since noon. On chart review, patient had basic labs performed earlier this morning that were relatively unremarkable. He did have a UA that was concerning for UTI and placed on a 7-day course of ciprofloxacin. Physical exam shows a distended bladder with hematuria and a 16 Jamaican catheter. See above. Differential diagnosis includes but is not limited to urinary retention, hematuria, electrolyte abnormality, NAVDEEP, UTI. Will change out patient's Cárdenas catheter for a larger Jamaican such as a 22F or 20F. Will perform bladder irrigation. Will obtain basic labs including a urine. I do not think any CT abdomen pelvis is needed at this time. Bladder scan greater than 500. Patient retaining. 22 Jamaican catheter placed. Patient's symptoms immediately improved once Cárdenas catheter was placed. Patient had hematuria with blood clots with Cárdenas insertion and urine output. Irrigated to clear. CBC with mild leukocytosis of 12.8. No anemia. Same leukocytosis earlier today. Patient's leukocytosis was similar this morning. BMP relatively unremarkable without NAVDEEP. UA positive for UTI. Patient already on ciprofloxacin. Will send for another urine culture. Patient stable to discharge home. Follow-up with urology. He confirmed understand the plan. Impression: 1. Urinary retention 2. Hematuria 3. UTI 4. Recent TURP Lab Data Labs: Laboratory Results - last 24 hr 04/10/25 20:09 WBC 12.8 H RBC 3.96 L Hgb 13.0 Hct 37.0 L MCV 93.4 MCH 32.8 H MCHC 35.1 RDW Std Deviation 45.1 H RDW Coeff of [place] 13.1 Plt Count 194 MPV 10.2 Immature Gran % (Auto) 0.600 Neut % (Auto) 65.7 Lymph % (Auto) 21.9 [place] % (Auto) 8.3 Eos % (Auto) 3.1 Baso % (Auto) 0.4 Absolute Neuts (auto) 8.4 H Absolute Lymphs (auto) 2.81 Nucleated RBC % 0 Sodium 139 Potassium 3.8 Chloride 105 Carbon Dioxide 19.9 L Anion Gap 14 BUN 25 H Creatinine 0.92 Estim Creat Clear Calc 64.56 Est GFR (MDRD) Non-Af 83 BUN/Creatinine Ratio 26.9 H Glucose 120 H Calcium 9.6 Urine Color Brown Urine Clarity Cloudy Urine pH 6.0 Ur Specific [place] 1.010 Urine Protein 100 H Urine Glucose (UA) Normal Urine Ketones 5 H Urine Occult Blood 250 H Urine Nitrite Positive H Urine Bilirubin Negative Urine Urobilinogen Normal Ur Leukocyte Esterase 100 H Urine RBC 10-25 SEEN Urine WBC 5-10 SEEN Ur Squamous Epith Cells 0-5 SEEN Urine Bacteria 3+ Urine Mucus 0 SEEN Discharge Plan Triage Chief Complaint: Cárdenas C/O ED Provider: Juno Bradley Dx/Rx/DC Orders Prescriptions: No Action acetaminophen 500 mg tablet 1,000 mg PO TID PRN (Reason: fever or pain) carbidopa-levodopa 25-100 mg tablet 3 tab PO TID levothyroxine 25 mcg tablet 25 mcg PO DAILY aspirin 81 mg tablet,chewable 81 mg PO DAILY Patient Comments: heart health clopidogrel [Plavix] 75 mg tablet 75 mg PO DAILY Patient Comments: Patient never started after TIA nitroglycerin 0.4 mg tablet, sublingual 0.4 mg sublingual Q5M PRN (Reason: CHEST PAIN) Rx Instructions: PLACE 1 TABLET UNDER THE TONGUE AND ALLOW TO DISSOLVE EVERY 5 TO 15 MINUTES FOR CHEST PAIN. DO NOT EXCEED 3 DOSES ezetimibe 10 mg tablet 10 mg PO DAILY finasteride 5 mg tablet 5 mg PO QHS atorvastatin 80 mg tablet 80 mg PO QHS propranolol 80 mg capsule,extended release 24 hr 80 mg PO Q24H tamsulosin 0.4 mg capsule 0.8 mg PO QHS ciprofloxacin HCl 500 mg tablet 500 mg PO BID 7 Days Qty: 14 0RF Primary Care Provider: Oniel Posada Referrals: Oniel Posada MD [Primary Care Provider] - Print Language: Greek
[2025-04-10 20:18] LABS: Mucous, Urine 0 SEEN /hpf (<or=2+)
[2025-04-10 20:19] LABS: Hematocrit 37.0 % (40-54); Hemoglobin 13.0 g/dL (13.0-16.5); Immature Granulocytes Count 0.080 X10^3/uL (0.0-0.0); Mean Corp Hgb Conc 35.1 g/dL (32-36); Mean Corpuscular Volume 93.4 fL (80-94); Mean Platelet Vol. 10.2 fl (6.2-12.0); NRBC Flagged by Analyzer 0 % (0-5); Platelet Count 194 K/mm3 (150-450); RBC Distribution Width CV 13.1 % (11.6-14.6); RBC Distribution Width SD 45.1 fl (35.1-43.9); Red Blood Count 3.96 M/mm3 (4.6-6.2); White Blood Count 12.8 K/mm3 (4.4-11.0)
--- OUTSIDE RECORDS SUMMARY | 2025-04-10 20:19 | XMS RPT_ITS | CCD ---
Author Organization [facility] Care Team Providers Care Binder Layer Name Role Phone KIZZY BAILEY Attending Unavailable KIZZY BIALEY Referring Unavailable Oniel Francis Primary Care Unavailable KIZZY BAILEY Attending Unavailable KIZZY BAILEY Referring Unavailable Oniel Francis Primary Care Unavailable ARLENE ROMAN Admitting Unavailable ARLENE ROMAN Attending Unavailable Oniel Francis Primary Care Unavailable Oniel Francis MD Primary Care Provider No, Referral Unavailable Oniel Molina MD Primary Care Provider Oniel Francis MD Primary Care Provider Oniel Francis MD Primary Care Provider No, [...] MD Admitting Unavailab AMY Shine Consulting Unavailable Bree ADAMS.Zina DISLA Unavailable Ella Valdovinos PA-C Unavailable Oniel Francis MD Primary Care Provider [phone] Dr. Oniel Francis MD Primary Care Provider Dr. Aramis Larson MD Attending Provider Dr. Tate Mcdonough DO Emergency Provider Jame BARTH, Dr. Houser Attending Provider Jame BARTH, Dr. Houser Admit Provider Jame BARTH, Dr. Houser Other Provider Dr. Leti Lu DO Attending Provider Brenda BARTH, Graham Other Provider Unavailable Jh BARTH, Dr. Barahona Other Provider Bianca Jerry MD Other Provider Unavailable Quan ARMIJO, Dr. Walls Other Provider Nils BARTH, Dr. Saxena Other Provider Сергей BARTH, Dr. Castro Other Provider Tyron BARTH, Dr. Pritchett Other Provider Liz BARTH, Dr. Pizano Other Provider [phone] Hao BARTH, Dr. Barlow Other Provider Bobby BARTH, Dr. Collier Other Provider Irlanda BARTH, Xenia Other Provider Foreign BARTH, Dr. Hilario Other Provider Christian BARTH, Dr. Lake Other Provider Janell BARTH, Dr. Cummings Other Provider Kenji BARTH, Dr. Audi Milton Other Provider [phone] Bonifacio BARTH, Dr. Fiore Other Provider [phone] Laura BARTH, Dr. Mcnally Other Provider Christine BARTH, Dr. Neal Other Provider Pawan BARTH, Dr. Foote Other Provider Unavailable Harsha BARTH, Yousef Other Provider Unavailable Bree ADAMS.CRYPTOGRAPHIC CLERK, Zina Unavailable Bonifacio AGUILAR, Ella Unavailable TereletsDr. Leti coleman DO Referring Provider Estefani BARTH, Dr. Andi Jaramillo Attending Provider [phone] Estefani BARTH, Dr. Andi Jaramillo Referring Provider Estefani BARTH, Dr. Andi Jaramillo Admit Provider [phone] Tito, Oniel Primary Care Unavailable Mik Kilgore Attending Unavailable Tito, Oniel Primary Care Unavailable Marsha, Aramis Attending Unavailable Tito, Oniel Primary Care Unavailable Zina Duran Referring Unavailable Zina Duran Attending Unavailable Leti Lu Attending Unavailable Tito, Oniel Primary Care Unavailable Mik Kilgore Admitting Unavailable Mik Kilgore Consulting Unavailable Graham Gutierrez Consulting Unavailable Brooklyn Peñaloza Consulting Unavailable Bianca Jerry Consulting Unavailable Kavita Glass Consulting Unavailable Odessa Wray Consulting Unavailable Matthew Rushing Consulting Unavailable Yarely Ackerman Consulting Unavailable Harinder Hill Consulting Unavailable Jorge Bui Consulting Unavailable Nando Rosales Consulting Unavailable Xenia Fournier Consulting Unavailable Sulaiman Carrasquillo Consulting Unavailable Aleksandra Gonzales Consulting Unavailable Zoila Maciel Consulting Unavailable Audi Phillip Consulting UnavailAdebayo Alan Consulting Unavailable Dali Sanchez Consulting Unavailable Ángel King Consulting Unavailable Dary Villalta Consulting Unavailable Tia Mcleod Consulting Unavailable Tito, Oniel Primary Care Unavailable Leti Lu Referring Unavailable Marsha Aramis Attending Unavailable Tito, Oniel Primary Care Unavailable Andi Jara Admitting Unavailable Andi Jara Attending Unavailable Andi Jara Referring Unavailable Tito, Oniel Primary Care Unavailable EstefaniAndi madera Referring Unavailable Andi Jara Attending Unavailable Leti Lu Attending Unavailable Leti Lu Referring Unavailable Tito, Oniel Primary Care Unavailable Tito, Oniel Primary Care Unavailable Pola Larsonril Attending Unavailable Dr. Ronn Olson DO Emergency Provider [phone] MARJ MACKEY Referring Unavailable TITO, ONIEL A Primary Care Unavailable ABBY PATE Attending Unavailable ABBY PATE Referring Unavailable TITO, ONIEL A Primary Care Unavailable MARJ MACKEY Referring Unavailable TITO, ONIEL A Primary Care Unavailable TITO, ONIEL A Attending Unavailable TITOBRYAN SMITHREY A Primary Care Unavailable ELLA VALDOVINOS Referring Unavailable TITO, ONIEL A Primary Care Unavailable TITO, ONIEL A Primary Care Unavailable LETI RODRIGUEZ Attending Unavailable ABBY PATE Attending Unavailable ABBY PATE Referring Unavailable TITO, ONIEL A Primary Care Unavailable ZINA DURAN Attending Unavailable TITOBRYAN SMITHREY A Primary Care Unavailable ZINA DURAN Referring Unavailable TITO, ONIEL A Primary Care Unavailable MARJ MACKEY Attending Unavailable MARJ MACKEY Referring Unavailable BRYAN FRANCISREY A Primary Care Unavailable Allergies Allergy Classification Reported Allergen(s) Allergy Type Date of Onset Reaction(s) Facility Iodine (and Iodine containting drugs) (2 sources) Iodine Drug Allergy 3 Other: See Comments [facility] Penicillins (antibiotic) (2 sources) Penicillin G Drug Allergy 3 [facility] (20 sources) Iodine; Translations: [IODINE] Drug Allergy 3 Other: See Comments [facility] Repository (20 sources) Penicillin; Translations: [PENICILLIN G] Drug Allergy 3 [facility] Repository (3 sources) Contrast media; Translations: [iodinated radiocontrast agents] Allergy to substance Hypotension [facility] (3 sources) Penicillin; Translations: [penicillin] Drug Allergy Rash [facility] (6 sources) Penicillins Allergy to substance 1 [facility] (1 source) Penicillins Drug allergy (disorder) 5 [facility] Repository Medications Current Medications Medication Drug Class(es) Dates Sig (Normalized) Sig (Original) acetaminophen 500 mg oral capsule (20 sources) Start: 02-19-2024 End: 03-04-2024 take 1 capsule by mouth once daily acetaminophen 500 mg oral capsule Dose : 1,000 mg = 2 cap(s), Oral, TID, PRN for pain, not to exceed 3000 mg/day, # 100 cap(s), 0 Refill(s), 03/04/24 8:41:00 AM EDT, Pharmacy: [facility]/pharmacy #[id number], 170.2, cm, 02/18/24 17:02:00 EDT, [...] on above: Take 1,000 mg by filemon every 8 hours as needed for Pain. acetaminophen 500 mg / diphenhydrAMINE hydrochloride 25 mg oral tablet (3 sources) Histamine-1 Receptor Antagonist Start: 4 take 1 tablet by mouth once daily at bedtime as needed for pain Tylenol PM Extra Zina Duran, EMBEDDED SOFTWARE ENGINEER-C Status: REG CLI Ordering Dr: Zina Duran EMBEDDED SOFTWARE ENGINEER-C Date: 05/08/24 Location: [facility] Sex: M C [...] report was called and/or faxed to Zina Druan @ [phone] @ 13:20. VL/Venous Duplex US - Claudy [...] Referring Physician: Oniel Francis Performed By: Ashtyn Foster RDCS, RVT 05/08/242250 Date Carloz Voss MD CC: EMBEDDED SOFTWARE ENGINEER-C Zina Duran; Dr. Oniel Francis MD Date Dictated: 05/08/24 1257 Date Transcribed: 05/08/242250 Finance Business Partner: Signed Normal [facility] CBC W Auto Differential pane l (Bld)on 05-07-2024 Basophils (Bld) [#/Vol] 0.05 10*3/uL Normal <0.11 [facility] Comment on above: Order Comment: Speci men Type: BLOOD SPECIMENOrdering Facility: [facility] Address: [address] [place] [address] Performed By: #### 5 7021-8 ####[facility] LABCLIA [id number] [place] [address] [place] Basophils/100 WBC (Bld) 0.8 % Normal [facility] Comment on above: Order Comment: Speci men Type: BLOOD SPECIMENOrdering Facility: [facility] Address: [address] [place] [address] Performed By: #### 5 7021-8 ####[facility] LABCLIA [id number] [place] [address] [place] Differential cell count method Nom (Bld) Auto Normal [facility] Comment on above: Order Comment: Speci men Type: BLOOD SPECIMENOrdering Facility: [facility] Address: [address] [place] [address] Performed By: #### 5 7021-8 ####[facility] LABCLIA [id number] [place] [address] [place] Eosinophils (Bld) [#/Vol] 0.42 10*3/uL Normal <0.46 [facility] Comment on above: Order Comment: Speci men Type: BLOOD SPECIMENOrdering Facility: [facility] Address: [address] [place] [address] Performed By: #### 5 7021-8 ####[facility] LABCLIA [id number] [place] [address] [place] Eosinophils/100 WBC (Bld) 6.3 % Normal [facility] Comment on above: Order Comment: Speci men Type: BLOOD SPECIMENOrdering Facility: [facility] Address: [address] [place] [address] Performed By: #### 5 7021-8 ####[facility] LABIA [id number] [place] [address] [place] Erythrocyte distribution width (RBC) [Ratio] 12.8 % Normal 11.5-15.0 [facility] Comment on above: Order Comment: Speci men Type: BLOOD SPECIMENOrdering Facility: [facility] Address: [address] [place] [address] Performed By: #### 5 7021-8 ####[facility]CL[facility] [id number] [place] [address] [place] Hematocrit (Bld) [Volume fraction] 41.0 % Normal 39.0-51.0 [facility] Comment on above: Order Comment: Speci men Type: BLOOD SPECIMENOrdering Facility: [facility] Address: [address] [place] [address] Performed By: #### 5 7021-8 ####[facility] LABCLIA [id number] [place] [address] [place] Hemoglobin (Bld) [Mass/Vol] 13.7 g/dL Normal 13.0-17.0 [facility] Comment on above: Order Comment: Speci men Type: BLOOD SPECIMENOrdering Facility: [facility] Address: [address] [place] [address] Performed By: #### 5 7021-8 ####[facility] LABCLIA [id number] [place] [address] [place] Immature granulocytes (Bld) [#/Vol] 0.03 10*3/uL Normal <0.10 [facility] Comment on above: Order Comment: Speci men Type: BLOOD SPECIMENOrdering Facility: [facility] Address: [address] [place] [address] Performed By: #### 5 7021-8 ####[facility] LABCLIA [id number] [place] [address] [place] Immature granulocytes/100 WBC (Bld) 0.5 % Normal [facility] Comment on above: Order Comment: Speci men Type: BLOOD SPECIMENOrdering Facility: [facility] Address: [address] [place] [address] Performed By: #### 5 7021-8 ####[facility] LABIA [id number] [place] [address] [place] Lymphocytes (Bld) [#/Vol] 2.63 10*3/uL Normal 1.00-4.00 [facility] Comment on above: Order Comment: Speci men Type: BLOOD SPECIMENOrdering Facility: [facility] Address: [address] [place] [address] Performed By: #### 5 7021-8 ####[facility] LABCLIA [id number] [place] [address] [place] Lymphocytes/100 WBC (Bld) 39.5 % Normal [facility] Comment on above: Order Comment: Speci men Type: BLOOD SPECIMENOrdering Facility: [facility] Address: [address] [place] [address] Performed By: #### 5 7021-8 ####[facility] LABIA [id number] [place] [address] [place] MCH (RBC) [Entitic mass] 32.5 pg Normal 26.0-34.0 [facility] Comment on above: Order Comment: Speci men Type: BLOOD SPECIMENOrdering Facility: [facility] Address: [address] [place] [address] Performed By: #### 5 7021-8 ####[facility] LABIA [id number] [place] [address] [place] MCHC (RBC) [Mass/Vol] 33.4 g/dL Normal 30.5-36.0 [facility] Comment on above: Order Comment: Speci men Type: BLOOD SPECIMENOrdering Facility: [facility] Address: [address] [place] [address] Performed By: #### 5 7021-8 ####[facility] LABIA [id number] [place] [address] [place] MCV (RBC) [Entitic vol] 97.2 fL Normal 80.0-100.0 C [facility] Comment on above: Order Comment: Speci men Type: BLOOD SPECIMENOrdering Facility: [facility] Address: [address] [place] [address] Performed By: #### 5 7021-8 ####[facility] LABIA [id number] [place] [address] [place] Monocytes (Bld) [#/Vol] 0.66 10*3/uL Normal <0.87 [facility] Comment on above: Order Comment: Speci men Type: BLOOD SPECIMENOrdering Facility: [facility] Address: [facility] [place] [address] Performed By: #### 5 7021-8 ####[facility] LABCLIA [id number] [place] [address] [place] Monocytes/100 WBC (Bld) 9.9 % Normal [facility] Comment on above: Order Comment: Speci men Type: BLOOD SPECIMENOrdering Facility: [facility] Address: [address] [place] [address] Performed By: #### 5 7021-8 ####[facility] LABCLIA [id number] [place] [address] [place] Neutrophils (Bld) [#/Vol] 2.86 10*3/uL Normal 1.45-7.50 [facility] Comment on above: Order Comment: Speci men Type: BLOOD SPECIMENOrdering Facility: [facility] Address: [address] [place] [address] Performed By: #### 5 7021-8 ####[facility] LABCLIA [id number] [place] [address] [place] Neutrophils/100 WBC (Bld) 43.0 % Normal [facility] Comment on above: Order Comment: Speci men Type: BLOOD SPECIMENOrdering Facility: [facility] Address: [address] [place] [address] Performed By: #### 5 7021-8 ####[facility] LABCLIA [id number] [place] [address] [place] Nucleated RBC (Bld) [#/Vol] 10*3/uL Normal <0.01 [facility] Comment on above: Order Comment: Speci men Type: BLOOD SPECIMENOrdering Facility: [facility] Address: [address] [place] [address] Performed By: #### 5 7021-8 ####[facility] LABCLIA [id number] [place] [address] [place] Nucleated RBC/100 WBC (Bld) [Ratio] 0.0 /100 WBC Normal [facility] Comment on above: Order Comment: Speci men Type: BLOOD SPECIMENOrdering Facility: [facility] Address: [address] [place] [address] Performed By: #### 5 7021-8 ####[facility] LABIA [id number] [place] [address] [place] Platelet mean volume (Bld) [Entitic vol] 11.5 fL Normal 9.0-12.7 [facility] Comment on above: Order Comment: Speci men Type: BLOOD SPECIMENOrdering Facility: [facility] Address: [address] [place] [address] Performed By: #### 5 7021-8 ####[facility] LABIA [id number] [place] [address] [place] Platelets (Bld) [#/Vol] 145 10*3/uL Low 150-400 [facility] Comment on above: Order Comment: Speci men Type: BLOOD SPECIMENOrdering Facility: [facility] Address: [address] [place] [address] Performed By: #### 5 7021-8 ####[facility] LABIA [id number] [place] [address] [place] RBC (Bld) [#/Vol] 4.22 10*6/uL Normal 4.20-6.00 [facility] Comment on above: Order Comment: Speci men Type: BLOOD SPECIMENOrdering Facility: [facility] Address: [address] [place] [address] Performed By: #### 5 7021-8 ####[facility] LABIA [id number] [place] [address] [place] WBC (Bld) [#/Vol] 6.65 10*3/uL Normal 3.70-11.00 [facility] Comment on above: Order Comment: Speci men Type: BLOOD SPECIMENOrdering Facility: [facility] Address: [address] [place] [address] Performed By: #### 5 7021-8 ####[facility] LABCLIA [id number] KANDISGalilea LANEDESK [id number] [id number] [place] CNOVon 05-07-2024 CNOV Office Visit (FAMPWS) SONIYA COOLEY ([id number]) 1940 M Date Time Provider Department 05/07/24 3:40 PM [facility] During your visit today, we recorded the following information about you: Pulse Respiration Blood pressure Weight 63/minute 16/minute 125/67 90.7 kg Zina Duran APRN.[facility] 05/07/2024 4:00 PM Signed Chief Complaint Patient presents with: Edema: Both legs X 3 days Leg Pain: Thigh pain X 3 days HPI Soniya Ella Cooley is a 83 year [...] XCP H (more content not included)... [facility] Nickolas [facility]-07-2024 [facility]) SONIYA COOLEY ([id number]) 1940 M Date Time Provider Department 05/07/24 [facility] During your visit today, we recorded the following information about you: Sophie Collier 05/07/2024 4:57 PM Signed Pt called to check schedule in [place] for [place]. There are no appointments available here tomorrow. He would like to check at the [facility] if the order could be sent there to check appointment availability tomorrow. He kept the [place] appointment just in case we find that the [facility] can't accommodate tomorrow. Zina Duran APRN.[facility] 05/07/2024 5:04 PM Signed Please check to see if [facility] has availability. If so please fax order. Autumn Mares MA 05/08/2024 9:12 AM Signed Referral placed. Waiting to hear back from pre access if approved RUSLAN Navas Brittany, MA 05/08/2024 9:28 AM Signed Approval received. Pt will call [facility] to schedule Autumn Mares MA Allergies As of Date: 05/07/2024 Noted Allergy Reaction IODINE 10/09/2002 14 - Other: See Comments Comments: ?decreased BP with iodinated contrast during a cardiac cath. Pt reports he was told by the analytic programmer that they almost lost him due to [...] (FLONASE) 50 mcg/actuation nasal spray Use 1 [place] in each nostril once daily. 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 Normal [facility] Comprehensive metabolic 2000 panelon 05-07-2024 Albumin [Mass/Vol] 4.2 g/dL Normal 3.9-4.9 [facility] Comment on above: Order Comment: Speci men Type: BLOOD SPECIMENOrdering Facility: [facility] Address: [address] [place] [address] Performed By: #### 2 777-1, 62769-7, 77824-0 ####[facility] LABCLIA [id number] [place] [address] [place] ALP [Catalytic activity/Vol] 103 U/L Normal 38-113 [facility] Comment on above: Order Comment: Speci men Type: BLOOD SPECIMENOrdering Facility: [facility] Address: [address] [place] [address] Performed By: #### 2 777-1, 34451-4, ####[facility] LABCLIA [id number] [address] [address] [place] ALT [Catalytic activity/Vol] 11 U/L Normal 10-54 [facility] Comment on above: Order Comment: Speci men Type: BLOOD SPECIMENOrdering Facility: [facility] Address: [address] [place] [address] Performed By: #### 2 777-1, 45100-5, ####[facility] LABCLIA [id number] [place] [address] [place] Anion gap [Moles/Vol] 9 mmol/L Normal 8-15 [facility] Comment on above: Order Comment: Speci men Type: BLOOD SPECIMENOrdering Facility: [facility] Address: [address] [place] [address] Performed By: #### 2 777-1, , ####[facility] LABCLIA [id number] [place] [address] [place] AST [Catalytic activity/Vol] 26 U/L Normal 14-40 [facility] Comment on above: Order Comment: Speci men Type: BLOOD SPECIMENOrdering Facility: [facility] Address: [address] [place] [address] Performed By: #### 2 777-1, , ####[facility] LABCLIA [id number] [address] [address] [place] Bilirubin [Mass/Vol] 0.4 mg/dL Normal 0.2-1.3 [facility] Comment on above: Order Comment: Speci men Type: BLOOD SPECIMENOrdering Facility: [facility] Address: [address] [place] [address] Performed By: #### 2 777-1, 31298-6, ####[facility] LABCLIA [id number] [facility] [address] [address] [place] Calcium [Mass/Vol] 9.1 mg/dL Normal 8.5-10.2 [facility] Comment on above: Order Comment: Speci men Type: BLOOD SPECIMENOrdering Facility: [facility] Address: [address] [place] [address] Performed By: #### 2 777-1, , ####[facility]CL[facility] [id number] [facility] [employer] [address] [address] [place] Chloride [Moles/Vol] 107 mmol/L Normal 98-107 [facility] Comment on above: Order Comment: Speci men Type: BLOOD SPECIMENOrdering Facility: [facility] Address: [address] [place] [address] Performed By: #### 2 777-1, , ####[facility] LABCLIA [id number] [place] [address] [place] CO2 [Moles/Vol] 24 mmol/L Normal 22-30 [facility] Comment on above: Order Comment: Speci men Type: BLOOD SPECIMENOrdering Facility: [facility] Address: [address] [place] [address] Performed By: #### 2 777-1, , ####[facility] LABCLIA [id number] [employer] [address] [address] [place] Creatinine [Mass/Vol] 0.72 mg/dL Low 0.73-1.22 [facility] Comment on above: Order Comment: Speci men Type: BLOOD SPECIMENOrdering Facility: [facility] Address: [address] [place], [place] [address] Performed By: #### 2 777-1, 88582-2, ####[facility] LABCLIA [id number] [place] [address] [place] Creatinine and Glomerular filtration rate.predicted panel (S/P/Bld) 91 mL/min/1.73m??? Normal >=60 [facility] Comment on above: Order Comment: Myles gottlieb Type: BLOOD SPECIMENOrdering Facility: [facility] Address: [address] [place] [address] Result Comment: Janae mated Glomerular Filtration Rate [...] actual GFR. Performed By: #### 2 777-1, 26166-9, ####[facility] LABCLIA [id number] [place] [address] [place] Glucose [Mass/Vol] 141 mg/dL High 74-99 [facility] Comment on above: Order Comment: Myles gottlieb Type: BLOOD SPECIMENOrdering Facility: [facility] Address: [address] [place] [address] Result Comment: The [place] [employer] (ADA) provides guidance for cutoff [...] Standards of Medical Care in Diabetes 2016, [place] [employer]. Diabetes Care. 2016.39(Suppl 1). Performed By: #### 2 777-1, 47108-5, 78976-8 ####[facility] LABCLIA [id number] [place] [id number] [place] Potassium [Moles/Vol] 4.1 mmol/L Normal 3.7-5.1 [facility] Comment on above: Order Comment: Speci men Type: BLOOD SPECIMENOrdering Facility: [facility] Address: [address] [place] [address] Performed By: #### 2 777-1, 31303-7, ####[facility] LABCLIA [id number] [place] [address] [place] Protein [Mass/Vol] 6.6 g/dL Normal 6.3-8.0 [facility] Comment on above: Order Comment: Speci men Type: BLOOD SPECIMENOrdering Facility: [facility] Address: [address] [place] [address] Performed By: #### 2 777-1, 35253-4, ####[facility] LABCLIA [id number] [place] [address] [place] Sodium [Moles/Vol] 140 mmol/L Normal 136-144 [facility] Comment on above: Order Comment: Speci men Type: BLOOD SPECIMENOrdering Facility: [facility] Address: [address] [place] [address] Performed By: #### 2 777-1, 25396-6, ####[facility] LABCLIA [id number] [place] [address] [place] Urea nitrogen [Mass/Vol] 20 mg/dL Normal 9-24 [facility] Comment on above: Order Comment: Speci men Type: BLOOD SPECIMENOrdering Facility: [facility] Address: [address] [place] [address] Performed By: #### 2 777-1, 07517-5, ####[facility] LABCLIA [id number] [place] [id number] [place] Magnesium SerPl-mCncon 05-07 Magnesium [Mass/Vol] 2.3 mg/dL Normal 1.7-2.3 [facility] Comment on above: Order Comment: Speci men Type: BLOOD SPECIMENOrdering Facility: [facility] Address: [address] [place] [address] Performed By: #### 2 777-1, 56985-5, 50036-0 ####[facility] LABCLIA [id number] [place] [address] [place] Phosphate SerPl-mCncon 05-07 Phosphate [Mass/Vol] 2.7 mg/dL Normal 2.7-4.8 [facility] Comment on above: Order Comment: Speci men Type: BLOOD SPECIMENOrdering Facility: [facility] Address: [address] [place] [address] Performed By: #### 2 777-1, 98423-3, ####[facility] LABCLIA [id number] [place] [address] [place] .Auto Diffon 02-19-2024 Basophil, Absolute 0.0 10 3/mcL Normal 0.0-0.2 [facility] ([place]) Comment on above: Performed By: #### A BOGEL, ANEU, CBC, GFR, ADIFF, ABSGEL, BMP, ALB #### [address] [address] Basophils/100 WBC (Bld) 0.0 % Normal 0.0-2.5 A [facility] ([place]) Comment on above: Performed By: #### A BOGEL, ANEU, CBC, GFR, ADIFF, ABSGEL, BMP, ALB #### [address] [address] Eosinophil, Absolute 0.0 10 3/mcL Normal 0.0-0.4 [facility] ([place]) Comment on above: Performed By: #### A BOGEL, ANEU, CBC, GFR, ADIFF, ABSGEL, BMP, ALB #### [address] [address] Eosinophils/100 WBC (Bld) 0.0 % Normal 0.0-7.0 [facility] ([place]) Comment on above: Performed By: #### A BOGEL, ANEU, CBC, GFR, ADIFF, ABSGEL, BMP, ALB #### [address] [address] Lymphocyte, Absolute 1.2 10 3/mcL Normal 0.8-3.9 [facility] ([place] Comment on above: Performed By: #### A BOGEL, ANEU, CBC, GFR, ADIFF, ABSGEL, BMP, ALB #### [address] [address] Lymphocytes/100 WBC (Bld) 8.8 % Low 10.0-50.0 [facility] ([place]) Comment on above: Performed By: #### A BOGEL, ANEU, CBC, GFR, ADIFF, ABSGEL, BMP, ALB #### [address] [address] Monocyte, Absolute 0.6 10 3/mcL Normal 0.2-1.0 [facility] ([place] Comment on above: Performed By: #### A BOGEL, ANEU, CBC, GFR, ADIFF, ABSGEL, BMP, ALB #### [address] [address] Monocytes/100 WBC (Bld) 4.7 % Normal 1.7-13.0 A [facility] ([place] Comment on above: Performed By: #### A BOGEL, ANEU, CBC, GFR, ADIFF, ABSGEL, BMP, ALB #### [address] [address] Neutrophils/100 WBC (Bld) 86.5 % High 37.0-80.0 [facility] ([place] Comment on above: Performed By: #### A BOGEL, ANEU, CBC, GFR, ADIFF, ABSGEL, BMP, ALB #### [address] [address] .GFRon 02-19-2024 GFR 95 ml/min/1.73sqm Normal [facility] ([place]) Comment on above: Result Comment: GFR [...] CBC, GFR, ADIFF, ABSGEL, BMP, ALB #### [address] [address] GFR Non- 79 ml/min/1.73sqm Normal [facility] ([place]) Comment on above: Result Comment: GFR [...] GFR, ADIFF, ABSGEL, BMP, ALB #### Gadiel [address] [address] .NEUABSon 02-19-2024 Neutrophil, Absolute 11.7 10 3/mcL High 2.9-6.2 A [facility] ([place] Comment on above: Performed By: #### A BOGEL, ANEU, CBC, GFR, ADIFF, ABSGEL, BMP, ALB #### [address] [address] BMPon 02-19-2024 BUN/Creatinine Ratio 25 ratio Normal 7-27 [facility] ([place] Comment on above: Performed By: #### A BOGEL, ANEU, CBC, GFR, ADIFF, ABSGEL, BMP, ALB #### [address] [address] Calcium [Mass/Vol] 8.9 mg/dL Normal 8.4-10.2 [facility] ([place]) Comment on above: Performed By: #### A BOGEL, ANEU, CBC, GFR, ADIFF, ABSGEL, BMP, ALB #### [address] [address] Chloride [Moles/Vol] 105 mmol/L Normal 98-107 [facility] ([place] Comment on above: Performed By: #### A BOGEL, ANEU, CBC, GFR, ADIFF, ABSGEL, BMP, ALB #### [address] [address] CO2 [Moles/Vol] 26 mmol/L Normal 23-31 [facility] ([place] Comment on above: Performed By: #### A BOGEL, ANEU, CBC, GFR, ADIFF, ABSGEL, BMP, ALB #### [address] [address] Creatinine [Mass/Vol] 0.92 mg/dL Normal 0.70-1.30 [facility] ([place]) Comment on above: Performed By: #### A BOGEL, ANEU, CBC, GFR, ADIFF, ABSGEL, BMP, ALB #### [address] [address] Electrolyte Balance 8.0 mEq/L Normal 4.0-15.0 [facility] ([place]) Comment on above: Performed By: #### A BOGEL, ANEU, CBC, GFR, ADIFF, ABSGEL, BMP, ALB #### [address] [address] Glucose [Mass/Vol] 131 mg/dL High 83-110 [facility] ([place]) Comment on above: Performed By: #### A BOGEL, ANEU, CBC, GFR, ADIFF, ABSGEL, BMP, ALB #### [address] [address] Potassium [Moles/Vol] 4.2 mmol/L Normal 3.5-5.1 [facility] ([place] Comment on above: Performed By: #### A BOGEL, ANEU, CBC, GFR, ADIFF, ABSGEL, BMP, ALB #### [place] [address] Sodium [Moles/Vol] 139 mmol/L Normal 136-145 [facility] ([place] Comment on above: Performed By: #### A BOGEL, ANEU, CBC, GFR, ADIFF, ABSGEL, BMP, ALB #### [place] [address] Urea nitrogen [Mass/Vol] 23 mg/dL High 7-18 [facility] ([place] Comment on above: Performed By: #### A BOGEL, ANEU, CBC, GFR, ADIFF, ABSGEL, BMP, ALB #### [place] [address] CBCon 02-19-2024 Erythrocyte distribution width (RBC) [Ratio] 13.7 % Normal 11.5-14.5 [facility] ([place]) Comment on above: Performed By: #### G FR, ADIFF, CBC, ANEU, BMP #### [place] [address] Hematocrit (Bld) [Volume fraction] 37.1 % Low 42.0-52.0 [facility] ([place] Comment on above: Performed By: #### G FR, ADIFF, CBC, ANEU, BMP #### [place] [address] Hgb 12.7 G/dL Low 14.0-18.0 [facility] ([place] Comment on above: Performed By: #### G FR, ADIFF, CBC, ANEU, BMP #### [place] [address] MCH (RBC) [Entitic mass] 33.1 pg High 27.0-31.2 [facility] ([place] Comment on above: Performed By: #### G FR, ADIFF, CBC, ANEU, BMP #### [address] [address] MCHC 34.2 G/dL Normal 31.8-35.4 [facility] ([place] Comment on above: Performed By: #### G FR, ADIFF, CBC, ANEU, BMP #### [address] [address] MCV (RBC) [Entitic vol] 96.7 fL High 80.0-94.0 A [facility] ([place] Comment on above: Performed By: #### G FR, ADIFF, CBC, ANEU, BMP #### [address] [address] Platelet 135 10 3/mcL Normal 130-400 [facility] ([place]) Comment on above: Performed By: #### G FR, ADIFF, CBC, ANEU, BMP #### [place] [address] Platelet mean volume (Bld) [Entitic vol] 9.4 fL Normal 7.4-10.4 [facility] ([place] Comment on above: Performed By: #### G FR, ADIFF, CBC, ANEU, BMP #### [place] [id number] RBC 3.84 10 6/mcL Low 4.04-6.13 [facility] ([place] Comment on above: Performed By: #### G FR, ADIFF, CBC, ANEU, BMP #### [place] [id number] WBC 13.6 10 3/mcL High 4.6-10.8 [facility] ([place] Comment on above: Performed By: #### G FR, ADIFF, CBC, ANEU, BMP #### [place] [id number] LABORATORYOrdered By: SYSTEM SYSTEM on 02-19-2024 Basophil, [...] Interp Positive Invalid Interpretation Code [facility] ([place] Comment on above: Performed By: #### A ARA ANEU, CBC, GFR, ADIFF, ABSGEL, BMP, ALB #### [address] [address] ABS (Gel)on 02-18-2024 ABSC Interp (Gel) Negative Normal [facility] ([place] Comment on above: Performed By: #### A JAMIEEL, ANEU, CBC, GFR, ADIFF, ABSGEL, BMP, ALB #### [address] [address] LABORATORYOrdered By: Pee Leavitt on 02-18-2024 ABO [...] Interpreted by: Nae Rahman Preliminary Report By: Nea Rahman Electronically signed By Nae Rahman Dictated Date: 02/18/2024 3:47:42 PM Prelim Date: 02/18/2024 3:48:22 PM Sign Date: 02/18/2024 3:48:22 PM Ordering Provider: DEAN CALDWELL Normal [facility] ([place]) XR Chest PA and Lateralon IMPRESSION: Overall unremarkable exam with no acute radiographic abnormality. Finance Business Partner: GEOFFREY Transcribe Date/Time: Feb 02 2024 10:25A Dictated by : MAGO RAINEY MD This examination was interpreted and the report reviewed and electronically signed by: MAGO RAINEY MD on Feb 02 2024 10:26AM [facility] DIVISION OF RADIOLOGY * * *Final [...] soft tissues: Unremarkable. DIVISION OF RADIOLOGY Provider, [facility] [place] - 02/02/2024 * * *Final Report* * [...] unremarkable exam with no acute radiographic abnormality. Finance Business Partner: GEOFFREY Transcribe Date/Time: Feb 02 2024 10:25A Dictated by : MAGO RAINEY MD This examination was interpreted and the report reviewed and electronically signed by: MAGO RAINEY MD on Feb 02 2024 10:26AM EST [facility] XR Chest PA and LateralOrder ed By: Ccf Provider on 02-02-2024 [facility] XR Chest PA and Lateralon Radiology Study observation (narrative) [facility] .Auto Diffon 01-27-2024 Basophil, Absolute 0.0 10 3/mcL Normal 0.0-0.2 [facility] ([place]) Comment on above: Performed By: #### A BOGEL, ANEU, CBC, GFR, ADIFF, ABSGEL, BMP, ALB #### [address] [address] Basophils/100 WBC (Bld) 0.4 % Normal 0.0-2.5 A [facility] ([place] Comment on above: Performed By: #### A BOGEL, ANEU, CBC, GFR, ADIFF, ABSGEL, BMP, ALB #### [address] [address] Eosinophil, Absolute 0.4 10 3/mcL Normal 0.0-0.4 [facility] ([place] Comment on above: Performed By: #### A BOGEL, ANEU, CBC, GFR, ADIFF, ABSGEL, BMP, ALB #### [address] [address] Eosinophils/100 WBC (Bld) 5.5 % Normal 0.0-7.0 [facility] ([place] Comment on above: Performed By: #### A BOGEL, ANEU, CBC, GFR, ADIFF, ABSGEL, BMP, ALB #### [address] [address] Lymphocyte, Absolute 2.7 10 3/mcL Normal 0.8-3.9 [facility] ([place] Comment on above: Performed By: #### A BOGEL, ANEU, CBC, GFR, ADIFF, ABSGEL, BMP, ALB #### [address] [address] Lymphocytes/100 WBC (Bld) 40.8 % Normal 10.0-50.0 [facility] ([place] Comment on above: Performed By: #### A BOGEL, ANEU, CBC, GFR, ADIFF, ABSGEL, BMP, ALB #### [address] [address] Monocyte, Absolute 0.7 10 3/mcL Normal 0.2-1.0 [facility] ([place] Comment on above: Performed By: #### A BOGEL, ANEU, CBC, GFR, ADIFF, ABSGEL, BMP, ALB #### [address] [address] Monocytes/100 WBC (Bld) 10.3 % Normal 1.7-13.0 [facility] ([place]) Comment on above: Performed By: #### A BOGEL, ANEU, CBC, GFR, ADIFF, ABSGEL, BMP, ALB #### [address] [address] Neutrophils/100 WBC (Bld) 43.0 % Normal 37.0-80.0 [facility] ([place] Comment on above: Performed By: #### A BOGEL, ANEU, CBC, GFR, ADIFF, ABSGEL, BMP, ALB #### [address] [address] .GFRon 01-27-2024 GFR 121 ml/min/1.73sqm Normal [facility] ([place]) Comment on above: Result Comment: GFR [...] CBC, GFR, ADIFF, ABSGEL, BMP, ALB #### [address] [address] GFR Non- 100 ml/min/1.73sqm Normal [facility] ([place] Comment on above: Result Comment: GFR [...] CBC, GFR, ADIFF, ABSGEL, BMP, ALB #### [address] [address] .NEUABSon 01-27-2024 Neutrophil, Absolute 2.9 10 3/mcL Normal 2.9-6.2 [facility] ([place] Comment on above: Performed By: #### A BOGEL, ANEU, CBC, GFR, ADIFF, ABSGEL, BMP, ALB #### [address] [address] ABO/Rh (Gel)on 01-27-2024 ABO/Rh Interp Positive Invalid Interpretation Code [facility] ([place] Comment on above: Order Comment: SURG PEPITO 02/17 -AC Performed By: #### A BOGEL, ANEU, CBC, GFR, ADIFF, ABSGEL, BMP, ALB #### [address] [address] ABS (Gel)on 01-27-2024 ABSC Interp (Gel) Negative Normal [facility] ([place] Comment on above: Order Comment: SURG PEPITO 02/17 -AC Performed By: #### A BOGEL, ANEU, CBC, GFR, ADIFF, ABSGEL, BMP, ALB #### [address] [address] ALBon 01-27-2024 Albumin Level 3.9 G/dL Normal 3.4-4.8 [facility] ([place] Comment on above: Performed By: #### A JAMIEEL, ANEU, CBC, GFR, ADIFF, ABSGEL, BMP, ALB #### [address] [address] BMPon 01-27-2024 BUN/Creatinine Ratio 28 ratio High 7-27 [facility] ([place] Comment on above: Performed By: #### A BOGEL, ANEU, CBC, GFR, ADIFF, ABSGEL, BMP, ALB #### [address] [address] Calcium [Mass/Vol] 8.8 mg/dL Normal 8.4-10.2 [facility] ([place] Comment on above: Performed By: #### A JAMIEEL, ANEU, CBC, GFR, ADIFF, ABSGEL, BMP, ALB #### [address] [address] Chloride [Moles/Vol] 104 mmol/L Normal 98-107 [facility] ([place] Comment on above: Performed By: #### A BOGEL, ANEU, CBC, GFR, ADIFF, ABSGEL, BMP, ALB #### [address] [address] CO2 [Moles/Vol] 30 mmol/L Normal 23-31 [facility] ([place] Comment on above: Performed By: #### A BOGEL, ANEU, CBC, GFR, ADIFF, ABSGEL, BMP, ALB #### [address] [address] Creatinine [Mass/Vol] 0.75 mg/dL Normal 0.70-1.30 [facility] ([place] Comment on above: Performed By: #### A ARA ANEU, CBC, GFR, ADIFF, ABSGEL, BMP, ALB #### [address] [address] Electrolyte Balance 7.0 mEq/L Normal 4.0-15.0 [facility] ([place]) Comment on above: Performed By: #### A ARA, ANEU, CBC, GFR, ADIFF, ABSGEL, BMP, ALB #### [address] [address] Glucose [Mass/Vol] 113 mg/dL High 83-110 [facility] ([place] Comment on above: Performed By: #### A ARA ANEU, CBC, GFR, ADIFF, ABSGEL, BMP, ALB #### [address] [address] Potassium [Moles/Vol] 4.4 mmol/L Normal 3.5-5.1 [facility] ([place] Comment on above: Performed By: #### A ARA ANEU, CBC, GFR, ADIFF, ABSGEL, BMP, ALB #### [address] [address] Sodium [Moles/Vol] 141 mmol/L Normal 136-145 [facility] ([place] Comment on above: Performed By: #### A ARA ANEU, CBC, GFR, ADIFF, ABSGEL, BMP, ALB #### [address] [address] Urea nitrogen [Mass/Vol] 21 mg/dL High 7-18 [facility] ([place]) Comment on above: Performed By: #### A ARA ANEU, CBC, GFR, ADIFF, ABSGEL, BMP, ALB #### [address] [address] CBCon 01-27-2024 Erythrocyte distribution width (RBC) [Ratio] 13.8 % Normal 11.5-14.5 [facility] ([place] Comment on above: Order Comment: Pre-A dmission Testing Performed By: #### A BOGEL, ANEU, CBC, GFR, ADIFF, ABSGEL, BMP, ALB #### [address] [address] Hematocrit (Bld) [Volume fraction] 43.2 % Normal 42.0-52.0 [facility] ([place] Comment on above: Order Comment: Pre-A dmission Testing Performed By: #### A BOGEL, ANEU, CBC, GFR, ADIFF, ABSGEL, BMP, ALB #### [address] [address] Hgb 15.2 G/dL Normal 14.0-18.0 [facility] ([place] Comment on above: Order Comment: Pre-A dmission Testing Performed By: #### A BOGEL, ANEU, CBC, GFR, ADIFF, ABSGEL, BMP, ALB #### [address] [address] MCH (RBC) [Entitic mass] 33.8 pg High 27.0-31.2 [facility] ([place] Comment on above: Order Comment: Pre-A dmission Testing Performed By: #### A BOGEL, ANEU, CBC, GFR, ADIFF, ABSGEL, BMP, ALB #### [address] [address] MCHC 35.1 G/dL Normal 31.8-35.4 [facility] ([place] Comment on above: Order Comment: Pre-A dmission Testing Performed By: #### A BOGEL, ANEU, CBC, GFR, ADIFF, ABSGEL, BMP, ALB #### [address] [address] MCV (RBC) [Entitic vol] 96.3 fL High 80.0-94.0 A [facility] ([place] Comment on above: Order Comment: Pre-A dmission Testing Performed By: #### A BOGEL, ANEU, CBC, GFR, ADIFF, ABSGEL, BMP, ALB #### [address] [address] Platelet 147 10 3/mcL Normal 130-400 [facility] ([place] Comment on above: Order Comment: Pre-A dmission Testing Performed By: #### A BOGEL, ANEU, CBC, GFR, ADIFF, ABSGEL, BMP, ALB #### [address] [address] Platelet mean volume (Bld) [Entitic vol] 10.2 fL Normal 7.4-10.4 [facility] ([place] Comment on above: Order Comment: Pre-A dmission Testing Performed By: #### A BOGEL, ANEU, CBC, GFR, ADIFF, ABSGEL, BMP, ALB #### [address] [address] RBC 4.49 10 6/mcL Normal 4.04-6.13 [facility] ([place] Comment on above: Order Comment: Pre-A dmission Testing Performed By: #### A BOGEL, ANEU, CBC, GFR, ADIFF, ABSGEL, BMP, ALB #### [address] [address] WBC 6.7 10 3/mcL Normal 4.6-10.8 [facility] ([place] Comment on above: Order Comment: Pre-A dmission Testing Performed By: #### A BOGEL, ANEU, CBC, GFR, ADIFF, ABSGEL, BMP, ALB #### [address] [address] [address] KNEE W/O CONTRAST LEFTon 01-27-2024 CT [...] PM Ordering Provider: DEAN Rivas [facility] ([place]) LABORATORYOrdered By: Reg Heck on 01-27-2024 [...] Comment on above: Result Comment: Note s [id number] MRSA PCR Int MRSA DNA not detected [...] Not detected Normal Not Detected [facility] ([place]) Comment on above: Result Comment: [place] [id number] Performed By: #### A ARA, ANEU, CBC, GFR, ADIFF, ABSGEL, BMP, ALB #### [address] [address] MRSA PCR Int Normal [facility] ([place] Comment on above: Result Comment: MRSA [...] CBC, GFR, ADIFF, ABSGEL, BMP, ALB #### [place] [id number] [place], [place] [address] XR Chest PA and Lateralon IMPRESSION: Questionable vague hazy opacity in the left midlung. Consider short-term follow-up. Finance Business Partner: GEOFFREY Transcribe Date/Time: Dec 14 2023 1:30P Dictated by : JAGUAR GONZALES MD This examination was interpreted and the report reviewed and electronically signed by: JAGUAR GONZALES MD on Dec 14 2023 1:32PM [facility] DIVISION OF RADIOLOGY * * *Final [...] from median sternotomy. DIVISION OF RADIOLOGY Provider, [facility] [place] - 12/14/2023 * * *Final Report* * [...] in the left midlung. Consider short-term follow-up. Finance Business Partner: PSCB Transcribe Date/Time: Dec 14 2023 1:30P Dictated by : JAGUAR GONZALES MD This examination was interpreted and the report reviewed and electronically signed by: JAGUAR GONZALES MD on Dec 14 2023 1:32PM EST [facility] Radiology [facility]narrative) [facility] PA and LateralOrder ed By: Cc Provider on 12-14-2023 [facility] TSH BLDon 06-23-2022 TSH Qn 1.610 m[IU]/L 0.270 - 4.200 mIU/L [facility] HbA1c (Bld)on 06-22-2022 Average glucose Estimated from glycated hemoglobin (Bld) [Mass/Vol] 117 mg/dL [facility] HbA1c (Bld) [Mass fraction] 5.7 % High 4.3 - 5.6 % [facility] CNPGay 12-16-2020 CNPN Telephone (DashThis) LENORASONIYA Ella ([id number]) 1940 M Date Time Provider Department 12/16/20 ABBY PATE During your visit today, we recorded the following information about you: Michelle Blackmon Ma 12/16/2020 4:00 PM Signed Physical Therapy order faxed to Amy at [facility] PT at [phone]. Michelle Blackmon LOGISTICS TEAM LEADER (AAMA) Allergies As of Date: 12/16/2020 Noted Allergy Reaction IODINE 10/09/2002 14 - Other: See Comments Comments: ?decreased BP with iodinated contrast during a cardiac cath. Pt reports he was told by the analytic programmer that they almost lost him due to [...] * FLUTICASONE PROPIONATE 50 MCG* Use 1 [place] in each nostril o* CHOLECALCIFEROL (VITAMIN D3) [...] Status:Closed by MICHELLE BLACKMON MA on 12/16/20 [facility] CNOVon 10-06-2020 CNOV Office Visit (CODY) SONIYA COOLEY ([id number]) 1940 M Date Time Provider Department 10/06/20 11:00 AM ABBY PATE During your visit today, we recorded the following information about you: Pulse Blood pressure Weight Height 52/minute 142/90 87.6 kg 1.702 m Abby Pate MD 10/20/2020 9:53 PM Signed FOLLOW UP NOTE Subjective Soniya L Lenora is a 79 year old male who [...] (FLONASE) 50 mcg/actuation nasal spray Use 1 [place] in each nostril once daily. Rinse mouth [...] Mildly decreased (more content not included)... Normal [facility] CNOVon 06-03-2020 CNOV Office Visit (NEAGAK) SONIYA COOLEY ([id number]) 1940 M Date Time Provider Department 06/03/20 [...] (FLONASE) 50 mcg/actuation nasal spray Use 1 [place] in each nostril once daily. Rinse mouth [...] Last Medication (more content not included)... Normal [facility] INR, POCT Whole Bloodon 08-07 INR Coag RelTime (Bld) 1.40 {INR} High 0.90-1.10 [facility] Comment on above: Result Comment: Brayan dard Therapy 2.0-3.0 High Dose 2.5-3.5 Performed By: #### P INR #### [facility] [address] [place], [place] [address] Vital Signs Date Time Vital Sign Value Performing Clinician Facility 04-10-2025 07:30-0400 Body temperature 98.4 [degF] Dr. Oniel Francis MD Work Phone: [facility] 04-10-2025 07:30-0400 Diastolic blood pressure 69 mm[Hg] Dr. Oniel Francis MD Work Phone: [facility] 04-10-2025 07:30-0400 Heart rate 66 /min Dr. Oniel Francis MD Work Phone: [facility] 04-10-2025 07:30-0400 Respiratory rate 18 /min Dr. Oniel Francis MD Work Phone: [facility] 04-10-2025 07:30-0400 SaO2% (BldA) [Mass fraction] 93 % Dr. Oniel Francis MD Work Phone: [facility] 04-10-2025 07:30-0400 Systolic blood pressure 153 mm[Hg] Dr. Oniel Francis MD Work Phone: [facility] 04-10-2025 06:05-0400 Body height 170.[address] Oniel Francis MD Work Phone: 3(066)163-195440 [place] [address] 04-10-2025 06:05-0400 Body mass index (BMI) [Ratio] 30.4 kg/m2 Dr. Oniel Francis MD Work Phone: 4(356)831-698540 [place] [address] 04-10-2025 06:05-0400 Body weight 88.[address] Oniel Francis MD Work Phone: 8(300)821-651740 [place] [address] 04-08-2025 13:42-0400 Body temperature 97.6 [degF] Dr. Oniel Francis MD Work Phone: 3(106)578-455840 [place] [address] 04-08-2025 13:42-0400 Diastolic blood pressure 62 mm[Hg] Dr. Oniel Francis MD Work Phone: 6(693)409-802740 [place] [address] 04-08-2025 13:42-0400 Heart rate 66 /min Dr. Oniel Francis MD Work Phone: 1(783)621-289540 [place] [address] 04-08-2025 13:42-0400 Respiratory rate 16 /min Dr. Oniel Francis MD Work Phone: 6(932)831-173940 [place] [address] 04-08-2025 13:42-0400 SaO2% (BldA) [Mass fraction] 94 % Dr. Oniel Francis MD Work Phone: 8(521)929-016640 [place] [address] 04-08-2025 13:42-0400 Systolic blood pressure 114 mm[Hg] Dr. Oniel Francis MD Work Phone: 6(596)228-505640 [place] [address] 04-08-2025 07:05-0400 Inhaled oxygen flow rate 2 L/min Dr. Oniel Francis MD Work Phone: 2(937)440-337440 [place] [address] 04-07-2025 15:42-0400 Body height 170.[address] Oniel Francis MD Work Phone: 3(363)464-452840 [place] [address] 04-07-2025 15:42-0400 Body mass index (BMI) [Ratio] 29.3 kg/m2 Dr. Oniel Francis MD Work Phone: 3(614)772-208040 [place] [address] 04-07-2025 15:42-0400 Body weight [address] Oniel Francis MD Work Phone: [facility] 02-26-2025 08:26-0400 Body mass index (BMI) [Ratio] 32.37 kg/m2 Leti Clutter PA-C Work Phone: [facility] 02-26-2025 08:26-0400 Body temperature 97.7 [degF] Leti Clutter PA-C Work Phone: [facility] 02-26-2025 08:26-0400 Body weight 89.6 kg Leti Clutter PA-C Work Phone: [facility] 02-26-2025 08:26-0400 Diastolic blood pressure 70 mm[Hg] Leti Clutter PA-C Work Phone: [facility] 02-26-2025 08:26-0400 Heart rate 61 /min Leti Clutter PA-C Work Phone: [facility] 02-26-2025 08:26-0400 Respiratory rate 20 /min Leti Clutter PA-C Work Phone: [facility] 02-26-2025 08:26-0400 SaO2% (BldA) [Mass fraction] 95 % Leti Clutter PA-C Work Phone: [facility] 02-26-2025 08:26-0400 Systolic blood pressure 98 mm[Hg] Leti Clutter PA-C Work Phone: [facility] 02-08-2025 [id number] Body height 166.4 cm Oniel Francis MD Work Phone: [facility] 02-08-2025 08:07-0400 Body mass index (BMI) [Ratio] 32.81 kg/m2 Oniel Francis MD Work Phone: [facility] 02-08-2025 [id number] Body weight 90.81 kg Oniel Francis MD Work Phone: [facility] 02-08-2025 08:07-0400 Diastolic blood pressure 64 mm[Hg] Oniel Francis MD Work Phone: [facility] 02-08-2025 08:07-0400 Heart rate 60 /min Oniel Francis MD Work Phone: [facility] 02-08-2025 08:07-0400 Respiratory rate 18 /min Oniel Francis MD Work Phone: [facility] 02-08-2025 08:07-0400 Systolic blood pressure 92 mm[Hg] Oniel Francis MD Work Phone: [facility] 01-19-2025 17:16-0400 Body temperature 97.7 [degF] Dr. Oniel Francis MD Work Phone: [facility] 01-19-2025 17:16-0400 Diastolic blood pressure 79 mm[Hg] Dr. Oniel Francis MD Work Phone: 7(661)893-071447 [place] [address] 01-19-2025 17:16-0400 Heart rate 61 /min Dr. Oniel Francis MD Work Phone: [facility] 01-19-2025 17:16-0400 Respiratory rate 17 /min Dr. Oniel Francis MD Work Phone: [facility] 01-19-2025 17:16-0400 SaO2% (BldA) [Mass fraction] 90 % Dr. Oniel Francis MD Work Phone: [facility] 01-19-2025 17:16-0400 Systolic blood pressure 132 mm[Hg] Dr. Oniel Francis MD Work Phone: [facility] 01-19-2025 17:00-0400 Body mass index (BMI) [Ratio] 32 kg/m2 Dr. Oniel Francis MD Work Phone: [facility] 01-19-2025 16:08-0400 Body height 170.[address] Oniel Francis MD Work Phone: 5(261)718-258347 [place] [address] 01-19-2025 16:08-0400 Body weight 92.[address] Oniel Francis MD Work Phone: 3(028)485-607540 [place] [address] 01-19-2025 12:51-0400 Inhaled oxygen flow rate 3 L/min Dr. Oniel Francis MD Work Phone: 1(834)182-860940 [place] [address] 01-19-2025 06:45-0400 Inhaled oxygen flow rate 1 L/min Dr. Oniel Francis MD Work Phone: 8(834)885-414140 [place] [address] 01-19-2025 06:45-0400 SaO2% (BldA) [Mass fraction] 94 % Dr. Oniel Francis MD Work Phone: 7(784)747-390540 [place] [address] 01-19-2025 06:30-0400 Diastolic blood pressure 98 mm[Hg] Dr. Oniel Francis MD Work Phone: 2(597)607-770340 [place] [address] 01-19-2025 06:30-0400 Heart rate 60 /min Dr. Oniel Francis MD Work Phone: 4(177)994-933440 [place] [address] 01-19-2025 06:30-0400 Respiratory rate 18 /min Dr. Oniel Francis MD Work Phone: 4(244)336-749640 [place] [address] 01-19-2025 06:30-0400 Systolic blood pressure 127 mm[Hg] Dr. Oniel Francis MD Work Phone: 3(512)956-867540 [place] [address] 01-19-2025 06:22-0400 Body temperature 98.2 [degF] Dr. Oniel Francis MD Work Phone: 8(242)942-852440 [place] [address] 01-19-2025 03:57-0400 Body height 170.[address] Oniel Francis MD Work Phone: 1(341)929-603540 [place] [address] 01-19-2025 03:57-0400 Body mass index (BMI) [Ratio] 33.4 kg/m2 Dr. Oniel Francis MD Work Phone: 1(866)105-612540 [place] [address] 01-19-2025 03:57-0400 Body weight 96.[address] Oniel Francis MD Work Phone: 4(013)580-479840 [place] [address] 01-18-2025 15:22-0400 Body height 170.[address] Oniel Francis MD Work Phone: [facility] 09-11-2024 14:46-0500 Body height 170.2 cm Abby Pate MD Work Phone: [facility] 09-11-2024 14:46-0500 Body mass index (BMI) [Ratio] 32.49 kg/m2 Abby Pate MD Work Phone: [facility] 09-11-2024 14:46-0500 Body weight 94.1 kg Abby Pate MD Work Phone: [facility] 09-11-2024 14:46-0500 Diastolic blood pressure 88 mm[Hg] Abby Pate MD Work Phone: [facility] 09-11-2024 14:46-0500 Heart rate 68 /min Abby Pate MD Work Phone: [facility] 09-11-2024 14:46-0500 SaO2% (BldA) [Mass fraction] 93 % Abby Pate MD Work Phone: [facility] 09-11-2024 14:46-0500 Systolic blood pressure 150 mm[Hg] Abby Pate MD Work Phone: [facility] 08-31-2024 15:43-0500 Body height 170.2 cm Marj Mackey MD Work Phone: [facility] 08-31-2024 15:43-0500 Body mass index (BMI) [Ratio] 31.48 kg/m2 Marj Mackey MD Work Phone: [facility] 08-31-2024 15:43-0500 Body weight 91.17 kg Marj Mackey MD Work Phone: [facility] 08-31-2024 15:43-0500 Diastolic blood pressure 56 mm[Hg] Marj Mackey MD Work Phone: [facility] 08-31-2024 15:43-0500 Heart rate 74 /min Marj Mackey MD Work Phone: [facility] 08-31-2024 15:43-0500 Respiratory rate 14 /min Marj Mackey MD Work Phone: [facility] 08-31-2024 15:43-0500 SaO2% (BldA) [Mass fraction] 95 % Marj Mackey MD Work Phone: [facility] 08-31-2024 15:43-0500 Systolic blood pressure 98 mm[Hg] Marj Mackey MD Work Phone: [facility] 05-07-2024 15:30-0400 Body mass index (BMI) [Ratio] 31.32 kg/m2 Zina Duran CREDIT UNION MANAGER.CRYPTOGRAPHIC CLERK Work Phone: [facility] 05-07-2024 15:30-0400 Body weight 90.72 kg Zina Duran CREDIT UNION MANAGER.CRYPTOGRAPHIC CLERK Work Phone: [facility] 05-07-2024 15:30-0400 Diastolic blood pressure 67 mm[Hg] Zina Duran CREDIT UNION MANAGER.CRYPTOGRAPHIC CLERK Work Phone: [facility] 05-07-2024 15:30-0400 Heart rate 63 /min Zina Duran CREDIT UNION MANAGER.CRYPTOGRAPHIC CLERK Work Phone: [facility] 05-07-2024 15:30-0400 Respiratory rate 16 /min Zina Duran CREDIT UNION MANAGER.CRYPTOGRAPHIC CLERK Work Phone: [facility] 05-07-2024 15:30-0400 Systolic blood pressure 125 mm[Hg] Zina Duran CREDIT UNION MANAGER.CRYPTOGRAPHIC CLERK Work Phone: [facility] 04-07-2024 10:57-0400 Diastolic blood pressure 70 mm[Hg] Ella Valdovinos PA-C Work Phone: [facility] 04-07-2024 10:57-0400 Systolic blood pressure 104 mm[Hg] Ella Valdovinos PA-C Work Phone: [facility] 04-07-2024 10:44-0400 Body mass index (BMI) [Ratio] 30.7 kg/m2 Ella Valdovinos PA-C Work Phone: [facility] 04-07-2024 10:44-0400 Body temperature 97.9 [degF] Ella Valdovinos PA-C Work Phone: [facility] 04-07-2024 10:44-0400 Body weight 88.91 kg Ella Valdovinos PA-C Work Phone: [facility] 04-07-2024 10:44-0400 Heart rate 75 /min Ella Valdovinos PA-C Work Phone: [facility] 04-07-2024 10:44-0400 Respiratory rate 18 /min Ella Valdovinos PA-C Work Phone: [facility] 04-07-2024 10:44-0400 SaO2% (BldA) [Mass fraction] 94 % Ella Valdovinos PA-C Work Phone: [facility] 03-11-2024 13:04-0400 Body height 170.2 cm Abby Pate MD Work Phone: [facility] 03-11-2024 13:04-0400 Body mass index (BMI) [Ratio] 29.57 kg/m2 Abby Pate MD Work Phone: [facility] 03-11-2024 13:04-0400 Body weight 85.65 kg Abby Pate MD Work Phone: [facility] 03-11-2024 13:04-0400 Diastolic blood pressure 74 mm[Hg] Abby Pate MD Work Phone: [facility] 03-11-2024 13:04-0400 Heart rate 66 /min Abby Pate MD Work Phone: [facility] 03-11-2024 13:04-0400 Systolic blood pressure 113 mm[Hg] Abby Pate MD Work Phone: [facility] 02-19-2024 15:10-0400 Body temperature 97.7 [degF] DR DEAN CALDWELL MD [facility] 02-19-2024 15:10-0400 Diastolic Blood Pressure Non-Invasive 71 mm[Hg] DR DEAN CALDWELL MD [facility] 02-19-2024 15:10-0400 Heart rate 68 /min DR DEAN CALDWELL MD [facility] 02-19-2024 15:10-0400 Respiratory rate 18 /min DR DEAN CALDWELL MD [facility] 02-19-2024 15:10-0400 Systolic Blood Pressure Non-Invasive 122 mm[Hg] DR DEAN CALDWELL MD [facility] 02-19-2024 13:16-0400 Respiratory rate 18 /min DR DEAN CALDWELL MD [facility] 02-19-2024 11:33-0400 Body temperature 97.52 [degF] DR DEAN CALDWELL MD [facility] 02-19-2024 11:33-0400 Diastolic Blood Pressure Non-Invasive 65 mm[Hg] DR DEAN CALDWELL MD [facility] 02-19-2024 11:33-0400 Heart rate 68 /min DR DEAN CALDWELL MD [facility] 02-19-2024 11:33-0400 Respiratory rate 18 /min DR DEAN CALDWELL MD [facility] 02-19-2024 11:33-0400 Systolic Blood Pressure Non-Invasive 126 mm[Hg] DR DENA CALDWELL MD [facility] 02-19-2024 08:15-0400 Heart rate 84 /min DR DEAN CALDWELL MD [facility] 02-19-2024 06:27-0400 Body temperature 97.34 [degF] DR DEAN CALDWELL MD [facility] 02-19-2024 06:27-0400 Diastolic Blood Pressure Non-Invasive 58 mm[Hg] DR DEAN CALDWELL MD [facility] 02-19-2024 06:27-0400 Heart rate 67 /min DR DEAN CALDWELL MD [facility] 02-19-2024 06:27-0400 Systolic Blood Pressure Non-Invasive 103 mm[Hg] DR DEAN CALDWELL MD [facility] 02-18-2024 20:42-0400 Heart rate 82 /min DR DEAN CALDWELL MD [facility] 02-18-2024 17:02-0400 Body height 170.[address] DEAN CALDWELL MD [facility] 02-18-2024 17:02-04[address] Body weight [address] DEAN CALDWELL MD [facility] 02-18-2024 17:02-0400 Body weight 30.38 kg/m2 DR DEAN CALDWELL MD [facility] 02-18-2024 15:17-0400 Body temperature 97.52 [degF] DR DEAN CALDWELL MD [facility] 02-18-2024 15:10-0400 Respiratory Rate - Anes 0 br/min DR DEAN CALDWELL MD [facility] 02-18-2024 15:05-0400 Respiratory Rate - Anes 0 br/min DR DEAN CALDWELL MD [facility] 02-18-2024 15:00-0400 Respiratory Rate - Anes 15 br/min DR DEAN CALDWELL MD [facility] 02-18-2024 11:01-0400 Body height 170.[address] DEAN CALDWELL MD [facility] 02-18-2024 11:01-0400 Body temperature 97.88 [degF] DR DEAN CALDWELL MD [facility] 02-18-2024 11:01-0400 Body weight [address] DEAN CALDWELL MD [facility] 02-18-2024 11:01-0400 Heart rate 60 /min DR DEAN CALDWELL MD [facility] 02-10-2024 09:39-0400 Body height 170.2 cm Ella Valdovinos PA-C Work Phone: [facility] 02-10-2024 09:39-0400 Body mass index (BMI) [Ratio] 31.01 kg/m2 Ella Valdovinos PA-C Work Phone: [facility] 02-10-2024 09:39-0400 Body weight 89.81 kg Ella Valdovinos PA-C Work Phone: [facility] 02-10-2024 09:39-0400 Diastolic blood pressure 72 mm[Hg] Ella Valdovinos PA-C Work Phone: [facility] 02-10-2024 09:39-0400 Heart rate 60 /min Ella Valdovinos PA-C Work Phone: [facility] 02-10-2024 09:39-0400 Respiratory rate 16 /min Ella Valdovinos PA-C Work Phone: [facility] 02-10-2024 09:39-0400 Systolic blood pressure 118 mm[Hg] Ella Valdovinos PA-C Work Phone: [facility] 01-27-2024 11:15-[address] DEAN CALDWELL MD [facility] 01-27-2024 11:15-[address] DEAN Calero [facility] 01-27-2024 11:15-0400 Body height 170.[address] DEAN CALDWELL MD [facility] 01-27-2024 11:15-0400 Body weight 88.[address] DEAN CALDWELL MD [facility] 01-27-2024 11:15-0400 Body weight 30.59 kg/m2 DR DEAN CALDWELL MD [facility] 01-27-2024 11:15-0400 Diastolic Blood Pressure Non-Invasive 87 mm[Hg] DR DEAN CALDWELL MD [facility] 01-27-2024 11:15-0400 Heart rate 60 /min DR DEAN CALDWELL MD [facility] 01-27-2024 11:15-0400 Respiratory rate 18 /min DR DEAN CALDWELL MD [facility] 01-27-2024 11:15-0400 Systolic Blood Pressure Non-Invasive 151 mm[Hg] DR DEAN CALDWELL MD [facility] 12-31-2023 10:59-0400 Body mass index (BMI) [Ratio] 31.32 kg/m2 Oniel Francis MD Work Phone: [facility] 12-31-2023 10:59-0400 Body temperature 97.5 [degF] Oniel Francis MD Work Phone: [facility] 12-31-2023 10:59-0400 Body weight 90.72 kg Oniel Francis MD Work Phone: [facility] 12-31-2023 10:59-0400 Diastolic blood pressure 82 mm[Hg] Oniel Francis MD Work Phone: [facility] 12-31-2023 10:59-0400 Heart rate 58 /min Oniel Francis MD Work Phone: [facility] 12-31-2023 10:59-0400 Respiratory rate 16 /min Oniel Francsi MD Work Phone: [facility] 12-31-2023 10:59-0400 SaO2% (BldA) [Mass fraction] 95 % Oniel Francis MD Work Phone: [facility] 12-31-2023 10:59-0400 Systolic blood pressure 120 mm[Hg] Oniel Francis MD Work Phone: [facility] 12-23-2023 15:40-0400 Body height 170.2 cm Marj Mackey MD Work Phone: [facility] 12-23-2023 15:40-0400 Body mass index (BMI) [Ratio] 30.79 kg/m2 Marj Mackey MD Work Phone: [facility] 12-23-2023 15:40-0400 Body weight 89.18 kg Marj Mackey MD Work Phone: [facility] 12-23-2023 15:40-0400 Diastolic blood pressure 72 mm[Hg] Marj Mackey MD Work Phone: [facility] 12-23-2023 15:40-0400 Heart rate 57 /min Marj Mackey MD Work Phone: [facility] 12-23-2023 15:40-0400 SaO2% (BldA) [Mass fraction] 96 % Marj Mackey MD Work Phone: [facility] 12-23-2023 15:40-0400 Systolic blood pressure 119 mm[Hg] Marj Mackey MD Work Phone: [facility] 12-14-2023 11:17-0400 Body mass index (BMI) [Ratio] 31.46 kg/m2 Eva Barlow APRN.CNP Work Phone: [facility] 12-14-2023 11:17-0400 Body temperature 96.21 [degF] Eva Jorge ADAMS.CRYPTOGRAPHIC CLERK Work Phone: [facility] 12-14-2023 11:17-0400 Body weight 91.1 kg Eva Barlow APRN.CRYPTOGRAPHIC CLERK Work Phone: [facility] 12-14-2023 11:17-0400 Diastolic blood pressure 62 mm[Hg] Eva Barlow APRN.CRYPTOGRAPHIC CLERK Work Phone: [facility] 12-14-2023 11:17-0400 Heart rate 62 /min Eva Barlow APRN.CRYPTOGRAPHIC CLERK Work Phone: [facility] 12-14-2023 11:17-0400 Respiratory rate 16 /min Eva Barlow APRN.CRYPTOGRAPHIC CLERK Work Phone: [facility] 12-14-2023 11:17-0400 SaO2% (BldA) [Mass fraction] 98 % Eva Barlow APRN.CRYPTOGRAPHIC CLERK Work Phone: [facility] 12-14-2023 11:17-0400 Systolic blood pressure 120 mm[Hg] Eva Jorge ADAMS.CRYPTOGRAPHIC CLERK Work Phone: [facility] 09-11-2023 13:31-0500 Body height 170.2 cm Abby Pate MD Work Phone: [facility] 09-11-2023 13:31-0500 Body weight 92 kg Abby Pate MD Work Phone: [facility] 09-11-2023 13:31-0500 Diastolic blood pressure 78 mm[Hg] Abby Pate MD Work Phone: [facility] 09-11-2023 13:31-0500 Heart rate 66 /min Abby Pate MD Work Phone: [facility] 09-11-2023 13:31-0500 SaO2% (BldA) [Mass fraction] 93 % Abby Pate MD Work Phone: [facility] 09-11-2023 13:31-0500 Systolic blood pressure 139 mm[Hg] Abby Pate MD Work Phone: [facility] 06-24-2023 15:52-0500 Body weight 89.81 kg Marj Mackey MD Work Phone: [facility] 06-24-2023 15:52-0500 Diastolic blood pressure 67 mm[Hg] Marj Mackey MD Work Phone: [facility] 06-24-2023 15:52-0500 Heart rate 66 /min Marj Mackey MD Work Phone: [facility] 06-24-2023 15:52-0500 Respiratory rate 16 /min Marj Mackey MD Work Phone: [facility] 06-24-2023 15:52-0500 SaO2% (BldA) [Mass fraction] 95 % Marj Mackey MD Work Phone: [facility] 06-24-2023 15:52-0500 Systolic blood pressure 117 mm[Hg] Marj Mackey MD Work Phone: [facility] 03-20-2023 11:33-0400 Body height 168.9 cm Abby Pate MD Work Phone: [facility] 03-20-2023 11:33-0400 Body weight 85.28 kg Abby Pate MD Work Phone: [facility] 03-20-2023 11:33-0400 Diastolic blood pressure 87 mm[Hg] Abby Pate MD Work Phone: [facility] 03-20-2023 11:33-0400 Heart rate 63 /min Abby Pate MD Work Phone: [facility] 03-20-2023 11:33-0400 SaO2% (BldA) [Mass fraction] 96 % Abby Pate MD Work Phone: [facility] 03-20-2023 11:33-0400 Systolic blood pressure 135 mm[Hg] Abby Pate MD Work Phone: [facility] 10-29-2022 11:18-0400 Diastolic blood pressure 78 mm[Hg] Marj Mackey MD Work Phone: [facility] 10-29-2022 11:18-0400 Systolic blood pressure 128 mm[Hg] Marj Mackey MD Work Phone: [facility] 10-29-2022 10:47-0400 Body height 170.2 cm Marj Mackey MD Work Phone: [facility] 10-29-2022 10:47-0400 Body weight 92.08 kg Marj Mackey MD Work Phone: [facility] 10-29-2022 10:47-0400 Heart rate 60 /min Marj Mackey MD Work Phone: [facility] 06-22-2022 08:48-0500 Body temperature 97.2 [degF] Oniel Francis MD Work Phone: [facility] 06-22-2022 08:48-0500 Body weight 88.91 kg Oniel Francis MD Work Phone: [facility] 06-22-2022 08:48-0500 Diastolic blood pressure 82 mm[Hg] Oniel Francis MD Work Phone: [facility] 06-22-2022 08:48-0500 Heart rate 60 /min Oniel Francis MD Work Phone: [facility] 06-22-2022 08:48-0500 Respiratory rate 18 /min Oniel Francis MD Work Phone: [facility] 06-22-2022 08:48-0500 Systolic blood pressure 136 mm[Hg] Oniel Francis MD Work Phone: [facility] 04-30-2022 09:59-0400 Body height 170.2 cm Marj Mackey MD Work Phone: [facility] 04-30-2022 09:59-0400 Body weight 88.45 kg Marj Mackey MD Work Phone: [facility] 04-30-2022 09:59-0400 Diastolic blood pressure 80 mm[Hg] Marj Mackey MD Work Phone: [facility] 04-30-2022 09:59-0400 Heart rate 56 /min Marj Mackey MD Work Phone: [facility] 04-30-2022 09:59-0400 SaO2% (BldA) [Mass fraction] 94 % Marj Mackey MD Work Phone: [facility] 04-30-2022 09:59-0400 Systolic blood pressure 120 mm[Hg] Marj Mackey MD Work Phone: [facility] 04-23-2022 17:38-0400 Body temperature 97.9 [degF] Naun Monterroso MD Work Phone: [facility] 04-23-2022 17:38-0400 Body weight 88.45 kg Naun Monterroso MD Work Phone: [facility] 04-23-2022 17:38-0400 Diastolic blood pressure 78 mm[Hg] Naun Motnerroso MD Work Phone: [facility] 04-23-2022 17:38-0400 Heart rate 57 /min Naun Monterroso MD Work Phone: [facility] 04-23-2022 17:38-0400 Respiratory rate 18 /min Naun Monterroso MD Work Phone: [facility] 04-23-2022 17:38-0400 SaO2% (BldA) [Mass fraction] 94 % Naun Monterroso MD Work Phone: [facility] 04-23-2022 17:38-0400 Systolic blood pressure 116 mm[Hg] Naun Monterroso MD Work Phone: [facility] 02-19-2022 09:59-0400 Body temperature 96.8 [degF] Charan Roman APRN.CRYPTOGRAPHIC CLERK Work Phone: [facility] 02-19-2022 09:59-0400 Body weight 86.91 kg Charan Roman APRN.CRYPTOGRAPHIC CLERK Work Phone: [facility] 02-19-2022 09:59-0400 Diastolic blood pressure 82 mm[Hg] Charan Roman CREDIT UNION MANAGER.CRYPTOGRAPHIC CLERK Work Phone: [facility] 02-19-2022 09:59-0400 Heart rate 56 /min Charan Roman CREDIT UNION MANAGER.CRYPTOGRAPHIC CLERK Work Phone: [facility] 02-19-2022 09:59-0400 Respiratory rate 20 /min Charan Roman CREDIT UNION MANAGER.CRYPTOGRAPHIC CLERK Work Phone: [facility] 02-19-2022 09:59-0400 SaO2% (BldA) [Mass fraction] 94 % Charan Roman CREDIT UNION MANAGER.CRYPTOGRAPHIC CLERK Work Phone: [facility] 02-19-2022 09:59-0400 Systolic blood pressure 136 mm[Hg] Charan Roman CREDIT UNION MANAGER.CRYPTOGRAPHIC CLERK Work Phone: [facility] 12-15-2021 15:27-0400 Body height 168 cm Abby Pate MD Work Phone: [facility] 12-15-2021 15:27-0400 Body weight 87.09 kg Abby Pate MD Work Phone: [facility] 12-15-2021 15:27-0400 Diastolic blood pressure 73 mm[Hg] Abby Pate MD Work Phone: [facility] 12-15-2021 15:27-0400 Heart rate 61 /min Abby Pate MD Work Phone: [facility] 12-15-2021 15:27-0400 Systolic blood pressure 128 mm[Hg] Abby Pate MD Work Phone: [facility] Encounters Encounter Date Encounter Type Care Provider Facility Start: 04-10-2025 End: 04-10-2025 Emergency department patient visit Dr. Oniel Francis MD Work Phone: -Emergency Department Work Phone: Start: 04-08-2025 End: 04-08-2025 Chart abstracting Oniel Francis MD Work Phone: [facility] Comment on above: Abstract ([facility] discha rge summary, Dr. Jara) Start: 04-07-2025 End: 04-08-2025 ambulatory Oniel Tito Facility:[facility] Start: 04-07-2025 End: 04-08-2025 Evaluation and management of inpatient Dr. Andi Jara MD -Medical Surgical 3 Work Phone: Start: 04-07-2025 End: 04-08-[address] Oniel Franics MD Work Phone: -Medical Surgical 3 Start: 03-24-2025 End: 03-24-2025 ambulatory [facility] Facility:[facility] Start: 03-24-2025 End: 03-24-2025 Chart abstracting Oniel Francis MD Work Phone: [facility] Comment on above: Abstract (Urology Pr ocedure report) Start: 03-24-2025 End: 03-24-2025 Telephone encounter Oniel Francis MD Work Phone: [facility] Comment on above: Faxed Information Start: 02-26-2025 End: 02-26-2025 Office outpatient new 30 minutes Leti Rodriguez PA-C Work Phone: [facility] Comment on above: Acute URI (Primary D x) Start: 02-26-2025 End: 03-02-2025 Refill Oniel Francis MD Work Phone: [facility] Comment on above: Refill Request Patient Question Start: 02-24-2025 End: 02-24-2025 Chart abstracting Oniel Francis MD Work Phone: [facility] Comment on above: Outside [id number] Ordered; Outside Urology Start: 02-23-2025 End: 02-23-[address] Oniel Francis MD Work Phone: -Laboratory Start: 02-23-2025 End: 02-23-[address] Andi Jara MD -Laboratory Work Phone: Start: 02-23-2025 End: 02-23-2025 ambulatory Oniel Francis Facility:[facility] Start: 02-19-2025 End: 02-25-2025 Telephone encounter Oniel Francis MD Work Phone: [facility] Comment on above: Results; Appointment Start: 02-13-2025 End: 02-15-2025 Refill Abby Pate MD Work Phone: Neurology Comment on above: Refill Request Start: 02-10-2025 End: 02-11-2025 Follow-up encounter Oniel Francis MD Work Phone: [facility] Comment on above: Results Start: 02-08-2025 End: 02-08-2025 ambulatory ELLA VALDOVINOS Facility:[facility] Start: 02-08-2025 End: 02-08-2025 Patient encounter procedure Oniel Francis MD Work Phone: [facility] [place] Comment on above: Medicare annual well ness visit, subsequent (Primary Dx); Mixed hyperlipidemia; Essential hypertension; Acquired hypothyroidism; Elevated blood sugar; Carotid stenosis, asymptomatic, bilateral; 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 Pierre BARTH -[facility] Work Phone: Start: 01-27-2025 ambulatory Leti Hernandez y:[facility] Start: 01-27-[address] Leti jauregui DO -Cardiovascular Services Work Phone: Start: 01-19-2025 ambulatory Oniel Francis Facility :[facility] Start: 01-19-2025 Non-patient / Non-visit Dr. Pierre BARTH -[facility] Start: 01-19-2025 End: 01-19-2025 Evaluation and management of inpatient Dr. Mik Kilgore MD -Progressive Care Unit Work Phone: Start: 01-19-2025 End: 01-19-[address] Oniel Francis MD Work Phone: [facility] Work Phone: Start: 01-19-2025 End: 01-19-2025 ambulatory Leti Lu Facility:[facility] Start: 01-19-2025 Non-patient / Non-visit Dr. Mik jacob MD -[facility] Work Phone: Start: 01-18-2025 End: 01-18-[address] Aramis Larson MD -[facility] Start: 01-18-2025 End: 01-18-[address] Oniel Francis MD Work Phone: [facility] Work Phone: Start: 12-02-2024 End: 12-02-2024 Chart abstracting Prudencio Barlow MA [facility] [place] Comment on above: Consult (Outside [facility] - Dr. Bowden ) Start: 11-02-2024 End: 11-02-2024 Refill Oniel Francis MD Work Phone: [facility] [place] Comment on above: Refill Request Start: 09-18-2024 End: 09-18-2024 Follow-up encounter Marj Mackey MD Work Phone: [facility] Start: 09-18-2024 End: 09-23-2024 Telephone encounter Abby Pate MD Work Phone: Neurology Start: 09-17-2024 End: 09-17-2024 ambulatory MARJ MACKEY Facility:[facility] Start: 09-11-2024 End: 09-11-2024 ambulatory ABBY PATE Facility:[facility] Start: 09-11-2024 End: 09-11-2024 Patient encounter procedure Abby Pate MD Work Phone: Neurology Comment on above: 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); Insomnia, unspecified type; Chronic idiopathic constipation; RBD (REM behavioral disorder) Start: 09-01-2024 End: 09-01-2024 ambulatory MARJ MACKEY Facility:[facility] Start: 08-31-2024 End: 08-31-2024 ambulatory MARJ MACKEY Facility:[facility] Start: 08-31-2024 End: 08-31-2024 Patient encounter procedure Marj Mackey MD Work Phone: Cardiology Comment on above: 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 (Primary Dx); Aortic valve replaced; Mixed hyperlipidemia; Essential hypertension; Carotid stenosis, asymptomatic, bilateral; Hyperlipidemia, unspecified hyperlipidemia type; SAUCEDA (dyspnea on exertion) Start: 08-01-2024 End: 08-03-2024 Refill Zina Duran APRN.[facility] Work Phone: [facility] Comment on above: Med Change Request Start: 07-10-2024 End: 07-13-2024 Refill Oniel Francis MD Work Phone: [facility] Comment on above: Refill Request Start: 06-25-2024 End: 06-25-2024 Refill Zina Duran APRN.CRYPTOGRAPHIC CLERK Work Phone: [facility] Comment on above: Med Change Request Start: 05-30-2024 End: 06-01-2024 Refill Zina Duran APRN.CRYPTOGRAPHIC CLERK Work Phone: [facility] Comment on above: Med Change Request Start: 05-08-2024 End: 05-11-2024 Telephone encounter Zina Duran APRN.CNP Work Phone: [facility] Comment on above: problem scheduling u ltrasound Results Start: 05-07-2024 End: 05-07-2024 Patient encounter procedure Zina Duran APRN.CNP Work Phone: [facility] Comment on above: Bilateral leg pain ( Primary Dx); Bilateral lower extremity edema; Benign localized prostatic hyperplasia with lower urinary tract symptoms (LUTS) Start: 05-07-2024 End: 05-08-2024 ambulatory Oniel Francis Facility:[facility] Start: 05-07-2024 End: 05-08-2024 Telephone encounter Zina Duran APRN.CNP Work Phone: [facility] Comment on above: US DVT order Start: 04-07-2024 End: 04-07-2024 Telephone encounter Ella Valdovinos PA-C Work Phone: [facility] Comment on above: Orders Start: 04-07-2024 End: 04-07-2024 Patient encounter procedure Ella Valdovinos PA-C Work Phone: [facility] Comment on above: Nocturia associated with benign prostatic hyperplasia (Primary Dx) Start: 03-11-2024 End: 03-11-2024 Patient encounter procedure Abby Pate MD Work Phone: Neurology Comment on above: 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); Chronic idiopathic constipation; Insomnia, unspecified type Start: 02-24-2024 Telephone encounter Oniel Francis MD Work Phone: [facility] Comment on above: Medication Question Start: 02-18-2024 End: 02-19-[address] DEAN CALDWELL MD Facility:[facility] Start: 02-18-2024 End: 02-19-[address] DEAN CALDWELL MD [facility] Start: 02-12-2024 Telephone encounter Oniel Francis MD Work Phone: [facility] Comment on above: Requsting Records Start: 02-10-2024 End: 02-10-2024 Patient encounter procedure Ella Valdovinos PA-C Work Phone: [facility] Comment on above: Medicare annual well ness visit, subsequent (Primary Dx); Advance directive discussed with patient; Arthritis of knee; Acquired hypothyroidism; Elevated blood sugar; B12 deficiency; Mixed hyperlipidemia; Essential hypertension; 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; Aortic valve replaced; Parkinson's disease with dyskinesia and fluctuating manifestations (HCC); BPH associated with nocturia Start: 02-05-2024 ambulatory [facility]ina Santiago [facility] Start: 02-05-2024 Patient encounter procedure Zina Santiago MA [facility] Comment on above: Population Health Na vigation Outreach ([place] [facility] 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 - AWV, Care gaps, - [place] [facility]) Start: 02-03-2024 Telephone encounter Ella neff PA-C Work Phone: [facility] Comment on above: Results Start: 01-31-2024 End: 01-31-2024 Subsequent hospital visit by physician Xr [facility] [place] Work Phone: Radiology Comment on above: URI, acute [J06.9] Start: 01-27-2024 End: 01-27-[address] DEAN CALDWELL MD Facility:[facility] Start: 01-27-2024 End: 01-27-[address] DEAN CALDWELL MD [facility] Start: 01-27-2024 End: 01-27-[address] DEAN CALDWELL MD [facility] Start: 01-27-2024 End: 01-27-[address] DEAN CALDWELL MD Facility:[facility] Start: 12-31-2023 End: 12-31-2023 Patient encounter procedure Oniel Francis MD Work Phone: [facility] Comment on above: URI, acute (Primary Dx); X-ray of lung, abnormal; Mixed hyperlipidemia; 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; Elevated blood sugar; Essential hypertension; Acquired hypothyroidism; Vitamin D deficiency; B12 deficiency Start: 12-23-2023 End: 12-23-2023 Patient encounter procedure Marj Mackey MD Work Phone: Cardiology Comment on above: 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 (Primary Dx); Aortic valve replaced; Essential hypertension; Mixed hyperlipidemia; Carotid stenosis, asymptomatic, bilateral; Screening for ischemic heart disease; Pre-operative cardiovascular examination Start: 12-23-2023 End: 12-23-2023 Patient encounter status Marj Mackey MD Work Phone: [facility] Start: 12-16-2023 Telephone encounter Oniel Francis MD Work Phone: [facility] [place] Comment on above: Appointment Start: 12-14-2023 End: 12-14-2023 Subsequent hospital visit by physician Xr [facility] [place] Work Phone: Radiology Comment on above: Acute cough [R05.1] Start: 12-14-2023 End: 12-14-2023 Patient encounter procedure Eva Barlow APRN.CNP Work Phone: [facility] Comment on above: Acute cough (Primary Dx) Start: 11-12-2023 ambulatory Lelia Soni MA [facility] Comment on above: Population Health Na vigation Outreach ([place] [facility] ) Start: 09-11-2023 End: 09-11-2023 Patient encounter procedure Abby Pate MD Work Phone: Neurology Comment on above: 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); Chronic idiopathic constipation; Insomnia, unspecified type Start: 06-24-2023 End: 06-24-2023 Patient encounter procedure Marj Mackey MD Work Phone: Cardiology Comment on above: 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 (Primary Dx); Aortic valve replaced; Essential hypertension; Hyperlipidemia, unspecified hyperlipidemia type; Mixed hyperlipidemia; Carotid stenosis, asymptomatic, bilateral; SAUCEDA (dyspnea on exertion) Start: 03-20-2023 End: 03-20-2023 Patient encounter procedure Abby Pate MD Work Phone: Neurology Comment on above: Parkinson disease (H CC) (Primary Dx); Chronic idiopathic constipation; RBD (REM behavioral disorder) Start: 03-19-2023 Refill Abby Pate MD Work Phone: [facility] Comment on above: Refill Request (Carb idopa-Levodopa) Start: 12-25-2022 Patient encounter procedure Abby Pate MD Work Phone: [facility] Work Phone: Start: 12-12-2022 Telephone encounter Marj Mackey MD Work Phone: Cardiology Comment on above: Patient Update Start: 11-08-2022 Refill Oniel smith MD Work Phone: [facility] [place] Comment on above: Refill Request Start: 11-07-2022 Telephone encounter Marj Mackey MD Work Phone: Cardiology Comment on above: Patient Question Start: 10-29-2022 End: 10-29-2022 Patient encounter procedure Marj Mackey MD Work Phone: Cardiology Comment on above: 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 (Primary Dx); Aortic valve replaced; Essential hypertension; Mixed hyperlipidemia; Carotid stenosis, asymptomatic, bilateral; Hyperlipidemia, unspecified hyperlipidemia type Start: 07-13-2022 Refill Abby Pate MD Work Phone: [facility] Comment on above: Refill Request Start: 06-25-2022 Telephone encounter Oniel Francis MD Work Phone: [facility] [place] Comment on above: Results Start: 06-22-2022 End: 06-22-2022 Patient encounter procedure Oniel Francis MD Work Phone: [facility] [place] Comment on above: Essential hypertensi on (Primary Dx); Mixed hyperlipidemia; Elevated blood sugar; 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; Carotid stenosis, asymptomatic, bilateral; Acquired hypothyroidism; Vitamin D deficiency; Obesity, Class I, BMI 30-34.9; B12 deficiency; Viral URI with cough; Medication management Start: 06-18-2022 End: 06-18-2022 [facility] Abby Pate MD Work Phone: Neurology Comment on above: Parkinson disease (H CC) (Primary Dx); Chronic idiopathic constipation; RBD (REM behavioral disorder) Start: 05-23-2022 End: 05-23-2022 ambulatory Mi Nurse Work Phone: [facility] Start: 05-11-2022 Refill Ella Russo on PA-C Work Phone: [facility] [place] Comment on above: Refill Request Start: 04-30-2022 End: 04-30-2022 Patient encounter procedure Marj Mackey MD Work Phone: Cardiology Comment on above: 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 (Primary Dx); Aortic valve replaced; Essential hypertension; Mixed hyperlipidemia; Carotid stenosis, asymptomatic, bilateral; Hyperlipidemia, unspecified hyperlipidemia type Start: 04-23-2022 End: 04-23-2022 Orders Only Marj Mackey MD Work Phone: Cardiology Comment on above: Aortic valve replace d (Primary Dx) Olecranon bursitis o f right elbow (Primary Dx) Start: 02-19-2022 End: 02-19-2022 Patient encounter procedure Charan Roman APRN.CNP Work Phone: [facility] Comment on above: Rash (Primary Dx) Start: 12-15-2021 End: 12-15-2021 Patient encounter procedure Abby Pate MD Work Phone: Neurology Comment on above: Parkinson disease (H CC) (Primary Dx); Chronic idiopathic constipation; RBD (REM behavioral disorder) Start: 12-12-2021 Patient encounter procedure Abby Pate MD Work Phone: [facility] Work Phone: Start: 12-01-2021 ambulatory Oniel smith MD Work Phone: [facility] Start: 12-01-2021 Patient encounter procedure Oniel Francis MD Work Phone: Family [facility] [place] Comment on above: office visit Start: 11-07-2021 Refill Ella Russo on PA-C Work Phone: Family [facility] [place] Comment on above: Refill Request Start: 05-05-2021 Patient encounter procedure Ella Valdovinos PA-C Work Phone: [facility] Work Phone: Start: 08-26-2018 End: 08-26-2018 Evaluation and management of inpatient ARLENE Meredith Facility:[facility] Start: 01-17-2018 Patient encounter procedure KIZZY BAILEY Facility:[facility] Start: 12-31-2017 Patient encounter procedure KIZZY BAILEY Facility:[facility] Procedures Date Procedure Procedure Detail Performing Clinician Start: 04-10-2025 Urnls dip stick/tabl et reagent auto microscopy Dr. Oniel Francis MD Work Phone: Start: 04-10-[address] Oniel Francis MD Work Phone: Start: 04-07-[address] Oniel Francis [...] performed to confirm baseline values. Start: 02-08-2025 [employer] COVI D-19 VACCINE AGE 12+ YR (COMIRNATY) [...] exam ches t 2 views Eva Barlow APRN.CRYPTOGRAPHIC CLERK Work Phone: Start: 05-23-2022 INFLUENZA SEASONAL QUADRIVALENT [...] Start: 02-09-2028 Diabetes Screening Diabetes Screenin g [facility] Start: 12-04-2027 Urine microalbumin profile [facility] Start: 09-01-2027 Diabetes Screening Diabetes Screenin g [facility] Start: 05-07-2027 Diabetes Screening Diabetes Screenva g [facility] Start: 01-30-2027 [facility] Start: 02-09-2026 End: 02-09-2026 Patient encounter procedure 02/09/2026 8:00 AM EDT Office Visit [facility] [address] [place] [address] Oniel Francis MD [address] [place] [address] [id number] Medicare Wellness [facility] Comment on above: Medicare Wellness Start: 02-08-2026 Anxiety Screening Anxiety Screening [facility] Start: 02-08-2026 Depression Screening Depression Scre ening [facility] Start: 02-08-2026 Hepatitis B surface antibody level LDL Cholesterol [facility] Start: 01-28-2026 End: 04-29-2026 25-hydroxyvitamin D3 [Mass/volume] in Serum or Plasma VITAMIN D 25 HYDROXY Lab Routine Vitamin D deficiency Expected: 01/28/2026, Expires: 04/29/2026 [facility] Comment on above: Expected: 01/28/2026 , Expires: 04/29/2026 Start: 01-28-2026 End: 04-29-2026 CBC W Auto Differential panel - Blood COMPLETE BLOOD COUNT AND DIFFERENTIAL Lab Routine Acquired hypothyroidism B12 deficiency Medication management Expected: 01/28/2026, Expires: 04/29/2026 [facility] Comment on above: Expected: 01/28/2026 , Expires: 04/29/2026 Start: 01-28-2026 End: 04-29-2026 Cobalamin (Vitamin B12) [Mass/volume] in Serum or Plasma VITAMIN B12 Lab Routine B12 deficiency Expected: 01/28/2026, Expires: 04/29/2026 [facility] Work Phone: Comment on above: Expected: 01/28/2026 , Expires: 04/29/2026 Start: 01-28-2026 End: 04-29-2026 Comprehensive metabolic 2000 panel - Serum or Plasma COMPREHENSIVE METABOLIC PANEL Lab Routine Mixed hyperlipidemia Essential hypertension Elevated blood sugar Expected: 01/28/2026, Expires: 04/29/2026 [facility] Comment on above: Expected: 01/28/2026 , Expires: 04/29/2026 Start: 01-28-2026 End: 04-29-2026 Hemoglobin A1c in Blood HEMOGLOBIN A1C Lab Routine Elevated blood sugar Expected: 01/28/2026, Expires: 04/29/2026 [facility] Comment on above: Expected: 01/28/2026 , Expires: 04/29/2026 Start: 01-28-2026 End: 04-29-2026 LIPID PANEL, NONFASTING LIPID PANEL, NONFASTING Lab Routine Mixed hyperlipidemia Essential hypertension Carotid stenosis, asymptomatic, bilateral 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 Expected: 01/28/2026, Expires: 04/29/2026 [facility] Comment on above: Expected: 01/28/2026 , Expires: 04/29/2026 Start: 01-28-2026 End: 04-29-2026 Thyrotropin [Units/volume] in Serum or Plasma THYROID STIMULATING HORMONE Lab Routine Acquired hypothyroidism Expected: 01/28/2026, Expires: 04/29/2026 [facility] Comment on above: Expected: 01/28/2026 , Expires: 04/29/2026 Start: 01-28-2026 End: 04-29-2026 Urinalysis complete panel - Urine URINALYSIS, WITH MICROSCOPIC Lab Routine Mixed hyperlipidemia Essential hypertension Expected: 01/28/2026, Expires: 04/29/2026 [facility] Comment on above: Expected: 01/28/2026 , Expires: 04/29/2026 Start: 12-25-2025 DIABETES SCREEN DIABETES SCREEN [facility] Start: 12-25-2025 Diabetes Screening Diabetes Screenin g [facility] Start: 10-11-2025 End: 10-11-2025 Patient encounter procedure 10/11/2025 8:00 AM EDT Office Visit Neurology [address] [place], [place] [id number] Talat Escobedo Jr., MD [address] [place] [address] Sleeping is minimal or not all. I have tried [id number] meds, new mattresses, etc. per web request Neurology Comment on above: Sleeping is minimal or not all. I have tried [id number] meds, new mattresses, etc. per web request Start: 10-01-2025 End: 10-01-2025 Patient encounter procedure 10/01/2025 4:30 PM EST Office Visit Neurology [address] [place] [address] [place] [id number] Abby Pate MD [address] [place] [address] Return in about 6 months (around 09/24/2025). Neurology Comment on above: Return in about 6 mo nths (around 09/24/2025). Start: 09-01-2025 Hepatitis B surface antibody level LDL Cholesterol [facility] Start: 08-11-2025 Covid-19 Vaccine ( season) Covid-19 Vaccine () [facility] Start: 06-22-2025 DIABETES SCREEN DIABETES SCREEN [facility] Start: 06-11-2025 End: 09-10-2025 Hemoglobin A1c in Blood HEMOGLOBIN A1C Lab Routine Elevated hemoglobin A1c Expected: 06/11/2025, Expires: 09/10/2025 [facility] Work Phone: Comment on above: Expected: 06/11/2025 , Expires: 09/10/2025 Start: 05-24-2025 End: 05-24-2025 Patient encounter procedure 05/24/2025 9:20 AM EDT Office Visit Cardiology [address] [place] [address] Marj Mackey MD [address] [facility] [address] [place] [address] 6 month follow up Cardiology Comment on above: 6 month follow up Start: 04-12-2025 End: 04-12-2025 Patient encounter procedure Cardiology Comment on above: Recent heart monitor due to possible TIA follow up Start: 04-10-2025 Bacteria identified in Urine by Culture Urine Culture [facility] Start: 04-10-2025 End: 04-10-2025 [facility] Start: 04-08-2025 Measuring intake and output [facility] Start: 04-08-2025 Removal of urinary catheter [facility] Start: 04-08-2025 Patient discharge [facility] Start: 04-07-2025 Following clinical p athway protocol [facility] Start: 04-07-2025 Application of intermittent pneumatic compression device [facility] Start: 04-07-[address]25 [address] and output [facility] Start: 04-07-[address] [facility] Start: 04-07-[address] [facility] Start: 04-07-2025 Provision of activit y privileges [facility] Start: 04-07-2025 Admission procedure [facility] Start: 04-07-2025 Assessment of risk o f venous thromboembolism [facility] Start: 04-07-2025 Irrigation of urinar y bladder [facility] Start: 04-07-2025 Taking patient vital signs [facility] Start: 04-07-[address] [facility] Start: 04-07-2025 End: 04-07-2025 [facility] Start: 04-07-2025 Verification routine [facility] Start: 04-05-2025 Influenza vaccination Influenza Vacc ine (#1) [facility] Start: 03-24-2025 End: 03-24-2025 Patient encounter procedure Neurology Comment on above: six month follow up Start: 03-12-2025 End: 03-12-2025 Patient encounter procedure 03/12/2025 3:30 PM EDT Office Visit Neurology [address] [place] [id number] Abby Pate MD [address] [place] [address] six month follow up Neurology Comment on above: six month follow up Start: 03-01-2025 End: 03-01-2025 Patient encounter procedure 03/01/2025 9:20 AM EDT Office Visit Cardiology [address] [place] [address] Marj Mackey MD [address] [place] [address] [place], [place] [id number] Recent heart monitor due to possible TIA follow up Cardiology Comment on above: Recent heart monitor due to possible TIA follow up Start: 02-09-2025 Anxiety Screening Anxiety Screening [facility] Start: 02-09-2025 Depression Screening Depression Scre ening [facility] Start: 02-08-2025 End: 02-08-2025 Patient encounter procedure [facility] Comment on above: Medicare Wellness Start: 02-02-2025 End: 05-04-2025 25-hydroxyvitamin D3 [Mass/volume] in Serum or Plasma VITAMIN D 25 HYDROXY Lab Routine Vitamin D deficiency Expected: 02/02/2025, Expires: 05/04/2025 [facility] Comment on above: Expected: 02/02/2025 , Expires: 05/04/2025 Start: 02-02-2025 End: 05-04-2025 CBC W Auto Differential panel - Blood COMPLETE BLOOD COUNT AND DIFFERENTIAL Lab Routine Essential hypertension B12 deficiency Elevated blood sugar Expected: 02/02/2025, Expires: 05/04/2025 [facility] Comment on above: Expected: 02/02/2025 , Expires: 05/04/2025 Start: 02-02-2025 End: 05-04-2025 Cobalamin (Vitamin B12) [Mass/volume] in Serum or Plasma VITAMIN B12 Lab Routine B12 deficiency Expected: 02/02/2025, Expires: 05/04/2025 [facility] Comment on above: Expected: 02/02/2025 , Expires: 05/04/2025 Start: 02-02-2025 End: 05-04-2025 Comprehensive metabolic 2000 panel - Serum or Plasma COMPREHENSIVE METABOLIC PANEL Lab Routine Essential hypertension Expected: 02/02/2025, Expires: 05/04/2025 [facility] Comment on above: Expected: 02/02/2025 , Expires: 05/04/2025 Start: 02-02-2025 End: 05-04-2025 Hemoglobin A1c in Blood HEMOGLOBIN A1C Lab Routine Elevated blood sugar Expected: 02/02/2025, Expires: 05/04/2025 [facility] Comment on above: Expected: 02/02/2025 , Expires: 05/04/2025 Start: 02-02-2025 End: 05-04-2025 LIPID PANEL, NONFASTING LIPID PANEL, NONFASTING Lab Routine Mixed hyperlipidemia Expected: 02/02/2025, Expires: 05/04/2025 [facility] Work Phone: Comment on above: Expected: 02/02/2025 , Expires: 05/04/2025 Start: 02-02-2025 End: 05-04-2025 Thyrotropin [Units/volume] in Serum or Plasma THYROID STIMULATING HORMONE Lab Routine Acquired hypothyroidism Expected: 02/02/2025, Expires: 05/04/2025 [facility] Comment on above: Expected: 02/02/2025 , Expires: 05/04/2025 Start: 02-02-2025 End: 05-04-2025 Urinalysis complete panel - Urine URINALYSIS, WITH MICROSCOPIC Lab Routine Essential hypertension Expected: 02/02/2025, Expires: 05/04/2025 [facility] Comment on above: Expected: 02/02/2025 , Expires: 05/04/2025 Start: 01-30-2025 Hepatitis B surface antibody level LDL Cholesterol [facility] Start: 01-19-2025 Patient discharge [facility] Start: 01-19-2025 Telemedicine consult ation with patient [facility] Start: 01-19-2025 Following clinical p athway protocol [facility] Start: 01-19-[address] [facility] Start: 01-19-[address] [facility] Start: 01-19-2025 Assessment of risk o f venous thromboembolism [facility] Start: 01-19-2025 Cardiac monitoring [facility] Start: 01-19-[address] [facility] Start: 01-19-2025 Consultation [facility] Start: 01-19-[address] [facility] Start: 01-19-2025 Elevation of head of bed [facility] Start: 01-19-2025 Exercises [facility] Start: 01-19-2025 Insertion of cathete r into peripheral vein [facility] Start: 01-19-2025 Measuring intake and output [facility] Start: 01-19-[address] [facility] Start: 01-19-2025 Patient referral to dietitian [facility] Start: 01-19-2025 Providing care accor ding to standard [facility] Start: 01-19-2025 Referral to occupati onal therapist [facility] Start: 01-19-2025 Referral to service [facility] Start: 01-19-[address] [facility] Start: 01-19-2025 Tobacco use cessatio n education [facility] Start: 01-19-[address] [facility] Start: 01-19-2025 MRI of brain without contrast Brain without Contrast [facility] Start: 01-19-2025 Verification routine [facility] Start: 01-19-2025 Admission procedure [facility] Start: 01-19-2025 Hospital admission, emergency, from emergency room, medical nature [facility] Start: 01-19-2025 End: 01-19-[address] [facility] Start: 01-19-2025 End: 01-19-2025 [facility] Start: 01-18-2025 X-ray of lumbar spin e, two or three views Lumbar Spine [address] [facility] Start: 01-18-2025 XR Lumbar spine [address] [facility] Start: 12-12-2024 DIABETES SCREEN DIABETES SCREEN [facility] Start: 09-17-2024 End: 09-17-2024 Patient encounter procedure 09/17/2024 9:40 AM EST Office Visit Cardiology [address] [place], [place] [address] Coronary 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cantwell coronary artery of 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... Cardiology Comment on above: Coronary artery dise ase involving cantwell coronary artery of 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... Start: 09-11-2024 End: 09-11-2024 Patient encounter procedure 09/11/2024 3:00 PM EST Office Visit Neurology [address] [place] [id number] Abby Pate MD [address] [place] [address] Six month follow up Neurology Comment on above: Six month follow up Start: 09-01-2024 End: 09-01-2024 ambulatory 09/01/2024 7:45 AM EST Results Only [place] [facility] [address] [place] [id number] Labs 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 Hyperlipidemia, unspecified hyperlipidemia type Expected: 08/31/2024, Expires: 11/30/2024 [facility] Comment on above: Expected: 08/31/2024 , Expires: 11/30/2024 Start: 08-31-2024 End: 11-30-2024 Lipid 1996 panel - Serum or Plasma LIPID PANEL BASIC Lab Routine Hyperlipidemia, unspecified hyperlipidemia type Expected: 08/31/2024, Expires: 11/30/2024 [facility] Comment on above: Expected: 08/31/2024 , Expires: 11/30/2024 Start: 08-31-2024 End: 11-30-2024 Natriuretic peptide.B prohormone N-Terminal [Mass/volume] in Serum or Plasma NT PRO BNP Lab Routine SAUCEDA (dyspnea on exertion) Expected: 08/31/2024, Expires: 11/30/2024 [facility] Comment on above: Expected: 08/31/2024 , Expires: 11/30/2024 Start: 08-05-2024 Advance Directive Discussion Advance Directive Discussion [facility] Start: 06-09-2024 DIABETES SCREEN DIABETES SCREEN [facility] Start: 05-08-2024 End: 05-08-2024 Patient encounter procedure 05/08/2024 1:00 PM EDT Appointment [facility] [address] [place], [place] [id number] Bilateral leg pain [M79.604, M79.605] [facility] Comment on above: Bilateral leg pain [ M79.604, M79.605] Start: 05-07-2024 End: 08-06-2024 CBC W Auto Differential panel - Blood [facility] Work Phone: Comment on above: Expected: 05/07/2024 , Expires: 08/06/2024 Start: 05-07-2024 End: 08-06-2024 Comprehensive metabolic 2000 panel - Serum or Plasma [facility] Comment on above: Expected: 05/07/2024 , Expires: 08/06/2024 Start: 05-07-2024 End: 08-06-2024 Magnesium [Mass/volume] in Serum or Plasma [facility] Comment on above: Expected: 05/07/2024 , Expires: 08/06/2024 Start: 05-07-2024 End: 08-06-2024 Phosphate [Mass/volume] in Serum or Plasma [facility] Comment on above: Expected: 05/07/2024 , Expires: 08/06/2024 Start: 04-07-2024 End: 04-07-2024 Patient encounter procedure 04/07/2024 10:40 AM EDT Office Visit Family Medicine [place] [address] [place] [address] Ella Valdovinos PA-C [address] [facility] [place] [address] 8 wk follow up, noctural urination/med follow upo [facility] [place] Comment on above: 8 wk follow up, noct ural urination/med follow upo Start: 04-05-2024 Covid-19 Vaccine ( season) Covid-19 Vaccine () [facility] Start: 04-05-2024 Covid-19 Vaccine () Covid-19 Vaccine () [facility] Start: 04-05-2024 Influenza vaccination [facility] Start: 03-11-2024 End: 03-11-2024 Patient encounter procedure 03/11/2024 1:00 PM EDT Office Visit Neurology [address] [place] [phone] Abby Pate MD [address] [place] [address] 6 month follow up Neurology Comment on above: 6 month follow up Start: 02-10-2024 End: 02-10-2024 Patient encounter procedure 02/10/2024 9:40 AM EDT Office Visit Family Medicine [place] [address] [place] [address] Ella Valdovinos PA-C [address] [place] [id number] Medicare Wellness [facility] [place] Comment on above: Medicare Wellness Start: 01-30-2024 End: 01-30-2024 Patient encounter procedure 01/30/2024 9:00 AM EDT Office Visit Family Medicine [place] [address] [place] [address] Oniel Francis MD [address] [place], [place] [id number] Medicare Wellness [facility] [place] Comment on above: Medicare Wellness Start: 01-17-2024 End: 04-17-2024 25-hydroxyvitamin D3 [Mass/volume] in Serum or Plasma VITAMIN D 25 HYDROXY Lab Routine Vitamin D deficiency Expected: 01/17/2024, Expires: 04/17/2024 [facility] Comment on above: Expected: 01/17/2024 , Expires: 04/17/2024 Start: 01-17-2024 End: 04-17-2024 CBC W Auto Differential panel - Blood COMPLETE BLOOD COUNT AND DIFFERENTIAL Lab Routine Acquired hypothyroidism Expected: 01/17/2024, Expires: 04/17/2024 [facility] Comment on above: Expected: 01/17/2024 , Expires: 04/17/2024 Start: 01-17-2024 End: 04-17-2024 Cobalamin (Vitamin B12) [Mass/volume] in Serum or Plasma VITAMIN B12 Lab Routine B12 deficiency Expected: 01/17/2024, Expires: 04/17/2024 [facility] Comment on above: Expected: 01/17/2024 , Expires: 04/17/2024 Start: 01-17-2024 End: 04-17-2024 Comprehensive metabolic 2000 panel - Serum or Plasma COMPREHENSIVE METABOLIC PANEL Lab Routine 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 Elevated blood sugar Essential hypertension Expected: 01/17/2024, Expires: 04/17/2024 [facility] Comment on above: Expected: 01/17/2024 , Expires: 04/17/2024 Start: 01-17-2024 End: 04-17-2024 Hemoglobin A1c in Blood HEMOGLOBIN A1C Lab Routine Elevated blood sugar Expected: 01/17/2024, Expires: 04/17/2024 [facility] Comment on above: Expected: 01/17/2024 , Expires: 04/17/2024 Start: 01-17-2024 End: 04-17-2024 LIPID PANEL, NONFASTING LIPID PANEL, NONFASTING Lab Routine 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 Essential hypertension Expected: 01/17/2024, Expires: 04/17/2024 [facility] Comment on above: Expected: 01/17/2024 , Expires: 04/17/2024 Start: 01-17-2024 End: 04-17-2024 Thyrotropin [Units/volume] in Serum or Plasma THYROID STIMULATING HORMONE Lab Routine Acquired hypothyroidism Expected: 01/17/2024, Expires: 04/17/2024 [facility] Comment on above: Expected: 01/17/2024 , Expires: 04/17/2024 Start: 01-17-2024 End: 04-17-2024 Urinalysis complete panel - Urine URINALYSIS, WITH MICROSCOPIC Lab Routine Mixed hyperlipidemia Essential hypertension Expected: 01/17/2024, Expires: 04/17/2024 [facility] Comment on above: Expected: 01/17/2024 , Expires: 04/17/2024 Start: 01-14-2024 End: 01-29-2025 XR Chest PA and Lateral XR CHEST 2V FRONTAL/LAT Radiology Routine URI, acute X-ray of lung, abnormal Expected: 01/14/2024, Expires: 01/29/2025 [facility] Work Phone: Comment on above: Expected: 01/14/2024 , Expires: 01/29/2025 Start: 12-31-2023 End: 12-31-2023 Patient encounter procedure 12/31/2023 10:40 AM EDT Office Visit Family Medicine [place] [address] [place] [address] Oniel Francis MD [address] [place], [place] [address] 12/13 EC Follow Up [facility] [place] Comment on above: 12/13 EC Follow Up Start: 12-26-2023 Hepatitis B surface antibody level LDL CHOLESTEROL [facility] Start: 12-23-2023 End: 12-23-2023 Patient encounter procedure 12/23/2023 3:40 PM EDT Office Visit Cardiology [address] [place] [phone] Marj Mackey MD [address] [place], [place] [phone] 6 month follow up Cardiology Comment on above: 6 month follow up Start: 10-30-2023 BP CONTROLLED (<130/80) BP CONTROLLE D (<130/80) [facility] Start: 09-27-2023 Covid-19 Vaccine (7 - 2023-24 season) Covid-19 Vaccine ( season) [facility] Start: 08-05-2023 Advance Directive Discussion Advance Directive Discussion [facility] Start: 08-05-2023 Behavioral Health Screening Behavioral Health Screening [facility] Start: 08-05-2023 Depression Assessment Depression Ass essment [facility] Start: 06-22-2023 ANNUAL PCP TEAM CORRECTIONS CADET SHANDA DISEASE VISIT ANNUAL PCP TEAM CHRONIC DISEASE VISIT [facility] Start: 06-22-2023 BP CONTROLLED (<130/80) BP CONTROLLE D (<130/80) [facility] Start: 06-14-2023 Hepatitis B surface antibody level LDL CHOLESTEROL [facility] Start: 04-23-2023 BP CONTROLLED (<130/80) BP CONTROLLE D (<130/80) [facility] Start: 04-05-2023 Influenza vaccination [facility] Start: 12-15-2022 BP CONTROLLED (<130/80) BP CONTROLLE D (<130/80) [facility] Start: 12-12-2022 Adult depression scr eening assessment DEPRESSION SCREENING [facility] Start: 12-12-2022 ANNUAL PCP TEAM CORRECTIONS CADET SHANDA DISEASE VISIT ANNUAL PCP TEAM CHRONIC DISEASE VISIT [facility] Start: 12-12-2022 Hepatitis B surface antibody level LDL CHOLESTEROL [facility] Start: 12-07-2022 End: 02-06-2023 25-hydroxyvitamin D3 [Mass/volume] in Serum or Plasma VITAMIN D 25 HYDROXY Lab Routine Vitamin D deficiency Expected: 12/07/2022, Expires: 02/06/2023 [facility] Work Phone: Comment on above: Expected: 12/07/2022 , Expires: 02/06/2023 Start: 12-07-2022 End: 02-06-2023 CBC W Auto Differential panel - Blood CBC + DIFF Lab Routine Acquired hypothyroidism Medication management Expected: 12/07/2022, Expires: 02/06/2023 [facility] Work Phone: Comment on above: Expected: 12/07/2022 , Expires: 02/06/2023 Start: 12-07-2022 End: 02-06-2023 Cobalamin (Vitamin B12) [Mass/volume] in Serum or Plasma VITAMIN B12 BLOOD Lab Routine B12 deficiency Expected: 12/07/2022, Expires: 02/06/2023 [facility] Work Phone: Comment on above: Expected: 12/07/2022 , Expires: 02/06/2023 Start: 12-07-2022 End: 02-06-2023 Comprehensive metabolic 2000 panel - Serum or Plasma COMP METABOLIC PANEL Lab Routine Mixed hyperlipidemia Essential hypertension 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 Expected: 12/07/2022, Expires: 02/06/2023 [facility] Work Phone: Comment on above: Expected: 12/07/2022 , Expires: 02/06/2023 Start: 12-07-2022 End: 02-06-2023 Hemoglobin A1c in Blood HGB A1C Lab Routine Elevated blood sugar Expected: 12/07/2022, Expires: 02/06/2023 [facility] Work Phone: Comment on above: Expected: 12/07/2022 , Expires: 02/06/2023 Start: 12-07-2022 End: 02-06-2023 LIPID PANEL, NONFASTING LIPID PANEL, NONFASTING Lab Routine Mixed hyperlipidemia Essential hypertension 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 Expected: 12/07/2022, Expires: 02/06/2023 [facility] Work Phone: Comment on above: Expected: 12/07/2022 , Expires: 02/06/2023 Start: 12-07-2022 End: 02-06-2023 Thyrotropin [Units/volume] in Serum or Plasma TSH BLD Lab Routine Acquired hypothyroidism Expected: 12/07/2022, Expires: 02/06/2023 [facility] Work Phone: Comment on above: Expected: 12/07/2022 , Expires: 02/06/2023 Start: 12-07-2022 End: 02-06-2023 Urinalysis complete panel - Urine URINALYSIS, WITH MICROSCOPIC Lab Routine Mixed hyperlipidemia Essential hypertension Expected: 12/07/2022, Expires: 02/06/2023 [facility] Work Phone: Comment on above: Expected: 12/07/2022 , Expires: 02/06/2023 Start: 10-06-2022 COVID-19 VACCINE (6 - Moderna series) COVID-19 VACCINE (6 - Moderna series) [facility] Start: 08-14-2022 BP CONTROLLED (<130/80) BP CONTROLLE D (<130/80) [facility] Start: 08-05-2022 ADVANCE DIRECTIVE DISCUSSION ADVANCE DIRECTIVE DISCUSSION [facility] Start: 08-05-2022 DEPRESSION ASSESSMENT DEPRESSION ASS ESSMENT [facility] Start: 06-09-2022 ANNUAL PCP TEAM CORRECTIONS CADET SHANDA DISEASE VISIT ANNUAL PCP TEAM CHRONIC DISEASE VISIT [facility] Start: 06-09-2022 Hepatitis B surface antibody level LDL CHOLESTEROL [facility] Start: 06-08-2022 Adult depression scr eening assessment DEPRESSION SCREENING [facility] Start: 04-30-2022 End: 06-30-2022 Alanine aminotransferase [Enzymatic activity/volume] in Serum or Plasma ALT/SGPT Lab Routine Mixed hyperlipidemia Expected: 04/30/2022, Expires: 06/30/2022 [facility] Work Phone: Comment on above: Expected: 04/30/2022 , Expires: 06/30/2022 Start: 04-30-2022 End: 06-30-2022 Aspartate aminotransferase [Enzymatic activity/volume] in Serum or Plasma AST/SGOT BLD Lab Routine Mixed hyperlipidemia Expected: 04/30/2022, Expires: 06/30/2022 [facility] Work Phone: Comment on above: Expected: 04/30/2022 , Expires: 06/30/2022 Start: 04-30-2022 End: 06-30-2022 Lipid 1996 panel - Serum or Plasma LIPID PANEL BASIC Lab Routine Mixed hyperlipidemia Expected: 04/30/2022, Expires: 06/30/2022 [facility] Work Phone: Comment on above: Expected: 04/30/2022 , Expires: 06/30/2022 Start: 04-20-2022 COVID-19 VACCINE (5 - Booster for Moderna series) COVID-19 VACCINE (5 - Booster for Moderna series) [facility] Start: 04-05-2022 Influenza vaccination INFLUENZA (#1) [facility] Start: 10-02-2021 COVID-19 VACCINE (4 - Booster for Moderna series) COVID-19 VACCINE (4 - Booster for Moderna series) [facility] Start: 08-05-2021 ADVANCE DIRECTIVE DISCUSSION ADVANCE DIRECTIVE DISCUSSION [facility] Start: 08-05-2021 DEPRESSION ASSESSMENT DEPRESSION ASS ESSMENT [facility] Start: 06-22-2020 BP CONTROLLED (<130/80) BP CONTROLLE D (<130/80) [facility] Cardiac event recording [facility] COVID & INFLUENZA A/ B & RSV PCR, ROUTINE COVID & INFLUENZA A/B & RSV PCR, ROUTINE Microbiology Routine Acute URI Ordered: 02/26/2025 [facility] Work Phone: Comment on above: Ordered: 02/26/2025 End: 04-23-2023 ECG COMPLETE ECG COMPLETE ECG Routine Aortic valve replaced 1 Occurrences starting 04/23/2022 until 04/23/2023 [facility] Work Phone: Comment on above: 1 Occurrences starti ng 04/23/2022 until 04/23/2023 ECG COMPLETE ECG COMPLETE ECG Routine Essential hypertension Hyperlipidemia, unspecified hyperlipidemia type Ordered: 06/18/2023 [facility] Work Phone: Comment on above: Ordered: 06/18/2023 ECG COMPLETE ECG COMPLETE ECG Routine Screening for ischemic heart disease Ordered: 12/18/2023 [facility] Work Phone: Comment on above: Ordered: 12/18/2023 ECG COMPLETE ECG COMPLETE ECG 12/23/2023 3:45 PM EDT [facility] End: 06-24-2024 Echocardiography ECHO Cardiology Routine Aortic valve replaced SAUCEDA (dyspnea on exertion) 1 Occurrences starting 06/24/2023 until 06/24/2024 [facility] Work Phone: Comment on above: 1 Occurrences starti ng 06/24/2023 until 06/24/2024 End: 08-31-2025 Echocardiography ECHO Cardiology Routine 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 Work Phone: Patient referral [facility] Work Phone: Urine culture [facility] End: 04-30-2023 US CAROTID ARTERIES [facility] US CAROTID ARTERIES [facility] Vascular Lab Routine Carotid stenosis, asymptomatic, bilateral 1 Occurrences starting 04/30/2022 until 04/30/2023 [facility] Work Phone: Comment on above: 1 Occurrences starti ng 04/30/2022 until 04/30/2023 End: 06-24-2024 US CAROTID ARTERIES [facility] US CAROTID ARTERIES [facility] Vascular Lab Routine Carotid stenosis, asymptomatic, bilateral 1 Occurrences starting 06/24/2023 until 06/24/2024 [facility] Work Phone: Comment on above: 1 Occurrences starti ng 06/24/2023 until 06/24/2024 End: 06-06-2025 US Lower extremity vein - bilateral US DVT LOWER BILATERAL Radiology STAT Bilateral leg pain Bilateral lower extremity edema 1 Occurrences starting 05/07/2024 until 06/06/2025 [facility] Comment on above: 1 Occurrences starti ng 05/07/2024 until 06/06/2025 [facility] Immunizations Immunization Date Immunization Notes Care Provider Fa [facility] 02-08-2025 COVID-19 vaccine, ag e 12+ yr (PFIZER-BIOLavante COMIRNATY) Oniel Francis MD Work Phone: [facility] 06-03-2024 influenza virus vacc ine, unspecified formulation Oniel Francis MD Work Phone: [facility] 06-14-2023 respiratory syncytia l virus (RSV) vaccine, adjuvanted (AREXVY) Ella Valdovinos PA-C Work Phone: [facility] 06-14-2023 RSV vaccine preF3, recombinant DR DEAN CALDWELL MD [facility] 05-27-2023 SARS-CoV-2 (COVID-19 ) [id number] DR DEAN CALDWELL MD [facility] 06-08-2022 SARS-CoV-2 (CV19)[id number] DEAN CALDWELL MD [facility] 05-23-2022 influenza, high-dose , quadrivalent vaccine (FLUZONE HIGH DOSE QUADRIVALENT) Mi Nurse Work Phone: [facility] Work Phone: 05-23-2022 influenza virus vacc ine, unspecified formulation Marj Mackey MD Work Phone: [facility] 02-23-2022 SARS-CoV-2 (COVID-19 ) [id number] DEAN CALDWELL MD [facility] Comment on above: Result Comment: 2023: BOOSTER #2 12-12-2021 pneumococcal polysaccharide vaccine, 23 valent Abby Pate MD Work Phone: [facility] 06-09-2021 influenza virus vacc ine, unspecified formulation DR DEAN CALDWELL MD [facility] 06-09-2021 influenza, high-dose , quadrivalent vaccine (FLUZONE HIGH DOSE QUADRIVALENT) Ella Valdovinos PA-C Work Phone: [facility] 06-01-2021 SARS-CoV-2 (COVID-19 ) [id number] DEAN CALDWELL MD [facility] 09-28-2020 COVID-19 vaccine, fu ll dose (MODERNA) Ella Valdovinos PA-C Work Phone: [facility] Work Phone: 08-31-2020 COVID-19 vaccine, fu ll dose (MODERNA) Ella HAAS-C Work Phone: [facility] Work Phone: 06-22-[address] DEAN CALDWELL MD [facility] 06-21-2020 zoster vaccine recombinant Ella Valdovinos PA-C Work Phone: [facility] 05-25-2020 influenza virus vacc ine, unspecified formulation DR DEAN CALDWELL MD [facility] 05-25-2020 influenza, high-dose , quadrivalent vaccine (FLUZONE HIGH DOSE QUADRIVALENT) Ella Valdovinos PA-C Work Phone: [facility] Work Phone: 04-26-2020 zoster vaccine recombinant Ella Valdovinos PA-C Work Phone: [facility] 06-09-2019 influenza virus vacc ine, unspecified formulation DR DEAN CALDWELL MD [facility] 05-14-2018 influenza virus vacc ine, unspecified formulation DR DEAN CALDWELL MD [facility] 12-03-2017 diphtheria, tetanus toxoids and acellular pertussis vaccine, unspecified formulation Ella Valdovinos PA-C Work Phone: [facility] 12-03-2017 tetanus toxoid, redu lorraine diphtheria toxoid, and acellular pertussis vaccine, adsorbed Ella Valdovinos PA-C Work Phone: [facility] 06-19-2017 influenza virus vacc ine, unspecified formulation DR DEAN CALDWELL MD [facility] 06-19-2017 influenza, injectabl e, quadrivalent, contains preservative Ella Valdovinos PA-C Work Phone: [facility] 05-25-2016 influenza virus vacc ine, unspecified formulation DR DEAN CALDWELL MD [facility] 05-25-2016 influenza, high dose seasonal, preservative-free Ella Valdovinos PA-C Work Phone: [facility] 12-27-2015 pneumococcal polysaccharide vaccine, 23 valent Ella Valdovinos PA-C Work Phone: [facility] 05-16-2015 influenza virus vacc ine, unspecified formulation Ella Valdovinos PA-C Work Phone: [facility] Work Phone: 12-22-2014 pneumococcal conjuga te vaccine, 13 valent Ella Valdovinos PA-C Work Phone: [facility] Work Phone: 10-22-2014 tetanus toxoid, redu lorraine diphtheria toxoid, and acellular pertussis vaccine, adsorbed Ella Valdovinos PA-C Work Phone: [facility] Work Phone: 10-18-2014 pneumococcal conjuga te vaccine, 13 valent Ella Valdovinos PA-C Work Phone: [facility] 05-12-2014 influenza virus vacc ine, unspecified formulation DR DEAN CALDWELL MD [facility] 05-12-2014 influenza, seasonal, injectable Ella Valdovinos PA-C Work Phone: [facility] 05-16-2013 influenza virus vacc ine, unspecified formulation Ella Valdovinos PA-C Work Phone: [facility] 05-24-2012 influenza virus vacc ine, unspecified formulation Ella Valdovinos PA-C Work Phone: [facility] 06-22-2011 influenza virus vacc ine, unspecified formulation Ella Valdovinos PA-C Work Phone: [facility] 05-25-2010 influenza virus vacc ine, unspecified formulation Ella Valdovinos PA-C Work Phone: [facility] Work Phone: 05-24-2009 influenza virus vacc ine, unspecified formulation Ella Valdovinos PA-C Work Phone: [facility] Work Phone: 05-24-2009 zoster vaccine, live Elladu Valdovinos PA-C Work Phone: [facility] Work Phone: 06-10-2007 influenza virus vacc ine, unspecified formulation Ella Bonifacio PA-C Work Phone: [facility] [facility] 2006 pneumococcal polysaccharide vaccine, 23 valent Ellalalo Valdovinos PA-C Work Phone: [facility] Work Phone: 07-05-2005 influenza virus vacc ine, unspecified formulation Ella Bonifacio PA-C Work Phone: [facility] Work Phone: 06-30-2005 diphtheria and tetan us toxoids, adsorbed for pediatric use Elladu Valdovinos PA-C Work Phone: [facility] Work Phone: Payers Date Payer Category Payer Self-pay 2019 Medicare (Managed Care) [place] O [id number] 2019 Unknown [place] S AND BLUE SHIELD [facility]ARN[facility] [id number] 2019-Present [phone] [address] [place] [address] [facility] [id number] 2019 Unknown [id number] [id number]. [id number] 2019 Unknown [id number] 1940 Unknown [id number] 2.16.840.1.785812.3.579. 2.278 1941 Unknown [id number] 2.16.840.1.581963.3.579. 2.278 1941 Unknown [id number] 2.16.840.1.166327.3.579. 2.278 1941 Unknown [id number] 2.16.840.1.149066.3.579. 2.627 1941 Unknown [id number] 2.16.840.1.243492.3.579. 2.627 1940 Unknown [id number] 2.16.840.1.950681.3.579. 2.627 Unknown [id number] Unknown [id number] 2.16.840.1.694224.3.579. 2.462 Unknown [id number] 2.16.840.1.022325.3.579. 2.462 Unknown [id number] 2.16.840.1.001569.3.579. 2.462 Unknown [id number] 2.16.840.1.297631.3.579. 2.462 Unknown [id number] 2.16.840.1.864639.3.579. 2.462 Unknown [id number] 2.16.840.1.407329.3.579. 2.462 Unknown [id number] 2.16.840.1.869523.3.579. 2.462 Unknown [id number] 2.16.840.1.286773.3.579. 2.462 Unknown [id number] 2.16.840.1.636062.3.579. 2.462 Social History Date Type Detail Facility Start: 02-22-2011 End: 04-10-2025 Tobacco smoking status NHIS Never smoked tobacco [facility] Start: 08-14-2021 End: 04-08-2025 Alcohol intake Current drinker of alcohol (finding) [facility] Start: 08-14-2021 End: 09-11-2024 Alcohol intake [facility] Start: 06-03-2020 End: 06-19-2022 History SDOH Alcohol Frequency 3 [facility] Start: 12-10-2019 End: 06-03-2020 History SDOH Alcohol Std Drinks 98 [facility] Start: 06-03-2020 End: 06-19-2022 History SDOH Alcohol Binge 1 [facility] Start: 03-14-2020 End: 06-19-2022 History SDOH Social Connections Phone 4 [facility] Start: 03-14-2020 End: 06-19-2022 History SDOH Social Connections Get Together 2 [facility] Start: 03-14-2020 History SDOH Physica l Activity DPW 6 [facility] Start: 12-10-2019 End: 06-19-2022 History SDOH Physical Activity MPS 5 [facility] Start: 12-10-2019 Education 21 [facility] Start: 1940 Sex Assigned At Male C [facility] Work Phone: Start: 11-14-2021 End: 06-22-2022 Exposure to SARS-CoV-2 (event) Not sure [facility] Start: 02-22-2011 Tobacco use and exposure Smoke less tobacco non-user [facility] Work Phone: Start: 06-19-2022 End: 09-11-2024 Social connection and isolation panel [facility] Do you belong to any clubs or organizations such as rastafari groups, unions, fraternal or athletic groups, or school groups? No [facility] Are you now , , , , never or living with a partner? [facility] How often to you hav e a drink containing alcohol? 2-4 times a month [facility] How many standard dr inks containing alcohol do you have on a typical day? 1 or 2 [facility] How often do you hav e 6 or more drinks on 1 occasion? Never [facility] Start: 07-06-2012 How hard is it for y ou to pay for the very basics like food, housing, medical care, and heating Not hard at all [facility] Do you feel stress - tense, restless, nervous, or anxious, or unable to sleep at night because your mind is troubled all the time - these days [OSQ] Not at all [facility] (I/We) worried norbert er (my/our) food would run out before (I/we) got money to buy more. Never true [facility] Start: 10-10-2018 Gender identity Identifies as male gender (finding) [facility] Work Phone: Sex Assigned At [facility] Do you belong to any clubs or organizations such as rastafari groups, unions, fraternal or athletic groups, or school groups? Yes [facility] Start: 05-29-2016 Alcohol Alcohol [facility] Start: 05-29-2016 Lives Lives [facility] Start: 05-29-2016 Tobacco Use Tobacco Use [facility] How often to you hav e a drink containing alcohol? Monthly or less [facility] Medical Equipment Procedure Code Equipment Code Equipment Original Text Equipment Identifier Dates Jones Thk1.65mm P tfe 4x.5in Cardiovascular Sterile - [id number] Start: 10-29-2018 Valve Aort 27mm Crp-Ed Thfx - [id number] Start: 10-29-2018 Goals Date Patient Goal Desired Activity /State Personal health goal Functional Status Date Assessment Result Facility 04-08-2025 Functional status Chair [facility] Work Phone: 02-08-2025 Total score [AUDIT-C] 1 02/09/20 8:03 AM Mayra Garcia MA [facility] 01-19-2025 Functional status Activity Abili ty Independent [facility] Work Phone: 02-19-2024 Functional Status Mod I Gadiel Ramesh [place] 02-19-2024 Functional Status Single level home [facility] [place] 02-19-2024 Functional Status Front wheeled walker [facility] 02-19-2024 Functional [facility] Functional Status Identified as high risk, Fall ID band on, Room located near nursing station, Bed alert on, Door open, Bathroom light on, Non-Slip footwear, Room check performed [facility] 02-19-2024 Functional Status [place] [facility] 02-18-2024 [facility]24 [facility] 02-18-2024 Functional Status [facility] 02-18-2024 Functional Status Maintained [facility] 11-03-2018 Are you deaf, or do you have serious difficulty hearing No 11/03/2018 12:09 PM EDT Bekah GarzaRn)(Hist), RN [facility] 11-03-2018 Are you blind, or do you have serious difficulty seeing, even when wearing glasses No 11/03/2018 12:09 PM EDT Bekah GarzaRn)(Hist), RN [facility] 11-03-2018 Do you have serious difficulty walking or climbing stairs No 11/03/2018 12:09 PM EDT Bekah GarzaRn)(Hist), RN [facility] 11-03-2018 Do you have difficul ty dressing or bathing No 11/03/2018 12:09 PM EDT Bekah GarzaRn)(Hist), RN No [facility] 11-03-2018 Because of a physica l, mental, or emotional condition, do you have difficulty doing errands alone such as visiting a physician's office or shopping No 11/03/2018 12:09 PM EDT Bekah GarzaRn)(Hist), RN No [facility] Mental Status Date Assessment Result Facility 04-08-2025 Cognitive function Level Of Cons ciousness Awake;Alert;Appropriate;Fol lows Commands [facility] Work Phone: 04-08-2025 Cognitive function Voice/Name [facility] Work Phone: 01-19-2025 Cognitive function Voice/Name [facility] Work Phone: 02-19-2024 Mental Status Oriented x 4 [facility] 02-18-2024 Mental Status [facility] 02-18-2024 [facility] 11-03-2018 Because of a physica l, mental, or emotional condition, do you have serious difficulty concentrating, remembering, or making decisions No 11/03/2018 12:09 PM EDT Bekah Garza (Rn)(Hist), RN No [facility] Clinical Notes 10-03-2018 to 04-10-2025 Mayra Valencia MA - 04/08/2025 11:45 AM EDT Note Date & Type Note Facility 04-10-[address] [facility] 04-08-[address] [facility] 04-08-[address] [facility] 04-08-2025 Note HNO ID: [id number] Author: MAYRA VALENCIA MA Service: ? Author Type: Sales Utility Representative Type: Progress Notes Filed: 04/08/2025 11:46 Note Text: Scan on 04/08/2025 7:41 AM by ProviderKaren PA-C: Dr. Jara discharge summary [facility] 04-08-2025 History of Presen t illness Narrative Scan on 04/08/2025 7:41 AM by ProviderKaren PA-C: Dr. Jara discharge summary documented in this encounter [facility] 04-08-2025 Discharge summary Note Date/Time April 08, 2025 7:31am [facility] Medical Records Department [address] [place] [address] Discharge Summary 04/08/25 0730 MR#: [id number] Acct: [id number] Name: SONIYA COOLEY Rep #:[id number] : 1940 84 From: Andi Jara MD PCP: Dr. Oniel Francis MD Status:ADM DARI Location: MS3 [id number] Providers Date of Admission: 04/07/25 Date of Discharge: 04/08/25 Primary Care Physician: Dr. Oniel Francis MD Reason For Visit: TURP Medications at Discharge Home Medications lvwzwmgy-xlr-cgmtz acid 0.4 mg-lycopene 300 mcg-lutein 250 mcg [...] Up With: Andi Jara MD When: Call [phone] for an appointment Meaningful Use Info Meaningful [...] 25 mcg tablet 25 mcg PO DAILY xryfdogn-xel-OC-lycopen-lutein 1 EACH tablet 1 ea PO DAILY [...] Francis MD; Dr. Andi Jara MD~ Signed [facility] Work Phone: 1(287) 930-599009-04-2025 Discharge summary [facility] Medical Records Department [address] [place] [address] Discharge Summary 04/08/25 07 MR#: [id number] Acct: [id number] Name: SONIYA COOLEY Rep #:[id number] : 1940 84 From: Andi Jara MD PCP: Dr. Oniel Francis MD Status:ADM DARI Location: [place] [address] Providers Date of Admission: 04/07/25 Date of Discharge: 04/08/25 Primary Care Physician: Dr. Oniel Francis MD Reason For Visit: TURP Medications at Discharge Home Medications ucvsndhf-con-jcosr acid 0.4 mg-lycopene 300 mcg-lutein 250 mcg [...] Up With: Andi Jara MD When: Call [phone] for an appointment Meaningful Use Info Meaningful [...] 25 mcg tablet 25 mcg PO DAILY qfhgvdsv-cyu-ZK-lycopen-lutein 1 EACH tablet 1 ea PO DAILY [...] Instructions: Resume on 04/21/25. Patient Comments: heart [facility] clopidogrel [Plavix] 75 mg tablet 75 mg [...] Francis MD; Dr. Andi Jara MD~ Signed [facility]09-04-2025 [facility] Medical Records Department [address] [place] [address] Discharge Summary 04/08/25 0730 MR#: [id number] Acct: [id number] Name: SONIYA COOLEY Rep #: [id number] : 1940 84 From: Andi Jara MD PCP: Dr. Oniel Francis MD Status:ADM DARI Location: [place] [address] Providers Date of Admission: 04/07/25 Date of Discharge: 04/08/25 Primary Care Physician: Dr. Oniel Francis MD Reason For Visit: TURP Medications at Discharge Home Medications kghhscnw-sby-sjurn acid 0.4 mg-lycopene 300 mcg-lutein 250 mcg [...] capsule 0.8 mg PO QHS PER DR 01/19/25 clopidogrel 75 mg tablet (Plavix) 75 [...] Up With: Andi Jara MD When: Call [phone] for an appointment Meaningful Use Info Meaningful [...] 25 mcg tablet 25 mcg PO DAILY xklyojly-rif-VF-lycopen-lutein 1 EACH tablet 1 ea PO DAILY [...] By: Dr. Andi Jara 04/08/25 0731 Cosigner Signatur (more content not included)...[facility] 04-07-2025 Consult note Author Dario Pires [facility] Note Date/Time April 08, 2025 1:43pm [facility] Medical Records Department [address] [place] [address] Anesthesia Postop Eval II 04/07/25 1515 MR#: [id number] Acct: [id number] Name: SONIYA COOLEY Rep #:[id number] : 1940 84 From: Dario Pires MD PCP: Dr. Oniel Francis MD Status:ADM DARI Y Race: C Location: [address] Anesthesia Postop Eval I Sum Postop Eval Completion status Anesthesia document: Postop Eval 1 completed: Yes Anesthesia Postop Eval I Summary Anesthesia Postop Eval I Summary: Anesthesia Postop Eval I: Assessment Summary 3 Airway patent Yes 04/07/25 13:42 RETIREMENT SPECIALIST.TNES Spontaneous unlabored Yes 04/07/25 13:42 RETIREMENT SPECIALIST.TNES respirations Mental status nausea No 04/07/25 13:42 RETIREMENT SPECIALIST.TNES Vomiting No 04/07/25 13:42 RETIREMENT SPECIALIST.TNES Anesthesia Postop Eval I: Fluid Summary Crystalloid volume administer 1,000 04/07/25 13:42 RETIREMENT SPECIALIST.TNES (ml) Colloids volume administered ( ml) Blood Product volume administered (ml) Total IV fluid infused 1,000 04/07/25 13:42 RETIREMENT SPECIALIST.TNES Anesthesia Postop Eval I: Summary Notes Anesthesia Complication No 04/07/25 13:42 RETIREMENT SPECIALIST.TNES Anesthesia Complication Comment: Post-operative progress note Anesthesia: Postop Eval II Evaluation Mental status: Awake Pain Level: 0 nausea: No Vomiting: No Complications Anesthesia Complication: No 04/07/25 1515 <Electronically signed by Dario Pires MD> Date _ Dario Pires MD Cosigner Signature: Date CC: ~ Signed [facility] Work Phone: 1(551) 716-193109-03-2025 Consult note Author Fred Statonbitt [facility] Note Date/Time April 08, 2025 1:43pm [facility] Medical Records Department [address] [place] [address] Anesthesia Postop Eval I 04/07/25 1342 MR#: [id number] Acct: [id number] Name: SONIYA COOLEY Rep #:[id number] : 1940 84 From: Fred TURNER PCP: Dr. Oniel Francis MD Status:[facility] [place] Race: C Location: [place] [address] Anesthesia: Postop Eval I Current Vital Signs [...] by Fred Hernandez CRNA> Date _ Fred Lewisigner Signature: Date CC: ~ Signed [facility] Work Phone: 1(585) 638-327109-03-2025 Discharge summary Author Andi Jara [facility] Note Date/Time April 07, 2025 1:34pm [facility] Medical Records Department [address] [place] [address] Instructions for Home/Discharge Instructions 04/07/25 1333 MR#: [id number] Acct: [id number] Name: SONIYA COOLEY Rep #:[id number] : 1940 84 From: Andi Jara MD PCP: Dr. Oniel Francis MD Status:REG [facility] Discharge Instructions DC O2, CPAP, BIPAP needs Home O2 Discharge instructions: No Dressing / Incision Discharge Activity: Return to Normal Activity and May Not Drive (while taking narcotic pain medications.) Dressing / Incision Call your doctor if you observe: Fever of 101 or Higher Follow Up Care Please Follow Up With: Andi Jara MD When: Call [phone] for an appointment Test Results: Test results from this visit will be discussed in further detail at your follow- up appointment, if applicable. Discharge Plan Admission Primary Reason for Your Visit: TURP AND BOTOX Attending Provider: Andi Jara Primary Care Provider: Oniel Francis Instructions Print Language: Algerian Discharge Orders/Prescriptions Prescriptions: Continued acetaminophen 500 mg tablet 1,000 mg PO TID PRN (Reason: fever or pain) fluticasone propionate [Allergy Relief (fluticasone)] 50 mcg/actuation spray,suspension 1 spray INTRANASAL DAILY PRN (Reason: nasal congestion) carbidopa-levodopa 25-100 mg tablet 2 tab PO TID levothyroxine 25 mcg tablet 25 mcg PO DAILY lybofcrz-fsg-RO-lycopen-lutein 1 EACH tablet 1 ea PO DAILY [...] Instructions: Resume on 04/21/25. Patient Comments: heart [facility] clopidogrel [Plavix] 75 mg tablet 75 mg [...] CC: Dr. Oniel Francis MD ~ Signed [facility] Work Phone: 1(297) 702-747209-03-2025 Procedure note [facility] Medical Records Department [address] [place] [address] Operative Report 04/07/25 1334 MR#: [id number] Acct: [id number] Name: SONIYA COOLEY Rep #:[id number] : 1940 84 From: Andi Jara MD PCP: Dr. 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 Post-Operative Diagnosis: Same Surgery/Procedure Performed: Cystoscopy injection of Botox in the bladder and transurethral sectionof prostate machine oiler: No Type of Anesthesia: General RN Documented Start/Stop Times: Operation Date: 04/07/25 12:00 Case Time Into Pre-Op 04/07/25 09:57 Anesthesia Start 04/07/25 12:40 Into Room 04/07/25 12:40 Out of Pre-Op 04/07/25 12:40 Procedure Start 04/07/25 13:00 Procedure End 04/07/25 13:28 Into Recovery Procedure Start Time: 13:00 Procedure Stop Time: 13:28 Select all DRAINS/GRAFTS/IMPLANTS that apply: Drains Drain details: 22 Ukrainian three-way Estimated Blood Loss: 10 cc Specimen [...] conditions again given Botox injection of the [id number] units discomfort on the bladder and will [...] went in the bladder with a 21 Ukrainian rigid cystourethroscope, 100 units of Botox prepared [...] a median loop and used a 24 Ukrainian 9 continuous-flow resectoscope identified the prostate identified [...] Francis MD; Dr. Andi Jara MD~ Signed [facility]09-03-2025 Discharge summary [facility] Medical Records Department [address] [place] [address] Instructions for Home/Discharge Instructions 04/07/25 1333 MR#: [id number] Acct: [id number] Name: SONIYA COOLEY Rep #:[id number] : 1940 84 From: Andi Jara [...] Up With: Andi Jara MD When: Call [phone] for an appointment Test Results: Test results from this visit will be discussed in further detail at your follow- up appointment, if applicable. Discharge Plan Admission Primary Reason for Your Visit: TURP AND BOTOX Attending Provider: Andi Jara Primary Care Provider: Oinel Francis Instructions Print Language: Algerian Discharge Orders/Prescriptions Prescriptions: Continued acetaminophen 500 mg tablet 1,000 mg PO TID PRN (Reason: fever or pain) fluticasone propionate [Allergy Relief (fluticasone)] 50 mcg/actuation spray,suspension 1 spray INTRANASAL DAILY PRN (Reason: nasal congestion) carbidopa-levodopa 25-100 mg tablet 2 tab PO TID levothyroxine 25 mcg tablet 25 mcg PO DAILY dfchfvax-jpu-FN-lycopen-lutein 1 EACH tablet 1 ea PO DAILY [...] Instructions: Resume on 04/21/25. Patient Comments: heart [facility] clopidogrel [Plavix] 75 mg tablet 75 mg PO DAILY Hold Instructions: Resume on 04/21/25. Patient Comments: Patient never started after TIA Referrals / Follow Up: Oniel Francis MD [Primary Care Provider] - Anid Jara MD [Med Staff - Active Staff] - Disposition Disposition (needs filled in before D/C Order can be placed): Home, Self Care 04/07/25 1334Andi Jara MD CC: Dr. Oniel Francis MD ~ Signed [facility]09-03-2025 Consult note Author [facility] Note Date/Time April 07, 2025 11:18am [facility] Medical Records Department [address] [place] [address] Pre-Anesthesia Evaluation 04/07/25 1112 MR#: [id number] Acct: [id number] Name: SONIYA COOLEY Rep #:[id number] : 1940 84 From: Dario Pires MD PCP: Dr. Oniel Francis MD Status:REG [facility] Y Race: C Location: [place] [address] ASA Classification* ASA Classification ASA Classification: 3 [...] of complications, including but not limited to TN, CVA, and due to his recent TIA [...] IN BLADDER Anesthesia History Anesthesia History - panel laminator: Anesthesia History - panel laminator Hx Hospitalization Yes 03/24/25 09:11 Any Problems [...] take am of surgery PONV PONV - panel laminator: PONV - panel laminator Female No 03/24/25 09:11 HX of Motion [...] 04/07/25 10:17 Respiratory Assessment Respiratory Assessment - panel laminator: Respiratory Tract Infection Hx - panel laminator Hx Respiratory Tract Infection No 03/24/25 09:11 STOP Sleep Apnea STOP Sleep Apnea - panel laminator: STOP Sleep Apnea - panel laminator Hx Hypertension Yes 03/24/25 09:11 Hx Sleep [...] Tobacco Use History Tobacco Use History - panel laminator: Tobacco Use History - panel laminator Tobacco Use Non-smoker 01/19/25 17:00 Smoking Status Never smoker 03/24/25 09:11 Hx Tobacco Use No 03/24/25 09:11 Years Smoking Packs Smoked per Day Smoking Cessation Date was within the last 15 years Hx Smoking Cessation Date Hx Smoking Cessation No 03/24/25 09:11 Counseling Hematologic Medial History Hematologic Hx - panel laminator: Hematologic Medical Hx - logistician Hx of Blood Transfusion No 03/24/25 09:11 [...] confused, unrespo /Reproduction History /Reproductive History - panel laminator: /Reproductive Hx- panel laminator Hx Now Gestational Age (in weeks): EDC: Hx Hx Para Hx Section SAB Active Medications Active Medications: Current Medications Generic Name Dose Route Start Last Admin Trade Name Rosa PRN Reason Stop Dose Admin Botulinum Toxin [...] artery disease 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 Work Phone: 1(523) 539-727409-03-2025 Consult note [facility] Medical Records Department [address] [place] [address] Pre-Anesthesia Evaluation 04/07/25 1112 MR#: [id number] Acct: [id number] Name: SONIYA COOLEY Rep #:[id number] : 1940 84 From: Dario Pires MD PCP: Dr. Oniel Francis MD Status:[facility] Y Race: C Location: [place] [address] ASA Classification* ASA Classification ASA Classification: 3 [...] of complications, including but not limited to TN, CVA, and due to his recent TIA [...] IN BLADDER Anesthesia History Anesthesia History - panel laminator: Anesthesia History - panel laminator Hx Hospitalization Yes 03/24/25 09:11 Any Problems [...] take am of surgery PONV PONV - panel laminator: PONV - panel laminator Female No 03/24/25 09:11 HX of Motion [...] 04/07/25 10:17 Respiratory Assessment Respiratory Assessment - panel laminator: Respiratory Tract Infection Hx - panel laminator Hx Respiratory Tract Infection No 03/24/25 09:11 STOP Sleep Apnea STOP Sleep Apnea - panel laminator: STOP Sleep Apnea - panel laminator Hx Hypertension Yes 03/24/25 09:11 Hx Sleep [...] Tobacco Use History Tobacco Use History - panel laminator: Tobacco Use History - panel laminator Tobacco Use Non-smoker 01/19/25 17:00 Smoking Status Never smoker 03/24/25 09:11 Hx Tobacco Use No 03/24/25 09:11 Years Smoking Packs Smoked per Day Smoking Cessation Date was within the last 15 years Hx Smoking Cessation Date Hx Smoking Cessation No 03/24/25 09:11 Counseling Hematologic Medial History Hematologic Hx - panel laminator: Hematologic Medical Hx - logistician Hx of Blood Transfusion No 03/24/25 09:11 Hx of Transfusion in last 3 No 03/24/25 09:11 Months Date of Last Transfusion (if within last 3 months) Ever experience any problems No 03/24/25 09:11 with transfusion(s)? Specify any problems Hx of Preganancy in last 3 N/A 03/24/25 09:11 Months Nurse Filling Out Transfusion [id number] 03/24/25 09:11 & Questions: Date: 03/24/25 03/24/25 09:11 Time: 09:03/24/25 09:11 Patient unable to answer at this time (ie. confused, unrespo /Reproduction History /Reproductive History - panel laminator: /Reproductive Hx- panel laminator Hx Now Gestational Age (in weeks): EDC: [...] artery disease Atherosclerosis of coronary artery of 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 angina pectoris Essential hypertension Contusion of finger without damage to nail Laceration of finger of left hand without foreign body without damage to nail Hemorrhoids Shortness of breath Neck pain on left side Tingling and numbness left fingers Home Medications ?Medication ?Instructions ?Recorded ?Last Taken ?Type vmgwjgik-zjs-vpfbi acid 0.4 1 ea PO DAILY SUPP [...] 03/24/25 Unknown History Held on 03/25/25. Instructions: Ordered nitroglycerin 0.4 mg sublingual 0.4 mg [...] MD Cosigner Signature: Date CC: ~ Signed [facility]08-20-2025 NoteHNO ID: [id number] Author: MAYRA VALENCIA MA Service: ? Author Type: Sales Utility Representative Type: Progress Notes Filed: 03/24/2025 14:13 Note Text: Scan on 03/24/2025 9:04 AM by Provider, External, PAArielleC: Procedure visit report, CystoCleland [facility] HospitalPxl[facility]aw[facility]03[facility]8989 History of Present illness Narrative* Mayra Valencia MA - 03/24/2025 2:12 PM EDT Scan on 03/24/2025 9:04 AM by Provider, LAUREN Jones: Procedure visit report, Cysto documented in [facility] encounterMer[facility] Telephone encounter Note * Telephone Encounter - Michelle Herring RN - 03/24/2025 9:55 AM EDT James from [facility] calls and is requesting lab results, last cardiology office visit note, and EKG results to be faxed to [phone]. Information faxed as requested. Michelle Herring RN [facility]08-20-2025 Miscellaneous Notes* Telephone Encounter - Michelle Herring RN - 03/24/2025 9:55 AM EDT James from [facility] calls and is requesting lab results, last cardiology office visit note, and EKG results to be faxed to [phone]. Information faxed as requested. Michelle Herring RN documented in this encounterMer[facility]07-25-2025 Telephone encounter Note * Telephone Encounter - Stacy Varghese RN - 02/26/2025 2:59 PM EDT Patient had urgent care visit this morning with Leti GILLand is calling to ask when the Paxlovid prescription is going to be sent to [facility]. He reports extremely runny nose and feels warm to touch but thermometer isn't working and is reading 94.3. Noted orders for Covid Testing. Don't seen any results back. Patient reports he was told he would have them back by now. Let him know I would pass the message along. Stacy Varghese RN [facility]07-25-2025 Miscellaneous Notes* Telephone Encounter - Stacy Varghese RN - 02/26/2025 2:59 PM EDT Patient had urgent care visit this morning with Leti GILLand is calling to ask when the Paxlovid prescription is going to be sent to [facility]. He reports extremely runny nose and feels warm to touch but thermometer isn't working and is reading 94.3. Noted orders for Covid Testing. Don't seen any results back. Patient reports he was told he would have them back by now. Let him know I would pass the message along. Stacy Varghese RN documented in this encounterMer[facility]07-25-2025 Note* Addendum Note - Ella Valdovinos PA-C - 02/26/2025 10:30 AM EDTAddended by: ELLA SANCHEZ on: 02/26/2025 10:30 AM Modules accepted: Orders [facility]07-25-2025 Miscellaneous Notes* Addendum Note - Ella Valdovinos [...] 26, 2025 8:38 AM documented in this encounterMercy Health [facility]07-25-2025 Telephone encounter Note * Telephone Encounter - Ella Valdovinos PA-C - 02/26/2025 10:29 AM EDT Patient requested flomax refill The following approved medication requests have been transmitted electronically. Requested Prescriptions Signed Prescriptions Disp Refills tamsulosin (FLOMAX) 0.4 mg 180 capsule 1 Sig: Take 2 capsules by mouth daily at bedtime. Authorizing Provider: ELLA VALDOVINOS PA-C [facility]07-25-2025 XtnxTNXA-UZV-2 (AGENT OF COVID-19) RNA: Detected INFLUENZA A RNA: Not detected INFLUENZA B RNA: Not detected RESPIRATORY SYNCYTIAL VIRUS (RSV) RNA: Not detectedMemorial HospitalComment on above:Performed By: #### [id number] ####[facility] LABCL[facility] [id number] REDWO[employer] LLCGalilea [place] [id number] [id number] Telephone encounter Note* Telephone Encounter - Keren [...] Sykes LPN February 26, 2025 8:38 AM [facility]07-25-2025 NoteHNO ID: [id number] Author: LETI RODRIGUEZ PA-C Service: ? Author Type: Physician Emergency Room Orderly Type: Progress Notes Filed: 02/26/2025 08:37 Note Text: [facility] Andrea Cooley is a 84 year old male. [...] problems: low Diagnostic procedures: low [facility] History of Present illness Narrative* Leti Rodriguez [...] low Diagnostic procedures: low Management options: low Leti Rodriguez PA-C documented in this encounterMercy Health [facility]07-24-2025 Telephone encounter Note * Telephone Encounter - Zoe Madrid RN - 02/25/2025 2:38 PM EDT Patient scheduled to see Dr. Mackey 03/01/25. Zoe Madrid RN [facility]07-24-2025 Miscellaneous Notes* Telephone Encounter - Zoe Madrid [...] will discuss further injections at appt tomorrow. Stacy Varghese RN * Telephone Encounter [...] halter monitor he wore after being in [facility] for TIA is showingruns of supraventricular tachycardia and that there were two short runs of V-tach. I want him to continue the plavix but would also like for him to see his analytic programmer Dr. Mackey for further eval. (I included Dr. Mackey to see if he can help facilitate an appt.) The 14 day halter was done through [facility] and will be scanned into chart. documented in this encounterMercy Health [facility]07-23-2025 Telephone encounter Note * Telephone Encounter - Kenney Gonzalez MD - 02/24/2025 11:00 AM EDT Reviewed. Will forward to PCP as FYI. [facility]07-23-2025 Telephone encounter Note* Telephone Encounter - Stacy [...] will discuss further injections at appt tomorrow. Stacy Varghese RN [facility]07-23-2025 Telephone encounter Note* Telephone Encounter - Monalisa Arreola RN - 02/24/2025 9:17 AM EDT Left vm for pt to return call to triage nurse, for provider message. 's mailbox is full [facility]07-23-2025 NoteHNO ID: [id number] Author: KEREN SYKES LPN Service: ? Author Type: LICENSED NURSE Type: Progress Notes Filed: 02/24/2025 08:02 Note Text: Scan on 02/23/2025 5:42 PM by Karen Escobar PA-C: Chemistry Scan on 02/24/2025 7:21 AM by Karen Escobar PA-C: [facility] History of Present illness Narrative* Keren Sykes LPN - 02/24/2025 7:19 AM EDT Scan on 02/23/2025 5:42 PM by Karen Escobar PA-C: Chemistry Scan on 02/24/2025 7:21 AM by Karen Escobar PA-C: Consultation - documented in this encounterMercy Health [facility]07-22-2025 Telephone encounter Note * Telephone Encounter - Kenney Gonzalez MD - 02/23/2025 2:52 PM EDT With their recent TIA I would be hesitant to stop their antiplatelet medications for at least 3 months. Are they able to do the injections while he is still taking Plavix? [facility]07-21-2025 Telephone encounter Note* Telephone Encounter - Roshni [...] Aranda RN February 22, 2025 12:48 PM [facility]07-18-2025 Telephone encounter Note* Telephone Encounter - Oniel Frnacis MD - 02/19/2025 5:40 PM EDT Let patient know that the halter monitor he wore after being in [facility] for TIA is showingruns of supraventricular tachycardia and that there were two short runs of V-tach. I want him to continue the plavix but would also like for him to see his analytic programmer Dr. Mackey for further eval. (I included Dr. Mackey to see if he can help facilitate an appt.) The 14 day halter was done through [facility] and will be scanned into chart. [facility]07-14-2025 Telephone encounter Note* Telephone Encounter - Melvina Cruz RN - 02/15/2025 10:46 AM EDT Last OV 09/11/2024 START 09/11/2024 F/U OV 03/24/2025 Route to TW for review. LIZETT Hackett, RN, CPN [facility]07-14-2025 Miscellaneous Notes* Telephone Encounter - Melvina Cruz RN - 02/15/2025 10:46 AM EDT Last OV 09/11/2024 START 09/11/2024 F/U OV 03/24/2025 Route to TW for review. LIZETT Hackett, RN, CPN documented in this encounterMercy Health – [facility]07-10-2025 Telephone encounter Note * Telephone Encounter - Heather Keenan MA - 02/11/2025 10:07 AM EDT Pt notified and voiced understanding. Heather Keenan MA [facility]07-10-2025 Miscellaneous Notes* Telephone Encounter - Heather Keenan [...] and UA were ok. documented in this encounterMercy Health – [facility]07-10-2025 Telephone encounter Note * Telephone Encounter - Heather Keenan MA - 02/11/2025 10:05 AM EDT ----- Message from Oniel Francis MD sent at 02/10/2025 9:11 PM EDT ----- ----- Message ----- From: Lab, Background User Sent: 02/08/2025 5:27 PM EDT To: Ella Valdovinos PA-C [facility]07-09-2025 Telephone encounter Note* Telephone Encounter - Oniel [...] his other labs and UA were ok. [facility]07-07-2025 Instructions* Patient Instructions* Oniel Francis MD - [...] sent a refill to your mail-order pharmacy, [facility]. - Continue taking baby aspirin daily, as [...] upcoming appointment with your eye doctor in [place] to address this. It is possible that [...] - Skin Checks: - Continue seeing your job trainer annually for skin checks. You recently had lesions removed. Follow-Up: - See your neurologist, Dr. Saunders, as soon as possible for clearance to drive and further evaluation of your TIA. - Attend your upcoming appointment with Dr. Fall (urologist) in the next day or two to address frequent urination. - Follow up with your eye doctor in [place] regarding your vision concerns. - Discuss your sleep issues with Dr. Damon during your March appointment. If you have any new or worsening symptoms, please contact our office. documented in this encounterMercy Health [facility]07-07-2025 History of Present illness Narrative* Oniel Francis [...] to remember the following three words: Banana, Ringo and Chair Visuospatial/Executive Functioning: Clock drawin/2 (Normal [...] and those as below. Patient recently in [facility] for TIA. Placed on plavix. Ordered event monitor. Patient has this on currently. Is taking the plavix. Les is currently wearing a Holter monitor and [...] He has an upcoming appointment with an claims specialist in [place]. He reports stable dyspnea, but denies hemoptysis, [...] skin lesions removed recently and sees a job trainer annually for skin checks. He denies unexplained [...] Rheumatic fever Seasonal allergies 12/17/[address] Dahs Skin cancer screening 02/08/2025 Seeing [facility] disorder 07/26/2015 Synovial cyst of right [...] Pt reports he was told by the analytic programmer that they almost lost him due to [...] (FLONASE) 50 mcg/actuation nasal spray Use 1 [place] in each nostril once daily. Rinse mouth [...] cataract surgery. Has appt with provider in [place] in the near future., NECK: Negative for [...] discharge. Scrotum normal to palpation. No hernia.. [facility] Maintenance List Medicare Advantage Annual Wellness Visit due on 08/05/2024 Influenza Vaccine(1) due on 04/05/2025 Covid-19 Vaccine(8 - 2024-25 season) due on 08/11/2025 LDL Cholesterol due [...] and plavix. 7. 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(I25.10) Stable on current [...] neurologist. - Continue Plavix; sent refill to [facility] pharmacy. 10. Parkinson's disease with dyskinesia and [...] Vit D, TSH and CBC prior. Oniel BARTH I spent a total of 40 minutes on the date of the service which included preparing to see the patient, ncey-uv-xaip patient care, completing clinical documentation, performing a medically appropriate examination, counseling and educating the patient/family/caregiver and ordering medications, tests, or procedures. Recording using [employer] software for draft documentation of the visit was discussed with the patient/authorized field sales representative; all questions welcomed and answered. Patient/authorized field sales representative agreed to proceed SENSITIVE EXAMINATION CONSENT: The sensitive examination was discussed with the Patient or Patient's Authorized Director Safety Council. Asapplicable, any other physician, advance practice provider, medical student, or other health professional student that will be observing or involved in the sensitive examination for educational or training purposes was discussed with the Patient or Authorized Director Safety Council. The Patient or Authorized Director Safety Council has agreed to proceed with the sensitive examination. documented in this encounterMercy Health [facility]07-07-2025 NoteHNO ID: [id number] Author: ONIEL FRANCIS MD Service: ? Author [...] to remember the following three words: Banana, Ringo and Chair Visuospatial/Executive Functioning: Clock drawin/2 (Normal [...] and those as below. Patient recently in [facility] for TIA. Placed on plavix. Ordered event monitor. Patient has this on currently. Is taking the plavix. Les is currently wearing a Holter monitor and [...] He has an upcoming appointment with an claims specialist in [place]. He reports stable dyspnea, but denies hemoptysis, [...] skin lesions removed recently and sees a job trainer annually for skin checks. He denies unexplained [...] directive discussed with pa (more content not included)...[facility] Medical Records Department [address] [place] [address] Discharge Summary 01/19/25 1812 MR#: [id number] Acct: [id number] Name: SONIYA COOLEY Rep #:[id number] : 1940 84 From: Leti Lu DO PCP: Dr. Oniel Francis MD Status:ADM DARI Location: [place] [address] Providers Date of Admission: 01/19/25 Date of Discharge: 01/19/25 Primary Care Physician: Dr. Oniel Francis MD Consultations 01/19/25 12:11 Neurology [Consult: Tele-Neurology] Routine Consulting Provider: [facility] Reason for Consult: ? TIA EMERGENT Consult: No Notified: Yes Date Notified: 01/19/25 Time Notified: [...] #5 hyperlipidemia Medications at Discharge Home Medications rsaoblhr-dpx-anjkw acid 0.4 mg-lycopene 300 mcg-lutein 250 mcg [...] was seen in the emergency room at [facility] after being brought in by his [...] [facility]. Patient had a CT of the [...] (Auto) 36.7 L, Lymph % (Auto) 48.3 H,[place] % (Auto) 10.0, Eos % (Auto) 4.3, [...] Clarity Clear, Urine pH 6.0, Ur Specific [place] 1.015, Urine Protein Negative, Urine Glucose (UA) [...] evidence for acute brain abnormality. Reading Location: [place] [address] Head/Neck CTA 01/19/25 04:03 IMPRESSION: Atherosclerosis without high-grade stenosis. Reading Location: [place] [address] Chest X-Ray 01/19/25 04:45 IMPRESSION: Mild bilateral basilar atelectatic pulmonary changes. Reading Location: [place] [address] Brain MRI 01/19/25 09:20 IMPRESSION: Sinus disease is visible in the floor of the right maxillary sinus. There is fluid signal in a portion of the right mastoid air cells, with mastoiditis. No acute intracranial abnormality is identified. Reading [facility] Echocardiogram 01/19/25 13:33 Interpretation Summary The left [...] Rosales; Xenia Fournier; Sulaiman Carrasquillo; Aleksandra Gonzales; Zoial Maciel; Audi Phillip; Adebayo Valdovinos; Dali Sanchez; [...] 25 mcg tablet 25 mcg PO DAILY hktrsnzf-fbf-LJ-lycopen-lutein 1 EACH tablet 1 ea PO DAILY [...] Recorder Preventi (Urgent) Timeframe: 1 Day Facility: [facility] - Location: Cardiovascular Services Ordered By: Dr. Leti Lu Referrals / Follow Up: Oniel Francis MD [Primary Care Provider] - See Referral Note (At next appointment time) Disposition Disposition (needs filled in before D/C Order can be placed): Home, Self Care Charges/Coding Visit Charges Inpatient E&M: 97129 Disch Hosp >30min 01/19/251816 Cosigner Signature (if applicable): CC: Dr. Oniel Francis MD; Dr. Leti Lu DO~ Signed [facility]06-17-2025 Discharge summary [facility] Medical Records Department [address] [place] [address] Instructions for Home/Discharge Instructions 01/19/25 180 MR#: [id number] Acct: [id number] Name: SONIYA COOLEY Rep #:[id number] : 1940 84 From: Leti Lu [...] Valdovinos; Dali Sanchez; Ángel King; Dary Villalta; Harsha,Tia Instructions Additional Instructions / Restrictions: Follow-up as [...] 25 mcg tablet 25 mcg PO DAILY nwvzwlwi-yts-UK-lycopen-lutein 1 EACH tablet 1 ea PO DAILY Patient Comments: supplement cyanocobalamin (vitamin B-12) 500 mcg tablet, sublingual 1,000 mcg PO DAILY Patient Comments: supplement aspirin 81 mg tablet,chewable 81 mg PO DAILY Patient Comments: heart [facility] cholecalciferol (vitamin D3) 25 mcg (1,000 unit) [...] Recorder Preventi (Urgent) Timeframe: 1 Day Facility: [facility] - Location: Cardiovascular Services Ordered By: Dr. Leti Lu Referrals / Follow Up: Oniel Francis MD [Primary Care Provider] - See Referral Note (At next appointment time) Disposition Disposition (needs filled in before D/C Order can be placed): Home, Self Care 01/19/25 181Leti Lu DO CC: Kavita Glass; Aleksandra Gonzales; [...] Fournier DO; Tia Mcleod MD ~ Signed [facility]06-17-2025 [facility] Medical Records Department [address] [place] [address] Discharge Summary 01/19/251811 MR#: [id number] Acct: [id number] Name: SONIYA COOLEY Rep #: [id number] : 1940 84 From: Leti Lu DO PCP: Dr. Oniel Francis MD Status:DIS DARI Location: [place] [address] Providers Date of Admission: 01/19/25 Date of [...] #5 hyperlipidemia Medications at Discharge Home Medications odhppkfh-lmv-uomfj acid 0.4 mg-lycopene 300 mcg-lutein 250 mcg [...] was seen in the emergency room at [facility] after being brought in by his [...] grossly intact, no focal (more content not included)...[facility] 01-19-2025 Consult note Author Sulaiman Carrasquillo [facility] Note Date/Time January 19, 2025 1:29 pm [facility] Medical Records Department [address] [place] [address] Consultation - Neurology 01/19/25 1324 MR#: [id number] Acct: [id number] Name: SONIYA COOLEY Rep #:[id number] : 1940 84 From: Sulaiman Carrasquillo MD PCP: Dr. Oniel Francis MD Status:ADM DARI Location: [place] [address]- Assessment and Plan: Stroke Assessment/Plan Mr Cooley presents with acute onset dysarthria and bilateral lower extremity weakness concerning for a Transient Ischemic Attack (TIA). While he did miss a dose of sinemet that evening, he has never had such pronounced dysarthria with previous missed doses so less likely symptoms d/t PD. Obtain lipid panel and hemoglobin A1c. Recommend TTE and 30 day monitor and storage bin tender after discharge. PT/OT eval. Load with clopidogrel [...] before with prior missed doses. MRI/CTA neg. [facility] Medical History (Updated 01/19/25 @ 08:[address] 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 Essential hypertension Contusion of finger without damage to nail Laceration of finger of left hand without foreign body without damage to nail Hemorrhoids Shortness of breath Neck pain on left side Tingling and numbness left fingers Home Medications ?Medication ?Instructions ?Recorded ?Last Taken ?Type soxfjxhu-zhv-mxwwt acid 0.4 1 ea PO DAILY 05/28/16 [...] Results Procedure Details EEG Procedure Details: SONIYA L CHENEVEY is a 84 year old M with [...] (Auto) 36.7 L, Lymph % (Auto) 48.3 H,[place] % (Auto) 10.0, Eos % (Auto) 4.3, [...] Clarity Clear, Urine pH 6.0, Ur Specific [place] 1.015, Urine Protein Negative, Urine Glucose (UA) [...] evidence for acute brain abnormality. [facility] Head/Neck CTA 01/19/25 04:03 IMPRESSION: Atherosclerosis without high-grade stenosis. Reading Location: [facility] Chest X-Ray 01/19/25 04:45 IMPRESSION: Mild bilateral basilar atelectatic pulmonary changes. Reading Location: [facility] Brain MRI 01/19/25 09:20 IMPRESSION: Sinus disease is visible in the floor of the right maxillary sinus. There is fluid signal in a portion of the right mastoid air cells, with mastoiditis. No acute intracranial abnormality is identified. Reading [facility] Active Medications Active Medications Active Medications: Current [...] mls @ 15 mls/hr 01/19/25 07:44 IV .[id number] PRN Saline Flush Sodium Chloride 250 mls @ 15 mls/hr 01/19/25 07:44 IV .[id number] PRN Additional IVPB Infusion Levothyroxine Sodium 25 [...] Tamsulosin Hcl 0.4 Mg Capsule PO QHS [facility] NIHSS NIHSS Nursing Documentation NIHSS Nursing Documentation: NIHSS: Ischemic Stroke/TIA Start: 01/19/25 07:29 Text: For PCU Patients: NIH and Neuro Check every 4 Status: Active hours, PRN and with change in RN caregiver. Freq: [id number] Protocol: Activity Type Activity Date Activity User [...] applicable): CC: Dr. Oniel Francis MD~ Signed [facility] Work Phone: [phone]) 317-418606-17-2025 Hospital Discharge instructions Additional Instructions Follow-up as scheduled with your neurologist Date of Discharge: 01/19/25[facility] Work Phone: 1(772) 466-322906-17-2025 Consult note [facility] Medical Records Department [address] [place] [address] Consultation - Neurology 01/19/25 1324 MR#: [id number] Acct: [id number] Name: SONIYA COOLEY Rep #:[id number] : 1940 84 From: Sulaiman Carrasquillo MD PCP: Dr. Oniel Francis MD Status:ADM DARI Location: [place] [address] Assessment and Plan: Stroke Assessment/Plan Mr Cooley presents with acute onset dysarthria and bilateral lower extremity weakness concerning for a Transient Ischemic Attack (TIA). While he did miss a dose of sinemet that evening, he has never had such pronounced dysarthria with previous missed doses so less likely symptoms d/t PD. Obtain lipid panel and hemoglobin A1c. Recommend TTE and 30 day monitor and storage bin tender after discharge. PT/OT eval.Load with clopidogrel 300mg [...] before with prior missed doses. MRI/CTA neg. 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 Reading Location: [place] [address] Head/Neck CTA 01/19/25 04:03 IMPRESSION: Atherosclerosis without high-grade stenosis. Reading Location: [place] [address] Chest X-Ray 01/19/25 04:45 IMPRESSION: Mild bilateral basilar atelectatic pulmonary changes. Reading Location: [place] [address] Brain MRI 01/19/25 09:20 IMPRESSION: Sinus disease is visible in the floor of the right maxillary sinus. There is fluid signal in a portion of the right mastoid air cells, with mastoiditis. No acute intracranial abnormality is identified. Reading [facility] Active Medications Active Medications Active Medications: Current [...] mls @ 15 mls/hr 01/19/25 07:44 IV .[id number] PRN Saline Flush Sodium Chloride 250 mls @ 15 mls/hr 01/19/25 07:44 IV .[id number] PRN Additional IVPB Infusion Levothyroxine Sodium 25 mcg 01/20/25 06:00 Levothyroxine 25 Mcg Tablet PO DAILY@0600 [facility] Propranolol HCl 80 mg 01/19/25 10:00 01/19/25 10:37 Propranolol [place] 80 Mg Capsule PO 80 mg Q24 PEPITO Administration Protocol Sodium Chloride 10 - 40 ml 01/19/25 07:44 0.9% Saline Lock 10 Ml Syringe IV UD PRN SALINE FLUSH Tamsulosin HCl 0.8 mg 01/19/25 22:00 Tamsulosin Hcl 0.4 Mg Capsule PO QHS [facility] NIHSS NIHSS Nursing Documentation NIHSS Nursing Documentation: NIHSS: Ischemic Stroke/TIA Start: 01/19/25 07:29 Text: For PCU Patients: NIH and Neuro Check every 4 Status: Active hours, PRN and with change in RN caregiver. Freq: [id number] Protocol: Activity Type Activity Date Activity User [...] applicable): CC: Dr. Oniel Francis MD~ Signed [facility]06-17-2025 Discharge summary Author [facility] Note Date/Time January 19, 2025 8:06 am [facility] Medical Records Department [address] [place] [address] Emergency Department Summary 01/19/25 MR#: [id number] Acct: [id number] Name: SONIYA COOLEY Rep #:[id number] : 1940 84 From: Tate Mcdonough DO PCP: Dr. Oniel Francis MD Status:ADM DARI Location: [place] [address] HPI History of Present Illness Chief Complaint: [...] stroke he was brought in for evaluation. 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 As the [...] 36.7 L Lymph % (Auto) 48.3 H [place] % (Auto) 10.0 Eos % (Auto) 4.3 [...] Clarity Clear Urine pH 6.0 Ur Specific [place] 1.015 Urine Protein Negative Urine Glucose (UA) [...] evidence for acute brain abnormality. Reading Location: [place] [address] Head/Neck CTA 01/19/25 04:03 IMPRESSION: Atherosclerosis without high-grade stenosis. [facility] Chest X-Ray 01/19/25 04:45 IMPRESSION: Mild bilateral basilar atelectatic pulmonary changes. Reading Location: [place] [address] Chest x-ray as interpreted by the emergency medicine physician reveals bibasilaratelectasis without acute infiltrate or pneumothorax Management Discussion w/another healthcare provider: Hospitalist and Physical Therapist Aide Discharge Plan Dx/Rx/DC Orders Clinical Impression: Stroke-like symptoms, Essential hypertension, Hyperlipidemia, Parkinson's disease Disposition Disposition: Acute Care Hospital [facility] Discharge Date/Time: 01/19/25 07:02 What to do if you have Problems For any increased pain, shortness of breath, bleeding, nausea or vomiting, chestpain, or any unexpected problems, contact your Primary Care Provider. Call [facility] ([phone]) or report to the closest Emergency Room. Call 911 if necessary. 01/19/25 0806 <Electronically signed by Tate Mcdonough DO> Cosigner Signature (if applicable): CC: Dr. Oniel Francis MD ~ Signed [facility] Work Phone: 1(857) 871-751906-17-2025 Evaluation note* Diagnosis Onset Date Resolution Status Admit Date Parkinson's disease acute January 19, 2025 6:07am Stroke-like symptoms acute January 19, 2025 6:07am Essential hypertension chronic Ju ne 2024 6:07am H/O aortic valve replacement October, chroni c January 19, 2025 6:07am Hyperlipidemia chronic January 19, 2025 6:07am H/O coronary artery bypass surgery October, resolved January 19, 2025 6:07am [facility] Work Phone: [phone]) 540-643706-17-2025 History and physical note Author Mik Kilgore [facility] Note Date/Time January 19, 2025 6:07 am [facility] Medical Records Department [address] [place] [address] History & Physical Exam 01/19/25 0558 MR#: [id number] Acct: [id number] Name: SONIYA COOLEY Rep #:[id number] : 1940 84 From: Mik Kilgore [...] or chills and/or nausea vomiting or diarrhea. 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 [facility] Head/Neck CTA 01/19/25 04:03 IMPRESSION: Atherosclerosis without high-grade stenosis. Reading Location: [place] [address] Chest X-Ray 01/19/25 04:45 IMPRESSION: Mild bilateral basilar atelectatic pulmonary changes. Reading Location: [place] [address] Assessment & Plan Assessment/Plan (1) H/O coronary [...] weight heparin Charges/Coding Visit Charges OBSV E&M: 10791 Observ/hosp same date L2 01/19/25 0607 <Electronically signed by Mik Kilgore MD> Cosigner Signature (if applicable): CC: Dr. Oniel Francis MD; Dr. Mik Kilgore MD~ Signed [facility] Work Phone: 1(846) 926-725706-17-2025 Discharge summary [facility] Medical Records Department [address] [place] [address] Emergency Department Summary 01/19/25 MR#: [id number] Acct: [id number] Name: SONIYA COOLEY Rep #:[id number] : 1940 84 From: Tate Mcdonough DO PCP: Dr. Oniel Francis MD Status:ADM DARI Location: [address] History of Present Illness Chief Complaint: Neuro [...] stroke he was brought in for evaluation. [facility] Medical History (Updated 01/19/25 @ 08:[address] 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 As the [...] 36.7 L Lymph % (Auto) 48.3 H [place] % (Auto) 10.0 Eos % (Auto) 4.3 [...] Clarity Clear Urine pH 6.0 Ur Specific [place] 1.015 Urine Protein Negative Urine Glucose (UA) [...] evidence for acute brain abnormality. Reading Location: [place] [address] Head/Neck CTA 01/19/25 04:03 IMPRESSION: Atherosclerosis without high-grade stenosis. Reading Location: [place] [address] Chest X-Ray 01/19/25 04:45 IMPRESSION: Mild bilateral basilar atelectatic pulmonary changes. Reading Location: [place] [address] Chest x-ray as interpreted by the emergency medicine physician reveals bibasilaratelectasis withoutacute infiltrate or pneumothorax Management Discussion w/another healthcare provider: Hospitalist and Physical Therapist Aide Discharge Plan Dx/Rx/DC Orders Clinical Impression: Stroke-like symptoms, Essential hypertension, Hyperlipidemia, Parkinson's disease Disposition Disposition: Acute Care Hospital [facility] Discharge Date/Time: 01/19/25 07:02 What to do if you have Problems For any increased pain, shortness of breath, bleeding, nausea or vomiting, chestpain, or any unexpected problems, contact your Primary Care Provider. Call [facility] ([phone]) or report tothe closest Emergency Room. Call 911 if necessary. 01/19/25 0806 Cosigner Signature (if applicable): CC: Dr. Oniel Francis MD ~ Signed [facility]06-17-2025 History and physical note [facility] Medical Records Department [address] [place] [address] History & Physical Exam 01/19/25 0558 MR#: [id number] Acct: [id number] Name: SONIYA COOLEY Rep #:[id number] : 1940 84 From: Mik Kilgore [...] or chills and/or nausea vomiting or diarrhea. 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 Reading Location: [place] [address] Head/Neck CTA 01/19/25 04:03 IMPRESSION: Atherosclerosis without high-grade stenosis. [facility] Chest X-Ray 01/19/25 04:45 IMPRESSION: Mild bilateral basilar atelectatic pulmonary changes. Reading Location: [place] [address] Assessment & Plan Assessment/Plan (1) H/O coronary [...] weight heparin Charges/Coding Visit Charges OBSV E&M: 50598 Observ/hosp same date L2 01/19/25 0607 Cosigner Signature (if applicable): CC: Dr. Oniel Francis MD; Dr. Mik Kilgore MD~ Signed [facility]06-17-2025 [facility] Medical Records Department [address] [place] [address] History Physical Exam 01/19/25 0558 MR#: [id number] Acct: [id number] Name: SONIYA COOLEY Rep #: [id number] : 1940 84 From: Mik Kilgore MD [...] or chills and/or nausea vomiting or diarrhea. [facility] Medical History (Updated 01/19/25 @ 05:[address] 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06-17-2025 Radiology Diagnostic study note [facility] [address] [place], [place] [address] STROKE CTA Head AND Neck W/Con MR#: [id number] Acct: [id number] Name: SONIYA COOLEY Rep #: [id number] : 1940 M 84 From: Olvin Watters MD PCP: Dr. Oniel Francis MD Status: REG ER Study:STROKE CTA Head AND Neck W/Con Date of Exam: 01/19/25 Exam# [id number] Ordering Dr: Marjan Mcdonough DO PROCEDURE: STROKE [...] There is no demonstrated aneurysm of the [place]. There is no major vessel [...] IMPRESSION: Atherosclerosis without high-grade stenosis. Reading Location: [place] [address] CC: Dr. Oniel Francis MD; Tate Mcdonough DO ~ Finance Business Partner: Signed [facility]06-17-2025 Radiology Diagnostic study note [facility] [address] [place] [address] Chest 1 View MR#: [id number] Acct: [id number] Name: SONIYA COOLEY Rep #: [id number] : 1940 M 84 From: Olvin Watters MD PCP: Dr. Oniel Francis MD Status: [facility] ER Study:Chest 1 View Date of Exam: 5 Exam# [id number] Ordering Dr: Marjan Mcdonough DO PROCEDURE: CHEST [...] bilateral basilar atelectatic pulmonary changes. Reading Location: [place] [address] CC: Dr. Oniel Francis MD; Tate Mcdonough DO ~ Finance Business Partner: Signed [facility]06-17-2025 Radiology Diagnostic study note [facility] [address] [place], [place] [address] STROKE Brain/Head without Cont MR#: [id number] Acct: [id number] Name: SONIYA COOLEY Rep #: [id number] : 1940 M 84 From: Olvin Wattres MD PCP: Dr. Oniel Francis MD Status: REG ER Study:STROKE Brain/Head without Cont Date of Exam: 01/19/25 Exam# [id number] Ordering Dr: Marjan Mcdonough DO PROCEDURE: STROKE [...] evidence for acute brain abnormality. Reading Location: [place] [address] CC: Dr. Oniel Francis MD; Tate Mcdonough DO ~ Finance Business Partner: Signed [facility]04-30-2025 NoteHNO ID: [id number] Author: PRUDENCIO BARLOW MA Service: ? Author Type: Sales Utility Representative Type: Progress Notes Filed: 12/02/2024 08:06 Note Text: Scan on 11/20/2024 4:11 PM by Provider, External, PA-C: Consultation - Anesthesia/Pain Prudencio Barlow [facility]04-30-2025 History of Present illness Narrative* Prudencio Barlow MA - 12/02/2024 8:05 AM EDT Scan on 11/20/2024 4:11 PM by Provider, LAUREN Jones: Consultation - Anesthesia/Pain Prudencio Barlow MA [facility] Telephone encounter Note * Telephone Encounter - [...] Elizabet Heredia November 02, 2024 1:57 PM [facility]03-31-2025 Miscellaneous Notes* Telephone Encounter - Elizabet Heredia [...] 1 tablet by mouth once daily. Elizabet Yan November 02, 2024 1:57 PM documented in this encounterMer[facility]-19-2025 Telephone encounter Note * Telephone Encounter - Moni Encarnacion MA - 09/23/2024 1:38 PM EST Called and spoke with patient. He expressed understanding. [facility]02-19-2025 Miscellaneous Notes* Telephone Encounter - Moni Encarnacion MA - 09/23/2024 1:38 PM EST Called and spoke with patient. He expressed understanding. * Telephone Encounter - Precious Caballero RN - 09/21/2024 12:12 PM EST Called patient at [phone]. Left message on voicemail for patient to return call. * Telephone Encounter - Moni Encarnacion MA - 09/18/2024 2:06 PM EST Images from the original note were not included. Abby Pate MD [facility] Can you let patient know his analytic programmer was OK with me switching metoprolol to propranolol, so I sent in for 80 mg propranolol once a day - he can just change one day to the next from metoprolol tothis new propanolol dose. Depending on response we could increase propranolol in the future. Thanks documented in this encounterMer[facility]02-17-2025 Telephone encounter Note * Telephone Encounter - Precious Caballero, NORA - 09/21/2024 12:12 PM EST Called patient at [phone]. Left message on voicemail for patient to return call. [facility]02-14-2025 Telephone encounter Note* Telephone Encounter - Moni Encarnacion MA - 09/18/2024 2:06 PM EST Images from the original note were not included. Abby Pate MD [facility] Can you let patient know his analytic programmer was OK with me switching metoprolol to propranolol, so I sent in for 80 mg propranolol once a day - he can just change one day to the next from metoprolol tothis new propanolol dose. Depending on response we could increase propranolol in the future. Thanks [facility]02-14-2025 Telephone encounter Note* Telephone Encounter - Hemalatha Oneil LPN - 09/18/2024 2:00 PM EST Message with results sent to patient in Click With Me Now message. Hemalatha Oneil LPN [facility]02-14-2025 Miscellaneous Notes* Telephone Encounter - Hemalatha Oneil LPN - 09/18/2024 2:00 PM EST Message with results sent to patient in Click With Me Now message. Hemalatha Oneil LPN * Telephone Encounter - Hemalatha Oneil LPN - 09/18/2024 1:59 PM EST Images from the original note were not included. Marj Mackey MD routed this conversation to [facility] Marj Mackey MD to Omero Cooley 09/18/24 1:54 PM Hey Les Your echocardiogram looks good and the valve continues to function well Lewis Mackey This [employer] message has not been read. documented in this encounterMer[facility]02-14-2025 Telephone encounter Note * Telephone Encounter - Hemalatha Oneil LPN - 09/18/2024 1:59 PM EST Images from the original note were not included. Marj Mackey MD routed this conversation to [facility] Marj Mackey MD to Omero Cooley 09/18/24 1:54 PM Hey Les Your echocardiogram looks good and the valve continues to function well Lewis Mackey This [employer] message has not been read. [facility]02-07-2025 Instructions* Patient Instructions* Abby Pate MD - [...] for sleepiness with it. documented in this encounterMer[facility]02-07-2025 NoteHNO ID: [id number] Author: ABBY PATE MD Service: ? Author [...] (FLONASE) 50 mcg/actuation nasal spray Use 1 [place] in each nostril once daily. Rinse mouth [...] DATA REVIEW Actual films (more content not included)...[facility] History of Present illness Narrative* Abby [...] (FLONASE) 50 mcg/actuation nasal spray Use 1 [place] in each nostril once daily. Rinse mouth [...] heart history, will touch base with his analytic programmer if metoprolol could be changed to propranolol [...] Discussed with Patient: YES Abby Pate MD [facility] Neurology documented in this encounterMer[facility]01-27-2025 History of Present illness Narrative* Marj Mackey MD - 08/31/2024 3:40 PM EST Images from the original note were not included. [facility] SECTION OF REGIONAL CARDIOLOGY Cardiology ([facility]) [address] [facility] [address] OUTPATIENT VISIT DATE 08/31/2024 PRIMARY CARE PHYSICIAN: Oniel Francis [address] [place] [address] HISTORY OF PRESENT ILLNESS: Mr. Cooley is [...] (erin) Sister Cancer Brother prostate cancer other ([place]) Brother Hyperlipidemia Child Hyperlipidemia Child ALLERGIES: ALLERGIES Allergen Reactions Iodine Other: See Comments ?decreased BP with iodinated contrast during a cardiac cath. Pt reports he was told by the analytic programmer that they almost lost him due to [...] fluticasone (FLONASE) 50 mcg/actuation nasal spray^Use 1 [place] in each nostril once daily. Rinse mouth [...] S1, S2 with regular rate and rhythm. [place] aortic valve sounds noted. CARDIOVASCULAR MEDICINE TESTING: [...] 0.85 which was hemodynamically significant. Impressions: Severe cantwell multivessel CAD Patent Bypass grafts Echocardiogram [facility] 01/08/2020 Normal LV size, mild concentric [...] AND RECOMMENDATIONS: 1. 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- ICD9: 414.01, ICD10: [...] BNP Marj Mackey MD documented in this encounterMer[facility]01-27-2025 NoteHNO ID: [id number] Author: MARJ MACKEY MD Service: ? Author Type: Physician Type: Progress Notes Filed: 08/31/2024 16:39 Note Text: [facility] SE[facility] REGIONAL CARDIOLOGY Cardiology ([facility]) [address] [facility] [address] OUTPATIENT VISIT DATE 08/31/2024 PRIMARY CARE PHYSICIAN: Oniel Francis [address] [place] [address] HISTORY OF PRESENT ILLNESS: Mr. Cooley is [...] 10/29/2018 Aortic valve rep (more content not included)...[facility] Telephone encounter Note* Telephone Encounter [...] Martini LPN August 03, 2024 7:25 AM [facility]12-30-2024 Miscellaneous Notes* Telephone Encounter - Анна Martini [...] 03, 2024 7:25 AM documented in this encounterMer[facility]12-06-2024 Telephone encounter Note * Telephone Encounter - Oniel Francis MD - 07/10/2024 5:16 PM EST The following approved medication requests have been transmitted electronically. Requested Prescriptions Signed Prescriptions Disp Refills levothyroxine (SYNTHROID) 25 mcg tablet 90 tablet 1 Sig: Take 1 tablet by mouth once daily. Take on empty stomach. For thyroid. Authorizing Provider: ONIEL FRANCIS MD [facility]12-06-2024 Miscellaneous Notes* Telephone Encounter - Oniel Francis [...] Thank you. Daly Art. documented in this encounterMer[facility]12-06-2024 Telephone encounter Note * Telephone Encounter - [...] Barlow MA July 10, 2024 4:54 PM [facility]12-06-2024 Miscellaneous Notes* Telephone Encounter - Prudencio Barlow [...] 10, 2024 4:54 PM documented in this encounterMer[facility]12-06-2024 Telephone encounter Note * Telephone Encounter - Prudencio Barlow MA - 07/10/2024 4:51 PM EST Sent message to [facility] for other medication refill. Prescription Refill Information [...] July 10, 2024 4:52 PM [facility]12-06-2024 Telephone encounter Note* Telephone Encounter - [...] 02/08/2025 Please advise. Thank you. Daly Art. [facility]10-07-2024 Telephone encounter Note* Telephone Encounter - Mayra Breaux LPN - 05/11/2024 2:17 PM EDT Patient returned call and went over results, notes from Zina Duran EMBEDDED SOFTWARE ENGINEER with understanding. Patient said he has appt on Saturday with Dr Caldwell at [facility] and requesting a copy of report befaxed. Printed and faxed to [phone] as requested. [facility]10-07-2024 Miscellaneous Notes* Telephone Encounter - Mayra Breaux LPN - 05/11/2024 2:17 PM EDT Patient returned call and went over results, notes from Zina Duran EMBEDDED SOFTWARE ENGINEER with understanding. Patient said [facility] and requesting a copy of report befaxed. Printed and faxed to [phone] as requested. * Telephone Encounter - Autumn Mares MA - 05/11/2024 1:07 PM EDT Left message for patient to return call to office Autumn Mares MA * Telephone Encounter - Zina Duran APRN.CNP - 05/11/2024 1:02 PM EDT Please let patient know refills sent. Also Us results from [facility] negative for DVT ;however does show [...] their labs are WNL documented in this encounterMercy [facility]10-07-2024 Telephone encounter Note * Telephone Encounter - Autumn Mares MA - 05/11/2024 1:07 PM EDT Left message for patient to return call to office Autumn Mares MA [facility]10-07-2024 Telephone encounter Note* Telephone Encounter - Zina Duran APRN.CNP - 05/11/2024 1:02 PM EDT Please let patient know refills sent. Also Us results from [facility] negative for DVT ;however does show a likely popliteal cyst which could be causing pain. Recommend follow up with ortho. [facility] Telephone encounter Note* Telephone Encounter - Olive Raphael OCCA - 05/11/2024 11:01 AM EDT TC to patients , listed in chart to receive medical information, who verbalized understanding of below. asking that refills of atorvastatin and metoprolol be sent to pharmacy. Pended as suchif provider agreeable. ROLAN 05/07/2024 NOV 02/08/2025 [facility]10-04-2024 Telephone encounter Note* Telephone Encounter - Zina Duran APRN.CNP - 05/08/2024 11:49 AM EDT Please let patient know their labs are WNL [facility]10-04-2024 Telephone encounter Note* Telephone Encounter - Mayra Breaux LPN - 05/08/2024 9:59 AM EDT Patient Elizabet calling having problem scheduling ultrasound for his legs at [facility]. She was told office has to call to schedule. This nurse called and spoke to scheduling Rosalia and scheduled STAT ultrasound of his legs today at 1 pm patient to be there at 1245 pm. Phoned patient back and gave instructions, told may want to be earlier since construction is going on at [facility] area. Phoned home health scheduler and cancelled appt for [place] for this afternoon. [facility] [facility] Miscellaneous Notes* Telephone Encounter - Mayra Breaux LPN - 05/08/2024 9:59 AM EDT Patient Elizabet calling having problem scheduling ultrasound for his legs at [facility]. She was told office has to call to schedule. This nurse called and spoke to scheduling Rosalia and scheduled STAT ultrasound of his legs today at 1 pm patient to be there at 1245 pm. Phoned patient back and gave instructions, told may want to be earlier since construction is going on at [facility] area. Phoned home health scheduler and cancelled appt for [facility] for this afternoon. documented in this encounterMer[facility]24 Telephone encounter Note * Telephone Encounter - Autumn Mares MA - 05/08/2024 9:27 AM EDT Approval received. Pt will call [facility] to schedule Autumn Mares MA [facility]10-04-2024 Miscellaneous Notes* Telephone Encounter - Autumn Mares MA - 05/08/2024 9:27 AM EDT Approval received. Pt will call [facility] to schedule Autumn Mares MA * Telephone Encounter - Autumn Mares MA - 05/08/2024 9:11 AM EDT Referral placed. Waiting to hear back from pre access if approved Autumn Mares MA * Telephone Encounter - Zina Duran APRN.NGIHAT - 05/07/2024 5:03 PM EDT Please check to see if [facility] has availability. If so please fax order. * Telephone Encounter - Sophie Collier - 05/07/2024 4:55 PM EDT Pt called to check schedule in [place] for [place]. There are no appointments available here tomorrow. He would like to check at the [facility] if the order could be sent there to check appointment availability tomorrow. He kept the [place] appointment just in case we find that the [facility] can't accommodate tomorrow. documented in this encounterMercy [facility]10-04-2024 Telephone encounter Note * Telephone Encounter - Autumn Mares MA - 05/08/2024 9:11 AM EDT Referral placed. Waiting to hear back from pre access if approved Autumn Mares MA [facility]10-03-2024 Telephone encounter Note* Telephone Encounter - Zina Duran APRN.CNP - 05/07/2024 5:03 PM EDT Please check to see if [facility] has availability. If so please fax order. [facility]10-03-2024 Telephone encounter Note* Telephone Encounter - Sophie Collier - 05/07/2024 4:55 PM EDT Pt called to check schedule in [place] for [place]. There are no appointments available here tomorrow. He would like to check at the [facility] if the order could be sent there to check appointment availability tomorrow. He kept the [place] appointment just in case we find that the [facility] can't accommodate tomorrow. [facility] Work Phone: [phone] NoteHNO ID: [id number] Author: ZINA DURAN APRN.CRYPTOGRAPHIC CLERK Service: ? Author Type: Nurse Practitioner Type: [...] Left TONSILLECTOMY HX TOTA (more content not included)...[facility] History of Present illness Narrative* Zina Duran APRN.CRYPTOGRAPHIC CLERK - 05/07/2024 3:50 PM EDT Chief Complaint [...] Pt reports he was told by the analytic programmer that they almost lost him due to [...] (FLONASE) 50 mcg/actuation nasal spray Use 1 [place] in each nostril once daily. Rinse mouth [...] - US DVT LOWER BILATERAL Zina Duran APRN.CRYPTOGRAPHIC CLERK documented in this encounterMercy Health – [facility]09-03-2024 Miscellaneous Notes* Telephone Encounter - Ella Valdovinos PA-C - 04/07/2024 11:12 AM EDT Ordering labs for next year's wellness exam. Ella Valdovinos PA-C documented in this encounterMercy Health [facility]09-03-2024 Telephone encounter Note * Telephone Encounter - Ella Valdovinos PA-C - 04/07/2024 11:12 AM EDT Ordering labs for next year's wellness exam. Ella Valdovinos PA-C [facility]09-03-2024 History of Present illness Narrative* Ella [...] Pt reports he was told by the analytic programmer that they almost lost him due to [...] (FLONASE) 50 mcg/actuation nasal spray Use 1 [place] in each nostril once daily. Rinse mouth [...] urology Ella Valdovinos PA-C documented in this encounterMercy Health [facility]08-07-2024 Instructions* Patient Instructions* Abby Pate MD - [...] or extra movements (dyskinesia). documented in this encounterMercy Health – The [facility]08-07-2024 History of Present illness Narrative* Abby Pate [...] (FLONASE) 50 mcg/actuation nasal spray Use 1 [place] in each nostril once daily. Rinse mouth [...] Discussed with Patient: YES Abby Pate MD [facility] Neurology documented in this encounterMercy Health [facility]07-23-2024 Telephone encounter Note * Telephone Encounter - Stacy Varghese RN - 02/25/2024 11:51 AM EDT Call placed to patient and notified of provider message below. Patient verbalizes understanding andwill continue taking Flomax. Stacy Varghese RN [facility]07-23-2024 Miscellaneous Notes* Telephone Encounter - Stacy Varghese RN - 02/25/2024 11:51 AM EDT Call placed to patient and notified of provider message below. Patient verbalizes understanding andwill continue taking Flomax. Stacy Varghese RN * Telephone Encounter - Zina Duran APRN.CNP [...] night. Jessica Brown LPN documented in this encounterMercy Health – [facility]07-23-2024 Telephone encounter Note * Telephone Encounter - Zina Duran APRN.CNP - 02/25/2024 8:09 AM EDT Please let patient know it can take 2-6 weeks for medication to become effective. [facility] Work Phone: 1(134) 866-140307-22-2024 Telephone encounter Note* Telephone Encounter - Autumn Mares MA - 02/24/2024 4:36 PM EDT Spoke to patient and . Pt states he is taking the Flomax and he is urinating more than before he started the medication. Autumn Mares MA [facility]07-22-2024 Telephone encounter Note* Telephone Encounter - Zina Duran APRN.NIGHAT - 02/24/2024 4:32 PM EDT Is patient currently taking flomax? If he has not started medication he may start it. If he is taking it is he going more or less than before starting medication? [facility]07-22-2024 Telephone encounter Note* Telephone Encounter - Jessica [...] much sleep at night. Jessica Brown LPN [facility]07-17-2024 Note Discharge Instructions Thank you for [...] with ONIEL FRANCIS When:Only if needed Where:[address] [place] [address]- [facility] (1) Follow Up with CHRIS COX When:In 2 weeks Where:[facility] [address] [place] [address]- [facility] (1) Someone Will Contact You Regarding These [...] to exceed 3000 mg/ day Pickup at [facility]/pharmacy #3321 New docusate-senna (Senokot S) 2 tab(s) by mouth Two (2) times a day Take until first bowel movement, then as needed New famotidine (Pepcid 20 mg oral tablet) 1 tab(s) by mouth Once a day Pickup at [facility]/pharmacy #3321 New oxyCODONE (oxyCODONE 5 mg oral tablet ( IMMEDIATE release )) See instructions Status post total left knee replacement 1-2 tab(s) Oral q4h, As needed for as needed for pain Pickup at [facility]/pharmacy #3321 New rivaroxaban (Xarelto 10 mg oral tablet) 1 tab(s) by mouth Once a day Status post total left knee replacement 1 tablet daily for 2 weeks postoperatively due to past history of DVT Pickup at [facility]/pharmacy #3321 Unchanged acetaminophen-diphenhydramine (Tylenol PM Extra [...] by mouth Once a day Pharmacy Information [facility]/pharmacy #3321: [address], [place] [phone] Please take this list to your next doctor s visit. Bring all medications you take, including over the counter medications, herbals and other supplements with you to your doctor s visit. Patients and families are reminded to discard old lists and to update any records with all medication providers or retail pharmacies. Education Materials [facility] Post-operative Instructions PLEASE FOLLOW [facility] POST-OP INSTRUCTIONS GIVEN WATCH FOR SIGNS OF INFECTION: call the office ([phone]) if experencing any of the following: (Usually [...] on your follow up instructions. Form: 338A (37488) R: 12/09 Additional Information VACCINATE! IT SAVES LIVES! Members of the community who have not yet received the COVID-19 vaccine and would like to receive it can visit one of [facility] vaccine clinics. There are many vaccine clinic locations within the [facility]. For locations and available times, please visit [email or web address] It is important to note that some COVID mobile vaccine clinics are held outdoors and may be canceled in rainy or stormy conditions. To learn more about pediatric vaccinations (ages 5-11), we invite you to visit the [facility] webpage. [email or web address]://www.IncreaseCards.org/[email or web address]-[email or web address]-Mujxo-[email or web address] stions.htmlTo learn more about the COVID-19 vaccine, we invite you to visit the CDC website for a list of frequently asked questions.https://www.cdc.gov/coronavirus/2019-ncov/vaccines/faq.html [employer] Patient Portal Access Instructions: Stay connected with your healthcare team and access your personal medical information anytime with the [employer] Patient Portal. Please follow the directions below to create your [employer] account: 1.Access the email account you provided upon registration to the hospital/physician office.2.Look for an invitation email from [facility].3.Open the email and access the invitation link: AcceptInvitation to [employer].4.Fill in the required freeman to create your account. To access your account, visit [employer] System[employer]art. Click the blue button labeled Access Patient Portal and then log in with the username and password that you created in the steps above. You will be able to view your test results, lab results, a summary of your visits, upcoming appointments and more. There is also a convenient messaging option where you can send secure messages to your p jeronimovider. In addition, you will have the ability to download any documents or summaries to your computer and/or send the information securely to a physician. Remember that your healthcare information is confidential, so carefully consider who you will allowto register on the [facility] Patient Portal for access to your information. You can also access the [facility] Patient Portal on the [place] marti. Simply click on Patient Portal and then log into your account. If you would like to receive a full copy of your medical records, please contact the [facility] Medical Records Department by calling [phone], Saturday through Saturday between 8 a.m. and [...] Call your local pharmacy or go to [email or web address].Lingohub/[email or web address] to find one close to you.3.Make use of household items: Use cat litter or old coffee grounds to dispose medications if other options arenot available. Mix your drugs with these household products, seal them in an airtight container andthrow it into the garbage. Call [facility]: [phone] to be sure your drugs can be [...] a CHART COPY. Signatures Patient Education Materials [address] [place] [address] Post-op Instruction 03/2017 (49396) Medication Leaflets My discharge plan and instructions have been reviewed and explained to me and I,SONIYA COOLEY understand my current condition and have read and understand these discharge instructions. I have received a written copy of the plan/instructions. If I have questions, I am aware that I should contact my doctor. Patient/Director Safety Council Signature: Date/Time: Relationship to Patient: Witness Name/Signature: Date/Time: [facility]07-17-2024 Note Date of Service February 19, [...] patient to go home when medically stable. [facility] have outpatient physical therapy established. Objective Vitals [...] would like his prescriptions E scribed to [facility] in [facility]. He has outpatient physical therapy established. [...] CHRIS COX PA-C on 02/19/2024 08:40 AM [facility]07-17-2024 Hospital Discharge instructions Patient Education 02/19/2024 08:40:59 5 - [facility] Post-op Instruction 03/2017 (27673) [facility] Post-operative Instructions PLEASE FOLLOW [facility] POST-OP INSTRUCTIONS GIVEN WATCH FOR SIGNS OF INFECTION: call the office ([phone]) if experencing any of the following: (Usually [...] on your follow up instructions. Form: 338A (44222) R: 12/09 Follow Up Care 01/09/2024 07:46:38 With:ONIEL FRANCIS Address: [address] [place] [address]- Business (1) When: only if needed With:CHRIS COX Address: [facility] [address] [place] [address] Business (1) When:Within 2 Week(s) [facility] 07-17-2024 Note Date of Service February [...] patient to go home when medically stable. [facility]. Objective [...] would like his prescriptions E scribed to [facility] in [facility]. He has outpatient physical therapy established. [...] CHRIS COX PA-C on 02/19/2024 08:40 AM [facility]07-16-2024 Note ORIGINAL EXAMINATION: TWO XRAY VIEWS [...] Sign Date: 02/18/2024 3:48:22 PM Ordering Provider: [facility]07-16-2024 Anesthesiology Consult note Patient: SONIYA COOLEY Age: 83 years Sex: Male : 1940 Associated Diagnoses: None Author: HUSEYIN ANGELO Preoperative Information Time of last food or [...] or recorded. Procedure history: Arthroplasty of knee ([id number]) on 02/18/2024 at 83 Years. 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 Tonsillectomy and adenoidectomy ([id number]). Colonoscopy (535581484). Cholecystectomy (83514609). CABG x 4 - Coronary artery bypass grafts x 4 ([id number]). Social History: Social & Psychosocial Habits Alcohol [...] Signs (last 24 hrs) Last Charted Temp Wisfzvdl99.6 DegC (FEB 17 11:01) Heart Rate Uzeqnefnr99 bpm (FEB 17 13:55) VRT480 mmHg (FEB 17 13:55) DBP59 mmHg (FEB 17 13:55) Measurements from flowsheet : Measurements 02/18/2024 11:01 EDT Height 170.2 cm Admission Weight 88 kg [place] Body Weight 66.12 kg Admission Body Mass [...] Integrity Intact/Dry 02/18/2024 13:19 EDT SN - TN - Medication SODIUM CHLORIDE 0.9% 43.95ML SN - TN - Medication SODIUM CHLORIDE 0.9% 43.95ML SN - TN - Medication SODIUM CHLORIDE 0.9% 50ML SN - TN - Route of Administration Local SN - TN - Route of Administration Local SN - TN - Route of Administration Topical SN - TN - By (Single) SN - TN - By (Single) SN - TN - By (Single) SN - TN - By (Single) SN - TN - By (Single) SN - TN - By (Single) 02/18/2024 13:16 EDT SN [...] Surgeon SN - CAt - Role Performed Energy Derivatives Trader 1 SN - CAt - Role Performed Scrub 1 SN - CAt - Role Performed Scrub 1 SN - CAt - Role Performed Drum Stock Clerk 1 SN - CAt - Role Performed RETIREMENT SPECIALIST SN - CAt - Role Performed Fiberglass Boat Builder SN - CAt - Role Performed Fiberglass Boat Builder SN - CAt - Role Performed Physician Emergency Room Orderly 02/18/2024 12:41 EDT citric acid-sodium citrate Not [...] Height 170.2 cm Admission Weight 88 kg [place] Body Weight 66.12 kg Admission Body Mass [...] Quadrants Present Skin Temperature Warm Skin Description [place] Skin Integrity Intact Mucous Membrane Color [place] Skin Moisture General Dry Neurological Symptoms Patient [...] EDT Designated Person #1 [phone] Designated Person #1 Relationship Spouse Privacy Restrictions [...] Directive Type [place] Durable Power of Videogame Designer for [place], [place] Declaration (Living Will) Advance Directive Location [...] Method Explanation, Printed materials Preferred Spoken Language Algerian Preferred Written Language Algerian Teaching Evaluation Verbalizes/Nonverbally indicates understanding Total Joint Book Given Yes Safety Brochure Information Reviewed Unable to complete Gadiel Wade Video Viewed No Information Given by [...] Allergies Yes Anesthesia Extension Set Applied Yes System Software Programmer On Yes Consent Form Signed Yes Patient [...] Intake 02/17/2024 22:00 . Assessment and Plan [place] Society of Anesthesiologists (ASA) physical status classification: Class III. Anesthetic Preoperative Plan Premedication: intravenous. Anesthetic technique: Spinal. Induction: intravenously. Maintenance airway: 40%. Regional: Adductor Canal Block. Postoperative pain management: Per surgeon. Informed consent: signed by patient. Digitally Signed by HUSEYIN ANGELO on 02/18/2024 02:08 PM [facility]07-10-2024 Telephone encounter Note* Telephone Encounter - Shae Morrissey LPN - 02/12/2024 4:11 PM EDT Katia calling from [facility], pt is there for a pre op appt. Requesting last 2 chest xrays. Xrays from 12/14/23 & 01/31/24 faxed to [phone]. Shae Morrissey LPN [facility]07-10-2024 Miscellaneous Notes* Telephone Encounter - Shae Morrissey LPN - 02/12/2024 4:11 PM EDT Davis calling from [facility], pt is there for a pre op appt. Requesting last 2 chest xrays. Xrays from 12/14/23 & 01/31/24 faxed to [phone]. Shae Morrissey LPN documented in this encounterMercy Health [facility]07-08-2024 Instructions* Patient Instructions* Ella Valdovinos PA-C - [...] review all the medicines you take, even uugh-kjf-iryvqoy medicines. As you get older, the way [...] have certain medical conditions. documented in this encounterMercy Health [facility]07-08-2024 History of Present illness Narrative* Ella Valdovinos [...] Meniscus tear 12/27/2015 Right, minimal. Seen [facility] Microscopic hematuria 01/10/2021 Saw Luciano 02/2021 and [...] Pt reports he was told by the analytic programmer that they almost lost him due to [...] (FLONASE) 50 mcg/actuation nasal spray Use 1 [place] in each nostril once daily. Rinse mouth [...] Abs Lymph 1.00 - 4.00 k/uL 3.12 [place]% % 9.5 Abs [place] <0.87 k/uL 0.68 Eosin% % 5.6 Abs Eosin <0.46 k/uL 0.40 Baso% % 0.6 Abs Baso <0.11 k/uL 0.04 Immature Gran % % 0.3 IMMATURE GRANS (ABS) <0.10 k/uL <0.03 NRBC /100 WBC 0.0 Absolute nRBC <0.01 k/uL <0.01 DTYPE Auto Color Yellow Yellow Clarity Clear Clear Glucose, Urine Negative Negative Bilirubin, Urine Negative Negative Ketones, Urine Negative Negative Specific [place], Ur 1.005 - 1.030 1.020 Hemoglobin/Blood,Ur Negative [...] aerobic exercise 9. 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 documented in this encounterMercy Health [facility]07-03-2024 History of Present illness Narrative* Zina Santiago MA - 02/05/2024 12:19 PM EDT POPULATION HEALTH NAVIGATION OUTREACH Action/FYI Patient is on [facility] CURRENT ROSTER Workbench list for below and [...] 05, 2024 12:19 PM documented in this encounterMercy Health – [facility]07-03-2024 Telephone encounter Note * Telephone Encounter - Stacy Varghese RN - 02/05/2024 8:33 AM EDT Patient calls and notified of results. Patient verbalizes understanding. Stacy Varghese RN [facility]07-03-2024 Miscellaneous Notes* Telephone Encounter - Stacy Varghese RN - 02/05/2024 8:33 AM EDT Patient calls and notified of results. Patient verbalizes understanding. Stacy Varghese RN * Telephone Encounter - Prudencio Barlow [...] normal. Ella Valdovinos PA-C documented in this encounterMercy Health – [facility]07-02-2024 Telephone encounter Note * Telephone Encounter - Prudencio Barlow MA - 02/04/2024 11:15 AM EDT Left additional message for patient to contact office. Prudencio Barlow MA [facility]07-01-2024 Telephone encounter Note* Telephone Encounter - Keren Sykes LPN - 02/03/2024 3:00 PM EDT Left message for pt to contact office. Keren Sykes LPN [facility]07-01-2024 Telephone encounter Note* Telephone Encounter - Ella Valdovinos PA-C - 02/03/2024 2:14 PM EDT Repeat CXR is normal. Ella Valdovinos PA-C [facility]06-28-2024 History of Present illness Narrative* Kerri Saenz [...] PATIENT PRESENTS WITH AN IMPLANTABLE OR ATTACHED STEM SIZER: No RADIOLOGY DEPARTMENT: General X-ray: Exam(s) Completed: Chest X-Ray PERIPHERAL IV DATA: Not applicable SIGNED BY: RT Teresa(R) January 31, 2024 8:11 AM documented in this encounterMercy Health – [facility]06-24-2024 Note ORIGINAL EXAMINATION: CT OF THE LEFT [...] Sign Date: 01/27/2024 1:37:20 PM Ordering Provider: [facility]05-28-2024 Instructions* Patient Instructions* Oniel Francis MD - 12/31/2023 11:44 AM EDT Come in to get the repeat chest x-ray on or after 01/17/2024 along with labs and urine test. You do not need to fast. documented in this encounterMercy Health – [facility]05-28-2024 History of Present illness Narrative* Oniel Francis [...] () Meniscus tear 12/27/2015 Right, minimal. Seen [facility] Microscopic hematuria 01/10/2021 Saw Luciano 02/2021 [...] Pt reports he was told by the analytic programmer that they almost lost him due to [...] (FLONASE) 50 mcg/actuation nasal spray Use 1 [place] in each nostril once daily. Rinse mouth [...] Data reviewed Results XR CHEST 2V FRONTAL/LAT ([id number]) (Order [id number]) Patient Info Patient Name Sex Soniya Cooley ([id number]) Male 1940 12/14/2023 1:34 PM - Radiology, [place] Impression IMPRESSION: Questionable vague hazy opacity in the left midlung. Consider short-term follow-up. Finance Business Partner: GEOFFREY Transcribe Date/Time: Dec 14 2023 1:30P [...] needed. Oniel Francis MD documented in this encounterMercy Health – [facility]05-20-2024 History of Present illness Narrative* Marj Mackey MD - 12/23/2023 3:40 PM EDT Images from the original note were not included. [facility] SECTION OF REGIONAL CARDIOLOGY Cardiology ([address]) [address] [facility] [id number] OUTPATIENT VISIT DATE 12/23/2023 PRIMARY CARE PHYSICIAN: Oniel Francis [address] [place] [address] HISTORY OF PRESENT ILLNESS: Mr. Cooley is [...] Seen [facility] Microscopic hematuria 01/10/2021 Saw [facility]on 02/2021 and felt further w/u not warranted. [...] Pt reports he was told by the analytic programmer that they almost lost him due to [...] fluticasone (FLONASE) 50 mcg/actuation nasal spray^Use 1 [place] in each nostril once daily. Rinse mouth [...] S1, S2 with regular rate and rhythm. [place] aortic valve sounds noted. CARDIOVASCULAR MEDICINE TESTING: [...] 0.85 which was hemodynamically significant. Impressions: Severe cantwell multivessel CAD Patent Bypass grafts Echocardiogram [facility] 01/08/2020 Normal LV size, mild concentric [...] AND RECOMMENDATIONS: 1. 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- ICD9: 414.01, ICD10: [...] surgery. Marj Mackey MD documented in this encounterMercy Health [facility]05-14-2024 Telephone encounter Note * Telephone Encounter - Michelle Herring RN - 12/17/2023 11:46 AM EDT Patient's scheduled for appointment on 12/31/2023. Michelle Herring RN [facility]05-14-2024 Miscellaneous Notes* Telephone Encounter - Michelle Herring [...] mid lung has resolved. documented in this encounterMercy Health – [facility]05-14-2024 Telephone encounter Note * Telephone Encounter - Prudencio Barlow MA - 12/17/2023 9:04 AM EDT Left message for patient to contact office. Prudencio Barlow MA [facility]05-13-2024 Telephone encounter Note* Telephone Encounter - Oniel Francis MD - 12/16/2023 10:04 PM EDT Needs f/u in 3 weeks within [place] for f/u pneumonia and repeat chest x-ray to see if vague hazy opacity in left mid lung has resolved. [facility]05-11-2024 History of Present illness Narrative* Damián Lynn, RT(R) - 12/14/2023 11:40 AM EDT Radiology [...] PATIENT PRESENTS WITH AN IMPLANTABLE OR ATTACHED STEM SIZER: No RADIOLOGY DEPARTMENT: General X-ray: Exam(s) Completed: Chest X-Ray PERIPHERAL IV DATA: Not applicable SIGNED BY: RT Marjorie(R) December 14, 2023 11:44 AM documented in this encounterMercy Health [facility]05-11-[facility]24 History of Present illness Narrative* Eva Barlow APRN.CRYPTOGRAPHIC CLERK - 12/14/2023 11:31 AM EDT CC: Patient [...] fluticasone (FLONASE) 50 mcg/actuation nasal spray^Use 1 [place] in each nostril once daily. Rinse mouth [...] in the left midlung. Consider short-term follow-up. Finance Business Partner: GEOFFREY Transcribe Date/Time: Dec 14 2023 1:30P [...] Patient agreeable to treatment plan. Eva Barlow APRN.CRYPTOGRAPHIC CLERK documented in this encounterMer[facility]04-09-2024 History of Present illness Narrative* Lelia Soni MA - 11/12/2023 3:16 PM EDT POPULATION HEALTH NAVIGATION OUTREACH Action/FYI Contacted patient to schedule [place] Annual Wellness Visit, care gaps and HCCs [...] 12, 2023 3:16 PM documented in this encounterMercy Health [facility]02-07-2024 Instructions* Patient Instructions* Abby Pate MD - 09/11/2023 2:08 PM EST Continue the same dose of medication today, consider compressing the times to every 5 hours. Try to stay physically active, consider stationary bike if it doesn't trigger too much pain. Ask your doctor about medications for urination overnight. Continue the miralax for constipation. documented in this encounterMercy Health [facility]02-07-2024 History of Present illness Narrative* Abby Pate [...] (FLONASE) 50 mcg/actuation nasal spray Use 1 [place] in each nostril once daily. Rinse mouth [...] Discussed with Patient: n/a Abby Pate MD [facility] Neurology documented in this encounterMercy Health [facility]11-20-2023 Instructions* Patient Instructions* Marj Mackey MD - 06/24/2023 4:28 PM EST We are ordering an echocardiogram and a carotid ultrasound documented in this encounterMercy Health [facility]11-20-2023 History of Present illness Narrative* Marj Mackey MD - 06/24/2023 4:00 PM EST Images from the original note were not included. [facility] SECTION [facility] REGIONAL CARDIOLOGY Cardiology ([address]) [address] [facility] [id number] OUTPATIENT VISIT DATE 06/24/2023 PRIMARY CARE PHYSICIAN: Oniel Francis [address] [place] [address] HISTORY OF PRESENT ILLNESS: Mr. Cooley is [...] Pt reports he was told by the analytic programmer that they almost lost him due to [...] (FLONASE) 50 mcg/actuation nasal spray Use 1 [place] in each nostril once daily. Rinse mouth [...] S1, S2 with regular rate and rhythm. [place] aortic valve sounds noted. CARDIOVASCULAR MEDICINE TESTING: Cardiac Catheterization August 2018 Findings: Left main Normal LAD 50% mid stenosis LCx (dominant) severe diffuse proximal disease RCA 100% mid occlusion (non-dominant per records) SVG to Diagonal, AV groove LCx, LPDA patent IFR of the 50% stenosis in the mid LAD was 0.85 which was hemodynamically significant. Impressions: Severe cantwell multivessel CAD Patent Bypass grafts Echocardiogram [facility] 01/08/2020 Normal LV size, mild concentric [...] AND RECOMMENDATIONS: 1. 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- ICD9: 414.01, ICD10: [...] SYRINGE Marj Mackey MD documented in this encounterMercy Health [facility]08-16-2023 Instructions* Patient Instructions* Abby Pate MD - 03/20/2023 12:03 PM EDT Lets keep things the same today. We could consider compressing the times of your doses to every 5 hours to try to reduce OFF time. Try to keep an eye on when you're feeling better or worse in comparison to medicine timing. Try to increase activitiy. documented in this encounterMercy Health [facility]08-16-2023 History of Present illness Narrative* Abby Pate [...] (FLONASE) 50 mcg/actuation nasal spray Use 1 [place] in each nostril once daily. Rinse mouth [...] normal. Last dose levodopa 300 mg @ 2464-0203, exam 1200. Mildly ON. Motor: Muscle bulk [...] Discussed with Patient: n/a Abby Pate MD [facility] Neurology documented in this encounterMercy Health – [facility]08-15-2023 Miscellaneous Notes* Telephone Encounter - Amy Garcia - 03/19/2023 9:28 AM EDT Pharmacy requesting refills as follows via ERAR: ROLAN: 06/18/2022 NOV: 03/20/2023 Requested Prescriptions Pending Prescriptions Disp Refills carbidopa-levodopa (SINEMET 25-100) 25-100 mg per tablet [Pharmacy Med Name: CARB/LEVO TAB 25-100MG] 810 tablet 2 Sig: TAKE 3 TABLETS 3 TIMES A DAY Please review and advise. Amy Garcia documented in this encounterMercy Health [facility]05-10-2023 Miscellaneous Notes* Telephone Encounter - Ana Quigley - 12/12/2022 3:07 PM EDT Pt calling to let office know that [facility] ordered Meloxicam for him. He wanted to be sure it was ok to take with his other medications. Added to med list. No contraindications listed. I verified with carbon electrodes supervisor. Ana Quigley documented in this encounterMercy Health [facility]04-06-2023 Miscellaneous Notes* Telephone Encounter - Mayra Breaux [...] you. Mayra Breaux LPN documented in this encounterMercy Health – [facility]04-05-2023 Miscellaneous Notes* Telephone Encounter - Zoe Madrid RN - 11/07/2022 3:56 PM EDT Patient called this nurse requesting clarification about possibly needing an echocardiogram. Patient reports understanding of plan of care that Dr. Mackey May consider repeat echocardiogram later this year. At 6 month follow up after this nurse reviewed MD note from appointment on 10/29/22. Zoe Madrid RN documented in this encounterMercy Health – [facility]03-27-2023 History of Present illness Narrative* Marj Mackey MD - 10/29/2022 11:00 AM EDT Images from the original note were not included. [facility] SECTION OF REGIONAL CARDIOLOGY Cardiology ([facility]) [address] [facility] [id number] OUTPATIENT VISIT DATE 10/29/2022 PRIMARY CARE PHYSICIAN: Oniel Francis [address] [place] [address] HISTORY OF PRESENT ILLNESS: Mr. Cooley is [...] Pt reports he was told by the analytic programmer that they almost lost him due to [...] (FLONASE) 50 mcg/actuation nasal spray Use 1 [place] in each nostril once daily. Rinse mouth [...] S1, S2 with regular rate and rhythm. [place] aortic valve sounds noted. CARDIOVASCULAR MEDICINE TESTING: Cardiac Catheterization August 2018 Findings: Left main Normal LAD 50% mid stenosis LCx (dominant) severe diffuse proximal disease RCA 100% mid occlusion (non-dominant per records) SVG to Diagonal, AV groove LCx, LPDA patent IFR of the 50% stenosis in the mid LAD was 0.85 which was hemodynamically significant. Impressions: Severe cantwell multivessel CAD Patent Bypass grafts Echocardiogram [facility] 01/08/2020 Normal LV size, mild concentric [...] AND RECOMMENDATIONS: 1. 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- ICD9: 414.01, ICD10: [...] TABLET Marj Mackey MD documented in this encounterMercy Health – [facility]12-14-2022 Miscellaneous Notes* Telephone Encounter - Moni Encarnacion - 07/18/2022 4:09 PM EST Pharmacy requesting refills as follows via ERAR: ROLAN: 06/18/22 NOV: not scheduled Requested Prescriptions Pending Prescriptions Disp Refills carbidopa-levodopa (SINEMET 25-100) 25-100 mg per tablet [Pharmacy Med Name: CARB/LEVO TAB 25-100MG] 810 tablet 2 Sig: TAKE 3 TABLETS 3 TIMES A DAY Please review and advise. Moni Encarnacion documented in this encounterMercy Health – The [facility] Hospital11-22-2022 Miscellaneous Notes* Telephone Encounter - Stacy Varghese [...] at 5.7% and has been stable at [facility] for the last 18 months Continue to try to reduce sugars, starches and carbs in diet. documented in this encounterMercy Health – [facility] Hospital11-18-2022 Instructions* Patient Instructions* Oniel Francis MD - 06/22/2022 9:16 AM EST Please get labs and urine test done on or after 12/07/2022 prior to your next visit. documented in this encounterMercy Health – The Jewish Hospital11-18-2022 History of Present illness Narrative* Oniel Francis [...] (jerzyensons) Sister Cancer Brother prostate cancer other (Pakensons) Brother Hyperlipidemia Child Hyperlipidemia Child Patient Allergies ALLERGIES Allergen Reactions Iodine Other: See Comments ?decreased BP with iodinated contrast during a cardiac cath. Pt reports he was told by the analytic programmer that they almost lost him due to [...] (FLONASE) 50 mcg/actuation nasal spray Use 1 [place] in each nostril once daily. Rinse mouth [...] Abs Lymph 1.00 - 4.00 k/uL 2.93 [place]% % 9.2 Abs [place] <0.87 k/uL 0.61 E[place]% % 2.0 Abs [...] check A1c 4. 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- ICD9: 414.01, ICD10: [...] prior Oniel Francis MD documented in this encounterMercy Health [facility]11-14-2022 History of Present illness Narrative* Abby Pate [...] (FLONASE) 50 mcg/actuation nasal spray Use 1 [place] in each nostril once daily. Rinse mouth [...] Discussed with Patient: YES Abby Pate MD [facility] Neurology documented in this encounterMercy Health – [facility]10-07-2022 Miscellaneous Notes* Telephone Encounter - Oniel Francis [...] 06/2022 Last refill: 11/2021 documented in this encounterMercy Health – [facility] Hospital09-26-2022 Instructions* Patient Instructions* Marj Mackey MD - 04/30/2022 10:36 AM EDT We are adding Zetia 10 mg once per day Repeat fasting blood work in 3-4 months We are scheduling you for an ultrasound of the carotids documented in this encounterMercy Health – [facility]09-26-2022 History of Present illness Narrative* Marj Mackey MD - 04/30/2022 10:14 AM EDT Images from the original note were not included. [facility] SECTION OF REGIONAL CARDIOLOGY Cardiology ([address]) [address] [facility] [address] OUTPATIENT VISIT DATE 04/30/2022 PRIMARY CARE PHYSICIAN: Oniel Francis [address] [place] [address] REFERRING PHYSICIAN: SELF CHIEF COMPLAINT: Establish new cardiology follow-up HISTORY OF PRESENT ILLNESS: Mr. Cooley is a 81 year old gentleman with a history of coronary artery disease with remote coronary bypass grafting with an SVG graft to dominant left circumflex, left PDA with a Y graft to the diagonal branch 2002. Underwent repeat grafting aortic valve replacement in 2019 with a LLANOS graft LADand Bernice-Rush aortic [...] asymptomatic, bilateral 10/29/2008 S/P left repair, Sees [facility] for yearly US. Coronary atherosclerosis 08/24/2015 History: [...] () Meniscus tear 12/27/2015 Right, minimal. Seen [facility] Microscopic hematuria 01/10/2021 Saw [facility] 02/2021 [...] Pt reports he was told by the analytic programmer that they almost lost him due to [...] (FLONASE) 50 mcg/actuation nasal spray Use 1 [place] in each nostril once daily. Rinse mouth [...] S1, S2 with regular rate and rhythm. [place] aortic valve sounds noted. CARDIOVASCULAR MEDICINE TESTING: Cardiac Catheterization August 2018 Findings: Left main Normal LAD 50% mid stenosis LCx (dominant) severe diffuse proximal disease RCA 100% mid occlusion (non-dominant per records) SVG to Diagonal, AV groove LCx, LPDA patent IFR of the 50% stenosis in the mid LAD was 0.85 which was hemodynamically significant. Impressions: Severe cantwell multivessel CAD Patent Bypass grafts Echocardiogram [facility] 01/08/2020 Normal LV size, mild concentric [...] AND RECOMMENDATIONS: 1. 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- ICD9: 414.01, ICD10: [...] TABLET Marj Mackey MD documented in this encounterMercy Health – [facility]09-19-2022 History of Present illness Narrative* Naun Monterroso [...] (FLONASE) 50 mcg/actuation nasal spray Use 1 [place] in each nostril once daily. Rinse mouth [...] Pt reports he was told by the analytic programmer that they almost lost him due to [...] evacuation. Naun Monterroso MD documented in this encounterMercy Health – The [facility] Hospital09-19-2022 History of Present illness Narrative* Dana Milligan RN - 04/23/2022 11:15 AM EDT 01 documented in this encounterMercy Health – The [facility] Hospital07-18-2022 History of Present illness Narrative* Charan Roamn APRN.NIGHAT - 02/19/2022 11:31 AM EDT Images [...] () Meniscus tear 12/27/2015 Right, minimal. [facility]opic hematuria 01/10/2021 Saw [facility] 02/2021 [...] (FLONASE) 50 mcg/actuation nasal spray Use 1 [place] in each nostril once daily. Rinse mouth [...] (erin) Sister Cancer Brother prostate cancer other ([place]) [...] MG TABLET Agrees to plan Charan Roman APRN.CRYPTOGRAPHIC CLERK documented in this encounterMercy Health – [facility]05-13-2022 Instructions* Patient Instructions* Abby Pate MD - 12/15/2021 3:52 PM EDT Continue the same dose of medication today. Continue to exercise as much as possible. Consider melatonin for dream enactment behavior - 5 mg a couple hours before bed for 2 weeks then increase to 10 mg if no improvement. documented in this encounterMercy Health – [facility]05-13-2022 History of Present illness Narrative* Abby Pate [...] (FLONASE) 50 mcg/actuation nasal spray Use 1 [place] in each nostril once daily. Rinse mouth [...] Discussed with Patient: n/a Abby Pate MD [facility] Neurology documented in this encounterMercy Health – [facility]04-06-2022 Miscellaneous Notes* Telephone Encounter - Keren Sykes [...] send both medications to mail order pharmacy, [facility]. The pharmacy has been trying to reach the office with no reply. documented in this encounterMercy Health – [facility]06-08-2021 History of Past illness Narrative* Problem [...] of this encounter (statuses as of 03/19/2023) [facility] History of Past illness Narrative* Problem [...] of this encounter (statuses as of 03/21/2023) [facility] History of Past illness Narrative* Problem [...] of this encounter (statuses as of 06/25/2023) [facility] History of Past illness Narrative* Problem Noted Date Diagnosed Date Resolved Date Other proteinuria 01/10/2021 12/25/2022 Overview: 24 hr patient 01/2021 normal, Tremor 12/11/2019 01/14/2020 Acute deep vein thrombosis ( DVT) of distal vein of lower extremity 04/20/2019 01/14/2020 Stress hyperglycemia 10/29/2018 019 Overview: History: No h/o DM. 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 Plan: [...] of this encounter (statuses as of 09/12/2023) [facility] History of Past illness Narrative* Problem [...] of this encounter (statuses as of 11/13/2023) [facility]03-04-2021 NoteHNO ID: [id number] Author: Abby Pate Service: ? Author Type: [...] (FLONASE) 50 mcg/actuation nasal spray Use 1 [place] in each nostril once daily. Rinse mouth [...] OFF ON MDS-UPDRS TIME of UPDRS - 19139 MDS-UPDRS TIME OF LAST MEDICATION - 43502 MDS-UPDRS LAST MEDICATION TAKEN - cd/ld 25/100 mg 1.5 tabs MDS (more content not included)...[facility]10-30-2020 NoteHNO ID: [id number] Author: Abby Pate Service: ? Author Type: [...] (FLONASE) 50 mcg/actuation nasal spray Use 1 [place] in each nostril once daily. Rinse mouth [...] decreased eye-blink frequency, Ma (more content not included)...[facility]06-30-2020 NoteHNO ID: [id number] Author: Abby Pate Service: ? Author Type: [...] with shaking towards end of her life. Ukrainian and Korean background. He endorses some difficulty with manual [...] (FLONASE) 50 mcg/actuation nasal spray Use 1 [place] in each nostril once daily. Rinse mouth [...] Pt reports he was told by the analytic programmer that they almost lost him due to [...] Aortic valve replaced 11/14/19 (more content not included)...[facility]05-08-2020 History of Past illness Narrative* Problem [...] of this encounter (statuses as of 11/08/2021) [facility] History of Past illness Narrative* Problem [...] 27 ) was implanted in usual manner, LLNAOS ( skeletonized ) to LAD BRIEF FINDINGS: Dense pericardial adhesions, degeneration of previous implanted aortic valve, Excellent quality and flow in LLANOS and good size LAD target Plan: ASA Family history of malignant neoplasm of gastrointestinal tract 01/14/2020 documented as of this encounter (statuses as of 12/01/2021) [facility] History of Past illness Narrative* Problem [...] of this encounter (statuses as of 12/15/2021) [facility] History of Past illness Narrative* Problem [...] of this encounter (statuses as of 02/19/2022) [facility] History of Past illness Narrative* Problem [...] of this encounter (statuses as of 04/23/2022) [facility] History of Past illness Narrative* Problem [...] of this encounter (statuses as of 04/23/2022) [facility] History of Past illness Narrative* Problem [...] of this encounter (statuses as of 04/30/2022) [facility] History of Past illness Narrative* Problem [...] of this encounter (statuses as of 05/11/2022) [facility] History of Past illness Narrative* Problem [...] of this encounter (statuses as of 05/23/2022) [facility] History of Past illness Narrative* Problem [...] of this encounter (statuses as of 06/24/2022) [facility] History of Past illness Narrative* Problem [...] of this encounter (statuses as of 06/24/2022) [facility] History of Past illness Narrative* Problem [...] of this encounter (statuses as of 06/26/2022) [facility] History of Past illness Narrative* Problem [...] of this encounter (statuses as of 07/18/2022) [facility] of Past illness Narrative* Problem [...] of this encounter (statuses as of 10/29/2022) [facility] History of Past illness Narrative* Problem [...] of this encounter (statuses as of 11/08/2022) [facility] History of Past illness Narrative* Problem [...] of this encounter (statuses as of 11/08/2022) [facility] History of Past illness Narrative* Problem [...] of this encounter (statuses as of 12/13/2022) [facility]03-01-2019 Evaluation note* Diagnosis Onset Date Resolution Status Admit Date Stroke-like symptoms acute January 19, 2025 6:07am Essential hypertension chronic Ju ne 2024 6:07am H/O aortic valve replacement October, chroni c January 19, 2025 6:07am Hyperlipidemia chronic January 19, 2025 6:07am H/O coronary artery bypass surgery October, resolved January 19, 2025 6:07[address] [facility] Work Phone: [phone] Evaluation note* Diagnosis Onset Date Resolution Status Admit Date H/O coronary artery bypass surgery October, resolved January 19, 2025 6:07am Essential hypertension inactive Ju 2024 6:07am H/O aortic valve replacement October, inacti ve January 19, 2025 6:07am Hyperlipidemia inactive January 19, 2025 6:07am Parkinson's disease inactive January 19, 2025 6:07am Stroke-like symptoms inactive January 19, 2025 6:07am [facility] Work Phone: Discharge summary Author Leti [facility] Note Date/Time January 19, 2025 6:12 pm [facility] Medical Records Department [address] [place] [id number] Instructions for Home/Discharge Instructions 01/19/25 1805 MR#: [id number] Acct: [id number] Name: SONIYA COOLEY Rep #:[id number] : 1940 84 From: Leti Lu [...] 25 mcg tablet 25 mcg PO DAILY jrhrmoky-stw-GN-lycopen-lutein 1 EACH tablet 1 ea PO DAILY [...] Recorder Preventi (Urgent) Timeframe: 1 Day Facility: [facility] - Location: Cardiovascular Services Ordered By: [...] Fournier DO; Tia Mcleod MD ~ Signed [facility] Work Phone: Discharge summary Author Leti Lu [facility] Note Date/Time January 19, 2025 6:[address] [facility] Medical Records Department [address] [place] [address] Discharge Summary 01/19/251811 MR#: [id number] Acct: [id number] Name: SONIYA COOLEY Rep #:[id number] : 1940 84 From: Leti Lu DO PCP: Dr. Oniel Francis MD Status:ADM DARI Location: [place] [address] Providers Date of Admission: 01/19/25 Date of [...] #5 hyperlipidemia Medications at Discharge Home Medications htpiopto-mft-nkmwo acid 0.4 mg-lycopene 300 mcg-lutein 250 mcg [...] was seen in the emergency room at [facility] after being brought in by his [...] [facility]. Patient had a CT of the [...] (Auto) 36.7 L, Lymph % (Auto) 48.3 H,[place] % (Auto) 10.0, Eos % (Auto) 4.3, [...] Clarity Clear, Urine pH 6.0, Ur Specific [place] 1.015, Urine Protein Negative, Urine Glucose (UA) [...] evidence for acute brain abnormality. Reading Location: [place] [address] Head/Neck CTA 01/19/25 04:03 IMPRESSION: Atherosclerosis without high-grade stenosis. Reading Location: [place] [address] Chest X-Ray 01/19/25 04:45 IMPRESSION: Mild bilateral basilar atelectatic pulmonary changes. Reading Location: [place] [address] Brain MRI 01/19/25 09:20 IMPRESSION: Sinus disease is visible in the floor of the right maxillary sinus. There is fluid signal in a portion of the right mastoid air cells, with mastoiditis. No acute intracranial abnormality is identified. [facility] Echocardiogram 01/19/25 13:33 Interpretation Summary The left [...] 25 mcg tablet 25 mcg PO DAILY dkgvbhqa-met-DU-lycopen-lutein 1 EACH tablet 1 ea PO DAILY Patient Comments: supplement cyanocobalamin (vitamin B-12) 500 mcg tablet, sublingual 1,000 mcg PO DAILY Patient Comments: supplement aspirin 81 mg tablet,chewable 81 mg PO DAILY Patient Comments: heart [facility] cholecalciferol (vitamin D3) 25 mcg (1,000 unit) [...] Recorder Preventi (Urgent) Timeframe: 1 Day Facility: [facility] - Location: Cardiovascular Services Ordered By: Dr. Leti Lu Referrals / Follow Up: Oniel Francis MD [Primary Care Provider] - See Referral Note (At next appointment time) Disposition Disposition (needs filled in before D/C Order can be placed): Home, Self Care Charges/Coding Visit Charges Inpatient E&M: 70508 Disch Hosp >30min 01/19/251816 <Electronically signed by Leti Lu DO> Cosigner Signature (if applicable): CC: Dr. Oniel Francis MD; Dr. Leti Lu DO~ Signed [facility] Work Phone: Discharge summary Author Ronn Olson [facility] Note Date/Time April 10, 2025 7:[address] [facility] Medical Records Department [address] [place] [address] Emergency Department Summary 04/10/25 MR#: [id number] Acct: [id number] Name: SONIYA COOLEY Rep #:[id number] : 1940 84 From: Ronn [place] PCP: Dr. Oniel Francis MD Status:REG ER Location: ED HPI History of Present Illness Chief Complaint: Abd Pain [facility] Medical History (Updated 03/24/25 @ 09:25 by [...] artery disease Atherosclerosis of coronary artery of 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 angina pectoris Essential hypertension Contusion of finger without damage to nail Laceration of finger of left hand without foreign body without damage to nail Hemorrhoids Shortness of breath Neck pain on left side Tingling and numbness left fingers Home Medications ?Medication ?Instructions ?Recorded ?Last Taken ?Type acetaminophen 500 mg tablet 1,000 mg PO TID PRN fever or pain 05/29/19 Unknown History aspirin 81 mg chewable tablet 81 mg PO DAILY PER 03/17/25 History Held on 04/07/25. Instructions: Resume on 04/21/25. carbidopa 25 mg-levodopa 100 mg 3 tab PO TID PARKINSON S 02/03/21 04/07/25 History tablet levothyroxine 25 mcg tablet 25 mcg PO [...] BLOOD THINNER 03/24/25 Unknown History Held on 04/07/25. Instructions: Resume on 04/21/25. nitroglycerin 0.4 mg sublingual 0.4 mg sublingual Q5M PRN CHEST 03/24/25 Unknown History tablet PAIN ezetimibe 10 mg tablet 10 mg PO DAILY 03/25/2509/29 History finasteride 5 mg tablet 5 mg PO QHS 03/25/25 5 History ciprofloxacin HCl 500 mg tablet 500 mg PO BID 7 days # 14 TABLETS 04/10/25 Unknown Rx Allergy/AdvReac Type Severity Reaction Status Date / [...] use type: does not use caffeine: No EXAM Physical Exam Const Vital Signs: 04/10/25 06:05 Temperature 97.7 F L Temperature Source Oral Pulse Rate 71 Respiratory Rate 20 H Blood Pressure 172/91 H Blood Pressure Mean 118 Pulse Ox 96 Oxygen Delivery Method Room Air MDM MDM MDM Narrative Medical decision making narrative: HISTORY OF PRESENT ILLNESS: Chief complaint: Lower abdominal pain 84-year-old male presents 3 days postop after transurethral resection of prostate here at [facility] by Dr. Jara of the local urologist. He states he has lower abdominal pain. This began yesterday. Notesdecreased urination. No sense of fullness in the lower abdomen. The patient's notes he got a Botox injection as well as a TURP. Notes bleeding has slowed down since the operation. Patient denies vomiting, fever. Denies falls. REVIEW OF SYSTEMS: Pertinent positives: Abdominal pain, decreased urination Pertinent negatives: As per HPI PHYSICAL EXAM: Nursing triage notes reviewed, Vital signs reviewed Constitutional: please see mdm HENT: MMM Eyes: Pupils equal round and reactive to light, Extraocular muscles intact Neck: No stridor, no JVD, full neck ROM Lungs: Clear to auscultation, No wheezing or rales. No increased work of breathing, no conversational dyspnea, no accessory muscle use, no nasal flaring. No respiratory distress noted Heart: Regular rate and rhythm, No murmurs, No rubs and No gallops, 2+ distal pulses (radial, femoral, posterior tibial) in all extremities Abdomen: Suprapubic TTP, suprapubic distention and fullness. But no rigidity, rebound or guarding, no obvious peritoneal signs, no palpable pulsatile abdominal masses, no auscultated abdominal bruit : No CVAT Extremities: No edema Neuro: No new focal neurological deficits, cranial nerves II through XII intact,5/5 strength in all present extremities. Intact sensation to light touch in all present extremities, 2+ reflexes bilateral patella tendons. Skin: No rash or lesions noted MEDICAL DECISION MAKING: Chief Complaint: please see HPI External records reviewed: Reviewed operative report by Dr. Jara. Patient underwent cystoscopy with injection of Botox in the bladder and transurethral resection of the prostate on 04/07/2025 Factors affecting care: BPH, overactive bladder, urge incontinence Social determinants of health: none History obtained from others: Consults: none initially likely will require urology consultation once workup iscomplete. MDM Narrative: The patient was initially hypertensive the blood pressure 172/91, he is afebrilehe is nontoxic-appearing. Exam with suprapubic TTP and fullness. Bladder scan revealed greater than 700 cc of urine in the bladder. Is consistent with urinary retention. Patient noted complete improvement in symptoms after Cárdenas catheter was placed. I considered the following differential diagnosis: Urinary retention, UTI, NAVDEEP I obtained a broad lab and imaging workup to further determine if the patient was suffering from a life-threatening etiology. Patient's clinical exam and history consistent with likely urinary retention. Opted to check the patient's kidney function, blood counts and place a Cárdenas catheter. Upon reassessment after Cárdenas catheter placement the patient noted complete improvement in symptoms. ALL IMAGES (IF OBTAINED) HAVE BEEN PERSONALLY REVIEWED AND INTERPRETED BY MYSELF. CBC with mild leukocytosis suggestive of systemic summation, no anemia BMP with no significant electrolyte abnormalities, no sign of endorgan hypoperfusion, there is slight renal insufficiency owing to recent surgery and urinary retention but no significant acute kidney injury or signs of renal failure. Urinalysis is pending at this time. Urine cultures pending at this time. Given recent bladder manipulation with TURP and Cárdenas catheter placement will give prophylactic ciprofloxacin. Gave strict return precautions for urinary retention. Gave close outpatient urology follow-up. The patient and/or family, caregivers express understanding. The patient and/orfamily, caregivers agrees with the plan. Shared decision making: I will have a discussion with the patient and or visitors regarding risk/benefits of further testing or admission. They will be made aware of of the risk/benefits inherent in this decision they will be given the opportunity to voice understanding. Total critical care time today provided was at least 0 minutes. This excludes separately billable procedures. Critical care time (if documented) is secondary to the patient having high probability of clinically significant/life threatening deterioration in the patient's condition which required my urgent intervention. Impression: 1. Acute abdominal pain 2. History of TURP 3. History of BPH Dispo: Pending lab and imaging evaluation This note was generated with [email or web address] dictation software. It may contain incorrectwords, spelling, and punctuation that were not noted in review of the chart prior to signing. Lab Data Labs: Laboratory Results - last 24 hr 04/10/25 04/10/25 06:12 06:30 WBC 12.8 H RBC 4.17 L Hgb 13.7 Hct 39.7 L MCV 95.2 H MCH 32.9 H MCHC 34.5 RDW Std Deviation 46.0 H RDW Coeff of Adrian 13.1 Plt Count 199 MPV 10.2 Immature Gran % (Auto) 0.500 Neut % (Auto) 74.8 H Lymph % (Auto) 15.0 L [place] % (Auto) 7.8 Eos % (Auto) 1.4 Baso % (Auto) 0.5 Absolute Neuts (auto) 9.6 H Absolute Lymphs (auto) 1.92 Nucleated RBC % 0 Sodium 136 Potassium 4.2 Chloride 103 Carbon Dioxide 19.7 L Anion Gap 13 BUN 29 H Creatinine 1.34 H Estim Creat Clear Calc 44.25 L Est GFR (MDRD) Non-Af 53 L BUN/Creatinine Ratio 21.9 H Glucose 166 H Calcium 9.7 Urine Color Cristiane Urine Clarity Sl. Cloudy Urine pH 6.0 Ur Specific [place] 1.015 Urine Protein 100 H Urine Glucose (UA) Normal Urine Ketones 5 H Urine Occult Blood 250 H Urine Nitrite Positive H Urine Bilirubin Negative Urine Urobilinogen Normal Ur Leukocyte Esterase 25 H Urine RBC 10-25 SEEN Urine WBC 0 SEEN Ur Squamous Epith Cells 0 SEEN Urine Bacteria 1+ Urine Mucus 0 SEEN Discharge Plan Triage Chief Complaint: Abd Pain Other Complaint: Male Pain/Injury ED Provider: Ronn Olson Dx/Rx/DC Orders Instructions: ED Urinary Retention, Female Prescriptions: New ciprofloxacin HCl 500 mg tablet 500 mg PO BID 7 Days Qty: 14 0RF No Action acetaminophen 500 mg tablet 1,000 mg PO TID PRN (Reason: fever or pain) carbidopa-levodopa 25-100 mg tablet 3 tab PO TID levothyroxine 25 mcg tablet 25 mcg PO DAILY aspirin 81 mg tablet,chewable 81 mg PO DAILY Patient Comments: heart [facility] clopidogrel [Plavix] 75 mg tablet 75 mg PO DAILY Patient Comments: Patient never started after TIA nitroglycerin 0.4 mg tablet, sublingual 0.4 mg [...] 0.4 mg capsule 0.8 mg PO QHS Primary Care Provider: Oniel Francis Referrals: Andi Jara MD [Med Staff - Active Staff] - Activity Restrictions/Additional Instructions: Thank you for trusting us with your care today! Your presentation is consistent with urinary retention. This is treated with Cárdenas catheter. Cárdenas cath remains in place until outpatient urology follow-up. Please take ciprofloxacin as prescribed until course is complete. Please take Tylenol (2 pills, 650 mg), ibuprofen (2 pills, 400 mg) every 6 hoursas needed for pain and fever control. Please return to the emergency department if your symptoms change or worsen. Please follow with Dr. Jara for further outpatient evaluation and management. Print Language: Algerian Disposition Disposition: Home, Self Care What to do if you have Problems For any increased pain, shortness of breath, bleeding, nausea or vomiting, chestpain, or any unexpected problems, contact your Primary Care Provider. Call [facility] ([phone]) or report to the closest Emergency Room. Call 911 if necessary. 04/10/25 0729 <Electronically signed by Ronn Olson DO> Cosigner Signature (if applicable): CC: Dr. Oniel Francis MD ~ Signed 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 [facility] Rash- Primary Rash and other nonspecific skin eruption [facility] Aortic valve replaced- Primary Heart valve replaced by other means [facility] Diagnosis Olecranon bursitis of right elbow- Primary Olecranon bursitis [facility] Diagnosis 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 Aortic valve replaced Heart valve replaced by other means Essential hypertension Unspecified essential hypertension Mixed hyperlipidemia Carotid stenosis, asymptomatic, bilateral Hyperlipidemia, unspecified hyperlipidemia type [facility] Diagnosis Essential hypertension- Primary Unspecified essential hypertension Mixed hyperlipidemia Elevated blood sugar Other abnormal glucose 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 Carotid stenosis, asymptomatic, bilateral Acquired hypothyroidism Unspecified hypothyroidism Vitamin D deficiency Unspecified vitamin D deficiency Obesity, Class I, BMI 30-34.9 Obesity, unspecified B12 deficiency Other B-complex deficiencies Viral URI with cough Acute upper respiratory infections of unspecified site Medication management Encounter for long-term (current) use of other medications [facility] Diagnosis Parkinson disease (HCC) Paralysis agitans [facility] Diagnosis 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 Aortic valve replaced Heart valve replaced by other means Essential hypertension Unspecified essential hypertension Mixed hyperlipidemia Carotid stenosis, asymptomatic, bilateral Hyperlipidemia, unspecified hyperlipidemia type [facility] Diagnosis Parkinson disease (HCC) Paralysis agitans [facility] Diagnosis Parkinson disease (HCC)- Primary Paralysis agitans Chronic idiopathic constipation Unspecified constipation 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 [facility] Diagnosis 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 Aortic valve replaced Heart valve replaced by other means Essential hypertension Unspecified essential hypertension Hyperlipidemia, unspecified hyperlipidemia type Mixed hyperlipidemia Carotid stenosis, asymptomatic, bilateral SAUCEDA (dyspnea on exertion) Other dyspnea and respiratory abnormality [facility] Diagnosis 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 Chronic idiopathic constipation Unspecified constipation Insomnia, unspecified type [facility] Diagnosis Acute cough- Primary Acute cough [facility] Diagnosis 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 Aortic valve replaced Heart valve replaced by other means Essential hypertension Unspecified essential hypertension Mixed hyperlipidemia Carotid stenosis, asymptomatic, bilateral Screening for ischemic heart disease Pre-operative cardiovascular examination [facility] Diagnosis URI, acute- Primary Acute upper respiratory infections of unspecified site X-ray of lung, abnormal Other nonspecific abnormal finding of lung field 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 Elevated blood sugar Other abnormal glucose Essential hypertension Unspecified essential hypertension Acquired hypothyroidism Unspecified hypothyroidism Vitamin D deficiency Unspecified vitamin D deficiency B12 deficiency Other B-complex deficiencies [facility] Diagnosis Medicare annual wellness visit, subsequent- Primary Routine general medical examination at a health care facility Advance directive discussed with patient Other specified counseling Arthritis of knee Unspecified arthropathy, lower leg Acquired hypothyroidism Unspecified hypothyroidism Elevated blood sugar Other abnormal glucose B12 deficiency Other B-complex deficiencies Mixed hyperlipidemia Essential hypertension Unspecified essential hypertension 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 Aortic valve replaced Heart valve replaced by other means Parkinson's disease with dyskinesia and fluctuating manifestations (HCC) BPH associated with nocturia Hypertrophy of prostate with urinary obstruction and other lower urinary tract symptoms (LUTS) [facility] Diagnosis 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 Chronic idiopathic constipation Unspecified constipation Insomnia, unspecified type [facility] Diagnosis Nocturia associated with benign prostatic hyperplasia- Primary [facility] Diagnosis Mixed hyperlipidemia- Primary Essential hypertension Unspecified essential hypertension B12 deficiency Other B-complex deficiencies Elevated blood sugar Other abnormal glucose Acquired hypothyroidism Unspecified hypothyroidism Vitamin D deficiency Unspecified vitamin D deficiency [facility] Diagnosis URI, acute Acute upper respiratory infections of unspecified site X-ray of lung, abnormal Other nonspecific abnormal finding of lung field [facility]* Diagnosis Acute cough [facility]* Diagnosis Bilateral leg pain- Primary Pain in limb Bilateral lower extremity edema Edema Benign localized prostatic hyperplasia with lower urinary tract symptoms (LUTS) Benign localized hyperplasia of prostate with urinary obstruction and other lower urinary tract symptoms (LUTS) [facility]* Diagnosis Essential hypertension- Primary Unspecified essential hypertension Mixed hyperlipidemia [facility]* Diagnosis Benign localized prostatic hyperplasia with lower urinary tract symptoms (LUTS) Benign localized hyperplasia of prostate with urinary obstruction and other lower urinary tract symptoms (LUTS) [facility]* Diagnosis Hyperlipidemia, unspecified hyperlipidemia type documented in this encounter [facility]* Diagnosis Hyperlipidemia, unspecified hyperlipidemia type documented in this encounter [facility]* Diagnosis Benign localized prostatic hyperplasia with lower urinary tract symptoms (LUTS) Benign localized hyperplasia of prostate with urinary obstruction and other lower urinary tract symptoms (LUTS) [facility]* Diagnosis 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 Aortic valve replaced Heart valve replaced by other means Mixed hyperlipidemia Essential hypertension Unspecified essential hypertension Carotid stenosis, asymptomatic, bilateral Hyperlipidemia, unspecified hyperlipidemia type SAUCEDA (dyspnea on exertion) Other dyspnea and respiratory abnormality documented in this encounter [facility]* Diagnosis 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 Aortic valve replaced [...] Sleep disturbance, unspecified [facility] Diagnosis Elevated hemoglobin A1c- Primary Other abnormal blood chemistry [facility]* Diagnosis Insomnia, unspecified type [facility] Diagnosis Acute URI- Primary Acute upper respiratory infections of unspecified site [facility] Diagnosis Benign localized prostatic hyperplasia with lower urinary tract symptoms (LUTS) Benign localized hyperplasia of prostate with urinary obstruction and other lower urinary tract symptoms (LUTS) [facility] Author Mik Kilgore [facility] Note Date/Time January 19, 2025 6:07 am [facility] Medical Records Department [address] [place] [id number] History & Physical Exam 01/19/25 0558 MR#: [id number] Acct: [id number] Name: SONIYA COOLEY Rep #:[id number] 3 : 1940 84 From: Mik Kilgore [...] or chills and/or nausea vomiting or diarrhea. [facility] Medical History (Updated 01/19/25 @ 05:[address] Tate Mcdonough, DO) Parkinson disease [...] artery disease Atherosclerosis of coronary artery of 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 angina pectoris Essential hypertension Contusion of finger without damage to nail Laceration of finger of left hand without foreign body without damage to nail Hemorrhoids Shortness of breath Neck pain on left side Tingling and numbness left fingers Home Medications ?Medication ?Instructions ?Recorded ?Last Taken ?Type ejnuwttk-iuy-ecado acid 0.4 1 ea PO DAILY 05/28/16 [...] (Auto) 36.7 L, Lymph % (Auto) 48.3 H,[place] % (Auto) 10.0, Eos % (Auto) 4.3, [...] Clarity Clear, Urine pH 6.0, Ur Specific [place] 1.015, Urine Protein Negative, Urine Glucose (UA) [...] evidence for acute brain abnormality. Reading Location: [place] [address] Head/Neck CTA 01/19/25 04:03 IMPRESSION: Atherosclerosis without high-grade stenosis. Reading Location: [place] [address] Chest X-Ray 01/19/25 04:45 IMPRESSION: Mild bilateral basilar atelectatic pulmonary changes. Reading Location: [place] [address] Assessment & Plan Assessment/Plan (1) H/O coronary [...] weight heparin Charges/Coding Visit Charges OBSV E&M: 29964 Observ/hosp same date L2 01/19/25 0607 <Electronically signed by Mik Kilgore MD> Cosigner Signature (if applicable): CC: Dr. Oniel Francis MD; Dr. Mik Kilgore MD~ Signed [facility] Work Phone: Hospital course Narrative No data available for this section [facility] Hospital Discharge instructions No data available for this section [facility] Hospital Discharge instructionsAdditional Instructions [facility]: [facility] Hospital Discharge instructionsAdditional Instructions Thank you for trusting us with your care today! Your presentation is consistent with urinary retention. This is treated with Cárdenas catheter. Cárdenas cath remains in place until outpatient urology follow-up. Please take ciprofloxacin as prescribed until course is complete. Please take Tylenol (2 pills, 650 mg), ibuprofen (2 pills, 400 mg) every 6 hours as needed for pain and fever control. Please return to the emergency department if your symptoms change or worsen. Please follow with Dr. Jara for further outpatient evaluation and management. [facility] Work Phone: Progress note No data available for this section [facility] Reason for referral (narrative)* Outpatient Procedure (Routine) - Authorized Specialty Diagnoses / Procedures Referred By Contac t Referred To [facility] Diagnoses Aortic valve replaced Procedures ECG COMPLETE ECG ROUTINE ECG W/LEAST 12 LDS W/I&R Marj Mackey MD [address] [place] [address] [facility] [address] [place] [address] Referral ID Status Reason Start Date Expiration Date Visits Requested Visits Authorized [id number] Authorized Auto-Generat ed Referral 04/23/2022 04/23/2023 1 1 T [facility] for referral (narrative)* Outpatient Procedure (Routine) - Authorized Specialty Diagnoses / Procedures Referred By Contac t Referred To Contact [facility] Diagnoses Carotid stenosis, asymptomatic, bilateral Procedures US CAROTID ARTERIES CLAUD[facility] DUPLEX SCAN EXTRACRANIAL ART COMPL BI STUDY Marj Mackey MD [address] [place] [address] [address] Referral ID Status Reason Start Date Expiration Date Visits Requested Visits Authorized [id number] Authorized Auto-Generat ed Referral 04/30/2022 08/04/2022 1 1 T [facility] [facility] Outpatient Procedure (Routine) - Authorized Specialty Diagnoses / Procedures Referred By Contac t Referred To Contact [facility] Diagnoses Carotid stenosis, asymptomatic, bilateral Procedures US CAROTID ARTERIES CLAUDY VAS LAB DUPLEX SCAN EXTRACRANIAL ART COMPL BI STUDY Marj Mackey MD [address] [place] [address] [address] Referral ID Status Reason Start Date Expiration Date Visits Requested Visits Authorized [id number] Authorized Auto-Generat ed Referral 06/23/2024 1 1 * Outpatient Procedure (Routine) - Authorized Specialty Diagnoses / Procedures Referred By Contac t Referred To Contact [facility] Diagnoses Aortic valve replaced SAUCEDA (dyspnea on exertion) Procedures ECHO ECHO TTHRC R-T 2D W/WOM-MODE COMPL SPEC&COLR D Marj Mackey MD [address] [place] [address] [address] [place] [address] Referral ID Status Reason Start Date Expiration Date Visits Requested Visits Authorized [id number] Authorized Auto-Generat ed Referral 3 06/23/2024 1 1 * Outpatient Procedure (Routine) - Pending Review Specialty Diagnoses / Procedures Referred By Contac t Referred To Contact [facility] Diagnoses Essential hypertension Hyperlipidemia, unspecified hyperlipidemia type Procedures ECG COMPLETE ECG ROUTINE ECG W/LEAST 12 LDS W/I&R Marj Mackey MD [address] [place] [id number] [facility] [address] [address] Referral ID Status Reason Start Date Expiration Date Visits Requested Visits Authorized [id number] Pending Review Auto-Generat ed Referral 3 06/17/2024 1 1 [facility] for referral (narrative)* Outpatient Procedure (Routine) - Pending Review Specialty Diagnoses / Procedures Referred By Contac t Referred To Contact [facility] Diagnoses Screening for ischemic heart disease Procedures ECG COMPLETE ECG ROUTINE ECG W/LEAST 12 LDS W/I&R Marj Mackey MD [address] [place] [address] [address] Referral ID Status Reason Start Date Expiration Date Visits Requested Visits Authorized [id number] Pending Review Auto-Generat ed Referral 12/18/2023 12/17/2024 1 1 [facility] for referral (narrative)* Diagnostic Procedure Only (Urgent) - Authorized Specialty Diagnoses / Procedures Referred By Contac t Referred To Contact [facility] Diagnoses Bilateral leg pain Bilateral lower extremity edema Procedures US DVT LOWER BILATERAL DUP-SCAN XTR VEINS COMPLETE BILATERAL STUDY Zina Duran, CREDIT UNION MANAGER.[facility] [address] [place] [address] [facility] [address] Referral ID Status Reason Start Date Expiration Date Visits Requested Visits Authorized [id number] Authorized Auto-Generat ed Referral 05/07/2024 06/06/2025 1 1 [facility] for referral (narrative)* Outpatient Procedure (Routine) - Authorized Specialty Diagnoses / Procedures Referred By Contac t Referred [facility] Diagnoses 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 Work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 Layer Relationship Specialty Start Date End Date Oniel Francis MD [address] [facility] [place] [address] PCP - General Family Medicine 05/16/15 No, Referral Referring 10/17/18 Binder Layer Relationship Specialty Start Date End Date Oniel Francis MD [address] [facility] [address] PCP - General Family Medicine 05/16/15 No, Referral Referring 10/17/18 Binder Layer Relationship Specialty Start Date End Date Oniel Francis MD [address] [facility] [place] [address] PCP - General Family Medicine 05/16/15 No, Referral Referring 10/17/18 Binder Layer Relationship Specialty Start Date End Date Oniel Francis MD [address] [facility] [address] PCP - General Family Medicine 05/16/15 No, Referral Referring 10/17/18 Binder Layer Relationship Specialty Start Date End Date Oniel Francis MD [address] [facility] [place] [address] PCP - General Family Medicine 05/16/15 No, Referral Referring 10/17/18 Binder Layer Relationship Specialty Start Date End Date Oniel Francis MD [address] [facility] [place] [address] PCP - General Family Medicine 05/16/15 No, Referral Referring 10/17/18 Binder Layer Relationship Specialty Start Date End Date Oniel Francis MD [address] [facility] [address] PCP - General Family Medicine 05/16/15 No, Referral Referring 10/17/18 Binder Layer Relationship Specialty Start Date End Date Oniel Francis MD [address] [facility] [address] PCP - General Family Medicine 05/16/15 No, Referral Referring 10/17/18 Binder Layer Relationship Specialty Start Date End Date Oniel Francis MD [address] [facility] [address] PCP - General Family Medicine 05/16/15 No, Referral Referring 10/17/18 Binder Layer Relationship Specialty Start Date End Date Oniel Francis MD [address] [facility] [address] PCP - General Family Medicine 05/16/15 No, Referral Referring 10/17/18 Binder Layer Relationship Specialty Start Date End Date Oniel Francis MD [address] [facility] [address] PCP - General Family Medicine 05/16/15 No, Referral Referring 10/17/18 Binder Layer Relationship Specialty Start Date End Date Oniel Francis MD [address] [facility] [address] PCP - General Family Medicine 05/16/15 No, Referral Referring 10/17/18 Binder Layer Relationship Specialty Start Date End Date Oniel Francis MD [address] [facility] [address] PCP - General Family Medicine 05/16/15 No, Referral Referring 10/17/18 Binder Layer Relationship Specialty Start Date End Date Oniel Francis MD [address] [place] [address] PCP - General Family Medicine 05/16/15 No, Referral Referring 10/17/18 Binder Layer Relationship Specialty Start Date End Date Oniel Francis MD [address] [place] [address] PCP - General Family Medicine 05/16/15 No, Referral Referring 10/17/18 Zina Duran APRN.CRYPTOGRAPHIC CLERK [address] [place] [address]31 [facility] 07/11/24 Ella Valdovinos PA-C [address] [place] [address] [facility] Binder Layer Relationship Specialty Start Date End Date Oniel Francis MD [address] [place] [address] PCP - General Family Medicine 05/16/15 No, Referral Referring 10/17/18 Zina Duran APRN.CRYPTOGRAPHIC CLERK [address] [place] [address] 633[address] [facility] 07/11/24 Ella Valdovinos PA-C [employer] [place] [address] [facility] 07/11/24 Binder Layer Relationship Specialty Start Date End Date Oniel Francis MD [address] [place] [address] PCP - General Family Medicine 05/16/15 No, Referral Referring 10/17/18 Zina Duran, ANGIE.CRYPTOGRAPHIC CLERK [address] [place], [place] 385875 [phone] [facility] 07/11/24 Ella Valdovinos PA-C [address] [place], [place] 6612[address] [phone] [facility] 07/11/24 Binder Layer Relationship Specialty Start Date End Date Oniel Francis MD [address] [place] [address] PCP - General Family Medicine 05/16/15 No, Referral Referring 10/17/18 Zina Duran, ANGIE.CRYPTOGRAPHIC CLERK [address] [place] [address] [facility] 07/11/24 Ella Valdovinos PA-C [address] [place] [address] [facility] 07/11/24 Binder Layer Relationship Specialty Start Date End Date Oniel Francis MD [address] [place] [address] PCP - General Family Medicine 05/16/15 No, Referral Referring 10/17/18 Zina Duran APRN.CRYPTOGRAPHIC CLERK [address] [place], [place] 758424 [phone] [facility] 07/11/24 Ella Valdovinos PA-C [address] [place] [address] [facility] 07/11/24 Binder Layer Relationship Specialty Start Date End Date Oniel Francis MD [address] [place], [place] 0399[address] PCP - General Family Medicine 05/16/15 No, Referral Referring 10/17/18 Zina Duran, ANGIE.CRYPTOGRAPHIC CLERK [address] [place] [address] [phone] [facility] 07/11/24 Ella Valdovinos PA-C [address] [place] [address] [facility] 07/11/24 Binder Layer Relationship Specialty Start Date End Date Oniel Francis MD [address] [place] [address] PCP - General Family Medicine 05/16/15 No, Referral Referring 10/17/18 Zina Duran, ANGIE.CRYPTOGRAPHIC CLERK [address] [place] [address] [facility] 07/11/24 Ella Valdovinos PA-C [address] [place] [address] [facility] 07/11/24 Binder Layer Relationship Specialty Start Date End Date Oniel Francis MD [address] [place] [address] PCP - General Family Medicine 11/09/24 No, Referral Referring 10/17/18 Zina Duran, CREDIT UNION MANAGER.CRYPTOGRAPHIC CLERK [address] [place] [address] [phone] [facility] 07/11/24 Ella Valdovinos PA-C [address] [place] [address] [facility] 07/11/24 Team Status: Active Member Role Status [...] Provider Active S tart: January 19, 2025 Binder Layer Relationship Specialty Start Date End Date Oniel Francis MD [address] [place] [address] PCP - General Family Medicine 11/09/24 No, Referral Referring 10/17/18 Zina Duran APRN.CRYPTOGRAPHIC CLERK [address] [place] [address] [phone] [facility] 01/04/25 Ella Valdovinos PA-C [address] [place] [address] [facility] 01/04/25 Binder Layer Relationship Specialty Start Date End Date Oniel Francis MD [address] [place] [address] PCP - General Family Medicine 11/09/24 No, Referral Referring 10/17/18 Zina Duran APRN.CRYPTOGRAPHIC CLERK [address] [place] [address] [facility] 01/04/25 Ella Valdovinos PA-C [address] [place] [address] 31577 [facility] 01/04/25 Binder Layer Relationship Specialty Start Date End Date Oniel Francis MD [address] [place] [address] PCP - General Family Medicine 11/09/24 No, Referral Referring 10/17/18 Zina Duran, ANGIE.CRYPTOGRAPHIC CLERK [address] [place] [address] [phone] [facility] 01/04/25 Ella Valdovinos PA-C [employer] [place] [address] [facility] 01/04/25 Binder Layer Relationship Specialty Start Date End Date Oniel Francis MD [address] [place] [address] PCP - General Family Medicine 11/09/24 No, Referral Referring 10/17/18 Zina Duran APRN.CRYPTOGRAPHIC CLERK [address] [place] [address] [facility] 01/04/25 Ella aVldovinos PA-C [address] [place] [address] 520[address] [facility] 01/04/25 Binder Layer Relationship Specialty Start Date End Date Oniel Francis MD [address] [place] [address] PCP - General Family Medicine 11/09/24 No, Referral Referring 10/17/18 Zina Duran APRN.CRYPTOGRAPHIC CLERK [address] [place] [address] 97[address] [facility] 01/04/25 Ella Valdovinos PA-C [address] [place] [address] 9[address] [facility] 01/04/25 Binder Layer Relationship Specialty Start Date End Date Oniel Francis MD [address] [place] [address] PCP - General Family Medicine 11/09/24 No, Referral Referring 10/17/18 Zina Duran APRN.CRYPTOGRAPHIC CLERK [address] [place] [address] 70268 [facility] 01/04/25 Ella Valdovinos PA-C [address] [place] [address] 56553 [facility] 01/04/25 Binder Layer Relationship Specialty Start Date End Date Oniel Francis MD [address] [place] [address] 20192 PCP - General Family Medicine 11/09/24 No, Referral Referring 10/17/18 Zina Duran APRN.CRYPTOGRAPHIC CLERK [address] [place], [place] 157581 [facility] 01/04/25 Ella Valdovinos PA-C [address] [place], [place] 192111 [facility] 01/04/25 Team Status: Active Member Role/Relationship [...] February 23, 2025 End: February 23, 2025 Binder Layer Relationship Specialty Start Date End Date Oniel Francis MD [address] [place] [address] PCP - General Family Medicine 11/09/24 No, Referral Referring 10/17/18 Zina Duran, ANGIE.CRYPTOGRAPHIC CLERK [address] [place] [address] [facility] 01/04/25 Ella Valdovinos PA-C [address] [place] [phone] [facility] 01/04/25 Binder Layer Relationship Specialty Start Date End Date Oniel Francis MD [address] [place] [address] PCP - General Family Medicine 11/09/24 No, Referral Referring 10/17/18 Zina Duran APRN.CRYPTOGRAPHIC CLERK [address] [place] [address] [facility] 01/04/25 Ella Valdovinos PA-C [address] [place] [phone] [facility] 01/04/25 Team Status: Active Member Role/Relationship Status [...] April 07, 2025 End: April 08, 2025 Team Status: Inactive Member Role/Relationship Status Dates Dr. Oniel Francis MD Primary Care Provider Active Start: April 10, 2025 End: April 10, 2025 Dr. Ronn Olson DO Emergency Provider Active Start: April 10, 2025 End: April 10, 2025 Goals (unrecognized section and content) Goals [...] BE BASED ON THE PRIMARY CLINICAL RECORDS. [employer] provides no warranty or guarantee of the accuracy or completeness of information in this document.
[2025-04-10 20:26] LABS: Color, Urine Brown (Yellow); Glucose, Dipstick Normal (Normal); Ketone-Dipstick 5 mg/dl (Negative); Leukocyte Esterase-Dipstick 100 /ul (Negative); Nitrite-Dipstick Positive (Negative); Occult Blood-Urine 250 /ul (Negative); Protein-Dipstick 100 mg/dl (Negative); Specific Gravity, Urine 1.010 (1.002-1.030); Urine Bilirubin Dipstick Negative (Negative)
[2025-04-10 20:34] LABS: Red Blood Cells-Urine 10-25 SEEN /hpf (0-5); Squamous Epithelial Cells - UA 0-5 SEEN /hpf (0-5)
[2025-04-10 20:43] LABS: Anion Gap 14 (5-15); BUN 25 mg/dL (4-19); BUN/Creat Ratio 26.9 RATIO (10-20); Calcium,Total 9.6 mg/dL (7.6-11.0); Carbon Dioxide 19.9 mmol/L (21.0-32.0); Chloride 105 mmol/L (98-108); Estimated Creatinine Clearance 64.56 ml/min (50-250); Glucose 120 mg/dL (70-99); Potassium 3.8 mmol/L (3.3-5.1)
[2025-04-10 20:47] VITALS: BP 169/83; PULSE 75; RESP 20; O2SAT 92
[2025-04-10 20:52] VITALS: BP 169/83; PULSE 75; RESP 20; TEMP 36.7; O2SAT 92
== END 2025-04-10 20:58 | disposition home or self-care (01) ==
PROVIDERS: Emergency Provider Surgery; PCP Family Medicine; Visit Provider Surgery
DX: N39.0 Urinary tract infection, site not specified (principal); I10 Essential (primary) hypertension; R33.9 Retention of urine, unspecified; E78.5 Hyperlipidemia, unspecified; R31.9 Hematuria, unspecified; I25.10 Atherosclerotic heart disease of native coronary artery without angina pectoris; Z79.899 Other long term (current) drug therapy; Z98.890 Other specified postprocedural states; D72.829 Elevated white blood cell count, unspecified
CPT/HCPCS: 80048; 81001; 85025; 87086; 99284; A4216

== ENCOUNTER → 2025-07-30 | Outpatient (CLI) | payer MEDICARE, SELFPAY ==
--- OUTSIDE RECORDS SUMMARY | 2025-07-30 20:01 | XMS RPT_ITS | CCD ---
Author Organization [facility] Care Team Providers Care Nursing Clinical Director Name Role Phone KIZZY BAILEY Attending Unavailable [...] Care Physician Merritt PT, Amy Unavailable Unavailable DR DEAN CALDWELL MD Attending ONIEL Camarillo MD Primary Care Unavailable JAVI BARTH, DR DEAN Abbott Attending UnavailONIEL Doe MD Primary Care Unavailable JAVI BARTH, DR DEAN Abbott Attending UnavailONIEL Doe MD Primary Care Unavailable DR DEAN CALDWELL MD Admitting Unavailab AMY [employer] Unavailable Bree ADAMS.Cristal DISLA Unavailable Ella Valdovinos PA-C Unavailable Oniel Francis MD Primary Care Provider Dr. Oniel Francis MD Primary Care Provider [phone] Dr. Aramis Larson MD Attending Provider Dr. [...] Bonifacio BARTH, Dr. Fiore Other Provider [phone] Laura BARTH, Dr. Mcnally Other Provider Christine BARTH, Dr. Neal Other Provider Pawan BARTH, Dr. Foote Other Provider Unavailable Harsha BARTH, Yousef Other Provider Unavailable Bree ADAMS.WAREHOUSE SHIPPING ASSOCIATE, Cristal Unavailable Bonifacio AGUILAR, Ella Unavailable TereletsDr. Leti coleman DO Referring Provider Estefani BARTH, Dr. Andi Jaramillo Attending Provider [phone] Estefani BARTH, Dr. Andi Jaramillo Referring Provider Estefani BARTH, Dr. Andi Jaramillo Admit Provider Dr. Ronn Olson DO Emergency Provider [phone] Kirk ARMIJO, Dr. Fraire Emergency Provider Tito, Oniel Primary Care Unavailable Cristal Giron Referring Unavailable Cristal Giron Attending Unavailable Tito, Oniel Primary Care Unavailable Leti Lu Attending Unavailable Mik Kilgore Admitting Unavailable Mik Kilgore [...] [employer] Unavailable Tia Mcleod Consulting Unavailable Leti Lu Attending Unavailable Leti Lu Referring Unavailable Tito, Oniel Primary Care Unavailable Tito, Oniel Primary Care Unavailable Andi Jara Attending Unavailable Andi Jara Referring Unavailable Tito, Oniel Primary Care Unavailable Ronn Olson Attending Unavailable Tito, Oniel Primary Care Unavailable Andi Jara Admitting Unavailable Andi Jara Attending Unavailable Andi Jara Referring Unavailable Tito, Oniel Primary Care Unavailable Juno Bradley Attending UnavailLeti Ross Referring Unavailable Aramis Larson Attending Unavailable Tito, Oniel Primary Care Unavailable Tito, Oniel Primary Care Unavailable Aramis Larson Attending Unavailable Marsha Aramis Attending Unavailable Tito, Oniel Primary Care Unavailable Tito, Oniel Primary Care Unavailable Kilgore, Mik Attending Unavailable MARJ MACKEY Referring Unavailable TITO, ONIEL A Primary Care Unavailable TITO, ONIEL A Attending Unavailable TITO, ONIEL A Primary Care Unavailable ELLA VALDOVINOS Referring Unavailable TITO, ONIEL A Primary Care Unavailable TITO, ONIEL A Primary Care Unavailable LETI RODRIGUEZ Attending Unavailable ABBY PATE Attending Unavailable ABBY PATE Referring Unavailable TITO, ONIEL A Primary Care Unavailable MARJ MACKEY Attending Unavailable TITO, ONIEL A Primary Care Unavailable TITO, ONIEL A Primary Care Unavailable MARJ MACKEY Attending Unavailable MARJ MACKEY Referring Unavailable TITO, ONIEL A Primary Care Unavailable MARJ MACKEY Referring Unavailable TITO, ONIEL A Primary Care Unavailable ABBY PATE Attending Unavailable ABBY PATE Referring Unavailable TITO, ONIEL A Primary Care Unavailable Allergies Allergy Classification Reported Allergen(s) Allergy Type Date of Onset Reaction(s) Facility Iodine (and Iodine containting drugs) (2 sources) Iodine Drug Allergy 3 Other: See [facility] Penicillins (antibiotic) (2 sources) Penicillin G Drug Allergy 3 [facility] (20 sources) Iodine; Translations: [IODINE] Drug Allergy 3 Other: See Comments [facility] Repository (20 sources) Penicillin; Translations: [PENICILLIN G] Drug Allergy 3 [facility] Repository (3 sources) Contrast media; Translations: [iodinated radiocontrast agents] Allergy to substance Hypotension [facility] (3 sources) Penicillin; Translations: [penicillin] Drug Allergy Rash [facility] (7 sources) Penicillins Allergy to substance 1 [facility] (1 source) Penicillins Drug allergy (disorder) 5 [facility] Repository Medications Current Medications Medication Drug Class(es) Dates Sig (Normalized) Sig (Original) acetaminophen 500 mg oral capsule (20 sources) Start: 02-19-2024 End: 03-04-2024 take 1 capsule by mouth once daily acetaminophen 500 mg oral capsule Dose : 1,000 mg = 2 cap(s), Oral, TID, PRN for pain, not to exceed 3000 mg/day, # 100 cap(s), 0 Refill(s), 03/04/24 8:41:00 AM EDT, Pharmacy: [facility]/pharmacy #[id number], 170.2, cm, 02/18/24 17:02:00 [...] on above: Take 3 tablets by mo [facility] three times daily. TAKE 3 TABLETS 3 GUSTAVO ES A DAY ciprofloxacin 500 mg oral tablet (2 sources) Quinolone Antimicrobial Start: 04-10-20 take 1 tablet by mouth twice daily Ciprofloxacin Hcl 500 mg tablet Active 500 mg PO TWICE A DAY 14 7 0 April 10, 2025 12:00am clopidogrel 75 mg oral tablet (20 sources) P2Y12 Platelet Inhibitor Start: 01-20-20 End: 03-24-20 take 1 tablet by mouth once daily clopidogrel (PLAVIX) 75 mg tablet Take 1 tablet by mouth once daily. 90 tablet 1 02/23/2025 Active SENOKOT-S (8 sources) Start: 02-19-20 Senokot S Dose = 2 tab(s), Oral, [...] tablet (1 source) Histamine-2 Receptor Antagonist Start: 4 Pepcid 20 mg oral tablet Dose : 20 mg = 1 tab(s), Oral, qDay, # 30 tab(s), 0 Refill(s), Pharmacy: [facility]/pharmacy #[id number], 170.2, cm, 02/18/24 17:02:00 EDT, Height, kg, 02/18/24 17:02:00 EDT, Dosing Weight Start Date: 02/19/24 Status: Ordered finasteride 5 mg oral tablet (5 sources) 5-alpha Reductase Inhibitor Start: 5 take 1 tablet by mouth once daily finasteride (PROSCAR) 5 mg tablet Take 1 tablet by mouth once daily. 02/23/2025 Active Fish Oils (3 sources) Start: 4 Fish Oil 1000 mg oral capsule Dose : 1,000 mg = 1 cap(s), Oral, qDay, # 90 cap(s), 0 Refill(s) Start Date: 01/27/24 Status: Ordered levothyroxine sodium 0.025 mg oral tablet (20 sources) l-Thyroxine Start: 4 Synthroid 25 mcg (0.025 mg) oral tablet [...] 1 tablet by filemon th once daily. Take on empty stomach. For thyroid. mometasone furoate 1 mg/ml topical cream (5 sources) Corticosteroid Start: 12-26-19 End: 12-04-19 mometasone (ELOCON) 0.1 % cream Apply to areas twice a day. On for 4 days and off for 3 days. Repeat as needed. 15 g 1 12/25/2022 12/04/2023 Active Comment on above: Apply to areas twice a day. On for 4 days and off for 3 days. Repeat as needed. Multivitamin preparation (3 sources) Start: 01-27-20 take [...] (20 sources) Nitrate Vasodilator Start: 07-03-20 End: 03-24-20 Nitroglycerin 0.4 mg tablet, sublingual Discontinued 0 [...] 0 Refill(s), 02/26/24 8:43:00 AM EDT, Pharmacy: [facility]/pharmacy #[id number], Status post total left knee replacement, 170.2, cm, 02/18/24 17:02:00 EDT, Height, 88, kg, 02/18/24 17:02:00 EDT, Dosing Weight Start Date: 02/19/24 Stop Date: 02/26/24 Status: Ordered perflutren lipid microspheres 1.3 mL in NaCl (PF) 0.9% 10 mL injection (DEFINITY) (20 sources) Start: 3 End: 5 perflutren lipid microspheres 1.3 mL in NaCl (PF) 0.9% 10 mL injection (DEFINITY) 24 hr propranolol hydrochloride 80 mg extended release oral capsule (20 sources) beta-Adrenergic Parth Start: 5 take 1 capsule by mouth every twenty-four [...] DVT, # 13 tab(s), 0 Refill(s), Pharmacy: [facility]/pharmacy #[id number], 170.2, cm, 02/18/24 17:02:00 [...] tablet (20 sources) Vitamin B12 Start: 05-29-2019 End: 04-10-2025 take 2 tablets by mouth once daily [...] tongue once daily. Take 2 tablets by [facility] once daily. Vitamin B12 500 [...] Drug Class(es) Dates Sig (Normalized) Sig (Original) cholecalciferol 0.025 mg oral tablet (20 sources) Vitamin D Start: 02-03-2021 End: 04-10-2025 take 1 tablet by mouth twice daily Cholecalciferol (Vitamin D3) 25 mcg (1,000 unit) tablet Discontinued 2000 U PO TWICE A DAY February 03, 2021 8:49am April 10, 2025 6:10am SUPP Start: 05-29-2019 End: 02-03-2021 take 1 [...] on above: Take 2 tablets by mo uth once daily. clindamycin 150 mg oral capsule (20 sources) Lincosamide Antibacterial Start: 02-04-20 End: 01-20-20 take 4 capsules by mouth once as needed Clindamycin Hcl 150 mg capsule Discontinued 600 mg PO ONCE as needed February 03, 2021 12:00am January 19, 2025 4:08am Start: 12-29-2019 clindamycin (C LEOCIN) 150 mg capsule Take 4 tabs 30-60 min before dental procedures. 4 capsule 3 12/29/2019 Active Comment on above: Take 4 tabs 30-60 mi n before dental procedures. fluticasone propionate 0.05 mg/actuat metered dose nasal spray (20 sources) Corticosteroid Start: 05-29-2019 End: 04-10-2025 Fluticasone Propionate (Allergy Relief (Fluticasone)) 50 mcg/actuation spray,suspension Discontinued 1 NMA INTRANASAL DAILY as needed for nasal congestion February 03, 2021 8:50am April 10, 2025 6:11am Start: 06-20-2018 End: 02-26-2025 take 1 spray(s) by mouth once daily fluticasone (FLONASE) 50 mcg/actuation nasal spray Use 1 spray in each nostril once daily. Rinse mouth after use. 1 each 5 02/26/2025 02/26/2025 Discontinued Comment on above: Use 1 [place] in each nostril once daily. Rinse mouth after use. furosemide 40 mg oral tablet (20 sources) Loop Diuretic Start: 0 End: 5 take 1 tablet by mouth once daily Furosemide (Lasix) 40 mg tablet Discontinued 40 mg PO DAILY 90 August 10, 2021 5:46pm January 19, 2025 4:08am Comment on above: Take 1 tablet by filemon th once daily. Per cardio 24 hr isosorbide mononitrate 30 mg extended release oral tablet (7 sources) Nitrate Vasodilator Start: 6 End: 9 [...] sources) beta-Adrenergic Parth Start: 0 End: 5 Metoprolol Tartrate 50 mg tablet Discontinued 0 .ROUTE .COMPLEX 180 3 December 17, 2022 8:32am March 24, 2025 9:11am TAKE 1 TABLET TWICE A DAY Start: 06-03-2019 End: 12-22-2019 take 1 tablet [...] by filemon th two times a day. Orcwddsh-Pew-Lv-Lycope n-Lutein 1 EACH tablet (7 sources) Start: 05-28-2016 End: 04-10-2025 Svkgojym-Sia-Kf-Lycopen-Luna tein 1 EACH tablet Discontinued 1 NMA PO DAILY May 28, 2016 12:00am April 10, 2025 6:11am SUPP Start: 05-28-2016 Tchvczog-Amg-U f-Vluigay-Brwszv 1 EACH tablet Active 1 NMA PO DAILY May 28, 2016 12:00am SUPP Start: 05-28-2016 Acibpuiz-Tmj-Z g-Xbeilpa-Eqwwdi 1 EACH tablet Active 1 NMA PO DAILY May 28, 2016 12:00am [place]-3 Fatty Acids-Fish Oil 1 EACH capsule (7 sources) Start: 05-28-2016 End: 01-19-2025 [place]-3 Fatty Acids-Fish Oil 1 EACH capsule Discontinued 1 NMA PO TWICE A DAY May 28, 2016 12:00am January 19, 2025 4:09am Start: 05-28-2016 [place]-3 Fatty Acids-Fish Oil 1 EACH capsule Active 1 NMA PO TWICE A DAY May 28, 2016 12:00am primidone 250 mg oral tablet (20 sources) Anti-epileptic Agent Start: 12-22-2019 End: 02-03-2021 [...] SLEEP warfarin sodium 10 mg oral tablet (7 sources) Vitamin K Antagonist Start: 05-28-2016 End: 05-29-2019 take 1 tablet by mouth once daily Warfarin 10 MG tablet Discontinued 10 mg PO DAILY May 28, 2016 12:00am May 29, 2019 2:01pm Problems Active Problems Problem Classification Problem Date Documented Da te Episodic/Chronic Abdominal pain (1 source) Unspecified abdominal pain; Translations: [Unspecified abdominal pain] Onset: 04-15-2025 Episodic Complication of device; implant or graft (14 sources) Prosthetic aortic valve regurgitation; Translations: [Other specified complication of cardiac prosthetic devices, implants and grafts, initial encounter] 12-19-2019 Episodic Coronary atherosclerosis and other heart disease (20 sources) Coronary atherosclerosis; Translations: [Atherosclerotic heart disease of [place] coronary artery without angina pectoris] Onset: 08-24-2015 [...] symptoms] Onset: 2006 Resolved: 02-08-2025 12-18-2018 Chronic Nutritional deficiencies (20 sources) Vitamin D deficiency; Translations: [Vitamin D deficiency, unspecified] Onset: 12-03-2013 11-06-2014 Chronic Occlusion or stenosis of precerebral arteries (20 sources) Bilateral stenosis of carotid arteries; Translations: [Occlusion and stenosis of bilateral carotid arteries] Onset: 10-29-2008 12-07-2020 Chronic Comment on above: LCEA Open wounds of extremities (7 sources) Laceration of finger without foreign body; Translations: [Laceration without foreign body of unspecified finger without damage to nail, initial encounter] 05-29-2019 Episodic Osteoarthritis (20 sources) Arthritis of knee; Translations: [Unilateral primary osteoarthritis, unspecified knee] Onset: 02-10-2024 02-10-2024 Chronic Other aftercare (20 sources) Patient encounter status; Translations: [Other press tender long goods (current) drug therapy] Onset: 12-17-2016 Resolved: 01-14-2020 04-12-2020 Episodic Other and unspecified benign neoplasm (7 sources) History of polyp of colon; Translations: [History of colonic polyps] 05-11-2020 Episodic Other circulatory disease (13 sources) History of transient ischemic attack; Translations: [Personal history of transient ischemic attack (TIA), and cerebral infarction without residual deficits] Onset: 02-08-2025 02-08-2025 Episodic Other connective tissue disease (1 source) Artificial knee joint present; Translations: [Presence of left artificial knee joint] Onset: 02-19-2024 Chronic Other connective tissue disease (1 source) Bursitis of olecranon of right elbow; Translations: [Olecranon bursitis, right elbow] Episodic Other connective tissue disease (1 source) Pain in bilateral legs; Translations: [Pain in right leg] 05-07-2024 Episodic Other connective tissue disease (12 sources) Neurological symptom; Translations: [Unspecified symptoms and signs involving the nervous system] 01-19-2025 Episodic Other gastrointestinal disorders (6 sources) Chronic [...] Onset: 02-19-2024 Episodic Other lower respiratory disease (7 sources) Dyspnea; Translations: [Dyspnea, unspecified] 01-08-2020 Episodic Other nervous system disorders (1 source) Other chronic pain; Translations: [Chronic bilateral low back pain without sciatica] Onset: 12-02-2024 Chronic Other nutritional; endocrine; and metabolic disorders (20 [...] Translations: [Insomnia, unspecified type] Onset: 03-24-2025 Episodic Superficial injury; contusion (7 sources) Contusion of finger; Translations: [Contusion of unspecified finger without damage to nail, initial encounter] 05-29-2019 Episodic Thyroid disorders (20 sources) Acquired hypothyroidism; Translations: [Hypothyroidism, unspecified] Onset: 03-16-2020 04-12-2020 Chronic Unclassified (20 sources) Active living will ; Translations: [Living will on file] Onset: 12-12-2021 12-12-2021 Unclassified (5 sources) At next appointment time Unclassified (1 source) Obesity, Class I, BMI 30-34.9; Translations: [Obesity, Class I, BMI 30-34.9] Onset: 12-17-2018 Unclassified (1 source) Chronic bilateral low back pain without sciatica; Translations: [Chronic bilateral low back pain without sciatica] Onset: 12-02-2024 Urinary tract infections (2 sources) Acute urinary tract infection; Translations: [Urinary tract infection, site not specified] Onset: 04-15-2025 04-10-2025 Episodic Past or Other Problems Problem Classification Problem Date Documented Da te Episodic/Chronic Administrative/social admission (20 sources) Advance directive discussed with patient; Translations: [Other specified counseling] Onset: 2 12-12-2021 Episodic Coagulation and hemorrhagic disorders (20 sources) Blood coagulation disorder; Translations: [Coagulation defect, unspecified] Onset: 9 Resolved: 9 10-30-2018 Chronic Coronary atherosclerosis and other heart disease (1 source) Presence of aortocoronary bypass graft; Translations: [Presence of aortocoronary bypass graft] Onset: 5 Episodic Diabetes mellitus without complication (20 sources) Hyperglycemia; Translations: [Hyperglycemia, unspecified] Onset: 6 Resolved: 9 04-12-2020 Episodic Genitourinary symptoms and ill-defined conditions (20 sources) Microscopic hematuria; Translations: [Other microscopic hematuria] Onset: 1 Resolved: 3 01-10-2021 Episodic Immunizations and screening for infectious disease (2 sources) Vaccination needed; Translations: [Encounter for immunization] Onset: 5 02-08-2025 Episodic Joint disorders and dislocations; trauma-related (20 sources) Tear of meniscus of knee; Translations: [Unspecified tear of unspecified meniscus, current injury, unspecified knee, initial encounter] Onset: 6 07-31-2021 Episodic Neoplasms of unspecified nature or uncertain behavior (12 sources) 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; Translations: [Neoplasm of uncertain behavior of bone and articular cartilage] Onset: 6 02-08-2025 Episodic Nutritional deficiencies (20 sources) Cobalamin deficiency; Translations: [Deficiency of other specified B group vitamins] Onset: 5 10-18-2014 Episodic Other aftercare (1 source) Other care home (current) drug therapy; Translations: [Medication management] Onset: 5 Episodic Other circulatory disease (20 sources) H/O: heart disorder; Translations: [Personal history of other diseases of the circulatory system] Onset: 3 06-19-2017 Episodic Other circulatory disease (1 source) Personal history of transient ischemic attack (TIA), and cerebral infarction without residual deficits; Translations: [Hx of transient ischemic attack (TIA)] Onset: 5 Episodic Other connective tissue disease (20 sources) [...] 7 01-28-2017 Episodic Other connective tissue disease (1 source) Unspecified symptoms and signs involving the nervous system; Translations: [Unspecified symptoms and signs involving the nervous system] Onset: 5 Episodic Other connective tissue disease (1 source) Pain in right leg; Translations: [Pain in right leg] Onset: 4 Episodic Other lower respiratory disease [...] Onset: 0 Resolved: 0 01-14-2020 Episodic Other nervous system disorders (1 source) Slurred speech; Translations: [Slurred speech] Onset: 5 Episodic Other non-traumatic joint disorders (20 sources) Hand joint stiff; Translations: [Stiffness of unspecified hand, not elsewhere classified] Onset: 0 12-31-2019 Episodic Other non-traumatic joint disorders (13 sources) Hip pain; Translations: [Pain in right hip] Onset: 5 12-02-2024 Episodic Other upper respiratory disease (20 sources) Seasonal allergy; Translations: [Other seasonal allergic rhinitis] Onset: 7 Resolved: 0 01-14-2020 Chronic Other upper respiratory infections (5 sources) Viral upper respiratory tract infection; Translations: [Acute upper respiratory infection, unspecified] Onset: 5 Episodic Phlebitis; thrombophlebitis and thromboembolism (20 sources) [...] of digestive organs] Resolved: 0 01-14-2020 Episodic Screening and history of mental health and substance abuse codes (2 sources) Encounter for screening examination for other mental health and behavioral disorders; Translations: [Encounter for screening for depression] Onset: 5 Episodic Spondylosis; intervertebral disc disorders; other back problems (20 sources) Neck pain; Translations: [Cervicalgia] Onset: 9 Resolved: 1 02-22-2011 Episodic Unclassified (7 sources) Tingling and numbness left fingers 05-29-2019 Results Test Name Value Interpretation Reference Range Facility [facility] 04-12-2025 CNOV Office Visit ([facility]) SONIYA COOLEY ([id number]) 1940 M Date Time Provider Department 04/12/25 11:00 AM MARJ MACKEY During your visit today, we recorded the following information about you: Pulse Blood pressure Weight 61/minute 118/68 85.3 kg Marj Mackey MD 04/12/2025 12:15 PM Signed [facility] Cardiology ([facility]) [address] [facility] [id number] OUTPATIENT VISIT DATE 04/12/2025 PRIMARY CARE PHYSICIAN: Oniel Francis [address] [place] [address] HISTORY OF PRESENT ILLNESS: Mr. Cooley is a 84 year old gentleman with a history of [...] He presents the office for routine follow-up. The patient experienced a TIA on January 19, characterized by slurred speech and inability to ambulate due to leg weakness. He was hospitalized and discharged with a prescription for Plavix, which he did not initiate due to upcoming eye surgery and TURP. He has not resumed aspirin since the TURP. He denies any palpitations or arrhythmias. A recent clinical research monitor showed unremarkable results. A carotid ultrasound last year and an echocardiogram earlier this year were both normal. He reports mild ankle edema but denies excessive salt intake. He underwent TURP last Saturday and subsequently required two ED visits due to severe pain necessitating catheter replacement and irrigation. He is scheduled for a trial of catheter removal tomorrow. He reports a recent episode of hypertension with a systolic BP over 200 mmHg, likely secondary to pain during the catheterization process. His LDL was 52 mg/dL in February. He and his both contracted COVID-19, delaying their follow-up visit. He has a history of two open-heart surgeries, the most recent being six years ago. PAST MEDICAL HISTORY Diagnosis Date Acquired hypothyroidism [...] on dc. Elevated fasting blood sugar 06/19/2016 Elevated hemoglobin A1c 06/19/2016 Essential hypertension 10/30/2018 Family history of colon cancer 01/31/2010 Family history of malignant neoplasm of gastrointestinal tract Family history of Parkinson's disease 12/11/2019 History of DVT (deep vein thrombosis) 06/19/2017 Patient was on coumadin at the time. spring History of rheumatic heart disease 10/09/2002 Hx of transient ischemic attack (TIA) 02/08/202501/2025 Living will on file 12/12/2021 DPA: Matthew () Meniscus tear 12/27/2015 Right, minimal. Seen Lamont hebert Microscopic hematuria 01/10/2021 Saw Luciano 02/2021 and felt further w/u not warranted. 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 Dunn Obesity, Class I, BMI 30-34.9 08/26/2018 Other proteinuri (more content not included)... Normal [facility] Urine Cultureon 04-12-2025 [facility] Burkholderia gladioli [place] Count <1000 Burkholderia gladioli: REACTION levoFLOXacin Islt OSWALDO 1 Meropenem Islt OSWALDO 1 S Pip+Tazo Islt OSWALDO <=4 S TMP SMX Islt OSWALDO <=20 S Normal [facility] Comment on above: Performed By: #### L 400.0001, M100.2200 #### [facility] [address] [place], [place], [id number] Urine Cultureon 04-11-2025 [facility] Culture exhibits no growth. Normal [facility] Comment on above: Performed By: #### L 400.0001 #### [facility] [address] [place], [place], [id number] Absolute lymphocyte countOrd ered By: Juno Bradley on 04-10-2025 Lymphocytes Auto (Unsp spec) [#/Vol] 2.81 10*3/uL 0.83-4.51 [facility] Absolute lymphocyte countOrd ered By: Ronn Olson on 04-10-2025 Lymphocytes Auto (Unsp spec) [#/Vol] 1.92 10*3/uL 0.83-4.51 [facility] Absolute neutrophil countOrd ered By: Juno Bradley on 04-10-2025 Neutrophils (Bld) [#/Vol] 8.4 10*3/uL High 2.0-7.7 [facility] Absolute neutrophil countOrd ered By: Ronn Olson on 04-10-2025 Neutrophils (Bld) [#/Vol] 9.6 10*3/uL High 2.0-7.7 [facility] Anion gap in Serum or Plasma Ordered By: Juno Bradley on 04-10-2025 Anion gap [Moles/Vol] 14 mmol/L 12-17 [facility] Anion gap in Serum or Plasma Ordered By: Ronn Olson on 04-10-2025 Anion gap [Moles/Vol] 13 mmol/L 12-17 [facility] Automated lymphocyte count a s percentage of total leukocytesOrdered By: Juno Bradley on 04-10-2025 Lymphocytes/100 WBC Auto (Unsp spec) 21.9 % [facility] Automated lymphocyte count a s percentage of total leukocytesOrdered By: Ronn Olson on 04-10-2025 Lymphocytes/100 WBC Auto (Unsp spec) 15.0 % Low [facility] BUN/creatinine ratioOrdered By: Juno Bradley on 04-10-2025 Urea nitrogen/Creatinine [Mass ratio] 26.9 mg/mg High 05-24 [facility] BUN/creatinine ratioOrdered By: Ronn Olson on 04-10-2025 Urea nitrogen/Creatinine [Mass ratio] 21.9 mg/mg High 05-24 [facility] Basic Metabolic Profile (BMP )on 04-10-2025 BUN/CRE 26.9 RATIO High 05-24 [facility] Comment on above: Performed By: #### L 100.0100, L500.2500 #### [facility] [address] [place], [address] Calcium [Mass/Vol] 9.6 mg/dL Normal 7.6-11.0 [facility] Comment on above: Performed By: #### L 100.0100, L500.2500 #### [facility] [address] [place], [address] Chloride [Moles/Vol] 105 mmol/L Normal 98-108 [facility] Comment on above: Performed By: #### L 100.0100, L500.2500 #### [facility] [address] [place], [address] CO2 [Moles/Vol] 19.9 mmol/L Low 21.0-32.0 [facility] Comment on above: Performed By: #### L 100.0100, L500.2500 #### [facility] [address] [place], [address] Creatinine [Mass/Vol] 0.92 mg/dL Normal 0.70-1.20 [facility] Comment on above: Performed By: #### L 100.0100, L500.2500 #### [facility] [address] [place], [address] ECRCL 64.56 ml/min Normal 50-250 [facility] Comment on above: Performed By: #### L 100.0100, L500.2500 #### [facility] [address] [place], [address] GAP 14 Normal 5-15 [facility] Comment on above: Performed By: #### L 100.0100, L500.2500 #### [facility] [address] [place], [address] GFR/1.73 sq M.predicted among non-blacks MDRD (S/P/Bld) [Vol rate/Area] 83 mL/min/{1.73_m2} Normal >60 [facility] Comment on above: Result Comment: mL/m in/1.73m2 CKD-EPI Creatinine Equation (2020) Performed By: #### L 100.0100, L500.2500 #### [facility] [address] [place], [address] Glucose [Mass/Vol] 120 mg/dL High 70-99 [facility] Comment on above: Performed By: #### L 100.0100, L500.2500 #### [facility] [address] [place], [address] Potassium [Moles/Vol] 3.8 mmol/L Normal 3.3-5.1 [facility] Comment on above: Performed By: #### L 100.0100, L500.2500 #### [facility] [address] [place], [address] Sodium [Moles/Vol] 139 mmol/L Normal 133-145 [facility] Comment on above: Performed By: #### L 100.0100, L500.2500 #### [facility] [address] [place], [address] Urea nitrogen [Mass/Vol] 25 mg/dL High 4-19 [facility] Comment on above: Performed By: #### L 100.0100, L500.2500 #### [facility] [address] [place], [address] BUN/CRE 21.9 RATIO High 10-20 [facility] Comment on above: Performed By: #### L 100.0100, L500.2500 #### [facility] [address] [place], [address] Calcium [Mass/Vol] 9.7 mg/dL Normal 7.6-11.0 [facility] Comment on above: Performed By: #### L 100.0100, L500.2500 #### [facility] [address] [place], [address] Chloride [Moles/Vol] 103 mmol/L Normal 98-108 [facility] Comment on above: Performed By: #### L 100.0100, L500.2500 #### [facility] [address] [place], [address] CO2 [Moles/Vol] 19.7 mmol/L Low 21.0-32.0 [facility] Comment on above: Performed By: #### L 100.0100, L500.2500 #### [facility] [address] [place], [address] Creatinine [Mass/Vol] 1.34 mg/dL High 0.70-1.20 [facility] Comment on above: Performed By: #### L 100.0100, L500.2500 #### [facility] [address] [place], [address] ECRCL 44.25 ml/min Low 50-250 [facility] Comment on above: Performed By: #### L 100.0100, L500.2500 #### [facility] [address] [place], [address] GAP 13 Normal 5-15 [facility] Comment on above: Performed By: #### L 100.0100, L500.2500 #### [facility] [address] [place], [address] GFR/1.73 sq M.predicted among non-blacks MDRD (S/P/Bld) [Vol rate/Area] 53 mL/min/{1.73_m2} Low >60 [facility] Comment on above: Result Comment: mL/m in/1.73m2 CKD-EPI Creatinine Equation (2020) Performed By: #### L 100.0100, L500.2500 #### [facility] [address] [place], [address] Glucose [Mass/Vol] 166 mg/dL High 70-99 [facility] Comment on above: Performed By: #### L 100.0100, L500.2500 #### [facility] [address] [place], [address] Potassium [Moles/Vol] 4.2 mmol/L Normal 3.3-5.1 [facility] Comment on above: Performed By: #### L 100.0100, L500.2500 #### [facility] [address] [place], [address] Sodium [Moles/Vol] 136 mmol/L Normal 133-145 [facility] Comment on above: Performed By: #### L 100.0100, L500.2500 #### [facility] [address] [place], [address] Urea nitrogen [Mass/Vol] 29 mg/dL High 4-19 [facility] Comment on above: Performed By: #### L 100.0100, L500.2500 #### [facility] [address] [place], [address] Basophil percentageOrdered B y: Juno Bradley on 04-10-2025 Basophils/100 WBC (Bld) 0.4 % 0-1 [facility] Basophil percentageOrdered B y: Ronn Olson on 04-10-2025 Basophils/100 WBC (Bld) 0.5 % 0-1 [facility] Bilirubin Test strip Ql (U)O rdered By: Juno Bradley on 04-10-2025 Bilirubin Ql (U) Negative Negative [facility] Bilirubin Test strip Ql (U)O rdered By: Ronn Olson on 04-10-2025 Bilirubin Ql (U) Negative Negative [facility] CBC W/Diff, Automatedon Absolute Lymph 2.81 X10 3/uL Normal 0.83-4.51 [facility] Comment on above: Performed By: #### L 100.0100, L500.2500 #### [facility] [address] [place], [address] Absolute Neut 8.4 X10 3/uL High 2.0-7.7 [facility] Comment on above: Performed By: #### L 100.0100, L500.2500 #### [facility] [address] [place], [address] Basophils/100 WBC (Bld) 0.4 % Normal 0-1 [facility] Comment on above: Performed By: #### L 100.0100, L500.2500 #### [facility] [address] [place], [address] Eosinophils/100 WBC (Bld) 3.1 % Normal 0-5 [facility] Comment on above: Performed By: #### L 100.0100, L500.2500 #### [facility] [address] [place], [address] Erythrocyte distribution width (RBC) [Ratio] 13.1 % Normal 11.6-14.6 [facility] Comment on above: Performed By: #### L 100.0100, L500.2500 #### [facility] [address] [place], [address] Hematocrit (Bld) [Volume fraction] 37.0 % Low 40-54 [facility] Comment on above: Performed By: #### L 100.0100, L500.2500 #### [facility] [address] [place], [address] Hemoglobin (Bld) [Mass/Vol] 13.0 g/dL Normal 13.0-16.5 [facility] Comment on above: Performed By: #### L 100.0100, L500.2500 #### [facility] [address] [place], [address] IG% 0.600 Normal 0.0-0.9 [facility] Comment on above: Result Comment: IG% - Immature Granulocytes (promyelocytes, myelocytes and metamyelocytes) > 1% indicates that a LEFT SHIFT is Present. Performed By: #### L 100.0100, L500.2500 #### [facility] [address] [place], [address] Lymphocytes/100 WBC (Bld) 21.9 % Normal 19-41 [facility] Comment on above: Performed By: #### L 100.0100, L500.2500 #### [facility] [address] [place], [address] MCH (RBC) [Entitic mass] 32.8 pg High 27.0-32.0 [facility] Comment on above: Performed By: #### L 100.0100, L500.2500 #### [facility] [address] [place], [address] MCHC (RBC) [Mass/Vol] 35.1 g/dL Normal 32-36 [facility] Comment on above: Performed By: #### L 100.0100, L500.2500 #### [facility] [address] [place], [address] MCV (RBC) [Entitic vol] 93.4 fL Normal 80-94 [facility] Comment on above: Performed By: #### L 100.0100, L500.2500 #### [facility] [address] [place], [address] Monocytes/100 WBC (Bld) 8.3 % Normal 0-10 [facility] Comment on above: Performed By: #### L 100.0100, L500.2500 #### [facility] [address] [place], [address] Neutrophils/100 WBC (Bld) 65.7 % Normal 47-70 [facility] Comment on above: Performed By: #### L 100.0100, L500.2500 #### [facility] [address] [place], [address] Nucleated RBC (Bld) [#/Vol] 0 10*3/uL Normal 0-5 [facility] Comment on above: Performed By: #### L 100.0100, L500.2500 #### [facility] [address] [place], [address] Platelet mean volume (Bld) [Entitic vol] 10.2 fL Normal 6.2-12.0 [facility] Comment on above: Performed By: #### L 100.0100, L500.2500 #### [facility] [address] [place], [address] Platelets (Bld) [#/Vol] 194 10*3/uL Normal 150-450 [facility] Comment on above: Performed By: #### L 100.0100, L500.2500 #### [facility] [address] [place], [address] RBC (Bld) [#/Vol] 3.96 10*6/uL Low 4.6-6.2 [facility] Comment on above: Performed By: #### L 100.0100, L500.2500 #### [facility] [address] [place], [address] RDW SD 45.1 fl High 35.1-43.9 [facility] Comment on above: Performed By: #### L 100.0100, L500.2500 #### [facility] [address] [place], [address] WBC (Bld) [#/Vol] 12.8 10*3/uL High 4.4-11.0 [facility] Comment on above: Performed By: #### L 100.0100, L500.2500 #### [facility] [address] [place], [address] Absolute Lymph 1.92 X10 3/uL Normal 0.83-4.51 [facility] Comment on above: Performed By: #### L 400.0001 #### [facility] [address] [place], [address] Absolute Neut 9.6 X10 3/uL High 2.0-7.7 [facility] Comment on above: Performed By: #### L 400.0001 #### [facility] [address] [place], [address] Basophils/100 WBC (Bld) 0.5 % Normal 0-1 [facility] Comment on above: Performed By: #### L 400.0001 #### [facility] [address] [place], [address] Eosinophils/100 WBC (Bld) 1.4 % Normal 0-5 [facility] Comment on above: Performed By: #### L 400.0001 #### [facility] [address] [place], [address] Erythrocyte distribution width (RBC) [Ratio] 13.1 % Normal 11.6-14.6 [facility] Comment on above: Performed By: #### L 400.0001 #### [facility] [address] [place], [address] Hematocrit (Bld) [Volume fraction] 39.7 % Low 40-54 [facility] Comment on above: Performed By: #### L 400.0001 #### [facility] [address] [place], [address] Hemoglobin (Bld) [Mass/Vol] 13.7 g/dL Normal 13.0-16.5 [facility] Comment on above: Performed By: #### L 400.0001 #### [facility] [address] [place], [address] IG% 0.500 Normal 0.0-0.9 [facility] Comment on above: Result Comment: IG% - Immature Granulocytes (promyelocytes, myelocytes and metamyelocytes) > 1% indicates that a LEFT SHIFT is Present. Performed By: #### L 400.0001 #### [facility] [address] [place], [address] Lymphocytes/100 WBC (Bld) 15.0 % Low 19-41 [facility] Comment on above: Performed By: #### L 400.0001 #### [facility] [address] [place], [address] MCH (RBC) [Entitic mass] 32.9 pg High 27.0-32.0 [facility] Comment on above: Performed By: #### L 400.0001 #### [facility] [address] [place], [address] MCHC (RBC) [Mass/Vol] 34.5 g/dL Normal 32-36 [facility] Comment on above: Performed By: #### L 400.0001 #### [facility] [address] [place], [address] MCV (RBC) [Entitic vol] 95.2 fL High 80-94 [facility] Comment on above: Performed By: #### L 400.0001 #### [facility] [address] [place], [address] Monocytes/100 WBC (Bld) 7.8 % Normal 0-10 [facility] Comment on above: Performed By: #### L 400.0001 #### [facility] [address] [place], [address] Neutrophils/100 WBC (Bld) 74.8 % High 47-70 [facility] Comment on above: Performed By: #### L 400.0001 #### [facility] [address] [place], [address] Nucleated RBC (Bld) [#/Vol] 0 10*3/uL Normal 0-5 [facility] Comment on above: Performed By: #### L 400.0001 #### [facility] [address] [place], [address] Platelet mean volume (Bld) [Entitic vol] 10.2 fL Normal 6.2-12.0 [facility] Comment on above: Performed By: #### L 400.0001 #### [facility] [address] [place], [address] Platelets (Bld) [#/Vol] 199 10*3/uL Normal 150-450 [facility] Comment on above: Performed By: #### L 400.0001 #### [facility] [address] [place], [address] RBC (Bld) [#/Vol] 4.17 10*6/uL Low 4.6-6.2 [facility] Comment on above: Performed By: #### L 400.0001 #### [facility] [address] [place], [address] RDW SD 46.0 fl High 35.1-43.9 [facility] Comment on above: Performed By: #### L 400.0001 #### [facility] [address] [place], [address] WBC (Bld) [#/Vol] 12.8 10*3/uL High 4.4-11.0 [facility] Comment on above: Performed By: #### L 400.0001 #### [facility] [address] [place], [address] Carbon dioxide, total [Moles /volume] in Central venous bloodOrdered By: Juno Bradley on 04-10-2025 CO2 [Moles/Vol] 19.9 mmol/L Low 21.0-32.0 [facility] Carbon dioxide, total [Moles /volume] in Central venous bloodOrdered By: Ronn Olson on 04-10-2025 CO2 [Moles/Vol] 19.7 mmol/L Low 21.0-32.0 [facility] Chloride assayOrdered By: Gage Bradley on 04-10-2025 Chloride [Moles/Vol] 105 mmol/L 98-108 [facility] Chloride assayOrdered By: Gabe Olson on 04-10-2025 Chloride [Moles/Vol] 103 mmol/L 98-108 [facility] Emergency Department Summary on 04-10-2025 Emergency Department Summary [facility] Medical Records Department [address] [address] Emergency Department Summary 04/10/25 MR#: [id number] Acct: [id number] Name: SONIYA COOLEY Rep #: [id number] : 1940 84 From: Juno Bradley DO PCP: Dr. Oniel Francis MD Status:REG ER Location: ED HPI History of Present Illness Chief Complaint: Cárdenas C/O Narrative Narrative: Chief complaint and HPI: 84-year-old male with recent transurethral section of prostate by Dr. Jara presents for evaluation of urinary retention and hematuria. Associated symptom is suprapubic abdominal pain. Patient was seen early this morning for same complaint in which she had Cárdenas catheter placed. He states his symptoms improved with the Cárdenas catheter however he developed urinary retention and has not been able to urinate into the Cárdenas bag since noon. He denies any fever, chills, shortness of breath, chest pain, nausea, vomiting. Review of systems: See HPI Medications: As listed on the chart Allergies: As listed on the chart PFSH: Per chart Vital signs: As listed on the chart. Reviewed. Physical exam: Gen: A O x3, NAD Head: Normocephalic, atraumatic Eyes: No sclera icterus, conjunctiva clear ENT: Moist mucous membranes Neck: Trachea midline, No JVD CV: RRR, no murmurs, no peripheral edema Resp: Lungs CTA BL, no w/r/c GI: Abd soft, distended suprapubically secondary to bladder, tender to palpation suprapubically, no r/r/g : No CVA tenderness. Circumcised penis. No penile tenderness or discharge. No penile or testicular swelling. Normal lie and position of the testicles. No testicular tenderness, masses, or skin changes. No rashes. 17 [place] Cárdenas catheter in place with dried blood at the penile meatus. Minimal/bloody urine in Cárdenas catheter. Musc: Full ROM, no deformity Skin: Warm, dry Neuro: Alert, oriented, grossly intact, sensation intact Psych: Cooperative, appropriate mood and affect [facility] Medical History Thyroid disease History of steroid therapy Back [...] artery disease Atherosclerosis of coronary artery of [place] heart without angina pectoris Essential hypertension Contusion of finger without damage to nail Laceration of finger of left hand without foreign body without damage to nail Hemorrhoids Shortness of breath Neck pain on left side Tingling and numbness left fingers Home Medications ???Medication ???Instructions ???Recorded ???Last Taken ???Type acetaminophen 500 mg tablet 1,000 mg PO TID PRN fever or pain 05/29/19 Unknown History aspirin 81 mg chewable tablet 81 mg PO DAILY PER 12/22/19 History Held on 04/07/25. Instructions: Resume on 04/21/25. carbidopa 25 mg-levodopa 100 mg 3 tab PO TID PARKINSONS 02/03/21 0 04/07/25 History tablet levothyroxine 25 mcg tablet 25 mcg PO DAILY THYROID 02/03/21 0 04/07/25 History atorvastatin 80 mg tablet 80 mg PO QHS CHOLESTEROL 01/19/25 04/06/25 History propranolol 80 mg capsule,24 80 mg PO Q24H BP 01/19/25 04/07/25 History hr,extended release tamsulosin 0.4 mg capsule 0.8 mg PO QHS PER 01/19/2509/29 History clopidogrel 75 mg tablet (Plavix) 75 mg PO DAILY BLOOD THINNER 03/06 Unknown History Held on 04/07/25. Instructions: Resume on 04/21/25. 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 Normal [facility] Emergency Department Summary [facility] Medical Records Department [address] [place] [address] Emergency Department Summary 04/10/25 MR#: [id number] Acct: [id number] Name: SONIYA COOLEY Rep #: [id number] : 1940 84 From: Ronn Olson DO PCP: Dr. Oniel Francis MD Status:REG ER Location: ED HPI History of Present Illness Chief Complaint: Abd Pain [facility] Medical History (Updated 03/24/25 @ 09:25 by [...] artery disease Atherosclerosis of coronary artery of [place] heart without angina pectoris Essential hypertension Contusion of finger without damage to nail Laceration of finger of left hand without foreign body without damage to nail Hemorrhoids Shortness of breath Neck pain on left side Tingling and numbness left fingers Home Medications ???Medication ???Instructions ???Recorded ???Last Taken ???Type acetaminophen 500 mg tablet 1,000 mg PO TID PRN fever or pain 05/29/19 Unknown History aspirin 81 mg chewable tablet 81 mg PO DAILY PER 12/22/19 History Held on 04/07/25. Instructions: Resume on 04/21/25. carbidopa 25 mg-levodopa 100 mg 3 tab PO TID PARKINSONS 02/03/21 0 04/07/25 History tablet levothyroxine 25 mcg tablet 25 mcg PO DAILY THYROID 02/03/21 0 04/07/25 History atorvastatin 80 mg tablet 80 mg PO QHS CHOLESTEROL 01/19/25 04/06/25 History propranolol 80 mg capsule,24 80 mg PO Q24H BP 01/19/25 04/07/25 History hr,extended release tamsulosin 0.4 mg capsule 0.8 mg PO QHS PER 01/19/2509/29 History clopidogrel 75 mg tablet (Plavix) 75 mg PO DAILY BLOOD THINNER 03/06 Unknown History Held on 04/07/25. Instructions: Resume on 04/21/25. nitroglycerin 0.4 mg sublingual 0.4 mg sublingual Q5M PRN CHEST Unknown History tablet PAIN ezetimibe 10 mg tablet 10 mg PO DAILY 03/25/25 04/06/25 H istory finasteride 5 mg tablet 5 mg PO QHS 03/25/25 04/06/25 Hist ory ciprofloxacin HCl 500 mg tablet 500 mg PO BID 7 days #14 TABLETS 0 04/10/25 Unknown Rx Allergy/AdvReac Type Severity Reaction [...] after transurethral resection of prostate here at [facility] by Dr. Jara of the local urologist. He states he has lower abdominal pain. This began yesterday. Notes decreased urination. No sense of fullness in the lower abdomen. The patient's notes he got a Botox injection as well as a TURP. Notes bleeding has slowed down since the operation. Patient denies vomiting, fever. Denies falls. REVIEW OF SYSTEMS: Pertinent positives: Abdominal pain, decreased urination Pertinent negatives: As per HPI PHYSICAL (more content not included)... Normal [facility] Eosinophil percentageOrdered By: Juno Bradley on 04-10-2025 Eosinophils/100 WBC (Bld) 3.1 % 0-5 [facility] Eosinophil percentageOrdered By: Ronn Olson on 04-10-2025 Eosinophils/100 WBC (Bld) 1.4 % 0-5 [facility] Erythrocyte distribution wid th ratioOrdered By: Juno Bradley on 04-10-2025 Erythrocyte distribution width (RBC) [Ratio] 13.1 % 11.6-14.6 [facility] Erythrocyte distribution wid th ratioOrdered By: Ronn Olson on 04-10-2025 Erythrocyte distribution width (RBC) [Ratio] 13.1 % 11.6-14.6 [facility] Erythrocyte distribution wid th standard deviationOrdered By: Juno Moura on 04-10-2025 Erythrocyte distribution width (RBC) [Ratio] 45.1 fl High 35.1-43.9 [facility] Erythrocyte distribution wid th standard deviationOrdered By: Ronn Olson on 04-10-2025 Erythrocyte distribution width (RBC) [Ratio] 46.0 fl High 35.1-43.9 [facility] Glomerular filtration rate ( GFR) estimation/1.73 sq m using serum, plasma, or whole bOrdered By: Juno Bradley on 04-10-2025 GFR/1.73 sq M.predicted among non-blacks MDRD (S/P/Bld) [Vol rate/Area] 83 mL/min/{1.73_m2} >60 [facility] Comment on above: mL/min/1.73m2 CKD-EP I Creatinine Equation (2020) Glomerular filtration rate ( GFR) estimation/1.73 sq m using serum, plasma, or whole bOrdered By: Ronn Olson on 04-10-2025 GFR/1.73 sq M.predicted among non-blacks MDRD (S/P/Bld) [Vol rate/Area] 53 mL/min/{1.73_m2} Low >60 [facility] Comment on above: mL/min/1.73m2 CKD-EP I Creatinine Equation (2020) Hematocrit Auto (Bld) [Volum e fraction]Ordered By: Juno Bradley on 04-10-2025 Hematocrit (Bld) [Volume fraction] 37.0 % Low 40-54 [facility] Hematocrit Auto (Bld) [Volum e fraction]Ordered By: Ronn Olson on 04-10-2025 Hematocrit (Bld) [Volume fraction] 39.7 % Low 40-54 [facility] Hemoglobin measurementOrdere d By: Juno Bradley on 04-10-2025 Hemoglobin (Bld) [Mass/Vol] 13.0 g/dL 13.0-16.5 [facility] Hemoglobin measurementOrdere d By: Ronn Olson on 04-10-2025 Hemoglobin (Bld) [Mass/Vol] 13.7 g/dL 13.0-16.5 [facility] Immature granulocytes/100 WB C Auto (Bld)Ordered By: Juno Bradley on 04-10-2025 Immature granulocytes/100 WBC (Bld) 0.600 % 0.0-0.9 [facility] Comment on above: IG% - Immature Granu locytes (promyelocytes, myelocytes and metamyelocytes) > 1% indicates that a LEFT SHIFT is Present. Immature granulocytes/100 WB C Auto (Bld)Ordered By: Ronn Olson on 04-10-2025 Immature granulocytes/100 WBC (Bld) 0.500 % 0.0-0.9 [facility] Comment on above: IG% - Immature Granu locytes (promyelocytes, myelocytes and metamyelocytes) > 1% indicates that a LEFT SHIFT is Present. Ketones Test strip Ql (U)Ord ered By: Juno Bradley on 04-10-2025 Ketones Ql (U) 5 mg/dl High Negative [facility] Ketones Test strip Ql (U)Ord ered By: Ronn Olson on 04-10-2025 Ketones Ql (U) 5 mg/dl High Negative [facility] MCV (mean corpuscular volume ) determinationOrdered By: Juno Bradley on 04-10-2025 MCV (RBC) [Entitic vol] 93.4 fL 80-94 [facility] MCV (mean corpuscular volume ) determinationOrdered By: Ronn Olson on 04-10-2025 MCV (RBC) [Entitic vol] 95.2 fL High 80-94 [facility] Mean corpuscular hemoglobin (MCH) determinationOrdered By: Juno Bradley on 04-10-2025 MCH (RBC) [Entitic mass] 32.8 pg High 27.0-32.0 [facility] Mean corpuscular hemoglobin (MCH) determinationOrdered By: Ronn Olson on 04-10-2025 MCH (RBC) [Entitic mass] 32.9 pg High 27.0-32.0 [facility] Mean corpuscular hemoglobin concentration (MCHC) determinationOrdered By: Juno Bradley on 04-10-2025 MCHC (RBC) [Mass/Vol] 35.1 g/dL [facility] Mean corpuscular hemoglobin concentration (MCHC) determinationOrdered By: Ronn Olson on 04-10-2025 MCHC (RBC) [Mass/Vol] 34.5 g/dL [facility] Mean platelet volume determi nationOrdered By: Juno Bradley on 04-10-2025 Platelet mean volume (Bld) [Entitic vol] 10.2 fL 6.2-12.0 [facility] Mean platelet volume determi nationOrdered By: Ronn Olson on 04-10-2025 Platelet mean volume (Bld) [Entitic vol] 10.2 fL 6.2-12.0 [facility] Microscopic analysis of urin e for red blood cells (RBC)Ordered By: Juno Bradley on 04-10-2025 Microscopic analysis of urine for red blood cells (RBC) 10-25 SEEN /hpf 0- [facility] Microscopic analysis of urin e for red blood cells (RBC)Ordered By: Ronn Olson on 04-10-2025 Microscopic analysis of urine for red blood cells (RBC) 10-25 SEEN /hpf 0- [facility] Monocyte percentageOrdered B y: Juno Bradley on 04-10-2025 Monocytes/100 WBC (Bld) 8.3 % 0-10 [facility] Monocyte percentageOrdered B y: Ronn Olson on 04-10-2025 Monocytes/100 WBC (Bld) 7.8 % 0-10 [facility] Mucus LM Ql (Urine sed)Order ed By: Juno Bradley on 04-10-2025 Mucus Ql (Urine sed) 0 SEEN /hpf [facility] Mucus LM Ql (Urine sed)Order ed By: Ronn Olson on 04-10-2025 Mucus Ql (Urine sed) 0 SEEN /hpf [facility] Neutrophil percentageOrdered By: Juno Bradley on 04-10-2025 Neutrophils/100 WBC (Bld) 65.7 % 47-70 [facility] Neutrophil percentageOrdered By: Ronn Olson on 04-10-2025 Neutrophils/100 WBC (Bld) 74.8 % High 47-70 [facility] Nitrite Test strip Ql (U)Ord ered By: Juno Bradley on 04-10-2025 Nitrite Ql (U) Positive High Negative [facility] Nitrite Test strip Ql (U)Ord ered By: Ronn Olson on 04-10-2025 Nitrite Ql (U) Positive High Negative [facility] Nucleated red blood cell per centageOrdered By: Juno Bradley on 04-10-2025 Nucleated RBC/100 WBC (Bld) [Ratio] 0 % 0-5 [facility] Nucleated red blood cell per centageOrdered By: Ronn Olson on 04-10-2025 Nucleated RBC/100 WBC (Bld) [Ratio] 0 % 0-5 [facility] Platelet countOrdered By: Gage Bradley on 04-10-2025 Platelets (Bld) [#/Vol] 194 10*3/uL 150-450 [facility] Platelet countOrdered By: Gabe Olson on 04-10-2025 Platelets (Bld) [#/Vol] 199 10*3/uL 150-450 [facility] Potassium measurement (mass/ volume)Ordered By: Juno Bradley on 04-10-2025 Potassium (Unsp spec) [Mass/Vol] 3.8 mmol/L 3.3-5.1 [facility] Potassium measurement (mass/ volume)Ordered By: Ronn Olson on 04-10-2025 Potassium (Unsp spec) [Mass/Vol] 4.2 mmol/L 3.3-5.1 [facility] Protein Test strip Ql (U)Ord ered By: Juno Bradley on 04-10-2025 Protein Ql (U) 100 mg/dl High Negative [facility] Protein Test strip Ql (U)Ord ered By: Ronn Olson on 04-10-2025 Protein Ql (U) 100 mg/dl High Negative [facility] RBC Auto (Bld) [#/Vol]Ordere d By: Juno Bradley on 04-10-2025 RBC (Bld) [#/Vol] 3.96 10*6/uL Low 4.6-6.2 [facility] RBC Auto (Bld) [#/Vol]Ordere d By: Ronn Olson on 04-10-2025 RBC (Bld) [#/Vol] 4.17 10*6/uL Low 4.6-6.2 [facility] Serum creatinine measurement (mass/volume)Ordered By: Juno Bradley on 04-10-2025 Creatinine [Mass/Vol] 0.92 mg/dL 0.70-1.20 [facility] Serum creatinine measurement (mass/volume)Ordered By: Ronn Olson on 04-10-2025 Creatinine [Mass/Vol] 1.34 mg/dL High 0.70-1.20 [facility] Serum glucose measurement (m ass/volume)Ordered By: Juno Bradley on 04-10-2025 Glucose [Mass/Vol] 120 mg/dL High 70-99 [facility] Serum glucose measurement (m ass/volume)Ordered By: Ronn Olson on 04-10-2025 Glucose [Mass/Vol] 166 mg/dL High 70-99 [facility] Serum or plasma calcium juan urement (mass/volume)Ordered By: Juno Moura on 04-10-2025 Calcium [Mass/Vol] 9.6 mg/dL 7.6-11.0 [facility] Serum or plasma calcium juan urement (mass/volume)Ordered By: Ronn Olson on 04-10-2025 Calcium [Mass/Vol] 9.7 mg/dL 7.6-11.0 [facility] Serum or plasma urea nitroge n measurement (mass/volume)Ordered By: Juno Bradley on 04-10-2025 Urea nitrogen [Mass/Vol] 25 mg/dL High 4-19 [facility] Serum or plasma urea nitroge n measurement (mass/volume)Ordered By: Ronn Olson on 04-10-2025 Urea nitrogen [Mass/Vol] 29 mg/dL High 4-19 [facility] Sodium levelOrdered By: Amrik Bradley on 04-10-2025 Sodium [Moles/Vol] 139 mmol/L 133-145 [facility] Sodium levelOrdered By: Kevin Olson on 04-10-2025 Sodium [Moles/Vol] 136 mmol/L 133-145 [facility] Squamous epithelial cells de tection in urine sediment by light microscopyOrdered By: Juno Bradley on 04-10-2025 Epithelial cells.squamous LM Ql (Urine sed) 0-5 SEEN /hpf 0-5 [facility] Squamous epithelial cells de tection in urine sediment by light microscopyOrdered By: Ronn Olson on 04-10-2025 Epithelial cells.squamous LM Ql (Urine sed) 0 SEEN /hpf 0-5 [facility] Urinalysis, Completeon 04-10 BACTERIA 3+ /hpf Normal None Seen [facility] Comment on above: Order Comment: COLOR OF URINE MAY AFFECT DIPSTICK RESULTS. CATHETER SPECIMEN Performed By: #### L 400.0001 #### [facility] [address] [place] [address] EPI,SQUAMOUS 0-5 SEEN Normal 0-5 [facility] Comment on above: Order Comment: COLOR OF URINE MAY AFFECT DIPSTICK RESULTS. CATHETER SPECIMEN Performed By: #### L 400.0001 #### [facility] [address] [place], [address] RBC 10-25 SEEN Normal 0-5 [facility] Comment on above: Order Comment: COLOR OF URINE MAY AFFECT DIPSTICK RESULTS. CATHETER SPECIMEN Performed By: #### L 400.0001 #### [facility] [address] [place], [address] WBC 5-10 SEEN Normal 0-5 [facility] Comment on above: Order Comment: COLOR OF URINE MAY AFFECT DIPSTICK RESULTS. CATHETER SPECIMEN Performed By: #### L 400.0001 #### [facility] [address] [place], [address] Mucus Ql (Urine sed) [address] [facility] Comment on above: Order Comment: COLOR OF URINE MAY AFFECT DIPSTICK RESULTS. CATHETER SPECIMEN Performed By: #### L 400.0001 #### [facility] [address] [place], [address] BACTERIA 1+ /hpf Normal None Seen [facility] Comment on above: Order Comment: COLOR OF URINE MAY AFFECT DIPSTICK RESULTS. CATHETER SPECIMEN Performed By: #### L 400.0001, M100.0 #### [facility] [address] [place], [address] RBC 10-25 SEEN Normal [address] [place] [address] Comment on above: Order Comment: COLOR OF URINE MAY AFFECT DIPSTICK RESULTS. CATHETER SPECIMEN Performed By: #### L 400.0001, .2199 #### [facility] [address] [place], [address] EPI,SQUAMOUS 0 SEEN Normal 0-5 [facility] Comment on above: Order Comment: COLOR OF URINE MAY AFFECT DIPSTICK RESULTS. CATHETER SPECIMEN Performed By: #### L 400.0001, .2199 #### [facility] [address] [place], [address] Mucus Ql (Urine sed) [address] [facility] Comment on above: Order Comment: COLOR OF URINE MAY AFFECT DIPSTICK RESULTS. CATHETER SPECIMEN Performed By: #### L 400.0001, M1.2199 #### [facility] [address] [place], [address] WBC 0 SEEN Normal 0-5 [facility] Comment on above: Order Comment: COLOR OF URINE MAY AFFECT DIPSTICK RESULTS. CATHETER SPECIMEN Performed By: #### L 400.0001, M100.2200 #### [facility] [address] [place], [address] Urine clarityOrdered By: Abiel Bradley on 04-10-2025 Clarity (U) Cloudy Clear [facility] Urine clarityOrdered By: Robin Olson on 04-10-2025 Clarity (U) Sl. Cloudy Clear [facility] Urine color determinationOrd ered By: Juno Bradley on 04-10-2025 Color (U) Brown Yellow [facility] Urine color determinationOrd ered By: Ronn Olson on 04-10-2025 Color (U) Cristiane Yellow [facility] Urine glucose detectionOrder ed By: Juno Bradley on 04-10-2025 Glucose Ql (U) Normal mg/dl Normal [facility] Urine glucose detectionOrder ed By: Ronn Olson on 04-10-2025 Glucose Ql (U) Normal mg/dl Normal [facility] Urine leukocyte esterase det ection by dipstickOrdered By: Juno Bradley on 04-10-2025 Leukocyte esterase Test strip Ql (U) 100 /ul High Negative [facility] Urine leukocyte esterase det ection by dipstickOrdered By: Ronn Olson on 04-10-2025 Leukocyte esterase Test strip Ql (U) 25 /ul High Negative [facility] Urine pHOrdered By: Juno Calderon on 04-10-2025 pH (U) 6.0 [pH] 5.0 - 8.0 [facility] Urine pHOrdered By: Ronn ochoa on 04-10-2025 pH (U) 6.0 [pH] 5.0 - 8.0 [facility] Urine sediment bacteria coun t by microscopy (number/high power field)Ordered By: Juno Bradley on 04-10-2025 Bacteria LM.HPF (Urine sed) [#/Area] 3 /[HPF] None Seen [facility] Urine sediment bacteria coun t by microscopy (number/high power field)Ordered By: Ronn Olson on 04-10-2025 Bacteria LM.HPF (Urine sed) [#/Area] 1 /[HPF] None Seen [facility] Urine specific gravity measu rementOrdered By: Juno Bradley on 04-10-2025 Specific gravity (U) [Rel density] 1.010 1.002-1.030 [facility] Urine specific gravity measu rementOrdered By: Ronn Olson on 04-10-2025 Specific gravity (U) [Rel density] 1.015 1.002-1.030 [facility] Urine urobilinogen measureme ntOrdered By: Juno Bradley on 04-10-2025 Urobilinogen Ql (U) Normal mg/dl Normal [facility] Urine urobilinogen measureme ntOrdered By: Ronn Olson on 04-10-2025 Urobilinogen Ql (U) Normal mg/dl Normal [facility] White blood cell (WBC) count Ordered By: Juno Bradley on 04-10-2025 WBC (Bld) [#/Vol] 12.8 10*3/uL High 4.4-11.0 [facility] White blood cell (WBC) count Ordered By: Ronn Olson on 04-10-2025 WBC (Bld) [#/Vol] 12.8 10*3/uL High 4.4-11.0 [facility] White blood cell countOrdere d By: Juno Bradley on 04-10-2025 White blood cell count 5-10 SEEN /hpf 0-5 [facility] White blood cell countOrdere d By: Ronn Olson on 04-10-2025 White blood cell count 0 SEEN /hpf 0-5 [facility] Discharge Instructionon Discharge Instruction [facility] Medical Records Department [address] [place] [address] Instructions for Home/Discharge Instructions 04/07/25 1333 MR#: [id number] Acct: [id number] Name: SONIYA COOLEY Rep #: [id number] : 1940 84 From: Andi Jara MD [...] Up With: Andi Jara MD When: Call [phone] for an appointment Test Results: Test results from this visit will be discussed in further detail at your follow-up appointment, if applicable. Discharge Plan Admission Primary Reason for Your Visit: TURP AND BOTOX Attending Provider: Andi Jara Primary Care Provider: Oniel Francis Instructions Print Language: Canadian Discharge Orders/Prescriptions Prescriptions: Continued acetaminophen 500 mg tablet 1,000 mg PO TID PRN (Reason: fever or pain) fluticasone propionate [Allergy Relief (fluticasone)] 50 mcg/actuation spray,suspension 1 spray INTRANASAL DAILY PRN (Reason: nasal congestion) carbidopa-levodopa 25-100 mg tablet 2 tab PO TID levothyroxine 25 mcg tablet 25 mcg PO DAILY ilypvghw-svk-QM-lyco pen-lutein 1 EACH tablet 1 ea PO [...] Instructions: Resume on 04/21/25. Patient Comments: [facility] clopidogrel [Plavix] 75 mg tablet 75 mg PO DAILY Hold Instructions: Resume on 04/21/25. Patient Comments: Patient never started after TIA Referrals / Follow Up: Oniel Francis MD [Primary Care Provider] - Adni Jara MD [Med Staff - Active Staff] - Disposition Disposition (needs filled in before D/C Order can be placed): Home, Self Care 04/07/25 1334 Andi Jara MD CC: Dr. Oniel Francis MD Signed [facility] MR/POSTOP.ANEon 04-07-2025 MR/[facility]OP[facility] Medical Records Department [address] [place] [address] Anesthesia Postop Eval I 04/07/25 1342 MR#: [id number] Acct: [id number] Name: SONIYA COOLEY Rep #: [id number] : 1940 84 From: Fred Hernandez CRNA PCP: Dr. Oniel Francis MD Status:REG SDC Y Race: C Location: [place] [address] Anesthesia: Postop Eval I Current Vital Signs Temperature: 97.8 F Pulse Rate: 55 Blood Pressure: 131/72 Respiratory Rate: 16 Pulse Ox: 92 Assessment Airway patent: Yes Spontaneous unlabored respirations: Yes nausea: No Vomiting: No Anesthesia Complication: No Fluid Hydration Crystalloid volume administer (ml): 1,000 Total IV fluid infused: 1,000 Progress Note Anesthesia document: Postop Eval 1 completed: Yes 04/07/25 1342 Date Fred Mary TELESCOPE OPERATOR Cosigner Signature: Date CC: Signed [facility] MR/[id number] 04-07-2025 MR/POSTOPAN2 [facility] Medical Records Department [address] [place] [address] Anesthesia Postop Eval II 04/07/25 1515 MR#: [id number] Acct: [id number] Name: SONIYA COOLEY Rep #: [id number] : 1940 84 From: Dario Pires MD PCP: Dr. Oniel Francis MD Status:ADM DARI Y Race: C Location: MS3 [id number] Anesthesia Postop Eval I Sum Postop Eval Completion status Anesthesia document: Postop Eval 1 completed: Yes Anesthesia Postop Eval I Summary Anesthesia Postop Eval I Summary: Anesthesia Postop Eval I: Assessment Summary Airway patent Yes 04/07/25 13:42 TELESCOPE OPERATOR.TNES Spontaneous unlabored Yes 04/07/25 13:42 TELESCOPE OPERATOR.TNES respirations Mental status nausea No 04/07/25 13:42 TELESCOPE OPERATOR.TNES Vomiting No 04/07/25 13:42 TELESCOPE OPERATOR.TNES Anesthesia Postop Eval I: Fluid Summary Crystalloid volume administer 1,000 04/07/25 13:42 TELESCOPE OPERATOR.TNES (ml) Colloids volume administered ( ml) Blood Product volume administered (ml) Total IV fluid infused 1,000 04/07/25 13:42 TELESCOPE OPERATOR.TNES Anesthesia Postop Eval I: Summary Notes Anesthesia Complication No 04/07/25 13:42 TELESCOPE OPERATOR.TNES Anesthesia Complication Comment: Post-operative progress note Anesthesia: Postop Eval II Evaluation Mental status: Awake Pain Level: 0 nausea: No Vomiting: No Complications Anesthesia Complication: No 04/07/25 1515 Date Dario Pires MD Cosigner Signature: Date CC: Signed Normal [facility] Operative Reporton 5 Operative Report [facility] Medical Records Department [address] [place] [address] Operative Report 04/07/25 1334 MR#: [id number] Acct: [id number] Name: SONIYA COOLEY Rep #: [id number] : 1940 84 From: Andi Jara MD PCP: Dr. 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 Post-Operative Diagnosis: Same Surgery/Procedure Performed: Cystoscopy injection of Botox in the bladder and transurethral section of prostate electrical mechanic: No Type of Anesthesia: General RN Documented Start/Stop Times: Operation Date: 04/07/25 12:00 Case Time Into Pre-Op 04/07/25 09:57 Anesthesia Start 04/07/25 12:40 Into Room 04/07/25 12:40 Out of Pre-Op 04/07/25 12:40 Procedure Start 04/07/25 13:00 Procedure End 04/07/25 13:28 Into Recovery Procedure Start Time: 13:00 Procedure Stop Time: 13:28 Select all DRAINS/GRAFTS/IMPLAN TS that apply: Drains Drain details: 22 [place] three-way Estimated Blood Loss: 10 cc Specimen [...] [facility] general [facility] he was placed in dorsolithotomy position went in the bladder with a 21 [place] rigid cystourethroscope, 100 units of Botox prepared [...] a median loop and used a 24 [place] 9 continuous-flow resectoscope identified the prostate identified [...] SCD's VTE Pharm Prophylaxis ordered?: No 04/07/25 3300 Cosigner Signature (if applicable): CC: Dr. Oniel Francis MD; Dr. Andi Jara MD Signed Normal [facility] Surgery Specimen Level Herbert 04-07-2025 Surgery Specimen Level IV Patient Age/Sex Location Account Attending Physician SONIYA COOLEY 84/M MS3 [id number] Dr. Andi Jara MD Specimen: [id number] Received: 04/07/25 Status: GREG Garcia Num: [id number] Spec Type: TURP Subm Dr: Dr. Andi Jara MD HEADER OPERATION: Cystoscopy, transurethral resection prostate, Botox injection PRE-OP DIAGNOSIS: Elevated prostate specific antigen, frequency of micturition TISSUE SUBMITTED: A- Prostate tissue MICROSCOPIC DIAGNOSIS A. Prostate, transurethral resection: Benign prostate tissue with stromal hyperplasia. MICROSCOPIC DESCRIPTION Slides are reviewed. GROSS DESCRIPTION A. Received in formalin labeled with the patient's name and date of . Designated as prostate tissue is a 12.9 g, 5.5 x 5.5 x 1.3 cm aggregate of irregular, neely, rubbery and cauterized tissue fragments. Entirely submitted in 7 cassettes. MT 04/07/2025 CPT:82177 Patient Age/Sex Location Account Attending Physician SONIYA COOLEY 84/M MS3 [id number] Dr. Andi Jara MD Signed (signature on file) Dr. Shyanne Pickett MD 04/13/25929 Normal [facility] Comment on above: Performed By: #### L 400.0001 #### [facility] [place], [address] [place] 03-24-2025 [facility] Office Visit ([facility] SONIYA COOLEY ([id number]) 1940 M Date Time Provider Department 03/24/25 3:30 PM [facility] During your visit today, we recorded the following information about you: Pulse Blood pressure Weight Height 57/minute 136/84 87.6 kg 1.664 m Abby Pate MD 04/22/2025 2:46 AM Signed Neurology Follow Up Note Subjective Soniya Cooley is an 84 year old male who presents for follow [...] no changes. 03/2024 try 350 mg TID. 09/2024 change metoprolol to propranolol, trazodone. HPI Current Issues - Not sure if propranolol was helpful, not sure about any benefit or side effect to the change - Holding off on vitamins due to swallowing issues - Urinating 5-10 times a night, will be doing surgery 04/07 with urology - Levodopa seems to help tremor and is stiffer / more shuffly without levodopa - Episode 01/19 overnight where speech seemed slurred and feet frozen, both legs weak, went to ER and admitted for testing, said possible TIA, had clinical research monitor - When he wakes up will sometimes see a shadow or other movement that is not there, never in the day - Memory is OK, sometimes has a hard time getting words out - Constipation has been good without needing Miralax much 7 12 5 Cd/ld 25/100 3 3 3 Propranolol 80 LA 1 Current Outpatient Medications Medication Sig Dispense Refill finasteride (PROSCAR) 5 mg tablet Take 1 tablet by mouth once daily. propranolol ER (INDERAL LA) 80 mg 24 hr capsule TAKE ONE CAPSULE BY MOUTH EVERY DAY 90 capsule 1 tamsulosin (FLOMAX) 0.4 mg Take 2 capsules by mouth daily at bedtime. 180 capsule 1 clopidogrel (PLAVIX) 75 mg tablet Take 1 tablet by mouth once daily. 90 tablet 1 traZODone (DESYREL) 50 mg tablet TAKE 1 TABLET BY MOUTH AT BEDTIME 90 tablet 1 atorvastatin (LIPITOR) 80 mg tablet Take 1 tablet by mouth once daily. 90 tablet 1 levothyroxine (SYNTHROID) 25 mcg tablet Take 1 tablet by mouth once daily. Take on empty stomach. For thyroid. 90 tablet 1 carbidopa-levodopa (SINEMET 25-100) 25-100 mg per tablet Take 3 tablets by mouth three times a day. 810 tablet 3 ezetimibe (ZETIA) 10 mg tablet Take 1 tablet by mouth once daily. 90 tablet 3 nitroglycerin sublingual (NITROQUICK) 0.4 mg SL tablet [...] every 8 hours as needed for Pain. omega-3 fatty acids/vitamin e(FISH OIL 1,000 MG CAP) one tablet twice daily 0 cyanocobalamin, vitamin B-12, 500 mcg ODT Take 2 tablets by mouth once daily. (Patient not taking: Reported on 03/24/2025) Cholecalciferol, Vitamin D3, 2,000 unit cap Take 2 tablets by mouth once daily. (Patient not taking: Reported on 03/24/2025) 0 multivitamins w-minerals/lut(CENTR UM SILVER TAB) One tablet daily (Patient not taking: Reported on 03/24/2025) 0 No current facility-administere d medications for this visit. REVIEW OF SYSTEMS His ROS was positive for that mentioned in the HPI. Otherwise a 10-point ROS was completed and was negative. Objective OBJECTIVE 03/24/25 1541 BP: 136/84 BP Site: Right Arm BP Position: Sitting BP Cuff Size: Large Adult Pulse: (!) 57 SpO2: 94% Weight: 87.6 kg (193 lb 3.7 oz) Height: 166.4 cm (5' 5.5) General: General Appearance: Well appearing, alert, in no acute distress, well-hydrated, well nourished. Head: Normocephalic Neurologic Exam: Mental Status: He is alert. Reg 3/ TVG, 03/23/25, wed, age 84, WORLD -> DLORW, 1 error with sentence repetition, 10/05. Affect is appropriate. Cranial Nerves: Extraocular movements show full and smooth pursuits. No nystagmus. Facial activati (more content not included)... Normal [facility] 03-24-2025 [facility] Telephone (FAMPWS) SONIYA COOLEY ([id number]) 1940 M Date Time Provider Department 03/24/25 [facility] During your visit today, we recorded the following information about you: Michelle Herring RN 03/24/2025 9:56 AM Signed James from [facility] PAT calls and is requesting lab results, last cardiology office visit note, and EKG results to be faxed to [phone]. Information faxed as requested. Michelle Herring RN Allergies As of Date: 03/24/2025 Noted Allergy Reaction IODINE 10/09/2002 14 - Other: See Comments Comments: ?decreased BP with iodinated contrast during a cardiac cath. 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 Normal [facility] MR/PAT.KIRKon 03-24-2025 MR/PAT.ANE [facility] Medical Records Department [address] [place] [address] PAT - Anesthesia 03/24/252018 MR#: [id number] Acct: [id number] Name: SONIYA COOLEY Rep #: [id number] : 1940 84 From: Francis Rene MD PCP: Dr. Oniel Francis MD Status:PRE [facility] Y Race: C Location: [facility] Pre-Assessment Diagnosis/Proposed Procedure Planned Operative Procedure(s): TRANSURETEHRAL RESECTION OF PROSTATE, BOTOX IN BLADDER Anesthesia History Anesthesia History - toolmaker helper: Anesthesia History - toolmaker helper Hx Hospitalization Yes 03/24/25 09:11 Any Problems [...] take am of surgery PONV PONV - toolmaker helper: PONV - toolmaker helper Female No 03/24/25 09:11 HX of Motion [...] 01/19/25 16:08 Respiratory Assessment Respiratory Assessment - toolmaker helper: Respiratory Tract Infection Hx - toolmaker helper Hx Respiratory Tract Infection No 03/24/25 09:11 STOP Sleep Apnea STOP Sleep Apnea - toolmaker helper: STOP Sleep Apnea - toolmaker helper Hx Hypertension Yes 03/24/25 09:11 Hx Sleep [...] Tobacco Use History Tobacco Use History - toolmaker helper: Tobacco Use History - toolmaker helper Tobacco Use Non-smoker 01/19/25 17:00 Smoking Status Never smoker 03/24/25 09:11 Hx Tobacco Use No 03/24/25 09:11 Years Smoking Packs Smoked per Day Smoking Cessation Date was within the last 15 years Hx Smoking Cessation Date Hx Smoking Cessation No 03/24/25 09:11 Counseling Hematologic Medial History Hematologic Hx - toolmaker helper: Hematologic 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 Specify any problems Hx of Preganancy in last 3 N/A 03/24/25 09:11 Months Nurse Filling Out Transfusion [email or web address] 03/24/25 09:11 Questions: Date: 03/24/25 03/24/25 09:11 Time: :03/24/25 09:11 Patient unable to answer at this time (ie. 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 Normal [facility] 02-26-2025 [facility] Office Visit ([facility]) FRANCISCATRACHITOSONIYA ([id number]) 1940 M Date Time Provider Department 02/26/25 8:30 AM LETI RODRIGUEZ During your visit today, we recorded the following information about you: Temperature Pulse Respiration Blood pressure 97.7 degrees 61/minute 20/minute 98/70 Weight 89.6 kg Leti Rodriguez PA-C 02/26/2025 8:37 AM Signed [facility] Subjective Soniya Ella Lenora is a 84 year old male. Patient [...] Pt reports he was told by the hand spring repairer helper that they almost lost him due to [...] AND RSV PCR, ROUTINE [SQCVFLRS] Order #: [id number]. #:[id number] Prescriptions as of 02/26/2025 - tamsulosin (FLOMAX) [...] procedures. - (more content not included)... Normal [facility] 02-26-2025 [facility] Telephone (UCWSTR) RITASONIYA BLUE ([id number]) 1940 M Date Time Provider Department 02/26/25 LETI RODRIGUEZ During your visit today, we recorded the following information about you: Stacy Varghese RN 02/26/2025 3:04 PM Signed Patient had urgent care visit this morning with Leti GILLand is calling to ask when the Paxlovid prescription is going to be sent to [facility]. He reports extremely runny [...] Pt reports he was told by the hand spring repairer helper that they almost lost him due to his reaction and was allergic reaction. The patient reports taking 13 hour allergy premedications in the past with Iodinated contrast without experiencing any breakthrough reaction. PENICILLIN G 10/09/2002 4 - Hives Date Reviewed: 02/26/2025 Reviewed by: Ml Connelly MA - Fully Assessed Reason for Visit: Patient Question [5102] Prescriptions as of 03/02/2025 - tamsulosin (FLOMAX) [...] disorder [G47.9] 07/26/2015 Coronary 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kalispel ballard*08/24/2015 Meniscus tear [S83.209A] 12/27/2015 Elevated hemoglobin [...] 01/10/2021 Othe (more content not included)... Normal [facility] (OUTSIDE)on 02-23-2025 [facility] PSA,Total- Diagnosticon 02-03 PSA, DIAGNOSTIC 1.18 ng/mL Normal 0.00-4.00 [facility] Comment on above: Result Comment: This test [...] baseline values. Performed By: #### L 501.9940 #### [facility] [address] [place], [address] [facility] SONIYA COOLEY ([id number]) 1940 M Date Time Provider Department 02/19/25 ONIEL FRANCIS [facility] During your visit today, we recorded the following information about you: Oniel Francis MD 02/19/2025 5:48 PM Signed Let patient know that the halter monitor he wore after being in [facility] for TIA is showing runs of supraventricular tachycardia and that there were two short runs of V-tach. I want him to continue the plavix but would also like for him to see his hand spring repairer helper Dr. Mackey for further eval. (I included Dr. Mackey to see if he can help facilitate an appt.) The 14 day halter was done through [facility] and will be scanned into chart. Roshni Aranda, NORA 02/22/2025 12:49 PM Signed Pt's called and [...] will discuss further injections at appt tomorrow. ONRA Carvalho Christopher B, MD 02/24/2025 11:00 AM [...] Pt reports he was told by the hand spring repairer helper that they almost lost him due to [...] (FLONASE) 50 mcg/actuation nasal spray Use 1 [place] in each nostril once daily. Rinse mouth after use. - Cholecalciferol, Vitamin D3, 2,000 unit cap Take 2 tablets by (more content not included)... Normal [facility] 25(OH)D3 Yumikol-husam 2024 25-hydroxyvitamin D3 [Mass/Vol] 53.1 ng/mL Normal 31.0-80.0 [facility] Comment on above: Order Comment: Speci men Type: BLOOD SPECIMENOrdering Facility: [facility] Address: [address] [place] [address] Result Comment: Clas sification of 25 [place] Vitamin D status: Deficiency/Insufficiency: < or = 30 ng/ml. Sufficiency/Optimal Levels: 31-80 ng/mL Toxicity: > 100 ng/mL. Test performed by chemiluminescent immunoassay. Performed By: #### 1 989-3 ####[facility] LABIA [id number] [place] [address] [place] CBC W Auto Differential pane l (Bld)on 02-08-2025 Basophils (Bld) [#/Vol] 0.06 10*3/uL Normal <0.11 [facility] Comment on above: Order Comment: Speci men Type: BLOOD SPECIMENOrdering Facility: [facility] Address: [address] [place] [address] Performed By: #### 5 7021-8 ####[facility] LABIA [id number] [address] [place] Basophils/100 WBC (Bld) 0.9 % Normal [facility] Comment on above: Order Comment: Speci men Type: BLOOD SPECIMENOrdering Facility: [facility] Address: [address] [place] [address] Performed By: #### 5 7021-8 ####[facility] LABIA [id number] [address] STATES OF [facility] Differential cell count method Nom (Bld) Auto Normal [facility] Comment on above: Order Comment: Speci men Type: BLOOD SPECIMENOrdering Facility: [facility] Address: [address] [place] [address] Performed By: #### 5 7021-8 ####[facility] LABIA [id number] [place] [address] [place] Eosinophils (Bld) [#/Vol] 0.35 10*3/uL Normal <0.46 [facility] Comment on above: Order Comment: Speci men Type: BLOOD SPECIMENOrdering Facility: [facility] Address: [address] [place] [address] Performed By: #### 5 7021-8 ####[facility] LABCLIA [id number] [address] [place] [address] [place] Eosinophils/100 WBC (Bld) 5.3 % Normal [facility] Comment on above: Order Comment: Speci men Type: BLOOD SPECIMENOrdering Facility: [facility] Address: [address] [place] [address] Performed By: #### 5 7021-8 ####[facility] LABCLIA [id number] [address], [place] [address] [place] Erythrocyte distribution width (RBC) [Ratio] 13.3 % Normal 11.5-15.0 [facility] Comment on above: Order Comment: Speci men Type: BLOOD SPECIMENOrdering Facility: [facility] Address: [address] [place] [address] Performed By: #### 5 7021-8 ####[facility] LABCLIA [id number] [address], [place] [address] [place] Hematocrit (Bld) [Volume fraction] 43.1 % Normal 39.0-51.0 [facility] Comment on above: Order Comment: Speci men Type: BLOOD SPECIMENOrdering Facility: [facility] Address: [address] [place] [address] Performed By: #### 5 7021-8 ####[facility] LABCLIA [id number] [facility] [address], [facility] [place] Hemoglobin (Bld) [Mass/Vol] 14.5 g/dL Normal 13.0-17.0 [facility] Comment on above: Order Comment: Speci men Type: BLOOD SPECIMENOrdering Facility: [facility] Address: [address] [place] [address] Performed By: #### 5 7021-8 ####[facility] LABCLIA [id number] [facility] [address], [facility] [place] Immature granulocytes (Bld) [#/Vol] 10*3/uL Normal <0.10 [facility] Comment on above: Order Comment: Speci men Type: BLOOD SPECIMENOrdering Facility: [facility] Address: [address] [place] [address] Performed By: #### 5 7021-8 ####[facility] LABCLIA [id number] [address] STATES [facility] Immature granulocytes/100 WBC (Bld) 0.2 % Normal [facility] Comment on above: Order Comment: Speci men Type: BLOOD SPECIMENOrdering Facility: [facility] Address: [address] [place] [address] Performed By: #### 5 7021-8 ####[facility] LABCLIA [id number] [place] [address] [place] Lymphocytes (Bld) [#/Vol] 2.24 10*3/uL Normal 1.00-4.00 [facility] Comment on above: Order Comment: Speci men Type: BLOOD SPECIMENOrdering Facility: [facility] Address: [address] [place] [address] Performed By: #### 5 7021-8 ####[facility] LABCLIA [id number] [place] [address] [place] Lymphocytes/100 WBC (Bld) 33.9 % Normal [facility] Comment on above: Order Comment: Speci men Type: BLOOD SPECIMENOrdering Facility: [facility] Address: [address] [place] [address] Performed By: #### 5 7021-8 ####[facility] LABCLIA [id number] [place] [id number] [place] MCH (RBC) [Entitic mass] 33.3 pg Normal 26.0-34.0 [facility] Comment on above: Order Comment: Speci men Type: BLOOD SPECIMENOrdering Facility: [facility] Address: [address] [place] [address] Performed By: #### 5 7021-8 ####[facility] LABCLIA [id number] [place] [address] [place] MCHC (RBC) [Mass/Vol] 33.6 g/dL Normal 30.5-36.0 [facility] Comment on above: Order Comment: Speci men Type: BLOOD SPECIMENOrdering Facility: [facility] Address: [address] [place] [address] Performed By: #### 5 7021-8 ####[facility] LABIA [id number] [place] [address] [place] MCV (RBC) [Entitic vol] 99.1 fL Normal 80.0-100.0 [facility] Comment on above: Order Comment: Speci men Type: BLOOD SPECIMENOrdering Facility: [facility] Address: [address] [place] [address] Performed By: #### 5 7021-8 ####[facility] LABIA [id number] [place] [address] [place] Monocytes (Bld) [#/Vol] 0.71 10*3/uL Normal <0.87 [facility] Comment on above: Order Comment: Speci men Type: BLOOD SPECIMENOrdering Facility: [facility] Address: [address] [place] [address] Performed By: #### 5 7021-8 ####[facility] LABIA [id number] [place] [address] [place] Monocytes/100 WBC (Bld) 10.8 % Normal [facility] Comment on above: Order Comment: Speci men Type: BLOOD SPECIMENOrdering Facility: [facility] Address: [address] [place] [address] Performed By: #### 5 7021-8 ####[facility] LABIA [id number] [place] [address] [place] Neutrophils (Bld) [#/Vol] 3.23 10*3/uL Normal 1.45-7.50 [facility] Comment on above: Order Comment: Speci men Type: BLOOD SPECIMENOrdering Facility: [facility] Address: [address] [place] [address] Performed By: #### 5 7021-8 ####[facility] LABIA [id number] [place] [address] [place] Neutrophils/100 WBC (Bld) 48.9 % Normal [facility] Comment on above: Order Comment: Speci men Type: BLOOD SPECIMENOrdering Facility: [facility] Address: [address] [place] [address] Performed By: #### 5 7021-8 ####[facility] LABIA [id number] [place] [address] [place] Nucleated RBC (Bld) [#/Vol] 10*3/uL Normal <0.01 [facility] Comment on above: Order Comment: Speci men Type: BLOOD SPECIMENOrdering Facility: [facility] Address: [address] [place] [address] Performed By: #### 5 7021-8 ####[facility] LABIA [id number] [place] [address] [place] Nucleated RBC/100 WBC (Bld) [Ratio] 0.0 /100 WBC Normal [facility] Comment on above: Order Comment: Speci men Type: BLOOD SPECIMENOrdering Facility: [facility] Address: [address] [place] [address] Performed By: #### 5 7021-8 ####[facility] LABIA [id number] [place] [address] [place] Platelet mean volume (Bld) [Entitic vol] 12.0 fL Normal 9.0-12.7 [facility] Comment on above: Order Comment: Speci men Type: BLOOD SPECIMENOrdering Facility: [facility] Address: [address] [place] [address] Performed By: #### 5 7021-8 ####[facility] LABIA [id number] [place] [address] [place] Platelets (Bld) [#/Vol] 149 10*3/uL Low 150-400 [facility] Comment on above: Order Comment: Speci men Type: BLOOD SPECIMENOrdering Facility: [facility] Address: [address] [place] [address] Performed By: #### 5 7021-8 ####[facility] [id number] [place] [address] [place] RBC (Bld) [#/Vol] 4.35 10*6/uL Normal 4.20-6.00 [facility] Comment on above: Order Comment: Speci men Type: BLOOD SPECIMENOrdering Facility: [facility] Address: [address] [place] [address] Performed By: #### 5 7021-8 ####[facility] [id number] [place] [address] [place] WBC (Bld) [#/Vol] 6.60 10*3/uL Normal 3.70-11.00 [facility] Comment on above: Order Comment: Speci men Type: BLOOD SPECIMENOrdering Facility: [facility] Address: [address] [place] [address] Performed By: #### 5 7021-8 ####[facility] [id number] [place] [id number] [place] CNOVon 02-08-2025 CNOV Office Visit (FAMPWS) SONIYA COOLEY ([id number]) 1940 M Date Time Provider Department 02/08/25 8:00 AM ONIEL FRANCIS During your visit today, we recorded the following information about you: Pulse Respiration Blood pressure Weight 60/minute 18/minute 92/64 90.8 kg Height 1.664 m Oniel Francis MD 02/08/2025 9:20 PM Signed Soniya Cooley is a 84 year old [...] to remember the following three words: Banana, [place] and Chair Visuospatial/Executi ve Functioning: Clock drawin/2 [...] and those as below. Patient recently in [facility] for TIA. Placed on plavix. Ordered event [...] He does not have a lift chair. 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 Anne had cataract surgery over a year ago and is experiencing vision changes, noting that the results were not as good as expected. He has an upcoming appointment with an photographic supervisor in [place]. He reports stable dyspnea, but denies hemoptysis, chest pain, or palpitations. Anne had a TIA with symptoms of general weakness adn slurred speach, which had fully resolved by the time he presented to the ER. Extensive testing at the hospital did not identify a cause. He was advised not to drive until seen by his neurologist, but he drove to today's appointment. He denies nausea, emesis, diarrhea, heartburn, hematuria, or hematochezia. Anne reports nocturia every hour, which disrupts his sleep, and does not find Flomax helpful. He has an upcoming appointment with a urologist. Anne had a couple of skin lesions removed recently and sees a bsw annually for skin checks. He denies unexplained bruising, changes in heat or cold tolerance, increased thirst, syncope, or seizures. He experiences stable tremors due to Parkinson's disease. Anne is taking multiple medications, including atorvastatin, vitamin D, B12, ezetimibe, Flonase, levothyroxine, a multivitamin, fish oil, tamsulosin, trazodone, and propranolol. He reports that trazodone dose not seem to (more content not included)... Normal [facility] Comprehensive metabolic 2000 panelon 02-08-2025 Albumin [Mass/Vol] 4.4 g/dL Normal 3.9-4.9 [facility] Comment on above: Order Comment: Speci men Type: BLOOD SPECIMENOrdering Facility: [facility] Address: [address] [place] [address] Performed By: #### 2 4323-8, LIPNF, 2132-04, 6-3 ####[facility] LABCLIA [id number] [place] [address] [place] ALP [Catalytic activity/Vol] 87 U/L Normal 38-113 [facility] Comment on above: Order Comment: Speci men Type: BLOOD SPECIMENOrdering Facility: [facility] Address: [address] [place] [address] Performed By: #### 2 4323-8, LIPNF, 2132-04, 3015-3 ####[facility] LABIA [id number] [place] [address] [place] ALT [Catalytic activity/Vol] 36 U/L Normal 10-54 [facility] Comment on above: Order Comment: Speci men Type: BLOOD SPECIMENOrdering Facility: [facility] Address: [address] [place] [address] Performed By: #### 2 4323-8, LIPNF, 2132-04, 6-3 ####[facility] LABIA [id number] [place] [id number] [place] Anion gap [Moles/Vol] 11 mmol/L Normal 8-15 [facility] Comment on above: Order Comment: Speci men Type: BLOOD SPECIMENOrdering Facility: [facility] Address: [address] [place] [address] Performed By: #### 2 4323-8, LIPNF, 2132-04, 6-3 ####[facility] LABCLIA [id number] [address] [address] [place] AST [Catalytic activity/Vol] 36 U/L Normal 14-40 [facility] Comment on above: Order Comment: Speci men Type: BLOOD SPECIMENOrdering Facility: [facility] Address: [address] [place] [address] Performed By: #### 2 4323-8, LIPNF, 2132-04, 6-3 ####[facility] LABCLIA [id number] [place] [id number] [place] Bilirubin [Mass/Vol] 0.8 mg/dL Normal 0.2-1.3 [facility] Comment on above: Order Comment: Speci men Type: BLOOD SPECIMENOrdering Facility: [facility] Address: [address] [place] [address] Performed By: #### 2 4323-8, LIPNF, 2132-04, 6-3 ####[facility] LABCLIA [id number] [place] [id number] [place] Calcium [Mass/Vol] 9.6 mg/dL Normal 8.5-10.2 [facility] Comment on above: Order Comment: Speci men Type: BLOOD SPECIMENOrdering Facility: [facility] Address: [address] [place] [address] Performed By: #### 2 4323-8, LIPNF, 2132-04, 6-3 ####[facility] LABCLIA [id number] [address] [address] [place] Chloride [Moles/Vol] 104 mmol/L Normal 98-107 [facility] Comment on above: Order Comment: Speci men Type: BLOOD SPECIMENOrdering Facility: [facility] Address: [address] [place] [address] Performed By: #### 2 4323-8, LIPNF, 2132-04, 3015-3 ####[facility] LABCLIA [id number] [place] [id number] [place] CO2 [Moles/Vol] 25 mmol/L Normal 22-30 [facility] Comment on above: Order Comment: Speci men Type: BLOOD SPECIMENOrdering Facility: [facility] Address: [address] [place] [address] Performed By: #### 2 4323-8, LIPNF, 2132-04, 3015-3 ####[facility] LABCLIA [id number] [place] [address] [place] Creatinine [Mass/Vol] 0.80 mg/dL Normal 0.73-1.22 [facility] Comment on above: Order Comment: Speci men Type: BLOOD SPECIMENOrdering Facility: [facility] Address: [address] [place] [address] Performed By: #### 2 4323-8, LIPNF, 2132-04, 3 ####[facility] LABCLIA [id number] [place] [address] [place] Creatinine and Glomerular filtration rate.predicted panel (S/P/Bld) 88 mL/min/1.73m??? Normal >=60 [facility] Comment on above: Order Comment: Speci men Type: BLOOD SPECIMENOrdering Facility: [facility] Address: [address] [place] [address] Result Comment: Janae mated Glomerular Filtration Rate [...] reflect actual GFR. Performed By: #### 2 4323-8, LIPNF, 2132-04, 3015-3 ####[facility] LABCLIA [id number] [place] [id number] [place] Glucose [Mass/Vol] 117 mg/dL High 74-99 [facility] Comment on above: Order Comment: Speci men Type: BLOOD SPECIMENOrdering Facility: [facility] Address: [address] [place] [address] Result Comment: The [place] Diabetes Association (ADA) provides guidance for cutoff [...] Standards of Medical Care in Diabetes 2016, [place] [employer]. Diabetes Care. 2016.39(Suppl 1). Performed By: #### 2 4323-8, LIPNF, 2132-04, 3016-3 ####[facility] LABCLIA [id number] [place] [address] [place] Potassium [Moles/Vol] 4.4 mmol/L Normal 3.7-5.1 [facility] Comment on above: Order Comment: Speci men Type: BLOOD SPECIMENOrdering Facility: [facility] Address: [address] [place] [address] Performed By: #### 2 4323-8, LIPNF, 2132-04, 3016-3 ####[facility] LABCLIA [id number] [place] [address] [place] Protein [Mass/Vol] 7.0 g/dL Normal 6.3-8.0 [facility] Comment on above: Order Comment: Speci men Type: BLOOD SPECIMENOrdering Facility: [facility] Address: [address] [place] [address] Performed By: #### 2 4323-8, LIPNF, 2132-04, 6-3 ####[facility] LABIA [id number] [address] [address] [place] Sodium [Moles/Vol] 140 mmol/L Normal 136-144 [facility] Comment on above: Order Comment: Speci men Type: BLOOD SPECIMENOrdering Facility: [facility] Address: [address] [place] [address] Performed By: #### 2 4323-8, LIPNF, 2132-04, 63 ####[facility] [id number] [address] [address] [place] Urea nitrogen [Mass/Vol] 21 mg/dL Normal 9-24 [facility] Comment on above: Order Comment: Speci men Type: BLOOD SPECIMENOrdering Facility: [facility] Address: [address] [place] [address] Performed By: #### 2 4323-8, LIPNF, 2132-04, 3 ####[facility] [id number] [place] [address] [place] HbA1c (Bld)on 02-08-2025 Average glucose Estimated from glycated hemoglobin (Bld) [Mass/Vol] 140 mg/dL Normal [facility] Comment on above: Order Comment: Speci men Type: BLOOD SPECIMENOrdering Facility: [facility] Address: [address] [place] [address] Result Comment: eAG: (Estimated average glucose) is a calculated value from HgbA1c and is hvac sales representative of the average blood glucose level in the last 2-3 month period. Performed By: #### 5 5454-3 ####[facility] [id number] [place] [address] [place] HbA1c (Bld) [Mass fraction] 6.5 % High 4.3-5.6 [facility] Comment on above: Order Comment: Speci men Type: BLOOD SPECIMENOrdering Facility: [facility] Address: [address] [place] [address] Result Comment: Amer [place] Diabetes Association guidelines indicate that patients with HgbA1c in the range 5.7-6.4% are at increased risk for development of diabetes, and intervention by lifestyle modification may be beneficial. HgbA1c greater or equal to 6.5% is considered diagnostic of diabetes. Performed By: #### 5 5454-3 ####[facility] LABCLIA [id number] [address] [address] [place] LIPID PANEL, NONFASTINGon Cholesterol [Mass/Vol] 116 mg/dL Normal <200 [facility] Comment on above: Order Comment: Speci men Type: BLOOD SPECIMENOrdering Facility: [facility] Address: [address] [place] [address] Result Comment: <200 mg/dL, Desirable 200-239 mg/dL, Borderline high >239 mg/dL, High Performed By: #### 2 4323-8, LIPNF, 2132-04, 6-3 ####[facility] LABCLIA [id number] [address] [place] [address] [place] HDL CHOLESTEROL, NF 46 mg/dL Normal >39 [facility] Comment on above: Order Comment: Speci men Type: BLOOD SPECIMENOrdering Facility: [facility] Address: [address] [place] [address] Result Comment: 40-5 9 mg/dL, Acceptable >59 mg/dL, High: Negative risk factor for coronary heart disease <40 mg/dL, Low: Positive risk factor for coronary heart disease Performed By: #### 2 4323-8, LIPNF, 2132-04, 6-3 ####[facility] LABCLIA [id number] [address] [place] [address] [place] LDL CHOLESTEROL CALCULATED, NF 52 mg/dL Normal <100 [facility] Comment on above: Order Comment: Speci men Type: BLOOD SPECIMENOrdering Facility: [facility] Address: [address], [place] [address] Result Comment: <100 mg/dL, Optimal 100-129 mg/dL, Near optimal/above optimal 130-159 mg/dL, Borderline high 160-189 mg/dL, High >189 mg/dL, Very high Secondary prevention optimal LDL Cholesterol levels are recommended to be <70 mg/dL LDL cholesterol is calculated using the Uribe-NIH equation. Performed By: #### 2 4323-8, LIPNF, 2132-04, 3015-3 ####[facility] LABCLIA [id number] [address] [place] LDL/HDL RATIO, NF 1.13 mg/dL Normal <2.54 [facility] Comment on above: Order Comment: Myles gottlieb Type: BLOOD SPECIMENOrdering Facility: [facility] Address: [address] [place] [address] Result Comment: Refe rence: 1. National Cholesterol Education Program ATP III Guideline At-A-Glance Quick Desk Reference: National Heart, Lung, and Blood Outing. National Institutes of Health. 2001: NIH Publication No. 01-3305. 2. An International Atherosclerosis Society position paper: global recommendations for the management of dyslipidemia: executive summary, Atherosclerosis. 2014: 232(2):410-413. Performed By: #### 2 4323-8, LIPNF, 2132-04, 3015-10 ####[facility] LABCLIA [id number] [address] [place] NON HDL CHOL, NF 70 mg/dL Normal <130 [facility] Comment on above: Order Comment: Myles gottlieb Type: BLOOD SPECIMENOrdering Facility: [facility] Address: [address] [place] [address] Result Comment: <130 mg/dL, Optimal 130-159 mg/dL, Near optimal/above optimal 160-189 mg/dL, Borderline high 190-219 mg/dL, High >219 mg/dL, Very high Secondary prevention optimal non HDL Cholesterol levels are recommended to be <100 mg/dL Performed By: #### 2 4323-8, LIPNF, 2132-04, 3015-3 ####[facility] LABCLIA [id number] [address] [place] [address] [place] T CHOL/HDL RATIO NF 2.52 mg/dL Normal <5.10 [facility] Comment on above: Order Comment: Speci men Type: BLOOD SPECIMENOrdering Facility: [facility] Address: [address] [place] [address] Performed By: #### 2 4323-8, LIPNF, 2132-04, 3015-3 ####[facility] LABCLIA [id number] [address] [place] [address] [place] TRIGLYCERIDES, NF 94 mg/dL Normal <150 [facility] Comment on above: Order Comment: Speci men Type: BLOOD SPECIMENOrdering Facility: [facility] Address: [address] [place] [address] Result Comment: <150 mg/dL, Normal 150-199 mg/dL, Borderline high 200-499 mg/dL, High >499 mg/dL, Very high Performed By: #### 2 4323-8, LIPNF, 2132-04, 3015-3 ####[facility] LABCLIA [id number] [place] [id number] [place] VLDL CHOLESTEROL, NF 13 mg/dL Normal <30 [facility] Comment on above: Order Comment: Speci men Type: BLOOD SPECIMENOrdering Facility: [facility] Address: [address] [place] [address] Performed By: #### 2 4323-8, LIPNF, 2132-04, 3015-3 ####[facility] LABCLIA [id number] [address] [place] [address] [place] TSH SerPl-aCncon 02-08-2025 TSH Qn 1.680 m[IU]/L Normal 0.270-4.200 [facility] Comment on above: Order Comment: Speci men Type: BLOOD SPECIMENOrdering Facility: [facility] Address: [address] [place] [address] Performed By: #### 2 4323-8, LIPNF, 2132-9, 3016-3 ####[facility] LABCLIA [id number] [facility] [place] [id number] [place] Urinalysis complete panel (U )on 02-08-2025 Bacteria LM.HPF (Urine sed) [#/Area] Negative Normal Negative [facility] Comment on above: Order Comment: Speci men Type: URINE SPECIMENOrdering Facility: [facility] Address: [address] [place] [address] Performed By: #### 2 4356-8 ####[facility] LABCLIA [id number] [place] [address] [place] Bilirubin Ql (U) Negative Normal Negative [facility] Comment on above: Order Comment: Speci men Type: URINE SPECIMENOrdering Facility: [facility] Address: [address] [place] [address] Performed By: #### 2 4356-8 ####[facility] LABCLIA [id number] [place] [id number] [place] Clarity (Unsp spec) Clear Normal Clear [facility] Comment on above: Order Comment: Speci men Type: URINE SPECIMENOrdering Facility: [facility] Address: [address] [place] [address] Performed By: #### 2 4356-8 ####[facility] LABCLIA [id number] [place] [id number] [facility] Color (U) Dark Yellow Abnormal Yellow [facility] Comment on above: Order Comment: Speci men Type: URINE SPECIMENOrdering Facility: [facility] Address: [address] [place] [address] Performed By: #### 2 4356-8 ####[facility] LABCLIA [id number] [place] [id number] [place] Epithelial cells LM.HPF (Urine sed) [#/Area] None Seen Normal [facility] Comment on above: Order Comment: Speci men Type: URINE SPECIMENOrdering Facility: [facility] Address: [address] [place] [address] Performed By: #### 2 4356-8 ####[facility] LABCLIA [id number] [facility] [address] [place] [address] [place] Glucose Test strip (U) [Mass/Vol] Negative Normal Negative [facility] Comment on above: Order Comment: Speci men Type: URINE SPECIMENOrdering Facility: [facility] Address: [address] [place] [address] Performed By: #### 2 4356-8 ####[facility] LABCLIA [id number] [place] [address] [place] Hemoglobin Ql (U) Negative Normal Negative [facility] Comment on above: Order Comment: Speci men Type: URINE SPECIMENOrdering Facility: [facility] Address: [address] [place] [address] Performed By: #### 2 4356-8 ####[facility] LABCLIA [id number] [address], [place] [address] [place] Hyaline casts (Urine sed) [#/Area] 0 /[LPF] Normal 0 /LPF [facility] Comment on above: Order Comment: Speci men Type: URINE SPECIMENOrdering Facility: [facility] Address: [address] [place] [address] Performed By: #### 2 4356-8 ####[facility] LABCLIA [id number] [facility] [address], [facility] [place] Ketones Ql (U) Trace Abnormal Negative [facility] Comment on above: Order Comment: Speci men Type: URINE SPECIMENOrdering Facility: [facility] Address: [address] [place] [address] Performed By: #### 2 4356-8 ####[facility] LABCLIA [id number] [address], [facility] [place] Leukocyte esterase Test strip Ql (U) Negative Normal Negative [facility] Comment on above: Order Comment: Speci men Type: URINE SPECIMENOrdering Facility: [facility] Address: [address] [place] [address] Performed By: #### 2 4356-8 ####[facility] LABCLIA [id number] [place] [address] [place] Nitrite Ql (U) Negative Normal Negative [facility] Comment on above: Order Comment: Speci men Type: URINE SPECIMENOrdering Facility: [facility] Address: [address] [place] [address] Performed By: #### 2 4356-8 ####[facility] LABCLIA [id number] [address], [place] [address] [place] pH (U) 6.0 [pH] Normal <8.5 [facility] Comment on above: Order Comment: Speci men Type: URINE SPECIMENOrdering Facility: [facility] Address: [address] [place] [address] Performed By: #### 2 4356-8 ####[facility] LABCLIA [id number] [place] [address] [place] Protein (U) [Mass/Vol] Trace Abnormal Negative [facility] Comment on above: Order Comment: Speci men Type: URINE SPECIMENOrdering Facility: [facility] Address: [address] [place] [address] Performed By: #### 2 4356-8 ####[facility] LABCLIA [id number] [place] [id number] [place] RBC LM.HPF (Urine sed) [#/Area] 0-2 /HPF Normal 0-2 /HPF [facility] Comment on above: Order Comment: Speci men Type: URINE SPECIMENOrdering Facility: [facility] Address: [address] [place] [address] Performed By: #### 2 4356-8 ####[facility] LABCLIA [id number] [place] [address] [place] Specific gravity (U) [Rel density] 1.025 Normal 1.005-1.030 [facility] Comment on above: Order Comment: Speci men Type: URINE SPECIMENOrdering Facility: [facility] Address: [address] [place] [address] Performed By: #### 2 4356-8 ####[facility] LABIA [id number] [place] [address] [place] Urobilinogen Ql (U) 0.2 EU/dL Normal 0.2-1.0 EU/dL [facility] Comment on above: Order Comment: Speci men Type: URINE SPECIMENOrdering Facility: [facility] Address: [address] [place] [address] Performed By: #### 2 4356-8 ####[facility] LABIA [id number] [place] [address] [place] WBC LM.HPF (Urine sed) [#/Area] 0-5 /HPF Normal 0-5 /HPF [facility] Comment on above: Order Comment: Speci men Type: URINE SPECIMENOrdering Facility: [facility] Address: [address] [place] [address] Performed By: #### 2 4356-8 ####[facility] LABIA [id number] [place] [id number] [place] Vit B12 SerPl-mCncon -07-2 025 Cobalamin (Vitamin B12) [Mass/Vol] 942 pg/mL Normal 232-1245 [facility] Comment on above: Order Comment: Speci men Type: BLOOD SPECIMENOrdering Facility: [facility] Address: [address] [place] [address] Performed By: #### 2 4323-8, LIPNF, 2132-9, 3016-3 ####[facility] LABCLIA [id number] [facility] CLINICGalilea [facility] [place]ENT[place] [id number] [address] [place] Bedside Glucoseon 01-27-2025 FINGERSTICK GLU 136 mg/dL High 74-106 [facility] Comment on above: Result Comment: MICHAEL VILLAGRAN OF PATIENT CARE PER NURSING PROTOCOL Performed By: #### L 501.080 #### [facility] [address] [place], [address] CBC W/Diff, Automatedon 01-03 Absolute Neut Normal 2.0-7.7 [facility] Comment on above: Result Comment: Canc elled via OM: Order cancelled - Patient discharged Performed By: #### L 500.4100, L100.0100 #### [facility] [address] [place], [address] HCT Normal 40-54 [facility] Comment on above: Result Comment: Canc elled via OM: Order cancelled - Patient discharged Performed By: #### L 500.4100, L100.0100 #### [facility] [address] [place], [address] HGB Normal 13.0-16.5 [facility] Comment on above: Result Comment: Canc elled via OM: Order cancelled - Patient discharged Performed By: #### L 500.4100, L100.0100 #### [facility] [address] [place], [address] MCH Normal 27.0-32.0 [facility] Comment on above: Result Comment: Canc elled via OM: Order cancelled - Patient discharged Performed By: #### L 500.4100, L100.0100 #### [facility] [address] [place], [address] MCHC Normal 32-36 [facility] Comment on above: Result Comment: Canc elled via OM: Order cancelled - Patient discharged Performed By: #### L 500.4100, L100.0100 #### [facility] [address] [place], [address] MCV Normal 80-94 [facility] Comment on above: Result Comment: Canc elled via OM: Order cancelled - Patient discharged Performed By: #### L 500.4100, L100.0100 #### [facility] [address] [place], [address] NEUT% Normal 47-70 [facility] Comment on above: Result Comment: Canc elled via OM: Order cancelled - Patient discharged Performed By: #### L 500.4100, L100.0100 #### [facility] [address] [place], [address] PLT Normal 150-450 [facility] Comment on above: Result Comment: Canc elled via OM: Order cancelled - Patient discharged Performed By: #### L 500.4100, L100.0100 #### [facility] [address] [place], [address] RBC Normal 4.6-6.2 [facility] Comment on above: Result Comment: Canc elled via OM: Order cancelled - Patient discharged Performed By: #### L 500.4100, L100.0100 #### [facility] [address] [place], [address] RDW CV Normal 11.6-14.6 [facility] Comment on above: Result Comment: Canc elled via OM: Order cancelled - Patient discharged Performed By: #### L 500.4100, L100.0100 #### [facility] [address] [place], [address] RDW SD Normal 35.1-43.9 [facility] Comment on above: Result Comment: Canc elled via OM: Order cancelled - Patient discharged Performed By: #### L 500.4100, L100.0100 #### [facility] [address] [place], [address] WBC Normal 4.4-11.0 [facility] Comment on above: Result Comment: Canc elled via OM: Order cancelled - Patient discharged Performed By: #### L 500.4100, L100.0100 #### [facility] [address] [place], [address] Lipid Profileon 01-20-2025 CHOL Normal <=200 [facility] Comment on above: Order Comment: Comme nts: NPO at [place] prior to lipid panel Result Comment: Canc elled via OM: Order cancelled - Patient discharged Performed By: #### L 500.4100, L100.0100 #### [facility] [address] [place], [address] CHOL:HDL Normal [facility] Comment on above: Order Comment: Comme nts: NPO at [place] prior to lipid panel Result Comment: Canc elled via OM: Order cancelled - Patient discharged Performed By: #### L 500.4100, L100.0100 #### [facility] [address] [place], [address] CLDL Normal [facility] Comment on above: Order Comment: Comme nts: NPO at [place] prior to lipid panel Result Comment: Canc elled via OM: Order cancelled - Patient discharged Performed By: #### L 500.4100, L100.0100 #### [facility] [address] [place], [address] HDL Normal [facility] Comment on above: Order Comment: Comme nts: NPO at [place] prior to lipid panel Result Comment: Canc elled via OM: Order cancelled - Patient discharged Performed By: #### L 500.4100, L100.0100 #### [facility] [address] [place], [address] TRIG Normal [facility] Comment on above: Order Comment: Comme nts: NPO at [place] prior to lipid panel Result Comment: Canc elled via OM: Order cancelled - Patient discharged Performed By: #### L 500.4100, L100.0100 #### [facility] [address] [place], [address] VLDL Normal 5-40 [facility] Comment on above: Order Comment: Comme nts: NPO at [place] prior to lipid panel Result Comment: Canc elled via OM: Order cancelled - Patient discharged Performed By: #### L 500.4100, L100.0100 #### [facility] [address] [place], [address] 12 Lead EKGon 01-19-2025 12 Lead EKG [facility] Cardiovascular Services [address] [place] [address] 12 Lead EKG 01/19/25 0418 MR#: [id number] Acct: [id number] Name: SONIYA COOLEY Rep #: [id number] : 1940 84 From: Aramis Larson MD Attending Dr: Dr. Leti Lu DO Status: A DM DARI Ordering Dr: Tate Mcdonough DO Date: 01/19/25 Location: [facility] Sex: M C Admitted: 01/19/25 Test Reason [...] Abnormal ECG Confirmed by ARAMIS LARSON MD ([id number]), editorial cartoonist JACKELYN DONNELLY ([id number]) on 01/19/2025 10:54:56 AM Referred By: Confirmed By: ARAMIS LRASON MD 01/19/25 1050 Date Aramis Larson MD CC: Dr. Oniel Francis MD; Dr. Leti Lu DO; Tate Mcdonough DO Signed Normal [facility] Absolute lymphocyte countOrd ered By: Tate Mcdonough on 01-19-2025 Lymphocytes Auto (Unsp spec) [#/Vol] 3.03 10*3/uL 0.83-4.51 [facility] Absolute neutrophil countOrd ered By: Tate Mcdonough on 01-19-2025 Neutrophils (Bld) [#/Vol] 2.3 10*3/uL 2.0-7.7 [facility] Activated partial thrombopla stin time (aPTT) in platelet poor plasma by coagulation aOrdered By: Tate Mcdonough on 01-19-2025 aPTT Coag (PPP) [Time] 28.5 s 24.1-36.2 [facility] Anion gap in Serum or Plasma Ordered By: Tate Mcdonough on 01-19-2025 Anion gap [Moles/Vol] 12 mmol/L 5-15 [facility] Automated blood erythrocyte countOrdered By: Tate Mcdonough on 01-19-2025 RBC (Bld) [#/Vol] 4.31 10*6/uL Low 4.6-6.2 [facility] Comment on above: Performed By: #### L 400.0001 #### [facility] [address] [facility] [address] Automated blood hematocrit ( percentage)Ordered By: Tate Mcdonough on 01-19-2025 Hematocrit (Bld) [Volume fraction] 40.8 % Normal 40-54 [facility] Comment on above: Performed By: #### L 400.0001 #### [facility] [address] [place], [address] Automated lymphocyte count a s percentage of total leukocytesOrdered By: Tate Mcdonough on 01-19-2025 Lymphocytes/100 WBC Auto (Unsp spec) 48.3 % High 19-41 [facility] BUN/creatinine ratioOrdered By: Tate Mcdonough on 01-19-2025 Urea nitrogen/Creatinine [Mass ratio] 27.0 mg/mg High 10-20 [facility] Basic Metabolic Profile (BMP )on 01-19-2025 BUN/CRE 27.0 RATIO High 10-20 [facility] Comment on above: Performed By: #### L 400.0001 #### [facility] [address] [place], [address] ECRCL 68.19 ml/min Normal 50-250 [facility] Comment on above: Performed By: #### L 400.0001 #### [facility] [address] [place], [address] GAP 12 Normal 5-15 [facility] Comment on above: Performed By: #### L 400.0001 #### [facility] [address] [place], [address] Potassium [Moles/Vol] 4.1 mmol/L Normal 3.3-5.1 [facility] Comment on above: Performed By: #### L 400.0001 #### [facility] [address] [place], [address] Basophil percentageOrdered B y: Tate Plascenciafiorella on 01-19-2025 Basophils/100 WBC (Bld) 0.5 % Normal 0-1 [facility] Comment on above: Performed By: #### L 400.0001 #### [facility] [address] [place], [address] Bilirubin Test strip Ql (U)O rdered By: Tate Mcdonough on 01-19-2025 Bilirubin Ql (U) Negative Negative [facility] Brain without Contraston Brain without Contrast [facility] Imaging Services [address] [place] [address] Brain without Contrast MR#: [id number] Acct: [id number] Name: SONIYA COOLEY Rep #: [id number] : 1940 M 84 From: Lucas Monroe MD PCP: Dr. Oniel Francis MD Status: ADM DARI Study: Brain without Contrast Date of Exam: 01/19/25 Exam# [id number] Ordering Dr: Mik Kilgore MD EXAM: BRAIN [...] Oniel Francis MD; Dr. Mik Kilgore MD Cost Analyst: Signed Normal [facility] CBC W/Diff, Automatedon 01-03 Absolute Lymph 3.03 X10 3/uL Normal 0.83-4.51 [facility] Comment on above: Performed By: #### L 400.0001 #### [facility] [address] [place], [place], [address] Absolute Neut 2.3 X10 3/uL Normal 2.0-7.7 [facility] Comment on above: Performed By: #### L 400.0001 #### [facility] [address] [place], [address] IG% 0.200 Normal 0.0-0.9 [facility] Comment on above: Result Comment: IG% - Immature Granulocytes (promyelocytes, myelocytes and metamyelocytes) > 1% indicates that a LEFT SHIFT is Present. Performed By: #### L 400.0001 #### [facility] [address] [place], [address] Lymphocytes/100 WBC (Bld) 48.3 % High 19-41 [facility] Comment on above: Performed By: #### L 400.0001 #### [facility] [address] [place], [address] Nucleated RBC (Bld) [#/Vol] 0 10*3/uL Normal 0-5 [facility] Comment on above: Performed By: #### L 400.0001 #### [facility] [address] [place], [address] RDW SD 46.3 fl High 35.1-43.9 [facility] Comment on above: Performed By: #### L 400.0001 #### [facility] [address] [place], [address] Carbon dioxide, total [Moles /volume] in Central venous bloodOrdered By: Tate Mcdonough on 01-19-2025 CO2 [Moles/Vol] 23.1 mmol/L Normal 21.0-32.0 [facility] Comment on above: Performed By: #### L 400.0001 #### [facility] [address] [place], [address] Chest 1 Viewon 01-19-2025 Chest 1 View [facility] Imaging Services [address] [place] [address] Chest 1 View MR#: [id number] Acct: [id number] Name: SONIYA COOLEY Rep #: [id number] : 1940 M 84 From: Luis Enrique jung MD PCP: Dr. Oniel Francis MD Status: REG ER Study: Chest 1 View Date of Exam: 01/19/25 Exam# [id number] Ordering Dr: Tate Mcdonough DO PROCEDURE: CHEST [...] bilateral basilar atelectatic pulmonary changes. Reading Location: [place] [address] CC: Dr. Oniel Francis MD; Tate Mcdonough DO Cost Analyst: Signed Normal [facility] Chloride assayOrdered By: Marjan Mcdonough on 01-19-2025 Chloride [Moles/Vol] 105 mmol/L Normal 98-108 [facility] Comment on above: Performed By: #### L 400.0001 #### [facility] [address] [facility] [place], [address] Discharge Instructionon 01-03 Discharge Instruction [facility] Medical Records Department [address] [place] [address] Instructions for Home/Discharge Instructions 01/19/25 1805 MR#: [id number] Acct: [id number] Name: SONIYA COOLEY Rep #: [id number] : 1940 84 From: Leti Lu DO [...] Fournier; Sulaiman Luna; Aleksandra Gonzales; Zoila Maciel; Kenjigalilea Milton; Adebayo Valdovinos; Dali Sanchez; Ángel King; [...] 25 mcg tablet 25 mcg PO DAILY yqbvmnjv-iyz-BV-lyco pen-lutein 1 EACH tablet 1 ea PO [...] Recorder Preventi (Urgent) Timeframe: 1 Day Facility: [facility] - Location: Cardiovascular Services Ordered By: Dr. [...] Fournier DO; Tia Mcleod MD Signed Normal [facility] Echo Complete W/ Contraston 01-19-2025 Echo Complete W/ Contrast [facility] Cardiovascular Services [address] [place] [address] Echo Complete W/ Contrast 01/19/25 1437 MR#: [id number] Acct: [id number] Name: SONIYA COOLEY Rep #: [id number] : 1940 84 From: Aramis Larson MD Attending Dr: Dr. Leti Lu DO Status: A DM DARI Ordering Dr: Leti Lu DO Date: 01/19/25 Location: U Sex: M C Admitted: 01/19/25 Reason For [...] Dr. Oniel Francis MD; Dr. Leti Lu DO Date Dictated: 01/19/25 143 Date Transcribed: 01/19/251719 Cost Analyst: Signed Normal [facility] Echocardiogram study reportO rdered By: Aramis Larson on 01-19-2025 Study report [facility] Cardiovascular Services [address] [place] [address] Echo Complete W/ Contrast 01/19/251436 MR#: [id number] Acct: [id number] Name: SONIYA COOLEY Rep #:[id number] : 1940 84 From: Aramis Calero Attending Dr: Dr. Leti Lu, Status: ADM DARI Ordering Dr: Leti Lu DO Date: 01/19/25 Location: [facility] Sex: M Shivam Admitted: 01/19/25 Reason For Study Reason For [...] By: Suzan Leonard RDCS 01/19/25 1720 Date _ Aramis Larson MD CC: Dr. Oniel Francis MD; Dr. Leti Lu DO ~ Date Dictated: 01/19/25 1437 Date Transcribed: 01/19/25 1720 Cost Analyst: Signed [facility] Work Phone: Electrocardiogram reportOrde red By: Aramis Larson on 01-19-2025 EKG study [facility] Cardiovascular Services [address] [place] [address] 12 Lead EKG 01/19/25 0418 MR#: [id number] Acct: [id number] Name: SONIYA COOLEY Ella Rep #:[id number] : 1940 84 From: Aramis Larson MD Attending Dr: Dr. Leti Lu DO Status: ADM DARI Ordering Dr: Tate cMdonough DO Date: Location: [facility] Sex: M C Admitted: 01/19/25 Test Reason [...] Abnormal ECG Confirmed by MARSHA BARTH, ARAMIS ([id number]), editorial cartoonist JACKELYN DONNELLY ([id number]) on 01/19/2025 10:54:56 AM Referred By: Confirmed By: ARAMIS LARSON MD 01/19/25 1055 Date _ Aramis Larson MD CC: Dr. Oniel Francis MD; Dr. Leti Lu DO; Tate Mcdonough DO ~ Signed [facility] Work Phone: Emergency Department Summary on 01-19-2025 Emergency Department Summary [facility] Medical Records Department [address] [place] [address] Emergency Department Summary 01/19/25 MR#: [id number] Acct: [id number] Name: ANNE COOLEYCASSIDY Jaramillo Rep #: [id number] : 1940 84 From: Tate Mcdonough DO PCP: Dr. Oniel Francis MD Status:ADM DARI Location: [address] History of Present Illness Chief Complaint: [...] stroke he was brought in for evaluation. [facility] Medical History (Updated 01/19/25 @ 08:06 by [...] artery disease Atherosclerosis of coronary artery of [place] heart without angina pectoris Essential hypertension Contusion of finger without damage to nail Laceration of finger of left hand without foreign body without damage to nail Hemorrhoids Shortness of breath Neck pain on left side Tingling and numbness left fingers Home Medications ???Medication ???Instructions ???Recorded ???Last Taken ???Type womfyvua-sdp-udqhy acid 0.4 1 ea PO DAILY 05/28/16 [...] Neurologic Neurologic: (more content not included)... Normal [facility] Eosinophil percentageOrdered By: Tate Mcdonough on 01-19-2025 Eosinophils/100 WBC (Bld) 4.3 % Normal 0-5 [facility] Comment on above: Performed By: #### L 400.0001 #### [facility] [address] [place], [address] Erythrocyte distribution wid th ratioOrdered By: Tate Mcdonough on 01-19-2025 Erythrocyte distribution width (RBC) [Ratio] 13.2 % Normal 11.6-14.6 [facility] Comment on above: Performed By: #### L 400.0001 #### [facility] [address] [place], [address] Erythrocyte distribution wid th standard deviationOrdered By: Tate Mcdonough on 01-19-2025 Erythrocyte distribution width (RBC) [Ratio] 46.3 fl High 35.1-43.9 [facility] Glomerular filtration rate ( GFR) estimation/1.73 sq m using serum, plasma, or whole bOrdered By: Tate Mcdonough on 01-19-2025 GFR/1.73 sq M.predicted among non-blacks MDRD (S/P/Bld) [Vol rate/Area] 84 mL/min/{1.73_m2} Normal >60 [facility] Comment on above: mL/min/1.73m2 CKD-EP I Creatinine Equation (2020) Result Comment: mL/m in/1.73m2 CKD-EPI Creatinine Equation (2020) Performed By: #### L 400.0001 #### [facility] [address] [place], [address] [facility]dered By: Leti Lu on 01-19-2025 Glucose [Mass/Vol] 136 mg/dL High 74-106 [facility] Comment on above: MANAGEMENT OF PATIEN T CARE PER NURSING PROTOCOL Hemoglobin measurementOrdere d By: Tate Mcdonough on 01-19-2025 Hemoglobin (Bld) [Mass/Vol] 14.2 g/dL Normal 13.0-16.5 [facility] Comment on above: Performed By: #### L 400.0001 #### [facility] [address] [place], [address] Immature granulocytes/100 WB C Auto (Bld)Ordered By: Tate Mcdonough on 01-19-2025 Immature granulocytes/100 WBC (Bld) 0.200 % 0.0-0.9 [facility] Comment on above: IG% - Immature Granu locytes (promyelocytes, myelocytes and metamyelocytes) > 1% indicates that a LEFT SHIFT is Present. International normalized rat io (INR) calculationOrdered By: Tate Mcdonough on 01-19-2025 INR Coag (Bld) [Relative time] 1.0 {INR} [facility] Ketones Test strip Ql (U)Ord ered By: Tate Mcdonough on 01-19-2025 Ketones Ql (U) Negative Negative [facility] MCV (mean corpuscular volume ) determinationOrdered By: Tate Mcdonough on 01-19-2025 MCV (RBC) [Entitic vol] 94.7 fL High 80-94 [facility] Comment on above: Performed By: #### L 400.0001 #### [facility] [address] [place], [address] MR/CON.PCM.NEon 01-19-2025 MR/CON.PCM.NE [facility] Medical Records Department [address] [place] [address] Consultation - Neurology 01/19/25 1324 MR#: [id number] Acct: [id number] Name: SONIYA COOLEY Rep #: [id number] : 1940 84 From: Sulaiman Carrasquillo MD PCP: Dr. Oniel Francis MD Status:ADM DARI Location: [place] [address] Assessment and Plan: Stroke Assessment/Plan Mr Cooley presents with acute onset dysarthria and bilateral lower extremity weakness concerning for a Transient Ischemic Attack (TIA). While he did miss a dose of sinemet that evening, he has never had such pronounced dysarthria with previous missed doses so less likely symptoms d/t PD. Obtain lipid panel and hemoglobin A1c. Recommend TTE and 30 day clinical research monitor after discharge. PT/OT eval. Load with clopidogrel [...] before with prior missed doses. MRI/CTA neg. 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 angina pectoris Essential hypertension Contusion of finger without damage to nail Laceration of finger of left hand without foreign body without damage to nail Hemorrhoids Shortness of breath Neck pain on left side Tingling and numbness left fingers Home Medications ???Medication ???Instructions ???Recorded ???Last Taken ???Type msbucyjm-iti-slvqr acid 0.4 1 ea PO DAILY 05/28/16 [...] caffeine: N (more content not included)... Normal [facility] Magnetic resonance imaging r eportOrdered By: Lucas Monroe on 01-19-2025 Study report [facility] Imaging Services [address] [place] [address] Brain without Contrast MR#: [id number] Acct: [id number] Name: SONIYA COOLEY Rep #: [id number] : 1940 M 84 From: Graciela Monroe MD PCP: Dr. Oniel Francis MD Status: ADM DARI Study:Brain without Contrast Date of Exam: 01/19/25 Exam# [id number] Ordering Dr: Mik Kilgore MD EXAM: BRAIN [...] Francis MD; Dr. Mik Kilgore MD ~ Cost Analyst: Signed [facility] Mean corpuscular hemoglobin (MCH) determinationOrdered By: Tate Mcdonough on 01-19-2025 MCH (RBC) [Entitic mass] 32.9 pg High 27.0-32.0 [facility] Comment on above: Performed By: #### L 400.0001 #### [facility] [address] [place], [address] Mean corpuscular hemoglobin concentration (MCHC) determinationOrdered By: Tate Mcdonough on 01-19-2025 MCHC (RBC) [Mass/Vol] 34.8 g/dL Normal 32-36 [facility] Comment on above: Performed By: #### L 400.0001 #### [facility] [address] [place], [address] Mean platelet volume determi nationOrdered By: Tate Mcdonough on 01-19-2025 Platelet mean volume (Bld) [Entitic vol] 10.4 fL Normal 6.2-12.0 [facility] Comment on above: Performed By: #### L 400.0001 #### [facility] [address] [place], [address] Microscopic analysis of urin e for red blood cells (RBC)Ordered By: Tate Mcdonough on 01-19-2025 Microscopic analysis of urine for red blood cells (RBC) 0 SEEN /hpf 0-5 [facility] Monocyte percentageOrdered B y: Tate Mcdonough on 01-19-2025 Monocytes/100 WBC (Bld) 10.0 % Normal 0-10 [facility] Comment on above: Performed By: #### L 400.0001 #### [facility] [address] [place], [address] Mucus LM Ql (Urine sed)Order ed By: Tate Mcdonough on 01-19-2025 Mucus Ql (Urine sed) 0 SEEN /hpf [facility] Neutrophil percentageOrdered By: Tate Mcdonough on 01-19-2025 Neutrophils/100 WBC (Bld) 36.7 % Low 47-70 [facility] Comment on above: Performed By: #### L 400.0001 #### [facility] [address] [place], [address] Nitrite Test strip Ql (U)Ord ered By: Tate Mcdonough on 01-19-2025 Nitrite Ql (U) Negative Negative [facility] Nucleated red blood cell per centageOrdered By: Tate Mcdonough on 01-19-2025 Nucleated RBC/100 WBC (Bld) [Ratio] 0 % 0-5 [facility] Partial Thromboplast Timeon 01-19-2025 aPTT Coag (Bld) [Time] 28.5 s Normal 24.1-36.2 [facility] Comment on above: Performed By: #### L 400.0001 #### [facility] [address] [place], [address] Platelet countOrdered By: Marjan Mcdonough on 01-19-2025 Platelets (Bld) [#/Vol] 135 10*3/uL Low 150-450 [facility] Comment on above: Performed By: #### L 400.0001 #### [facility] [address] [place], [address] Potassium measurement (mass/ volume)Ordered By: Tate Mcdonough on 01-19-2025 Potassium (Unsp spec) [Mass/Vol] 4.1 mmol/L 3.3-5.1 [facility] Protein Test strip Ql (U)Ord ered By: Tate Mcdonough on 01-19-2025 Protein Ql (U) Negative Negative [facility] Prothrombin Time w/INRon INR Coag (PPP) [Relative time] 1.0 {INR} Normal [facility] Comment on above: Performed By: #### L 400.0001 #### [facility] [address] [place], [address] Prothrombin timeOrdered By: Tate Mcdonough on 01-19-2025 PT Coag (PPP) [Time] 13.4 s Normal 11.7-14.9 [facility] Comment on above: Performed By: #### L 400.0001 #### [facility] [address] [place], [address] STROKE Brain/Head without Co nton 01-19-2025 STROKE Brain/Head without Cont [facility] Imaging Services [address] [place], [place] [address] STROKE Brain/Head without Cont MR#: [id number] Acct: [id number] Name: SONIYA COOLEY Rep #: [id number] : 1940 M 84 From: Luis Enrique jung MD PCP: Dr. Oniel Francis MD Status: REG ER Study: STROKE Brain/Head without Cont Date of Exam: 0 01/19/25 Exam# [id number] Ordering Dr: Tate Mcdonough DO PROCEDURE: STROKE [...] evidence for acute brain abnormality. Reading Location: [place] [address] CC: Dr. Oniel Francis MD; Tate Mcdonough DO Cost Analyst: Signed Normal [facility] STROKE CTA Head AND Neck W/C onon 01-19-2025 STROKE CTA Head AND Neck W/Con [facility] Imaging Services [address] [place] [address] STROKE CTA Head AND Neck W/Con MR#: [id number] Acct: [id number] Name: SONIYA COOLEY Rep #: [id number] : 1940 M 84 From: Luis Enrique jung MD PCP: Dr. Oniel Francis MD Status: REG ER Study: STROKE CTA Head AND Neck W/Con Date of Exam: 0 01/19/25 Exam# [id number] Ordering Dr: Tate Mcdonough DO PROCEDURE: STROKE [...] There is no demonstrated aneurysm of the [place]. There is no major vessel [...] IMPRESSION: Atherosclerosis without high-grade stenosis. Reading Location: [place] [address] CC: Dr. Oniel Francis MD; Tate Mcdonough DO Cost Analyst: Signed Normal [facility] Serum creatinine measurement (mass/volume)Ordered By: Tate Mcdonough on 01-19-2025 Creatinine [Mass/Vol] 0.91 mg/dL Normal 0.70-1.20 [facility] Comment on above: Performed By: #### L 400.0001 #### [facility] [address] [place], [place], [address] Serum glucose measurement (m ass/volume)Ordered By: Tate Mcdonough on 01-19-2025 Glucose [Mass/Vol] 145 mg/dL High 70-99 [facility] Comment on above: Performed By: #### L 400.0001 #### [facility] [address] [place], [place], [address] Serum or plasma calcium juan urement (mass/volume)Ordered By: Tate Mcdonough on 01-19-2025 Calcium [Mass/Vol] 9.7 mg/dL Normal 7.6-11.0 [facility] Comment on above: Performed By: #### L 400.0001 #### [facility] [address] [place], [address] Serum or plasma urea nitroge n measurement (mass/volume)Ordered By: Tate Mcdnoough on 01-19-2025 Urea nitrogen [Mass/Vol] 25 mg/dL High 4-19 [facility] Comment on above: Performed By: #### L 400.0001 #### [facility] [address] [place], [address] Sodium levelOrdered By: Aime Mcdonough on 01-19-2025 Sodium [Moles/Vol] 140 mmol/L Normal 133-145 [facility] Comment on above: Performed By: #### L 400.0001 #### [facility] [address] [place], [address] Squamous epithelial cells de tection in urine sediment by light microscopyOrdered By: Tate Mcdonough on 01-19-2025 Epithelial cells.squamous LM Ql (Urine sed) 0 SEEN /hpf 0-5 [facility] Urinalysis, Completeon 01-19 BACTERIA 0 SEEN Normal None Seen [facility] Comment on above: Order Comment: COLOR OF URINE MAY AFFECT DIPSTICK RESULTS. CATHETER SPECIMEN Performed By: #### L 400.0001 #### [facility] [address] [place], [address] EPI,SQUAMOUS 0 SEEN Normal 0-5 [facility] Comment on above: Order Comment: COLOR OF URINE MAY AFFECT DIPSTICK RESULTS. CATHETER SPECIMEN Performed By: #### L 400.0001 #### [facility] [address] [place], [address] Mucus Ql (Urine sed) [address] [facility] Comment on above: Order Comment: COLOR OF URINE MAY AFFECT DIPSTICK RESULTS. CATHETER SPECIMEN Performed By: #### L 400.0001 #### [facility] [address] [place], [address] RBC 0 SEEN Normal 0-5 [facility] Comment on above: Order Comment: COLOR OF URINE MAY AFFECT DIPSTICK RESULTS. CATHETER SPECIMEN Performed By: #### L 400.0001 #### [facility] [address] [place], [place], [address] WBC 0 SEEN Normal 0-5 [facility] Comment on above: Order Comment: COLOR OF URINE MAY AFFECT DIPSTICK RESULTS. CATHETER SPECIMEN Performed By: #### L 400.0001 #### [facility] [address] [place], [place], [address] Urine clarityOrdered By: Denny Mcdonough on 01-19-2025 Clarity (U) Clear Clear [facility] Urine color determinationOrd ered By: Tate Mcdonough on 01-19-2025 Color (U) Yellow Yellow [facility] Urine glucose detectionOrder ed By: Tate Mcdonough on 01-19-2025 Glucose Ql (U) Normal mg/dl Normal [facility] Urine leukocyte esterase det ection by dipstickOrdered By: Tate Mcdonough on 01-19-2025 Leukocyte esterase Test strip Ql (U) Negative Negative [facility] Urine pHOrdered By: Tate gutierrez on 01-19-2025 pH (U) 6.0 [pH] 5.0 - 8.0 [facility] Urine sediment bacteria coun t by microscopy (number/high power field)Ordered By: Tate Mcdonough on 01-19-2025 Bacteria LM.HPF (Urine sed) [#/Area] 0 /[HPF] None Seen [facility] Urine specific gravity measu rementOrdered By: Tate Mcdonough on 01-19-2025 Specific gravity (U) [Rel density] 1.015 1.002-1.030 [facility] Urine urobilinogen measureme ntOrdered By: Tate Mcdonough on 01-19-2025 Urobilinogen Ql (U) Normal mg/dl Normal [facility] White blood cell (WBC) count Ordered By: Tate Mcdonough on 01-19-2025 WBC (Bld) [#/Vol] 6.3 10*3/uL Normal 4.4-11.0 [facility] Comment on above: Performed By: #### L 400.0001 #### [facility] [address] [place], [address] White blood cell countOrdere d By: Tate Mcdonough on 01-19-2025 White blood cell count 0 SEEN /hpf 0-5 [facility] Lumbar Spine 2 or 3 Viewson 01-18-2025 Lumbar Spine 2 or 3 Views [facility] Imaging Services [address] [place] [address] Lumbar Spine 2 or 3 Views MR#: [id number] Acct: [id number] Name: SONIYA COOLEY Rep #: [id number] : 1940 M 84 From: Luis Enrique jung MD PCP: Dr. Oniel Francis MD Status: DEP AMB Study: Lumbar Spine 2 or 3 Views Date of Exam: Exam# [id number] Ordering Dr: Mayra Hicks PROCEDURE: LUMBAR SPINE [...] or 3 Views IMPRESSION: Spondylosis. Reading Location: [facility] CC: Mayra Hicks; Dr. 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 Depending on response we could increase propranolol in the future. Thanks Precious Caballero, RN 09/21/2024 12:16 PM Signed Called patient at [phone]. Left message on voicemail for patient to return call. Moni Encarnacion MA 09/23/2024 1:39 PM Signed Called and spoke with patient. He expressed understanding. Allergies As of Date: 09/18/2024 Noted Allergy Reaction IODINE 10/09/2002 14 - Other: See Comments Comments: ?decreased BP with iodinated contrast during a cardiac cath. Pt reports he was told by the hand spring repairer helper that they almost lost him due to [...] (FLONASE) 50 mcg/actuation nasal spray Use 1 [place] in each nostril once daily. Rinse mouth [...] disorder [G47.9] 07/26/2015 Coronary 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kalispel ballard*08/24/2015 Meniscus tear [S83.209A] 12/27/2015 Elevated blood [...] both henderson (more content not included)... Normal [facility] ECHOon 09-17-2024 Echocardiography Echocardiography Report: Transthoracic Echo Counts Include [facility] Date of service: 09/17/2024 9:23:08 AM CONSERVATION AIDE Ordering physician: MARJ MACKEY Indication: Routine surveillance of prosthetic valve (>3yrs) Technologist: Michelle Tomlin [facility] Interpreting physician: Tonia Castro MD PATIENT: Name: [...] * Final (Updated) * * * CC [place] [facility] : [id number]. [id number] Normal [facility] CNOVon 09-11-2024 CNOV Office Visit ([facility] SONIYA COOLEY ([id number]) 1940 M Date Time Provider Department 09/11/24 3:00 PM [facility] During your visit today, we recorded the [...] (FLONASE) 50 mcg/actuation nasal spray Use 1 [place] in each nostril once daily. Rinse mouth [...] exam 1520 (more content not included)... Normal [facility] Comprehensive metabolic 2000 panelon 09-01-2024 Albumin [Mass/Vol] 4.6 g/dL Normal 3.9-4.9 [facility] Comment on above: Order Comment: Speci chery Type: BLOOD SPECIMENOrdering Facility: [facility] Address: [address] [place] [address] Performed By: #### 2 4323-8 ####[facility] [id number] [place] [address] [place] ALP [Catalytic activity/Vol] 96 U/L Normal 38-113 [facility] Comment on above: Order Comment: Speci men Type: BLOOD SPECIMENOrdering Facility: [facility] Address: [address] [place] [address] Performed By: #### 2 4323-8 ####[facility] MILLTOWNCLIA [id number] [place] [address] [place] ALT [Catalytic activity/Vol] 34 U/L Normal 10-54 [facility] Comment on above: Order Comment: Speci men Type: BLOOD SPECIMENOrdering Facility: [facility] Address: [address] [place] [address] Performed By: #### 2 4323-8 ####[facility] MILLTOWNCLIA [id number] [place] [address] [place] Anion gap [Moles/Vol] 9 mmol/L Normal 8-15 [facility] Comment on above: Order Comment: Speci men Type: BLOOD SPECIMENOrdering Facility: [facility] Address: [address] [place] [address] Performed By: #### 2 4323-8 ####[facility] ERWNCLIA [id number] [place] [address] [place] AST [Catalytic activity/Vol] 26 U/L Normal 14-40 [facility] Comment on above: Order Comment: Speci men Type: BLOOD SPECIMENOrdering Facility: [facility] Address: [address] [place] [address] Performed By: #### 2 4323-8 ####[facility] MILLTOWNCLIA [id number] [place] [address] [place] Bilirubin [Mass/Vol] 0.9 mg/dL Normal 0.2-1.3 [facility] Comment on above: Order Comment: Speci men Type: BLOOD SPECIMENOrdering Facility: [facility] Address: [address] [place] [address] Performed By: #### 2 4323-8 ####[facility] ERWNCLIA [id number] [place] [address] [place] Calcium [Mass/Vol] 10.1 mg/dL Normal 8.5-10.2 [facility] Comment on above: Order Comment: Speci men Type: BLOOD SPECIMENOrdering Facility: [facility] Address: [address] [place] [address] Performed By: #### 2 4323-8 ####[facility] MILLTOWNCLIA [id number] [place] [address] [place] Chloride [Moles/Vol] 104 mmol/L Normal 98-107 [facility] Comment on above: Order Comment: Speci men Type: BLOOD SPECIMENOrdering Facility: [facility] Address: [address] [place] [address] Performed By: #### 2 4323-8 ####[facility] [id number] [place] [address] [place] CO2 [Moles/Vol] 27 mmol/L Normal 22-30 [facility] Comment on above: Order Comment: Speci men Type: BLOOD SPECIMENOrdering Facility: [facility] Address: [address] [place] [address] Performed By: #### 2 4323-8 ####[facility] MILLWNCLIA [id number] [place] [address] [place] Creatinine [Mass/Vol] 0.84 mg/dL Normal 0.73-1.22 [facility] Comment on above: Order Comment: Speci men Type: BLOOD SPECIMENOrdering Facility: [facility] Address: [address] [place] [address] Performed By: #### 2 4323-8 ####[facility] MILLWNCLIA [id number] [place] [address] [place] Creatinine and Glomerular filtration rate.predicted panel (S/P/Bld) 87 mL/min/1.73m??? Normal >=60 [facility] Comment on above: Order Comment: Speci men Type: BLOOD SPECIMENOrdering Facility: [facility] Address: [address] [place] [id number] Result Comment: Janae mated Glomerular Filtration Rate [...] actual GFR. Performed By: #### 2 4323-8 ####[facility] [id number] [place] [address] [place] Glucose [Mass/Vol] 124 mg/dL High 74-99 [facility] Comment on above: Order Comment: Myles gottlieb Type: BLOOD SPECIMENOrdering Facility: [facility] Address: [address] [place] [address] Result Comment: The [place] [employer] (ADA) provides guidance for cutoff [...] Standards of Medical Care in Diabetes 2016, [place] [employer]. Diabetes Care. 2016.39(Suppl 1). Performed By: #### 2 4323-8 ####[facility] [id number] [place] [address] [place] Potassium [Moles/Vol] 4.7 mmol/L Normal 3.7-5.1 [facility] Comment on above: Order Comment: Myles gottlieb Type: BLOOD SPECIMENOrdering Facility: [facility] Address: [address] [place] [address] Performed By: #### 2 4323-8 ####[facility] MILLTOWNCLIA [id number] [place] [address] [place] Protein [Mass/Vol] 7.0 g/dL Normal 6.3-8.0 [facility] Comment on above: Order Comment: Speci men Type: BLOOD SPECIMENOrdering Facility: [facility] Address: [address] [place] [address] Performed By: #### 2 4323-8 ####[facility] [id number] [place] [address] [place] Sodium [Moles/Vol] 140 mmol/L Normal 136-144 [facility] Comment on above: Order Comment: Speci men Type: BLOOD SPECIMENOrdering Facility: [facility] Address: [address] [place] [address] Performed By: #### 2 4323-8 ####[facility] [id number] [place] [address] [place] Urea nitrogen [Mass/Vol] 34 mg/dL High 9-24 [facility] Comment on above: Order Comment: Speci men Type: BLOOD SPECIMENOrdering Facility: [facility] Address: [address] [place] [address] Performed By: #### 2 4323-8 ####[facility] [id number] [place] [address] [place] Lipid 1996 panelon 5 Cholesterol [Mass/Vol] 109 mg/dL Normal <200 [facility] Comment on above: Order Comment: Speci men Type: BLOOD SPECIMENOrdering Facility: [facility] Address: [address] [place] [address] Result Comment: <200 mg/dL, Desirable 200-239 mg/dL, Borderline high >239 mg/dL, High Performed By: #### 2 4331-1 ####[facility] LABCLIA [id number] [place] [id number] [facility] [id number] [place] [address] [place]#### 382[address]-4 ####[facility] LABCLIA [id number] [place] [address] [place] Cholesterol in HDL [Mass/Vol] 47 mg/dL Normal >39 [facility] Comment on above: Order Comment: Speci men Type: BLOOD SPECIMENOrdering Facility: [facility] Address: [address] [place] [address] Result Comment: 40-5 9 mg/dL, Acceptable >59 mg/dL, High: Negative risk factor for coronary heart disease <40 mg/dL, Low: Positive risk factor for coronary heart disease Performed By: #### 2 4331-1 ####[facility] LABCLIA [id number] [address] STATES OF [facility] [id number] [place] [address] [place]#### 02756-6 ####[facility] LABCLIA [id number] [place] [address] [place] Cholesterol in LDL [Mass/Vol] 47 mg/dL Normal <100 [facility] Comment on above: Order Comment: Speci men Type: BLOOD SPECIMENOrdering Facility: [facility] Address: [address] [place] [id number] Result Comment: <100 mg/dL, Optimal 100-129 mg/dL, Near optimal/above optimal 130-159 mg/dL, Borderline high 160-189 mg/dL, High >189 mg/dL, Very high Secondary prevention optimal LDL Cholesterol levels are recommended to be < 70 mg/dL Performed By: #### 2 4331-1 ####[facility] LABCLIA [id number] [place] [address] [id number] [place] [address] [place]#### 10854-0 ####[facility] LABCLIA [id number] [place] [address] [place] Cholesterol in LDL/Cholesterol in HDL [Mass ratio] 1.00 {ratio} Normal <2.54 [facility] Comment on above: Order Comment: Speci men Type: BLOOD SPECIMENOrdering Facility: [facility] Address: [address] [place] [address] Result Comment: Mitesh michel: 1. National Cholesterol Education Program ATP III Guideline At-A-Glance Quick Desk Reference: National Heart, Lung, and Blood Outing. National Institutes of Health. 2001: NIH Publication No. 01-3305. 2. An International Atherosclerosis Society position paper: global recommendations for the management of dyslipidemia: executive summary, Atherosclerosis. 2014: 232(2):410-413. Performed By: #### 2 4331-1 ####[facility] LABCLIA [id number] [address] [id number] [place] [address] [place]#### 80256-1 ####[facility] LABCLIA [id number] [place] [address] [place] Cholesterol in VLDL [Mass/Vol] 15 mg/dL Normal <30 [facility] Comment on above: Order Comment: Speci men Type: BLOOD SPECIMENOrdering Facility: [facility] Address: [address] [place] [address] Performed By: #### 2 4331-1 ####[facility] LABCLIA [id number] [address] [id number] [place] [address] [place]#### 15556-0 ####[facility] LABCLIA [id number] [place] [address] [place] Cholesterol non HDL [Mass/Vol] 62 mg/dL Normal <130 [facility] Comment on above: Order Comment: Speci men Type: BLOOD SPECIMENOrdering Facility: [facility] Address: [address] [place] [address] Result Comment: <130 mg/dL, Optimal 130-159 mg/dL, Near optimal/above optimal 160-189 mg/dL, Borderline high 190-219 mg/dL, High >219 mg/dL, Very high Secondary prevention optimal non HDL Cholesterol levels are recommended to be <100 mg/dL Performed By: #### 2 4331-1 ####[facility] LABIA [id number] [address] [id number] [place] [address] [place]#### 34643-8 ####[facility] LABIA [id number] [place] [address] [place] Cholesterol.total/Luann sterol in HDL [Mass ratio] 2.32 {ratio} Normal <5.10 [facility] Comment on above: Order Comment: Speci men Type: BLOOD SPECIMENOrdering Facility: [facility] Address: [address] [place] [address] Performed By: #### 2 4331-1 ####[facility] LABCLIA [id number] [address] [id number] [place] [address] [place]#### 76862-0 ####[facility] LABCLIA [id number] [place] [address] [place] FASTING TIME 12 hrs Normal [facility] Comment on above: Order Comment: Speci men Type: BLOOD SPECIMENOrdering Facility: [facility] Address: [address] [place] [address] Performed By: #### 2 4331-1 ####[facility] LABCLIA [id number] [address] [id number] [place] [address] [place]#### 67078-4 ####[facility] LABCLIA [id number] [address] [place] Triglyceride [Mass/Vol] 73 mg/dL Normal <150 [facility] Comment on above: Order Comment: Speci men Type: BLOOD SPECIMENOrdering Facility: [facility] Address: [address] [place] [address] Result Comment: <150 mg/dL, Normal 150-199 mg/dL, Borderline high 200-499 mg/dL, High >499 mg/dL, Very high Performed By: #### 2 4331-1 ####[facility] LABCLIA [id number] [address] STATES [facility] [id number] [place] [address] [place]#### 31805-5 ####[facility] LABCLIA [id number] [address] [place] NT-proBNP [facility] 09-01 Natriuretic peptide.B prohormone N-Terminal [Mass/Vol] 131 pg/mL Normal <450 [facility] Comment on above: Order Comment: Speci men Type: BLOOD SPECIMENOrdering Facility: [facility] Address: [address] [place] [address] Performed By: #### 2 4331-1 ####[facility] LABCLIA [id number] [place] [id number] [facility] [id number] [place] [id number] [place] [address] [place]#### 13931-5 ####[facility] LABIA [id number] [place] [id number] [facility] [place] CNOVon 08-31-2024 CNOV Office Visit (KIRK) FRANCISSONIYA SMITH Ella ([id number]) 1940 M Date Time Provider Department 08/31/24 3:40 PM MARJ MACKEY During your visit today, we recorded the following information about you: Pulse Respiration Blood pressure Weight 74/minute 14/minute 98/56 91.2 kg Height 1.702 m Marj Mackey MD 08/31/2024 4:39 PM Formerly [facility], [facility] SECTION OF REGIONAL CARDIOLOGY Cardiology ([facility]) [address] [facility] [id number] OUTPATIENT VISIT DATE 08/31/2024 PRIMARY CARE PHYSICIAN: Oniel Francis [address] [place] [address] HISTORY OF PRESENT ILLNESS: Mr. Cooley is a 83 year old gentleman with a history of coronary artery disease with remote coronary bypass grafting with an SVG graft to dominant left circumflex, left PDA with a Y graft to the diagonal branch (2002). He underwent repeat grafting aortic valve replacement in 2019 with a LLANOS graft LAD and Brenice-Rush aortic valve replacement. He has a history [...] 10/09/2002 Living will on file 12/12/2021 DPA: Matthew () Meniscus tear 12/27/2015 Right, minimal. Seen [facility] Microscopic hematuria 01/10/2021 Saw Luciano 02/2021 [...] FECAL OC (more content not included)... Normal [facility] Venous Duplex US - Claudy Extre mon 05-08-2024 Venous Duplex US - Claudy Extrem [facility] [address] [place] [address] Venous Duplex US - Claudy Extrem 05/08/24 1257 MR#: [id number] Acct: [id number] Name: SONIYA COOLEY Rep #: [id number] : 1940 83 From: Carloz Voss MD Attending Dr: Cristal Giron, [employer] Status: REG CLI Ordering Dr: Cristal Giron [employer] Date: 05/08/24 Location: [facility] Sex: M C [...] preliminary report was called and/or faxed to Cristal Giron @ [phone] @ 13:20. VL/Venous Duplex US - Claudy [...] cyst. Clinical correlation is advised. Ordering Physician: Cristal Giron Referring Physician: Oniel Francis Performed By: Ashtyn Foster, PÉREZ, RVT 05/08/24 2251 Date Carloz Voss MD CC: INDY Giron; Dr. Oniel Francis MD Date Dictated: 05/08/24 1257 Date Transcribed: 05/08/24 225 Cost Analyst: Signed Normal [facility] .Auto Diffon 02-19-2024 Basophil, Absolute 0.0 10 3/mcL Normal 0.0-0.2 [facility] ([place]) Comment on above: Performed By: #### A BOGEL, ANEU, CBC, GFR, ADIFF, ABSGEL, BMP, ALB #### [address] [address] Basophils/100 WBC (Bld) 0.0 % Normal 0.0-2.5 [facility] ([place]) Comment on above: Performed By: #### A BOGEL, ANEU, CBC, GFR, ADIFF, ABSGEL, BMP, ALB #### [address] [address] Eosinophil, Absolute 0.0 10 3/mcL Normal 0.0-0.4 [facility] ([place]) Comment on above: Performed By: #### A BOGEL, ANEU, CBC, GFR, ADIFF, ABSGEL, BMP, ALB #### [address] [address] Eosinophils/100 WBC (Bld) 0.0 % Normal 0.0-7.0 [facility] ([place]) Comment on above: Performed By: #### A BOGEL, ANEU, CBC, GFR, ADIFF, ABSGEL, BMP, ALB #### [address] [address] Lymphocyte, Absolute 1.2 10 3/mcL Normal 0.8-3.9 [facility] ([place]) Comment on above: Performed By: #### A BOGEL, ANEU, CBC, GFR, ADIFF, ABSGEL, BMP, ALB #### [address] [address] Lymphocytes/100 WBC (Bld) 8.8 % Low 10.0-50.0 [facility] ([place]) Comment on above: Performed By: #### A BOGEL, ANEU, CBC, GFR, ADIFF, ABSGEL, BMP, ALB #### [address] [address] Monocyte, Absolute 0.6 10 3/mcL Normal 0.2-1.0 [facility] ([place]) Comment on above: Performed By: #### A BOGEL, ANEU, CBC, GFR, ADIFF, ABSGEL, BMP, ALB #### [address] [address] Monocytes/100 WBC (Bld) 4.7 % Normal 1.7-13.0 A [facility] ([place]) Comment on above: Performed By: #### A BOGEL, ANEU, CBC, GFR, ADIFF, ABSGEL, BMP, ALB #### [address] [address] Neutrophils/100 WBC (Bld) 86.5 % High 37.0-80.0 [facility] ([place]) Comment on above: Performed By: #### A BOGEL, ANEU, CBC, GFR, ADIFF, ABSGEL, BMP, ALB #### [address] [address] .GFRon 02-19-2024 GFR 95 ml/min/1.73sqm Normal [facility] ([place]) Comment on above: Result Comment: GFR Population [...] CBC, GFR, ADIFF, ABSGEL, BMP, ALB #### [address] [address] GFR Non- 79 ml/min/1.73sqm Normal [facility] ([place]) Comment on above: Result Comment: GFR Population [...] CBC, GFR, ADIFF, ABSGEL, BMP, ALB #### [address] [address] .NEUABSon 02-19-2024 Neutrophil, Absolute 11.7 10 3/mcL High 2.9-6.2 A [facility] ([place]) Comment on above: Performed By: #### A BOGEL, ANEU, CBC, GFR, ADIFF, ABSGEL, BMP, ALB #### [address] [address] BMPon 02-19-2024 BUN/Creatinine Ratio 25 ratio Normal 7-27 [facility] ([place]) Comment on above: Performed By: #### A BOGEL, ANEU, CBC, GFR, ADIFF, ABSGEL, BMP, ALB #### [address] [address] Calcium [Mass/Vol] 8.9 mg/dL Normal 8.4-10.2 [facility] ([place]) Comment on above: Performed By: #### A BOGEL, ANEU, CBC, GFR, ADIFF, ABSGEL, BMP, ALB #### [address] [place] [address] Chloride [Moles/Vol] 105 mmol/L Normal 98-107 [facility] ([place]) Comment on above: Performed By: #### A ARA, ANEU, CBC, GFR, ADIFF, ABSGEL, BMP, ALB #### [address] [address] CO2 [Moles/Vol] 26 mmol/L Normal 23-31 [facility] ([place]) Comment on above: Performed By: #### A JAMIEEL, ANEU, CBC, GFR, ADIFF, ABSGEL, BMP, ALB #### [address] [address] Creatinine [Mass/Vol] 0.92 mg/dL Normal 0.70-1.30 [facility] ([place]) Comment on above: Performed By: #### A ARA, ANEU, CBC, GFR, ADIFF, ABSGEL, BMP, ALB #### [address] [address] Electrolyte Balance 8.0 mEq/L Normal 4.0-15.0 [facility] ([place]) Comment on above: Performed By: #### A ARA, ANEU, CBC, GFR, ADIFF, ABSGEL, BMP, ALB #### [address] [address] Glucose [Mass/Vol] 131 mg/dL High 83-110 [facility] ([place]) Comment on above: Performed By: #### A ARA, ANEU, CBC, GFR, ADIFF, ABSGEL, BMP, ALB #### [address] [address] Potassium [Moles/Vol] 4.2 mmol/L Normal 3.5-5.1 [facility] ([place]) Comment on above: Performed By: #### A ARA ANEU, CBC, GFR, ADIFF, ABSGEL, BMP, ALB #### [address] [address] Sodium [Moles/Vol] 139 mmol/L Normal 136-145 [facility] ([place]) Comment on above: Performed By: #### A JAMIEEL, [place], CBC, GFR, ADIFF, ABSGEL, BMP, ALB #### [place] [address] Urea nitrogen [Mass/Vol] 23 mg/dL High 7-18 [facility] ([place]) Comment on above: Performed By: #### A BOGEL, ANEU, CBC, GFR, ADIFF, ABSGEL, BMP, ALB #### [place] [id number] CBCon 02-19-2024 Erythrocyte distribution width (RBC) [Ratio] 13.7 % Normal 11.5-14.5 [facility] ([place]) Comment on above: Performed By: #### G FR, ADIFF, CBC, ANEU, BMP #### [place] [address] Hematocrit (Bld) [Volume fraction] 37.1 % Low 42.0-52.0 [facility] ([place]) Comment on above: Performed By: #### G FR, ADIFF, CBC, ANEU, BMP #### [place] [address] Hgb 12.7 G/dL Low 14.0-18.0 [facility] ([place]) Comment on above: Performed By: #### G FR, ADIFF, CBC, ANEU, BMP #### [place] [address] MCH (RBC) [Entitic mass] 33.1 pg High 27.0-31.2 [facility] ([place]) Comment on above: Performed By: #### G FR, ADIFF, CBC, ANEU, BMP #### [place] [address] MCHC 34.2 G/dL Normal 31.8-35.4 [facility] ([place]) Comment on above: Performed By: #### G FR, ADIFF, CBC, ANEU, BMP #### [place] [address] MCV (RBC) [Entitic vol] 96.7 fL High 80.0-94.0 A [facility] ([place]) Comment on above: Performed By: #### G FR, ADIFF, CBC, ANEU, BMP #### [address] [address] Platelet 135 10 3/mcL Normal 130-400 [facility] ([place]) Comment on above: Performed By: #### G FR, ADIFF, CBC, ANEU, BMP #### [address] [address] Platelet mean volume (Bld) [Entitic vol] 9.4 fL Normal 7.4-10.4 [facility] ([place]) Comment on above: Performed By: #### G FR, ADIFF, CBC, ANEU, BMP #### [address] [address] RBC 3.84 10 6/mcL Low 4.04-6.13 [facility] ([place]) Comment on above: Performed By: #### G FR, ADIFF, CBC, ANEU, BMP #### [address] [address] WBC 13.6 10 3/mcL High 4.6-10.8 [facility] ([place]) Comment on above: Performed By: #### G FR, ADIFF, CBC, ANEU, BMP #### [address] [address] LABORATORYOrdered By: SYSTEM SYSTEM on 02-19-2024 Basophil, [...] ABO/Rh Interp Positive Invalid Interpretation Code [facility] ([place]) Comment on above: Performed By: #### A BOGEL, ANEU, CBC, GFR, ADIFF, ABSGEL, BMP, ALB #### [place] [id number] [place], [place] [address] ABS (Gel)on 02-18-2024 ABSC Interp (Gel) Negative Normal [facility] ([place]) Comment on above: Performed By: #### A BOGEL, ANEU, CBC, GFR, ADIFF, ABSGEL, BMP, ALB #### [place] [id number] [place], [place] [address] LABORATORYOrdered By: Pee Leavitt on 02-18-2024 ABO [...] PM Ordering Provider: DEAN CALDWELL Normal [facility] ([place]) XR Chest PA and Lateralon IMPRESSION: Overall unremarkable exam with no acute radiographic abnormality. Cost Analyst: PSCB Transcribe Date/Time: Feb 02 2024 10:25A Dictated by : MAGO RAINEY MD This examination was interpreted and the report reviewed and electronically signed by: MAGO RAINEY MD on Feb 02 2024 10:26AM [facility] DIVISION OF RADIOLOGY * * *Final Report* [...] soft tissues: Unremarkable. DIVISION OF RADIOLOGY Provider, [facility]ing - 02/02/2024 * * *Final Report* * [...] unremarkable exam with no acute radiographic abnormality. Cost Analyst: PSCB Transcribe Date/Time: Feb 02 2024 10:25A Dictated by : MAGO RAINEY MD This examination was interpreted and the report reviewed and electronically signed by: MAGO RAINEY MD on Feb 02 2024 10:26AM EST [facility] XR Chest PA and LateralOrder ed By: Cc Provider on 02-02-2024 [facility] XR Chest PA and Lateralon Radiology Study observation (narrative) [facility] .Auto Diffon 01-27-2024 Basophil, Absolute 0.0 10 3/mcL Normal 0.0-0.2 [facility] ([place]) Comment on above: Performed By: #### A BOGEL, ANEU, CBC, GFR, ADIFF, ABSGEL, BMP, ALB #### [address] [address] Basophils/100 WBC (Bld) 0.4 % Normal 0.0-2.5 A [facility] ([place]) Comment on above: Performed By: #### A BOGEL, ANEU, CBC, GFR, ADIFF, ABSGEL, BMP, ALB #### [address] [address] Eosinophil, Absolute 0.4 10 3/mcL Normal 0.0-0.4 [facility] ([place]) Comment on above: Performed By: #### A BOGEL, ANEU, CBC, GFR, ADIFF, ABSGEL, BMP, ALB #### [address] [address] Eosinophils/100 WBC (Bld) 5.5 % Normal 0.0-7.0 [facility] ([place]) Comment on above: Performed By: #### A BOGEL, ANEU, CBC, GFR, ADIFF, ABSGEL, BMP, ALB #### [address] [address] Lymphocyte, Absolute 2.7 10 3/mcL Normal 0.8-3.9 [facility] ([place]) Comment on above: Performed By: #### A BOGEL, ANEU, CBC, GFR, ADIFF, ABSGEL, BMP, ALB #### [address] [address] Lymphocytes/100 WBC (Bld) 40.8 % Normal 10.0-50.0 [facility] ([place]) Comment on above: Performed By: #### A BOGEL, ANEU, CBC, GFR, ADIFF, ABSGEL, BMP, ALB #### [address] [address] Monocyte, Absolute 0.7 10 3/mcL Normal 0.2-1.0 [facility] ([place]) Comment on above: Performed By: #### A BOGEL, ANEU, CBC, GFR, ADIFF, ABSGEL, BMP, ALB #### [address] [address] Monocytes/100 WBC (Bld) 10.3 % Normal 1.7-13.0 A [facility] ([place]) Comment on above: Performed By: #### A BOGEL, ANEU, CBC, GFR, ADIFF, ABSGEL, BMP, ALB #### [address] [address] Neutrophils/100 WBC (Bld) 43.0 % Normal 37.0-80.0 [facility] ([place]) Comment on above: Performed By: #### A BOGEL, ANEU, CBC, GFR, ADIFF, ABSGEL, BMP, ALB #### [address] [address] .GFRon 01-27-2024 GFR 121 ml/min/1.73sqm Normal [facility] ([place]) Comment on above: Result Comment: GFR Population [...] CBC, GFR, ADIFF, ABSGEL, BMP, ALB #### [address] [address] GFR Non- 100 ml/min/1.73sqm Normal [facility] ([place]) Comment on above: Result Comment: GFR Population [...] CBC, GFR, ADIFF, ABSGEL, BMP, ALB #### [address] [address] .NEUABSon 01-27-2024 Neutrophil, Absolute 2.9 10 3/mcL Normal 2.9-6.2 [facility] ([place]) Comment on above: Performed By: #### A BOGEL, ANEU, CBC, GFR, ADIFF, ABSGEL, BMP, ALB #### [address] [address] ABO/Rh (Gel)on 01-27-2024 ABO/Rh Interp Positive Invalid Interpretation Code [facility] ([place]) Comment on above: Order Comment: SURG PEPITO 7/16 -AC Performed By: #### A BOGEL, ANEU, CBC, GFR, ADIFF, ABSGEL, BMP, ALB #### [address] [address] ABS (Gel)on 01-27-2024 ABSC Interp (Gel) Negative Normal [facility] ([place]) Comment on above: Order Comment: SURG PEPITO 7/16 -AC Performed By: #### A BOGEL, ANEU, CBC, GFR, ADIFF, ABSGEL, BMP, ALB #### [address] [address] ALBon 01-27-2024 Albumin Level 3.9 G/dL Normal 3.4-4.8 [facility] ([place]) Comment on above: Performed By: #### A BOGEL, ANEU, CBC, GFR, ADIFF, ABSGEL, BMP, ALB #### [address] [address] BMPon 01-27-2024 BUN/Creatinine Ratio 28 ratio High 7-27 [facility] ([place]) Comment on above: Performed By: #### A BOGEL, ANEU, CBC, GFR, ADIFF, ABSGEL, BMP, ALB #### [address] [address] Calcium [Mass/Vol] 8.8 mg/dL Normal 8.4-10.2 [facility] ([place]) Comment on above: Performed By: #### A BOGEL, ANEU, CBC, GFR, ADIFF, ABSGEL, BMP, ALB #### [address] [address] Chloride [Moles/Vol] 104 mmol/L Normal 98-107 [facility] ([place]) Comment on above: Performed By: #### A BOGEL, ANEU, CBC, GFR, ADIFF, ABSGEL, BMP, ALB #### [address] [address] CO2 [Moles/Vol] 30 mmol/L Normal 23-31 [facility] ([place]) Comment on above: Performed By: #### A BOGEL, ANEU, CBC, GFR, ADIFF, ABSGEL, BMP, ALB #### [address] [address] Creatinine [Mass/Vol] 0.75 mg/dL Normal 0.70-1.30 [facility] ([place]) Comment on above: Performed By: #### A BOGEL, ANEU, CBC, GFR, ADIFF, ABSGEL, BMP, ALB #### [address] [address] Electrolyte Balance 7.0 mEq/L Normal 4.0-15.0 [facility] ([place]) Comment on above: Performed By: #### A BOGEL, ANEU, CBC, GFR, ADIFF, ABSGEL, BMP, ALB #### [address] [address] Glucose [Mass/Vol] 113 mg/dL High 83-110 [facility] ([place]) Comment on above: Performed By: #### A BOGEL, ANEU, CBC, GFR, ADIFF, ABSGEL, BMP, ALB #### [address] [address] Potassium [Moles/Vol] 4.4 mmol/L Normal 3.5-5.1 [facility] ([place]) Comment on above: Performed By: #### A BOGEL, ANEU, CBC, GFR, ADIFF, ABSGEL, BMP, ALB #### [address] [address] Sodium [Moles/Vol] 141 mmol/L Normal 136-145 [facility]) Comment on above: Performed By: #### A BOGEL, ANEU, CBC, GFR, ADIFF, ABSGEL, BMP, ALB #### [address] [address] Urea nitrogen [Mass/Vol] 21 mg/dL High 7-18 [facility]) Comment on above: Performed By: #### A BOGEL, ANEU, CBC, GFR, ADIFF, ABSGEL, BMP, ALB #### [address] [address] CBCon 01-27-2024 Erythrocyte distribution width (RBC) [Ratio] 13.8 % Normal 11.5-14.5 [facility]) Comment on above: Order Comment: Pre-A dmission Testing Performed By: #### A BOGEL, ANEU, CBC, GFR, ADIFF, ABSGEL, BMP, ALB #### [address] [address] Hematocrit (Bld) [Volume fraction] 43.2 % Normal 42.0-52.0 [facility]) Comment on above: Order Comment: Pre-A dmission Testing Performed By: #### A BOGEL, ANEU, CBC, GFR, ADIFF, ABSGEL, BMP, ALB #### [address] [address] Hgb 15.2 G/dL Normal 14.0-18.0 [facility] ([place]) Comment on above: Order Comment: Pre-A dmission Testing Performed By: #### A BOGEL, ANEU, CBC, GFR, ADIFF, ABSGEL, BMP, ALB #### [address] [address] MCH (RBC) [Entitic mass] 33.8 pg High 27.0-31.2 [facility] ([place]) Comment on above: Order Comment: Pre-A dmission Testing Performed By: #### A BOGEL, ANEU, CBC, GFR, ADIFF, ABSGEL, BMP, ALB #### [address] [address] MCHC 35.1 G/dL Normal 31.8-35.4 [facility] ([place]) Comment on above: Order Comment: Pre-A dmission Testing Performed By: #### A BOGEL, ANEU, CBC, GFR, ADIFF, ABSGEL, BMP, ALB #### [address] [address] MCV (RBC) [Entitic vol] 96.3 fL High 80.0-94.0 [facility] ([place]) Comment on above: Order Comment: Pre-A dmission Testing Performed By: #### A BOGEL, ANEU, CBC, GFR, ADIFF, ABSGEL, BMP, ALB #### [address] [address] Platelet 147 10 3/mcL Normal 130-400 [facility] ([place]) Comment on above: Order Comment: Pre-A dmission Testing Performed By: #### A BOGEL, ANEU, CBC, GFR, ADIFF, ABSGEL, BMP, ALB #### [address] [address] Platelet mean volume (Bld) [Entitic vol] 10.2 fL Normal 7.4-10.4 [facility] ([place]) Comment on above: Order Comment: Pre-A dmission Testing Performed By: #### A BOGEL, ANEU, CBC, GFR, ADIFF, ABSGEL, BMP, ALB #### [address] [address] RBC 4.49 10 6/mcL Normal 4.04-6.13 [facility] ([place]) Comment on above: Order Comment: Pre-A dmission Testing Performed By: #### A BOGEL, ANEU, CBC, GFR, ADIFF, ABSGEL, BMP, ALB #### [place] [id number] [place], [place] [address] WBC 6.7 10 3/mcL Normal 4.6-10.8 [facility] ([place]) Comment on above: Order Comment: Pre-A dmission Testing Performed By: #### A BOGEL, ANEU, CBC, GFR, ADIFF, ABSGEL, BMP, ALB #### [place] [id number] [place], [place] [address] CT KNEE W/O CONTRAST LEFTon 01-27-2024 CT [...] 1:37:20 PM Ordering Provider: DEAN Rivas [facility] ([place]) LABORATORYOrdered By: Reg Heck on 01-27-2024 ABO [...] Comment on above: Result Comment: [place] [id number] MRSA PCR Int MRSA DNA not detected [...] (PCR) Not detected Normal Not Detected [facility] ([place]) Comment on above: Result Comment: [place] [id number] Performed By: #### A BOGEL, ANEU, CBC, GFR, ADIFF, ABSGEL, BMP, ALB #### [place] [id number] [place], [place] [address] MRSA PCR Int Normal [facility] ([place]) Comment on above: Result Comment: MRSA DNA [...] GFR, ADIFF, ABSGEL, BMP, ALB #### [place] [address] [place], [place] [address] XR Chest PA and Lateralon IMPRESSION: Questionable vague hazy opacity in the left midlung. Consider short-term follow-up. Cost Analyst: GEOFFREY Transcribe Date/Time: Dec 14 2023 1:30P Dictated by : JAGUAR GONZALES MD This examination was interpreted and the report reviewed and electronically signed by: JAGUAR GONZALES MD on Dec 14 2023 1:32PM [facility] DIVISION OF RADIOLOGY * * *Final Report* [...] from median sternotomy. DIVISION OF RADIOLOGY Provider, [facility] - 12/14/2023 * * *Final Report* * [...] in the left midlung. Consider short-term follow-up. Cost Analyst: PSCBrianna Transcribe Date/Time: Dec 14 2023 1:30P Dictated by : JAGUAR GONZALES MD This examination was interpreted and the report reviewed and electronically signed by: JAGUAR GONZALES MD on Dec 14 2023 1:32PM EST [facility] Radiology Study observation (narrative) Ebony calero [facility] XR Chest PA and LateralOrder ed By: Ccf Provider on 12-14-2023 [facility] TSH BLDon 06-23-2022 TSH Qn 1.610 m[IU]/L 0.270 - 4.200 mIU/L [facility] HbA1c (Bld)on 06-22-2022 Average glucose Estimated from glycated hemoglobin (Bld) [Mass/Vol] 117 mg/dL [facility] HbA1c (Bld) [Mass fraction] 5.7 % High 4.3 - 5.6 % [facility] CNPNon 12-16-2020 NIGHATN Telephone (CODY) SONIYA COOLEY ([id number]) 1940 M Date Time Provider Department 12/16/20 ABBY PATE During your visit today, we recorded the following information about you: Michelle Blackmon Ma 12/16/2020 4:00 PM Signed Physical Therapy order faxed to Amy at [facility] PT at [phone]. Michelle Blackmon REVENUE TAX SPECIALIST (AAMA) Allergies As of Date: 12/16/2020 Noted Allergy Reaction IODINE 10/09/2002 14 - Other: See Comments Comments: ?decreased BP with iodinated contrast during a cardiac cath. Pt reports he was told by the hand spring repairer helper that they almost lost him due to [...] * FLUTICASONE PROPIONATE 50 MCG* Use 1 [place] in each nostril o* CHOLECALCIFEROL (VITAMIN D3) [...] Status:Closed by MICHELLE BLACKMON MA on 12/16/20 [facility] CNOVon 10-06-2020 CNOV Office Visit (CODY) SONIYA COOLEY ([id number]) 1940 M Date Time Provider Department 10/06/20 [...] (FLONASE) 50 mcg/actuation nasal spray Use 1 [place] in each nostril once daily. Rinse mouth [...] decreased (more content not included)... [facility] Visit (CODY) SONIYA COOLEY ([id number]) 1940 M Date Time Provider Department 06/03/20 [...] (FLONASE) 50 mcg/actuation nasal spray Use 1 [place] in each nostril once daily. Rinse mouth [...] (more content not included)... Normal [facility] INR, POCT Whole Bloodon - INR Coag RelTime (Bld) 1.40 {INR} High 0.90-1.10 [facility] Comment on above: Result Comment: Brayan dard Therapy 2.0-3.0 High Dose 2.5-3.5 Performed By: #### P INR #### [facility] [address] [id number] Vital Signs Date Time Vital Sign Value Performing Clinician Facility 04-12-2025 11:12-0400 Diastolic blood pressure 68 mm[Hg] Marj Mackey MD Work Phone: [facility] 04-12-2025 11:12-0400 Systolic blood pressure 118 mm[Hg] Marj Mackey MD Work Phone: [facility] 04-12-2025 10:56-0400 Body mass index (BMI) [Ratio] 30.81 kg/m2 Marj Mackey MD Work Phone: [facility] 04-12-2025 10:56-0400 Body weight 85.28 kg Marj Mackey MD Work Phone: [facility] 04-12-2025 10:56-0400 Heart rate 61 /min Marj Mackey MD Work Phone: [facility] 04-12-2025 10:56-0400 SaO2% (BldA) [Mass fraction] 96 % Marj Mackey MD Work Phone: [facility] 04-10-2025 20:52-0400 Body temperature 98.1 [degF] Dr. Oniel Francis MD Work Phone: [facility] 04-10-2025 20:52-0400 Diastolic blood pressure 83 mm[Hg] Dr. Oniel Francis MD Work Phone: [facility] 04-10-2025 20:52-0400 Heart rate 75 /min Dr. Oniel Francis MD Work Phone: [facility] 04-10-2025 20:52-0400 Respiratory rate 20 /min Dr. Oniel Francis MD Work Phone: [facility] 04-10-2025 20:52-0400 SaO2% (BldA) [Mass fraction] 92 % Dr. Oniel Francis MD Work Phone: 6(512)549-126262 [place] [address] 04-10-2025 20:52-0400 Systolic blood pressure 169 mm[Hg] Dr. Oniel Francis MD Work Phone: 1(120)840-254362 [place] [address] 04-10-2025 18:51-0400 Body mass index (BMI) [Ratio] 30.5 kg/m2 Dr. Oniel Francis MD Work Phone: 8(347)001-491262 [place] [address] 04-10-2025 18:51-0400 Body weight 88.[address] Oniel Francis MD Work Phone: 4(457)748-333062 [place] [address] 04-10-2025 18:48-0400 Body height 170.[address] Oniel Francis MD Work Phone: 5(914)047-445662 [place] [address] 04-10-2025 07:30-0400 Body temperature 98.4 [degF] Dr. Oniel Francis MD Work Phone: 5(590)843-843862 [place] [address] 04-10-2025 07:30-0400 Diastolic blood pressure 69 mm[Hg] Dr. Oniel Francis MD Work Phone: 8(418)157-749262 [place] [address] 04-10-2025 07:30-0400 Heart rate 66 /min Dr. Oniel Francis MD Work Phone: 9(769)979-775162 [place] [address] 04-10-2025 07:30-0400 Respiratory rate 18 /min Dr. Oniel Francis MD Work Phone: 0(103)065-300062 [place] [address] 04-10-2025 07:30-0400 SaO2% (BldA) [Mass fraction] 93 % Dr. Oniel Francis MD Work Phone: 3(200)510-697062 [place] [address] 04-10-2025 07:30-0400 Systolic blood pressure 153 mm[Hg] Dr. Oniel Francis MD Work Phone: 6(924)664-321462 [place] [address] 04-10-2025 06:05-0400 Body height 170.[address] Oniel Francis MD Work Phone: 9(738)836-408162 [place] [address] 04-10-2025 06:05-0400 Body mass index (BMI) [Ratio] 30.4 kg/m2 Dr. Oniel Francis MD Work Phone: 2(089)606-025662 [place] [address] 04-10-2025 06:05-0400 Body weight 88.[address] Oniel Francis MD Work Phone: 9(545)793-814262 [place] [address] 04-08-2025 13:42-0400 Body temperature 97.6 [degF] Dr. Oniel Francis MD Work Phone: 4(037)174-926562 [place] [address] 04-08-2025 13:42-0400 Diastolic blood pressure 62 mm[Hg] Dr. Oniel Francis MD Work Phone: 8(134)916-633462 [place] [address] 04-08-2025 13:42-0400 Heart rate 66 /min Dr. Oniel Francis MD Work Phone: 8(785)837-946562 [place] [address] 04-08-2025 13:42-0400 Respiratory rate 16 /min Dr. Oniel Francis MD Work Phone: 6(137)081-946762 [place] [address] 04-08-2025 13:42-0400 SaO2% (BldA) [Mass fraction] 94 % Dr. Oniel Francis MD Work Phone: 4(364)567-977362 [place] [address] 04-08-2025 13:42-0400 Systolic blood pressure 114 mm[Hg] Dr. Oniel Francis MD Work Phone: 3(112)279-538262 [place] [address] 04-08-2025 07:05-0400 Inhaled oxygen flow rate 2 L/min Dr. Oniel Francis MD Work Phone: 7(353)325-227862 [place] [address] 04-07-2025 15:42-0400 Body height 170.[address] Oniel Francis MD Work Phone: 3(780)020-571862 [place] [address] 04-07-2025 15:42-0400 Body mass index (BMI) [Ratio] 29.3 kg/m2 Dr. Oniel Francis MD Work Phone: 1(192)449-386762 [place] [address] 04-07-2025 15:42-0400 Body weight [address] Oniel Francis MD Work Phone: 1(358)368-494962 [place] [address] 02-26-2025 08:26-0400 Body mass index (BMI) [Ratio] 32.37 kg/m2 Leti Clutter PA-C Work Phone: [facility] 02-26-2025 [id number] Body temperature 97.7 [degF] Leti Clutter PA-C Work Phone: [facility] 02-26-2025 08:26-0400 Body weight 89.6 kg Leti Clutter PA-C Work Phone: [facility] 02-26-2025 08:26-0400 Diastolic blood pressure 70 mm[Hg] Leti Clutter PA-C Work Phone: [facility] 02-26-2025 08:26-0400 Heart rate 61 /min Leti Clutter PA-C Work Phone: [facility] 02-26-2025 08:26-0400 Respiratory rate 20 /min Leti Clutter PA-C Work Phone: [facility] 02-26-2025 08:26-0400 SaO2% (BldA) [Mass fraction] 95 % Leti Clutter PA-C Work Phone: [facility] 02-26-2025 08:26-0400 Systolic blood pressure 98 mm[Hg] Leti Clutter PA-C Work Phone: [facility] 02-08-2025 08:07-0400 Body height 166.4 cm Oniel Francis MD Work Phone: [facility] 02-08-2025 [id number] Body mass index (BMI) [Ratio] 32.81 kg/m2 Oniel Francis MD Work Phone: [facility] 02-08-2025 [id number] Body weight 90.81 kg Oniel Francis MD Work Phone: [facility] 02-08-2025 08:07-0400 Diastolic blood pressure 64 mm[Hg] Oniel Francis MD Work Phone: [facility] 02-08-2025 08:07-0400 Heart rate 60 /min Oniel Francis MD Work Phone: [facility] 02-08-2025 08:07-0400 Respiratory rate 18 /min Oniel Francis MD Work Phone: [facility] 02-08-2025 08:07-0400 Systolic blood pressure 92 mm[Hg] Oniel Francis MD Work Phone: [facility] 01-19-2025 17:16-0400 Body temperature 97.7 [degF] Dr. Oniel Francis MD Work Phone: [facility] 01-19-2025 17:16-0400 Diastolic blood pressure 79 mm[Hg] Dr. Oniel Francis MD Work Phone: [facility] 01-19-2025 17:16-0400 Heart rate 61 /min Dr. Oniel Francis MD Work Phone: [facility] 01-19-2025 17:16-0400 Respiratory rate 17 /min Dr. Oniel Francis MD Work Phone: [facility] 01-19-2025 17:16-0400 SaO2% (BldA) [Mass fraction] 90 % Dr. Oniel Francis MD Work Phone: [facility] 01-19-2025 17:16-0400 Systolic blood pressure 132 mm[Hg] Dr. Oniel Francis MD Work Phone: [facility] 01-19-2025 17:00-0400 Body mass index (BMI) [Ratio] 32 kg/m2 Dr. Oniel Francis MD Work Phone: [facility] 01-19-2025 16:08-0400 Body height 170.[address] Oniel Francis MD Work Phone: [facility] 01-19-2025 16:08-0400 Body weight 92.[address] Oniel Francis MD Work Phone: 3(262)612-112454 [place] [address] 01-19-2025 12:51-0400 Inhaled oxygen flow rate 3 L/min Dr. Oniel Francis MD Work Phone: 3(239)272-244354 [place] [address] 01-19-2025 06:45-0400 Inhaled oxygen flow rate 1 L/min Dr. Oniel Francis MD Work Phone: 5(171)428-725062 [place] [address] 01-19-2025 06:45-0400 SaO2% (BldA) [Mass fraction] 94 % Dr. Oniel Francis MD Work Phone: 6(421)841-499962 [place] [address] 01-19-2025 06:30-0400 Diastolic blood pressure 98 mm[Hg] Dr. Oniel Francis MD Work Phone: 8(121)818-679862 [place] [address] 01-19-2025 06:30-0400 Heart rate 60 /min Dr. Oniel Francis MD Work Phone: 7(380)921-300862 [place] [address] 01-19-2025 06:30-0400 Respiratory rate 18 /min Dr. Oniel Francis MD Work Phone: 2(859)173-295162 [place] [address] 01-19-2025 06:30-0400 Systolic blood pressure 127 mm[Hg] Dr. Oniel Francis MD Work Phone: 4(984)154-830362 [place] [address] 01-19-2025 06:22-0400 Body temperature 98.2 [degF] Dr. Oniel Francis MD Work Phone: 4(011)565-972562 [place] [address] 01-19-2025 03:57-0400 Body height 170.[address] Oniel Francis MD Work Phone: 2(911)218-412662 [place] [address] 01-19-2025 03:57-0400 Body mass index (BMI) [Ratio] 33.4 kg/m2 Dr. Oniel Francis MD Work Phone: 5(115)661-123862 [place] [address] 01-19-2025 03:57-0400 Body weight 96.[address] Oniel Francis MD Work Phone: 0(185)279-412462 [place] [address] 01-18-2025 15:22-0400 Body height 170.[address] Oniel Francis MD Work Phone: 7(135)568-275762 [place] [address] 09-11-2024 14:46-0500 Body height 170.2 cm Abby Pate MD Work Phone: [facility] 09-11-2024 14:46-0500 Body mass index (BMI) [Ratio] 32.49 kg/m2 Abby Pate MD Work Phone: [facility] 09-11-2024 14:46-0500 Body weight 94.1 kg Abby Pate MD Work Phone: [facility] 09-11-2024 14:46-0500 Diastolic blood pressure 88 mm[Hg] Abby Pate MD Work Phone: [facility] 09-11-2024 14:46-0500 Heart rate 68 /min Abby Pate MD Work Phone: [facility] 09-11-2024 14:46-0500 SaO2% (BldA) [Mass fraction] 93 % Abby Pate MD Work Phone: [facility] 09-11-2024 14:46-0500 Systolic blood pressure 150 mm[Hg] Abby Pate MD Work Phone: [facility] 08-31-2024 15:43-0500 Body height 170.2 cm Marj Mackey MD Work Phone: [facility] 08-31-2024 15:43-0500 Body mass index (BMI) [Ratio] 31.48 kg/m2 Marj Mackey MD Work Phone: [facility] 08-31-2024 15:43-0500 Body weight 91.17 kg Marj Mackey MD Work Phone: [facility] 08-31-2024 15:43-0500 Diastolic blood pressure 56 mm[Hg] Marj Mackey MD Work Phone: [facility] 08-31-2024 15:43-0500 Heart rate 74 /min Marj Mackey MD Work Phone: [facility] 08-31-2024 15:43-0500 Respiratory rate 14 /min Marj Mackey MD Work Phone: [facility] 08-31-2024 15:43-0500 SaO2% (BldA) [Mass fraction] 95 % Marj Mackey MD Work Phone: [facility] 08-31-2024 15:43-0500 Systolic blood pressure 98 mm[Hg] Marj Mackey MD Work Phone: [facility] 05-07-2024 15:30-0400 Body mass index (BMI) [Ratio] 31.32 kg/m2 Cristal Giron APRN.WAREHOUSE SHIPPING ASSOCIATE Work Phone: [facility] 05-07-2024 15:30-0400 Body weight 90.72 kg Cristal Giron APRN.WAREHOUSE SHIPPING ASSOCIATE Work Phone: [facility] 05-07-2024 15:30-0400 Diastolic blood pressure 67 mm[Hg] Cristal Giron LOADING MACHINE OPERATOR.WAREHOUSE SHIPPING ASSOCIATE Work Phone: [facility] 05-07-2024 15:30-0400 Heart rate 63 /min Cristal Giron APRN.WAREHOUSE SHIPPING ASSOCIATE Work Phone: [facility] 05-07-2024 15:30-0400 Respiratory rate 16 /min Cristal Giron APRN.WAREHOUSE SHIPPING ASSOCIATE Work Phone: [facility] 05-07-2024 15:30-0400 Systolic blood pressure 125 mm[Hg] Cristal Giron LOADING MACHINE OPERATOR.WAREHOUSE SHIPPING ASSOCIATE Work Phone: [facility] 04-07-2024 10:57-0400 Diastolic blood pressure 70 mm[Hg] Ella Valdovinos PA-C Work Phone: [facility] 04-07-2024 10:57-0400 Systolic blood pressure 104 mm[Hg] Ella Valdovinos PA-C Work Phone: [facility] 04-07-2024 10:44-0400 Body mass index (BMI) [Ratio] 30.7 kg/m2 Ella Valdovinos PA-C Work Phone: [facility] 04-07-2024 10:44-0400 Body temperature 97.9 [degF] Ella Valdovinos PA-C Work Phone: [facility] 04-07-2024 10:44-0400 Body weight 88.91 kg Ella Valdovinos PA-C Work Phone: [facility] 04-07-2024 10:44-0400 Heart rate 75 /min Ella Valdovinos PA-C Work Phone: [facility] 04-07-2024 10:44-0400 Respiratory rate 18 /min Ella Valdovinos PA-C Work Phone: [facility] 04-07-2024 10:44-0400 SaO2% (BldA) [Mass fraction] 94 % Ella Valdovinos PA-C Work Phone: [facility] 03-11-2024 13:04-0400 Body height 170.2 cm Abby Pate MD Work Phone: [facility] 03-11-2024 13:04-0400 Body mass index (BMI) [Ratio] 29.57 kg/m2 Abby Pate MD Work Phone: [facility] 03-11-2024 13:04-0400 Body weight 85.65 kg Abby Pate MD Work Phone: [facility] 03-11-2024 13:04-0400 Diastolic blood pressure 74 mm[Hg] Abby Pate MD Work Phone: [facility] 03-11-2024 13:04-0400 Heart rate 66 /min Abby Pate MD Work Phone: [facility] 03-11-2024 13:04-0400 Systolic blood pressure 113 mm[Hg] Abby Pate MD Work Phone: [facility] 02-19-2024 15:10-0400 Body temperature 97.7 [degF] DR DEAN CALDWELL MD [facility] 02-19-2024 15:10-0400 Diastolic Blood Pressure Non-Invasive 71 mm[Hg] DR DEAN CALDWELL MD [facility] 02-19-2024 15:10-0400 Heart rate 68 /min DR DEAN CALDWELL MD [facility] 02-19-2024 15:10-0400 Respiratory rate 18 /min DR DEAN CALDWELL MD [facility] 02-19-2024 15:10-0400 Systolic Blood Pressure Non-Invasive 122 mm[Hg] DR DEAN CALDWELL MD [facility] 02-19-2024 13:16-0400 Respiratory rate 18 /min DR DEAN CALDWELL MD [facility] 02-19-2024 11:33-0400 Body temperature 97.52 [degF] DR DEAN CALDWELL MD [facility] 02-19-2024 11:33-0400 Diastolic Blood Pressure Non-Invasive 65 mm[Hg] DR DEAN CALDWELL MD [facility] 02-19-2024 11:33-0400 Heart rate 68 /min DR DEAN CALDWELL MD [facility] 02-19-2024 11:33-0400 Respiratory rate 18 /min DR DEAN CALDWELL MD [facility] 02-19-2024 11:33-0400 Systolic Blood Pressure Non-Invasive 126 mm[Hg] DR DEAN CALDWELL MD [facility] 02-19-2024 08:15-0400 Heart rate 84 /min DR DEAN CALDWELL MD [facility] 02-19-2024 06:27-0400 Body temperature 97.34 [degF] DR DEAN CALDWELL MD [facility] 02-19-2024 06:27-0400 Diastolic Blood Pressure Non-Invasive 58 mm[Hg] DR DEAN CALDWELL MD [facility] 02-19-2024 06:27-0400 Heart rate 67 /min DR DEAN CALDWELL MD [facility] 02-19-2024 06:27-0400 Systolic Blood Pressure Non-Invasive 103 mm[Hg] DR DEAN CALDWELL MD [facility] 02-18-2024 20:42-0400 Heart rate 82 /min DR DEAN CALDWELL MD [facility] 02-18-2024 17:02-0400 Body height 170.[address] DEAN CALDWELL MD [facility] 02-18-2024 17:02-0400 Body weight [address] DEAN CALDWELL MD [facility] 02-18-2024 17:02-0400 Body weight 30.38 kg/m2 DR DEAN CALDWELL MD [facility] 02-18-2024 15:17-0400 Body temperature 97.52 [degF] DR DEAN CALDWELL MD [facility] 02-18-2024 15:10-0400 Respiratory Rate - Anes 0 br/min DR DEAN CALDWELL MD [facility] 02-18-2024 15:05-0400 Respiratory Rate - Anes 0 br/min DR DEAN CALDWELL MD [facility] 02-18-2024 15:00-0400 Respiratory Rate - Anes 15 br/min DR DEAN CALDWELL MD [facility] 02-18-2024 11:01-0400 Body height 170.[address] DEAN CALDWELL MD [facility] 02-18-2024 11:01-0400 Body temperature 97.88 [degF] DR DEAN CALDWELL MD [facility] 02-18-2024 11:01-0400 Body weight [address] DEAN CALDWELL MD [facility] 02-18-2024 11:01-0400 Heart rate 60 /min DR DEAN CALDWELL MD [facility] 02-10-2024 09:39-0400 Body height 170.2 cm Ella Valdovinos PA-C Work Phone: [facility] 02-10-2024 09:39-0400 Body mass index (BMI) [Ratio] 31.01 kg/m2 Ella Valdovinos PA-C Work Phone: [facility] 02-10-2024 09:39-0400 Body weight 89.81 kg Ella Valdovinos PA-C Work Phone: [facility] 02-10-2024 09:39-0400 Diastolic blood pressure 72 mm[Hg] Ella Valdovinos PA-C Work Phone: [facility] 02-10-2024 09:39-0400 Heart rate 60 /min Ella Valdovinos PA-C Work Phone: [facility] 02-10-2024 09:39-0400 Respiratory rate 16 /min Ella Valdovinos PA-C Work Phone: [facility] 02-10-2024 09:39-0400 Systolic blood pressure 118 mm[Hg] Lela Valdovinos PA-C Work Phone: [facility] 01-27-2024 11:15-[address] DEAN CALDWELL MD [facility] 01-27-2024 11:15-[address] DEAN Calero [facility] 01-27-2024 11:15-0400 Body height 170.[address] DEAN CALDWELL MD [facility] 01-27-2024 11:15-0400 Body weight 88.[address] DEAN CALDWELL MD [facility] 01-27-2024 11:15-0400 Body weight 30.59 kg/m2 DR DEAN CALDWELL MD [facility] 01-27-2024 11:15-0400 Diastolic Blood Pressure Non-Invasive 87 mm[Hg] DR DEAN CALDWELL MD [facility] 01-27-2024 11:15-0400 Heart rate 60 /min DR DEAN CALDWELL MD [facility] 01-27-2024 11:15-0400 Respiratory rate 18 /min DR DEAN CALDWELL MD [facility] 01-27-2024 11:15-0400 Systolic Blood Pressure Non-Invasive 151 mm[Hg] DR DEAN CALDWELL MD [facility] 12-31-2023 10:59-0400 Body mass index (BMI) [Ratio] 31.32 kg/m2 Oniel Francis MD Work Phone: [facility] 12-31-2023 10:59-0400 Body temperature 97.5 [degF] Oniel Francis MD Work Phone: [facility] 12-31-2023 10:59-0400 Body weight 90.72 kg Oniel Francis MD Work Phone: [facility] 12-31-2023 10:59-0400 Diastolic blood pressure 82 mm[Hg] Oniel Francis MD Work Phone: [facility] 12-31-2023 10:59-0400 Heart rate 58 /min Oniel Francis MD Work Phone: [facility] 12-31-2023 10:59-0400 Respiratory rate 16 /min Oniel Francis MD Work Phone: [facility] 12-31-2023 10:59-0400 SaO2% (BldA) [Mass fraction] 95 % Oniel Francis MD Work Phone: [facility] 12-31-2023 10:59-0400 Systolic blood pressure 120 mm[Hg] Oniel Francis MD Work Phone: [facility] 12-23-2023 15:40-0400 Body height 170.2 cm Marj Mackey MD Work Phone: [facility] 12-23-2023 15:40-0400 Body mass index (BMI) [Ratio] 30.79 kg/m2 Marj Mackey MD Work Phone: [facility] 12-23-2023 15:40-0400 Body weight 89.18 kg Marj Mackey MD Work Phone: [facility] 12-23-2023 15:40-0400 Diastolic blood pressure 72 mm[Hg] Marj Mackey MD Work Phone: [facility] 12-23-2023 15:40-0400 Heart rate 57 /min Marj Mackey MD Work Phone: [facility] 12-23-2023 15:40-0400 SaO2% (BldA) [Mass fraction] 96 % Marj Mackey MD Work Phone: [facility] 12-23-2023 15:40-0400 Systolic blood pressure 119 mm[Hg] Marj Mackey MD Work Phone: [facility] 12-14-2023 11:17-0400 Body mass index (BMI) [Ratio] 31.46 kg/m2 Eva Barlow APRN.WAREHOUSE SHIPPING ASSOCIATE Work Phone: [facility] 12-14-2023 11:17-0400 Body temperature 96.21 [degF] Eva Barlow APRN.WAREHOUSE SHIPPING ASSOCIATE Work Phone: [facility] 12-14-2023 11:17-0400 Body weight 91.1 kg Eva Barlow ANGIE.WAREHOUSE SHIPPING ASSOCIATE Work Phone: [facility] 12-14-2023 11:17-0400 Diastolic blood pressure 62 mm[Hg] Eva Jorge MASONN.WAREHOUSE SHIPPING ASSOCIATE Work Phone: [facility] 12-14-2023 11:17-0400 Heart rate 62 /min Evadominic Barlow APRN.WAREHOUSE SHIPPING ASSOCIATE Work Phone: [facility] 12-14-2023 11:17-0400 Respiratory rate 16 /min Eva Barlow ANGIE.WAREHOUSE SHIPPING ASSOCIATE Work Phone: [facility] 12-14-2023 11:17-0400 SaO2% (BldA) [Mass fraction] 98 % Eva Jorge ADAMS.WAREHOUSE SHIPPING ASSOCIATE Work Phone: [facility] 12-14-2023 11:17-0400 Systolic blood pressure 120 mm[Hg] Eva Jorge ADAMS.WAREHOUSE SHIPPING ASSOCIATE Work Phone: [facility] 09-11-2023 13:31-0500 Body height 170.2 cm Abby Pate MD Work Phone: [facility] 09-11-2023 13:31-0500 Body weight 92 kg Abby Pate MD Work Phone: [facility] 09-11-2023 13:31-0500 Diastolic blood pressure 78 mm[Hg] Abby Pate MD Work Phone: [facility] 09-11-2023 13:31-0500 Heart rate 66 /min Abby Pate MD Work Phone: [facility] 09-11-2023 13:31-0500 SaO2% (BldA) [Mass fraction] 93 % Abby Pate MD Work Phone: [facility] 09-11-2023 13:31-0500 Systolic blood pressure 139 mm[Hg] Abby Pate MD Work Phone: [facility] 06-24-2023 15:52-0500 Body weight 89.81 kg Marj Mackey MD Work Phone: [facility] 06-24-2023 15:52-0500 Diastolic blood pressure 67 mm[Hg] Marj Mackey MD Work Phone: [facility] 06-24-2023 15:52-0500 Heart rate 66 /min Marj Mackey MD Work Phone: [facility] 06-24-2023 15:52-0500 Respiratory rate 16 /min Marj Makcey MD Work Phone: [facility] 06-24-2023 15:52-0500 SaO2% (BldA) [Mass fraction] 95 % Marj Mackey MD Work Phone: [facility] 06-24-2023 15:52-0500 Systolic blood pressure 117 mm[Hg] Marj Mackey MD Work Phone: [facility] 03-20-2023 11:33-0400 Body height 168.9 cm Abby Pate MD Work Phone: [facility] 03-20-2023 11:33-0400 Body weight 85.28 kg Abby Pate MD Work Phone: [facility] 03-20-2023 11:33-0400 Diastolic blood pressure 87 mm[Hg] Abby Pate MD Work Phone: [facility] 03-20-2023 11:33-0400 Heart rate 63 /min Abby Pate MD Work Phone: [facility] 03-20-2023 11:33-0400 SaO2% (BldA) [Mass fraction] 96 % Abby Pate MD Work Phone: [facility] 03-20-2023 11:33-0400 Systolic blood pressure 135 mm[Hg] Abby Pate MD Work Phone: [facility] 10-29-2022 11:18-0400 Diastolic blood pressure 78 mm[Hg] Marj Mackey MD Work Phone: [facility] 10-29-2022 11:18-0400 Systolic blood pressure 128 mm[Hg] Marj Mackey MD Work Phone: [facility] 10-29-2022 10:47-0400 Body height 170.2 cm Marj Mackey MD Work Phone: [facility] 10-29-2022 10:47-0400 Body weight 92.08 kg Marj Mackey MD Work Phone: [facility] 10-29-2022 10:47-0400 Heart rate 60 /min Marj Mackey MD Work Phone: [facility] 06-22-2022 08:48-0500 Body temperature 97.2 [degF] Oniel Francis MD Work Phone: [facility] 06-22-2022 08:48-0500 Body weight 88.91 kg Oniel Francis MD Work Phone: [facility] 06-22-2022 08:48-0500 Diastolic blood pressure 82 mm[Hg] Oniel Francis MD Work Phone: [facility] 06-22-2022 08:48-0500 Heart rate 60 /min Oniel Francis MD Work Phone: [facility] 06-22-2022 08:48-0500 Respiratory rate 18 /min Oniel Francis MD Work Phone: [facility] 06-22-2022 08:48-0500 Systolic blood pressure 136 mm[Hg] Oniel Francis MD Work Phone: [facility] 04-30-2022 09:59-0400 Body height 170.2 cm Marj Mackey MD Work Phone: [facility] 04-30-2022 09:59-0400 Body weight 88.45 kg Marj Mackey MD [facility] [facility] 04-30-2022 09:59-0400 Diastolic blood pressure 80 mm[Hg] Marj Mackey MD Work Phone: [facility] 04-30-2022 09:59-0400 Heart rate 56 /min Marj Mackey MD Work Phone: [facility] 04-30-2022 09:59-0400 SaO2% (BldA) [Mass fraction] 94 % Marj Mackey MD Work Phone: [facility] 04-30-2022 09:59-0400 Systolic blood pressure 120 mm[Hg] Marj Mackey MD Work Phone: [facility] 04-23-2022 17:38-0400 Body temperature 97.9 [degF] Naun Monterroso MD Work Phone: [facility] 04-23-2022 17:38-0400 Body weight 88.45 kg Naun Monterroso MD Work Phone: [facility] 04-23-2022 17:38-0400 Diastolic blood pressure 78 mm[Hg] Naun Monterroso MD Work Phone: [facility] 04-23-2022 17:38-0400 Heart rate 57 /min Naun Monterroso MD Work Phone: [facility] 04-23-2022 17:38-0400 Respiratory rate 18 /min Naun Monterroso MD Work Phone: [facility] 04-23-2022 17:38-0400 SaO2% (BldA) [Mass fraction] 94 % Naun Monterroso MD Work Phone: [facility] 04-23-2022 17:38-0400 Systolic blood pressure 116 mm[Hg] Naun Monterroso MD Work Phone: [facility] 02-19-2022 09:59-0400 Body temperature 96.8 [degF] Charan Roman APRN.WAREHOUSE SHIPPING ASSOCIATE Work Phone: [facility] 02-19-2022 09:59-0400 Body weight 86.91 kg Charan Roman APRN.WAREHOUSE SHIPPING ASSOCIATE Work Phone: [facility] 02-19-2022 09:59-0400 Diastolic blood pressure 82 mm[Hg] Charan Roman APRN.WAREHOUSE SHIPPING ASSOCIATE Work Phone: [facility] 02-19-2022 09:59-0400 Heart rate 56 /min Charan Roman LOADING MACHINE OPERATOR.WAREHOUSE SHIPPING ASSOCIATE Work Phone: [facility] 02-19-2022 09:59-0400 Respiratory rate 20 /min Charan Roman LOADING MACHINE OPERATOR.WAREHOUSE SHIPPING ASSOCIATE Work Phone: [facility] 02-19-2022 09:59-0400 SaO2% (BldA) [Mass fraction] 94 % Charan Roman LOADING MACHINE OPERATOR.WAREHOUSE SHIPPING ASSOCIATE Work Phone: [facility] 02-19-2022 09:59-0400 Systolic blood pressure 136 mm[Hg] Charan Roman LOADING MACHINE OPERATOR.WAREHOUSE SHIPPING ASSOCIATE Work Phone: [facility] 12-15-2021 15:27-0400 Body height 168 cm Abby Pate MD Work Phone: [facility] 12-15-2021 15:27-0400 Body weight 87.09 kg Abby Pate MD Work Phone: [facility] 12-15-2021 15:27-0400 Diastolic blood pressure 73 mm[Hg] Abby Pate MD Work Phone: [facility] 12-15-2021 15:27-0400 Heart rate 61 /min Abby Pate MD Work Phone: [facility] 12-15-2021 15:27-0400 Systolic blood pressure 128 mm[Hg] Abby Pate MD Work Phone: 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 Oniel Francis MD Work Phone: -Emergency Department Work Phone: Start: 04-10-2025 End: 04-10-2025 Emergency department patient visit Dr. Oniel Francis MD Work Phone: -Emergency Department Work Phone: Start: 04-08-2025 End: 04-08-2025 Chart abstracting Oniel Francis MD Work Phone: [facility] [place] Comment on above: Abstract ([facility] discha rge summary, Dr. Jara) Start: 04-07-2025 End: 04-08-2025 ambulatory Oniel Francis Facility:[facility] Start: 04-07-2025 End: 04-08-2025 Evaluation and management of inpatient Dr. Andi Jara MD -Medical Surgical 3 Work Phone: Start: 04-07-2025 End: 04-08-[address] Oniel Francis MD Work Phone: -Medical Surgical 3 Start: 03-24-2025 End: 03-24-2025 ambulatory [facility] Facility:[facility] Start: 03-24-2025 End: 03-24-2025 Chart abstracting Oniel Francis MD Work Phone: [facility] [place] Comment on above: Abstract (Urology Pr ocedure report) Start: 03-24-2025 End: 03-24-2025 Telephone encounter Oniel Francis MD Work Phone: [facility] [place] Comment on above: Faxed Information Start: 02-26-2025 End: 02-26-2025 Office outpatient new 30 minutes Leti Rodriguez PA-C Work Phone: [facility] [place] Comment on above: Acute URI (Primary D x) Start: 02-26-2025 End: 03-02-2025 Refill Oniel Francis MD Work Phone: [facility] [place] Comment on above: Refill Request Patient Question Start: 02-24-2025 End: 02-24-2025 Chart abstracting Oniel Francis MD Work Phone: [facility] [place] Comment on above: Outside Rvxt-Mvs-FNP Ordered; Outside Urology Start: 02-23-2025 End: 02-23-[address] Oniel Francis MD Work Phone: -Laboratory Start: 02-23-2025 End: 02-23-[address] Andi Jara MD -Laboratory Work Phone: Start: 02-23-2025 End: 02-23-2025 ambulatory Oniel Francis Facility:[facility] Start: 02-19-2025 End: 02-25-2025 Telephone encounter Oniel Francis MD Work Phone: [facility] Comment on above: Results; Appointment Start: 02-13-2025 End: 02-15-2025 Refill Abby Pate MD Work Phone: Neurology Comment on above: Refill Request Start: 02-10-2025 End: 02-11-2025 Follow-up encounter Oniel Francis MD Work Phone: [facility] Comment on above: Results Start: 02-08-2025 End: 02-08-2025 ambulatory ELLA VALDOVINOS Facility:[facility] Start: 02-08-2025 End: 02-08-2025 Patient encounter procedure Oniel Francis MD Work Phone: [facility] Comment on above: Medicare annual well ness visit, subsequent (Primary Dx); Mixed hyperlipidemia; Essential hypertension; Acquired hypothyroidism; Elevated blood sugar; Carotid stenosis, asymptomatic, bilateral; 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 Pierre BARTH -[facility] Work Phone: Start: 01-27-2025 ambulatory Leti Hernandez y:[facility] Start: 01-27-[address] Leti jauregui DO -Cardiovascular Services Work Phone: Start: 01-19-2025 ambulatory Aramis Larson Facility:[facility] Start: 01-19-2025 Non-patient / Non-visit Dr. Pierre BARTH -[facility] Start: 01-19-2025 End: 01-19-2025 Evaluation and management of inpatient Dr. Mik Kilgore MD -Progressive Care Unit Work Phone: Start: 01-19-2025 End: 01-19-[address] Oniel Francis MD Work Phone: [facility] Work Phone: Start: 01-19-2025 End: 01-19-2025 ambulatory Oniel Francis Facility:[facility] Start: 01-19-2025 Non-patient / Non-visit Dr. Mik jacob MD -[facility] Work Phone: Start: 01-18-2025 End: 01-18-[address] Aramis Larson MD -[facility] Start: 01-18-2025 End: 01-18-[address] Oniel Francis MD Work Phone: [facility] Work Phone: Start: 12-02-2024 End: 12-02-2024 Chart abstracting Prudencio Barlow MA [facility] [place] Comment on above: Consult (Outside [facility] Management - Dr. Bowden ) Start: 11-02-2024 End: 11-02-2024 Refill Oniel Francis MD Work Phone: [facility] [place] Comment on above: Refill Request Start: 09-18-2024 End: 09-18-2024 Follow-up encounter Marj Mackey MD Work Phone: [facility] Cardiology [place] Start: 09-18-2024 End: 09-23-2024 Telephone encounter Abby Pate MD Work Phone: Neurology Start: 09-17-2024 End: 09-17-2024 ambulatory MARJ MACKEY Facility:[facility] Start: 09-11-2024 End: 09-11-2024 ambulatory ABBY PATE Facility:[facility] Start: 09-11-2024 End: 09-11-2024 Patient encounter procedure Abby Pate MD Work Phone: Neurology Comment on above: 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); Insomnia, unspecified type; Chronic idiopathic constipation; RBD (REM behavioral disorder) Start: 09-01-2024 End: 09-01-2024 ambulatory MARJ MACKEY Facility:[facility] Start: 08-31-2024 End: 08-31-2024 ambulatory MARJ MACKEY Facility:[facility] Start: 08-31-2024 End: 08-31-2024 Patient encounter procedure Marj Mackey MD Work Phone: Cardiology Comment on above: 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 (Primary Dx); Aortic valve replaced; Mixed hyperlipidemia; Essential hypertension; Carotid stenosis, asymptomatic, bilateral; Hyperlipidemia, unspecified hyperlipidemia type; SAUCEDA (dyspnea on exertion) Start: 08-01-2024 End: 08-03-2024 Refill Cristal Giron APRN.WAREHOUSE SHIPPING ASSOCIATE Work Phone: [facility] [place] Comment on above: Med Change Request Start: 07-10-2024 End: 07-13-2024 Refill Oniel Francis MD Work Phone: [facility] [place] Comment on above: Refill Request Start: 06-25-2024 End: 06-25-2024 Refill Cristal Giron APRN.WAREHOUSE SHIPPING ASSOCIATE Work Phone: [facility] [place] Comment on above: Med Change Request Start: 05-30-2024 End: 06-01-2024 Refill Cristal Giron APRN.WAREHOUSE SHIPPING ASSOCIATE Work Phone: [facility] Comment on above: Med Change Request Start: 05-08-2024 End: 05-11-2024 Telephone encounter Cristal Giron APRN.WAREHOUSE SHIPPING ASSOCIATE Work Phone: [facility] Comment on above: problem scheduling u ltrasound Results Start: 05-08-2024 End: 05-08-2024 ambulatory Oniel Francis Facility:[facility] Start: 05-07-2024 End: 05-07-2024 Patient encounter procedure Cristal Giron APRN.WAREHOUSE SHIPPING ASSOCIATE Work Phone: [facility] Comment on above: Bilateral leg pain ( Primary Dx); Bilateral lower extremity edema; Benign localized prostatic hyperplasia with lower urinary tract symptoms (LUTS) Start: 05-07-2024 End: 05-08-2024 Telephone encounter Cristal Giron APRN.WAREHOUSE SHIPPING ASSOCIATE Work Phone: [facility] Comment on above: US DVT order Start: 04-07-2024 End: 04-07-2024 Telephone encounter Ella Valdovinos PA-C Work Phone: [facility] Comment on above: Orders Start: 04-07-2024 End: 04-07-2024 Patient encounter procedure Ella Valdovinos PA-C Work Phone: [facility] Comment on above: Nocturia associated with benign prostatic hyperplasia (Primary Dx) Start: 03-11-2024 End: 03-11-2024 Patient encounter procedure Abby Pate MD Work Phone: Neurology Comment on above: 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); Chronic idiopathic constipation; Insomnia, unspecified type Start: 02-24-2024 Telephone encounter Oniel Francis MD Work Phone: [facility] Comment on above: Medication Question Start: 02-18-2024 End: 02-19-[address] DEAN CALDWELL MD Facility:[facility] Start: 02-18-2024 End: 02-19-[address] DEAN CALDWELL MD [facility] Start: 02-12-2024 Telephone encounter Oniel Francis MD Work Phone: [facility] [place] Comment on above: Requsting Records Start: 02-10-2024 End: 02-10-2024 Patient encounter procedure Ella Valdovinos PA-C Work Phone: [facility] [place] Comment on above: Medicare annual well ness visit, subsequent (Primary Dx); Advance directive discussed with patient; Arthritis of knee; Acquired hypothyroidism; Elevated blood sugar; B12 deficiency; Mixed hyperlipidemia; Essential hypertension; 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; Aortic valve replaced; Parkinson's disease with dyskinesia and fluctuating manifestations (HCC); BPH associated with nocturia Start: 02-05-2024 ambulatory [facility] [place] Start: 02-05-2024 Patient encounter procedure [facility] [place] Comment on above: Population Health Na vigation Outreach ([facility] RUSLAN 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 - AW[facility], Care gaps, - [place] [facility]) Start: 02-03-2024 Telephone encounter Ella neff PA-C Work Phone: [facility] [place] Comment on above: Results Start: 01-31-2024 End: 01-31-2024 Subsequent hospital visit by physician [facility] [place] Work Phone: Radiology Comment on above: URI, acute [J06.9] Start: 01-27-2024 End: 01-27-[address] DEAN CALDWELL MD Facility:[facility] Start: 01-27-2024 End: 01-27-[address] DEAN CALDWELL MD [facility] Start: 01-27-2024 End: 01-27-[address] DEAN CALDWELL MD [facility] Start: 01-27-2024 End: 01-27-[address] DEAN CALDWELL MD Facility:[facility] Start: 12-31-2023 End: 12-31-2023 Patient encounter procedure Oniel Francis MD Work Phone: [facility] Comment on above: URI, acute (Primary Dx); X-ray of lung, abnormal; Mixed hyperlipidemia; 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; Elevated blood sugar; Essential hypertension; Acquired hypothyroidism; Vitamin D deficiency; B12 deficiency Start: 12-23-2023 End: 12-23-2023 Patient encounter procedure Marj Mackey MD Work Phone: Cardiology Comment on above: 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 Start: 12-16-2023 Telephone encounter Oniel Francis MD Work Phone: [facility] Comment on above: Appointment Start: 12-14-2023 End: 12-14-2023 Subsequent hospital visit by physician [facility] [place] Work Phone: Radiology Comment on above: Acute cough [R05.1] Start: 12-14-2023 End: 12-14-2023 Patient encounter procedure Eva Barlow APRN.CNP Work Phone: [facility] Comment on above: Acute cough (Primary Dx) Start: 11-12-2023 ambulatory Lelia Soni [facility] [place] Comment on above: Population Health Na vigation Outreach ([place] [facility] ) Start: 09-11-2023 End: 09-11-2023 Patient encounter procedure Abby Pate MD Work Phone: Neurology Comment on above: 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); Chronic idiopathic constipation; Insomnia, unspecified type Start: 06-24-2023 End: 06-24-2023 Patient encounter procedure Marj Mackey MD Work Phone: Cardiology Comment on above: 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 (Primary Dx); Aortic valve replaced; Essential hypertension; Hyperlipidemia, unspecified hyperlipidemia type; Mixed hyperlipidemia; Carotid stenosis, asymptomatic, bilateral; SAUCEDA (dyspnea on exertion) Start: 03-20-2023 End: 03-20-2023 Patient encounter procedure Abby Pate MD Work Phone: Neurology Comment on above: Parkinson disease (H CC) (Primary Dx); Chronic idiopathic constipation; RBD (REM behavioral disorder) Start: 03-19-2023 Refill Abby Pate MD Work Phone: [facility] Neurology Comment on above: Refill Request (Carb idopa-Levodopa) Start: 12-25-2022 Patient encounter procedure Abby Pate MD Work Phone: 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 (Primary Dx); Aortic valve replaced; Essential hypertension; Mixed hyperlipidemia; Carotid stenosis, asymptomatic, bilateral; Hyperlipidemia, unspecified hyperlipidemia type Start: 07-13-2022 Refill Abby Pate MD Work Phone: [facility] Neurology Comment on above: Refill Request Start: 06-25-2022 Telephone encounter Oniel Francis MD Work Phone: [facility] [place] Comment on above: Results Start: 06-22-2022 End: 06-22-2022 Patient encounter procedure Oniel Francis MD Work Phone: [facility] Comment on above: Essential hypertensi on (Primary Dx); Mixed hyperlipidemia; Elevated blood sugar; 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; Carotid stenosis, asymptomatic, bilateral; Acquired hypothyroidism; Vitamin D deficiency; Obesity, Class I, BMI 30-34.9; B12 deficiency; Viral URI with cough; Medication management Start: 06-18-2022 End: 06-18-2022 [facility] Abby Pate MD Work Phone: Neurology Comment on above: Parkinson disease (H CC) (Primary Dx); Chronic idiopathic constipation; RBD (REM behavioral disorder) Start: 05-23-2022 End: 05-23-2022 ambulatory Mi Nurse Work Phone: [facility] [place] Start: 05-11-2022 Refill Ella Russo on PA-C Work Phone: [facility] [place] Comment on above: Refill Request Start: 04-30-2022 End: 04-30-2022 Patient encounter procedure Marj Mackey MD Work Phone: Cardiology Comment on above: 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 (Primary Dx); Aortic valve replaced; Essential hypertension; Mixed hyperlipidemia; Carotid stenosis, asymptomatic, bilateral; Hyperlipidemia, unspecified hyperlipidemia type Start: 04-23-2022 End: 04-23-2022 Orders Only Marj Mackey MD Work Phone: Cardiology Comment on above: Aortic valve replace d (Primary Dx) Olecranon bursitis o f right elbow (Primary Dx) Start: 02-19-2022 End: 02-19-2022 Patient encounter procedure Charan Roman APRN.CNP Work Phone: [facility] Comment on above: Rash (Primary Dx) Start: 12-15-2021 End: 12-15-2021 Patient encounter procedure Abby Pate MD Work Phone: Neurology Comment on above: Parkinson disease (H CC) (Primary Dx); Chronic idiopathic constipation; RBD (REM behavioral disorder) Start: 12-12-2021 Patient encounter procedure Abby Pate MD Work Phone: [facility] Work Phone: Start: 12-01-2021 ambulatory Oniel smith MD Work Phone: [facility] [place] Start: 12-01-2021 Patient encounter procedure Oniel Francis MD Work Phone: [facility] [place] Comment on above: office visit Start: 11-07-2021 Refill Ella Russo on PA-C Work Phone: [facility] [place] Comment on above: Refill Request Start: 12-07-2020 Patient encounter procedure Ellajanet Valdovinos PA-C Work Phone: [facility] Work Phone: Start: 08-26-2018 End: 08-26-2018 Evaluation and management of inpatient ARLENEAXEL MARINO N Facility:[facility] Start: 01-17-2018 Patient encounter procedure KIZZY BAILEY Facility:[facility] Start: 12-31-2017 Patient encounter procedure KIZZY BAILEY Facility:[facility] Procedures Date Procedure Procedure Detail Performing Clinician Start: 04-10-[address] Oniel Francis MD Work Phone: Start: 04-10-2025 Urnls dip stick/tabl et reagent auto microscopy Dr. Oniel Francis MD Work Phone: Start: 04-10-2025 Urnls dip stick/tabl et reagent [...] performed to confirm baseline values. Start: 02-08-2025 [employer] COVI D-19 VACCINE AGE 12+ YR (COMIRNATY) [...] exam ches t 2 views Eva Barlow APRN.WAREHOUSE SHIPPING ASSOCIATE Work Phone: Start: 05-23-2022 INFLUENZA SEASONAL QUADRIVALENT [...] Start: 02-09-2028 Diabetes Screening Diabetes Screenin g [facility] Start: 12-04-[address] [facility] Start: 09-01-2027 Diabetes Screening Diabetes Screenin g [facility] Start: 05-07-2027 Diabetes Screening Diabetes Screenin g [facility] Start: 01-30-2027 Diabetes Screening Diabetes Screenin g [facility] Start: 02-09-2026 End: 02-09-2026 Patient encounter procedure 02/09/2026 8:00 AM EDT Office Visit [facility] [place] [address] [place], [place] [id number] Oniel Francis MD [address] [place] [address] [phone] Medicare Wellness [facility] [place] Comment on above: Medicare Wellness Start: 02-08-2026 Anxiety Screening Anxiety Screening [facility] Start: 02-08-2026 Depression Screening Depression Scre ening [facility] Start: 02-08-2026 Hepatitis B surface antibody level LDL Cholesterol [facility] Start: 01-28-2026 End: 04-29-2026 25-hydroxyvitamin D3 [Mass/volume] in Serum or Plasma VITAMIN D 25 HYDROXY Lab Routine Vitamin D deficiency Expected: 01/28/2026, Expires: 04/29/2026 [facility] Comment on above: Expected: 01/28/2026 , Expires: 04/29/2026 Start: 01-28-2026 End: 04-29-2026 CBC W Auto Differential panel - Blood COMPLETE BLOOD COUNT AND DIFFERENTIAL Lab Routine Acquired hypothyroidism B12 deficiency Medication management Expected: 01/28/2026, Expires: 04/29/2026 [facility] Comment on above: Expected: 01/28/2026 , Expires: 04/29/2026 Start: 01-28-2026 End: 04-29-2026 Cobalamin (Vitamin B12) [Mass/volume] in Serum or Plasma VITAMIN B12 Lab Routine B12 deficiency Expected: 01/28/2026, Expires: 04/29/2026 [facility] Work Phone: Comment on above: Expected: 01/28/2026 , Expires: 04/29/2026 Start: 01-28-2026 End: 04-29-2026 Comprehensive metabolic 2000 panel - Serum or Plasma COMPREHENSIVE METABOLIC PANEL Lab Routine Mixed hyperlipidemia Essential hypertension Elevated blood sugar Expected: 01/28/2026, Expires: 04/29/2026 [facility] Comment on above: Expected: 01/28/2026 , Expires: 04/29/2026 Start: 01-28-2026 End: 04-29-2026 Hemoglobin A1c in Blood HEMOGLOBIN A1C Lab Routine Elevated blood sugar Expected: 01/28/2026, Expires: 04/29/2026 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 Comment on above: Expected: 01/28/2026 , Expires: 04/29/2026 Start: 01-28-2026 End: 04-29-2026 Thyrotropin [Units/volume] in Serum or Plasma THYROID STIMULATING HORMONE Lab Routine Acquired hypothyroidism Expected: 01/28/2026, Expires: 04/29/2026 [facility] Comment on above: Expected: 01/28/2026 , Expires: 04/29/2026 Start: 01-28-2026 End: 04-29-2026 Urinalysis complete panel - Urine URINALYSIS, WITH MICROSCOPIC Lab Routine Mixed hyperlipidemia Essential hypertension Expected: 01/28/2026, Expires: 04/29/2026 [facility] Comment on above: Expected: 01/28/2026 , Expires: 04/29/2026 Start: 12-25-2025 DIABETES SCREEN DIABETES SCREEN [facility] Start: 12-25-2025 Diabetes Screening Diabetes Screenin g [facility] Start: 11-22-2025 End: 11-22-2025 Patient encounter procedure 11/22/2025 3:00 PM EDT Office Visit Cardiology [address], [place] [id number] Marj Mackey MD [address] [id number] 6 month follow up Cardiology Comment on above: 6 month follow up Start: 10-11-2025 End: 10-11-2025 Patient encounter procedure 10/11/2025 8:00 AM EDT Office Visit Neurology [address] [place], [place] [id number] Talat Escobedo Jr., MD [address] [place], [place] [id number] Sleeping is minimal or not all. I have tried [id number] meds, new mattresses, etc. per web request Neurology Comment on above: Sleeping is minimal or not all. I have tried [id number] meds, new mattresses, etc. per web request Start: 10-01-2025 End: 10-01-2025 Patient encounter procedure 10/01/2025 4:30 PM EST Office Visit Neurology [address] [address] Abby Pate MD [address] [place] [address] Return in about 6 months (around 09/24/2025). Neurology Comment on above: Return in about 6 mo nths (around 09/24/2025). Start: 09-01-2025 Hepatitis B surface antibody level LDL Cholesterol [facility] Start: 08-11-2025 Covid-19 Vaccine () Covid-19 Vaccine () [facility] Start: 06-22-2025 DIABETES SCREEN DIABETES SCREEN [facility] Start: 06-11-2025 End: 09-10-2025 Hemoglobin A1c in Blood HEMOGLOBIN A1C Lab Routine Elevated hemoglobin A1c Expected: 06/11/2025, Expires: 09/10/2025 [facility] Work Phone: Comment on above: Expected: 06/11/2025 , Expires: 09/10/2025 Start: 05-24-2025 End: 05-24-2025 Patient encounter procedure 05/24/2025 9:20 AM EDT Office Visit Cardiology [address] [place] [address] Marj Mackey MD [address] [facility] [address] [place], [place] [id number] 6 month follow up Cardiology Comment on above: 6 month follow up Start: 04-12-2025 End: 04-12-2025 Patient encounter procedure Cardiology Comment on above: Recent heart monitor due to possible TIA follow up Start: 04-10-2025 End: 04-10-2025 [facility] Start: 04-10-2025 Bacteria identified in Urine by Culture Urine Culture [facility] Start: 04-10-2025 End: 04-10-2025 [facility] Start: 04-08-2025 Measuring intake and output [facility] Start: 04-08-2025 Removal of urinary catheter [facility] Start: 04-08-[address] [facility] Start: 04-07-2025 Following clinical p athway protocol [facility] Start: 04-07-2025 Application of intermittent pneumatic compression device [facility] Start: 04-07-2025 Measuring intake and output [facility] Start: 04-07-2025 Ambulation therapy management [facility] Start: 04-07-2025 Catheterization of vein [facility] Start: 04-07-2025 Provision of activit y privileges [facility] Start: 04-07-2025 Admission procedure [facility] Start: 04-07-2025 Assessment of risk o f venous thromboembolism [facility] Start: 04-07-2025 Irrigation of urinar y bladder [facility] Start: 04-07-2025 Taking patient vital signs [facility] Start: 04-07-2025 Vital signs measurements [facility] Start: 04-07-2025 End: 04-07-2025 [facility] Start: 04-07-2025 Verification routine [facility] Start: 04-05-2025 Influenza vaccination Influenza Vacc ine (#1) [facility] Start: 03-24-2025 End: 03-24-2025 Patient encounter procedure Neurology Comment on above: six month follow up Start: 03-12-2025 End: 03-12-2025 Patient encounter procedure 03/12/2025 3:30 PM EDT Office Visit Neurology [address] [place] [address] Abby Pate MD [address] [place] [address] six month follow up Neurology Comment on above: six month follow up Start: 03-01-2025 End: 03-01-2025 Patient encounter procedure 03/01/2025 9:20 AM EDT Office Visit Cardiology [address] [place] [address] Marj Mackey MD [address] [facility] [address] [place], [place] [id number] Recent heart monitor due to possible TIA follow up Cardiology Comment on above: Recent heart monitor due to possible TIA follow up Start: 02-09-2025 Anxiety Screening Anxiety Screening [facility] Start: 02-09-2025 Depression Screening Depression Scre ening [facility] Start: 02-08-2025 End: 02-08-2025 Patient encounter procedure [facility] [place] Comment on above: Medicare Wellness Start: 02-02-2025 End: 05-04-2025 25-hydroxyvitamin D3 [Mass/volume] in Serum or Plasma VITAMIN D 25 HYDROXY Lab Routine Vitamin D deficiency Expected: 02/02/2025, Expires: 05/04/2025 [facility] Comment on above: Expected: 02/02/2025 , Expires: 05/04/2025 Start: 02-02-2025 End: 05-04-2025 CBC W Auto Differential panel - Blood COMPLETE BLOOD COUNT AND DIFFERENTIAL Lab Routine Essential hypertension B12 deficiency Elevated blood sugar Expected: 02/02/2025, Expires: 05/04/2025 [facility] Comment on above: Expected: 02/02/2025 , Expires: 05/04/2025 Start: 02-02-2025 End: 05-04-2025 Cobalamin (Vitamin B12) [Mass/volume] in Serum or Plasma VITAMIN B12 Lab Routine B12 deficiency Expected: 02/02/2025, Expires: 05/04/2025 [facility] Comment on above: Expected: 02/02/2025 , Expires: 05/04/2025 Start: 02-02-2025 End: 05-04-2025 Comprehensive metabolic 2000 panel - Serum or Plasma COMPREHENSIVE METABOLIC PANEL Lab Routine Essential hypertension Expected: 02/02/2025, Expires: 05/04/2025 [facility] Comment on above: Expected: 02/02/2025 , Expires: 05/04/2025 Start: 02-02-2025 End: 05-04-2025 Hemoglobin A1c in Blood HEMOGLOBIN A1C Lab Routine Elevated blood sugar Expected: 02/02/2025, Expires: 05/04/2025 [facility] Comment on above: Expected: 02/02/2025 , Expires: 05/04/2025 Start: 02-02-2025 End: 05-04-2025 LIPID PANEL, NONFASTING LIPID PANEL, NONFASTING Lab Routine Mixed hyperlipidemia Expected: 02/02/2025, Expires: 05/04/2025 [facility] Work Phone: Comment on above: Expected: 02/02/2025 , Expires: 05/04/2025 Start: 02-02-2025 End: 05-04-2025 Thyrotropin [Units/volume] in Serum or Plasma THYROID STIMULATING HORMONE Lab Routine Acquired hypothyroidism Expected: 02/02/2025, Expires: 05/04/2025 [facility] Comment on above: Expected: 02/02/2025 , Expires: 05/04/2025 Start: 02-02-2025 End: 05-04-2025 Urinalysis complete panel - Urine URINALYSIS, WITH MICROSCOPIC Lab Routine Essential hypertension Expected: 02/02/2025, Expires: 05/04/2025 [facility] Comment on above: Expected: 02/02/2025 , Expires: 05/04/2025 Start: 01-30-2025 Hepatitis B surface antibody level LDL Cholesterol [facility] Start: 01-19-[address] [facility] Start: 01-19-2025 Telemedicine consult ation with patient [facility] Start: 01-19-2025 Following clinical p athway protocol [facility] Start: 01-19-2025 Ambulation without limitation [facility] Start: 01-19-2025 Aspiration precautions [facility] Start: 01-19-2025 Assessment of risk o f venous thromboembolism [facility] Start: 01-19-[address] [facility] Start: 01-19-2025 Catheterization of vein [facility] Start: 01-19-2025 Consultation [facility] Start: 01-19-2025 Continuous pulse oximetry [facility] Start: 01-19-2025 Elevation of head of bed [facility] Start: 01-19-2025 Exercises [facility] Start: 01-19-2025 Insertion of cathete r into peripheral vein [facility] Start: 01-19-2025 Measuring intake and output [facility] Start: 01-19-2025 Notification of physician [facility] Start: 01-19-2025 Patient referral to dietitian [facility] Start: 01-19-2025 Providing care accor ding to standard [facility] Start: 01-19-2025 Referral to occupati onal therapist [facility] Start: 01-19-2025 Referral to service [facility] Start: 01-19-2025 Speech therapy assessment [facility] Start: 01-19-2025 Tobacco use cessatio n education [facility] Start: 01-19-2025 Vital signs measurements [facility] Start: 01-19-2025 MRI of brain without contrast Brain without Contrast [facility] Start: 01-19-2025 Verification routine [facility] Start: 01-19-2025 Admission procedure [facility] Start: 01-19-2025 Hospital admission, emergency, from emergency room, medical nature [facility] Start: 01-19-2025 End: 01-19-2025 Oxygen therapy [facility] Start: 01-19-2025 End: 01-19-2025 [facility] Start: 01-18-2025 X-ray of lumbar spin e, two or three views Lumbar Spine 2 or 3 Views [facility] Start: 01-18-2025 XR Lumbar spine 2 or 3 Views [facility] Start: 12-12-2024 DIABETES SCREEN DIABETES SCREEN [facility] Start: 09-17-2024 End: 09-17-2024 Patient encounter procedure 09/17/2024 9:40 AM EST Office Visit Cardiology [address] [place] [address] Coronary 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kalispel coronary artery of kalispel heart without... Cardiology Comment on above: Coronary artery dise ase involving kalispel coronary artery of k[place]isp[place] heart without... Start: 09-11-2024 End: 09-11-2024 Patient encounter procedure 09/11/2024 3:00 PM EST Office Visit Neurology [address] [place] [address] Abby Pate MD [address] [place] [address] Six month follow up Neurology Comment on above: Six month follow up Start: 09-01-2024 End: 09-01-2024 ambulatory 09/01/2024 7:45 AM EST Results Only 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 Comment on above: Expected: 08/31/2024 , Expires: 11/30/2024 Start: 08-31-2024 End: 11-30-2024 Lipid 1996 panel - Serum or Plasma LIPID PANEL BASIC Lab Routine Hyperlipidemia, unspecified hyperlipidemia type Expected: 08/31/2024, Expires: 11/30/2024 [facility] Comment on above: Expected: 08/31/2024 , Expires: 11/30/2024 Start: 08-31-2024 End: 11-30-2024 Natriuretic peptide.B prohormone N-Terminal [Mass/volume] in Serum or Plasma NT PRO BNP Lab Routine SAUCEDA (dyspnea on exertion) Expected: 08/31/2024, Expires: 11/30/2024 [facility] Comment on above: Expected: 08/31/2024 , Expires: 11/30/2024 Start: 08-05-2024 Advance Directive Discussion Advance Directive Discussion [facility] Start: 06-09-2024 DIABETES SCREEN DIABETES SCREEN [facility] Start: 05-08-2024 End: 05-08-2024 Patient encounter procedure 05/08/2024 1:00 PM EDT Appointment [facility] [address] [place] [address] Bilateral leg pain [M79.604, M79.605] [facility] Comment on above: Bilateral leg pain [ M79.604, M79.605] Start: 05-07-2024 End: 08-06-2024 CBC W Auto Differential panel - Blood [facility] Work Phone: Comment on above: Expected: 05/07/2024 , Expires: 08/06/2024 Start: 05-07-2024 End: 08-06-2024 Comprehensive metabolic 2000 panel - Serum or Plasma [facility] Comment on above: Expected: 05/07/2024 , Expires: 08/06/2024 Start: 05-07-2024 End: 08-06-2024 Magnesium [Mass/volume] in Serum or Plasma [facility] Comment on above: Expected: 05/07/2024 , Expires: 08/06/2024 Start: 05-07-2024 End: 08-06-2024 Phosphate [Mass/volume] in Serum or Plasma [facility] Comment on above: Expected: 05/07/2024 , Expires: 08/06/2024 Start: 04-07-2024 End: 04-07-2024 Patient encounter procedure 04/07/2024 10:40 AM EDT Office Visit [facility] [address] [place], [place] [address] Ella Valdovinos PA-C [address] [facility] [place] [address] 8 wk follow up, noctural urination/med follow upo [facility] [place] Comment on above: 8 wk follow up, noct ural urination/med follow upo Start: 04-05-2024 Covid-19 Vaccine ( season) Covid-19 Vaccine ( season) [facility] Start: 04-05-2024 Covid-19 Vaccine ( season) Covid-19 Vaccine ( season) [facility] Start: 04-05-2024 Influenza vaccination [facility] Start: 03-11-2024 End: 03-11-2024 Patient encounter procedure 03/11/2024 1:00 PM EDT Office Visit Neurology [address] [place] [phone] Abby Pate MD [address] [place] [address] 6 month follow up Neurology Comment on above: 6 month follow up Start: 02-10-2024 End: 02-10-2024 Patient encounter procedure 02/10/2024 9:40 AM EDT Office Visit [facility] [place] [address] [place] [address] Ella Valdovinos PA-C [address] [place] [address] Medicare Wellness [facility] [place] Comment on above: Medicare Wellness Start: 01-30-2024 End: 01-30-2024 Patient encounter procedure 01/30/2024 9:00 AM EDT Office Visit [facility] [place] [address] [place] [address] Oniel Francis MD [address] [place] [address] Medicare Wellness [facility] Comment on above: Medicare Wellness Start: 01-17-2024 End: 04-17-2024 25-hydroxyvitamin D3 [Mass/volume] in Serum or Plasma VITAMIN D 25 HYDROXY Lab Routine Vitamin D deficiency Expected: 01/17/2024, Expires: 04/17/2024 [facility] Comment on above: Expected: 01/17/2024 , Expires: 04/17/2024 Start: 01-17-2024 End: 04-17-2024 CBC W Auto Differential panel - Blood COMPLETE BLOOD COUNT AND DIFFERENTIAL Lab Routine Acquired hypothyroidism Expected: 01/17/2024, Expires: 04/17/2024 [facility] Comment on above: Expected: 01/17/2024 , Expires: 04/17/2024 Start: 01-17-2024 End: 04-17-2024 Cobalamin (Vitamin B12) [Mass/volume] in Serum or Plasma VITAMIN B12 Lab Routine B12 deficiency Expected: 01/17/2024, Expires: 04/17/2024 [facility] Comment on above: Expected: 01/17/2024 , Expires: 04/17/2024 Start: 01-17-2024 End: 04-17-2024 Comprehensive metabolic 2000 panel - Serum or Plasma COMPREHENSIVE METABOLIC PANEL Lab Routine Mixed hyperlipidemia 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 Elevated blood sugar Essential hypertension Expected: 01/17/2024, Expires: 04/17/2024 [facility] Comment on above: Expected: 01/17/2024 , Expires: 04/17/2024 Start: 01-17-2024 End: 04-17-2024 Hemoglobin A1c in Blood HEMOGLOBIN A1C Lab Routine Elevated blood sugar Expected: 01/17/2024, Expires: 04/17/2024 [facility] Comment on above: Expected: 01/17/2024 , Expires: 04/17/2024 Start: 01-17-2024 End: 04-17-2024 LIPID PANEL, NONFASTING LIPID PANEL, NONFASTING Lab Routine Mixed hyperlipidemia 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 Essential hypertension Expected: 01/17/2024, Expires: 04/17/2024 [facility] Comment on above: Expected: 01/17/2024 , Expires: 04/17/2024 Start: 01-17-2024 End: 04-17-2024 Thyrotropin [Units/volume] in Serum or Plasma THYROID STIMULATING HORMONE Lab Routine Acquired hypothyroidism Expected: 01/17/2024, Expires: 04/17/2024 [facility] Comment on above: Expected: 01/17/2024 , Expires: 04/17/2024 Start: 01-17-2024 End: 04-17-2024 Urinalysis complete panel - Urine URINALYSIS, WITH MICROSCOPIC Lab Routine Mixed hyperlipidemia Essential hypertension Expected: 01/17/2024, Expires: 04/17/2024 [facility] Comment on above: Expected: 01/17/2024 , Expires: 04/17/2024 Start: 01-14-2024 End: 01-29-2025 XR Chest PA and Lateral XR CHEST 2V FRONTAL/LAT Radiology Routine URI, acute X-ray of lung, abnormal Expected: 01/14/2024, Expires: 01/29/2025 [facility] Work Phone: Comment on above: Expected: 01/14/2024 , Expires: 01/29/2025 Start: 12-31-2023 End: 12-31-2023 Patient encounter procedure 12/31/2023 10:40 AM EDT Office Visit [facility] [place] [address] [place], [place] [address] Oniel Francis MD [address] [place], [place] [phone] 12/13 EC Follow Up [facility] [place] Comment on above: 12/13 EC Follow Up Start: 12-26-2023 Hepatitis B surface antibody level LDL CHOLESTEROL [facility] Start: 12-23-2023 End: 12-23-2023 Patient encounter procedure 12/23/2023 3:40 PM EDT Office Visit Cardiology [address] [place] [phone] Marj Mackey MD [address] [facility] [address] [place] [address] 6 month follow up Cardiology Comment on above: 6 month follow up Start: 10-30-2023 BP CONTROLLED (<130/80) BP CONTROLLE D (<130/80) [facility] Start: 09-27-2023 Covid-19 Vaccine () Covid-19 Vaccine () [facility] Start: 08-05-2023 Advance Directive Discussion Advance Directive Discussion [facility] Start: 08-05-2023 Behavioral Health Screening Behavioral Health Screening [facility] Start: 08-05-2023 Depression Assessment Depression Ass essment [facility] Start: 06-22-2023 ANNUAL PCP TEAM BLANKET WINDER OPERATOR SHANDA DISEASE VISIT ANNUAL PCP TEAM CHRONIC DISEASE VISIT [facility] Start: 06-22-2023 BP CONTROLLED (<130/80) BP CONTROLLE D (<130/80) [facility] Start: 06-14-2023 Hepatitis B surface antibody level LDL CHOLESTEROL [facility] Start: 04-23-2023 BP CONTROLLED (<130/80) BP CONTROLLE D (<130/80) [facility] Start: 04-05-2023 Influenza vaccination [facility] Start: 12-15-2022 BP CONTROLLED (<130/80) BP CONTROLLE D (<130/80) [facility] Start: 12-12-2022 Adult depression scr eening assessment DEPRESSION SCREENING [facility] Start: 12-12-2022 ANNUAL PCP TEAM BLANKET WINDER OPERATOR SHANDA DISEASE VISIT ANNUAL PCP TEAM CHRONIC DISEASE VISIT [facility] Start: 12-12-2022 Hepatitis B surface antibody level LDL CHOLESTEROL [facility] Start: 12-07-2022 End: 02-06-2023 25-hydroxyvitamin D3 [Mass/volume] in Serum or Plasma VITAMIN D 25 HYDROXY Lab Routine Vitamin D deficiency Expected: 12/07/2022, Expires: 02/06/2023 [facility] Work Phone: Comment on above: Expected: 12/07/2022 , Expires: 02/06/2023 Start: 12-07-2022 End: 02-06-2023 CBC W Auto Differential panel - Blood CBC + DIFF Lab Routine Acquired hypothyroidism Medication management Expected: 12/07/2022, Expires: 02/06/2023 [facility] Work Phone: Comment on above: Expected: 12/07/2022 , Expires: 02/06/2023 Start: 12-07-2022 End: 02-06-2023 Cobalamin (Vitamin B12) [Mass/volume] in Serum or Plasma VITAMIN B12 BLOOD Lab Routine B12 deficiency Expected: 12/07/2022, Expires: 02/06/2023 [facility] Work Phone: Comment on above: Expected: 12/07/2022 , Expires: 02/06/2023 Start: 12-07-2022 End: 02-06-2023 Comprehensive metabolic 2000 panel - Serum or Plasma COMP METABOLIC PANEL Lab Routine Mixed hyperlipidemia Essential hypertension 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 Expected: 12/07/2022, Expires: 02/06/2023 [facility] Work Phone: Comment on above: Expected: 12/07/2022 , Expires: 02/06/2023 Start: 12-07-2022 End: 02-06-2023 Hemoglobin A1c in Blood HGB A1C Lab Routine Elevated blood sugar Expected: 12/07/2022, Expires: 02/06/2023 [facility] Work Phone: Comment on above: Expected: 12/07/2022 , Expires: 02/06/2023 Start: 12-07-2022 End: 02-06-2023 LIPID PANEL, NONFASTING LIPID PANEL, NONFASTING Lab Routine Mixed hyperlipidemia Essential hypertension 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 Expected: 12/07/2022, Expires: 02/06/2023 [facility] Work Phone: Comment on above: Expected: 12/07/2022 , Expires: 02/06/2023 Start: 12-07-2022 End: 02-06-2023 Thyrotropin [Units/volume] in Serum or Plasma TSH BLD Lab Routine Acquired hypothyroidism Expected: 12/07/2022, Expires: 02/06/2023 [facility] Work Phone: Comment on above: Expected: 12/07/2022 , Expires: 02/06/2023 Start: 12-07-2022 End: 02-06-2023 Urinalysis complete panel - Urine URINALYSIS, WITH MICROSCOPIC Lab Routine Mixed hyperlipidemia Essential hypertension Expected: 12/07/2022, Expires: 02/06/2023 [facility] Work Phone: Comment on above: Expected: 12/07/2022 , Expires: 02/06/2023 Start: 10-06-2022 COVID-19 VACCINE (6 - Moderna series) COVID-19 VACCINE (6 - Moderna series) [facility] Start: 08-14-2022 BP CONTROLLED (<130/80) BP CONTROLLE D (<130/80) [facility] Start: 08-05-2022 ADVANCE DIRECTIVE DISCUSSION ADVANCE DIRECTIVE DISCUSSION [facility] Start: 08-05-2022 DEPRESSION ASSESSMENT DEPRESSION ASS ESSMENT [facility] Start: 06-09-2022 ANNUAL PCP TEAM BLANKET WINDER OPERATOR SHANDA DISEASE VISIT ANNUAL PCP TEAM CHRONIC DISEASE VISIT [facility] Start: 06-09-2022 Hepatitis B surface antibody level LDL CHOLESTEROL [facility] Start: 06-08-2022 Adult depression scr eening assessment DEPRESSION SCREENING [facility] Start: 04-30-2022 End: 06-30-2022 Alanine aminotransferase [Enzymatic activity/volume] in Serum or Plasma ALT/SGPT Lab Routine Mixed hyperlipidemia Expected: 04/30/2022, Expires: 06/30/2022 [facility] Work Phone: Comment on above: Expected: 04/30/2022 , Expires: 06/30/2022 Start: 04-30-2022 End: 06-30-2022 Aspartate aminotransferase [Enzymatic activity/volume] in Serum or Plasma AST/SGOT BLD Lab Routine Mixed hyperlipidemia Expected: 04/30/2022, Expires: 06/30/2022 [facility] Work Phone: Comment on above: Expected: 04/30/2022 , Expires: 06/30/2022 Start: 04-30-2022 End: 06-30-2022 Lipid 1996 panel - Serum or Plasma LIPID PANEL BASIC Lab Routine Mixed hyperlipidemia Expected: 04/30/2022, Expires: 06/30/2022 [facility] Work Phone: Comment on above: Expected: 04/30/2022 , Expires: 06/30/2022 Start: 04-20-2022 COVID-19 VACCINE (5 - Booster for Moderna series) COVID-19 VACCINE (5 - Booster for Moderna series) [facility] Start: 04-05-2022 Influenza vaccination INFLUENZA (#1) [facility] Start: 10-02-2021 COVID-19 VACCINE (4 - Booster for Moderna series) COVID-19 VACCINE (4 - Booster for Moderna series) [facility] Start: 08-05-2021 ADVANCE DIRECTIVE DISCUSSION ADVANCE DIRECTIVE DISCUSSION [facility] Start: 08-05-2021 DEPRESSION ASSESSMENT DEPRESSION ASS ESSMENT [facility] Start: 06-22-2020 BP CONTROLLED (<130/80) BP CONTROLLE D (<130/80) [facility] Cardiac event recording [facility] COVID & INFLUENZA A/ B & RSV PCR, ROUTINE COVID & INFLUENZA A/B & RSV PCR, ROUTINE Microbiology Routine Acute URI Ordered: 02/26/2025 [facility] Work Phone: Comment on above: Ordered: 02/26/2025 End: 04-23-2023 ECG COMPLETE ECG COMPLETE ECG Routine Aortic valve replaced 1 Occurrences starting 04/23/2022 until 04/23/2023 [facility] Work Phone: Comment on above: 1 Occurrences starti ng 04/23/2022 until 04/23/2023 ECG COMPLETE ECG COMPLETE ECG Routine Essential hypertension Hyperlipidemia, unspecified hyperlipidemia type Ordered: 06/18/2023 [facility] Work Phone: Comment on above: Ordered: 06/18/2023 ECG COMPLETE ECG COMPLETE ECG Routine Screening for ischemic heart disease Ordered: 12/18/2023 [facility] Work Phone: Comment on above: Ordered: 12/18/2023 ECG COMPLETE ECG COMPLETE ECG 12/23/2023 3:45 PM EDT [facility] End: 06-24-2024 Echocardiography ECHO Cardiology Routine Aortic valve replaced SAUCEDA (dyspnea on exertion) 1 Occurrences starting 06/24/2023 until 06/24/2024 [facility] Work Phone: Comment on above: 1 Occurrences starti ng 06/24/2023 until 06/24/2024 End: 08-31-2025 Echocardiography ECHO Cardiology Routine 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 Aortic valve replaced 1 Occurrences starting 08/31/2024 until 08/31/2025 [facility] Work Phone: Comment on above: 1 Occurrences starti ng 08/31/2024 until 08/31/2025 Patient Education [facility] Work Phone: Patient referral [facility] Work Phone: Urine culture [facility] Urine culture [facility] End: 04-30-2023 US [facility] Vascular Lab Routine Carotid stenosis, asymptomatic, bilateral 1 Occurrences starting 04/30/2022 until 04/30/2023 [facility] Work Phone: Comment on above: 1 Occurrences starti ng 04/30/2022 until 04/30/2023 End: 06-24-2024 US [facility] US [facility] Vascular Lab Routine Carotid stenosis, asymptomatic, bilateral 1 Occurrences starting 06/24/2023 until 06/24/2024 [facility] Work Phone: Comment on above: 1 Occurrences starti ng 06/24/2023 until 06/24/2024 End: 06-06-2025 US Lower extremity vein - bilateral US DVT LOWER BILATERAL Radiology STAT Bilateral leg pain Bilateral lower extremity edema 1 Occurrences starting 05/07/2024 until 06/06/2025 [facility] Comment on above: 1 Occurrences starti ng 05/07/2024 until 06/06/2025 [facility] Immunizations Immunization Date Immunization Notes Care Provider [facility] 02-08-2025 COVID-19 vaccine, ag e 12+ yr ([employer] [facility]) Oniel Francis MD Work Phone: [facility] 06-03-2024 influenza virus vacc ine, unspecified formulation Oniel Francis MD Work Phone: [facility] 06-14-2023 respiratory syncytia l virus (RSV) vaccine, adjuvanted (AREXVY) Ella Valdovinos PA-C Work Phone: [facility] 06-14-2023 RSV vaccine preF3, recombinant DR DEAN CALDWELL MD [facility] 05-27-2023 SARS-CoV-2 (COVID-19 ) [id number] DR DEAN CALDWELL MD [facility] 06-08-2022 SARS-CoV-2 (CV19)mRNA-[address] DEAN CALDWELL MD [facility] 10-19-2022 influenza, high-dose , quadrivalent vaccine (FLUZONE HIGH DOSE QUADRIVALENT) Ut Nurse Work Phone: [facility] Work Phone: 05-23-2022 influenza virus vacc ine, unspecified formulation Marj Mackey MD Work Phone: [facility] 02-23-2022 SARS-CoV-2 (COVID-19 ) mRNA-[id number] DEAN CALDWELL MD [facility] Comment on above: Result Comment: 2023: BOOSTER #2 12-12-2021 pneumococcal polysaccharide vaccine, 23 valent Abby Pate MD Work Phone: [facility] 06-09-2021 influenza virus vacc ine, unspecified formulation DR DEAN CALDWELL MD [facility] 06-09-2021 influenza, high-dose , quadrivalent vaccine (FLUZONE HIGH DOSE QUADRIVALENT) Ella Valdovinos PA-C Work Phone: [facility] 06-01-2021 SARS-CoV-2 (COVID-19 ) mRNA-[address] DEAN CALDWELL MD [facility] 09-28-2020 COVID-19 vaccine, fu ll dose (MODERNA) Ella Valdvoinos PA-C Work Phone: [facility] Work Phone: 08-31-2020 COVID-19 vaccine, fu ll dose (MODERNA) Ella Valdovinos PA-C Work Phone: [facility] Work Phone: 06-22-[address] DEAN CALDWELL MD [facility] 06-21-2020 zoster vaccine recombinant Ella Valdovinos PA-C Work Phone: [facility] 05-25-2020 influenza virus vacc ine, unspecified formulation DR DEAN CALDWELL MD [facility] 05-25-2020 influenza, high-dose , quadrivalent vaccine (FLUZONE HIGH DOSE QUADRIVALENT) Ella Valdovinos PA-C Work Phone: [facility] Work Phone: 04-26-2020 zoster vaccine recombinant Ella Valdovinos PA-C Work Phone: [facility] 06-09-2019 influenza virus vacc ine, unspecified formulation DR DEAN CALDWELL MD [facility] 05-14-2018 influenza virus vacc ine, unspecified formulation DR DEAN CALDWELL MD [facility] 12-03-2017 diphtheria, tetanus toxoids and acellular pertussis vaccine, unspecified formulation Ella Valdovinos PA-C Work Phone: [facility] 12-03-2017 tetanus toxoid, redu lorraine diphtheria toxoid, and acellular pertussis vaccine, adsorbed Ella Valdovinos PA-C Work Phone: [facility] 06-19-2017 influenza virus vacc ine, unspecified formulation DR DEAN CALDWELL MD [facility] 06-19-2017 influenza, injectabl e, quadrivalent, contains preservative Ella Valdovinos PA-C Work Phone: [facility] 05-25-2016 influenza virus vacc ine, unspecified formulation DR DEAN CALDWELL MD [facility] 05-25-2016 influenza, high dose seasonal, preservative-free Ella Valdovinos PA-C Work Phone: [facility] 12-27-2015 pneumococcal polysaccharide vaccine, 23 valent Ella Valdovinos PA-C Work Phone: [facility] 05-16-2015 influenza virus vacc ine, unspecified formulation Ella Valdovinos PA-C Work Phone: [facility] Work Phone: 12-22-2014 pneumococcal conjuga te vaccine, 13 valent Elladu Valdovinos PA-C Work Phone: [facility] Work Phone: 10-22-2014 tetanus toxoid, redu lorraine diphtheria toxoid, and acellular pertussis vaccine, adsorbed Elladu Valdovinos PA-C Work Phone: [facility] Work Phone: 10-18-2014 pneumococcal conjuga te vaccine, 13 valent Ella Valdovinos PA-C Work Phone: [facility] 05-12-2014 influenza virus vacc ine, unspecified formulation DR DEAN CALDWELL MD [facility] 05-12-2014 influenza, seasonal, injectable Ella Valdovinos PA-C Work Phone: [facility] 05-16-2013 influenza virus vacc ine, unspecified formulation Ella Valdovinos PA-C Work Phone: [facility] 05-24-2012 influenza virus vacc ine, unspecified formulation Ella Valdovinos PA-C Work Phone: [facility] 06-22-2011 influenza virus vacc ine, unspecified formulation Ella Valdovinos PA-C Work Phone: [facility] 05-25-2010 influenza virus vacc ine, unspecified formulation Ella Valdovinos PA-C Work Phone: [facility] Work Phone: 05-24-2009 influenza virus vacc ine, unspecified formulation Ella Valdovinos PA-C Work Phone: [facility] Work Phone: 05-24-2009 zoster vaccine, live Ella Valdovinos PA-C Work Phone: [facility] Work Phone: 06-10-2007 influenza virus vacc ine, unspecified formulation Ella Valdovinos PA-C Work Phone: [facility] 2006 pneumococcal polysaccharide vaccine, 23 valent Ella Valdovinos PA-C Work Phone: [facility] Work Phone: 07-05-2005 influenza virus vacc ine, unspecified formulation Ella Valdovinos PA-C Work Phone: [facility] Work Phone: 06-30-2005 diphtheria and tetan us toxoids, adsorbed for pediatric use Ella Valdovinos PA-C Work Phone: [facility] Work Phone: Payers Date Payer Category Payer Self-pay 2019 Medicare (Managed Care) [employer] ROB O Member Subscriber Plan / Payer (Effective 2019-Present) Name: Soniya Cooley Relation to Subscriber: Self Name: Soniya Cooley Payer ID: [id number] (NAIC) Group ID: [id number] Type: HMO Address: [address] [place] [id number] 2019 Unknown [employer]USHI[employer] ARDON RUST S AND BLUE [employer]IELD ANTHYAMIL MEDIBLUE O [id number] 2019-Present [phone] [address] [place] [address] [facility] [id number] 2019 Unknown [id number] 2019 Unknown [id number] 1941 Unknown [id number] [id number]. 2.278 1941 Unknown [id number] 2.16.840.1.636433.3.579. 2.278 1941 Unknown [id number] 2.16.840.1.939454.3.579. 2.278 1941 Unknown [id number] 2.16.840.1.973638.3.579. 2.627 1941 Unknown [id number] 2.16.840.1.541576.3.579. 2.627 1941 Unknown [id number] 2.16.840.1.613786.3.579. 2.627 Unknown [id number] Unknown [id number] 2.16.840.1.073911.3.579. 2.462 Unknown [id number] 2.16.840.1.349024.3.579. 2.462 Unknown [id number] 2.16.840.1.766885.3.579. 2.462 Unknown [id number] 2.16.840.1.831656.3.579. 2.462 Unknown [id number] 2.16.840.1.434276.3.579. 2.462 Unknown [id number] 2.16.840.1.943774.3.579. 2.462 Unknown [id number] 2.16.840.1.146654.3.579. 2.462 Unknown [id number] 2.16.840.1.910507.3.579. 2.462 Unknown [id number] 2.16840.1.024919.3.579. 2.462 Unknown [id number] 2.16.840.1.843780.3.579. 2.462 Unknown [id number] [id number]. 2.462 Social History Date Type Detail Facility Start: 02-22-2011 End: 04-10-2025 Tobacco smoking status TXIS Never smoked tobacco [facility] Start: 08-14-2021 End: 04-12-2025 Alcohol intake Current drinker of alcohol (finding) [facility] Start: 08-14-2021 End: 09-11-[address] [facility] Start: 06-03-2020 End: 06-19-2022 History SDOH Alcohol Frequency 3 [facility] Start: 12-10-2019 End: 06-03-2020 History SDOH Alcohol Std Drinks 98 [facility] Start: 06-03-2020 End: 06-19-2022 History SDOH Alcohol Binge 1 [facility] Start: 03-14-2020 End: 06-19-2022 History SDOH Social Connections Phone 4 [facility] Start: 03-14-2020 End: 06-19-2022 History SDOH Social Connections Get Together 2 [facility] Start: 03-14-2020 History SDOH Physica l Activity DPW 6 [facility] Start: 12-10-2019 End: 06-19-2022 History SDOH Physical Activity MPS 5 [facility] Start: 12-10-[address] [facility] Start: 1940 Sex Assigned At Male C [facility] Work Phone: Start: 11-14-2021 End: 06-22-2022 Exposure to SARS-CoV-2 (event) Not sure [facility] Start: 02-22-2011 Tobacco use and exposure Smoke less tobacco non-user [facility] Work Phone: Start: 06-19-2022 End: 09-11-2024 Social connection and isolation panel [facility] Do you belong to any clubs or organizations such as shinto groups, unions, fraternal or athletic groups, or school groups? No [facility] Are you now , , , , never or living with a partner? [facility] How often to you hav e a drink containing alcohol? 2-[address] [facility] How many standard dr inks containing alcohol do you have on a typical day? [address] [facility] How often do you hav e 6 or more drinks on 1 occasion? Never [facility] Start: 07-06-2012 How hard is it for y ou to pay for the very basics like food, housing, medical care, and heating Not hard at all [facility] Do you feel stress - tense, restless, nervous, or anxious, or unable to sleep at night because your mind is troubled all the time - these days [OSQ] Not at all [facility] (I/We) worried norbert er (my/our) food would run out before (I/we) got money to buy more. Never true [facility] Start: 10-10-2018 Gender identity Identifies as male gender (finding) [facility] Work Phone: Sex Assigned At Sex [facility] Do you belong to any clubs or organizations such as shinto groups, unions, fraternal or athletic groups, or school groups? Yes [facility] Start: 05-29-2016 Alcohol Alcohol [facility] Start: 05-29-2016 Lives Lives [facility] Start: 05-29-2016 Tobacco Use Tobacco Use [facility] How often to you hav e a drink containing alcohol? Monthly or less [facility] Medical Equipment Procedure Code Equipment Code Equipment Original Text Equipment Identifier Dates [place] Thk1.65mm P tfe 4x.5in Cardiovascular Sterile - [id number] Start: 10-29-2018 Valve Aort 27mm Crp-Ed Thfx - [id number] Start: 10-29-2018 Goals Date Patient Goal Desired Activity /State Personal health goal Functional Status Date Assessment Result Facility 04-08-2025 Functional status Chair [facility] Work Phone: 02-08-2025 Total score [AUDIT-C] 1 02/09/20 8:03 AM Mayra Garcia MA [facility] 01-19-2025 Functional status Activity Abili ty Independent [facility] Work Phone: 02-19-2024 Functional Status Mod I [facility] 02-19-2024 Functional Status Single level home [facility] 02-19-2024 Functional Status Front wheeled walker [facility] 02-19-2024 Functional Status [facility] 02-19-2024 Functional Status Identified as high risk, Fall ID band on, Room located near nursing station, Bed alert on, Door open, Bathroom light on, Non-Slip footwear, Room check performed [facility] 02-19-2024 Functional Status Gadiel Ramesh [place] 02-18-2024 Functional Status Gadiel Youngltman [place] 02-18-2024 Functional Status Gadiel Ramesh [place] 02-18-2024 Functional Status Gadiel Ramesh [place] 02-18-2024 Functional Status Maintained Gadiel Youngl[place]man [place] 11-03-2018 Are you deaf, or do you have serious difficulty hearing No 11/03/2018 12:09 PM EDT Bekah Garza (Rn)(Hist), RN No [facility] 11-03-2018 Are you blind, or do you have serious difficulty seeing, even when wearing glasses No 11/03/2018 12:09 PM EDT Bekah GarzaRn)(Hist), RN No [facility] 11-03-2018 Do you have serious difficulty walking or climbing stairs No 11/03/2018 12:09 PM EDT Bekah GarzaRn)(Hist), RN No [facility] 11-03-2018 Do you have difficul ty dressing or bathing No 11/03/2018 12:09 PM EDT Bekah GarzaRn)(Hist), RN No [facility] 11-03-2018 Because of a physica l, mental, or emotional condition, do you have difficulty doing errands alone such as visiting a physician's office or shopping No 11/03/2018 12:09 PM EDT Bekah GarzaRn)(Hist), RN No [facility] Mental Status Date Assessment Result Facility 04-08-2025 Cognitive function Level Of Cons ciousness Awake;Alert;Appropriate;Fol lows Commands [facility] Work Phone: 04-08-2025 Cognitive function Voice/Name [facility] Work Phone: 01-19-2025 Cognitive function Voice/Name [facility] Work Phone: 02-19-2024 Mental Status Oriented x 4 [facility]-18-[facility]24 [facility] Status [facility] 02-18-2024 Mental Status [facility] 11-03-2018 Because of a physica l, mental, or emotional condition, do you have serious difficulty concentrating, remembering, or making decisions No 11/03/2018 12:09 PM EDT Bekah Garza (Rn)(Hist), RN No [facility] Clinical Notes 10-03-2018 to 04-30-2025 Marj Mackey MD - 04/12/2025 11:00 AM EDT Note Date & Type Note Facility 04-30-2025 Note HNO ID: [id number] Author: MAYRA VALENCIA MA Service: ? Author Type: Territory Account Executive Type: Progress Notes Filed: 04/30/2025 08:54 Note Text: Scan on 04/29/2025 4:39 PM by Provider, External, PAArielleC: Post Op visit, [facility]. Jara [facility] 04-12-2025 History of Present illness Narrative Images from the original note were not included. [facility] SECTION [facility] REGIONAL CARDIOLOGY Cardiology ([facility]) [address] [facility] [id number] OUTPATIENT VISIT DATE 04/12/2025 PRIMARY CARE PHYSICIAN: Oniel Francis [address] [place] [address] HISTORY OF PRESENT ILLNESS: Mr. Cooley is a 84 year old gentleman with a history of [...] He presents the office for routine follow-up. The patient experienced a TIA on January 19, characterized by slurred speech and inability to ambulate due to leg weakness. He was hospitalized and discharged with a prescription for Plavix, which he did not initiate due to upcoming eye surgery and TURP. He has not resumed aspirin since the TURP. He denies any palpitations or arrhythmias. A recent clinical research monitor showed unremarkable results. A carotid ultrasound last year and an echocardiogram earlier this year were both normal. He reports mild ankle edema but denies excessive salt intake. He underwent TURP last Saturday and subsequently required two ED visits due to severe pain necessitating catheter replacement and irrigation. He is scheduled for a trial of catheter removal tomorrow. He reports a recent episode of hypertension with a systolic BP over 200 mmHg, likely secondary to pain during the catheterization process. His LDL was 52 mg/dL in February. He and his both contracted COVID-19, delaying their follow-up visit. He has a history of two open-heart surgeries, the most recent being six years ago. PAST MEDICAL HISTORY Diagnosis Date Acquired hypothyroidism [...] on dc. Elevated fasting blood sugar 06/19/2016 Elevated hemoglobin A1c 06/19/2016 Essential hypertension 10/30/2018 Family history of colon cancer 01/31/2010 Family history of malignant neoplasm of gastrointestinal tract Family history of Parkinson's disease 12/11/2019 History of DVT (deep vein thrombosis) 06/19/2017 Patient was on coumadin at the time. spring History of rheumatic heart disease 10/09/2002 Hx of transient ischemic attack (TIA) 02/08/202501/2025 Living will on file 12/12/2021 DPA: Matthew () Meniscus tear 12/27/2015 Right, minimal. Seen [...] Dr. Dash Skin cancer screening 02/08/2025 Seeing [facility] Sleep disorder 07/26/2015 Synovial cyst of right [...] 09/14/2020 REMV CATARACT EXTRACAP,INSERT LENS Bilateral 2021 REMV CATARACT EXTRACAP,INSERT LENS Left 03/17/2025 RPLCMT PROST AORTIC VALVE OPEN XCP HOMOGRF/STENT 10/13/2002 Aortic valve replacement RPR 1ST INGUN HRNA AGE 5 YRS/> REDUCIBLE Hernia repair, inguinal SKIN BIOPSY HX TEAEC W/PATCH GRF CAROTID VERTB SUBCLAV NECK INC 12/24/2008 Endarterectomy, carotid, Left TONSILLECTOMY HX TOTAL KNEE REPLACEMENT Left 02/18/2024 TRANSURETHRAL ELEC-SURG PROSTATECTOM 04/07/[address] Messina in [place] SOCIAL HISTORY Social History Tobacco Use Smoking [...] Pt reports he was told by the hand spring repairer helper that they almost lost him due to his reaction and was allergic reaction. The patient reports taking 13 hour allergy premedications in the past with Iodinated contrast without experiencing any breakthrough reaction. Penicillin G Hives MEDICATIONS: finasteride (PROSCAR) 5 mg tablet Take 1 tablet by mouth once daily. carbidopa-levodopa CR (SINEMET CR) 25-100 mg per tablet Take 3 pills at bedtime. propranolol ER (INDERAL LA) 80 mg 24 hr capsule TAKE ONE CAPSULE BY MOUTH EVERY DAY tamsulosin (FLOMAX) 0.4 mg Take 2 capsules by mouth daily at bedtime. atorvastatin (LIPITOR) 80 mg tablet Take 1 tablet by mouth once daily. levothyroxine (SYNTHROID) 25 mcg tablet Take 1 tablet by mouth once daily. Take on empty stomach. For thyroid. carbidopa-levodopa (SINEMET 25-100) 25-100 mg per tablet Take 3 tablets by mouth three times a day. ezetimibe (ZETIA) 10 mg tablet Take 1 tablet by mouth once daily. nitroglycerin sublingual (NITROQUICK) 0.4 mg SL tablet Dissolve 1 tablet under the tongue every 5 minutes as needed. clindamycin (CLEOCIN) 150 mg capsule Take 4 tabs 30-60 min before dental procedures. acetaminophen (TYLENOL) 500 mg tablet Take 1,000 mg by mouth every 8 hours as needed for Pain. clopidogrel (PLAVIX) 75 mg tablet Take 1 tablet by mouth once daily. cyanocobalamin, vitamin B-12, 500 mcg ODT Take 2 tablets by mouth once daily. (Patient not taking: Reported on 03/24/2025) aspirin, enteric coated (ECOTRIN LOW STRENGTH) 81 mg EC tablet Take 1 tablet by mouth once daily. Cholecalciferol, Vitamin D3, 2,000 unit cap Take 2 tablets by mouth once daily. (Patient not taking: Reported on 03/24/2025) omega-3 fatty acids/vitamin e(FISH OIL 1,000 MG CAP) one tablet twice daily multivitamins w-minerals/lut(CENTRUM SILVER TAB) One tablet daily (Patient not taking: Reported on 03/24/2025) REVIEW OF SYSTEMS: Review of Systems Constitutional: [...] Psychiatric/Behavioral: Negative for depression. PHYSICAL EXAMINATION: BP 146/87 Pulse 61 Wt 188 lb (85.3kg) SpO2 96% General: Pleasant gentleman sitting appears comfortable no apparent distress. He is alert and oriented x3 HEENT: Carotid upstrokes are brisk bilaterally. Left carotid endarterectomy scar noted. No JVD. Pulmonary: Lungs are clear no rales, wheezes, rhonchi Cardiovascular: Normal S1, S2 with regular rate and rhythm. [place] aortic valve sounds noted. CARDIOVASCULAR MEDICINE TESTING: [...] 0.85 which was hemodynamically significant. Impressions: Severe kalispel multivessel CAD Patent Bypass grafts Echocardiogram [facility] 01/08/2020 Normal LV size, mild concentric [...] distance (>5 mm) from the sternum. Echocardiogram 09/17/2024: - The left ventricle is normal in [...] Prior peak AV velocity was 156.3 cm/s. Echocardiogram 08/20/2023: - The left ventricle is [...] Vertebral artery: Patent and antegrade flow noted. Event monitor 01/27 - 02/10/2025: Predominant rhythm was sinus rhythm Max HR 146 bpm min HR 44 bpm, average HR 67 bpm There were 57,508 VE beats with a burden of 4%. There was 1 occurrence of ventricular tachycardia 7 beats There were 8 occurrences of SVT with the fastest episode of 146 bpm and the longest episode 6 beats CABG/AVR Date of Surgery: 10/29/2018 Primary Surgeon: Michelle Ramirez MD Operations: Reoperative median sternotomy, coronary artery bypass grafting with in situ left internal thoracic artery to the LAD and replacement of aortic valve with #27 CE valve IMPRESSION: Mr. Cooley is a 84 year old gentleman with a history of [...] AND RECOMMENDATIONS: 1. 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 Continue current medical therapy and risk factor model furcation 2. Aortic valve replaced - ICD9: V43.3, ICD10: Z95.2 Well-functioning aortic valve on most recent echocardiogram 3. Essential hypertension - ICD9: 401.9, ICD10: I10 Adequate control on current regimen 4. Mixed hyperlipidemia - ICD9: 272.2, ICD10: E78.2 Maintained on atorvastatin 80 mg daily. Fasting blood work from February 2025 was reviewed. LDL cholesterol 52 mg/dL 5. Carotid stenosis, asymptomatic, bilateral - ICD9: 433.10, 433.30, ICD10: I65.23 Marj Mackey MD documented in this encounter [facility] 04-12-2025 Note HNO ID: [id number] Author: MARJ MACKEY MD Service: ? Author Type: Physician Type: Progress Notes Filed: 04/12/2025 12:15 Note Text: [facility] SECTION [facility] REGIONAL CARDIOLOGY Cardiology ([address]) [address] [facility] [id number] OUTPATIENT VISIT DATE 04/12/2025 PRIMARY CARE PHYSICIAN: Oniel Francis [address] [place] [address] HISTORY OF PRESENT ILLNESS: Mr. Cooley is a 84 year old gentleman with a history of coronary artery disease with remote coronary bypass grafting with an SVG graft to dominant left circumflex, left PDA with a Y graft to the diagonal branch (2002). He underwent repeat grafting aortic valve replacement in 2018 with a LLANOS graft LAD and Bernice-Rush aortic valve replacement. He has a history of carotid artery disease with prior left carotid endarterectomy, hypertension, dyslipidemia. He presents the office for routine follow-up. The patient experienced a TIA on January 19, characterized by slurred speech and inability to ambulate due to leg weakness. He was hospitalized and discharged with a prescription for Plavix, which he did not initiate due to upcoming eye surgery and TURP. He has not resumed aspirin since the TURP. He denies any palpitations or arrhythmias. A recent clinical research monitor showed unremarkable results. A carotid ultrasound last year and an echocardiogram earlier this year were both normal. He reports mild ankle edema but denies excessive salt intake. He underwent TURP last Saturday and subsequently required two ED visits due to severe pain necessitating catheter replacement and irrigation. He is scheduled for a trial of catheter removal tomorrow. He reports a recent episode of hypertension with a systolic BP over 200 mmHg, likely secondary to pain during the catheterization process. His LDL was 52 mg/dL in February. He and his both contracted COVID-19, delaying their follow-up visit. He has a history of two open-heart surgeries, the most recent being six years ago. PAST MEDICAL HISTORY Diagnosis Date Acquired hypothyroidism [...] on dc. Elevated fasting blood sugar 06/19/2016 Elevated hemoglobin A1c 06/19/2016 Essential hypertension 10/30/2018 Family history of colon cancer 01/31/2010 Family history of malignant neoplasm of gastrointestinal tract Family history of Parkinson's disease 12/11/2019 History of DVT (deep vein thrombosis) 06/19/2017 Patient was on coumadin at the time. spring History of rheumatic heart disease 10/09/2002 Hx of transient ischemic attack (TIA) 02/08/202501/2025 Living will on file 12/12/2021 DPA: Matthew () Meniscus tear 12/27/2015 Right, minimal. Seen [place] [facility] Microscopic hematuria 01/10/2021 Saw Luciano 02/2021 [...] 2006 Rheum heart dis NEC/NOS Rheumatic fever Seas (more content not included)... [facility] 04-10-2025 Discharge summary [facility] 04-10-2025 Discharge summary Note Date/Time April 10, 2025 8:51pm [facility] Medical Records Department [address] [place] [address] Emergency Department Summary 04/10/25 MR#: [id number] Acct: [id number] Name: SONIYA COOLEY Rep #:[id number] : 1940 84 From: Juno schilling DO PCP: Dr. Oniel Francis MD Status:REG ER Location: ED HPI History of Present Illness Chief Complaint: Cárdenas C/O Narrative Narrative: Chief complaint and HPI: 84-year-old male with recent transurethral section of prostate by Dr. Jara presents for evaluation of urinary retention and hematuria. Associated symptom is suprapubic abdominal pain. Patient was seen early this morning for same complaint in which she had Cárdenas catheter placed. He states his symptoms improved with the Cárdenas catheter however he developed urinary retention and has not been able to urinate into the Cárdenas bag since noon. He denies any fever, chills, shortness of breath, chest pain, nausea, vomiting. Review of systems: See HPI Medications: As listed on the chart Allergies: As listed on the chart PFSH: Per chart Vital signs: As listed on the chart. Reviewed. Physical exam: Gen: A&O x3, NAD Head: Normocephalic, atraumatic Eyes: No sclera icterus, conjunctiva clear ENT: Moist mucous membranes Neck: Trachea midline, No JVD CV: RRR, no murmurs, no peripheral edema Resp: Lungs CTA BL, no w/r/c GI: Abd soft, distended suprapubically secondary to bladder, tender to palpationsuprapubically, no r/r/g : No CVA tenderness. Circumcised penis. No penile tenderness or discharge. No penile or testicular swelling. Normal lie and position of the testicles. No testicular tenderness, masses, or skin changes. No rashes. 16 [place] Island[place] Cárdenas catheter in place with dried blood at the penile meatus. Minimal/bloody urine in Cárdenas catheter. Musc: Full ROM, no deformity Skin: Warm, dry Neuro: Alert, oriented, grossly intact, sensation intact Psych: Cooperative, appropriate mood and affect [facility] Medical History Thyroid disease History of steroid therapy Back [...] artery disease Atherosclerosis of coronary artery of [place] heart without angina pectoris Essential hypertension Contusion [...] BID 7 days # 14 TABLETS 04/10/25 Un known Rx Allergy/AdvReac Type Severity Reaction Status Date / Time iodine Allergy Other Verified 04/10/25 18:48 Penicillins Allergy Hives Verified 04/10/25 18:48 Family History Mother Heart disease Colon cancer Father Diabetes Sister Heart disease Brother Heart disease Surgical History History of total left knee replacement History [...] EXAM Physical Exam Const Vital Signs: 04/10/25 18:48 Temperature 98.1 F Temperature Source Oral Pulse Rate 72 Respiratory Rate 18 Blood Pressure 104/66 Blood Pressure Mean 78 Pulse Ox 96 Oxygen Delivery Method Room Air MDM MDM MDM Narrative Medical decision making narrative: 84-year-old male with recent transurethral resection of prostate by Dr. Jara presents for evaluation of urinary retention and hematuria. Associated symptom is suprapubic abdominal pain. Patient was seen early this morning for same complaint in which she had Cárdenas catheter placed. He states his symptoms improved with the Cárdenas catheter however he developed urinary retention and has not been able to urinate into the Cárdenas bag since noon. On chart review, patient had basic labs performed earlier this morning that were relatively unremarkable. He did have a UA that was concerning for UTI and placed on a 7-day course of ciprofloxacin. Physical exam shows a distended bladder with hematuria and a 16 [place] catheter. See above. Differential diagnosis includesbut is not limited to urinary retention, hematuria, electrolyte abnormality, NAVDEEP, UTI. Will change out patient's Cárdenas catheter for a larger [place] such as a 22F or 20F. Will perform bladder irrigation. Will obtain basic labs including a urine. I do not think any CT abdomen pelvis is needed at this time. Bladder scan greater than 500. Patient retaining. 22 [place] catheter placed. Patient's symptoms immediately improved once Cárdenas catheter was placed. Patienthad hematuria with blood clots with Cárdenas insertion and urine output. Irrigatedto clear. CBC with mild leukocytosis of 12.8. No anemia. Same leukocytosis earlier today. Patient's leukocytosis was similar this morning. BMP relatively unremarkable without NAVDEEP. UA positive for UTI. Patient already on ciprofloxacin. Will send for another urine culture. Patient stable to discharge home. Follow-up with urology. He confirmed understand the plan. Impression: 1. Urinary retention 2. Hematuria 3. UTI 4. Recent TURP Lab Data Labs: Laboratory Results - last 24 hr 04/10/25 20:09 WBC 12.8 H RBC 3.96 L Hgb 13.0 Hct 37.0 L MCV 93.4 MCH 32.8 H MCHC 35.1 RDW Std Deviation 45.1 H RDW Coeff of Adrian 13.1 Plt Count 194 MPV 10.2 Immature Gran % (Auto) 0.600 Neut % (Auto) 65.7 Lymph % (Auto) 21.9 [place] % (Auto) 8.3 Eos % (Auto) 3.1 Baso % (Auto) 0.4 Absolute Neuts (auto) 8.4 H Absolute Lymphs (auto) 2.81 Nucleated RBC % 0 Sodium 139 Potassium 3.8 Chloride 105 Carbon Dioxide 19.9 L Anion Gap 14 BUN 25 H Creatinine 0.92 Estim Creat Clear Calc 64.56 Est GFR (MDRD) Non-Af 83 BUN/Creatinine Ratio 26.9 H Glucose 120 H Calcium 9.6 Urine Color Brown Urine Clarity Cloudy Urine pH 6.0 Ur Specific [place] 1.010 Urine Protein 100 H Urine Glucose (UA) Normal Urine Ketones 5 H Urine Occult Blood 250 H Urine Nitrite Positive H Urine Bilirubin Negative Urine Urobilinogen Normal Ur Leukocyte Esterase 100 H Urine RBC 10-25 SEEN Urine WBC 5-10 SEEN Ur Squamous Epith Cells 0-5 SEEN Urine Bacteria 3+ Urine Mucus 0 SEEN Discharge Plan Triage Chief Complaint: Cárdenas C/O ED Provider: Juno Bradley Dx/Rx/DC Orders Prescriptions: No Action acetaminophen 500 mg tablet 1,000 mg PO TID PRN (Reason: fever or pain) carbidopa-levodopa 25-100 mg tablet 3 tab PO TID levothyroxine 25 mcg tablet 25 mcg PO DAILY aspirin 81 mg tablet,chewable 81 mg PO DAILY Patient Comments: [facility] clopidogrel [Plavix] 75 mg tablet 75 [...] 0.4 mg capsule 0.8 mg PO QHS ciprofloxacin HCl 500 mg tablet 500 mg PO BID 7 Days Qty: 14 0RF Primary Care Provider: Oniel Francis Referrals: Oniel Francis MD [Primary Care Provider] - Print Language: Canadian What to do if you have Problems For any increased pain, shortness of breath, bleeding, nausea or vomiting, chestpain, or any unexpected problems, contact your Primary Care Provider. Call [facility] ([phone]) or report to the closest Emergency Room. Call 911 if necessary. 04/10/252050 <Electronically signed by Juno Bradley DO> Cosigner Signature (if applicable): CC: Dr. Oniel Francis MD ~ Signed [facility] Work Phone: 1(561) 234-332109-06-2025 Discharge summary [facility] Medical Records Department [address] [place] [address] Emergency Department Summary 04/10/25 MR#: [id number] Acct: [id number] Name: SONIYA COOLEY Rep #:[id number] 7 : 1940 84 From: Ronn Harrison PCP: Dr. Oniel Francis MD Status:REG ER Location: ED HPI History of Present Illness Chief Complaint: Abd Pain PFSH [facility] Medical History (Updated 03/24/25 @ 09:25 [...] artery disease Atherosclerosis of coronary artery of [place] heart without angina pectoris Essential hypertension Contusion [...] 10 mg tablet 10 mg PO DAILY 03/25/25/0 09/29 History finasteride 5 mg tablet 5 [...] after transurethral resection of prostate here at [facility] by Dr. Jara of the local urologist. [...] reviewed, Vital signs reviewed Constitutional: please see [facility] HENT: MMM Eyes: Pupils equal round and [...] nerves II through XII intact,5/5 strength in allpresent extremities. Intact sensation to light touch in all present extremities, 2+ reflexes bilateral patella tendons. Skin: No rash or lesions noted MEDICAL DECISION MAKING: Chief Complaint: please see [facility] External records reviewed: Reviewed operative report by Dr. Jara. Patient underwent cystoscopy with injection of Botox in the bladder and transurethral resection of the prostate on 04/07/2025 Factors affecting care: BPH, overactive bladder, urge incontinence Social determinants of health: none History obtained from others: Consults: none initially likely will require urology consultation once workup iscomplete. [facility] Narrative: The patient was initially hypertensive the [...] and urinary retention but no significant acute kidneyinjury or signs of renal failure. Urinalysis is [...] secondary to the patient having high probability ofclinically significant/life threatening deterioration in the patient's condition which required my urgent intervention. Impression: 1. Acute abdominal pain 2. History of TURP 3. History of BPH Dispo: Pending lab and imaging evaluation This note was generated with [employer] dictation software. It may contain incorrectwords, spelling, [...] 74.8 H Lymph % (Auto) 15.0 L [place] % (Auto) 7.8 Eos % (Auto) 1.4 [...] Sl. Cloudy Urine pH 6.0 Ur Specific [place] 1.015 Urine Protein 100 H Urine Glucose [...] mg PO DAILY Patient Comments: [facility] clopidogrel [Plavix] 75 [...] further outpatient evaluation and management. Print Language: Canadian Disposition Disposition: Home, Self Care What to do if you have Problems For any increased pain, shortness of breath, bleeding, nausea or vomiting, chestpain, or any unexpected problems, contact your Primary Care Provider. Call [facility] ([phone]) or report tothe closest Emergency Room. Call 911 if necessary. 04/10/25728 Cosigner Signature (if applicable): CC: Dr. Oniel Francis MD ~ Signed [facility]09-04-2025 Consult note [facility] Medical Records Department [address] [place] [address] Anesthesia Postop Eval I 04/07/25 1342 MR#: [id number] Acct: [id number] Name: SONIYA COOLEY Rep #:[id number] 7 : 1940 84 From: Fred XIAO NA PCP: Dr. Oniel Francis MD Status:REG SDC Y Race: C Location: [place] [address] Anesthesia: Postop Eval I Current Vital Signs Temperature: 97.8 F Pulse Rate: 55 Blood Pressure: 131/72 Respiratory Rate: 16 Pulse Ox: 92 Assessment Airway patent: Yes Spontaneous unlabored respirations: Yes nausea: No Vomiting: No Anesthesia Complication: No Fluid Hydration Crystalloid volume administer (ml): 1,000 Total IV fluid infused: 1,000 Progress Note Anesthesia document: Postop Eval 1 completed: Yes 04/07/25 1342 TELESCOPE OPERATOR> Date _ Fred Hernandez TELESCOPE OPERATOR Cosigner Signature: Date CC: ~ Signed [facility]09-04-2025 Consult note [facility] Medical Records Department [address] [place] [address] Anesthesia Postop Eval II 04/07/25 1515 MR#: [id number] Acct: [id number] Name: SONIYA COOLEY Rep #:[id number] : 1940 84 From: Dario Pires MD PCP: Dr. Oniel Francis MD Status:ADM DARI Y Race: C Location: DE3 MS308 -1 Anesthesia Postop Eval I Sum Postop Eval Completion status Anesthesia document: Postop Eval 1 completed: Yes Anesthesia Postop Eval I Summary Anesthesia Postop Eval I Summary: Anesthesia Postop Eval I: Assessment Summary 3 Airway patent Yes 04/07/25 13:42 TELESCOPE OPERATOR.TNES Spontaneous unlabored Yes 04/07/25 13:42 TELESCOPE OPERATOR.TNES respirations Mental status nausea No 04/07/25 13:42 TELESCOPE OPERATOR.TNES Vomiting No 04/07/25 13:42 TELESCOPE OPERATOR.TNES Anesthesia Postop Eval I: Fluid Summary Crystalloid volume administer 1,000 04/07/25 13:42 TELESCOPE OPERATOR.TNES (ml) Colloids volume administered ( ml) Blood Product volume administered (ml) Total IV fluid infused 1,000 04/07/25 13:42 TELESCOPE OPERATOR.TNES Anesthesia Postop Eval I: Summary Notes Anesthesia Complication No 04/07/25 13:42 TELESCOPE OPERATOR.TNES Anesthesia Complication Comment: Post-operative progress note Anesthesia: Postop Eval II Evaluation Mental status: Awake Pain Level: 0 nausea: No Vomiting: No Complications Anesthesia Complication: No 04/07/25 1515 > Date _ Dario Pires MD Cosigner Signature: Date CC: ~ Signed [facility]09-04-2025 NoteHNO ID: [id number] Author: MAYRA VALENCIA MA Service: ? Author Type: Territory Account Executive Type: Progress Notes Filed: 04/08/2025 11:46 Note Text: Scan on 04/08/2025 7:41 AM by ProviderKaren PA-C: [facility] of Present illness Narrative * Mayra Valencia MA - 04/08/2025 11:45 AM EDT Scan on 04/08/2025 7:41 AM by Provider, BRIAN JonesC: Dr. Jara [facility] Discharge summary Author Andi Jara [facility] Note Date/Time April 08, 2025 7:31am [facility] Medical Records Department [address] [place] [address] Discharge Summary 04/08/25 0730 MR#: [id number] Acct: [id number] Name: SONIYA COOLEY Rep #:[id number] 1 : 1940 84 From: Andi Jara MD PCP: Dr. Oniel Francis MD Status:ADM DARI Location: [place] [address] Providers Date of Admission: 04/07/25 Date of Discharge: 04/08/25 Primary Care Physician: Dr. Oniel Francis MD Reason For Visit: TURP Medications at Discharge Home Medications flfnibdk-avt-xhrma acid 0.4 mg-lycopene 300 mcg-lutein 250 mcg [...] Up With: Andi Jara MD When: Call [phone] for an appointment Meaningful Use Info Meaningful [...] 25 mcg tablet 25 mcg PO DAILY xyokmwfn-ash-VP-lycopen-lutein 1 EACH tablet 1 ea PO DAILY [...] Hold Instructions: Resume on 04/21/25. Patient Comments: [employer] [facility] clopidogrel [Plavix] 75 mg tablet 75 mg PO DAILY Hold Instructions: Resume on 04/21/25. Patient Comments: Patient never started after TIA Referrals / Follow Up: Oniel Francis MD [Primary Care Provider] - Andi Jara MD [Med Staff - Active Staff] - Disposition Discharge Orders: Discharge Patient (Routine); Ordered 04/08/25 Ordered By: Dr. Andi Jara 04/08/25 6097 <Electronically signed by Andi Jara MD> Cosigner Signature (if applicable): CC: Dr. Oniel Francis MD; Dr. Andi Jara MD~ Signed [facility] Work Phone: 1(476) 779-508809-04-2025 Discharge summary [facility] Medical Records Department [address] [place] [address] Discharge Summary 04/08/25 0730 MR#: [id number] Acct: [id number] Name: SONIYA COOLEY Rep #:[id number] : 1940 84 From: Andi Jara MD PCP: Dr. Oniel Francis MD Status:ADM DARI Location: [place]3 IR866-2 Providers Date of Admission: 04/07/25 Date of Discharge: 04/08/25 Primary Care Physician: Dr. Oniel Francis MD Reason For Visit: TURP Medications at Discharge Home Medications iiqqyczf-kzb-znorh acid 0.4 mg-lycopene 300 mcg-lutein 250 mcg [...] Up With: Andi Jara MD When: Call [phone] for an appointment Meaningful Use Info Meaningful [...] 25 mcg tablet 25 mcg PO DAILY jnoatadr-xqw-JZ-lycopen-lutein 1 EACH tablet 1 ea PO DAILY [...] Instructions: Resume on 04/21/25. Patient Comments: [facility] clopidogrel [Plavix] 75 mg tablet 75 mg PO DAILY Hold Instructions: Resume on 04/21/25. Patient Comments: Patient never started after TIA Referrals / Follow Up: Oniel Francis MD [Primary Care Provider] - Andi Jara MD [Med Staff - Active Staff] - Disposition Discharge Orders: Discharge Patient (Routine); Ordered 04/08/25 Ordered By: Dr. Andi Jara 04/08/25 07 Cosigner Signature (if applicable): CC: Dr. Oniel Francis MD; Dr. Andi Jara MD~ Signed [facility]09-04-2025 [facility] Medical Records Department [address] [place] [address] Discharge Summary 04/08/25729 MR#: [id number] Acct: [id number] Name: SONIYA COOLEY Rep #: [id number] : 1940 84 From: Andi Jara MD PCP: Dr. Oniel Francis MD Status:ADM DARI Location: [place] [address] Providers Date of Admission: 04/07/25 Date of Discharge: 04/08/25 Primary Care Physician: Dr. Oniel Francis MD Reason For Visit: TURP Medications at Discharge Home Medications zmajcgho-smg-jyvsf acid 0.4 mg-lycopene 300 mcg-lutein 250 mcg [...] Up With: Andi Jara MD When: Call [phone] for an appointment Meaningful Use Info Meaningful [...] 25 mcg tablet 25 mcg PO DAILY nqkvzggf-sqa-PX-lycopen-lutein 1 EACH tablet 1 ea PO DAILY [...] Instructions: Resume on 04/21/25. Patient Comments: [facility] clopidogrel [Plavix] 75 mg tablet 75 mg PO DAILY Hold Instructions: Resume on 04/21/25. Patient Comments: Patient never started after TIA Referrals / Follow Up: Oniel Francis MD [Primary Care Provider] - Andi Jara MD [Med Staff - Active Staff] - Disposition Discharge Orders: Discharge Patient (Routine); Ordered 04/08/25 Ordered By: Dr. Andi Jara 04/08/25 0731 Ameena Frank (more content not included)...[facility] 04-07-2025 Consult note Author Dario Pires [facility] Note Date/Time April 08, 2025 1:43pm [facility] Medical Records Department [address] [place] [address] Anesthesia Postop Eval II 04/07/251514 MR#: [id number] Acct: [id number] Name: SONIYA COOLEY Rep #:[id number] : 1940 84 From: Dario Pires MD PCP: Dr. Oniel Francis MD Status:ADM DARI Y Race: C Location: [place]3 MS308 -1 Anesthesia Postop Eval I Sum Postop Eval Completion status Anesthesia document: Postop Eval 1 completed: Yes Anesthesia Postop Eval I Summary Anesthesia Postop Eval I Summary: Anesthesia Postop Eval I: Assessment Summary 3 Airway patent Yes 04/07/25 13:42 TELESCOPE OPERATOR.TNES Spontaneous unlabored Yes 04/07/25 13:42 TELESCOPE OPERATOR.TNES respirations Mental status nausea No 04/07/25 13:42 TELESCOPE OPERATOR.TNES Vomiting No 04/07/25 13:42 TELESCOPE OPERATOR.TNES Anesthesia Postop Eval I: Fluid Summary Crystalloid volume administer 1,000 04/07/25 13:42 TELESCOPE OPERATOR.TNES (ml) Colloids volume administered ( ml) Blood Product volume administered (ml) Total IV fluid infused 1,000 04/07/25 13:42 TELESCOPE OPERATOR.TNES Anesthesia Postop Eval I: Summary Notes Anesthesia Complication No 04/07/25 13:42 TELESCOPE OPERATOR.TNES Anesthesia Complication Comment: Post-operative progress note Anesthesia: Postop Eval II Evaluation Mental status: Awake Pain Level: 0 nausea: No Vomiting: No Complications Anesthesia Complication: No 04/07/251514 <Electronically signed by Dario Pires MD> Date _ Dario Pires MD Cosigner Signature: Date CC: ~ Signed [facility] Work Phone: 1(578) 471-982809-03-2025 Consult note Author Fred Hernandez [facility] Note Date/Time April 08, 2025 1:43pm [facility] Medical Records Department [address] [place] [address] Anesthesia Postop Eval I 04/07/25 1342 MR#: [id number] Acct: [id number] Name: SONIYA COOLEY Rep #:[id number] : 1940 84 From: Fred TURNER PCP: Dr. Oniel Francis MD Status:REG SDC Y Race: C Location: [place] [address] Anesthesia: Postop Eval I Current Vital Signs Temperature: 97.8 F Pulse Rate: 55 Blood Pressure: 131/72 Respiratory Rate: 16 Pulse Ox: 92 Assessment Airway patent: Yes Spontaneous unlabored respirations: Yes nausea: No Vomiting: No Anesthesia Complication: No Fluid Hydration Crystalloid volume administer (ml): 1,000 Total IV fluid infused: 1,000 Progress Note Anesthesia document: Postop Eval 1 completed: Yes 04/07/251341 <Electronically signed by Fred Hernandez CRNA> Date _ Fred Mary JOHNSON Cosigner Signature: Date CC: ~ Signed [facility] Work Phone: [phone] Discharge summary Author Andi Jara [facility] Note Date/Time April 07, 2025 1:34pm [facility] Medical Records Department [address] [place] [address] Instructions for Home/Discharge Instructions 04/07/25 1333 MR#: [id number] Acct: [id number] Name: SONIYA COOLEY Rep #:[id number] : 1940 84 From: Andi Jara [...] Up With: Andi Jara MD When: Call [phone] for an appointment Test Results: Test results from this visit will be discussed in further detail at your follow- up appointment, if applicable. Discharge Plan Admission Primary Reason for Your Visit: TURP AND BOTOX Attending Provider: Andi Jara Primary Care Provider: Oniel Francis Instructions Print Language: Canadian Discharge Orders/Prescriptions Prescriptions: Continued acetaminophen 500 mg tablet 1,000 mg PO TID PRN (Reason: fever or pain) fluticasone propionate [Allergy Relief (fluticasone)] 50 mcg/actuation spray,suspension 1 spray INTRANASAL DAILY PRN (Reason: nasal congestion) carbidopa-levodopa 25-100 mg tablet 2 tab PO TID levothyroxine 25 mcg tablet 25 mcg PO DAILY dhaplyng-fwe-JY-lycopen-lutein 1 EACH tablet 1 ea PO DAILY [...] Hold Instructions: Resume on 04/21/25. Patient Comments: [facility] clopidogrel [Plavix] 75 mg tablet [...] CC: Dr. Oniel Francis MD ~ Signed [facility] Work Phone: [phone]) 697-142409-03-2025 Procedure note [facility] Medical Records Department [address] [place] [address] Operative Report 04/07/25 1334 MR#: [id number] Acct: [id number] Name: SONIYA COOLEY Rep #:[id number] : 1940 84 From: Andi Jara MD PCP: Dr. 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 Post-Operative Diagnosis: Same Surgery/Procedure Performed: Cystoscopy injection of Botox in the bladder and transurethral sectionof prostate electrical mechanic: No Type of Anesthesia: General RN Documented Start/Stop Times: Operation Date: 04/07/25 12:00 Case Time Into Pre-Op 04/07/25 09:57 Anesthesia Start 04/07/25 12:40 Into Room 04/07/25 12:40 Out of Pre-Op 04/07/25 12:40 Procedure Start 04/07/25 13:00 Procedure End 04/07/25 13:28 Into Recovery Procedure Start Time: 13:00 Procedure Stop Time: 13:28 Select all DRAINS/GRAFTS/IMPLANTS that apply: Drains Drain details: 22 [place] three-way Estimated Blood Loss: 10 cc Specimen [...] conditions again given Botox injection of the [id number] units discomfort on the bladder and will [...] went in the bladder with a 21 [place] rigid cystourethroscope, 100 units of Botox prepared [...] a median loop and used a 24 [place] 9 continuous-flow resectoscope identified the prostate identified [...] SCD's VTE Pharm Prophylaxis ordered?: No 04/07/25 9552 Cosigner Signature (if applicable): CC: Dr. Oniel Francis MD; Dr. Andi Jara MD~ Signed [facility]09-03-2025 Discharge summary [facility] Medical Records Department [address] [place] [address] Instructions for Home/Discharge Instructions 04/07/25 1333 MR#: [id number] Acct: [id number] Name: SONIYA COOLEY Rep #:[id number] : 1940 84 From: Andi Jara [...] Up With: Andi Jara MD When: Call [phone] for an appointment Test Results: Test results from this visit will be discussed in further detail at your follow- up appointment, if applicable. Discharge Plan Admission Primary Reason for Your Visit: TURP AND BOTOX Attending Provider: Andi Jara Primary Care Provider: Oniel Francis Instructions Print Language: [place] Discharge Orders/Prescriptions Prescriptions: Continued acetaminophen 500 mg tablet 1,000 mg PO TID PRN (Reason: fever or pain) fluticasone propionate [Allergy Relief (fluticasone)] 50 mcg/actuation spray,suspension 1 spray INTRANASAL DAILY PRN (Reason: nasal congestion) carbidopa-levodopa 25-100 mg tablet 2 tab PO TID levothyroxine 25 mcg tablet 25 mcg PO DAILY ueayeizp-xyv-BW-lycopen-lutein 1 EACH tablet 1 ea PO DAILY [...] CC: Dr. Oniel Francis MD ~ Signed [facility]09-03-2025 Consult note Author Dario [facility] Note Date/Time April 07, 2025 11:18am [facility] Medical Records Department [address] [place] [address] Pre-Anesthesia Evaluation 04/07/25 1112 MR#: [id number] Acct: [id number] Name: SONIYA COOLEY Rep #:[id number] 6 : 1940 84 From: Dario Pires MD PCP: Dr. Oniel Francis MD Status:REG [facility] Y Race: C Location: [place] [address] ASA Classification* ASA Classification ASA Classification: 3 [...] of complications, including but not limited to LA, CVA, and due to his recent TIA [...] IN BLADDER Anesthesia History Anesthesia History - toolmaker helper: Anesthesia History - toolmaker helper Hx Hospitalization Yes 03/24/25 09:11 Any Problems [...] take am of surgery PONV PONV - toolmaker helper: PONV - toolmaker helper Female No 03/24/25 09:11 HX of Motion [...] 04/07/25 10:17 Respiratory Assessment Respiratory Assessment - toolmaker helper: Respiratory Tract Infection Hx - toolmaker helper Hx Respiratory Tract Infection No 03/24/25 09:11 STOP Sleep Apnea STOP Sleep Apnea - toolmaker helper: STOP Sleep Apnea - toolmaker helper Hx Hypertension Yes 03/24/25 09:11 Hx Sleep [...] Tobacco Use History Tobacco Use History - toolmaker helper: Tobacco Use History - toolmaker helper Tobacco Use Non-smoker 01/19/25 17:00 Smoking Status Never smoker 03/24/25 09:11 Hx Tobacco Use No 03/24/25 09:11 Years Smoking Packs Smoked per Day Smoking Cessation Date was within the last 15 years Hx Smoking Cessation Date Hx Smoking Cessation No 03/24/25 09:11 Counseling Hematologic Medial History Hematologic Hx - toolmaker helper: Hematologic 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 Specify any problems Hx of Preganancy in last 3 N/A 03/24/25 09:11 Months Nurse Filling Out Transfusion [id number] 03/24/25 09:11 & Questions: Date: 03/24/25 03/24/25 09:11 Time: :03/24/25 09:11 Patient unable to answer at this time (ie. confused, unrespo /Reproduction History /Reproductive History - toolmaker helper: /Reproductive Hx- toolmaker helper Hx Now Gestational Age (in weeks): EDC: [...] artery disease Atherosclerosis of coronary artery of [place] heart without angina pectoris Essential hypertension Contusion of finger without damage to nail Laceration of finger of left hand without foreign body without damage to nail Hemorrhoids Shortness of breath Neck pain on left side Tingling and numbness left fingers Home Medications ?Medication ?Instructions ?Recorded ?Last Taken ?Type clgakqym-zvv-euwlr acid 0.4 1 ea PO DAILY SUPP [...] mg tablet 10 mg PO DAILY 03/25/25 09/09/29 History finasteride 5 mg tablet 5 mg [...] MD Cosigner Signature: Date CC: ~ Signed [facility] Work Phone: [phone]) 187-490109-03-2025 Consult note [facility] Medical Records Department [facility] [place] [address] Pre-Anesthesia Evaluation 04/07/25 1112 MR#: [id number] Acct: [id number] Name: SONIYA COOLEY Rep #:[id number] : 1940 84 From: Dario Pires MD PCP: Dr. Oniel Francis MD Status:REG SDC Y Race: C Location: [place] [address] ASA Classification* ASA Classification ASA Classification: 3 [...] of complications, including but not limited to LA, CVA, and due to his recent TIA [...] TSH 4.20 uIU/mL (0.358-3.74) H 01/08/20 10:06 06/12/22 COAG PT 13.4 SECONDS (11.7-14.9) 01/19/25 04:00 Pre-Assessment Diagnosis/Proposed Procedure Planned Operative Procedure(s): TRANSURETEHRAL RESECTION OF PROSTATE, BOTOX IN BLADDER Anesthesia History Anesthesia History - toolmaker helper: Anesthesia History - toolmaker helper Hx Hospitalization Yes 03/24/25 09:11 Any Problems [...] take am of surgery PONV PONV - toolmaker helper: PONV - toolmaker helper Female No 03/24/25 09:11 HX of Motion [...] 04/07/25 10:17 Respiratory Assessment Respiratory Assessment - toolmaker helper: Respiratory Tract Infection Hx - toolmaker helper Hx Respiratory Tract Infection No 03/24/25 09:11 STOP Sleep Apnea STOP Sleep Apnea - toolmaker helper: STOP Sleep Apnea - toolmaker helper Hx Hypertension Yes 03/24/25 09:11 Hx Sleep [...] Tobacco Use History Tobacco Use History - toolmaker helper: Tobacco Use History - toolmaker helper Tobacco Use Non-smoker 01/19/25 17:00 Smoking Status Never smoker 03/24/25 09:11 Hx Tobacco Use No 03/24/25 09:11 Years Smoking Packs Smoked per Day Smoking Cessation Date was within the last 15 years Hx Smoking Cessation Date Hx Smoking Cessation No 03/24/25 09:11 Counseling Hematologic Medial History Hematologic Hx - toolmaker helper: Hematologic Medical Hx - loan documentation specialist Hx of Blood Transfusion No 03/24/25 09:11 [...] confused, unrespo /Reproduction History /Reproductive History - toolmaker helper: /Reproductive Hx- toolmaker helper Hx Now Gestational Age (in weeks): EDC: [...] artery disease Atherosclerosis of coronary artery of [place] heart without angina pectoris Essential hypertension Contusion of finger without damage to nail Laceration of finger of left hand without foreign body without damage to nail Hemorrhoids Shortness of breath Neck pain on left side Tingling and numbness left fingers Home Medications ?Medication ?Instructions ?Recorded ?Last Taken ?Type npueinnx-vnr-jpgpz acid 0.4 1 ea PO DAILY SUPP [...] MD Cosigner Signature: Date CC: ~ Signed [facility]08-20-2025 NoteHNO ID: [id number] Author: ABBY PATE MD Service: ? Author Type: Physician Type: Progress Notes Filed: 04/22/2025 02:46 Note Text: Neurology Follow Up Note Subjective Soniya Cooley is an 84 year old male who presents for follow [...] no changes. 03/2024 try 350 mg TID. 09/2024 change metoprolol to propranolol, trazodone. HPI Current Issues - Not sure if propranolol was helpful, not sure about any benefit or side effect to the change - Holding off on vitamins due to swallowing issues - Urinating 5-10 times a night, will be doing surgery 04/07 with urology - Levodopa seems to help tremor and is stiffer / more shuffly without levodopa - Episode 01/19 overnight where speech seemed slurred and feet frozen, both legs weak, went to ER and admitted for testing, said possible TIA, had clinical research monitor - When he wakes up will sometimes see a shadow or other movement that is not there, never in the day - Memory is OK, sometimes has a hard time getting words out - Constipation has been good without needing Miralax much 7 12 5 Cd/ld 25/100 3 3 3 Propranolol 80 LA 1 Current Outpatient Medications Medication Sig Dispense Refill finasteride (PROSCAR) 5 mg tablet Take 1 tablet by mouth once daily. propranolol ER (INDERAL LA) 80 mg 24 hr capsule TAKE ONE CAPSULE BY MOUTH EVERY DAY 90 capsule 1 tamsulosin (FLOMAX) 0.4 mg Take 2 capsules by mouth daily at bedtime. 180 capsule 1 clopidogrel (PLAVIX) 75 mg tablet Take 1 tablet by mouth once daily. 90 tablet 1 traZODone (DESYREL) 50 mg tablet TAKE 1 TABLET BY MOUTH AT BEDTIME 90 tablet 1 atorvastatin (LIPITOR) 80 mg tablet Take 1 tablet by mouth once daily. 90 tablet 1 levothyroxine (SYNTHROID) 25 mcg tablet Take 1 tablet by mouth once daily. Take on empty stomach. For thyroid. 90 tablet 1 carbidopa-levodopa (SINEMET 25-100) 25-100 mg per tablet Take 3 tablets by mouth three times a day. 810 tablet 3 ezetimibe (ZETIA) 10 mg tablet Take 1 tablet by mouth once daily. 90 tablet 3 nitroglycerin sublingual (NITROQUICK) 0.4 mg SL tablet [...] every 8 hours as needed for Pain. omega-3 fatty acids/vitamin e(FISH OIL 1,000 MG CAP) one tablet twice daily 0 cyanocobalamin, vitamin B-12, 500 mcg ODT Take 2 tablets by mouth once daily. (Patient not taking: Reported on 03/24/2025) Cholecalciferol, Vitamin D3, 2,000 unit cap Take 2 tablets by mouth once daily. (Patient not taking: Reported on 03/24/2025) 0 multivitamins w-minerals/lut(CENTRUM SILVER TAB) One tablet daily (Patient not taking: Reported on 03/24/2025) 0 No current facility-administered medications for this visit. REVIEW OF SYSTEMS His ROS was positive for that mentioned in the HPI. Otherwise a 10-point ROS was completed and was negative. Objective OBJECTIVE 03/24/25 1541 BP: 136/84 BP Site: Right Arm BP Position: Sitting BP Cuff Size: Large Adult Pulse: (!) 57 SpO2: 94% Weight: 87.6 kg (193 lb 3.7 oz) Height: 166.4 cm (5' 5.5) General: General Appearance: Well appearing, alert, in no acute distress, well-hydrated, well nourished. Head: Normocephalic Neurologic Exam: Mental Status: He is alert. Reg 3/3 TVG, 03/23/25, wed, age 84, WORLD -> DLORW, 1 error with sentence repetition, 3/3. Affect is appropriate. Cranial Nerves: Extraocular movements show full and smooth pursuits. No nystagmus. Facial activation is symmetric. Hearing is intact to conversation. There is mild-mod hypomimia. There is mod hypophonia. There is no dysarthria. Tongue is midline. Palate elevates symmetrically. Shoulder shrug is reduced on left. Last dose levodopa 300 mg @ 1215, exam 1605 (more content not included)... [facility]08-20-2025 NoteHNO ID: [id number] Author: MAYRA VALENCIA MA Service: ? Author Type: Territory Account Executive Type: Progress Notes Filed: 03/24/2025 14:13 Note Text: Scan on 03/24/2025 9:04 AM by Provider, External, PAArielleC: Procedure visit report, [facility]Cl[facility] History of Present illness Narrative* Mayra Valencia MA - 03/24/2025 2:12 PM EDT Scan on 03/24/2025 9:04 AM by Provider, LAUREN Jones: Procedure visit report, Cysto documented in this encounterSt. [facility] Telephone encounter Note * Telephone Encounter - Michelle Herring RN - 03/24/2025 9:55 AM EDT James from [facility] calls and is requesting lab results, last cardiology office visit note, and EKG results to be faxed to [phone]. Information faxed as requested. Michelle Herring RN [facility]08-20-2025 Miscellaneous Notes* Telephone Encounter - Michelle Herring RN - 03/24/2025 9:55 AM EDT James from [facility] calls and is requesting lab results, last cardiology office visit note, and EKG results to be faxed to [phone]. Information faxed as requested. Michelle Herring RN documented in this encounterSt. [facility] Hospital07-25-2025 Telephone encounter Note * Telephone Encounter - Stacy Varghese RN - 02/26/2025 2:59 PM EDT Patient had urgent care visit this morning with Leti GILLand is calling to ask when the Paxlovid prescription is going to be sent to [facility]. He reports extremely runny nose and feels warm to touch but thermometer isn't working and is reading 94.3. Noted orders for Covid Testing. Don't seen any results back. Patient reports he was told he would have them back by now. Let him know I would pass the message along. Stacy Varghese RN [facility]07-25-2025 Miscellaneous Notes* Telephone Encounter - Stacy Varghese RN - 02/26/2025 2:59 PM EDT Patient had urgent care visit this morning with Leti GILLand is calling to ask when the Paxlovid prescription is going to be sent to [facility]. He reports extremely runny nose and feels warm to touch but thermometer isn't working and is reading 94.3. Noted orders for Covid Testing. Don't seen any results back. Patient reports he was told he would have them back by now. Let him know I would pass the message along. Stacy Varghese RN documented in this encounterSt. [facility] Hospital07-25-2025 Note* Addendum Note - Ella Valdovinos PA-C - 02/26/2025 10:30 AM EDTAddended by: ELLA SANCHEZ on: 02/26/2025 10:30 AM Modules accepted: Orders [facility]07-25-2025 Miscellaneous Notes* Addendum Note - Ella [...] nostril once daily. Rinse mouth after use. Kreen Sykes LPN February 26, 2025 8:38 AM documented in this encounterSt. Vincent Hospital07-25-2025 Telephone encounter Note * Telephone Encounter - Ella Valdovinos PA-C - 02/26/2025 10:29 AM EDT Patient requested flomax refill The following approved medication requests have been transmitted electronically. Requested Prescriptions Signed Prescriptions Disp Refills tamsulosin (FLOMAX) 0.4 mg 180 capsule 1 Sig: Take 2 capsules by mouth daily at bedtime. Authorizing Provider: ELLA VALDOVINOS PA-C [facility]07-25-2025 [id number] (AGENT OF COVID-19) RNA: Detected INFLUENZA A RNA: Not detected INFLUENZA B RNA: Not detected RESPIRATORY SYNCYTIAL VIRUS (RSV) RNA: Not detectedParkwood HospitalComment on above:Performed By: #### [id number] ####[facility] LABCLIA [id number] [place] [id number] [place] [id number] Telephone encounter Note* Telephone Encounter - Keren [...] Sykes LPN February 26, 2025 8:[address] [facility]07-25-2025 NoteHNO ID: [id number] Author: LETI RODRIGUEZ PA-C Service: ? Author Type: Physician Master Certified Rv Technician Type: Progress Notes Filed: 02/26/2025 08:37 Note Text: [facility] Subjective Soniya Cooley is [...] low Diagnostic procedures: low Management options: low [facility] History of Present illness Narrative* Leti Rodriguez PA-C - 02/26/2025 8:33 AM EDT [facility] Co[facility] is a 84 year old male. [...] options: je Rodriguez PA-C documented in this encounterSt. Vincent Hospital07-24-2025 Telephone encounter Note * Telephone Encounter - Zoe Madrid RN - 02/25/2025 2:38 PM EDT Patient scheduled to see Dr. Mackey 03/01/25. Zoe Madrid RN [facility]07-24-2025 Miscellaneous Notes* Telephone Encounter - Zoe [...] halter monitor he wore after being in [facility] for TIA is showingruns of supraventricular tachycardia and that there were two short runs of V-tach. I want him to continue the plavix but would also like for him to see his hand spring repairer helper Dr. Mackey for further eval. (I included Dr. Mackey to see if he can help facilitate an appt.) The 14 day halter was done through [facility] and will be scanned into chart. documented in this encounterSt. Vincent Hospital07-23-2025 Telephone encounter Note * Telephone Encounter - Kenney Gonzalez MD - 02/24/2025 11:00 AM EDT Reviewed. Will forward to PCP as FYI. [facility]07-23-2025 Telephone encounter Note* Telephone Encounter - [...] injections at appt tomorrow. Stacy Varghese RN [facility]07-23-2025 Telephone encounter Note* Telephone Encounter - Monalisa Arreola RN - 02/24/2025 9:17 AM EDT Left vm for pt to return call to triage nurse, for provider message. 's mailbox is full [facility]07-23-2025 NoteHNO ID: [id number] Author: KEREN SYKES LPN Service: ? Author Type: LICENSED NURSE Type: Progress Notes Filed: 02/24/2025 08:02 Note Text: Scan on 02/23/2025 5:42 PM by Karen Escobar PA-C: Chemistry Scan on 02/24/2025 7:21 AM by Karen Escobar PA-C: Consultation - [facility]07-23-20[facility] History of Present illness Narrative* Keren Sykes LPN - 02/24/2025 7:19 AM EDT Scan on 02/23/2025 5:42 PM by ProviderKaren PA-C: Chemistry Scan on 02/24/2025 7:21 AM by Karen Escobar PA-C: Consultation - documented in this encounterSt. Vincent Hospital07-22-2025 Telephone encounter Note * Telephone Encounter - Kenney Gonzalez MD - 02/23/2025 2:52 PM EDT With their recent TIA I would be hesitant to stop their antiplatelet medications for at least 3 months. Are they able to do the injections while he is still taking Plavix? [facility]-20[facility] Telephone encounter Note* Telephone Encounter - [...] Aranda RN February 22, 2025 12:[address] [facility]07-18-2025 Telephone encounter Note* Telephone Encounter - Oniel Francis MD - 02/19/2025 5:40 PM EDT Let patient know that the halter monitor he wore after being in [facility] for TIA is showingruns of supraventricular tachycardia and that there were two short runs of V-tach. I want him to continue the plavix but would also like for him to see his hand spring repairer helper Dr. Mackey for further eval. (I included Dr. Mackey to see if he can help facilitate an appt.) The 14 day halter was done through [facility] and will be scanned into chart. [facility]07-14-2025 Telephone encounter Note* Telephone Encounter - Melvina Cruz RN - 02/15/2025 10:46 AM EDT Last OV 09/11/2024 START 09/11/2024 F/U OV 03/24/2025 Route to TW for review. LIZETT Hackett, RN, CPN [facility]07-14-2025 Miscellaneous Notes* Telephone Encounter - Melvina Cruz RN - 02/15/2025 10:46 AM EDT Last OV 09/11/2024 START 09/11/2024 F/U OV 03/24/2025 Route to TW for review. Melvina Cruz, BSN, RN, CPN documented in this encounterSt. [facility] Hospital07-10-2025 Telephone encounter Note * Telephone Encounter - Heather Keenan MA - 02/11/2025 10:07 AM EDT Pt notified and voiced understanding. Heather Keenan MA [facility]07-10-2025 Miscellaneous Notes* Telephone Encounter - Heather [...] and UA were ok. documented in this encounterSt. [facility] Hospital07-10-2025 Telephone encounter Note * Telephone Encounter - Heather Keenan MA - 02/11/2025 10:05 AM EDT ----- Message from Oniel Francis MD sent at 02/10/2025 9:11 PM EDT ----- ----- Message ----- From: Lab, Background User Sent: 02/08/2025 5:27 PM EDT To: Ella Valdovinos PA-C [facility]07-09-2025 Telephone encounter Note* Telephone Encounter - [...] his other labs and UA were ok. [facility]07-07-2025 Instructions* Patient Instructions* Oniel Francis MD [...] sent a refill to your mail-order pharmacy, [facility]. - Continue taking baby aspirin daily, as [...] upcoming appointment with your eye doctor in [place] to address this. It is possible that [...] - Skin Checks: - Continue seeing your bsw annually for skin checks. You recently had lesions removed. Follow-Up: - See your neurologist, Dr. Saunders, as soon as possible for clearance to drive and further evaluation of your TIA. - Attend your upcoming appointment with Dr. Fall (urologist) in the next day or two to address frequent urination. - Follow up with your eye doctor in [place] regarding your vision concerns. - Discuss your sleep issues with Dr. Damon during your March appointment. If you have any new or worsening symptoms, please contact our office. documented in this encounterSt. [facility]07-07-2025 History of Present illness Narrative* Oniel [...] to remember the following three words: Banana, [place] and Chair Visuospatial/Executive Functioning: Clock drawin/2 (Normal [...] and those as below. Patient recently in [facility] for TIA. Placed on plavix. Ordered event [...] He does not have a lift chair. 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 Anne had cataract surgery over a year ago and is experiencing vision changes, noting that the results were not as good as expected. He has an upcoming appointment with an photographic supervisor in [place]. He reports stable dyspnea, but denies hemoptysis, chest pain, or palpitations. Anne had a TIA with symptoms of general weakness adn slurred speach, [facility] the hospital did not identify a cause. He was advised not to drive until seen by his neurologist, but he drove to today's appointment. He denies nausea, emesis, diarrhea, heartburn, hematuria, or hematochezia. Anne reports nocturia every hour, which disrupts his sleep, and does not find Flomax helpful. He has an upcoming appointment with a urologist. Anne had a couple of skin lesions removed recently and sees a bsw annually for skin checks. He denies unexplained bruising, changes in heat or cold tolerance, increased thirst, syncope, or seizures. He experiences stable tremors due to Parkinson's disease. Anne is taking multiple medications, including atorvastatin, vitamin [...] Beta blockers: Yes Statins: Lipitor 40mg started 30, LFTs normal-continueon dc. Elevated fasting blood sugar [...] 02/08/202501/2025 Living will on file 12/12/2021 DPA: Matthew () Meniscus tear 12/27/2015 Right, minimal. Seen [...] Dash Skin cancer screening 02/08/2025 Seeing Dario Thompsonek Sleep disorder 07/26/2015 Synovial cyst of right [...] Pt reports he was told by the hand spring repairer helper that they almost lost him due to [...] (FLONASE) 50 mcg/actuation nasal spray Use 1 [place] in each nostril once daily. Rinse mouth [...] cataract surgery. Has appt with provider in [place] in the near future., NECK: Negative for [...] discharge. Scrotum normal to palpation. No hernia.. [facility] Maintenance List Medicare Advantage Annual Wellness Visit [...] and plavix. 7. 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(I25.10) Stable on current [...] neurologist. - Continue Plavix; sent refill to [facility] pharmacy. 10. Parkinson's disease with dyskinesia [...] which included preparing to see the patient, onih-nk-gxgb patient care, completing clinical documentation, performing a medically appropriate examination, counseling and educating the patient/family/caregiver and ordering medications, tests, or procedures. Recording using [employer] software for draft documentation of the visit was discussed with the patient/authorized hvac sales representative; all questions welcomed and answered. Patient/authorized hvac sales representative agreed to proceed SENSITIVE EXAMINATION CONSENT: The sensitive examination was discussed with the Patient or Patient's Authorized Service Person. Asapplicable, any other physician, advance practice provider, medical student, or other health professional student that will be observing or involved in the sensitive examination for educational or training purposes was discussed with the Patient or Authorized Service Person. The Patient or Authorized Service Person has agreed to proceed with the sensitive examination. documented in this encounterSt. [facility]07-07-2025 NoteHNO ID: [id number] Author: ONIEL FRANCIS MD Service: ? Author [...] to remember the following three words: Banana, [place] and Chair Visuospatial/Executive Functioning: Clock drawin/2 (Normal [...] and those as below. Patient recently in [facility] for TIA. Placed on plavix. Ordered event [...] He does not have a lift chair. 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 Anne had cataract surgery over a year ago and is experiencing vision changes, noting that the results were not as good as expected. He has an upcoming appointment with an photographic supervisor in [place]. He reports stable dyspnea, but denies hemoptysis, chest pain, or palpitations. Anne had a TIA with symptoms of general weakness adn slurred speach, which had fully resolved by the time he presented to the ER. Extensive testing at the hospital did not identify a cause. He was advised not to drive until seen by his neurologist, but he drove to today's appointment. He denies nausea, emesis, diarrhea, heartburn, hematuria, or hematochezia. Anne reports nocturia every hour, which disrupts his sleep, and does not find Flomax helpful. He has an upcoming appointment with a urologist. Anne had a couple of skin lesions removed recently and sees a bsw annually for skin checks. He denies unexplained bruising, changes in heat or cold tolerance, increased thirst, syncope, or seizures. He experiences stable tremors due to Parkinson's disease. Anne is taking multiple medications, including atorvastatin, vitamin [...] directive discussed with pa (more content not included)...[facility]06-17-2025 Discharge summary [facility] Medical Records Department [address] [place] [id number] Discharge Summary 01/19/25 1812 MR#: [id number] Acct: [id number] Name: SONIYA COOLEY Rep #:[id number] : 1940 84 From: Leti Lu DO PCP: Dr. Oniel Francis MD Status:ADM DARI Location: [place] [address] Providers Date of Admission: 01/19/25 Date of [...] #5 hyperlipidemia Medications at Discharge Home Medications hhcursyo-ddi-gavoe acid 0.4 mg-lycopene 300 mcg-lutein 250 mcg [...] was seen in the emergency room at [facility] after being brought in by his due [...] symptoms [facility]. Patient [facility] a CT of [...] (Auto) 36.7 L, Lymph % (Auto) 48.3 H,[place] % (Auto) 10.0, Eos % (Auto) 4.3, [...] Clarity Clear, Urine pH 6.0, Ur Specific [place] 1.015, Urine Protein Negative, Urine Glucose (UA) [...] evidence for acute brain abnormality. Reading Location: [place] [address] Head/Neck CTA 01/19/25 04:03 IMPRESSION: Atherosclerosis without high-grade stenosis. Reading Location: [place] [address] Chest X-Ray 01/19/25 04:45 IMPRESSION: Mild bilateral basilar atelectatic pulmonary changes. Reading Location: [place] [address] Brain MRI 01/19/25 09:20 IMPRESSION: Sinus disease is visible in the floor of the right maxillary sinus. There is fluid signal in a portion of the right mastoid air cells, with mastoiditis. No acute intracranial abnormality is identified. Reading [facility] Echocardiogram 01/19/25 13:33 Interpretation Summary The left [...] 25 mcg tablet 25 mcg PO DAILY pjgfjtwj-dek-QK-lycopen-lutein 1 EACH tablet 1 ea PO DAILY [...] Recorder Preventi (Urgent) Timeframe: 1 Day Facility: [facility] - Location: Cardiovascular Services Ordered By: Dr. Leti Lu Referrals / Follow Up: Oniel Francis MD [Primary Care Provider] - See Referral Note (At next appointment time) Disposition Disposition (needs filled in before D/C Order can be placed): Home, Self Care Charges/Coding Visit Charges Inpatient E&M: 32851 Disch Hosp >30min 01/19/251816 Cosigner Signature (if applicable): CC: Dr. Oniel Francis MD; Dr. Leti Lu, DO~ Signed [facility]06-17-2025 Discharge summary [facility] Medical Records Department [address] [place] [address] Instructions for Home/Discharge Instructions 01/19/25 180 MR#: [id number] Acct: [id number] Name: SONIYA COOLEY Rep #:[id number] : 1940 84 From: Leti Lu [...] 25 mcg tablet 25 mcg PO DAILY kvwzazbb-lib-GM-lycopen-lutein 1 EACH tablet 1 ea PO DAILY Patient Comments: supplement cyanocobalamin (vitamin B-12) 500 mcg tablet, sublingual 1,000 mcg PO DAILY Patient Comments: supplement aspirin 81 mg tablet,chewable 81 mg PO DAILY Patient Comments: [facility] cholecalciferol (vitamin D3) 25 mcg (1,000 [...] Recorder Preventi (Urgent) Timeframe: 1 Day Facility: [facility] - Location: Cardiovascular Services Ordered By: Dr. [...] Xenia Fournier DO; Tia Mcleod MD ~ [facility]06-17-2025 [facility] Medical Records Department [address] [place] [address] Discharge Summary 01/19/251811 MR#: [id number] Acct: [id number] Name: SONIYA COOLEY Rep #: [id number] : 1940 84 From: Leti Lu DO PCP: Dr. Oniel Francis MD Status:DIS DARI Location: U [id number] Providers Date of Admission: 01/19/25 Date of [...] #5 hyperlipidemia Medications at Discharge Home Medications pfxnlinq-oqa-nvmny acid 0.4 mg-lycopene 300 mcg-lutein 250 mcg [...] was seen in the emergency room at [facility] after being brought in by his due [...] grossly intact, no focal (more content not included)...[facility] 01-19-2025 Consult note Author Sulaiman Carrasquillo [facility] Note Date/Time January 19, 2025 1:29 pm [facility] Medical Records Department [address] [place] [address] Consultation - Neurology 01/19/25 1324 MR#: [id number] Acct: [id number] Name: SONIYA COOLEY Rep #:[id number] : 1940 84 From: Sulaiman Carrasquillo MD PCP: Dr. Oniel Francis MD Status:ADM DARI Location: [place] [address] Assessment and Plan: Stroke Assessment/Plan Mr Cooley presents with acute onset dysarthria and bilateral lower extremity weakness concerning for a Transient Ischemic Attack (TIA). While he did miss a dose of sinemet that evening, he has never had such pronounced dysarthria with previous missed doses so less likely symptoms d/t PD. Obtain lipid panel and hemoglobin A1c. Recommend TTE and 30 day clinical research monitor after discharge. PT/OT eval. Load with clopidogrel [...] before with prior missed doses. MRI/CTA neg. 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 angina pectoris Essential hypertension Contusion of finger without damage to nail Laceration of finger of left hand without foreign body without damage to nail Hemorrhoids Shortness of breath Neck pain on left side Tingling and numbness left fingers Home Medications ?Medication ?Instructions ?Recorded ?Last Taken ?Type wypathka-vbb-ramuu acid 0.4 1 ea PO DAILY 05/28/16 [...] (Auto) 36.7 L, Lymph % (Auto) 48.3 H,[place] % (Auto) 10.0, Eos % (Auto) 4.3, [...] Clarity Clear, Urine pH 6.0, Ur Specific [place] 1.015, Urine Protein Negative, Urine Glucose (UA) [...] evidence for acute brain abnormality. Reading Location: [place] [address] Head/Neck CTA 01/19/25 04:03 IMPRESSION: Atherosclerosis without high-grade stenosis. Reading Location: [facility] Chest X-Ray 01/19/25 04:45 IMPRESSION: Mild bilateral basilar atelectatic pulmonary changes. Reading Location: [facility] Brain MRI 01/19/25 09:20 IMPRESSION: Sinus disease is visible in the floor of the right maxillary sinus. There is fluid signal in a portion of the right mastoid air cells, with mastoiditis. No acute intracranial abnormality is identified. Reading Location: [facility] Active Medications Active Medications Active Medications: Current [...] mls @ 15 mls/hr 01/19/25 07:44 IV .[id number] PRN Saline Flush Sodium Chloride 250 mls @ 15 mls/hr 01/19/25 07:44 IV .[id number] PRN Additional IVPB Infusion Levothyroxine Sodium 25 [...] Tamsulosin Hcl 0.4 Mg Capsule PO QHS [facility] NIHSS NIHSS Nursing Documentation NIHSS Nursing Documentation: NIHSS: Ischemic Stroke/TIA Start: 01/19/25 07:29 Text: For PCU Patients: NIH and Neuro Check every 4 Status: Active hours, PRN and with change in RN caregiver. Freq: [id number] Protocol: Activity Type Activity Date Activity User [...] applicable): CC: Dr. Oniel Francis MD~ Signed [facility] Work Phone: 1(341) 316-175006-17-2025 Hospital Discharge instructions Additional Instructions Follow-up as scheduled with your neurologist Date of Discharge: [facility]/25[facility] Work Phone: 1(604) 656-693506-17-2025 Consult note [facility] Medical Records Department [address] [place] [address] Consultation - Neurology 01/19/25 1324 MR#: [id number] Acct: [id number] Name: SONIYA COOLEY Rep #:[id number] : 1940 84 From: Sulaiman Carrasquillo MD PCP: Dr. Oniel Francis MD Status:ADM DARI Location: [place] [address] Assessment and Plan: Stroke Assessment/Plan Mr Cooley presents with acute onset dysarthria and bilateral lower extremity weakness concerning for a Transient Ischemic Attack (TIA). While he did miss a dose of sinemet that evening, he has never had such pronounced dysarthria with previous missed doses so less likely symptoms d/t PD. Obtain lipid panel and hemoglobin A1c. Recommend TTE and 30 day clinical research monitor after discharge. PT/OT eval.Load with clopidogrel 300mg [...] before with prior missed doses. MRI/CTA neg. 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 angina pectoris Essential hypertension Contusion of finger without damage to nail Laceration of finger of left hand without foreign body without damage to nail Hemorrhoids Shortness of breath Neck pain on left side Tingling and numbness left fingers Home Medications ?Medication ?Instructions ?Recorded ?Last Taken ?Type hagobrxs-igt-nlkza acid 0.4 1 ea PO DAILY 05/28/16 [...] (Auto) 36.7 L, Lymph % (Auto) 48.3 H,[place] % (Auto) 10.0, Eos % (Auto) 4.3, [...] Clarity Clear, Urine pH 6.0, Ur Specific [place] 1.015, Urine Protein Negative, Urine Glucose (UA) [...] evidence for acute brain abnormality. Reading Location: [place] [address] Head/Neck CTA 01/19/25 04:03 IMPRESSION: Atherosclerosis without high-grade stenosis. Reading Location: [place] [address] Chest X-Ray 01/19/25 04:45 IMPRESSION: Mild bilateral basilar atelectatic pulmonary changes. Reading Location: [place] [address] Brain MRI 01/19/25 09:20 IMPRESSION: Sinus disease is visible in the floor of the right maxillary sinus. There is fluid signal in a portion of the right mastoid air cells, with mastoiditis. No acute intracranial abnormality is identified. Reading Location: [facility] Active Medications Active Medications Active Medications: Current [...] mls @ 15 mls/hr 01/19/25 07:44 IV .[id number] PRN Saline Flush Sodium Chloride 250 mls @ 15 mls/hr 01/19/25 07:44 IV .[id number] PRN Additional IVPB Infusion Levothyroxine Sodium 25 mcg 01/20/25 06:00 Levothyroxine 25 Mcg Tablet PO DAILY@0600 [facility] Propranolol HCl 80 mg 01/19/25 10:00 01/19/25 10:37 Propranolol La 80 Mg Capsule PO 80 mg Q24 PEPITO Administration Protocol Sodium Chloride 10 - 40 ml 01/19/25 07:44 0.9% Saline Lock 10 Ml Syringe IV UD PRN SALINE FLUSH Tamsulosin HCl 0.8 mg 01/19/25 22:00 Tamsulosin Hcl 0.4 Mg Capsule PO QHS [facility] NIHSS NIHSS Nursing Documentation NIHSS Nursing Documentation: NIHSS: Ischemic Stroke/TIA Start: 01/19/25 07:29 Text: For PCU Patients: NIH and Neuro Check every 4 Status: Active hours, PRN and with change in RN caregiver. Freq: [id number] Protocol: Activity Type Activity Date Activity User [...] applicable): CC: Dr. Oniel Francis MD~ Signed [facility]06-17-2025 Discharge summary Author [facility] Note Date/Time January 19, 2025 8:06 am [facility] Medical Records Department [address] [place] [address] Emergency Department Summary 01/19/25 MR#: [id number] Acct: [id number] Name: SONIYA OCOLEY Rep #:[id number] : 1940 84 From: Tate Mcdonough DO PCP: Dr. Oniel Francis MD Status:ADM DARI Location: [address] History of Present Illness Chief Complaint: [...] stroke he was brought in for evaluation. [facility] Medical History (Updated 01/19/25 @ 08:06 by [...] artery disease Atherosclerosis of coronary artery of [place] heart without angina pectoris Essential hypertension Contusion of finger without damage to nail Laceration of finger of left hand without foreign body without damage to nail Hemorrhoids Shortness of breath Neck pain on left side Tingling and numbness left fingers Home Medications ?Medication ?Instructions ?Recorded ?Last Taken ?Type axatemou-oxa-rijuh acid 0.4 1 ea PO DAILY 05/28/16 [...] and [facility]. As the [...] 36.7 L Lymph % (Auto) 48.3 H [place] % (Auto) 10.0 Eos % (Auto) 4.3 [...] Clarity Clear Urine pH 6.0 Ur Specific [place] 1.015 Urine Protein Negative Urine Glucose (UA) [...] evidence for acute brain abnormality. Reading Location: [place] [address] Head/Neck CTA 01/19/25 04:03 IMPRESSION: Atherosclerosis without high-grade stenosis. Reading Location[facility] Chest X-Ray 01/19/25 04:45 IMPRESSION: Mild bilateral basilar atelectatic pulmonary changes. Reading Location: [place] [address] Chest x-ray as interpreted by the emergency medicine physician reveals bibasilaratelectasis without acute infiltrate or pneumothorax Management Discussion w/another healthcare provider: Hospitalist and Steel Inspector Discharge Plan Dx/Rx/DC Orders Clinical Impression: Stroke-like symptoms, Essential hypertension, Hyperlipidemia, Parkinson's disease Disposition Disposition: Acute Care Hospital [facility] Discharge Date/Time: 01/19/25 07:02 What to do if you have Problems For any increased pain, shortness of breath, bleeding, nausea or vomiting, chestpain, or any unexpected problems, contact your Primary Care Provider. Call [facility] ([phone]) or report to the closest Emergency Room. Call 911 if necessary. 01/19/25 0806 <Electronically signed by Tate Mcdonough DO> Cosigner Signature (if applicable): CC: Dr. Oniel Francis MD ~ Signed [facility] Work Phone: 1(607) 865-720106-17-2025 Evaluation note* Diagnosis Onset Date Resolution Status Admit Date Parkinson's disease acute January 19, 2025 6:07am Stroke-like symptoms acute January 19, 2025 6:07am Essential hypertension chronic Ju ne 2024 6:07am H/O aortic valve replacement October, chroni c January 19, 2025 6:07am Hyperlipidemia chronic January 19, 2025 6:07am H/O coronary artery bypass surgery October, resolved January 19, 2025 6:07am [facility] Work Phone: 1([phone] 335-895606-17-2025 History and physical note Author Mik Kilgore [facility] Note Date/Time January 19, 2025 6:07 am [facility] Medical Records Department [address] [place] [address] History & Physical Exam 01/19/25 0558 MR#: [id number] Acct: [id number] Name: SONIYA COOLEY Rep #:[id number] : 1940 84 From: Mik Kilgore [...] or chills and/or nausea vomiting or diarrhea. [facility] Medical History (Updated 01/19/25 @ 05:49 [...] artery disease Atherosclerosis of coronary artery of [place] heart without angina pectoris Essential hypertension Contusion of finger without damage to nail Laceration of finger of left hand without foreign body without damage to nail Hemorrhoids Shortness of breath Neck pain on left side Tingling and numbness left fingers Home Medications ?Medication ?Instructions ?Recorded ?Last Taken ?Type wbbxcqsz-aee-hdgqk acid 0.4 1 ea PO DAILY 05/28/16 [...] (Auto) 36.7 L, Lymph % (Auto) 48.3 H,[place] % (Auto) 10.0, Eos % (Auto) 4.3, [...] Clarity Clear, Urine pH 6.0, Ur Specific [place] 1.015, Urine Protein Negative, Urine Glucose (UA) [...] evidence for acute brain abnormality. Reading Location: [facility] [address] Head/Neck CTA 01/19/25 04:03 IMPRESSION: Atherosclerosis without high-grade stenosis. Reading Location: [place] [address] Chest X-Ray 01/19/25 04:45 IMPRESSION: Mild bilateral basilar atelectatic pulmonary changes. Reading Location: [place] [address] Assessment & Plan Assessment/Plan (1) H/O coronary [...] weight heparin Charges/Coding Visit Charges OBSV E&M: 78322 Observ/hosp same date L2 01/19/25 0607 <Electronically signed by Mik Kilgore MD> Cosigner Signature (if applicable): CC: Dr. Oniel Francis MD; Dr. Mik Kilgore MD~ Signed [facility] Work Phone: 1(597) 245-543206-17-2025 Discharge summary [facility] Medical Records Department [address] [place] [address] Emergency Department Summary 01/19/25 MR#: [id number] Acct: [id number] Name: SONIYA COOLEY Rep #:[id number] : 1940 84 From: Tate Mcdonough DO PCP: Dr. Oniel Francis MD Status:ADM DARI Location: [address] History of Present Illness Chief Complaint: [...] stroke he was brought in for evaluation. [facility] Medical History (Updated 01/19/25 @ 08:06 by [...] artery disease Atherosclerosis of coronary artery of [place] heart without angina pectoris Essential hypertension Contusion of finger without damage to nail Laceration of finger of left hand without foreign body without damage to nail Hemorrhoids Shortness of breath Neck pain on left side Tingling and numbness left fingers Home Medications ?Medication ?Instructions ?Recorded ?Last Taken ?Type rioafxgu-ezn-tldur acid 0.4 1 ea PO DAILY 05/28/16 [...] and by the [facility]. As the [...] 36.7 L Lymph % (Auto) 48.3 H [place] % (Auto) 10.0 Eos % (Auto) 4.3 [...] Clarity Clear Urine pH 6.0 Ur Specific [place] 1.015 Urine Protein Negative Urine Glucose (UA) [...] evidence for acute brain abnormality. Reading Location: [place] [address] Head/Neck CTA 01/19/25 04:03 IMPRESSION: Atherosclerosis without high-grade stenosis. Reading Location: [place] [address] Chest X-Ray 01/19/25 04:45 IMPRESSION: Mild bilateral basilar atelectatic pulmonary changes. Reading Location: [place] [address] Chest x-ray as interpreted by the emergency medicine physician reveals bibasilaratelectasis withoutacute infiltrate or pneumothorax Management Discussion w/another healthcare provider: Hospitalist and Steel Inspector Discharge Plan Dx/Rx/DC Orders Clinical Impression: Stroke-like symptoms, Essential hypertension, Hyperlipidemia, Parkinson's disease Disposition Disposition: Acute Care Hospital [facility] Discharge Date/Time: 01/19/25 07:02 What to do if you have Problems For any increased pain, shortness of breath, bleeding, nausea or vomiting, chestpain, or any unexpected problems, contact your Primary Care Provider. Call [facility] ([phone]) or report tothe closest Emergency Room. Call 911 if necessary. 01/19/25 0806 Cosigner Signature (if applicable): CC: Dr. Oniel Francis MD ~ Signed [facility]06-17-2025 History and physical note [facility] Medical Records Department [address] [place] [address] History & Physical Exam 01/19/25 0558 MR#: [id number] Acct: [id number] Name: SONIYA COOLEY Rep #:[id number] : 1940 84 From: Mik Kilgroe MD PCP: Dr. Oniel Francis MD Status:REG [...] or chills and/or nausea vomiting or diarrhea. [facility] Medical History (Updated 01/19/25 @ 05:49 [...] artery disease Atherosclerosis of coronary artery of [place] heart without angina pectoris Essential hypertension Contusion of finger without damage to nail Laceration of finger of left hand without foreign body without damage to nail Hemorrhoids Shortness of breath Neck pain on left side Tingling and numbness left fingers Home Medications ?Medication ?Instructions ?Recorded ?Last Taken ?Type bffopwtv-dkp-mepoy acid 0.4 1 ea PO DAILY 05/28/16 [...] (Auto) 36.7 L, Lymph % (Auto) 48.3 H,[place] % (Auto) 10.0, Eos % (Auto) 4.3, [...] Clarity Clear, Urine pH 6.0, Ur Specific [place] 1.015, Urine Protein Negative, Urine Glucose (UA) [...] evidence for acute brain abnormality. Reading Location: [place] [address] Head/Neck CTA 01/19/25 04:03 IMPRESSION: Atherosclerosis without high-grade stenosis. Reading Location: [place] [address] Chest X-Ray 01/19/25 04:45 IMPRESSION: Mild bilateral basilar atelectatic pulmonary changes. Reading Location: [place] [address] Assessment & Plan Assessment/Plan (1) H/O coronary [...] weight heparin Charges/Coding Visit Charges OBSV E&M: 40792 Observ/hosp same date L2 01/19/25 0607 Cosigner Signature (if applicable): CC: Dr. Oniel Francis MD; Dr. Mik Kilgore MD~ Signed [facility]06-17-2025 [facility] Medical Records Department [address] [place] [address] History Physical Exam 01/19/25 0558 MR#: [id number] Acct: [id number] Name: SONIYA COOLEY Rep #: [id number] : 1940 84 From: Mik Kilgore MD [...] or chills and/or nausea vomiting or diarrhea. [facility] Medical History (Updated 01/19/25 @ 05:49 [...] artery disease Atherosclerosis of coronary artery of [place] heart without angina pectoris Essential hypertension Contusion of finger without damage to nail Laceration of finger of left hand without foreign body without damage to nail Hemorrhoids Shortness of breath Neck pain on left side Tingling and numbness left fingers Home Medications ???Medication ???Instructions ???Recorded ???Last Taken ???Type thxkvrvr-zgc-zplvo acid 0.4 1 ea PO DAILY 05/28/16 [...] of cholecystectomy History of tonsillectomy Social History ...[facility]06-17-2025 Radiology Diagnostic study note [facility] Imaging Services [address] [place], [place] [id number] STROKE CTA Head AND Neck W/Con MR#: [id number] Acct: [id number] Name: SONIYA COOLEY Rep #: [id number] : 1940 M 84 From: Olvin Watters MD PCP: Dr. Oniel Francis MD Status: REG ER Study:STROKE CTA Head AND Neck W/Con Date of Exam: 01/19/25 Exam# [id number] Ordering Dr: Marjan Mcdonough DO PROCEDURE: STROKE [...] There is no demonstrated aneurysm of the [place]. There is no major vessel [...] IMPRESSION: Atherosclerosis without high-grade stenosis. Reading Location: [place] [address] CC: Dr. Oniel Francis MD; Tate Mcdonough DO ~ Cost Analyst: Signed [facility]06-17-2025 Radiology Diagnostic study note [facility] Imaging Services [address] [place] [address] Chest 1 View MR#: [id number] Acct: [id number] Name: SONIYA COOLEY Rep #: [id number] : 1940 M 84 From: Olvin Watters MD PCP: Dr. Oniel Francis MD Status: [facility] ER Study:Chest 1 View Date of Exam: 5 Exam# [id number] Ordering Dr: Marjan Mcdonough DO PROCEDURE: CHEST [...] bilateral basilar atelectatic pulmonary changes. Reading Location: [place] [address] CC: Dr. Oniel Francis MD; Tate Mcdonough DO ~ Cost Analyst: Signed [facility]06-17-2025 Radiology Diagnostic study note [facility] Imaging Services [address] [place] [address] STROKE Brain/Head without Cont MR#: [id number] Acct: [id number] Name: SONIYA COOLEY Rep #: [id number] : 1940 M 84 From: Olvin Watters MD PCP: Dr. Oniel Francis MD Status: REG ER Study:STROKE Brain/Head without Cont Date of Exam: 01/19/25 Exam# [id number] Ordering Dr: Marjan Mcdonough DO PROCEDURE: STROKE [...] evidence for acute brain abnormality. Reading Location[facility] CC: Dr. Oniel Francis MD; Tate Mcdonough DO ~ Cost Analyst: Signed [facility]04-30-2025 NoteHNO ID: [id number] Author: PRUDENCIO BARLOW MA Service: ? Author Type: Territory Account Executive Type: Progress Notes Filed: 12/02/2024 08:06 Note Text: Scan on 11/20/2024 4:11 PM by Provider, External, PA-C: Consultation - Anesthesia/Pain Prudencio Barlow [facility]04-30-2025 History of Present illness Narrative* Prudencio Barlow MA - 12/02/2024 8:05 AM EDT Scan on 11/20/2024 4:11 PM by Provider, LAUREN Jones: Consultation - Anesthesia/Pain Prudencio Barlow MA [facility] Tele[facility] encounter Note * Telephone Encounter - Matthew Heredia - 11/02/2024 1:56 PM EDT Prescription [...] Take 1 tablet by mouth once daily. Matthew Heredia November 02, 2024 1:[address] [facility] Miscellaneous Notes* Telephone Encounter - Matthew Heredia - 11/02/2024 1:56 PM EDT Prescription [...] Take 1 tablet by mouth once daily. Matthew Heredia November 02, 2024 1:57 PM [facility] Telephone encounter Note * Telephone Encounter - Moni Encarnacion MA - 09/23/2024 1:38 PM EST Called and spoke with patient. He expressed understanding. [facility] Miscellaneous Notes* Telephone Encounter - Moni Encarnacion MA - 09/23/2024 1:38 PM EST Called and spoke with patient. He expressed understanding. * Telephone Encounter - Precious Caballero RN - 09/21/2024 12:12 PM EST Called patient at [phone]. Left message on voicemail for patient to return call. * Telephone Encounter - Moni Encarnacion MA - 09/18/2024 2:06 PM EST Images from the original note were not included. Abby Pate MD [facility] Can you let patient know his hand spring repairer helper was OK with me switching metoprolol to propranolol, so I sent in for 80 mg propranolol once a day - he can just change one day to the next from metoprolol tothis new propanolol dose. Depending on response we could increase propranolol in the future. Thanks [facility] Telephone encounter Note * Telephone Encounter - Precious Caballero, NORA - 09/21/2024 12:12 PM EST Called patient at [phone]. Left message on voicemail for patient to return call. [facility] Telephone encounter Note* Telephone Encounter - Moni Encarnacion MA - 09/18/2024 2:06 PM EST Images from the original note were not included. Abby Pate MD [facility] Can you let patient know his hand spring repairer helper was OK with me switching metoprolol to propranolol, so I sent in for 80 mg propranolol once a day - he can just change one day to the next from metoprolol tothis new propanolol dose. Depending on response we could increase propranolol in the future. Thanks [facility] Telephone encounter Note* Telephone Encounter - Hemalatha Oneil LPN - 09/18/2024 2:00 PM EST Message with results sent to patient in [employer] message. Hemalatha Oneil LPN [facility]02-14-2025 Miscellaneous Notes* Telephone Encounter - Hemalatha Oneil LPN - 09/18/2024 2:00 PM EST Message with results sent to patient in Mus[employer] S[employer] message. Hemalatha Oneil LPN * Telephone Encounter - Hemalatha Oneil LPN - 09/18/2024 1:59 PM EST Images from the original note were not included. Marj Mackey MD routed this conversation to [facility]3] Marj Mackey MD to Anne Cooley 09/18/24 1:54 PM Hey Les Your echocardiogram looks good and the valve continues to function well Lewis Mackey This Delta ID message has not been read. documented in this encounterSt. [facility]02-[facility]25 Telephone encounter Note * Telephone Encounter - Hemalatha Oneil LPN - 09/18/2024 1:59 PM EST Images from the original note were not included. Marj Mackey MD routed this conversation to [facility]3] Marj Mackey MD to Anne Cooley 09/18/24 1:54 PM Hey Les Your echocardiogram looks good and the valve continues to function well Lewis Mackey This Delta ID message has not been read. [facility]02-07-2025 Instructions* Patient Instructions* Abby Pate MD [...] for sleepiness with it. documented in this encounterSt. Vincent Hospital02-07-2025 NoteHNO ID: [id number] Author: ABBY PATE MD Service: ? Author [...] (FLONASE) 50 mcg/actuation nasal spray Use 1 Catawba in each nostril once daily. Rinse mouth [...] DATA REVIEW Actual films (more content not included)...[facility]02-07-2025 History of Present illness Narrative* Abby [...] (FLONASE) 50 mcg/actuation nasal spray Use 1 Catawba in each nostril once daily. Rinse mouth [...] heart history, will touch base with his hand spring repairer helper if metoprolol could be changed to propranolol [...] Discussed with Patient: YES Abby Pate MD [facility] Neurology documented in this encounterSt. Vincent Hospital01-27-2025 History of Present illness Narrative* Marj Mackey MD - 08/31/2024 3:40 PM EST Images from the original note were not included. [facility] SECTION [facility] REGIONAL CARDIOLOGY Cardiology ([facility]) [address] [address] OUTPATIENT VISIT DATE 08/31/2024 PRIMARY CARE PHYSICIAN: Oniel Francis [address] [place] [address] HISTORY OF PRESENT ILLNESS: Mr. Cooley is [...] 10/09/2002 Living will on file 12/12/2021 DPA: Matthew () Meniscus tear 12/27/2015 Right, minimal. Seen [...] Pt reports he was told by the hand spring repairer helper that they almost lost him due to [...] fluticasone (FLONASE) 50 mcg/actuation nasal spray^Use 1 Catawba in each nostril once daily. Rinse mouth [...] S1, S2 with regular rate and rhythm. [place] aortic valve sounds noted. CARDIOVASCULAR MEDICINE TESTING: [...] 0.85 which was hemodynamically significant. 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- ICD9: 414.01, ICD10: [...] BNP Marj Mackey MD documented in this encounterSt. Vincent Hospital01-27-2025 NoteHNO ID: [id number] Author: MARJ MACKEY MD Service: ? Author Type: Physician Type: Progress Notes Filed: 08/31/2024 16:39 Note Text: [facility] SECTION [facility] REGIONAL CARDIOLOGY Cardiology ([facility]) [address] [facility] [address] OUTPATIENT VISIT DATE 08/31/2024 PRIMARY CARE PHYSICIAN: Oniel Francis [address] [place] [address] HISTORY OF PRESENT ILLNESS: Mr. Cooley is [...] 10/09/2002 Living will on file 12/12/2021 DPA: Matthew () Meniscus tear 12/27/2015 Right, minimal. Seen [...] 10/29/2018 Aortic valve rep (more content not included)...[facility] 08-03-2024 Telephone encounter Note* Telephone Encounter [...] Martini LPN August 03, 2024 7:[address] [facility]12-30-2024 Miscellaneous Notes* Telephone Encounter - Анна [...] 03, 2024 7:25 AM documented in this encounterSt. Vincent Hospital12-06-2024 Telephone encounter Note * Telephone Encounter - Oniel Francis MD - 07/10/2024 5:16 PM EST The following approved medication requests have been transmitted electronically. Requested Prescriptions Signed Prescriptions Disp Refills levothyroxine (SYNTHROID) 25 mcg tablet 90 tablet 1 Sig: Take 1 tablet by mouth once daily. Take on empty stomach. For thyroid. Authorizing Provider: ONIEL FRANCIS MD [facility]12-06-2024 Miscellaneous Notes* Telephone Encounter - Oniel [...] Thank you. Daly Art. documented in this encounterSt. Vincent Hospital12-06-2024 Telephone encounter Note * Telephone Encounter [...] Barlow MA July 10, 2024 4:[address] [facility]12-06-2024 Miscellaneous Notes* Telephone Encounter - Prudencio [...] 10, 2024 4:54 PM documented in this encounterSt. Vincent Hospital12-06-2024 Telephone encounter Note * Telephone Encounter [...] Barlow MA July 10, 2024 4:[address] [facility]12-06-2024 Telephone encounter Note* Telephone Encounter - [...] 02/08/2025 Please advise. Thank you. Daly Art. [facility]10-07-2024 Telephone encounter Note* Telephone Encounter - Mayra Breaux LPN - 05/11/2024 2:17 PM EDT Patient returned call and went over results, notes from Cristal Giron [employer] with understanding. Patient said he has appt on Saturday with Dr Caldwell at [facility] and requesting a copy of report befaxed. Printed and faxed to [phone] [facility]10-07-2024 Miscellaneous Notes* Telephone Encounter - Mayra Breaux LPN - 05/11/2024 2:17 PM EDT Patient returned call and went over results, notes from Cristal Giron [employer] with understanding. Patient said he has appt on Saturday with Dr Caldwell at [facility] and requesting a copy of report befaxed. Printed and faxed to [phone] as requested. * Telephone Encounter - Autumn Mares MA - 05/11/2024 1:07 PM EDT Left message for patient to return call to office Autumn Mares MA * Telephone Encounter - Cristal Giron APRN.CNP - 05/11/2024 1:02 PM EDT Please let patient know refills sent. Also Us results from [facility] negative for DVT ;however does show [...] 05/07/2024 NOV 02/08/2025 * Telephone Encounter - Cristal Giron APRN.CNP - 05/08/2024 11:49 AM EDT Please let patient know their labs are WNL documented in this encounterSt. Vincent Hospital10-07-2024 Telephone encounter Note * Telephone Encounter - Autumn Mares MA - 05/11/2024 1:07 PM EDT Left message for patient to return call to office Autumn Mares MA [facility]10-07-2024 Telephone encounter Note* Telephone Encounter - Cristal Giron APRN.CNP - 05/11/2024 1:02 PM EDT Please let patient know refills sent. Also Us results from [facility] negative for DVT ;however does show a likely popliteal cyst which could be causing pain. Recommend follow up with ortho. [facility]10-07-2024 Telephone encounter Note* Telephone Encounter - Olive Raphael OCCA - 05/11/2024 11:01 AM EDT TC to patients , listed in chart to receive medical information, who verbalized understanding of below. asking that refills of atorvastatin and metoprolol be sent to pharmacy. Pended as suchif provider agreeable. ROLAN 05/07/2024 NOV 02/08/2025 [facility]10-04-2024 Telephone encounter Note* Telephone Encounter - Cristal Giron APRN.CNP - 05/08/2024 11:49 AM EDT Please let patient know their labs are WNL [facility]10-04-2024 Telephone encounter Note* Telephone Encounter - Mayra Breaux LPN - 05/08/2024 9:59 AM EDT Patient Matthew calling having problem scheduling ultrasound for his legs at [facility]. She was told office has to call to schedule. This nurse called and spoke to scheduling Rosalia and scheduled STAT ultrasound of his legs today at 1 pm patient to be there at 1245 pm. Phoned patient back and gave instructions, told may want to be earlier since construction is going on at [facility] area. Phoned astronomy professor and cancelled appt for [facility] for this afternoon. [facility]10-04-2024 Miscellaneous Notes* Telephone Encounter - Mayra Breaux LPN - 05/08/2024 9:59 AM EDT Patient Matthew calling having problem scheduling ultrasound for his legs at [facility]. She was told office has to call to schedule. This nurse called and spoke to scheduling Rosalia and scheduled STAT ultrasound of his legs today at 1 pm patient to be there at 1245 pm. Phoned patient back and gave instructions, told may want to be earlier since construction is going on at [facility] area. Phoned astronomy professor and cancelled appt for [facility] for this afternoon. documented in this encounterSt. Vincent Hospital10-04-2024 Telephone encounter Note * Telephone Encounter - Autumn Mares MA - 05/08/2024 9:27 AM EDT Approval received. Pt will call [facility] to schedule Autumn Mares MA [facility]10-04-2024 Miscellaneous Notes* Telephone Encounter - Autumn Mares MA - 05/08/2024 9:27 AM EDT Approval received. Pt will call [facility] to schedule Autumn Mares MA * Telephone Encounter - Autumn Mares MA - 05/08/2024 9:11 AM EDT Referral placed. Waiting to hear back from pre access if approved Autumn Mares MA * Telephone Encounter - Cristal Giron APRN.NIGHAT - 05/07/2024 5:03 PM EDT Please check to see if [facility] has availability. If so please fax order. * Telephone Encounter - Sophie Collier - 05/07/2024 4:55 PM EDT Pt called to check schedule in [place] for [place]. There are no appointments available here tomorrow. He would like to check at the [facility] if the order could be sent there to check appointment availability tomorrow. He kept the [facility] appointment just in case we find that the [facility] can't accommodate tomorrow. documented in this encounterSt. Vincent Hospital10-04-2024 Telephone encounter Note * Telephone Encounter - Autumn Mares MA - 05/08/2024 9:11 AM EDT Referral placed. Waiting to hear back from pre access if approved Autumn Mares MA [facility]10-03-2024 Telephone encounter Note* Telephone Encounter - Cristal Giron APRN.CNP - 05/07/2024 5:03 PM EDT Please check to see if [facility] has availability. If so please fax order. [facility]10-03-2024 Telephone encounter Note* Telephone Encounter - Sophie Collier - 05/07/2024 4:55 PM EDT Pt called to check schedule in [place] for [place]. There are no appointments available here tomorrow. He would like to check at the [facility] if the order could be sent there to check appointment availability tomorrow. He kept the [facility] appointment just in case we find that the [facility] can't accommodate tomorrow. [facility] Phone: [phone] 275-335810-03-2024 History of Present illness Narrative* Cristal Giron, ANGIE.WAREHOUSE SHIPPING ASSOCIATE - 05/07/2024 3:50 PM EDT Chief Complaint [...] 10/09/2002 Living will on file 12/12/2021 DPA: Matthew () Meniscus tear 12/27/2015 Right, minimal. Seen [facility] hbeert Microscopic hematuria 01/10/2021 Saw Luciano 02/2021 and [...] Pt reports he was told by the hand spring repairer helper that they almost lost him due to [...] (FLONASE) 50 mcg/actuation nasal spray Use 1 Catawba in each nostril once daily. Rinse mouth [...] PHOSPHORUS INORGANIC - US DVT LOWER BILATERAL Cristal Giron APRN.WAREHOUSE SHIPPING ASSOCIATE documented in this encounterSt. Vincent Hospital09-03-2024 Miscellaneous Notes* Telephone Encounter - Ella Valdovinos PA-C - 04/07/2024 11:12 AM EDT Ordering labs for next year's wellness exam. Ella Valdovinos PA-C documented in this encounterSt. Vincent Hospital09-03-2024 Telephone encounter Note * Telephone Encounter - Ella Valdovinos PA-C - 04/07/2024 11:12 AM EDT Ordering labs for next year's wellness exam. Ella Valdovinos PA-C [facility]09-03-2024 History of Present illness Narrative* Ella [...] 12/12/2021: Living will on file Comment: DPA: Matthew () 12/27/2015: Meniscus tear Comment: Right, minimal. [...] Pt reports he was told by the hand spring repairer helper that they almost lost him due to [...] (FLONASE) 50 mcg/actuation nasal spray Use 1 Catawba in each nostril once daily. Rinse mouth [...] urology Ella Valdovinos PA-C documented in this encounterSt. Vincent Hospital08-07-2024 Instructions* Patient Instructions* Abby Pate MD [...] or extra movements (dyskinesia). documented in this encounterSt. Vincent Hospital08-07-2024 History of Present illness Narrative* Abby [...] (FLONASE) 50 mcg/actuation nasal spray Use 1 C[place]wba in each nostril once daily. Rinse mouth [...] Discussed with Patient: YES Abby Pate MD [facility] Neurology documented in this encounterSt. Vincent Hospital07-23-2024 Telephone encounter Note * Telephone Encounter - Stacy Varghese RN - 02/25/2024 11:51 AM EDT Call placed to patient and notified of provider message below. Patient verbalizes understanding andwill continue taking Flomax. Stacy Varghese RN [facility]07-23-2024 Miscellaneous Notes* Telephone Encounter - Stacy Varghese RN - 02/25/2024 11:51 AM EDT Call placed to patient and notified of provider message below. Patient verbalizes understanding andwill continue taking Flomax. Stacy Varghese RN * Telephone Encounter - Cristal Giorn APRN.CNP - 02/25/2024 8:09 AM EDT Please let patient know it can take 2-6 weeks for medication to become effective. * Telephone Encounter - Autumn Mares MA - 02/24/2024 4:36 PM EDT Spoke to patient and . Pt states he is taking the Flomax and he is urinating more than before he started the medication. Autumn Mares MA * Telephone Encounter - Cristal Giron APRN.NIGHAT - 02/24/2024 4:32 PM EDT Is [...] night. Jessica Brown LPN documented in this encounterSt. Vincent Hospital07-23-2024 Telephone encounter Note * Telephone Encounter - Cristal Giron APRN.CNP - 02/25/2024 8:09 AM EDT Please let patient know it can take 2-6 weeks for medication to become effective. [facility] Work Phone: [phone] Telephone encounter Note* Telephone Encounter - Autumn Mares MA - 02/24/2024 4:36 PM EDT Spoke to patient and . Pt states he is taking the Flomax and he is urinating more than before he started the medication. Autumn Mares MA [facility]07-22-2024 Telephone encounter Note* Telephone Encounter - Cristal Giron APRN.CNP - 02/24/2024 4:32 PM EDT Is patient currently taking flomax? If he has not started medication he may start it. If he is taking it is he going more or less than before starting medication? [facility]07-22-2024 Telephone encounter Note* Telephone Encounter - [...] sleep at night. Jessica Brown LPN [facility]07-17-2024 Note Discharge Instructions Thank you for [...] with ONIEL FRANCIS When:Only if needed Where:[address] [place] [address]- Business (1) Follow Up with CHRIS COX When:In 2 weeks Where:[facility] [address] [facility] [place] [address]- Business (1) Someone Will Contact You Regarding [...] to exceed 3000 mg/ day Pickup at [facility]/pharmacy #3321 New docusate-senna (Senokot S) 2 tab(s) by mouth Two (2) times a day Take until first bowel movement, then as needed New famotidine (Pepcid 20 mg oral tablet) 1 tab(s) by mouth Once a day Pickup at [facility]/pharmacy #3321 New oxyCODONE (oxyCODONE 5 mg oral tablet ( IMMEDIATE release )) See instructions Status post total left knee replacement 1-2 tab(s) Oral q4h, As needed for as needed for pain Pickup at [facility]/pharmacy #3321 New rivaroxaban (Xarelto 10 mg oral tablet) 1 tab(s) by mouth Once a day Status post total left knee replacement 1 tablet daily for 2 weeks postoperatively due to past history of DVT Pickup at [facility]/pharmacy #3321 Unchanged acetaminophen-diphenhydramine (Tylenol PM [...] by mouth Once a day Pharmacy Information [facility]/pharmacy #3321: [address] [place], [place] [id number] [phone] Please take this list to your next doctor s visit. Bring all medications you take, including over the counter medications, herbals and other supplements with you to your doctor s visit. Patients and families are reminded to discard old lists and to update any records with all medication providers or retail pharmacies. Education Materials [facility] Post-operative Instructions PLEASE FOLLOW [facility] POST-OP INSTRUCTIONS GIVEN WATCH FOR SIGNS OF INFECTION: call the office ([phone]) if experencing any of the following: (Usually [...] on your follow up instructions. Form: 338A (90818) R: 12/09 Additional Information VACCINATE! IT SAVES LIVES! Members of the community who have not yet received the COVID-19 vaccine and would like to receive it can visit one of [facility] vaccine clinics. There are many vaccine clinic locations within the [facility]. For locations and available times, please visit [email or web address].[place].gov/. It is important to note that some COVID mobile vaccine clinics are held outdoors and may be canceled in rainy or stormy conditions. To learn more about pediatric vaccinations (ages 5-11), we invite you to visit the [facility] webpage. [email or web address].[email or web address]/pages/[email or web address]-Vusus-Oaizxlgiqqg-Nlbdcwptaw-Iduyl-Ojb stions.htmlTo learn more about the COVID-19 vaccine, we invite you to visit the CDC website for a list of frequently asked questions.https://www.cdc.gov/coronavirus/2019-ncov/vaccines/faq.html [facility] Patient Portal Access Instructions: Stay connected with your healthcare team and access your personal medical information anytime with the [facility] Patient Portal. Please follow the directions below to create your [facility] account: 1.Access the email account you provided upon registration to the hospital/physician office.2.Look for an invitation email from [facility].3.Open the email and access the invitation link: AcceptInvitation to [facility].4.Fill in the required freeman to create your account. To access your account, visit [email or web address]. Click the blue button labeled Access Patient Portal and then log in with the username and password that you created in the steps above. You will be able to view your test results, lab results, a summary of your visits, upcoming appointments and more. There is also a convenient messaging option where you can send secure messages to your p SuperMamavider. In addition, you will have the ability to download any documents or summaries to your computer and/or send the information securely to a physician. Remember that your healthcare information is confidential, so carefully consider who you will allowto register on the [facility] Patient Portal for access to your information. You can also access the [facility] Patient Portal on the NetHookswhere marti. Simply click on Patient Portal and then log into your account. If you would like to receive a full copy of your medical records, please contact the [facility] Medical Records Department by calling [phone], Saturday through Saturday between 8 a.m. and [...] Call your local pharmacy or go to [email or web address] to find one close to you.3.Make use of household items: Use cat litter or old coffee grounds to dispose medications if other options arenot available. Mix your drugs with these household products, seal them in an airtight container andthrow it into the garbage. Call [facility]: [phone] to be sure your drugs can be [...] a CHART COPY. Signatures Patient Education Materials [facility] Post-op Instruction 03/2017 (46093) Medication Leaflets My discharge plan and instructions have been reviewed and explained to me and ILENORA LESLIE L understand my current condition and have read and understand these discharge instructions. I have received a written copy of the plan/instructions. If I have questions, I am aware that I should contact my doctor. Patient/Service Person Signature: Date/Time: Relationship to Patient: Witness Name/Signature: Date/Time: [facility]07-17-2024 Note Date of Service February 19, [...] patient to go home when medically stable. [place] have outpatient physical therapy established. Objective Vitals [...] would like his prescriptions E scribed to [facility] in [facility]. He has outpatient physical therapy established. He will follow-up per postoperative instructions. Upon discharge he will contact our office with any concerns or questions. I have reviewed the [place] Automated Rx Reporting System (OARRS) report for [...] CHRIS COX PA-C on 02/19/2024 08:40 AM [facility]07-17-2024 Hospital Discharge instructions Patient Education 02/19/2024 08:40:59 5 - [facility] Post-op Instruction 03/2017 (07186) [facility] Post-operative Instructions PLEASE FOLLOW [facility] POST-OP INSTRUCTIONS GIVEN WATCH FOR SIGNS OF INFECTION: call the office ([phone]) if experencing any of the following: (Usually [...] on your follow up instructions. Form: 338A 11180) R: 12/09 Follow Up Care 01/09/2024 07:46:38 With:ONIEL FRANCIS Address: [address] [place] [address]- Business (1) When: only if needed With:CHRIS COX Address: [facility] [address] [place] [address] [place] [address]- Business (1) When:Within 2 Week(s) [facility] 07-17-2024 Note Date of Service February [...] patient to go home when medically stable. [facility] have outpatient physical therapy established. Objective [...] would like his prescriptions E scribed to [facility] in [facility]. He has outpatient physical therapy established. He will follow-up per postoperative instructions. Upon discharge he will contact our office with any concerns or questions. I have reviewed the [place] Automated Rx Reporting System (OARRS) report for [...] CHRIS COX PA-C on 02/19/2024 08:40 AM [facility]07-16-2024 Note ORIGINAL EXAMINATION: TWO XRAY VIEWS [...] Sign Date: 02/18/2024 3:48:22 PM Ordering Provider: [facility]07-16-2024 Anesthesiology Consult note Patient: SONIYA COOLEY Age: 83 years Sex: Male : 1940 Associated Diagnoses: None Author: HUSEYIN ANGELO APRN-TELESCOPE OPERATOR Preoperative Information Time of last food or [...] or recorded. Procedure history: Arthroplasty of knee ([id number]) on 02/18/2024 at 83 Years. 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 Tonsillectomy and adenoidectomy (436907306). Colonoscopy (237102871). Cholecystectomy (73339941). CABG x 4 - Coronary artery bypass grafts x 4 ([id number]). Social History: Social & Psychosocial Habits Alcohol 02/18/2024 Use: Current Frequency: 1-2 times per week Substance Abuse 02/18/2024 Use: Never Tobacco 02/18/2024 Tobacco Use: Never (less than 100 in l Home/Environment 02/18/2024 Domestic Concerns None Lives In Single level home Spouse Name MATTHEW Marital Status of Patient if Patient Independent [...] Signs (last 24 hrs) Last Charted Temp Bjhbzyyv20.6 DegC (FEB 17 11:01) Heart Rate Jnfklbjcw64 bpm (FEB 17 13:55) UIX542 mmHg (FEB 17 13:55) DBP59 mmHg (FEB 17 13:55) Measurements from flowsheet : Measurements 02/18/2024 11:01 EDT Height 170.2 cm Admission Weight 88 kg [place] Body Weight 66.12 kg Admission Body Mass [...] Integrity Intact/Dry 02/18/2024 13:19 EDT SN - [place] - Medication SODIUM CHLORIDE 0.9% 43.95ML SN - LA - Medication SODIUM CHLORIDE 0.9% 43.95ML SN - LA - Medication SODIUM CHLORIDE 0.9% 50ML SN - LA - Route of Administration Local SN - LA - Route of Administration Local SN - [place] - Route of Administration Topical SN - LA - By (Single) SN - LA - By (Single) SN - LA - By (Single) SN - LA - By (Single) SN - LA - By (Single) SN - LA - By (Single) 02/18/2024 13:16 EDT SN [...] Surgeon SN - CAt - Role Performed Professional Security Officer 1 SN - CAt - Role Performed Scrub 1 SN - CAt - Role Performed Scrub 1 SN - CAt - Role Performed Electrical Design Technologist 1 SN - CAt - Role Performed TELESCOPE OPERATOR SN - CAt - Role Performed Seo Professional SN - CAt - Role Performed Seo Professional SN - CAt - Role Performed Physician Master Certified Rv Technician 02/18/2024 12:41 EDT citric acid-sodium citrate Not [...] Height 170.2 cm Admission Weight 88 kg [place] Body Weight 66.12 kg Admission Body Mass [...] Quadrants Present Skin Temperature Warm Skin Description [place] Skin Integrity Intact Mucous Membrane Color [place] Skin Moisture General Dry Neurological Symptoms Patient [...] Person #1 We May Share MARIS MCNEAL [phone] Designated Person #1 Relationship Spouse Privacy Restrictions Requested None Status N/A Sensory Deficits None Sleep Apnea Snore Yes Sleep Apnea Tired Yes Sleep Apnea Obstruction No Sleep Apnea Pressure Yes Sleep Apnea BMI No Sleep Apnea Age Yes Sleep Apnea Neck No Sleep Apnea Gender Yes Sleep Apnea Score 5 HI Diagnosed With Sleep Apnea No Advanced Directives Yes Advance Directive Type [facility] Power of Review Engineer for [place], [place] Declaration (Living Will) Advance Directive Location [...] Method Explanation, Printed materials Preferred Spoken Language Canadian Preferred Written Language Canadian Teaching Evaluation Verbalizes/Nonverbally indicates understanding Total Joint [...] Allergies Yes Anesthesia Extension Set Applied Yes Senior Storage Administrator On Yes Consent Form Signed Yes Patient [...] Intake 02/17/2024 22:00 . Assessment and Plan [place] Society of Anesthesiologists (ASA) physical status classification: Class III. Anesthetic Preoperative Plan Premedication: intravenous. Anesthetic technique: Spinal. Induction: intravenously. Maintenance airway: 40%. Regional: Adductor Canal Block. Postoperative pain management: Per surgeon. Informed consent: signed by patient. Digitally Signed by HUSEYIN ANGELOTELESCOPE OPERATOR on 02/18/2024 02:08 PM [facility]07-10-2024 Telephone encounter Note* Telephone Encounter - Shae Morrissey LPN - 02/12/2024 4:11 PM EDT [place] calling from [facility], pt is there for a pre op appt. Requesting last 2 chest xrays. Xrays from 12/14/23 & 01/31/24 faxed to [phone]. Shae Morrissey LPN [facility]07-10-2024 Miscellaneous Notes* Telephone Encounter - Shae Morrissey LPN - 02/12/2024 4:11 PM EDT [place] calling from [facility], pt is there for a pre op appt. Requesting last 2 chest xrays. Xrays from 12/14/23 & 01/31/24 faxed to [phone]. Shae Morrissey LPN documented in this encounterSt. [facility] Hospital07-08-2024 Instructions* Patient Instructions* Ella Valdovinos PA-C [...] review all the medicines you take, even [id number] medicines. As you get older, the way [...] have certain medical conditions. documented in this encounterSt. [facility] Hospital07-08-2024 History of Present illness Narrative* Ella [...] 10/09/2002 Living will on file 12/12/2021 DPA: Matthew () Meniscus tear 12/27/2015 Right, minimal. Seen [...] Pt reports he was told by the hand spring repairer helper that they almost lost him due to [...] (FLONASE) 50 mcg/actuation nasal spray Use 1 [place] in each nostril once daily. Rinse mouth [...] Abs Lymph 1.00 - 4.00 k/uL 3.12 [place]% % 9.5 Abs [place] <0.87 k/uL 0.68 Eosin% % 5.6 Abs Eosin <0.46 k/uL 0.40 Baso% % 0.6 Abs Baso <0.11 k/uL 0.04 Immature Gran % % 0.3 IMMATURE GRANS (ABS) <0.10 k/uL <0.03 NRBC /100 WBC 0.0 Absolute nRBC <0.01 k/uL <0.01 DTYPE Auto Color Yellow Yellow Clarity Clear Clear Glucose, Urine Negative Negative Bilirubin, Urine Negative Negative Ketones, Urine Negative Negative Specific [place], Ur 1.005 - 1.030 1.020 Hemoglobin/Blood,Ur Negative [...] aerobic exercise 9. 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 documented in this encounterSt. [facility] Hospital07-03-2024 History of Present illness Narrative* Cristal Santiago MA - 02/05/2024 12:19 PM EDT POPULATION HEALTH NAVIGATION OUTREACH Action/FYI Patient is on [facility] CURRENT ROSTER Workbench list for below and [...] already scheduled Updated appointment notes Navigation Signature: Cristal Santiago MA February 05, 2024 12:19 PM documented in this encounterSt. Vincent Hospital07-03-2024 Telephone encounter Note * Telephone Encounter - Stacy Varghese RN - 02/05/2024 8:33 AM EDT Patient calls and notified of results. Patient verbalizes understanding. Stacy Varghese RN [facility]07-03-2024 Miscellaneous Notes* Telephone Encounter - Stacy [...] normal. Ella Valdovinos PA-C documented in this encounterSt. Vincent Hospital07-02-2024 Telephone encounter Note * Telephone Encounter - Prudencio Barlow MA - 02/04/2024 11:15 AM EDT Left additional message for patient to contact office. Prudencio Barlow MA [facility]07-01-2024 Telephone encounter Note* Telephone Encounter - Keren Sykes LPN - 02/03/2024 3:00 PM EDT Left message for pt to contact office. Keren Sykes LPN [facility]07-01-2024 Telephone encounter Note* Telephone Encounter - Ella Valdovinos PA-C - 02/03/2024 2:14 PM EDT Repeat CXR is normal. Ella Valdovions PA-C [facility]06-[facility] History of Present illness Narrative* Kerri [...] PATIENT PRESENTS WITH AN IMPLANTABLE OR ATTACHED BROILER MANAGER: No RADIOLOGY DEPARTMENT: General X-ray: Exam(s) Completed: Chest X-Ray PERIPHERAL IV DATA: Not applicable SIGNED BY: RT Teresa(R) January 31, 2024 8:11 AM documented in this encounterSt. Vincent Hospital06-24-2024 Note ORIGINAL EXAMINATION: CT OF THE [...] Date: 01/27/2024 1:37:20 PM Ordering Provider: DEAN [facility]05-28-2024 Instructions* Patient Instructions* Oniel Francis MD - 12/31/2023 11:44 AM EDT Come in to get the repeat chest x-ray on or after 01/17/2024 along with labs and urine test. You do not need to fast. documented in this encounterSt. Vincent Hospital05-28-2024 History of Present illness Narrative* Oniel [...] 10/09/2002 Living will on file 12/12/2021 DPA: Matthew () Meniscus tear 12/27/2015 Right, minimal. Seen [...] Pt reports he was told by the hand spring repairer helper that they almost lost him due to [...] (FLONASE) 50 mcg/actuation nasal spray Use 1 [place] in each nostril once daily. Rinse mouth [...] Data reviewed Results XR CHEST 2V FRONTAL/LAT (Acc#[id number]) (Order [id number]) Patient Info Patient Name Sex Soniya Camacho ([id number]) Male 1940 12/14/2023 1:34 PM - Radiology, [place] Impression IMPRESSION: Questionable vague hazy opacity in the left midlung. Consider short-term follow-up. Cost Analyst: GEOFFREY Transcribe Date/Time: Dec 14 2023 1:30P [...] needed. Oniel Francis MD documented in this encounterSt. Vincent Hospital05-20-2024 History of Present illness Narrative* Marj Mackey MD - 12/23/2023 3:40 PM EDT Images from the original note were not included. [facility] SECTION OF REGIONAL CARDIOLOGY Cardiology ([facility]) [address] [facility] [id number] OUTPATIENT VISIT DATE 12/23/2023 PRIMARY CARE PHYSICIAN: Oniel Francis [address] [place] [address] HISTORY OF PRESENT ILLNESS: Mr. Cooley is [...] 10/09/2002 Living will on file 12/12/2021 DPA: Matthew () Meniscus tear 12/27/2015 Right, minimal. Seen Carmelzuly hebert Microscopic hematuria 01/10/2021 Saw Luciano 02/2021 [...] Pt reports he was told by the hand spring repairer helper that they almost lost him due to [...] fluticasone (FLONASE) 50 mcg/actuation nasal spray^Use 1 [place] in each nostril once daily. Rinse mouth [...] S1, S2 with regular rate and rhythm. [place] aortic valve sounds noted. CARDIOVASCULAR MEDICINE TESTING: [...] 0.85 which was hemodynamically significant. 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 Marj Mackey MD documented in this encounterSt. Vincent Hospital05-14-2024 Telephone encounter Note * Telephone Encounter - Michelle Herring RN - 12/17/2023 11:46 AM EDT Patient's scheduled for appointment on 12/31/2023. Michelle Herring RN [facility]05-14-2024 Miscellaneous Notes* Telephone Encounter - Michelle [...] mid lung has resolved. documented in this encounterSt. Vincent Hospital05-14-2024 Telephone encounter Note * Telephone Encounter - Prudencio Barlow MA - 12/17/2023 9:04 AM EDT Left message for patient to contact office. Prudencio Barlow MA [facility]05-13-2024 Telephone encounter Note* Telephone Encounter - Oniel Francis MD - 12/16/2023 10:04 PM EDT Needs f/u in 3 weeks within [place] for f/u pneumonia and repeat chest x-ray to see if vague hazy opacity in left mid lung has resolved. [facility]05-11-[facility] History of Present illness Narrative* Damián Lynn RT(R) - 12/14/2023 11:40 AM EDT Radiology Service Progress Note PATIENT NAME: oSniya Cooley DATE OF SERVICE: December 14, 2023 [...] PATIENT PRESENTS WITH AN IMPLANTABLE OR ATTACHED BROILER MANAGER: No RADIOLOGY DEPARTMENT: General X-ray: Exam(s) Completed: Chest X-Ray PERIPHERAL IV DATA: Not applicable SIGNED BY: RT Marjorie(R) December 14, 2023 11:44 AM documented in this encounterSt. Vincent Hospital05-11-2024 History of Present illness Narrative* Eva Barlow APRN.WAREHOUSE SHIPPING ASSOCIATE - 12/14/2023 11:31 AM EDT CC: Patient [...] 10/09/2002 Living will on file 12/12/2021 DPA: Matthew () Meniscus tear 12/27/2015 Right, minimal. Seen [...] fluticasone (FLONASE) 50 mcg/actuation nasal spray^Use 1 [place] in each nostril once daily. Rinse mouth [...] in the left midlung. Consider short-term follow-up. Cost Analyst: GEOFFREY Transcribe Date/Time: Dec 14 2023 1:30P [...] plan. Eva Barlow APRN.NIGHAT documented in this encounterSt. Vincent Hospital04-09-2024 History of Present illness Narrative* Lelia Soni MA - 11/12/2023 3:16 PM EDT POPULATION HEALTH NAVIGATION OUTREACH Action/FYI Contacted patient to schedule [place] Annual Wellness Visit, care gaps and HCCs due. 1st attempt: Left message with my direct number 2nd attempt: My Chart message sent Reason for Outreach Care Gap/HCC or Scheduling Wellness Visits Care Gaps due: Medicare Annual Wellness Visit Patient Contacted: Unable or unnecessary to reach patient: Left message [employer] message sent HCC related Navigation Signature: Lelia Soni MA November 12, 2023 3:16 PM documented in this encounterSt. Vincent Hospital02-07-2024 Instructions* Patient Instructions* Abby Pate MD - 09/11/2023 2:08 PM EST Continue the same dose of medication today, consider compressing the times to every 5 hours. Try to stay physically active, consider stationary bike if it doesn't trigger too much pain. Ask your doctor about medications for urination overnight. Continue the miralax for constipation. documented in this encounterSt. Vincent Hospital02-07-2024 History of Present illness Narrative* Abby [...] (FLONASE) 50 mcg/actuation nasal spray Use 1 [place] in each nostril once daily. Rinse mouth [...] Discussed with Patient: n/a Abby Pate MD [facility] Neurology documented in this encounterSt. Vincent Hospital11-20-2023 Instructions* Patient Instructions* Marj Mackey MD - 06/24/2023 4:28 PM EST We are ordering an echocardiogram and a carotid ultrasound documented in this encounterSt. Vincent Hospital11-20-2023 History of Present illness Narrative* Marj Mackey MD - 06/24/2023 4:00 PM EST Images from the original note were not included. [facility] SECTION [facility] REGIONAL CARDIOLOGY [facility] [address] [facility] [id number] OUTPATIENT VISIT DATE 06/24/2023 PRIMARY CARE PHYSICIAN: Oniel Francis [address] [place] [address] HISTORY OF PRESENT ILLNESS: Mr. Cooley is [...] 10/09/2002 Living will on file 12/12/2021 DPA: Matthew () Meniscus tear 12/27/2015 Right, minimal. Seen [...] Pt reports he was told by the hand spring repairer helper that they almost lost him due to [...] (FLONASE) 50 mcg/actuation nasal spray Use 1 [place] in each nostril once daily. Rinse mouth [...] S1, S2 with regular rate and rhythm. [place] aortic valve sounds noted. CARDIOVASCULAR MEDICINE TESTING: Cardiac Catheterization August 2018 Findings: Left main Normal LAD 50% mid stenosis LCx (dominant) severe diffuse proximal disease RCA 100% mid occlusion (non-dominant per records) SVG to Diagonal, AV groove LCx, LPDA patent IFR of the 50% stenosis in the mid LAD was 0.85 which was hemodynamically significant. 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 Vincent Hospital08-16-2023 Instructions* Patient Instructions* Abby Pate MD - 03/20/2023 12:03 PM EDT Lets keep things the same today. We could consider compressing the times of your doses to every 5 hours to try to reduce OFF time. Try to keep an eye on when you're feeling better or worse in comparison to medicine timing. Try to increase activitiy. documented in this encounterSt. Vincent Hospital08-16-2023 History of Present illness Narrative* Abby [...] (FLONASE) 50 mcg/actuation nasal spray Use 1 [place] in each nostril once daily. Rinse mouth [...] normal. Last dose levodopa 300 mg @ [id number], exam 1200. Mildly ON. Motor: Muscle bulk [...] Discussed with Patient: n/a Abby Pate MD [facility] Neurology documented in this encounterSt. Vincent Hospital08-15-2023 Miscellaneous Notes* Telephone Encounter - Amy Garcia - 03/19/2023 9:28 AM EDT Pharmacy requesting refills as follows via ERAR: ROLAN: 06/18/2022 NOV: 03/20/2023 Requested Prescriptions Pending Prescriptions Disp Refills carbidopa-levodopa (SINEMET 25-100) 25-100 mg per tablet [Pharmacy Med Name: CARB/LEVO TAB 25-100MG] 810 tablet 2 Sig: TAKE 3 TABLETS 3 TIMES A DAY Please review and advise. Amy Garcia documented in this encounterSt. Vincent Hospital05-10-2023 Miscellaneous Notes* Telephone Encounter - Ana Quigley - 12/12/2022 3:07 PM EDT Pt calling to let office know that [facility] ordered Meloxicam for him. He wanted to be sure it was ok to take with his other medications. Added to med list. No contraindications listed. I verified with farmworker cranberry. Ana Quigley documented in this encounterSt. Vincent Hospital04-06-2023 Miscellaneous Notes* Telephone Encounter - Mayra [...] you. Mayra Breaux LPN documented in this encounterSt. Vincent Hospital04-05-2023 Miscellaneous Notes* Telephone Encounter - Zoe Madrid RN - 11/07/2022 3:56 PM EDT Patient called this nurse requesting clarification about possibly needing an echocardiogram. Patient reports understanding of plan of care that Dr. Mackey May consider repeat echocardiogram later this year. At 6 month follow up after this nurse reviewed MD note from appointment on 10/29/22. Zoe Madrid RN documented in this encounterSt. Vincent Hospital03-27-2023 History of Present illness Narrative* Marj Mackey MD - 10/29/2022 11:00 AM EDT Images from the original note were not included. [facility] SECTION OF REGIONAL CARDIOLOGY Cardiology ([facility]) [address] [place] [address] OUTPATIENT VISIT DATE 10/29/2022 PRIMARY CARE PHYSICIAN: Oniel Francis [address] [facility] [address] HISTORY OF PRESENT ILLNESS: Mr. Cooley is [...] 10/09/2002 Living will on file 12/12/2021 DPA: Matthew () Meniscus tear 12/27/2015 Right, minimal. Seen [...] Pt reports he was told by the hand spring repairer helper that they almost lost him due to [...] (FLONASE) 50 mcg/actuation nasal spray Use 1 [place] in each nostril once daily. Rinse mouth [...] S1, S2 with regular rate and rhythm. [place] aortic valve sounds noted. CARDIOVASCULAR MEDICINE TESTING: Cardiac Catheterization August 2018 Findings: Left main Normal LAD 50% mid stenosis LCx (dominant) severe diffuse proximal disease RCA 100% mid occlusion (non-dominant per records) SVG to Diagonal, AV groove LCx, LPDA patent IFR of the 50% stenosis in the mid LAD was 0.85 which was hemodynamically significant. 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 Vincent Hospital12-14-2022 Miscellaneous Notes* Telephone Encounter - Moni [...] and advise. Moni Encarnacion documented in this encounterSt. Vincent Hospital11-22-2022 Miscellaneous Notes* Telephone Encounter - Stacy [...] and carbs in diet. documented in this encounterSt. Vincent Hospital11-18-2022 Instructions* Patient Instructions* Oniel Francis MD - 06/22/2022 9:16 AM EST Please get labs and urine test done on or after 12/07/2022 prior to your next visit. documented in this encounterSt. Vincent Hospital11-18-2022 History of Present illness Narrative* Oniel [...] 10/09/2002 Living will on file 12/12/2021 DPA: Matthew () Meniscus tear 12/27/2015 Right, minimal. Seen [...] Pt reports he was told by the hand spring repairer helper that they almost lost him due to [...] (FLONASE) 50 mcg/actuation nasal spray Use 1 [place] in each nostril once daily. Rinse mouth [...] Abs Lymph 1.00 - 4.00 k/uL 2.93 [place]% % 9.2 Abs [place] <0.87 k/uL 0.61 Eosin% % 2.0 Abs [...] check A1c 4. 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 Vincent Hospital11-14-2022 History of Present illness Narrative* Abby [...] (FLONASE) 50 mcg/actuation nasal spray Use 1 [place] in each nostril once daily. Rinse mouth [...] Discussed with Patient: YES Abby Pate MD [facility] Neurology documented in this encounterSt. Vincent Hospital10-07-2022 Miscellaneous Notes* Telephone Encounter - Oniel [...] 06/2022 Last refill: 11/2021 documented in this encounterSt. Vincent Hospital09-26-2022 Instructions* Patient Instructions* Marj Mackey MD - 04/30/2022 10:36 AM EDT We are adding Zetia 10 mg once per day Repeat fasting blood work in 3-4 months We are scheduling you for an ultrasound of the carotids documented in this encounterSt. Vincent Hospital09-26-2022 History of Present illness Narrative* Marj Mackey MD - 04/30/2022 10:14 AM EDT Images from the original note were not included. [facility] SECTION OF REGIONAL CARDIOLOGY Cardiology ([facility]) [address] [facility] [id number] OUTPATIENT VISIT DATE 04/30/2022 PRIMARY CARE PHYSICIAN: Oniel Francis [address] [place] [address] REFERRING PHYSICIAN: SELF CHIEF COMPLAINT: Establish new [...] 10/09/2002 Living will on file 12/12/2021 DPA: Matthew () Meniscus tear 12/27/2015 Right, minimal. Seen Carmelzuly hebert Microscopic hematuria 01/10/2021 Saw Luciano 02/2021 [...] Pt reports he was told by the hand spring repairer helper that they almost lost him due to [...] (FLONASE) 50 mcg/actuation nasal spray Use 1 [place] in each nostril once daily. Rinse mouth [...] S1, S2 with regular rate and rhythm. [place] aortic valve sounds noted. CARDIOVASCULAR MEDICINE TESTING: Cardiac Catheterization August 2018 Findings: Left main Normal LAD 50% mid stenosis LCx (dominant) severe diffuse proximal disease RCA 100% mid occlusion (non-dominant per records) SVG to Diagonal, AV groove LCx, LPDA patent IFR of the 50% stenosis in the mid LAD was 0.85 which was hemodynamically significant. 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 Vincent Hospital09-19-2022 History of Present illness Narrative* Naun [...] (FLONASE) 50 mcg/actuation nasal spray Use 1 [place] in each nostril once daily. Rinse mouth [...] Pt reports he was told by the hand spring repairer helper that they almost lost him due to [...] evacuation. Naun Monterroso MD documented in this encounterSt. Vincent Hospital09-19-2022 History of Present illness Narrative* Dana Milligan RN - 04/23/2022 11:15 AM EDT 01 documented in this encounterSt. Vincent Hospital07-18-2022 History of Present illness Narrative* Charan Roman [...] 10/09/2002 Living will on file 12/12/2021 DPA: Matthew () Meniscus tear 12/27/2015 Right, minimal. Seen [...] (FLONASE) 50 mcg/actuation nasal spray Use 1 [place] in each nostril once daily. Rinse mouth [...] plan Charan Roman APRN.NIGHAT documented in this encounterSt. Vincent Hospital05-13-2022 Instructions* Patient Instructions* Abby Pate MD - 12/15/2021 3:52 PM EDT Continue the same dose of medication today. Continue to exercise as much as possible. Consider melatonin for dream enactment behavior - 5 mg a couple hours before bed for 2 weeks then increase to 10 mg if no improvement. documented in this encounterSt. Vincent Hospital05-13-2022 History of Present illness Narrative* Abby [...] (FLONASE) 50 mcg/actuation nasal spray Use 1 [place] in each nostril once daily. Rinse mouth [...] Discussed with Patient: n/a Abby Pate MD [facility] Neurology documented in this encounterSt. Vincent Hospital04-06-2022 Miscellaneous Notes* Telephone Encounter - Keren [...] send both medications to mail order pharmacy, [facility]. The pharmacy has been trying to reach the office with no reply. documented in this encounterSt. Vincent Hospital06-08-2021 History of Past illness Narrative* Problem [...] of this encounter (statuses as of 03/19/2023) [facility] of Past illness Narrative* Problem [...] of this encounter (statuses as of 03/21/2023) [facility] of Past illness Narrative* Problem Noted Date Diagnosed Date Resolved Date Other proteinuria 01/10/2021 12/25/2022 Overview: 24 hr patient 01/2021 normal, Tremor 12/11/2019 01/14/2020 Acute deep vein thrombosis ( DVT) of distal vein of lower extremity 04/20/2019 01/14/2020 Stress hyperglycemia 10/29/2018 019 Overview: History: No h/o DM. 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 Plan: [...] of this encounter (statuses as of 06/25/2023) [facility] of Past illness Narrative* Problem [...] of this encounter (statuses as of 09/12/2023) [facility] of Past illness Narrative* Problem [...] of this encounter (statuses as of 11/13/2023) [facility] NoteHNO ID: [id number] Author: Abby Pate Service: ? Author Type: [...] (FLONASE) 50 mcg/actuation nasal spray Use 1 [place] in each nostril once daily. Rinse mouth [...] OFF ON MDS-UPDRS TIME of UPDRS - 76051 MDS-UPDRS TIME OF LAST MEDICATION - 44511 MDS-UPDRS LAST MEDICATION TAKEN - cd/ld 25/100 mg 1.5 tabs MDS (more content not included)...[facility]10-30-2020 NoteHNO ID: [id number] Author: Abby Pate Service: ? Author Type: [...] (FLONASE) 50 mcg/actuation nasal spray Use 1 [place] in each nostril once daily. Rinse mouth [...] frequency, Ma (more content not included)...[facility]06-30-2020 NoteHNO ID: [id number] Author: Abby Pate Service: ? Author Type: [...] with shaking towards end of her life. [place] and [place] background. He endorses some difficulty with manual [...] (FLONASE) 50 mcg/actuation nasal spray Use 1 [place] in each nostril once daily. Rinse mouth [...] Pt reports he was told by the hand spring repairer helper that they almost lost him due to [...] replaced 11/14/19 (more content not included)...[facility]05-08-2020 History of Past illness Narrative* Problem [...] of this encounter (statuses as of 11/08/2021) [facility] History of Past illness Narrative* Problem [...] of this encounter (statuses as of 12/01/2021) [facility] History of Past illness Narrative* Problem [...] of this encounter (statuses as of 12/15/2021) [facility] History of Past illness Narrative* Problem [...] of this encounter (statuses as of 02/19/2022) [facility] History of Past illness Narrative* Problem [...] of this encounter (statuses as of 04/23/2022) [facility] History of Past illness Narrative* Problem [...] of this encounter (statuses as of 04/23/2022) [facility] History of Past illness Narrative* Problem [...] of this encounter (statuses as of 04/30/2022) [facility] History of Past illness Narrative* Problem [...] of this encounter (statuses as of 05/11/2022) [facility] History of Past illness Narrative* Problem [...] of this encounter (statuses as of 05/23/2022) [facility] History of Past illness Narrative* Problem [...] of this encounter (statuses as of 06/24/2022) [facility] of Past illness Narrative* Problem [...] of this encounter (statuses as of 06/24/2022) [facility] Past illness Narrative* Problem [...] of this encounter (statuses as of 06/26/2022) [facility] Past illness Narrative* Problem [...] of this encounter (statuses as of 07/18/2022) [facility] of Past illness Narrative* Problem [...] of this encounter (statuses as of 10/29/2022) [facility] of Past illness Narrative* Problem [...] of this encounter (statuses as of 11/08/2022) [facility] History of Past illness Narrative* Problem [...] of this encounter (statuses as of 11/08/2022) [facility] History of Past illness Narrative* Problem [...] of this encounter (statuses as of 12/13/2022) [facility] Evaluation note* Diagnosis Onset Date Resolution Status Admit Date Stroke-like symptoms acute January 19, 2025 6:07am Essential hypertension chronic Ju ne 2024 6:07am H/O aortic valve replacement October, chroni c January 19, 2025 6:07am Hyperlipidemia chronic January 19, 2025 6:07am H/O coronary artery bypass surgery October, resolved January 19, 2025 6:07am [facility] Work Phone: [phone] 712-788403-01-2019 Evaluation note* Diagnosis Onset Date Resolution Status Admit Date H/O coronary artery bypass surgery October, resolved Phyllis 17th, 2025 6:07am Essential hypertension inactive Ju ne 17th, 2025 6:07am H/O aortic valve replacement October, inacti ve January 19, 2025 6:07am Hyperlipidemia inactive January 19, 2025 6:07am Parkinson's disease inactive January 19, 2025 6:07am Stroke-like symptoms inactive January 19, 2025 6:07am [facility] Work Phone: Discharge summary Author Leti Lu [facility] Note Date/Time January 19, 2025 6:12 pm [facility] Medical Records Department [address] [place] [address] Instructions for Home/Discharge Instructions 01/19/25 1805 MR#: [id number] Acct: [id number] Name: SONIYA COOLEY Rep #:[id number] : 1940 84 From: Leti Lu [...] 25 mcg tablet 25 mcg PO DAILY txukbbqq-hur-IL-lycopen-lutein 1 EACH tablet 1 ea PO DAILY [...] Recorder Preventi (Urgent) Timeframe: 1 Day Facility: [facility] - Location: Cardiovascular Services Ordered By: Dr. [...] Xenia Fournier DO; Tia Mcleod MD ~ [facility] Work Phone: Discharge summary Author Leti [facility] Note Date/Time January 19, 2025 6:17 pm [facility] Medical Records Department [address] [place] [id number] Discharge Summary 01/19/25 1812 MR#: [id number] Acct: [id number] Name: SONIYA COOLEY Rep #:[id number] : 1940 84 From: Leti Lu DO PCP: Dr. Oniel Francis MD Status:ADM DARI Location: [place] [address] Providers Date of Admission: 01/19/25 Date of [...] #5 hyperlipidemia Medications at Discharge Home Medications xpkurksq-vcc-blfxj acid 0.4 mg-lycopene 300 mcg-lutein 250 mcg [...] was seen in the emergency room at [facility] after being brought in by his due [...] symptoms [facility]. [facility] a CT of [...] (Auto) 36.7 L, Lymph % (Auto) 48.3 H,[place] % (Auto) 10.0, Eos % (Auto) 4.3, [...] Clarity Clear, Urine pH 6.0, Ur Specific [place] 1.015, Urine Protein Negative, Urine Glucose (UA) [...] evidence for acute brain abnormality. Reading Location: [place] [address] Head/Neck CTA 01/19/25 04:03 IMPRESSION: Atherosclerosis without high-grade stenosis. Reading Location: [place] [address] Chest X-Ray 01/19/25 04:45 IMPRESSION: Mild bilateral basilar atelectatic pulmonary changes. Reading Location: [place] [address] Brain MRI 01/19/25 09:20 IMPRESSION: Sinus disease is visible in the floor of the right maxillary sinus. There is fluid signal in a portion of the right mastoid air cells, with mastoiditis. No acute intracranial abnormality is identified. [facility] Echocardiogram 01/19/25 13:33 Interpretation Summary The left [...] 25 mcg tablet 25 mcg PO DAILY ngfwrxin-mbo-DV-lycopen-lutein 1 EACH tablet 1 ea PO DAILY [...] Recorder Preventi (Urgent) Timeframe: 1 Day Facility: [facility] - Location: Cardiovascular Services Ordered By: Dr. Leti Lu Referrals / Follow Up: Oniel Francis MD [Primary Care Provider] - See Referral Note (At next appointment time) Disposition Disposition (needs filled in before D/C Order can be placed): Home, Self Care Charges/Coding Visit Charges Inpatient E&M: 21433 Disch Hosp >30min 01/19/251816 <Electronically signed by Leti Lu DO> Cosigner Signature (if applicable): CC: Dr. Oniel Francis MD; Dr. Leti Lu DO~ Signed [facility] Work Phone: Discharge summary Author Rnon Olson [facility] Note Date/Time April 10, 2025 7:29am [facility] Medical Records Department [address] [place] [address] Emergency Department Summary 04/10/25 MR#: [id number] Acct: [id number] Name: SONIYA COOLEY Rep #:[id number] : 1940 84 From: Ronn Harrison PCP: Dr. Oniel Francis MD Status:REG ER Location: ED HPI History of Present Illness Chief Complaint: Abd Pain [facility] Medical History (Updated 03/24/25 @ 09:25 by [...] artery disease Atherosclerosis of coronary artery of [place] heart without angina pectoris Essential hypertension Contusion [...] Ox 96 Oxygen Delivery Method Room Air [facility] Narrative Medical decision making narrative: HISTORY OF PRESENT ILLNESS: Chief complaint: Lower abdominal pain 84-year-old male presents 3 days postop after transurethral resection of prostate here at [facility] by Dr. Jara of the local urologist. [...] reviewed, Vital signs reviewed Constitutional: please see [facility] HENT: MMM Eyes: Pupils equal round and [...] MEDICAL DECISION MAKING: Chief Complaint: please see [facility] External records reviewed: Reviewed operative report by [...] imaging evaluation This note was generated with [employer] dictation software. It may contain incorrectwords, spelling, [...] 74.8 H Lymph % (Auto) 15.0 L [place] % (Auto) 7.8 Eos % (Auto) 1.4 [...] Sl. Cloudy Urine pH 6.0 Ur Specific [place] 1.015 Urine Protein 100 H Urine Glucose [...] 81 mg PO DAILY Patient Comments: heart [facility] clopidogrel [Plavix] 75 mg tablet 75 [...] Provider: Oniel Francis Referrals: Andi Jara MD [[facility] Staff - Active Staff] - Activity Restrictions/Additional [...] further outpatient evaluation and management. Print Language: Canadian Disposition Disposition: Home, Self Care What to do if you have Problems For any increased pain, shortness of breath, bleeding, nausea or vomiting, chestpain, or any unexpected problems, contact your Primary Care Provider. Call [facility] ([phone]) or report to the closest Emergency Room. Call 911 if necessary. 04/10/25 0721 <Electronically signed by Ronn Olson DO> Cosigner Signature (if applicable): CC: Dr. Oniel Francis MD ~ Signed [facility] Work Phone: Evaluation + Plan note Future Appointments [facility] Evaluation note* Diagnosis Mixed hyperlipidemia 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 Diagnosis Rash- Primary Rash and other nonspecific skin eruption [facility] Diagnosis Aortic valve replaced- Primary Heart valve replaced by other means [facility] Diagnosis Olecranon bursitis of right elbow- Primary Olecranon bursitis [facility] Diagnosis 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- Primary Aortic valve replaced Heart valve replaced by other means Essential hypertension Unspecified essential hypertension Mixed hyperlipidemia Carotid stenosis, asymptomatic, bilateral Hyperlipidemia, unspecified hyperlipidemia type [facility] this [facility] Diagnosis Essential hypertension- Primary Unspecified essential hypertension Mixed hyperlipidemia Elevated blood sugar Other abnormal glucose 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 Carotid stenosis, asymptomatic, bilateral Acquired hypothyroidism Unspecified hypothyroidism Vitamin D deficiency Unspecified vitamin D deficiency Obesity, Class I, BMI 30-34.9 Obesity, unspecified B12 deficiency Other B-complex deficiencies Viral URI with cough Acute upper respiratory infections of unspecified site Medication management Encounter for long-term (current) use of other medications [facility] Diagnosis Parkinson disease (HCC) Paralysis agitans [facility] Diagnosis 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- Primary Aortic valve replaced Heart valve replaced by other means Essential hypertension Unspecified essential hypertension Mixed hyperlipidemia Carotid stenosis, asymptomatic, bilateral Hyperlipidemia, unspecified hyperlipidemia type [facility] Diagnosis Parkinson disease (HCC) Paralysis agitans [facility] Diagnosis Parkinson disease (HCC)- Primary Paralysis agitans Chronic idiopathic constipation Unspecified constipation 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 [facility] Diagnosis 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- Primary Aortic valve replaced Heart valve replaced by other means Essential hypertension Unspecified essential hypertension Hyperlipidemia, unspecified hyperlipidemia type Mixed hyperlipidemia Carotid stenosis, asymptomatic, bilateral SAUCEDA (dyspnea on exertion) Other dyspnea and respiratory abnormality [facility] Diagnosis 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 Chronic idiopathic constipation Unspecified constipation Insomnia, unspecified type [facility] Diagnosis Acute cough- Primary Acute cough [facility] Diagnosis 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- Primary Aortic valve replaced Heart valve replaced by other means Essential hypertension Unspecified essential hypertension Mixed hyperlipidemia Carotid stenosis, asymptomatic, bilateral Screening for ischemic heart disease Pre-operative cardiovascular examination [facility] Diagnosis URI, acute- Primary Acute upper respiratory infections of unspecified site X-ray of lung, abnormal Other nonspecific abnormal finding of lung field Mixed hyperlipidemia 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 Elevated blood sugar Other abnormal glucose Essential hypertension Unspecified essential hypertension Acquired hypothyroidism Unspecified hypothyroidism Vitamin D deficiency Unspecified vitamin D deficiency B12 deficiency Other B-complex deficiencies [facility] Diagnosis Medicare annual wellness visit, subsequent- Primary Routine general medical examination at a health care facility Advance directive discussed with patient Other specified counseling Arthritis of knee Unspecified arthropathy, lower leg Acquired hypothyroidism Unspecified hypothyroidism Elevated blood sugar Other abnormal glucose B12 deficiency Other B-complex deficiencies Mixed hyperlipidemia Essential hypertension Unspecified essential hypertension 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 Aortic valve replaced Heart valve replaced by other means Parkinson's disease with dyskinesia and fluctuating manifestations (HCC) BPH associated with nocturia Hypertrophy of prostate with urinary obstruction and other lower urinary tract symptoms (LUTS) [facility] Diagnosis 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 Chronic idiopathic constipation Unspecified constipation Insomnia, unspecified type [facility] Diagnosis Nocturia associated with benign prostatic hyperplasia- Primary [facility] Diagnosis Mixed hyperlipidemia- Primary Essential hypertension Unspecified essential hypertension B12 deficiency Other B-complex deficiencies Elevated blood sugar Other abnormal glucose Acquired hypothyroidism Unspecified hypothyroidism Vitamin D deficiency Unspecified vitamin D deficiency [facility] Diagnosis URI, acute Acute upper respiratory infections of unspecified site X-ray of lung, abnormal Other nonspecific abnormal finding of lung field [facility] Diagnosis Acute cough [facility] Diagnosis Bilateral leg pain- Primary Pain in limb Bilateral lower extremity edema Edema Benign localized prostatic hyperplasia with lower urinary tract symptoms (LUTS) Benign localized hyperplasia of prostate with urinary obstruction and other lower urinary tract symptoms (LUTS) [facility] Diagnosis Essential hypertension- Primary Unspecified essential hypertension Mixed hyperlipidemia [facility] Diagnosis Benign localized prostatic hyperplasia with lower urinary tract symptoms (LUTS) Benign localized hyperplasia of prostate with urinary obstruction and other lower urinary tract symptoms (LUTS) [facility] Diagnosis Hyperlipidemia, unspecified hyperlipidemia type documented [facility] Diagnosis Hyperlipidemia, unspecified hyperlipidemia type documented in this encounter [facility] note* Diagnosis Benign localized prostatic hyperplasia with lower urinary tract symptoms (LUTS) Benign localized hyperplasia of prostate with urinary obstruction and other lower urinary tract symptoms (LUTS) [facility] Diagnosis 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- Primary Aortic valve replaced Heart valve replaced by other means Mixed hyperlipidemia Essential hypertension Unspecified essential hypertension Carotid stenosis, asymptomatic, bilateral Hyperlipidemia, unspecified hyperlipidemia type SAUCEDA (dyspnea on exertion) Other dyspnea and respiratory abnormality documented in this encounter [facility] note* Diagnosis 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 Insomnia, unspecified type Chronic idiopathic constipation Unspecified constipation 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 documented [facility] Diagnosis Mixed hyperlipidemia documented in this encounter [facility] noteNo assessment information availablePortage [facility] Services Work Phone: Evaluation note* Diagnosis Medicare annual wellness visit, subsequent- Primary Routine general medical examination at a health care facility Mixed hyperlipidemia Essential hypertension Unspecified essential hypertension Acquired hypothyroidism Unspecified hypothyroidism Elevated blood sugar Other abnormal glucose Carotid stenosis, asymptomatic, bilateral 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 Aortic valve replaced [...] Sleep disturbance, unspecified [facility] Diagnosis Elevated hemoglobin A1c- Primary Other abnormal blood chemistry [facility] Diagnosis Insomnia, unspecified type [facility] Diagnosis Acute URI- Primary Acute upper respiratory infections of unspecified site [facility] Diagnosis Benign localized prostatic hyperplasia with lower urinary tract symptoms (LUTS) Benign localized hyperplasia of prostate with urinary obstruction and other lower urinary tract symptoms (LUTS) [facility] Diagnosis 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- Primary Aortic valve replaced Heart valve replaced by other means Essential hypertension Unspecified essential hypertension Mixed hyperlipidemia Carotid stenosis, asymptomatic, bilateral [facility] Author Mik Kilgore [facility] Note Date/Time January 19, 2025 6:07 am [facility] Medical Records Department [address] [place] [address] History & Physical Exam 01/19/25 0558 MR#: [id number] Acct: [id number] Name: SONIYA COOLEY Rep #:[id number] : 1940 84 From: Mik Kilgore [...] or chills and/or nausea vomiting or diarrhea. [facility] Medical History (Updated 01/19/25 @ 05:49 [...] artery disease Atherosclerosis of coronary artery of k[place] heart without angina pectoris Essential hypertension Contusion of finger without damage to nail Laceration of finger of left hand without foreign body without damage to nail Hemorrhoids Shortness of breath Neck pain on left side Tingling and numbness left fingers Home Medications ?Medication ?Instructions ?Recorded ?Last Taken ?Type afoymags-hse-vydim acid 0.4 1 ea PO DAILY 05/28/16 [...] (Auto) 36.7 L, Lymph % (Auto) 48.3 H,[place] % (Auto) 10.0, Eos % (Auto) 4.3, [...] Clarity Clear, Urine pH 6.0, Ur Specific [place] 1.015, Urine Protein Negative, Urine Glucose (UA) [...] evidence for acute brain abnormality. Reading Location: [place] [address] Head/Neck CTA 01/19/25 04:03 IMPRESSION: Atherosclerosis without high-grade stenosis. Reading Location: [place] [address] Chest X-Ray 01/19/25 04:45 IMPRESSION: Mild bilateral basilar atelectatic pulmonary changes. Reading Location: [place] [address] Assessment & Plan Assessment/Plan (1) H/O coronary [...] weight heparin Charges/Coding Visit Charges OBSV E&M: 08703 Observ/hosp same date L2 01/19/25 0607 <Electronically signed by Mik Kilgore MD> Cosigner Signature (if applicable): CC: Dr. Oniel Francis MD; Dr. Mik Kilgore MD~ Signed [facility] Work Phone: Hospital course Narrative No data available for this section [facility] Hospital Discharge instructions No data available for this section [facility] Hospital Discharge instructionsAdditional Instructions [facility]: [facility]: Hospital Discharge instructionsAdditional Instructions Thank [...] Jara for further outpatient evaluation and management. [facility] Work Phone: Hospital Discharge instructionsAdditional Instructions Follow-up with urology. Take all of your antibiotics. Return back to the ED if symptoms change or worsen.[facility] Work Phone: Progress note No data available for this section [facility] Reason for referral (narrative)* Outpatient Procedure (Routine) - Authorized Specialty Diagnoses / Procedures Referred By Contac t Referred To [facility] Diagnoses Aortic valve replaced Procedures ECG COMPLETE ECG ROUTINE ECG W/LEAST 12 LDS W/I&R Marj Mackey MD [address] [place] [address] [facility] [address] [place] [id number] Referral ID Status Reason Start Date Expiration Date Visits Requested Visits Authorized [id number] Authorized Auto-Generat ed Referral 04/23/2022 04/23/2023 1 1 [facility] for referral (narrative)* Outpatient Procedure (Routine) - Authorized Specialty Diagnoses / Procedures Referred By Contac t Referred To Contact [facility] Diagnoses Carotid stenosis, asymptomatic, bilateral Procedures US CAROTID ARTERIES CLAUDY VAS LAB DUPLEX SCAN EXTRACRANIAL ART COMPL BI STUDY Marj Mackey MD [address] [place] [address] [address] Referral ID Status Reason Start Date Expiration Date Visits Requested Visits Authorized [id number] Authorized Auto-Generat ed Referral 04/30/2022 08/04/2022 1 1 [facility] for referral (narrative)* Outpatient Procedure (Routine) - Authorized Specialty Diagnoses / Procedures Referred By Contac t Referred To Contact [facility] Diagnoses Carotid stenosis, asymptomatic, bilateral Procedures US CAROTID ARTERIES CLAUDY VAS LAB DUPLEX SCAN EXTRACRANIAL ART COMPL BI STUDY Marj Mackey MD [address] [place] [address] [address] Referral ID Status Reason Start Date Expiration Date Visits Requested Visits Authorized [id number] Authorized Auto-Generat ed Referral 3 06/23/2024 1 1 * Outpatient Procedure (Routine) - Authorized Specialty Diagnoses / Procedures Referred By Contac t Referred To Contact [facility] Diagnoses Aortic valve replaced SAUCEDA (dyspnea on exertion) Procedures ECHO ECHO TTHRC R-T 2D W/WOM-MODE COMPL SPEC&COLR D Marj Mackey MD [address] [place] [address] [address] Referral ID Status Reason Start Date Expiration Date Visits Requested Visits Authorized [id number] Authorized Auto-Generat ed Referral 3 06/23/2024 1 1 * Outpatient Procedure (Routine) - Pending Review Specialty Diagnoses / Procedures Referred By Contac t Referred To Contact [facility] Diagnoses Essential hypertension Hyperlipidemia, unspecified hyperlipidemia type Procedures ECG COMPLETE ECG ROUTINE ECG W/LEAST 12 LDS W/I&R Marj Mackey MD [address] [place] [address] [facility] [address] [place] [id number] Referral ID Status Reason Start Date Expiration Date Visits Requested Visits Authorized [id number] Pending Review Auto-Generat ed Referral 3 06/17/2024 1 1 [facility] for referral (narrative)* Outpatient Procedure (Routine) - Pending Review Specialty Diagnoses / Procedures Referred By Contac t Referred To Contact [facility] Diagnoses Screening for ischemic heart disease Procedures ECG COMPLETE ECG ROUTINE ECG W/LEAST 12 LDS W/I&R Marj Mackey MD [address] [place] [address] [facility] [id number] [place] [address] Referral ID Status Reason Start Date Expiration Date Visits Requested Visits Authorized [id number] Pending Review Auto-Generat ed Referral 12/18/2023 12/17/2024 1 1 [facility] for referral (narrative)* Diagnostic Procedure Only (Urgent) - Authorized Specialty Diagnoses / Procedures Referred By Contac t Referred To Contact [facility] Diagnoses Bilateral leg pain Bilateral lower extremity edema Procedures US DVT LOWER BILATERAL DUP-SCAN XTR VEINS COMPLETE BILATERAL STUDY Cristal Giron APRN.[employer] [address] [place] [address] [place] [address] Referral ID Status Reason Start Date Expiration Date Visits Requested Visits Authorized [id number] Authorized Auto-Generat ed Referral 05/07/2024 06/06/2025 1 1 [facility] for referral (narrative)* Outpatient Procedure (Routine) - Authorized Specialty Diagnoses / Procedures Referred By Contac t Referred To [facility] Diagnoses 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 Aortic valve replaced Procedures ECHO ECHO TTHRC R-T 2D W/WOM-MODE COMPL SPEC&COLR D Marj Mackey MD [address] [place] [address] [facility] [address] [place] [address] Referral ID Status Reason Start Date Expiration Date Visits Requested Visits Authorized [id number] Authorized Auto-Generat ed Referral 08/31/2024 08/31/2025 1 1 [facility] for referral (narrative)No reason for referral information availableGuilford Rallyware Services Work Phone: Summary Purpose Family History No Family History Records Found Relationship Condition Age at Onset Recorded Date/T dany mother Cardiac disease Unknown Malignant neoplasm of colon Unknown father Diabetes mellitus Unknown sister Cardiac disease Unknown brother Cardiac disease Unknown Advance Directives No Advanced Directives Records FoundDocuments on File Type Date Recorded Patient Service Person Expl anation Advance Directive(s) 07/03/2021 9:21 AM Advance Directive(s) 06/16/2021 11:32 AM Advance Directive(s) 10/17/2018 5:01 PM Advance Directive(s) 10/17/2018 5:00 PM Advance Directive(s) 09/24/2018 1:08 PM Advance Directive(s) 08/26/2018 7:31 AM Advance Directive(s) 09/05/2011 12:00 AM Advance Directive(s) 09/20/2006 12:00 AM Documents on File Type Date Recorded Patient Service Person Expl anation Advance Directive(s) 10/17/2018 5:00 PM Advance Directive(s) 09/05/2011 Advance Directive(s) 09/20/2006 Documents on File Type Date Recorded Patient Service Person Expl anation Advance Directive(s) 10/17/2018 5:00 PM Advance Directive(s) 09/05/2011 Advance Directive(s) 09/20/2006 Advance Directive Response Recorded Date/ Time Advance Directives Yes January 18 3:22pm Advance Directive Response Recorded Date/ Time Advance Directives Yes January 18 3:22pm Do you have a Healthcare Power of Review Engineer? No January 19, 2025 3:53am Advance Directive Response Recorded Date/ Time Advance Directives Yes January 18 3:22pm Do you have a Healthcare Power of Review Engineer? Yes January 19, 2025 7:30am Advance Directive Response Recorded Date/ Time Advance Directives Yes January 18 3:22pm Do you have a Healthcare Power of Review Engineer? Yes April 07, 2025 3:41pm Name of Medical Power of Review Engineer April 07, 2025 3:41pm Do you have a Healthcare Power of Review Engineer? Yes January 19, 2025 7:30am Advance Directive Response Recorded Date/ Time Advance Directives Yes January 18 3:22pm Do you have a Healthcare Power of Review Engineer? Yes April 07, 2025 3:41pm Name of Medical Power of Review Engineer April 07, 2025 3:41pm Do you have a Healthcare Power of Review Engineer? Yes January 19, 2025 7:30am Do you have a Healthcare Power of Review Engineer? Yes April 10, 2025 6:08am Advance Directive Response Recorded Date/ Time Advance Directives Yes January 18 3:22pm Do you have a Healthcare Power of Review Engineer? Yes April 07, 2025 3:41pm Name of Medical Power of Review Engineer April 07, 2025 3:41pm Do you have a Healthcare Power of Review Engineer? Yes April 10, 2025 6:56pm Name of Medical Power of Review Engineer matthew April 10, 2025 6:56pm Do you have a Healthcare Power of Review Engineer? Yes January 19, 2025 7:30am Do you have a Healthcare Power of Review Engineer? Yes April 10, 2025 6:08am Chief Complaint [...] abd & back pain April 10 6:03am Chief Complaint Admit Date XRAY January 18, 2025 3:23 pm neuro sx January 19, 2025 5:58 am TRANSIENT ISCHEMIC ATTACK January 19 6:07am TIA January 27, 2025 10:4 8am 30 DAY HOLTER January 27, 2025 12:2 0pm TURP April 07, 2025 1:41pm lower abd & back pain April 10 6:03am cárdenas April 10, 2025 6:47pm Additional Source Comments (unrecognized sect ion and content) No Status Records FoundNo Status Records FoundNo Status Records FoundNo Status Records FoundNo Status Records Found INFORMATION SOURCE (unrecogn ized section and content) DATE CREATED AUTHOR 10/18/2018 [facility] DATE CREATED AUTHOR AUTHOR'S ORGANIZ ATION 12/19/2020 [facility] DATE CREATED AUTHOR AUTHOR'S ORGANIZ ATION 02/26/2024 [facility] DATE CREATED AUTHOR AUTHOR'S ORGANIZ ATION 05/08/2025 [facility] DATE CREATED AUTHOR AUTHOR'S ORGANIZ ATION 06/10/2025 [facility] Source Comments (unrecognize d section and content) In the event this informatio n is protected by the Federal Confidentiality of Alcohol and Drug Abuse Patient Records regulations: The Federal rules restrict any use of the information to criminally investigate or prosecute any alcohol or drug abuse patient.[facility] the event this information is protected by the Federal Confidentiality of Alcohol and Drug Abuse Patient Records regulations: The Federal rules restrict any use of the information to criminally investigate or prosecute any alcohol or drug abuse patient.[facility] Hospital[facility] the event this information is protected by the Federal Confidentiality of Alcohol and Drug Abuse Patient Records regulations: The Federal rules restrict any use of the information to criminally investigate or prosecute any alcohol or drug abuse patient.[facility]In the event this information is protected by the Federal Confidentiality of Alcohol and Drug Abuse Patient Records regulations: The Federal rules restrict any use of the information to criminally investigate or prosecute any alcohol or drug abuse patient.[facility] HospitalIn the event this information is protected by the Federal Confidentiality of Alcohol and Drug Abuse Patient Records regulations: The Federal rules restrict any use of the information to criminally investigate or prosecute any alcohol or drug abuse patient.[facility] HospitalIn the event this information is protected by the Federal Confidentiality of Alcohol and Drug Abuse Patient Records regulations: The Federal rules restrict any use of the information to criminally investigate or prosecute any alcohol or drug abuse patient.[facility]In the event this information is protected by the Federal Confidentiality of Alcohol and Drug Abuse Patient Records regulations: The Federal rules restrict any use of the information to criminally investigate or prosecute any alcohol or drug abuse patient.[facility] HospitalIn the event this information is protected by the Federal Confidentiality of Alcohol and Drug Abuse Patient Records regulations: The Federal rules restrict any use of the information to criminally investigate or prosecute any alcohol or drug abuse patient.[facility]In the event this information is protected by the Federal Confidentiality of Alcohol and Drug Abuse Patient Records regulations: The Federal rules restrict any use of the information to criminally investigate or prosecute any alcohol or drug abuse patient.[facility] HospitalIn the event this information is protected by the Federal Confidentiality of Alcohol and Drug Abuse Patient Records regulations: The Federal rules restrict any use of the information to criminally investigate or prosecute any alcohol or drug abuse patient.[facility] HospitalIn the event this information is protected by the Federal Confidentiality of Alcohol and Drug Abuse Patient Records regulations: The Federal rules restrict any use of the information to criminally investigate or prosecute any alcohol or drug abuse patient.[facility] HospitalIn the event this information is protected by the Federal Confidentiality of Alcohol and Drug Abuse Patient Records regulations: The Federal rules restrict any use of the information to criminally investigate or prosecute any alcohol or drug abuse patient.[facility] HospitalIn the event this information is protected by the Federal Confidentiality of Alcohol and Drug Abuse Patient Records regulations: The Federal rules restrict any use of the information to criminally investigate or prosecute any alcohol or drug abuse patient.[facility] HospitalIn the event this information is protected by the Federal Confidentiality of Alcohol and Drug Abuse Patient Records regulations: The Federal rules restrict any use of the information to criminally investigate or prosecute any alcohol or drug abuse patient.[facility] HospitalIn the event this information is protected by the Federal Confidentiality of Alcohol and Drug Abuse Patient Records regulations: The Federal rules restrict any use of the information to criminally investigate or prosecute any alcohol or drug abuse patient.[facility] HospitalIn the event this information is protected by the Federal Confidentiality of Alcohol and Drug Abuse Patient Records regulations: The Federal rules restrict any use of the information to criminally investigate or prosecute any alcohol or drug abuse patient.[facility] HospitalIn the event this information is protected by the Federal Confidentiality of Alcohol and Drug Abuse Patient Records regulations: The Federal rules restrict any use of the information to criminally investigate or prosecute any alcohol or drug abuse patient.[facility] HospitalIn the event this information is protected by the Federal Confidentiality of Alcohol and Drug Abuse Patient Records regulations: The Federal rules restrict any use of the information to criminally investigate or prosecute any alcohol or drug abuse patient.[facility] HospitalIn the event this information is protected by the Federal Confidentiality of Alcohol and Drug Abuse Patient Records regulations: The Federal rules restrict any use of the information to criminally investigate or prosecute any alcohol or drug abuse patient.[facility] HospitalIn the event this information is protected by the Federal Confidentiality of Alcohol and Drug Abuse Patient Records regulations: The Federal rules restrict any use of the information to criminally investigate or prosecute any alcohol or drug abuse patient.[facility] HospitalIn the event this information is protected by the Federal Confidentiality of Alcohol and Drug Abuse Patient Records regulations: The Federal rules restrict any use of the information to criminally investigate or prosecute any alcohol or drug abuse patient.[facility] HospitalIn the event this information is protected by the Federal Confidentiality of Alcohol and Drug Abuse Patient Records regulations: The Federal rules restrict any use of the information to criminally investigate or prosecute any alcohol or drug abuse patient.[facility] HospitalIn the event this information is protected by the Federal Confidentiality of Alcohol and Drug Abuse Patient Records regulations: The Federal rules restrict any use of the information to criminally investigate or prosecute any alcohol or drug abuse patient.[facility] HospitalIn the event this information is protected by the Federal Confidentiality of Alcohol and Drug Abuse Patient Records regulations: The Federal rules restrict any use of the information to criminally investigate or prosecute any alcohol or drug abuse patient.[facility] HospitalIn the event this information is protected by the Federal Confidentiality of Alcohol and Drug Abuse Patient Records regulations: The Federal rules restrict any use of the information to criminally investigate or prosecute any alcohol or drug abuse patient.[facility] HospitalIn the event this information is protected by the Federal Confidentiality of Alcohol and Drug Abuse Patient Records regulations: The Federal rules restrict any use of the information to criminally investigate or prosecute any alcohol or drug abuse patient.[facility] HospitalIn the event this information is protected by the Federal Confidentiality of Alcohol and Drug Abuse Patient Records regulations: The Federal rules restrict any use of the information to criminally investigate or prosecute any alcohol or drug abuse patient.[facility] HospitalIn the event this information is protected by the Federal Confidentiality of Alcohol and Drug Abuse Patient Records regulations: The Federal rules restrict any use of the information to criminally investigate or prosecute any alcohol or drug abuse patient.[facility] HospitalIn the event this information is protected by the Federal Confidentiality of Alcohol and Drug Abuse Patient Records regulations: The Federal rules restrict any use of the information to criminally investigate or prosecute any alcohol or drug abuse patient.[facility] HospitalIn the event this information is protected by the Federal Confidentiality of Alcohol and Drug Abuse Patient Records regulations: The Federal rules restrict any use of the information to criminally investigate or prosecute any alcohol or drug abuse patient.[facility] HospitalIn the event this information is protected by the Federal Confidentiality of Alcohol and Drug Abuse Patient Records regulations: The Federal rules restrict any use of the information to criminally investigate or prosecute any alcohol or drug abuse patient.[facility] HospitalIn the event this information is protected by the Federal Confidentiality of Alcohol and Drug Abuse Patient Records regulations: The Federal rules restrict any use of the information to criminally investigate or prosecute any alcohol or drug abuse patient.[facility] HospitalIn the event this information is protected by the Federal Confidentiality of Alcohol and Drug Abuse Patient Records regulations: The Federal rules restrict any use of the information to criminally investigate or prosecute any alcohol or drug abuse patient.[facility] HospitalIn the event this information is protected by the Federal Confidentiality of Alcohol and Drug Abuse Patient Records regulations: The Federal rules restrict any use of the information to criminally investigate or prosecute any alcohol or drug abuse patient.[facility] HospitalIn the event this information is protected by the Federal Confidentiality of Alcohol and Drug Abuse Patient Records regulations: The Federal rules restrict any use of the information to criminally investigate or prosecute any alcohol or drug abuse patient.[facility] HospitalIn the event this information is protected by the Federal Confidentiality of Alcohol and Drug Abuse Patient Records regulations: The Federal rules restrict any use of the information to criminally investigate or prosecute any alcohol or drug abuse patient.[facility] HospitalIn the event this information is protected by the Federal Confidentiality of Alcohol and Drug Abuse Patient Records regulations: The Federal rules restrict any use of the information to criminally investigate or prosecute any alcohol or drug abuse patient.[facility] HospitalIn the event this information is protected by the Federal Confidentiality of Alcohol and Drug Abuse Patient Records regulations: The Federal rules restrict any use of the information to criminally investigate or prosecute any alcohol or drug abuse patient.[facility] HospitalIn the event this information is protected by the Federal Confidentiality of Alcohol and Drug Abuse Patient Records regulations: The Federal rules restrict any use of the information to criminally investigate or prosecute any alcohol or drug abuse patient.[facility] HospitalIn the event this information is protected by the Federal Confidentiality of Alcohol and Drug Abuse Patient Records regulations: The Federal rules restrict any use of the information to criminally investigate or prosecute any alcohol or drug abuse patient.[facility] HospitalIn the event this information is protected by the Federal Confidentiality of Alcohol and Drug Abuse Patient Records regulations: The Federal rules restrict any use of the information to criminally investigate or prosecute any alcohol or drug abuse patient.[facility] HospitalIn the event this information is protected by the Federal Confidentiality of Alcohol and Drug Abuse Patient Records regulations: The Federal rules restrict any use of the information to criminally investigate or prosecute any alcohol or drug abuse patient.[facility] HospitalIn the event this information is protected by the Federal Confidentiality of Alcohol and Drug Abuse Patient Records regulations: The Federal rules restrict any use of the information to criminally investigate or prosecute any alcohol or drug abuse patient.[facility] HospitalIn the event this information is protected by the Federal Confidentiality of Alcohol and Drug Abuse Patient Records regulations: The Federal rules restrict any use of the information to criminally investigate or prosecute any alcohol or drug abuse patient.[facility] HospitalIn the event this information is protected by the Federal Confidentiality of Alcohol and Drug Abuse Patient Records regulations: The Federal rules restrict any use of the information to criminally investigate or prosecute any alcohol or drug abuse patient.[facility] HospitalIn the event this information is protected by the Federal Confidentiality of Alcohol and Drug Abuse Patient Records regulations: The Federal rules restrict any use of the information to criminally investigate or prosecute any alcohol or drug abuse patient.[facility] HospitalIn the event this information is protected by the Federal Confidentiality of Alcohol and Drug Abuse Patient Records regulations: The Federal rules restrict any use of the information to criminally investigate or prosecute any alcohol or drug abuse patient.[facility] HospitalIn the event this information is protected by the Federal Confidentiality of Alcohol and Drug Abuse Patient Records regulations: The Federal rules restrict any use of the information to criminally investigate or prosecute any alcohol or drug abuse patient.[facility] HospitalIn the event this information is protected by the Federal Confidentiality of Alcohol and Drug Abuse Patient Records regulations: The Federal rules restrict any use of the information to criminally investigate or prosecute any alcohol or drug abuse patient.[facility] HospitalIn the event this information is protected by the Federal Confidentiality of Alcohol and Drug Abuse Patient Records regulations: The Federal rules restrict any use of the information to criminally investigate or prosecute any alcohol or drug abuse patient.[facility] HospitalIn the event this information is protected by the Federal Confidentiality of Alcohol and Drug Abuse Patient Records regulations: The Federal rules restrict any use of the information to criminally investigate or prosecute any alcohol or drug abuse patient.[facility] HospitalIn the event this information is protected by the Federal Confidentiality of Alcohol and Drug Abuse Patient Records regulations: The Federal rules restrict any use of the information to criminally investigate or prosecute any alcohol or drug abuse patient.[facility] HospitalIn the event this information is protected by the Federal Confidentiality of Alcohol and Drug Abuse Patient Records regulations: The Federal rules restrict any use of the information to criminally investigate or prosecute any alcohol or drug abuse patient.[facility] HospitalIn the event this information is protected by the Federal Confidentiality of Alcohol and Drug Abuse Patient Records regulations: The Federal rules restrict any use of the information to criminally investigate or prosecute any alcohol or drug abuse patient.[facility] HospitalIn the event this information is protected by the Federal Confidentiality of Alcohol and Drug Abuse Patient Records regulations: The Federal rules restrict any use of the information to criminally investigate or prosecute any alcohol or drug abuse patient.[facility] HospitalIn the event this information is protected by the Federal Confidentiality of Alcohol and Drug Abuse Patient Records regulations: The Federal rules restrict any use of the information to criminally investigate or prosecute any alcohol or drug abuse patient.[facility] HospitalIn the event this information is protected by the Federal Confidentiality of Alcohol and Drug Abuse Patient Records regulations: The Federal rules restrict any use of the information to criminally investigate or prosecute any alcohol or drug abuse patient.[facility] HospitalIn the event this information is protected by the Federal Confidentiality of Alcohol and Drug Abuse Patient Records regulations: The Federal rules restrict any use of the information to criminally investigate or prosecute any alcohol or drug abuse patient.[facility] HospitalIn the event this information is protected by the Federal Confidentiality of Alcohol and Drug Abuse Patient Records regulations: The Federal rules restrict any use of the information to criminally investigate or prosecute any alcohol or drug abuse patient.[facility] HospitalIn the event this information is protected by the Federal Confidentiality of Alcohol and Drug Abuse Patient Records regulations: The Federal rules restrict any use of the information to criminally investigate or prosecute any alcohol or drug abuse patient.[facility] HospitalIn the event this information is protected by the Federal Confidentiality of Alcohol and Drug Abuse Patient Records regulations: The Federal rules restrict any use of the information to criminally investigate or prosecute any alcohol or drug abuse patient.[facility] HospitalIn the event this information is protected by the Federal Confidentiality of Alcohol and Drug Abuse Patient Records regulations: The Federal rules restrict any use of the information to criminally investigate or prosecute any alcohol or drug abuse patient.[facility] Hospital[facility] the event this information is protected by the Federal Confidentiality of Alcohol and Drug Abuse Patient Records regulations: The Federal rules restrict any use of the information to criminally investigate or prosecute any alcohol or drug abuse patient.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 Jara Care [...] Attending Provider Active Start: January 19, 2025 Nursing Clinical Director Relationship Specialty Start Date End Date Oniel Francis MD [address] [place] [address] PCP - General Family Practice 05/16/15 No, Referral Referring 10/17/18 Nursing Clinical Director Relationship Specialty Start Date End Date Oniel Francis MD [address] [facility] [place] [address] PCP - General Family Practice 05/16/15 No, Referral Referring 10/17/18 Nursing Clinical Director Relationship Specialty Start Date End Date Oniel Francis MD [address] [place] [address] PCP - General Family Practice 05/16/15 No, Referral Referring 10/17/18 Nursing Clinical Director Relationship Specialty Start Date End Date Oniel Francis MD [address] [facility] [place] [address] PCP - General Family Practice 05/16/15 No, Referral Referring 10/17/18 Nursing Clinical Director Relationship Specialty Start Date End Date Oniel Francis MD [address] [facility] [place] [address] PCP - General Family Practice 05/16/15 No, Referral Referring 10/17/18 Nursing Clinical Director Relationship Specialty Start Date End Date Oniel Francis MD [address] [facility] [place] [address] PCP - General Family Medicine 05/16/15 No, Referral Referring 10/17/18 Nursing Clinical Director Relationship Specialty Start Date End Date Oniel Francis MD [address] [facility] [place] [address] PCP - General Family Medicine 05/16/15 No, Referral Referring 10/17/18 Nursing Clinical Director Relationship Specialty Start Date End Date Oniel Francis MD [address] [facility] [place] [address] PCP - General Family Medicine 05/16/15 No, Referral Referring 10/17/18 Nursing Clinical Director Relationship Specialty Start Date End Date Oniel Francis MD [address] [facility] [place] [address] PCP - General Family Medicine 05/16/15 No, Referral Referring 10/17/18 Nursing Clinical Director Relationship Specialty Start Date End Date Oniel Francis MD [address] [facility] [place] [address] PCP - General Family Medicine 05/16/15 No, Referral Referring 10/17/18 Nursing Clinical Director Relationship Specialty Start Date End Date Oniel Francis MD [address] [facility] [place] [address] PCP - General Family Medicine 05/16/15 No, Referral Referring 10/17/18 Nursing Clinical Director Relationship Specialty Start Date End Date Oniel Francis MD [address] [facility] [place] [address] PCP - General Family Medicine 05/16/15 No, Referral Referring 10/17/18 Nursing Clinical Director Relationship Specialty Start Date End Date Oniel Francis MD [address] [facility] [place] [address] PCP - General Family Medicine 05/16/15 No, Referral Referring 10/17/18 Nursing Clinical Director Relationship Specialty Start Date End Date Oniel Francis MD [address] [facility] [place] [address] PCP - General Family Medicine 05/16/15 No, Referral Referring 10/17/18 Nursing Clinical Director Relationship Specialty Start Date End Date Oniel Francis MD [address] [facility] [place] [address] PCP - General Family Medicine 05/16/15 No, Referral Referring 10/17/18 Nursing Clinical Director Relationship Specialty Start Date End Date Oniel Francis MD [address] [facility] [place] [address] PCP - General Family Medicine 05/16/15 No, Referral Referring 10/17/18 Nursing Clinical Director Relationship Specialty Start Date End Date Oniel Francis MD [address] [facility] [place] [address] PCP - General Family Medicine 05/16/15 No, Referral Referring 10/17/18 Nursing Clinical Director Relationship Specialty Start Date End Date Oniel Francis MD [address] [facility] [place] [address] PCP - General Family Medicine 05/16/15 No, Referral Referring 10/17/18 Nursing Clinical Director Relationship Specialty Start Date End Date Oniel Francis MD [address] [facility] [place] [address] PCP - General Family Medicine 05/16/15 No, Referral Referring 10/17/18 Nursing Clinical Director Relationship Specialty Start Date End Date Oniel Francis MD [address] [facility] [place] [address] PCP - General Family Medicine 05/16/15 No, Referral Referring 10/17/18 Nursing Clinical Director Relationship Specialty Start Date End Date Oniel Francis MD [address] [facility] [place] [address] PCP - General Family Medicine 05/16/15 No, Referral Referring 10/17/18 Nursing Clinical Director Relationship Specialty Start Date End Date Oniel Francis MD [address] [facility] [place] [address] PCP - General Family Medicine 05/16/15 No, Referral Referring 10/17/18 Nursing Clinical Director Relationship Specialty Start Date End Date Oniel Francis MD [address] [facility] [place] [address] PCP - General Family Medicine 05/16/15 No, Referral Referring 10/17/18 Nursing Clinical Director Relationship Specialty Start Date End Date Oniel Francis MD [address] [facility] [place] [address] PCP - General Family Medicine 05/16/15 No, Referral Referring 10/17/18 Nursing Clinical Director Relationship Specialty Start Date End Date Oniel Francis MD [address] [facility] [place] [address] PCP - General Family Medicine 05/16/15 No, Referral Referring 10/17/18 Nursing Clinical Director Relationship Specialty Start Date End Date Oniel Francis MD [address] [facility] [place] [address] PCP - General Family Medicine 05/16/15 No, Referral Referring 10/17/18 Nursing Clinical Director Relationship Specialty Start Date End Date Oniel Francis MD [address] [facility] [place] [address] PCP - General Family Medicine 05/16/15 No, Referral Referring 10/17/18 Nursing Clinical Director Relationship Specialty Start Date End Date Oniel Francis MD [address] [facility] [place] [address] PCP - General Family Medicine 05/16/15 No, Referral Referring 10/17/18 Nursing Clinical Director Relationship Specialty Start Date End Date Oniel Francis MD [address] [facility] [place] [address] PCP - General Family Medicine 05/16/15 No, Referral Referring 10/17/18 Nursing Clinical Director Relationship Specialty Start Date End Date Oniel Francis MD [address] [facility] [place] [address] PCP - General Family Medicine 05/16/15 No, Referral Referring 10/17/18 Nursing Clinical Director Relationship Specialty Start Date End Date Oniel Francis MD [address] [place] [address] PCP - General Family Medicine 05/16/15 No, Referral Referring 10/17/18 Nursing Clinical Director Relationship Specialty Start Date End Date Oniel Francis MD [address] [place] [address] PCP - General Family Medicine 05/16/15 No, Referral Referring 10/17/18 Nursing Clinical Director Relationship Specialty Start Date End Date Oniel Francis MD [address] [facility] [place] [address] PCP - General Family Medicine 05/16/15 No, Referral Referring 10/17/18 Nursing Clinical Director Relationship Specialty Start Date End Date Oniel Francis MD [address] [facility] [place] [address] PCP - General Family Medicine 05/16/15 No, Referral Referring 10/17/18 Cristal Giron APRN.WAREHOUSE SHIPPING ASSOCIATE [address] [facility] [address] [facility] 07/11/24 Ella Valdovinos PA-C [address] [place], [place] [address]32[address] [facility] 07/11/24 Nursing Clinical Director Relationship Specialty Start Date End Date Oniel Francis MD [address] [place], [place] 6[address]255 [phone] PCP - General Family Medicine 05/16/15 No, Referral Referring 10/17/18 Cristal Giron APRN.WAREHOUSE SHIPPING ASSOCIATE [address] [place] [address] [facility] 07/11/24 Ella Valdovinos PA-C [address] [place] [address] [facility] 07/11/24 Nursing Clinical Director Relationship Specialty Start Date End Date Oniel Francis MD [address] [place] [address] PCP - General Family Medicine 05/16/15 No, Referral Referring 10/17/18 Cristal Giron APRN.WAREHOUSE SHIPPING ASSOCIATE [address] [place] [address] [facility] 07/11/24 Ella Valdovinos PA-C [address] [place] [address] [facility] 07/11/24 Nursing Clinical Director Relationship Specialty Start Date End Date Oniel Francis MD [address] [place] [address] PCP - General Family Medicine 05/16/15 No, Referral Referring 10/17/18 Cristal Giron APRN.WAREHOUSE SHIPPING ASSOCIATE [address] [place], [place] 139385 [phone] [facility] 07/11/24 Ella Valodvinos PA-C [address] [place], [place] 493646 [phone] [facility] 07/11/24 Nursing Clinical Director Relationship Specialty Start Date End Date Oniel Francis MD [address] [place] [address] PCP - General Family Medicine 05/16/15 No, Referral Referring 10/17/18 Cristal Giron APRN.WAREHOUSE SHIPPING ASSOCIATE [address] [place] [address] [facility] 07/11/24 Ella Valdovinos PA-C [address] [place], [place] 601384 [phone] [facility] 07/11/24 Nursing Clinical Director Relationship Specialty Start Date End Date Oniel Francis MD [address] [place] [address] PCP - General Family Medicine 05/16/15 No, Referral Referring 10/17/18 Cristal Giron APRN.WAREHOUSE SHIPPING ASSOCIATE [address] [place], [place] 3828[address] [phone] [facility] 07/11/24 Ella Valdovinos PA-C [address] [place] [address] [facility] 07/11/24 Nursing Clinical Director Relationship Specialty [place] [address] [place] [address] PCP - General Family Medicine 05/16/15 No, Referral Referring 10/17/18 Cristal Giron, ANGIE.WAREHOUSE SHIPPING ASSOCIATE [address] [place] [address] [phone] [facility] 07/11/24 Ella Valdovinos PA-C [address] [place] [address] [facility] 07/11/24 Nursing Clinical Director Relationship Specialty Start Date End Date Oniel Francis MD [address] [place] [address] PCP - General Family Medicine 11/09/24 No, Referral Referring 10/17/18 Cristal Giron, ANGIE.WAREHOUSE SHIPPING ASSOCIATE [address] [place] [address] [phone] [facility] 07/11/24 Ella Valdovinos PA-C [facility] [place], [place] 769631 [facility] 07/11/24 Team Status: Active Member Role [...] Provider Active S tart: January 19, 2025 Nursing Clinical Director Relationship Specialty Start Date End Date Oniel Francis MD [address] [place] [address] PCP - General Family Medicine 11/09/24 No, Referral Referring 10/17/18 Cristal Giron, LOADING MACHINE OPERATOR.WAREHOUSE SHIPPING ASSOCIATE [address] [place] [phone] [facility] 01/04/25 Ella Valdovinos PA-C [address] [place] [address] [phone] [facility] 01/04/25 Nursing Clinical Director Relationship Specialty Start Date End Date Oniel Francis MD [address] [place] [address] PCP - General Family Medicine 11/09/24 No, Referral Referring 10/17/18 Cristal Giron, ANGIE.WAREHOUSE SHIPPING ASSOCIATE [address] [place] [phone] [facility] 01/04/25 Ella Valdovinos PA-C [facility] [place] [address] [facility] 01/04/25 Nursing Clinical Director Relationship Specialty Start Date End Date Oniel Francis MD [address] [place] [address] PCP - General Family Medicine 11/09/24 No, Referral Referring 10/17/18 Cristal Giron APRN.WAREHOUSE SHIPPING ASSOCIATE [facility] [place] [address] [facility] 01/04/25 Ella Valdovinos PA-C [facility] [place] [address] [facility] 01/04/25 Nursing Clinical Director Relationship Specialty Start Date End Date Oniel Francis MD [address] [place] [address] PCP - General Family Medicine 11/09/24 No, Referral Referring 10/17/18 Cristal Giron APRN.WAREHOUSE SHIPPING ASSOCIATE [address] [place] [phone] [facility] 01/04/25 Ella Valdovinos PA-C [facility] [place] [address] [facility] 01/04/25 Nursing Clinical Director Relationship Specialty Start Date End Date Oniel Francis MD [address] [place] [address] PCP - General Family Medicine 11/09/24 No, Referral Referring 10/17/18 Cristal Giron APRN.WAREHOUSE SHIPPING ASSOCIATE [address] [place] [phone] [facility] 01/04/25 Ella Valdovinos PA-C [address] [place] [address] [facility] 01/04/25 Nursing Clinical Director Relationship Specialty Start Date End Date Oniel Francis MD [address] [place] [address] PCP - General Family Medicine 11/09/24 No, Referral Referring 10/17/18 Cristal Giron APRN.WAREHOUSE SHIPPING ASSOCIATE [facility] [place] [address] [facility] 01/04/25 Ella Valdovinos PA-C [address] [place] [address] [facility] 01/04/25 Nursing Clinical Director Relationship Specialty Start Date End Date Oniel Francis MD [address] [place] [address] PCP - General Family Medicine 11/09/24 No, Referral Referring 10/17/18 Cristal Giron, ANGIE.WAREHOUSE SHIPPING ASSOCIATE [address] [place] [address] [facility] 01/04/25 Ella Valdovinos PA-C [address] [place] [address] [facility] 01/04/25 Team Status: Active Member [...] February 23, 2025 End: February 23, 2025 Nursing Clinical Director Relationship Specialty Start Date End Date Oniel Francis MD [address] [place] [address] PCP - General Family Medicine 11/09/24 No, Referral Referring 10/17/18 Cristal Giron, LOADING MACHINE OPERATOR.WAREHOUSE SHIPPING ASSOCIATE [facility] [place] [address] [facility] 01/04/25 Ella Valdovinos PA-C [address] [place] [phone] Joiner Hel[facility] 01/04/25 Nursing Clinical Director Relationship Specialty Start Date End Date Oniel Francis MD [address] [place] [address] PCP - General Family Medicine 11/09/24 No, Referral Referring 10/17/18 Cristal Giron, LOADING MACHINE OPERATOR.WAREHOUSE SHIPPING ASSOCIATE [address] [place] [phone] [facility] 01/04/25 Ella Valdovinos PA-C [facility] [place] [address] [facility] Team Status: Active Member Role/Relationship Status [...] End: April 10, 2025 Dr. Ronn Olson , Emergency Provider Active Start: April 10, 2025 End: April 10, 2025 Team Status: Inactive Member Role/Relationship Status Dates Dr. Oniel Francis MD Primary Care Provider Active Start: April 10, 2025 End: April 10, 2025 Dr. Juno Bradley DO Emergency Provider Activ e Start: April 10, 2025 End: April 10, 2025 Nursing Clinical Director Relationship Specialty Start Date End Date Oniel Francis MD [address] [place] [phone] PCP - General Family Medicine 11/09/24 No, Referral Referring 10/17/18 Cristal Giron APRN.CNP [address] [place], [place] [phone] [facility] Family Medicine 01/04/25 Ella Valdovinos PA-C [address] [place], [place] [phone] [facility] 01/04/25 Goals (unrecognized section and content) Goals may [...] BE BASED ON THE PRIMARY CLINICAL RECORDS. [facility] [employer] [facility]. provides no warranty or guarantee of the accuracy or completeness of information in this document.
== END | disposition home or self-care (01) ==
PROVIDERS: PCP Family Medicine; Referring Provider Family Medicine; Visit Provider Family Medicine
DX: G47.9 Sleep disorder, unspecified (principal)
CPT/HCPCS: 95810